=== PATIENT | male | born 1945 | race Caucasian/White ===

== ENCOUNTER → 2016-04-28 | Outpatient (CLI) | payer OTHER ==
[~2016-04-28] MED LIST: ADVIN10/60 INH; ADVIN50/60 INH; AGG PO; ALPR-411 PO; ASPI81TA28 PO; ATOR80TA PO; BUSP-8 PO; BUSP15TA70 PO; CALCTAB5 PO; FLUO10CA48 PO; FLUO20CA20 PO; FURO40TA3 PO; IPRA1AER2 INH; ISOS60TA PO; LISI-725 PO; METF-384 PO; MULT-506 PO; OMEG10007 PO; OMEP20CA9 PO; POTA1TAB PO; PSYL55.43 PO; ROSU40TA PO; TIOTCAP INH; [UNRECOGNIZED DRUG - CODE] PO
[2016-04-28 10:01] LABS: BLOOD UREA NITROGEN 21 mg/dl (7-18); BUN/CREATININE RATIO 17.8 (10-20); CALCIUM 9.5 mg/dl (8.5-10.1); CARBON DIOXIDE 25 mmol/L (21-32); CHLORIDE 107 mmol/L (98-107); GLUCOSE 99 mg/dl (70-99); SODIUM 142 mmol/L (136-145)
== END | disposition home or self-care (01) ==
LOC: C.LAB1850 08:45
PROVIDERS: ATTEND Internal Medicine Pulmonary Disease
DX: R06.09 Other forms of dyspnea (principal)

== ENCOUNTER → 2016-05-11 | Outpatient (CLI) | payer OTHER ==
--- NOTE | 2016-05-12 16:42 | DIAGNOSTIC IMAGING REPORT ---
PET/CT HISTORY: PULMONARY NODULE TECHNIQUE: PET/CT was performed from the base of the skull through the pelvis following the intravenous administration of 14.4 mCi of F18-FDG. Non-contrast CT imaging was performed over the same range without breath-hold for attenuation correction of PET images and anatomic correlation, but not for primary interpretation as it is not of standard diagnostic quality. CT DOSE: 744.05 mGycm COMPARISON: Chest CT 05/01/2016. FINDINGS: HEAD AND NECK: There is no FDG-avid disease or significant lymphadenopathy in the imaged portions of the head and the neck. Scattered areas of FDG uptake within the nasopharynx/oropharynx, and right carotid bifurcation is likely physiologic. CHEST: There is again noted an irregular groundglass 2.4 x 2.0 cm density within the right lower lobe. Stable 7 mm nodule within the left lower lobe on image 92. The 3 mm subpleural nodule within the right lower lobe on image 98 remains stable. A 2 mm right apical pulmonary nodule on image 67 remains stable. Stable 8 mm groundglass nodule within the left lower lobe on image 121. None of these nodules demonstrate abnormal FDG uptake. Emphysema. A few scattered punctate calcified granulomas. ABDOMEN/PELVIS: Below the diaphragm, tracer is distributed physiologically in the gastrointestinal and genitourinary tracts. There is no significant lymphadenopathy and no FDG-avid disease. Punctate stone within the right kidney. No hydronephrosis. No adrenal gland masses. A 3.6 cm infrarenal abdominal aortic aneurysm. Tiny fat-containing right inguinal hernia. Colonic diverticulosis. Small fat-containing suprasellar hernia. MUSCULOSKELETAL: There is no FDG-avid or destructive bone lesion. Patchy sclerosis within the right femoral head consistent with avascular necrosis. IMPRESSION: 1. No change in the pulmonary nodules as described above. These do not demonstrate abnormal FDG uptake. However, the majority of these are likely too small to characterize by PET imaging. Continued chest CT follow-up as described on the prior study is recommended. In addition, the dominant 2.4 x 2.0 cm groundglass opacity within the right lower lobe does not demonstrate FDG uptake. Regardless, this remains suspicious for a low-grade adenocarcinoma. Typically, these may not demonstrate FDG uptake. Therefore, bronchoscopy should be considered for further evaluation. 2. A 3.6 cm infrarenal abdominal aortic aneurysm. 3. Avascular necrosis within the right femoral head. Electronically signed by: Keyur Neumann M.D. 05/12/2016 4:40 PM Dictated Date/Time: 05/11/2016 1:48 PM
== END | disposition home or self-care (01) ==
LOC: C.PET 07:23
PROVIDERS: ATTEND Internal Medicine Pulmonary Disease
DX: R91.8 Other nonspecific abnormal finding of lung field (principal); I71.4 Abdominal aortic aneurysm, without rupture; M87.051 Idiopathic aseptic necrosis of right femur

== ENCOUNTER → 2016-05-20 | Day surgery (SDC) | payer OTHER ==
[2016-05-12 14:49] VITALS: Ht 177.8 cm; Wt 96.4 kg
[~2016-05-20] VITALS: Ht 177.8 cm; Wt 96.4 kg
[~2016-05-20] MED LIST changes: -ADVIN10/60 INH; -BUSP15TA70 PO; +FENTANYL CITRATE INJ 50 MCG/1 ML 2 ML VIAL ONE; +LIDOCAINE HCL 2% 2 ML VIAL (20MG/ML) ONE; +MIDAZOLAM HCL 1 MG/ML 2ML VIAL ONE; +PHENYLEPHRINE 100MCG/ML 5ML SYR ONE; +PROPOFOL IV EMULSION 10 MG/ML 20 ML VIAL IV ONE; -ROSU40TA PO; +SODIUM CHLORIDE 0.9% 500ML 500 ML IV ONE; -[UNRECOGNIZED DRUG - CODE] PO
--- NOTE | 2016-05-20 08:31 | Endo History and Physical ---
History & Physical Date of Service: May 20, 2016. Chief Complaint: Hx colon polyps Referring Physician: Jose Barrios History of Present Illness 70 yo presenting for polyp surveillance Past Surgical History Hx Cardiac Surgery: Yes (CARDIAC CATH-NO [id number] YRS AGO) Hx Internal Defibrillator: No Hx Pacemaker: No Hx Abdominal Surgery: Yes (UMBILICAL HERNIA REPAIR) Hx of Implantable Prosthesis: No Hx Post-Op Nausea and Vomiting: No Hx Cancer Surgery: No Hx Thoracic Surgery: No Hx Orthopedic: Yes (OPEN L SHOULDER SURG, OPEN R SHOULDER SURG) Hx Urinary Tract Surgery: No Family History Colon CA Social History Smoking Status: Current Every Day Smoker Hx Substance Use: No Hx Alcohol Use: No Allergies Coded Allergies: Acetaminophen (Verified Adverse Reaction, Mild, HEADACHE, 05/15/16) Uncoded Allergies: FRESH ANIMAL BLOOD (Adverse Reaction, Unknown, EYES WILL SWELL/CLOSE SHUT WHEN A FEW FEET AWAY, 05/15/16) Current Medications Reported Home Medications Medications Dose Route/Sig Max Daily Dose Days Date Category Dose Instructions Fluoxetine (Fluoxetine Hcl (Pmdd)) 20 Mg Cap 1 Cap PO QPM 90 05/15/16 Reported Lipitor (Atorvastatin Calcium) 80 Mg Tab 80 Mg PO QAM 05/12/16 Reported TAKE AM SURGERY SIP WATER [place]-3 (Fish Oil) 1 Ea Cap 1 Cap PO QAM 05/12/16 Reported STOP 7-10 DAYD BEFORE SURG Buspirone Hcl 10 Mg Tab 7.5 Mg PO HS 05/12/16 Reported Buspirone Hcl 10 Mg Tab 15 Mg PO QAM 05/12/16 Reported TAKE AM SURGERY SIP WATER Advair Diskus 500/50 60 Dose (Fluticasone Prop/Salmeterol) 1 Ea Aerp 1 Puff INH BID 05/12/16 Reported TAKE AM SURG Prozac (Fluoxetine HCl) 10 Mg Cap 10 Mg PO QAM 11/24/13 Reported TAKE AM SURGERY SIP WATER Potassium Gluconate 595 Mg Tab 1 Tab PO QAM 11/24/13 Reported HOLD AM SURG Combivent Respimat (Ipratropium-Albuterol) 1 Aer Aer 2 Puffs INH QID PRN 05/12/13 Reported USE AM SURG IF NEEDED Imdur (Isosorbide Mononitrate) 60 Mg Tab 60 Mg PO QAM 05/12/13 Reported TAKE AM SURG SIP WATER Lasix (Furosemide) 40 Mg Tab 40 Mg PO QAM 05/04/13 Reported HOLD AM SURG Prilosec (Omeprazole) 20 Mg Cap 20 Mg PO QAM 05/04/13 Reported TAKE AM SURG SIP WATER Aggrenox 200MG/25MG (Aspirin-Dipyridamole 25MG/200MG) 1 Cap Cap 1 Cap PO QAM 05/04/13 Reported PT WILL FOLLOW INSTRUCTIONS FROM SURGEON Glucophage (Metformin Hcl) 1,000 Mg Tab 1,000 Mg PO QAM 05/04/13 Reported HOLD 48 HRS BEFORE SURG Spiriva Handihaler (Tiotropium Ashton) 18 Mcg/ Aerp 1 Cap INH QAM 05/04/13 Reported TAKE AM SURG Xanax (Alprazolam) 0.5 Mg Tab 0.5 Mg PO Q6H PRN 05/04/13 Reported MAY TAKE AM SURGERY SIP WATER Metamucil Powder (Psyllium Hydrophilic Mucilloid) Powd 1 Cap PO QAM 05/04/13 Reported Aspirin Ec (Aspirin) 81 Mg Tab 81 Mg PO QAM 05/04/13 Reported PT WILL FOLLOW INSTRUCTIONS FROM SURGEON Zestril (Lisinopril) 20 Mg Tab 20 Mg PO QAM 11/19/05 Reported HOLD AM SURG Caltrate (Calcium) 600 Mg Tab 600 Mg PO QAM 11/19/05 Reported Multivitamin (Multivitamins) Tab 1 Tab PO QAM 11/19/05 Reported NOTE: WITH LYCOPENE Vital Signs Weight (Kilograms): 96.36 Height (Feet): 5 Height (Inches): 10 Physical Exam General Appearance: WD/WN, no apparent distress Respiratory/Chest: Respiratory effort: no dyspnea Auscultation: breath sounds normal, CTA except as noted, no wheezing Cardiovascular: Apical Impulse: not displaced Heart Auscultation: RRR, normal S1, normal S2 Abdomen: Bowel Sounds: normal Inspection & Palpation: soft, non-distended, no tenderness, guarding & rebound Assessment and Plan 70 yo presenting for colon polyp f/u for colonoscopy
--- NOTE | 2016-05-20 09:10 | Discharge Instructions ---
Endoscopy Patient Instructions Date / Procedure(s) Performed May 20, 2016. Colonoscopy Allergy Information Coded Allergies: Acetaminophen (Verified Adverse Reaction, Mild, HEADACHE, 05/15/16) Uncoded Allergies: FRESH ANIMAL BLOOD (Adverse Reaction, Unknown, EYES WILL SWELL/CLOSE SHUT WHEN A FEW FEET AWAY, 05/15/16) Discharge Date / Findings May 20, 2016. Multiple polyps Suboptimal prep Medication Instructions Stopped Medication(s): Metformin, vitamins Provider Instructions Activity Restrictions - No exercising or heavy lifting for 24 hours. - Do not drink alcohol the day of the procedure. - Do not drive a car or operate machinery until the day after the procedure. - Do not make any important decisions or sign important papers in 24 hours after the procedure. Following Day: - Return to full activity which may include returning to work/school. Diet Start your diet with liquids and light foods (jello, soup, juice, toast). Then eat your usual diet if not nauseated. Treatment For Common After Affects For mild abdominal pain, bloating, or excessive gas: - Rest - Eat lightly - Lie on right side Follow-Up Information Follow-up with Jose Barrios as scheduled Anesthesia Information What You Should Know You have had a procedure that required some medicine to reduce anxiety and discomfort. This treatment is called moderate sedation. After receiving the treatment, you may be sleepy, but you will be able to breathe on your own. The effects of the treatment may last for several hours. Follow these instructions along with Activity/Diet recommendations noted above: * Do NOT do anything where dizziness or clumsiness would be dangerous. * Rest quietly at home today, then you can be up and about tomorrow. * Have a responsible person stay with you the rest of today. * You may have had an I.V. today. If so, you may take the dressing off later today. Recommendations Call your doctor if: * Trouble breathing * Continuous vomiting for more than 24 hours * Temperature above 101 degrees * Severe abdominal pain or bloating * Pain not relieved by pain medicine ordered * There is increased drainage or redness from any incision * A large amount of rectal bleeding greater than 2-3 tablespoons. (If you had a polyp/s removed or have hemorrhoids, a small amount of blood - from the rectum is to be expected.) * You have any unanswered questions or concerns. IN THE EVENT OF A SERIOUS EMERGENCY, GO TO THE NEAREST EMERGENCY ROOM Your discharge instructions were prepared by provider Lyle Evans. Patient Instructions Signature Page Walter Plattstler Patient (or Guardian) Signature/Date: I have read and understand the instructions given to me by my caregivers. Caregiver/RN/Doctor Signature/Date: The above-named patient and/or guardian has received patient instructions on this date. + Original Patient Signature Page (only) stays with chart. Please make copy for patient.
--- NOTE | 2016-05-20 09:29 | Anesthesiology Progress Note ---
Anesthesia Post Op Note Date & Time May 20, 2016 at 09:29 Vital Signs Pain Intensity: 0 Vital Signs Past 12 Hours Date Time Temp Pulse Resp B/P Pulse Ox O2 Delivery O2 Flow Rate FiO2 05/20/16 09:12 72 16 119/53 95 Room Air 05/20/16 08:17 36.6 95 20 120/66 94 Room Air Notes Mental Status: alert / awake / arousable, participated in evaluation Pt Amnestic to Procedure: Yes Nausea / Vomiting: adequately controlled Pain: adequately controlled Airway Patency, RR, SpO2: stable & adequate BP & HR: stable & adequate Hydration State: stable & adequate Anesthetic Complications: no major complications apparent
[2016-05-20 09:43] VITALS: BP 114/68; PULSE 82; O2SAT 95
--- NOTE | 2016-05-20 10:17 | GI REPORT ---
Procedure Date: 05/20/2016 8:36 AM Procedure: Colonoscopy Indications: High risk colon cancer surveillance: Personal history of colonic polyps Medicines: Midazolam 2 mg IV, Fentanyl 200 micrograms IV Complications: No immediate complications. Estimated blood loss: None. Estimated Blood Loss: Estimated blood loss: none. Procedure: Pre-Anesthesia Assessment: - Pre-Anesthesia Assessment: - Prior to the procedure, a History and Physical was performed, and patient medications, allergies and sensitivities were reviewed. The patient's tolerance of previous anesthesia was reviewed. Please see IT MOVES IT for complete details. - The risks and benefits of the procedure and the sedation options and risks were discussed with the patient. All questions were answered and informed consent was obtained. - Patient identification and proposed procedure were verified prior to the procedure by the physician and the nurse. The procedure was verified in the pre-procedure area in the procedure room. After obtaining informed consent, the endoscope was passed carefully and meticuously under direct vision and only advanced when the lumen was clearly identified, C02 insuflation was utilized throughout the entirity of the procedure. Throughout the procedure, the patient's blood pressure, pulse, and oxygen saturations were monitored continuously. After I obtained informed consent, the scope was passed under direct vision. Throughout the procedure, the patient's blood pressure, pulse, and oxygen saturations were monitored continuously. The scope was introduced through the anus and advanced to the cecum, identified by appendiceal orifice and ileocecal valve. The colonoscopy was performed without difficulty. The patient tolerated the procedure well. The quality of the bowel preparation was poor. Findings: A 4 mm polyp was found in the ascending colon. The polyp was sessile. The polyp was removed with a cold snare. Resection and retrieval were complete. A 7 mm polyp was found in the ascending colon. The polyp was sessile. The polyp was removed with a saline injection-lift technique using a cold snare. Resection and retrieval were complete. Three sessile polyps were found in the descending colon. The polyps were 2 to 4 mm in size. These polyps were removed with a cold snare. Resection and retrieval were complete. Two sessile polyps were found in the sigmoid colon. The polyps were 2 to 4 mm in size. These polyps were removed with a cold snare. Resection and retrieval were complete. Multiple small-mouthed diverticula were found in the sigmoid colon. Internal hemorrhoids were found during retroflexion. Tattoo's were visualized in the descending, sigmoid, and rectum, all overlying mucosa normal. Impression: - Preparation of the colon was poor. - One 4 mm polyp in the ascending colon, removed with a cold snare. Resected and retrieved. - One 7 mm polyp in the ascending colon, removed using injection-lift and a cold snare. Resected and retrieved. - Three 2 to 4 mm polyps in the descending colon, removed with a cold snare. Resected and retrieved. - Two 2 to 4 mm polyps in the sigmoid colon, removed with a cold snare. Resected and retrieved. - Diverticulosis in the sigmoid colon. - Internal hemorrhoids. Recommendation: - Repeat colonoscopy date to be determined after pending pathology results are reviewed for surveillance. - With prolonged preparation - Discharge patient to home (with escort). Lyle Evans MD 05/20/2016 9:11:03 AM This report has been signed electronically. Note Initiated On: 05/20/2016 8:36 AM
== END | disposition home or self-care (01) ==
LOC: C.GI 07:28
PROVIDERS: ATTEND Internal Medicine
DX: Z12.11 Encounter for screening for malignant neoplasm of colon (principal); Z86.010 Personal history of colon polyps; D12.2 Benign neoplasm of ascending colon; D12.4 Benign neoplasm of descending colon; D12.5 Benign neoplasm of sigmoid colon; Z80.0 Family history of malignant neoplasm of digestive organs; K57.30 Diverticulosis of large intestine without perforation or abscess without bleeding; K64.8 Other hemorrhoids; Z87.891 Personal history of nicotine dependence; Z95.5 Presence of coronary angioplasty implant and graft; Z98.890 Other specified postprocedural states; Z79.82 Long term (current) use of aspirin

== ENCOUNTER 2016-05-27 05:43 | Day surgery (SDC) | payer OTHER ==
[2016-05-14 11:22] LABS: COMPLETE YES; EOS % 0.1 %; HEMATOCRIT 45.3 % (42-52); IG% 0.3 %; LYMPH % 9.7 %; MEAN CELL VOLUME 89.9 fL (80-100); MEAN CORPUSCULAR HEMOGLOBIN 31.3 pg (25-34); MEAN CORPUSCULAR HGB CONC 34.9 g/dl (32-36); MONO % 5.4 %; NEUT % 84.5 %; PLATELET COUNT 221 K/uL (130-400); RED BLOOD COUNT 5.04 M/uL (4.7-6.1); WHITE BLOOD COUNT 11.38 K/uL (4.8-10.8)
[~2016-05-27] VITALS: Ht 177.8 cm; Wt 96.4 kg
[~2016-05-27 05:43] MED LIST changes: -FENTANYL CITRATE INJ 50 MCG/1 ML 2 ML VIAL ONE; -LIDOCAINE HCL 2% 2 ML VIAL (20MG/ML) ONE; -MIDAZOLAM HCL 1 MG/ML 2ML VIAL ONE; -PHENYLEPHRINE 100MCG/ML 5ML SYR ONE; -PROPOFOL IV EMULSION 10 MG/ML 20 ML VIAL IV ONE; -SODIUM CHLORIDE 0.9% 500ML 500 ML IV ONE
[2016-05-27] MEDS ORDERED: LACTATED RINGER'S 1000ML 1,000 ML IV SCH (06:00)
[2016-05-27 06:35] VITALS: BP 133/66; PULSE 95; TEMP 36.8; O2SAT 96; Ht 177.8 cm; Wt 96.4 kg
[2016-05-27] MEDS ORDERED: ROCURONIUM BROMIDE 10 MG/ML 5 ML VIAL ONE (06:41)
[2016-05-27] MEDS ORDERED: CLINDAMYCIN PHOS 150 MG/ML 2 ML VIAL ONE ×2 (06:41→08:44)
[2016-05-27] MEDS ORDERED: NEOSTIGMINE METHYLSULFATE 5 MG/5 ML SYR ONE (06:46)
[2016-05-27] MEDS ORDERED: GLYCOPYRROLATE INJ 0.2 MG/ML VIAL ONE (06:46)
[2016-05-27] MEDS ORDERED: LIDOCAINE HCL 2% 2 ML VIAL (20MG/ML) ONE (06:46)
[2016-05-27] MEDS ORDERED: PROPOFOL IV EMULSION 10 MG/ML 20 ML VIAL IV ONE (06:46)
[2016-05-27] MEDS ORDERED: DEXAMETHASONE SOD INJ 4 MG/ML VIAL ONE (06:46)
[2016-05-27] MEDS ORDERED: ONDANSETRON INJ 2 MG/ML 2 ML VIAL ONE (06:46)
[2016-05-27] MEDS ORDERED: FENTANYL CITRATE INJ 50 MCG/1 ML 2 ML VIAL ONE (06:47)
[2016-05-27] MEDS ORDERED: MIDAZOLAM HCL 1 MG/ML 2ML VIAL ONE (07:03)
--- NOTE | 2016-05-27 08:03 | History & Physical Bridge Note ---
H&P Re-Evaluation Bridge Note: I have examined the patient, reviewed the History & Physical and in the interval since the performance of the History & Physical I have noted the following changes of clinical significance: No changes noted
[2016-05-27] MEDS ORDERED: EpHEDrine SULFATE 50MG/5ML SYR ONE (08:28)
[2016-05-27] MEDS ORDERED: ETOMIDATE 2 MG/ML 20 ML VIAL IV ONE (08:29)
[2016-05-27] MEDS ORDERED: VASOPRESSIN 20 UNIT/ML VIAL ONE (08:38)
[2016-05-27] MEDS ORDERED: LARYING-O-JET KIT (LTA) EXT ONE ×2 (08:43)
--- NOTE | 2016-05-27 08:46 | Discharge Instructions ---
Discharge Instructions Visit Reason for Visit: Bilateral Lung Masses Discharge Discharge Diagnosis / Problem: Bilateral Lung Masses Discharge Goals Goal(s): Learn about illness Activity Recommendations Activity Limitations: resume your previous activity (in 24 hours) Anesthesia . Post Anesthesia Instructions: If you have had General Anesthesia or IV Sedation: * Do not drive today. * Resume driving when surgeon permits. * Do not make important decisions or sign legal documents today. * Call surgeon for: 1. Temperature elevations greater than 101 degrees F. 2. Uncontrollable pain. 3. Excessive bleeding. 4. Persistent nausea and vomiting. 5. Medication intolerance (nausea, vomiting or rash). * For nausea and vomiting use only clear liquids such as: tea, soda, bouillon until nausea subsides, then gradually increase diet as tolerated. * If you have any concerns or questions, call your surgeon's office. If physician is unavailable and it is an emergency, call 911 or go to the nearest emergency room. . Instructions / Follow-Up Instructions / Follow-Up 1. You may cough up some blood. Call physician if excessive amount noted. 2. Keep your scheduled appointment with Dr. Rai on June 09 @ 11:00. Diet Recommendations Recommended Home Diet: resume previous diet Procedures Procedures Performed: Endobronchial Ultrasound; Navigational Bronchoscopy with Biopsies Pending Studies Studies pending at discharge: no Medical Emergencies . Who to Call and When: Medical Emergencies: If at any time you feel your situation is an emergency, please call 911 immediately. . Non-Emergent Contact . . "Provider Documentation" section prepared by Andry Pratt.
[2016-05-27] MEDS ORDERED: METOPROLOL TARTRATE 1 MG/ML VIAL ONE (08:51)
--- NOTE | 2016-05-27 09:48 | DIAGNOSTIC IMAGING REPORT ---
CHEST 1 VIEW FRONTAL CLINICAL HISTORY: NAVIGATIONAL BRONCH nodule TECHNIQUE: Image intensifier COMPARISON STUDY: None FINDINGS: Image intensifier utilized for navigational bronchoscopy IMPRESSION: Image intensifier utilized for navigational bronchoscopy Electronically signed by: Zack Rizzo M.D. 05/27/2016 9:47 AM Dictated Date/Time: 05/27/2016 9:47 AM
[2016-05-27] MEDS ORDERED: ATROPINE SULFATE 0.1 MG/ML 5ML SYR IV PRN (10:15)
[2016-05-27] MEDS ORDERED: PROMETHAZINE HCL INJ 12.5 MG in SODIUM CHLORIDE 0.9% 50ML 50 ML IV PRN (10:15)
[2016-05-27] MEDS ORDERED: ONDANSETRON INJ 2 MG/ML 2 ML VIAL IV PRN (10:15)
[2016-05-27] MEDS ORDERED: NALOXONE HCL 0.4 MG/1 ML VIAL/CARP IV PRN (10:15)
[2016-05-27] MEDS ORDERED: EpHEDrine SULFATE INJ 50 MG/ML AMP IV PRN (10:15)
--- NOTE | 2016-05-27 10:18 | Anesthesiology Progress Note ---
Anesthesia Post Op Note Date & Time May 27, 2016 at 10:18 Vital Signs Pain Intensity: 0 Vital Signs Past 12 Hours Date Time Temp Pulse Resp B/P Pulse Ox O2 Delivery O2 Flow Rate FiO2 05/27/16 10:10 83 16 112/68 98 Mask 10 05/27/16 10:00 84 16 134/64 98 Mask 10 05/27/16 09:50 36.1 84 16 150/82 99 Mask 10 05/27/16 06:35 36.8 95 20 133/66 96 Room Air Notes Mental Status: alert / awake / arousable, participated in evaluation Pt Amnestic to Procedure: Yes Nausea / Vomiting: adequately controlled Pain: adequately controlled Airway Patency, RR, SpO2: stable & adequate BP & HR: stable & adequate Hydration State: stable & adequate Anesthetic Complications: no major complications apparent
--- NOTE | 2016-05-27 10:27 | DIAGNOSTIC IMAGING REPORT ---
CHEST ONE VIEW PORTABLE CLINICAL HISTORY: s/p FOB postoperative evaluation COMPARISON STUDY: 07/29/2015 FINDINGS: No evidence pneumothorax. Right infrahilar mass previously described. Diaphragms are smooth. IMPRESSION: No evidence of pneumothorax. Slight prominence pulmonary vasculature. Unchanging right infrahilar and to a lesser extent left basilar densities. Electronically signed by: Zack Rizzo M.D. 05/27/2016 10:25 AM Dictated Date/Time: 05/27/2016 10:24 AM
[2016-05-27 10:40] VITALS: BP 94/50; PULSE 77; TEMP 36.6; O2SAT 93
[2016-05-27 11:10] VITALS: BP 100/53; PULSE 74; TEMP 36.1; O2SAT 94
[2016-05-27 11:40] VITALS: BP 102/48; PULSE 92; TEMP 36.6; O2SAT 92
--- NOTE | 2016-05-27 16:20 | OPERATIVE REPORT ---
DATE OF OPERATION: 05/27/2016 DATE OF PROCEDURE: 05/27/2016. PROCEDURE: 1. Endobronchial ultrasound with biopsy. 2. Navigational bronchoscopy with biopsy right lower and right middle lobe mass. SURGEON: Dr. Rai. DIRECTOR SALES: Kishore Finney, respiratory therapy. ANESTHESIA: General anesthesia with endotracheal intubation. INDICATION FOR PROCEDURE AND FINDINGS: This is a 70-year-old male who is still working, who is a heavy cigarette smoker. The patient was noted to have a mass in his right lower lobe which and also has a small nodule left lower lobe. I am concerned about this right lower lobe mass. I felt we should biopsy both these and also do an endobronchial ultrasound. He is at high risk at developing a carcinoma of the lung. On 05/27/2016 I took the patient to the operating room and did an uncomplicated endobronchial ultrasound. I biopsied several lymph node stations and got lymph nodes back. His lymph nodes were rather small. I did go down to the mass in the right lower lobe. We obtained good biopsies of this. It appeared we were right in the middle of this by radial ultrasound. The mass on the left was small and peripheral. I went out to it, but did not feel we had very good localization. We worked on this for a long period of time and simply could not get to this lesion the way I wanted to. I did do brushings and washings. He tolerated it well. PROCEDURE: The patient was brought to the operating room and placed in supine position. General anesthesia induced and endotracheal intubation was performed. After giving prophylactic antibiotics and following appropriate timeout, the endobronchial ultrasound scope was placed. I did not see any endobronchial lesions. He had mildly inflamed airways. While inflating the balloon, I started off on the left side first. I biopsied the level 10, level 4 lymph node station and the level 7 station from the left. I then biopsied a level 7 lymph node station from the right and did level 10 and attempted to do level 4. After multiple biopsies from all these sites I irrigate the airways out. I saw no endobronchial lesions and really no bleeding. I deflated the balloon and removed the scope. Regular fiberoptic bronchoscope was then placed. Closely inspected down to the tertiary airways and saw no endobronchial lesions. The navigational probe was placed and the airways were registered. I then went out to the right lower lobe mass. We were able to navigate this quite easily. Radial ultrasound showed we were in proper position. I did brushings, needle biopsies with aspiration and then forceps biopsies with touch preps. We then did washings of this area. There was no significant bleeding in this area. Upon pulling back I then went to the left side. Upon going out to this mass I tried for several minutes to get the correct position. I really had difficulty. I finally got close enough, we were not at a very good angle. I did do brushings however I thought he was high risk for a pneumothorax by doing a needle biopsy so I held off. We did do washings. I then removed the bronchoscope slowly and inspected all the airways again and saw no evidence of bleeding. He tolerated it quite well. I attest to the content of the Intraoperative Record and any orders documented therein. Any exceptions are noted below. DAVID
== END 2016-05-27 11:57 | disposition home or self-care (01) ==
LOC: C.ACU 05:43
PROVIDERS: ATTEND Surgery
DX: R91.1 Solitary pulmonary nodule (principal); J45.909 Unspecified asthma, uncomplicated; J44.9 Chronic obstructive pulmonary disease, unspecified; F17.210 Nicotine dependence, cigarettes, uncomplicated; M19.90 Unspecified osteoarthritis, unspecified site; E78.5 Hyperlipidemia, unspecified; I10 Essential (primary) hypertension; I25.9 Chronic ischemic heart disease, unspecified; I73.9 Peripheral vascular disease, unspecified; F43.10 Post-traumatic stress disorder, unspecified; Z82.3 Family history of stroke; Z83.3 Family history of diabetes mellitus; Z79.82 Long term (current) use of aspirin

== ENCOUNTER → 2016-07-30 | Outpatient (CLI) | payer OTHER ==
[~2016-07-30] MED LIST changes: -FLUO20CA20 PO
--- NOTE | 2016-07-30 09:28 | DIAGNOSTIC IMAGING REPORT ---
CT SCAN OF THE CHEST WITHOUT IV CONTRAST CLINICAL HISTORY: Pulmonary nodule. COMPARISON STUDY: Chest CT scan dated 05/01/2016. PET/CT dated 05/11/2016. TECHNIQUE: CT scan of the thorax was performed from the thoracic inlet to the upper abdomen. Images are reviewed in the axial, sagittal, and coronal planes. IV contrast was not administered for this examination as per the referring clinician. CT DOSE: 486.47 mGycm FINDINGS: Thyroid: Imaged portions of the thyroid gland are normal in size and attenuation. Thoracic aorta: There is advanced atherosclerotic calcification of the thoracic aorta, which is normal in caliber and demonstrates standard 3-vessel arch anatomy. Heart: The heart is top normal in size and without pericardial effusion. The coronary arteries and aortic valve leaflets are densely calcified. Lungs and pleural spaces: There is moderate emphysematous change. No airspace consolidation or pleural effusion is identified. Dependent atelectasis is noted. There are scattered calcified granulomas. The trachea and central airways are clear. There is an 8 mm slightly irregular left lower lobe pulmonary nodule seen on axial image #130. This has not appreciably changed from 05/01/2016. Again seen is a groundglass lesion in the right lower lobe on image #185. This measures 1.7 x 2.5 cm (producing measured 2.0 x 2.4 cm). A 3 mm right apical nodule on image #44 is unchanged. Mediastinum: There is no mediastinal lymphadenopathy. Lisa: Not well assessed without IV contrast. There are calcified right hilar lymph nodes. Axillae: There is no axillary lymphadenopathy. Upper abdomen: There is a tiny hiatal hernia. There is asymmetric cortical atrophy of the left kidney as compared to the right. A cyst is suggested in the upper pole the right kidney. Skeletal structures: The skeletal structures are osteopenic. Degenerative change is present in the shoulders and thoracic spine. No lytic or blastic bony lesions are seen. IMPRESSION: 1. Emphysema. 2. No airspace consolidation or pleural effusion is identified. 3. There has been no significant change in appearance of a 2.5 cm groundglass lesion in the right lower lobe as compared to studies dated May 08, 2016. This should be considered low-grade neoplasm until proven otherwise. 4. An 8 mm left lower lobe pleural-based nodule as well as a 3 mm right apical nodule are unchanged from previous. Continued follow-up is recommended. 5. No mediastinal lymphadenopathy is seen. Please refer to below summary of Fleischner criteria recommendations for follow-up of incidental CT nodules (Michelle Ward, Guidelines for management of small pulmonary nodules detected on CT scans: A statement from the Fleischner Society, Radiology 237: [phone].) SOLID NODULES Solitary nodule size: <6 mm * low risk patients: no follow-up needed * high risk patients: optional CT at 12 months Solitary nodule size: 6-8 mm * low risk patients: follow-up at 6-12 months, then consider further follow-up at 18-24 months * high risk patients: initial follow-up CT at 6-12 months and then at 18-24 months if no change Solitary nodule size: >8 mm * either low or high risk patients - consider follow-up CT at 3 months, and/or CT-PET, and/or biopsy Multiple nodules size: <6 mm * low risk patients: no routine follow-up * high risk patients: optional CT at 12 months Multiple nodules size: 6-8 mm * low risk patients: follow-up at 3-6 months, then consider further follow-up at 18-24 months * high risk patients: follow-up at 3-6 months, then at 18-24 months if no change Multiple nodules size: >8 mm * low risk patients: follow-up at 3-6 months, then consider further follow-up at 18-24 months * high risk patients: follow-up at 3-6 months, then at 18-24 months if no change Note: newly detected indeterminate nodule in persons 35 years of age or older. * low risk patients: minimal or absent history of smoking and/or other known risk factors * high risk patients: history of smoking or of other known risk factors (e.g. first degree relative with lung cancer, or exposure to asbestos, radon, uranium) * if a nodule up to 8 mm is partly solid or is ground glass further follow-up is required after 24 months to exclude possible slow growing adenocarcinoma (DOE) SUBSOLID NODULES Solitary pure ground-glass nodule * nodule size <6 mm - no CT follow-up required * nodule size >=6 mm - follow-up CT at 6-12 months, then every 2 years until 5 years Solitary part-solid nodule * nodule size <6 mm - no CT follow-up required * nodule size >=6 mm - follow-up CT at 3-6 months. If unchanged, and solid component remains <6 mm, then annual follow-up for 5 years Multiple subsolid nodules * nodule size <6 mm - follow-up CT at 3-6 months, consider further follow-up at 2 and 4 years if stable * nodule size >=6 mm - follow-up CT at 3-6 months, subsequent management based on the most suspicious nodule(s) Electronically signed by: Sacha Wood M.D. 07/30/2016 9:26 AM Dictated Date/Time: 07/30/2016 9:16 AM
== END | disposition home or self-care (01) ==
LOC: C.CTS 07:49
PROVIDERS: ATTEND Surgery
DX: R91.1 Solitary pulmonary nodule (principal); J43.9 Emphysema, unspecified

== ENCOUNTER 2017-05-03 09:54 | Day surgery (SDC) | payer OTHER ==
[2017-04-26 14:25] VITALS: BMI 29.0
[~2017-05-03] VITALS: Ht 177.8 cm; Wt 93.6 kg
--- NOTE | 2017-05-03 07:45 | HISTORY & PHYSICAL EXAMINATION ---
DATE OF ADMISSION: 05/03/2017 CHIEF COMPLAINT: Left shoulder pain. HISTORY OF PRESENT ILLNESS: This is a 71-year-old male patient of Dr. Lebron'michelet complaining of chronic left shoulder pain for approximately 7-8 years now. This was worsened from a fall approximately a month ago at home. MRI confirmed a rotator cuff tear. He does have a history of rotator cuff repair of about 15 years ago. Symptoms are progressively getting worse with increased pain and weakness and MRI confirmed the diagnosis. The patient has elected to proceed with a left shoulder arthroscopic subacromial decompression, distal clavicle excision and debridement of rotator cuff. PAST MEDICAL HISTORY: Coronary artery disease status post an MT in 1988, heart murmur, asthma, COPD, use of CPAP, anxiety, history of a TIA, posttraumatic stress disorder, diabetes mellitus, rheumatoid arthritis, osteoarthritis, sciatica, acid reflux, obesity. SOCIAL HISTORY: 1-1/2 packs per day, nondrinker. PAST SURGICAL HISTORY: Back surgery, right shoulder arthroscopy, left shoulder arthroscopy x2. FAMILY HISTORY: Noncontributory. REVIEW OF SYSTEMS: The patient complains of chronic left shoulder pain and weakness. Otherwise, denies any shortness of breath, chest pain, nausea, vomiting or any other joint complaints. MEDICATIONS: Include omeprazole 20 mg daily, lisinopril 20 mg daily, furosemide 40 mg daily, Aggrenox 200/25 b.i.d., buspirone 15 mg b.i.d., metformin 1000 mg daily, multivitamin daily, calcium 600 plus D daily, calcium 200 units daily, Lovaza 1 gram 2 capsules p.o. b.i.d., Metamucil as needed, isosorbide dinitrate daily, aspirin 81 mg daily, atorvastatin 80 mg daily, fluoxetine 20 mg q.a.m., Spiriva inhaler 18 mcg 1 inhalation daily, Ventolin HFA 90 mcg 2 puffs q. 4-6 hours p.r.n., Breo Ellipta 100 mcg/20 1 puff daily, tramadol as needed. ALLERGIES: ACETAMINOPHEN, WHICH HAS CAUSED HEADACHES. PHYSICAL EXAMINATION: GENERAL: Well-developed, well-nourished 71-year-old male in no acute distress. He is alert and oriented x3 and pleasant. HEENT: Normocephalic, atraumatic. Extraocular motions are intact. Pupils are equal and reactive to light. HEART: Regular rate and rhythm, no murmurs appreciated. LUNGS: Clear. ABDOMEN: Soft, nontender, bowel sounds present. EXTREMITIES: Left shoulder reveals external rotation of 3/5 strength, 4/5 strength with internal rotation, 3/5 strength abduction, active range of motion to 160, passively to 180. He has crepitation with passive range of motion and pain. NEUROLOGIC: Neurovascularly, he is intact in his left upper extremity. DIAGNOSES: Left shoulder rotator cuff tear, chronic impingement and acromioclavicular arthritis. He also has a history of coronary artery disease status post an myocardial infarction in 1988, heart murmur, asthma, chronic obstructive pulmonary disease, use of CPAP, anxiety, history of transient ischemic attack. He has posttraumatic stress disorder, diabetes mellitus, rheumatoid arthritis, osteoarthritis, spine problems, sciatica, acid reflux and obesity. PLAN: The patient was advised of his diagnosis. Indications, risks, benefits, postop course have all been reviewed. The patient wishes to proceed with a left shoulder arthroscopic subacromial decompression, distal clavicle excision and debridement of rotator cuff. Necessary consent forms, preoperative testing and clearances will be obtained.
[~2017-05-03 09:54] MED LIST changes: -ALPR-411 PO; +ATROPINE SULFATE 0.1 MG/ML 5ML SYR IV PRN; +BSP15 PO; -BUSP-8 PO; +BUSP15TA70 PO; +CALC600T9 PO; -CALCTAB5 PO; +CEFAZOLIN 2000MG IV PUSH 10 ML IV SCH; +CLON0.5T3 PO; +DEXAMETHASONE SOD INJ 4 MG/ML VIAL ONE; +EpHEDrine SULFATE 50MG/5ML SYR ONE; +EpHEDrine SULFATE INJ 50 MG/ML AMP IV PRN; +FENTANYL CITRATE INJ 50 MCG/1 ML 2 ML VIAL ONE; -FLUO10CA48 PO; +FLUO20CA35 PO; +GLYCOPYRROLATE INJ 0.2 MG/ML VIAL ONE; +HYDROmorphone INJ 1 MG/ML SYR IV PRN; +IMDSR60 PO; -IPRA1AER2 INH; -ISOS60TA PO; +LACTATED RINGER'S 1000ML 1,000 ML IV SCH; +LARYING-O-JET KIT (LTA) ONE; +LIDOCAINE HCL 2% 2 ML VIAL (20MG/ML) ONE; +MIDAZOLAM HCL 1 MG/ML 2ML VIAL ONE; +NEOSTIGMINE METHYLSULFATE 5 MG/5 ML SYR ONE; +ONDANSETRON INJ 2 MG/ML 2 ML VIAL IV PRN; +ONDANSETRON INJ 2 MG/ML 2 ML VIAL ONE; +PHENYLEPHRINE 100MCG/ML 5ML SYR IV PRN; +PHENYLEPHRINE 100MCG/ML 5ML SYR ONE; +PROPOFOL IV EMULSION 10 MG/ML 20 ML VIAL IV ONE; +PSYL0.524 PO; -PSYL55.43 PO; +RISP0.253 PO; +ROCURONIUM BROMIDE 10 MG/ML 5 ML VIAL IV ONE; +ROPIVACAINE 0.5% 5 MG/ML 30 ML VIAL ONE; +SPRIN/30 INH; -TIOTCAP INH; +VNTHFA/IN INH
[2017-05-03 10:39] VITALS: BP 132/71; PULSE 76; TEMP 36.3; O2SAT 96; Ht 177.8 cm; Wt 93.6 kg
[2017-05-03] MEDS ORDERED: EpINEphrine HCL INJ 1 MG/ML 5ML SYRINGE ONE ×2 (11:05→13:23)
[2017-05-03] MEDS ORDERED: EpHEDrine SULFATE INJ 50 MG/ML AMP ONE (12:55)
[2017-05-03] MEDS ORDERED: GLYCOPYRROLATE INJ 0.2 MG/ML VIAL ONE (13:28)
--- NOTE | 2017-05-03 14:10 | [facility] Post Operative Brief Note ---
Immediate Operative Summary Operative Date May 03, 2017. Pre-Operative Diagnosis left shoulder chronic rotator cuff tear h/o failed rotator cuff repair and ruptured long head biceps with impingement and acj arthritis Post-Operative Diagnosis same,chronic bursitis Procedure(s) Performed right shoulder arthroscoopy subacromial decompression and distal clavicle excision and extensive debridement Surgeon Dr. Lebron Business Development Representative Surgeon(s) none Estimated Blood Loss 15cc Findings as above Specimens none per surgeon Drains none Anesthesia general and regional Complication(s) None Disposition Recovery Room / PACU
[2017-05-03] MEDS ORDERED: RXC5 PO (14:24)
--- NOTE | 2017-05-03 14:30 | Discharge Instructions ---
Discharge Instructions Date of Service May 03, 2017. Visit Reason for Visit: Left Shoulder Impingement Syndrome, Osteoarthritis Discharge Discharge Diagnosis / Problem: Left Shoulder Impingement Syndrome Discharge Goals Goal(s): Decrease discomfort, Improve function, Increase independence Activity Recommendations Activity Limitations: per Instructions/Follow-up section Anesthesia . Post Anesthesia Instructions: If you have had General Anesthesia or IV Sedation: * Do not drive today. * Resume driving when surgeon permits. * Do not make important decisions or sign legal documents today. * Call surgeon for: 1. Temperature elevations greater than 101 degrees F. 2. Uncontrollable pain. 3. Excessive bleeding. 4. Persistent nausea and vomiting. 5. Medication intolerance (nausea, vomiting or rash). * For nausea and vomiting use only clear liquids such as: tea, soda, bouillon until nausea subsides, then gradually increase diet as tolerated. * If you have any concerns or questions, call your surgeon's office. If physician is unavailable and it is an emergency, call 911 or go to the nearest emergency room. . Instructions / Follow-Up Instructions / Follow-Up [facility] [place] DISCHARGE INSTRUCTIONS: SHOULDER ARTHROSCOPY with or without Distal Clavicle Excision SELF CARE INSTRUCTIONS AFTER: A. You are allowed to use your arm actively as comfort allows. Recommend NOT doing repetitive overhead activity or heavy lifting. B. You should start Physical Therapy within 1-3 days from your surgery. You will be provided a prescription with specific restrictions, if needed, at time of discharge. C. You can discontinue the sling as comfort allows within one to two days after surgery. A. At 48 hours post-operatively, you may change your dressing. . (Leave white steri-strips intact if present). Use band-aids and change daily. You are allowed to shower at this time and get the incision area wet, but DO NOT soak or submerge incision area in water. (No baths, swimming pools, hot tubs) B. Do NOT apply soap or any ointment/lotions directly over incision. C. You may use ice as needed to operative shoulder SPECIAL CARE INSTRUCTIONS: VERY IMPORTANT TO READ AND REVIEW A. There are a few signs you need to watch for after you are home. Call [facility] at [phone] if you experience any of the following: a. Increased severe shoulder pain. Some pain is expected especially when you exercise b. Increased swelling in your shoulder or arm; pain or swelling in either upper extremity. (Note: swelling and stiffness is normal and expected for several weeks post op, depending on type of shoulder surgery you had). c. Any fluid or drainage from the incision; redness of the incision. d. Shortness of breath or chest pain. B. Please call [facility] at [phone] if you have any questions or concerns about your operation or recovery. C. Call your physician if: a. Temperature is greater than 101 degrees (F). b. Pain is not relieved by prescribed pain medications. c. Increase drainage or redness from incision. d. Unanswered questions or concerns. D. Pain Medication: a. You will be prescribed pain medication upon discharge that should last till your first post-operative appointment. b. You may also take Advil or Ibuprofen between medication doses if you do not have any contraindication to taking them. c. You may also take Advil or Ibuprofen in place of your pain medication if the pain is tolerable. d. If you experience nausea and/or skin rash, discontinue this medication and contact our office for an alternative medication. e. Caution- narcotic pain medication can cause constipation. FOLLOW UP VISIT: Please call [facility] at [phone] to schedule a follow up appointment 10-14 days from your surgery date. Diet Recommendations Recommended Home Diet: resume previous diet Procedures Procedures Performed: left should arthroscopic revision decompression, Distal Clavicle Excision, extensive debridement Pending Studies Studies pending at discharge: no Medical Emergencies . Who to Call and When: Medical Emergencies: If at any time you feel your situation is an emergency, please call 911 immediately. . Non-Emergent Contact Non-Emergency issues call your: Surgeon Call Non-Emergent contact if: temperature is above 101.5, your pain is not controlled, your pain is worsening, wound has increased drainage, wound has increased redness . . "Provider Documentation" section prepared by Pb Ruvalcaba. . [place] Drug Monitoring Program Search Results: patient reviewed within database, no issues identified
[2017-05-03] MEDS ORDERED: ALBUT/IPRATROP 3MG/0.5MG NEB 3 ML VIAL INH ONE (15:15)
[2017-05-03 15:17] VITALS: PULSE 63; O2SAT 93
[2017-05-03 16:05] VITALS: BP 135/63; PULSE 72; TEMP 36.3; O2SAT 91
[2017-05-03 16:40] VITALS: BP 166/73; PULSE 67; TEMP 36.3; O2SAT 91
--- NOTE | 2017-05-03 18:16 | Anesthesiology Progress Note ---
Anesthesia Post Op Note Date & Time May 03, 2017 at 16:59 Vital Signs Pain Intensity: 0 Vital Signs Past 12 Hours Date Time Temp Pulse Resp B/P (MAP) Pulse Ox O2 Delivery O2 Flow Rate FiO2 05/03/17 16:05 36.3 72 16 135/63 91 Nasal Cannula 2.0 05/03/17 15:52 79 16 95 05/03/17 15:52 78 16 05/03/17 15:51 136/70 05/03/17 15:47 68 13 95 05/03/17 15:47 36.5 05/03/17 15:47 67 13 05/03/17 15:46 117/66 05/03/17 15:42 65 20 92 05/03/17 15:42 66 20 05/03/17 15:41 61 23 05/03/17 15:41 64 23 92 05/03/17 15:40 118/68 05/03/17 15:36 66 18 05/03/17 15:36 66 18 92 05/03/17 15:35 123/69 05/03/17 15:31 69 24 110/58 93 05/03/17 15:31 68 24 05/03/17 15:26 69 24 94 05/03/17 15:26 69 24 05/03/17 15:25 124/61 Arterial Line 05/03/17 15:21 62 19 05/03/17 15:21 61 19 113/57 97 05/03/17 15:17 63 14 93 Nasal Cannula 2.0 05/03/17 15:16 63 10 127/58 94 05/03/17 15:16 61 10 05/03/17 15:15 116/56 05/03/17 15:11 62 14 05/03/17 15:11 63 14 103/64 92 05/03/17 15:06 68 22 05/03/17 15:06 68 22 122/57 92 05/03/17 15:05 112/60 05/03/17 15:01 60 25 113/58 91 05/03/17 15:01 59 25 05/03/17 14:56 70 24 128/58 91 05/03/17 14:56 70 24 05/03/17 14:55 111/64 05/03/17 14:51 68 22 105/68 89 05/03/17 14:51 67 22 05/03/17 14:46 60 23 127/55 96 05/03/17 14:46 59 23 05/03/17 14:45 111/57 05/03/17 14:44 60 22 05/03/17 14:44 60 22 121/53 97 05/03/17 14:41 118/60 05/03/17 14:39 59 23 130/57 96 05/03/17 14:39 59 23 05/03/17 14:36 116/61 05/03/17 14:34 62 19 05/03/17 14:34 67 19 128/56 95 05/03/17 14:30 116/60 05/03/17 14:29 66 14 05/03/17 14:29 67 14 120/54 93 05/03/17 14:25 93/63 05/03/17 14:24 64 23 97 05/03/17 14:24 63 23 05/03/17 14:19 36.2 63 16 115/74 98 Oxymask 10 93/63 05/03/17 14:19 63 18 95 05/03/17 14:19 62 18 05/03/17 10:39 36.3 76 20 132/71 96 Room Air Notes Mental Status: alert / awake / arousable, participated in evaluation Pt Amnestic to Procedure: Yes Nausea / Vomiting: adequately controlled Pain: adequately controlled Airway Patency, RR, SpO2: stable & adequate BP & HR: stable & adequate Hydration State: stable & adequate Anesthetic Complications: no major complications apparent The patient is a 71 y/o male with a PMH of Asthma, COPD, smoking (1.5 packs/day ) YISSEL on CPAP, PR, CAD, HTN, CVA, DM, GERD, anxiety and obesity s/p L shoulder arthroscopy with subacromial decompression and distal clavicle resection with Dr. Lebron. The patient was placed under GA with L interscalene nerve block by Dr. Mejia. Per the preoperative evaluation, the patient was saturating 95% on RA on admission and lungs were clear to auscultation bilaterally. Intraoperatively, the patient was saturating 98% with an Fi02 of 1.0. The patient was extubated without difficulty and taken to PACU. I was asked by Dr. Mejia to sign out the patient from recovery when appropriate. In recovery, the patient was awake and taking deep breaths, however he was only saturating 92%-94% on 2L NC. The patient had bilateral wheezing on exam so an Duoneb was ordered. The patient was also given an incentive spirometer. He was able to take > 1L tidal volumes with the spirometer. In phase II recovery, the nurse attempted to wean the patient's oxygen. He was saturating 91-92% on RA and continued to wheeze. He was able to reach an oxygen saturation of 95% on RA with deep breathing but then would drop back down to 91% on RA. I spoke to Dr. Lebron regarding admitting the patient for observation given his history of lung disease and continued wheezing with marginal oxygen saturations on room air. Dr. Lebron was agreeable to admitting the patient. However, the patient refused to be admitted and stated that he would sign out against medical advice. I explained the risks of signing out against medical advice to the patient and his including risk of respiratory distress, stroke, cardiac or respiratory distress and . The patient understands and has signed the paper work to leave against medical advice. I tried to contact both Dr. Mukherjee who is the patient's bed setter and the patient's PCP Dr. Barrios but was unable to reach either of them. I did inform Dr. Lebron that the patient would be signing out AMA. I instructed the patient to continue to use his inhalers at home as indicated and to call his PCP or Dr. Mukherjee's office in the morning to see if they would like to see him for follow up. I also instructed the patient to go to the ED with any shortness of breath, chest pain, lightheaded or dizziness or with any other concerns. The patient understands and agrees. The patient stated that he felt well on discharge with no complaints.
--- NOTE | 2017-05-04 08:12 | OPERATIVE REPORT ---
DATE OF OPERATION: 05/03/2017 INDICATION FOR PROCEDURE: This is a 71-year-old male with chronic left shoulder pain. He has a history of heavy smoking for many years. He has a history of an open rotator cuff repair years ago. He has had extensive conservative management with periodic injections and nonsurgical treatment. At this point, he is having increasing pain and failed to have relief with his last injection. We did obtain x-rays and MRI which demonstrate proximal migration of the humerus, narrowed acromiohumeral interval, hypertrophied AC joint. MRI demonstrates a large retracted rotator cuff tear, supraspinatus and infraspinatus, with hypertrophic AC joint arthritis causing impingement. He has had previous decompression but he has some still a lip and some recurrent impingement on the anterior aspect of the acromion process. PREOPERATIVE DIAGNOSES: Chronic left shoulder pain, failed rotator cuff repair, rotator cuff arthropathy, rotator cuff tendinopathy, subacromial bursitis, chronic biceps tendon rupture and symptomatic acromioclavicular joint arthritis, left shoulder. POSTOPERATIVE DIAGNOSES: Same with nonrepairable rotator cuff tear and some rotator cuff arthropathy, marked subacromial bursitis and advanced acromioclavicular joint arthritis with deformity of acromioclavicular joint. PROCEDURE: Left shoulder arthroscopy with arthroscopic revision, subacromial decompression with arthroscopic distal clavicle excision and extensive debridement. SURGEON: Palmer Lebron MD. MASTER BAKER: None. ANESTHESIA: Regional block, general. OPERATIVE PROCEDURE: The patient was taken to the operating room, anesthetized with regional block and general anesthetic. He was positioned on a [facility] shoulder table in a 40-degree beach chair position. His left upper extremity was prepped and draped in sterile fashion. Exam demonstrated a longitudinal incision over the lateral anterior shoulder area. He had good passive range of motion and subacromial crepitation. After shoulder was sterilely prepped with ChloraPrep, arthroscopy was started with posterior arthroscopy portal in the soft spot, anterior portal in the rotator interval, and lateral portal in the subacromial space. The intraarticular findings demonstrated that his glenoid showed reasonably good articular surface and labrum was still intact. Biceps had ruptured and retracted with no remnants of the biceps remaining. Subscapularis tendon was still intact but he had tendinopathic changes and fraying. He had some tissue in the rotator interval and some supraspinatus that was still intact in the rotator interval area. Otherwise, the supraspinatus was torn and retracted. There was small suture material on the retracted supraspinatus tendon tissue and there was tearing of the infraspinatus as well. Teres minor was still intact. There was still some soft tissue on the greater tuberosity where the tendon had torn away. Biceps tendon was torn and retracted out of the joint. There was very thickened chronic subacromial bursitis from anterior to posterior. The acromion had a lip on it with a type 2 shape to the acromion, still causing some impingement anteriorly. There were large inferior AC joint spurs causing impingement and the AC joint was very deformed with advanced arthritic change in the AC joint. There was chronic thickened bursitis over the remaining cuff tissue. The humeral head itself had several areas of indentation and arthritic wear consistent with advancing rotator cuff arthropathy but no complete volo-fa-skll anywhere at this point. Attention was first taken to the glenohumeral joint at which time the subscapularis tendon was debrided and some of the undersurface of the rotator cuff was debrided. Then, attention was taken to the subacromial space and then we did a thorough bursectomy. We used both 4.5 resector blade and 4.5 incisor plus blade to remove a lot of this bursal tissue. We used a radiofrequency ablator to ablate the bursa and the undersurface of the acromion process. We did not do any specific release of any of the CA ligament tissue. I did ablate the inferior AC joint capsule and exposed large spurs on the AC joint. Then, we used both ablator and the suction shaver device to remove all the pathological bursa from the subscapularis back to the infraspinatus. Edge of the rotator cuff was debrided back to intact cuff tissue, and I felt with his high level of smoking history and amount of retraction, that it would be a stretch to try to repair this and unlikely we will be to able to repair it under tension-free repair. All the soft tissue on the greater tuberosity was debrided. All the rotator cuff remnants on the greater tuberosity were debrided. At this time, we did revision decompression, just planed down the anterior aspect of the acromion to a type 1 flat shape and then removing the AC facet spur up to the level of the remainder of the acromioplasty and then removing 1 cm distal clavicle using a 5.5 bur. All debris was irrigated out of the subacromial space and further bursectomy was performed until it was free of all pathological bursa. Then, the portal sites were closed with nylon sutures. Sterile dressings were applied and a sling immobilizer. The patient had minimal blood loss. The patient tolerated the procedure well. I attest to the content of the Intraoperative Record and any orders documented therein. Any exception s are noted below.
== END 2017-05-03 17:35 | disposition home or self-care (01) ==
LOC: C.ACU 09:54
PROVIDERS: ATTEND Orthopaedic Surgery Sports Medicine
DX: M75.102 Unspecified rotator cuff tear or rupture of left shoulder, not specified as traumatic (principal); M75.52 Bursitis of left shoulder; M19.012 Primary osteoarthritis, left shoulder; M21.922 Unspecified acquired deformity of left upper arm; I25.10 Atherosclerotic heart disease of native coronary artery without angina pectoris; I25.2 Old myocardial infarction; I10 Essential (primary) hypertension; R01.1 Cardiac murmur, unspecified; E11.9 Type 2 diabetes mellitus without complications; J44.9 Chronic obstructive pulmonary disease, unspecified; G47.33 Obstructive sleep apnea (adult) (pediatric); K21.9 Gastro-esophageal reflux disease without esophagitis; F43.10 Post-traumatic stress disorder, unspecified; E66.9 Obesity, unspecified; Z68.30 Body mass index [BMI] 30.0-30.9, adult; M06.9 Rheumatoid arthritis, unspecified; F41.9 Anxiety disorder, unspecified; F17.210 Nicotine dependence, cigarettes, uncomplicated; Z86.73 Personal history of transient ischemic attack (TIA), and cerebral infarction without residual deficits; Z79.82 Long term (current) use of aspirin; Z79.84 Long term (current) use of oral hypoglycemic drugs; Z79.899 Other long term (current) drug therapy

== ENCOUNTER → 2017-06-10 | Outpatient (CLI) | payer OTHER ==
[~2017-06-10] MED LIST changes: -ATROPINE SULFATE 0.1 MG/ML 5ML SYR IV PRN; -CEFAZOLIN 2000MG IV PUSH 10 ML IV SCH; -DEXAMETHASONE SOD INJ 4 MG/ML VIAL ONE; -EpHEDrine SULFATE 50MG/5ML SYR ONE; -EpHEDrine SULFATE INJ 50 MG/ML AMP IV PRN; -FENTANYL CITRATE INJ 50 MCG/1 ML 2 ML VIAL ONE; -GLYCOPYRROLATE INJ 0.2 MG/ML VIAL ONE; -HYDROmorphone INJ 1 MG/ML SYR IV PRN; -LACTATED RINGER'S 1000ML 1,000 ML IV SCH; -LARYING-O-JET KIT (LTA) ONE; -LIDOCAINE HCL 2% 2 ML VIAL (20MG/ML) ONE; -MIDAZOLAM HCL 1 MG/ML 2ML VIAL ONE; -NEOSTIGMINE METHYLSULFATE 5 MG/5 ML SYR ONE; -ONDANSETRON INJ 2 MG/ML 2 ML VIAL IV PRN; -ONDANSETRON INJ 2 MG/ML 2 ML VIAL ONE; -PHENYLEPHRINE 100MCG/ML 5ML SYR IV PRN; -PHENYLEPHRINE 100MCG/ML 5ML SYR ONE; -PROPOFOL IV EMULSION 10 MG/ML 20 ML VIAL IV ONE; -ROCURONIUM BROMIDE 10 MG/ML 5 ML VIAL IV ONE; -ROPIVACAINE 0.5% 5 MG/ML 30 ML VIAL ONE; +RXC5 PO
--- NOTE | 2017-06-10 08:06 | DIAGNOSTIC IMAGING REPORT ---
(CHEST) THORAX WITHOUT CT DOSE: 569.67 mGy.cm HISTORY: Lung nodule X TECHNIQUE: Multiaxial CT images of the chest were performed without contrast. A dose lowering technique was utilized adhering to the principles of ALARA. COMPARISON: 02/16/2017 FINDINGS: Essentially unchanged exam. Scattered parenchymal nodules including a right infrahilar nodularity considered stable compared to the prior study. There are no new or interval nodular densities. Is minimal scattered atelectatic change in the pericardial regions anterior aspect right middle lobe as well as the lingula on the left. The spiculated nodule left pulmonary apex is diminished in size with current measurements of 7 mm diminished from 16 mm. A sending thoracic aorta is similar at 3.9 cm. There is no significant hilar or mediastinal adenopathy. Mild esophageal wall thickening. There is coronary arterial vascular calcification unchanged. Limited evaluation the upper abdomen is unremarkable. IMPRESSION: 1. Improved left apical nodularity with a decrease in size from 16 to 7 mm. 2. All additional nodules are stable 3. Stable emphysematous change. 4. No new or interval nodularity. Minimal scattered platelike atelectatic change. 5. Routine follow-up surveillance is suggested. The above report was generated using voice recognition software. It may contain grammatical, syntax or spelling errors. Electronically signed by: Zack Rizzo M.D. 06/10/2017 8:05 AM Dictated Date/Time: 06/10/2017 7:51 AM
== END | disposition home or self-care (01) ==
LOC: C.CTS 07:33
PROVIDERS: ATTEND Internal Medicine Critical Care Medicine
DX: R91.8 Other nonspecific abnormal finding of lung field (principal)

== ENCOUNTER 2023-04-14 22:25 | Inpatient (IN) ==
[2023-04-14 22:57] LABS: Basophils # (auto) 0.05 K/uL (0.00-0.20); Basophils % (auto) 0.7 %; Hematocrit (blood only) 29.4 % (42.0-52.0); Hemoglobin 8.7 g/dl (14.0-18.0); Immature Granulocytes # (auto) 0.02 K/uL (0.01-0.20); Immature Granulocytes % (auto) 0.3 %; Lymphocytes # (auto) 1.52 K/uL (1.20-3.40); Lymphocytes % (auto) 22.7 %; Mean Corpuscular Hemoglobin 25.4 pg (25.0-34.0); Mean Corpuscular Hgb Conc 29.6 g/dL (32.0-36.0); Mean Corpuscular Volume 85.7 fL (80.0-100.0); Mean Platelet Volume 9.5 fL (9.4-12.4); Monocytes # (auto) 0.65 K/uL (0.11-0.59); Monocytes % (auto) 9.7 %; Neutrophils # (auto) 4.47 K/uL (1.40-6.50); Neutrophils % (auto) 66.6 %; Platelet Count 245 K/uL (130-400); RDW Standard Deviation 55.8 fL (36.4-46.3); Red Blood Count 3.43 M/uL (4.70-6.10); White Blood Count 6.71 K/ul (4.8-10.8)
[2023-04-14] MEDS ORDERED: methylPREDNISolone 125 MG/2 ML VIAL IV STA (23:09)
[2023-04-14] MEDS ORDERED: ALBUT/IPRATROP 3MG/0.5MG NEB 3 ML VIAL NEB STA (23:09)
[2023-04-14 23:14] LABS: Albumin Globulin Ratio 1.3 (0.9-2); Albumin Level 3.6 gm/dl (3.4-5.0); BUN Creatinine Ratio 17.4 (10-20); Bilirubin,Total 0.3 mg/dl (0.2-1.0); Calcium 8.9 mg/dl (8.6-10.3); Creatinine Clr Calc Pharmacy 43.2 ml/min; Est GFR (African American) 48.6 ml/min; Globulin 2.8 gm/dl (2.5-4.0); Total Protein 6.4 gm/dl (6.0-8.3)
--- NOTE | 2023-04-14 23:15 | Emergency Department Note ---
Impression & Plan Acute non-ST elevation myocardial infarction (NSTEMI), Anemia admit to [facility] ED Provider Note NAME: YUVAL PICKERING AGE: 77 SEX: Male INFORMANT: Patient ED PROVIDER(S): Cindy Canales DO CHIEF COMPLAINT: Chest pain shortness of breath PLAN: Disposition: admit to the [facility] MEDICAL DECISION MAKING: This is a 77-year-old male patient who presents to the emergency department after a sudden onset of chest pain at 6 PM this evening that lasted for 5-6 seconds with resultant shortness of breath and chest tightness afterwards. Patient has longstanding history of heart disease with 3 previous MIs and COPD with continued tobacco abuse. Upon my evaluation of the patient, he is chest pain-free. EKG shows ST segment depression in the inferior and lateral leads. Troponin is elevated to 49.9. The patient takes Eliquis. He received aspirin in the prehospital setting. Chest x-ray shows evidence of pulmonary edema with a BNP of 708. The patient was significantly anemic with a hemoglobin of 8.7 patient states that this is a new diagnosis for him over the past couple of weeks and his PCP is working it up. There was no leukocytosis today. Glucose was 130. BUN of 27 and creatinine of 1.55 O2 saturations remained stable on room air. Care/management discussed with: hotel operation manager and [facility] Triage Nursing notes: Reviewed and agree with them. Vital Signs: reviewed and unremarkable Additional History obtained from: EMS Chronic Medical/Social Conditions affecting care: COPD, asthma, heart disease, tobacco abuse, anemia Differential Diagnosis: NSTEMI, STEMI, COPD exacerbation, GERD Diagnostics, independently interpreted by me: ECG: Normal sinus rhythm at a rate of 83 with first-degree AV block. There is ST segment depression in the inferior and lateral leads which is new compared to an EKG from 2014. There is no ectopy Cardiac Monitoring: Normal sinus rhythm at a rate of 92 Imaging studies: Portable chest [id number] with moderate pulmonary edema as per my independent interpretation HPI: 77 year old Male arrives for evaluation of chest pain and shortness of breath. On 6 PM this evening, the patient had a sudden onset of severe stabbing chest pain that lasted for approximately 5-6 seconds. This resolved quickly but the patient was left with shortness of breath and chest tightness throughout the evening. Pain was not improving and his family called EMS. Patient took 2 baby aspirin and EMS gave him 2 more. PAST MEDICAL HISTORY: COPD, asthma, DC x 3, tobacco abuse, CVA, hiatal hernia, osteoarthritis, broken right foot, SOCIAL HISTORY: Patient continues to smoke heavily, lives with his family HOME MEDICATIONS: See list ALLERGIES: See list VITALS: See Below PHYSICAL EXAMINATION: Patient smells of tobacco and is villagomez in color. HEENT: Head - normocephalic and atraumatic. Pupils are equal, round, and reactive to light. Extraocular eye muscles are intact, and sclera are anicteric. Nose - moist nasal mucosa without discharge. Mouth - moist buccal mucosa. Oropharynx is nonerythematous and there is no tonsillar exudate or edema noted. Neck: Supple; no JVD or cervical lymphadenopathy Heart: Regular rate and rhythm. There is a normal S1 and S2 with harsh blowing systolic ejection murmur clicks, or gallops appreciated. Lungs: Diffuse expiratory wheezes. Abdomen: Soft, completely nontender, nondistended, with good bowel sounds. There are no palpable pulsatile masses or hepatosplenomegaly. There is no guarding, rigidity, or rebound noted. Extremities: No evidence of cyanosis, clubbing, or edema. There are easily palpable peripheral pulses. Skin: warm and dry with good turgor and no rashes. Emergency Department course: The patient was evaluated in room B-10. A complete history and physical was performed. A twelve-lead EKG was obtained as described above. An order was placed for continuous cardiac monitoring. Patient was in a normal sinus rhythm at a rate of 92. O2 saturations were stable on room air. Portable chest x-ray was performed. Laboratory studies were drawn as above. Patient was given a dose of IV Solu- Medrol and a DuoNeb treatment as he was wheezing. I reviewed the results with the patient and his family who are at the bedside. I discussed the case with the [facility] Hospitalist. Past Med/Surg History Social History Smoking Status: Current every day smoker Cigarettes Per Day: 30; Feels Safe at Home: Yes Allergies Allergies Allergy/AdvReac Type Severity Reaction Status Date / Time acetaminophen AdvReac Severe SEVERE Verified 04/14/23 23:16 HEADACHE-PER PT "BRAIN SWELLS". FRESH ANIMAL BLOOD AdvReac Unknown EYES WILL Uncoded 04/14/23 23:16 SWELL/CLOSE SHUT WHEN A FEW FEET AWAY Home Meds Home Medications Medication Instructions Recorded Confirmed albuterol sulfate 2.5 mg/3 mL 2.5 mg inhalation DIRECTED PRN 04/14/23 04/14/23 (0.083 %) solution for nebulization Shortness Of Breath Or Wheezing albuterol sulfate 90 mcg/actuation 2 puff inhalation QID PRN 04/14/23 04/14/23 aerosol inhaler (Ventolin HFA) Shortness Of Breath Or Wheezing apixaban 5 mg tablet (Eliquis) 5 mg PO BID 04/14/23 04/14/23 aspirin 81 mg chewable tablet 81 mg PO QAM 04/14/23 04/14/23 atorvastatin 80 mg tablet 80 mg PO HS 04/14/23 04/14/23 buspirone 10 mg tablet 10 - 20 mg PO BID PRN Anxiety 04/14/23 04/14/23 clonazepam 0.5 mg tablet 0.5 mg PO DIRECTED PRN 04/14/23 04/14/23 NEEDED PER [facility]. colchicine 0.6 mg tablet 0.6 mg PO DIRECTED PRN GOUT 04/14/23 04/14/23 FLARE UP cyanocobalamin (vitamin B-12) 1,000 mcg PO QAM 04/14/23 04/14/23 1,000 mcg tablet (Vitamin B-12) fluoxetine 20 mg capsule 60 mg PO QAM 04/14/23 04/14/23 fluticasone propionate 230 2 puff inhalation BID 04/14/23 04/14/23 mcg-salmeterol 21 mcg/actuation HFA inhaler (Advair HFA) fluticasone propionate 50 2 spray intranasal QAM 04/14/23 04/14/23 mcg/actuation nasal spray,suspension furosemide 40 mg tablet (Lasix) 40 mg PO QAM 04/14/23 04/14/23 gabapentin 300 mg capsule 300 mg PO HS 04/14/23 04/14/23 iron,carbonyl 65 mg-vitamin C 125 1 tab PO QAM 04/14/23 04/14/23 mg tablet,delayed release (Vitron-C) isosorbide mononitrate 60 mg 60 mg PO QAM 04/14/23 04/14/23 tablet,extended release 24 hr lisinopril 20 mg tablet 20 mg PO QAM 04/14/23 04/14/23 metformin 1,000 mg tablet 1,000 mg PO QAM 04/14/23 04/14/23 metoprolol succinate 25 mg 25 mg PO QAM 04/14/23 04/14/23 tablet,extended release 24 hr mirtazapine 15 mg tablet 7.5 mg PO HS 04/14/23 04/14/23 multivitamin 1 tab PO QAM 04/14/23 04/14/23 omeprazole 20 mg capsule,delayed 20 mg PO QAM 04/14/23 04/14/23 release risperidone 0.5 mg tablet 0.5 mg PO HS 04/14/23 04/14/23 roflumilast 500 mcg tablet 500 mcg PO QAM 04/14/23 04/14/23 tiotropium bromide 18 mcg capsule 1 cap inhalation QA 04/14/23 04/14/23 with inhalation device (Spiriva with HandiHaler) Results & Data (ED) Vital Signs Vital Signs - 24 hr 04/14/23 22:10 04/14/23 22:10 04/14/23 22:10 Temperature 36.5 C Temperature Source Oral Pulse Rate 98 H Pulse Rate [Apical] Respiratory Rate 22 Respiratory Effort / Characteristics SOB on Exertion Respiratory Depth Normal Normal Blood Pressure 112/65 Blood Pressure [Right Arm] Blood Pressure Mean 80 Blood Pressure Mean [Right Arm] Pulse Oximetry 93 93 Oxygen Delivery Method Room Air Room Air Sepsis Recent Fever Within 48 Hours No Sepsis New/Unexplained Change in Mental Status N/A Sepsis Action Taken by Nursing No Action Required 04/14/23 22:10 04/14/23 22:10 04/14/23 22:33 Temperature 36.5 C Temperature Source Oral Pulse Rate 98 H 98 H Pulse Rate [Apical] 98 H Respiratory Rate 22 22 Respiratory Effort / Characteristics Respiratory Depth Blood Pressure Blood Pressure [Right Arm] 112/65 Blood Pressure Mean Blood Pressure Mean [Right Arm] 80 Pulse Oximetry 93 93 93 Oxygen Delivery Method Room Air Room Air Room Air Sepsis Recent Fever Within 48 Hours Sepsis New/Unexplained Change in Mental Status Sepsis Action Taken by Nursing 04/14/23 22:42 04/15/23 00:22 Temperature Temperature Source Pulse Rate 78 Pulse Rate [Apical] 75 Respiratory Rate 16 Respiratory Effort / Characteristics Non-Labored Spontaneous Respiratory Depth Normal Blood Pressure Blood Pressure [Right Arm] 111/53 L Blood Pressure Mean Blood Pressure Mean [Right Arm] 72 Pulse Oximetry 97 Oxygen Delivery Method Room Air Sepsis Recent Fever Within 48 Hours Sepsis New/Unexplained Change in Mental Status Sepsis Action Taken by Nursing Laboratory Data 04/14/23 22:35 04/14/23 22:35 Lab Results 04/14/23 Range/Units 22:35 WBC 6.71 (4.8-10.8) K/ul RBC 3.43 L (4.70-6.10) M/uL Hgb 8.7 L (14.0-18.0) g/dl Hct 29.4 L (42.0-52.0) % MCV 85.7 (80.0-100.0) fL MCH 25.4 (25.0-34.0) pg MCHC 29.6 L (32.0-36.0) g/dL RDW Std Deviation 55.8 H (36.4-46.3) fL RDW Coeff of Adam 18.0 H (11.5-14.5) % Plt Count 245 (130-400) K/uL MPV 9.5 (9.4-12.4) fL Immature Gran % (Auto) 0.3 % Neut % (Auto) 66.6 % Lymph % (Auto) 22.7 % [place] % (Auto) 9.7 % Eos % (Auto) 0.0 % Baso % (Auto) 0.7 % Neut # (Auto) 4.47 (1.40-6.50) K/uL Lymph # (Auto) 1.52 (1.20-3.40) K/uL [place] # (Auto) 0.65 H (0.11-0.59) K/uL Eos # (Auto) 0.00 (0.00-0.50) K/uL Baso # (Auto) 0.05 (0.00-0.20) K/uL Immature Gran # (Auto) 0.02 (0.01-0.20) K/uL PT 10.9 (9.0-12.0) Seconds INR 1.0 (0.9-1.1) Sodium 142 (136-145) mmol/L Potassium 4.0 (3.5-5.1) mmol/L Chloride 107 (98-107) mmol/L Carbon Dioxide 28 (21-32) mmol/L Anion Gap 7 (3-11) BUN 27 H (6-23) mg/dl Creatinine 1.55 H (0.6-1.4) mg/dl Est Cr Clr Drug Dosing 43.2 ml/min Est GFR ( Amer) 48.6 ml/min Est GFR (Non-Af Amer) 42.0 ml/min BUN/Creatinine Ratio 17.4 (10-20) Glucose 130 H (70-99(Fasting)) mg/dl Calcium 8.9 (8.6-10.3) mg/dl Total Bilirubin 0.3 (0.2-1.0) mg/dl AST 17 (13-39) U/L ALT 13 (7-52) U/L Alkaline Phosphatase 111 H (34-104) U/L Troponin I High Sens 49.9 H (0-20) pg/ml B-Natriuretic Peptide 708 H (0-100) pg/ml Total Protein 6.4 (6.0-8.3) gm/dl Albumin 3.6 (3.4-5.0) gm/dl Globulin 2.8 (2.5-4.0) gm/dl Albumin/Globulin Ratio 1.3 (0.9-2) Lipase 54 (11-82) U/L Administered Medications Discontinued Medications Albuterol (Albut/Ipratrop 3mg/0.5mg Neb 3 Ml Vial) 3 ml NEB NOW STA; Protocol Stop: 04/14/23 23:10 Last Admin: 04/14/23 23:16 Dose: 3 ml Documented By: LÁZARO Methylprednisolone (Methylprednisolone 125 Mg/2 Ml Vial) 125 mg IV NOW STA Stop: 04/14/23 23:10 Last Admin: 04/14/23 23:16 Dose: 125 mg Documented By: LÁZARO Discharge Plan Visit Data Chief Complaint: Cardiac Assessment ED Provider: Cindy Canales Discharge Problem: Acute non-ST elevation myocardial infarction (NSTEMI), Anemia Forms Stand Alone Forms: My [facility] Prescriptions Prescriptions: No Action multivitamin Tablet 1 tab PO QAM furosemide [Lasix] 40 mg Tablet 40 mg PO QAM atorvastatin 80 mg Tablet 80 mg PO HS albuterol sulfate [Proventil] 2.5 mg /3 mL (0.083 %) Solution For Nebulization 2.5 mg INHALATION DIRECTED PRN (Reason: Shortness Of Breath Or Wheezing) lisinopril 20 mg Tablet 20 mg PO QAM clonazepam 0.5 mg Tablet 0.5 mg PO DIRECTED PRN (Reason: NEEDED PER [facility].) cyanocobalamin (vitamin B-12) [Vitamin B-12] 1,000 mcg Tablet 1,000 mcg PO QAM isosorbide mononitrate 60 mg Tablet Extended Release 24 Hr 60 mg PO QAM metformin 1,000 mg Tablet 1,000 mg PO QAM buspirone 10 mg tablet 10 - 20 mg PO BID PRN (Reason: Anxiety) gabapentin 300 mg Capsule 300 mg PO HS omeprazole 20 mg Capsule,Delayed Release(Dr/Ec) 20 mg PO QAM aspirin 81 mg Tablet,Chewable 81 mg PO QAM mirtazapine 15 mg Tablet 7.5 mg PO HS metoprolol succinate 25 mg Tablet Extended Release 24 Hr 25 mg PO QAM albuterol sulfate [Ventolin HFA] 90 mcg/actuation Hfa Aerosol Inhaler 2 puff INHALATION QID PRN (Reason: Shortness Of Breath Or Wheezing) colchicine 0.6 mg Tablet 0.6 mg PO DIRECTED PRN (Reason: GOUT FLARE UP) Rx Instructions: TAKE 2 TABLET, 1 HR LATER, TAKE 1 TABLET, THEN 1 TAB DAILY AFTER UNTIL SYMPTOMS RESOLVE. fluoxetine 20 mg Capsule 60 mg PO QAM fluticasone propionate [Flonase] 50 mcg/actuation [place],Suspension 2 spray INTRANASAL QAM Rx Instructions: administer into each nostril risperidone 0.5 mg Tablet 0.5 mg PO HS tiotropium bromide [Spiriva with HandiHaler] 18 mcg Capsule, W/Inhalation Device 1 cap INHALATION QAM Rx Instructions: puncture 1 cap using device; one dose = 2 inhalations fluticasone propion-salmeterol [Advair HFA] 230-21 mcg/actuation Hfa Aerosol Inhaler 2 puff INHALATION BID Rx Instructions: RINSE MOUTH AFTER USE roflumilast 500 mcg Tablet 500 mcg PO QAM Eliquis 5 mg tablet 5 mg PO BID Vitron-C 65 mg iron- 125 mg Tablet,Delayed Release (Dr/Ec) 1 tab PO QAM Referrals Referrals: Johnnie Newby MD [Primary Care Provider] -
[2023-04-14 23:19] LABS: Troponin I High Sensitivity 49.9 pg/ml (0-20)
[2023-04-14 23:42] LABS: Prothrombin Time 10.9 Seconds (9.0-12.0)
--- OUTSIDE RECORDS SUMMARY | 2023-04-15 00:13 | External Medical Summary ---
Author Name Unknown Address Unknown Organization [id number] [address] [place] [id number] Laboratory Report Ordering Provider Test Date Status JESUS MONTOYA 04/07/2023 15:05:22 Final Observation Date Value Abnormality Reference (Units ) Status SYNC LEUKOCYTES IN BLOOD BY AUTOMATED COUNT 04/07/2023 15:05:22 6.42 4.00-10.80 (K/uL) Final Segs 04/07/2023 15:05:22 58.2 40.0-75.0 (%) Final Lymphs % 04/07/2023 15:05:22 28.3 18.0-42.0 (%) Final Monos 04/07/2023 15:05:22 9.7 1.0-11.0 (%) Final Eosinophils 04/07/2023 15:05:22 3.0 0.0-6.0 (%) Final Basos 04/07/2023 15:05:22 0.8 0.0-2.0 (%) Final Absolute Segs 04/07/2023 15:05:22 3.74 1.80-7.70 (K/uL) Final Lymphs, absolute 04/07/2023 15:05:22 1.82 1.00-4.80 (K/ul) Final Monos, Abs 04/07/2023 15:05:22 0.62 0.00-1.10 (K/uL) Final Eos, Abs 04/07/2023 15:05:22 0.19 0.00-0.70 (K/uL) Final Basos, Abs 04/07/2023 15:05:22 0.05 0.00-0.20 (K/uL) Final Performing Location [facility] [address] [place] [id number]
--- OUTSIDE RECORDS SUMMARY | 2023-04-15 00:13 | External Medical Summary | Summary of Care ---
Author Name Unknown Organization [facility] Address [address] [place] [address] Phone [phone] Care Team Providers Care Outreach Team Member Name Role Phone Johnnie Newby MD Primary Care Provider [phone] Reason for Visit * Reason Comments Outpatient Testing Encounter Details Date Type Department Care Team (Late st Contact Info) Description 04/07/2023 3:00 PM EST Laboratory Laboratory, [facility] [address] [place] [address] [facility] [address] [facility] [place] [address] Coronary artery disease involving lower [place] coronary artery of lower [place] heart without angina pectoris; PAF (paroxysmal atrial fibrillation) ([facility]); Anemia of chronic disease Allergies Active Allergy Reactions Criticality Noted Date Comments Acetaminophen 05/06/2005 headaches documented as of this encounter (statuses as of 04/07/2023) Medications Medication Sig Dispensed Refills Start Date End Date Status DAILY MULTIVITAMIN PO TABS with lycopene 0 Active BUSPAR 15 MG PO TABS Take by mouth. Uses as needed 0 Active clonazePAM (KLONOPIN) 0.5 MG Tablet Uses as needed 0 06/17/2016 Active ONETOUCH ULTRA BLUE STRPIndications:Type 2 diabetes mellitus with hemoglobin A1c goal of less than 7.0% ([facility]) TEST ONCE DAILY 100 Strip 5 03/02/2018 Active Ventolin HFA 108 (90 Base) MCG/ACT Inhalation Aerosol SolutionIndications: COPD, moderate (HCC) Take 2 Puffs by mouth 4 times a day as needed for Shortness of Breath or Wheezing. 54 g 1 05/07/2020 Active Mirtazapine 15 MG Oral Tablet (Remeron) Take one and half tablets by mouth daily at bedtime 0 10/01/2020 Active Gabapentin 300 MG Oral Capsule (Neurontin) Take by mouth 1 Capsule before bedtime. 90 Capsule 3 09/10/2021 Active BiPAP every night at bedtime. 0 Active Vitamin B-12 1000 MCG Oral Tablet (Cyanocobalamin) Take 1 Tablet by mouth in the morning. 0 Active Isosorbide Mononitrate ER 60 MG Oral Tablet Extended Release 24 Hour (Imdur)Indications:C oronary artery disease involving lower si[place] coronary artery without angina pectoris TAKE ONE TABLET BY MOUTH EVERY MORNING 90 Tablet 3 09/18/2022 4 Active Lisinopril 20 MG Oral Tablet (Prinivil)Indication s:HTN, goal below 140/90 TAKE ONE TABLET BY MOUTH EVERY MORNING 90 Tablet 2 09/18/2022 4 Active metFORMIN HCl 1000 MG Oral Tablet (Glucophage) TAKE ONE TABLET BY MOUTH EVERY MORNING 100 Tablet 1 09/03/2022 4 Active FLUoxetine HCl 20 MG Oral Capsule (PROzac) TAKE THREE CAPSULES BY MOUTH EVERY MORNING 270 Capsule 0 07/08/2022 4 Active Tiotropium [place] Monohydrate 18 MCG Inhalation Capsule (Spiriva) INHALE ONE CAPSULE VIA HANDIHALER EVERY MORNING. DO NOT SWALLOW CAPSULE. 90 Capsule 3 06/26/2022 4 Active Fluticasone-Salmeter ol 230-21 MCG/ACT Inhalation Aerosol (Advair)Indications: COPD, group B, by GOLD 2017 classification ([facility]) INHALE TWO PUFFS BY MOUTH EVERY MORNING AND INHALE TWO PUFFS BY MOUTH AT BEDTIME, RINSE MOUTH AFTER USE 36 g 3 04/17/2022 4 Active Roflumilast 500 MCG Oral Tablet (Daliresp)Indication s:COPD, group D, by GOLD 2017 classification ([facility]) TAKE ONE TABLET BY MOUTH EVERY MORNING 90 Tablet 1 11/26/2022 4 Active Apixaban 5 MG Oral Tablet (Eliquis) Take 1 Tablet by mouth in the morning and 1 Tablet before bedtime. 180 Tablet 3 12/08/2022 Active Aspirin 81 MG Oral Tablet Chewable chew 1 Tablet by mouth in the morning. 100 Tablet 3 12/08/2022 Active Metoprolol Succinate ER 25 MG Oral Tablet Extended Release 24 Hour (toPROL XL)Indications:SVT (supraventricular tachycardia),NSVT (nonsustained ventricular tachycardia) (HCC) TAKE ONE TABLET BY MOUTH EVERY DAY 90 Tablet 3 12/09/2022 4 Active Atorvastatin Calcium 80 MG Oral Tablet (Lipitor) TAKE ONE TABLET BY MOUTH AT BEDTIME 90 Tablet 1 12/09/2022 4 Active Vitron-C 65-125 MG Oral Tablet (Iron-Vitamin C 65-125 mg per tab) Take 1 Tablet by mouth in the morning. 0 Active Colchicine 0.6 MG Oral Tablet Take 2 tablets by mouth. One hour later, take 1 tablet by mouth. Take 1 tablet by mouth once daily after until symptoms resolve. 90 Tablet 3 12/23/2022 Active Furosemide 40 MG Oral Tablet (Lasix)Indications:H TN, goal below 140/90 Take 1 Tablet by mouth in the morning. 100 Tablet 1 01/15/2023 Active Fluticasone Propionate 50 MCG/ACT Nasal Suspension (Flonase) USE TWO SPRAYS IN EACH NOSTRIL IN THE MORNING 16 g 1 01/15/2023 Active busPIRone HCl 10 MG Oral Tablet (Buspar) take 1-2 tabs (10-20mg) by mouth twice daily as needed for anxiety 180 Tablet 0 02/09/2023 Active FLUoxetine HCl 20 MG Oral Capsule (PROzac) 3 caps by mouth every morning 270 Capsule 0 02/09/2023 Active Mirtazapine 15 MG Oral Tablet (Remeron) 1/2 tab (7.5mg) by mouth every night 45 Tablet 0 02/09/2023 Active risperiDONE 0.5 MG Oral Tablet (RisperDAL) 1 tab by mouth every night at bedtime 90 Tablet 0 02/09/2023 Active Omeprazole 20 MG Oral Capsule Delayed Release (PriLOSEC)Indication s:Gastroesophageal reflux disease without esophagitis TAKE ONE CAPSULE BY MOUTH EVERY MORNING *NEED UPDATED LABS* 90 Capsule 1 03/21/2023 4 Active Hospital, Clinic, or Other Facility Administered Medication Ordered Dose Route Frequency Start Date End Date Status albuterol sulfate (PROVENTIL) (2.5 MG/3ML) 0.083% inhalation solution 2.5 mgIndications:COPD, severe (HCC) 2.5 mg NEBULIZER Q4H PRN 07/08/2018 Active documented as of this encounter (statuses as of 04/07/2023) Active Problems Problem Noted Date Diagnosed Date Closed nondisplaced fracture of fifth metatarsal bone of right foot with routine healing 03/10/2023 Diabetic peripheral neuropathy 01/15/2023 Diverticulosis of large intestine without hemorr isaura 01/15/2023 Anemia of chronic disease 01/15/2023 Gouty arthropathy 12/22/2022 History of cardioembolic cerebrovascular acciden t (CVA) 06/09/2022 Depression with anxiety 06/05/2022 Obesity, Class I, BMI 30.0-34.9 (see actual BMI) 06/04/2021 Malignant neoplasm of right upper lobe of lung 0 08/29/2020 Cancer Staging:Clinical stage from 08/21/2020:Stage IA2(cT1b, cN0, cM0) - Signed by Shawna Johnson MD on 08/29/2020 Chronic kidney disease, stage 3a 08/27/2020 Overview: Per CKD protocol AAA (abdominal aortic aneurysm) 06/28/2020 Overview: 4.1 cm AAA noted on PET CT 05/29/20 Aortic valve stenosis 11/30/2019 NSVT (nonsustained ventricular tachycardia) 10/18 Carotid stenosis, non-symptomatic 05/31/2019 COPD, group D, by GOLD 2017 classification 05/30 Overview: Per COPD GOLD Classification Dyslipidemia 02/07/2019 Peripheral arterial disease 12/28/2018 Old WA (myocardial infarction) 01/03/2018 YISSEL treated with BiPAP 01/03/2018 Overview: Wears BiPAP at night Type 2 diabetes mellitus wit h hemoglobin A1c goal of less than 8.0% 10/23/2014 Overview: ICD-10 update of inactive term CVA, old, 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 PTSD (post-traumatic stress disorder) 01/05/2014 Gastroesophageal reflux disease without esophagi tis 01/05/2014 Coronary artery disease invo lving lower si[place] coronary artery of lower [place] heart without angina pectoris 11/27/2013 Tobacco abuse 11/27/2013 HTN, goal below 130/80 03/06/2009 Overview: Modified per HTN protocol #16. documented as of this encounter (statuses as of 04/07/2023) Resolved Problems Problem Noted Date Diagnosed Date Resolved Date Overweight (BMI 25.0-29.9) 09/09/2022 0 01/15/2023 Obesity, Class II, BMI 35-39 .9, isolated (see actual BMI) 12/02/2021 09/09/2022 Type 2 diabetes mellitus wit h stage 3a chronic kidney disease, without long-term current use of insulin 08/27/2020 06/03/2022 Overview: Per CKD protocol Hypertensive kidney disease with stage 3a chronic kidney disease 06/24/2020 01/15/2023 Overview: Per CKD protocol - HTN + CKD III = conditions have assumed relationship per current coding guidelines. Hypertensive kidney disease with chronic kidney disease stage III 11/16/2019 06/27/2020 Overview: HTN + CKD III = conditions have assumed relationship per current coding guidelines. Type 2 diabetes mellitus wit h peripheral artery disease 05/19/2019 06/03/2022 COPD, group B, by GOLD 2017 classification 08/08/2018 02/07/2019 Asthma with COPD 08/08/2018 02/07/2019 Ground glass opacity present on imaging of lung 08/03/2018 09/11/2020 Pulmonary emphysema 08/02/2018 05/07/19 21 Type 2 diabetes mellitus wit h diabetic neuropathy, without long-term current use of insulin 08/02/2018 01/15/2023 Diabetes mellitus with stage 3 chronic kidney disease 05/02/2018 08/29/2020 Overview: Per CKD protocol #1 COPD (chronic obstructive pu lmonary disease) with emphysema 04/25/2018 11/29/2020 History of smoking 30 or more pack years 01/03/2018 11/29/2020 Kidney disease, chronic, sta ge III (GFR 30-59 ml/min) 04/29/2015 08/27/2016 Overview: Per CKD protocol #1 COPD, moderate 01/05/2014 04/25/2018 Depression, major, recurrent 01/05/2014 06/05/2022 Generalized anxiety disorder 01/05/2014 06/05/2022 Benign neoplasm of colon 09/18/201010/2018 Overview: adenomatous-repeat colonoscopy in 6 months Family history of GI malignancy 08/19/2010 04/25/2018 ADVANCE DIRECTIVE INFORMATION 07/18/2007 11/29/2020 Overview: Yes, Patient instructed to provide copy of advance directive for provider to review and to be scanned into Electronic Medical Record Scar conditions and fibrosis of skin 02/22/2007 05/31/2019 HYPERTENSION NOS 05/06/2005 03/06/2009 Overview: Modified per HTN protocol #16. Dyslipidemia, goal LDL below 100 05/06/2005 02/07/2019 documented as of this encounter (statuses as of 04/07/2023) Immunizations Name Administration Dates Next Due COVID-19 mRNA, LNP-s, No Pre serve, 2-Dose Series (Showkicker) 02/25/2023,02/10/2022,07/13/2020,06/17 Pneumococcal Conjugate Vacc, 13 Valent (Prevnar) 04/06/2014 Pneumococcal Polysaccharide PPV23 (Pneumovax) 11/07/2015 Season Influenza, Quad, PF, Adjuvanted, 65+ Yrs, IM (FLUAD) 02/27/2020 Seasonal Influenza, Quadriva lent Hd (Fluzone Hd) 12/31/2022,03/05/2021 Seasonal Influenza, Quadriva lent, No Preserve, IM 12/06/2017 Seasonal Influenza, Split, I IV3, With Preserve, Inj 01/05/2014 Seasonal Influenza, Trivalen t, Adjuvanted, 65+ yrs 02/10/2022,02/07/2019 TDAP (age 10 and older)(Boostrix) 01/05/2014 Varicella Zoster Vaccine (Adult) 01/05/2014 Zoster Vaccine Recombinant (Shingrix) 02/27/2020 ,11/30/2019,11/30/2019 documented as of this encounter Social History Tobacco Use Types Packs/Day Years Used Date Smoking Tobacco: Every Day Cigarettes 1.5 69 Smokeless Tobacco: Never Comments:started age 7 Alcohol Use Standard Drinks/Week Comments No 0 (1 standard drink = 0.6 oz pur e alcohol) PHQ-2 Answer Date Recorded PHQ-2 Score 8 05/31/2019 Hunger Vital Sign Answer Date Recorded Worried About Running Out of Food in the Last Ye ar Never true 12/28/2018 Ran Out of Food in the Last Year Never true 12/28/2018 Sex and Gender Information Value Date Recorded Sex Assigned at Male 08/02/2018 7:58 AM EDT Gender Identity Male 08/02/2018 7:58 AM EDT Sexual Orientation Straight 08/02/2018 7: 58 AM EDT Job Start Date Occupation Industry Not on file Not on file Not on file documented as of this encounter Plan of Treatment Upcoming Encounters Date Type Department Care Team (Late st Contact Info) Description 04/23/2023 11:00 AM EST Office Visit Podiatry [facility] [address] [facility] [place] [address] Bettye Herrmann, SAMM [address] [place], [place] [address] [address] 04/26/2023 11:30 AM EST Office Visit Orthopaedics [facility] [address] [facility] [place] [address] Zander Wilkins DO [address] [place] [address] 05/18/2023 1:00 PM EST Office Visit Gastroenterology, [facility] [address] [facility] [place] [address] Agnes Bowers CRNP [address] [facility] [place] [address] 05/31/2023 11:40 AM EST Office Visit Podiatry [facility] [address] [facility] [place] [address] Bettye Herrmann, SAMM [address] [facility] [place] [address] 07/08/2023 10:00 AM EDT Imaging Radiology [facility] [address] [facility] [address] [facility] [place] [address] 07/13/2023 11:00 AM EDT Office Visit Radiation Oncology, [address] [place] [address] Shawna Johnson MD [address] [place] [address] [place] [address] 07/19/2023 11:40 AM EDT Office Visit Family Practice [facility] [address] [facility] [place] [address] Johnnie Newby MD [address] [facility] [place] [address] 09/16/2023 9:00 AM EDT Office Visit Cardiology, [facility] [address] [facility] [place] [address] Deisy Aguirre CRNP [address] [facility] [place] [address] Pending Results Name Type Priority Associated Diagnoses Date /Time COMPREHENSIVE METABOLIC PANEL Lab Routine Coronary artery disease involving lower [place] coronary artery of lower [place] heart without angina pectoris PAF (paroxysmal atrial fibrillation) (HCC) Anemia of chronic disease 04/07/2023 3:05 PM EST Scheduled Procedures Name Priority Associated Diagnoses Date/Ti me COLONOSCOPY FLEXIBLE PROXIMA L DIAGNOSTIC Recall History of colonic polyps Health Maintenance Due Date Last Done Comments Hepatitis B (1 of 3 - Risk 3-dose series) 2003 Depression Screening 05/31/2020 05/31/2019 Diabetic Eye Exam 04/09/2023 04/09/2022, , 03/30/2020, Additional history exists COVID-19 Vaccine (2022- season) 2023 02/25/2023, 02/10/2022, 07/13/2020, Additional history exists DISCUSS TOBACCO CESSATION (REFER TO SMARTSET #3291) 05/01/2023 05/01/2022, 02/13/2022 CKD PHOS USE SMARTSET 94059 06/05/202305/20, 06/03/2021, 06/04/2020, Additional history exists GFR 06/17/2023 12/17/2022, 05/20, 12/02/2021, Additional history exists HbA1c 07/16/2023 01/15/2023, 05/20, 12/02/2021, Additional history exists Diabetic Foot Exam 09/10/2023 09/09/2022, 1 , 11/12/2017, Additional history exists DTaP,Tdap,and Td Vaccines (2 - Td or Tdap) 01/06/2024 01/05/2014 O2 ASSESSMENT COMPLETED IN PAST YEAR FOR COPD 01/15/2024 01/14/2023 Albumin/Creatinine Ratio 02/05/2024 023, 01/15/2023, 06/04/2021, Additional history exists CKD HGB USE SMARTSET 46728 03/10/202404/07, 04/07/2023, 03/10/2023, Additional history exists COLONOSCOPY-EVERY 2 YRS AGES 18-100 01/14/2025 01/14/2023, 01/14/2023, 03/05/2022, Additional history exists Pneumococcal Vaccine: 65+ Years Completed 11/07/2015, 04/06/2014 Alpha-1 Antitrypsin Completed 05/22/2019 Zoster Vaccines Completed 02/27/2020, 11/17, 11/30/2019, Additional history exists Influenza Vaccine (FLU shot) Completed 12/31/2022, 02/10/2022, 03/05/2021, Additional history exists COLONOSCOPY-ANNUAL AGES 18-100 Discontinued 01/14/2023, 01/14/2023, 03/05/2022, Additional history exists GARDASIL-HPV IMMUNIZATION SERIES Aged Out No longer eligible based on patient's age to complete this topic MENINGOCOCCAL (MENACTRA/MENVEO) Aged Out No longer eligible based on patient's age to complete this topic documented as of this encounter Medical Devices Implanted Type [place] Records Management Officer Device Identifier Shelf Expiration Date Model / Serial / Lot Lens Intraoc 24.0 - [id number] - [id number] Implanted:Qty: 1 on 06/01/2017 by Nikhil Bolton MD at OR [facility] Left: Eye [employer] 07/17/2021 [id number] / [id number] / [id number] Lens Intraoc 24.0 - [id number] - [id number] Implanted:Qty: 1 on 06/08/2017 by Nikhil Bolton MD at OR [facility] Right: Eye [employer] 07/17/2021 [id number] / [id number] / [id number] documented as of this encounter Procedures Procedure Name Priority Date/Time Associated Diagnosis Comments DIFFERENTIAL, AUTOMATED Routine 04/07/2023 3:05 PM EST Coronary artery disease involving lower [place] coronary artery of lower [place] heart without angina pectoris PAF (paroxysmal atrial fibrillation) (HCC) Anemia of chronic disease CBC Routine 04/07/2023 3:05 PM EST Coronary artery disease involving lower [place] coronary artery of lower [place] heart without angina pectoris PAF (paroxysmal atrial fibrillation) (HCC) Anemia of chronic disease CBC Routine 04/07/2023 3:05 PM EST Coronary artery disease involving lower [place] coronary artery of lower [place] heart without angina pectoris PAF (paroxysmal atrial fibrillation) (HCC) Anemia of chronic disease documented in this encounter Results * DIFFERENTIAL, AUTOMATED (04/07/2023 3:05 PM EST) WBC 6.42 4.00 - 10.80 K/uL 04/07/2023 3:29 PM EST [facility] [facility] Neutrophils % 58.2 40.0 - 75.0 % 04/07/2023 3:29 PM EST [facility] [facility] Lymphocytes % 28.3 18.0 - 42.0 % 04/07/2023 3:29 PM EST [facility] Monocytes % 9.7 1.0 - 11.0 % 04/07/2023 3:29 PM EST [facility] Eosinophils % 3.0 0.0 - 6.0 % 04/07/2023 3:29 PM EST [facility] Basophils % 0.8 0.0 - 2.0 % 04/07/2023 3:29 PM EST [facility] [facility] Absolute Neutrophils 3.74 1.80 - 7.70 K/uL 04/07/2023 3:29 PM EST [facility] [facility] Absolute Lymphocytes 1.82 1.00 - 4.80 K/ul 04/07/2023 3:29 PM EST [facility] Absolute Monocytes 0.62 0.00 - 1.10 K/uL 04/07/2023 3:29 PM EST [facility] Absolute Eosinophils 0.19 0.00 - 0.70 K/uL 04/07/2023 3:29 PM EST [facility] Absolute Basophils 0.05 0.00 - 0.20 K/uL 04/07/2023 3:29 PM EST [facility] Blood Venous blood specimen / Unknown Venipuncture / Unknown 04/07/2023 3:05 PM EST 04/07/2023 3:05 PM EST Warren Montoya DO LAB BLOOD ORDERA BLES [facility] [facility] [address] * (ABNORMAL) CBC (04/07/2023 3:05 PM EST) WBC 6.42 4.00 - 10.80 K/uL 04/07/2023 3:29 PM EST [facility] RBC 3.65 4.50 - 5.25 M/uL 04/07/2023 3:29 PM EST [facility] HGB 9.5(L) 14.0 - 16.8 g/dL 04/07/2023 3:29 PM EST [facility] HCT 32.4(L) 40.0 - 48.4 % 04/07/2023 3:29 PM EST [facility] MCV 88.8 82.0 - 99.5 fL 04/07/2023 3:29 PM EST [facility] MCH 26.0 27.0 - 34.0 pg 04/07/2023 3:29 PM EST [facility] MCHC 29.3 32.0 - 36.0 g/dL 04/07/2023 3:29 PM EST [facility] RDW 18.3 11.5 - 15.5 % 04/07/2023 3:29 PM EST [facility] PLT 232 140 - 400 K/uL 04/07/2023 3:29 PM EST [facility] MPV 9.7 6.6 - 11.1 fL 04/07/2023 3:29 PM EST [facility] Blood Venous blood specimen / Unknown Venipuncture / Unknown 04/07/2023 3:05 PM EST 04/07/2023 3:05 PM EST Warren Montoya DO LAB BLOOD ORDERA BLES [facility] [place] [address] documented in this encounter Visit Diagnoses Diagnosis Coronary artery disease involving lower [place] coronary artery of lower [place] heart without angina pectoris PAF (paroxysmal atrial fibrillation) (HCC) Atrial fibrillation Anemia of chronic disease Anemia of other chronic disease documented in this encounter Advance Directives Documents on File Type Date 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 Code Status History Code Status Date Activated Date Inactivated Comments Full Code 06/01/2017 7:04 AM 06/01/2017 1:27 PM This order reflects the patients wishes and were consensually agreed upon. Care Teams Outreach Team Member Relationship Specialty Start Date End Date Johnnie Newby MD [address] [place] [address] PCP - General Family Medicine 09/13/20 documented as of this encounter
--- OUTSIDE RECORDS SUMMARY | 2023-04-15 00:13 | External Medical Summary ---
Author Name Unknown Address Unknown Organization [id number]:[facility] [place] [address] Laboratory Report Ordering Provider Test Date Status JESUS MONTOYA 04/07/2023 15:05:22 Final Observation Date Value Abnormality Reference (Units ) Status BUN 04/07/2023 15:05:22 21 Above high normal 6-20 (mg/dL) Final Creatinine 04/07/2023 15:05:22 1.4 Above high normal 0.6-1.2 (mg/dL) Final Glomerular filtration rate/1.73 sq M.predicted [Volume Rate/Area] in Serum, Plasma or Blood by Creatinine-based formula (CKD-EPI) 04/07/2023 15:05:22 51 Below low normal >=60 (mL/min) Final eGFR is calculated based on the CKD-EPI 2020 equation SODIUM 04/07/2023 15:05:22 142 135-146 (m mol/L) Final Potassium 04/07/2023 15:05:22 4.3 3.5-5.1 (m mol/L) Final Cl 04/07/2023 15:05:22 103 98-107 (mm ol/L) Final CO2 04/07/2023 15:05:22 24 22-32 (mmo l/L) Final Anion gap 04/07/2023 15:05:22 15 7-15 (mmol /L) Final Glucose 04/07/2023 15:05:22 89 70-120 (mg /dL) Final Albumin 04/07/2023 15:05:22 4.0 3.8-5.0 (g /dL) Final AST (Aspartate aminotransferase) 04/07/2023 15:05:22 18 10-50 (U/L) Fin al Alk Phos 04/07/2023 15:05:22 133 Above high normal 35 -130 (U/L) Final Bilirubin, Total 04/07/2023 15:05:22 0.2 <=1 .2 (mg/dL) Final Calcium 04/07/2023 15:05:22 9.6 8.4-10.2 ( mg/dL) Final Protein 04/07/2023 15:05:22 6.4 6.0-8.3 (g /dL) Final ALT (Alanine aminotransferase) 04/07/2023 15:05:22 16 10-50 (U/L) Michel palafox Performing Location [facility] [address] - [address] [place] [address]
--- OUTSIDE RECORDS SUMMARY | 2023-04-15 00:13 | External Medical Summary | Summary of Care ---
Author Name Unknown Organization [facility] Address [address] [place] [address] Phone [phone] Care Team Providers Care Label Cutter Name Role Phone Johnnie Newby MD Primary Care Provider [phone] Reason for Visit * Reason Comments Follow Up Review stress test r esults Encounter Details Date Type Department Care Team (Late st Contact Info) Description 04/07/2023 2:30 PM EST Office Visit Cardiology, [facility] [address] [facility] [place] [address] Warren Montoya DO [address] [facility] [place] [address] Coronary artery disease involving comanche coronary artery of comanche heart without angina pectoris*; PAF (paroxysmal atrial fibrillation) ([facility]); Anemia of chronic disease Allergies [...] hemoglobin A1c goal of less than 7.0% ([facility]) TEST ONCE DAILY 100 Strip 5 03/02/2018 Active Ventolin HFA 108 (90 Base) MCG/ACT Inhalation Aerosol SolutionIndications: COPD, moderate ([facility]) Take 2 Puffs by mouth 4 times [...] 24 Hour (Imdur)Indications:C oronary artery disease involving comanche coronary artery without angina pectoris TAKE ONE [...] 270 Capsule 0 07/08/2022 4 Active Tiotropium [place] Monohydrate 18 MCG Inhalation Capsule (Spiriva) INHALE ONE CAPSULE VIA HANDIHALER EVERY MORNING. DO NOT SWALLOW CAPSULE. 90 Capsule 3 06/26/2022 4 Active Fluticasone-Salmeter ol 230-21 MCG/ACT Inhalation Aerosol (Advair)Indications: COPD, group B, by GOLD 2017 classification ([facility]) INHALE TWO PUFFS BY MOUTH EVERY MORNING AND INHALE TWO PUFFS BY MOUTH AT BEDTIME, RINSE MOUTH AFTER USE 36 g 3 04/17/2022 4 Active Roflumilast 500 MCG Oral Tablet (Daliresp)Indication s:COPD, group D, by GOLD 2017 classification ([facility]) TAKE ONE TABLET BY MOUTH [...] IA2(cT1b, cN0, cM0) - Signed by Shawna Jonhson MD on 08/29/2020 Chronic kidney disease, stage 3a 08/27/2020 Overview: Per CKD protocol AAA (abdominal aortic aneurysm) 06/28/2020 Overview: 4.1 cm AAA noted on PET CT 05/29/20 Aortic valve stenosis 11/30/2019 NSVT (nonsustained ventricular tachycardia) 10/18 Carotid stenosis, non-symptomatic 05/31/2019 COPD, group D, by GOLD 2017 classification 05/30 Overview: Per COPD GOLD Classification Dyslipidemia 02/07/2019 Peripheral arterial disease 12/28/2018 Old MA (myocardial infarction) 01/03/2018 YISSEL treated with BiPAP [...] tis 01/05/2014 Coronary artery disease invo lving comanche coronary artery of comanche heart without angina pectoris 11/27/2013 Tobacco abuse [...] mRNA, LNP-s, No Pre serve, 2-Dose Series (Pfizer) 02/25/2023,02/10/2022,07/13/2020,06/17 Pneumococcal Conjugate Vacc, 13 Valent (Prevnar) [...] on file documented as of this encounter Last Filed Vital Signs Vital Sign Reading Time Taken Comments Blood Pressure 106/64 04/07/2023 2:29 PM EST Pulse 68 04/07/2023 2:29 PM EST Temperature - - Respiratory Rate 16 04/07/2023 2:29 PM EST Oxygen Saturation - - Inhaled Oxygen Concentration - - Weight 90.3 kg (199 lb) 04/07/2023 2:29 PM EST Height - - Body Mass Index 30.26 02/15/2023 9:44 AM EDT documented in this encounter Progress Notes * Warren Montoya, DO - 04/07/2023 2:51 PM EST Cardiology Outpatient Follow-up Walter Don is a 77 year old male who is seen for follow-up of abnormal stress test. HPI: This is a 77-year-old both cardiovascularly and medically complex patient. He is a dedicated smokerand has a history of COPD as well as adenocarcinoma of the lung treated with radiation. He is also a vasculopath in 2005 underwent a cardiac catheterization that showed 100% occlusion of his right coronary and left circumflex arteries with the only artery being patent being the LAD providing collaterals to the two occluded arteries. The patient has a history of iron deficiency anemia which is worked up recently by the GI service without clear etiology. As of his labs in February he remains anemic and was started on iron supplements. No follow-up labs were performed. The patient wanted to havea total knee replacement completed and a pharmacologic nuclear stress test was obtained that shows moderate ischemia in the right coronary and left circumflex distributions consistent with his previous heart catheterization in 2005. This cardiac catheterization report is on the chart and of note isthat the patient has significant peripheral vascular disease and they had difficulty obtaining access from the right side. Finally, recently the patient tripped and fractured several toes on his right foot and is currently wearing a boot. He has baseline shortness of breath. No activity related chest pain. Past Medical History: Diagnosis Date Anemia of chronic disease 01/15/2023 Asthma Benign neoplasm of colon 05/28/2010 repeat colonoscopy in 3 months Benign neoplasm of colon 09/18/2010 adenomatous-repeat colonoscopy in 6 months Benign neoplasm of colon 04/09/2011 polyps x3 , path shows adenomatous tissue repeat in 1 years BiPAP (biphasic positive airway pressure) dependence 10/07/2015 Cerebrovascular event, ill-defined, within last 8 weeks COPD (chronic obstructive pulmonary disease) (HCC) COPD with emphysema (HCC) Depression with anxiety 06/05/2022 Diabetic peripheral neuropathy (HCC) 01/15/2023 Diverticulosis of large intestine without hemorrhage 01/15/2023 Dyslipidemia 02/07/2019 HTN, goal below 130/80 03/06/2009 Modified per HTN protocol #16. 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 PTSD (post-traumatic stress disorder) F43.10 Gastroesophageal reflux disease without esophagitis K21.9 Type 2 diabetes mellitus with hemoglobin A1c goal of less than 8.0% ([facility]) E11.9 Old MA (myocardial infarction) I25.2 YISSEL treated with BiPAP G47.33 Peripheral arterial disease (HCC) I73.9 Dyslipidemia E78.5 COPD, group D, by GOLD 2017 classification ([facility]) J44.9 Carotid stenosis, non-symptomatic I65.29 NSVT (nonsustained ventricular tachycardia) ([facility]) I47.29 Aortic valve stenosis I35.0 AAA (abdominal aortic aneurysm) ([facility]) I71.40 Chronic kidney disease, stage 3a ([facility]) N18.31 Malignant neoplasm of right upper lobe of lung ([facility]) C34.11 Obesity, Class I, BMI 30.0-34.9 (see actual BMI) E66.9 Depression with anxiety F41.8 History of cardioembolic cerebrovascular accident (CVA) Z86.73 Gouty arthropathy M10.9 Diabetic peripheral neuropathy (HCC) E11.42 Diverticulosis of large intestine without hemorrhage K57.30 Anemia of chronic disease D63.8 Closed nondisplaced fracture of fifth metatarsal bone of right foot with routine healing S92.354D Past Surgical History: Procedure Laterality Date BRONCHOSCOPY, DIAGNOSTIC N/A 06/12/2020 BRONCHOSCOPY DIAGNOSTIC WITH OR WITHOUT WASHING performed by Warren Patel MD at ENDOSCOPY [facility] COLONOSCOPY THRU STOMA, W/BIOPSY 05/28/2010 andenomatous tissue--repeat in 3 months COLONOSCOPY THRU STOMA, W/BIOPSY 09/18/2010 adenomatous-repeat colonoscopy in 3-6 months COLONOSCOPY THRU STOMA, W/BIOPSY 04/09/2011 polyps x3 , path shows adenomatous tissue repeat in 1 years COLONOSCOPY, DIAGNOSTIC (RECTUM) 05/20/2016 adenomatous polyps, poor prep, diverticulosis, repeat 3 yrs/[facility] COLONOS[facility], DIAGNOSTIC (RECTUM) 06/06/2019 hemorrhoids/diverticulosis sigmoid and descending colon/small AVM/biopsies show adenomatous polyps/recall 6-9 months/COLONOSCOPY FLEXIBLE PROXIMAL DIAGNOSTIC performed by Clemencia Marinelli MD [facility] COLONOSCOPY, DIAGNOSTIC (RECTUM) 03/05/2022 benign adenomatous polyp, repeat 1 yr / COLONOSCOPY FLEXIBLE PROXIMAL DIAGNOSTIC performed by Clemencia Marinelli MD at ENDOSCOPY [facility] COLONOSCOPY, DIAGNOSTIC (RECTUM) 01/14/2023 hemorrhoids/diverticulosis/biopsies show hyperplastic polyps/recall 2 years/COLONOSCOPY FLEXIBLE PROXIMAL DIAGNOSTIC performed by Destiny Mojica DO at ENDOSCOPY [facility] DESTROY LUMBAR SACRAL NERVE IMAGING ADD'L 01/27/2023 DESTROY LUMBAR SACRAL NERVE IMAGING ADD'L performed by Pb Alexander DO at OR [facility] DESTROY LUMBAR SACRAL NERVE IMAGING SINGLE 01/27/2023 DESTROY LUMBAR SACRAL NERVE IMAGING SINGLE performed by Pb Alexander DO at OR [facility] EGD, FLEXIBLE, DIAGNOSTIC 01/14/2023 gsatric polyp/ESOPHAGOGASTRODUODENOSCOPY (EGD), FLEXIBLE, TRANSORAL, DIAGNOSTIC performed by Phong Mojica DO at ENDOSCOPY [facility] L-/S-SPINE PARAVERTEBRAL FACET INJ,1 LEVEL 11/25/2022 L-/S-SPINE PARAVERTEBRAL FACET INJ, 1 LEVEL performed by Pb Alexander DO at [facility] L-/S-SPINE PARAVERTEBRAL FACET INJ,1 LEVEL 01/06/2023 L-/S-SPINE PARAVERTEBRAL FACET INJ, 1 LEVEL performed by Pb Alexander DO at OR [facility] L-/S-SPINE PARAVERTEBRL FACET INJ,2 LEVELS 11/25/2022 L-/S-SPINE PARAVERTEBRAL FACET INJ, 2 LEVELS performed by Pb Alexander DO at [facility] L-/S-SPINE PARAVERTEBRL FACET INJ,2 LEVELS 01/06/2023 L-/S-SPINE PARAVERTEBRAL FACET INJ, 2 LEVELS performed by Pb Alexander DO at [facility] MISCELLANEOUS ORDER ([facility]) 1998 henria repair OTHER (INFORMATION) pilonidal cyst removal OTHER (INFORMATION) repair of bilateral shoulder for bone spur and repair of torn muscles right shoulder REMOVE CATARACT, INSERT LENS PROSTH Left 06/01/2017 left EXTRACAPSULAR CATARACT REMOVAL WITH INTRAOCULAR LENS performed by Nikhil Bolton MD at [facility] REMOVE CATARACT, INSERT LENS PROSTH Right 06/08/2017 right EXTRACAPSULAR CATARACT REMOVAL WITH INTRAOCULAR LENS performed by Nikhil Bolton MD at OR [facility] Family History Problem Relation Age of Onset Cancer Mother colon Gastro-intestinal disorder Sister crohn's No Known Problems Father Heart disease Brother Heart disease Brother Social History Tobacco Use Smoking status: Every Day Packs/day: 1.50 Years: 69.00 Additional pack years: 0.00 Total pack years: 103.50 Types: Cigarettes Smokeless tobacco: Never Tobacco comments: started age 7 Vaping Use Vaping Use: Never used Substance Use Topics Alcohol use: No Drug use: No Review of patient's allergies indicates: Allergen Reactions Tylenol [Acetaminophen] headaches Current Outpatient Medications Medication Sig Dispense Refill DAILY MULTIVITAMIN PO TABS with lycopene clonazePAM (KLONOPIN) 0.5 MG Tablet Uses as needed 0 Ventolin HFA 108 (90 Base) MCG/ACT Inhalation Aerosol Solution Take 2 Puffs by mouth 4 times a day as needed for Shortness of Breath or Wheezing. 54 g 1 Mirtazapine 15 MG Oral Tablet (Remeron) Take one and half tablets by mouth daily at bedtime Gabapentin 300 MG Oral Capsule (Neurontin) Take by mouth 1 Capsule before bedtime. 90 Capsule 3 BiPAP every night at bedtime. Vitamin B-12 1000 MCG Oral Tablet (Cyanocobalamin) Take 1 Tablet by mouth in the morning. Isosorbide Mononitrate ER 60 MG Oral Tablet Extended Release 24 Hour (Imdur) TAKE ONE TABLET BY MOUTH EVERY MORNING 90 Tablet 3 Lisinopril 20 MG Oral Tablet (Prinivil) TAKE ONE TABLET BY MOUTH EVERY MORNING 90 Tablet 2 metFORMIN HCl 1000 MG Oral Tablet (Glucophage) TAKE ONE TABLET BY MOUTH EVERY MORNING 100 Tablet 1 FLUoxetine HCl 20 MG Oral Capsule (PROzac) TAKE THREE CAPSULES BY MOUTH EVERY MORNING 270 Capsule 0 Tiotropium [place] Monohydrate 18 MCG Inhalation Capsule (Spiriva) INHALE ONE CAPSULE VIA HANDIHALER EVERY MORNING. DO NOT SWALLOW CAPSULE. 90 Capsule 3 Fluticasone-Salmeterol 230-21 MCG/ACT Inhalation Aerosol (Advair) INHALE TWO PUFFS BY MOUTH EVERY MORNING AND INHALE TWO PUFFS BY MOUTH AT BEDTIME, RINSE MOUTH AFTER USE 36 g 3 Roflumilast 500 MCG Oral Tablet (Daliresp) TAKE ONE TABLET BY MOUTH EVERY MORNING 90 Tablet 1 Apixaban 5 MG Oral Tablet (Eliquis) Take 1 Tablet by mouth in the morning and 1 Tablet before bedtime. 180 Tablet 3 Aspirin 81 MG Oral Tablet Chewable chew 1 Tablet by mouth in the morning. 100 Tablet 3 Metoprolol Succinate ER 25 MG Oral Tablet Extended Release 24 Hour (toPROL XL) TAKE ONE TABLET BY MOUTH EVERY DAY 90 Tablet 3 Atorvastatin Calcium 80 MG Oral Tablet (Lipitor) TAKE ONE TABLET BY MOUTH AT BEDTIME 90 Tablet 1 Vitron-C 65-125 MG Oral Tablet (Iron-Vitamin C 65-125 mg per tab) Take 1 Tablet by mouth in the morning. Colchicine 0.6 MG Oral Tablet Take 2 tablets by mouth. One hour later, take 1 tablet by mouth. Take1 tablet by mouth once daily after until symptoms resolve. 90 Tablet 3 Furosemide 40 MG Oral Tablet (Lasix) Take 1 Tablet by mouth in the morning. 100 Tablet 1 Fluticasone Propionate 50 MCG/ACT Nasal Suspension (Flonase) USE TWO SPRAYS IN EACH NOSTRIL IN THE MORNING 16 g 1 busPIRone HCl 10 MG Oral Tablet (Buspar) take 1-2 tabs (10-20mg) by mouth twice daily as needed foranxiety 180 Tablet 0 Mirtazapine 15 MG Oral Tablet (Remeron) 1/2 tab (7.5mg) by mouth every night 45 Tablet 0 risperiDONE 0.5 MG Oral Tablet (RisperDAL) 1 tab by mouth every night at bedtime 90 Tablet 0 Omeprazole 20 MG Oral Capsule Delayed Release (PriLOSEC) TAKE ONE CAPSULE BY MOUTH EVERY MORNING *NEED UPDATED LABS* 90 Capsule 1 BUSPAR 15 MG PO TABS Take by mouth. Uses as needed ONETOUCH ULTRA BLUE STRP TEST ONCE DAILY 100 Strip 5 FLUoxetine HCl 20 MG Oral Capsule (PROzac) 3 caps by mouth every morning 270 Capsule 0 Current Facility-Administered Medications Medication Dose Route Frequency Provider Last Rate Last Admin albuterol sulfate (PROVENTIL) (2.5 MG/3ML) 0.083% inhalation solution 2.5 mg 2.5 mg Nebulizer Q4H PRN Junaid Pyle MD 2.5 mg at 07/26/18 1521 ROS: Review of Systems: See HPI for pertinent positives. All other review of systems is negative. PHYSICAL EXAMINATION BP 106/64 | Pulse 68 | Resp 16 | Wt 90.3 kg (199 lb) | BMI 30.26 kg/m | BSA 2.08 m Body mass index is 30.26 kg/m. General: no acute distress and stated age Head: normocephalic, no masses, lesions, tenderness or abnormalities Eyes: conjunctiva are pink and non-injected, sclera clear Neck: supple, no adenopathy, no bruits, normal jugular venous pulse, no hepatojugular reflux Chest: normal shape and normal respiratory effort Lungs: clear to auscultation and percussion Cardiac Exam: - regular rate & rhythm, systolic murmur - normal S1, normal S2 Pulses: 2(+) throughout Abdomen: abdomen soft, non-tender, no abnormal masses and no hepatosplenomegaly Musculoskeletal: no gait disturbance, no joint inflammation, no deforming arthritis Extremities: no edema and no cyanosis Neuro: grossly normal exam Laboratory Data Review: Hemoglobin Results: Lab Results Component Value Date/Time [facility] - [facility] 8.6 (L) 03/10/2023 11:38 AM [facility] 9.2 (L) 01/18/2023 02:21 PM [facility] - [facility] 9.5 (L) 01/15/2023 11:14 AM [facility] 12.6 (L) 05/22/2019 10:28 AM [facility] - [facility] 14.2 04/01/2018 03:47 PM [facility] - [facility] 13.5 (L) 04/26/2017 08:57 AM Impression: Coronary artery disease with significant two-vessel coronary artery disease and an occluded right coronary and left circumflex arteries with the only remaining artery being the LAD providing collaterals by cardiac catheterization 2005 Peripheral arterial disease History CVA Moderate aortic stenosis Posttraumatic stress disorder secondary medical procedures Adenocarcinoma of the lung treated with radiation. 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 I have asked him to have follow-up labs to see if his iron supplements have improved his anemia. If they have not that I think he should be referred to Hematology for further guidance regarding treatment and evaluation. I plan follow-up in the next few weeks to monitor his progress. This chart was completed in part utilizing [employer] Speech Voice Recognition Software. Grammatical errors, random word insertions, prounoun errors, and incomplete sentences are an occasional consequence of this system due to software limitations, ambient noise, and hardware issues. Any formal questions or concerns about the content, text, or information contained within the body of this dictation should be directly addressed to the provider for clarification. I spent a total of 40-54 minutes (exact time 50 mins) on the date of service in preparation, delivery, and documentation of the care provided to Walter Don excluding any time spent in the performance of separately billed services. Warren Montoya DO Cardiology, [address] [address] 04/07/2023 documented in this encounter Nursing Notes * Earle Mireles RN - 04/07/2023 2:28 PM EST Examination Room: room 17 Name: Walter Don Date of : (1945). Reason for Visit: for follow up Interim Hospitalization(s): denies Problems/Concerns: denies Chest Pain/SOB: denies [facility] Discussed: Yes [facility] is a way you can talk to your provider online through e-mail. Would you like to sign up? I can activate it for you? ALREADY ACTIVE Patient was instructed to not get up on the exam table until directed and assisted by their provider; patient is to remain seated in the chair/ wheelchair/ exam table for fall prevention and safety reasons. Patient is aware to have assistance to step down off exam table with personnel. Patient voiced full comprehension of instructions. documented in this encounter Plan of Treatment Upcoming Encounters Date Type Department Care Team (Late st Contact Info) Description 04/23/2023 11:00 AM EST Office Visit Podiatry [address] [place] [address] Bettye Herrmann DPM [address] [place] [address] [place] [address] 04/26/2023 11:30 AM EST Office Visit Orthopaedics [facility] [address] [facility] [place] [address] Zander Wilkins DO [address] [place] [address] 05/18/2023 1:00 PM EST Office Visit Gastroenterology, [facility] [address] [facility] [place] [address] Agnes Bowers CRNP [address] [facility] [place] [address] 05/31/2023 11:40 AM EST Office Visit Podiatry [facility] [address] [facility] [place] [address] Bettye Herrmann, DPM [address] [place] [address] [place] [address] 07/08/2023 10:00 AM EDT [facility] [address] [facility] [place] [address] 07/13/2023 11:00 AM EDT Office Visit Radiation Oncology, [address] [place] [address] Shawna Johnson MD [address] [place] [address] [place] [address] 07/19/2023 11:40 AM EDT Office Visit Family Practice [facility] [address] [facility] [place] [address] Johnnie Newby MD [address] [facility] [place] [address] 09/16/2023 9:00 AM EDT Office Visit Cardiology, [facility] [address] [facility] [place] [address] Deisy Aguirre CRNP [address] [place] [address] Pending Results Name Type Priority Associated Diagnoses Date /Time CBC WITH WBC DIFFERENTIAL Lab Routine Coronary artery disease involving comanche coronary artery of comanche heart without angina pectoris PAF (paroxysmal atrial fibrillation) (HCC) Anemia of chronic disease 04/07/2023 3:05 PM EST COMPREHENSIVE METABOLIC PANEL Lab Routine Coronary artery disease involving comanche coronary artery of comanche heart without angina pectoris PAF (paroxysmal atrial fibrillation) (HCC) Anemia of chronic disease 04/07/2023 3:05 PM EST Scheduled Orders Name Type Priority Associated Diagnoses Orde r Schedule CBC WITH WBC DIFFERENTIAL Lab Routine Coronary artery disease involving comanche coronary artery of comanche heart without angina pectoris PAF (paroxysmal atrial fibrillation) (HCC) Anemia of chronic disease Expected: 04/07/2023, Expires: 10/07/2023 COMPREHENSIVE METABOLIC PANEL Lab Routine Coronary artery disease involving comanche coronary artery of comanche heart without angina pectoris PAF (paroxysmal atrial fibrillation) (HCC) Anemia of chronic disease Expected: 04/07/2023, Expires: 10/07/2023 Scheduled Procedures Name Priority Associated Diagnoses Date/Ti me COLONOSCOPY FLEXIBLE PROXIMA L DIAGNOSTIC Recall History of colonic polyps Health Maintenance Due Date Last Done Comments Hepatitis B (1 of 3 - Risk 3-dose series) 2003 Depression Screening 05/31/2020 05/31/2019 Diabetic Eye Exam 04/09/2023 04/09/2022, , 03/30/2020, Additional history exists COVID-19 Vaccine ( season) 2023 02/25/2023, 02/10/2022, 07/13/2020, Additional history exists DISCUSS TOBACCO CESSATION (REFER TO SMARTSET #5044) 05/01/2023 05/01/2022, 02/13/2022 CKD PHOS USE SMARTSET 21634 06/05/202305/20, 06/03/2021, 06/04/2020, Additional history exists GFR [...] Additional history exists CKD HGB USE SMARTSET 16102 03/10/202403/10, 01/18/2023, 01/15/2023, Additional history exists COLONOSCOPY-EVERY 2 YRS AGES [...] this encounter Medical Devices Implanted Type Area Retirement [employer] Manager Device Identifier Shelf Expiration Date Model / Serial / Lot Lens Intraoc 24.0 - [id number] - [id number] Implanted:Qty: 1 on 06/01/2017 by Nikhil Bolton MD at [facility] Left: Eye [employer] 07/17/2021 [id number] / [id number] / [id number] Lens Intraoc 24.0 - [id number] - [id number] Implanted:Qty: 1 on 06/08/2017 by Nikhil Bolton MD at OR [facility] Right: Eye [employer] 07/17/2021 [id number] / [id number] / [id number] documented as of this encounter Visit Diagnoses Diagnosis Coronary artery disease involving comanche coronary artery of comanche heart without angina pectoris- Primary PAF (paroxysmal atrial fibrillation) (HCC) Atrial fibrillation Anemia of chronic disease Anemia of other chronic disease documented in this encounter Advance Directives Documents on File Type Date Recorded Patient Cylinder Batcher Expl anation Advance Directives and Livin g Will 11/20/2005 ADVANCE DIRECTIVE Latest Code Status on [...] and were consensually agreed upon. Care Teams Label Cutter Relationship Specialty Start Date End Date Johnnie Newby MD [address] [place] [address] PCP - General Family Medicine 09/13/20 documented as of this encounter"
--- OUTSIDE RECORDS SUMMARY | 2023-04-15 00:14 | External Medical Summary | Summary of Care ---
Author Name Unknown Organization [facility] Address [address] [place] [address] Phone [phone] Care Team Providers Care Glaze Supervisor Name Role Phone Johnnie Newby MD Primary Care Provider [phone] Reason for Visit * Reason Onset Date Comments Test Results 04/02/2023 Encounter Details Date Type Department Care Team (Late st Contact Info) Description 04/02/2023 Telephone Cardiology, [facility] [address] [facility] [address] Deisy Aguirre CRNP 132 [facility] [place] [address] Test Results (/) Allergies Active Allergy Reactions Criticality Noted Date Comments Acetaminophen 05/06/2005 headaches documented as of this encounter (statuses as of 04/02/2023) Medications Medication Sig Dispensed Refills Start Date End Date Status DAILY MULTIVITAMIN PO TABS with lycopene 0 Active BUSPAR 15 MG PO TABS Take by mouth. Uses as needed 0 Active clonazePAM (KLONOPIN) 0.5 MG Tablet Uses as needed 0 06/17/2016 Active ONETOUCH ULTRA BLUE STRPIndications:Type 2 diabetes mellitus with hemoglobin A1c goal of less than 7.0% ([facility]) TEST ONCE DAILY 100 Strip 5 03/02/2018 [...] 24 Hour (Imdur)Indications:C oronary artery disease involving [place] coronary artery without angina pectoris TAKE ONE [...] 270 Capsule 0 07/08/2022 4 Active Tiotropium [place] Monohydrate 18 MCG Inhalation Capsule (Spiriva) INHALE ONE CAPSULE VIA HANDIHALER EVERY MORNING. DO NOT SWALLOW CAPSULE. 90 Capsule 3 06/26/2022 4 Active Fluticasone-Salmeter ol 230-21 MCG/ACT Inhalation Aerosol (Advair)Indications: COPD, group B, by GOLD 2017 classification ([facility]) INHALE TWO PUFFS BY MOUTH EVERY MORNING AND INHALE TWO PUFFS BY MOUTH AT BEDTIME, RINSE MOUTH AFTER USE 36 g 3 04/17/2022 4 Active Roflumilast 500 MCG Oral Tablet (Daliresp)Indication s:COPD, group D, by GOLD 2017 classification ([facility]) TAKE ONE TABLET BY MOUTH EVERY MORNING [...] as of this encounter (statuses as of 04/02/2023) Active Problems Problem Noted Date Diagnosed Date [...] Dyslipidemia 02/07/2019 Peripheral arterial disease 12/28/2018 Old [place] (myocardial infarction) 01/03/2018 YISSEL treated with BiPAP [...] tis 01/05/2014 Coronary artery disease invo lving [place] coronary artery of [place] heart without angina pectoris 11/27/2013 Tobacco abuse 11/27/2013 HTN, goal below 130/80 03/06/2009 Overview: Modified per HTN protocol #16. documented as of this encounter (statuses as of 04/02/2023) Resolved Problems Problem Noted Date Diagnosed Date [...] as of this encounter (statuses as of 04/02/2023) Immunizations Name Administration Dates Next Due COVID-19 mRNA, LNP-s, No Pre serve, 2-Dose Series (Zoomaal) 02/25/2023,02/10/2022,07/13/2020,06/17 Pneumococcal Conjugate Vacc, 13 Valent (Prevnar) [...] on file documented as of this encounter Miscellaneous Notes * Telephone Encounter - Lexie Gardner RN - 04/02/2023 3:47 PM EST Spoke with Dr. Montoya regarding below information. Recommends appointment to discuss results and plan. Called, spoke with patient. Assisted in scheduling with Dr. Montoya 04/07/23. * Telephone Encounter - Lexie Gardner RN - 04/02/2023 1:30 PM EST Called, spoke with patient. Reviewed results/recommendations below in detail. Patient verbalizing understanding. Reports having past abnormal heart catheterization with collaterals noted. Questions if this could be cause of abnormal findings on stress. Reports feeling well from cardiac standpoint. Ongoing shortness of breath which is not new and has not changed. Stress performed in anticipation for knee replacement surgery which has yet to be scheduled. Please advise. * Telephone Encounter - Lexie Gardner RN - 04/02/2023 1:26 PM EST ----- Message from CHRISTOPHE Carlos sent at 04/02/2023 5:41 AM EST ----- Please notify patient that his stress test is abnormal suggesting that he may have some blockages in his heart. He needs to have a heart catheterization. Is there anyway he can be seen by someone in the office as an acute? Dr. Montoya is his primary. If not, and he understands this and is willing to have a cath, then it can be arranged. documented in this encounter Plan of Treatment Upcoming Encounters Date Type Department Care Team (Late st Contact Info) Description 04/07/2023 2:30 PM EST Office Visit [facility], [facility] [place] [address] Warren Montoya, [address] [place] [address] 04/23/2023 11:00 AM EST Office Visit Podiatry [facility] 132 [facility] [place] [address] Bettye Herrmann, DPM [address] [place] [address] 04/26/2023 11:30 AM EST Office Visit Orthopaedics [facility] [address] [facility] [place] [address] Zander Wilkins, DO [address] [place] [address] 05/05/2023 11:30 AM EST Office Visit Gastroenterology, [facility] [address] [facility] [place] [address] Agnes Bowers CRNP [address] [place] [address] 05/31/2023 11:40 AM EST Office [facility]iatry [facility] [place] [address] Bettye Herrmann, DPM [address] [facility] [place] [address] 07/08/2023 10:00 AM EDT [facility] [address] [facility] [place] [address] 07/13/2023 11:00 AM EDT Office Visit Radiation Oncology, [place] [address] [facility] [place] [address] Shawna Johnson MD [address] [place] [address] [place] [address] 07/19/2023 11:40 AM EDT Office Visit Family Practice [facility] [address] [facility] [place] [address] Johnnie Newby MD 132 [facility] [place] [address] 09/16/2023 9:00 AM EDT Office Visit Cardiology, [facility] [address] [facility] [place] [address] Deisy Aguirre CRNP 132 [facility] [place] [address] Scheduled Procedures Name Priority Associated Diagnoses Date/Ti [...] exists DISCUSS TOBACCO CESSATION (REFER TO SMARTSET #8116) 05/01/2023 05/01/2022, 02/13/2022 CKD PHOS USE SMARTSET 96232 06/05/202305/20, 06/03/2021, 06/04/2020, Additional history exists GFR [...] Additional history exists CKD HGB USE SMARTSET 01845 03/10/202403/10, 01/18/2023, 01/15/2023, Additional history exists COLONOSCOPY-EVERY [...] this encounter Medical Devices Implanted Type Area Block Captain Device Identifier Shelf Expiration Date Model / Serial / Lot Lens Intraoc 24.0 - [id number] - [id number] Implanted:Qty: 1 on 06/01/2017 by Nikhil Bolton MD at OR [facility] Left: Eye [employer]OM[employer] 07/17/2021 [id number] / [id number] / [id number] Lens Intraoc 24.0 - [id number] - [id number] Implanted:Qty: 1 on 06/08/2017 by Nikhil Bolton MD at OR [facility] Right: Eye [employer]CH [employer]OMB 07/17/2021 [id number] / [id number] / [id number] documented as of this encounter Advance Directives Documents on File Type Date Recorded Patient Community Organizer Expl 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 Care Teams Glaze Supervisor Relationship Specialty Start Date End Date Johnnie Newby MD 132 [facility] [place] [address] PCP - General Family Medicine 09/13/20 documented as of this encounter
--- OUTSIDE RECORDS SUMMARY | 2023-04-15 00:14 | External Medical Summary | Summary of Care ---
Author Name Unknown Organization [facility] Address [address] [place] [facility] [place] [place] [address] Phone [phone] Care Team Providers Care Dispatcher Ship Pilot Name Role Phone Johnnie Newby MD Primary Care Provider [phone] Reason for Referral * Evaluate & Treat - Unlimited Visits (Within 10 days (routine)) - Authorized Specialty Diagnoses / Procedures Referred By Treva judd Referred To Contact Podiatry Diagnoses Injury of right foot, initial encounter Zander Wilkins DO [address] [place] [address] Referral ID Status Reason Start Date Expiration Date Visits Requested Visits Authorized [id number] Authorized Specialty Services Required 3 [phone] Question Answer Referral Priority Within 10 days (routine) Which condition are you referring this patient for? General Podiatry/Other Where should this appointment be scheduled? [facility] Comments F/u Dr Herrmann 3 weeks for fx seen in Reason for Visit * Reason Comments NEW PATIENT Right foot Encounter Details Date Type Department Care Team (Late st Contact Info) Description 03/10/2023 11:45 PM EST Office Visit Orthopaedics [facility] [address] [place] [address] Zander Wilkins DO [address] [place] [address] Injury of right foot, initial encounter*; Closed nondisplaced fracture of fifth metatarsal bone of right foot, initial encounter Allergies Active Allergy Reactions Criticality Noted Date Comments Acetaminophen 05/06/2005 headaches documented as of this encounter (statuses as of 03/10/2023) Medications Medication Sig Dispensed Refills Start Date End Date Status DAILY MULTIVITAMIN PO TABS with lycopene 0 Active BUSPAR 15 MG PO TABS Take by mouth. Uses as needed 0 Active clonazePAM (KLONOPIN) 0.5 MG Tablet Uses as needed 0 06/17/2016 Active ONETOUCH ULTRA BLUE STRPIndications:Type 2 diabetes mellitus with hemoglobin A1c goal of less than 7.0% ([facility]) TEST ONCE DAILY 100 Strip 5 03/02/2018 Active Ventolin HFA 108 (90 Base) MCG/ACT Inhalation Aerosol SolutionIndications: COPD, moderate ([facility]) Take 2 Puffs by mouth [...] by mouth in the morning. 0 Active Omeprazole 20 MG Oral Capsule Delayed Release (PriLOSEC)Indication s:Gastroesophageal reflux disease without esophagitis TAKE ONE CAPSULE BY MOUTH EVERY MORNING *NEED UPDATED LABS* 90 Capsule 1 10/02/2022 4 Active Isosorbide Mononitrate ER 60 MG Oral Tablet Extended Release 24 Hour (Imdur)Indications:C oronary artery disease involving [place] coronary artery without angina pectoris TAKE ONE [...] 270 Capsule 0 07/08/2022 4 Active Tiotropium [place] Monohydrate 18 MCG Inhalation Capsule (Spiriva) INHALE ONE CAPSULE VIA HANDIHALER EVERY MORNING. DO NOT SWALLOW CAPSULE. 90 Capsule 3 06/26/2022 4 Active Fluticasone-Salmeter ol 230-21 MCG/ACT Inhalation Aerosol (Advair)Indications: COPD, group B, by GOLD 2017 classification ([facility]) INHALE TWO PUFFS BY MOUTH EVERY MORNING AND INHALE TWO PUFFS BY MOUTH AT BEDTIME, RINSE MOUTH AFTER USE 36 g 3 04/17/2022 4 Active Roflumilast 500 MCG Oral Tablet (Daliresp)Indication s:COPD, group D, by GOLD 2017 classification ([facility]) TAKE ONE TABLET BY MOUTH [...] (toPROL XL)Indications:SVT (supraventricular tachycardia),NSVT (nonsustained ventricular tachycardia) ([facility]) TAKE ONE TABLET BY MOUTH EVERY DAY [...] at bedtime 90 Tablet 0 02/09/2023 Active Hospital, Clinic, or Other Facility Administered Medication Ordered Dose Route Frequency Start Date End Date Status albuterol sulfate (PROVENTIL) (2.5 MG/3ML) 0.083% inhalation solution 2.5 mgIndications:COPD, severe (HCC) 2.5 mg NEBULIZER Q4H PRN 07/08/2018 Active documented as of this encounter (statuses as of 03/10/2023) Active Problems Problem Noted Date Diagnosed Date [...] Dyslipidemia 02/07/2019 Peripheral arterial disease 12/28/2018 Old [place] (myocardial infarction) 01/03/2018 YISSEL treated with BiPAP [...] tis 01/05/2014 Coronary artery disease invo lving [place] coronary artery of [place] heart without angina pectoris 11/27/2013 Tobacco abuse 11/27/2013 HTN, goal below 130/80 03/06/2009 Overview: Modified per HTN protocol #16. documented as of this encounter (statuses as of 03/10/2023) Resolved Problems Problem Noted Date Diagnosed Date [...] as of this encounter (statuses as of 03/10/2023) Immunizations Name Administration Dates Next Due COVID-19 [...] on file documented as of this encounter Progress Notes * Zander Wilkins, - 03/10/2023 11:47 AM EST Walter Wei [place] [id number] Walter Don is a 77 year old male who presents for consultation to [facility] for a rightfoot injury/pain. Consult requested by Self. Walter Don is here with his/her Date of Injury: 03/07 Quality: reviewed and agree with Nursing Notes for HPI elements History: History - patient reports hurt his foot as he tripped over his Mechanism of injury: direct trauma Modifying factors: activity exacerbates Review of Systems:Constitional: No change in weight, No weakness, No fatigue, and No fevers, sweats, or chills Past Medical History: Diagnosis Date Anemia of [...] (HCC) 10/23/2014 ICD-10 update of inactive term Family History Problem Relation Age of Onset Cancer Mother colon Gastro-intestinal disorder Sister crohn's No Known Problems Father Heart disease Brother Heart disease Brother Social History Socioeconomic History Marital status: Spouse name: Not on file Number of children: Not on file Years of education: Not on file Highest education level: Not on file Occupational History Not on file Tobacco Use Smoking status: Every Day Packs/day: 1.50 Years: 69.00 Additional pack years: 0.00 Total pack years: 103.50 Types: Cigarettes Smokeless tobacco: Never Tobacco comments: started age 7 Vaping Use Vaping Use: Never used Substance and Sexual Activity Alcohol use: No Drug use: No Sexual activity: Not on file Other Topics Concern Not on file Social History Narrative No pets. No mold. Social Determinants of Health Financial Resource Strain: Not on file Food Insecurity: No Food Insecurity (12/28/2018) Hunger Vital Sign Worried About Running Out of Food in the Last Year: Never true Ran Out of Food in the Last Year: Never true Transportation Needs: Not on file Physical Activity: Not on file Stress: Not on file Social Connections: Not on file Intimate Partner Violence: Not on file Housing Stability: Not on file Current Outpatient Medications Medication Sig Dispense Refill DAILY MULTIVITAMIN PO TABS with lycopene BUSPAR 15 MG PO TABS Take by mouth. Uses as needed clonazePAM (KLONOPIN) 0.5 MG Tablet Uses as needed 0 ArtVenueTOUCH ULTRA BLUE STRP TEST ONCE DAILY 100 Strip 5 Ventolin HFA 108 (90 Base) MCG/ACT Inhalation [...] 1 Tablet by mouth in the morning. Omeprazole 20 MG Oral Capsule Delayed Release (PriLOSEC) TAKE ONE CAPSULE BY MOUTH EVERY MORNING *NEED UPDATED LABS* 90 Capsule 1 Isosorbide Mononitrate ER 60 MG Oral Tablet [...] MOUTH EVERY MORNING 270 Capsule 0 Tiotropium [place] Monohydrate 18 MCG Inhalation Capsule (Spiriva) INHALE [...] daily as needed foranxiety 180 Tablet 0 FLUoxetine HCl 20 MG Oral Capsule (PROzac) 3 caps by mouth every morning 270 Capsule 0 Mirtazapine 15 MG Oral Tablet (Remeron) 1/2 tab (7.5mg) by mouth every night 45 Tablet 0 risperiDONE 0.5 MG Oral Tablet (RisperDAL) 1 tab by mouth every night at bedtime 90 Tablet 0 Current Facility-Administered Medications Medication Dose Route Frequency Provider Last Rate Last Admin albuterol sulfate (PROVENTIL) (2.5 MG/3ML) 0.083% inhalation solution 2.5 mg 2.5 mg Nebulizer Q4H PRN Junaid Pyle MD 2.5 mg at 07/26/18 1521 Physical Exam General: in no acute distress Mood and Affect: normal Gait and Station: antalgic Peripheral pulses: normal on affect extremity Skin examination: abnormal - mild swelling and bruising along the 5th metatarsal on affect extremity Sensation: normal on affected extremity Foot and ankle exam, bilateral Active range of motion: Right - Dorsiflexion 15 degrees, Plantarflexion 40 degrees Inspection: Patient also has 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 noted on exam Palpation: Tender to palpation at base of 5th metatarsal and no swelling Right Peroneal Tendon Subluxation: no Post Tibial Tendon tenderness to palpation: negative Radiology (I have personally reviewed the films done today): Right foot x-ray reveals fracture at the base of the 5th metatarsal transverse but not a Vázquez fracture also shows chronic deformity of lright 5th toe as well Assessment and Plan: boot, limited weight bearing, fx care/ ice.OTC meds as allowed,f/u Dr Herrmann 3 weeks Injury of right foot, initial encounter (Primary) - XR FOOT 3 OR MORE VIEWS - PODIATRY REFERRAL OP Closed nondisplaced fracture of fifth metatarsal bone of right foot, initial encounter Fx care not initiated Zander Wilkins DO Primary Care Sports Medicine Orthopaedics [facility] 132 [facility] [place] [address] documented in this encounter Nursing Notes * Kirstie Dobbs MED ASSIST - 03/10/2023 11:48 AM EST Pt presents today for right foot injury, DOI 03/07/23. Pt tripped over his while she was having a dizzy moment and he tried catching her. documented in this encounter Plan of Treatment Upcoming Encounters Date Type Department Care Team (Late st Contact Info) Description 03/16/2023 10:00 AM EST Telemedicine Interventional [facility] Center, [facility] 132 [facility] [place] [address] Pb Alexander DO [address] [place] [address] 04/02/2023 10:20 AM EST Office Visit Podiatry [facility] 132 [place] [address] Bettye Herrmann DPM [address] [place] [address] 04/26/2023 11:30 AM EST Office Visit Orthopaedics [facility] [address] [place] [address] Zander Wilkins, [address] [place] [address] 05/05/2023 11:30 AM EST Office Visit Gastroenterology, [facility] 132 [facility] [place] [address] Agnes Bowers CRNP [address] [place] [address] 05/31/2023 11:40 AM EST Office Visit Podiatry [facility] [address] [facility] [place] [address] Bettye Herrmann DPM [facility] [place] [address] 07/08/2023 10:00 AM EDT Imaging Radiology [facility] 1st Floor, [place] [address] [facility] [place] [address] 07/13/2023 11:00 AM EDT Office Visit Radiation Oncology, [address] [place] [address] Shawna Johnson MD [address] [place] [address] [place] [address] 07/19/2023 11:40 AM EDT Office Visit Family Practice [facility] 132 [facility] [place] [address] Johnnie Newby MD [address] [place] [address] 09/16/2023 9:00 AM EDT Office Visit Cardiology, [facility] [address] [place] [address] Deisy Aguirre CRNP [address] [place] [address] Pending Results Name Type Priority Associated Diagnoses Date /Time XR FOOT 3 OR MORE VIEWS Medical Imaging Routine Injury of right foot, initial encounter 03/10/2023 11:58 AM EST Scheduled Procedures Name Priority Associated Diagnoses Date/Ti me COLONOSCOPY FLEXIBLE PROXIMA L DIAGNOSTIC Recall History of colonic polyps Scheduled Referrals Name Type Priority Associated Diagnoses Orde r Schedule PODIATRY REFERRAL OP Referral Within 10 days (routine) Injury of right foot, initial encounter Ordered: 03/10/2023 Health Maintenance Due Date Last Done Comments Hepatitis B (1 of 3 - Risk 3-dose series) 2003 Depression Screening 05/31/2020 05/31/2019 Diabetic Eye Exam 04/09/2023 04/09/2022, , 03/30/2020, Additional history exists COVID-19 Vaccine ( season) 2023 02/25/2023, 02/10/2022, 07/13/2020, Additional history exists DISCUSS TOBACCO CESSATION (REFER TO SMARTSET #3291) 05/01/2023 05/01/2022, 02/13/2022 CKD PHOS USE SMARTSET 44544 06/05/202305/20, 06/03/2021, 06/04/2020, Additional history exists GFR [...] Additional history exists CKD HGB USE SMARTSET 76331 03/10/202403/10, 01/18/2023, 01/15/2023, Additional history exists COLONOSCOPY-EVERY [...] this encounter Medical Devices Implanted Type Area [employer] Communications Administrator Device Identifier Shelf Expiration Date Model / Serial / Lot Lens Intraoc 24.0 - [id number] - [id number] Implanted:Qty: 1 on 06/01/2017 by Nikhil Bolton MD at OR [facility] Left: Eye BA[employer]CH [employer] LOMB 07/17/2021 [id number] / [id number] / [id number] Lens Intraoc 24.0 - [id number] - [id number] Implanted:Qty: 1 on 06/08/2017 by Nikhil Bolton MD at OR [facility] Right: Eye BAUSCH [employer] LOMB 07/17/2021 [id number] / [id number] / [id number] documented as of this encounter Visit Diagnoses Diagnosis Injury of right foot, initial encounter- Primary Closed nondisplaced fracture of fifth metatarsal bone of right foot, initial encounter documented in this encounter Advance Directives Documents on File Type Date Recorded Patient Training Technician Expl anation Advance Directives and Yu Watkins [...] and were consensually agreed upon. Care Teams Dispatcher Ship Pilot Relationship Specialty Start Date End Date Johnnie Newby MD [address] [place] [address] PCP - General Family Medicine 09/13/20 documented as of this encounter
--- OUTSIDE RECORDS SUMMARY | 2023-04-15 00:14 | External Medical Summary | Summary of Care ---
Author Name Unknown Organization [facility] Address [address] [place] [address] Phone [phone] Care Team Providers Care Rehabilitation Services Aide Name Role Phone Johnnie Newby MD Primary Care Provider [phone] Reason for Referral * Precert (Within 10 days (routine)) - Pending Review Specialty Diagnoses / Procedures Referred By Contac t Referred To Contact Radiology Diagnoses Coronary artery disease involving anvik coronary artery of anvik heart without angina pectoris Preoperative cardiovascular examination HTN, goal below 130/80 PAF (paroxysmal atrial fibrillation) (HCC) Procedures NM MYOCARD PERF IMG SPECT MULT STUDIES WITH PHARM INTERV Deisy Aguirre CRNP [address] [facility] [address] Referral ID Status Reason Start Date Expiration Date Visits Requested Visits Authorized [id number] Pending Review Precert 03/10/2023 999 999 Reason for Visit * Reason Comments Follow Up Encounter Details Date Type Department Care Team (Late st Contact Info) Description 03/10/2023 10:30 AM EST Office Visit Cardiology, [facility] [address] [place] [address] Deisy Aguirre CRNP [address] [facility] [address] Coronary artery disease involving anvik coronary artery of anvik heart without angina pectoris*; Preoperative cardiovascular examination; HTN, goal below 130/80; PAF (paroxysmal atrial fibrillation) (HCC); Anemia of chronic disease Allergies Active Allergy Reactions Criticality Noted Date Comments Acetaminophen 05/06/2005 headaches documented as of this encounter (statuses as of 03/13/2023) Medications Medication Sig Dispensed Refills Start Date End Date Status DAILY MULTIVITAMIN PO TABS with lycopene 0 Active BUSPAR 15 MG PO TABS Take by mouth. Uses as needed 0 Active clonazePAM (KLONOPIN) 0.5 MG Tablet Uses as needed 0 7 Active ONETOUCH ULTRA BLUE STRPIndications:Typ e 2 diabetes mellitus with hemoglobin A1c goal of less than 7.0% ([facility]) TEST ONCE DAILY 100 Strip 5 8 Active Ventolin HFA 108 (90 Base) MCG/ACT Inhalation Aerosol SolutionIndications :COPD, moderate ([facility]) Take 2 Puffs by mouth 4 times a day as needed for Shortness of Breath or Wheezing. 54 g 1 1 Active Mirtazapine 15 MG Oral Tablet (Remeron) Take one and half tablets by mouth daily at bedtime 0 1 Active Gabapentin 300 MG Oral Capsule (Neurontin) Take by mouth 1 Capsule before bedtime. 90 Capsule 3 2 Active BiPAP every night at bedtime. 0 Active Vitamin B-12 1000 MCG Oral Tablet (Cyanocobalamin) Take 1 Tablet by mouth in the morning. 0 Active Omeprazole 20 MG Oral Capsule Delayed Release (PriLOSEC)Indicatio ns:Gastroesophageal reflux disease without esophagitis TAKE ONE CAPSULE BY MOUTH EVERY MORNING *NEED UPDATED LABS* 90 Capsule 1 3 10/02/19 24 Active Isosorbide Mononitrate ER 60 MG Oral Tablet Extended Release 24 Hour (Imdur)Indications: Coronary artery disease involving anvik coronary artery without angina pectoris TAKE ONE TABLET BY MOUTH EVERY MORNING 90 Tablet 3 3 09/18/19 24 Active Lisinopril 20 MG Oral Tablet (Prinivil)Indicatio ns:HTN, goal below 140/90 TAKE ONE TABLET BY MOUTH EVERY MORNING 90 Tablet 2 3 09/18/19 24 Active metFORMIN HCl 1000 MG Oral Tablet (Glucophage) TAKE ONE TABLET BY MOUTH EVERY MORNING 100 Tablet 1 3 09/03/19 24 Active FLUoxetine HCl 20 MG Oral Capsule (PROzac) TAKE THREE CAPSULES BY MOUTH EVERY MORNING 270 Capsule 0 3 07/08/19 24 Active Tiotropium Velva Monohydrate 18 MCG Inhalation Capsule (Spiriva) INHALE ONE CAPSULE VIA HANDIHALER EVERY MORNING. DO NOT SWALLOW CAPSULE. 90 Capsule 3 3 06/26/19 24 Active Fluticasone-Salmete rol 230-21 MCG/ACT Inhalation Aerosol (Advair)Indications :COPD, group B, by GOLD 2017 classification ([facility]) INHALE TWO PUFFS BY MOUTH EVERY MORNING AND INHALE TWO PUFFS BY MOUTH AT BEDTIME, RINSE MOUTH AFTER USE 36 g 3 2 05/18/19 24 Active Roflumilast 500 MCG Oral Tablet (Daliresp)Indicatio ns:COPD, group D, by GOLD 2017 classification ([facility]) TAKE ONE TABLET BY MOUTH EVERY MORNING 90 Tablet 1 3 11/26/19 24 Active Apixaban 5 MG Oral Tablet (Eliquis) Take 1 Tablet by mouth in the morning and 1 Tablet before bedtime. 180 Tablet 3 3 Active Aspirin 81 MG Oral Tablet Chewable chew 1 Tablet by mouth in the morning. 100 Tablet 3 3 Active Metoprolol Succinate ER 25 MG Oral Tablet Extended Release 24 Hour (toPROL XL)Indications:SVT (supraventricular tachycardia),NSVT (nonsustained ventricular tachycardia) ([facility]) TAKE ONE TABLET BY MOUTH EVERY DAY 90 Tablet 3 3 12/09/19 24 Active Atorvastatin Calcium 80 MG Oral Tablet (Lipitor) TAKE ONE TABLET BY MOUTH AT BEDTIME 90 Tablet 1 3 12/09/19 24 Active Vitron-C 65-125 MG Oral Tablet (Iron-Vitamin C 65-125 mg per tab) Take 1 Tablet by mouth in the morning. 0 Active Colchicine 0.6 MG Oral Tablet Take 2 tablets by mouth. One hour later, take 1 tablet by mouth. Take 1 tablet by mouth once daily after until symptoms resolve. 90 Tablet 3 3 Active Furosemide 40 MG Oral Tablet (Lasix)Indications: HTN, goal below 140/90 Take 1 Tablet by mouth in the morning. 100 Tablet 1 3 Active Fluticasone Propionate 50 MCG/ACT Nasal Suspension (Flonase) USE TWO SPRAYS IN EACH NOSTRIL IN THE MORNING 16 g 1 3 Active busPIRone HCl 10 MG Oral Tablet (Buspar) take 1-2 tabs (10-20mg) by mouth twice daily as needed for anxiety 180 Tablet 0 3 Active FLUoxetine HCl 20 MG Oral Capsule (PROzac) 3 caps by mouth every morning 270 Capsule 0 3 Active Mirtazapine 15 MG Oral Tablet (Remeron) 1/2 tab (7.5mg) by mouth every night 45 Tablet 0 3 Active risperiDONE 0.5 MG Oral Tablet (RisperDAL) 1 tab by mouth every night at bedtime 90 Tablet 0 3 Active risperiDONE 0.25 MG Oral TabletIndications:p t takes .5 mg at bedtime and .025 mid morning Take 2 Tablets by mouth at bedtime. 0 03/10/20 23 Discontinued Hospital, Clinic, or Other Facility Administered Medication Ordered Dose Route Frequency Start Date End Date Status albuterol sulfate (PROVENTIL) (2.5 MG/3ML) 0.083% inhalation solution 2.5 mgIndications:COPD, severe (HCC) 2.5 mg NEBULIZER Q4H PRN 07/08/2018 Active documented as of this encounter (statuses as of 03/13/2023) Active Problems Problem Noted Date Diagnosed Date [...] Dyslipidemia 02/07/2019 Peripheral arterial disease 12/28/2018 Old ND (myocardial infarction) 01/03/2018 YISSEL treated with BiPAP [...] tis 01/05/2014 Coronary artery disease invo lving anvik coronary artery of anvik heart without angina pectoris 11/27/2013 Tobacco abuse 11/27/2013 HTN, goal below 130/80 03/06/2009 Overview: Modified per HTN protocol #16. documented as of this encounter (statuses as of 03/13/2023) Resolved Problems Problem Noted Date Diagnosed Date [...] as of this encounter (statuses as of 03/13/2023) Immunizations Name Administration Dates Next Due COVID-19 [...] Sign Reading Time Taken Comments Blood Pressure 100/50 03/10/2023 10:35 AM EST Pulse 60 03/10/2023 10:35 AM EST Temperature - - Respiratory Rate 14 03/10/2023 10:35 AM EST Oxygen Saturation - - Inhaled Oxygen Concentration - - Weight 89.8 kg (198 lb) 03/10/2023 10:35 AM EST Height - - Body Mass Index 30.11 02/15/2023 9:44 AM EDT documented in this encounter Progress Notes * Deisy Aguirre CRNP - 03/10/2023 10:48 AM EST 03/10/2023 Cardiology Follow Up Primary Patrol Lady: Dr. Montoya Cardiac Problems: Coronary artery disease, stable Peripheral arterial disease History CVA Moderate aortic stenosis Posttraumatic stress disorder secondary medical procedures Adenocarcinoma of the lung treated with radiation. 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 Prior to that, he saw Dr. Montoya on 12/08/22. He had undergone a zio monitor after a recent CVA and there was multiple episodes of SVT which may be consistentwith PAF. His Aggrenox was discontinued and he was started on Eliquis 5mg BID along with ASA 81mg. U nfortunately since that time cardiology dept received labs back on this patient which demonstrated anemia. Additional iron studies show deficiency and FOCB was positive. He was sent to see GI due to new unexplained iron deficiency anemia and underwent EGD and colonoscopy for anemia evaluation last December. EGD/colonoscopy studies revealed a gastric polyp which was sent for biopsy, but no luke source of bleeding. Patient presents today feeling ok. He has since resumed his oral anticoagulation with no luke bleedings. He is do for a CBC to evaluate response. Denies any cardiac questions or concerns. BP remains low normal, patient denies any dizziness, lightheadedness of syncope. Denies any decrease in his overall functional capacity from a cardiac standpoint. NO chest pain, pressure or anginal equivalent. He is reporting mobility issues due to osteoarthritis of his knees andplans to see his orthopedic surgeon in the next month to discuss pursuing a total knee replacement. Reports compliance on all medication therapies with no untoward effects. REVIEW OF SYSTEMS: See HPI for pertinent positives. All others negative other than those noted in the HPI. CONSTITUTIONAL: No change in weight, No weakness, No fatigue and No fevers, No sweats or chills. PULMONARY: No cough, sputum, or hemoptysis, No wheezing, No shortness or breath and No recent change in breathing. CARDIOVASCULAR: No chest pain, No dyspnea on exertion, No edema, No palpitations and No syncope. GASTROINTESTINAL: No abdominal pain, No change in bowel habits, No significant heartburn, No nausea, No vomiting, No diarrhea, No constipation, No blood in stools or black tarry stools. No dysphagia. HEMATOLOGIC: No abnormal bleeding and No bruising. NEUROLOGICAL: Normal balance, No headaches and No weakness. Review of patient's allergies indicates: Allergen Reactions Tylenol [Acetaminophen] headaches Current Outpatient Medications Medication Sig Dispense Refill DAILY MULTIVITAMIN PO TABS with lycopene BUSPAR 15 MG PO TABS Take by mouth. Uses as needed clonazePAM (KLONOPIN) 0.5 MG Tablet Uses as needed 0 ONETOUCH ULTRA BLUE STRP TEST ONCE DAILY [...] BY MOUTH EVERY MORNING 90 Tablet 3 metFORMIN HCl 1000 MG Oral Tablet (Glucophage) TAKE ONE TABLET BY MOUTH EVERY MORNING 100 Tablet 1 FLUoxetine HCl 20 MG Oral Capsule (PROzac) TAKE THREE CAPSULES BY MOUTH EVERY MORNING 270 Capsule 0 Tiotropium Velva Monohydrate 18 MCG Inhalation Capsule (Spiriva) INHALE [...] daily as needed foranxiety 180 Tablet 0 risperiDONE 0.5 MG Oral Tablet (RisperDAL) 1 tab by mouth every night at bedtime 90 Tablet 0 Lisinopril 20 MG Oral Tablet (Prinivil) TAKE ONE TABLET BY MOUTH EVERY MORNING 90 Tablet 2 FLUoxetine HCl 20 MG Oral Capsule (PROzac) 3 caps by mouth every morning 270 Capsule 0 Mirtazapine 15 MG Oral Tablet (Remeron) 1/2 tab (7.5mg) by mouth every night 45 Tablet 0 Current Facility-Administered Medications Medication Dose Route Frequency Provider Last Rate Last Admin albuterol sulfate (PROVENTIL) (2.5 MG/3ML) 0.083% inhalation solution 2.5 mg 2.5 mg Nebulizer Q4H BRIANN Junaid Pyle MD 2.5 mg at 07/26/18 1521 Past Medical History: Diagnosis Date Anemia of [...] hemoglobin A1c goal of less than 8.0% ([facility]) 10/23/2014 ICD-10 update of inactive term Family History Problem Relation Age of Onset Cancer Mother colon Gastro-intestinal disorder Sister crohn's No Known Problems Father Heart disease Brother Heart disease Brother Social History Socioeconomic History Marital status: Tobacco Use Smoking status: Every Day Packs/day: 1.50 Years: 69.00 Additional pack years: 0.00 Total pack years: 103.50 Types: Cigarettes Smokeless tobacco: Never Tobacco comments: started age 7 Vaping Use Vaping Use: Never used Substance and Sexual Activity Alcohol use: No Drug use: No Social History Narrative No pets. No mold. Social Determinants of Health Food Insecurity: No Food Insecurity (12/28/2018) Hunger Vital Sign Worried About Running Out of Food in the Last Year: Never true Ran Out of Food in the Last Year: Never true OBJECTIVE/PHYSICAL EXAMINATION: BP 100/50 | Pulse 60 | Resp 14 | Wt 89.8 kg (198 lb) | BMI 30.11 kg/m | BSA 2.08 m General: No acute distress. A+Ox3. HEENT: Normocephalic. Atraumatic. PERRL. EOMI. Conjunctiva and sclera clear. NECK: No carotid bruits. No JVD. Carotid upstrokes are brisk. Heart: RRR. S1 and S2 noted. No murmur. No rubs or gallops. PMI non displaced. Lungs: Clear to auscultation. No wheezes.No rhonchi. No rales. Abdomen: Normal bowel sounds. Soft. Nontender. No masses or organomegaly. No abdominal bruits. Extremities: No edema. No clubbing or cyanosis. Pulses: radial=2/4, posterior tibial=2/4, dorsalis pedis = 2/4. NEURO: No focal deficits. PSYCH: Appropriate affect and insight. DATA Labs & Imaging Reviewed Below: EKG 12/08/22 Sinus bradycardia with 1st degree AV block with occasional Premature ventricular complexes Nonspecific ST and T wave abnormality Abnormal ECG When compared with ECG of 28-MAY-2021 10:48, Premature ventricular complexes are now Present Questionable change in The axis Nonspecific T wave abnormality, worse in Lateral leads Ventricular Rate: 57 Echocardiogram 07/31/22 The qualitative LV ejection fraction is 65-69% (normal). The left ventricular cavity size is normal. The LV wall thickness is mildly increased (concentric). The left ventricular wall motion is normal. The left ventricular diastolic function is mildly abnormal (grade I). Moderate aortic valve stenosis. Mild AI Event monitor 06/15/22 Patient had a min HR of 45 bpm, max HR of 164 bpm, and avg HR of 63 bpm. Predominant underlying rhythm was Sinus Rhythm. First Degree AV Block was present. 2 Ventricular Tachycardia runs occurred, the run with the fastest interval lasting 15 beats with a max rate of 164 bpm (avg 147 bpm); the run with the fastest interval was also the longest. 17 Supraventricular Tachycardia runs occurred, the run with the fastest interval lasting 5 beats with a max rate of 146 bpm, the longest lasting 10.6 secs with an avg rate of 129 bpm. Isolated SVEs were rare (<1.0%), SVE Couplets were rare (<1.0%), and SVE Triplets were rare (<1.0%). Isolated VEs were rare (<1.0%, 5705), VE Couplets were rare (<1.0%, 285), and VE Triplets were rare (<1.0%, 12). Ventricular Bigeminy and Trigeminy were present. ASSESSMENT/PLAN: 77 year old year old male Coronary artery disease involving anvik coronary artery of anvik heart without angina pectoris (Primary) -Patient is doing well from a cardiovascular standpoint. Denies any new or changing cardiac concerns. -Continue GDMT with Toprol xl, Lisinopril, ASA 81mg and Atorvastatin -Discussed cardiac history and need for nuclear lexiscan stress test for preop clearance. Nuclear scan most appropriate given his history of prior CAD, A-fib and also mobility concerns. Unable to ambulate on a treadmill. Also requires use of a cane. - NM MYOCARD PERF IMG SPECT MULT STUDIES WITH PHARM INTERV; Future; Expected date: 03/10/2023 Preoperative cardiovascular examination -Will plan for nuclear lexiscan in prep for possible TKA. Will provide further recommendations pending testing. - EKG COMPLETE (TRACING AND INTERP); Future; Expected date: 03/17/2023 - NM MYOCARD PERF IMG SPECT MULT STUDIES WITH PHARM INTERV; Future; Expected date: 03/10/2023 HTN, goal below 130/80 - Low normal. Asymptomatic. Continue Toprol xl, Lisinopril, Imdur, and furosemide at current regimen. - NM MYOCARD PERF IMG SPECT MULT STUDIES WITH PHARM INTERV; Future; Expected date: 03/10/2023 PAF (paroxysmal atrial fibrillation) (HCC) -Regular rate rhythm on today's exam. Continue Toprol xl and Eliquis as per current regimen. - NM MYOCARD PERF IMG SPECT MULT STUDIES WITH PHARM INTERV; Future; Expected date: 03/10/2023 Anemia of chronic disease - CBC; Future; Expected date: 03/10/2023 Follow-up: Return in about 6 months (around 09/08/2023). | Check-out note: Nuclear stress test. Hopeto have done in March or Apr for preop for knee surgery! EKG can just be done the same day. Check in for lab today please. DISPOSITION: Follow up 6 months or if symptoms worsen/fail to improve. All questions were answered to the patients satisfaction. Patient advised to report to ED with any and all emergencies. The patient agrees to the above plan and will call with additional questions or concerns. CHRISTOPHE Dukes Cardiology, [facility] [address] [facility] [place] [address] I spent a total of 41 minutes on the date of service in preparation, delivery, and documentation ofthe care provided to Walter Don excluding any time spent in the performance of separately billed services. This chart was completed in part utilizing [employer] Speech Voice Recognition Software. Grammatical errors, random word insertions, pronoun errors, and incomplete sentences are an occasional consequence of this system due to software limitations, ambient noise, and hardware issues. Any formal questions or concerns about the content, text, or information contained within the body of this dictation should be directly addressed to the provider for clarification. documented in this encounter Nursing Notes * Betty Escamilla LPN - 03/10/2023 10:35 AM EST Examination Room: 6 Name: Walter Don Date of : 1945 Reason for Visit: Follow up Problems/Concerns: Would like pre op for L TKA, no date yet Interim Hosp(s): denies Chest Pain/SOB: denies MyChart Discussed: ALREADY ACTIVE Patient was instructed to not get up on the exam table until directed and assisted by their provider; patient is to remain seated in the chair/ wheelchair/ exam table for fall prevention and safety reasons. Patient is aware to have assistance to step down off exam table with personnel. documented in this encounter Plan of Treatment Upcoming Encounters Date Type Department Care Team (Late st Contact Info) Description 03/16/2023 10:00 AM EST Telemedicine Interventional Pain Center, [facility] [address] [facility] [place] [address] CousinPb tafoya, DO [address] [facility] [place] [address] 03/30/2023 10:00 AM EST Imaging [facility] 2nd Floor Cardiology, [place] [address] [facility] [place] [address] Gw, Excess Time Radiology [address] [facility] [place] [address] 04/02/2023 10:20 AM EST Office Visit Podiatry [facility] [address] [facility] [place] [address] Bettye Herrmann DPM [address] [place] [address] 04/26/2023 11:30 AM EST Office Visit Orthopaedics [facility] [address] [facility] [place] [address] Zander Wilkins, [facility] [place] [address] 05/05/2023 11:30 AM EST Office Visit Gastroenterology, [facility] [address] [facility] [place] [address] Agnes Bowers CRNP [facility] [place] [address] 05/31/2023 11:40 AM EST Office Visit Podiatry [facility] [address] [facility] [place] [address] Bettye Herrmann DPM [address] [place] [address] 07/08/2023 10:00 AM EDT Imaging Radiology [facility] 1st Floor, [place] [address] [facility] [place] [address] 07/13/2023 11:00 AM EDT Office Visit Radiation Oncology, [place] [address] [address] [place] [address] Shawna Johnson MD [facility] [place] [address] 07/19/2023 11:40 AM EDT Office Visit Family Practice [facility] [address] [facility] [place] [address] Johnnie Newby MD [address] [facility] [place] [address] 09/16/2023 9:00 AM EDT Office Visit Cardiology, [facility] [address] [place] [address] Deisy Aguirre CRNP [address] [place] [address] Scheduled Orders Name Type Priority Associated Diagnoses Orde r Schedule EKG COMPLETE (TRACING AND INTERP) EKG Routine Preoperative cardiovascular examination Expected: 03/17/2023, Expires: 04/09/2024 NM MYOCARD PERF IMG SPECT MULT STUDIES WITH PHARM INTERV Cardiology Routine Coronary artery disease involving anvik coronary artery of anvik heart without angina pectoris Preoperative cardiovascular examination HTN, goal below 130/80 PAF (paroxysmal atrial fibrillation) (HCC) Expected: 03/10/2023 (Approximate), Expires: 04/09/2024 Scheduled Procedures Name Priority Associated Diagnoses Date/Ti [...] exists DISCUSS TOBACCO CESSATION (REFER TO SMARTSET #1772) 05/01/2023 05/01/2022, 02/13/2022 CKD PHOS USE SMARTSET 33202 06/05/202305/20, 06/03/2021, 06/04/2020, Additional history exists GFR [...] Additional history exists CKD HGB USE SMARTSET 78157 03/10/202403/10, 01/18/2023, 01/15/2023, Additional history exists COLONOSCOPY-EVERY [...] this encounter Medical Devices Implanted Type Area Durability Engineer Device Identifier Shelf Expiration Date Model / Serial / Lot Lens Intraoc 24.0 - [id number] - [id number] Implanted:Qty: 1 on 06/01/2017 by Nikhil Bolton MD at [facility] Left: Eye [employer] 07/17/2021 [id number] / [id number] / [id number] Lens Intraoc 24.0 - [id number] - [id number] Implanted:Qty: 1 on 06/08/2017 by Nikhil Bolton MD at OR [facility] Right: Eye [employer] 07/17/2021 [id number] / [id number] / [id number] documented as of this encounter Results * (ABNORMAL) CBC (03/10/2023 11:38 AM EST) WBC 6.41 4.00 - 10.80 K/uL 03/10/2023 11:46 AM EST [facility] 57-10 RBC 3.28 4.50 - 5.25 M/uL 03/10/2023 11:46 AM EST [facility] 57-10 HGB 8.6(L) 14.0 - 16.8 g/dL 03/10/2023 11:46 AM EST [facility] [place] 57-10 HCT 28.8(L) 40.0 - 48.4 % 03/10/2023 11:46 AM EST [facility] [place] 57-10 MCV 87.8 82.0 - 99.5 fL 03/10/2023 11:46 AM EST [facility] [place] 57-10 MCH 26.2 27.0 - 34.0 pg 03/10/2023 11:46 AM EST [facility] [place] 57-10 MCHC 29.9 32.0 - 36.0 g/dL 03/10/2023 11:46 AM EST [facility] [place] 57-10 RDW 18.6 11.5 - 15.5 % 03/10/2023 11:46 AM EST [facility] [place] 57-10 PLT 248 140 - 400 K/uL 03/10/2023 11:46 AM EST [facility] [place] 57-10 MPV 9.2 6.6 - 11.1 fL 03/10/2023 11:46 AM EST [facility] [place] 57-10 Blood Venous blood specimen / Unknown Venipuncture / Unknown 03/10/2023 11:38 AM EST 03/10/2023 11:38 AM EST Deisy Aguirre CHRISTOPHE LAB BLOOD ORDER [facility] [place] 57-10 [address] [place] [address] documented in this encounter Visit Diagnoses Diagnosis Coronary artery disease involving anvik coronary artery of anvik heart without angina pectoris- Primary Preoperative cardiovascular examination Pre-operative cardiovascular examination HTN, goal below 130/80 Unspecified essential hypertension PAF (paroxysmal atrial fibrillation) (HCC) Atrial fibrillation Anemia of chronic disease Anemia of other chronic disease documented in this encounter Advance Directives Documents on File Type Date Recorded 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 Care Teams Rehabilitation Services Aide Relationship Specialty Start Date End Date Johnnie Newby MD [address] [place] [address] PCP - General Family Medicine 09/13/20 documented as of this encounter"
--- OUTSIDE RECORDS SUMMARY | 2023-04-15 00:14 | External Medical Summary | Summary of Care ---
Author Name Unknown Organization [facility] Address [address] [place] [address] Phone [phone] Care Team Providers [employer] Sales Consultant Name Role Phone Johnnie Newby MD Primary Care Provider [phone] Reason for Visit * Reason Comments New Problem R foot * Evaluate & Treat - Unlimited Visits (Within 10 days (routine)) - Authorized Specialty Diagnoses / Procedures Referred By Treva judd Referred To Contact Podiatry Diagnoses Injury of right foot, initial encounter Zander Wilkins, [address] [place] [address] Referral ID Status Reason Start Date Expiration Date Visits Requested Visits Authorized [id number] Authorized Specialty Services Required 3 [phone] Encounter Details Date Type Department Care Team (Late st Contact Info) Description 04/02/2023 10:20 AM EST Office Visit Podiatry [facility] [address] [address] Bettye Herrmann, SAMM [address] [place], [place] [address] [address] Closed nondisplaced fracture of fifth metatarsal bone of right foot with routine healing, subsequent encounter* Allergies Active Allergy Reactions Criticality Noted Date [...] hemoglobin A1c goal of less than 7.0% (HCC) TEST ONCE DAILY 100 Strip 5 03/02/2018 [...] 24 Hour (Imdur)Indications:C oronary artery disease involving [place] coronary artery without angina pectoris TAKE ONE [...] 270 Capsule 0 07/08/2022 4 Active Tiotropium Custer Monohydrate 18 MCG Inhalation Capsule (Spiriva) INHALE ONE CAPSULE VIA HANDIHALER EVERY MORNING. DO NOT SWALLOW CAPSULE. 90 Capsule 3 06/26/2022 4 Active Fluticasone-Salmeter ol 230-21 MCG/ACT Inhalation Aerosol (Advair)Indications: COPD, group B, by GOLD 2017 classification ([facility]) INHALE TWO PUFFS BY MOUTH EVERY MORNING AND INHALE TWO PUFFS BY MOUTH AT BEDTIME, RINSE MOUTH AFTER USE 36 g 3 04/17/2022 4 Active Roflumilast 500 MCG Oral Tablet (Daliresp)Indication s:COPD, group D, by GOLD 2017 classification ([facility]) TAKE ONE TABLET BY MOUTH [...] (toPROL XL)Indications:SVT (supraventricular tachycardia),NSVT (nonsustained ventricular tachycardia) ([facility]) TAKE ONE TABLET BY MOUTH [...] *NEED UPDATED LABS* 90 Capsule 1 03/21/2023 Active Hospital, Clinic, or Other Facility Administered [...] Dyslipidemia 02/07/2019 Peripheral arterial disease 12/28/2018 Old [place] (myocardial infarction) 01/03/2018 YISSEL treated with BiPAP [...] tis 01/05/2014 Coronary artery disease invo lving [place] coronary artery of [place] heart without angina pectoris 11/27/2013 Tobacco abuse [...] mRNA, LNP-s, No Pre serve, 2-Dose Series ([employer] [place]) 02/25/2023,02/10/2022,07/13/2020,06/17 Pneumococcal Conjugate Vacc, 13 Valent (Prevnar) [...] as of this encounter Progress Notes * Bettye Herrmann DPM - 04/02/2023 10:20 AM EST Podiatry Established Note [facility] Name: Walter Don : 1945 Date: 04/02/2023 REASON FOR VISIT: right foot fracture follow up, DOI: 03/07/2023 SUBJECTIVE: This patient is a 77 year old male who presents today for follow up of a right foot fracture. He tripped over his on 03/07. He came to orthopaedic urgent care on 03/10. He saw Dr. Wilkins who diagnosed him with a 5th metatarsal fracture. He was provided a camwalker. He has been ambulating with this device since. He notes pain to the right lateral midfoot and reports bumping the boot into objects on a routine basis. He offers no other concerns today. He does have type 2 DM and I see him for routine foot care. Past Medical History: Diagnosis Date Anemia of [...] 8 weeks COPD (chronic obstructive pulmonary disease) (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) Depression with anxiety 06/05/2022 Diabetic peripheral neuropathy ([facility]) 01/15/2023 Diverticulosis of large intestine without hemorrhage 01/15/2023 Dyslipidemia 02/07/2019 HTN, goal below 130/80 03/06/2009 Modified per HTN protocol #16. HTN, goal to be determined Lung cancer ([facility]) Obesity, Class I, BMI 30.0-34.9 (see actual BMI) 06/04/2021 Obesity, Class II, BMI 35-39.9, isolated (see actual BMI) 12/02/2021 OTHER diabetes Overweight (BMI 25.0-29.9) 09/09/2022 Sleep apnea, obstructive Type 2 diabetes mellitus with hemoglobin A1c goal of less than 8.0% ([facility]) 10/23/2014 ICD-10 update of inactive term ALLERGIES: Review of patient's allergies indicates: Allergen Reactions Tylenol [Acetaminophen] headaches REVIEW OF SYSTEMS: N/A FOCUSED PODIATRIC EXAM: Vascular: Pedal pulses palpable including dorsalis pedis and posterior tibial artery at 2/4 right. Capillary refill time is within normal limits to all toes. Mild edema right foot and lower leg which appears more chronic in nature with some lower leg skin changes noted. Neurologic: Sensation (light touch) intact to the right foot. Musculoskeletal: Pain is reported with palpation of the right foot, lateral aspect of the 5th metatarsal base only. Dermatological: Skin temperature, texture, and turgor are within normal limits. No open lesions. There is no erythema or ecchymosis noted. DIAGNOSTIC STUDIES: X-ray, right foot, 04/02/2023 This includes three weight bearing x-rays AP MO and Lateral. No significant soft tissue findings. There is a minimally displaced fracture of the right fifth metatarsal bone seen on all three views. ASSESSMENT: ICD-10-CM 1. Closed nondisplaced fracture of fifth metatarsal bone of right foot with routine healing, subsequent encounter S92.354D PLAN: New right foot x-rays were obtained. I reviewed these as above. I recommended continuation of the camwalker for now. I discussed option of an DEWAYNE wrap which he declined. We will plan on a 3 week follow up for repeat x-rays. Bettye Herrmann DPM documented in this encounter Nursing Notes * Denise Parikh LPN - 04/02/2023 10:02 AM EST Pt presents for follow up R foot fx, DOI 03/07/2023, had x-ray 03/10/2023, given CAM boot and advised limited weight bearing. Reports feeling well documented in this encounter Plan of Treatment Upcoming Encounters Date Type Department Care Team (Late st Contact Info) Description 04/23/2023 11:00 AM EST Office Visit Podiatry [facility] [address] [facility] [place] [address] Bettye Herrmann DPM [address] [facility] [place] [address] 04/26/2023 11:30 AM EST Office Visit Orthopaedics [facility] [address] [facility] [place] [address] Zander Wilkins DO [address] [facility] [place] [address] 05/05/2023 11:30 AM EST Office Visit Gastroenterology, [facility] 132 [facility] [place] [address] Agnes Bowers CRNP [address] [place] [address] 05/31/2023 11:40 AM EST Office Visit Podiatry [facility] [address] [facility] [place] [address] Bettye Herrmann, DPM [address] [facility] [place] [address] 07/08/2023 10:00 AM EDT Imaging Radiology [address] [facility] [place] [address] 07/13/2023 11:00 AM EDT Office Visit Radiation Oncology, [place] [address] [address] [place] [address] Shawna Johnson MD Medical [place] [address] 07/19/2023 11:40 AM EDT Office Visit Family Practice [facility] [address] [facility] [place] [address] Johnnie Newby MD [address] [facility] [place] [address] 09/16/2023 9:00 AM EDT Office Visit Cardiology, [facility] 132 [facility] [place] [address] Deisy Aguirre CRNP [address] [place] [address] Pending Results Name Type Priority Associated Diagnoses Date /Time XR FOOT 3 OR MORE VIEWS Medical Imaging Routine Closed nondisplaced fracture of fifth metatarsal bone of right foot with routine healing, subsequent encounter 04/02/2023 10:30 AM EST Scheduled Procedures Name Priority Associated [...] exists DISCUSS TOBACCO CESSATION (REFER TO SMARTSET #3094) 05/01/2023 05/01/2022, 02/13/2022 CKD PHOS USE SMARTSET 38650 06/05/202305/20, 06/03/2021, 06/04/2020, Additional history exists GFR [...] Additional history exists CKD HGB USE SMARTSET 54474 03/10/202403/10, 01/18/2023, 01/15/2023, Additional history exists COLONOSCOPY-EVERY [...] this encounter Medical Devices Implanted Type Area State Wildlife Officer Device Identifier Shelf Expiration Date Model / Serial / Lot Lens Intraoc 24.0 - [id number] - [id number] Implanted:Qty: 1 on 06/01/2017 by Nikhil Bolton MD at OR [facility] Left: Eye BAUSCH & LOMB 07/17/2021 [id number] / [id number] / [id number] Lens Intraoc 24.0 - [id number] - [id number] Implanted:Qty: 1 on 06/08/2017 by Nikhil Bolton MD at OR [facility] Right: Eye BAUSCH & LOMB 07/17/2021 [id number] / [id number] / [id number] documented as of this encounter Visit Diagnoses Diagnosis Closed nondisplaced fracture of fifth metatarsal bone of right foot with routine healing, subsequent encounter- Primary documented in this encounter Advance Directives Documents on File Type Date Recorded Patient Supervisor Grower Expl 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 Care Teams [employer] Sales Consultant Relationship Specialty Start Date End Date Johnnie Newby MD [address] [place] [address] PCP - General Family Medicine 09/13/20 documented as of this encounter
--- OUTSIDE RECORDS SUMMARY | 2023-04-15 00:14 | External Medical Summary | Summary of Care ---
Author Name Unknown Organization [facility] Address [address] [place] [facility] [place] [address] Phone [phone] Care Team Providers Care Manager Culture Name Role Phone Johnnie Newby MD Primary Care Provider [phone] Reason for Visit * Reason Comments Back Pain Encounter Details Date Type Department Care Team (Late st Contact Info) Description 03/16/2023 10:00 AM [facility] Telemedicine Interventional Pain Center, [facility] [address] [facility] [place] [address] Pb Alexander, [address] [facility] [place] [address] 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 radiculopathy* Allergies Active Allergy Reactions Criticality Noted Date Comments Acetaminophen 05/06/2005 headaches documented as of this encounter (statuses as of 03/16/2023) Medications Medication Sig Dispensed Refills Start Date [...] HOSPITAL) TEST ONCE DAILY 100 Strip 5 03/02/2018 Active Ventolin HFA 108 (90 Base) MCG/ACT Inhalation Aerosol SolutionIndications: COPD, moderate ([facility]) Take [...] 24 Hour (Imdur)Indications:C oronary artery disease involving [place] coronary artery without angina pectoris TAKE ONE [...] 270 Capsule 0 07/08/2022 4 Active Tiotropium Kismet Monohydrate 18 MCG Inhalation Capsule (Spiriva) INHALE ONE CAPSULE VIA HANDIHALER EVERY MORNING. DO NOT SWALLOW CAPSULE. 90 Capsule 3 06/26/2022 4 Active Fluticasone-Salmeter ol 230-21 MCG/ACT Inhalation Aerosol (Advair)Indications: COPD, group B, by GOLD 2017 classification ([facility]) INHALE TWO PUFFS BY MOUTH EVERY MORNING AND INHALE TWO PUFFS BY MOUTH AT BEDTIME, RINSE MOUTH AFTER USE 36 g 3 04/17/2022 4 Active Roflumilast 500 MCG Oral Tablet (Daliresp)Indication s:COPD, group D, by GOLD 2017 classification ([facility] [...] as of this encounter (statuses as of 03/16/2023) Active Problems Problem Noted Date Diagnosed Date [...] Dyslipidemia 02/07/2019 Peripheral arterial disease 12/28/2018 Old [place] (myocardial infarction) 01/03/2018 YISSEL treated with BiPAP [...] tis 01/05/2014 Coronary artery disease invo lving [place] coronary artery of [place] heart without angina pectoris 11/27/2013 Tobacco abuse 11/27/2013 HTN, goal below 130/80 03/06/2009 Overview: Modified per HTN protocol #16. documented as of this encounter (statuses as of 03/16/2023) Resolved Problems Problem Noted Date Diagnosed Date [...] as of this encounter (statuses as of 03/16/2023) Immunizations Name Administration Dates Next Due COVID-19 mRNA, LNP-s, No Pre serve, 2-Dose Series ([employer] [place]) 02/25/2023,02/10/2022,07/13/2020,06/17 Pneumococcal Conjugate Vacc, 13 Valent (Prevnar) [...] as of this encounter Progress Notes * KylersinPb tafoya, DO - 03/16/2023 9:58 AM EST Name: Walter Don Date: 03/16/2023 HPI: Walter Don is a 77 year old male who presents for telephonic visit. After connecting to the patient via telephone, the patient was identified by name and date of . Patient was then informed that this was a telephone call only visit. The patient agreed to participate. Visit Disposition: Routine follow-up Total call duration was 6 minutes. 75-80% improvement following BL LF RFA L4L5, L5S1 about 6 weeks ago. Able to be more active, but unfortunately broke his foot recently. History: Past Medical History: Diagnosis Date Anemia of [...] (HCC) 10/23/2014 ICD-10 update of inactive term Past Surgical History: Procedure Laterality Date BRONCHOSCOPY, DIAGNOSTIC N/A 06/12/2020 BRONCHOSCOPY DIAGNOSTIC WITH OR WITHOUT WASHING performed by Warren Patel MD at ENDOSCOPY [facility] COLONOSCOPY THRU STOMA, W/BIOPSY 05/28/2010 andenomatous tissue--repeat in 3 months COLONOSCOPY THRU STOMA, W/BIOPSY 09/18/2010 adenomatous-repeat colonoscopy in 3-6 months COLONOSCOPY THRU STOMA, W/BIOPSY 04/09/2011 polyps x3 , path shows adenomatous tissue repeat in 1 years COLONOSCOPY, DIAGNOSTIC (RECTUM) 05/20/2016 adenomatous polyps, poor prep, diverticulosis, repeat 3 yrs/[facility] COLONOSCOPY, DIAGNOSTIC (RECTUM) 06/06/2019 hemorrhoids/diverticulosis sigmoid and descending colon/small AVM/biopsies show adenomatous polyps/recall 6-9 months/COLONOSCOPY FLEXIBLE PROXIMAL DIAGNOSTIC performed by Clemencia Marinelli MD at[facility]OSCOPY [facility] COLONOSCOPY, DIAGNOSTIC (RECTUM) 03/05/2022 benign adenomatous polyp, repeat 1 yr / COLONOSCOPY FLEXIBLE PROXIMAL DIAGNOSTIC performed by Clemencia Marinelli MD at ENDOSCOPY [facility] COLONOSCOPY, DIAGNOSTIC (RECTUM) 01/14/2023 hemorrhoids/diverticulosis/biopsies show hyperplastic polyps/recall 2 years/COLONOSCOPY FLEXIBLE PROXIMAL DIAGNOSTIC performed by Destiny Mojica DO at ENDOSCOPY [facility] DESTROY LUMBAR SACRAL NERVE IMAGING ADD'L 01/27/2023 DESTROY LUMBAR SACRAL NERVE IMAGING ADD'L performed by Pb Alexander DO at OR [facility] DESTROY LUMBAR SACRAL NERVE IMAGING SINGLE 01/27/2023 DESTROY LUMBAR SACRAL NERVE IMAGING SINGLE performed by Pb Alexander DO at [facility] EGD, FLEXIBLE, DIAGNOSTIC 01/14/2023 gsatric polyp/ESOPHAGOGASTRODUODENOSCOPY (EGD), FLEXIBLE, TRANSORAL, DIAGNOSTIC performed by Phong Mojica DO at ENDOSCOPY [facility] L-/S-SPINE PARAVERTEBRAL FACET INJ,1 LEVEL 11/25/2022 L-/S-SPINE PARAVERTEBRAL FACET INJ, 1 LEVEL performed by Pb Alexander DO at [facility] L-/S-SPINE PARAVERTEBRAL FACET INJ,1 LEVEL 01/06/2023 L-/S-SPINE PARAVERTEBRAL FACET INJ, 1 LEVEL performed by Pb Alexander DO at OR [facility] L-/S-SPINE PARAVERTEBRL FACET INJ,2 LEVELS 11/25/2022 L-/S-SPINE PARAVERTEBRAL FACET INJ, 2 LEVELS performed by Pb Alexander DO at OR [facility] L-/S-SPINE PARAVERTEBRL FACET INJ,2 LEVELS 01/06/2023 L-/S-SPINE PARAVERTEBRAL FACET INJ, 2 LEVELS performed by Pb Alexander DO at [facility] MISCELLANEOUS ORDER ([facility] ONLY) 1998 henria repair OTHER (INFORMATION) pilonidal cyst removal OTHER (INFORMATION) repair of bilateral shoulder for bone spur and repair of torn muscles right shoulder REMOVE CATARACT, INSERT LENS PROSTH Left 06/01/2017 left EXTRACAPSULAR CATARACT REMOVAL WITH INTRAOCULAR LENS performed by Nikhil Bolton MD at OR [facility] REMOVE CATARACT, INSERT LENS PROSTH Right 06/08/2017 right EXTRACAPSULAR CATARACT REMOVAL WITH INTRAOCULAR LENS performed by Nikhil Bolton MD at OR [facility] Current Outpatient Medications Medication Sig Dispense Refill [...] MOUTH EVERY MORNING 270 Capsule 0 Tiotropium Kismet Monohydrate 18 MCG Inhalation Capsule (Spiriva) INHALE [...] Pyle MD 2.5 mg at 07/26/18 1521 Review of patient's allergies indicates: Allergen Reactions Tylenol [Acetaminophen] headaches Social History Tobacco Use Smoking Status Every Day Packs/day: 1.50 Years: 69.00 Additional pack years: 0.00 Total pack years: 103.50 Types: Cigarettes Smokeless Tobacco Never Tobacco Comments started age 7 Social History Substance and Sexual Activity Alcohol Use No ASSESSMENT: Lumbar spondylosis without myelopathy/radiculopathy RECOMMENDATION: He can contact the office if symptoms recur. Pb Alexander DO 03/16/2023 9:58 AM documented in this encounter Plan of Treatment Upcoming Encounters Date Type Department Care Team (Late st Contact Info) Description 03/30/2023 10:00 AM EST Imaging [facility] 2nd Floor Cardiology, [place] [address] [facility] [place] [address] Gw, Excess Time Radiology [address] [place] [address] 04/02/2023 10:20 AM EST Office Visit Podiatry [address] [place] [address] Bettye Herrmann DPM [address] [place] [address] 04/26/2023 11:30 AM EST Office Visit Orthopaedics [facility] [address] [place] [address] Zander Wilkins, [address] [place] [address] 05/05/2023 11:30 AM EST Office Visit Gastroenterology, [facility] 132 [facility] [place] [address] Agnes Bowers CRNP [address] [place] [address] 05/31/2023 11:40 AM EST Office Visit Podiatry [facility] 132 [facility] [place] [address] Betyte Herr[facility] DPM [facility] [address] 07/08/2023 10:00 AM EDT Imaging Radiology [facility] 1st Floor, [place] [address] [facility] [place] [address] 07/13/2023 11:00 AM EDT Office Visit Radiation Oncology, [address] [place] [address] Shawna Johnson MD Medical [place] [address] 07/19/2023 11:40 AM EDT Office Visit Family Practice [facility] [place] [address] Johnnie Newby MD [address] [place] [address] 09/16/2023 9:00 AM EDT Office Visit Cardiology, [facility] [address] [place] [address] Deisy Aguirre CRNP [address] [place] [address] Scheduled Procedures Name Priority Associated Diagnoses Date/Ti [...] 05/01/2023 05/01/2022, 02/13/2022 CKD PHOS USE SMARTSET 18435 06/05/202305/20, 06/03/2021, 06/04/2020, Additional history exists GFR [...] Additional history exists CKD HGB USE SMARTSET 59375 03/10/202403/10, 01/18/2023, 01/15/2023, Additional history exists COLONOSCOPY-EVERY [...] this encounter Medical Devices Implanted Type Area Tool And Die Manager Device Identifier Shelf Expiration Date Model / Serial / Lot Lens Intraoc 24.0 - [id number] - [id number] Implanted:Qty: 1 on 06/01/2017 by Nikhil Bolton MD at OR [facility] Left: Eye BAUSCH [employer] LOMB 07/17/2021 [id number] / [id number] / [id number] Lens Intraoc 24.0 - [id number] - [id number] Implanted:Qty: 1 on 06/08/2017 by Nikhil Bolton MD at OR [facility] Right: Eye BAUSCH & LOMB 07/17/2021 [id number] / [id number] / [id number] documented as of this encounter Visit Diagnoses Diagnosis 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 radiculopathy- Primary Lumbosacral spondylosis without myelopathy documented in this encounter Advance Directives Documents on File Type Date Recorded Patient Consulting Project Director Expl anation Advance Directives and Yu Watkins [...] and were consensually agreed upon. Care Teams Manager Culture Relationship Specialty Start Date End Date Johnnie Newby MD [address] [facility] [place] [address] PCP - General Family Medicine 09/13/20 documented as of this encounter
--- OUTSIDE RECORDS SUMMARY | 2023-04-15 00:14 | External Medical Summary | Summary of Care ---
Author Name Unknown Organization [facility] Address [address] [place] [address] Phone [phone] Care Team Providers Care Customer Account Executive Name Role Phone Johnnie Newby MD Primary Care Provider [phone] Encounter Details Date Type Department Care Team (Late st Contact Info) Description 03/24/2023 Patient Reported Data Patient Survey Ortho [facility] Allergies Active Allergy Reactions Criticality Noted Date Comments Acetaminophen 05/06/2005 headaches documented as of this encounter (statuses as of 03/24/2023) Medications Medication Sig Dispensed Refills Start Date [...] 24 Hour (Imdur)Indications:C oronary artery disease involving [place] coronary artery without angina pectoris TAKE ONE [...] 270 Capsule 0 07/08/2022 4 Active Tiotropium [place] Monohydrate 18 MCG Inhalation Capsule (Spiriva) INHALE ONE CAPSULE VIA HANDIHALER EVERY MORNING. DO NOT SWALLOW CAPSULE. 90 Capsule 3 06/26/2022 4 Active Fluticasone-Salmeter ol 230-21 MCG/ACT Inhalation Aerosol (Advair)Indications: COPD, group B, by GOLD 2017 classification ([facility]) INHALE TWO PUFFS BY MOUTH EVERY MORNING AND INHALE TWO PUFFS BY MOUTH AT BEDTIME, RINSE MOUTH AFTER USE 36 g 3 04/17/2022 4 Active Roflumilast 500 MCG Oral Tablet (Daliresp)Indication s:COPD, group D, by GOLD 2017 classification ([facility]) TAKE ONE TABLET BY MOUTH EVERY MORNING [...] (toPROL XL)Indications:SVT (supraventricular tachycardia),NSVT (nonsustained ventricular tachycardia) ([facility]) TAKE ONE TABLET BY MOUTH EVERY DAY [...] as of this encounter (statuses as of 03/24/2023) Active Problems Problem Noted Date Diagnosed Date [...] Dyslipidemia 02/07/2019 Peripheral arterial disease 12/28/2018 Old [place] (myocardial infarction) 01/03/2018 YISSEL treated with BiPAP [...] tis 01/05/2014 Coronary artery disease invo lving [place] coronary artery of [place] heart without angina pectoris 11/27/2013 Tobacco abuse 11/27/2013 HTN, goal below 130/80 03/06/2009 Overview: Modified per HTN protocol #16. documented as of this encounter (statuses as of 03/24/2023) Resolved Problems Problem Noted Date Diagnosed Date [...] as of this encounter (statuses as of 03/24/2023) Immunizations Name Administration Dates Next Due COVID-19 [...] Care Team (Late st Contact Info) Description 04/01/2023 10:00 AM EST Imaging [facility] 2nd Floor Cardiology, [place] [address] [facility] [place] [address] Gw, Excess Time Radiology [address] [facility] [place] [address] 04/02/2023 10:20 AM EST Office Visit Podiatry [facility] [address] [facility] [place] [address] Bettye Herrmann DPM [address] [facility] [place] [address] 04/26/2023 11:30 AM EST Office Visit Orthopaedics [facility] [address] [facility] [place] [address] Zander Wilkins, [address] [place] [address] 05/05/2023 11:30 AM EST Office Visit Gastroenterology, [facility] [address] [facility] [place] [address] Agnes Bowers CRNP [address] [place] [address] 05/31/2023 11:40 AM EST Office Visit Podiatry [facility] [address] [facility] [place] [address] Bettye Herrmann, DPM 400 [facility] [place] [address] 07/08/2023 10:00 AM EDT Imaging [facility] [address] [facility] [place] [address] 07/13/2023 11:00 AM EDT Office Visit Radiation Oncology, [address] [place] [address] Shawna Johnson MD [address] [place] [address] [place] [address] 07/19/2023 11:40 AM EDT Office Visit Family Practice [facility] [address] [facility] [place] [address] Johnnie Newby MD 132 [facility] [place] [address] 09/16/2023 9:00 AM EDT Office Visit Cardiology, [facility] [address] [facility] [place] [address] Deisy Aguirre CRNP 132 [facility] [place] [address] Scheduled Procedures Name Priority Associated Diagnoses Date/Ti [...] exists DISCUSS TOBACCO CESSATION (REFER TO SMARTSET #2591) 05/01/2023 05/01/2022, 02/13/2022 CKD PHOS USE SMARTSET 42006 06/05/202305/20, 06/03/2021, 06/04/2020, Additional history exists GFR [...] Additional history exists CKD HGB USE SMARTSET 58527 03/10/202403/10, 01/18/2023, 01/15/2023, Additional history exists COLONOSCOPY-EVERY [...] this encounter Medical Devices Implanted Type Area Syrup Maker Cook Device Identifier Shelf Expiration Date Model / Serial / Lot Lens Intraoc 24.0 - [id number] - [id number] Implanted:Qty: 1 on 06/01/2017 by Nikhil Bolton MD at OR [facility] Left: Eye BAUSCH & LOMB 07/17/2021 [id number] / [id number] / [id number] Lens Intraoc 24.0 - [id number] - [id number] Implanted:Qty: 1 on 06/08/2017 by Nikhil Bolton MD at OR [facility] Right: Eye BAUSCH & LOMB 07/17/2021 [id number] / [id number] / [id number] documented as of this encounter Advance Directives Documents on File Type Date Recorded Patient Modeling Agency Manager Expl 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 Care Teams Customer Account Executive Relationship Specialty Start Date End Date Johnnie Newby MD [address] [place] [address] PCP - General Family Medicine 09/13/20 documented as of this encounter
--- OUTSIDE RECORDS SUMMARY | 2023-04-15 00:14 | External Medical Summary | Summary of Care ---
Author Name Unknown Organization [facility] Address [address] [place] [address] Phone [phone] Care Team Providers Care Rn Neurosurgical Name Role Phone Johnnie Newby MD Primary Care Provider [phone] Encounter Details Date Type Department Care Team (Late st Contact Info) Description 04/01/2023 Orders Only Unspecified Department Deisy Aguirre CRNP [address] [place] [address] Allergies Active Allergy Reactions Criticality Noted Date Comments Acetaminophen 05/06/2005 headaches documented as of this encounter (statuses as of 04/01/2023) Medications Medication Sig Dispensed Refills Start Date [...] 24 Hour (Imdur)Indications:C oronary artery disease involving [place] coronary artery without angina pectoris TAKE ONE [...] 270 Capsule 0 07/08/2022 4 Active Tiotropium [place] Monohydrate 18 MCG Inhalation Capsule (Spiriva) INHALE [...] as of this encounter (statuses as of 04/01/2023) Active Problems Problem Noted Date Diagnosed Date [...] Dyslipidemia 02/07/2019 Peripheral arterial disease 12/28/2018 Old [place] (myocardial infarction) 01/03/2018 YISSEL treated with BiPAP [...] tis 01/05/2014 Coronary artery disease invo lving [place] coronary artery of [place] heart without angina pectoris 11/27/2013 Tobacco abuse 11/27/2013 HTN, goal below 130/80 03/06/2009 Overview: Modified per HTN protocol #16. documented as of this encounter (statuses as of 04/01/2023) Resolved Problems Problem Noted Date Diagnosed Date [...] as of this encounter (statuses as of 04/01/2023) Immunizations Name Administration Dates Next Due COVID-19 mRNA, LNP-s, No Pre serve, 2-Dose Series (Urbantech) 02/25/2023,02/10/2022,07/13/2020,06/17 Pneumococcal Conjugate Vacc, 13 Valent (Prevnar) [...] 04/02/2023 10:20 AM EST Office Visit Podiatry [facility] 132 [facility] [place] [address] Bettye Herrmann, SAMM [address] [place] [address] 04/26/2023 11:30 AM EST Office Visit Orthopaedics [facility] [address] [facility] [place] [address] Zander Wilkins DO 132 [facility] [place] [address] 05/05/2023 11:30 AM EST Office Visit Gastroenterology, [facility] [address] [facility] [place] [address] Agnes Bowers CRNP 132 [facility] [place] [address] 05/31/2023 11:40 AM EST Office Visit Podiatry [facility] [address] [facility] [place] [address] Bettye Herrmann, SAMM 400 [facility] [place] [address] 07/08/2023 10:00 AM EDT Imaging Radiology [facility] [facility] 132 [facility] [place] [address] 07/13/2023 11:00 AM EDT Office Visit Radiation Oncology, [place] [address] [facility] [place] [address] Shawna Johnson MD [facility] [place] [address] 07/19/2023 11:40 AM EDT Office Visit Family Practice [facility] [address] [facility] [place] [address] Johnnie Newby MD 132 [facility] [place] [address] 09/16/2023 9:00 AM EDT Office Visit Cardiology, [facility] [address] [facility] [place] [address] Deisy Aguirre CRNP 132 [facility] [place] [address] Scheduled Procedures Name Priority Associated Diagnoses Date/Ti [...] exists DISCUSS TOBACCO CESSATION (REFER TO SMARTSET #0672) 05/01/2023 05/01/2022, 02/13/2022 CKD PHOS USE SMARTSET 92272 06/05/202305/20, 06/03/2021, 06/04/2020, Additional history exists GFR [...] Additional history exists CKD HGB USE SMARTSET 89822 03/10/202403/10, 01/18/2023, 01/15/2023, Additional history exists COLONOSCOPY-EVERY [...] this encounter Medical Devices Implanted Type Area Biomass Technician Device Identifier Shelf Expiration Date Model / Serial / Lot Lens Intraoc 24.0 - [id number] - [id number] Implanted:Qty: 1 on 06/01/2017 by Nikhil Bolton MD at OR [facility] Left: Eye BAUSCH [employer] LOMB 07/17/2021 [id number] / [id number] / [id number] Lens Intraoc 24.0 - [id number] - [id number] Implanted:Qty: 1 on 06/08/2017 by Nikhil Bolton MD at OR [facility] Right: Eye BAUSCH & LOMB 07/17/2021 [id number] / [id number] / [id number] documented as of this encounter Procedures Procedure Name Priority Date/Time Associated Diagnosis Comments NM MYOCARDIAL PERFUSION IMAGING SPECT MULTIPLE STUDIES WITH PHARMACOLOGIC INTERVENTION Routine 04/01/2023 10:15 AM EST documented in this encounter Results * NM MYOCARDIAL PERFUSION IMAGING SPECT MULTIPLE STUDIES WITH PHARMACOLOGIC INTERVENTION (04/01/2023 10:15 AM EST) 04/01/2023 10:1 5 AM EST Deisy SAEED [facility]UC[facility]AR MED [facility] documented in this encounter Advance Directives Documents on File Type Date Recorded Patient Aging Department Supervisor Expl 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 Care Teams Rn Neurosurgical Relationship Specialty Start Date End Date Johnnie Newby MD [address] [place] [address] PCP - General Family Medicine 09/13/20 documented as of this encounter
--- OUTSIDE RECORDS SUMMARY | 2023-04-15 00:14 | External Medical Summary ---
Author Name Unknown Address Unknown Organization K0G:[facility] [address] - [address] [place] [address] Laboratory Report Ordering Provider Test Date Status JESUS MONTOYA 04/07/2023 15:05:22 Final Observation Date Value Abnormality Reference (Units ) Status WBC, Total 04/07/2023 15:05:22 6.42 4.00-10.8 0 (K/uL) Final RBC 04/07/2023 15:05:22 3.65 4.50-5.25 (M/uL) Final Hemoglobin 04/07/2023 15:05:22 9.5 Below low normal 14 .0-16.8 (g/dL) Final HCT 04/07/2023 15:05:22 32.4 Below low normal 40. 0-48.4 (%) Final MCV 04/07/2023 15:05:22 88.8 82.0-99.5 (fL) Final MCH 04/07/2023 15:05:22 26.0 27.0-34.0 (pg) Final MCHC 04/07/2023 15:05:22 29.3 32.0-36.0 (g/dL) Final RDW 04/07/2023 15:05:22 18.3 11.5-15.5 (%) Final Platelets 04/07/2023 15:05:22 232 140-400 (K /uL) Final MPV 04/07/2023 15:05:22 9.7 6.6-11.1 ( fL) Final Performing Location [facility] [address] - [address] [place] [address]
--- OUTSIDE RECORDS SUMMARY | 2023-04-15 00:14 | External Medical Summary | Summary of Care ---
Author Name Unknown Organization [facility] Address [address] [place] [address] Phone [phone] Care Team Providers Care Avionics Technician Name Role Phone Johnnie Newby MD Primary Care Provider [phone] Reason for Visit * Reason Comments Outpatient Testing Encounter Details Date Type Department Care Team (Late st Contact Info) Description 03/10/2023 11:30 AM EST Laboratory Laboratory, [facility] [address] [place] [address] [facility] 132 [place] [address] Anemia of chronic disease Allergies Active Allergy [...] A1c goal of less than 7.0% ([facility]) TEST ONCE DAILY 100 Strip 5 03/02/2018 [...] 24 Hour (Imdur)Indications:C oronary artery disease involving [place] coronary artery without angina pectoris TAKE ONE [...] 270 Capsule 0 07/08/2022 4 Active Tiotropium [place] Monohydrate 18 MCG Inhalation Capsule (Spiriva) INHALE ONE CAPSULE VIA HANDIHALER EVERY MORNING. DO NOT SWALLOW CAPSULE. 90 Capsule 3 06/26/2022 4 Active Fluticasone-Salmeter ol 230-21 MCG/ACT Inhalation Aerosol (Advair)Indications: COPD, group B, by GOLD 2017 classification (HCC) INHALE TWO PUFFS BY MOUTH EVERY MORNING AND INHALE TWO PUFFS BY MOUTH AT BEDTIME, RINSE MOUTH AFTER USE 36 g 3 04/17/2022 4 Active Roflumilast 500 MCG Oral Tablet (Daliresp)Indication s:COPD, group D, by GOLD 2017 classification ([facility]) TAKE ONE TABLET BY MOUTH EVERY MORNING [...] XL)Indications:SVT (supraventricular tachycardia),NSVT (nonsustained ventricular tachycardia) ([facility]) TAKE ONE TABLET BY MOUTH EVERY DAY [...] Active Problems Problem Noted Date Diagnosed Date Diabetic peripheral neuropathy 01/15/2023 Diverticulosis of large [...] Dyslipidemia 02/07/2019 Peripheral arterial disease 12/28/2018 Old [place] (myocardial infarction) 01/03/2018 YISSEL treated with BiPAP [...] tis 01/05/2014 Coronary artery disease invo lving [place] coronary artery of [place] heart without angina pectoris 11/27/2013 Tobacco abuse [...] mRNA, LNP-s, No Pre serve, 2-Dose Series (Tok3n) 02/25/2023,02/10/2022,07/13/2020,06/17 Pneumococcal Conjugate Vacc, 13 Valent (Prevnar) [...] 03/10/2023 11:45 PM EST Office Visit Orthopaedics [facility] [address] [place] [address] Zander Wilkins, DO [address] [place] [address] Injury of right foot, initial encounter* 03/16/2023 10:00 AM EST Telemedicine Inter[facility], [facility] [address] [place] [address] Pb Alexander, DO [address] [place] [address] 04/26/2023 11:30 AM EST Office Visit Orthopaedics [facility] [address] [place] [address] Zander Wilkins, DO [address] [place] [address] 05/05/2023 11:30 AM EST Office Visit Gastroenterology, [facility] 132 [facility] [place] [address] Agnes Bowers CRNP [address] [place] [address] 05/31/2023 11:40 AM EST Office Visit Podiatry [facility] [address] [facility] [place] [address] Bettye Herrmann, DPM 400 [facility] [place] [address] 07/08/2023 10:00 AM EDT Imaging Radiology [address] [facility] [place] [address] 07/13/2023 11:00 AM EDT Office Visit Radiation Oncology, [address] [place] [address] Shawna Johnson MD [address] [place] [address] [place] [address] 07/19/2023 11:40 AM EDT Office Visit Family Practice [facility] [address] [facility] [place] [address] Johnnie Newby MD 132 [facility] [place] [address] 09/16/2023 9:00 AM EDT Office Visit Cardiology, [facility] 132 [facility] [place] [address] Deisy Aguirre CRNP [address] [place] [address] Scheduled Procedures Name Priority Associated Diagnoses Date/Ti me COLONOSCOPY FLEXIBLE PROXIMA L DIAGNOSTIC Recall History of colonic polyps Health Maintenance Due Date Last Done Comments Hepatitis B (1 of 3 - Risk 3-dose series) 2003 Depression Screening 05/31/2020 05/31/2019 Diabetic Eye Exam 04/09/2023 04/09/2022, , 03/30/2020, Additional history exists COVID-19 Vaccine ( - season) 2023 02/25/2023, 02/10/2022, 07/13/2020, Additional history exists DISCUSS TOBACCO CESSATION (REFER TO SMARTSET #6637) 05/01/2023 05/01/2022, 02/13/2022 CKD PHOS USE SMARTSET 69364 06/05/202305/20, 06/03/2021, 06/04/2020, Additional history exists GFR [...] Additional history exists CKD HGB USE SMARTSET 46357 03/10/202403/10, 01/18/2023, 01/15/2023, Additional history exists COLONOSCOPY-EVERY [...] this encounter Medical Devices Implanted Type Area Optical Brightener Maker Helper Device Identifier Shelf Expiration Date Model / Serial / Lot Lens Intraoc 24.0 - [id number] - [id number] Implanted:Qty: 1 on 06/01/2017 by Nikhil Bolton MD at OR [facility] Left: Eye BAUSCH & LOMB 07/17/2021 [id number] / [id number] / [id number] Lens Intraoc 24.0 - [id number] - [id number] Implanted:Qty: 1 on 06/08/2017 by Nikhil Bolton MD at OR [facility] Right: Eye BAUSCH & LOMB 07/17/2021 [id number] / [id number] / [id number] documented as of this encounter Procedures Procedure Name Priority Date/Time Associated Diagnosis Comments CBC Routine 03/10/2023 11:38 AM EST Anemia of chronic disease documented in this encounter Results * (ABNORMAL) CBC (03/10/2023 11:38 AM EST) WBC 6.41 4.00 - 10.80 K/uL 03/10/2023 11:46 AM EST [facility] RBC 3.28 4.50 - 5.25 M/uL 03/10/2023 11:46 AM EST [facility] HGB 8.6(L) 14.0 - 16.8 g/dL [...] K/uL 03/10/2023 11:46 AM EST [facility] MPV 9.2 6.6 - 11.1 fL 03/10/2023 11:46 AM EST [facility]10 Blood Venous blood specimen / Unknown Venipuncture / Unknown 03/10/2023 11:38 AM EST 03/10/2023 11:38 AM EST Deisy SAEED LAB BLOOD ORDER [facility] [place] [address] documented in this encounter Visit Diagnoses Diagnosis Anemia of chronic disease Anemia of other chronic disease Injury of right foot, initial encounter- Primary documented in this encounter Advance Directives Documents on File Type Date Recorded Patient Consulting Sme Expl 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 Care Teams Avionics Technician Relationship Specialty Start Date End Date Johnnie Newby MD [address] [place] [address] PCP - General Family Medicine 09/13/20 documented as of this encounter
--- OUTSIDE RECORDS SUMMARY | 2023-04-15 00:14 | External Medical Summary | Summary of Care ---
Author Name Unknown Organization [facility] Address [address] [place] [address] Phone [phone] Care Team Providers Care Machine Joint Cutter Name Role Phone John Newby MD Primary Care Provider [phone] Reason for Visit * Reason Comments Medication Refill Encounter Details Date Type Department Care Team (Late st Contact Info) Description 03/21/2023 Refill Family Practice [facility] [address] [place] [address] John Newby MD [address] [facility] [address] Gastroesophageal reflux disease without esophagitis Allergies Active Allergy Reactions Criticality Noted Date Comments Acetaminophen 05/06/2005 headaches documented as of this encounter (statuses as of 03/21/2023) Medications Medication Sig Dispensed Refills Start Date End Date Status DAILY MULTIVITAMIN PO TABS with lycopene 0 Active BUSPAR 15 MG PO TABS Take by mouth. Uses as needed 0 Active clonazePAM (KLONOPIN) 0.5 MG Tablet Uses as needed 0 06/17/2016 Active ONETOUCH ULTRA BLUE STRPIndications:Typ e 2 diabetes mellitus with hemoglobin A1c goal of less than 7.0% ([facility]) TEST ONCE DAILY 100 Strip 5 03/02/2018 Active Ventolin HFA 108 (90 Base) MCG/ACT Inhalation Aerosol SolutionIndications :COPD, moderate (HCC) Take 2 Puffs by mouth [...] 24 Hour (Imdur)Indications: Coronary artery disease involving [place] coronary artery without angina pectoris TAKE ONE TABLET BY MOUTH EVERY MORNING 90 Tablet 3 09/18/2022 4 Active Lisinopril 20 MG Oral Tablet (Prinivil)Indicatio [...] 270 Capsule 0 07/08/2022 4 Active Tiotropium [place] Monohydrate 18 MCG Inhalation Capsule (Spiriva) INHALE ONE CAPSULE VIA HANDIHALER EVERY MORNING. DO NOT SWALLOW CAPSULE. 90 Capsule 3 06/26/2022 4 Active Fluticasone-Salmet[place] rol 230-21 MCG/ACT Inhalation Aerosol (Advair)Indications :COPD, group B, by GOLD 2017 classification ([facility]) INHALE TWO PUFFS BY MOUTH EVERY MORNING AND INHALE TWO PUFFS BY MOUTH AT BEDTIME, RINSE MOUTH AFTER USE 36 g 3 04/17/2022 4 Active Roflumilast 500 MCG Oral Tablet (Daliresp)Indicatio ns:COPD, group D, by GOLD 2017 classification (FORMERLY [...] 12/23/2022 Active Furosemide 40 MG Oral Tablet (Lasix)Indications: [...] Omeprazole 20 MG Oral Capsule Delayed Release (PriLOSEC)Lindatio ns:Gastroesophageal reflux disease without esophagitis TAKE ONE CAPSULE BY MOUTH EVERY MORNING *NEED UPDATED LABS* 90 Capsule 1 03/21/2023 4 Active Omeprazole 20 MG Oral Capsule Delayed Release (PriLOSEC)Indicatio ns:Gastroesophageal reflux disease without esophagitis TAKE ONE CAPSULE BY MOUTH EVERY MORNING *NEED UPDATED LABS* 90 Capsule 1 10/02/2022 3 Discontinu ed(Refill) Hospital, Clinic, or Other Facility Administered Medication Ordered Dose Route Frequency Start Date End Date Status albuterol sulfate (PROVENTIL) (2.5 MG/3ML) 0.083% inhalation solution 2.5 mgIndications:COPD, severe (HCC) 2.5 mg NEBULIZER Q4H PRN 07/08/2018 Active documented as of this encounter (statuses as of 03/21/2023) Active Problems Problem Noted Date Diagnosed Date [...] Dyslipidemia 02/07/2019 Peripheral arterial disease 12/28/2018 Old [place] (myocardial infarction) 01/03/2018 YISSEL treated with BiPAP [...] tis 01/05/2014 Coronary artery disease invo lving [place] coronary artery of [place] heart without angina pectoris 11/27/2013 Tobacco abuse 11/27/2013 HTN, goal below 130/80 03/06/2009 Overview: Modified per HTN protocol #16. documented as of this encounter (statuses as of 03/21/2023) Resolved Problems Problem Noted Date Diagnosed Date [...] as of this encounter (statuses as of 03/21/2023) Immunizations Name Administration Dates Next Due COVID-19 mRNA, LNP-s, No Pre serve, 2-Dose Series ([employer] [facility]) 02/25/2023,02/10/2022,07/13/2020,06/17 Pneumococcal Conjugate Vacc, 13 Valent (Prevnar) [...] encounter Miscellaneous Notes * Telephone Encounter - Silvia Monroe RPh - 03/21/2023 11:30 AM EST Signed Prescriptions: Disp Refills Omeprazole 20 MG Oral Capsule Delayed Rele*90 Cap*1 Sig: TAKE ONE CAPSULE BY MOUTH EVERY MORNING *NEED UPDATED LABS*Authorizing Provider: JOHN NEWBY User: SILVIA MONROE documented in this encounter Plan of Treatment Upcoming Encounters Date Type Department Care Team (Late st Contact Info) Description 04/01/2023 10:00 AM EST Imaging [facility] 2nd Floor Cardiology, [place] [address] [facility] [place] [address] Gw, Excess Time Radiology [address] [facility] [place] [address] 04/02/2023 10:20 AM EST Office Visit Podiatry [facility] [address] [facility] [place] [address] Bettye Herrmann DPM [address] [place] [address] 04/26/2023 11:30 AM EST Office Visit Orthopaedics [facility] [address] [facility] [place] [address] Zander Wilkins, [facility] [place] [address] 05/05/2023 11:30 AM EST Office Visit Gastroenterology, [facility] [address] [facility] [place] [address] Agnes Bowers CRNP [address] [facility] [place] [address] 05/31/2023 11:40 AM EST Office Visit Podiatry [facility] [address] [facility] [place] [address] Bettye Herrmann DPM [address] [place] [address] 07/08/2023 10:00 AM EDT Imaging Radiology [facility] 1st Floor, [place] [address] [facility] [place] [address] 07/13/2023 11:00 AM EDT Office Visit Radiation Oncology, [address] [place] [address] Shawna Johnson MD [address] [place] [address] 07/19/2023 11:40 AM EDT Office Visit Family Practice [facility] [address] [place] [address] John Newby MD [address] [facility] [place] [address] 09/16/2023 9:00 AM EDT Office Visit Cardiology, [facility] [address] [place] [address] Deisy Aguirre CRNP [address] [place] [address] Scheduled Procedures Name Priority Associated Diagnoses Date/Ti [...] 05/01/2023 05/01/2022, 02/13/2022 CKD PHOS USE SMARTSET 52100 06/05/202305/20, 06/03/2021, 06/04/2020, Additional history exists GFR [...] Additional history exists CKD HGB USE SMARTSET 75254 03/10/202403/10, 01/18/2023, 01/15/2023, Additional history exists COLONOSCOPY-EVERY [...] this encounter Medical Devices Implanted Type Area Business Development Executive Device Identifier Shelf Expiration Date Model / Serial / Lot Lens Intraoc 24.0 - [id number] - [id number] Implanted:Qty: 1 on 06/01/2017 by Nikhil Bolton MD at OR [facility] Left: Eye [employer] 07/17/2021 [id number] / [id number] / [id number] Lens Intraoc 24.0 - [id number] - [id number] Implanted:Qty: 1 on 06/08/2017 by Nikhil Bolton MD at OR [facility] Right: Eye [employer]OM[employer] 07/17/2021 [id number] / [id number] / [id number] documented as of this encounter Visit Diagnoses Diagnosis Gastroesophageal reflux disease without esophagitis Esophageal reflux documented in this encounter Advance Directives Documents on File Type Date Recorded Patient Corn Cooker Guillermo ware Advance Directives and Yu Watkins 11/20/2005 ADVANCE [...] and were consensually agreed upon. Care Teams Machine Joint Cutter Relationship Specialty Start Date End Date John Newby MD [address] [place] [address] PCP - General Family Medicine 09/13/20 documented as of this encounter
--- OUTSIDE RECORDS SUMMARY | 2023-04-15 00:15 | External Medical Summary | Summary of Care ---
Author Name Unknown Organization [facility] Address [address] [place] [address] Phone [phone] Care Team Providers Care Business Insurance Agent Name Role Phone Johnnie Newby MD Primary Care Provider [phone] Encounter Details Date Type Department Care Team (Late st Contact Info) Description 02/16/2023 Patient Reported Data Patient Survey Ortho OBERD Allergies Active Allergy Reactions Criticality Noted Date Comments Acetaminophen 05/06/2005 headaches documented as of this encounter (statuses as of 02/16/2023) Medications Medication Sig Dispensed Refills Start Date End Date Status DAILY MULTIVITAMIN PO TABS with lycopene 0 Active BUSPAR 15 MG PO TABS Take by mouth. Uses as needed 0 Active clonazePAM (KLONOPIN) 0.5 MG Tablet Uses as needed 0 06/17/2016 Active risperiDONE 0.25 MG Oral TabletIndications:pt takes .5 mg at bedtime and .025 mid morning Take 2 Tablets by mouth at bedtime. 0 Active ONETOUCH ULTRA BLUE STRPIndications:Type 2 diabetes mellitus with hemoglobin A1c goal of less than 7.0% ([facility]) TEST ONCE DAILY 100 Strip 5 03/02/2018 Active Ventolin HFA 108 (90 Base) MCG/ACT Inhalation Aerosol SolutionIndications: COPD, moderate ([facility]) Take 2 Puffs by mouth 4 times [...] 270 Capsule 0 07/08/2022 4 Active Tiotropium [place] Monohydrate 18 MCG Inhalation Capsule (Spiriva) INHALE ONE CAPSULE VIA HANDIHALER EVERY MORNING. DO NOT SWALLOW CAPSULE. 90 Capsule 3 06/26/2022 4 Active Fluticasone-Salmeter ol 230-21 MCG/ACT Inhalation Aerosol (Advair)Indications: COPD, group B, by GOLD 2017 classification ([facility]) INHALE TWO PUFFS BY MOUTH EVERY MORNING AND INHALE TWO PUFFS BY MOUTH AT BEDTIME, RINSE MOUTH AFTER USE 36 g 3 04/17/2022 3 Active Roflumilast 500 MCG Oral Tablet (Daliresp)Indication s:COPD, group D, by GOLD 2017 classification ([facility]) TAKE ONE TABLET BY MOUTH EVERY MORNING [...] as of this encounter (statuses as of 02/16/2023) Active Problems Problem Noted Date Diagnosed Date [...] Dyslipidemia 02/07/2019 Peripheral arterial disease 12/28/2018 Old [place] (myocardial infarction) 01/03/2018 YISSEL treated with BiPAP [...] as of this encounter (statuses as of 02/16/2023) Resolved Problems Problem Noted Date Diagnosed Date [...] as of this encounter (statuses as of 02/16/2023) Immunizations Name Administration Dates Next Due COVID-19 mRNA, LNP-s, No Pre serve, 2-Dose Series (Pfizer) 02/10/2022,07/13/2020,06/17/2020 Pneumococcal Conjugate Vacc, 13 Valent (Prevnar) 04/06/2014 [...] (Adult) 01/05/2014 Zoster Vaccine Recombinant (Shingrix) 02/27/2020 ,11/30/2019 documented as of this encounter Social History [...] Care Team (Late st Contact Info) Description 02/26/2023 3:40 PM EST Office Visit Podiatry [facility] [address] [facility] [place] [address] Bettye Herrmann, DPLiat [address] [place] [address] [place] [address] 03/10/2023 10:30 AM EST Office Visit Cardiology, [facility] [address] [facility] [place] [address] Deisy Aguirre CRNP [address] [place] [address] 03/16/2023 10:00 AM EST Telemedicine Interventional Pain Center, [facility] [address] [facility] [place] [address] Pb Alexander, [address] [place] [address] 04/26/2023 11:30 AM EST Office Visit Orthopaedics [facility] [address] [facility] [place] [address] Zander Wilkins S, DO [address] [place] [address] 05/05/2023 11:30 AM EST Office Visit Gastroenterology, [facility] [address] [place] [address] Anges Bowers CRNP [address] [place] [address] 07/08/2023 10:00 AM EDT Imaging Radiology [address] [place] [address] 07/13/2023 11:00 AM EDT Office Visit Radiation Oncology, [address] [place] [address] Shanwa Johnson MD [address] [place] [address] [place] [address] 07/19/2023 11:40 AM EDT Office Visit Family Practice [facility] [address] [place] [address] Johnnie Newby MD [address] [facility] [place] [address] Scheduled Procedures Name Priority Associated Diagnoses Date/Ti me COLONOSCOPY FLEXIBLE PROXIMA L DIAGNOSTIC Recall History of colonic polyps Health Maintenance Due Date Last Done Comments Hepatitis B (1 of 3 - Risk 3-dose series) 2003 Depression Screening 05/31/2020 05/31/2019 COVID-19 Vaccine ( season) 2022 02/10/2022, 07/13/2020, 06/17/2020 Diabetic Eye Exam 04/09/2023 04/09/2022, , 03/30/2020, Additional history exists DISCUSS TOBACCO CESSATION (REFER TO SMARTSET #3291) 05/01/2023 05/01/2022, 02/13/2022 CKD PHOS USE SMARTSET 03113 06/05/202305/20, 06/03/2021, 06/04/2020, Additional history exists GFR 06/17/2023 12/17/2022, 05/20, 12/02/2021, Additional history exists HbA1c 07/16/2023 01/15/2023, 05/20, 12/02/2021, Additional history exists Diabetic Foot Exam 09/10/2023 09/09/2022, 1 , 11/12/2017, Additional history exists DTaP,Tdap,and Td Vaccines (2 - Td or Tdap) 01/06/2024 01/05/2014 O2 ASSESSMENT COMPLETED IN PAST YEAR FOR COPD 01/15/2024 01/14/2023 CKD HGB USE SMARTSET 66432 01/19/202401/18, 01/15/2023, 01/08/2023, Additional history exists Albumin/Creatinine Ratio 02/05/2024 023, 01/15/2023, 06/04/2021, Additional history exists COLONOSCOPY-EVERY 2 YRS AGES 18-100 01/14/2025 01/14/2023, 01/14/2023, 03/05/2022, Additional history exists Pneumococcal Vaccine: 65+ Years Completed 11/07/2015, 04/06/2014 Alpha-1 Antitrypsin Completed 05/22/2019 Zoster Vaccines Completed 02/27/2020, 11/17, 01/05/2014 Influenza Vaccine (FLU shot) Completed 12/31/2022, 02/10/2022, 03/05/2021, Additional history exists COLONOSCOPY-ANNUAL AGES 18-100 Discontinued 01/14/2023, 01/14/2023, 03/05/2022, Additional history exists GARDASIL-HPV IMMUNIZATION SERIES Aged Out No longer eligible based on patient's age to complete this topic MENINGOCOCCAL (MENACTRA/MENVEO) Aged Out No longer eligible based on patient's age to complete this topic documented as of this encounter Medical Devices Implanted Type Area Stock Layer Device Identifier Shelf Expiration Date Model / Serial / Lot Lens Intraoc 24.0 - [id number] - [id number] Implanted:Qty: 1 on 06/01/2017 by Nikhil Bolton MD at OR [facility] Left: Eye [employer]OM[employer] 07/17/2021 [id number] / [id number] / [id number] Lens Intraoc 24.0 - [id number] - [id number] Implanted:Qty: 1 on 06/08/2017 by Nikhil Bolton MD at OR [facility] Right: Eye [employer]OMB 07/17/2021 [id number] / [id number] / [id number] documented as of this encounter Advance Directives Documents on File Type Date Recorded Patient 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 Care Teams Business Insurance Agent Relationship Specialty Start Date End Date Johnnie Newby MD [address] [facility] [place] [address] PCP - General Family Medicine 09/13/20 documented as of this encounter
--- OUTSIDE RECORDS SUMMARY | 2023-04-15 00:15 | External Medical Summary | Summary of Care ---
Author Name Unknown Organization [facility] Address [address] [place] [address] Phone [phone] Care Team Providers Care Test Director Name Role Phone Johnnie Newby MD Primary Care Provider [phone] Reason for Visit * Auth/Cert Specialty Diagnoses / Procedures Referred By Treva judd Referred To Contact Diagnoses 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 radiculopathy 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 radiculopathy [M47.817] Procedures DESTROY LUMBAR SACRAL NERVE IMAGING SINGLE DESTROY LUMBAR SACRAL NERVE IMAGING ADD'L DESTROY LUMBAR SACRAL NERVE IMAGING SINGLE DESTROY LUMBAR SACRAL NERVE IMAGING ADD'L Referral ID Status Reason Start Date Expiration Date Visits Re quested Visits Authorized [id number] Encounter Details Date Type Department Care Team Description 01/27/2023 Hospital Encounter OR [facility], Operating Room [facility] [address] [place] [phone] Catherine, Pb Fermin, [address] [facility] [place] [address] Allergies Active Allergy Reactions Severity Noted Date Comments Acetaminophen 05/06/2005 headaches documented as of this encounter (statuses as of 01/28/2023) Medications Medication Sig Dispensed Refills Start Date [...] hemoglobin A1c goal of less than 7.0% ([facility]) TEST ONCE DAILY 100 Strip 5 [...] 24 Hour (Imdur)Indications:C oronary artery disease involving buckland coronary artery without angina pectoris TAKE ONE [...] 270 Capsule 0 07/08/2022 4 Active Tiotropium Becker Monohydrate 18 MCG Inhalation Capsule (Spiriva) INHALE ONE CAPSULE VIA HANDIHALER EVERY MORNING. DO NOT SWALLOW CAPSULE. 90 Capsule 3 06/26/2022 4 Active Fluticasone-Salmeter ol 230-21 MCG/ACT Inhalation Aerosol (Advair)Indications: COPD, group B, by GOLD 2017 classification ([facility]) INHALE TWO PUFFS BY MOUTH EVERY MORNING AND INHALE TWO PUFFS BY MOUTH AT BEDTIME, RINSE MOUTH AFTER USE 36 g 3 04/17/2022 3 Active Roflumilast 500 MCG Oral Tablet (Daliresp)Indication s:COPD, group D, by GOLD 2017 classification ([facility]) TAKE ONE TABLET BY MOUTH EVERY [...] (toPROL XL)Indications:SVT (supraventricular tachycardia),NSVT (nonsustained ventricular tachycardia) ([facility]) TAKE ONE TABLET BY MOUTH EVERY [...] THE MORNING 16 g 1 01/15/2023 Active documented as of this encounter (statuses as of 01/28/2023) Active Problems Problem Noted Date Diabetic peripheral neuropathy 3 Diverticulosis of large intestine withou t hemorrhage 01/15/2023 Anemia of chronic disease 01/15/2023 Gouty arthropathy 12/22/2022 History of cardioembolic cerebrovascular accident (CVA) 06/09/2022 Depression with anxiety 06/05/2022 Obesity, Class I, BMI 30.0-34.9 (see act ual BMI) 06/04/2021 Malignant neoplasm of right upper lobe o f lung 08/29/2020 Cancer Staging:Clinical stage from 08/21/2020:Stage IA2(cT1b, cN0, cM0) - Signed by Shawna Johnson MD on 08/29/2020 Chronic kidney disease, stage 3a 021 Overview: Per CKD protocol AAA (abdominal aortic aneurysm) 06/29/19 Overview: 4.1 cm AAA noted on PET CT 05/29/20 Aortic valve stenosis 11/30/2019 NSVT (nonsustained ventricular tachycard ia) 11/13/2019 Carotid stenosis, non-symptomatic 2019 COPD, group D, by GOLD 2017 classificati on 05/30/2019 Overview: Per COPD GOLD Classification Dyslipidemia 02/07/2019 Peripheral arterial disease 12/28/2018 Old MD (myocardial infarction) 8 YISSEL treated with BiPAP 01/03/2018 Overview: Wears BiPAP at night Type 2 diabetes mellitus with hemoglobin A1c goal of less than 8.0% 10/23/2014 Overview: ICD-10 update of inactive term CVA, old, 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 PTSD (post-traumatic stress disorder) Gastroesophageal reflux disease without esophagitis 01/05/2014 Coronary artery disease invo lving buckland coronary artery of buckland heart without angina pectoris 11/27/2013 Tobacco abuse 11/27/2013 HTN, goal below 130/80 03/06/2009 Overview: Modified per HTN protocol #16. documented as of this encounter (statuses as of 01/28/2023) Resolved Problems Problem Noted Date Resolved Date Overweight (BMI 25.0-29.9) 09/09/202201/15 Obesity, Class II, BMI 35-39.9, isolated (see ac tual BMI) 12/02/2021 09/09/2022 Type 2 diabetes mellitus wit h stage 3a chronic kidney disease, without long-term current use of insulin 08/27/202005/20 Overview: Per CKD protocol Hypertensive kidney disease with stage 3a chronic kidney disease 06/24/2020 01/15/2023 Overview: Per CKD protocol - HTN + CKD III = conditions have assumed relationship per current coding guidelines. Hypertensive kidney disease with chronic kidney disease stage III 11/16/2019 06/27/2020 Overview: HTN + CKD III = conditions have assumed relationship per current coding guidelines. Type 2 diabetes mellitus with peripheral artery disease 05/19/2019 06/03/2022 COPD, group B, by GOLD 2017 classification 08/0802/07/2019 Asthma with COPD 08/08/2018 02/07/2019 Ground glass opacity present on imaging of lung 08/03/2018 09/11/2020 Pulmonary emphysema 08/02/2018 05/07/2020 Type 2 diabetes mellitus wit h diabetic neuropathy, without long-term current use of insulin 08/02/2018 01/15/2023 Diabetes mellitus with stage 3 chronic kidney di sease 05/02/2018 08/29/2020 Overview: Per CKD protocol #1 COPD (chronic obstructive pulmonary disease) wit h emphysema 04/25/2018 11/29/2020 History of smoking 30 or more pack years 018 11/29/2020 Kidney disease, chronic, stage III (GFR 30-59 ml /min) 04/29/2015 08/27/2016 Overview: Per CKD protocol #1 COPD, moderate 01/05/2014 04/25/2018 Depression, major, recurrent 01/05/2014 Generalized anxiety disorder 01/05/2014 Benign neoplasm of colon 09/18/2010 019 Overview: adenomatous-repeat colonoscopy in 6 months Family history of GI malignancy 08/19/2010 04/25/2018 ADVANCE DIRECTIVE INFORMATION 07/18/2007 Overview: Yes, Patient instructed to provide copy of advance directive for provider to review and to be scanned into Electronic Medical Record Scar conditions and fibrosis of skin 02/22/2007 05/31/2019 HYPERTENSION NOS 05/06/2005 03/06/2009 Overview: Modified per HTN protocol #16. Dyslipidemia, goal LDL below 100 05/06/2005 02/07/2019 documented as of this encounter (statuses as of 01/28/2023) Immunizations Name Administration Dates Next Due COVID-19 mRNA, LNP-s, No Pre serve, 2-Dose Series (SmartMove) 02/10/2022,07/13/2020,06/17/2020 Pneumococcal Conjugate Vacc, 13 Valent (Prevnar) [...] drink = 0.6 oz pur e alcohol) Food Insecurity Answer Date Recorded Within the past 12 months, y ou worried that your food would run out before you got money to buy more. Never true 12/28/2018 Within the past 12 months, t he food you bought just didn't last and you didn't have money to get more. Never true 12/28/2018 Sex Assigned at Date Recorded Male 08/02/2018 7:58 AM E DT Job Start Date Occupation Industry Not on file Not on file Not on file documented as of this encounter Last Filed Vital Signs Vital Sign Reading Time Taken Comments Blood Pressure 94/48 01/27/2023 2:30 PM EDT Pulse 58 01/27/2023 2:30 PM EDT Temperature 36.4 C (97.6 F) 01/27/2023 2:30 PM ED T Respiratory Rate 16 01/27/2023 2:30 PM EDT Oxygen Saturation 95% 01/27/2023 2:30 PM EDT Inhaled Oxygen Concentration - - Weight - - Height - - Body Mass Index - - documented in this encounter Discharge Instructions * Discharge Instr - AVS* Pb Alexander DO - 01/27/2023 2:26 PM EDT [facility] [address] [place] [address] Discharge Date: 01/27/2023 You may call [facility] at [phone] during business hours. For after-hours emergencies call 911. Your attending physician at the time of your discharge was: Pb [facility] [address] [facility] [address] The information below provides you with the instructions and the list of medications you need to betaking following discharge from the hospital. If you have any questions, please ask before leaving.Please carry this letter with you when you see your doctor in the clinic. Diet: Resume your normal diet If you are diabetic, follow your blood sugars closely for next 2-3 days as they are likely to be elevated. If you are having difficulty controlling your blood sugars call your family doctor or the physician that treats your diabetes. Activity: Do not engage in strenuous activity today Resume your normal activities tomorrow Do not soak in water for 24 hours. No swimming, hot tub or bath but showering is allowed. Do not use heat on the injection site for 24 hours. If uncomfortable ice may be helpful. Some injections may make your arms or legs weak for a few hours. Be extremely careful when walking or changing positions that you do not fall. Have someone assist you for the next 6 hours. If weakness or numbness becomes progressive CALL IMMEDIATELY or GO TO THE NEAREST EMERGENCY ROOM Keep a diary of your pain until seen in the office to help us determine how effective the injectionwas Do not restart physical therapy or chiropractic manipulation until 48 hours after your injection Call : If weakness or numbness suddenly becomes worse or become progressive If the injection site becomes red, swollen, warm to the touch, begins to bleed or drain fluid, or is excessively painful. If you have any questions Medications: Resume all the medications you were taking prior to your injection. Resume your anticoagulants tomorrow unless otherwise instructed by your family physician, resource technician or the anticoagulation clinic. Additional Instructions: Driving: . Date you may return to work or school: Follow Up: Telemedicine visit in 6 weeks. documented in this encounter Progress Notes * Pb Alexander DO - 01/27/2023 2:26 PM EDT [facility] [address] [address] OUTPATIENT SURGERY DISCHARGE SUMMARY NOTE Name: Wlater Don Location: OR [facility]/OR Date: 01/27/2023 Time: 2:26 PM Surgery Date: 01/27/2023 Procedure: Procedure(s): DESTROY LUMBAR SACRAL NERVE IMAGING SINGLE DESTROY LUMBAR SACRAL NERVE IMAGING ADD'L No laterality found for procedure #1 No laterality found for procedure #2 Surgeon: Surgeon(s): Pb Alexander DO Discharge Diagnosis: Lumbar spondylosis After examination of this patient, I have determined he is ready for discharge to home when the patient meets criteria. Discharge instructions were given to the patient. documented in this encounter H&P Notes * Pb Alexander, DO - 01/27/2023 6:55 AM EDT Interventional Pain Pre-Procedure Assessment Name:Walter Don Date:01/27/2023 Time:6:55 AM Procedure(s): Bilateral lumbar facet joint radiofrequency ablation L4-L5 and L5-S1 Diagnosis: Lumbar spondylosis Pre-Procedure Assessment: Prior to the procedure, the patient was identified. The patient's history, medications and allergies were reviewed . The patient is competent. The risks and benefits of the proposed procedure and theplanned sedation were discussed with the patient. All questions were answered and informed consent for the procedure was obtained. Prior to Admission medications Medication Sig Last Dose Discont. Fluticasone Propionate 50 MCG/ACT Nasal Suspension (Flonase) USE TWO SPRAYS IN EACH NOSTRIL IN THE MORNING Furosemide 40 MG Oral Tablet (Lasix) Take 1 Tablet by mouth in the morning. Colchicine 0.6 MG Oral Tablet Take 2 tablets by mouth. One hour later, take 1 tablet by mouth. Take1 tablet by mouth once daily after until symptoms resolve. Vitron-C 65-125 MG Oral Tablet (Iron-Vitamin C 65-125 mg per tab) Take 1 Tablet by mouth in the morning. Atorvastatin Calcium 80 MG Oral Tablet (Lipitor) TAKE ONE TABLET BY MOUTH AT BEDTIME Metoprolol Succinate ER 25 MG Oral Tablet Extended Release 24 Hour (toPROL XL) TAKE ONE TABLET BY MOUTH EVERY DAY Apixaban 5 MG Oral Tablet (Eliquis) Take 1 Tablet by mouth in the morning and 1 Tablet before bedtime. Aspirin 81 MG Oral Tablet Chewable chew 1 Tablet by mouth in the morning. Roflumilast 500 MCG Oral Tablet (Daliresp) TAKE ONE TABLET BY MOUTH EVERY MORNING Omeprazole 20 MG Oral Capsule Delayed Release (PriLOSEC) TAKE ONE CAPSULE BY MOUTH EVERY MORNING *NEED UPDATED LABS* Isosorbide Mononitrate ER 60 MG Oral Tablet Extended Release 24 Hour (Imdur) TAKE ONE TABLET BY MOUTH EVERY MORNING Lisinopril 20 MG Oral Tablet (Prinivil) TAKE ONE TABLET BY MOUTH EVERY MORNING metFORMIN HCl 1000 MG Oral Tablet (Glucophage) TAKE ONE TABLET BY MOUTH EVERY MORNING FLUoxetine HCl 20 MG Oral Capsule (PROzac) TAKE THREE CAPSULES BY MOUTH EVERY MORNING Vitamin B-12 1000 MCG Oral Tablet (Cyanocobalamin) Take 1 Tablet by mouth in the morning. Tiotropium Becker Monohydrate 18 MCG Inhalation Capsule (Spiriva) INHALE ONE CAPSULE VIA HANDIHALER EVERY MORNING. DO NOT SWALLOW CAPSULE. BiPAP every night at bedtime. Fluticasone-Salmeterol 230-21 MCG/ACT Inhalation Aerosol (Advair) INHALE TWO PUFFS BY MOUTH EVERY MORNING AND INHALE TWO PUFFS BY MOUTH AT BEDTIME, RINSE MOUTH AFTER USE FLUoxetine HCl 20 MG Oral Capsule (PROzac) TAKE 3 CAPSULES BY MOUTH EVERY MORNING Gabapentin 300 MG Oral Capsule (Neurontin) Take by mouth 1 Capsule before bedtime. Mirtazapine 15 MG Oral Tablet (Remeron) Take one and half tablets by mouth daily at bedtime Ventolin HFA 108 (90 Base) MCG/ACT Inhalation Aerosol Solution Take 2 Puffs by mouth 4 times a day as needed for Shortness of Breath or Wheezing. ONETOUCH ULTRA BLUE STRP TEST ONCE DAILY risperiDONE 0.25 MG Oral Tablet Take 2 Tablets by mouth at bedtime. clonazePAM (KLONOPIN) 0.5 MG Tablet Uses as needed BUSPAR 15 MG PO TABS Take by mouth. Uses as needed DAILY MULTIVITAMIN PO TABS with lycopene Review of patient's allergies indicates: Allergen Reactions Tylenol [Acetaminophen] headaches There were no vitals taken for this visit. Physical Exam: Mental Status Examination: alert and oriented. Airway Examination: normal oropharyngeal airway and neck mobility. Respiratory Examination: clear to auscultation. CV Examination: normal. ASA Grade: III - A patient with severe systemic disease. After reviewing the risks and benefits, the patient was deemed in satisfactory condition to undergothe procedure. The anesthesia plan was to use local anesthesia. Pb Alexander DO 01/27/2023 documented in this encounter Nursing Notes * Jadyn Lundberg RN - 01/27/2023 2:38 PM EDT Pt tolerated procedure well. Pt has been visited by Dr. Alexander. Discharge instructions reviewed with pt and pt has verbalized understanding of these teachings. Pt ready for discharge. * Yissel Fonseca RN - 01/27/2023 2:27 PM EDT Tolerated ablation without complications documented in this encounter OR Notes * OR Surgeon - Pb Alexander DO - 01/27/2023 2:26 PM EDT [facility] [place] [address] [place] [address] OPERATIVE RECORD [facility], Operating Room [facility] [address] [place] [address] Walter Don : 1945 Location: @LOCATIONNAME@ SERVICE: Pain Management DATE: 01/27/2023 PRE-OP DIAGNOSIS: Lumbar spondylosis without myelopathy or radiculopathy. POST-OP DIAGNOSIS: Same. SURGEON: Pb Alexander DO. ASSISTANTS: None. ANESTHESIA: 5 mL of 1% lidocaine. OPERATION: Bilateral lumbar facet joint radiofrequency ablation, L4-L5 and L5-S1. FINDINGS: No intraoperative findings. ESTIMATED BLOOD LOSS: No blood loss. DRAINS: There were no drains placed. FLUIDS: No IV fluids. URINE OUTPUT: No urine output. SPECIMEN: No specimens collected. COMPLICATIONS: No complications. CONDITION: Good. INDICATIONS AND HISTORY: Walter Don presents in anticipation of undergoing radiofrequency ablation for persistent low back pain refractory to conservative treatment. Patient has had appropriate response to diagnostic injection, as well as discussion of the ablation procedure including the risksof bleeding, infection, neural injury, worsening pain, or failure. Patient also understands the results may not be permanent, as medial branch function can return over time. DESCRIPTION OF OPERATION: The patient was identified, and the procedure was verified. After obtaining appropriate informed consent, the patient was taken to the fluoroscopy suite, placed in a prone position. Time-out was taken to properly identify patient and procedural sites. The lumbar region wassterilely prepped with ChloraPrep and draped bilaterally, and #20-gauge 10 cm rhizotomy cannulas with 10 mm active tips were advanced with fluoroscopic guidance toward the junction of the superior articular process with the superomedial aspect of transverse process, making bony contact at L4, L5 and the sacral ala after infiltration of the skin and subcutaneous tissue with 1.5 mL of 1% lidocaine at each site. After negative aspiration, rhizotomy probes were placed through the cannulas and motorstimulation at 2 hertz was completed up to a threshold of 1.5 V and there was no evidence of lower extremity radicular symptomatology. Appropriate cannula position was further confirmed in the lateral fluoroscopic view, and 0.5 mL of 2% preservative-free lidocaine was placed through each cannula and lesions were then created at 80 degrees centigrade with a 20-second ramp up time without pain or paresthesia. This was completed at both levels and the cannula was removed. The procedure was repeated on the right side using identical technique. Sterile dressings were applied. Patient tolerated procedure well without immediate complication, will be re-evaluated by telemedicine in 4- 6 weeks, and was given appropriate discharge instructions, following postprocedure monitoring. documented in this encounter Plan of Treatment Upcoming Encounters Date Type Specialty Care Team Description 02/15/2023 Office Visit Orthopedics Abe Prater MD [facility] [address] [place] [phone] 02/26/2023 Office Visit Podiatry Bettye Herrmann DPM [address] [facility] [place] [address] 03/10/2023 Office Visit Cardiology Deisy Aguirre CRNP [address] [place] [address] 03/16/2023 Telemedicine Pain Medicine Pb Alexander DO [address] [place] [address] 04/26/2023 Office Visit Orthopedics Zander Wilkins DO [address] [place] [address] 05/05/2023 Office Visit Gastroenterology Agnes Bowers CRNP [address] [place] [address] 07/08/2023 Imaging Radiology 07/13/2023 Office Visit Radiation Oncology Shawna Johnson MD [address] [place] [address] [place] [address] 07/19/2023 Office Visit Family Medicine Johnnie Newby MD [address] [place] [address] Scheduled Procedures Name Priority Associated Diagnoses Date/Ti me COLONOSCOPY FLEXIBLE PROXIMA L DIAGNOSTIC Recall History of colonic polyps Health Maintenance Due Date Last Done Comments Depression Screening 05/31/2020 05/31/2019 COVID-19 Vaccine ( season) 2022 02/10/2022, 07/13/2020, 06/17/2020 DIABETES-EYE EXAM 04/09/2023 04/09/2022, , 03/30/2020, Additional history exists DISCUSS TOBACCO CESSATION (REFER TO SMARTSET #3291) 05/01/2023 05/01/2022, 02/13/2022 CKD PHOS USE SMARTSET 56630 06/05/202305/20, 06/03/2021, 06/04/2020, Additional history exists GFR 06/17/2023 12/17/2022, 05/20, 12/02/2021, Additional history exists HbA1c 07/16/2023 01/15/2023, 05/20, 12/02/2021, Additional history exists Diabetic Foot Exam 09/10/2023 09/09/2022, 1 , 11/12/2017, Additional history exists DTaP,Tdap,and Td Vaccines (2 - Td or Tdap) 01/06/2024 01/05/2014 O2 ASSESSMENT COMPLETED IN PAST YEAR FOR COPD 01/15/2024 01/14/2023 Albumin/Creatinine Ratio 01/16/2024 023, 06/04/2021, 04/04/2018, Additional history exists CKD HGB USE SMARTSET 28694 01/19/202401/18, 01/15/2023, 01/08/2023, Additional history exists COLONOSCOPY-EVERY 2 YRS AGES [...] on patient's age to complete this topic Hepatitis B Aged Out No longer eligi ble based on patient's age to complete this topic MENINGOCOCCAL (MENACTRA/MENVEO) Aged Out No longer eligible based on patient's age to complete this topic documented as of this encounter Medical Devices Implanted Type Area Heel Gummer Device Identifier Shelf Expiration Date Model / Serial / Lot Lens Intraoc 24.0 - [id number] - [id number] Implanted:Qty: 1 on 06/01/2017 by Nikhil Bolton MD at OR [facility] Left: Eye [employer] 07/17/2021 [id number] / [id number] / [id number] Lens Intraoc 24.0 - [id number] - [id number] Implanted:Qty: 1 on 06/08/2017 by Nikhil Bolton MD at OR [facility] Right: Eye [employer]OM[employer] 07/17/2021 [id number] / [id number] / [id number] documented as of this encounter Procedures Procedure Name Priority Date/Time Associated Diagnosis Comments FLUORO INTERVENTIONAL PAIN PROCEDURE NONBILLABLE Routine 01/27/2023 2:30 PM EDT documented in this encounter Results * FLUORO INTERVENTIONAL PAIN PROCEDURE NONBILLABLE (01/27/2023 2:30 PM EDT) Narrative Scheduling, Silent - 01/27/2023 2:30 PM EDT This procedure will not be read by a Radiologist. Please see operative note. Pb Alexander DO RAD FLUOROSCOPY documented in this encounter Administered Medications Inactive Administered Medications - up to 3 most recent administrations Medication Order MAR Action Action Date Dose Rate Site lidocaine 1 % inj 15 mg 15 mg (1.5 mL), Subcutaneous, ONCE, On Wed01/27/23 at 1415, For 1 dose Given 01/27/2023 2:06 PM EDT 6 mL Other -Specify lidocaine 2 % inj 30 mg 30 mg (1.5 mL), Injection, ONCE, On Wed01/27/23 at 1415, For 1 dose Given 01/27/2023 2:10 PM EDT 3 mL documented in this encounter Active and Recently Administered Medications Times are shown in EDT. 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 Care Teams Test Director Relationship Specialty Start Date End Date Johnnie Newby MD [address] [place] [address] PCP - General Family Medicine 09/13/20 documented as of this encounter
--- OUTSIDE RECORDS SUMMARY | 2023-04-15 00:15 | External Medical Summary | Summary of Care ---
Author Name Unknown Organization [facility] Address [address] [place] [address] Phone [phone] Care Team Providers Care Custom Dressmaker Name Role Phone Johnnie Newby MD Primary Care Provider [phone] Encounter Details Date Type Department Care Team [...] hemoglobin A1c goal of less than 7.0% ([facility]) TEST ONCE DAILY 100 Strip 5 03/02/2018 Active Ventolin HFA 108 (90 Base) MCG/ACT Inhalation Aerosol SolutionIndications: COPD, moderate ([facility]) Take 2 Puffs by mouth 4 times [...] 24 Hour (Imdur)Indications:C oronary artery disease involving [place] coronary artery without angina pectoris TAKE ONE [...] 270 Capsule 0 07/08/2022 4 Active Tiotropium Cos[place] Monohydrate 18 MCG Inhalation Capsule (Spiriva) INHALE ONE CAPSULE VIA HANDIHALER EVERY MORNING. DO NOT SWALLOW CAPSULE. 90 Capsule 3 06/26/2022 4 Active Fluticasone-Salmeter ol 230-21 MCG/ACT Inhalation Aerosol (Advair)Indications: COPD, group B, by GOLD 2017 classification ([facility]) INHALE TWO PUFFS BY MOUTH EVERY MORNING AND INHALE TWO PUFFS BY MOUTH AT BEDTIME, RINSE MOUTH AFTER USE 36 g 3 04/17/2022 3 Active Roflumilast 500 MCG Oral Tablet (Daliresp)Indication s:COPD, group D, by GOLD 2017 classification ([facility]) TAKE ONE TABLET BY MOUTH EVERY MORNING [...] tis 01/05/2014 Coronary artery disease invo lving [place] coronary artery of [place] heart without angina pectoris 11/27/2013 Tobacco abuse [...] 02/26/2023 3:40 PM EST Office Visit Podiatry [facility] [address] [facility] [place] [address] Bettye Herrmann, DPLiat [address] [place] [address] [place] [address] 03/10/2023 10:30 AM EST Office Visit Cardiology, [facility] [address] [facility] [place] [address] Deisy Aguirre CRNP [address] [place] [address] 03/16/2023 10:00 AM EST Telemedicine Interventional Pain Center, [facility] [address] [facility] [place] [address] Pb Alexander, [address] [place] [address] 04/26/2023 11:30 AM EST Office Visit Orthopaedics [facility] [address] [facility] [place] [address] Zander Wilkins S, DO [address] [place] [address] 05/05/2023 11:30 AM EST Office Visit Gastroenterology, [facility] [address] [place] [address] Agnes Bowers CRNP [address] [place] [address] 07/08/2023 10:00 AM EDT Imaging Radiology [address] [place] [address] 07/13/2023 11:00 AM EDT Office Visit Radiation Oncology, [address] [place] [address] Shawna Johnson MD [address] [place] [address] [place] [address] 07/19/2023 11:40 AM EDT Office Visit Family Practice [facility] [address] [place] [address] Johnnie Newby MD 132 [facility] [place] [address] Scheduled Procedures Name Priority Associated Diagnoses Date/Ti [...] 05/01/2023 05/01/2022, 02/13/2022 CKD PHOS USE SMARTSET 02338 06/05/202305/20, 06/03/2021, 06/04/2020, Additional history exists GFR 06/17/2023 12/17/2022, 05/20, 12/02/2021, Additional history exists HbA1c 07/16/2023 01/15/2023, 05/20, 12/02/2021, Additional history exists Diabetic Foot Exam 09/10/2023 09/09/2022, 1 , 11/12/2017, Additional history exists DTaP,Tdap,and Td Vaccines (2 - Td or Tdap) 01/06/2024 01/05/2014 O2 ASSESSMENT COMPLETED IN PAST YEAR FOR COPD 01/15/2024 01/14/2023 CKD HGB USE SMARTSET 01559 01/19/202401/18, 01/15/2023, 01/08/2023, Additional history exists Albumin/Creatinine [...] this encounter Medical Devices Implanted Type Area Aircraft Assembler Device Identifier Shelf Expiration Date Model / Serial / Lot Lens Intraoc 24.0 - [id number] - [id number] Implanted:Qty: 1 on 06/01/2017 by Nikhil Bolton MD at OR [facility] Left: Eye [employer] 07/17/2021 [id number] / [id number] / [id number] Lens Intraoc 24.0 - [id number] - [id number] Implanted:Qty: 1 on 06/08/2017 by Nikhil Bolton MD at OR [facility] Right: Eye [employer]OM[employer] 07/17/2021 [id number] / [id number] / [id number] documented as of this encounter Advance Directives Documents on File Type Date Recorded Patient Irrigator Valve Pipe Expl 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 Care Teams Custom Dressmaker Relationship Specialty Start Date End Date Johnnie Newby MD 132 [facility] [place] [address] PCP - General Family Medicine 09/13/20 documented as of this encounter
--- OUTSIDE RECORDS SUMMARY | 2023-04-15 00:15 | External Medical Summary ---
Author Name Unknown Address Unknown Organization K1H:LABORATORY [facility] - [address] [place] [id number] Laboratory Report Ordering Provider Test Date Status FREDERICKWILLIAMDEONDRE 02/04/2023 16:26:00 Final Normal: <30 mg/g creatinine< br/>High: 30-300 mg/g creatinine
Very High: >300 mg/g creatinine
Nephrotic: >2200 mg/g creatinine Observation Date Value Abnormality Reference (Units ) Status Albumin, Urine 02/04/2023 16:26:00 <1.20 (mg/d L) Final This testing was performed a s part of a [facility] [employer] fulfillment initiative Creatinine, Urine 02/04/2023 16:26:00 21 (m g/dL) Final ALBUMIN/CREATININE RATIO, HIDE 02/04/2023 16:26:00 Uninterpretable Albumin/Creatinine ratio due to very low albumin and creatinine values. <30 (mg/g Creat) Final Performing Location LABORATORY [facility] - [address] [facility] [address]
--- OUTSIDE RECORDS SUMMARY | 2023-04-15 00:15 | External Medical Summary | Summary of Care ---
Author Name Unknown Organization [facility] Address [address] [place] [address] Phone [phone] Care Team Providers Care Return Agent Airport Name Role Phone John Newby MD Primary Care Provider [phone] Reason for Visit * Reason Onset Date Comments Medication Refill 10/01/2022 Encounter Details Date Type Department Care Team (Late st Contact Info) Description 10/01/2022 Refill Family Practice [facility] 132 [facility] [place] [address] John Newby MD 132 [facility] [place] [address] HTN, goal below 140/90*; CVA, old, ataxia Allergies Active Allergy Reactions Criticality Noted Date Comments Acetaminophen 05/06/2005 headaches documented as of this encounter (statuses as of 02/28/2023) Medications Medication Sig Dispensed Refills Start Date End Date Status DAILY MULTIVITAMIN PO TABS with lycopene 0 Active BUSPAR 15 MG PO TABS Take by mouth. Uses as needed 0 Active clonazePAM (KLONOPIN) 0.5 MG Tablet Uses as needed 0 7 Active risperiDONE 0.25 MG Oral TabletIndications: pt takes .5 mg at bedtime and .025 mid morning Take 2 Tablets by mouth at bedtime. 0 Active ONETOUCH ULTRA BLUE STRPIndications:Ty pe 2 diabetes mellitus with hemoglobin A1c goal of less than 7.0% ([facility]) TEST ONCE DAILY 100 Strip 5 8 Active Ventolin HFA 108 (90 Base) MCG/ACT Inhalation Aerosol SolutionIndication s:COPD, moderate ([facility]) Take 2 Puffs by mouth [...] by mouth in the morning. 0 Active ASPIRIN EC 81 MG PO TBECIndications:CA D in [place] artery 1 TABLET DAILY 99 Tab 99 4 12/09/19 23 Discontinued [place]-3 Fatty Acids (FISH OIL) 1000 MG Capsule Take 1 Capsule by mouth in the morning. 0 12/19/19 23 Discontinued(Md dication List Clean Up) Metoprolol Succinate ER 25 MG Oral Tablet Extended Release 24 Hour (toPROL XL)Indications:SVT (supraventricular tachycardia),NSVT (nonsustained ventricular tachycardia) ([facility]) TAKE ONE TABLET BY MOUTH EVERY DAY 90 Tablet 3 2 01/27/20 22 Discontinued([place] prescription brought in as discontinued) FLUoxetine HCl 20 MG Oral Capsule (PROzac) TAKE 3 CAPSULES BY MOUTH EVERY MORNING 270 Capsule 0 2 01/06/20 23 Atorvastatin Calcium 80 MG Oral Tablet (Lipitor) Take 1 Tablet (80 mg) by mouth at bedtime. 90 Tablet 1 2 03/31/20 22 Discontinued([place] prescription brought in as discontinued) Fluticasone-Salmet gume 230-21 MCG/ACT Inhalation Aerosol (Advair)Indication s:COPD, group B, by GOLD 2017 classification ([facility]) Inhale 2 Puffs by mouth in the morning and 2 Puffs before bedtime. Rinse mouth after use.. 36 g 3 2 04/17/20 22 Discontinued([place] prescription brought in as discontinued) Roflumilast 500 MCG Oral Tablet (Daliresp) Take 1 Tablet by mouth in the morning. 30 Tablet 9 3 05/01/19 23 Discontinued([place] prescription brought in as discontinued) Aspirin-Dipyridamo le ER 25-200 MG Oral Capsule Extended Release 12 Hour (Aggrenox)Indicati ons:CVA, old, ataxia Take 1 Capsule by mouth in the morning. 120 Capsule 0 3 10/02/19 23 Discontinued(Re fill) Spiriva HandiHaler 18 MCG Inhalation Capsule (tiotropium bromide) Inhale 1 Capsule by mouth in the morning. . Do not swallow capsule.. 90 Capsule 3 3 06/27/19 23 Discontinued([place] prescription brought in as discontinued) metFORMIN HCl 1000 MG Oral Tablet (Glucophage) Take 1 Tablet by mouth in the morning. 100 Tablet 1 3 09/04/19 23 Discontinued([place] prescription brought in as discontinued) Fluticasone Propionate 50 MCG/ACT Nasal Suspension (Flonase) Administer 2 Sprays into each nostril in the morning. 16 g 1 3 01/14/20 23 Discontinued Lisinopril 20 MG Oral Tablet (Prinivil)Indicati ons:HTN, goal below 140/90 Take 1 Tablet by mouth in the morning. 90 Tablet 2 3 09/19/19 23 Discontinued([place] prescription brought in as discontinued) Omeprazole 20 MG Oral Capsule Delayed Release (PriLOSEC)Indicati ons:Gastroesophage al reflux disease without esophagitis Take 1 Capsule by mouth in the morning. 90 Capsule 0 3 10/02/19 23 Discontinued(Re fill) Furosemide 40 MG Oral Tablet (Lasix)Indications :HTN, goal below 140/90 Take 1 Tablet by mouth in the morning. 100 Tablet 1 3 09/19/19 23 Discontinued([place] prescription brought in as discontinued) Isosorbide Mononitrate ER 60 MG Oral Tablet Extended Release 24 Hour (Imdur)Indications :Coronary artery disease involving [place] coronary artery without angina pectoris Take 1 Tablet by mouth in the morning. 90 Tablet 3 3 09/19/19 23 Discontinued([place] prescription brought in as discontinued) Aspirin-Dipyridamo le ER 25-200 MG Oral Capsule Extended Release 12 Hour (Aggrenox)Indicati ons:CVA, old, ataxia Take 1 Capsule by mouth in the morning. 90 Capsule 0 3 10/03/19 23 Discontinued([place] prescription brought in as discontinued) Hospital, Clinic, or Other Facility Administered Medication Ordered Dose Route Frequency Start Date End Date Status albuterol sulfate (PROVENTIL) (2.5 MG/3ML) 0.083% inhalation solution 2.5 mgIndications:COPD, severe (HCC) 2.5 mg NEBULIZER Q4H PRN 07/08/2018 Active Albuterol Sulfate (Proventil) (2.5 MG/3ML) 0.083% inhalation solution 2.5 mgIndications:COPD, moderate (HCC) 2.5 mg NEBULIZER PRN 02/13/2022 02/13/2023 Ended Albuterol Sulfate (Proventil) (5 MG/ML) 0.5% *conc* inhalation solution 2.5 mgIndications:COPD, moderate (HCC) 2.5 mg NEBULIZER PRN 02/13/2022 02/13/2023 Ended documented as of this encounter (statuses as of 02/28/2023) Active Problems Problem Noted Date Diagnosed Date [...] Dyslipidemia 02/07/2019 Peripheral arterial disease 12/28/2018 Old PR (myocardial infarction) 01/03/2018 YISSEL treated with BiPAP [...] tis 01/05/2014 Coronary artery disease invo lving [place] coronary artery of [place] heart without angina pectoris 11/27/2013 Tobacco abuse 11/27/2013 HTN, goal below 130/80 03/06/2009 Overview: Modified per HTN protocol #16. documented as of this encounter (statuses as of 02/28/2023) Resolved Problems Problem Noted Date Diagnosed Date [...] as of this encounter (statuses as of 02/28/2023) Immunizations Name Administration Dates Next Due COVID-19 mRNA, LNP-s, No Pre serve, 2-Dose Series (Pfizer) 02/10/2022,07/13/2020,06/17/2020 Pneumococcal Conjugate Vacc, 13 Valent (Prevnar) 04/06/2014 Pneumococcal Polysaccharide PPV23 (Pneumovax) 11/07/2015 Season Influenza, Quad, PF, Adjuvanted, 65+ Yrs, IM (FLUAD) 02/27/2020 Seasonal Influenza, Quadriva lent Hd (Fluzone Hd) 03/05/2021 Seasonal Influenza, Quadriva lent, No Preserve, IM [...] encounter Miscellaneous Notes * Telephone Encounter - Yennifer Palencia PHARM Tech - 02/28/2023 5:03 PM EST Patient had labs completed Thank you, Yennifer Palencia Child Welfare Specialist [facility] (Formerly [facility]) [phone] 02/28/2023,5:03 PM * Telephone Encounter - Willie Mcdowell RP - 10/02/2022 11:28 AM EDTSigned Prescriptions: Disp Refills Aspirin-Dipyridamole ER 25-200 MG Oral Cap*90 Cap*0 Sig: Take 1 Capsule by mouth in the morning. Authorizing Provider: JOHN NEWBY Ordering User: WILLIE MCDOWELL * Telephone Encounter - Willie Mcdowell RPh - 10/02/2022 11:24 AM EDT Provided 90 days supply with 0 refill(s). Per refill protocol patient should have cbc, tsh, alb/cr,mag, ast, alt on file within past year. Reviewed AMP report, Care Gaps/Health Maintenance, medications list, and for any routine labs typically ordered for this patient. Lab orders placed. Please contact patient to advise of labs ordered for blood draw AND URINE specimen (patient will have to be able to void to provide sample). Fasting is not required. Advise to obtain labs before requesting the next refill. Thank you, Willie Mcdowell, PharmD Clinical Pharmacist [facility] ([facility]) (formerly Telepharmacy) [phone] 10/02/2022, 11:25 AM documented in this encounter Plan of Treatment Upcoming Encounters Date Type Department Care Team (Late st Contact Info) Description 03/10/2023 10:30 AM EST Office Visit Cardiology, [facility] [address] [place] [address] Deisy Aguirre CRNP [address] [place] [address] 03/16/2023 10:00 AM EST Telemedicine Interventional Pain Center, [facility] [address] [facility] [place] [address] Pb Alexander, DO [address] [place] [address] 04/26/2023 11:30 AM EST Office Visit Orthopaedics [facility] 132 [facility] [place] [address] Zander Wilkins S, DO [address] [facility] [place] [address] 05/05/2023 11:30 AM EST Office Visit Gastroenterology, [facility] 132 [facility] [place] [address] Agnes Bowers CRNP [address] [place] [address] 05/31/2023 11:40 AM EST Office Visit Podiatry [facility] 132 [facility] [place] [address] Bettye Herrmann, DPM [address] [place] [address] [place] [address] 07/08/2023 10:00 AM EDT [facility] 132 [facility] [place] [address] 07/13/2023 11:00 AM EDT Office Visit Radiation Oncology, [address] [place] [address] Shawna Johnson MD [address] [place] [address] [place] [address] 07/19/2023 11:40 AM EDT Office Visit Family Practice [facility] [address] [place] [address] John Newby MD [address] [place] [address] Scheduled Procedures Name Priority Associated Diagnoses Date/Ti me COLONOSCOPY FLEXIBLE PROXIMA L DIAGNOSTIC Recall History of colonic polyps Health Maintenance Due Date Last Done Comments Hepatitis B (1 of 3 - Risk 3-dose series) 2003 Depression Screening 05/31/2020 05/31/2019 COVID-19 Vaccine ( season) 2022 02/10/2022, 07/13/2020, 06/17/2020 Diabetic Eye Exam 04/09/2023 04/09/2022, , 03/30/2020, Additional history exists DISCUSS TOBACCO CESSATION (REFER TO SMARTSET #8163) 05/01/2023 05/01/2022, 02/13/2022 CKD PHOS USE SMARTSET 14913 06/05/202305/20, 06/03/2021, 06/04/2020, Additional history exists GFR 06/17/2023 12/17/2022, 05/20, 12/02/2021, Additional history exists HbA1c 07/16/2023 01/15/2023, 05/20, 12/02/2021, Additional history exists Diabetic Foot Exam 09/10/2023 09/09/2022, 1 , 11/12/2017, Additional history exists DTaP,Tdap,and Td Vaccines (2 - Td or Tdap) 01/06/2024 01/05/2014 O2 ASSESSMENT COMPLETED IN PAST YEAR FOR COPD 01/15/2024 01/14/2023 CKD HGB USE SMARTSET 86417 01/19/202401/18, 01/15/2023, 01/08/2023, Additional history exists Albumin/Creatinine [...] this encounter Medical Devices Implanted Type Area Faceter Device Identifier Shelf Expiration Date Model / Serial / Lot Lens Intraoc 24.0 - [id number] - [id number] Implanted:Qty: 1 on 06/01/2017 by Nikhil Bolton MD at OR [facility] Left: Eye [employer]OM[employer] 07/17/2021 [id number] / [id number] / [id number] Lens Intraoc 24.0 - [id number] - [id number] Implanted:Qty: 1 on 06/08/2017 by Nikhil Bolton MD at OR [facility] Right: Eye [employer]OMB 07/17/2021 [id number] / [id number] / [id number] documented as of this encounter Results * ALBUMIN / CREATININE RATIO, URINE (01/15/2023 11:32 AM EDT) Albumin, Random Urine <1.20 mg/dL 01/15/2023 11:47 PM EDT [facility] Creatinine, Random Urine 35 mg/dL 01/15/2023 11:47 PM EDT [facility] Albumin / Creatinine Ratio, Urine Uninterpretable Albumin/Creatinine ratio due to very low albumin and creatinine values. <30 mg/g Creat 01/15/2023 11:47 PM EDT [facility] Urine Urine specimen obtained by clean catch procedure / Unknown Non-blood Collection / Unknown 01/15/2023 11:32 AM EDT 01/15/2023 11:32 AM EDT Narrative [facility] [place] 01/15/2023 11:47 PM EDT Normal: <30 mg/g creatinine High: 30-300 mg/g creatinine Very High: >300 mg/g creatinine Nephrotic: >2200 mg/g creatinine Willie Mcdowell [facility] URINE ORDERABL ES [facility] [address] [facility] [place] [address] documented in this encounter Visit Diagnoses Diagnosis HTN, goal below 140/90- Primary Unspecified essential hypertension CVA, old, ataxia Ataxia, late effect of cerebrovascular disease documented in this encounter Advance Directives Documents on File Type Date Recorded Patient Printer Slotter Operator Expl anation Advance Directives and Yu fine Will 11/20/2005 ADVANCE DIRECTIVE Latest Code Status [...] and were consensually agreed upon. Care Teams Return Agent Airport Relationship Specialty Start Date End Date John Newby MD 132 [facility] [place] [address] PCP - General Family Medicine 09/13/20 documented as of this encounter
--- OUTSIDE RECORDS SUMMARY | 2023-04-15 00:15 | External Medical Summary | Summary of Care ---
Author Name Unknown Organization [facility] Address [address] [place] [address] Phone [phone] Care Team Providers Care Mountain Services Manager Name Role Phone Johnnie Newby MD Primary Care Provider [phone] Reason for Visit * Reason Comments NEW PATIENT Rafi knee pain, left worse. Pt here to discuss surgery. Had left knee injection on 01/18/[address] Wilkins which helped some. * Evaluate & Treat - Unlimited Visits (Within 10 days (routine)) - Authorized Specialty Diagnoses / Procedures Referred By Treva judd Referred To Contact Orthopaedic Surgery / Orthopedics Diagnoses Primary osteoarthritis of left knee Zander Wilkins, DO [address] [place] [address] Referral ID Status Reason Start Date Expiration Date Visits Requested Visits Authorized [id number] Authorized Specialty Services Required 01/18/2023 [id number] Encounter Details Date Type Department Care Team (Late st Contact Info) Description 02/15/2023 9:30 AM EDT Office Visit Orthopaedics, [facility] [address] [place] [address] Abe Prater MD [address] [place] [id number] Primary osteoarthritis of left knee*; Primary osteoarthritis of right knee; Primary osteoarthritis of left hip Allergies Active Allergy Reactions Criticality Noted Date Comments Acetaminophen 05/06/2005 headaches documented as of this encounter (statuses as of 02/15/2023) Medications Medication Sig Dispensed Refills Start Date [...] goal of less than 7.0% ([facility]) TEST ONCE DAILY 100 Strip 5 03/02/2018 [...] 24 Hour (Imdur)Indications:C oronary artery disease involving flandreau coronary artery without angina pectoris TAKE ONE [...] 270 Capsule 0 07/08/2022 4 Active Tiotropium [place] Monohydrate 18 MCG Inhalation Capsule (Spiriva) INHALE ONE CAPSULE VIA HANDIHALER EVERY MORNING. DO NOT SWALLOW CAPSULE. 90 Capsule 3 06/26/2022 4 Active Fluticasone-Salmeter ol 230-21 MCG/ACT Inhalation Aerosol (Advair)Indications: COPD, group B, by GOLD 2017 classification ([facility]) INHALE TWO PUFFS BY MOUTH EVERY MORNING AND INHALE TWO PUFFS BY MOUTH AT BEDTIME, RINSE MOUTH AFTER USE 36 g 3 04/17/2022 3 Active Roflumilast 500 MCG Oral Tablet (Daliresp)Indication s:COPD, group D, by GOLD 2017 classification ([facility]) TAKE ONE TABLET BY MOUTH EVERY MORNING [...] (supraventricular tachycardia),NSVT (nonsustained ventricular tachycardia) ([facility]) TAKE ONE TABLET BY MOUTH EVERY DAY [...] as of this encounter (statuses as of 02/15/2023) Active Problems Problem Noted Date Diagnosed Date [...] Dyslipidemia 02/07/2019 Peripheral arterial disease 12/28/2018 Old AL (myocardial infarction) 01/03/2018 YISSEL treated with BiPAP [...] tis 01/05/2014 Coronary artery disease invo lving flandreau coronary artery of flandreau heart without angina pectoris 11/27/2013 Tobacco abuse 11/27/2013 HTN, goal below 130/80 03/06/2009 Overview: Modified per HTN protocol #16. documented as of this encounter (statuses as of 02/15/2023) Resolved Problems Problem Noted Date Diagnosed Date [...] as of this encounter (statuses as of 02/15/2023) Immunizations Name Administration Dates Next Due COVID-19 [...] Sign Reading Time Taken Comments Blood Pressure - - Pulse - - Temperature - - Respiratory Rate - - Oxygen Saturation - - Inhaled Oxygen Concentration - - Weight 89.9 kg (198 lb 1.6 oz) 02/15/2023 9:44 A M EDT Height 172.7 cm (5' 8") 02/15/2023 9:44 AM EDT Body Mass Index 30.12 02/15/2023 9:44 AM EDT documented in this encounter Progress Notes * Abe Prater MD - 02/15/2023 1:28 PM EDT Patient Name: Walter Don CC: NEW PATIENT (Rafi knee pain, left worse. Pt here to discuss surgery. Had left knee injection on 01/18/[address] Wilkins which helped some. ) HPI: Walter Don is a pleasant 77 year old male comes in for evaluation of Bilateral knee pain overthe past many years for which he is to get injection. He reports worse pain on the left compared tothe right He had a recent injection into left knee joint and reported improvement of symptoms temporarily but significantly improved his symptoms. His symptoms are recurring and reported pain which is moderate to severe, dull ache in nature, get worse with walking, climbing stairs and with routine activities. Patient reports daily living activity were affected significantly due to pain and also c/o night pain which awakens them from sleep. Patient tried conservative treatment and reported no improvement of pain. He also reported bilateral hip pain for which he received injection in the past. Today he denies any pain in the groin. He is multiple medical problem including recent history of starting on Eliquis. He had strokes before as well as coronary artery disease. He has peripheral vascular disease., chronic COPD, lung cancer. Past Medical History: Diagnosis Date Anemia of [...] goal of less than 8.0% ([facility]) 10/23/2014 ICD-10 update of inactive term Past Surgical History: Procedure Laterality Date BRONCHOSCOPY, DIAGNOSTIC N/A 06/12/2020 BRONCHOSCOPY DIAGNOSTIC WITH OR WITHOUT WASHING performed by Warren Patel MD at [place] [facility] [place] COLONOSCOPY THRU STOMA, W/BIOPSY 05/28/2010 andenomatous tissue--repeat in 3 months COLONOSCOPY THRU STOMA, W/BIOPSY 09/18/2010 adenomatous-repeat colonoscopy in 3-6 months COLONOSCOPY THRU STOMA, W/BIOPSY 04/09/2011 polyps x3 , path shows adenomatous tissue repeat in 1 years COLONOSCOPY, DIAGNOSTIC (RECTUM) 05/20/2016 adenomatous polyps, poor prep, diverticulosis, repeat 3 yrs/[facility] COLONOSCOPY, DIAGNOSTIC (RECTUM) 06/06/2019 hemorrhoids/diverticulosis sigmoid and descending colon/small AVM/biopsies show adenomatous polyps/recall 6-9 months/COLONOSCOPY FLEXIBLE PROXIMAL DIAGNOSTIC performed by Clemencia Marinelli MD at[facility]COPY [facility] COLONOSCOPY, DIAGNOSTIC (RECTUM) 03/05/2022 benign adenomatous polyp, repeat 1 yr / COLONOSCOPY FLEXIBLE PROXIMAL DIAGNOSTIC performed by Clemencia Marinelli MD at ENDOSCOPY [facility] COLONOSCOPY, DIAGNOSTIC (RECTUM) 01/14/2023 hemorrhoids/diverticulosis/biopsies show hyperplastic polyps/recall 2 years/COLONOSCOPY FLEXIBLE PROXIMAL DIAGNOSTIC performed by Destiny Mojica DO at ENDOSCOPY [facility] DESTROY LUMBAR SACRAL NERVE IMAGING ADD'L 01/27/2023 DESTROY LUMBAR SACRAL NERVE IMAGING ADD'L performed by Pb Alexander DO at OR [facility] DESTROY LUMBAR SACRAL NERVE IMAGING SINGLE 01/27/2023 DESTROY LUMBAR SACRAL NERVE IMAGING SINGLE performed by Pb Alexander DO at OR [facility] EGD, FLEXIBLE, DIAGNOSTIC 01/14/2023 gsatric polyp/ESOPHAGOGASTRODUODENOSCOPY (EGD), FLEXIBLE, TRANSORAL, DIAGNOSTIC performed by Phong Mojica DO at ENDOSCOPY [facility] L-/S-SPINE PARAVERTEBRAL FACET INJ,1 LEVEL 11/25/2022 L-/S-SPINE PARAVERTEBRAL FACET INJ, 1 LEVEL performed by Pb Alexander, DO at OR [facility] L-/S-SPINE PARAVERTEBRAL FACET INJ,1 LEVEL 01/06/2023 L-/S-SPINE PARAVERTEBRAL FACET INJ, 1 LEVEL performed by Pb Alexander, DO at OR [facility] L-/S-SPINE PARAVERTEBRL FACET INJ,2 LEVELS 11/25/2022 L-/S-SPINE PARAVERTEBRAL FACET INJ, 2 LEVELS performed by Pb Alexander, DO at OR [facility] L-/S-SPINE PARAVERTEBRL FACET INJ,2 LEVELS 01/06/2023 L-/S-SPINE PARAVERTEBRAL FACET INJ, 2 LEVELS performed by [place] Zander Alexander, DO at OR [facility] MISCELLANEOUS ORDER ([facility] ONLY) 1998 henria repair OTHER (INFORMATION) pilonidal cyst removal OTHER (INFORMATION) repair of bilateral shoulder for bone spur and repair of torn muscles right shoulder REMOVE CATARACT, INSERT LENS PROSTH Left 06/01/2017 left EXTRACAPSULAR CATARACT REMOVAL WITH INTRAOCULAR LENS performed by Nikhil Bolton MD at OR [facility] REMOVE CATARACT, INSERT LENS PROSTH Right 06/08/2017 right EXTRACAPSULAR CATARACT REMOVAL WITH INTRAOCULAR LENS performed by Nikhil Bolton MD at OR [facility] Family History Problem Relation Age of Onset Cancer Mother colon Gastro-intestinal disorder Sister crohn's No Known Problems Father Heart disease Brother Heart disease Brother Social History Social History Narrative No pets. No mold. ROS- Denies any recent illness. Examination: Ht 1.727 m (5' 8") | Wt 89.9 kg (198 lb 1.6 oz) | BMI 30.12 kg/m | BSA 2.08 m The patient is oriented to person, place and time. The patient is not in acute distress. The patient is afebrile. Gait- Patient walks with limp. Left knee- neutral to Varus alignment, Minimal effusion, deep tenderness present over medial, lateral and patellofemoral joint line, good stability of knee joint, ROM- 10-100. Grossly intact neurovascular status. Examination of the hips demonstrates - ROM restricted but without pain. Radiographic evaluation- I reviewed radiographs independently that was ordered by another provider.Radiographs demonstrated severe arthritis of Left knee joint, with loss of joint space, osteophytes, subchondral cystic and sclerotic changes. Radiograph of the hip reviewed that was done in May 2022 and ordered by another provider showsmild to moderate arthritic changes. Diagnosis- Osteoarthritis of Left knee with failed conservative treatment Which is more symptomatic. Arthritic changes of bilateral hip more on left compared to right. Plan- Discussed all finding in detail including radiographic and clinical findings. I had a long discussion with the patient regarding arthritis and treatment options. We had long discussion about non-operative management, which includes the use of appropriate exercises, activity modification, physical therapy treatment, weight reduction and maintenance, appropriate medication use, use of assistive devices, role of injection and avoidance of high impact activities. I discussed that his symptoms her at present coming mainly from the left knee which he responded well to injection. He also has arthritic changes on the hip joint. Discussed that his symptoms may be contributing from hip arthritis and he may not completely benefit from total knee arthroplasty. At present he would like to proceed with left total knee replacement after discussing all the treatment options. And he understood that he will need total hip replacement in the future if he gets symptomsfollowing knee replacement. Is very high risk considering medical problem and recommended him to consider evaluation from PCP regarding medical clearance. He is on blood thinner medication and discussed about cutting down Eliquis postoperatively considering high risk of bleeding with aspirin and Eliquis. He will get evaluation from PCP. If patient is high risk then we may consider referral patient to [facility] it will be depend on evaluation by PCP. He is going to follow-up with PCP. We had a detailed discussion about left total knee arthroplasty- The patient has severe disease and has exhausted all reasonable non-operative treatment options. The patient has suffered a significant degradation in quality of life. Total joint arthroplasty can improve this patient's pain and function, thereby restoring their quality of life. However, while I believe that the benefits greatly outweigh the risks in this case, the patient understands that there is no guarantee of a satisfactory outcome following surgery. The patient understands that total joint arthroplasty is an elective procedure. We reviewed the elective quality of life nature of the procedure and the details of surgery, approach and the implant used, using the model and illustration int clinic. We also had a long discussion about the risks of surgery. The risks can be broadly categorized intotwo groups. The first category includes risks that could occur with any surgical procedure. These are complications that might occur with any medical specialty, not just with orthopaedic surgery. Risks include, but are not limited to heart attack, stroke, bowel obstruction, blood clot, pulmonary embolism, wound infections, transfusion reactions, drug allergies, and complications relating to anesthesia. This list is certainly not intended to be complete, but only to convey a broad range of general medical risks that the patient must take into consideration. The second category includes risks that are more specifically related to a total joint arthroplasty. Again, this list is certainly not complete, but is intended to make the patient aware of the kindsof complications that can occur with major orthopaedic surgery. These risks include, but are not limited to: implant dislocation, fracture of the supporting bone, injury to a nerve or blood vessel, injury of a tendon or ligament, post-operative pain, stiffness or instability of the joint, limb length inequality, loosening of the implant, mechanical failure of the implant, and infection of the implant. Discussed in detail about very high risk of for blood clot (DVT) and pulmonary embolism after jointsurgery and cab ne life threatening. More commonly, blood clots lead to pain and swelling in the limb. A piece of the clot can sometimes break off and travel to the brain or lungs. This can cause either a stroke or a pulmonary embolism. Medications for several weeks following total joint arthroplasty can help minimize but not fully eliminate these complications. Discussed about various medications available and approved for prophylaxis for blood clot. Stronger blood thinner like eliquis, xeralto or heparin causes high risk of bleeding, hematoma, infection and need for multiple surgeries verses ASA decreases above risk but can cause some risk of blood clot. Nerve damage may result as a consequence of surgery. Nerve injury can result in weakness, numbness,and paralysis. The damage may be temporary or permanent, the recovery process can be long, and further surgery may be required. May required brace for foot drop and for ambulation. Periprosthetic joint infection is another risk associated with Total joint replacement and may needmultiple surgeries and termite treater helper antibiotics. Complications may lead to an un-repairable or life-threatening situation. Permanent removal of the implant or amputation of the limb may be required as th e only reasonable treatment options. Additionally, while extremely rare, patients have from complications associated with total joint arthroplasty. The patient must appreciate the risk of unforeseen complications, as well as a small but unavoidable risk of . Damage to a tendon or ligament may cause functional impairment and may require additional surgery to repair or reconstruction the injury. Implant dislocations and instability may require further surgery to stabilize the joint. Implant stiffness may require manipulation or further surgery to improvethe range of motion. Patient understood all discussion and agreed to proceed for surgery. I spent a total of Greater than 55 mins (exact time 60 mins) on the date of service in preparation,delivery, and documentation of the care provided to Walter Don excluding any time spent in the performance of separately billed services. This chart was completed in part utilizing [employer] Voice Recognition Software. Grammatical errors, random word insertions, prounoun errors and incomplete sentences are an occasional consequence of this system due to software limitations, ambient noise, and hardware issues. Any formal questions or concerns about the content, text, or information contained within the body of this dictation should be directly addressed to the provider for clarification. documented in this encounter Nursing Notes * Jacqueline Johnson LPN - 02/15/2023 9:45 AM EDT Chief Complaint Patient presents with NEW PATIENT Rafi knee pain, left worse. Pt here to discuss surgery. Had left knee injection on 01/18/[address] Wilkins which helped some. documented in this encounter Plan of Treatment Upcoming Encounters Date Type Department Care Team (Late st Contact Info) Description 02/26/2023 3:40 PM EST Office Visit Podiatry [facility] [address] [facility] [place] [address] Bettye Herrmann DPM [address] [place] [address] [place] [address] 03/10/2023 10:30 AM EST Office [facility], [facility] [place] [address] Deisy Aguirre CRNP [address] [facility] [place] [address] 03/16/2023 10:00 AM EST Telemedicine Interventional [facility] Center, [facility] [address] [facility] [place] [address] Pb Alexander, DO [address] [place] [address] 04/26/2023 11:30 AM EST Office Visit Orthopaedics [facility] [address] [facility] [place] [address] Zander Wilkins S, DO [address] [place] [address] 05/05/2023 11:30 AM EST Office Visit Gastroenterology, [facility] [address] [facility] [place] [address] Agnes Bowers CRNP [address] [facility] [place] [address] 07/08/2023 10:00 AM EDT Imaging Radiology [facility] [facility] [address] [facility] [place] [address] 07/13/2023 11:00 AM EDT Office Visit Radiation Oncology, [address] [place] [address] Shawna Johnson MD [address] [place] [address] [place] [address] 07/19/2023 11:40 AM EDT Office Visit Family Practice [facility] [address] [facility] [place] [address] Johnnie Newby MD [address] [place] [address] Scheduled Procedures Name Priority Associated Diagnoses Date/Ti me COLONOSCOPY FLEXIBLE PROXIMA L DIAGNOSTIC Recall History of colonic polyps Scheduled Referrals Name Type Priority Associated Diagnoses Orde r Schedule ORTHOPAEDICS REFERRAL OP Referral Within 10 days (routine) Primary osteoarthritis of left knee Ordered: 01/18/2023 Health Maintenance Due Date Last Done Comments Hepatitis B (1 of 3 - Risk 3-dose series) 2003 Depression Screening 05/31/2020 05/31/2019 COVID-19 Vaccine ( season) 2022 02/10/2022, 07/13/2020, 06/17/2020 Diabetic Eye Exam 04/09/2023 04/09/2022, , 03/30/2020, Additional history exists DISCUSS TOBACCO CESSATION (REFER TO SMARTSET #3291) 05/01/2023 05/01/2022, 02/13/2022 CKD PHOS USE SMARTSET 81956 06/05/202305/20, 06/03/2021, 06/04/2020, Additional history exists GFR 06/17/2023 12/17/2022, 05/20, 12/02/2021, Additional history exists HbA1c 07/16/2023 01/15/2023, 05/20, 12/02/2021, Additional history exists Diabetic Foot Exam 09/10/2023 09/09/2022, 1 , 11/12/2017, Additional history exists DTaP,Tdap,and Td Vaccines (2 - Td or Tdap) 01/06/2024 01/05/2014 O2 ASSESSMENT COMPLETED IN PAST YEAR FOR COPD 01/15/2024 01/14/2023 CKD HGB USE SMARTSET 86046 01/19/202401/18, 01/15/2023, 01/08/2023, Additional history exists Albumin/Creatinine [...] this encounter Medical Devices Implanted Type Area Children'S Nursery Assistant Device Identifier Shelf Expiration Date Model / Serial / Lot Lens Intraoc 24.0 - [id number] - [id number] Implanted:Qty: 1 on 06/01/2017 by Nikhil Bolton MD at OR [facility] Left: Eye [employer] 07/17/2021 [id number] / [id number] / [id number] Lens Intraoc 24.0 - [id number] - [id number] Implanted:Qty: 1 on 06/08/2017 by Nikhil Bolton MD at OR [facility] Right: Eye [employer] 07/17/2021 [id number] / [id number] / [id number] documented as of this encounter Visit Diagnoses Diagnosis Primary osteoarthritis of left knee- Primary Primary localized osteoarthrosis, lower leg Primary osteoarthritis of right knee Primary localized osteoarthrosis, lower leg Primary osteoarthritis of left hip Primary localized osteoarthrosis, pelvic region and thigh documented in this encounter Advance Directives Documents on File Type Date 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 Care Teams Mountain Services Manager Relationship Specialty Start Date End Date Johnnie Newby MD [address] [place] [address] PCP - General Family Medicine 09/13/20 documented as of this encounter
--- OUTSIDE RECORDS SUMMARY | 2023-04-15 00:15 | External Medical Summary ---
Author Name Unknown Address Unknown Organization [id number] [place] [address] Laboratory Report Ordering Provider Test Date Status ALONZO DELUNA 03/10/2023 11:38:01 Final Observation Date Value Abnormality Reference (Units ) Status WBC, Total 03/10/2023 11:38:01 6.41 4.00-10.8 0 (K/uL) Final RBC 03/10/2023 11:38:01 3.28 4.50-5.25 (M/uL) Final Hemoglobin 03/10/2023 11:38:01 8.6 Below low normal 14 .0-16.8 (g/dL) Final HCT 03/10/2023 11:38:01 28.8 Below low normal 40. 0-48.4 (%) Final MCV 03/10/2023 11:38:01 87.8 82.0-99.5 (fL) Final MCH 03/10/2023 11:38:01 26.2 27.0-34.0 (pg) Final MCHC 03/10/2023 11:38:01 29.9 32.0-36.0 (g/dL) Final RDW 03/10/2023 11:38:01 18.6 11.5-15.5 (%) Final Platelets 03/10/2023 11:38:01 248 140-400 (K /uL) Final MPV 03/10/2023 11:38:01 9.2 6.6-11.1 ( fL) Final Performing Location [facility] [address] [place] [address]
--- OUTSIDE RECORDS SUMMARY | 2023-04-15 00:15 | External Medical Summary | Summary of Care ---
Author Name Unknown Organization [facility] Address [address] [place] [address] Phone [phone] Care Team Providers Care Vp & General Counsel Name Role Phone Johnnie Newby MD Primary Care Provider [phone] Encounter Details Date Type Department Care Team [...] hemoglobin A1c goal of less than 7.0% ([facility]) TEST ONCE DAILY 100 Strip 5 03/02/2018 Active Ventolin HFA 108 (90 Base) MCG/ACT Inhalation Aerosol SolutionIndications: COPD, moderate ([facility]) Take 2 Puffs by mouth [...] 24 Hour (Imdur)Indications:C oronary artery disease involving [place] coronary artery without angina pectoris TAKE ONE [...] 270 Capsule 0 07/08/2022 4 Active Tiotropium [place] Monohydrate 18 MCG Inhalation Capsule (Spiriva) INHALE ONE CAPSULE VIA HANDIHALER EVERY MORNING. DO NOT SWALLOW CAPSULE. 90 Capsule 3 06/26/2022 4 Active Fluticasone-Salmeter ol 230-21 MCG/ACT Inhalation Aerosol (Advair)Indications: COPD, group B, by GOLD 2017 classification ([facility]) INHALE TWO PUFFS BY MOUTH EVERY MORNING AND INHALE TWO PUFFS BY MOUTH AT BEDTIME, RINSE MOUTH AFTER USE 36 g 3 04/17/2022 3 Active Roflumilast 500 MCG Oral Tablet (Daliresp)Indication s:COPD, group D, by GOLD 2017 classification ([facility]) TAKE ONE TABLET BY [...] Dyslipidemia 02/07/2019 Peripheral arterial disease 12/28/2018 Old [place] (myocardial infarction) 01/03/2018 YISSEL treated with BiPAP [...] tis 01/05/2014 Coronary artery disease invo lving [place] coronary artery of [place] heart without angina pectoris 11/27/2013 Tobacco abuse [...] 02/26/2023 3:40 PM EST Office Visit Podiatry [facility] [address] [facility] [place] [address] Bettye Herrmann, DPLiat [address] [place] [address] [place] [address] 03/10/2023 10:30 AM EST Office Visit Cardiology, [facility] [place] [address] Deisy Aguirre CRNP [address] [place] [address] 03/16/2023 10:00 AM EST Telemedicine Interventional Pain Center, [facility] [place] [address] Pb Alexander, [address] [address] 04/26/2023 11:30 AM EST Office Visit Orthopaedics [facility] [place] [address] Zander Wilkins S, DO [address] [place] [address] 05/05/2023 11:30 AM EST Office Visit Gastroenterology, [facility] [address] [place] [address] Agnes Bowers CRNP [address] [place] [address] 07/08/2023 10:00 AM EDT Imaging Radiology [address] [place] [address] 07/13/2023 11:00 AM EDT Office Visit Radiation Oncology, [address] [place] [address] Shawna Johnson MD [address] [place] [address] [place] [address] 07/19/2023 11:40 AM EDT Office Visit Family Practice [facility] [address] [place] [address] Johnnie Newby MD 132 [facility] [place] [address] Scheduled Procedures Name Priority Associated Diagnoses Date/Ti [...] 05/01/2023 05/01/2022, 02/13/2022 CKD PHOS USE SMARTSET 06225 06/05/202305/20, 06/03/2021, 06/04/2020, Additional history exists GFR 06/17/2023 12/17/2022, 05/20, 12/02/2021, Additional history exists HbA1c 07/16/2023 01/15/2023, 05/20, 12/02/2021, Additional history exists Diabetic Foot Exam 09/10/2023 09/09/2022, 1 , 11/12/2017, Additional history exists DTaP,Tdap,and Td Vaccines (2 - Td or Tdap) 01/06/2024 01/05/2014 O2 ASSESSMENT COMPLETED IN PAST YEAR FOR COPD 01/15/2024 01/14/2023 CKD HGB USE SMARTSET 65889 01/19/202401/18, 01/15/2023, 01/08/2023, Additional history exists Albumin/Creatinine [...] this encounter Medical Devices Implanted Type Area Engineering Mathematician Device Identifier Shelf Expiration Date Model / Serial / Lot Lens Intraoc 24.0 - [id number] - [id number] Implanted:Qty: 1 on 06/01/2017 by Nikhil Bolton MD at OR [facility] Left: Eye BAUSCH [employer] LOMB 07/17/2021 [id number] / [id number] / [id number] Lens Intraoc 24.0 - [id number] - [id number] Implanted:Qty: 1 on 06/08/2017 by Nikhil Bolton MD at OR [facility] Right: Eye BAUSCH & LOMB 07/17/2021 [id number] / [id number] / [id number] documented as of this encounter Advance Directives Documents on File Type Date Recorded Patient Graphic Editor Expl 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 Care Teams Vp & General Counsel Relationship Specialty Start Date End Date Johnine Newby MD 132 [facility] [place] [address] PCP - General Family Medicine 09/13/20 documented as of this encounter
--- OUTSIDE RECORDS SUMMARY | 2023-04-15 00:15 | External Medical Summary | Summary of Care ---
Author Name Unknown Organization [facility] Address [address] [place] [address] Phone [phone] Care Team Providers Care Chief Passenger Ship Steward/Stewardess Name Role Phone Johnnie Newby MD Primary Care Provider [phone] Encounter Details Date Type Department Care Team [...] 24 Hour (Imdur)Indications:C oronary artery disease involving [place] coronary artery without angina pectoris TAKE ONE [...] 270 Capsule 0 07/08/2022 4 Active Tiotropium [place] Monohydrate 18 MCG Inhalation Capsule (Spiriva) INHALE [...] Dyslipidemia 02/07/2019 Peripheral arterial disease 12/28/2018 Old [place] (myocardial infarction) 01/03/2018 YISSEL treated with BiPAP [...] tis 01/05/2014 Coronary artery disease invo lving [place] coronary artery of [place] heart without angina pectoris 11/27/2013 Tobacco abuse [...] 02/26/2023 3:40 PM EST Office Visit Podiatry [facility] 132 [facility] [place] [address] Bettye Herrmann, DPLiat [address] [place] [address] [place] [address] 03/10/2023 10:30 AM EST Office Visit Cardiology, [facility] [place] [address] Deisy Aguirre CRNP [address] [place] [address] 03/16/2023 10:00 AM EST Telemedicine Interventional Pain Center, [facility] [place] [address] Pb Alexander, [address] [address] 04/26/2023 11:30 AM EST Office Visit Orthopaedics [facility] [place] [address] Zander Wilkins S, DO [address] [place] [address] 05/05/2023 11:30 AM EST Office Visit Gastroenterology, [facility] [address] [place] [address] Agnes Bowers CRNP [address] [place] [address] 07/08/2023 10:00 AM EDT Imaging Radiology [address] [place] [address] 07/13/2023 11:00 AM EDT Office Visit Radiation Oncology, [address] [place] [address] Shawna Johnson MD [address] [place] [address] [place] [address] 07/19/2023 11:40 AM EDT Office Visit Family Practice [facility] [address] [place] [address] Johnnie Newby MD 132 [facility] [place] [address] Scheduled Procedures Name Priority Associated Diagnoses Date/Ti [...] 05/01/2023 05/01/2022, 02/13/2022 CKD PHOS USE SMARTSET 48437 06/05/202305/20, 06/03/2021, 06/04/2020, Additional history exists GFR 06/17/2023 12/17/2022, 05/20, 12/02/2021, Additional history exists HbA1c 07/16/2023 01/15/2023, 05/20, 12/02/2021, Additional history exists Diabetic Foot Exam 09/10/2023 09/09/2022, 1 , 11/12/2017, Additional history exists DTaP,Tdap,and Td Vaccines (2 - Td or Tdap) 01/06/2024 01/05/2014 O2 ASSESSMENT COMPLETED IN PAST YEAR FOR COPD 01/15/2024 01/14/2023 CKD HGB USE SMARTSET 37320 01/19/202401/18, 01/15/2023, 01/08/2023, Additional history exists Albumin/Creatinine [...] this encounter Medical Devices Implanted Type Area Monitoring Engineer Device Identifier Shelf Expiration Date Model / Serial / Lot Lens Intraoc 24.0 - [id number] - [id number] Implanted:Qty: 1 on 06/01/2017 by Nikhil Bolton MD at OR [facility] Left: Eye BAUSCH [employer] LOMB 07/17/2021 [id number] / [id number] / [id number] Lens Intraoc 24.0 - [id number] - [id number] Implanted:Qty: 1 on 06/08/2017 by Nikhil Bolton MD at OR [facility] Right: Eye BAUSCH [employer] LOMB 07/17/2021 [id number] / [id number] / [id number] documented as of this encounter Advance Directives Documents on File Type Date Recorded Patient Vegetable I Farmworker Expl 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 Care Teams Chief Passenger Ship Steward/Stewardess Relationship Specialty Start Date End Date Johnnie Newby MD 132 [facility] [place] [address] PCP - General Family Medicine 09/13/20 documented as of this encounter
--- OUTSIDE RECORDS SUMMARY | 2023-04-15 00:15 | External Medical Summary | Summary of Care ---
Author Name Unknown Organization [facility] Address [address] [place] [address] Phone [phone] Care Team Providers Care Road Commissioner Name Role Phone Johnnie Newby MD Primary Care Provider [phone] Reason for Visit * Reason Onset Date Comments Appointment 03/10/2023 Encounter Details Date Type Department Care Team (Late st Contact Info) Description 03/10/2023 Telephone Cardiology, [facility] [address] [place] [address] Deisy [facility]irre CRNP [facility] [address] Appointment Allergies Active Allergy Reactions Criticality Noted Date [...] hemoglobin A1c goal of less than 7.0% ([facility]) TEST ONCE DAILY 100 Strip 5 [...] 24 Hour (Imdur)Indications:C oronary artery disease involving [place] coronary artery without angina pectoris TAKE ONE [...] 270 Capsule 0 07/08/2022 4 Active Tiotropium [place] Monohydrate 18 MCG Inhalation Capsule (Spiriva) INHALE [...] s:COPD, group D, by GOLD 2017 classification ([facility]) TAKE ONE TABLET BY MOUTH EVERY [...] (toPROL XL)Indications:SVT (supraventricular tachycardia),NSVT (nonsustained ventricular tachycardia) ([facility]) TAKE ONE TABLET BY MOUTH EVERY [...] Dyslipidemia 02/07/2019 Peripheral arterial disease 12/28/2018 Old [place] (myocardial infarction) 01/03/2018 YISSEL treated with BiPAP [...] tis 01/05/2014 Coronary artery disease invo lving [place] coronary artery of [place] heart without angina pectoris 11/27/2013 Tobacco abuse [...] mRNA, LNP-s, No Pre serve, 2-Dose Series (Cvent) 02/25/2023,02/10/2022,07/13/2020,06/17 Pneumococcal Conjugate Vacc, 13 Valent (Prevnar) [...] encounter Miscellaneous Notes * Telephone Encounter - Jazz Helton OSA - 03/10/2023 11:26 AM EST Nuc stress test needed in March per Deisy Aguirre. documented in this encounter Plan of Treatment Upcoming Encounters Date Type Department Care Team (Late st Contact Info) Description 03/16/2023 10:00 AM EST Telemedicine Interventional Pain Center, [facility] [address] [place] [address] Pb Alexander, DO [address] [place] [address] 04/26/2023 11:30 AM EST Office Visit Orthopaedics [facility] [address] [place] [address] Zander Wilkins, DO [address] [place] [address] 05/05/2023 11:30 AM EST Office Visit Gastroenterology, [facility] [address] [place] [address] Agnes Bowers CRNP [address] [place] [address] 05/31/2023 11:40 AM EST Office Visit Podiatry [facility] 132 [facility] [place] [address] Bettye Herrmann, SAMM [address] [facility] [place] [address] 07/08/2023 10:00 AM EDT Imaging Radiology [address] [place] [address] 07/13/2023 11:00 AM EDT Office Visit Radiation Oncology, [place] [address] [facility] [place] [address] Shawna Johnson MD [facility] [place] [address] 07/19/2023 11:40 AM EDT Office Visit Family Practice [facility] [address] [place] [address] Johnnie Newby MD 132 [facility] [place] [address] 09/16/2023 9:00 AM EDT Office Visit Cardiology, [facility] 132 [facility] [place] [address] Deisy Aguirre CRNP [address] [place] [address] Scheduled Procedures Name Priority Associated Diagnoses Date/Ti [...] 05/01/2023 05/01/2022, 02/13/2022 CKD PHOS USE SMARTSET 83494 06/05/202305/20, 06/03/2021, 06/04/2020, Additional history exists GFR 06/17/2023 12/17/2022, 05/20, 12/02/2021, Additional history exists HbA1c 07/16/2023 01/15/2023, 05/20, 12/02/2021, Additional history exists Diabetic Foot Exam 09/10/2023 09/09/2022, 1 , 11/12/2017, Additional history exists DTaP,Tdap,and Td Vaccines (2 - Td or Tdap) 01/06/2024 01/05/2014 O2 ASSESSMENT COMPLETED IN PAST YEAR FOR COPD 01/15/2024 01/14/2023 CKD HGB USE SMARTSET 00097 01/19/202401/18, 01/15/2023, 01/08/2023, Additional history exists Albumin/Creatinine [...] this encounter Medical Devices Implanted Type Area Cnc Mill And Lathe Operator Device Identifier Shelf Expiration Date Model / Serial / Lot Lens Intraoc 24.0 - [id number] - [id number] Implanted:Qty: 1 on 06/01/2017 by Nikhil Bolton MD at OR [facility] Left: Eye BAUSCH & LOMB 07/17/2021 [id number] / [id number] / [id number] Lens Intraoc 24.0 - [id number] - [id number] Implanted:Qty: 1 on 06/08/2017 by Nikhil Bolton MD at OR [facility] Right: Eye BAUSCH & LOMB 07/17/2021 [id number] / [id number] / [id number] documented as of this encounter Advance Directives Documents on File Type Date Recorded Patient Engineer First Assistant Expl anation Advance Directives and Yu g Will 11/20/2005 ADVANCE DIRECTIVE Latest Code [...] and were consensually agreed upon. Care Teams Road Commissioner Relationship Specialty Start Date End Date Johnnie Newby MD [address] [place] [address] PCP - General Family Medicine 09/13/20 documented as of this encounter
--- OUTSIDE RECORDS SUMMARY | 2023-04-15 00:15 | External Medical Summary | Summary of Care ---
Author Name Unknown Organization [facility] Address [address] [place] [address] Phone [phone] Care Team Providers Care Singing Telegram Performer Name Role Phone Johnnie Newby MD Primary Care Provider [phone] Reason for Visit * Reason Comments Diabetic Foot Care Encounter Details Date Type Department Care Team (Late st Contact Info) Description 02/26/2023 3:40 PM EST Office Visit Podiatry [facility] [address] [facility] [place] [address] Bettye Herrmann, DPM [address] [place] [address] Type 2 diabetes mellitus with diabetic neuropathy, without long-term current use of insulin ([facility])*; Pain in both feet; Onychomycosis; Pre-ulcerative calluses Allergies Active Allergy Reactions Criticality Noted Date Comments Acetaminophen 05/06/2005 headaches documented as of this encounter (statuses as of 02/26/2023) Medications Medication Sig Dispensed Refills Start Date [...] hemoglobin A1c goal of less than 7.0% ([facility]) TEST ONCE DAILY 100 Strip 5 03/02/2018 Active Ventolin HFA 108 (90 Base) MCG/ACT Inhalation Aerosol SolutionIndications: COPD, moderate ([facility]) Take 2 Puffs by mouth 4 [...] 24 Hour (Imdur)Indications:C oronary artery disease involving [place] coronary artery without angina pectoris TAKE ONE [...] 270 Capsule 0 07/08/2022 4 Active Tiotropium [place] Monohydrate 18 MCG Inhalation Capsule (Spiriva) INHALE ONE CAPSULE VIA HANDIHALER EVERY MORNING. DO NOT SWALLOW CAPSULE. 90 Capsule 3 06/26/2022 4 Active Fluticasone-Salmeter ol 230-21 MCG/ACT Inhalation Aerosol (Advair)Indications: COPD, group B, by GOLD 2017 classification ([facility]) INHALE TWO PUFFS BY MOUTH EVERY MORNING AND INHALE TWO PUFFS BY MOUTH AT BEDTIME, RINSE MOUTH AFTER USE 36 g 3 04/17/2022 4 Active Roflumilast 500 MCG Oral Tablet (Daliresp)Indication s:COPD, group D, by GOLD 2017 classification ([facility]) TAKE ONE TABLET BY MOUTH EVERY [...] (toPROL XL)Indications:SVT (supraventricular tachycardia),NSVT (nonsustained ventricular tachycardia) ([facility]) TAKE ONE TABLET BY MOUTH EVERY [...] as of this encounter (statuses as of 02/26/2023) Active Problems Problem Noted Date Diagnosed Date [...] tis 01/05/2014 Coronary artery disease invo lving [place] coronary artery of [place] heart without angina pectoris 11/27/2013 Tobacco abuse 11/27/2013 HTN, goal below 130/80 03/06/2009 Overview: Modified per HTN protocol #16. documented as of this encounter (statuses as of 02/26/2023) Resolved Problems Problem Noted Date Diagnosed Date [...] as of this encounter (statuses as of 02/26/2023) Immunizations Name Administration Dates Next Due COVID-19 mRNA, LNP-s, No Pre serve, 2-Dose Series ([employer]) 02/10/2022,07/13/2020,06/17/2020 Pneumococcal Conjugate Vacc, 13 Valent (Prevnar) [...] Progress Notes * Bettye Herrmann DPM - 02/26/2023 3:40 PM EST Podiatry Established Note [facility] Name: Walter Don : 1945 Date: 02/26/2023 REASON FOR VISIT: foot care SUBJECTIVE: This patient is a 77 year old male who presents today for diabetic foot care. He has chronic callosities to both feet which are very tender. He also has fungal nails of which he cannot reach and trim himself. He feels the plantar first toe callus left side is the cause of his severe toepain. He reports paring this himself with some relief. He does have shoes/inserts although he is not sure how old these are. He notes improvement in right foot pain following gout medications. Last PCP appt with Dr. Newby was 01/15/2023. Past Medical History: Diagnosis Date Anemia of [...] HTN, goal to be determined Lung cancer ([facility]) Obesity, Class I, BMI 30.0-34.9 (see actual BMI) 06/04/2021 Obesity, Class II, BMI 35-39.9, isolated (see actual BMI) 12/02/2021 OTHER diabetes Overweight (BMI 25.0-29.9) 09/09/2022 Sleep apnea, obstructive Type 2 diabetes mellitus with hemoglobin A1c goal of less than 8.0% ([facility]) 10/23/2014 ICD-10 update of inactive term ALLERGIES: Review of patient's allergies indicates: Allergen Reactions Tylenol [Acetaminophen] headaches REVIEW OF SYSTEMS: N/A FOCUSED PODIATRIC EXAM: Vascular: Pedal pulses palpable including dorsalis pedis and posterior tibial artery at 2/4 bilaterally. Capillary refill time is within normal limits to all toes. Non- pitting edema noted with increase to the dorsal right foot. No warmth. Absence of pedal hair growth noted. Neurologic: Sensation (light touch) intact to the bilateral lower extremities. No hypersensitivity. No weakness. Musculoskeletal: There is a rigid contracture to the left first IPJ. Pain reported with palpation of callus of this toe and to the dorsal aspect of this toe. Mild pain with palpation of toes 1-5 bilaterally at the level of the toenail/spicule. Dermatological: Skin is thin, dry. No interdigital changes. Toenails 1-5 right are elongated, thickened, and discolored. Toenails 2-5 left are elongated, thickened, and discolored. There is absence of the left firsttoenail with medial nail spicule of skin noted. Hemosiderin deposition noted to the lower legs. Hyperkeratotic skin to the medial aspect of the first and fifth metatarsal head bilaterally and plantarmedial hallux left. Q Codes: Q8 - Class B Findings: B2: Advanced trophic changes such as (three of the following): B2a:Hair growth (Decrease or absence) , B2b: Nail Changes (thickening) and B2c: Pigmentary changes ( discoloration) Q9 - Class C Findings: C3: Edema and C4: Parasthesias (abnormal spontaneous sensations in the feet) DIAGNOSTIC STUDIES: No new ASSESSMENT: 1. Type 2 diabetes mellitus with diabetic neuropathy, without long-term current use of insulin (HCC) 2. Pain in both feet 3. Onychomycosis T1 T2 T3 T4 T5 T6 T7 T8 T9 4. Pre-ulcerative calluses x 5 PLAN: Procedure: After prepping the area with alcohol and allowing to dry, the hyperkeratotic lesions to the bilateral plantar foot and first toe (5 total) were sharply pared of all hyperkeratotic skin. This was performed with a #15 blade. An electrical umbrella bur was used to reduce any remaining edges. Pin pointbleeding was noted to the left first toe. I applied bacitracin and dry bandage. Procedure: After mild cleansing and drying of feet, toenails 1-5 right and 2-5 left were manually and mechanically debrided. A nail splitter was used to remove all incurvating edges. A band cutter was used to trim nail to appropriate length. An electrical bur was used in a side to side motion to reduce nail thickness, hypertrophic growth, and to smooth all edges. Patient tolerated well. I cut an offloading hole in his left foot insert. He may change this based on feel when he wears it. I also provided new Rx for diabetic shoes and inserts with consideration of the left first toe callus included. Follow up: 3 months foot care documented in this encounter Nursing Notes * Denise Parikh LPN - 02/26/2023 3:15 PM EST Pt presents for routine diabetic nail care, states foot pain is 1/10 with sitting. Did not test BSGthis morning. documented in this encounter Plan of Treatment Upcoming Encounters Date Type Department Care Team (Late st Contact Info) Description 03/10/2023 10:30 AM EST Office Visit Cardiology, [facility] [address] [facility] [place] [address] Deisy Aguirre CRNP [address] [place] [address] 03/16/2023 10:00 AM EST Telemedicine Interventional Pain Center, [facility] [address] [facility] [place] [address] Pb Alexander, [address] [place] [address] 04/26/2023 11:30 AM EST Office Visit Orthopaedics [facility] [address] [facility] [place] [address] Zander Wilkins S, DO [address] [place] [address] 05/05/2023 11:30 AM EST Office Visit Gastroenterology, [facility] [address] [facility] [place] [address] Agnes Bowers CRNP [address] [place] [address] 05/31/2023 11:40 AM EST Office Visit Podiatry [facility] [address] [facility] [place] [address] Bettye Herrmann, SAMM [address] [facility] [place] [address] 07/08/2023 10:00 AM EDT Imaging Radiology [address] [place] [address] 07/13/2023 11:00 AM EDT Office Visit Radiation Oncology, [address] [place] [address] Shawna Johnson MD [address] [place] [address] [place] [address] 07/19/2023 11:40 AM EDT Office Visit [facility] [address] [place] [address] Johnnie Newby MD [address] [place] [address] Scheduled Procedures Name Priority Associated Diagnoses Date/Ti [...] 05/01/2023 05/01/2022, 02/13/2022 CKD PHOS USE SMARTSET 98713 06/05/202305/20, 06/03/2021, 06/04/2020, Additional history exists GFR 06/17/2023 12/17/2022, 05/20, 12/02/2021, Additional history exists HbA1c 07/16/2023 01/15/2023, 05/20, 12/02/2021, Additional history exists Diabetic Foot Exam 09/10/2023 09/09/2022, 1 , 11/12/2017, Additional history exists DTaP,Tdap,and Td Vaccines (2 - Td or Tdap) 01/06/2024 01/05/2014 O2 ASSESSMENT COMPLETED IN PAST YEAR FOR COPD 01/15/2024 01/14/2023 CKD HGB USE SMARTSET 05112 01/19/202401/18, 01/15/2023, 01/08/2023, Additional history exists Albumin/Creatinine [...] this encounter Medical Devices Implanted Type Area Phonograph Needle Tip Maker Device Identifier Shelf Expiration Date Model / Serial / Lot Lens Intraoc 24.0 - [id number] - [id number] Implanted:Qty: 1 on 06/01/2017 by Nikhil Bolton MD at [facility] Left: Eye [employer] 07/17/2021 [id number] / [id number] / [id number] Lens Intraoc 24.0 - [id number] - [id number] Implanted:Qty: 1 on 06/08/2017 by Nikhil Bolton MD at [facility] Right: Eye [employer] 07/17/2021 [id number] / [id number] / [id number] documented as of this encounter Visit Diagnoses Diagnosis Type 2 diabetes mellitus with diabetic neuropathy, without long-term current use of insulin (HCC)- Primary Pain in both feet Pain in limb Onychomycosis Dermatophytosis of nail Pre-ulcerative calluses Corns and callosities documented in this encounter Advance Directives Documents on File Type Date Recorded Patient Vice Chancellor Expl anation Advance Directives and Yu fine [...] and were consensually agreed upon. Care Teams Singing Telegram Performer Relationship Specialty Start Date End Date Johnnie Newby MD [address] [facility] [place] [address] PCP - General Family Medicine 09/13/20 documented as of this encounter
--- OUTSIDE RECORDS SUMMARY | 2023-04-15 00:16 | External Medical Summary | Summary of Care ---
Author Name Unknown Organization [facility] Address [address] [place] [address] Phone [phone] Care Team Providers Care Financial Market Dealer Name Role Phone Johnnie Newby MD Primary Care Provider [phone] Reason for Visit * Reason Onset Date Comments Advice 01/15/2023 Encounter Details Date Type Department Care Team Description 01/15/2023 Telephone Orthopaedics [facility] [address] [facility] [address] Zander Wilkins, DO [address] [facility] [address] Advice Allergies Active Allergy Reactions Severity Noted Date Comments Acetaminophen 05/06/2005 headaches documented as of this encounter (statuses as of 01/15/2023) Medications Medication Sig Dispensed Refills Start Date [...] hemoglobin A1c goal of less than 7.0% ([facility]) TEST ONCE DAILY 100 Strip 5 03/02/2018 Active Ventolin HFA 108 (90 Base) MCG/ACT Inhalation Aerosol SolutionIndications: COPD, moderate ([facility]) Take 2 Puffs by mouth 4 times [...] 24 Hour (Imdur)Indications:C oronary artery disease involving [place] coronary artery without angina pectoris TAKE ONE [...] 270 Capsule 0 07/08/2022 4 Active Tiotropium [place] Monohydrate 18 MCG Inhalation Capsule (Spiriva) INHALE ONE CAPSULE VIA HANDIHALER EVERY MORNING. DO NOT SWALLOW CAPSULE. 90 Capsule 3 06/26/2022 4 Active Fluticasone-Salmeter ol 230-21 MCG/ACT Inhalation Aerosol (Advair)Indications: COPD, group B, by GOLD 2017 classification ([facility]) INHALE TWO PUFFS BY MOUTH EVERY MORNING AND INHALE TWO PUFFS BY MOUTH AT BEDTIME, RINSE MOUTH AFTER USE 36 g 3 04/17/2022 3 Active Roflumilast 500 MCG Oral Tablet (Daliresp)Indication s:COPD, group D, by GOLD 2017 classification ([facility]) TAKE ONE TABLET BY MOUTH EVERY MORNING [...] (toPROL XL)Indications:SVT (supraventricular tachycardia),NSVT (nonsustained ventricular tachycardia) ([facility]) TAKE ONE TABLET BY MOUTH EVERY DAY [...] THE MORNING 16 g 1 01/15/2023 Active Hospital, Clinic, or Other Facility Administered Medication Ordered Dose Route Frequency Start Date End Date Status albuterol sulfate (PROVENTIL) (2.5 MG/3ML) 0.083% inhalation solution 2.5 mgIndications:COPD, severe (HCC) 2.5 mg NEBULIZER Q4H PRN 07/08/2018 Active Albuterol Sulfate (Proventil) (2.5 MG/3ML) 0.083% inhalation solution 2.5 mgIndications:COPD, moderate (HCC) 2.5 mg NEBULIZER PRN 02/13/2022 02/13/2023 Active Albuterol Sulfate (Proventil) (5 MG/ML) 0.5% *conc* inhalation solution 2.5 mgIndications:COPD, moderate (HCC) 2.5 mg NEBULIZER PRN 02/13/2022 02/13/2023 Active documented as of this encounter (statuses as of 01/15/2023) Active Problems Problem Noted Date Diabetic peripheral neuropathy Diverticulosis of large intestine withou t hemorrhage [...] Dyslipidemia 02/07/2019 Peripheral arterial disease 12/28/2018 Old MS (myocardial infarction) 8 YISSEL treated with BiPAP 01/03/2018 Overview: Wears BiPAP at night Type 2 diabetes mellitus with hemoglobin A1c goal of less than 8.0% 10/23/2014 Overview: ICD-10 update of inactive term CVA, old, 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 PTSD (post-traumatic stress disorder) Gastroesophageal reflux disease without esophagitis 01/05/2014 Coronary artery disease invo lving [place] coronary artery of [place] heart without angina pectoris 11/27/2013 Tobacco abuse 11/27/2013 HTN, goal below 130/80 03/06/2009 Overview: Modified per HTN protocol #16. documented as of this encounter (statuses as of 01/15/2023) Resolved Problems Problem Noted Date Resolved Date [...] as of this encounter (statuses as of 01/15/2023) Immunizations Name Administration Dates Next Due COVID-19 mRNA, LNP-s, No Pre serve, 2-Dose Series ([employer]) 02/10/2022,07/13/2020,06/17/2020 Pneumococcal Conjugate Vacc, 13 Valent (Prevnar) [...] encounter Miscellaneous Notes * Telephone Encounter - Kelsy Hong - 01/15/2023 11:23 AM EDT Patient stopped in today per recommendation of his PCP. He is having a lot of LFT knee pain and is asking what he can do for it. RT knee feels ok. [phone] documented in this encounter Plan of Treatment Upcoming Encounters Date Type Specialty Care Team Description 01/18/2023 Office Visit Orthopedics Zander Wilkins DO [address] [place] [address] 01/27/2023 Hospital Encounter Surgery Pb Alexander DO [address] [place] [address] 01/27/2023 Surgery Surgery Pb Alexander DO [address] [place] [address] DESTROY LUMBAR SACRAL NERVE IMAGING SINGLE 02/26/2023 Office Visit Podiatry Bettye Herrmann, DPM [address] [place] [address] 03/10/2023 Office Visit Cardiology Deisy Aguirre CRNP [address] [place] [address] 05/05/2023 Office Visit Gastroenterology Agnes Bowers CRNP [address] [place] [address] 07/08/2023 Imaging Radiology 07/13/2023 Office Visit Radiation Oncology Shawna Johnson MD [address] [place] [address] [place] [address] 07/19/2023 Office Visit Family Medicine Johnnie Newby MD [address] [place] [address] Scheduled Procedures Name Priority Associated Diagnoses Date/Ti me DESTROY LUMBAR SACRAL NERVE IMAGING SINGLE 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 radiculopathy 01/27/2023 2:20 PM EDT DESTROY LUMBAR SACRAL NERVE IMAGING ADD'L 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 radiculopathy 01/27/2023 2:20 PM EDT Health Maintenance Due Date Last Done Comments Depression Screening 05/31/2020 05/31/2019 COVID-19 Vaccine (4 - Pfizer series) 04/07/2022 02/10/2022, 07/13/2020, 06/17/2020 Albumin/Creatinine Ratio 06/04/20222 022, 04/04/2018, 11/10/2016, Additional history exists HbA1c 12/03/2022 06/05/2022, 11/17, 06/03/2021, Additional history exists DIABETES-EYE EXAM 04/09/2023 04/09/2022, , 03/30/2020, Additional history exists DISCUSS TOBACCO CESSATION (REFER TO SMARTSET #3291) 05/01/2023 05/01/2022, 02/13/2022 CKD PHOS USE SMARTSET 97439 06/05/202305/20, 06/03/2021, 06/04/2020, Additional history exists GFR 06/17/2023 12/17/2022, 05/20, 12/02/2021, Additional history exists Diabetic Foot Exam 09/10/2023 09/09/2022, 1 , 11/12/2017, Additional history exists DTaP,Tdap,and Td Vaccines (2 - Td or Tdap) 01/06/2024 01/05/2014 COLONOSCOPY-ANNUAL AGES 18-100 01/15/2024 01/14/2023, 03/05/2022, 03/05/2022, Additional history exists O2 ASSESSMENT COMPLETED IN PAST YEAR FOR COPD 01/15/2024 01/14/2023 CKD HGB USE SMARTSET 88865 01/16/202401/15, 01/08/2023, 12/17/2022, Additional history exists Pneumococcal Vaccine: 65+ Years Completed 11/07/2015, 04/06/2014 Alpha-1 Antitrypsin Completed 05/22/2019 Zoster Vaccines Completed 02/27/2020, 11/17, 01/05/2014 Influenza Vaccine (FLU shot) Completed , 02/10/2022, 03/05/2021, Additional history exists GARDASIL-HPV IMMUNIZATION SERIES Aged Out No longer eligible based on patient's age to complete this topic Hepatitis B Aged Out No longer eligi ble based on patient's age to complete this topic MENINGOCOCCAL (MENACTRA/MENVEO) Aged Out No longer eligible based on patient's age to complete this topic documented as of this encounter Medical Devices Implanted Type Area Envelope Sealing Machine Operator Device Identifier Shelf Expiration Date Model / Serial / Lot Lens Intraoc 24.0 - [id number] - [id number] Implanted:Qty: 1 on 06/01/2017 by Nikhil Bolton MD at [facility] Left: Eye [employer] 07/17/2021 [id number] / [id number] / [id number] Lens Intraoc 24.0 - [id number] - [id number] Implanted:Qty: 1 on 06/08/2017 by Nikhil Bolton MD at [facility] Right: Eye [employer] 07/17/2021 [id number] / [id number] / [id number] documented as of this encounter Advance Directives Documents on File Type Date Recorded Patient Immigration Associate Expl 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 Care Teams Financial Market Dealer Relationship Specialty Start Date End Date Johnnie Newby MD [address] [place] [address] PCP - General Family Medicine 09/13/20 documented as of this encounter
--- OUTSIDE RECORDS SUMMARY | 2023-04-15 00:16 | External Medical Summary | Summary of Care ---
Author Name Unknown Organization [facility] Address [address] [place] [address] Phone [phone] Care Team Providers Care Stevedoring Superintendent Name Role Phone Johnnie Newby MD Primary Care Provider [phone] Reason for Visit * Reason Comments Follow Up Pt here with , c /o chronic sinus drainage Encounter Details Date Type Department Care Team Description 01/15/2023 Office Visit Family [facility] [address] [facility] [place] [address] Johnnie Newby MD [address] [facility] [place] [address] Type 2 diabetes mellitus with hemoglobin A1c goal of less than 8.0% ([facility])*; HTN, goal below 140/90; Anemia of chronic disease; Dyslipidemia; Diabetic peripheral neuropathy ([facility]); YISSEL treated with BiPAP; Malignant neoplasm of right upper lobe of lung ([facility]); COPD, group D, by GOLD 2017 classification ([facility]); Peripheral arterial disease (HCC); Coronary artery disease involving [place] coronary artery of [place] heart without angina pectoris; Diverticulosis of large intestine without hemorrhage; Chronic kidney disease, stage 3a ([facility]); Tobacco abuse; Depression with anxiety; PTSD (post-traumatic stress disorder) Allergies Active Allergy Reactions Severity Noted Date [...] (HCC) TEST ONCE DAILY 100 Strip 5 8 Active Ventolin HFA 108 (90 Base) MCG/ACT Inhalation Aerosol SolutionIndication s:COPD, moderate ([facility]) Take 2 Puffs by mouth 4 [...] (PriLOSEC)Indicati ons:Gastroesophage al reflux disease without esophagitis TAKE ONE CAPSULE BY MOUTH EVERY MORNING *NEED UPDATED LABS* 90 Capsule 1 3 10/02/19 24 Active Isosorbide Mononitrate ER 60 MG Oral Tablet Extended Release 24 Hour (Imdur)Indications :Coronary artery disease involving [place] coronary artery without angina pectoris TAKE ONE TABLET BY MOUTH EVERY MORNING 90 Tablet 3 3 09/18/19 24 Active Lisinopril 20 MG Oral Tablet (Prinivil)Indicati ons:HTN, goal below 140/90 TAKE ONE TABLET BY MOUTH EVERY MORNING 90 Tablet 2 3 09/18/19 24 Active metFORMIN HCl 1000 MG Oral Tablet (Glucophage) TAKE ONE TABLET BY MOUTH EVERY MORNING 100 Tablet 1 3 09/03/19 24 Active FLUoxetine HCl 20 MG Oral Capsule (PROzac) TAKE THREE CAPSULES BY MOUTH EVERY MORNING 270 Capsule 0 3 07/08/19 24 Active Tiotropium [place] Monohydrate 18 MCG Inhalation Capsule (Spiriva) INHALE ONE CAPSULE VIA HANDIHALER EVERY MORNING. DO NOT SWALLOW CAPSULE. 90 Capsule 3 3 06/26/19 24 Active Fluticasone-Salmet gume 230-21 MCG/ACT Inhalation Aerosol (Advair)Indication s:COPD, group B, by GOLD 2017 classification ([facility]) INHALE TWO PUFFS BY MOUTH EVERY MORNING AND INHALE TWO PUFFS BY MOUTH AT BEDTIME, RINSE MOUTH AFTER USE 36 g 3 2 04/17/20 23 Active Roflumilast 500 MCG Oral Tablet (Daliresp)Indicati ons:COPD, group D, by GOLD 2017 classification ([facility]) TAKE ONE TABLET BY MOUTH EVERY [...] (toPROL XL)Indications:SVT (supraventricular tachycardia),NSVT (nonsustained ventricular tachycardia) ([facility]) TAKE ONE TABLET BY MOUTH EVERY [...] 3 Active Furosemide 40 MG Oral Tablet (Lasix)Indications :HTN, goal below 140/90 Take 1 Tablet by mouth in the morning. 100 Tablet 1 3 Active Fluticasone Propionate 50 MCG/ACT Nasal Suspension (Flonase) USE TWO SPRAYS IN EACH NOSTRIL IN THE MORNING 16 g 1 3 Active Furosemide 40 MG Oral Tablet (Lasix)Indications :HTN, goal below 140/90 TAKE ONE TABLET BY MOUTH EVERY MORNING 100 Tablet 1 3 01/16/20 23 Discontinued(Re fill) Mirtazapine 15 MG Oral Tablet (Remeron) TAKE ONE-HALF TABLET BY MOUTH EVERY NIGHT 45 Tablet 0 3 01/16/20 23 Discontinued Mirtazapine 15 MG Oral Tablet (Remeron) TAKE ONE-HALF TABLET (7.5 MG.) BY MOUTH EVERY NIGHT 45 Tablet 0 3 01/16/20 23 Discontinued FLUoxetine HCl 20 MG Oral Capsule (PROzac) take 3 caps by mouth every morning 270 Capsule 0 3 01/16/20 23 Discontinued Mirtazapine 15 MG Oral Tablet (Remeron) take 1/2 tab (7.5mg) by mouth every night 45 Tablet 0 3 01/16/20 23 Discontinued Fluticasone Propionate 50 MCG/ACT Nasal Suspension (Flonase) USE TWO SPRAYS IN EACH NOSTRIL IN THE MORNING 16 g 1 3 01/16/20 23 Discontinued(Re fill) Hospital, Clinic, or Other Facility Administered Medication [...] arterial disease 12/28/2018 Old [place] (myocardial infarction) 8 YISSEL treated with BiPAP 01/03/2018 Overview: Wears BiPAP at night Type 2 diabetes mellitus with hemoglobin A1c goal of less than 8.0% 10/23/2014 Overview: ICD-10 update of inactive term CVA, old, 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 PTSD (post-traumatic stress disorder) Gastroesophageal reflux disease without esophagitis 01/05/2014 Coronary artery disease invo lving [place] coronary artery of [place] heart without angina pectoris 11/27/2013 Tobacco abuse [...] major, recurrent 01/05/2014 Generalized anxiety disorder 01/05/2014 02/ Benign neoplasm of colon 09/18/2010 019 Overview: [...] mRNA, LNP-s, No Pre serve, 2-Dose Series ([employer]) 02/10/2022,07/13/2020,06/17/2020 Pneumococcal Conjugate Vacc, 13 Valent (Prevnar) [...] Sign Reading Time Taken Comments Blood Pressure 102/58 01/15/2023 10:35 AM EDT Pulse 72 01/15/2023 10:35 AM EDT Temperature 36.7 C (98.1 F) 01/15/2023 10:35 AM E DT Respiratory Rate 18 01/15/2023 10:35 AM EDT Oxygen Saturation - - Inhaled Oxygen Concentration - - Weight 89.4 kg (197 lb) 01/15/2023 10:35 AM EDT Height 172.7 cm (5' 8") 01/15/2023 10:35 AM EDT Body Mass Index 29.95 01/15/2023 10:35 AM EDT documented in this encounter Progress Notes * Johnnie Newby MD - 01/15/2023 11:23 AM EDT SUBJECTIVE: Walter Don is a 77 year old male. Chief Complaint Patient presents with Follow Up Pt here with , c/o chronic sinus drainage HPI: This is a medically complex 77 year old male here with his for a routine follow up. He is a dedicated smoker in spite of having lung cancer and COPD. He has "zero interest" in quitting. Most of his complaints today are in regards to his chronic sinus drainage. He had an EGD and colonoscopy today as work up for his chronic anemia. He most recent hemoglobin levels have been in the low 9 range.He very likely has anemia of chronic disease at this juncture. He and his remain very confusedabout "who he is supposed to see for things." He asked me several questions today about items that are being addressed by specialists. He has follow up scheduled with GI, but neither he nor his were even aware of this. He also asks questions about why the injections that ortho gave him aren't helping his left knee. Patient Active Problem List Diagnosis Code HTN, goal below 130/80 I10 Coronary artery disease involving [place] coronary artery of [place] heart without angina pectoris I25.10 Tobacco abuse Z72.0 CVA, old, ataxia I69.993 PTSD (post-traumatic stress disorder) F43.10 Gastroesophageal reflux disease without esophagitis K21.9 Type 2 diabetes mellitus with hemoglobin A1c goal of less than 8.0% ([facility]) E11.9 [place] (myocardial infarction) I25.2 YISSEL treated with BiPAP G47.33 Peripheral arterial disease ([facility]) I73.9 Dyslipidemia E78.5 COPD, group D, by GOLD 2017 classification ([facility]) J44.9 Carotid stenosis, non-symptomatic I65.29 NSVT (nonsustained ventricular tachycardia) ([facility]) I47.29 Aortic valve stenosis I35.0 AAA (abdominal aortic aneurysm) ([facility]) I71.40 Chronic kidney disease, stage 3a ([facility]) N18.31 Malignant neoplasm of right upper lobe of lung ([facility]) C34.11 Obesity, Class I, BMI 30.0-34.9 (see actual BMI) E66.9 Depression with anxiety F41.8 History of cardioembolic cerebrovascular accident (CVA) Z86.73 Gouty arthropathy M10.9 Diabetic peripheral neuropathy ([facility]) E11.42 Diverticulosis of large intestine without hemorrhage K57.30 Anemia of chronic disease D63.8 Current Outpatient Medications Medication Sig Dispense Refill DAILY MULTIVITAMIN PO TABS with lycopene BUSPAR 15 MG PO TABS Take by mouth. Uses as needed clonazePAM (KLONOPIN) 0.5 MG Tablet Uses as needed 0 risperiDONE 0.25 MG Oral Tablet Take 2 Tablets by mouth at bedtime. Ventolin HFA 108 (90 Base) MCG/ACT Inhalation [...] MOUTH EVERY MORNING 270 Capsule 0 Tiotropium [place] Monohydrate 18 MCG Inhalation Capsule (Spiriva) INHALE [...] NOSTRIL IN THE MORNING 16 g 1 Dianxin ULTRA BLUE STRP TEST ONCE DAILY 100 Strip 5 Current Facility-Administered Medications Medication Dose Route Frequency Provider Last Rate Last Admin albuterol sulfate (PROVENTIL) (2.5 MG/3ML) 0.083% inhalation solution 2.5 mg 2.5 mg Nebulizer Q4H PRN Junaid Pyle MD 2.5 mg at 07/26/18 1521 Albuterol Sulfate (Proventil) (2.5 MG/3ML) 0.083% inhalation solution 2.5 mg 2.5 mg Nebulizer PRN Jesus Landrum MD Albuterol Sulfate (Proventil) (5 MG/ML) 0.5% *conc* inhalation solution 2.5 mg 2.5 mg Nebulizer PRNJesus Landrum MD 2.5 mg at 04/14/22 1246 Allergy: Review of patient's allergies indicates: Allergen Reactions Tylenol [Acetaminophen] headaches OBJECTIVE: BP 102/58 (BP Site: Left Arm, BP Position: Sitting, BP Cuff Size: Regular) | Pulse 72 | Temp 36.7 C (98.1 F) (Tympanic) | Resp 18 | Ht 1.727 m (5' 8") | Wt 89.4 kg (197 lb) | BMI 29.95 kg/m | BSA 2.07 m Gen: aao x 3, obese Lungs: ctab Heart: rrr, no mrg Skin: no significant rashes or lesions Ext: no c/c/e Neuro: grossly normal ASSESSMENT AND PLAN: (E11.9) Type 2 diabetes mellitus with hemoglobin A1c goal of less than 8.0% ([facility]) (primary encounter diagnosis) Plan: HEMOGLOBIN A1C -continue current mgmt (D63.8) Anemia of chronic disease Plan: no obvious source of bleed at this juncture (E78.5) Dyslipidemia Plan: continue rx (E11.42) Diabetic peripheral neuropathy (HCC) Plan: continue rx (G47.33) YISSEL treated with BiPAP Plan: stable (C34.11) Malignant neoplasm of right upper lobe of lung (HCC) Plan: follows with heme/onc (J44.9) COPD, group D, by GOLD 2017 classification ([facility]) Plan: dedicated smoker; complains of intermittent shortness of breath but admits to not using rescue inhaler "because it's not near him" (I73.9) Peripheral arterial disease (HCC) Plan: continue medical mgmt (I25.10) Coronary artery disease involving [place] coronary artery of [place] heart without angina pectoris Plan: continue medical mgmt (K57.30) Diverticulosis of large intestine without hemorrhage Plan: no active bleed on colonoscopy yesterday (N18.31) Chronic kidney disease, stage 3a (HCC) Plan: stable (Z72.0) Tobacco abuse Plan: dedicated smoker; will not consider quitting; has smoked since "the age of 7" (F41.8) Depression with anxiety Plan: stable (F43.10) PTSD (post-traumatic stress disorder) Plan: stable Follow up in 6 month(s). No other complaints were offered at this time. Johnnie Newby MD documented in this encounter Nursing Notes * Smitha Newton LPN - 01/15/2023 10:35 AM EDT The patient has been properly identified by confirmation of name and date of . Chief Complaint Patient presents with Follow Up Pt here with , c/o chronic sinus drainage documented in this encounter Plan of Treatment Upcoming Encounters Date Type Specialty Care Team Description 01/18/2023 Office Visit Orthopedics Zander Wilkins DO [address] [place] [address] 01/27/2023 Hospital Encounter Surgery Pb Alexander DO [address] [place] [address] 01/27/2023 Surgery Surgery Pb Alexander DO [address] [place] [address] DESTROY LUMBAR SACRAL NERVE IMAGING SINGLE 02/26/2023 Office Visit Podiatry Bettye Herrmann DPM [address] [place] [address] 03/10/2023 Office Visit Cardiology Deisy Aguirre CRNP [address] [place] [address] 05/05/2023 Office Visit Gastroenterology Agnes Bowers CRNP [address] [place] [address] 07/08/2023 Imaging Radiology 07/13/2023 Office Visit Radiation Oncology Shawna Johnson MD [address] [place] [address] 07/19/2023 Office Visit Family Medicine Johnnie Newby MD [address] [place] [address] Pending Results Name Type Priority Associated Diagnoses Date /Time HEMOGLOBIN A1C Lab Routine Type 2 diabetes mellitus with hemoglobin A1c goal of less than 8.0% (HCC) 01/15/2023 11:14 AM EDT Scheduled Orders Name Type Priority Associated Diagnoses Orde r Schedule HEMOGLOBIN A1C Lab Routine Type 2 diabetes mellitus with hemoglobin A1c goal of less than 8.0% (HCC) Expected: 01/15/2023 (Approximate), Expires: 01/15/2024 Scheduled Procedures Name Priority Associated Diagnoses Date/Ti [...] 05/01/2023 05/01/2022, 02/13/2022 CKD PHOS USE SMARTSET 82317 06/05/202305/20, 06/03/2021, 06/04/2020, Additional history exists GFR 06/17/2023 12/17/2022, 05/20, 12/02/2021, Additional history exists Diabetic Foot Exam 09/10/2023 09/09/2022, 1 , 11/12/2017, Additional history exists DTaP,Tdap,and Td Vaccines (2 - Td or Tdap) 01/06/2024 01/05/2014 COLONOSCOPY-ANNUAL AGES 18-100 01/15/2024 01/14/2023, 03/05/2022, 03/05/2022, Additional history exists O2 ASSESSMENT COMPLETED IN PAST YEAR FOR COPD 01/15/2024 01/14/2023 CKD HGB USE SMARTSET 20003 01/16/202401/15, 01/08/2023, 12/17/2022, Additional history exists Pneumococcal [...] this encounter Medical Devices Implanted Type Area Licsw Device Identifier Shelf Expiration Date Model / Serial / Lot Lens Intraoc 24.0 - [id number] - [id number] Implanted:Qty: 1 on 06/01/2017 by Nikhil Bolton MD at [facility] Left: Eye [employer] 07/17/2021 [id number] / [id number] / [id number] Lens Intraoc 24.0 - [id number] - [id number] Implanted:Qty: 1 on 06/08/2017 by Nikhil Bolton MD at OR [facility] Right: Eye [employer]OMB 07/17/2021 [id number] / [id number] / [id number] documented as of this encounter Visit Diagnoses Diagnosis Type 2 diabetes mellitus with hemoglobin A1c goal of less than 8.0% ([facility])- Primary HTN, goal below 140/90 Unspecified essential hypertension Anemia of chronic disease Anemia of other chronic disease Dyslipidemia Other and unspecified hyperlipidemia Diabetic peripheral neuropathy (HCC) Type II or unspecified type diabetes mellitus with neurological manifestations, not stated as uncontrolled YISSEL treated with BiPAP Malignant neoplasm of right upper lobe of lung (HCC) Malignant neoplasm of upper lobe, bronchus or lung COPD, group D, by GOLD 2017 classification ([facility]) Peripheral arterial disease (HCC) Peripheral vascular disease, unspecified Coronary artery disease involving [place] coronary artery of [place] heart without angina pectoris Diverticulosis of large intestine without hemorrhage Chronic kidney disease, stage 3a (HCC) Tobacco abuse Tobacco use disorder Depression with anxiety Dysthymic disorder PTSD (post-traumatic stress disorder) Posttraumatic stress disorder 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 radiculopathy Lumbosacral spondylosis without myelopathy documented in this encounter Advance Directives Documents on File Type Date Recorded Patient Bilingual Customer Service Specialist Expl anation Advance Directives and Yu fine [...] and were consensually agreed upon. Care Teams Stevedoring Superintendent Relationship Specialty Start Date End Date Johnnie Newby MD [address] [facility] [place] [address] PCP - General Family Medicine 09/13/20 documented as of this encounter
--- OUTSIDE RECORDS SUMMARY | 2023-04-15 00:16 | External Medical Summary | Summary of Care ---
Author Name Unknown Organization [facility] Address [address] [place] [address] Phone [phone] Care Team Providers Care [place] Upholsterer Name Role Phone Johnnie Newby MD Primary Care Provider [phone] Encounter Details Date Type Department Care Team Description 01/16/2023 Patient Reported Data Patient Survey Ortho [facility]BERD Allergies Active Allergy Reactions Severity Noted Date Comments Acetaminophen 05/06/2005 headaches documented as of this encounter (statuses as of 01/16/2023) Medications Medication Sig Dispensed Refills Start Date [...] hemoglobin A1c goal of less than 7.0% ([facility]) TEST ONCE DAILY 100 Strip 5 03/02/2018 Active Ventolin HFA 108 (90 Base) MCG/ACT Inhalation Aerosol SolutionIndications: COPD, moderate ([facility]) Take 2 Puffs by mouth [...] 24 Hour (Imdur)Indications:C oronary artery disease involving [place] coronary artery without angina pectoris TAKE ONE [...] 270 Capsule 0 07/08/2022 4 Active Tiotropium [place] Monohydrate 18 MCG Inhalation Capsule (Spiriva) INHALE ONE CAPSULE VIA HANDIHALER EVERY MORNING. DO NOT SWALLOW CAPSULE. 90 Capsule 3 06/26/2022 4 Active Fluticasone-Salmeter ol 230-21 MCG/ACT Inhalation Aerosol (Advair)Indications: COPD, group B, by GOLD 2017 classification ([facility]) INHALE TWO PUFFS BY MOUTH EVERY MORNING AND INHALE TWO PUFFS BY MOUTH AT BEDTIME, RINSE MOUTH AFTER USE 36 g 3 04/17/2022 3 Active Roflumilast 500 MCG Oral Tablet (Daliresp)Indication s:COPD, group D, by GOLD 2017 classification ([facility]) TAKE ONE TABLET BY MOUTH [...] as of this encounter (statuses as of 01/16/2023) Active Problems Problem Noted Date Diabetic peripheral [...] arterial disease 12/28/2018 Old [place] (myocardial infarction) 8 YISSEL treated with BiPAP 01/03/2018 Overview: Wears BiPAP at night Type 2 diabetes mellitus with hemoglobin A1c goal of less than 8.0% 10/23/2014 Overview: ICD-10 update of inactive term CVA, old, 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 PTSD (post-traumatic stress disorder) Gastroesophageal reflux disease without esophagitis 01/05/2014 Coronary artery disease invo lving [place] coronary artery of [place] heart without angina pectoris 11/27/2013 Tobacco abuse 11/27/2013 HTN, goal below 130/80 03/06/2009 Overview: Modified per HTN protocol #16. documented as of this encounter (statuses as of 01/16/2023) Resolved Problems Problem Noted Date Resolved Date [...] as of this encounter (statuses as of 01/16/2023) Immunizations Name Administration Dates Next Due COVID-19 mRNA, LNP-s, No Pre serve, 2-Dose Series ([employer]) 02/10/2022,07/13/2020,06/17/2020 Pneumococcal Conjugate Vacc, 13 Valent (Prevnar) [...] Team Description 01/18/2023 Office Visit Orthopedics Zander Wilkins, [address] [place] [address] 01/27/2023 Hospital Encounter Surgery Pb Alexander DO [address] [place] [address] 01/27/2023 Surgery Surgery Pb Alexander DO [address] [place] [address] DESTROY LUMBAR SACRAL NERVE IMAGING SINGLE 02/26/2023 Office Visit Podiatry Bettye Herrmann DPM [address] [facility] [place] [address] 03/10/2023 Office Visit Cardiology Deisy Aguirre CRNP [address] [place] [address] 05/05/2023 Office Visit Gastroenterology Agnes Bowers CRNP [address] [place] [address] 07/08/2023 Imaging Radiology 07/13/2023 Office Visit Radiation Oncology Shawna Johnson MD [address] [place] [address] [place] [address] 07/19/2023 Office Visit Family Medicine Johnnie Newby MD [address] [place] [address] Scheduled Procedures Name Priority Associated Diagnoses Date/Ti [...] - Pfizer series) 04/07/2022 02/10/2022, 07/13/2020, 06/17/2020 DIABETES-EYE EXAM 04/09/2023 04/09/2022, , 03/30/2020, Additional history exists DISCUSS TOBACCO CESSATION (REFER TO SMARTSET #3291) 05/01/2023 05/01/2022, 02/13/2022 CKD PHOS USE SMARTSET 85331 06/05/202305/20, 06/03/2021, 06/04/2020, Additional history exists GFR 06/17/2023 12/17/2022, 05/20, 12/02/2021, Additional history exists HbA1c 07/16/2023 01/15/2023, 05/20, 12/02/2021, Additional history exists Diabetic Foot Exam 09/10/2023 09/09/2022, 1 , 11/12/2017, Additional history exists DTaP,Tdap,and Td Vaccines (2 - Td or Tdap) 01/06/2024 01/05/2014 COLONOSCOPY-ANNUAL AGES 18-100 01/15/2024 01/14/2023, 01/14/2023, 03/05/2022, Additional history exists O2 ASSESSMENT COMPLETED IN PAST YEAR FOR COPD 01/15/2024 01/14/2023 Albumin/Creatinine Ratio 01/16/2024 023, 06/04/2021, 04/04/2018, Additional history exists CKD HGB USE SMARTSET 48831 01/16/202401/15, 01/08/2023, 12/17/2022, Additional history exists Pneumococcal [...] this encounter Medical Devices Implanted Type Area Head Mva Reactor Operator Device Identifier Shelf Expiration Date Model / Serial / Lot Lens Intraoc 24.0 - [id number] - [id number] Implanted:Qty: 1 on 06/01/2017 by Nikhil Bolton MD at OR [facility] Left: Eye [employer]OM[employer] 07/17/2021 [id number] / [id number] / [id number] Lens Intraoc 24.0 - [id number] - [id number] Implanted:Qty: 1 on 06/08/2017 by Nikhil Bolton MD at OR [facility] Right: Eye BAUSCH [employer] LOMB 07/17/2021 [id number] / [id number] / [id number] documented as of this encounter Advance Directives Documents on File Type Date Recorded Patient Technical Specialist Expl anation Advance Directives and Yu g [...] and were consensually agreed upon. Care Teams [place] Upholsterer Relationship Specialty Start Date End Date Johnnie Newby MD [address] [place] [address] PCP - General Family Medicine 09/13/20 documented as of this encounter
--- OUTSIDE RECORDS SUMMARY | 2023-04-15 00:16 | External Medical Summary | Summary of Care ---
Author Name Unknown Organization [facility] Address [address] [place] [address] Phone [phone] Care Team Providers Care Display Carver Name Role Phone Johnnie Newby MD Primary Care Provider [phone] Reason for Visit * Reason Onset Date Comments Advice 01/15/2023 Encounter Details Date Type Department Care Team Description 01/15/2023 Telephone Orthopaedics [facility] [address] [facility] [place] [address] Zander Wilkins, DO [address] [facility] [address] Advice Allergies Active Allergy Reactions Severity Noted [...] 24 Hour (Imdur)Indications:C oronary artery disease involving hopland coronary artery without angina pectoris TAKE ONE [...] 270 Capsule 0 07/08/2022 4 Active Tiotropium [place] Monohydrate 18 MCG Inhalation Capsule (Spiriva) INHALE [...] (toPROL XL)Indications:SVT (supraventricular tachycardia),NSVT (nonsustained ventricular tachycardia) ([facility]) TAKE ONE TABLET BY MOUTH EVERY DAY [...] Dyslipidemia 02/07/2019 Peripheral arterial disease 12/28/[address] (myocardial infarction) 8 YISSEL treated with BiPAP 01/03/2018 Overview: Wears BiPAP at night Type 2 diabetes mellitus with hemoglobin A1c goal of less than 8.0% 10/23/2014 Overview: ICD-10 update of inactive term CVA, old, 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 PTSD (post-traumatic stress disorder) Gastroesophageal reflux disease without esophagitis 01/05/2014 Coronary artery disease invo lving hopland coronary artery of hopland heart without angina pectoris 11/27/2013 Tobacco abuse [...] mRNA, LNP-s, No Pre serve, 2-Dose Series (Deal[employer]ird) 02/10/2022,07/13/2020,06/17/2020 Pneumococcal Conjugate Vacc, 13 Valent (Prevnar) [...] Telephone Encounter - Kelsy Hong - 01/15/2023 1:24 PM EDT Scheduled * Telephone Encounter - Kelsy Hong - 01/15/2023 11:23 AM EDT Patient stopped in today per recommendation of his PCP. He is having a lot of LFT knee pain and is asking what he can do for it. RT knee feels ok. [phone] documented in this encounter Plan of Treatment Upcoming Encounters Date Type Specialty Care Team Description 01/18/2023 Office Visit Orthopedics Zander Wilkins, DO [address] [place] [address] 01/27/2023 Hospital Encounter Surgery Pb Alexander, [address] [place] [address] 01/27/2023 Surgery Surgery Pb Alexander, [address] [place] [address] DESTROY LUMBAR SACRAL NERVE IMAGING SINGLE 02/26/2023 Office [facility] [address] 03/10/2023 Office Visit Cardiology Deisy Aguirre CRNP [address] [place] [address] 05/05/2023 Office Visit Gastroenterology Agnes Bowers CRNP [address] [place] [address] 07/08/2023 Imaging Radiology 07/13/2023 Office Visit Radiation Oncology Shawna Johnson MD [address] [place] [address] [place] [address] 07/19/2023 Office Visit Family Medicine Johnnie Newby MD [address] [place] [address] Scheduled Procedures Name Priority Associated Diagnoses Date/Ti [...] exists DISCUSS TOBACCO CESSATION (REFER TO SMARTSET #2304) 05/01/2023 05/01/2022, 02/13/2022 CKD PHOS USE SMARTSET 30100 06/05/202305/20, 06/03/2021, 06/04/2020, Additional history exists GFR 06/17/2023 12/17/2022, 05/20, 12/02/2021, Additional history exists Diabetic Foot Exam 09/10/2023 09/09/2022, 1 , 11/12/2017, Additional history exists DTaP,Tdap,and Td Vaccines (2 - Td or Tdap) 01/06/2024 01/05/2014 COLONOSCOPY-ANNUAL AGES 18-100 01/15/2024 01/14/2023, 03/05/2022, 03/05/2022, Additional history exists O2 ASSESSMENT COMPLETED IN PAST YEAR FOR COPD 01/15/2024 01/14/2023 CKD HGB USE SMARTSET 32704 01/16/202401/15, 01/08/2023, 12/17/2022, Additional history exists Pneumococcal [...] this encounter Medical Devices Implanted Type Area Slot Machine Repairer Device Identifier Shelf Expiration Date Model / Serial / Lot Lens Intraoc 24.0 - [id number] - [id number] Implanted:Qty: 1 on 06/01/2017 by Nikhil Bolton MD at OR [facility] Left: Eye BAUSCH [employer] LOMB 07/17/2021 [id number] / [id number] / [id number] Lens Intraoc 24.0 - [id number] - [id number] Implanted:Qty: 1 on 06/08/2017 by Nikhil Bolton MD at OR [facility] Right: Eye BAUSCH & LOMB 07/17/2021 [id number] / [id number] / [id number] documented as of this encounter Advance Directives Documents on File Type Date Recorded Patient Transportation Equipment Painter Expl 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 Care Teams Display Carver Relationship Specialty Start Date End Date Johnnie Newby MD [address] [place] [address] PCP - General Family Medicine 09/13/20 documented as of this encounter
--- OUTSIDE RECORDS SUMMARY | 2023-04-15 00:16 | External Medical Summary | Summary of Care ---
Author Name Unknown Organization [facility] Address [address] [place] [address] Phone [phone] Care Team Providers Care Respiratory Therapist Assistant Name Role Phone Johnnie Newby MD Primary Care Provider [phone] Encounter Details Date Type Department Care Team Description 01/19/2023 Patient Reported Data Patient Survey Ortho [facility]BER[facility] Allergies Active Allergy Reactions Severity Noted Date Comments Acetaminophen 05/06/2005 headaches documented as of this encounter (statuses as of 01/19/2023) Medications Medication Sig Dispensed Refills Start Date [...] hemoglobin A1c goal of less than 7.0% ([facility] TEST ONCE DAILY 100 Strip 5 03/02/2018 Active Ventolin HFA 108 (90 Base) MCG/ACT Inhalation Aerosol SolutionIndications: COPD, moderate ([facility]) Take 2 Puffs by mouth 4 times [...] 24 Hour (Imdur)Indications:C oronary artery disease involving squaxin coronary artery without angina pectoris TAKE ONE [...] 270 Capsule 0 07/08/2022 4 Active Tiotropium [place] Monohydrate 18 MCG Inhalation Capsule (Spiriva) INHALE ONE CAPSULE VIA HANDIHALER EVERY MORNING. DO NOT SWALLOW CAPSULE. 90 Capsule 3 06/26/2022 4 Active Fluticasone-Salmeter ol 230-21 MCG/ACT Inhalation Aerosol (Advair)Indications: COPD, group B, by GOLD 2017 classification ([facility]) INHALE TWO PUFFS BY MOUTH EVERY MORNING AND INHALE TWO PUFFS BY MOUTH AT BEDTIME, RINSE MOUTH AFTER USE 36 g 3 04/17/2022 3 Active Roflumilast 500 MCG Oral Tablet (Daliresp)Indication s:COPD, group D, by GOLD 2017 classification ([facility]) TAKE ONE TABLET BY MOUTH EVERY MORNING [...] as of this encounter (statuses as of 01/19/2023) Active Problems Problem Noted Date Diabetic peripheral [...] Dyslipidemia 02/07/2019 Peripheral arterial disease 12/28/2018 Old [place] (myocardial infarction) 8 YISSEL treated with BiPAP 01/03/2018 Overview: Wears BiPAP at night Type 2 diabetes mellitus with hemoglobin A1c goal of less than 8.0% 10/23/2014 Overview: ICD-10 update of inactive term CVA, old, 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 PTSD (post-traumatic stress disorder) Gastroesophageal reflux disease without esophagitis 01/05/2014 Coronary artery disease invo lving squaxin coronary artery of squaxin heart without angina pectoris 11/27/2013 Tobacco abuse 11/27/2013 HTN, goal below 130/80 03/06/2009 Overview: Modified per HTN protocol #16. documented as of this encounter (statuses as of 01/19/2023) Resolved Problems Problem Noted Date Resolved Date [...] as of this encounter (statuses as of 01/19/2023) Immunizations Name Administration Dates Next Due COVID-19 mRNA, LNP-s, No Pre serve, 2-Dose Series (Snipd) 02/10/2022,07/13/2020,06/17/2020 Pneumococcal Conjugate Vacc, 13 Valent (Prevnar) [...] Encounters Date Type Specialty Care Team Description 01/27/2023 Hospital Encounter Surgery Pb Alexander DO [address] [place] [address] 01/27/2023 Surgery Surgery Pb Alexander DO [address] [place] [address] DESTROY LUMBAR SACRAL NERVE IMAGING SINGLE 02/15/2023 Office Visit Orthopedics Abe Prater MD [address] [place] [address] 02/26/2023 Office Visit Podiatry Bettye Herrmann DPM [address] [place] [address] 03/10/2023 Office Visit Cardiology Deisy Aguirre CRNP [address] [place] [address] 04/26/2023 Office Visit Orthopedics Zander Wilkins DO [address] [place] [address] 05/05/2023 Office Visit Gastroenterology Agnes Bowers CRNP [address] [place] [address] 07/08/2023 Imaging Radiology 07/13/2023 Office Visit Radiation Oncology Shawna Johnson MD [address] [place] [address] 07/19/2023 Office Visit Family Medicine Johnnie Newby MD [address] [place] [address] Scheduled Procedures Name Priority Associated Diagnoses Date/Ti [...] 05/01/2023 05/01/2022, 02/13/2022 CKD PHOS USE SMARTSET 40368 06/05/202305/20, 06/03/2021, 06/04/2020, Additional history exists GFR [...] Additional history exists CKD HGB USE SMARTSET 40976 01/19/202401/18, 01/15/2023, 01/08/2023, Additional history exists Pneumococcal Vaccine: 65+ Years [...] this encounter Medical Devices Implanted Type Area Wildland Firefighter Device Identifier Shelf Expiration Date Model / Serial / Lot Lens Intraoc 24.0 - [id number] - [id number] Implanted:Qty: 1 on 06/01/2017 by Nikhil Bolton MD at OR [facility] Left: Eye BAUSCH & LOMB 07/17/2021 [id number] / [id number] / [id number] Lens Intraoc 24.0 - [id number] - [id number] Implanted:Qty: 1 on 06/08/2017 by Nikhil Bolton MD at OR [facility] Right: Eye BAUSCH & LOMB 07/17/2021 [id number] / [id number] / [id number] documented as of this encounter Advance Directives Documents on File Type Date Recorded Patient Strength And Conditioning Coach Expl anation Advance Directives and Yu fine [...] and were consensually agreed upon. Care Teams Respiratory Therapist Assistant Relationship Specialty Start Date End Date Johnnie Newby MD [address] [place] [address] PCP - General Family Medicine 09/13/20 documented as of this encounter
--- OUTSIDE RECORDS SUMMARY | 2023-04-15 00:16 | External Medical Summary | Summary of Care ---
Author Name Unknown Organization [facility] Address [address] [place] [address] Phone [phone] Care Team Providers Care Healthcare Architect Name Role Phone Johnnie Newby MD Primary Care Provider [phone] [phone] Encounter Details Date Type Department Care Team [...] hemoglobin A1c goal of less than 7.0% ([facility]) TEST ONCE DAILY 100 Strip 5 03/02/2018 Active Ventolin HFA 108 (90 Base) MCG/ACT Inhalation Aerosol SolutionIndications: COPD, moderate ([facility]) Take 2 Puffs by mouth [...] 24 Hour (Imdur)Indications:C oronary artery disease involving marshall coronary artery without angina pectoris TAKE ONE [...] 270 Capsule 0 07/08/2022 4 Active Tiotropium [place] Monohydrate 18 MCG Inhalation Capsule (Spiriva) INHALE ONE CAPSULE VIA HANDIHALER EVERY MORNING. DO NOT SWALLOW CAPSULE. 90 Capsule 3 06/26/2022 4 Active Fluticasone-Salmeter ol 230-21 MCG/ACT Inhalation Aerosol (Advair)Indications: COPD, group B, by GOLD 2017 classification ([facility]) INHALE TWO PUFFS BY MOUTH EVERY MORNING AND INHALE TWO PUFFS BY MOUTH AT BEDTIME, RINSE MOUTH AFTER USE 36 g 3 04/17/2022 3 Active Roflumilast 500 MCG Oral Tablet (Daliresp)Indication s:COPD, group D, by GOLD 2017 classification ([facility]) TAKE ONE TABLET BY MOUTH [...] Dyslipidemia 02/07/2019 Peripheral arterial disease 12/28/2018 Old [place] (myocardial infarction) 8 YISSEL treated with BiPAP 01/03/2018 Overview: Wears BiPAP at night Type 2 diabetes mellitus with hemoglobin A1c goal of less than 8.0% 10/23/2014 Overview: ICD-10 update of inactive term CVA, old, 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 PTSD (post-traumatic stress disorder) Gastroesophageal reflux disease without esophagitis 01/05/2014 Coronary artery disease invo lving marshall coronary artery of marshall heart without angina pectoris 11/27/2013 Tobacco abuse [...] mRNA, LNP-s, No Pre serve, 2-Dose Series ([facility]) 02/10/2022,07/13/2020,06/17/2020 Pneumococcal Conjugate Vacc, 13 Valent (Prevnar) [...] Zander Wilkins, [address] [place] [address] 01/27/2023 Hospital Encounter Surgery Pb Alexander DO [address] [place] [address] 01/27/2023 Surgery Surgery Pb Alexander DO [address] [place] [address] DESTROY LUMBAR SACRAL NERVE IMAGING SINGLE 02/26/2023 Office Visit Podiatry Bettye Herrmann DPM [address] [facility] [place] [address] 03/10/2023 Office Visit Cardiology Deisy Aguirre CRNP [address] [place] [address] 05/05/2023 Office Visit Gastroenterology Agnes Bowers CRNP [address] [place] [address] 07/08/2023 Imaging Radiology 07/13/2023 Office Visit Radiation Oncology Shawna Johnson MD [address] [place] [address] [place] [address] 07/19/2023 Office Visit Family Medicine Johnnie Newby MD [address] [place] [address] Scheduled Procedures Name Priority Associated Diagnoses Date/Ti [...] 05/01/2023 05/01/2022, 02/13/2022 CKD PHOS USE SMARTSET 28838 06/05/202305/20, 06/03/2021, 06/04/2020, Additional history exists GFR [...] Additional history exists CKD HGB USE SMARTSET 28266 01/16/202401/15, 01/08/2023, 12/17/2022, Additional history exists Pneumococcal [...] this encounter Medical Devices Implanted Type Area Solar Photovoltaic Electrician Device Identifier Shelf Expiration Date Model / Serial / Lot Lens Intraoc 24.0 - [id number] - [id number] Implanted:Qty: 1 on 06/01/2017 by Nikhil Bolton MD at OR [facility] Left: Eye BAUSCH & LOMB 07/17/2021 [id number] / [id number] / [id number] Lens Intraoc 24.0 - [id number] - [id number] Implanted:Qty: 1 on 06/08/2017 by Nikhil Bolton MD at OR [facility] Right: Eye BAUSCH & LOMB 07/17/2021 [id number] / [id number] / [id number] documented as of this encounter Advance Directives Documents on File Type Date Recorded Patient Field Mechanic Expl anation Advance Directives and Yu g [...] and were consensually agreed upon. Care Teams Healthcare Architect Relationship Specialty Start Date End Date Johnnie Newby MD [address] [place] [address] PCP - General Family Medicine 09/13/20 documented as of this encounter
--- OUTSIDE RECORDS SUMMARY | 2023-04-15 00:16 | External Medical Summary ---
Author Name Unknown Address Unknown Organization [id number][facility] [place] [address] Laboratory Report Ordering Provider Test Date Status ALONZO DELUNA 01/18/2023 14:21:44 Final Observation Date Value Abnormality Reference (Units ) Status WBC, Total 01/18/2023 14:21:44 6.09 4.00-10.8 0 (K/uL) Final RBC 01/18/2023 14:21:44 3.33 4.50-5.25 (M/uL) Final Hemoglobin 01/18/2023 14:21:44 9.2 Below low normal 14 .0-16.8 (g/dL) Final HCT 01/18/2023 14:21:44 30.1 Below low normal 40. 0-48.4 (%) Final MCV 01/18/2023 14:21:44 90.4 82.0-99.5 (fL) Final MCH 01/18/2023 14:21:44 27.6 27.0-34.0 (pg) Final MCHC 01/18/2023 14:21:44 30.6 32.0-36.0 (g/dL) Final RDW 01/18/2023 14:21:44 18.5 11.5-15.5 (%) Final Platelets 01/18/2023 14:21:44 282 140-400 (K /uL) Final MPV 01/18/2023 14:21:44 9.1 6.6-11.1 ( fL) Final Performing Location [facility] [place] [address] [place] [address]
--- OUTSIDE RECORDS SUMMARY | 2023-04-15 00:16 | External Medical Summary | Summary of Care ---
Author Name Unknown Organization [facility] Address [address] [place] [address] Phone [phone] Care Team Providers Care Stationary Engineer Apprentice Name Role Phone Johnnie Newby MD Primary Care Provider [phone] [phone] Reason for Referral * Evaluate & Treat - Unlimited Visits (Within 10 days (routine)) - Authorized Specialty Diagnoses / Procedures Referred By Treva judd Referred To Contact Orthopaedic Surgery / Orthopedics Diagnoses Primary osteoarthritis of left knee Zander Wilkins DO [address] [place] [address] Referral ID Status Reason Start Date Expiration Date Visits Requested Visits Authorized [id number] Authorized Specialty Services Required 01/18/2023 999 999 Question Answer Referral Priority Within 10 days (routine) What body part is the patient being seen for? Thigh/Knee What condition is the patient being seen for? Arthritis including related infection Comments TKA consult- Left Dr Prater Reason for Visit * Reason Comments Follow Up Left knee Encounter Details Date Type Department Care Team Description 01/18/2023 Office Visit Orthopaedics [facility] [address] [place] [address] Zander Wilkins DO [address] [place] [address] Primary osteoarthritis of right knee*; Primary osteoarthritis of left knee Allergies Active Allergy Reactions Severity Noted Date Comments Acetaminophen 05/06/2005 headaches documented as of this encounter (statuses as of 01/18/2023) Medications Medication Sig Dispensed Refills Start Date [...] 24 Hour (Imdur)Indications:C oronary artery disease involving [place] coronary artery without angina pectoris TAKE ONE [...] 270 Capsule 0 07/08/2022 4 Active Tiotropium [place] Monohydrate 18 MCG Inhalation Capsule (Spiriva) INHALE [...] (toPROL XL)Indications:SVT (supraventricular tachycardia),NSVT (nonsustained ventricular tachycardia) ([facility]) TAKE ONE TABLET [...] 2.5 mg NEBULIZER PRN 02/13/2022 02/13/2023 Active lidocaine 1% 1 mL - triamcinolone acetonide 40 mg/mL 1 mL inj 2 mLIndications:Primary osteoarthritis of left knee 2 mL IJ ONCE 01/18/2023 01/18/2023 Ended documented as of this encounter (statuses as of 01/18/2023) Active Problems Problem Noted Date Diabetic peripheral [...] Per CKD protocol AAA (abdominal aortic aneurysm) 03/12/20 21 Overview: 4.1 cm AAA noted on PET CT 05/29/20 Aortic valve stenosis 11/30/2019 NSVT (nonsustained ventricular tachycard ia) 11/13/2019 Carotid stenosis, non-symptomatic 2019 COPD, group D, by GOLD 2017 classificati on 05/30/2019 Overview: Per COPD GOLD Classification Dyslipidemia 02/07/2019 Peripheral arterial disease 12/28/2018 Old [place] (myocardial infarction) 8 YISSEL treated with BiPAP 01/03/2018 Overview: Wears BiPAP at night Type 2 diabetes mellitus with hemoglobin A1c goal of less than 8.0% 10/23/2014 Overview: ICD-10 update of inactive term CVA, old, 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 PTSD (post-traumatic stress disorder) Gastroesophageal reflux disease without esophagitis 01/05/2014 Coronary artery disease invo lving [place] coronary artery of [place] heart without angina pectoris 11/27/2013 Tobacco abuse 11/27/2013 HTN, goal below 130/80 03/06/2009 Overview: Modified per HTN protocol #16. documented as of this encounter (statuses as of 01/18/2023) Resolved Problems Problem Noted Date Resolved Date [...] as of this encounter (statuses as of 01/18/2023) Immunizations Name Administration Dates Next Due COVID-19 [...] encounter Progress Notes * Zander Wilkins, - 01/18/2023 2:45 PM EDT Walter Don [id number] Walter Don is a 77 year old male who presents for follow up of bilateral knee injury to [facility]. Walter Don is here with his/her Last had Durolane injection 07/27/22 TODAY:feel sloan kramer id doing ell 80+ %, but left minimal benefit, would like to talk about other options Past Medical History: Diagnosis Date Anemia of [...] obstructive pulmonary disease) (HCC) COPD with emphysema ([facility]) Depression with anxiety 06/05/2022 Diabetic peripheral neuropathy ([facility]) 01/15/2023 Diverticulosis of large intestine without hemorrhage 01/15/2023 Dyslipidemia 02/07/2019 HTN, goal below 130/80 03/06/2009 Modified per HTN protocol #16. HTN, goal to be determined Lung cancer ([facility]) Obesity, Class I, BMI 30.0-34.9 (see actual BMI) 06/04/2021 Obesity, Class II, BMI 35-39.9, isolated (see actual BMI) 12/02/2021 OTHER diabetes Overweight (BMI 25.0-29.9) 09/09/2022 Sleep apnea, obstructive Type 2 diabetes mellitus with hemoglobin A1c goal of less than 8.0% ([facility]) 10/23/2014 ICD-10 update of inactive term Physical Exam Gait and Station: slightly antalgic Knee exam, bilateral Effusion: negative on Bilateral Palpation: tenderness to palpation diffuse on the Left medial at its greatest ROM: R - Flexion - 120 degrees, Extension - 0 degrees L - Flexion - 120 degrees, Extension -0 degrees R- Strength: Extension - 5/5 Flexion - 5/5 L - Strength: Extension - 5/5 Flexion - 5/5 Radiology : repeat not indicated, I did review films from 06/05/22 with ember and Assessment and Plan: will do steroid and TKA consult for left, f/u as needed for right Primary osteoarthritis of right knee (Primary) Primary osteoarthritis of left knee - ORTHOPAEDICS REFERRAL OP - INJECT MAJOR JX/BURSA W/O US GUIDE - lidocaine 1% 1 mL - triamcinolone acetonide 40 mg/mL 1 mL inj 2 mL I spent a total of 15 minutes on this date of service in preparation, delivery, and documentation of the care provided to the above patient, excluding time spent on the performance of a procedure or other separately billable services Zander Wilkins DO Primary Care Sports Medicine Orthopaedics [facility] [address] [place] [address] Procedure note (knee injection), left : Time out: Prior to injection, a time out was called to confirm the administration of appropriate medicine, patient name, procedure and confirm to the best of our ability and knowledge the presence of any necessary risks and benefits. Patient verbalizes understanding. proper approach defined Sterile techinique applied. Skin sterilized with alcohol swab. Knee injected using 1.5 inch, 22 gauge needle. Injected with lidocaine 1% 1 mL - triamcinolone acetonide 40 mg/mL 1 mL inj 2 mL Patient tolerated procedure with no significant bleeding or adverse reaction. Patient instructed to call or return to clinic for fever or warmth and redness at injection site for potential infection. Patient also advised as to potential for steroid flare reaction including increased pain and redness at injection site which should be treated with ice and resolve within 24 hours. Zander Wilkins DO documented in this encounter Nursing Notes * BONNY Vega - 01/18/2023 2:41 PM EDT Follow up left knee pain. documented in this encounter Plan of Treatment Upcoming Encounters Date Type Specialty Care Team Description 01/27/2023 Hospital Encounter Surgery Pb Alexander DO [address] [place] [address] 01/27/2023 Surgery Surgery Pb Alexander DO [address] [place] [address] DESTROY LUMBAR SACRAL NERVE IMAGING SINGLE 02/15/2023 Office Visit Orthopedics Abe Prater MD [address] [place] [address] 02/26/2023 Office Visit Podiatry Bettye Herrmann, DPM [address] [place] [address] 03/10/2023 Office Visit Cardiology Deisy Aguirre CRNP [address] [place] [address] 04/26/2023 Office Visit Orthopedics Zander Wilkins DO [address] [place] [address] 05/05/2023 Office Visit Gastroenterology Agnes Bowers CRNP [address] [place] [address] 07/08/2023 Imaging Radiology 07/13/2023 Office Visit Radiation Oncology Shawna Johnson MD [address] [place] [address] [place] [address] 07/19/2023 Office Visit Family Medicine Johnnie Newby MD [address] [place] [address] Scheduled Orders Name Type Priority Associated Diagnoses Orde r Schedule INJECT MAJOR JX/BURSA W/O US GUIDE Procedures Routine Primary osteoarthritis of left knee Ordered: 01/18/2023 Scheduled Procedures Name Priority Associated Diagnoses Date/Ti me DESTROY LUMBAR SACRAL NERVE IMAGING SINGLE 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 radiculopathy 01/27/2023 2:20 PM EDT DESTROY LUMBAR SACRAL NERVE IMAGING ADD'L 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 radiculopathy 01/27/2023 2:20 PM EDT Scheduled Referrals Name Type Priority Associated Diagnoses Orde r Schedule ORTHOPAEDICS REFERRAL OP Referral Within 10 days (routine) Primary osteoarthritis of left knee Ordered: 01/18/2023 Health Maintenance Due Date Last Done Comments Depression Screening 05/31/2020 05/31/2019 COVID-19 Vaccine (4 - Pfizer series) 04/07/2022 02/10/2022, 07/13/2020, 06/17/2020 DIABETES-EYE EXAM 04/09/2023 04/09/2022, , 03/30/2020, Additional history exists DISCUSS TOBACCO CESSATION (REFER TO SMARTSET #4935) 05/01/2023 05/01/2022, 02/13/2022 CKD PHOS USE SMARTSET 80539 06/05/202305/20, 06/03/2021, 06/04/2020, Additional history exists GFR [...] Additional history exists CKD HGB USE SMARTSET 03180 01/19/202401/18, 01/15/2023, 01/08/2023, Additional history exists Pneumococcal [...] this encounter Medical Devices Implanted Type Area Sports Development Officer Device Identifier Shelf Expiration Date Model / Serial / Lot Lens Intraoc 24.0 - [id number] - [id number] Implanted:Qty: 1 on 06/01/2017 by Nikhil Bolton MD at OR [facility] Left: Eye [employer] 07/17/2021 [id number] / [id number] / [id number] Lens Intraoc 24.0 - [id number] - [id number] Implanted:Qty: 1 on 06/08/2017 by Nikhil Bolton MD at OR [facility] Right: Eye [employer]OM[employer] 07/17/2021 [id number] / [id number] / [id number] documented as of this encounter Visit Diagnoses Diagnosis Primary osteoarthritis of right knee- Primary Primary localized osteoarthrosis, lower leg Primary osteoarthritis of left knee Primary localized osteoarthrosis, lower leg 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 radiculopathy Lumbosacral spondylosis without myelopathy documented in this encounter Administered Medications Inactive Administered Medications - up to 3 most recent administrations Medication Order MAR Action Action Date Dose Rate Site lidocaine 1% 1 mL - triamcinolone acetonide 40 mg/mL 1 mL inj 2 mL 2 mL, Injection, ONCE, On 01/18/23 at 1545, For 1 dose, Lidocaine 1% 1mL Triamcinolone Acetonide 40 mg/mL 1 mL (Final concentration = 20 mg/mL) REFRIGERATE and SHAKE WELL Given 01/18/2023 3:16 PM EDT 2 mL Knee Left documented in this encounter Advance Directives Documents on File Type Date Recorded Patient Slot Supervisor Expl anation Advance Directives and Yu Watkins [...] and were consensually agreed upon. Care Teams Stationary Engineer Apprentice Relationship Specialty Start Date End Date Johnnie Newby MD [address] [place] [address] PCP - General Family Medicine 09/13/20 documented as of this encounter
--- OUTSIDE RECORDS SUMMARY | 2023-04-15 00:16 | External Medical Summary | Summary of Care ---
Author Name Unknown Organization [facility] Address [address] [place] [address] Phone [phone] Care Team Providers Care Rotary Engine Assembler Name Role Phone Johnnie Newby MD Primary Care Provider [phone] Reason for Referral * Evaluate & Treat - Unlimited Visits (Within 10 days (routine)) - Authorized Specialty Diagnoses / Procedures Referred By Treva judd Referred To Contact Orthopaedic Surgery / Orthopedics Diagnoses Primary osteoarthritis of left knee Zander Wilkins DO [address] [place] [address] Referral ID Status Reason Start Date Expiration Date Visits Requested Visits Authorized [id number] Authorized Specialty Services Required 01/18/2023 999 999 [...] Care Team Description 01/18/2023 Office Visit Orthopaedics [facility] [address] [place] [address] Zander Wilkins DO [address] [place] [address] Primary osteoarthritis of right knee*; Primary osteoarthritis [...] hemoglobin A1c goal of less than 7.0% ([facility]) TEST ONCE DAILY 100 Strip 5 03/02/2018 [...] 24 Hour (Imdur)Indications:C oronary artery disease involving [place] coronary artery without angina pectoris TAKE ONE [...] 270 Capsule 0 07/08/2022 4 Active Tiotropium [place] Monohydrate 18 MCG Inhalation Capsule (Spiriva) INHALE ONE CAPSULE VIA HANDIHALER EVERY MORNING. DO NOT SWALLOW CAPSULE. 90 Capsule 3 06/26/2022 4 Active Fluticasone-Salmeter ol 230-21 MCG/ACT Inhalation Aerosol (Advair)Indications: COPD, group B, by GOLD 2017 classification ([facility]) INHALE TWO PUFFS BY MOUTH EVERY MORNING AND INHALE TWO PUFFS BY MOUTH AT BEDTIME, RINSE MOUTH AFTER USE 36 g 3 04/17/2022 3 Active Roflumilast 500 MCG Oral Tablet (Daliresp)Indication s:COPD, group D, by GOLD 2017 classification ([facility]) TAKE ONE TABLET BY MOUTH EVERY MORNING [...] (toPROL XL)Indications:SVT (supraventricular tachycardia),NSVT (nonsustained ventricular tachycardia) ([facility]) TAKE ONE TABLET BY MOUTH EVERY DAY [...] esophagitis 01/05/2014 Coronary artery disease invo lving [place] coronary artery of [place] heart without angina pectoris 11/27/2013 Tobacco abuse [...] - 01/18/2023 2:45 PM EDT Walter Don [id number] Walter Don is a 77 year old male who presents for follow up of bilateral knee injury to [facility]. Walter Don is here with [...] obstructive pulmonary disease) (HCC) COPD with emphysema ([facility]) Depression with anxiety 06/05/2022 Diabetic peripheral neuropathy ([facility]) 01/15/2023 Diverticulosis of large intestine without hemorrhage 01/15/2023 Dyslipidemia 02/07/2019 HTN, goal below 130/80 03/06/2009 Modified per HTN protocol #16. HTN, goal to be determined Lung cancer ([facility]) Obesity, Class I, BMI 30.0-34.9 (see actual BMI) 06/04/2021 Obesity, Class II, BMI 35-39.9, isolated (see actual BMI) 12/02/2021 OTHER diabetes Overweight (BMI 25.0-29.9) 09/09/2022 Sleep apnea, obstructive Type 2 diabetes mellitus with hemoglobin A1c goal of less than 8.0% ([facility]) 10/23/2014 ICD-10 update of inactive term Physical [...] Wilkins DO Primary Care Sports Medicine Orthopaedics [facility] [address] [place] [address] Procedure note (knee injection), left : Time [...] Pb Alexander DO [address] [place] [address] 01/27/2023 Surgery Surgery Pb Alexander DO [address] [place] [address] DESTROY LUMBAR SACRAL NERVE IMAGING SINGLE 02/15/2023 Office Visit Orthopedics Abe Prater MD [address] [place] [address] 02/26/2023 Office Visit Podiatry Bettye Herrmann, DPM [address] [place] [address] 03/10/2023 Office Visit Cardiology Deisy Aguirre CRNP [address] [place] [address] 04/26/2023 Office Visit Orthopedics Zander Wilkins DO [address] [place] [address] 05/05/2023 Office Visit Gastroenterology Agnes Bowers CRNP [address] [place] [address] 07/08/2023 Imaging Radiology 07/13/2023 Office Visit Radiation Oncology Shawna Johnson MD [address] [place] [address] [place] [address] 07/19/2023 Office Visit Family Medicine Johnnie Newby MD [address] [place] [address] Scheduled Orders Name Type Priority Associated Diagnoses [...] exists DISCUSS TOBACCO CESSATION (REFER TO SMARTSET #9682) 05/01/2023 05/01/2022, 02/13/2022 CKD PHOS USE SMARTSET 82668 06/05/202305/20, 06/03/2021, 06/04/2020, Additional history exists GFR [...] Additional history exists CKD HGB USE SMARTSET 94628 01/19/202401/18, 01/15/2023, 01/08/2023, Additional history exists Pneumococcal [...] this encounter Medical Devices Implanted Type Area Counseling Department Chair Device Identifier Shelf Expiration Date Model / Serial / Lot Lens Intraoc 24.0 - [id number] - [id number] Implanted:Qty: 1 on 06/01/2017 by Nikhil Bolton MD at OR [facility] Left: Eye [employer]OM[employer] 07/17/2021 [id number] / [id number] / [id number] Lens Intraoc 24.0 - [id number] - [id number] Implanted:Qty: 1 on 06/08/2017 by Nikhil Bolton MD at OR [facility] Right: Eye [employer]OM[employer] 07/17/2021 [id number] / [id number] / [id number] documented as of this encounter Visit Diagnoses [...] Documents on File Type Date Recorded Patient Facility Maintenance Mechanic Expl anation Advance Directives and Yu Watkins [...] and were consensually agreed upon. Care Teams Rotary Engine Assembler Relationship Specialty Start Date End Date Johnnie Newby MD [address] [place] [address] PCP - General Family Medicine 09/13/20 documented as of this encounter
--- OUTSIDE RECORDS SUMMARY | 2023-04-15 00:16 | External Medical Summary | Summary of Care ---
Author Name Unknown Organization [facility] Address [address] [place] [address] Phone [phone] Care Team Providers Care Coil Maker Name Role Phone Johnnie Newby MD Primary Care Provider [phone] Reason for Visit * Reason Comments Outpatient Testing Encounter Details Date Type Department Care Team Description 01/18/2023 Laboratory Laboratory, [facility] [address] [place] [address] [facility] [address] [place] [address] PAF (paroxysmal atrial fibrillation) ([facility]); Iron deficiency anemia, unspecified iron deficiency anemia type; Encounter for long-term (current) use of medications Allergies Active Allergy Reactions Severity Noted Date [...] hemoglobin A1c goal of less than 7.0% ([facility]) TEST ONCE DAILY 100 Strip 5 03/02/2018 Active Ventolin HFA 108 (90 Base) MCG/ACT Inhalation Aerosol SolutionIndications: COPD, moderate ([facility]) Take 2 Puffs by mouth 4 times [...] 24 Hour (Imdur)Indications:C oronary artery disease involving [place] coronary artery without angina pectoris TAKE ONE [...] 270 Capsule 0 07/08/2022 4 Active Tiotropium [place] Monohydrate 18 MCG Inhalation Capsule (Spiriva) INHALE ONE CAPSULE VIA HANDIHALER EVERY MORNING. DO NOT SWALLOW CAPSULE. 90 Capsule 3 06/26/2022 4 Active Fluticasone-Salmeter ol 230-21 MCG/ACT Inhalation Aerosol (Advair)Indications: COPD, group B, by GOLD 2017 classification ([facility]) INHALE TWO PUFFS BY MOUTH EVERY MORNING AND INHALE TWO PUFFS BY MOUTH AT BEDTIME, RINSE MOUTH AFTER USE 36 g 3 04/17/2022 3 Active Roflumilast 500 MCG Oral Tablet (Daliresp)Indication s:COPD, group D, by GOLD 2017 classification ([facility]) TAKE ONE TABLET BY MOUTH EVERY MORNING [...] (toPROL XL)Indications:SVT (supraventricular tachycardia),NSVT (nonsustained ventricular tachycardia) ([facility]) TAKE ONE TABLET BY MOUTH EVERY DAY [...] CKD protocol AAA (abdominal aortic aneurysm) 06/29/19 21 Overview: 4.1 cm AAA noted on PET CT 05/29/20 Aortic valve stenosis 11/30/2019 NSVT (nonsustained ventricular tachycard ia) 11/13/2019 Carotid stenosis, non-symptomatic 2019 COPD, group D, by GOLD 2017 classificati on 05/30/2019 Overview: Per COPD GOLD Classification Dyslipidemia 02/07/2019 Peripheral arterial disease 12/28/2018 Old [place] (myocardial infarction) 8 YISSEL treated with BiPAP 01/03/2018 Overview: Wears BiPAP at night Type 2 diabetes mellitus with hemoglobin A1c goal of less than 8.0% 10/23/2014 Overview: ICD-10 update of inactive term CVA, old, 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 PTSD (post-traumatic stress disorder) Gastroesophageal reflux disease without esophagitis 01/05/2014 Coronary artery disease invo lving [place] coronary artery of [place] heart without angina pectoris 11/27/2013 Tobacco abuse [...] mRNA, LNP-s, No Pre serve, 2-Dose Series ([employer]) 02/10/2022,07/13/2020,06/17/2020 Pneumococcal Conjugate Vacc, 13 Valent (Prevnar) [...] Wilkins DO [address] [place] [address] Walter Don 01/27/2023 Hospital Encounter Surgery Pb Alexander DO [address] [place] [address] 01/27/2023 Surgery Surgery Pb Alexander DO [address] [place] [address] DESTROY LUMBAR SACRAL NERVE IMAGING SINGLE 02/26/2023 Office Visit Podiatry Bettye Herrmann DPM [address] [facility] [place] [address] 03/10/2023 Office Visit Cardiology Deisy Aguirre CRNP [address] [place] [address] 05/05/2023 Office Visit Gastroenterology Agnes Bowers CRNP [address] [place] [address] 07/08/2023 Imaging Radiology 07/13/2023 Office Visit Radiation Oncology Shawna Johnson MD [address] [place] [address] 07/19/2023 Office Visit Family Medicine Johnnie Newby MD [address] [place] [address] Scheduled Procedures Name Priority Associated Diagnoses Date/Ti [...] 05/01/2023 05/01/2022, 02/13/2022 CKD PHOS USE SMARTSET 31392 06/05/202305/20, 06/03/2021, 06/04/2020, Additional history exists GFR [...] Additional history exists CKD HGB USE SMARTSET 46263 01/16/202401/18, 01/15/2023, 01/08/2023, Additional history exists Pneumococcal Vaccine: [...] this encounter Medical Devices Implanted Type Area Rubber Stamps And Dies Supervisor Device Identifier Shelf Expiration Date Model / Serial / Lot Lens Intraoc 24.0 - [id number] - [id number] Implanted:Qty: 1 on 06/01/2017 by Nikhil Bolton MD at OR [facility] Left: Eye [employer]OM[employer] 07/17/2021 [id number] / [id number] / [id number] Lens Intraoc 24.0 - [id number] - [id number] Implanted:Qty: 1 on 06/08/2017 by Nikhil Bolton MD at OR [facility] Right: Eye [employer]CH [employer] LOMB 07/17/2021 [id number] / [id number] / [id number] documented as of this encounter Procedures Procedure Name Priority Date/Time Associated Diagnosis Comments CBC Routine 01/18/2023 2:21 PM EDT PAF (paroxysmal atrial fibrillation) (HCC) Iron deficiency anemia, unspecified iron deficiency anemia type Encounter for long-term (current) use of medications documented in this encounter Results * (ABNORMAL) CBC (01/18/2023 2:21 PM EDT) WBC 6.09 4.00 - 10.80 K/uL 01/18/2023 2:37 PM EDT [facility] [place] 57[facility]10 RBC 3.33 4.50 - 5.25 M/uL 01/18/2023 2:37 PM EDT [facility] [place] [facility]10 HGB 9.2(L) 14.0 - 16.8 g/dL 01/18/2023 2:37 PM EDT [facility] [place] 57[facility]10 HCT 30.1(L) 40.0 - 48.4 % 01/18/2023 2:37 PM EDT [facility] [place] [facility]10 MCV 90.4 82.0 - 99.5 fL 01/18/2023 2:37 PM EDT [facility] [place] [facility]10 MCH 27.6 27.0 - 34.0 pg 01/18/2023 2:37 PM EDT [facility] [place] [facility]10 MCHC 30.6 32.0 - 36.0 g/dL 01/18/2023 2:37 PM EDT [facility] [place] [facility]10 RDW 18.5 11.5 - 15.5 % 01/18/2023 2:37 PM EDT [facility] [place] [facility]10 PLT 282 140 - 400 K/uL 01/18/2023 2:37 PM EDT [facility] [place] [facility]10 MPV 9.1 6.6 - 11.1 fL 01/18/2023 2:37 PM EDT [facility] [place] [facility]10 Blood Venous blood specimen / Unknown Venipuncture / Unknown 01/18/2023 2:21 PM EDT 01/18/2023 2:21 PM EDT Deisy SAEED LAB BLOOD ORDER [facility] [place] 57[facility]10 [address] [place] [address] documented in this encounter Visit Diagnoses Diagnosis PAF (paroxysmal atrial fibrillation) (HCC) Atrial fibrillation Iron deficiency anemia, unspecified iron deficiency anemia type Encounter for long-term (current) use of medications Encounter for long-term (current) use of other medications 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 radiculopathy Lumbosacral spondylosis without myelopathy documented in this encounter Advance Directives Documents on File Type Date Recorded Patient Concessions Manager Expl 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 Care Teams Coil Maker Relationship Specialty Start Date End Date Johnnie Newby MD [address] [place] [address] PCP - General Family Medicine 09/13/20 documented as of this encounter
--- OUTSIDE RECORDS SUMMARY | 2023-04-15 00:17 | External Medical Summary ---
Author Name Unknown Address Unknown Organization K01:LABORATORY [facility] - [address] [facility] [address] Laboratory Report Ordering Provider Test Date Status ARTEM LOPEZ 01/15/2023 11:14:11 Final Observation Date Value Abnormality Reference (Units ) Status HbA1C 01/15/2023 11:14:11 6.0 Above high normal 4. 0-5.6 (%) Final The use of HbA1c to monitor glycemic status is based on normal hemoglobin and HbA composition. This test should not be used in patients with abnormal hemoglobin that affects the half life of the red blood cell or the in vivo glycation rates. Glucose, estimated average 01/15/2023 11:14:11 126 Above high normal <126 (mg/dL) Michel palafox Performing Location LABORATORY [facility] - [address] [facility] [address]
--- OUTSIDE RECORDS SUMMARY | 2023-04-15 00:17 | External Medical Summary ---
Author Name Unknown Address Unknown Organization : Laboratory Report Ordering Provider Test Date Status SAUL MANLEY 01/14/2023 14:06:33 Final Observation Date Value Abnormality Reference (Units ) Status Glucose Point of Care 01/14/2023 14:06:33 124 Above high normal 70-120 (mg/dL) Final Performing Location
--- OUTSIDE RECORDS SUMMARY | 2023-04-15 00:17 | External Medical Summary | Summary of Care ---
Author Name Unknown Organization [facility] Address [address] [place] [address] Phone [phone] Care Team Providers Care Manager Mobile Name Role Phone Johnnie Newby MD Primary Care Provider [phone] Reason for Visit * Reason Comments Outpatient Testing Encounter Details Date Type Department Care Team Description 01/15/2023 Laboratory Laboratory, [facility] [address] [place] [address] [facility] [address] [place] [address] PAF (paroxysmal atrial fibrillation) ([facility]); Iron deficiency anemia, unspecified iron deficiency anemia type; Encounter for long-term (current) use of medications; Type 2 diabetes mellitus with hemoglobin A1c goal of less than 8.0% ([facility]); HTN, goal below 140/90 Allergies Active Allergy Reactions Severity Noted Date [...] A1c goal of less than 7.0% ([facility]) TEST ONCE DAILY 100 Strip [...] 270 Capsule 0 07/08/2022 4 Active Tiotropium [place] Monohydrate 18 MCG Inhalation Capsule (Spiriva) INHALE ONE CAPSULE VIA HANDIHALER EVERY MORNING. DO NOT SWALLOW CAPSULE. 90 Capsule 3 06/26/2022 4 Active Fluticasone-Salmeter ol 230-21 MCG/ACT Inhalation Aerosol (Advair)Indications: COPD, group B, by GOLD 2017 classification ([facility]) INHALE TWO PUFFS BY MOUTH EVERY MORNING AND INHALE TWO PUFFS BY MOUTH AT BEDTIME, RINSE MOUTH AFTER USE 36 g 3 04/17/2022 3 Active Roflumilast 500 MCG Oral Tablet (Daliresp)Indication s:COPD, group D, by GOLD 2017 classification ([facility]) TAKE ONE TABLET BY MOUTH [...] XL)Indications:SVT (supraventricular tachycardia),NSVT (nonsustained ventricular tachycardia) ([facility]) TAKE ONE TABLET BY MOUTH [...] MG/3ML) 0.083% inhalation solution 2.5 mgIndications:COPD, severe ([facility]) 2.5 mg NEBULIZER Q4H PRN 07/08/2018 Active [...] Dyslipidemia 02/07/2019 Peripheral arterial disease 12/28/2018 Old NH (myocardial infarction) 8 YISSEL treated with BiPAP 01/03/2018 Overview: Wears BiPAP at night Type 2 diabetes mellitus with hemoglobin A1c goal of less than 8.0% 10/23/2014 Overview: ICD-10 update of inactive term CVA, old, 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 PTSD (post-traumatic stress disorder) Gastroesophageal reflux disease without esophagitis 01/05/2014 Coronary artery disease invo lving afognak [...] Wilkins DO [address] [place] [address] 01/27/2023 Hospital Encounter Surgery Pb Alexander DO [address] [place] [address] 01/27/2023 Surgery Surgery Pb Alexander DO [address] [place] [address] DESTROY LUMBAR SACRAL NERVE IMAGING SINGLE 02/26/2023 Office Visit Podiatry Bettye Herrmann DPM [address] [place] [address] 03/10/2023 Office Visit Cardiology Deisy Aguirre CRNP [address] [place] [address] 05/05/2023 Office Visit Gastroenterology Agnes Bowers CRNP [address] [place] [address] 07/08/2023 Imaging Radiology 07/13/2023 Office Visit Radiation Oncology Shawna Johnson MD [address] [place] [address] [place] [address] 07/19/2023 Office Visit Family Medicine Johnnie Newby MD [address] [place] [address] Pending Results Name Type Priority Associated Diagnoses Date /Time HEMOGLOBIN A1C Lab Routine Type 2 diabetes mellitus with hemoglobin A1c goal of less than 8.0% ([facility]) 01/15/2023 11:14 AM EDT ALBUMIN / CREATININE RATIO, URINE Lab Routine HTN, goal below 140/90 01/15/2023 11:32 AM EDT Scheduled Procedures Name Priority Associated Diagnoses Date/Ti [...] exists DISCUSS TOBACCO CESSATION (REFER TO SMARTSET #5241) 05/01/2023 05/01/2022, 02/13/2022 CKD PHOS USE SMARTSET 51799 06/05/202305/20, 06/03/2021, 06/04/2020, Additional history exists GFR 06/17/2023 12/17/2022, 05/20, 12/02/2021, Additional history exists Diabetic Foot Exam 09/10/2023 09/09/2022, 1 , 11/12/2017, Additional history exists DTaP,Tdap,and Td Vaccines (2 - Td or Tdap) 01/06/2024 01/05/2014 COLONOSCOPY-ANNUAL AGES 18-100 01/15/2024 01/14/2023, 03/05/2022, 03/05/2022, Additional history exists O2 ASSESSMENT COMPLETED IN PAST YEAR FOR COPD 01/15/2024 01/14/2023 CKD HGB USE SMARTSET 77211 01/16/202401/15, 01/08/2023, 12/17/2022, Additional history exists Pneumococcal [...] this encounter Medical Devices Implanted Type Area Learning Technologist Device Identifier Shelf Expiration Date Model / Serial / Lot Lens Intraoc 24.0 - [id number] - [id number] Implanted:Qty: 1 on 06/01/2017 by Nikhil Bolton MD at [facility] Left: Eye [employer] 07/17/2021 [id number] / [id number] / [id number] Lens Intraoc 24.0 - [id number] - [id number] Implanted:Qty: 1 on 06/08/2017 by Nikhil Bolton MD at [facility] Right: Eye [employer] 07/17/2021 [id number] / [id number] / [id number] documented as of this encounter Procedures Procedure Name Priority Date/Time Associated Diagnosis Comments CBC Routine 01/15/2023 11:14 AM EDT PAF (paroxysmal atrial fibrillation) (HCC) Iron deficiency anemia, unspecified iron deficiency anemia type Encounter for long-term (current) use of medications documented in this encounter Results * (ABNORMAL) CBC (01/15/2023 11:14 AM EDT) WBC 6.60 4.00 - 10.80 K/uL 01/15/2023 11:29 AM EDT [facility] RBC 3.46 4.50 - 5.25 M/uL 01/15/2023 11:29 AM EDT [facility] HGB 9.5(L) 14.0 - 16.8 g/dL 01/15/2023 11:29 AM EDT [facility] HCT 31.5(L) 40.0 - 48.4 % 01/15/2023 11:29 AM EDT [facility] MCV 91.0 82.0 - 99.5 fL 01/15/2023 11:29 AM EDT [facility] MCH 27.5 27.0 - 34.0 pg 01/15/2023 11:29 AM EDT [facility] MCHC 30.2 32.0 - 36.0 g/dL 01/15/2023 11:29 AM EDT [facility] RDW 18.5 11.5 - 15.5 % 01/15/2023 11:29 AM EDT [facility] PLT 258 140 - 400 K/uL 01/15/2023 11:29 AM EDT [facility] MPV 9.2 6.6 - 11.1 fL 01/15/2023 11:29 AM EDT [facility] Blood Venous blood specimen / Unknown Venipuncture / Unknown 01/15/2023 11:14 AM EDT 01/15/2023 11:14 AM EDT Deisy Aguirre [facility] BLOOD ORDER [facility] [place] [address] documented in this encounter Visit Diagnoses Diagnosis PAF (paroxysmal atrial fibrillation) (HCC) Atrial fibrillation Iron deficiency anemia, unspecified iron deficiency anemia type Encounter for long-term (current) use of medications Encounter for long-term (current) use of other medications Type 2 diabetes mellitus with hemoglobin A1c goal of less than 8.0% (HCC) HTN, goal below 140/90 Unspecified essential hypertension 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 radiculopathy Lumbosacral spondylosis without myelopathy documented in this encounter Advance Directives Documents on File Type Date Recorded Patient Wealth Management Consultant Expl anation Advance Directives and Livin [...] were consensually agreed upon. Care Teams Manager Mobile Relationship Specialty Start Date End Date Johnnie Newby MD [address] [place] [address] PCP - General Family Medicine 09/13/20 documented as of this encounter
--- OUTSIDE RECORDS SUMMARY | 2023-04-15 00:17 | External Medical Summary | Summary of Care ---
Author Name Unknown Organization [facility] Address [address] [place] [address] Phone [phone] Care Team Providers Care Dean Of Men Name Role Phone Johnnie Newby MD Primary Care Provider [phone] Reason for Visit * Reason Comments Follow Up 4 week follow up. Do ing about the same with medication changes. Encounter Details Date Type Department Care Team Description 01/11/2023 Office Visit Cardiology, [facility] [address] [facility] [address] [facility]irre [facility] [address] [facility] [address] PAF (paroxysmal atrial fibrillation) ([facility])*; Coronary artery disease involving mil[place] coronary artery of mil[place] heart without angina pectoris; HTN, goal below 130/80; Iron deficiency anemia, unspecified iron deficiency anemia type; Encounter for long-term (current) use of medications Allergies Active Allergy Reactions Severity Noted Date Comments Acetaminophen 05/06/2005 headaches documented as of this encounter (statuses as of 01/14/2023) Medications Medication Sig Dispensed Refills Start Date [...] A1c goal of less than 7.0% ([facility]) TEST ONCE DAILY 100 Strip 5 8 Active Ventolin HFA 108 (90 Base) MCG/ACT Inhalation Aerosol SolutionIndication s:COPD, moderate ([facility]) Take 2 Puffs by mouth 4 times [...] 24 Hour (Imdur)Indications :Coronary artery disease involving [place] coronary artery without angina pectoris TAKE ONE TABLET BY MOUTH EVERY MORNING 90 Tablet 3 3 09/18/19 24 Active Furosemide 40 MG Oral Tablet (Lasix)Indications :HTN, goal below 140/90 TAKE ONE TABLET BY MOUTH EVERY MORNING 100 Tablet 1 3 09/18/19 24 Active Lisinopril 20 MG Oral Tablet (Prinivil)Indicati ons:HTN, goal below 140/90 TAKE ONE TABLET BY MOUTH EVERY MORNING 90 Tablet 2 3 09/18/19 24 Active metFORMIN HCl 1000 MG Oral Tablet (Glucophage) TAKE ONE TABLET BY MOUTH EVERY MORNING 100 Tablet 1 3 09/03/19 24 Active Mirtazapine 15 MG Oral Tablet (Remeron) TAKE ONE-HALF TABLET BY MOUTH EVERY NIGHT 45 Tablet 0 3 08/17/19 24 Active FLUoxetine HCl 20 MG Oral Capsule (PROzac) TAKE THREE CAPSULES BY MOUTH EVERY MORNING 270 Capsule 0 3 07/08/19 24 Active Tiotropium [place] Monohydrate 18 MCG Inhalation Capsule (Spiriva) INHALE ONE CAPSULE VIA HANDIHALER EVERY MORNING. DO NOT SWALLOW CAPSULE. 90 Capsule 3 3 06/26/19 24 Active Mirtazapine 15 MG Oral Tablet (Remeron) TAKE ONE-HALF TABLET (7.5 MG.) BY MOUTH EVERY NIGHT 45 Tablet 0 3 05/06/19 24 Active Fluticasone-Salmet gume 230-21 MCG/ACT Inhalation Aerosol (Advair)Indication s:COPD, group B, by GOLD 2017 classification ([facility]) INHALE TWO PUFFS BY MOUTH EVERY MORNING AND INHALE TWO PUFFS BY MOUTH AT BEDTIME, RINSE MOUTH AFTER USE 36 g 3 2 04/17/20 23 Active FLUoxetine HCl 20 MG Oral Capsule (PROzac) take 3 caps by mouth every morning 270 Capsule 0 3 Active Mirtazapine 15 MG Oral Tablet (Remeron) take 1/2 tab (7.5mg) by mouth every night 45 Tablet 0 3 Active Roflumilast 500 MCG Oral Tablet (Daliresp)Indicati ons:COPD, group D, by GOLD 2017 classification ([facility]) TAKE ONE TABLET BY MOUTH EVERY [...] XL)Indications:SVT (supraventricular tachycardia),NSVT (nonsustained ventricular tachycardia) ([facility]) TAKE ONE TABLET BY MOUTH EVERY [...] symptoms resolve. 90 Tablet 3 3 Active Fluticasone Propionate 50 MCG/ACT Nasal Suspension (Flonase) Administer 2 Sprays into each nostril in the morning. 16 g 1 3 01/14/20 23 Discontinued FLUoxetine HCl 20 MG Oral Capsule (PROzac) TAKE THREE CAPSULES BY MOUTH EVERY MORNING 270 Capsule 0 2 01/15/20 23 Discontinued(Denis arrington preference/disc ontinuation) Hospital, Clinic, or Other Facility Administered Medication [...] as of this encounter (statuses as of 01/14/2023) Active Problems Problem Noted Date Gouty arthropathy 12/22/2022 Overweight (BMI 25.0-29.9) 09/09/2022 History of cardioembolic cerebrovascular accident (CVA) 06/09/2022 Depression with anxiety 06/05/2022 Malignant neoplasm of right upper lobe o f lung 08/29/2020 Cancer Staging:Clinical stage from 08/21/2020:Stage IA2(cT1b, cN0, cM0) - Signed by Shawna Johnson MD on 08/29/2020 Chronic kidney disease, stage 3a 021 Overview: Per CKD protocol AAA (abdominal aortic aneurysm) 06/29/19 21 Overview: 4.1 cm AAA noted on PET CT 05/29/20 Hypertensive kidney disease with stage 3 a chronic kidney disease 06/24/2020 Overview: Per CKD protocol - HTN + CKD III = conditions have assumed relationship per current coding guidelines. Aortic valve stenosis 11/30/2019 NSVT (nonsustained ventricular tachycard ia) 11/13/2019 Carotid stenosis, non-symptomatic 2019 COPD, group D, by GOLD 2017 classificati on 05/30/2019 Overview: Per COPD GOLD Classification Dyslipidemia 02/07/2019 Peripheral arterial disease 12/28/2018 Type 2 diabetes mellitus wit h diabetic neuropathy, without long-term current use of insulin 08/02/2018 Old MN (myocardial infarction) 8 YISSEL treated [...] esophagitis 01/05/2014 Coronary artery disease invo lving mille lacs coronary artery of mil[place]acs heart without angina pectoris 11/27/2013 Tobacco abuse 11/27/2013 HTN, goal below 130/80 03/06/2009 Overview: Modified per HTN protocol #16. documented as of this encounter (statuses as of 01/14/2023) Resolved Problems Problem Noted Date Resolved Date Obesity, Class II, BMI 35-39.9, isolated (see ac tual BMI) 12/02/2021 09/09/2022 Obesity, Class I, BMI 30.0-34.9 (see actual BMI) 06/04/2021 12/02/2021 Type 2 diabetes mellitus wit h stage 3a chronic kidney disease, without long-term current use of insulin 08/27/202005/20 Overview: Per CKD protocol Hypertensive kidney disease with chronic kidney disease stage III 11/16/2019 06/27/2020 Overview: HTN + CKD III = conditions have assumed relationship per current coding guidelines. Type 2 diabetes mellitus with peripheral artery disease 05/19/2019 06/03/2022 COPD, group B, by GOLD 2017 classification 08/0802/07/2019 Asthma with COPD 08/08/2018 02/07/2019 Ground glass opacity present on imaging of lung 08/03/2018 09/11/2020 Pulmonary emphysema 08/02/2018 05/07/2020 Diabetes mellitus with stage 3 chronic kidney [...] as of this encounter (statuses as of 01/14/2023) Immunizations Name Administration Dates Next Due COVID-19 [...] Sign Reading Time Taken Comments Blood Pressure 94/46 01/11/2023 1:51 PM EDT Pulse 64 01/11/2023 1:51 PM EDT Temperature - - Respiratory Rate 16 01/11/2023 1:51 PM EDT Oxygen Saturation - - Inhaled Oxygen Concentration - - Weight 90 kg (198 lb 8 oz) 01/11/2023 1:51 PM ED T Height - - Body Mass Index 28.89 01/08/2023 1:31 PM EDT documented in this encounter Progress Notes * CHRISTOPHE Carlos - 01/11/2023 2:00 PM EDT 01/11/2023 Cardiology Follow Up Primary Cream Dumper: Dr. Montoya Cardiac Problems: Coronary artery disease, stable Peripheral arterial disease History CVA Moderate aortic stenosis Posttraumatic stress disorder secondary medical procedures Adenocarcinoma of the lung treated with radiation. 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 Last seen in our office by Dr. Montoya on 12/08/22. He had undergone a zio monitor after a recent CVA and there was multiple episodes of SVT which may be consistent with PAF. His Aggrenox was discontinued and he was started on Eliquis 5mg BID along with ASA 81mg. Unfortunately since that time cardiology dept received labs back on this patient which demonstrated anemia. Additional iron studies show deficiency and FOCB was positive. Patient presents today feeling unchanged. He continues on all medication therpies. He was sent to see GI due to new unexplained iron deficiency anemia as well as patriciaith a plan for both EGD and colonscopy, this . REVIEW OF SYSTEMS: See HPI for pertinent [...] Take 2 Tablets by mouth at bedtime. ONETOUCH ULTRA BLUE STRP TEST ONCE DAILY 100 Strip 5 Ventolin HFA 108 (90 Base) MCG/ACT Inhalation Aerosol Solution Take 2 Puffs by mouth 4 times a day as needed for Shortness of Breath or Wheezing. 54 g 1 Gabapentin 300 MG Oral Capsule (Neurontin) Take by mouth 1 Capsule before bedtime. 90 Capsule 3 BiPAP every night at bedtime. Omeprazole 20 MG Oral Capsule Delayed Release (PriLOSEC) TAKE ONE CAPSULE BY MOUTH EVERY MORNING *NEED UPDATED LABS* 90 Capsule 1 Isosorbide Mononitrate ER 60 MG Oral Tablet Extended Release 24 Hour (Imdur) TAKE ONE TABLET BY MOUTH EVERY MORNING 90 Tablet 3 Furosemide 40 MG Oral Tablet (Lasix) TAKE ONE TABLET BY MOUTH EVERY MORNING 100 Tablet 1 Lisinopril 20 MG Oral Tablet (Prinivil) TAKE ONE TABLET BY MOUTH EVERY MORNING 90 Tablet 2 metFORMIN HCl 1000 MG Oral Tablet (Glucophage) TAKE ONE TABLET BY MOUTH EVERY MORNING 100 Tablet 1 Tiotropium [place] Monohydrate 18 MCG Inhalation Capsule (Spiriva) INHALE ONE CAPSULE VIA HANDIHALER EVERY MORNING. DO NOT SWALLOW CAPSULE. 90 Capsule 3 Mirtazapine 15 MG Oral Tablet (Remeron) TAKE ONE-HALF TABLET (7.5 MG.) BY MOUTH EVERY NIGHT 45 Tablet 0 Fluticasone-Salmeterol 230-21 MCG/ACT Inhalation Aerosol (Advair) INHALE TWO PUFFS BY MOUTH EVERY MORNING AND INHALE TWO PUFFS BY MOUTH AT BEDTIME, RINSE MOUTH AFTER USE 36 g 3 FLUoxetine HCl 20 MG Oral Capsule (PROzac) take 3 caps by mouth every morning 270 Capsule 0 Roflumilast 500 MCG Oral Tablet (Daliresp) TAKE [...] after until symptoms resolve. 90 Tablet 3 Mirtazapine 15 MG Oral Tablet (Remeron) Take one and half tablets by mouth daily at bedtime Vitamin B-12 1000 MCG Oral Tablet (Cyanocobalamin) Take 1 Tablet by mouth in the morning. (Patient not taking: Reported on 01/08/2023) Mirtazapine 15 MG Oral Tablet (Remeron) TAKE ONE-HALF TABLET BY MOUTH EVERY NIGHT 45 Tablet 0 FLUoxetine HCl 20 MG Oral Capsule (PROzac) TAKE THREE CAPSULES BY MOUTH EVERY MORNING 270 Capsule 0 FLUoxetine HCl 20 MG Oral Capsule (PROzac) TAKE THREE CAPSULES BY MOUTH EVERY MORNING 270 Capsule 0 Mirtazapine 15 MG Oral Tablet (Remeron) take 1/2 tab (7.5mg) by mouth every night 45 Tablet 0 Fluticasone Propionate 50 MCG/ACT Nasal Suspension (Flonase) USE TWO SPRAYS IN EACH NOSTRIL IN THE MORNING 16 g 1 Current Facility-Administered Medications Medication Dose Route Frequency [...] Landrum MD 2.5 mg at 04/14/22 1246 Past Medical History: Diagnosis Date Asthma Benign neoplasm of colon 05/28/2010 repeat [...] with emphysema (HCC) Depression with anxiety 06/05/2022 Dyslipidemia 02/07/2019 HTN, goal below 130/80 03/06/2009 Modified per HTN protocol #16. HTN, goal to be determined Lung cancer (HCC) Obesity, Class I, BMI 30.0-34.9 (see actual BMI) 06/04/2021 Obesity, Class II, BMI 35-39.9, isolated (see actual BMI) 12/02/2021 OTHER diabetes Overweight (BMI 25.0-29.9) 09/09/2022 Sleep apnea, obstructive Type 2 diabetes mellitus with hemoglobin A1c goal of less than 8.0% ([facility]) 10/23/2014 ICD-10 update of inactive term Family History Problem Relation Age of Onset Cancer Mother colon Gastro-intestinal disorder Sister crohn's No Known Problems Father Heart disease Brother Heart disease Brother Social History Socioeconomic History Marital status: Tobacco Use Smoking status: Every Day Packs/day: 1.50 Years: 69.00 Pack years: 103.50 Types: Cigarettes Smokeless tobacco: Never Tobacco comments: started age 7 Vaping Use Vaping Use: Never used Substance and Sexual Activity Alcohol use: No Drug use: No Social History Narrative No pets. No mold. OBJECTIVE/PHYSICAL EXAMINATION: BP 94/46 | Pulse 64 | Resp 16 | Wt 90 kg (198 lb 8 oz) | BMI 28.89 kg/m | BSA 2.1 m General: No acute distress. A+Ox3. HEENT: [...] ASSESSMENT/PLAN: 77 year old year old male 1. PAF (paroxysmal atrial fibrillation) (HCC) -Remains asymptomatic at this time -Continues on Toprol xl. -Recommend that patient hold Eliquis 2 days prior to procedure. Pending results, will plan for repeat CBC within one week and consideration for restarting Eliquis at that time with serial CBC to follow when restarting Eliquis. 2. Coronary artery disease involving mil[place] coronary artery of mil[place] heart without angina pectoris -Denies chest pain or other angina equivalent -Continue GDMT with Toprol xl, Lisinopril, ASA, and Atorvastatin 3. HTN, goal below 130/80 Well controlled. Continue Toprol xl, Lisinopril, imdur 4. Iron deficiency anemia, unspecified iron deficiency anemia type -Awaiting results of Colonoscopy and Endoscopy. Plan for procedures on 01/14/23 for definitive evaluation -Recommend repeat CBC within one week of procedures DISPOSITION: Follow up 2 months or if symptoms worsen/fail to improve. All questions were answered to the patients satisfaction. Patient advised to report to ED with any and all emergencies. The patient agrees to the above plan and will call with additional questions or concerns. CHRISTOPHE D[facility], [address] [address] I spent a total of 36 minutes on the date of service in preparation, delivery, and documentation ofthe care provided to Walter Don excluding any time spent in the performance of separately billed services. This chart was completed in part utilizing [employer] Speech Voice Recognition Software. Grammatical errors, random [...] documented in this encounter Nursing Notes * Manish Zee LPN - 01/11/2023 1:51 PM EDT Patient identified by full name and date of Chief Complaint Patient presents with Follow Up 4 week follow up. Doing about the same with medication changes. Examination Room: 7 Name: Walter Don Date of : (1945). Reason for Visit: 4 week follow up Interim Hospitalization(s): Denies Problems/Concerns: See chief complaint Chest Pain/SOB: See chief complaint [facility] Discussed: Yes My [...] Encounters Date Type Specialty Care Team Description 01/15/2023 Office Visit Family Medicine Johnnie Newby MD [address] [place] [address] 01/27/2023 Hospital Encounter Surgery Pb Alexander, [address] [place] [address] 01/27/2023 Surgery Surgery Pb Alexander DO [address] [place] [address] DESTROY LUMBAR SACRAL NERVE IMAGING SINGLE 02/26/2023 Office Visit Podiatry Bettye Herrmann DPM [address] [facility] [place] [id number] 03/10/2023 Office Visit Cardiology Deisy Aguirre CRNP [address] [place] [address] 05/05/2023 Office Visit Gastroenterology Agnes Bowers CRNP [address] [place] [address] 07/08/2023 Imaging Radiology 07/13/2023 Office Visit Radiation Oncology Shawna Johnson MD [address] [place] [address] [place] [address] Scheduled Orders Name Type Priority Associated Diagnoses Orde r Schedule CBC Lab Routine PAF (paroxysmal atrial fibrillation) (HCC) Iron deficiency anemia, unspecified iron deficiency anemia type Encounter for long-term (current) use of medications Expected: 01/21/2023, Expires: 01/15/2024 CBC Lab Routine PAF (paroxysmal atrial fibrillation) (HCC) Iron deficiency anemia, unspecified iron deficiency anemia type Encounter for long-term (current) use of medications Expected: 01/28/2023, Expires: 01/15/2024 Scheduled Procedures Name Priority Associated Diagnoses Date/Ti me COLONOSCOPY FLEXIBLE PROXIMA L DIAGNOSTIC Recall History of colon polyps Other iron deficiency anemia 01/14/2023 2:25 PM EDT ESOPHAGOGASTRODUODENOSCOPY ( EGD), FLEXIBLE, TRANSORAL, DIAGNOSTIC Recall History of colon polyps Other iron deficiency anemia 01/14/2023 2:25 PM EDT DESTROY LUMBAR SACRAL NERVE IMAGING SINGLE 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 radiculopathy 01/27/2023 2:20 PM EDT DESTROY LUMBAR SACRAL NERVE IMAGING ADD'L 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 radiculopathy 01/27/2023 2:20 PM EDT Health Maintenance Due Date Last Done Comments Depression Screening 05/31/2020 05/31/2019 COVID-19 Vaccine (4 - Pfizer series) 04/07/2022 02/10/2022, 07/13/2020, 06/17/2020 Albumin/Creatinine Ratio 06/04/2022 022, 04/04/2018, 11/10/2016, Additional history exists HbA1c 12/03/2022 06/05/2022, 11/17, 06/03/2021, Additional history exists DIABETES-EYE EXAM 04/09/2023 04/09/2022, , 03/30/2020, Additional history exists DISCUSS TOBACCO CESSATION (REFER TO SMARTSET #3291) 05/01/2023 05/01/2022, 02/13/2022 CKD PHOS USE SMARTSET 27993 06/05/202305/20, 06/03/2021, 06/04/2020, Additional history exists GFR 06/17/2023 12/17/2022, 05/20, 12/02/2021, Additional history exists Diabetic Foot Exam 09/10/2023 09/09/2022, 1 , 11/12/2017, Additional history exists DTaP,Tdap,and Td Vaccines (2 - Td or Tdap) 01/06/2024 01/05/2014 CKD HGB USE SMARTSET 03126 01/09/202401/08, 12/17/2022, 07/17/2021, Additional history exists COLONOSCOPY-ANNUAL AGES 18-100 01/15/2024 01/14/2023, 03/05/2022, 03/05/2022, Additional history exists O2 ASSESSMENT COMPLETED IN PAST YEAR FOR COPD 01/15/2024 01/14/2023 Pneumococcal Vaccine: 65+ Years Completed 11/07/2015, 04/06/2014 [...] this encounter Medical Devices Implanted Type Area Data Processing Operator Device Identifier Shelf Expiration Date Model / Serial / Lot Lens Intraoc 24.0 - [id number] - [id number] Implanted:Qty: 1 on 06/01/2017 by Nikhil Bolton MD at OR [facility] Left: Eye [employer] 07/17/2021 [id number] / [id number] / [id number] Lens Intraoc 24.0 - [id number] - [id number] Implanted:Qty: 1 on 06/08/2017 by Nikhil Bolton MD at OR [facility] Right: Eye [employer] 07/17/2021 [id number] / [id number] / [id number] documented as of this encounter Visit Diagnoses Diagnosis PAF (paroxysmal atrial fibrillation) (HCC)- Primary Atrial fibrillation Coronary artery disease involving [place] coronary artery of mil[place] heart without angina pectoris HTN, goal below 130/80 Unspecified essential hypertension Iron deficiency anemia, unspecified iron deficiency anemia type Encounter for long-term (current) use of medications Encounter for long-term (current) use of other medications 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 radiculopathy Lumbosacral spondylosis without myelopathy documented in this encounter Advance Directives Documents on File Type Date Recorded Patient Flake Or Shred Roll Operator Expl anation Advance Directives and Yu fine Roland 11/20/2005 ADVANCE DIRECTIVE Latest Code Status on [...] and were consensually agreed upon. Care Teams Dean Of Men Relationship Specialty Start Date End Date Johnnie Newby MD [address] [place] [address] PCP - General Family Medicine 09/13/20 documented as of this encounter"
--- OUTSIDE RECORDS SUMMARY | 2023-04-15 00:17 | External Medical Summary | Summary of Care ---
Author Name Unknown Organization [facility] Address [address] [place] [address] Phone [phone] Care Team Providers Care Olericulturist Name Role Phone Johnnie Newby MD Primary Care Provider [phone] Reason for Visit * Auth/Cert Specialty Diagnoses / Procedures Referred By Treva judd Referred To Contact Diagnoses History of colon polyps Other iron deficiency anemia History of colon polyps [Z86.010] Other iron deficiency anemia [D50.8] Procedures COLONOSCOPY, DIAGNOSTIC (RECTUM) EGD, FLEXIBLE, DIAGNOSTIC COLONOSCOPY FLEXIBLE PROXIMAL DIAGNOSTIC ESOPHAGOGASTRODUODENOSCOPY (EGD), FLEXIBLE, TRANSORAL, DIAGNOSTIC Referral ID Status Reason Start Date Expiration Date Visits Re quested Visits Authorized [id number] Encounter Details Date Type Department Care Team Description 01/14/2023 Hospital Encounter ENDO [facility], Endoscopy Room [facility] [address] [place] [id number] Destiny Mojica DO [address] [facility] [place] [address] Various: UGI,GICOLON Allergies Active Allergy Reactions Severity Noted Date [...] Base) MCG/ACT Inhalation Aerosol SolutionIndication s:COPD, moderate (HCC) Take 2 Puffs by mouth [...] 24 Hour (Imdur)Indications :Coronary artery disease involving [place] coronary artery without angina pectoris TAKE ONE [...] Capsule 0 3 07/08/19 24 Active Tiotropium [facility] Monohydrate 18 MCG Inhalation Capsule (Spiriva) INHALE ONE CAPSULE VIA HANDIHALER EVERY MORNING. DO NOT SWALLOW CAPSULE. 90 Capsule 3 3 06/26/19 24 Active Mirtazapine 15 MG Oral Tablet (Remeron) TAKE ONE-HALF TABLET (7.5 MG.) BY MOUTH EVERY NIGHT 45 Tablet 0 3 05/06/19 24 Active Fluticasone-Salmet gume 230-21 MCG/ACT Inhalation Aerosol (Advair)Indication s:COPD, group B, by GOLD 2017 classification ([facility]) INHALE TWO PUFFS BY MOUTH EVERY MORNING [...] ons:COPD, group D, by GOLD 2017 classification ([facility]) TAKE ONE TABLET BY MOUTH EVERY MORNING [...] (toPROL XL)Indications:SVT (supraventricular tachycardia),NSVT (nonsustained ventricular tachycardia) ([facility]) TAKE ONE TABLET BY MOUTH EVERY DAY [...] THE MORNING 16 g 1 3 Active Fluticasone Propionate 50 MCG/ACT Nasal Suspension (Flonase) Administer 2 Sprays into each nostril in the morning. 16 g 1 3 01/14/20 23 Discontinued FLUoxetine HCl 20 MG Oral Capsule (PROzac) TAKE THREE CAPSULES BY MOUTH EVERY MORNING 270 Capsule 0 2 01/15/20 23 Discontinued([place] tient preference/disc ontinuation) documented as of this encounter (statuses as of 01/15/2023) Active Problems Problem Noted Date Gouty arthropathy [...] long-term current use of insulin 08/02/2018 Old MO (myocardial infarction) 8 YISSEL treated with BiPAP 01/03/2018 Overview: Wears BiPAP at night Type 2 diabetes mellitus with hemoglobin A1c goal of less than 8.0% 10/23/2014 Overview: ICD-10 update of inactive term CVA, old, 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 PTSD (post-traumatic stress disorder) Gastroesophageal reflux disease without esophagitis 01/05/2014 Coronary artery disease invo lving [place] coronary artery of [place] heart without angina pectoris 11/27/2013 Tobacco abuse [...] mRNA, LNP-s, No Pre serve, 2-Dose Series (Molecule Synth) 02/10/2022,07/13/2020,06/17/2020 Pneumococcal Conjugate Vacc, 13 Valent (Prevnar) [...] Sign Reading Time Taken Comments Blood Pressure 104/54 01/14/2023 3:20 PM EDT Pulse 71 01/14/2023 3:20 PM EDT Temperature 36.3 C (97.4 F) 01/14/2023 3:20 PM ED T Respiratory Rate 16 01/14/2023 3:20 PM EDT Oxygen Saturation 95% 01/14/2023 3:20 PM EDT Inhaled Oxygen Concentration - - Weight 89.8 kg (198 lb) 01/11/2023 2:47 PM EDT Height 172.7 cm (5' 8") 01/11/2023 2:47 PM EDT Body Mass Index 30.11 01/11/2023 2:47 PM EDT documented in this encounter H&P Notes * Destiny Mojica, - 01/14/2023 1:49 PM EDT Endoscopy Pre-Procedure Assessment Name: Walter Don Date: 01/14/2023 Time: 1:49 PM Procedure: Colonoscopy; with Indication(s) of evaluation of GI blood loss or iron- deficiency anemia Upper GI Endoscopy; with Indication(s) of evaluation and management of GI bleeding and/or iron-deficiency anemia Endoscopy Pre-Procedure Assessment: Prior to the procedure, the patient was identified. The patient's history, medications and allergies were reviewed as per the Anesthesia Assessment. The patient is competent. The risks and benefits of the proposed procedure and the planned sedation were discussed with the patient. All questions were answered and informed consent for the procedure was obtained. This patient has undergone a preprocedural evaluation. A determination has been made to proceed with the planned procedure under [facility] procedural guidelines and the [facility] Non-Emergent, Elective Medical Services and Treatment Recommendations (published on 07-25-19). The community and hospital prevalence of COVID-19 has been discussed as well as this patient's specific risks associated with SARS-CoV-19 infection. Based upon the clinical acuity and patient-specific care considerations, this procedure is deemed a Tier II - Intermediate acuity treatment or service with either progression or the threat of progressive disease related to the delay in treatment. Not providing the service has the potential for increasing morbidity or mortality. Ht 1.727 m (5' 8") | Wt 89.8 kg (198 lb) | BMI 30.11 kg/m | BSA 2.08 m Prior to Admission medications Medication Sig Last Dose Discont. Colchicine 0.6 MG Oral Tablet Take 2 tablets by mouth. One hour later, take 1 tablet by mouth. Take1 tablet by mouth once daily after until symptoms resolve. 01/10/2023 Vitron-C 65-125 MG Oral Tablet (Iron-Vitamin C 65-125 mg per tab) Take 1 Tablet by mouth in the morning. 01/11/2023 Atorvastatin Calcium 80 MG Oral Tablet (Lipitor) TAKE ONE TABLET BY MOUTH AT BEDTIME 01/11/2023 Metoprolol Succinate ER 25 MG Oral Tablet Extended Release 24 Hour (toPROL XL) TAKE ONE TABLET BY MOUTH EVERY DAY 01/11/2023 Apixaban 5 MG Oral Tablet (Eliquis) Take 1 Tablet by mouth in the morning and 1 Tablet before bedtime. 01/11/2023 Aspirin 81 MG Oral Tablet Chewable chew 1 Tablet by mouth in the morning. 01/11/2023 Roflumilast 500 MCG Oral Tablet (Daliresp) TAKE ONE TABLET BY MOUTH EVERY MORNING 01/11/2023 FLUoxetine HCl 20 MG Oral Capsule (PROzac) take 3 caps by mouth every morning 01/11/2023 Mirtazapine 15 MG Oral Tablet (Remeron) take 1/2 tab (7.5mg) by mouth every night 01/10/2023 Omeprazole 20 MG Oral Capsule Delayed Release (PriLOSEC) TAKE ONE CAPSULE BY MOUTH EVERY MORNING *NEED UPDATED LABS* 01/11/2023 Furosemide 40 MG Oral Tablet (Lasix) TAKE ONE TABLET BY MOUTH EVERY MORNING 01/11/2023 Isosorbide Mononitrate ER 60 MG Oral Tablet Extended Release 24 Hour (Imdur) TAKE ONE TABLET BY MOUTH EVERY MORNING 01/11/2023 Lisinopril 20 MG Oral Tablet (Prinivil) TAKE ONE TABLET BY MOUTH EVERY MORNING 01/11/2023 metFORMIN HCl 1000 MG Oral Tablet (Glucophage) TAKE ONE TABLET BY MOUTH EVERY MORNING 01/11/2023 Mirtazapine 15 MG Oral Tablet (Remeron) TAKE ONE-HALF TABLET BY MOUTH EVERY NIGHT 01/10/2023 FLUoxetine HCl 20 MG Oral Capsule (PROzac) TAKE THREE CAPSULES BY MOUTH EVERY MORNING 01/11/[address] [facility] Monohydrate 18 MCG Inhalation Capsule (Spiriva) INHALE ONE CAPSULE VIA HANDIHALER EVERY MORNING. DO NOT SWALLOW CAPSULE. 01/11/2023 Mirtazapine 15 MG Oral Tablet (Remeron) TAKE ONE-HALF TABLET (7.5 MG.) BY MOUTH EVERY NIGHT 01/10/2023 BiPAP every night at bedtime. 01/11/2023 Fluticasone-Salmeterol 230-21 MCG/ACT Inhalation Aerosol (Advair) INHALE TWO PUFFS BY MOUTH EVERY MORNING AND INHALE TWO PUFFS BY MOUTH AT BEDTIME, RINSE MOUTH AFTER USE 01/11/2023 FLUoxetine HCl 20 MG Oral Capsule (PROzac) TAKE THREE CAPSULES BY MOUTH EVERY MORNING 01/11/2023 Gabapentin 300 MG Oral Capsule (Neurontin) Take by mouth 1 Capsule before bedtime. 01/10/2023 Mirtazapine 15 MG Oral Tablet (Remeron) Take one and half tablets by mouth daily at bedtime 01/10/2023 Ventolin HFA 108 (90 Base) MCG/ACT Inhalation Aerosol Solution Take 2 Puffs by mouth 4 times a day as needed for Shortness of Breath or Wheezing. 01/10/2023 ONETOUCH ULTRA BLUE STRP TEST ONCE DAILY 01/11/2023 risperiDONE 0.25 MG Oral Tablet Take 2 Tablets by mouth at bedtime. 01/10/2023 BUSPAR 15 MG PO TABS Take by mouth. Uses as needed Past Month DAILY MULTIVITAMIN PO TABS with lycopene 01/11/2023 Fluticasone Propionate 50 MCG/ACT Nasal Suspension (Flonase) USE TWO SPRAYS IN EACH NOSTRIL IN THE MORNING Vitamin B-12 1000 MCG Oral Tablet (Cyanocobalamin) Take 1 Tablet by mouth in the morning. Patient not taking: Reported on 01/08/2023 Not Taking clonazePAM (KLONOPIN) 0.5 MG Tablet Uses as needed Over 30 Days Review of patient's allergies indicates: Allergen Reactions Tylenol [Acetaminophen] headaches Physical Exam: Mental Status Examination: alert and oriented. General: nad, calm Airway Examination: normal oropharyngeal airway and neck mobility. Respiratory Examination: symmetrical excursion Abd:soft/ntd ASA Grade: III - A patient with severe systemic disease. After reviewing the risks and benefits, the patient was deemed in satisfactory condition to undergothe procedure. The anesthesia plan was to use general anesthesia. Destiny Mojica DO Gastroenterology and Hepatology 01/14/2023 documented in this encounter Procedure Notes * Johnnie Newby MD - 01/14/2023 2:11 PM EDTAssociated Order(s): COLONOSCOPY [facility] Patient Name: Walter Don Procedure Date: 01/14/2023 2:11 PM Date of : 1945 Admit Type: Outpatient Note Status: Finalized Date of : 1945 Admit Type: Outpatient Age: 77 Room: [facility] 2 Gender: Male Note Status: Finalized Procedure: Colonoscopy Indications: Iron deficiency anemia Providers: Destiny Mojica DO (Doctor) Patient Profile: This is a 77 year old male. Refer to note in patient chart for documentation of history and physical. Has a history of over 50 polyps. 21 polyps on colonoscopy io 2019 and 12 polyps on colonoscopy last year. Referring MD: Johnnie Newby MD (Referring MD), Agnes Bowers NP (Referring MD) Medicines: General Anesthesia Complications: No immediate complications. Procedure: Pre-Anesthesia Assessment: - Prior to the procedure, a History and Physical was performed, and patient medications and allergies were reviewed. The risks and benefits of the procedure and the sedation options and risks were discussed with the patient. All questions were answered and informed consent was obtained. Patient identification and proposed procedure were verified by the physician, the nurse and the railway switch operator in the procedure room. Mental Status Examination: alert and oriented. Airway Examination: Mallampati Class II (the uvula but not tonsillar pillars visualized). Respiratory Examination: clear to auscultation. CV Examination: RRR, no murmurs, no S3 or S4. Prophylactic Antibiotics: The patient does not require prophylactic antibiotics. Prior Anticoagulants: The patient has taken Eliquis (apixaban), last dose was 3 days prior to procedure. ASA Grade Assessment: III - A patient with severe systemic disease. After reviewing the risks and benefits, the patient was deemed in satisfactory condition to undergo the procedure. The anesthesia plan was to use general anesthesia. Immediately prior to administration of medications, the patient was re-assessed for adequacy to receive sedatives. The physical status of the patient was re-assessed after the procedure. After I obtained informed consent, the scope was passed under direct vision. All instruments were visually inspected immediately before and after removal from the patient to ensure they are fully intact. Throughout the procedure, the patient's blood pressure, pulse, and oxygen saturations were monitored continuously.The colonoscopy was performed without difficulty. The patient tolerated the procedure well. The quality of the bowel preparation was good. The PCF-H190L Colonoscope ([id number]) was introduced through the anus and advanced to the cecum, identified by appendiceal orifice and ileocecal valve. Findings & Specimens: Hemorrhoids were found on perianal exam. Two sessile polyps were found in the descending colon. The polyps were 3 mm in size. These polyps were removed with a cold snare. Resection and retrieval were complete. Verification of patient identification for the specimen was done by the physician and nurse using the patient's name and date. The pathology specimen was placed into Bottle Number 2. A 3 mm polyp was found in the sigmoid colon. The polyp was sessile. The polyp was removed with a cold snare. Resection was complete, but the polyp tissue was not retrieved. The retroflexed view of the distal rectum and anal verge was normal and showed no anal or rectal abnormalities. A tattoo was seen in the rectum, in the sigmoid colon and in the descending colon. A post-polypectomy scar was found at the tattoo site. There was no evidence of residual polyp tissue. Multiple small and large-mouthed diverticula were found in the left colon. Impression: - Hemorrhoids found on perianal exam. - Two 3 mm polyps in the descending colon, removed with a cold snare. Resected and retrieved. - One 3 mm polyp in the sigmoid colon, removed with a cold snare. Complete resection. Polyp tissue not retrieved. - A tattoo was seen in the rectum, in the sigmoid colon and in the descending colon. A post-polypectomy scar was found at the tattoo site. There was no evidence of residual polyp tissue. - Diverticulosis in the left colon. Recommendation: - Patient has a contact number available for emergencies. The signs and symptoms of potential delayed complications were discussed with the patient. Return to normal activities tomorrow. Written discharge instructions were provided to the patient. - The patient will be observed post-procedure, until all discharge criteria are met. - Discharge patient to home (with escort). - Resume previous diet. - Continue present medications. - Await pathology results. - Repeat colonoscopy in 2 years for surveillance. Destiny Mojica DO 01/14/2023 3:05:32 PM This report has been signed electronically. * CHRISTOPHE Johnson - 01/14/2023 2:10 PM EDTAssociated Order(s): UPPER GI ENDOSCOPY [facility] Patient Name: Walter Don Procedure Date: 01/14/2023 2:10 PM Date of : 1945 Admit Type: Outpatient Note Status: Finalized Date of : 1945 Admit Type: Outpatient Age: 77 Room: Endo 2 Gender: Male Note Status: Finalized Procedure: Upper GI endoscopy Indications: Iron deficiency anemia Providers: Destiny Mojica DO (Doctor) Patient Profile: This is a 77 year old male. Refer to note in patient chart for documentation of history and physical. Referring MD: Agnes Bowers NP (Referring MD), Johnnie Newby MD (Referring MD) Medicines: General Anesthesia Complications: No immediate complications. Procedure: Pre-Anesthesia Assessment: - Prior to the procedure, a History and Physical was performed, and patient medications and allergies were reviewed. The risks and benefits of the procedure and the sedation options and risks were discussed with the patient. All questions were answered and informed consent was obtained. Patient identification and proposed procedure were verified by the physician, the nurse and the railway switch operator in the procedure room. Mental Status Examination: alert and oriented. Airway Examination: Mallampati Class II (the uvula but not tonsillar pillars visualized). Respiratory Examination: clear to auscultation. CV Examination: RRR, no murmurs, no S3 or S4. Prophylactic Antibiotics: The patient does not require prophylactic antibiotics. Prior Anticoagulants: The patient has taken Eliquis (apixaban), last dose was 3 days prior to procedure. ASA Grade Assessment: III - A patient with severe systemic disease. After reviewing the risks and benefits, the patient was deemed in satisfactory condition to undergo the procedure. The anesthesia plan was to use general anesthesia. Immediately prior to administration of medications, the patient was re-assessed for adequacy to receive sedatives. The physical status of the patient was re-assessed after the procedure. After obtaining informed consent, the endoscope was passed under direct vision. All instruments were visually inspected immediately before and after removal from the patient to ensure they are fully intact. Throughout the procedure, the patient's blood pressure, pulse, and oxygen saturations were monitored continuously.The upper GI endoscopy was accomplished without difficulty. The patient tolerated the procedure well. The GIF-H180 Endoscope ([id number]) was introduced through the mouth, and advanced to the second part of duodenum. Findings & Specimens: The Z-line was regular and was found 42 cm from the incisors. The examined esophagus was normal. A single large sessile polyp was found in the prepyloric region of the stomach. Biopsies were taken with a cold forceps for histology. Verification of patient identification for the specimen was doneby the physician and nurse using the patient's name and date. The pathology specimen was placed into Bottle Number 1. The duodenal bulb and second portion of the duodenum were normal. Impression: - Z-line regular, 42 cm from the incisors. - Normal esophagus. - A single gastric polyp. Biopsied. - Normal duodenal bulb and second portion of the duodenum. Recommendation: - Patient has a contact number available for emergencies. The signs and symptoms of potential delayed complications were discussed with the patient. Return to normal activities tomorrow. Written discharge instructions were provided to the patient. - The patient will be observed post-procedure, until all discharge criteria are met. - Discharge patient to home (with escort). - Resume previous diet. - Continue present medications. - Proceed to same day colonoscopy. - Await pathology results. Destiny Mojica DO 01/14/2023 2:37:37 PM This report has been signed electronically. documented in this encounter Nursing Notes * Alison Jefferson RN - 01/14/2023 3:40 PM EDT Pt escorted to the vehicle by PACU staff via a W/C. All discharge instructions discussed. Paper copy of discharge information and procedure report given to him to take home with him. Was assisted with getting dressed by his . Able to transfer himself without difficulty to the W/C. * Alison Jefferson RN - 01/14/2023 3:17 PM EDT Pt received into PACU II, room 3 via stretcher from the ENDO procedure room s/p EGD and colonoscopy. VSS. Awake and conversing with staff appropriately. O2 sats 97% on RA, resps easy and unlabored. IV fluids infusing to his right arm without issue. Dr. Mojica in to visit pt and discusses his procedure with him. at bedside. * Darian Rajan RN - 01/14/2023 3:06 PM EDT Specimen(s) and location(s) verified with physician post procedure 3:06 PM Darian Rajan RN Mid abdominal pressure given per Dr. Mojica to assist with scope advancement. Pt tolerated well See anesthesia record for medication administered during procedure. Darian Rajan RN Pre cleaning of scope at the bedside started by vp of technology. * Juli Meza RN - 01/14/2023 2:18 PM EDT Patient prepped and ready for anesthesia to assess. Call frances in reach, bed locked. documented in this encounter Plan of Treatment Upcoming Encounters Date Type Specialty Care Team Description 01/15/2023 Office Visit Family Medicine Johnnie Newby MD [address] [place] [id number] 01/27/2023 Hospital Encounter Surgery Pb Alexander, DO [address] [place], [place] [address] 01/27/2023 Surgery Surgery Pb Alexander, [address] [place], [place] [address] DESTROY LUMBAR SACRAL NERVE IMAGING SINGLE 02/26/2023 [facility] [address] [facility] [id number] 03/10/2023 Office Visit Cardiology Deisy Aguirre CRNP [address] [place] [address] 05/05/2023 Office Visit Gastroenterology Agnes Bowers CRNP [address] [place] [address] 07/08/2023 Imaging Radiology 07/13/2023 Office Visit Radiation Oncology Shawna Johnson MD [address] [facility] [place] [id number] Pending Results Name Type Priority Associated Diagnoses Date /Time SURGICAL PATHOLOGY Pathology Routine History of colon polyps Other iron deficiency anemia 01/14/2023 3:05 PM EDT Scheduled Orders Name Type Priority Associated Diagnoses Orde r Schedule SURGICAL PATHOLOGY Pathology Routine History of colon polyps Other iron deficiency anemia Release Upon Ordering for 1 Occurrences starting 01/14/2023, 1 completed Scheduled Procedures Name Priority Associated Diagnoses Date/Ti [...] 05/01/2023 05/01/2022, 02/13/2022 CKD PHOS USE SMARTSET 41936 06/05/202305/20, 06/03/2021, 06/04/2020, Additional history exists GFR 06/17/2023 12/17/2022, 05/20, 12/02/2021, Additional history exists Diabetic Foot Exam 09/10/2023 09/09/2022, 1 , 11/12/2017, Additional history exists DTaP,Tdap,and Td Vaccines (2 - Td or Tdap) 01/06/2024 01/05/2014 CKD HGB USE SMARTSET 38573 01/09/202401/08, 12/17/2022, 07/17/2021, Additional history exists COLONOSCOPY-ANNUAL [...] this encounter Medical Devices Implanted Type Area Manager Filter Device Identifier Shelf Expiration Date Model / Serial / Lot Lens Intraoc 24.0 - [id number] - [id number] Implanted:Qty: 1 on 06/01/2017 by Nikhil Bolton MD at OR [facility] Left: Eye [employer] 07/17/2021 [id number] / [id number] / [id number] Lens Intraoc 24.0 - [id number] - [id number] Implanted:Qty: 1 on 06/08/2017 by Nikhil Bolton MD at OR [facility] Right: Eye [employer] 07/17/2021 [id number] / [id number] / [id number] documented as of this encounter Procedures Procedure Name Priority Date/Time Associated Diagnosis Comments COLONOSCOPY 01/14/2023 2:11 PM EDT UPPER GI ENDOSCOPY 01/14/2023 2: 10 PM EDT GLUCOSE METER, POINT OF CARE MARCIANO 01/14/2023 2:06 PM EDT documented in this encounter Results * COLONOSCOPY (01/14/2023 2:11 PM EDT) 01/14/2023 2:11 PM EDT Procedure Note Johnnie Newby MD - 01/14/2023 2:11 PM EDT [facility] Patient Name: Walter Don Procedure Date: 01/14/2023 2:11 PM Date of : 1945 Admit Type: Outpatient Note Status:Finalized Date of : 1945 Admit Type: Outpatient Age: 77 Room: [facility] 2 Gender: Male Note Status: Finalized Procedure: Colonoscopy Indications: Iron deficiency anemia Providers: Destiny Mojica DO (Doctor) Patient Profile: This is a 77 year old male. Refer to note inpatient chart for documentation of history and physical. Has a history of over 48polyps. 21 polyps on colonoscopy io 2019 and 12 polyps on colonoscopy last year. Referring MD: Johnnie Newby MD (Referring MD), Agnes Rivera NP (Referring MD) Medicines: General Anesthesia Complications: No immediate complications. Procedure: Pre-Anesthesia Assessment: - Prior to the procedure, a History and Physicalwas performed, and patient medications and allergies were reviewed. The risksand benefits of the procedure and the sedation options and risks were discussed withthe patient. All questions were answered and informed consent was obtained. Patientidentification and proposed procedure were verified by the physician, the nurseand the railway switch operator in the procedure room. Mental Status Examination: alertand oriented. Airway Examination: Mallampati Class II (the uvula but not tonsillarpillars visualized). Respiratory Examination: clear to auscultation. CV Examination:RRR, no murmurs, no S3 or S4. Prophylactic Antibiotics: The patient does notrequire prophylactic antibiotics. Prior Anticoagulants: The patient has taken Eliquis(apixaban), last dose was 3 days prior to procedure. ASA Grade Assessment: III - Apatient with severe systemic disease. After reviewing the risks and benefits,the patient was deemed in satisfactory condition to undergo the procedure.The anesthesia plan was to use general anesthesia. Immediately prior toadministration of medications, the patient was re-assessed for adequacy to receive sedatives.The physical status of the patient was re-assessed after the procedure. After I obtained informed consent, the scope waspassed under direct vision. All instruments were visually inspected immediatelybefore and after removal from the patient to ensure they are fully intact. Throughout the procedure, the patient's bloodpressure, pulse, and oxygen saturations were monitored continuously.The colonoscopy wasperformed without difficulty. The patient tolerated the procedure well. The qualityof the bowel preparation was good. The PCF-H190L Colonoscope ([id number]) was introducedthrough the anus and advanced to the cecum, identified by appendiceal orifice andileocecal valve. Findings & Specimens: Hemorrhoids were found on perianal exam. Two sessile polyps were found in the descending colon. The polypswere 3 mm in size. These polyps were removed with a cold snare. Resection and retrieval were complete.Verification of patient identification for the specimen was done by the physician and nurseusing the patient's name and date. The pathology specimen was placed into Bottle Number 2. A 3 mm polyp was found in the sigmoid colon. The polyp was sessile.The polyp was removed with a cold snare. Resection was complete, but the polyp tissue was notretrieved. The retroflexed view of the distal rectum and anal verge was normaland showed no anal or rectal abnormalities. A tattoo was seen in the rectum, in the sigmoid colon and in thedescending colon. A post-polypectomy scar was found at the tattoo site. There was no evidence of residualpolyp tissue. Multiple small and large-mouthed diverticula were found in the leftcolon. Impression: - Hemorrhoids found on perianal exam. - Two 3 mm polyps in the descending colon, removedwith a cold snare. Resected and retrieved. - One 3 mm polyp in the sigmoid colon, removed witha cold snare. Complete resection. Polyp tissue not retrieved. - A tattoo was seen in the rectum, in the sigmoidcolon and in the descending colon. A post-polypectomy scar was found at the tattoosite. There was no evidence of residual polyp tissue. - Diverticulosis in the left colon. Recommendation: - Patient has a contact number available foremergencies. The signs and symptoms of potential delayed complications were discussed withthe patient. Return to normal activities tomorrow. Written discharge instructionswere provided to the patient. - The patient will be observed post-procedure,until all discharge criteria are met. - Discharge patient to home (with escort). - Resume previous diet. - Continue present medications. - Await pathology results. - Repeat colonoscopy in 2 years for surveillance. Destiny Mojica DO 01/14/2023 3:05:32 PM This report has been signed electronically. Johnnie Newby MD GASTRO LOWER * UPPER GI ENDOSCOPY (01/14/2023 2:10 PM EDT) 01/14/2023 2:10 PM EDT Procedure Note CHRISTOPHE Johnson - 01/14/2023 2:10 PM EDT [facility] Patient Name: Walter Don Procedure Date: 01/14/2023 2:10 PM Date of : 1945 Admit Type: Outpatient Note Status:Finalized Date of : 1945 Admit Type: Outpatient Age: 77 Room: Endo 2 Gender: Male Note Status: Finalized Procedure: Upper GI endoscopy Indications: Iron deficiency anemia Providers: Destiny Mojica DO (Doctor) Patient Profile: This is a 77 year old male. Refer to note inpatient chart for documentation of history and physical. Referring MD: Agnes Bowers NP (Referring MD), Johnnie Boswell MD (Referring MD) Medicines: General Anesthesia Complications: No immediate complications. Procedure: Pre-Anesthesia Assessment: - Prior to the procedure, a History and Physicalwas performed, and patient medications and allergies were reviewed. The risksand benefits of the procedure and the sedation options and risks were discussed withthe patient. All questions were answered and informed consent was obtained. Patientidentification and proposed procedure were verified by the physician, the nurseand the railway switch operator in the procedure room. Mental Status Examination: alertand oriented. Airway Examination: Mallampati Class II (the uvula but not tonsillarpillars visualized). Respiratory Examination: clear to auscultation. CV Examination:RRR, no murmurs, no S3 or S4. Prophylactic Antibiotics: The patient does notrequire prophylactic antibiotics. Prior Anticoagulants: The patient has taken Eliquis(apixaban), last dose was 3 days prior to procedure. ASA Grade Assessment: III - Apatient with severe systemic disease. After reviewing the risks and benefits,the patient was deemed in satisfactory condition to undergo the procedure.The anesthesia plan was to use general anesthesia. Immediately prior toadministration of medications, the patient was re-assessed for adequacy to receive sedatives.The physical status of the patient was re-assessed after the procedure. After obtaining informed consent, the endoscope waspassed under direct vision. All instruments were visually inspected immediatelybefore and after removal from the patient to ensure they are fully intact. Throughout the procedure, the patient's bloodpressure, pulse, and oxygen saturations were monitored continuously.The upper GI endoscopywas accomplished without difficulty. The patient tolerated the procedurewell. The GIF-H180 Endoscope ([id number]) was introduced through the mouth, andadvanced to the second part of duodenum. Findings & Specimens: The Z-line was regular and was found 42 cm from the incisors. The examined esophagus was normal. A single large sessile polyp was found in the prepyloric region ofthe stomach. Biopsies were taken with a cold forceps for histology. Verification of patientidentification for the specimen was done by the physician and nurse using the patient's name and date. Thepathology specimen was placed into Bottle Number 1. The duodenal bulb and second portion of the duodenum were normal. Impression: - Z-line regular, 42 cm from the incisors. - Normal esophagus. - A single gastric polyp. Biopsied. - Normal duodenal bulb and second portion of theduodenum. Recommendation: - [facility]. The signs and symptoms of potential delayed complications were discussed withthe patient. Return to normal activities tomorrow. Written discharge instructionswere provided to the patient. - The patient will be observed post-procedure,until all discharge criteria are met. - Discharge patient to home (with escort). - Resume previous diet. - Continue present medications. - Proceed to same day colonoscopy. - Await pathology results. Destiny Mojica DO 01/14/2023 2:37:37 PM This report has been signed electronically. Agnes SAEED GASTRO UPPER * (ABNORMAL) GLUCOSE METER, POINT OF CARE (01/14/2023 2:06 PM EDT) Pathologist [facility] Glucose Meter 124(H) 70 - 120 mg/dL 01/14/2023 2:13 PM EDT [facility] Blood Whole blood specimen / Unknown 01/14/2023 2:06 PM EDT 01/14/2023 2:13 PM EDT Destiny Mojica DO LAB POINT OF C ARE TEST DOCKED DEVICE UNSOLICITED RESULTS [facility] [address] [place] [address] documented in this encounter Visit Diagnoses Diagnosis History of colon polyps Personal history of colonic polyps Other iron deficiency anemia 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 radiculopathy Lumbosacral spondylosis without myelopathy documented in this encounter Administered Medications Inactive Administered Medications - up to 3 most recent administrations Medication Order MAR Action Action Date Dose Rate Site isolyte-S pH 7.4 infusion Intravenous, at 100 mL/hr, Plasma-LYTE 148, isolyte-S, and isolyte-S pH 7.4 are considered equivalent - including for MAR barcode scanning., CONTINUOUS, Starting on Rebecca 01/14/23 at 1430, Until Rebecca 01/14/23 at 1946, Pre-Op Restarted 01/14/2023 3:03 PM EDT Continue from Pre-Op 01/14/2023 2:21 PM EDT 100 mL/hr New Bag 01/14/2023 2:10 PM EDT 100 mL/hr documented in this encounter Active and Recently Administered Medications Times are shown in EDT. Continuous Medication Order 01/12/2023 01/13/2023 01/14/2023 isolyte-S pH 7.4 infusion Intravenous, at 100 mL/hr, Plasma-LYTE 148, isolyte-S, and isolyte-S pH 7.4 are considered equivalent - including for MAR barcode scanning., CONTINUOUS, Starting on Rebecca 01/14/23 at 1430, Until Rebecca 01/14/23 at 1946, Pre-Op 1410 (New Bag - Prov ider: Juli Meza RN)1421 (Continue from Pre-Op - Provider: Jerrica Santos CRNA)1502 (Paused - Provider: Jerrica Santos CRNA - Comment: Switch to gravity)1503 (Restarted - Provider: Jerrica Santos CRNA) documented in this encounter Advance Directives Documents on File Type Date Recorded 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 Care Teams Olericulturist Relationship Specialty Start Date End Date Johnnie Newby MD [address] [place] [address] PCP - General Family Medicine 09/13/20 documented as of this encounter
--- OUTSIDE RECORDS SUMMARY | 2023-04-15 00:17 | External Medical Summary ---
Author Name Unknown Address Unknown Organization [id number]:[facility] [place] [address] - [address] [place] [id number] Laboratory Report Ordering Provider Test Date Status ALONZO DELUNA 01/15/2023 11:14:11 Final Observation Date Value Abnormality Reference (Units ) Status WBC, Total 01/15/2023 11:14:11 6.60 4.00-10.8 0 (K/uL) Final RBC 01/15/2023 11:14:11 3.46 4.50-5.25 (M/uL) Final Hemoglobin 01/15/2023 11:14:11 9.5 Below low normal 14 .0-16.8 (g/dL) Final HCT 01/15/2023 11:14:11 31.5 Below low normal 40. 0-48.4 (%) Final MCV 01/15/2023 11:14:11 91.0 82.0-99.5 (fL) Final MCH 01/15/2023 11:14:11 27.5 27.0-34.0 (pg) Final MCHC 01/15/2023 11:14:11 30.2 32.0-36.0 (g/dL) Final RDW 01/15/2023 11:14:11 18.5 11.5-15.5 (%) Final Platelets 01/15/2023 11:14:11 258 140-400 (K /uL) Final MPV 01/15/2023 11:14:11 9.2 6.6-11.1 ( fL) Final [facility] [address] [place] [address]
--- OUTSIDE RECORDS SUMMARY | 2023-04-15 00:17 | External Medical Summary ---
Author Name Unknown Address Unknown Organization K01:[facility] [place] [address] [place] [address] Laboratory Report Ordering Provider Test Date Status JEREMIAS TAPIA 01/15/2023 11:32:57 Final Normal: <30 mg/g creatinine< br/>High: 30-300 mg/g creatinine
Very High: >300 mg/g creatinine
Nephrotic: >2200 mg/g creatinine Observation Date Value Abnormality Reference (Units) Status Albumin, Urine 01/15/2023 11:32:57 <1.20 (mg/dL) Final Creatinine, Urine 01/15/2023 11:32:57 35 (mg/dL) Final ALBUMIN/CREATININE RATIO, HIDE 01/15/2023 11:32:57 Uninterpretable Albumin/Creatinine ratio due to very low albumin and creatinine values. <30 (mg/g Creat) Final Performing Location [facility] [place] [address] [place] [id number]
--- OUTSIDE RECORDS SUMMARY | 2023-04-15 00:17 | External Medical Summary | Summary of Care ---
Author Name Unknown Organization [facility] Address [address] [place] [address] Phone [phone] Care Team Providers Care Printing Specialist Name Role Phone Johnnie Newby MD Primary Care Provider [phone] Reason for Visit * Reason Comments Outpatient Testing Encounter Details Date Type Department Care Team Description 01/15/2023 Laboratory Laboratory, [facility] [address] [place] [address] [facility] [address] [place] [address] PAF (paroxysmal atrial fibrillation) ([facility]); Iron deficiency anemia, unspecified iron deficiency anemia type; Encounter for long-term (current) use of medications; Type 2 diabetes mellitus with hemoglobin A1c goal of less than 8.0% ([facility]); HTN, goal below 140/90 Allergies Active Allergy [...] goal of less than 7.0% ([facility]) TEST ONCE DAILY 100 Strip 5 03/02/2018 [...] 24 Hour (Imdur)Indications:C oronary artery disease involving [place] coronary artery without angina pectoris TAKE ONE [...] 270 Capsule 0 07/08/2022 4 Active Tiotropium [place] Monohydrate 18 MCG Inhalation Capsule (Spiriva) INHALE ONE CAPSULE VIA HANDIHALER EVERY MORNING. DO NOT SWALLOW CAPSULE. 90 Capsule 3 06/26/2022 4 Active Fluticasone-Salmeter ol 230-21 MCG/ACT Inhalation Aerosol (Advair)Indications: COPD, group B, by GOLD 2017 classification ([facility]) INHALE TWO PUFFS BY MOUTH EVERY MORNING AND INHALE TWO PUFFS BY MOUTH AT BEDTIME, RINSE MOUTH AFTER USE 36 g 3 04/17/2022 3 Active Roflumilast 500 MCG Oral Tablet (Daliresp)Indication s:COPD, group D, by GOLD 2017 classification ([facility]) TAKE ONE TABLET BY MOUTH EVERY MORNING [...] (supraventricular tachycardia),NSVT (nonsustained ventricular tachycardia) ([facility]) TAKE ONE TABLET BY MOUTH EVERY DAY [...] 0.083% inhalation solution 2.5 mgIndications:COPD, severe ([facility]) 2.5 mg NEBULIZER Q4H PRN 07/08/2018 Active [...] Dyslipidemia 02/07/2019 Peripheral arterial disease 12/28/2018 Old VT (myocardial infarction) 8 YISSEL treated with BiPAP 01/03/2018 Overview: Wears BiPAP at night Type 2 diabetes mellitus with hemoglobin A1c goal of less than 8.0% 10/23/2014 Overview: ICD-10 update of inactive term CVA, old, 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 PTSD (post-traumatic stress disorder) Gastroesophageal reflux disease without esophagitis 01/05/2014 Coronary artery disease invo lving tonto apache coronary artery of t[place] apache heart without angina pectoris 11/27/2013 Tobacco abuse [...] Wilkins DO [address] [place] [address] 01/27/2023 Hospital Encounter Surgery Pb Alexander DO [address] [place] [address] 01/27/2023 Surgery Surgery Pb Alexander DO [address] [place] [address] DESTROY LUMBAR SACRAL NERVE IMAGING SINGLE 02/26/2023 Office Visit Podiatry Bettye Herrmann DPM [address] [facility] [place] [address] 03/10/2023 Office Visit Cardiology Deisy Aguirre CRNP [address] [place] [address] 05/05/2023 Office Visit Gastroenterology Agnes Bowers CRNP [address] [place] [address] 07/08/2023 Imaging Radiology 07/13/2023 Office Visit Radiation Oncology Shawna Johnson MD [address] [place] [address] [place] [address] 07/19/2023 Office Visit Family Medicine Johnnie Newby MD [address] [place] [address] Pending Results Name Type Priority Associated Diagnoses Date /Time HEMOGLOBIN A1C Lab Routine Type 2 diabetes mellitus with hemoglobin A1c goal of less than 8.0% ([facility]) 01/15/2023 11:14 AM EDT ALBUMIN / CREATININE [...] exists DISCUSS TOBACCO CESSATION (REFER TO SMARTSET #[id number]) 05/01/2023 05/01/2022, 02/13/2022 CKD PHOS USE SMARTSET 93590 06/05/202305/20, 06/03/2021, 06/04/2020, Additional history exists GFR 06/17/2023 12/17/2022, 05/20, 12/02/2021, Additional history exists Diabetic Foot Exam 09/10/2023 09/09/2022, 1 , 11/12/2017, Additional history exists DTaP,Tdap,and Td Vaccines (2 - Td or Tdap) 01/06/2024 01/05/2014 COLONOSCOPY-ANNUAL AGES 18-100 01/15/2024 01/14/2023, 03/05/2022, 03/05/2022, Additional history exists O2 ASSESSMENT COMPLETED IN PAST YEAR FOR COPD 01/15/2024 01/14/2023 CKD HGB USE SMARTSET 12238 01/16/202401/15, 01/08/2023, 12/17/2022, Additional history exists Pneumococcal [...] this encounter Medical Devices Implanted Type Area Physician Office Assistant Device Identifier Shelf Expiration Date Model / Serial / Lot Lens Intraoc 24.0 - [id number] - [id number] Implanted:Qty: 1 on 06/01/2017 by Nikhil Bolton MD at [facility] Left: Eye [employer] 07/17/2021 [id number] / [id number] / [id number] Lens Intraoc 24.0 - [id number] - [id number] Implanted:Qty: 1 on 06/08/2017 by Nikhil Bolton MD at [facility] Right: Eye [employer] 07/17/2021 [id number] / [id number] / [id number] documented as of this encounter Procedures Procedure [...] [facility] [place] [address] documented in this encounter Visit Diagnoses Diagnosis [...] Documents on File Type Date Recorded 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 Care Teams Printing Specialist Relationship Specialty Start Date End Date Johnnie Newby MD [address] [place] [address] PCP - General Family Medicine 09/13/20 documented as of this encounter
--- OUTSIDE RECORDS SUMMARY | 2023-04-15 00:18 | External Medical Summary | Summary of Care ---
Author Name Unknown Organization [facility] Address [address] [place] [address] Phone [phone] Care Team Providers Care Diversity Specialist Name Role Phone Johnnie Newby MD Primary Care Provider [phone] Reason for Visit * Reason Comments NEW PATIENT FOBT +.,CHARANJIT, * Evaluate & Treat - Unlimited Visits (Within 10 days (routine)) - Authorized Specialty Diagnoses / Procedures Referred By Treva judd Referred To Contact Gastroenterology Diagnoses Fecal occult blood test positive Iron deficiency anemia Zack Brewer, PAAngelicaC [address] [place] [address] Referral ID Status Reason Start Date Expiration Date Visits Requested Visits Authorized [id number] Authorized Specialty Services Required 01/04/[phone] Encounter Details Date Type Department Care Team Description 01/08/2023 Office Visit Gastroenterology, [facility] [address] [place] [address] Agnes Bowers CRNP [address] [place] [address] Other iron deficiency anemia*; Fecal occult blood test positive Allergies Active Allergy Reactions Severity Noted Date Comments Acetaminophen 05/06/2005 headaches documented as of this encounter (statuses as of 01/09/2023) Medications Medication Sig Dispensed Refills Start Date End Date Status DAILY MULTIVITAMIN PO TABS with lycopene 0 Active BUSPAR 15 MG PO TABS Take by mouth. 0 Active clonazePAM (KLONOPIN) 0.5 MG Tablet TAKE TWO TABLETS AT BEDTIME, MAY TAKE ONE TABLET TWO TIMES A DAY NEEDED FOR ANXIETY ADDITIONALLY 0 7 Active risperiDONE 0.25 MG Oral TabletIndications:p t takes .5 mg at bedtime and .025 mid morning Take 2 Tablets by mouth at bedtime. 0 Active ONETOUCH ULTRA BLUE STRPIndications:Typ e 2 diabetes mellitus with hemoglobin A1c goal of less than 7.0% ([facility]) TEST ONCE DAILY 100 Strip 5 8 Active Ventolin HFA 108 (90 Base) MCG/ACT Inhalation Aerosol SolutionIndications :COPD, moderate ([facility]) Take 2 Puffs by mouth 4 times [...] by mouth in the morning. 0 Active Fluticasone Propionate 50 MCG/ACT Nasal Suspension (Flonase) Administer 2 Sprays into each nostril in the morning. 16 g 1 3 Active Omeprazole 20 MG Oral Capsule Delayed Release (PriLOSEC)Indicatio ns:Gastroesophageal reflux disease without esophagitis TAKE ONE CAPSULE BY MOUTH EVERY MORNING *NEED UPDATED LABS* 90 Capsule 1 3 10/02/19 24 Active Isosorbide Mononitrate ER 60 MG Oral Tablet Extended Release 24 Hour (Imdur)Indications: Coronary artery disease involving [place] coronary artery without angina pectoris TAKE ONE TABLET BY MOUTH EVERY MORNING 90 Tablet 3 3 09/18/19 24 Active Furosemide 40 MG Oral Tablet (Lasix)Indications: HTN, goal below 140/90 TAKE ONE TABLET BY [...] Capsule 0 3 07/08/19 24 Active Tiotropium [place] Monohydrate 18 MCG Inhalation Capsule (Spiriva) INHALE ONE CAPSULE VIA HANDIHALER EVERY MORNING. DO NOT SWALLOW CAPSULE. 90 Capsule 3 3 06/26/19 24 Active Mirtazapine 15 MG Oral Tablet (Remeron) TAKE ONE-HALF TABLET (7.5 MG.) BY MOUTH EVERY NIGHT 45 Tablet 0 3 05/06/19 24 Active Fluticasone-[place] rol 230-21 MCG/ACT Inhalation Aerosol (Advair)Indications :COPD, group B, by GOLD 2017 classification ([facility]) INHALE TWO PUFFS BY MOUTH EVERY MORNING AND INHALE TWO PUFFS BY MOUTH AT BEDTIME, RINSE MOUTH AFTER USE 36 g 3 2 04/17/20 23 Active FLUoxetine HCl 20 MG Oral Capsule (PROzac) TAKE THREE CAPSULES BY MOUTH EVERY MORNING 270 Capsule 0 2 04/03/20 23 Active FLUoxetine HCl 20 MG Oral Capsule (PROzac) take 3 caps by mouth every morning 270 Capsule 0 3 Active Mirtazapine 15 MG Oral Tablet (Remeron) take 1/2 tab (7.5mg) by mouth every night 45 Tablet 0 3 Active Roflumilast 500 MCG Oral Tablet (Daliresp)Indicatio ns:COPD, group D, by GOLD 2017 classification ([facility]) TAKE ONE TABLET BY MOUTH EVERY MORNING [...] Extended Release 24 Hour (toPROL XL)Indications:SVT (supraventricular tachycardia) (HCC),NSVT (nonsustained ventricular tachycardia) (HCC) TAKE ONE TABLET [...] symptoms resolve. 90 Tablet 3 3 Active risperiDONE 0.25 MG Oral Tablet (RisperDAL) TAKE ONE TABLET BY MOUTH EVERY NIGHT AT BEDTIME 90 Tablet 0 3 01/09/20 23 Discontinu ed(Medicat ion List Clean Up) busPIRone HCl 15 MG Oral Tablet (Buspar) TAKE ONE HALF TO ONE TABLET BY MOUTH THREE TIMES A DAY NEEDED FOR ANXIETY 90 Tablet 0 2 01/09/20 23 Discontinu ed(Medicat ion List Clean Up) risperiDONE 0.25 MG Oral Tablet (RisperDAL) TAKE ONE TABLET BY MOUTH EVERY NIGHT AT BEDTIME 90 Tablet 0 2 01/09/20 23 Discontinu ed(Medicat ion List Clean Up) risperiDONE 0.5 MG Oral Tablet (RisperDAL) take 1 tablet by mouth every night at bedtime 90 Tablet 0 3 01/09/20 23 Discontinu ed(Medicat ion List Clean Up) busPIRone HCl 10 MG Oral Tablet (Buspar) take 1 to 2 tablets by mouth twice a day as needed for anxiety 90 Tablet 0 3 01/09/20 23 Discontinu ed(Medicat ion List Clean Up) Hospital, Clinic, or Other Facility Administered Medication [...] as of this encounter (statuses as of 01/09/2023) Active Problems Problem Noted Date Gouty arthropathy [...] long-term current use of insulin 08/02/2018 Old [place] (myocardial infarction) 8 YISSEL treated with BiPAP 01/03/2018 Overview: Wears BiPAP at night Type 2 diabetes mellitus with hemoglobin A1c goal of less than 8.0% 10/23/2014 Overview: ICD-10 update of inactive term CVA, old, 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 PTSD (post-traumatic stress disorder) Gastroesophageal reflux disease without esophagitis 01/05/2014 Coronary artery disease invo lving [place] coronary artery of [place] heart without angina pectoris 11/27/2013 Tobacco abuse 11/27/2013 HTN, goal below 130/80 03/06/2009 Overview: Modified per HTN protocol #16. documented as of this encounter (statuses as of 01/09/2023) Resolved Problems Problem Noted Date Resolved Date [...] as of this encounter (statuses as of 01/09/2023) Immunizations Name Administration Dates Next Due COVID-19 mRNA, LNP-s, No Pre serve, 2-Dose Series (Snapverse) 02/10/2022,07/13/2020,06/17/2020 Pneumococcal Conjugate Vacc, 13 Valent (Prevnar) [...] Day Cigarettes 1.5 69 Smokeless Tobacco: Never Tobacco Cessation:Ready to Q uit: Not Asked; Counseling Given: Not Answered Comments:started age 7 Alcohol Use Standard Drinks/Week [...] Sign Reading Time Taken Comments Blood Pressure 115/78 01/08/2023 1:31 PM EDT Pulse 88 01/08/2023 1:31 PM EDT Temperature 37.1 C (98.7 F) 01/08/2023 1:31 PM ED T Respiratory Rate - - Oxygen Saturation 98% 01/08/2023 1:31 PM EDT Inhaled Oxygen Concentration - - Weight 89.3 kg (196 lb 12.8 oz) 01/08/2023 1:31 PM EDT Height 176.5 cm (5' 9.5") 01/08/2023 1:31 PM EDT Body Mass Index 28.65 01/08/2023 1:31 PM EDT documented in this encounter Progress Notes * CHRISTOPHE Johnson - 01/08/2023 1:45 PM EDT DATE OF SERVICE: 01/08/2023 REFERRING PHYSICIAN: Zack Brewer PA-C CC: Iron deficiency anemia, FOBT + HPI: Walter Don is a 77 year old male, referred by Zack Brewer PA-C for evaluation of iron deficiency anemia and noted to have + FOBT recently. He denies CP, SOB, abd pain, n/v, gross rectal bleeding or dark tarry stools. He is on Eliquis and ASA for hx of CVA and suspected TIAs. Reportshx of stomach ulcers in his mid teens-early 20s w symptoms of hematemesis. He is currently on Vitron C once daily. Denies hx of PRBC or Fe transfusions. B12 and FA levels normal. Last colonoscopy 02/2022: diverticulosis, multiple sessile polyps Last EGD 2010: small hiatal hernia Denies ETOH abuse, NSAIDs. + smoke 1PPD tobacco. Latest Reference Range & Units 12/17/22 13:24 Sodium 135 - 146 mmol/L 143 Potassium 3.5 - 5.1 mmol/L 4.7 Chloride 98 - 107 mmol/L 105 CO2 22 - 32 mmol/L 24 BUN 6 - 20 mg/dL 25 (H) Creatinine 0.6 - 1.2 mg/dL 1.6 (H) Estimated Glomerular Filtration Rate >=60 mL/min 44 (L) Anion Gap 7 - 15 mmol/L 14 Glucose 70 - 120 mg/dL 86 Calcium 8.4 - 10.2 mg/dL 9.3 Magnesium 1.5 - 2.6 mg/dL 2.1 Protein 6.0 - 8.3 g/dL 6.3 Folic Acid >4.5 ng/mL >20.0 Uric Acid 3.4 - 7.0 mg/dL 10.0 (H) TSH 0.27 - 4.20 uIU/mL 2.00 CBC Rpt ! WBC 4.00 - 10.80 K/uL 6.97 HGB 14.0 - 16.8 g/dL 9.8 (L) HCT 40.0 - 48.4 % 32.2 (L) MCV 82.0 - 99.5 fL 89.7 PLT 140 - 400 K/uL 257 IRON SCREEN, INCLUDING TIBC Rpt ! Iron 45 - 176 ug/dL 33 (L) Iron Binding Capacity 250 - 425 ug/dL 317 Transferrin Saturation Percent 15 - 55 % 10 (L) Ferritin 30 - 400 ng/mL 27 (L) Vitamin B12 232 - 1,245 pg/mL 1,171 Immature Reticuloctye Fraction 2.5 - 20.6 % 30.8 (H) Reticulocyte Hemoglobin 29.7 - 37.4 pg 30.4 Absolute Reticulocyte 31.3 - 100.1 K/uL 62.8 Reticulocyte Percent 0.80 - 1.90 % 1.75 Albumin 3.8 - 5.0 g/dL 3.8 AST 10 - 50 U/L 17 ALT 10 - 50 U/L 13 Alkaline Phosphatase 35 - 130 U/L 132 (H) Bilirubin, Total <=1.2 mg/dL <0.2 (H): Data is abnormally high (L): Data is abnormally low !: Data is abnormal Rpt: View report in Results Review for more information Past Medical History: Diagnosis Date Asthma Benign [...] Father Heart disease Brother Heart disease Brother Past Surgical History: Procedure Laterality Date BRONCHOSCOPY, DIAGNOSTIC N/A 06/12/2020 BRONCHOSCOPY DIAGNOSTIC WITH OR WITHOUT WASHING performed by Warren Patel MD at ENDOSCOPY [facility] COLONOSCOPY THRU STOMA, W/BIOPSY 05/28/2010 andenomatous tissue--repeat in 3 months COLONOSCOPY THRU STOMA, W/BIOPSY 09/18/2010 adenomatous-repeat colonoscopy in 3-6 months COLONOSCOPY THRU STOMA, W/BIOPSY 04/09/2011 polyps x3 , path shows adenomatous tissue repeat in 1 years COLONOSCOPY, DIAGNOSTIC (RECTUM) 05/20/2016 adenomatous polyps, poor prep, diverticulosis, repeat 3 yrs/[facility] COLONOSCOPY, DIAGNOSTIC (RECTUM) 06/06/2019 hemorrhoids/diverticulosis sigmoid and descending colon/small AVM/biopsies show adenomatous polyps/recall 6-9 months/COLONOSCOPY FLEXIBLE PROXIMAL DIAGNOSTIC performed by Clemencia Marinelli MD atENDOSCOPY [facility] COLONOSCOPY, DIAGNOSTIC (RECTUM) 03/05/2022 benign adenomatous polyp, repeat 1 yr / COLONOSCOPY FLEXIBLE PROXIMAL DIAGNOSTIC performed by Clemencia Marinelli MD at ENDOSCOPY [facility] L-/S-SPINE PARAVERTEBRAL FACET INJ,1 LEVEL 11/25/2022 L-/S-SPINE PARAVERTEBRAL FACET INJ, 1 LEVEL performed by Pb Alexander DO at [facility] L-/S-SPINE PARAVERTEBRAL FACET INJ,1 LEVEL 01/06/2023 L-/S-SPINE PARAVERTEBRAL FACET INJ, 1 LEVEL performed by Pb Alexander DO at OR [facility] L-/S-SPINE PARAVERTEBRL FACET INJ,2 LEVELS 11/25/2022 L-/S-SPINE PARAVERTEBRAL FACET INJ, 2 LEVELS performed by Pb Alexander DO at OR [facility] L-/S-SPINE PARAVERTEBRL FACET INJ,2 LEVELS 01/06/2023 L-/S-SPINE PARAVERTEBRAL FACET INJ, 2 LEVELS performed by [place] Zander Alexander DO at OR [facility] MISCELLANEOUS ORDER ([facility] ONLY) 1998 henria repair OTHER (INFORMATION) pilonidal cyst removal OTHER (INFORMATION) repair of bilateral shoulder for bone spur and repair of torn muscles right shoulder REMOVE CATARACT, INSERT LENS PROSTH Left 06/01/2017 left EXTRACAPSULAR CATARACT REMOVAL WITH INTRAOCULAR LENS performed by Nikhil Bolton MD at [facility] REMOVE CATARACT, INSERT LENS PROSTH Right 06/08/2017 right EXTRACAPSULAR CATARACT REMOVAL WITH INTRAOCULAR LENS performed by Nikhil Bolton MD at OR [facility] Social History Tobacco Use Smoking status: Every [...] 15 MG PO TABS Take by mouth. clonazePAM (KLONOPIN) 0.5 MG Tablet TAKE TWO TABLETS AT BEDTIME, MAY TAKE ONE TABLET TWO TIMES A DAY NEEDED FOR ANXIETY ADDITIONALLY 0 risperiDONE 0.25 MG Oral Tablet Take 2 Tablets by mouth at bedtime. ClickFox ULTRA BLUE STRP TEST ONCE DAILY 100 [...] Capsule 3 BiPAP every night at bedtime. Fluticasone Propionate 50 MCG/ACT Nasal Suspension (Flonase) Administer 2 Sprays into each nostril in the morning. 16 g 1 Omeprazole 20 MG Oral Capsule Delayed Release [...] BY MOUTH EVERY MORNING 100 Tablet 1 Mirtazapine 15 MG Oral Tablet (Remeron) TAKE ONE-HALF TABLET BY MOUTH EVERY NIGHT 45 Tablet 0 FLUoxetine HCl 20 MG Oral Capsule (PROzac) TAKE THREE CAPSULES BY MOUTH EVERY MORNING 270 Capsule 0 Tiotropium [place] Monohydrate 18 MCG Inhalation Capsule (Spiriva) INHALE [...] by mouth every night 45 Tablet 0 Roflumilast 500 MCG Oral Tablet (Daliresp) [...] after until symptoms resolve. 90 Tablet 3 Vitamin B-12 1000 MCG Oral Tablet (Cyanocobalamin) Take 1 Tablet by mouth in the morning. (Patient not taking: Reported on 01/08/2023) Current Facility-Administered Medications Medication Dose Route Frequency [...] Landrum MD 2.5 mg at 04/14/22 1246 REVIEW OF SYSTEMS: See HPI above; All other findings negative. EXAM: Filed Vitals: 01/08/23 1331 BP: 115/78 Pulse: 88 Temp: 37.1 C (98.7 F) SpO2: 98% Weight: 89.3 kg (196 lb 12.8 oz) Height: 1.765 m (5' 9.5") GENERAL: Well developed and well nourished in no acute distress. SKIN: No rashes, ulcers, jaundice or spider angiomata. HEENT: Normocephalic, sclera clear. NECK: Supple, trachea midline, no JVD. LUNGS: Clear to auscultation bilaterally, no respiratory distress or accessory muscles used. HEART: Regular rate & rhythm, no murmurs and no gallops. ABDOMEN: Normal bowel sounds, soft and nontender. EXTREMITIES: No palmar erythema, no ankle edema, no skin discoloration, no clubbing, no cyanosis. NEURO: No lateralizing findings. Sensory/Motor grossly normal. ASSESSMENT AND PLAN: Walter Don is a 77 year old male w Fe deficiency anemia and + FOBT testswo gross GI bleeding symptoms, on setting of Eliquis and ASA uses. + tobacco user, denies ETOH, NSAIDs. - Omeprazole 20mg daily - Vitron C once daily - Schedule repeat EGD and colonoscopy - ED if gross GI bleeding noted - Avoid ETOH, NSAIDs. I spent a total of 45 minutes on the date of service in review of patient's record, and previously obtained information in person and appropriate medical visit, discussion and education of plan, withpatient and/or caregiver, placing orders for tests/referral/procedures as medically necessary and documentation of pertinent clinical information in patient's medical records for their visit today. RETURN TO CLINIC: 3 months or sooner [facility] 01/08/2023 documented in this encounter Nursing Notes * Mackenzie Zuniga LPN - 01/08/2023 1:25 PM EDT Patient identified by name and date of . Chief Complaint Patient presents with NEW PATIENT FOBT +.,CHARANJIT, documented in this encounter Plan of Treatment Upcoming Encounters Date Type Specialty Care Team Description 01/11/2023 Office Visit Cardiology Deisy Aguirre CRNP [address] [place] [address] 01/15/2023 Office Visit Family Medicine Johnnie Newby MD [address] [place] [address] 02/11/2023 Office Visit Sleep Disorders Hui Bishop CRNP [address] [place] [address] 02/26/2023 Office Visit Podiatry Bettye Herrmann, DPLiat [address] [place] [address] 04/20/2023 Hospital Encounter Endoscopy Liz Rosales MD [address] [place] [phone] 04/20/2023 Surgery Endoscopy Liz Rosales MD [address] [place] [id number] COLONOSCOPY FLEXIBLE PROXIMAL DIAGNOSTIC 05/05/2023 Office Visit Gastroenterology Agnes Bowers CRNP [address] [place] [address] 07/08/2023 Imaging Radiology 07/13/2023 Office Visit Radiation Oncology Shawna Johnson MD [address] [place] [address] [place] [address] Scheduled Orders Name Type Priority Associated Diagnoses Orde r Schedule EGD, FLEXIBLE, DIAGNOSTIC Procedures Routine Other iron deficiency anemia Ordered: 01/08/2023 COLONOSCOPY, DIAGNOSTIC (RECTUM) Procedures Routine Other iron deficiency anemia Ordered: 01/08/2023 Scheduled Procedures Name Priority Associated Diagnoses Date/Ti me COLONOSCOPY FLEXIBLE PROXIMA L DIAGNOSTIC Recall History of colon polyps Other iron deficiency anemia 04/20/2023 9:00 AM EST ESOPHAGOGASTRODUODENOSCOPY ( EGD), FLEXIBLE, TRANSORAL, DIAGNOSTIC Recall History of colon polyps Other iron deficiency anemia 04/20/2023 9:00 AM EST Health Maintenance Due Date Last Done Comments Depression Screening 05/31/2020 05/31/2019 COVID-19 Vaccine (4 - Pfizer series) 04/07/2022 02/10/2022, 07/13/2020, 06/17/2020 Albumin/Creatinine Ratio 06/04/2022 022, 04/04/2018, 11/10/2016, Additional history exists HbA1c 12/03/2022 06/05/2022, 11/17, 06/03/2021, Additional history exists COLONOSCOPY-ANNUAL AGES 18-100 03/05/2023 03/05/2022, 03/05/2022, 06/06/2019, Additional history exists O2 ASSESSMENT COMPLETED IN PAST YEAR FOR COPD 03/05/2023 03/05/2022 DIABETES-EYE EXAM 04/09/2023 04/09/2022, , 03/30/2020, Additional history exists DISCUSS TOBACCO CESSATION (REFER TO SMARTSET #9752) 05/01/2023 05/01/2022, 02/13/2022 CKD PHOS USE SMARTSET 34746 06/05/202305/20, 06/03/2021, 06/04/2020, Additional history exists GFR 06/17/2023 12/17/2022, 05/20, 12/02/2021, Additional history exists Diabetic Foot Exam 09/10/2023 09/09/2022, 1 , 11/12/2017, Additional history exists DTaP,Tdap,and Td Vaccines (2 - Td or Tdap) 01/06/2024 01/05/2014 CKD HGB USE SMARTSET 56019 01/09/202401/08, 12/17/2022, 07/17/2021, Additional history exists Pneumococcal Vaccine: 65+ Years Completed 11/07/2015, 04/06/2014 Alpha-1 Antitrypsin Completed 05/22/2019 Zoster Vaccines Completed 02/27/2020, 11/17, 01/05/2014 Hepatitis C Screening Completed 12/02/2021 , 12/02/2021, 12/02/2021 Influenza Vaccine (FLU shot) Completed , 02/10/2022, [...] this encounter Medical Devices Implanted Type Area Hazmat Technician Device Identifier Shelf Expiration Date Model / Serial / Lot Lens Intraoc 24.0 - [id number] - [id number] Implanted:Qty: 1 on 06/01/2017 by Nikhil Bolton MD at OR [facility] Left: Eye [employer]CH [employer]OMB 07/17/2021 [id number] / [id number] / [id number] Lens Intraoc 24.0 - [id number] - [id number] Implanted:Qty: 1 on 06/08/2017 by Nikhil Bolton MD at OR [facility] Right: Eye BAUSCH [employer] LOMB 07/17/2021 [id number] / [id number] / [id number] documented as of this encounter Procedures Procedure Name Priority Date/Time Associated Diagnosis Comments CRP (INFLAMMATORY MARKER) Routine 01/08/2023 2:22 PM EDT Other iron deficiency anemia TISSUE TRANSGLUTAMINASE IGA ANTIBODY Routine 01/08/2023 2:22 PM EDT Other iron deficiency anemia IGA Routine 01/08/2023 2:22 PM EDT Other iron deficiency anemia ERYTHROCYTE SEDIMENTATION RATE (ESR) Routine 01/08/2023 2:22 PM EDT Other iron deficiency anemia documented in this encounter Results * CRP (INFLAMMATORY MARKER) (01/08/2023 2:22 PM EDT) Pathologist [facility] CRP (Inflammatory Marker) 4 <=5 mg/L 01/09/2023 2:21 AM EDT LABORATORY [facility] Blood Venous blood specimen / Unknown Venipuncture / Unknown 01/08/2023 2:22 PM EDT 01/08/2023 2:22 PM EDT Agnes SAEED LAB BLOOD ORDER PAULINE Performing Organization Address City/[facility]/ZIP Co de Phone Number LABORATORY [facility] [address] [place] [address] * (ABNORMAL) ERYTHROCYTE SEDIMENTATION RATE (ESR) (01/08/2023 2:22 PM EDT) Pathologist [facility] ESR 59(H) <20 mm/hour 01/08/2023 11:26 PM EDT LABORATORY GMC Blood Venous blood specimen / Unknown Venipuncture / Unknown 01/08/2023 2:22 PM EDT 01/08/2023 2:22 PM EDT Agnes SAEED LAB BLOOD ORDER PAULINE Performing Organization Address City/[facility] Co de Phone Number LABORATORY [facility] [address] [place] [address] * IGA (01/08/2023 2:22 PM EDT) Pathologist [facility] IgA 140 70 - 400 mg/dL 01/09/2023 2:21 AM EDT LABORATORY G[facility] Blood Venous blood specimen / Unknown Venipuncture / Unknown 01/08/2023 2:22 PM EDT 01/08/2023 2:22 PM EDT Agnes SAEED LAB BLOOD ORDER PAULINE Performing Organization Address City/[facility]/ZIP Co de Phone Number LABORATORY [facility] [address] [place] [address] * TISSUE TRANSGLUTAMINASE IGA ANTIBODY (01/08/2023 2:22 PM EDT) Tissue Transglutaminase IgA Antibody Interpretation Negative Negative 01/09/2023 12:56 PM EDT LABORATORY GMC Tissue Transglutaminase IgA Antibody Value <0.2 <7 U/mL 01/09/2023 12:56 PM EDT LABORATORY GM Blood Venous blood specimen / Unknown Venipuncture / Unknown 01/08/2023 2:22 PM EDT 01/08/2023 2:22 PM EDT Agnes SAEED LAB BLOOD ORDER PAULINE LABORATORY [facility] [address] [place] [address] documented in this encounter Visit Diagnoses Diagnosis Other iron deficiency anemia- Primary Fecal occult blood test positive Nonspecific abnormal finding in stool contents History of colon polyps Personal history of colonic polyps Other iron deficiency anemia documented in this encounter Advance Directives Documents on File Type Date Recorded 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 Care Teams Diversity Specialist Relationship Specialty Start Date End Date Johnnie Newby MD [address] [place] [address] PCP - General Family Medicine 09/13/20 documented as of this encounter
--- OUTSIDE RECORDS SUMMARY | 2023-04-15 00:18 | External Medical Summary | Summary of Care ---
Author Name Unknown Organization [facility] Address [address] [facility] [place] [address] Phone [phone] Care Team Providers Care Child Care Associate Teacher Name Role Phone Johnnie Newby MD Primary Care Provider [phone] Encounter Details Date Type Department Care Team Description 01/12/2023 Telephone Interventional Pain Center, [facility] [address] [facility] [place] [address] Cousins, Pb Fermin, [address] [facility] [place] [address] Allergies Active Allergy Reactions Severity Noted Date Comments Acetaminophen 05/06/2005 headaches documented as of this encounter (statuses as of 01/12/2023) Medications Medication Sig Dispensed Refills Start Date [...] nostril in the morning. 16 g 1 09/09/2022 Active Omeprazole 20 MG Oral Capsule Delayed Release (PriLOSEC)Indication s:Gastroesophageal reflux disease without esophagitis TAKE ONE CAPSULE BY MOUTH EVERY MORNING *NEED UPDATED LABS* 90 Capsule 1 10/02/2022 4 Active Isosorbide Mononitrate ER 60 MG Oral Tablet Extended Release 24 Hour (Imdur)Indications:C oronary artery disease involving [place] coronary artery without angina pectoris TAKE ONE TABLET BY MOUTH EVERY MORNING 90 Tablet 3 09/18/2022 4 Active Furosemide 40 MG Oral Tablet (Lasix)Indications:H TN, goal below 140/90 TAKE ONE TABLET BY MOUTH EVERY MORNING 100 Tablet 1 09/18/2022 4 Active Lisinopril 20 MG Oral Tablet (Prinivil)Indication s:HTN, goal below 140/90 TAKE ONE TABLET BY MOUTH EVERY MORNING 90 Tablet 2 09/18/2022 4 Active metFORMIN HCl 1000 MG Oral Tablet (Glucophage) TAKE ONE TABLET BY MOUTH EVERY MORNING 100 Tablet 1 09/03/2022 4 Active Mirtazapine 15 MG Oral Tablet (Remeron) TAKE ONE-HALF TABLET BY MOUTH EVERY NIGHT 45 Tablet 0 08/17/2022 4 Active FLUoxetine HCl 20 MG Oral Capsule (PROzac) TAKE THREE CAPSULES BY MOUTH EVERY MORNING 270 Capsule 0 07/08/2022 4 Active Tiotropium [place] Monohydrate 18 MCG Inhalation Capsule (Spiriva) INHALE ONE CAPSULE VIA HANDIHALER EVERY MORNING. DO NOT SWALLOW CAPSULE. 90 Capsule 3 06/26/2022 4 Active Mirtazapine 15 MG Oral Tablet (Remeron) TAKE ONE-HALF TABLET (7.5 MG.) BY MOUTH EVERY NIGHT 45 Tablet 0 05/06/2022 4 Active Fluticasone-Salmeter ol 230-21 MCG/ACT Inhalation Aerosol (Advair)Indications: COPD, group B, by GOLD 2017 classification ([facility]) INHALE TWO PUFFS BY MOUTH EVERY MORNING AND INHALE TWO PUFFS BY MOUTH AT BEDTIME, RINSE MOUTH AFTER USE 36 g 3 04/17/2022 3 Active FLUoxetine HCl 20 MG Oral Capsule (PROzac) TAKE THREE CAPSULES BY MOUTH EVERY MORNING 270 Capsule 0 04/03/2022 3 Active FLUoxetine HCl 20 MG Oral Capsule (PROzac) take 3 caps by mouth every morning 270 Capsule 0 11/16/2022 Active Mirtazapine 15 MG Oral Tablet (Remeron) take 1/2 tab (7.5mg) by mouth every night 45 Tablet 0 11/16/2022 Active Roflumilast 500 MCG Oral Tablet (Daliresp)Indication [...] ventricular tachycardia) ([facility]) TAKE ONE TABLET BY MOUTH EVERY DAY [...] symptoms resolve. 90 Tablet 3 12/23/2022 Active Hospital, Clinic, or Other Facility Administered [...] as of this encounter (statuses as of 01/12/2023) Active Problems Problem Noted Date Gouty arthropathy [...] long-term current use of insulin 08/02/2018 Old [place] (myocardial infarction) 8 YISSEL treated with BiPAP 01/03/2018 Overview: Wears BiPAP at night Type 2 diabetes mellitus with hemoglobin A1c goal of less than 8.0% 10/23/2014 Overview: ICD-10 update of inactive term CVA, old, 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 PTSD (post-traumatic stress disorder) Gastroesophageal reflux disease without esophagitis 01/05/2014 Coronary artery disease invo lving [place] coronary artery of [place] heart without angina pectoris 11/27/2013 Tobacco abuse 11/27/2013 HTN, goal below 130/80 03/06/2009 Overview: Modified per HTN protocol #16. documented as of this encounter (statuses as of 01/12/2023) Resolved Problems Problem Noted Date Resolved Date [...] as of this encounter (statuses as of 01/12/2023) Immunizations Name Administration Dates Next Due COVID-19 mRNA, LNP-s, No Pre serve, 2-Dose Series (Splashscore) 02/10/2022,07/13/2020,06/17/2020 Pneumococcal Conjugate Vacc, 13 Valent (Prevnar) [...] encounter Miscellaneous Notes * Telephone Encounter - Pb Alexander DO - 01/12/2023 7:15 AM EDT Will need to stop Eliquis, 3 days prior to injection. * Telephone Encounter - Pb Alexander DO - 01/12/2023 7:13 AM EDT ----- Message from Warren Montoya DO sent at 01/08/2023 12:56 PM EDT ----- Regarding: RE: Nicola Ambriz, I think it would be ok to stop the Eliquis for a few days so he can have an injection to relieve his pain. Sohan Bishop ----- Message ----- From: Pb Alexander DO Sent: 01/08/2023 12:21 PM EDT To: Warren Montoya DO Subject: Walter Dao was scheduled for lumbar facet RFA for chronic back pain, but has been started on Eliquis since his initial diagnostic injections. I'd appreciate your input regarding the advisability of stopping Eliquis for 3 days prior to the procedure. It is elective if it is best to wait. Thanks Pb documented in this encounter Plan of Treatment Upcoming Encounters Date Type Specialty Care Team Description 01/14/2023 Hospital Encounter Endoscopy Destiny Mojica DO [address] [place] [address] 01/14/2023 Surgery Endoscopy Destiny Mojica DO [address] [place] [address] COLONOSCOPY FLEXIBLE PROXIMAL DIAGNOSTIC 01/15/2023 Office Visit Family Medicine Johnnie Nebwy MD [address] [place] [address] 02/11/2023 Office Visit Sleep Disorders Hui Bishop CRNP [address] [place] [address] 02/26/2023 Office Visit Podiatry Bettye Herrmann DPM [address] [facility] [place] [id number] 03/10/2023 Office Visit Cardiology Deisy Aguirre CRNP [address] [place] [address] 05/05/2023 Office Visit Gastroenterology Agnes Bowers CRNP [address] [place] [address] 07/08/2023 Imaging Radiology 07/13/2023 Office Visit Radiation Oncology Shawna Johnson MD [facility] [place] [address] Scheduled Orders Name Type Priority Associated Diagnoses Orde r Schedule DESTROY LUMBAR SACRAL NERVE IMAGING SINGLE Procedures Routine 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 radiculopathy Expected: 02/11/2023, Expires: 02/12/2024 DESTROY LUMBAR SACRAL NERVE IMAGING ADD'L Procedures Routine 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 radiculopathy Expected: 02/11/2023, Expires: 02/12/2024 Scheduled Procedures Name Priority Associated Diagnoses Date/Ti me COLONOSCOPY FLEXIBLE PROXIMA L DIAGNOSTIC Recall History of colon polyps Other iron deficiency anemia 01/14/2023 2:15 PM EDT ESOPHAGOGASTRODUODENOSCOPY ( EGD), FLEXIBLE, TRANSORAL, DIAGNOSTIC Recall History of colon polyps Other iron deficiency anemia 01/14/2023 2:15 PM EDT Health Maintenance Due Date Last Done Comments Depression Screening 05/31/2020 05/31/2019 COVID-19 Vaccine (4 - Pfizer series) 04/07/2022 02/10/2022, 07/13/2020, 06/17/2020 Albumin/Creatinine Ratio 06/04/20222 022, 04/04/2018, 11/10/2016, Additional history exists HbA1c 12/03/2022 06/05/2022, 0809/2021, 06/03/2021, Additional history exists COLONOSCOPY-ANNUAL AGES 18-100 03/05/2023 03/05/2022, 03/05/2022, 06/06/2019, Additional history exists O2 ASSESSMENT COMPLETED IN PAST YEAR FOR COPD 03/05/2023 03/05/2022 DIABETES-EYE EXAM 04/09/2023 04/09/2022, , 03/30/2020, Additional history exists DISCUSS TOBACCO CESSATION (REFER TO SMARTSET #0331) 05/01/2023 05/01/2022, 02/13/2022 CKD PHOS USE SMARTSET 79801 06/05/202305/20, 06/03/2021, 06/04/2020, Additional history exists GFR 06/17/2023 12/17/2022, 05/20, 12/02/2021, Additional history exists Diabetic Foot Exam 09/10/2023 09/09/2022, 1 , 11/12/2017, Additional history exists DTaP,Tdap,and Td Vaccines (2 - Td or Tdap) 01/06/2024 01/05/2014 CKD HGB USE SMARTSET 86826 01/09/202401/08, 12/17/2022, 07/17/2021, Additional history exists Pneumococcal [...] this encounter Medical Devices Implanted Type Area Mold Loft Worker Device Identifier Shelf Expiration Date Model / Serial / Lot Lens Intraoc 24.0 - [id number] - [id number] Implanted:Qty: 1 on 06/01/2017 by Nikhil Bolton MD at OR [facility] Left: Eye BAUSCH [employer] LOMB 07/17/2021 [id number] / [id number] / [id number] Lens Intraoc 24.0 - [id number] - [id number] Implanted:Qty: 1 on 06/08/2017 by Nikhil Bolton MD at OR [facility] Right: Eye BAUSCH & LOMB 07/17/2021 [id number] / [id number] / [id number] documented as of this encounter Visit Diagnoses Diagnosis 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 radiculopathy- Primary Lumbosacral spondylosis without myelopathy History of colon polyps Personal history of colonic polyps Other iron deficiency anemia documented in this encounter Advance Directives Documents on File Type Date Recorded Patient Wool Scourer Expl anation Advance Directives and Yu fine [...] and were consensually agreed upon. Care Teams Child Care Associate Teacher Relationship Specialty Start Date End Date Johnnie Newby MD [address] [facility] [place] [address] PCP - General Family Medicine 09/13/20 documented as of this encounter
--- OUTSIDE RECORDS SUMMARY | 2023-04-15 00:18 | External Medical Summary | Summary of Care ---
Author Name Unknown Organization [facility] Address [address] [place] [address] Phone [phone] Care Team Providers Care It Infrastructure Manager Name Role Phone Johnnie Newby MD Primary Care Provider [phone] Reason for Visit * Reason Comments Outpatient Testing Encounter Details Date Type Department Care Team Description 01/08/2023 Laboratory Laboratory, [facility] [address] [place] [address] [facility] [address] [place] [address] Anemia Allergies Active Allergy Reactions Severity Noted Date Comments Acetaminophen 05/06/2005 headaches documented as of this encounter (statuses as of 01/08/2023) Medications Medication Sig Dispensed Refills Start Date End Date Status DAILY MULTIVITAMIN PO TABS with lycopene 0 Active BUSPAR 15 MG PO TABS Take by mouth. 0 Active clonazePAM (KLONOPIN) 0.5 MG Tablet TAKE TWO TABLETS AT BEDTIME, MAY TAKE ONE TABLET TWO TIMES A DAY NEEDED FOR ANXIETY ADDITIONALLY 0 06/17/2016 Active risperiDONE 0.25 MG Oral [...] 24 Hour (Imdur)Indications:C oronary artery disease involving [place] coronary artery without angina pectoris TAKE [...] 270 Capsule 0 07/08/2022 4 Active Tiotropium [place] Monohydrate 18 MCG Inhalation Capsule (Spiriva) INHALE [...] Release 24 Hour (toPROL XL)Indications:SVT (supraventricular tachycardia) ([facility]),NSVT (nonsustained ventricular tachycardia) ([facility] [...] as of this encounter (statuses as of 01/08/2023) Active Problems Problem Noted Date Gouty arthropathy [...] long-term current use of insulin 08/02/2018 Old [place] (myocardial infarction) 8 YISSEL treated with BiPAP 01/03/2018 Overview: Wears BiPAP at night Type 2 diabetes mellitus with hemoglobin A1c goal of less than 8.0% 10/23/2014 Overview: ICD-10 update of inactive term CVA, old, 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 PTSD (post-traumatic stress disorder) Gastroesophageal reflux disease without esophagitis 01/05/2014 Coronary artery disease invo lving [place] coronary artery of [place] heart without angina pectoris 11/27/2013 Tobacco abuse 11/27/2013 HTN, goal below 130/80 03/06/2009 Overview: Modified per HTN protocol #16. documented as of this encounter (statuses as of 01/08/2023) Resolved Problems Problem Noted Date Resolved Date [...] as of this encounter (statuses as of 01/08/2023) Immunizations Name Administration Dates Next Due COVID-19 [...] Office Visit Cardiology Deisy Aguirre CRNP [address] [place] [address] 01/15/2023 Office Visit Family Medicine Johnnie Newby MD [address] [place] [address] 02/11/2023 Office Visit Sleep Disorders Hui Bishop CRNP [address] [place] [address] 02/26/2023 Office Visit Podiatry Bettye Herrmann DPM [address] [place] [address] 04/20/2023 Hospital Encounter Endoscopy Liz Rosales MD [address] [place] [address] 04/20/2023 Surgery Endoscopy Liz Rosales MD [address] [place] [phone] COLONOSCOPY FLEXIBLE PROXIMAL DIAGNOSTIC 05/05/2023 Office Visit Gastroenterology Agnes Bowers CRNP [address] [place] [address] 07/08/2023 Imaging Radiology 07/13/2023 Office Visit Radiation Oncology Shawna Johnson MD [address] [place] [address] [place] [address] Pending Results Name Type Priority Associated Diagnoses Date /Time CBC Lab Routine Anemia 01/08/2023 2:22 PM EDT Scheduled Procedures Name Priority Associated Diagnoses [...] 05/01/2023 05/01/2022, 02/13/2022 CKD PHOS USE SMARTSET 02535 06/05/202305/20, 06/03/2021, 06/04/2020, Additional history exists GFR 06/17/2023 12/17/2022, 05/20, 12/02/2021, Additional history exists Diabetic Foot Exam 09/10/2023 09/09/2022, 1 , 11/12/2017, Additional history exists CKD HGB USE SMARTSET 79542 12/18/202312/17, 07/17/2021, 07/17/2021, Additional history exists DTaP,Tdap,and Td Vaccines (2 - Td or Tdap) 01/06/2024 01/05/2014 Pneumococcal Vaccine: 65+ Years Completed 11/07/2015, 04/06/2014 [...] this encounter Medical Devices Implanted Type Area Fitness Studies Teacher Device Identifier Shelf Expiration Date Model / Serial / Lot Lens Intraoc 24.0 - [id number] - [id number] Implanted:Qty: 1 on 06/01/2017 by Nikhil Bolton MD at OR [facility] Left: Eye BAUSCH [employer] LOMB 07/17/2021 [id number] / [id number] / [id number] Lens Intraoc 24.0 - [id number] - [id number] Implanted:Qty: 1 on 06/08/2017 by Nikhil Bolton MD at OR [facility] Right: Eye BAUSCH & LOMB 07/17/2021 [id number] / [id number] / [id number] documented as of this encounter Visit Diagnoses Diagnosis Anemia Anemia, unspecified History of colon polyps Personal history of colonic polyps Other iron deficiency anemia documented in this encounter Advance Directives Documents on File Type Date Recorded Patient Fleecer Expl anation Advance Directives and Livin g [...] were consensually agreed upon. Care Teams It Infrastructure Manager Relationship Specialty Start Date End Date Johnnie Newby MD [address] [place] [address] PCP - General Family Medicine 09/13/20 documented as of this encounter
--- OUTSIDE RECORDS SUMMARY | 2023-04-15 00:18 | External Medical Summary ---
Author Name Unknown Address Unknown Organization K01:[facility] [place] [address] Laboratory Report Ordering Provider Test Date Status ERIN JANSEN 01/08/2023 14:22:35 Final Observation Date Value Abnormality Reference (Units ) Status Tissue transglutaminase IgA Ab [Presence] in Serum by Immunoassay 01/08/2023 14:22:35 Negative Negative Final Tissue transglutaminase IgA Ab [Units/volume] in Serum by Immunoassay 01/08/2023 14:22:35 <0.2 <7 (U/mL) Final Performing Location [facility] [place] [address]
--- OUTSIDE RECORDS SUMMARY | 2023-04-15 00:18 | External Medical Summary | Summary of Care ---
Author Name Unknown Organization [facility] Address [address] [place] [facility] [place] [place] [address] Phone [phone] Care Team Providers Care Setter Automatic Spinning Lathe Name Role Phone Johnnie Newby MD Primary Care Provider [phone] Reason for Visit * Reason Onset Date Comments Follow Up 01/07/2023 Encounter Details Date Type Department Care Team Description 01/07/2023 Telephone Interventional Pain Center, [facility] [address] [place] [address] Cousins, Pb Fermin DO [address] [facility] [place] [address] Follow Up Allergies Active Allergy Reactions Severity Noted Date [...] 0 06/17/2016 Active risperiDONE 0.25 MG Oral TabletIndications:p t [...] 24 Hour (Imdur)Indications: Coronary artery disease involving [place] coronary artery without angina pectoris TAKE ONE TABLET BY MOUTH EVERY MORNING 90 Tablet 3 09/18/2022 4 Active Furosemide 40 MG Oral Tablet (Lasix)Indications: [...] 270 Capsule 0 07/08/2022 4 Active Tiotropium [place] Monohydrate 18 MCG Inhalation Capsule (Spiriva) INHALE ONE CAPSULE VIA HANDIHALER EVERY MORNING. DO NOT SWALLOW CAPSULE. 90 Capsule 3 06/26/2022 4 Active Mirtazapine 15 MG Oral Tablet (Remeron) TAKE ONE-HALF TABLET (7.5 MG.) BY MOUTH EVERY NIGHT 45 Tablet 0 05/06/2022 4 Active Fluticasone-[place]met[place] rol 230-21 MCG/ACT Inhalation Aerosol (Advair)Indications :COPD, group B, by GOLD 2017 classification ([facility] [...] 11/16/2022 Active Roflumilast 500 MCG Oral Tablet (Daliresp)Indicatio ns:COPD, group D, by GOLD 2017 classification ([facility] [...] (toPROL XL)Indications:SVT (supraventricular tachycardia),NSVT (nonsustained ventricular tachycardia) ([facility]) TAKE ONE TABLET BY MOUTH EVERY DAY [...] symptoms resolve. 90 Tablet 3 12/23/2022 Active risperiDONE 0.25 MG Oral Tablet (RisperDAL) TAKE ONE TABLET BY MOUTH EVERY NIGHT AT BEDTIME 90 Tablet 0 05/06/2022 3 Discontinu ed(Medicat ion List Clean Up) busPIRone HCl 15 MG Oral Tablet (Buspar) TAKE ONE HALF TO ONE TABLET BY MOUTH THREE TIMES A DAY NEEDED FOR ANXIETY 90 Tablet 0 04/03/2022 3 Discontinu ed(Medicat ion List Clean Up) risperiDONE 0.25 MG Oral Tablet (RisperDAL) TAKE ONE TABLET BY MOUTH EVERY NIGHT AT BEDTIME 90 Tablet 0 01/29/2022 3 Discontinu ed(Medicat ion List Clean Up) risperiDONE 0.5 MG Oral Tablet (RisperDAL) take 1 tablet by mouth every night at bedtime 90 Tablet 0 11/16/2022 3 Discontinu ed(Medicat ion List Clean Up) busPIRone HCl 10 MG Oral Tablet (Buspar) take 1 to 2 tablets by mouth twice a day as needed for anxiety 90 Tablet 0 12/17/2022 3 Discontinu ed(Medicat ion List Clean Up) Hospital, [...] long-term current use of insulin 08/02/2018 Old [place] (myocardial infarction) 8 YISSEL treated with BiPAP 01/03/2018 Overview: Wears BiPAP at night Type 2 diabetes mellitus with hemoglobin A1c goal of less than 8.0% 10/23/2014 Overview: ICD-10 update of inactive term CVA, old, 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 PTSD (post-traumatic stress disorder) Gastroesophageal reflux disease without esophagitis 01/05/2014 Coronary artery disease invo lving [place] coronary artery of [place] heart without angina pectoris 11/27/2013 Tobacco abuse [...] moderate 01/05/2014 04/25/2018 Depression, major, recurrent 01/05/2014 02/ Generalized anxiety disorder 01/05/2014 Benign neoplasm of [...] mRNA, LNP-s, No Pre serve, 2-Dose Series ([place]) 02/10/2022,07/13/2020,06/17/2020 Pneumococcal Conjugate Vacc, 13 Valent (Prevnar) [...] encounter Miscellaneous Notes * Telephone Encounter - Destiny Vidal LPN - 01/12/2023 3:22 PM EDT See other enc from 01/12 * Telephone Encounter - Pb Alexander DO - 01/08/2023 12:16 PM EDT I will send message to cardiology about stopping Eliquis for RFA. * Telephone Encounter - Destiny Vidal LPN - 01/07/2023 3:56 PM EDT 90% improvement for 4hrs after injection yesterday. Easier to walk and do ADL's documented in this encounter Plan of Treatment Upcoming Encounters Date Type Specialty Care Team Description 01/14/2023 Hospital Encounter Endoscopy Destiny Mojica DO [address] [place] [address] 01/14/2023 Surgery Endoscopy Destiny Mojica DO [address] [address] COLONOSCOPY FLEXIBLE PROXIMAL DIAGNOSTIC 01/15/2023 Office Visit Family Medicine Johnnie Newby MD [address] [place] [address] 01/27/2023 Hospital Encounter Surgery Pb Alexander, DO [address] [place] [address] 01/27/2023 Surgery Surgery Pb Alexander, DO [address] [place] [address] DESTROY LUMBAR SACRAL NERVE IMAGING SINGLE 02/11/2023 Office Visit Sleep Disorders Hui Bishop CRNP [address] [place] [address] 02/26/2023 Office Visit Podiatry Bettye Herrmann DPM [address] [facility] [place] [address] 03/10/2023 Office Visit Cardiology Deisy Aguirre CRNP [address] [place] [address] 05/05/2023 Office Visit Gastroenterology Agnes Bowers CRNP [address] [place] [address] 07/08/2023 Imaging Radiology 07/13/2023 Office Visit Radiation Oncology Shawna Johnson MD [address] [place] [address] [place] [address] Scheduled Procedures Name Priority Associated Diagnoses Date/Ti me COLONOSCOPY FLEXIBLE PROXIMA L DIAGNOSTIC Recall History of colon polyps Other iron deficiency anemia 01/14/2023 2:15 PM EDT ESOPHAGOGASTRODUODENOSCOPY ( EGD), FLEXIBLE, TRANSORAL, DIAGNOSTIC Recall History of colon polyps Other iron deficiency anemia 01/14/2023 2:15 PM EDT DESTROY LUMBAR SACRAL NERVE IMAGING [...] 05/01/2023 05/01/2022, 02/13/2022 CKD PHOS USE SMARTSET 64289 06/05/202305/20, 06/03/2021, 06/04/2020, Additional history exists GFR 06/17/2023 12/17/2022, 05/20, 12/02/2021, Additional history exists Diabetic Foot Exam 09/10/2023 09/09/2022, 1 , 11/12/2017, Additional history exists DTaP,Tdap,and Td Vaccines (2 - Td or Tdap) 01/06/2024 01/05/2014 CKD HGB USE SMARTSET 55844 01/09/202401/08, 12/17/2022, 07/17/2021, Additional history exists Pneumococcal [...] this encounter Medical Devices Implanted Type Area Teletype Installer Device Identifier Shelf Expiration Date Model / Serial / Lot Lens Intraoc 24.0 - [id number] - [id number] Implanted:Qty: 1 on 06/01/2017 by Nikhil Bolton MD at OR [facility] Left: Eye BA[employer]CH [employer] LOMB 07/17/2021 [id number] / [id number] / [id number] Lens Intraoc 24.0 - [id number] - [id number] Implanted:Qty: 1 on 06/08/2017 by Nikhil Bolton MD at OR [facility] Right: Eye BAUSCH & LOMB 07/17/2021 [id number] / [id number] / [id number] documented as of this encounter Advance Directives Documents on File Type Date Recorded 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 Care Teams Setter Automatic Spinning Lathe Relationship Specialty Start Date End Date Johnnie Newby MD [address] [place] [address] PCP - General Family Medicine 09/13/20 documented as of this encounter
--- OUTSIDE RECORDS SUMMARY | 2023-04-15 00:18 | External Medical Summary ---
Author Name Unknown Address Unknown Organization K01:[facility] - [address] [place] [address] Laboratory Report Ordering Provider Test Date Status JUSTYNAERIN 01/08/2023 14:22:35 Final Observation Date Value Abnormality Reference (Units ) Status CRP, low-sensitivity 01/08/2023 14:22:35 4 <=5 (mg/L) Final Performing Location [facility] - [address] [place] [address]
--- OUTSIDE RECORDS SUMMARY | 2023-04-15 00:18 | External Medical Summary | Summary of Care ---
Author Name Unknown Organization [facility] Address [address] [facility] [place] [address] Phone [phone] Care Team Providers Care Robotics Mechanic Name Role Phone Johnnie Newby MD Primary Care Provider [phone] Reason for Visit * Reason Onset Date Comments Follow Up 01/07/2023 Encounter Details Date Type Department Care Team Description 01/07/2023 Telephone Interventional Pain Center, [facility] [address] [place] [address] Cousins, Pb Fermin DO [address] [facility] [place] [address] Follow Up Allergies Active Allergy Reactions Severity [...] 24 Hour (Imdur)Indications:C oronary artery disease involving [place] coronary artery without angina pectoris TAKE ONE [...] NIGHT 45 Tablet 0 08/17/2022 4 Active Additional Information Patient not taking.Reported on 11/25/2022 FLUoxetine HCl 20 MG Oral Capsule (PROzac) TAKE THREE CAPSULES BY MOUTH EVERY MORNING 270 Capsule 0 07/08/2022 4 Active Additional Information Patient not taking.Reported on 11/25/2022 Tiotropium [place] Monohydrate 18 MCG Inhalation Capsule (Spiriva) INHALE ONE CAPSULE VIA HANDIHALER EVERY MORNING. DO NOT SWALLOW CAPSULE. 90 Capsule 3 06/26/2022 4 Active Mirtazapine 15 MG Oral Tablet (Remeron) TAKE ONE-HALF TABLET (7.5 MG.) BY MOUTH EVERY NIGHT 45 Tablet 0 05/06/2022 4 Active Additional Information Patient not taking.Reported on 11/25/2022 risperiDONE 0.25 MG Oral Tablet (RisperDAL) TAKE ONE TABLET BY MOUTH EVERY NIGHT AT BEDTIME 90 Tablet 0 05/06/2022 4 Active Additional Information Patient not taking.Reported on 11/25/2022 Fluticasone-Salmeter ol 230-21 MCG/ACT Inhalation Aerosol (Advair)Indications: COPD, group B, by GOLD 2017 classification ([facility]) INHALE TWO PUFFS BY MOUTH EVERY MORNING AND INHALE TWO PUFFS BY MOUTH AT BEDTIME, RINSE MOUTH AFTER USE 36 g 3 04/17/2022 3 Active FLUoxetine HCl 20 MG Oral Capsule (PROzac) TAKE THREE CAPSULES BY MOUTH EVERY MORNING 270 Capsule 0 04/03/2022 3 Active Additional Information Patient not taking.Reported on 11/25/2022 busPIRone HCl 15 MG Oral Tablet (Buspar) TAKE ONE HALF TO ONE TABLET BY MOUTH THREE TIMES A DAY NEEDED FOR ANXIETY 90 Tablet 0 04/03/2022 3 Active risperiDONE 0.25 MG Oral Tablet (RisperDAL) TAKE ONE TABLET BY MOUTH EVERY NIGHT AT BEDTIME 90 Tablet 0 01/29/2022 3 Active Additional Information Patient not taking.Reported on 11/25/2022 FLUoxetine HCl 20 MG Oral Capsule (PROzac) take 3 caps by mouth every morning 270 Capsule 0 11/16/2022 Active Additional Information Patient not taking.Reported on 11/25/2022 risperiDONE 0.5 MG Oral Tablet (RisperDAL) take 1 tablet by mouth every night at bedtime 90 Tablet 0 11/16/2022 Active Additional Information Patient not taking.Reported on 11/25/2022 Mirtazapine 15 MG Oral Tablet (Remeron) take 1/2 tab (7.5mg) by mouth every night 45 Tablet 0 11/16/2022 Active Additional Information Patient not taking.Reported on 11/25/2022 Roflumilast 500 MCG Oral Tablet (Daliresp)Indication s:COPD, group D, by GOLD 2017 classification ([facility]) TAKE ONE TABLET BY MOUTH [...] Release 24 Hour (toPROL XL)Indications:SVT (supraventricular tachycardia) ([facility]),NSVT (nonsustained ventricular tachycardia) ([facility]) TAKE ONE TABLET BY MOUTH EVERY DAY 90 Tablet 3 12/09/2022 4 Active Atorvastatin Calcium 80 MG Oral Tablet (Lipitor) TAKE ONE TABLET BY MOUTH AT BEDTIME 90 Tablet 1 12/09/2022 4 Active busPIRone HCl 10 MG Oral Tablet (Buspar) take 1 to 2 tablets by mouth twice a day as needed for anxiety 90 Tablet 0 12/17/2022 Active Vitron-C 65-125 MG Oral Tablet (Iron-Vitamin [...] long-term current use of insulin 08/02/2018 Old HI (myocardial infarction) 8 YISSEL treated with BiPAP 01/03/2018 Overview: Wears BiPAP at night Type 2 diabetes mellitus with hemoglobin A1c goal of less than 8.0% 10/23/2014 Overview: ICD-10 update of inactive term CVA, old, 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 PTSD (post-traumatic stress disorder) Gastroesophageal reflux disease without esophagitis 01/05/2014 Coronary artery disease invo lving [place] coronary artery of [place] heart without angina pectoris 11/27/2013 Tobacco abuse [...] mRNA, LNP-s, No Pre serve, 2-Dose Series ([employer]) 02/10/2022,07/13/2020,06/17/2020 Pneumococcal Conjugate Vacc, 13 Valent (Prevnar) [...] Encounters Date Type Specialty Care Team Description 01/08/2023 Office Visit Gastroenterology Agnes Bowers CRNP [address] [place] [address] 01/11/2023 Office Visit Cardiology Deisy Aguirre CRNP [address] [place] [address] 01/15/2023 Office Visit Family Medicine Johnnie Newby MD [address] [place] [address] 02/11/2023 Office Visit Sleep Disorders Hui Bishop CRNP [address] [place] [address] 02/26/2023 Office Visit Podiatry Bettye Herrmann, DPM [address] [place] [id number] 07/08/2023 Imaging Radiology 07/13/2023 Office Visit Radiation Oncology Shawna Johnson MD [address] [facility] [place] [address] Scheduled Procedures Name Priority Associated Diagnoses Date/Ti me COLONOSCOPY FLEXIBLE PROXIMAL DIAGNOSTIC Recall History of colon polyps Health Maintenance Due Date Last Done [...] 05/01/2023 05/01/2022, 02/13/2022 CKD PHOS USE SMARTSET 69228 06/05/202305/20, 06/03/2021, 06/04/2020, Additional history exists GFR 06/17/2023 12/17/2022, 05/20, 12/02/2021, Additional history exists Diabetic Foot Exam 09/10/2023 09/09/2022, 1 , 11/12/2017, Additional history exists CKD HGB USE SMARTSET 28185 12/18/202312/17, 07/17/2021, 07/17/2021, Additional history exists DTaP,Tdap,and [...] this encounter Medical Devices Implanted Type Area Edge Finisher Device Identifier Shelf Expiration Date Model / Serial / Lot Lens Intraoc 24.0 - [id number] - [id number] Implanted:Qty: 1 on 06/01/2017 by Nikhil Bolton MD at OR [facility] Left: Eye BAUSCH & LOMB 07/17/2021 [id number] / [id number] / [id number] Lens Intraoc 24.0 - [id number] - [id number] Implanted:Qty: 1 on 06/08/2017 by Nikhil Bolton MD at OR [facility] Right: Eye BAUSCH & LOMB 07/17/2021 [id number] / [id number] / [id number] documented as of this encounter Advance Directives Documents on File Type Date Recorded Patient Retail Services Professional Expl anation Advance Directives and Yu Watkins [...] and were consensually agreed upon. Care Teams Robotics Mechanic Relationship Specialty Start Date End Date Johnnie Newby MD [address] [place] [address] PCP - General Family Medicine 09/13/20 documented as of this encounter
--- OUTSIDE RECORDS SUMMARY | 2023-04-15 00:18 | External Medical Summary | Summary of Care ---
Author Name Unknown Organization [facility] Address [address] [place] [address] Phone [phone] Care Team Providers Care Lead Pressman Name Role Phone John Newby MD Primary Care Provider [phone] Reason for Visit * Reason Comments eRx-Medication Refill Encounter Details Date Type Department Care Team Description 01/12/2023 Refill Family Practice [facility] [address] [address] John Newby MD [address] [place] [address] Allergies Active Allergy Reactions Severity Noted Date Comments Acetaminophen 05/06/2005 headaches documented as of this encounter (statuses as of 01/13/2023) Medications Medication Sig Dispensed Refills Start Date [...] goal of less than 7.0% ([facility]) TEST ONCE DAILY 100 Strip [...] 24 Hour (Imdur)Indications: Coronary artery disease involving [place] coronary artery without angina pectoris TAKE [...] Capsule 0 3 07/08/19 24 Active Tiotropium [place] Monohydrate 18 MCG Inhalation Capsule (Spiriva) INHALE ONE CAPSULE VIA HANDIHALER EVERY MORNING. DO NOT SWALLOW CAPSULE. 90 Capsule 3 3 06/26/19 24 Active Mirtazapine 15 MG Oral Tablet (Remeron) TAKE ONE-HALF TABLET (7.5 MG.) BY MOUTH EVERY NIGHT 45 Tablet 0 3 05/06/19 24 Active Fluticasone-[place]met[place] rol 230-21 MCG/ACT Inhalation Aerosol (Advair)Indications :COPD, group B, by GOLD 2017 classification ([facility]) INHALE TWO PUFFS BY MOUTH [...] ns:COPD, group D, by GOLD 2017 classification ([facility]) TAKE ONE TABLET BY MOUTH [...] (supraventricular tachycardia),NSVT (nonsustained ventricular tachycardia) ([facility]) TAKE ONE TABLET BY MOUTH [...] 16 g 1 3 01/14/20 23 Discontinued Hospital, Clinic, or Other Facility [...] as of this encounter (statuses as of 01/13/2023) Active Problems Problem Noted Date Gouty arthropathy [...] esophagitis 01/05/2014 Coronary artery disease invo lving [place] coronary artery of [place] heart without angina pectoris 11/27/2013 Tobacco abuse 11/27/2013 HTN, goal below 130/80 03/06/2009 Overview: Modified per HTN protocol #16. documented as of this encounter (statuses as of 01/13/2023) Resolved Problems Problem Noted Date Resolved Date [...] as of this encounter (statuses as of 01/13/2023) Immunizations Name Administration Dates Next Due COVID-19 mRNA, LNP-s, No Pre serve, 2-Dose Series ([employer]) 02/10/2022,07/13/2020,06/17/2020 Pneumococcal Conjugate Vacc, 13 Valent (Prevnar) [...] encounter Miscellaneous Notes * Telephone Encounter - Jeanette Bejarano [facility] - 01/13/2023 5:33 AM EDTSigned Prescriptions: Disp Refills Fluticasone Propionate 50 MCG/ACT Nasal Ku*16 g 1 Sig: USE TWO SPRAYS IN EACH NOSTRIL IN THE MORNINGAuthorizing Provider: JOHN NEWBY User: JEANETTE BEJARANO documented in this encounter Plan of Treatment Upcoming Encounters Date Type Specialty Care Team Description 01/14/2023 Hospital Encounter Endoscopy Destiny Mojica, [address] [place] [address] 01/14/2023 Surgery Endoscopy Destiny Mojica DO [address] [place] [address] COLONOSCOPY FLEXIBLE PROXIMAL DIAGNOSTIC 01/15/2023 Office Visit Family Medicine John Newby MD [address] [place] [address] 01/27/2023 Hospital Encounter Surgery Pb Alexander, DO [address] [place] [address] 01/27/2023 Surgery Surgery Pb Alexander, DO [address] [place] [address] DESTROY LUMBAR SACRAL NERVE IMAGING SINGLE 02/11/2023 Office Visit Sleep Disorders Hui Bishop CRNP [address] [place] [address] 02/26/2023 Office Visit Podiatry Bettye Herrmann DPM [address] [facility] [place] [phone] 03/10/2023 Office Visit Cardiology Deisy Aguirre CRNP [address] [place] [address] 05/05/2023 Office Visit Gastroenterology Agnes Boewrs CRNP [address] [place] [address] 07/08/2023 Imaging Radiology 07/13/2023 Office Visit Radiation Oncology Shawna Johnson MD [address] [place] [address] Scheduled Procedures Name Priority [...] 05/01/2023 05/01/2022, 02/13/2022 CKD PHOS USE SMARTSET 99552 06/05/202305/20, 06/03/2021, 06/04/2020, Additional history exists GFR 06/17/2023 12/17/2022, 05/20, 12/02/2021, Additional history exists Diabetic Foot Exam 09/10/2023 09/09/2022, 1 , 11/12/2017, Additional history exists DTaP,Tdap,and Td Vaccines (2 - Td or Tdap) 01/06/2024 01/05/2014 CKD HGB USE SMARTSET 20833 01/09/202401/08, 12/17/2022, 07/17/2021, Additional history exists Pneumococcal [...] this encounter Medical Devices Implanted Type Area Tradeshow Worker Device Identifier Shelf Expiration Date Model / Serial / Lot Lens Intraoc 24.0 - [id number] - [id number] Implanted:Qty: 1 on 06/01/2017 by Nikhil Bolton MD at OR [facility] Left: Eye BAUSCH & LOMB 07/17/2021 [id number] / [id number] / [id number] Lens Intraoc 24.0 - [id number] - [id number] Implanted:Qty: 1 on 06/08/2017 by Nikhil Bolton MD at OR [facility] Right: Eye BAUSCH [employer] LOMB 07/17/2021 [id number] / [id number] / [id number] documented as of this encounter Advance Directives Documents on File Type Date Recorded Patient Environmental Director Expl anation Advance Directives and Yu fine [...] and were consensually agreed upon. Care Teams Lead Pressman Relationship Specialty Start Date End Date John Newby MD [address] [place] [address] PCP - General Family Medicine 09/13/20 documented as of this encounter
--- OUTSIDE RECORDS SUMMARY | 2023-04-15 00:18 | External Medical Summary | Summary of Care ---
Author Name Unknown Organization [facility] Address [address] [facility] [place] [address] Phone [phone] Care Team Providers Care Health It Specialist Name Role Phone Johnnie Newby MD Primary Care Provider [phone] Reason for Visit * Reason Onset Date Comments Test Results 01/11/2023 Encounter Details Date Type Department Care Team Description 01/11/2023 Telephone Cardiology, [facility] [address] [facility] [place] [address] Zack Brewer, PA-C [address] [facility] [place] [id number] Test Results Allergies Active Allergy Reactions Severity Noted Date Comments Acetaminophen 05/06/2005 headaches documented as of this encounter (statuses as of 01/11/2023) Medications Medication Sig Dispensed Refills Start Date [...] hemoglobin A1c goal of less than 7.0% ([facility]) TEST ONCE DAILY 100 Strip 5 03/02/2018 [...] 24 Hour (Imdur)Indications:C oronary artery disease involving [place] coronary artery without angina pectoris TAKE ONE [...] COPD, group B, by GOLD 2017 classification ([facility] [...] s:COPD, group D, by GOLD 2017 classification ([facility] [...] as of this encounter (statuses as of 01/11/2023) Active Problems Problem Noted Date Gouty arthropathy [...] long-term current use of insulin 08/02/2018 Old [place] (myocardial infarction) 8 YISSEL treated with BiPAP 01/03/2018 Overview: Wears BiPAP at night Type 2 diabetes mellitus with hemoglobin A1c goal of less than 8.0% 10/23/2014 Overview: ICD-10 update of inactive term CVA, old, 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 PTSD (post-traumatic stress disorder) Gastroesophageal reflux disease without esophagitis 01/05/2014 Coronary artery disease invo lving [place] coronary artery of [place] heart without angina pectoris 11/27/2013 Tobacco abuse 11/27/2013 HTN, goal below 130/80 03/06/2009 Overview: Modified per HTN protocol #16. documented as of this encounter (statuses as of 01/11/2023) Resolved Problems Problem Noted Date Resolved Date [...] as of this encounter (statuses as of 01/11/2023) Immunizations Name Administration Dates Next Due COVID-19 [...] encounter Miscellaneous Notes * Telephone Encounter - Manish Zee LPN - 01/11/2023 4:10 PM EDT Patient aware via Office Visit with CHRISTOPHE Coulter. Plan to come after scopes are completed. ----- Message from Zack Brewer PA-C sent at 01/11/2023 7:34 AM EDT ----- Mild decline in H&H compared to 3 weeks ago Patient evaluated by GI on 01/08/2023, referred for EGD and colonoscopy. Also scheduled to be seen by Cardiology later today ?Repeat CBC in 1 week, holding anticoagulation if H&H continue to decline? Patient is approaching need to reduce Eliquis dosing (age 77, creatinine 1.6 mg/dL) documented in this encounter Plan of Treatment Upcoming Encounters Date Type Specialty Care Team Description 01/14/2023 Hospital Encounter Endoscopy Destiny Mojica, DO [address] [place] [address] 01/14/2023 Surgery Endoscopy Destiny Mojica, DO [address] [place] [address] COLONOSCOPY FLEXIBLE PROXIMAL DIAGNOSTIC 01/15/2023 Office Visit Family Medicine Johnnie Newby MD [address] [place] [address] 02/11/2023 Office Visit Sleep Disorders Hui Bishop CRNP [address] [place] [address] 02/26/2023 Office Visit Podiatry Bettye Herrmann DPM [address] [facility] [place] [address] 03/10/2023 Office Visit Cardiology Deisy Aguirre CRNP [address] [place] [address] 05/05/2023 Office Visit Gastroenterology Agnes Bowers CRNP [address] [place] [address] 07/08/2023 Imaging Radiology 07/13/2023 Office Visit Radiation Oncology Shawna Johnson MD [address] [place] [address] [place] [address] Scheduled Procedures Name Priority Associated Diagnoses Date/Ti [...] exists DISCUSS TOBACCO CESSATION (REFER TO SMARTSET #3180) 05/01/2023 05/01/2022, 02/13/2022 CKD PHOS USE SMARTSET 93900 06/05/202305/20, 06/03/2021, 06/04/2020, Additional history exists GFR 06/17/2023 12/17/2022, 05/20, 12/02/2021, Additional history exists Diabetic Foot Exam 09/10/2023 09/09/2022, 1 , 11/12/2017, Additional history exists DTaP,Tdap,and Td Vaccines (2 - Td or Tdap) 01/06/2024 01/05/2014 CKD HGB USE SMARTSET 62939 01/09/202401/08, 12/17/2022, 07/17/2021, Additional history exists Pneumococcal [...] this encounter Medical Devices Implanted Type Area Civil Drafter Device Identifier Shelf Expiration Date Model / Serial / Lot Lens Intraoc 24.0 - [id number] - [id number] Implanted:Qty: 1 on 06/01/2017 by Nikhil Bolton MD at OR [facility] Left: Eye BAUSCH & LOMB 07/17/2021 [id number] / [id number] / [id number] Lens Intraoc 24.0 - [id number] - [id number] Implanted:Qty: 1 on 06/08/2017 by Nikhil Bolton MD at OR [facility] Right: Eye BAUSCH & LOMB 07/17/2021 [id number] / [id number] / [id number] documented as of this encounter Advance Directives Documents on File Type Date Recorded Patient Recruiting Consultant Expl anation Advance Directives and Melissain g Will 11/20/2005 ADVANCE DIRECTIVE Latest Code [...] and were consensually agreed upon. Care Teams Health It Specialist Relationship Specialty Start Date End Date Johnnie Newby MD [address] [place] [address] PCP - General Family Medicine 09/13/20 documented as of this encounter
--- OUTSIDE RECORDS SUMMARY | 2023-04-15 00:18 | External Medical Summary | Summary of Care ---
Author Name Unknown Organization [facility] Address [address] [place] [address] Phone [phone] Care Team Providers Care Mortar Mixer Operator Name Role Phone Johnnie Newby MD Primary Care Provider [phone] Reason for Visit * Reason Comments NEW PATIENT FOBT +.,CHARANJIT, * Evaluate & Treat - Unlimited Visits (Within 10 days (routine)) - Authorized Specialty Diagnoses / Procedures Referred By Treva judd Referred To Contact Gastroenterology Diagnoses Fecal occult blood test positive Iron deficiency anemia Zack Brewer, PAAngelicaC [address] [place] [address] Referral ID Status Reason Start Date Expiration Date Visits Requested Visits Authorized [id number] Authorized Specialty Services Required 01/04/[phone] Encounter Details Date Type Department Care Team Description 01/08/2023 Office Visit Gastroenterology, [facility] [address] [place] [address] Agnes Bowers CRNP [address] [place] [address] Other iron deficiency anemia*; Fecal occult blood [...] Base) MCG/ACT Inhalation Aerosol SolutionIndications :COPD, moderate ([facility]) Take [...] 24 Hour (Imdur)Indications: Coronary artery disease involving redding coronary artery without angina pectoris TAKE ONE [...] Capsule 0 3 07/08/19 24 Active Tiotropium [place] Monohydrate 18 MCG Inhalation Capsule (Spiriva) INHALE ONE CAPSULE VIA HANDIHALER EVERY MORNING. DO NOT SWALLOW CAPSULE. 90 Capsule 3 3 06/26/19 24 Active Mirtazapine 15 MG Oral Tablet (Remeron) TAKE ONE-HALF TABLET (7.5 MG.) BY MOUTH EVERY NIGHT 45 Tablet 0 3 05/06/19 24 Active Fluticasone-Salmete rol 230-21 MCG/ACT Inhalation Aerosol (Advair)Indications :COPD, group B, by GOLD 2017 classification ([facility] [...] ns:COPD, group D, by GOLD 2017 classification ([facility] [...] long-term current use of insulin 08/02/2018 Old AK (myocardial infarction) 8 YISSEL treated with BiPAP 01/03/2018 Overview: Wears BiPAP at night Type 2 diabetes mellitus with hemoglobin A1c goal of less than 8.0% 10/23/2014 Overview: ICD-10 update of inactive term CVA, old, 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 PTSD (post-traumatic stress disorder) Gastroesophageal reflux disease without esophagitis 01/05/2014 Coronary artery disease invo lving redding coronary artery of redding heart without angina pectoris 11/27/2013 Tobacco abuse [...] mRNA, LNP-s, No Pre serve, 2-Dose Series (Leaf) 02/10/2022,07/13/2020,06/17/2020 Pneumococcal Conjugate Vacc, 13 Valent (Prevnar) [...] performed by Warren Patel MD at ENDOSCOPY [facility] COLONOSCOPY THRU STOMA, W/BIOPSY 05/28/2010 andenomatous tissue--repeat in 3 months COLONOSCOPY THRU STOMA, W/BIOPSY 09/18/2010 adenomatous-repeat colonoscopy in 3-6 months COLONOSCOPY THRU STOMA, W/BIOPSY 04/09/2011 polyps x3 , path shows adenomatous tissue repeat in 1 years COLONOSCOPY, DIAGNOSTIC (RECTUM) 05/20/2016 adenomatous polyps, poor prep, diverticulosis, repeat 3 yrs/[facility] COLONOSCOPY, DIAGNOSTIC (RECTUM) 06/06/2019 hemorrhoids/diverticulosis sigmoid and descending colon/small AVM/biopsies show adenomatous polyps/recall 6-9 months/COLONOSCOPY FLEXIBLE PROXIMAL DIAGNOSTIC performed by Clemencia Marinelli MD atENDOSCOPY [facility] COLONOSCOPY, DIAGNOSTIC (RECTUM) 03/05/2022 benign adenomatous polyp, repeat 1 yr / COLONOSCOPY FLEXIBLE PROXIMAL DIAGNOSTIC performed by Clemencia Marinelli MD at ENDOSCOPY [facility] L-/S-SPINE PARAVERTEBRAL FACET INJ,1 LEVEL 11/25/2022 L-/S-SPINE PARAVERTEBRAL FACET INJ, 1 LEVEL performed by Pb Alexander DO at [facility] L-/S-SPINE PARAVERTEBRAL FACET INJ,1 LEVEL 01/06/2023 L-/S-SPINE PARAVERTEBRAL FACET INJ, 1 LEVEL performed by Pb Alexander DO at OR [facility] L-/S-SPINE PARAVERTEBRL FACET INJ,2 LEVELS 11/25/2022 L-/S-SPINE PARAVERTEBRAL FACET INJ, 2 LEVELS performed by Pb Alexander DO at OR [facility] L-/S-SPINE PARAVERTEBRL FACET INJ,2 LEVELS 01/06/2023 L-/S-SPINE PARAVERTEBRAL FACET INJ, 2 LEVELS performed by [facility] Alexander DO at OR [facility] MISCELLANEOUS ORDER ([facility] ONLY) 1998 henria repair OTHER (INFORMATION) pilonidal [...] performed by Nikhil Bolton MD at OR [facility] Social History Tobacco Use Smoking status: Every [...] Take 2 Tablets by mouth at bedtime. [employer] ULTRA BLUE STRP TEST ONCE DAILY 100 [...] MOUTH EVERY MORNING 270 Capsule 0 Tiotropium [place] Monohydrate 18 MCG Inhalation Capsule (Spiriva) INHALE [...] - Schedule repeat EGD and colonoscopy - Check celiac antibodies, esr, crp - ED if gross GI bleeding noted [...] CLINIC: 3 months or sooner Linnea Liz [facility] 01/08/2023 documented in this encounter Nursing Notes * Mackenzie Zuniga LPN - 01/08/2023 1:25 PM EDT Patient identified by name and date of . Chief Complaint Patient presents with NEW PATIENT FOBT +.,CHARANJIT, documented in this encounter Plan of Treatment Upcoming Encounters Date Type Specialty Care Team Description 01/11/2023 Office Visit Cardiology Deisy Aguirre CRNP [address] [place] [address] 01/15/2023 Office Visit Family Medicine Johnnie Nweby MD [address] [place] [address] 02/11/2023 Office Visit Sleep Disorders Hui Bishop CRNP [address] [place] [address] 02/26/2023 Office Visit Podiatry Bettye Herrmann, SAMM [address] [place] [address] 04/20/2023 Hospital Encounter Endoscopy Liz Rosales MD [address] [place] [address] 04/20/2023 Surgery Endoscopy Liz Rosales MD [address] [place] [address] COLONOSCOPY FLEXIBLE PROXIMAL DIAGNOSTIC 05/05/2023 Office Visit Gastroenterology Agnes Bowers CRNP [address] [place] [address] 07/08/2023 Imaging Radiology 07/13/2023 Office Visit Radiation Oncology Shawna Johnson MD [address] [place] [address] [place] [address] Scheduled Orders Name Type Priority Associated Diagnoses [...] exists DISCUSS TOBACCO CESSATION (REFER TO SMARTSET #9769) 05/01/2023 05/01/2022, 02/13/2022 CKD PHOS USE SMARTSET 10625 06/05/202305/20, 06/03/2021, 06/04/2020, Additional history exists GFR 06/17/2023 12/17/2022, 05/20, 12/02/2021, Additional history exists Diabetic Foot Exam 09/10/2023 09/09/2022, 1 , 11/12/2017, Additional history exists DTaP,Tdap,and Td Vaccines (2 - Td or Tdap) 01/06/2024 01/05/2014 CKD HGB USE SMARTSET 78736 01/09/202401/08, 12/17/2022, 07/17/2021, Additional history exists Pneumococcal [...] this encounter Medical Devices Implanted Type Area Scale Expert Device Identifier Shelf Expiration Date Model / Serial / Lot Lens Intraoc 24.0 - [id number] - [id number] Implanted:Qty: 1 on 06/01/2017 by Nikhil Bolton MD at OR [facility] Left: Eye [employer]USCH [employer] LOMB 07/17/2021 [id number] / [id number] / [id number] Lens Intraoc 24.0 - [id number] - [id number] Implanted:Qty: 1 on 06/08/2017 by Nikhil Bolton MD at OR [facility] Right: Eye BA[employer]CH [employer] LOMB 07/17/2021 [id number] / [id number] / [id number] documented as of this encounter Procedures Procedure [...] (INFLAMMATORY MARKER) (01/08/2023 2:22 PM EDT) Pathologist [facility] CRP (Inflammatory Marker) 4 <=5 mg/L 01/09/2023 2:21 AM EDT [facility] Blood Venous blood specimen / Unknown Venipuncture / Unknown 01/08/2023 2:22 PM EDT 01/08/2023 2:22 PM EDT Agnes SAEED LAB BLOOD ORDER PAULINE Performing Organization Address City/[facility]/ZIP Co de Phone Number LABORATORY [facility] [address] [place] [address] * (ABNORMAL) ERYTHROCYTE SEDIMENTATION RATE (ESR) (01/08/2023 2:22 PM EDT) [facility] ESR 59(H) <20 mm/hour 01/08/2023 11:26 PM EDT [facility] Blood Venous blood specimen / Unknown Venipuncture / Unknown 01/08/2023 2:22 PM EDT 01/08/2023 2:22 PM EDT Agnes SAEED LAB BLOOD ORDER PAULINE Performing Organization Address City/[facility]/ZIP Co de Phone Number LABORATORY [facility] [address] [place] [address] * IGA (01/08/2023 2:22 PM EDT) [facility] IgA 140 70 - 400 mg/dL 01/09/2023 2:21 AM EDT [facility] Blood Venous blood specimen / Unknown Venipuncture / Unknown 01/08/2023 2:22 PM EDT 01/08/2023 2:22 PM EDT Agnes SAEED LAB BLOOD ORDER PAULINE LABORATORY [facility] [address] [place] [address] * TISSUE TRANSGLUTAMINASE IGA ANTIBODY (01/08/2023 2:22 PM EDT) Tissue Transglutaminase IgA Antibody Interpretation Negative Negative 01/09/2023 12:56 PM EDT LABORATORY [facility] Tissue Transglutaminase IgA Antibody Value <0.2 <7 U/mL 01/09/2023 12:56 PM EDT LABORATORY [facility] Blood Venous blood specimen / Unknown Venipuncture / Unknown 01/08/2023 2:22 PM EDT 01/08/2023 2:22 PM EDT Agnes Paulinenathaniel [place] SAEED LAB BLOOD ORDER PAULINE LABORATORY [facility] [address] [place] [address] documented in this encounter Visit Diagnoses Diagnosis Other iron deficiency anemia- Primary Fecal occult blood test positive Nonspecific abnormal finding in stool contents History of colon polyps Personal history of colonic polyps Other iron deficiency anemia documented in this encounter Advance Directives Documents on File Type Date Recorded 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 Care Teams Mortar Mixer Operator Relationship Specialty Start Date End Date Johnnie Newby MD [address] [place] [address] PCP - General Family Medicine 09/13/20 documented as of this encounter
--- OUTSIDE RECORDS SUMMARY | 2023-04-15 00:19 | External Medical Summary ---
Author Name Unknown Address Unknown Organization [id number]:[facility] [place] [address] [place] [id number] Laboratory Report Ordering Provider Test Date Status ALEX MARIE 12/30/2022 13:06:55 Final Observation Date Value Abnormality Reference (Units ) Status Occult Blood (EIA) 12/30/2022 13:06:55 Positive Abnormal N egative Final Performing Location [facility] - [address] [place] [address]
--- OUTSIDE RECORDS SUMMARY | 2023-04-15 00:19 | External Medical Summary | Summary of Care ---
Author Name Unknown Organization [facility] Address [address] [place] [address] Phone [phone] Care Team Providers Care Office Machines Wirer Name Role Phone Johnnie Newby MD Primary Care Provider [phone] Reason for Visit * Reason Onset Date Comments Test Results 12/24/2022 Encounter Details Date Type Department Care Team Description 12/24/2022 Telephone Cardiology, [facility] [address] [place] [address] Zack Brewer, PA-C [address] [facility], [place] [id number] Test Results Allergies Active Allergy Reactions Severity Noted Date Comments Acetaminophen 05/06/2005 headaches documented as of this encounter (statuses as of 12/24/2022) Medications Medication Sig Dispensed Refills Start Date [...] before bedtime. 90 Capsule 3 09/10/2021 Active FLUoxetine HCl 20 MG Oral Capsule (PROzac) TAKE 3 CAPSULES BY MOUTH EVERY MORNING 270 Capsule 0 01/05/2022 3 Active BiPAP every night at bedtime. 0 [...] 24 Hour (Imdur)Indications:C oronary artery disease involving koyuk coronary artery without angina pectoris TAKE ONE [...] Information Patient not taking.Reported on 11/25/2022 Tiotropium [place] Monohydrate 18 MCG Inhalation Capsule (Spiriva) INHALE [...] Release 24 Hour (toPROL XL)Indications:SVT (supraventricular tachycardia) ([facility]),NSVT (nonsustained ventricular tachycardia) ([facility]) TAKE ONE TABLET BY MOUTH EVERY DAY 90 Tablet 3 12/09/2022 4 Active Atorvastatin Calcium 80 MG Oral Tablet (Lipitor) TAKE ONE TABLET BY MOUTH AT BEDTIME 90 Tablet 1 12/09/2022 4 Active busPIRone HCl 10 MG Oral Tablet (Buspar) take 1-2 tabs (10-20mg) by mouth twice a day prn for anxiety 90 Tablet 0 12/17/2022 Active [...] MG/3ML) 0.083% inhalation solution 2.5 mgIndications:COPD, severe ([facility]) 2.5 mg NEBULIZER Q4H PRN 07/08/2018 Active Albuterol Sulfate (Proventil) (2.5 MG/3ML) 0.083% inhalation solution 2.5 mgIndications:COPD, moderate ([facility]) 2.5 mg NEBULIZER PRN 02/13/2022 02/13/2023 Active Albuterol Sulfate (Proventil) (5 MG/ML) 0.5% *conc* inhalation solution 2.5 mgIndications:COPD, moderate ([facility]) 2.5 mg NEBULIZER PRN 02/13/2022 02/13/2023 Active documented as of this encounter (statuses as of 12/24/2022) Active Problems Problem Noted Date Gouty arthropathy [...] long-term current use of insulin 08/02/2018 Old OK (myocardial infarction) 8 YISSEL treated [...] esophagitis 01/05/2014 Coronary artery disease invo lving koyuk coronary artery of koyuk heart without angina pectoris 11/27/2013 Tobacco abuse 11/27/2013 HTN, goal below 130/80 03/06/2009 Overview: Modified per HTN protocol #16. documented as of this encounter (statuses as of 12/24/2022) Resolved Problems Problem Noted Date Resolved Date [...] as of this encounter (statuses as of 12/24/2022) Immunizations Name Administration Dates Next Due COVID-19 mRNA, LNP-s, No Pre serve, 2-Dose Series (BetKlub) 02/10/2022,07/13/2020,06/17/2020 Pneumococcal Conjugate Vacc, 13 Valent (Prevnar) [...] as of this encounter Miscellaneous Notes * Addendum Note - Manish Zee LPN - 12/24/2022 1:31 PM EDTAddended by: MANISH ZEE on: 12/24/2022 01:31 PM Modules accepted: Orders * Telephone Encounter - Manish Zee LPN - 12/24/2022 1:31 PM EDT Patient aware of lab results and to repeat FOBT. Order placed. * Telephone Encounter - Stephanie Cooney CMA - 12/24/2022 10:52 AM EDT Portal message sent to pt. * Telephone Encounter - Stephanie Cooney CMA - 12/24/2022 10:48 AM EDT ----- Message from Zack Brewer PA-C sent at 12/24/2022 8:02 AM EDT ----- ok documented in this encounter Plan of Treatment Upcoming Encounters Date Type Specialty Care Team Description 12/31/2022 Appointment Radiology 12/31/2022 Office Visit Vascular Surgery Cyril Thompson MD [address] [facility] [place] [address] 01/11/2023 Office Visit Cardiology Deisy Aguirre CRNP [address] [place] [address] 01/13/2023 Hospital Encounter Surgery Pb Alexander DO [address] [place] [address] 01/13/2023 Surgery Surgery Pb Alexander DO [address] [place] [address] L-/S-SPINE PARAVERTEBRAL FACET INJ, 1 LEVEL 01/15/2023 Office Visit Family Medicine Johnnie Newby MD [address] [place] [address] 02/11/2023 Office Visit Sleep Disorders Hui Bishop CRNP [address] [place] [address] 02/26/2023 Office Visit Podiatry Bettye Herrmann DPM [address] [facility] [place] [address] 07/08/2023 Imaging Radiology 07/13/2023 Office Visit Radiation Oncology Shawna Johnson MD [address] [facility] [place] [address] Scheduled Orders Name Type Priority Associated Diagnoses Orde r Schedule FECAL OCCULT BLOOD, EIA Lab Routine Anemia Abnormal CBC Expected: 12/25/2022 (Approximate), Expires: 12/25/2023 Scheduled Procedures Name Priority Associated Diagnoses Date/Ti me L-/S-SPINE PARAVERTEBRAL FACET INJ, 1 LEVEL 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 radiculopathy 01/13/2023 10:20 AM EDT L-/S-SPINE PARAVERTEBRAL FACET INJ, 2 LEVELS 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 radiculopathy 01/13/2023 10:20 AM EDT COLONOSCOPY FLEXIBLE PROXIMAL DIAGNOSTIC Recall History of colon polyps Health Maintenance Due Date Last Done Comments Depression Screening, Annual for Pts 12 and Over 05/31/2020 05/31/2019 COVID-19 Vaccine (4 - Pfizer series) 04/07/2022 02/10/2022, 07/13/2020, 06/17/2020 Albumin/Creatinine Ratio 06/04/2022 022, 04/04/2018, 11/10/2016, Additional history exists HbA1c 12/03/2022 06/05/2022, 11/17, 06/03/2021, Additional history exists Influenza Vaccine (FLU shot) (#1) 2022 02/10/2022, 03/05/2021, 02/27/2020, Additional history exists COLONOSCOPY-ANNUAL AGES 18-100 03/05/2023 03/05/2022, 03/05/2022, 06/06/2019, Additional history exists O2 ASSESSMENT COMPLETED IN PAST YEAR FOR COPD 03/05/2023 03/05/2022 DIABETES-EYE EXAM 04/09/2023 04/09/2022, , 03/30/2020, Additional history exists DISCUSS TOBACCO CESSATION (REFER TO SMARTSET #1901) 05/01/2023 05/01/2022, 02/13/2022 CKD PHOS USE SMARTSET 45709 06/05/202305/20, 06/03/2021, 06/04/2020, Additional history exists GFR 06/17/2023 12/17/2022, 05/20, 12/02/2021, Additional history exists Diabetic Foot Exam 09/10/2023 09/09/2022, 1 , 11/12/2017, Additional history exists CKD HGB USE SMARTSET 55533 12/18/202312/17, 07/17/2021, 07/17/2021, Additional history exists DTaP,Tdap,and Td Vaccines (2 - Td or Tdap) 01/06/2024 01/05/2014 Pneumococcal Vaccine: 65+ Years Completed 11/07/2015, 04/06/2014 Alpha-1 Antitrypsin Completed 05/22/2019 Zoster Vaccines Completed 02/27/2020, 11/17, 01/05/2014 Hepatitis C Screening Completed 12/02/2021 , 12/02/2021, 12/02/2021 GARDASIL-HPV IMMUNIZATION SERIES Aged Out No longer eligible based on patient's age to complete this topic Hepatitis B Aged Out No longer eligi ble based on patient's age to complete this topic MENINGOCOCCAL (MENACTRA/MENVEO) Aged Out No longer eligible based on patient's age to complete this topic documented as of this encounter Medical Devices Implanted Type Area Laborer Device Identifier Shelf Expiration Date Model / Serial / Lot Lens Intraoc 24.0 - [id number] - [id number] Implanted:Qty: 1 on 06/01/2017 by Nikhil Bolton MD at OR [facility] Left: Eye [employer] LOMB 07/17/2021 [id number] / [id number] / [id number] Lens Intraoc 24.0 - [id number] - [id number] Implanted:Qty: 1 on 06/08/2017 by Nikhil Bolton MD at OR [facility] Right: Eye BAUSCH [employer] LOMB 07/17/2021 [id number] / [id number] / [id number] documented as of this encounter Visit Diagnoses Diagnosis Anemia- Primary Anemia, unspecified Abnormal CBC Other abnormal blood chemistry 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 radiculopathy Lumbosacral spondylosis without myelopathy documented in this encounter Advance Directives Documents on File Type Date Recorded 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 Care Teams Office Machines Wirer Relationship Specialty Start Date End Date Johnnie Newby MD [address] [place] [address] PCP - General Family Medicine 09/13/20 documented as of this encounter
--- OUTSIDE RECORDS SUMMARY | 2023-04-15 00:19 | External Medical Summary | Summary of Care ---
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 [M47.817] Procedures L-/S-SPINE PARAVERTEBRAL FACET INJ,1 LEVEL L-/S-SPINE PARAVERTEBRL FACET INJ,2 LEVELS L-/S-SPINE PARAVERTEBRAL FACET INJ, 1 LEVEL L-/S-SPINE PARAVERTEBRAL FACET INJ, 2 LEVELS Referral ID Status Reason Start Date Expiration Date Visits Re quested Visits Authorized [id number] Encounter Details Date Type Department Care Team Description 01/06/2023 Hospital Encounter OR [facility], Operating Room [facility] [address] [place] [id number] Cousins, Pb Fermin, [address] [place] [address] Allergies Active Allergy Reactions Severity Noted Date Comments Acetaminophen 05/06/2005 headaches documented as of this encounter (statuses as of 01/06/2023) Medications Medication Sig Dispensed Refills Start Date [...] goal of less than 7.0% ([facility]) TEST ONCE DAILY 100 Strip 5 03/02/2018 Active Ventolin HFA 108 (90 Base) MCG/ACT Inhalation Aerosol SolutionIndications: COPD, moderate ([facility]) Take 2 Puffs by mouth 4 times [...] 24 Hour (Imdur)Indications:C oronary artery disease involving [place] coronary artery without angina pectoris TAKE [...] Information Patient not taking.Reported on 11/25/2022 Tiotropium [place] Monohydrate 18 MCG Inhalation Capsule (Spiriva) INHALE [...] B, by GOLD 2017 classification ([facility]) INHALE TWO PUFFS BY MOUTH EVERY MORNING [...] D, by GOLD 2017 classification ([facility]) TAKE ONE TABLET BY MOUTH EVERY MORNING [...] Hour (toPROL XL)Indications:SVT (supraventricular tachycardia) ([facility]),NSVT (nonsustained ventricular tachycardia) ([facility]) TAKE ONE TABLET BY MOUTH EVERY DAY [...] symptoms resolve. 90 Tablet 3 12/23/2022 Active documented as of this encounter (statuses as of 01/06/2023) Active Problems Problem Noted Date Gouty arthropathy [...] long-term current use of insulin 08/02/2018 Old [place] (myocardial infarction) 8 YISSEL treated [...] esophagitis 01/05/2014 Coronary artery disease invo lving [place] coronary artery of [place] heart without angina pectoris 11/27/2013 Tobacco abuse 11/27/2013 HTN, goal below 130/80 03/06/2009 Overview: Modified per HTN protocol #16. documented as of this encounter (statuses as of 01/06/2023) Resolved Problems Problem Noted Date Resolved Date [...] as of this encounter (statuses as of 01/06/2023) Immunizations Name Administration Dates Next Due COVID-19 mRNA, LNP-s, No Pre serve, 2-Dose Series (Actimagine) 02/10/2022,07/13/2020,06/17/2020 Pneumococcal Conjugate Vacc, 13 Valent (Prevnar) [...] Sign Reading Time Taken Comments Blood Pressure 111/55 01/06/2023 10:59 AM EDT Pulse 57 01/06/2023 10:59 AM EDT Temperature 35.9 C (96.7 F) 01/06/2023 10:31 AM E DT Respiratory Rate 14 01/06/2023 10:59 AM EDT Oxygen Saturation 98% 01/06/2023 10:59 AM EDT Inhaled Oxygen Concentration - - Weight - - Height - - Body Mass Index - - documented in this encounter Discharge Instructions * Discharge Instr - AVS* Pb Alexander, DO - 01/06/2023 10:56 AM EDT [facility] [address] [place] [address] Discharge Date: 01/06/2023 You may call [facility] at [phone] during business hours. For after-hours emergencies call 911. Your attending physician at the time of your discharge was: Pb Alexander, [address] [place] [address] The information below provides you with the [...] unless otherwise instructed by your family physician, research investigator or the anticoagulation clinic. Additional Instructions: {[id number]} Driving: . Date you may return to work or school: Follow Up: Call [phone] tomorrow. documented in this encounter Progress Notes * Pb Alexander DO - 01/06/2023 10:56 AM EDT [facility] [address] [address] OUTPATIENT SURGERY DISCHARGE SUMMARY NOTE Name: Walter Don Location: OR [facility]/OR Date: 01/06/2023 Time: 10:56 AM Surgery Date: 01/06/2023 Procedure: Procedure(s): L-/S-SPINE PARAVERTEBRAL FACET INJ, 1 LEVEL L-/S-SPINE PARAVERTEBRAL FACET INJ, 2 LEVELS No laterality found for procedure #1 No laterality found for procedure #2 Surgeon: Surgeon(s): Pb Alexander DO Discharge Diagnosis: Lumbar spondylosis After examination of this patient, I have determined he is ready for discharge to home when the patient meets criteria. Discharge instructions were given to the patient. documented in this encounter H&P Notes * Pb Alexander DO - 01/06/2023 6:53 AM EDT Interventional Pain Pre-Procedure Assessment Name:Walter Don Date:01/06/2023 Time:6:53 AM Procedure(s): Bilateral lumbar facet joint nerve blocks L4-L5 and L5-S1 Diagnosis: Lumbar spondylosis Pre-Procedure [...] mouth once daily after until symptoms resolve. busPIRone HCl 10 MG Oral Tablet (Buspar) take 1 to 2 tablets by mouth twice a day as needed for anxiety Vitron-C 65-125 MG Oral Tablet (Iron-Vitamin C [...] take 3 caps by mouth every morning Patient not taking: Reported on 11/25/2022 Mirtazapine 15 MG Oral Tablet (Remeron) take 1/2 tab (7.5mg) by mouth every night Patient not taking: Reported on 11/25/2022 risperiDONE 0.5 MG Oral Tablet (RisperDAL) take 1 tablet by mouth every night at bedtime Patient not taking: Reported on 11/25/2022 FLUoxetine HCl 20 MG Oral Capsule (PROzac) TAKE THREE CAPSULES BY MOUTH EVERY MORNING Patient not taking: Reported on 11/25/2022 FLUoxetine HCl 20 MG Oral Capsule (PROzac) TAKE THREE CAPSULES BY MOUTH EVERY MORNING Patient not taking: Reported on 11/25/2022 Mirtazapine 15 MG Oral Tablet (Remeron) TAKE ONE-HALF TABLET BY MOUTH EVERY NIGHT Patient not taking: Reported on 11/25/2022 Mirtazapine 15 MG Oral Tablet (Remeron) TAKE ONE-HALF TABLET (7.5 MG.) BY MOUTH EVERY NIGHT Patient not taking: Reported on 11/25/2022 risperiDONE 0.25 MG Oral Tablet (RisperDAL) TAKE ONE TABLET BY MOUTH EVERY NIGHT AT BEDTIME Patient not taking: Reported on 11/25/2022 risperiDONE 0.25 MG Oral Tablet (RisperDAL) TAKE ONE TABLET BY MOUTH EVERY NIGHT AT BEDTIME Patient not taking: Reported on 11/25/2022 Omeprazole 20 MG Oral Capsule Delayed Release (PriLOSEC) TAKE ONE CAPSULE BY MOUTH EVERY MORNING *NEED UPDATED LABS* Furosemide 40 MG Oral Tablet (Lasix) TAKE ONE TABLET BY MOUTH EVERY MORNING Isosorbide Mononitrate ER 60 MG Oral Tablet Extended Release 24 Hour (Imdur) TAKE ONE TABLET BY MOUTH EVERY MORNING Lisinopril 20 MG Oral Tablet (Prinivil) TAKE ONE TABLET BY MOUTH EVERY MORNING Fluticasone Propionate 50 MCG/ACT Nasal Suspension (Flonase) Administer 2 Sprays into each nostril in the morning. metFORMIN HCl 1000 MG Oral Tablet (Glucophage) TAKE ONE TABLET BY MOUTH EVERY MORNING Vitamin B-12 1000 MCG Oral Tablet (Cyanocobalamin) Take 1 Tablet by mouth in the morning. Tiotropium [place] Monohydrate 18 MCG Inhalation Capsule (Spiriva) INHALE ONE CAPSULE VIA HANDIHALER EVERY MORNING. DO NOT SWALLOW CAPSULE. BiPAP every night at bedtime. Fluticasone-Salmeterol 230-21 MCG/ACT Inhalation Aerosol (Advair) INHALE TWO PUFFS BY MOUTH EVERY MORNING AND INHALE TWO PUFFS BY MOUTH AT BEDTIME, RINSE MOUTH AFTER USE busPIRone HCl 15 MG Oral Tablet (Buspar) TAKE ONE HALF TO ONE TABLET BY MOUTH THREE TIMES A DAY NEEDED FOR ANXIETY FLUoxetine HCl 20 MG Oral Capsule (PROzac) [...] at bedtime. clonazePAM (KLONOPIN) 0.5 MG Tablet TAKE TWO TABLETS AT BEDTIME, MAY TAKE ONE TABLET TWO TIMES A DAY NEEDED FOR ANXIETY ADDITIONALLY BUSPAR 15 MG PO TABS Take by mouth. DAILY MULTIVITAMIN PO TABS with lycopene Review [...] to use local anesthesia. Pb Alexander DO 01/06/2023 documented in this encounter Nursing Notes * Yissel Fonseca RN - 01/06/2023 11:01 AM EDT Visited by Dr Alexander. Verbalized understanding of discharge directions. Ready for discharge to home. * Gege Wilson RN - 01/06/2023 10:54 AM EDT Band aid applied to area. Patient transferred to PACU 11 via wheelchair * Gege Wilson RN - 01/06/2023 10:50 AM EDT Patient tolerating pain management injection well. documented in this encounter OR Notes * OR Surgeon - Pb Alexander DO - 01/06/2023 10:56 AM EDT OPERATIVE RECORD OR [facility], Operating Room [facility] [address] [place] [address] Walter Don : 1945 Location: @LOCATIONNAME@ SERVICE: Pain Management DATE: 01/06/2023 PRE-OP DIAGNOSIS: Lumbar spondylosis without myelopathy or radiculopathy. POST-OP DIAGNOSIS: Same. SURGEON: Pb Alexander DO. ASSISTANTS: None. ANESTHESIA: 1.5 cubic centimeters of 1% lidocaine. OPERATION: Bilateral lumbar facet joint nerve blocks, L4-L5 and L5-S1. FINDINGS: No intraoperative findings. ESTIMATED BLOOD LOSS: None. DRAINS: There were no drains placed. FLUIDS: None. URINE OUTPUT: None. SPECIMEN: None collected. COMPLICATIONS: None. CONDITION: Good. INDICATIONS AND HISTORY: The patient presents in anticipation of undergoing confirmatory facet joint injections to help determine if his lumbar pain is facet mediated. The procedure was reviewed, as well as the risks of bleeding, infection, neural injury, worsening pain. DESCRIPTION OF OPERATION: The patient was identified, and the procedure was verified. After obtaining appropriate informed consent, the patient was taken to the fluoroscopy suite and placed in a prone position. A time-out was taken to properly identify the patient and injection sites. The left lumbar region was sterilely prepped with ChloraPrep and draped. C-arm was turned in a left oblique projection. The skin and subcutaneous tissue infiltrated with 1% lidocaine, 0.5 cubic centimeter, at eachlevel. #25-gauge, 3-1/2-inch spinal needles were then directed with fluoroscopic control toward thejunction of the superior articular process with the superior medial aspect of the transverse process, making bony contact at L4, L5 and, sacral ala without pain or paresthesia. After a negative aspiration, 0.5 cubic centimeter of 0.50% preservative-free bupivacaine was easily injected through each needle and the needle was removed. Procedure was then repeated on the right side using identical technique. The patient tolerated the procedure well without immediate complication and will be re-evaluated in 24 hours by phone and was given appropriate discharge instructions, following postproceduralmonitoring. documented in this encounter Plan of Treatment Upcoming Encounters Date Type Specialty Care Team Description 01/08/2023 Office Visit Gastroenterology Agnes Bowers CRNP [address] [place] [address] 01/11/2023 Office Visit Cardiology Deisy Aguirre CRNP [address] [place] [address] 01/15/2023 Office Visit Family Medicine Johnnie Newby MD [address] [place] [address] 02/11/2023 Office Visit Sleep Disorders Hui Bishop CRNP [address] [place] [address] 02/26/2023 Office Visit Podiatry Bettye Herrmann DPM [address] [facility] [place] [phone] 07/08/2023 Imaging Radiology 07/13/2023 Office Visit Radiation Oncology Shawna Johnson MD [address] [place] [address] [place] [address] Scheduled Procedures Name Priority Associated Diagnoses Date/Ti me L-/S-SPINE PARAVERTEBRAL FACET INJ, 1 LEVEL 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 radiculopathy 01/06/2023 10:48 AM EDT L-/S-SPINE PARAVERTEBRAL FACET INJ, 2 LEVELS 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 radiculopathy 01/06/2023 10:48 AM EDT COLONOSCOPY FLEXIBLE PROXIMAL DIAGNOSTIC Recall [...] 05/01/2023 05/01/2022, 02/13/2022 CKD PHOS USE SMARTSET 47236 06/05/202305/20, 06/03/2021, 06/04/2020, Additional history exists GFR 06/17/2023 12/17/2022, 05/20, 12/02/2021, Additional history exists Diabetic Foot Exam 09/10/2023 09/09/2022, 1 , 11/12/2017, Additional history exists CKD HGB USE SMARTSET 01782 12/18/202312/17, 07/17/2021, 07/17/2021, Additional history exists DTaP,Tdap,and [...] this encounter Medical Devices Implanted Type Area Senior Regulatory Affairs Specialist Device Identifier Shelf Expiration Date Model / Serial / Lot Lens Intraoc 24.0 - [id number] - [id number] Implanted:Qty: 1 on 06/01/2017 by Nikhil Bolton MD at OR [facility] Left: Eye [employer] LOMB 07/17/2021 [id number] / [id number] / [id number] Lens Intraoc 24.0 - [id number] - [id number] Implanted:Qty: 1 on 06/08/2017 by Nikhil Bolton MD at OR [facility] Right: Eye BAUSCH [employer] LOMB 07/17/2021 [id number] / [id number] / [id number] documented as of this encounter Procedures Procedure Name Priority Date/Time Associated Diagnosis Comments FLUORO INTERVENTIONAL PAIN PROCEDURE NONBILLABLE Routine 01/06/2023 10:57 AM EDT documented in this encounter Results * FLUORO INTERVENTIONAL PAIN PROCEDURE NONBILLABLE (01/06/2023 10:57 AM EDT) Narrative Scheduling, Silent - 01/06/2023 10:59 AM EDT This procedure will not be read by a Radiologist. Please see operative note. Pb Acuñaian Catherine DO RAD FLUOROSCOPY documented in this encounter Administered Medications Inactive Administered Medications - up to 3 most recent administrations Medication Order MAR Action Action Date Dose Rate Site bupivacaine HCl (Sensorcaine) 0.5 % (PF) inj 7.5 mg 7.5 mg (1.5 mL), Injection, ONCE, On Wed01/06/23 at 1100, For 1 dose, Bilateral Given 01/06/2023 10:51 AM EDT 3 mL lidocaine 1 % inj 15 mg 15 mg (1.5 mL), Subcutaneous, ONCE, On Wed01/06/23 at 1100, For 1 dose, Bilateral Given 01/06/2023 10:49 AM EDT 3 mL O ther-Specify documented in this encounter Active and Recently Administered Medications Times are shown in EDT. Scheduled Medication Order 01/04/2023 01/05/2023 01/06/2023 bupivacaine HCl (Sensorcaine) 0.5 % (PF) inj 7.5 mg (COMPLETED) 7.5 mg (1.5 mL), Injection, ONCE, On Wed01/06/23 at 1100, For 1 dose, Bilateral 1051 (Given - Provid er: Gege Wilson RN - Comment: bilateral facet L4L5 [id number] doses) lidocaine 1 % inj 15 mg (COMPLETED) 15 mg (1.5 mL), Subcutaneous, ONCE, On Wed01/06/23 at 1100, For 1 dose, Bilateral 1049 (Given - Provid er: Gege Wilson RN - Comment: bilateral facet L4L5 T3H5cmsdib doses) documented in this encounter Advance Directives Documents on File Type Date Recorded Patient Commissioning Agent Expl anation Advance Directives and Livin babatunde Will 11/20/2005 ADVANCE DIRECTIVE Latest Code [...] were consensually agreed upon. Care Teams Business Agent Relationship Specialty Start Date End Date Johnnie Newby MD [address] [place] [address] PCP - General Family Medicine 09/13/20 documented as of this encounter
--- OUTSIDE RECORDS SUMMARY | 2023-04-15 00:19 | External Medical Summary ---
Author Name Unknown Address Unknown Organization K[facility] [address] [place] [address] Laboratory Report Ordering Provider Test Date Status ALEX MARIE 01/08/2023 14:22:35 Final Observation Date Value Abnormality Reference (Units ) Status WBC, Total 01/08/2023 14:22:35 7.22 4.00-10.8 0 (K/uL) Final RBC 01/08/2023 14:22:35 3.39 4.50-5.25 (M/uL) Final Hemoglobin 01/08/2023 14:22:35 9.2 Below low normal 14 .0-16.8 (g/dL) Final HCT 01/08/2023 14:22:35 31.4 Below low normal 40. 0-48.4 (%) Final MCV 01/08/2023 14:22:35 92.6 82.0-99.5 (fL) Final MCH 01/08/2023 14:22:35 27.1 27.0-34.0 (pg) Final MCHC 01/08/2023 14:22:35 29.3 32.0-36.0 (g/dL) Final RDW 01/08/2023 14:22:35 19.1 11.5-15.5 (%) Final Platelets 01/08/2023 14:22:35 237 140-400 (K /uL) Final MPV 01/08/2023 14:22:35 9.5 6.6-11.1 ( fL) Final Performing Location [facility] [address] [facility] [address] [place] [address]
--- OUTSIDE RECORDS SUMMARY | 2023-04-15 00:19 | External Medical Summary | Summary of Care ---
Author Name Unknown Organization [facility] Address [address] [place] [address] Phone [phone] Care Team Providers Care Hand Iii Cutter Name Role Phone Johnnie Newby MD Primary Care Provider [phone] Reason for Referral * Evaluate & Treat - Unlimited Visits (Within 10 days (routine)) - Authorized Specialty Diagnoses / Procedures Referred By Treva judd Referred To Contact Gastroenterology Diagnoses Fecal occult blood test positive Iron deficiency anemia Zack Brewer PA-C [address] [place] [address] Referral ID Status Reason Start Date Expiration Date Visits Requested Visits Authorized [id number] Authorized Specialty Services Required 01/04/2023 999 999 Question Answer Referral Priority Within 10 days (routine) For what condition is the patient being referred? All Gastro Conditions Reason for Visit * Reason Onset Date Comments Test Results 12/31/2022 Encounter Details Date Type Department Care Team Description 12/31/2022 Telephone Cardiology, [facility] [address] [place] [address] Zack Brewer PA-C [address] [place] [address] Test Results Allergies Active Allergy Reactions Severity Noted Date Comments Acetaminophen 05/06/2005 headaches documented as of this encounter (statuses as of 01/04/2023) Medications Medication Sig Dispensed Refills Start Date [...] hemoglobin A1c goal of less than 7.0% ([facility]) TEST ONCE DAILY 100 Strip 5 03/02/2018 Active Ventolin HFA 108 (90 Base) MCG/ACT Inhalation Aerosol SolutionIndications: COPD, moderate ([facility]) Take 2 Puffs by mouth 4 [...] 24 Hour (Imdur)Indications:C oronary artery disease involving [place] coronary artery without angina pectoris TAKE ONE [...] Information Patient not taking.Reported on 11/25/2022 Tiotropium [place] Monohydrate 18 MCG Inhalation Capsule (Spiriva) INHALE [...] COPD, group B, by GOLD 2017 classification ([facility]) INHALE TWO PUFFS BY MOUTH EVERY [...] s:COPD, group D, by GOLD 2017 classification ([facility]) TAKE ONE TABLET BY MOUTH EVERY [...] Release 24 Hour (toPROL XL)Indications:SVT (supraventricular tachycardia) ([facility]),NSVT (nonsustained ventricular tachycardia) ([facility]) TAKE ONE TABLET BY MOUTH EVERY [...] as of this encounter (statuses as of 01/04/2023) Active Problems Problem Noted Date Gouty arthropathy [...] long-term current use of insulin 08/02/2018 Old [place] (myocardial infarction) 8 YISSEL treated with BiPAP 01/03/2018 Overview: Wears BiPAP at night Type 2 diabetes mellitus with hemoglobin A1c goal of less than 8.0% 10/23/2014 Overview: ICD-10 update of inactive term CVA, old, 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 PTSD (post-traumatic stress disorder) Gastroesophageal reflux disease without esophagitis 01/05/2014 Coronary artery disease invo lving [place] coronary artery of [place] heart without angina pectoris 11/27/2013 Tobacco abuse 11/27/2013 HTN, goal below 130/80 03/06/2009 Overview: Modified per HTN protocol #16. documented as of this encounter (statuses as of 01/04/2023) Resolved Problems Problem Noted Date Resolved Date [...] as of this encounter (statuses as of 01/04/2023) Immunizations Name Administration Dates Next Due COVID-19 mRNA, LNP-s, No Pre serve, 2-Dose Series (FreeATM) 02/10/2022,07/13/2020,06/17/2020 Pneumococcal Conjugate Vacc, 13 Valent (Prevnar) [...] encounter Miscellaneous Notes * Telephone Encounter - YISSEL Feliz - 01/04/2023 9:31 AM EDT Appt jessa'd 01/08 antoine/ Agnes Bowers * Telephone Encounter - Manish Zee LPN - 01/04/2023 9:26 AM EDT Referral placed per patient's MyChart reply. Scheduling please assist. * Telephone Encounter - Manish Zee LPN - 12/31/2022 3:55 PM EDT Sent patient a [facility] message to make aware. Awaiting reply to place referral. ----- Message from Zack Brewer PA-C sent at 12/31/2022 10:42 AM EDT ----- Refer to GI, RE: + FOBT, iron deficiency anemia. documented in this encounter Plan of Treatment Upcoming Encounters Date Type Specialty Care Team Description 01/08/2023 Office Visit Gastroenterology Agnes Bowers CRNP [address] [place] [address] 01/11/2023 Office Visit Cardiology Deisy Aguirre CRNP [address] [place] [address] 01/13/2023 Hospital Encounter Surgery Pb Alexander, [address] [place] [address] 01/13/2023 Surgery Surgery Pb Alexander, [address] [place] [address] L-/S-SPINE PARAVERTEBRAL FACET INJ, 1 LEVEL 01/15/2023 Office Visit Family Medicine Johnnie Newby MD [address] [place] [address] 02/11/2023 Office Visit Sleep Disorders Hui Bishop CRNP [address] [place] [address] 02/26/2023 Office Visit Podiatry Bettye Herrmann DPM [address] [place] [address] 07/08/2023 Imaging Radiology 07/13/2023 Office Visit Radiation Oncology Shawna Johnson MD [address] [place] [address] Scheduled Procedures Name Priority Associated Diagnoses Date/Ti me L-/S-SPINE PARAVERTEBRAL FACET INJ, 1 LEVEL 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 radiculopathy 01/13/2023 10:20 AM EDT L-/S-SPINE PARAVERTEBRAL FACET INJ, 2 LEVELS 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 radiculopathy 01/13/2023 10:20 AM EDT COLONOSCOPY FLEXIBLE PROXIMAL DIAGNOSTIC Recall History of colon polyps Scheduled Referrals Name Type Priority Associated Diagnoses Order Schedule GASTROENTEROLOGY REFERRAL OP Referral Within 10 days (routine) Fecal occult blood test positive Iron deficiency anemia Ordered: 01/04/2023 Health Maintenance Due Date Last Done Comments [...] 05/01/2023 05/01/2022, 02/13/2022 CKD PHOS USE SMARTSET 23933 06/05/202305/20, 06/03/2021, 06/04/2020, Additional history exists GFR 06/17/2023 12/17/2022, 05/20, 12/02/2021, Additional history exists Diabetic Foot Exam 09/10/2023 09/09/2022, 1 , 11/12/2017, Additional history exists CKD HGB USE SMARTSET 27485 12/18/202312/17, 07/17/2021, 07/17/2021, Additional history exists DTaP,Tdap,and [...] this encounter Medical Devices Implanted Type Area Medical Apparatus Model Maker Device Identifier Shelf Expiration Date Model / Serial / Lot Lens Intraoc 24.0 - [id number] - [id number] Implanted:Qty: 1 on 06/01/2017 by Nikhil Bolton MD at OR [facility] Left: Eye [employer]USCH [employer] LOMB 07/17/2021 [id number] / [id number] / [id number] Lens Intraoc 24.0 - [id number] - [id number] Implanted:Qty: 1 on 06/08/2017 by Nikhil Bolton MD at OR [facility] Right: Eye BAUSCH & LOMB 07/17/2021 [id number] / [id number] / [id number] documented as of this encounter Visit Diagnoses Diagnosis Fecal occult blood test positive- Primary Nonspecific abnormal finding in stool contents Iron deficiency anemia Iron deficiency anemia, unspecified 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 Care Teams Hand Iii Cutter Relationship Specialty Start Date End Date Johnnie Newby MD [address] [place] [address] PCP - General Family Medicine 09/13/20 documented as of this encounter
--- OUTSIDE RECORDS SUMMARY | 2023-04-15 00:19 | External Medical Summary | Summary of Care ---
Author Name Unknown Organization [facility] Address [address] [place] [address] Phone [phone] Care Team Providers Care Information Technology Security Manager Name Role Phone Johnnie Newby MD Primary Care Provider [phone] Reason for Visit * Reason Onset Date Comments STAIR AAA 12/31/2022 Encounter Details Date Type Department Care Team Description 12/31/2022 Telephone STAIR [facility] [address] [place] [address] Program, Stair [address] [place] [address] STAIR [facility] Allergies Active Allergy Reactions Severity Noted Date Comments Acetaminophen 05/06/2005 headaches documented as of this encounter (statuses as of 12/31/2022) Medications Medication Sig Dispensed Refills Start Date [...] hemoglobin A1c goal of less than 7.0% ([facility]) TEST ONCE DAILY 100 [...] 24 Hour (Imdur)Indications:C oronary artery disease involving [place] coronary artery without angina pectoris TAKE ONE [...] Information Patient not taking.Reported on 11/25/2022 Tiotropium [place] Monohydrate 18 MCG Inhalation Capsule (Spiriva) INHALE [...] COPD, group B, by GOLD 2017 classification ([facility]) INHALE TWO PUFFS BY [...] s:COPD, group D, by GOLD 2017 classification ([facility]) TAKE ONE TABLET BY [...] Release 24 Hour (toPROL XL)Indications:SVT (supraventricular tachycardia) ([facility]),NSVT (nonsustained ventricular tachycardia) ([facility]) TAKE ONE TABLET BY [...] as of this encounter (statuses as of 12/31/2022) Active Problems Problem Noted Date Gouty arthropathy [...] long-term current use of insulin 08/02/2018 Old [place] (myocardial infarction) 8 YISSEL treated with BiPAP 01/03/2018 Overview: Wears BiPAP at night Type 2 diabetes mellitus with hemoglobin A1c goal of less than 8.0% 10/23/2014 Overview: ICD-10 update of inactive term CVA, old, 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 PTSD (post-traumatic stress disorder) Gastroesophageal reflux disease without esophagitis 01/05/2014 Coronary artery disease invo lving [place] coronary artery of [place] heart without angina pectoris 11/27/2013 Tobacco abuse 11/27/2013 HTN, goal below 130/80 03/06/2009 Overview: Modified per HTN protocol #16. documented as of this encounter (statuses as of 12/31/2022) Resolved Problems Problem Noted Date Resolved Date [...] as of this encounter (statuses as of 12/31/2022) Immunizations Name Administration Dates Next Due COVID-19 mRNA, LNP-s, No Pre serve, 2-Dose Series ([employer]) 02/10/2022,07/13/2020,06/17/2020 Pneumococcal Conjugate Vacc, 13 Valent (Prevnar) [...] encounter Miscellaneous Notes * Telephone Encounter - Chelsie Gonzalez LPN - 12/31/2022 2:30 PM EDT AAA - Clinical Summary Name: Walter Don Age: [age] year old AAA Review: Follow-up Patient Identified by: Lost to Follow-up Report Imaging Interpretation: Duplex Type of Result: AAA >= 4 cm AAA Care Plan Recommendation: Aortic Duplex - details below Details: in 1 year Next steps: No action needed at this time. Patient was seen by vascular surgery today. Next clinic visit with testing prior is due in one year with Dr Thompson at [facility]. Will continue to track. Chelsie Gonzalez LPN Coordinator STAIR (System to Track Abnormalities of Importance Reliably) [facility] AORTIC DUPLEX EVAL-COMPLETE 12/31/2022 Narrative VASCULAR LAB RESULTS DATE OF EXAM: 12/31/22 PRESENTING CONDITIONS: aaa Immediately before proceeding with the vascular lab procedure reported below, the identity of the patient, the correct exam and the correct procedural site were verified. Steele scale, color flow and spectral doppler were performed for this examination. PHYSICIAN REPORT: Abdominal Aorta Duplex Examination. Spectral Doppler demonstrates evidence of normal waveforms of the abdominal aorta. Peak systolic velocity measurements of the aorta are 45 centimeters per second. The maximum diameter of the proximal abdominal aorta measures 2.20 centimeters by 2.20 centimeters. The maximum diameter of the mid abdominal aorta measures 2.30 centimeters by 2.30 centimeters. The maximum diameter of the distal abdominal aorta measures 4.0 centimeters by 4.0 centimeters. The maximum diameter of the proximal right common iliac artery was not visualized. The maximum diameter of the proximal left common iliac artery was not visualized. Impression : There is evidence of a 4.0 cm abdominal aortic aneurysm. Color Doppler imaging demonstrates flow consistent with a patent lumen at and distal to the aortic aneurysm. documented in this encounter Plan of Treatment Upcoming Encounters Date Type Specialty Care Team Description 01/11/2023 Office Visit Cardiology Deisy Aguirre CRNP [address] [place] [address] 01/13/2023 Hospital Encounter Surgery Pb Alexander DO [address] [place] [address] 01/13/2023 Surgery Surgery Pb Alexander DO [address] [place] [address] L-/S-SPINE PARAVERTEBRAL FACET INJ, 1 LEVEL 01/15/2023 Office Visit Family Medicine Johnnie Newby MD [address] [place] [address] 02/11/2023 Office Visit Sleep Disorders Hui Bishop CRNP [address] [place] [address] 02/26/2023 Office Visit Podiatry Bettye Herrmann DPM [address] [facility] [place] [address] 07/08/2023 Imaging Radiology 07/13/2023 Office Visit Radiation Oncology Shawna Johnson MD [address] [place] [address] Scheduled Procedures Name Priority [...] 05/01/2023 05/01/2022, 02/13/2022 CKD PHOS USE SMARTSET 78601 06/05/202305/20, 06/03/2021, 06/04/2020, Additional history exists GFR 06/17/2023 12/17/2022, 05/20, 12/02/2021, Additional history exists Diabetic Foot Exam 09/10/2023 09/09/2022, 1 , 11/12/2017, Additional history exists CKD HGB USE SMARTSET 69178 12/18/202312/17, 07/17/2021, 07/17/2021, Additional history exists DTaP,Tdap,and [...] this encounter Medical Devices Implanted Type Area Director Of Enterprise Strategy Device Identifier Shelf Expiration Date Model / Serial / Lot Lens Intraoc 24.0 - [id number] - [id number] Implanted:Qty: 1 on 06/01/2017 by Nikhil Bolton MD at OR [facility] Left: Eye [employer] 07/17/2021 [id number] / [id number] / [id number] Lens Intraoc 24.0 - [id number] - [id number] Implanted:Qty: 1 on 06/08/2017 by Nikhil Bolton MD at OR [facility] Right: Eye [employer] 07/17/2021 [id number] / [id number] / [id number] documented as of this encounter Advance Directives Documents on File Type Date Recorded Patient Apartment Community Manager Expl anation Advance Directives and Yu fine [...] and were consensually agreed upon. Care Teams Information Technology Security Manager Relationship Specialty Start Date End Date Johnnie Newby MD [address] [place] [address] PCP - General Family Medicine 09/13/20 documented as of this encounter
--- OUTSIDE RECORDS SUMMARY | 2023-04-15 00:19 | External Medical Summary ---
Author Name Unknown Address Unknown Organization K01:[facility] - [address] [place] [address] Laboratory Report Ordering Provider Test Date Status ERIN JANSEN 01/08/2023 14:22:35 Final Observation Date Value Abnormality Reference (Units ) Status IgA 01/08/2023 14:22:35 140 70-400 (mg /dL) Final Performing Location [facility] - [address] [place] [address]
--- OUTSIDE RECORDS SUMMARY | 2023-04-15 00:19 | External Medical Summary | Summary of Care ---
Author Name Unknown Organization [facility] Address [address] [place] [address] Phone [phone] Care Team Providers Care Customer Contact Sales Associate Name Role Phone Johnnie Newby MD Primary Care Provider [phone] Reason for Visit * Reason Comments Outpatient Testing Encounter Details Date Type Department Care Team Description 12/30/2022 Laboratory Laboratory [address] [place] [address] , Specimen Drop Off [address] [place] [address] Anemia; Abnormal CBC Allergies Active Allergy Reactions Severity Noted Date Comments Acetaminophen 05/06/2005 headaches documented as of this encounter (statuses as of 12/30/2022) Medications Medication Sig Dispensed Refills Start Date [...] hemoglobin A1c goal of less than 7.0% ([facility]) TEST ONCE DAILY [address] [...] 24 Hour (Imdur)Indications:C oronary artery disease involving [place] coronary artery without angina pectoris TAKE ONE [...] Information Patient not taking.Reported on 11/25/2022 Tiotropium [place] Monohydrate 18 MCG Inhalation Capsule (Spiriva) INHALE [...] COPD, group B, by GOLD 2017 classification ([facility]) INHALE TWO PUFFS BY MOUTH [...] s:COPD, group D, by GOLD 2017 classification ([facility]) TAKE ONE TABLET BY MOUTH [...] Release 24 Hour (toPROL XL)Indications:SVT (supraventricular tachycardia) ([facility]),NSVT (nonsustained ventricular tachycardia) ([facility]) TAKE ONE TABLET BY MOUTH [...] MG/3ML) 0.083% inhalation solution 2.5 mgIndications:COPD, severe ([facility]) 2.5 mg NEBULIZER Q4H PRN 07/08/2018 Active Albuterol Sulfate (Proventil) (2.5 MG/3ML) 0.083% inhalation solution 2.5 mgIndications:COPD, moderate ([facility]) 2.5 mg NEBULIZER PRN 02/13/2022 02/13/2023 Active Albuterol Sulfate (Proventil) (5 MG/ML) 0.5% *conc* inhalation solution 2.5 mgIndications:COPD, moderate (HCC) 2.5 mg NEBULIZER PRN 02/13/2022 02/13/2023 Active documented as of this encounter (statuses as of 12/30/2022) Active Problems Problem Noted Date Gouty arthropathy [...] long-term current use of insulin 08/02/2018 Old [place] (myocardial infarction) 8 YISSEL treated [...] esophagitis 01/05/2014 Coronary artery disease invo lving [place] coronary artery of [place] heart without angina pectoris 11/27/2013 Tobacco abuse 11/27/2013 HTN, goal below 130/80 03/06/2009 Overview: Modified per HTN protocol #16. documented as of this encounter (statuses as of 12/30/2022) Resolved Problems Problem Noted Date Resolved Date [...] as of this encounter (statuses as of 12/30/2022) Immunizations Name Administration Dates Next Due COVID-19 mRNA, LNP-s, No Pre serve, 2-Dose Series ([employer]) 02/10/2022,07/13/2020,06/17/2020 Pneumococcal Conjugate Vacc, 13 Valent (Prevnar) [...] Vascular Surgery Cyril Thompson MD [address] [facility] [place] [address] 01/11/2023 Office Visit Cardiology Deisy Aguirre CRNP [address] [place] [address] 01/13/2023 Hospital Encounter Surgery Pb Alexander, [address] [place] [address] 01/13/2023 Surgery Surgery Pb Alexander, DO [address] [place] [address] L-/S-SPINE PARAVERTEBRAL FACET INJ, 1 LEVEL 01/15/2023 Office Visit Family Medicine Johnnie Newby MD [address] [place] [address] 02/11/2023 Office Visit Sleep Disorders Hui Bishop CRNP [address] [place] [address] 02/26/2023 [facility] [address] [facility] [place] [id number] 07/08/2023 Imaging Radiology 07/13/2023 Office Visit Radiation Oncology Shawna Johnson MD [address] [place] [address] [place] [address] Pending Results Name Type Priority Associated Diagnoses Date /Time FECAL OCCULT BLOOD, EIA Lab Routine Anemia Abnormal CBC 12/30/2022 1:06 PM EDT Scheduled Procedures Name Priority Associated [...] series) 04/07/2022 02/10/2022, 07/13/2020, 06/17/2020 Albumin/Creatinine Ratio 06/04/202206/04/2 022, 04/04/2018, 11/10/2016, Additional history exists HbA1c [...] 05/01/2023 05/01/2022, 02/13/2022 CKD PHOS USE SMARTSET 07881 06/05/202305/20, 06/03/2021, 06/04/2020, Additional history exists GFR 06/17/2023 12/17/2022, 05/20, 12/02/2021, Additional history exists Diabetic Foot Exam 09/10/2023 09/09/2022, 1 , 11/12/2017, Additional history exists CKD HGB USE SMARTSET 19560 12/18/202312/17, 07/17/2021, 07/17/2021, Additional history exists DTaP,Tdap,and [...] this encounter Medical Devices Implanted Type Area Industrial Engineering Technician Device Identifier Shelf Expiration Date Model / Serial / Lot Lens Intraoc 24.0 - [id number] - [id number] Implanted:Qty: 1 on 06/01/2017 by Nikhil Bolton MD at OR [facility] Left: Eye [employer] 07/17/2021 [id number] / [id number] / [id number] Lens Intraoc 24.0 - [id number] - [id number] Implanted:Qty: 1 on 06/08/2017 by Nikhil Bolton MD at OR [facility] Right: Eye [employer] 07/17/2021 [id number] / [id number] / [id number] documented as of this encounter Visit Diagnoses Diagnosis Anemia Anemia, unspecified Abnormal CBC Other abnormal blood chemistry 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 radiculopathy Lumbosacral spondylosis without myelopathy documented in this encounter Advance Directives Documents on File Type Date Recorded Patient Gas Welder Expl anation Advance Directives and [place] g Will 11/20/2005 ADVANCE DIRECTIVE Latest Code [...] were consensually agreed upon. Care Teams Customer Contact Sales Associate Relationship Specialty Start Date End Date Johnnie Newby MD [address] [place] [address] PCP - General Family Medicine 09/13/20 documented as of this encounter
--- OUTSIDE RECORDS SUMMARY | 2023-04-15 00:19 | External Medical Summary ---
Author Name Unknown Address Unknown Organization K01:[facility] [place] [address] [place] [address] Laboratory Report Ordering Provider Test Date Status ERIN JANSEN 01/08/2023 14:22:35 Final Observation Date Value Abnormality Reference (Units ) Status Erythrocyte sedimentation rate by Photometric method 01/08/2023 14:22:35 59 Above high normal <20 (mm/hour) Final Performing Location [facility] [place] - [address] [place] [address]
--- OUTSIDE RECORDS SUMMARY | 2023-04-15 00:19 | External Medical Summary | Summary of Care ---
Author Name Unknown Organization [facility] Address [address] [place] [address] Phone [phone] Care Team Providers Care Certified Control Systems Technician Name Role Phone Johnnie Newby MD Primary Care Provider [phone] Reason for Visit * Reason Onset Date Comments Follow Up Medication Administration 12/31/2022 Flu an d/or Pneumo Inj Encounter Details Date Type Department Care Team Description 12/31/2022 Office Visit Vascular Surg [facility] [address] [place] [address] Cyril Thompson MD [address] [place] [address] Infrarenal abdominal aortic aneurysm (AAA) without rupture (HCC)*; Need for prophylactic vaccination and inoculation against influenza; Amaurosis fugax Allergies Active Allergy Reactions Severity Noted Date [...] Base) MCG/ACT Inhalation Aerosol SolutionIndications: COPD, moderate ([facility]) Take 2 Puffs by mouth 4 [...] 24 Hour (Imdur)Indications:C oronary artery disease involving [place] coronary artery without angina pectoris TAKE ONE [...] Information Patient not taking.Reported on 11/25/2022 Tiotropium Condon Monohydrate 18 MCG Inhalation Capsule (Spiriva) INHALE [...] COPD, group B, by GOLD 2017 classification ([facility]) INHALE TWO PUFFS BY MOUTH EVERY [...] Release 24 Hour (toPROL XL)Indications:SVT (supraventricular tachycardia) ([facility]),NSVT (nonsustained ventricular tachycardia) ([facility]) TAKE ONE [...] long-term current use of insulin 08/02/2018 Old VT (myocardial infarction) 8 YISSEL treated [...] esophagitis 01/05/2014 Coronary artery disease invo lving [place] coronary artery of [place] heart without angina pectoris 11/27/2013 Tobacco abuse [...] mRNA, LNP-s, No Pre serve, 2-Dose Series ([employer]) 02/10/2022,07/13/2020,06/17/2020 Pneumococcal Conjugate Vacc, 13 Valent (Prevnar) [...] Tobacco: Never Tobacco Cessation:Ready to Q uit: No; Counseling Given: No Comments:started age 7 Alcohol Use Standard Drinks/Week [...] Sign Reading Time Taken Comments Blood Pressure 118/52 12/31/2022 10:28 AM EDT Pulse 54 12/31/2022 10:28 AM EDT Temperature 36.5 C (97.7 F) 12/31/2022 1 0:28 AM EDT Respiratory Rate - - Oxygen Saturation - - Inhaled Oxygen Concentration - - Weight 89.8 kg (197 lb 14.4 oz) 023 10:28 AM EDT Height - - Body Mass Index 30.09 10/29/2022 11:58 AM EDT documented in this encounter Patient Instructions * Patient Instructions* Kamini Garcia LPN - 12/31/2022 10:36 AM EDT ~~PATIENT INSTRUCTIONS FOR FLU SHOT~~ Possible side effects of influenza vaccine, (flu shot), are usually mild and include: 1. Soreness or redness at injection site 2. Low grade fever 3. Body aches You may use Tylenol/Acetaminophen as needed for these symptoms. LET YOUR DOCTOR KNOW IMMEDIATELY IF YOU HAVE DIFFICULTY BREATHING OR SWALLOWING, EXPERIENCE ITCHINGOF FEET OR HANDS, HAVE SWELLING OF EYES, FACE OR INSIDE OF NOSE. documented in this encounter Progress Notes * Stacey Gomez PA-C - 12/31/2022 10:43 AM EDT Date of Service: 12/31/2022 10:43 AM Walter Don is a 77 year old male. PCP Johnnie Newby MD Chief Complaint: Surveillance of AAA. Accompanied by HPI: Smoker with lung cancer, COPD, CAD, DM, dyslipidemia, HTN, YISSEL, and obesity. AAA was noted on 2019 screening u/s. ABDOMINAL AORTIC ANEURYSM: Patient denies any symptoms related to AAA. Patient's chronic low back pain is unchanged. 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 had a thoracoabdominal AAA (open repair) by Dr. Knott in 2019. Current Outpatient Medications Medication Sig Dispense Refill [...] 1 Capsule before bedtime. 90 Capsule 3 FLUoxetine HCl 20 MG Oral Capsule (PROzac) TAKE 3 CAPSULES BY MOUTH EVERY MORNING 270 Capsule 0 BiPAP every night at bedtime. Vitamin B-12 1000 MCG Oral Tablet (Cyanocobalamin) Take 1 Tablet by mouth in the morning. Fluticasone Propionate 50 MCG/ACT Nasal Suspension (Flonase) [...] MOUTH EVERY MORNING 100 Tablet 1 Tiotropium Condon Monohydrate 18 MCG Inhalation Capsule (Spiriva) INHALE ONE CAPSULE VIA HANDIHALER EVERY MORNING. DO NOT SWALLOW CAPSULE. 90 Capsule 3 Fluticasone-Salmeterol 230-21 MCG/ACT Inhalation Aerosol (Advair) INHALE TWO PUFFS BY MOUTH EVERY MORNING AND INHALE TWO PUFFS BY MOUTH AT BEDTIME, RINSE MOUTH AFTER USE 36 g 3 busPIRone HCl 15 MG Oral Tablet (Buspar) TAKE ONE HALF TO ONE TABLET BY MOUTH THREE TIMES A DAY NEEDED FOR ANXIETY 90 Tablet 0 Roflumilast 500 MCG Oral Tablet [...] BY MOUTH AT BEDTIME 90 Tablet 1 busPIRone HCl 10 MG Oral Tablet (Buspar) take 1 to 2 tablets by mouth twice a day as needed for anxiety 90 Tablet 0 Vitron-C 65-125 MG Oral Tablet (Iron-Vitamin C 65-125 mg per tab) Take 1 Tablet by mouth in the morning. Colchicine 0.6 MG Oral Tablet Take 2 tablets by mouth. One hour later, take 1 tablet by mouth. Take1 tablet by mouth once daily after until symptoms resolve. 90 Tablet 3 Mirtazapine 15 MG Oral Tablet (Remeron) TAKE ONE-HALF TABLET BY MOUTH EVERY NIGHT (Patient not taking: Reported on 11/25/2022) 45 Tablet 0 FLUoxetine HCl 20 MG Oral Capsule (PROzac) TAKE THREE CAPSULES BY MOUTH EVERY MORNING (Patient not taking: Reported on 11/25/2022) 270 Capsule 0 Mirtazapine 15 MG Oral Tablet (Remeron) TAKE ONE-HALF TABLET (7.5 MG.) BY MOUTH EVERY NIGHT (Patient not taking: Reported on 11/25/2022) 45 Tablet 0 risperiDONE 0.25 MG Oral Tablet (RisperDAL) TAKE ONE TABLET BY MOUTH EVERY NIGHT AT BEDTIME (Patient not taking: Reported on 11/25/2022) 90 Tablet 0 FLUoxetine HCl 20 MG Oral Capsule (PROzac) TAKE THREE CAPSULES BY MOUTH EVERY MORNING (Patient not taking: Reported on 11/25/2022) 270 Capsule 0 risperiDONE 0.25 MG Oral Tablet (RisperDAL) TAKE ONE TABLET BY MOUTH EVERY NIGHT AT BEDTIME (Patient not taking: Reported on 11/25/2022) 90 Tablet 0 FLUoxetine HCl 20 MG Oral Capsule (PROzac) take 3 caps by mouth every morning (Patient not taking: Reported on 11/25/2022) 270 Capsule 0 risperiDONE 0.5 MG Oral Tablet (RisperDAL) take 1 tablet by mouth every night at bedtime (Patient not taking: Reported on 11/25/2022) 90 Tablet 0 Mirtazapine 15 MG Oral Tablet (Remeron) take 1/2 tab (7.5mg) by mouth every night (Patient not taking: Reported on 11/25/2022) 45 Tablet 0 Current Facility-Administered Medications Medication [...] inhalation solution 2.5 mg 2.5 mg Nebulizer PRJoseph Landrum MD 2.5 mg at 04/14/22 1246 Review of patient's allergies indicates: Allergen Reactions Tylenol [Acetaminophen] headaches Patient Active Problem List Diagnosis Code HTN, goal below 130/80 I10 Coronary artery disease involving [place] coronary artery of [place] heart without angina pectoris I25.10 Tobacco abuse Z72.0 CVA, old, ataxia I69.993 PTSD (post-traumatic stress disorder) F43.10 Gastroesophageal reflux disease without esophagitis K21.9 Type 2 diabetes mellitus with hemoglobin A1c goal of less than 8.0% ([facility]) E11.9 Old VT (myocardial infarction) I25.2 YISSEL treated with BiPAP G47.33 Type 2 diabetes mellitus with diabetic neuropathy, without long-term current use of insulin ([facility]) E11.40 Peripheral arterial disease ([facility]) I73.9 Dyslipidemia E78.5 COPD, group D, by GOLD 2017 classification ([facility]) J44.9 Carotid stenosis, non-symptomatic I65.29 NSVT (nonsustained ventricular tachycardia) ([facility]) I47.29 Aortic valve stenosis I35.0 Hypertensive kidney disease with stage 3a chronic kidney disease ([facility]) I12.9, N18.31 AAA (abdominal aortic aneurysm) ([facility]) I71.40 Chronic kidney disease, stage 3a ([facility]) N18.31 Malignant neoplasm of right upper lobe of lung ([facility]) C34.11 Depression with anxiety F41.8 History of cardioembolic cerebrovascular accident (CVA) Z86.73 Overweight (BMI 25.0-29.9) E66.3 Gouty arthropathy M10.9 Past Medical History: Diagnosis Date Asthma Benign [...] hemoglobin A1c goal of less than 8.0% ([facility]) 10/23/2014 ICD-10 update of inactive term Past Surgical History: Procedure Laterality Date BRONCHOSCOPY, DIAGNOSTIC N/A 06/12/2020 BRONCHOSCOPY DIAGNOSTIC WITH OR WITHOUT WASHING performed by Warren Patel MD at ENDOSCOPY [facility] COLONOSCOPY THRU STOMA, W/BIOPSY 05/28/2010 andenomatous tissue--repeat in 3 months COLONOSCOPY THRU STOMA, W/BIOPSY 09/18/2010 adenomatous-repeat colonoscopy in 3-6 months COLONOSCOPY THRU STOMA, W/BIOPSY 04/09/2011 polyps x3 , path shows adenomatous tissue repeat in 1 years COLONOSCOPY, DIAGNOSTIC (RECTUM) 05/20/2016 adenomatous polyps, poor prep, diverticulosis, repeat 3 yrs/[facility] COLONOSCOPY, DIAGNOSTIC (RECTUM) 06/06/2019 hemorrhoids/diverticulosis sigmoid and descending colon/small AVM/biopsies show adenomatous polyps/recall 6-9 months/COLONOSCOPY FLEXIBLE PROXIMAL DIAGNOSTIC performed by Clemencia Marinelli MD at[facility]COPY [facility] COLONOSCOPY, DIAGNOSTIC (RECTUM) 03/05/2022 benign adenomatous polyp, repeat 1 yr / COLONOSCOPY FLEXIBLE PROXIMAL DIAGNOSTIC performed by Clemencia Marinelli MD at ENDOSCOPY [facility] L-/S-SPINE PARAVERTEBRAL FACET INJ,1 LEVEL 11/25/2022 L-/S-SPINE PARAVERTEBRAL FACET INJ, 1 LEVEL performed by Pb Alexander DO at OR [facility] L-/S-SPINE PARAVERTEBRL FACET INJ,2 LEVELS 11/25/2022 L-/S-SPINE PARAVERTEBRAL FACET INJ, 2 LEVELS performed by Pb Alexander DO at OR [facility] MISCELLANEOUS ORDER ([facility] ONLY) 1998 henria repair OTHER (INFORMATION) pilonidal cyst removal OTHER (INFORMATION) repair of bilateral shoulder for bone spur and repair of torn muscles right shoulder REMOVE CATARACT, INSERT LENS PROSTH Left 06/01/2017 left EXTRACAPSULAR CATARACT REMOVAL WITH INTRAOCULAR LENS performed by Nikhil Bolton MD at OR [facility] REMOVE CATARACT, INSERT LENS PROSTH Right 06/08/2017 right EXTRACAPSULAR CATARACT REMOVAL WITH INTRAOCULAR LENS performed by Nikhil Bolton MD at OR [facility] Family History Problem Relation Age of [...] Resource Strain: Not on file Food Insecurity: Not on file Transportation Needs: Not on file Physical Activity: Not on file Stress: Not on file Social Connections: Not on file Intimate Partner Violence: Not on file Housing Stability: Not on file COMPLETE REVIEW OF SYSTEMS: EYES: Denies amaurosis fugax. CARDIOVASCULAR: denies chest pains RESPIRATORY: reports shortness of breath, reports ALMAGUER, uses CPAP, reports lung CA. GASTROINTESTINAL: denies bright red blood per rectum. GENITOURINARY: denies hematuria. MUSKULOSKELETAL: reports chronic low back pain. Filed Vitals: 12/31/22 1028 BP: 118/52 Pulse: 54 Temp: 36.5 C (97.7 F) TempSrc: Temporal Artery Weight: 89.8 kg (197 lb 14.4 oz) Physical Exam: Constitutional: well nourished, well groomed Head and face: normocephalic,atraumatic Eyes: normal lids,normal sclera,normal conjunctiva, Neck: supple, symmetrical,thyroid normal Respiratory: normal effort,clear to auscultation Cardiovascular: normal heart sounds,regular rhythm Abdomen: no masses noted Skin: no rashes, lesions, or ulcers noted Psychiatric: normal judgement and insight,normal mood,normal affect DIAGNOSTIC STUDIES: 12/31/22: aortic duplex: 4 cm AAA, iliac UI 12/31/22: carotid duplex: JEANNETTE 97/35, LICA 137/45, verts ante The above diagnostic images were directly visualized and independently interpreted by me on 12/31/2022 with results as above 12/09/21: Aortic Duplex: 4 cm AAA. Limited. 09/27/20 aortic duplex: 3.6 cm 05/29/20 PET scan: AAA 4.1 cm 07/11/18 aortic duplex: AAA 3.9 (limited) LABS: Lab Results Component Value Date/Time CREATININE - [facility] 1.6 (H) 12/17/2022 01:24 PM CREATININE - [facility] 1.4 (H) 06/05/2022 12:49 PM CREATININE - [facility] 1.3 (H) 12/02/2021 08:39 AM CREATININE - [facility] 1.2 11/30/2019 09:17 AM CREATININE - [facility] 1.2 01/16/2019 10:16 AM CREATININE - [facility] 1.2 04/01/2018 03:47 PM CREATININE, RANDOM URINE - [facility] 161 06/04/2021 10:41 AM CREATININE, RANDOM URINE - [facility] 162 04/04/2018 10:49 AM CREATININE, RANDOM URINE - [facility] 24 11/10/2016 08:53 AM CREATININE, RANDOM URINE - [facility] 29 10/24/2015 11:35 AM CREATININE-OUTSIDE LAB 1.20 04/28/2016 12:00 AM Lab Results Component Value Date/Time LDL (CALCULATED) 231. (HH) 02/11/1996 09:20 AM LDL CHOLESTEROL (CALCULATED) - [facility] 127 06/03/2021 08:37 AM LDL CHOLESTEROL (CALCULATED) - [facility] 110 11/30/2019 09:17 AM LDL CHOLESTEROL (DIRECT MEASURE) - [facility] NOT APPLICABLE 11/30/2019 09:17 AM LDL CHOLESTEROL (DIRECT MEASURE) - [facility] 123 05/18/2016 03:54 PM Hemoglobin A1C (%) Date Value 06/05/2022 6.2 (H) 11/30/2019 6.1 (H) Hemoglobin Results: Lab Results Component Value Date/Time HGB - [facility] 9.8 (L) 12/17/2022 01:24 PM HGB - [facility] 11.2 (L) 07/17/2021 02:11 PM HGB - [facility] 12.2 (L) 12/02/2020 09:25 AM HGB - [facility] 12.6 (L) 05/22/2019 10:28 AM HGB - [facility] 14.2 04/01/2018 03:47 PM HGB - [facility] 13.5 (L) 04/26/2017 08:57 AM The above clinical lab tests were reviewed by me on 12/31/2022. IMPRESSIONS: Asymptomatic, 4.1 cm AAA (per [address] CT) <50% bilateral carotid stenosis per 2022 duplex Smoker. Lung CA. S/P radiation. COPD. YISSEL Obesity. Neuropathy. CAD. . DM. Dyslipidemia. Lipitor 80 mg HTN, stable PLAN: Patient was counseled on the pathophysiology and natural history of AAA Asymptomatic 4 cm AAA No significant change from 2020 PET Recommend annual imaging of his aneurysm. Discussed family screening (he and his have AAAs) as well as good BP control Continue routine surveillance Carotid duplex done for baseline due to stroke history indicated bilateral <50% carotid stenosis Continue daily 81 mg aspirin for atherosclerosis Continue 80 mg Lipitor for Pleiotropic effects of statins including improvement of endothelial dysfunction, increased nitric oxide bioavailability, antioxidant properties, inhibition of inflammatory responses, and stabilization of atherosclerotic plaques were discussed. RTC in 1 year with any provider at [facility] with an aortic duplex prior. Stacey Gomez PA-C Vascular and Endovascular Surgery [facility] The patient was seen and examined with Dr. Donna MD 4 cm AAA by duplex Similar to CT scan 2020 which was 4.1 cm Reassured patient and his Will see again in one year with repeat aortic duplex He would prefer to be seen at [facility] Cyril Thompson MD Section of Vascular [place] [address] [phone] * Kamini Garcia LPN - 12/31/2022 10:36 AM EDT PRE - ADMINISTRATION DOCUMENTATION Are you experiencing any cold symptoms or fever? No Have you had Guillain-[place] Syndrome (an illness that causes paralysis) within the last 6 weeks? No Have you had the flu shot in the past? YES Have you ever had a reaction to the flu shot? No Kamini Garcia LPN, 12/31/2022 10:36 AM Immunization Administration Documentation Time Out Procedure Performed: Yes Patient Identified (Ask Name/Date of ): Yes Does the patient have a fever greater than 101 degrees today? No Patient allergic to latex? No VFC Stock: Yes, Does this patient qualify for immunization through the VFC program because he/she (check only one): Yes-is enrolled in Medicaid Immunization(s) verified: Yes, Immunization Name: Flu, VIS Sheet(s) given: Yes Verified Side and Site: Yes Verified Shot(s) with Parent(s)/Patient: Yes documented in this encounter Plan of Treatment Upcoming Encounters Date Type Specialty Care Team Description 01/11/2023 Office Visit Cardiology Deisy Aguirre CRNP [address] [place] [address] 01/13/2023 Hospital Encounter Surgery Pb Alexander DO [address] [place] [address] 01/13/2023 Surgery Surgery Pb Alexander DO [address] [place] [address] L-/S-SPINE PARAVERTEBRAL FACET INJ, 1 LEVEL 01/15/2023 Office Visit Family Medicine Johnnie Newby MD [address] [place] [address] 02/11/2023 Office Visit Sleep Disorders Hui Bishop CRNP [address] [place] [address] 02/26/2023 [facility] [address] [facility] [place] [address] 07/08/2023 Imaging Radiology 07/13/2023 Office Visit Radiation Oncology Shawna Johnson MD [address] [facility] [place] [address] Scheduled Orders Name Type Priority Associated Diagnoses Orde r Schedule VASC AORTIC DUPLEX EVAL-COMPLETE Medical Imaging Routine Infrarenal abdominal aortic aneurysm (AAA) without rupture (HCC) Ordered: 12/31/2022 Scheduled Procedures Name Priority Associated Diagnoses Date/Ti [...] 05/01/2023 05/01/2022, 02/13/2022 CKD PHOS USE SMARTSET 70758 06/05/202305/20, 06/03/2021, 06/04/2020, Additional history exists GFR 06/17/2023 12/17/2022, 05/20, 12/02/2021, Additional history exists Diabetic Foot Exam 09/10/2023 09/09/2022, 1 , 11/12/2017, Additional history exists CKD HGB USE SMARTSET 32542 12/18/202312/17, 07/17/2021, 07/17/2021, Additional history exists DTaP,Tdap,and [...] this encounter Medical Devices Implanted Type Area Dietetic Aide Device Identifier Shelf Expiration Date Model / Serial / Lot Lens Intraoc 24.0 - [id number] - [id number] Implanted:Qty: 1 on 06/01/2017 by Nikhil Bolton MD at OR [facility] Left: Eye [employer] 07/17/2021 [id number] / [id number] / [id number] Lens Intraoc 24.0 - [id number] - [id number] Implanted:Qty: 1 on 06/08/2017 by Nikhil Bolton MD at OR [facility] Right: Eye [employer] 07/17/2021 [id number] / [id number] / [id number] documented as of this encounter Procedures Procedure Name Priority Date/Time Associated Diagnosis Comments VASC DUPLEX CAROTID BILAT Routine 12/31/2022 11:45 AM EDT Amaurosis fugax documented in this encounter Results * VASC DUPLEX CAROTID BILAT (12/31/2022 11:45 AM EDT) Anatomical Region Laterality Modality Neck, Vascular Ultrasound Narrative 12/31/2022 12:06 PM EDT VASCULAR LAB RESULTS DATE OF EXAM: 12/31/22 PRESENTING CONDITIONS: left eye AF PHYSICIAN REPORT Carotid Artery Duplex Examination Immediately before proceeding with the vascular lab procedure reported below, the identity of the patient, the correct exam and the correct procedural site were verified. Steele scale and color flow Doppler imaging was performed for evaluation of the right carotid artery. Duplex examination of the right carotid artery identifies atherosclerotic plaque at the carotid bifurcation. The plaque is echogenic, heterogeneous and appears to have an irregular surface. Color Doppler imaging was performed for evaluation of the right carotid bifurcation. Spectral analysis of the right internal carotid artery demonstrates peak systolic velocities of 97 cm/sec. Maximum end diastolic velocities are 35 cm/sec.. Peak right common carotid velocity is 80 cm/sec. The right internal carotid to common carotid ratio is 1.2. The right external carotid artery has a peak velocity of 129 centimeters per second. Steele scale and color flow Doppler imaging was performed for the evaluation of the left carotid artery. Duplex examination of the left carotid artery identifies atherosclerotic plaque at the carotid bifurcation. The plaque is heterogeneous and appears to have an irregular surface. Color Doppler imaging was performed for the evaluation of the left carotid bifurcation. Spectral analysis of the left internal carotid artery demonstrates peak systolic velocities of 137 cm/sec. Maximum end diastolic velocities are 45 cm/sec. Peak left common carotid velocity is 60 cm/sec. The left internal carotid to common carotid ratio is 2.3. The left external carotid artery has a peak velocity of 87 centimeters per second. The right vertebral artery demonstrates antegrade flow. The left vertebral artery demonstrates antegrade flow. Impression: Right carotid artery duplex examination indicates evidence of less than 50% stenosis of the internal carotid artery. Left carotid artery duplex examination indicates evidence of less than 50% stenosis of the internal carotid artery. 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 Care Teams Certified Control Systems Technician Relationship Specialty Start Date End Date Johnnie Newby MD [address] [place] [address] PCP - General Family Medicine 09/13/20 documented as of this encounter
--- OUTSIDE RECORDS SUMMARY | 2023-04-15 00:19 | External Medical Summary | Summary of Care ---
Author Name Unknown Organization [facility] Address [address] [place] [address] Phone [phone] Care Team Providers Care Cnc Supervisor Name Role Phone Johnnie Newby MD Primary Care Provider [phone] [phone] Encounter Details Date Type Department Care Team Description 12/31/2022 Hospital Encounter Vascular Lab [facility] [address] [place] [address] Arrived Allergies Active Allergy Reactions Severity Noted Date Comments Acetaminophen 05/06/2005 headaches documented as of this encounter (statuses as of 01/01/2023) Medications Medication Sig Dispensed Refills Start Date [...] A1c goal of less than 7.0% ([facility]) TEST ONCE DAILY 100 Strip 5 03/02/2018 Active Ventolin HFA 108 (90 Base) MCG/ACT Inhalation Aerosol SolutionIndications: COPD, moderate ([facility]) Take 2 Puffs by mouth 4 times [...] Hour (Imdur)Indications:C oronary artery disease involving [place] coronary artery without angina pectoris TAKE ONE [...] Information Patient not taking.Reported on 11/25/2022 Tiotropium [place] Monohydrate 18 MCG Inhalation Capsule (Spiriva) INHALE [...] group B, by GOLD 2017 classification ([facility]) INHALE TWO PUFFS BY MOUTH EVERY MORNING [...] group D, by GOLD 2017 classification ([facility]) TAKE ONE TABLET BY MOUTH EVERY MORNING [...] Release 24 Hour (toPROL XL)Indications:SVT (supraventricular tachycardia) ([facility]),NSVT (nonsustained ventricular tachycardia) ([facility]) TAKE ONE TABLET BY MOUTH EVERY DAY [...] as of this encounter (statuses as of 01/01/2023) Active Problems Problem Noted Date Gouty arthropathy [...] esophagitis 01/05/2014 Coronary artery disease invo lving [place] coronary artery of [place] heart without angina pectoris 11/27/2013 Tobacco abuse 11/27/2013 HTN, goal below 130/80 03/06/2009 Overview: Modified per HTN protocol #16. documented as of this encounter (statuses as of 01/01/2023) Resolved Problems Problem Noted Date Resolved Date [...] as of this encounter (statuses as of 01/01/2023) Immunizations Name Administration Dates Next Due COVID-19 [...] Visit Cardiology Deisy Aguirre CRNP [address] [place] [address] 01/13/2023 Hospital Encounter Surgery Pb Alexander DO [address] [place] [address] 01/13/2023 Surgery Surgery Pb Alexander DO [address] [place] [address] L-/S-SPINE PARAVERTEBRAL FACET INJ, 1 LEVEL 01/15/2023 Office Visit Family Medicine Johnnie Newby MD [address] [place] [address] 02/11/2023 Office Visit Sleep Disorders Hui Bishop CRNP [address] [place] [address] 02/26/2023 Office Visit Podiatry Bettye Herrmann DPM [address] [place] [address] 07/08/2023 Imaging Radiology 07/13/2023 Office Visit Radiation Oncology Shawna Johnson MD [address] [place] [address] Scheduled Procedures Name Priority Associated Diagnoses Date/Ti [...] 05/01/2023 05/01/2022, 02/13/2022 CKD PHOS USE SMARTSET 47535 06/05/202305/20, 06/03/2021, 06/04/2020, Additional history exists GFR 06/17/2023 12/17/2022, 05/20, 12/02/2021, Additional history exists Diabetic Foot Exam 09/10/2023 09/09/2022, 1 , 11/12/2017, Additional history exists CKD HGB USE SMARTSET 91495 12/18/202312/17, 07/17/2021, 07/17/2021, Additional history exists DTaP,Tdap,and [...] this encounter Medical Devices Implanted Type Area Operator Prefinish Device Identifier Shelf Expiration Date Model / Serial / Lot Lens Intraoc 24.0 - [id number] - [id number] Implanted:Qty: 1 on 06/01/2017 by Nikhil Bolton MD at OR [facility] Left: Eye BAUSCH [employer] LOMB 07/17/2021 [id number] / [id number] / [id number] Lens Intraoc 24.0 - [id number] - [id number] Implanted:Qty: 1 on 06/08/2017 by Nikhil Bolton MD at OR [facility] Right: Eye BAUSCH & LOMB 07/17/2021 [id number] / [id number] / [id number] documented as of this encounter Procedures Procedure Name Priority Date/Time Associated Diagnosis Comments VASC AORTIC DUPLEX EVAL-COMPLETE Routine 12/31/2022 10:08 AM EDT Infrarenal abdominal aortic aneurysm (AAA) without rupture (HCC) documented in this encounter Results * VASC AORTIC DUPLEX EVAL-COMPLETE (12/31/2022 10:08 AM EDT) Anatomical Region Laterality Modality Abdomen, Vascular Ultrasound Impressions 12/31/2022 11:47 AM EDT : There is evidence of a 4.0 cm abdominal aortic aneurysm. Color Doppler imaging demonstrates flow consistent with a patent lumen at and distal to the aortic aneurysm. Narrative 12/31/2022 11:47 AM EDT VASCULAR LAB RESULTS DATE OF EXAM: [...] left common iliac artery was not visualized. 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 Care Teams Cnc Supervisor Relationship Specialty Start Date End Date Johnnie Newby MD [address] [place] [address] PCP - General Family Medicine 09/13/20 documented as of this encounter
--- OUTSIDE RECORDS SUMMARY | 2023-04-15 00:19 | External Medical Summary | Summary of Care ---
Author Name Unknown Organization [facility] Address [address] [place] [address] Phone [phone] Care Team Providers Care Boilermaker [employer] Name Role Phone Johnnie Newby MD Primary Care Provider [phone] [phone] Encounter Details Date Type Department Care Team Description 12/31/2022 Hospital Encounter Vascular Lab [facility] [address] [place] [address] Arrived Allergies Active Allergy Reactions [...] goal of less than 7.0% ([facility]) TEST ONCE DAILY 100 Strip 5 03/02/2018 Active Ventolin HFA 108 (90 Base) MCG/ACT Inhalation Aerosol SolutionIndications: COPD, moderate ([facility]) Take 2 Puffs by mouth 4 times [...] 24 Hour (Imdur)Indications:C oronary artery disease involving [place] coronary artery without angina pectoris TAKE ONE [...] Information Patient not taking.Reported on 11/25/2022 Tiotropium [place] Monohydrate 18 MCG Inhalation Capsule (Spiriva) INHALE [...] B, by GOLD 2017 classification ([facility]) INHALE TWO PUFFS BY MOUTH EVERY MORNING [...] D, by GOLD 2017 classification ([facility]) TAKE ONE TABLET BY MOUTH EVERY MORNING [...] Hour (toPROL XL)Indications:SVT (supraventricular tachycardia) ([facility]),NSVT (nonsustained ventricular tachycardia) ([facility]) TAKE ONE TABLET BY MOUTH EVERY DAY [...] esophagitis 01/05/2014 Coronary artery disease invo lving tor[place] martinez coronary artery of tor[place] martinez heart without angina pectoris 11/27/2013 Tobacco abuse [...] Cardiology Deisy Aguirre CRNP [address] [place] [address] 01/13/2023 Hospital Encounter Surgery Pb Alexander DO [address] [place] [address] 01/13/2023 Surgery Surgery Pb Alexander DO [address] [place] [address] L-/S-SPINE PARAVERTEBRAL FACET INJ, 1 LEVEL 01/15/2023 Office Visit Family Medicine Johnnie Newby MD [address] [place] [address] 02/11/2023 Office Visit Sleep Disorders Hui Bishop CRNP [address] [place] [address] 02/26/2023 Office Visit Podiatry Bettye Herrmann DPM [address] [place] [address] 07/08/2023 Imaging Radiology 07/13/2023 Office Visit Radiation Oncology Shawna Johnson MD [address] [place] [address] Scheduled Procedures Name Priority Associated Diagnoses Date/Ti [...] 05/01/2023 05/01/2022, 02/13/2022 CKD PHOS USE SMARTSET 94062 06/05/202305/20, 06/03/2021, 06/04/2020, Additional history exists GFR 06/17/2023 12/17/2022, 05/20, 12/02/2021, Additional history exists Diabetic Foot Exam 09/10/2023 09/09/2022, 1 , 11/12/2017, Additional history exists CKD HGB USE SMARTSET 25912 12/18/202312/17, 07/17/2021, 07/17/2021, Additional history exists DTaP,Tdap,and [...] this encounter Medical Devices Implanted Type Area Aligner Barrel And Receiver Device Identifier Shelf Expiration Date Model / Serial / Lot Lens Intraoc 24.0 - [id number] - [id number] Implanted:Qty: 1 on 06/01/2017 by Nikhil Bolton MD at OR [facility] Left: Eye BAUSCH [employer] LOMB 07/17/2021 [id number] / [id number] / [id number] Lens Intraoc 24.0 - [id number] - [id number] Implanted:Qty: 1 on 06/08/2017 by Nikhil Bolton MD at OR [facility] Right: Eye BAUSCH [employer] LOMB 07/17/2021 [id number] / [id number] / [id number] documented as of this encounter Procedures Procedure Name Priority Date/Time Associated Diagnosis Comments [facility] DUPLEX CAROTID BILAT Routine 12/31/2022 11:45 AM [...] MD RAD VASCULAR documented in this encounter Advance Directives Documents on File Type Date Recorded 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 Care Teams [employer]il[employer] Relationship Specialty Start Date End Date Johnnie Newby MD [address] [place] [address] PCP - General Family Medicine 09/13/20 documented as of this encounter
--- OUTSIDE RECORDS SUMMARY | 2023-04-15 00:20 | External Medical Summary | Summary of Care ---
Author Name Unknown Organization [facility] Address [address] [place] [address] Phone [phone] Care Team Providers Care Environmental Health Nurse Name Role Phone Johnnie Newby MD Primary Care Provider [phone] Reason for Visit * Reason Onset Date Comments Med Request 12/22/2022 Encounter Details Date Type Department Care Team Description 12/22/2022 Telephone Family Practice [facility] [address] [facility] [place] [address] Johnnie Newby MD [address] [facility] [place] [address] Med Request Allergies Active Allergy Reactions Severity Noted Date Comments Acetaminophen 05/06/2005 headaches documented as of this encounter (statuses as of 12/23/2022) Medications Medication Sig Dispensed Refills Start Date [...] before bedtime. 90 Capsule 3 2 Active FLUoxetine HCl 20 MG Oral Capsule (PROzac) TAKE 3 CAPSULES BY MOUTH EVERY MORNING 270 Capsule 0 2 01/06/20 23 Active BiPAP every night at bedtime. 0 [...] 24 Hour (Imdur)Indications: Coronary artery disease involving [place] coronary artery without angina pectoris TAKE ONE [...] 45 Tablet 0 3 08/17/19 24 Active Additional Information Patient not taking.Reported on 11/25/2022 FLUoxetine HCl 20 MG Oral Capsule (PROzac) TAKE THREE CAPSULES BY MOUTH EVERY MORNING 270 Capsule 0 3 07/08/19 24 Active Additional Information Patient not taking.Reported on 11/25/2022 Tiotropium [place] Monohydrate 18 MCG Inhalation Capsule (Spiriva) INHALE ONE CAPSULE VIA HANDIHALER EVERY MORNING. DO NOT SWALLOW CAPSULE. 90 Capsule 3 3 06/26/19 24 Active Mirtazapine 15 MG Oral Tablet (Remeron) TAKE ONE-HALF TABLET (7.5 MG.) BY MOUTH EVERY NIGHT 45 Tablet 0 3 05/06/19 24 Active Additional Information Patient not taking.Reported on 11/25/2022 risperiDONE 0.25 MG Oral Tablet (RisperDAL) TAKE ONE TABLET BY MOUTH EVERY NIGHT AT BEDTIME 90 Tablet 0 3 05/06/19 24 Active Additional Information Patient not taking.Reported on 11/25/2022 Fluticasone-[place] rol 230-21 MCG/ACT Inhalation Aerosol (Advair)Indications :COPD, group B, by GOLD 2017 classification ([facility]) INHALE TWO PUFFS BY MOUTH EVERY MORNING AND INHALE TWO PUFFS BY MOUTH AT BEDTIME, RINSE MOUTH AFTER USE 36 g 3 2 04/17/20 23 Active FLUoxetine HCl 20 MG Oral Capsule (PROzac) TAKE THREE CAPSULES BY MOUTH EVERY MORNING 270 Capsule 0 2 04/03/20 23 Active Additional Information Patient not taking.Reported on 11/25/2022 busPIRone HCl 15 MG Oral Tablet (Buspar) TAKE ONE HALF TO ONE TABLET BY MOUTH THREE TIMES A DAY NEEDED FOR ANXIETY 90 Tablet 0 2 04/03/20 23 Active risperiDONE 0.25 MG Oral Tablet (RisperDAL) TAKE ONE TABLET BY MOUTH EVERY NIGHT AT BEDTIME 90 Tablet 0 2 01/30/20 23 Active Additional Information Patient not taking.Reported on 11/25/2022 FLUoxetine HCl 20 MG Oral Capsule (PROzac) take 3 caps by mouth every morning 270 Capsule 0 3 Active Additional Information Patient not taking.Reported on 11/25/2022 risperiDONE 0.5 MG Oral Tablet (RisperDAL) take 1 tablet by mouth every night at bedtime 90 Tablet 0 3 Active Additional Information Patient not taking.Reported on 11/25/2022 Mirtazapine 15 MG Oral Tablet (Remeron) take 1/2 tab (7.5mg) by mouth every night 45 Tablet 0 3 Active Additional Information Patient not taking.Reported on 11/25/2022 Roflumilast 500 MCG Oral Tablet (Daliresp)Indicatio ns:COPD, group D, by GOLD 2017 classification ([facility]) TAKE ONE TABLET BY MOUTH [...] Release 24 Hour (toPROL XL)Indications:SVT (supraventricular tachycardia) ([facility]),NSVT (nonsustained ventricular tachycardia) ([facility]) TAKE ONE TABLET BY MOUTH EVERY DAY 90 Tablet 3 3 12/09/19 24 Active Atorvastatin Calcium 80 MG Oral Tablet (Lipitor) TAKE ONE TABLET BY MOUTH AT BEDTIME 90 Tablet 1 3 12/09/19 24 Active busPIRone HCl 10 MG Oral Tablet (Buspar) take 1-2 tabs (10-20mg) by mouth twice a day prn for anxiety 90 Tablet 0 3 Active Vitron-C 65-125 MG Oral Tablet (Iron-Vitamin C 65-125 mg per tab) Take 1 Tablet by mouth in the morning. 0 Active Colchicine 0.6 MG Oral Tablet Take 2 tablets by mouth. One hour later, take 1 tablet by mouth. Take 1 tablet by mouth once daily after until symptoms resolve. 90 Tablet 3 3 Active Colchicine 0.6 MG Oral Tablet Take 2 tablets by mouth. One hour later, take 1 tablet by mouth. Take 1 tablet by mouth once daily after until symptoms resolve. 5 Tablet 0 3 12/24/19 23 Discontinu ed(Refill) Hospital, Clinic, or Other Facility [...] as of this encounter (statuses as of 12/23/2022) Active Problems Problem Noted Date Gouty arthropathy [...] long-term current use of insulin 08/02/2018 Old [facility] (myocardial infarction) 8 YISSEL treated with BiPAP 01/03/2018 Overview: Wears BiPAP at night Type 2 diabetes mellitus with hemoglobin A1c goal of less than 8.0% 10/23/2014 Overview: ICD-10 update of inactive term CVA, old, 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 PTSD (post-traumatic stress disorder) Gastroesophageal reflux disease without esophagitis 01/05/2014 Coronary artery disease invo lving [place] coronary artery of [place] heart without angina pectoris 11/27/2013 Tobacco abuse 11/27/2013 HTN, goal below 130/80 03/06/2009 Overview: Modified per HTN protocol #16. documented as of this encounter (statuses as of 12/23/2022) Resolved Problems Problem Noted Date Resolved Date [...] as of this encounter (statuses as of 12/23/2022) Immunizations Name Administration Dates Next Due COVID-19 [...] encounter Miscellaneous Notes * Telephone Encounter - Janine Eisenberg CPhT - 12/23/2022 10:24 AM EDT pt calling to check on status of colchicine. Advised script at pharmacy. Thank you, Janine Eisenberg CphT Membership Sales Manager III [facility] (formerly [facility]) 12/23/2022,10:24 AM * Telephone Encounter - YISSEL Fisher - 12/22/2022 4:27 PM EDT Pt calling in for a medication refill on Colchicine. Dr Herrmann is the prescriber of this medication but pt was told for further refills pt will need to contact PCP. Pt is looking to have this refilled documented in this encounter Plan of Treatment Upcoming Encounters Date Type Specialty Care Team Description 12/31/2022 Appointment Radiology 12/31/2022 Office Visit [facility] [address] [facility] [place] [address] 01/11/2023 Office Visit Cardiology Deisy Aguirre CRNP [address] [place] [address] 01/13/2023 Hospital Encounter Surgery Pb Alexander, DO [address] [place] [address] 01/13/2023 Surgery Surgery Pb Alexander, DO [address] [place] [address] L-/S-SPINE PARAVERTEBRAL FACET INJ, 1 LEVEL 01/15/2023 Office Visit Family Medicine Johnnie Newby MD [address] [place] [address] 02/11/2023 Office Visit Sleep Disorders Hui Bishop CRNP [address] [place] [address] 02/26/2023 Office Visit Podiatry Bettye Herrmann DPM [address] [place] [id number] 07/08/2023 Imaging Radiology 07/13/2023 Office Visit Radiation Oncology Shawna Johnson MD [address] [place] [address] [place] [address] Scheduled Procedures Name Priority [...] exists DISCUSS TOBACCO CESSATION (REFER TO SMARTSET #8392) 05/01/2023 05/01/2022, 02/13/2022 CKD PHOS USE SMARTSET 93075 06/05/202305/20, 06/03/2021, 06/04/2020, Additional history exists GFR 06/17/2023 12/17/2022, 05/20, 12/02/2021, Additional history exists Diabetic Foot Exam 09/10/2023 09/09/2022, 1 , 11/12/2017, Additional history exists CKD HGB USE SMARTSET 24851 12/18/202312/17, 07/17/2021, 07/17/2021, Additional history exists DTaP,Tdap,and [...] this encounter Medical Devices Implanted Type Area Automotive Accessory Installer Device Identifier Shelf Expiration Date Model / Serial / Lot Lens Intraoc 24.0 - [id number] - [id number] Implanted:Qty: 1 on 06/01/2017 by Nikhil Bolton MD at OR [facility] Left: Eye BAUSCH [employer] LOMB 07/17/2021 [id number] / [id number] / [id number] Lens Intraoc 24.0 - [id number] - [id number] Implanted:Qty: 1 on 06/08/2017 by Nikhil Bolton MD at OR [facility] Right: Eye BAUSCH & LOMB 07/17/2021 [id number] / [id number] / [id number] documented as of this encounter Advance Directives Documents on File Type Date Recorded 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 Care Teams Environmental Health Nurse Relationship Specialty Start Date End Date Johnnie Newby MD [address] [facility] [place] [address] PCP - General Family Medicine 09/13/20 documented as of this encounter
--- OUTSIDE RECORDS SUMMARY | 2023-04-15 00:20 | External Medical Summary | Summary of Care ---
Author Name Unknown Organization [facility] Address [address] [facility] [address] Phone [phone] Care Team Providers Care Metal Furniture Assembly Supervisor Name Role Phone Johnnie Newby MD Primary Care Provider [phone] Reason for Visit * Reason Comments Outpatient Testing Encounter Details Date Type Department Care Team Description 12/22/2022 Laboratory Laboratory [address] [place] [address] [place] [address] Anemia; Abnormal CBC Allergies Active Allergy Reactions Severity Noted Date Comments Acetaminophen 05/06/2005 headaches documented as of this encounter (statuses as of 12/22/2022) Medications Medication Sig Dispensed Refills Start Date [...] 24 Hour (Imdur)Indications:C oronary artery disease involving [place] coronary artery without angina pectoris TAKE ONE [...] Information Patient not taking.Reported on 11/25/2022 Tiotropium [place] Monohydrate 18 MCG Inhalation Capsule (Spiriva) INHALE [...] B, by GOLD 2017 classification ([facility]) INHALE TWO PUFFS BY MOUTH EVERY [...] s:COPD, group D, by GOLD 2017 classification ([facility]) TAKE ONE TABLET BY MOUTH EVERY MORNING [...] Release 24 Hour (toPROL XL)Indications:SVT (supraventricular tachycardia) ([facility]),NSVT (nonsustained ventricular tachycardia) ([facility]) TAKE ONE TABLET BY MOUTH EVERY DAY 90 Tablet 3 12/09/2022 4 Active Atorvastatin Calcium 80 MG Oral Tablet (Lipitor) TAKE ONE TABLET BY MOUTH AT BEDTIME 90 Tablet 1 12/09/2022 4 Active Colchicine 0.6 MG Oral Tablet Take 2 tablets by mouth. One hour later, take 1 tablet by mouth. Take 1 tablet by mouth once daily after until symptoms resolve. 5 Tablet 0 12/18/2022 Active Hospital, Clinic, or Other Facility Administered [...] as of this encounter (statuses as of 12/22/2022) Active Problems Problem Noted Date Overweight (BMI 25.0-29.9) 09/09/2022 History of cardioembolic [...] long-term current use of insulin 08/02/2018 Old [place] (myocardial infarction) 8 YISSEL treated with BiPAP 01/03/2018 Overview: Wears BiPAP at night Type 2 diabetes mellitus with hemoglobin A1c goal of less than 8.0% 10/23/2014 Overview: ICD-10 update of inactive term CVA, old, 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 PTSD (post-traumatic stress disorder) Gastroesophageal reflux disease without esophagitis 01/05/2014 Coronary artery disease invo lving [place] coronary artery of [place] heart without angina pectoris 11/27/2013 Tobacco abuse 11/27/2013 HTN, goal below 130/80 03/06/2009 Overview: Modified per HTN protocol #16. documented as of this encounter (statuses as of 12/22/2022) Resolved Problems Problem Noted Date Resolved Date [...] as of this encounter (statuses as of 12/22/2022) Immunizations Name Administration Dates Next Due COVID-19 mRNA, LNP-s, No Pre serve, 2-Dose Series ([employer]) 02/10/2022,07/13/2020,06/17/2020 Pneumococcal Conjugate Vacc, 13 Valent (Prevnar) [...] Vascular Surgery Cyril Thompson MD [address] [place] [address] 01/11/2023 Office Visit Cardiology Deisy Aguirre CRNP [address] [place] [address] 01/13/2023 Hospital Encounter Surgery Pb Alexander DO [address] [place] [address] 01/13/2023 Surgery Surgery Pb Alexander DO [address] [place] [address] L-/S-SPINE PARAVERTEBRAL FACET INJ, 1 LEVEL 01/15/2023 Office Visit Family Medicine Johnnie Newby MD [address] [place] [address] 02/11/2023 Office Visit Sleep Disorders Hui Bishop CRNP [address] [place] [address] 02/26/2023 Office Visit Podiatry Bettye Herrmann DPM [address] [facility] [place] [phone] 07/08/2023 Imaging Radiology 07/13/2023 Office Visit Radiation Oncology Shawna Johnson MD [address] [place] [address] [place] [address] Pending Results Name Type Priority Associated Diagnoses Date /Time SERUM PROTEIN ELECTROPHORESIS REFLEX PROFILE Lab Routine Anemia Abnormal CBC 12/22/2022 9:03 AM EDT Scheduled Procedures Name Priority Associated [...] 05/01/2023 05/01/2022, 02/13/2022 CKD PHOS USE SMARTSET 14422 06/05/202305/20, 06/03/2021, 06/04/2020, Additional history exists GFR 06/17/2023 12/17/2022, 05/20, 12/02/2021, Additional history exists DIABETES-FOOT EXAM 09/10/2023 09/09/2022, 1 , 11/12/2017, Additional history exists CKD HGB USE SMARTSET 32094 12/18/202312/17, 07/17/2021, 07/17/2021, Additional history exists DTaP,Tdap,and [...] encounter Medical Devices Implanted Type Area Manager Of Case Device Identifier Shelf Expiration Date Model / Serial / Lot Lens Intraoc 24.0 - [id number] - [id number] Implanted:Qty: 1 on 06/01/2017 by Nikhil Bolton MD at OR [facility] Left: Eye BAUSCH & LOMB 07/17/2021 [id number] / [id number] / [id number] Lens Intraoc 24.0 - [id number] - [id number] Implanted:Qty: 1 on 06/08/2017 by Nikhil Bolton MD at OR [facility] [address] Right: Eye BAUSCH & LOMB 07/17/2021 [id number] / [id number] / [id number] documented as of this encounter Visit Diagnoses Diagnosis Anemia Anemia, unspecified Abnormal CBC Other abnormal blood chemistry 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 radiculopathy Lumbosacral spondylosis without myelopathy documented in this encounter Advance Directives Documents on File Type Date Recorded 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 Care Teams Metal Furniture Assembly Supervisor Relationship Specialty Start Date End Date Johnnie Newby MD [address] [place] [address] PCP - General Family Medicine 09/13/20 documented as of this encounter
--- OUTSIDE RECORDS SUMMARY | 2023-04-15 00:20 | External Medical Summary | Summary of Care ---
Author Name Unknown Organization [facility] Address [address] [place] [address] Phone [phone] Care Team Providers Care Transporter Driver Name Role Phone Johnnie Newby MD Primary Care Provider [phone] [phone] Encounter Details Date Type Department Care Team Description 12/22/2022 Telephone Family Practice [facility] [address] [facility] [place] [address] Johnnie Newby MD [address] [facility] [place] [address] Allergies Active Allergy Reactions Severity Noted [...] hemoglobin A1c goal of less than 7.0% ([facility]) TEST ONCE DAILY 100 Strip 5 [...] 24 Hour (Imdur)Indications:C oronary artery disease involving [place] coronary artery without angina pectoris TAKE ONE [...] Information Patient not taking.Reported on 11/25/2022 Tiotropium [place] Monohydrate 18 MCG Inhalation Capsule (Spiriva) INHALE [...] COPD, group B, by GOLD 2017 classification ([facility]) INHALE TWO PUFFS BY MOUTH EVERY [...] s:COPD, group D, by GOLD 2017 classification ([facility]) TAKE ONE TABLET BY MOUTH EVERY [...] Release 24 Hour (toPROL XL)Indications:SVT (supraventricular tachycardia) ([facility]),NSVT (nonsustained ventricular tachycardia) ([facility]) TAKE ONE TABLET BY MOUTH EVERY [...] symptoms resolve. 5 Tablet 0 12/18/2022 Active busPIRone HCl 10 MG Oral Tablet (Buspar) take 1-2 tabs (10-20mg) by mouth twice a day prn for anxiety 90 Tablet 0 12/17/2022 Active Hospital, Clinic, or Other Facility Administered [...] long-term current use of insulin 08/02/2018 Old [place] (myocardial infarction) 8 YISSEL treated with BiPAP 01/03/2018 Overview: Wears BiPAP at night Type 2 diabetes mellitus with hemoglobin A1c goal of less than 8.0% 10/23/2014 Overview: ICD-10 update of inactive term CVA, old, 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 PTSD (post-traumatic stress disorder) Gastroesophageal reflux disease without esophagitis 01/05/2014 Coronary artery disease invo lving [place] coronary artery of [place] heart without angina pectoris 11/27/2013 Tobacco abuse [...] mRNA, LNP-s, No Pre serve, 2-Dose Series ([facility]) 02/10/2022,07/13/2020,06/17/2020 Pneumococcal Conjugate Vacc, 13 Valent (Prevnar) [...] encounter Miscellaneous Notes * Telephone Encounter - BONNY Castellano - 12/22/2022 1:12 PM EDT Patient was seen in our office by Dr. Herrmann, diagnosed with acute gout and given cholchicine 0.6mg, has improved symptoms. We recommend that PCP Dr. Newby take over for senior living medication and control for gout. documented in this encounter Plan of Treatment Upcoming Encounters Date Type Specialty Care Team Description 12/31/2022 Appointment Radiology 12/31/2022 Office Visit Vascular Surgery [facility]il Thompson [facility] [address] [facility] [address] 01/11/2023 Office Visit Cardiology Deisy Aguirre CRNP [address] [place] [address] 01/13/2023 Hospital Encounter Surgery Pb Alexander, DO [address] [place] [address] 01/13/2023 Surgery Surgery bP Alexander, [address] [place] [address] L-/S-SPINE PARAVERTEBRAL FACET INJ, 1 LEVEL 01/15/2023 Office Visit Family Medicine Johnnie Newby MD [address] [place] [address] 02/11/2023 Office Visit Sleep Disorders Hui Bishop CRNP [address] [place] [address] 02/26/2023 Office Visit Podiatry Bettye Herrmann DPM [address] [facility] [place] [address] 07/08/2023 Imaging Radiology 07/13/2023 Office Visit Radiation Oncology Shawna Johnson MD [address] [place] [address] [place] [address] Scheduled Procedures Name Priority Associated Diagnoses Date/Ti [...] 05/01/2023 05/01/2022, 02/13/2022 CKD PHOS USE SMARTSET 82260 06/05/202305/20, 06/03/2021, 06/04/2020, Additional history exists GFR 06/17/2023 12/17/2022, 05/20, 12/02/2021, Additional history exists DIABETES-FOOT EXAM 09/10/2023 09/09/2022, 1 , 11/12/2017, Additional history exists CKD HGB USE SMARTSET 48692 12/18/202312/17, 07/17/2021, 07/17/2021, Additional history exists DTaP,Tdap,and [...] this encounter Medical Devices Implanted Type Area Curtain Hemmer Automatic Device Identifier Shelf Expiration Date Model / Serial / Lot Lens Intraoc 24.0 - [id number] - [id number] Implanted:Qty: 1 on 06/01/2017 by Nikhil Bolton MD at OR [facility] Left: Eye BAUSCH & LOMB 07/17/2021 [id number] / [id number] / [id number] Lens Intraoc 24.0 - [id number] - [id number] Implanted:Qty: 1 on 06/08/2017 by Nikhil Bolton MD at OR [facility] Right: Eye BAUSCH & LOMB 07/17/2021 [id number] / [id number] / [id number] documented as of this encounter Advance Directives Documents on File Type Date Recorded 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 Care Teams Transporter Driver Relationship Specialty Start Date End Date Johnnie Newby MD [address] [place] [address] PCP - General Family Medicine 09/13/20 documented as of this encounter
--- OUTSIDE RECORDS SUMMARY | 2023-04-15 00:20 | External Medical Summary | Summary of Care ---
Author Name Unknown Organization [facility] Address [address] [place] [address] Phone [phone] Care Team Providers Care Printer Maintainer Name Role Phone Johnnie Newby MD Primary Care Provider [phone] [phone] Encounter Details Date Type Department Care Team Description 12/22/2022 Telephone Family Practice [facility] [address] [facility] [place] [address] Johnnie Newby MD [address] [place] [address] Allergies Active Allergy Reactions Severity Noted [...] hemoglobin A1c goal of less than 7.0% ([facility]) TEST ONCE DAILY 100 Strip 5 [...] 24 Hour (Imdur)Indications:C oronary artery disease involving [place] coronary artery without angina pectoris TAKE ONE [...] Information Patient not taking.Reported on 11/25/2022 Tiotropium [place] Monohydrate 18 MCG Inhalation Capsule (Spiriva) INHALE [...] COPD, group B, by GOLD 2017 classification ([facility]) INHALE TWO PUFFS BY MOUTH EVERY [...] s:COPD, group D, by GOLD 2017 classification ([facility]) TAKE ONE TABLET BY MOUTH EVERY [...] Release 24 Hour (toPROL XL)Indications:SVT (supraventricular tachycardia) ([facility]),NSVT (nonsustained ventricular tachycardia) ([facility]) TAKE ONE TABLET BY MOUTH EVERY [...] long-term current use of insulin 08/02/2018 Old [place] (myocardial infarction) 8 YISSEL treated with BiPAP 01/03/2018 Overview: Wears BiPAP at night Type 2 diabetes mellitus with hemoglobin A1c goal of less than 8.0% 10/23/2014 Overview: ICD-10 update of inactive term CVA, old, 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 PTSD (post-traumatic stress disorder) Gastroesophageal reflux disease without esophagitis 01/05/2014 Coronary artery disease invo lving [place] coronary artery of [place] heart without angina pectoris 11/27/2013 Tobacco abuse [...] mRNA, LNP-s, No Pre serve, 2-Dose Series ([employer]) 02/10/2022,07/13/2020,06/17/2020 Pneumococcal Conjugate Vacc, 13 Valent (Prevnar) [...] Vascular Surgery [facility]il Thompson MD [address] [facility] [address] 01/11/2023 Office Visit Cardiology Deisy Aguirre CRNP [address] [place] [address] 01/13/2023 Hospital Encounter Surgery Pb Alexander, DO [address] [place] [address] 01/13/2023 Surgery Surgery Pb Alexander, [address] [place] [address] L-/S-SPINE PARAVERTEBRAL FACET INJ, 1 LEVEL 01/15/2023 Office Visit Family Medicine Johnnie Newyb MD [address] [place] [address] 02/11/2023 Office Visit Sleep Disorders Hui Bishop CRNP [address] [place] [address] 02/26/2023 Office Visit Podiatry Bettye Herrmann DPM [address] [facility] [place] [address] 07/08/2023 Imaging Radiology 07/13/2023 Office Visit Radiation Oncology Shawna Johnson MD [address] [place] [address] [place] [address] Scheduled Procedures Name Priority Associated Diagnoses Date/Ti [...] 05/01/2023 05/01/2022, 02/13/2022 CKD PHOS USE SMARTSET 17476 06/05/202305/20, 06/03/2021, 06/04/2020, Additional history exists GFR 06/17/2023 12/17/2022, 05/20, 12/02/2021, Additional history exists DIABETES-FOOT EXAM 09/10/2023 09/09/2022, 1 , 11/12/2017, Additional history exists CKD HGB USE SMARTSET 55589 12/18/202312/17, 07/17/2021, 07/17/2021, Additional history exists DTaP,Tdap,and [...] this encounter Medical Devices Implanted Type Area Clinic Supervisor Device Identifier Shelf Expiration Date Model / Serial / Lot Lens Intraoc 24.0 - [id number] - [id number] Implanted:Qty: 1 on 06/01/2017 by Nikhil Bolton MD at OR [facility] Left: Eye BAUSCH & LOMB 07/17/2021 [id number] / [id number] / [id number] Lens Intraoc 24.0 - [id number] - [id number] Implanted:Qty: 1 on 06/08/2017 by Nikhil Bolton MD at OR [facility] Right: Eye BAUSCH & LOMB 07/17/2021 [id number] / [id number] / [id number] documented as of this encounter Advance Directives Documents on File Type Date Recorded Patient Senior Payroll Manager Expl 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 Care Teams Printer Maintainer Relationship Specialty Start Date End Date Johnnie Newby MD [address] [place] [address] PCP - General Family Medicine 09/13/20 documented as of this encounter
--- OUTSIDE RECORDS SUMMARY | 2023-04-15 00:20 | External Medical Summary | Summary of Care ---
Author Name Unknown Organization [facility] Address [address] [place] [address] Phone [phone] Care Team Providers Care Miniature Set Builder Name Role Phone Johnnie Newby MD Primary Care Provider [phone] [phone] Reason for Visit * Reason Onset Date Comments Test Results 12/22/2022 Encounter Details Date Type Department Care Team Description 12/22/2022 Telephone Cardiology, [facility] [address] [place] [address] Zack Brewer, PAAngelicaC [address] [facility] [place] [id number] Test Results Allergies Active Allergy Reactions Severity [...] 24 Hour (Imdur)Indications:C oronary artery disease involving [place] coronary artery without angina pectoris TAKE ONE [...] Information Patient not taking.Reported on 11/25/2022 Tiotropium [place] Monohydrate 18 MCG Inhalation Capsule (Spiriva) INHALE [...] Hour (toPROL XL)Indications:SVT (supraventricular tachycardia) ([facility]),NSVT (nonsustained ventricular tachycardia) ([facility] [...] by mouth in the morning. 0 Active Hospital, Clinic, or Other Facility Administered Medication Ordered Dose Route Frequency Start Date End Date Status albuterol sulfate (PROVENTIL) (2.5 MG/3ML) 0.083% inhalation solution 2.5 mgIndications:COPD, severe ([facility]) 2.5 mg NEBULIZER Q4H PRN 07/08/2018 Active Albuterol Sulfate (Proventil) (2.5 MG/3ML) 0.083% inhalation solution 2.5 mgIndications:COPD, moderate ([facility]) 2.5 mg NEBULIZER PRN 02/13/2022 02/13/2023 Active Albuterol Sulfate (Proventil) (5 MG/ML) 0.5% *conc* inhalation solution 2.5 mgIndications:COPD, moderate ([facility]) 2.5 mg NEBULIZER PRN 02/13/2022 02/13/2023 Active documented as of this encounter (statuses as of 12/22/2022) Active Problems Problem Noted Date Gouty arthropathy [...] esophagitis 01/05/2014 Coronary artery disease invo lving [place] coronary artery of augustine heart without angina pectoris 11/27/2013 Tobacco abuse [...] mRNA, LNP-s, No Pre serve, 2-Dose Series (Frequency) 02/10/2022,07/13/2020,06/17/2020 Pneumococcal Conjugate Vacc, 13 Valent (Prevnar) [...] Telephone Encounter - Manish Zee LPN - 12/22/2022 4:14 PM EDT Sent patient a eSellerProbinta message to make aware. FYI to Dr. Newby ----- Message from Zack Brewer PA-C sent at 12/22/2022 12:27 PM EDT ----- EPO elevated, probably due to iron deficiency anemia. Would also suggest follow- up with PCP (scheduled to be seen on January 15, 2023) as high EPO levels can also be due to bone marrow disorders * Telephone Encounter - Manish Zee LPN - 12/22/2022 8:07 AM EDT Sent patient a eSeller[employer]inta message to make aware. CBC ordered. Med list updated. ----- Message from Zack Brewer PA-C sent at 12/20/2022 10:11 AM EDT ----- Add Vitron C, one tablet daily Repeat CBC in about 2 weeks. documented in this encounter Plan of Treatment Upcoming Encounters Date Type Specialty Care Team Description 12/31/2022 Appointment Radiology 12/31/2022 Office Visit Vascular Surgery Cyril Thompson MD [address] [place] [address] [place] [address] 01/11/2023 Office Visit Cardiology Deisy Aguirre CRNP [address] [place] [address] 01/13/2023 Hospital Encounter Surgery Pb Alexandre, DO [address] [place] [address] 01/13/2023 Surgery Surgery Pb Alexander, DO [address] [place] [address] L-/S-SPINE PARAVERTEBRAL FACET INJ, 1 LEVEL 01/15/2023 Office Visit Family Medicine Johnnie Newby MD [address] [place] [address] 02/11/2023 Office Visit Sleep Disorders Hui Bishop CRNP [address] [place] [address] 02/26/2023 Office Visit Podiatry Bettye Herrmann, SAM[facility] [address] [place] [address] 07/08/2023 Imaging Radiology 07/13/2023 Office Visit Radiation Oncology Shawna Johnson MD [address] [place] [address] [place] [address] Scheduled Orders Name Type Priority Associated Diagnoses Orde r Schedule CBC Lab Routine Anemia Expected: 01/05/2023 (Approximate), Expi res: 12/23/2023 Scheduled Procedures Name Priority Associated Diagnoses Date/Ti [...] 05/01/2023 05/01/2022, 02/13/2022 CKD PHOS USE SMARTSET 09316 06/05/202305/20, 06/03/2021, 06/04/2020, Additional history exists GFR 06/17/2023 12/17/2022, 05/20, 12/02/2021, Additional history exists DIABETES-FOOT EXAM 09/10/2023 09/09/2022, 1 , 11/12/2017, Additional history exists CKD HGB USE SMARTSET 05881 12/18/202312/17, 07/17/2021, 07/17/2021, Additional history exists DTaP,Tdap,and [...] this encounter Medical Devices Implanted Type Area Cake Icer Device Identifier Shelf Expiration Date Model / Serial / Lot Lens Intraoc 24.0 - [id number] - [id number] Implanted:Qty: 1 on 06/01/2017 by Nikhil Bolton MD at OR [facility] Left: Eye BAUSCH & LOMB 07/17/2021 [id number] / [id number] / [id number] Lens Intraoc 24.0 - [id number] - [id number] Implanted:Qty: 1 on 06/08/2017 by Nikhil Bolton MD at OR [facility] Right: Eye BAUSCH & LOMB 07/17/2021 [id number] / [id number] / [id number] documented as of this encounter Visit Diagnoses Diagnosis Anemia- Primary Anemia, unspecified 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 radiculopathy Lumbosacral spondylosis without myelopathy documented in this encounter Advance Directives Documents on File Type Date Recorded 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 Care Teams Miniature Set Builder Relationship Specialty Start Date End Date Johnnie Newby MD [address] [place] [address] PCP - General Family Medicine 09/13/20 documented as of this encounter
--- OUTSIDE RECORDS SUMMARY | 2023-04-15 00:20 | External Medical Summary | Summary of Care ---
Author Name Unknown Organization [facility] Address [address] [place] [address] Phone [phone] Care Team Providers Care Ship'S Pilot Name Role Phone Johnnie Newby MD Primary Care Provider [phone] [phone] Reason for Visit * Reason Onset Date Comments Test Results 12/24/2022 Encounter Details Date Type Department Care Team Description 12/24/2022 Telephone Cardiology, [facility] [address] [place] [address] Zack Brewer, PA-C [address] [facility] [place] [phone] Test Results Allergies Active Allergy Reactions Severity [...] 24 Hour (Imdur)Indications:C oronary artery disease involving [place] coronary artery without angina pectoris TAKE [...] Information Patient not taking.Reported on 11/25/2022 Tiotropium [place] Monohydrate 18 MCG Inhalation Capsule (Spiriva) INHALE [...] esophagitis 01/05/2014 Coronary artery disease invo lving [place] coronary artery of [place] heart without angina pectoris 11/27/2013 Tobacco [...] mRNA, LNP-s, No Pre serve, 2-Dose Series ([employer]) 02/10/2022,07/13/2020,06/17/2020 Pneumococcal Conjugate Vacc, 13 Valent (Prevnar) [...] encounter Miscellaneous Notes * Telephone Encounter - Stephanie Cooney CMA [...] Vascular Surgery Cyril Thompson MD [address] [facility] [place] [address] 01/11/2023 Office Visit Cardiology Deisy Aguirre CRNP [address] [facility] [place] [address] 01/13/2023 Hospital Encounter Surgery Pb Alexander, DO [address] [place] [address] 01/13/2023 Surgery Surgery Pb Alexander, DO [address] [place] [address] L-/S-SPINE PARAVERTEBRAL FACET INJ, 1 LEVEL 01/15/2023 Office Visit Family Medicine Johnnie Newby MD [address] [place] [address] 02/11/2023 Office Visit Sleep Disorders Hui Bishop CRNP [address] [place] [address] 02/26/2023 Office Visit Podiatry Bettye Herrmann, DPLiat [address] [place] [address] [place] [address] 07/08/2023 Imaging Radiology 07/13/2023 Office Visit Radiation Oncology Shawna Johnson MD [address] [place] [address] [place] [address] Scheduled Procedures Name Priority Associated Diagnoses Date/Ti [...] exists DISCUSS TOBACCO CESSATION (REFER TO SMARTSET #3295) 05/01/2023 05/01/2022, 02/13/2022 CKD PHOS USE SMARTSET 73092 06/05/202305/20, 06/03/2021, 06/04/2020, Additional history exists GFR 06/17/2023 12/17/2022, 05/20, 12/02/2021, Additional history exists Diabetic Foot Exam 09/10/2023 09/09/2022, 1 , 11/12/2017, Additional history exists CKD HGB USE SMARTSET 64420 12/18/202312/17, 07/17/2021, 07/17/2021, Additional history exists DTaP,Tdap,and [...] this encounter Medical Devices Implanted Type Area Drink Box Mechanic Device Identifier Shelf Expiration Date Model / Serial / Lot Lens Intraoc 24.0 - [id number] - [id number] Implanted:Qty: 1 on 06/01/2017 by Nikhil Bolton MD at OR [facility] Left: Eye BAUSCH & LOMB 07/17/2021 [id number] / [id number] / [id number] Lens Intraoc 24.0 - [id number] - [id number] Implanted:Qty: 1 on 06/08/2017 by Nikhil Bolton MD at OR [facility] Right: Eye BAUSCH & LOMB 07/17/2021 [id number] / [id number] / [id number] documented as of this encounter Advance Directives Documents on File Type Date Recorded Patient Translator/Interpreter Expl 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 Care Teams Ship'S Pilot Relationship Specialty Start Date End Date Johnnie Newby MD [address] [place] [address] PCP - General Family Medicine 09/13/20 documented as of this encounter
--- OUTSIDE RECORDS SUMMARY | 2023-04-15 00:20 | External Medical Summary | Summary of Care ---
Author Name Unknown Organization [facility] Address [address] [facility] [place] [place] [place] [address] Phone [phone] Care Team Providers Care Floor Layer Tile Name Role Phone Johnnie Newby MD Primary Care Provider [phone] [phone] Reason for Visit * Reason Comments Outpatient Testing Encounter Details Date Type Department Care Team Description 12/23/2022 Laboratory Laboratory [address] [place] [address] , Specimen Drop Off [address] [place] [address] Anemia; Abnormal CBC [...] goal of less than 7.0% ([facility]) TEST ONCE DAILY 100 Strip [...] 24 Hour (Imdur)Indications:C oronary artery disease involving [place] coronary artery without angina pectoris TAKE [...] Information Patient not taking.Reported on 11/25/2022 Tiotropium [place] Monohydrate 18 MCG Inhalation Capsule (Spiriva) INHALE [...] B, by GOLD 2017 classification ([facility]) INHALE TWO PUFFS BY MOUTH [...] D, by GOLD 2017 classification ([facility]) TAKE ONE TABLET BY MOUTH [...] Hour (toPROL XL)Indications:SVT (supraventricular tachycardia) ([facility]),NSVT (nonsustained ventricular tachycardia) ([facility]) TAKE ONE TABLET BY MOUTH [...] MG/3ML) 0.083% inhalation solution 2.5 mgIndications:COPD, severe ([facility]) 2.5 mg NEBULIZER Q4H PRN [...] esophagitis 01/05/2014 Coronary artery disease invo lving [place] coronary artery of [place] heart without angina pectoris 11/27/2013 Tobacco [...] mRNA, LNP-s, No Pre serve, 2-Dose Series ([employer]) 02/10/2022,07/13/2020,06/17/2020 Pneumococcal Conjugate Vacc, 13 Valent (Prevnar) [...] Vascular Surgery Cyril Thompson MD [address] [facility] [place] [address] 01/11/2023 Office Visit Cardiology Deisy Aguirre CRNP [address] [place] [address] 01/13/2023 Hospital Encounter Surgery Pb Alexander, DO [address] [place] [address] 01/13/2023 Surgery Surgery Pb Alexander, DO [address] [place] [address] L-/S-SPINE PARAVERTEBRAL FACET INJ, 1 LEVEL 01/15/2023 Office Visit Family Medicine Johnnie Newby MD [address] [place] [address] 02/11/2023 Office Visit Sleep Disorders Hui Bishop CRNP [address] [place] [address] 02/26/2023 Office Visit Podiatry Bettye Herrmann DPM [address] [place] [address] 07/08/2023 Imaging Radiology 07/13/2023 Office Visit Radiation Oncology Shawna Johnson MD [address] [place] [address] [place] [address] Pending Results Name Type Priority Associated Diagnoses Date /Time FECAL OCCULT BLOOD, EIA Lab Routine Anemia Abnormal CBC 12/23/2022 11:56 AM EDT Scheduled Procedures Name Priority Associated [...] 12/03/2022 06/05/2022, 0809/2021, 06/03/2021, Additional history exists Influenza Vaccine (FLU shot) (#1) 2022 02/10/2022, 03/05/2021, 02/27/2020, Additional history exists COLONOSCOPY-ANNUAL AGES 18-100 03/05/2023 03/05/2022, 03/05/2022, 06/06/2019, Additional history exists O2 ASSESSMENT COMPLETED IN PAST YEAR FOR COPD 03/05/2023 03/05/2022 DIABETES-EYE EXAM 04/09/2023 04/09/2022, , 03/30/2020, Additional history exists DISCUSS TOBACCO CESSATION (REFER TO SMARTSET #3291) 05/01/2023 05/01/2022, 02/13/2022 CKD PHOS USE SMARTSET 86800 06/05/202305/20, 06/03/2021, 06/04/2020, Additional history exists GFR 06/17/2023 12/17/2022, 05/20, 12/02/2021, Additional history exists Diabetic Foot Exam 09/10/2023 09/09/2022, 1 , 11/12/2017, Additional history exists CKD HGB USE SMARTSET 63678 12/18/202312/17, 07/17/2021, 07/17/2021, Additional history exists DTaP,Tdap,and [...] this encounter Medical Devices Implanted Type Area Quilting Machine Operator Device Identifier Shelf Expiration Date Model / Serial / Lot Lens Intraoc 24.0 - [id number] - [id number] Implanted:Qty: 1 on 06/01/2017 by Nikhil Bolton MD at OR [facility] Left: Eye BAUSCH & LOMB 07/17/2021 [id number] / [id number] / [id number] Lens Intraoc 24.0 - [id number] - [id number] Implanted:Qty: 1 on 06/08/2017 by Nikhil Bolton MD at OR [facility] Right: Eye BAUSCH & LOMB 07/17/2021 [id number] / [id number] / [id number] documented as of this encounter Visit Diagnoses Diagnosis Anemia Anemia, unspecified Abnormal CBC Other abnormal blood chemistry 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 radiculopathy Lumbosacral spondylosis without myelopathy documented in this encounter Advance Directives Documents on File Type Date Recorded Patient Supervisor Hardboard Expl 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 Care Teams Floor Layer Tile Relationship Specialty Start Date End Date Johnnie Newby MD [address] [place] [address] PCP - General Family Medicine 09/13/20 documented as of this encounter
--- OUTSIDE RECORDS SUMMARY | 2023-04-15 00:20 | External Medical Summary | Summary of Care ---
Author Name Unknown Organization [facility] Address [address] [place] [address] Phone [phone] Care Team Providers Care Store Specialist Name Role Phone Johnnie Newby MD Primary Care Provider [phone] Encounter Details Date Type Department Care Team Description 12/22/2022 Telephone Family Practice [facility] [address] [facility] [place] [address] Johnnie Newby MD [address] [facility] [place] [address] Allergies Active Allergy Reactions Severity Noted [...] hemoglobin A1c goal of less than 7.0% ([facility]) TEST ONCE DAILY 100 Strip [...] 24 Hour (Imdur)Indications:C oronary artery disease involving nav[place] coronary artery without angina pectoris TAKE ONE [...] Information Patient not taking.Reported on 11/25/2022 Tiotropium [place] Monohydrate 18 MCG Inhalation Capsule (Spiriva) INHALE [...] COPD, group B, by GOLD 2017 classification ([facility]) INHALE TWO PUFFS BY MOUTH [...] s:COPD, group D, by GOLD 2017 classification ([facility]) TAKE ONE TABLET BY MOUTH [...] Release 24 Hour (toPROL XL)Indications:SVT (supraventricular tachycardia) ([facility]),NSVT (nonsustained ventricular tachycardia) ([facility]) TAKE ONE TABLET BY MOUTH [...] esophagitis 01/05/2014 Coronary artery disease invo lving navajo coronary artery of navajo heart without angina pectoris 11/27/2013 Tobacco abuse [...] encounter Miscellaneous Notes * Telephone Encounter - Johnnie Newby MD - 12/22/2022 2:37 PM EDT Noted. * Telephone Encounter - BONNY Castellano - 12/22/2022 1:12 PM EDT Patient was seen in our office by Dr. Herrmann, diagnosed with acute gout and given cholchicine 0.6mg, has improved symptoms. We recommend that PCP Dr. 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 documented in this encounter Plan of Treatment Upcoming Encounters Date Type Specialty Care Team Description 12/31/2022 Appointment Radiology 12/31/2022 Office Visit [facility]ascular [facility] [address] [facility] [address] 01/11/2023 Office Visit Cardiology Deisy Aguirre CRNP [address] [place] [address] 01/13/2023 Hospital Encounter Surgery Pb Alexander DO [address] [place] [address] 01/13/2023 Surgery Surgery Cousins, Pb Fermin, [address] [place] [address] L-/S-SPINE PARAVERTEBRAL FACET INJ, 1 LEVEL 01/15/2023 Office Visit Family Medicine Johnnie Newby MD [address] [place] [address] 02/11/2023 Office Visit Sleep Disorders Hui Bishop CRNP [address] [place] [address] 02/26/2023 Office Visit Podiatry Bettye Herrmann, DPM [address] [place] [address] 07/08/2023 Imaging Radiology 07/13/2023 Office Visit Radiation Oncology Shawna Johnson MD [address] [place] [address] [place] [address] Scheduled Procedures Name Priority Associated Diagnoses Date/Ti [...] 05/01/2023 05/01/2022, 02/13/2022 CKD PHOS USE SMARTSET 45149 06/05/202305/20, 06/03/2021, 06/04/2020, Additional history exists GFR 06/17/2023 12/17/2022, 05/20, 12/02/2021, Additional history exists DIABETES-FOOT EXAM 09/10/2023 09/09/2022, 1 , 11/12/2017, Additional history exists CKD HGB USE SMARTSET 97749 12/18/202312/17, 07/17/2021, 07/17/2021, Additional history exists DTaP,Tdap,and [...] this encounter Medical Devices Implanted Type Area Zinc Miner Blasting Device Identifier Shelf Expiration Date Model / Serial / Lot Lens Intraoc 24.0 - [id number] - [id number] Implanted:Qty: 1 on 06/01/2017 by Nikhil Bolton MD at OR [facility] Left: Eye BAUSCH & LOMB 07/17/2021 [id number] / [id number] / [id number] Lens Intraoc 24.0 - [id number] - [id number] Implanted:Qty: 1 on 06/08/2017 by Nikhil Bolton MD at OR [facility] Right: Eye BAUSCH & LOMB 07/17/2021 [id number] / [id number] / [id number] documented as of this encounter Advance Directives Documents on File Type Date Recorded Patient Central Office Supervisor Expl 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 Care Teams Store Specialist Relationship Specialty Start Date End Date Johnnie Newby MD [address] [place] [address] PCP - General Family Medicine 09/13/20 documented as of this encounter
--- OUTSIDE RECORDS SUMMARY | 2023-04-15 00:20 | External Medical Summary | Summary of Care ---
Author Name Unknown Organization [facility] Address [address] [place] [address] Phone [phone] Care Team Providers Care Client Development Consultant Name Role Phone Johnnie Newby MD Primary Care Provider [phone] Reason for Visit * Reason Onset Date Comments Med Request 12/22/2022 Encounter Details Date Type Department Care Team Description 12/22/2022 Telephone Family Practice [facility] [address] [facility] [place] [address] Johnnie Newby MD 132 [facility] [place] [address] Med Request Allergies Active [...] 24 Hour (Imdur)Indications: Coronary artery disease involving [place] coronary artery without angina pectoris TAKE ONE [...] Information Patient not taking.Reported on 11/25/2022 Tiotropium [place] Monohydrate 18 MCG Inhalation Capsule (Spiriva) INHALE [...] :COPD, group B, by GOLD 2017 classification ([facility]) INHALE TWO PUFFS BY MOUTH EVERY MORNING [...] ns:COPD, group D, by GOLD 2017 classification ([facility]) TAKE ONE TABLET BY MOUTH EVERY MORNING [...] Release 24 Hour (toPROL XL)Indications:SVT (supraventricular tachycardia) ([facility]),NSVT (nonsustained ventricular tachycardia) ([facility]) TAKE ONE TABLET BY MOUTH EVERY DAY [...] long-term current use of insulin 08/02/2018 Old NM (myocardial infarction) 8 YISSEL treated with BiPAP 01/03/2018 Overview: Wears BiPAP at night Type 2 diabetes mellitus with hemoglobin A1c goal of less than 8.0% 10/23/2014 Overview: ICD-10 update of inactive term CVA, old, 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 PTSD (post-traumatic stress disorder) Gastroesophageal reflux disease without esophagitis 01/05/2014 Coronary artery disease invo lving [place] coronary artery of lovelock heart without angina pectoris 11/27/2013 Tobacco abuse [...] at Date Recorded Male 08/02/2018 7:58 AM EDT Job Start Date Occupation Industry Not on file Not on file Not on file documented as of this encounter Miscellaneous Notes * Telephone Encounter - YISSEL Fisher - [...] Vascular Surgery [facility]yril Thompson MD [address] [facility] [place] [address] 01/11/2023 Office Visit Cardiology Deisy Aguirre CRNP [address] [place] [address] 01/13/2023 Hospital Encounter Surgery Pb Alexander, DO [address] [place] [address] 01/13/2023 Surgery Surgery Pb Alexander, DO [address] [place] [address] L-/S-SPINE PARAVERTEBRAL FACET INJ, 1 LEVEL 01/15/2023 Office Visit Family Medicine Johnnie Newby MD [address] [place] [address] 02/11/2023 Office Visit Sleep Disorders Hui Bishop CRNP [address] [place] [address] 02/26/2023 Office Visit Podiatry Bettye Herrmann, DPLiat [address] [facility] [place] [address] 07/08/2023 Imaging Radiology 07/13/2023 Office Visit Radiation Oncology Shawna Johnson MD [address] [place] [address] [place] [address] Scheduled Procedures Name Priority Associated Diagnoses Date/Ti [...] exists DISCUSS TOBACCO CESSATION (REFER TO SMARTSET #1486) 05/01/2023 05/01/2022, 02/13/2022 CKD PHOS USE SMARTSET 80529 06/05/202305/20, 06/03/2021, 06/04/2020, Additional history exists GFR 06/17/2023 12/17/2022, 05/20, 12/02/2021, Additional history exists Diabetic Foot Exam 09/10/2023 09/09/2022, 1 , 11/12/2017, Additional history exists CKD HGB USE SMARTSET 18804 12/18/202312/17, 07/17/2021, 07/17/2021, Additional history exists DTaP,Tdap,and [...] this encounter Medical Devices Implanted Type Area Supervisor Of Communications Device Identifier Shelf Expiration Date Model / Serial / Lot Lens Intraoc 24.0 - [id number] - [id number] Implanted:Qty: 1 on 06/01/2017 by Nikhil Bolton MD at OR [facility] Left: Eye BAUSCH & LOMB 07/17/2021 [id number] / [id number] / [id number] Lens Intraoc 24.0 - [id number] - [id number] Implanted:Qty: 1 on 06/08/2017 by Nikhil Bolton MD at OR [facility] Right: Eye BAUSCH [employer] LOMB 07/17/2021 [id number] / [id number] / [id number] documented as of this encounter Advance Directives Documents on File Type Date Recorded 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 Care Teams Client Development Consultant Relationship Specialty Start Date End Date Johnnie Newby MD [address] [place] [address] PCP - General Family Medicine 09/13/20 documented as of this encounter
--- OUTSIDE RECORDS SUMMARY | 2023-04-15 00:21 | External Medical Summary | Summary of Care ---
Author Name Unknown Organization [facility] Address [address] [place] [address] Phone [phone] Care Team Providers Care Finance Mgr Name Role Phone Johnnie Newby MD Primary Care Provider [phone] [phone] Reason for Visit * Reason Onset Date Comments Test Results 12/18/2022 Encounter Details Date Type Department Care Team Description 12/18/2022 Telephone Cardiology, [facility] [address] [facility] [place] [address] Zack Brewer, PAAngelicaC [address] [facility], [place] [id number] Test Results Allergies Active Allergy Reactions Severity Noted Date Comments Acetaminophen 05/06/2005 headaches documented as of this encounter (statuses as of 12/18/2022) Medications Medication Sig Dispensed Refills Start Date [...] 24 Hour (Imdur)Indications: Coronary artery disease involving [place] coronary artery without angina pectoris TAKE ONE [...] :COPD, group B, by GOLD 2017 classification ([facility]) INHALE TWO PUFFS BY MOUTH EVERY [...] ns:COPD, group D, by GOLD 2017 classification ([facility]) TAKE ONE TABLET BY MOUTH EVERY [...] Release 24 Hour (toPROL XL)Indications:SVT (supraventricular tachycardia) ([facility]),NSVT (nonsustained ventricular tachycardia) ([facility]) TAKE ONE TABLET BY MOUTH EVERY DAY 90 Tablet 3 3 12/09/19 24 Active Atorvastatin Calcium 80 MG Oral Tablet (Lipitor) TAKE ONE TABLET BY MOUTH AT BEDTIME 90 Tablet 1 3 12/09/19 24 Active Colchicine 0.6 MG Oral Tablet Take 2 tablets by mouth. One hour later, take 1 tablet by mouth. Take 1 tablet by mouth once daily after until symptoms resolve. 5 Tablet 0 3 Active [place]-3 Fatty Acids (FISH OIL) 1000 MG Capsule Take 1 Capsule by mouth in the morning. 0 12/19/19 23 Discontinu ed(Medicat ion List Clean Up) [...] as of this encounter (statuses as of 12/18/2022) Active Problems Problem Noted Date Overweight (BMI [...] esophagitis 01/05/2014 Coronary artery disease invo lving [place] coronary artery of huslia heart without angina pectoris 11/27/2013 Tobacco abuse 11/27/2013 HTN, goal below 130/80 03/06/2009 Overview: Modified per HTN protocol #16. documented as of this encounter (statuses as of 12/18/2022) Resolved Problems Problem Noted Date Resolved Date [...] as of this encounter (statuses as of 12/18/2022) Immunizations Name Administration Dates Next Due COVID-19 mRNA, LNP-s, No Pre serve, 2-Dose Series ([employer]) 02/10/2022,07/13/2020,06/17/2020 Pneumococcal Conjugate Vacc, 13 Valent (Prevnar) [...] Telephone Encounter - Manish Zee LPN - 12/18/2022 1:54 PM EDT Spoke with patient who verbalized understanding. Sent a MyChart so patient would have instructions written down. Patient is taking omeprazole daily. Medication list updated. Labs ordered. ----- Message from Zack Brewer PA-C sent at 12/18/2022 7:41 AM EDT ----- Chart reviewed. I have not seen this patient since [address] Gallagher, most recently evaluated by Dr. Montoya and prescribed Eliquis anticoagulation on 12/08/2022 Laboratory work shows moderate anemia of unknown acuity/chronicity Last available CBC was from June of 2021 Refer to the ER if signs/symptoms of active bleeding Discontinue fish oils Please make sure patient is taking omeprazole daily Check FOBT Check ferritin, iron screen, reticulocyte count, B12, folic acid, EPO, and SPEP Repeat CBC in 1 week documented in this encounter Plan of Treatment Upcoming Encounters Date Type Specialty Care Team Description 12/31/2022 Appointment Radiology 12/31/2022 Office Visit Vascular Surgery Cyril Thompson MD [address] [place] [address] 01/11/2023 Office Visit Cardiology Deisy Aguirre CRNP [address] [place] [address] 01/13/2023 Hospital Encounter Surgery Pb Alexander, DO [address] [place] [address] 01/13/2023 Surgery Surgery Pb Alexander Zander, DO [address] [place] [address] L-/S-SPINE PARAVERTEBRAL FACET INJ, 1 LEVEL 01/15/2023 Office Visit Family Medicine Johnnie Newby MD [address] [place] [address] 02/11/2023 Office Visit Sleep Disorders Hui Bishop CRNP [address] [place] [address] 02/26/2023 Office Visit Podiatry Bettye Herrmann DPM [address] [place] [address] [place] [id number] 07/08/2023 Imaging Radiology 07/13/2023 Office Visit Radiation Oncology Shawna Johnson MD [address] [place] [address] [place] [address] Pending Results Name Type Priority Associated Diagnoses Date /Time FERRITIN Lab Routine Anemia Abnormal CBC 12/17/2022 1:24 PM EDT IRON SCREEN, INCLUDING TIBC Lab Routine Anemia Abnormal CBC 12/17/2022 1:24 PM EDT RETICULOCYTE PANEL Lab Routine Anemia Abnormal CBC 12/17/2022 1:24 PM EDT VITAMIN B12 Lab Routine Anemia Abnormal CBC 12/17/2022 1:24 PM EDT FOLIC ACID Lab Routine Anemia Abnormal CBC 12/17/2022 1:24 PM EDT ERYTHROPOIETIN (EPO) Lab Routine Anemia Abnormal CBC 12/17/2022 1:24 PM EDT Scheduled Orders Name Type Priority Associated Diagnoses Orde r Schedule FECAL OCCULT BLOOD, EIA Lab Routine Anemia Abnormal CBC Expected: 12/19/2022 (Approximate), Expires: 12/19/2023 FERRITIN Lab Routine Anemia Abnormal CBC Expected: 12/18/2022 (Approximate), Expires: 12/19/2023 IRON SCREEN, INCLUDING TIBC Lab Routine Anemia Abnormal CBC Expected: 12/18/2022 (Approximate), Expires: 12/19/2023 RETICULOCYTE PANEL Lab Routine Anemia Abnormal CBC Expected: 12/18/2022 (Approximate), Expires: 12/19/2023 VITAMIN B12 Lab Routine Anemia Abnormal CBC Expected: 12/18/2022 (Approximate), Expires: 12/19/2023 FOLIC ACID Lab Routine Anemia Abnormal CBC Expected: 12/18/2022 (Approximate), Expires: 12/19/2023 ERYTHROPOIETIN (EPO) Lab Routine Anemia Abnormal CBC Expected: 12/18/2022 (Approximate), Expires: 12/19/2023 SERUM PROTEIN ELECTROPHORESIS REFLEX PROFILE Lab Routine Anemia Abnormal CBC Expected: 12/18/2022 (Approximate), Expires: 12/19/2023 CBC Lab Routine Anemia Abnormal CBC Expected: 12/25/2022 (Approximate), Expires: 12/19/2023 Scheduled Procedures Name Priority Associated Diagnoses Date/Ti [...] 05/01/2023 05/01/2022, 02/13/2022 CKD PHOS USE SMARTSET 35975 06/05/202305/20, 06/03/2021, 06/04/2020, Additional history exists GFR 06/17/2023 12/17/2022, 05/20, 12/02/2021, Additional history exists DIABETES-FOOT EXAM 09/10/2023 09/09/2022, 1 , 11/12/2017, Additional history exists CKD HGB USE SMARTSET 92007 12/18/202312/17, 07/17/2021, 07/17/2021, Additional history exists DTaP,Tdap,and [...] this encounter Medical Devices Implanted Type Area Associate Store Leader Device Identifier Shelf Expiration Date Model / Serial / Lot Lens Intraoc 24.0 - [id number] - [id number] Implanted:Qty: 1 on 06/01/2017 by Nikhil Bolton MD at OR [facility] Left: Eye BAUSCH & LOMB 07/17/2021 [id number] / [id number] / [id number] Lens Intraoc 24.0 - [id number] - [id number] Implanted:Qty: 1 on 06/08/2017 by Nikhil Bolton MD at OR [facility] Right: Eye BAUSCH & LOMB 07/17/2021 [id number] / [id number] / [id number] documented as of this encounter Visit Diagnoses Diagnosis Anemia- Primary Anemia, unspecified Abnormal CBC Other abnormal blood chemistry 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 radiculopathy Lumbosacral spondylosis without myelopathy documented in this encounter Advance Directives Documents on File Type Date Recorded 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 Care Teams Finance Mgr Relationship Specialty Start Date End Date Johnnie Newby MD [address] [facility] [place] [address] PCP - General Family Medicine 09/13/20 documented as of this encounter
--- OUTSIDE RECORDS SUMMARY | 2023-04-15 00:21 | External Medical Summary | Summary of Care ---
Author Name Unknown Organization [facility] Address [address] [place] [address] Phone [phone] Care Team Providers Care Customs Entry Writer Name Role Phone Johnnie Newby MD Primary Care Provider [phone] Reason for Visit * Reason Onset Date Comments Test Results 12/18/2022 Lab/X-ray Encounter Details Date Type Department Care Team Description 12/18/2022 Telephone Podiatry [facility] [address] [facility] [place] [address] Bettye Herrmann, DPM [address] [place] [address] Test Results (Lab/X-ray ) Allergies Active Allergy Reactions Severity Noted Date Comments Acetaminophen 05/06/2005 headaches documented as of this encounter (statuses as of 12/18/2022) Medications Medication Sig Dispensed Refills Start Date End Date Status DAILY MULTIVITAMIN PO TABS with lycopene 0 Active BUSPAR 15 MG PO TABS Take by mouth. 0 Active [place]-3 Fatty Acids (FISH OIL) 1000 MG Capsule Take 1 Capsule by mouth in the morning. 0 Active clonazePAM (KLONOPIN) 0.5 MG Tablet [...] goal of less than 7.0% ([facility]) TEST ONCE DAILY 100 Strip 5 03/02/2018 Active Ventolin HFA 108 (90 Base) MCG/ACT Inhalation Aerosol SolutionIndications: COPD, moderate ([facility]) Take 2 Puffs by mouth 4 times [...] 24 Hour (Imdur)Indications:C oronary artery disease involving [place] coronary artery without angina pectoris TAKE ONE [...] Information Patient not taking.Reported on 11/25/2022 Tiotropium [place] Monohydrate 18 MCG Inhalation Capsule (Spiriva) INHALE [...] B, by GOLD 2017 classification ([facility]) INHALE TWO PUFFS BY MOUTH EVERY MORNING [...] D, by GOLD 2017 classification ([facility]) TAKE ONE TABLET BY MOUTH EVERY MORNING [...] Hour (toPROL XL)Indications:SVT (supraventricular tachycardia) ([facility]),NSVT (nonsustained ventricular tachycardia) ([facility]) TAKE ONE TABLET BY MOUTH EVERY DAY [...] long-term current use of insulin 08/02/2018 Old [place] (myocardial infarction) 8 YISSEL treated [...] esophagitis 01/05/2014 Coronary artery disease invo lving [place] coronary artery of [place] heart without angina pectoris 11/27/2013 Tobacco abuse [...] encounter Miscellaneous Notes * Telephone Encounter - MOSHE Liang - 12/18/2022 8:37 AM EDT Called and relayed Dr. Herrmann's message Pt voiced understanding Pt stated he is having a different problem on the opposite foot and would like to be evaluated for this Advised to take med as prescribed and if symptoms continue to schedule a follow up with MOSHE Khan * Telephone Encounter - Bettye Herrmann DPM - 12/18/2022 8:31 AM EDT Could you let Mr Don know x-ray was fine but uric acid (lab) was elevating indicating gout. I prescribe Colchicine, which is a short term medication to Patricia. If he continues to have flares, we should contact primary care for longterm treatment. Thanks! documented in this encounter Plan of Treatment Upcoming Encounters Date Type Specialty Care Team Description 12/31/2022 Appointment Radiology 12/31/2022 Office Visit Vascular Surgery Cyril Thompson MD [address] [place] [address] 01/11/2023 Office Visit Cardiology Deisy Aguirre CRNP [address] [place] [address] 01/13/2023 Hospital Encounter Surgery Pb Alexander Zander, DO [address] [place] [address] 01/13/2023 Surgery Surgery KylerlamicheletPb Zander, DO [address] [place] [address] L-/S-SPINE PARAVERTEBRAL FACET INJ, 1 LEVEL 01/15/2023 Office Visit Family Medicine Johnnie Newby MD [address] [place] [address] 02/11/2023 Office Visit Sleep Disorders Hui Bishop CRNP [address] [place] [address] 02/26/2023 Office Visit Podiatry Bettye Herrmann, DPM [address] [facility] [place] [address] 07/08/2023 Imaging Radiology 07/13/2023 Office Visit Radiation Oncology Shawna Johnson MD [address] [place] [address] [place] [address] Scheduled Procedures Name Priority Associated Diagnoses Date/Ti [...] 05/01/2023 05/01/2022, 02/13/2022 CKD PHOS USE SMARTSET 34691 06/05/202305/20, 06/03/2021, 06/04/2020, Additional history exists GFR 06/17/2023 12/17/2022, 05/20, 12/02/2021, Additional history exists DIABETES-FOOT EXAM 09/10/2023 09/09/2022, 1 , 11/12/2017, Additional history exists CKD HGB USE SMARTSET 53810 12/18/202312/17, 07/17/2021, 07/17/2021, Additional history exists DTaP,Tdap,and [...] this encounter Medical Devices Implanted Type Area Vmware Consultant Device Identifier Shelf Expiration Date Model / Serial / Lot Lens Intraoc 24.0 - [id number] - [id number] Implanted:Qty: 1 on 06/01/2017 by Nikhil Bolton MD at OR [facility] Left: Eye BAUSCH & LOMB 07/17/2021 [id number] / [id number] / [id number] Lens Intraoc 24.0 - [id number] - [id number] Implanted:Qty: 1 on 06/08/2017 by Nikhil Bolton MD at OR [facility] Right: Eye BAUSCH & LOMB 07/17/2021 [id number] / [id number] / [id number] documented as of this encounter Advance Directives Documents on File Type Date Recorded Patient Nursing Service Director Expl 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 Care Teams Customs Entry Writer Relationship Specialty Start Date End Date Johnnie Newby MD [address] [place] [address] PCP - General Family Medicine 09/13/20 documented as of this encounter
--- OUTSIDE RECORDS SUMMARY | 2023-04-15 00:21 | External Medical Summary | Summary of Care ---
Author Name Unknown Organization [facility] Address [address] [place] [address] Phone [phone] Care Team Providers Care Pattern Perforating Machine Operator Name Role Phone Johnnie Newby MD Primary Care Provider [phone] [phone] Encounter Details Date Type Department Care Team Description 12/22/2022 Orders Only Outcomes Research Department [address] [place] [address] Nora Garza CHRA MyCode Research Other*[id number] Allergies Active Allergy Reactions Severity Noted Date [...] 24 Hour (Imdur)Indications:C oronary artery disease involving [place] coronary artery without angina pectoris TAKE ONE [...] Information Patient not taking.Reported on 11/25/2022 Tiotropium [place] Monohydrate 18 MCG Inhalation Capsule (Spiriva) INHALE [...] Release 24 Hour (toPROL XL)Indications:SVT (supraventricular tachycardia) ([facility]),NSVT (nonsustained ventricular tachycardia) ([facility]) TAKE ONE TABLET [...] long-term current use of insulin 08/02/2018 Old MD (myocardial infarction) 8 YISSEL treated [...] esophagitis 01/05/2014 Coronary artery disease invo lving [place] coronary artery of [place] heart without angina pectoris 11/27/2013 Tobacco abuse [...] mRNA, LNP-s, No Pre serve, 2-Dose Series (Collactive) 02/10/2022,07/13/2020,06/17/2020 Pneumococcal Conjugate Vacc, 13 Valent (Prevnar) [...] Vascular Surgery Cyril Thompson MD [address] [facility] [place] [id number] 01/11/2023 Office Visit Cardiology Deisy Aguirre CRNP [address] [place] [address] 01/13/2023 Hospital Encounter Surgery Pb Alexander, DO [address] [place] [address] 01/13/2023 Surgery Surgery Pb Alexander, DO [address] [place] [address] L-/S-SPINE PARAVERTEBRAL FACET INJ, 1 LEVEL 01/15/2023 Office Visit Family Medicine Johnnie Newby MD [address] [place] [address] 02/11/2023 Office Visit Sleep Disorders Hui Bishop CRNP [address] [place] [address] 02/26/2023 Office Visit Podiatry Bettye Herrmann DPM [address] [place] [place] [address] 07/08/2023 Imaging Radiology 07/13/2023 Office Visit Radiation Oncology Shawna Johnson MD [address] [place] [address] [place] [address] Scheduled Orders Name Type Priority Associated Diagnoses Orde r Schedule MYCODE SUBSEQUENT ADULT Lab Routine MyCode Research Other*[id number] Every 6 Months for 2 Occurrences starting 12/22/2022 until 01/11/2024 Scheduled Procedures Name Priority Associated Diagnoses Date/Ti [...] exists DISCUSS TOBACCO CESSATION (REFER TO SMARTSET #8521) 05/01/2023 05/01/2022, 02/13/2022 CKD PHOS USE SMARTSET 24058 06/05/202305/20, 06/03/2021, 06/04/2020, Additional history exists GFR 06/17/2023 12/17/2022, 05/20, 12/02/2021, Additional history exists DIABETES-FOOT EXAM 09/10/2023 09/09/2022, 1 , 11/12/2017, Additional history exists CKD HGB USE SMARTSET 95713 12/18/202312/17, 07/17/2021, 07/17/2021, Additional history exists DTaP,Tdap,and [...] this encounter Medical Devices Implanted Type Area Hcc Coders Device Identifier Shelf Expiration Date Model / Serial / Lot Lens Intraoc 24.0 - [id number] - [id number] Implanted:Qty: 1 on 06/01/2017 by Nikhil Bolton MD at OR [facility] Left: Eye [employer]OMB 07/17/2021 [id number] / [id number] / [id number] Lens Intraoc 24.0 - [id number] - [id number] Implanted:Qty: 1 on 06/08/2017 by Nikhil Bolton MD at OR [facility] Right: Eye BAUSCH [employer] LOMB 07/17/2021 [id number] / [id number] / [id number] documented as of this encounter Visit Diagnoses Diagnosis MyCode Research Other*[id number] 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 radiculopathy Lumbosacral spondylosis without myelopathy documented in this encounter Advance Directives Documents on File Type Date Recorded Patient Gun Tester Expl anation Advance Directives and Yu fine [...] and were consensually agreed upon. Care Teams Pattern Perforating Machine Operator Relationship Specialty Start Date End Date Johnnie Newby MD [address] [place] [address] PCP - General Family Medicine 09/13/20 documented as of this encounter
--- OUTSIDE RECORDS SUMMARY | 2023-04-15 00:21 | External Medical Summary | Summary of Care ---
Author Name Unknown Organization [facility] Address [address] [place] [address] Phone [phone] Care Team Providers Care Cane Flume Feeding Machine Operator Name Role Phone Johnnie Newby MD Primary Care Provider [phone] Reason for Visit * Reason Comments Diabetic Foot Care Encounter Details Date Type Department Care Team Description 12/17/2022 Office Visit Podiatry [facility] [address] [place] [address] Bettye Herrmann, DPM [address] [place] [address] Right foot pain*; Type 2 diabetes mellitus with diabetic neuropathy, without long-term current use of insulin (HCC); Pre-ulcerative calluses; Onychomycosis Allergies Active Allergy Reactions Severity Noted Date Comments Acetaminophen 05/06/2005 headaches documented as of this encounter (statuses as of 12/17/2022) Medications Medication Sig Dispensed Refills Start Date End Date Status DAILY MULTIVITAMIN PO TABS with lycopene 0 Active BUSPAR 15 MG PO TABS Take by mouth. 0 Active [place]-3 Fatty Acids (FISH OIL) 1000 MG Capsule [...] Inhalation Aerosol SolutionIndications: COPD, moderate ([facility]) Take 2 Puffs by mouth 4 [...] 24 Hour (Imdur)Indications:C oronary artery disease involving [place] coronary artery without angina pectoris TAKE [...] Information Patient not taking.Reported on 11/25/2022 Tiotropium [place] Monohydrate 18 MCG Inhalation Capsule (Spiriva) INHALE [...] busPIRone HCl 15 MG Oral Tablet (Buspar) take 1/2 - 1 tab by mouth three times a day as needed for anxiety 90 Tablet 0 11/16/2022 Active FLUoxetine HCl 20 MG Oral Capsule [...] Hour (toPROL XL)Indications:SVT (supraventricular tachycardia) ([facility]),NSVT (nonsustained ventricular tachycardia) ([facility]) TAKE ONE TABLET BY MOUTH EVERY DAY 90 Tablet 3 12/09/2022 4 Active Atorvastatin Calcium 80 MG Oral Tablet (Lipitor) TAKE ONE TABLET BY MOUTH AT BEDTIME 90 Tablet 1 12/09/2022 4 Active Hospital, Clinic, or Other Facility [...] as of this encounter (statuses as of 12/17/2022) Active Problems Problem Noted Date Overweight (BMI [...] long-term current use of insulin 08/02/2018 Old [place] (myocardial infarction) 8 YISSEL treated [...] esophagitis 01/05/2014 Coronary artery disease invo lving [place] coronary artery of [place] heart without angina pectoris 11/27/2013 Tobacco abuse 11/27/2013 HTN, goal below 130/80 03/06/2009 Overview: Modified per HTN protocol #16. documented as of this encounter (statuses as of 12/17/2022) Resolved Problems Problem Noted Date Resolved Date [...] as of this encounter (statuses as of 12/17/2022) Immunizations Name Administration Dates Next Due COVID-19 mRNA, LNP-s, No Pre serve, 2-Dose Series ([employer]) 02/10/2022,07/13/2020,06/17/2020 Pneumococcal Conjugate Vacc, 13 Valent (Prevnar) [...] of this encounter Progress Notes * Bettye Herrmann, DPM - 12/17/2022 9:00 AM EDT Podiatry Established Note [facility] Name: Walter Don : 1945 Date: 12/17/2022 REASON FOR VISIT: foot care SUBJECTIVE: This patient is a 77 year old male who presents today for diabetic foot care. He has chronic callosities to both feet which are very tender. He also has fungal nails of which he cannot reach and trim himself. He also had a recent left foot MRI given level of pain to the great toe. Givenlack of findings, we tried a steroid injection on 11/05/22. He brings a nail with him and states it feels as if this nail is being driving into the toe. He does not feel this helped. He now also complains of acute right foot pain. This started a few weeks ago in the middle of the night. Pain starts at the midfoot and radiates towards toes. Pain is noted with rest and walking. He has significant swelling of this foot. He denies a past history of gout or injury but reports his brother has gout. Last PCP appt with Dr. Newby was 09/09/2022. Past Medical History: Diagnosis Date Asthma Benign [...] to be determined Lung cancer ([facility]) Obesity, Class I, BMI 30.0-34.9 (see actual BMI) 06/04/2021 Obesity, Class II, BMI 35-39.9, isolated (see actual BMI) 12/02/2021 OTHER diabetes Overweight (BMI 25.0-29.9) 09/09/2022 Sleep apnea, obstructive Type 2 diabetes mellitus with hemoglobin A1c goal of less than 8.0% ([facility]) 10/23/2014 ICD-10 update of inactive term ALLERGIES: Review of patient's allergies indicates: Allergen Reactions Tylenol [Acetaminophen] headaches REVIEW OF SYSTEMS: CONSTITUTIONAL: No fatigue and No fevers, sweats, or chills EXTREMITIES: Positive for pain left first toe and right foot FOCUSED PODIATRIC EXAM: Vascular: Pedal pulses palpable [...] bilaterally at the level of the toenail/spicule. Most significant pain is to the left first toenail, medial spicule. Painis now also reported with palpation of the right dorsal foot midfoot. Dermatological: Skin is thin, dry. No interdigital [...] spontaneous sensations in the feet) DIAGNOSTIC STUDIES: Pending ASSESSMENT: 1. Right foot pain 2. Type 2 diabetes mellitus with diabetic neuropathy, without long-term current use of insulin (HCC) 3. Pre-ulcerative calluses x5 4. Onychomycosis T1 T2 T3 T4 T5 T6 T7 T8 T9 PLAN: Procedure: After prepping the area with alcohol and allowing to dry, the hyperkeratotic lesions to the plantarfoot and first toe (5 total) were sharply pared of all hyperkeratotic skin. This was performed witha #15 blade. An electrical umbrella bur was used to reduce any remaining edges. Pin point bleeding was noted to the left first toe. I applied bacitracin and dry bandage. Procedure: After mild cleansing and drying of feet, toenails 1-5 right and 2-5 left were manually and mechanically debrided. A nail splitter was used to remove all incurvating edges. A rubber cutter and shape carver was used to trim nail to appropriate length. An electrical bur was used in a side to side motion to reduce nail thickness, hypertrophic growth, and to smooth all edges. Patient tolerated well. I discussed 2nd opinion for his toe as I feel this is the callus and deformity related. I placed order for uric acid in suspicion of gout. Once that lab result is in, we will contact him with results and consider Rx steroid or colchicine if appropriate. I ordered a right foot x-ray. He did not have time to wait to have this done. He may have this at his convenience. Follow up: 3 months foot care documented in this encounter Nursing Notes * Willie Porter LPN - 12/17/2022 9:04 AM EDT Pt presents for routine diabetic nail care, states has bilateral foot pain, varies from a 2-9/10 ifhe is walking or not. documented in this encounter Miscellaneous Notes * Addendum Note - Willie Porter LPN - 12/17/2022 10:21 AM EDTAddended by: WILLIE PORTER on: 12/17/2022 10:21 AM Modules accepted: Orders documented in this encounter Plan of Treatment Upcoming Encounters Date Type Specialty Care Team Description 12/31/2022 Appointment Radiology 12/31/2022 Office Visit Vascular Surgery Cyril Thompson MD [address] [facility] [place] [address] 01/11/2023 Office Visit Cardiology Deisy Aguirre CRNP [address] [place] [address] 01/13/2023 Hospital Encounter Surgery Pb Aleaxnder, DO [address] [place] [address] 01/13/2023 Surgery Surgery Pb Alexander, DO [address] [place] [address] L-/S-SPINE PARAVERTEBRAL FACET INJ, 1 LEVEL 01/15/2023 Office Visit Family Medicine Johnnie Newby MD [address] [place] [address] 02/11/2023 Office Visit Sleep Disorders Hui Bishop CRNP [address] [place] [address] 02/26/2023 Office Visit Podiatry Bettye Herrmann DPM [address] [place] [address] 07/08/2023 Imaging Radiology 07/13/2023 Office Visit Radiation Oncology Shawna Johnson MD [address] [place] [address] [place] [address] Scheduled Orders Name Type Priority Associated Diagnoses Orde r Schedule URIC ACID Lab Routine Right foot pain Expected: 12/17/2022, Expires: 12/18/2023 XR FOOT 3 OR MORE VIEWS Medical Imaging Routine Right foot pain Expected: 12/24/2022, Expires: 01/17/2024 Scheduled Procedures Name Priority Associated Diagnoses Date/Ti [...] 06/04/202206/04/2 022, 04/04/2018, 11/10/2016, Additional history exists CKD HGB USE SMARTSET 69450 07/17/202207/17, 07/17/2021, 12/02/2020, Additional history exists GFR 12/03/2022 06/05/2022, 11/17, 07/17/2021, Additional history exists HbA1c 12/03/2022 06/05/2022, 11/17, [...] 05/01/2023 05/01/2022, 02/13/2022 CKD PHOS USE SMARTSET 70250 06/05/202305/20, 06/03/2021, 06/04/2020, Additional history exists DIABETES-FOOT EXAM 09/10/2023 09/09/2022, [...] this encounter Medical Devices Implanted Type Area Pipeliner Device Identifier Shelf Expiration Date Model / Serial / Lot Lens Intraoc 24.0 - [id number] - [id number] Implanted:Qty: 1 on 06/01/2017 by Nikhil Bolton MD at OR [facility] Left: Eye [employer]OM[employer] 07/17/2021 [id number] / [id number] / [id number] Lens Intraoc 24.0 - [id number] - [id number] Implanted:Qty: 1 on 06/08/2017 by Nikhil Bolton MD at OR [facility] Right: Eye [employer]CH [employer] LOMB 07/17/2021 [id number] / [id number] / [id number] documented as of this encounter Visit Diagnoses Diagnosis Right foot pain- Primary Pain in limb Type 2 diabetes mellitus with diabetic neuropathy, without long-term current use of insulin (HCC) Pre-ulcerative calluses Corns and callosities Onychomycosis Dermatophytosis of nail 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 radiculopathy Lumbosacral spondylosis without myelopathy documented in this encounter Advance Directives Documents on File Type Date Recorded Patient Pipe Buffer Expl 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 Care Teams Cane Flume Feeding Machine Operator Relationship Specialty Start Date End Date Johnnie Newby MD [address] [place] [address] PCP - General Family Medicine 09/13/20 documented as of this encounter
--- OUTSIDE RECORDS SUMMARY | 2023-04-15 00:21 | External Medical Summary | Summary of Care ---
Author Name Unknown Organization [facility] Address [address] [place] [address] Phone [phone] Care Team Providers Care Customer Support Agent Name Role Phone Johnnie Newby MD Primary Care Provider [phone] Encounter Details Date Type Department Care Team Description 12/18/2022 Telephone Podiatry [facility] [address] [place] [address] Bettye Herrmann, SAMM [address] [place] [address] Allergies Active Allergy Reactions Severity Noted Date [...] 24 Hour (Imdur)Indications:C oronary artery disease involving [place] coronary artery without [...] Information Patient not taking.Reported on 11/25/2022 Tiotropium [place] Monohydrate 18 MCG Inhalation Capsule (Spiriva) INHALE [...] Release 24 Hour (toPROL XL)Indications:SVT (supraventricular tachycardia) ([facility]),NSVT (nonsustained ventricular tachycardia) (HCC) TAKE ONE TABLET [...] long-term current use of insulin 08/02/[address] (myocardial infarction) 8 YISSEL treated [...] mRNA, LNP-s, No Pre serve, 2-Dose Series ([employer]) 02/10/2022,07/13/2020,06/17/2020 Pneumococcal Conjugate Vacc, 13 Valent (Prevnar) [...] Vascular Surgery Cyril Thompson MD [address] [facility] [place] [address] 01/11/2023 Office Visit Cardiology Deisy Aguirre CRNP [address] [place] [address] 01/13/2023 Hospital Encounter Surgery Pb Alexander DO [address] [place] [address] 01/13/2023 Surgery Surgery Pb Alexander DO [address] [place] [address] L-/S-SPINE PARAVERTEBRAL FACET INJ, 1 LEVEL 01/15/2023 Office Visit Family Medicine Johnnie Newby MD [address] [place] [address] 02/11/2023 Office Visit Sleep Disorders Hui Bishop CRNP [address] [place] [address] 02/26/2023 Office Visit [facility]iatry [facility] [address] [facility] [id number] 07/08/2023 Imaging Radiology 07/13/2023 Office Visit Radiation Oncology Shawna Johnson MD [address] [place] [address] [place] [address] Scheduled Procedures Name Priority [...] 05/01/2023 05/01/2022, 02/13/2022 CKD PHOS USE SMARTSET 87166 06/05/202305/20, 06/03/2021, 06/04/2020, Additional history exists GFR 06/17/2023 12/17/2022, 05/20, 12/02/2021, Additional history exists DIABETES-FOOT EXAM 09/10/2023 09/09/2022, 1 , 11/12/2017, Additional history exists CKD HGB USE SMARTSET 72879 12/18/202312/17, 07/17/2021, 07/17/2021, Additional history exists DTaP,Tdap,and [...] this encounter Medical Devices Implanted Type Area Materials Management Supervisor Device Identifier Shelf Expiration Date Model / Serial / Lot Lens Intraoc 24.0 - [id number] - [id number] Implanted:Qty: 1 on 06/01/2017 by Nikhil Bolton MD at OR [facility] Left: Eye [employer]OMB 07/17/2021 [id number] / [id number] / [id number] Lens Intraoc 24.0 - [id number] - [id number] Implanted:Qty: 1 on 06/08/2017 by Nikhil Bolton MD at OR [facility] Right: Eye [employer] LOMB 07/17/2021 [id number] / [id number] / [id number] documented as of this encounter Advance Directives Documents on File Type Date Recorded Patient Steward/Stewardess Lounge Expl anation Advance Directives and Yu fine [...] were consensually agreed upon. Care Teams Customer Support Agent Relationship Specialty Start Date End Date Johnnie Newby MD [address] [place] [address] PCP - General Family Medicine 09/13/20 documented as of this encounter
--- OUTSIDE RECORDS SUMMARY | 2023-04-15 00:21 | External Medical Summary | Summary of Care ---
Author Name Unknown Organization [facility] Address [address] [place] [address] Phone [phone] Care Team Providers Care Audio Visual Coordinator Name Role Phone Johnnie Newby MD Primary Care Provider [phone] Reason for Visit * Reason Onset Date Comments Test Results 12/19/2022 Unexpected or In determinate Result Encounter Details Date Type Department Care Team Description 12/19/2022 Telephone Laboratory, [place] [address] [place] [address] Bettye Herrmann, DPLiat [address] [place] [address] Test Results (Unexpected or Indeterminate ... Allergies Active Allergy Reactions Severity Noted Date Comments Acetaminophen 05/06/2005 headaches documented as of this encounter (statuses as of 12/19/2022) Medications Medication Sig Dispensed Refills Start Date [...] 24 Hour (Imdur)Indications:C oronary artery disease involving [place] coronary artery without angina pectoris TAKE ONE [...] Information Patient not taking.Reported on 11/25/2022 Tiotropium [place] Monohydrate 18 MCG Inhalation Capsule (Spiriva) INHALE [...] 24 Hour (toPROL XL)Indications:SVT (supraventricular tachycardia) ([facility]),NSVT (nonsustained ventricular tachycardia) ([facility]) [...] as of this encounter (statuses as of 12/19/2022) Active Problems Problem Noted Date Overweight (BMI [...] esophagitis 01/05/2014 Coronary artery disease invo lving [place] coronary artery of [place] heart without angina pectoris 11/27/2013 Tobacco abuse 11/27/2013 HTN, goal below 130/80 03/06/2009 Overview: Modified per HTN protocol #16. documented as of this encounter (statuses as of 12/19/2022) Resolved Problems Problem Noted Date Resolved Date [...] as of this encounter (statuses as of 12/19/2022) Immunizations Name Administration Dates Next Due COVID-19 mRNA, LNP-s, No Pre serve, 2-Dose Series ([employer]) 02/10/2022,07/13/2020,06/17/2020 Pneumococcal Conjugate Vacc, 13 Valent (Prevnar) [...] Miscellaneous Notes * Telephone Encounter - YISSEL Kenney - 12/19/2022 9:38 PM EDT Josi- The radiologist discovered an unexpected or indeterminate finding on Walter Don ([id number]) andasks that you review the following report. Study Type:XR FOOT 3 OR MORE VIEWS Date of Study: 12/17/2022 IMPRESSION Sclerosis with focal lucency within the navicular bone could be related to stress fracture Please respond to this encounter to acknowledge receipt of this message and take responsibility to ensure this report is reviewed. Thank you, YISSEL Kenney Client Service [facility] documented in this encounter Plan of Treatment Upcoming Encounters Date Type Specialty Care Team Description 12/31/2022 Appointment Radiology 12/31/2022 Office Visit Vascular Surgery Cyril Thompson MD [address] [place] [address] 01/11/2023 Office Visit Cardiology Deisy Aguirre CRNP [address] [place] [address] 01/13/2023 Hospital Encounter Surgery Pb Alexander DO [address] [place] [address] 01/13/2023 Surgery Surgery Pb Alexander DO [address] [place] [address] L-/S-SPINE PARAVERTEBRAL FACET INJ, 1 LEVEL 01/15/2023 Office Visit Family Medicine Johnnie Newby MD [address] [place] [address] 02/11/2023 Office Visit Sleep Disorders Hui Bishop CRNP [address] [place] [address] 02/26/2023 Office Visit Podiatry Bettye Herrmann DPM [address] [place] [phone] 07/08/2023 Imaging Radiology 07/13/2023 Office Visit Radiation Oncology Shawna Johnson MD [address] [place] [address] [place] [address] Scheduled Procedures Name Priority Associated Diagnoses Date/Ti [...] 05/01/2023 05/01/2022, 02/13/2022 CKD PHOS USE SMARTSET 43308 06/05/202305/20, 06/03/2021, 06/04/2020, Additional history exists GFR 06/17/2023 12/17/2022, 05/20, 12/02/2021, Additional history exists DIABETES-FOOT EXAM 09/10/2023 09/09/2022, 1 , 11/12/2017, Additional history exists CKD HGB USE SMARTSET 02556 12/18/202312/17, 07/17/2021, 07/17/2021, Additional history exists DTaP,Tdap,and [...] this encounter Medical Devices Implanted Type Area Receptionist Telephone Operator Device Identifier Shelf Expiration Date Model / Serial / Lot Lens Intraoc 24.0 - [id number] - [id number] Implanted:Qty: 1 on 06/01/2017 by Nikhil Bolton MD at OR [facility] Left: Eye [employer]CH [employer] LOMB 07/17/2021 [id number] / [id number] / [id number] Lens Intraoc 24.0 - [id number] - [id number] Implanted:Qty: 1 on 06/08/2017 by Nikhil Bolton MD at OR [facility] Right: Eye [employer]CH [employer]OMB 07/17/2021 [id number] / [id number] / [id number] documented as of this encounter Advance Directives Documents on File Type Date Recorded Patient Forge Press Operator Expl 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 Care Teams Audio Visual Coordinator Relationship Specialty Start Date End Date Johnnie Newby MD [address] [place] [address] PCP - General Family Medicine 09/13/20 documented as of this encounter
--- OUTSIDE RECORDS SUMMARY | 2023-04-15 00:21 | External Medical Summary ---
Author Name Unknown Address Unknown Organization K01:[facility] [place] [address] [place] [address] Laboratory Report Ordering Provider Test Date Status ALEX MARIE 12/22/2022 09:03:45 Final Observation Date Value Abnormality Reference (Units) Status Immunofixation for Serum or Plasma 12/22/2022 09:03:45 No monoclonal gammopathy detected. Final Performing Location [facility] [address] [place] [address]
--- OUTSIDE RECORDS SUMMARY | 2023-04-15 00:21 | External Medical Summary | Summary of Care ---
Author Name Unknown Organization [facility] Address [address] [place] [address] Phone [phone] Care Team Providers Care Filter Washer Name Role Phone Johnnie Newby MD Primary Care Provider [phone] Reason for Visit * Reason Onset Date Comments Test Results 12/19/2022 Unexpected or In determinate Result Encounter Details Date Type Department Care Team Description 12/19/2022 Telephone Laboratory, [place] [address] [place] [address] Bettye Herrmann, DPLiat [address] [place] [address] Test Results (Unexpected or Indeterminate ... Allergies Active Allergy Reactions Severity Noted Date Comments Acetaminophen 05/06/2005 headaches documented as of this encounter (statuses as of 12/21/2022) Medications Medication Sig Dispensed Refills Start Date [...] 24 Hour (Imdur)Indications:C oronary artery disease involving [place] coronary artery without angina pectoris TAKE ONE [...] Information Patient not taking.Reported on 11/25/2022 Tiotropium [place] Monohydrate 18 MCG Inhalation Capsule (Spiriva) INHALE [...] COPD, group B, by GOLD 2017 classification (CONWAY [...] s:COPD, group D, by GOLD 2017 classification (CONWAY [...] as of this encounter (statuses as of 12/21/2022) Active Problems Problem Noted Date Overweight (BMI [...] long-term current use of insulin 08/02/2018 Old [place] (myocardial infarction) 8 YISSEL treated with BiPAP 01/03/2018 Overview: Wears BiPAP at night Type 2 diabetes mellitus with hemoglobin A1c goal of less than 8.0% 10/23/2014 Overview: ICD-10 update of inactive term CVA, old, 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 PTSD (post-traumatic stress disorder) Gastroesophageal reflux disease without esophagitis 01/05/2014 Coronary artery disease invo lving [place] coronary artery of [place] heart without angina pectoris 11/27/2013 Tobacco abuse 11/27/2013 HTN, goal below 130/80 03/06/2009 Overview: Modified per HTN protocol #16. documented as of this encounter (statuses as of 12/21/2022) Resolved Problems Problem Noted Date Resolved Date [...] as of this encounter (statuses as of 12/21/2022) Immunizations Name Administration Dates Next Due COVID-19 mRNA, LNP-s, No Pre serve, 2-Dose Series (Lakoo) 02/10/2022,07/13/2020,06/17/2020 Pneumococcal Conjugate Vacc, 13 Valent (Prevnar) [...] unexpected or indeterminate finding on Walter Don ([id number]) andasks that you review the following report. Study Type:XR FOOT 3 OR MORE VIEWS Date of Study: 12/17/2022 IMPRESSION Sclerosis with focal lucency within the navicular bone could be related to stress fracture Please respond to this encounter to acknowledge receipt of this message and take responsibility to ensure this report is reviewed. Thank you, YISSEL Kenney Client Service [facility] documented in this encounter Plan of Treatment Upcoming Encounters Date Type Specialty Care Team Description 12/31/2022 Appointment Radiology 12/31/2022 Office Visit Vascular Surgery Cyril Thompson MD [address] [place] [address] 01/11/2023 Office Visit Cardiology Deisy Aguirre CRNP [address] [place] [address] 01/13/2023 Hospital Encounter Surgery Pb Alexander DO [address] [place] [address] 01/13/2023 Surgery Surgery bP Alexander DO [address] [place] [address] L-/S-SPINE PARAVERTEBRAL FACET INJ, 1 LEVEL 01/15/2023 Office Visit Family Medicine Johnnie Newby MD [address] [place] [address] 02/11/2023 Office Visit Sleep Disorders Hui Bishop CRNP [address] [place] [address] 02/26/2023 Office Visit Podiatry Bettye Herrmann DPM [address] [place] [phone] 07/08/2023 Imaging Radiology 07/13/2023 Office Visit Radiation Oncology Shawna Johnson MD [address] [place] [address] [place] [address] Scheduled Procedures Name Priority Associated Diagnoses Date/Ti [...] 05/01/2023 05/01/2022, 02/13/2022 CKD PHOS USE SMARTSET 48856 06/05/202305/20, 06/03/2021, 06/04/2020, Additional history exists GFR 06/17/2023 12/17/2022, 05/20, 12/02/2021, Additional history exists DIABETES-FOOT EXAM 09/10/2023 09/09/2022, 1 , 11/12/2017, Additional history exists CKD HGB USE SMARTSET 37462 12/18/202312/17, 07/17/2021, 07/17/2021, Additional history exists DTaP,Tdap,and [...] this encounter Medical Devices Implanted Type Area Cook Frozen Dessert Device Identifier Shelf Expiration Date Model / Serial / Lot Lens Intraoc 24.0 - [id number] - [id number] Implanted:Qty: 1 on 06/01/2017 by Nikhil Bolton MD at OR [facility] Left: Eye BAUSCH [employer] LOMB 07/17/2021 [id number] / [id number] / [id number] Lens Intraoc 24.0 - [id number] - [id number] Implanted:Qty: 1 on 06/08/2017 by Nikhil Bolton MD at OR [facility] Right: Eye BAUSCH & LOMB 07/17/2021 [id number] / [id number] / [id number] documented as of this encounter Advance Directives Documents on File Type Date Recorded 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 Care Teams Filter Washer Relationship Specialty Start Date End Date Johnnie Newby MD [address] [place] [address] PCP - General Family Medicine 09/13/20 documented as of this encounter
--- OUTSIDE RECORDS SUMMARY | 2023-04-15 00:21 | External Medical Summary | Summary of Care ---
Author Name Unknown Organization [facility] Address [address] [place] [address] Phone [phone] Care Team Providers Care Pulling Machine Operator Name Role Phone Johnnie Newby MD Primary Care Provider [phone] Reason for Visit * Reason Comments Diabetic Foot Care Encounter Details Date Type Department Care Team Description 12/17/2022 Office Visit Podiatry [facility] [address] [place] [address] Bettye Herrmann, DPM [address] [place] [address] Right foot pain*; Type 2 [...] PO TABS Take by mouth. 0 Active [place]-3 Fatty Acids (FISH OIL) 1000 MG Capsule [...] Base) MCG/ACT Inhalation Aerosol SolutionIndications: COPD, moderate ([facility]) Take 2 Puffs by mouth [...] Information Patient not taking.Reported on 11/25/2022 Tiotropium [place] Monohydrate 18 MCG Inhalation Capsule (Spiriva) INHALE [...] Release 24 Hour (toPROL XL)Indications:SVT (supraventricular tachycardia) ([facility]),NSVT (nonsustained ventricular tachycardia) ([facility]) [...] long-term current use of insulin 08/02/2018 Old [place] (myocardial infarction) 8 YISSEL treated with BiPAP 01/03/2018 Overview: Wears BiPAP at night Type 2 diabetes mellitus with hemoglobin A1c goal of less than 8.0% 10/23/2014 Overview: ICD-10 update of inactive term CVA, old, 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 PTSD (post-traumatic stress disorder) Gastroesophageal reflux disease without esophagitis 01/05/2014 Coronary artery disease invo lving [place] [...] mRNA, LNP-s, No Pre serve, 2-Dose Series (Curex.Co) 02/10/2022,07/13/2020,06/17/2020 Pneumococcal Conjugate Vacc, 13 Valent (Prevnar) [...] 12/17/2022 9:00 AM EDT Podiatry Established Note [facility] Name: Walter Don : 1945 Date: 12/17/2022 [...] HTN, goal to be determined Lung cancer ([facility]) Obesity, Class I, BMI 30.0-34.9 (see actual BMI) 06/04/2021 Obesity, Class II, BMI 35-39.9, isolated (see actual BMI) 12/02/2021 OTHER diabetes Overweight (BMI 25.0-29.9) 09/09/2022 Sleep apnea, obstructive Type 2 diabetes mellitus with hemoglobin A1c goal of less than 8.0% ([facility]) 10/23/2014 ICD-10 update of inactive [...] used to remove all incurvating edges. A seat nailer was used to trim nail to appropriate [...] Vascular Surgery Cyril Thompson MD [address] [facility] [place] [address] 01/11/2023 Office Visit Cardiology Deisy Aguirre CRNP [address] [place] [address] 01/13/2023 Hospital Encounter Surgery Pb Alexander, DO [address] [place] [address] 01/13/2023 Surgery Surgery Pb Alexander, DO [address] [place] [address] L-/S-SPINE PARAVERTEBRAL FACET INJ, 1 LEVEL 01/15/2023 Office Visit Family Medicine Johnnie Newby MD [address] [place] [address] 02/11/2023 Office Visit Sleep Disorders Hui Bishop CRNP [address] [place] [address] 02/26/2023 Office Visit Podiatry Bettye Herrmann DPM [address] [place] [address] 07/08/2023 Imaging Radiology 07/13/2023 Office Visit Radiation Oncology Shawna Johnson MD [address] [place] [address] [place] [address] Scheduled Orders Name Type Priority Associated Diagnoses [...] Additional history exists CKD HGB USE SMARTSET 18452 07/17/202207/17, 07/17/2021, 12/02/2020, Additional history exists GFR [...] 05/01/2023 05/01/2022, 02/13/2022 CKD PHOS USE SMARTSET 24051 06/05/202305/20, 06/03/2021, 06/04/2020, Additional history exists DIABETES-FOOT [...] this encounter Medical Devices Implanted Type Area Hacksaw Inspector Device Identifier Shelf Expiration Date Model / Serial / Lot Lens Intraoc 24.0 - [id number] - [id number] Implanted:Qty: 1 on 06/01/2017 by Nikhil Bolton MD at OR [facility] Left: Eye BAUSCH [employer] LOMB 07/17/2021 [id number] / [id number] / [id number] Lens Intraoc 24.0 - [id number] - [id number] Implanted:Qty: 1 on 06/08/2017 by Nikhil Bolton MD at OR [facility] Right: Eye BAUSCH & LOMB 07/17/2021 [id number] / [id number] / [id number] documented as of this encounter Visit Diagnoses Diagnosis Right foot pain- Primary Pain in limb Type 2 diabetes mellitus with diabetic neuropathy, without long-term current use of insulin (HCC) Pre-ulcerative calluses Corns and callosities Onychomycosis Dermatophytosis of nail 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 radiculopathy Lumbosacral spondylosis without myelopathy documented in this encounter Advance Directives Documents on File Type Date Recorded 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 Care Teams Pulling Machine Operator Relationship Specialty Start Date End Date Johnnie Newby MD [address] [place] [address] PCP - General Family Medicine 09/13/20 documented as of this encounter
--- OUTSIDE RECORDS SUMMARY | 2023-04-15 00:21 | External Medical Summary | Summary of Care ---
Author Name Unknown Organization [facility] Address [address] [place] [address] Phone [phone] Care Team Providers Care Phone Circuit Operator Name Role Phone Johnnie Newby MD Primary Care Provider [phone] Reason for Visit * Reason Comments Outpatient Testing Encounter Details Date Type Department Care Team Description 12/17/2022 Laboratory Laboratory, [facility] [address] [place] [address] [facility] [address] [place] [address] NSVT (nonsustained ventricular tachycardia) ([facility]); [employer] Other*[id number]; Right foot pain Allergies Active Allergy Reactions Severity Noted Date Comments Acetaminophen 05/06/2005 headaches documented as of this encounter (statuses as of 12/17/2022) Medications Medication Sig Dispensed Refills Start Date End Date Status DAILY MULTIVITAMIN PO TABS with lycopene 0 Active BUSPAR 15 MG PO TABS Take by mouth. 0 Active [place]-3 Fatty Acids (FISH OIL) 1000 MG Capsule [...] 24 Hour (Imdur)Indications:C oronary artery disease involving [place] coronary artery without angina pectoris TAKE ONE [...] Information Patient not taking.Reported on 11/25/2022 Tiotropium [place] Monohydrate 18 MCG Inhalation Capsule (Spiriva) INHALE [...] long-term current use of insulin 08/02/2018 Old [place] (myocardial infarction) 8 YISSEL treated with BiPAP 01/03/2018 Overview: Wears BiPAP at night Type 2 diabetes mellitus with hemoglobin A1c goal of less than 8.0% 10/23/2014 Overview: ICD-10 update of inactive term CVA, old, 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 PTSD (post-traumatic stress disorder) Gastroesophageal reflux disease without esophagitis 01/05/2014 Coronary artery disease invo lving [place] coronary artery of [place] heart without angina pectoris 11/27/2013 Tobacco abuse [...] Vascular Surgery Cyril Thompson MD [address] [facility] [place] [phone] 01/11/2023 Office Visit Cardiology Deisy Aguirre CRNP [address] [place] [address] 01/13/2023 Hospital Encounter Surgery Pb Alexander, [address] [place] [address] 01/13/2023 Surgery Surgery Pb Alexander, [address] [place] [address] L-/S-SPINE PARAVERTEBRAL FACET INJ, 1 LEVEL 01/15/2023 Office Visit Family Medicine Johnnie Newby MD [address] [place] [address] 02/11/2023 Office Visit Sleep Disorders Hui Bishop CRNP [address] [place] [address] 02/26/2023 Office Visit Podiatry Bettye Herrmann DPM [address] [place] [phone] 07/08/2023 Imaging Radiology 07/13/2023 Office Visit Radiation Oncology Shawna Johnson MD [address] [place] [address] [place] [address] Pending Results Name Type Priority Associated Diagnoses Date /Time MAGNESIUM Lab Routine NSVT (nonsustained ventricular tachycardia) (HCC) 12/17/2022 1:24 PM EDT COMPREHENSIVE METABOLIC PANEL Lab Routine NSVT (nonsustained ventricular tachycardia) (HCC) 12/17/2022 1:24 PM EDT TSH Lab Routine NSVT (nonsustained ventricular tachycardia) (HCC) 12/17/2022 1:24 PM EDT MYCODE INITIAL ADULT Lab Routine [employer] Other*[id number] 12/17/2022 1:24 PM EDT URIC ACID Lab Routine Right foot pain 12/17/2022 1:24 PM EDT MYCODE INITIAL ADULT-PINK Lab Routine [employer] Other*[id number] 12/17/2022 1:24 PM EDT MYCODE SST1 Lab Routine [employer] Other*[id number] 12/17/2022 1:24 PM EDT MYCODE SST2 Lab Routine [employer] Other*[id number] 12/17/2022 1:24 PM EDT Scheduled Procedures Name Priority Associated [...] 06/04/20222 022, 04/04/2018, 11/10/2016, Additional history exists CKD HGB USE SMARTSET 45159 07/17/202212/17, 07/17/2021, 07/17/2021, Additional history exists GFR 12/03/2022 06/05/2022, 11/17, [...] 05/01/2023 05/01/2022, 02/13/2022 CKD PHOS USE SMARTSET 13819 06/05/202305/20, 06/03/2021, 06/04/2020, Additional history exists DIABETES-FOOT [...] this encounter Medical Devices Implanted Type Area Prosthodontist/Owner Device Identifier Shelf Expiration Date Model / Serial / Lot Lens Intraoc 24.0 - [id number] - [id number] Implanted:Qty: 1 on 06/01/2017 by Nikhil Bolton MD at OR [facility] Left: Eye BAUSCH [employer] LOMB 07/17/2021 [id number] / [id number] / [id number] Lens Intraoc 24.0 - [id number] - [id number] Implanted:Qty: 1 on 06/08/2017 by Nikhil Bolton MD at OR [facility] Right: Eye BAUSCH & LOMB 07/17/2021 [id number] / [id number] / [id number] documented as of this encounter Procedures Procedure Name Priority Date/Time Associated Diagnosis Comments CBC Routine 12/17/2022 1:24 PM EDT NSVT (nonsustained ventricular tachycardia) (HCC) documented in this encounter Results * (ABNORMAL) CBC (12/17/2022 1:24 PM EDT) WBC 6.97 4.00 - 10.80 K/uL 12/17/2022 1:30 PM EDT [facility] 57-10 RBC 3.59 4.50 - 5.25 M/uL 12/17/2022 1:30 PM EDT [facility] 57-10 HGB 9.8(L) 14.0 - 16.8 g/dL 12/17/2022 1:30 PM EDT [facility] 57-10 HCT 32.2(L) 40.0 - 48.4 % 12/17/2022 1:30 PM EDT [facility] 57-10 MCV 89.7 82.0 - 99.5 fL 12/17/2022 1:30 PM EDT [facility] 57-10 MCH 27.3 27.0 - 34.0 pg 12/17/2022 1:30 PM EDT [facility] 57-10 MCHC 30.4 32.0 - 36.0 g/dL 12/17/2022 1:30 PM EDT [facility] 57-10 RDW 18.4 11.5 - 15.5 % 12/17/2022 1:30 PM EDT [facility] [place] 57-10 PLT 257 140 - 400 K/uL 12/17/2022 1:30 PM EDT [facility] [place] 57-10 MPV 9.2 6.6 - 11.1 fL 12/17/2022 1:30 PM EDT [facility] [place] 57-10 Blood Venous blood specimen / Unknown Venipuncture / Unknown 12/17/2022 1:24 PM EDT 12/17/2022 1:24 PM EDT Zack Sanjuana Osman [facility] LAB BLOOD ORDERABLE S [facility] [place] 57-10 [address] [place] [address] documented in this encounter Visit Diagnoses Diagnosis NSVT (nonsustained ventricular tachycardia) (HCC) Paroxysmal ventricular tachycardia [employer] Other*[id number] Right foot pain Pain in limb 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 radiculopathy Lumbosacral spondylosis without myelopathy documented in this encounter Advance Directives Documents on File Type Date Recorded Patient Collection Specialist Expl anation Advance Directives and Yu [...] and were consensually agreed upon. Care Teams Phone Circuit Operator Relationship Specialty Start Date End Date Johnnie Newby MD [address] [place] [address] PCP - General Family Medicine 09/13/20 documented as of this encounter
--- OUTSIDE RECORDS SUMMARY | 2023-04-15 00:21 | External Medical Summary ---
Author Name Unknown Address Unknown Organization [id number]:LABORATORY [facility] - [address] [facility] [address] Laboratory Report Ordering Provider Test Date Status ALEX MARIE 12/22/2022 09:03:45 Final Observation Date Value Abnormality Reference (Units) Status Protein 12/22/2022 09:03:45 6.3 6.0-8.3 (g/dL) Final Albumin/Protein.total [Pure mass fraction] in Serum or Plasma by Electrophoresis 12/22/2022 09:03:45 3.17 Below low normal 3.30-4.40 (g/dL) Final Alpha 1 globulin/Protein.tota l [Pure mass fraction] in Serum or Plasma by Electrophoresis 12/22/2022 09:03:45 0.27 0.10-0.30 (g/dL) Final Alpha 2 globulin/Protein.tota l [Pure mass fraction] in Serum or Plasma by Electrophoresis 12/22/2022 09:03:45 1.25 Above high normal 0.60-1.00 (g/dL) Final Beta globulin/Protein.tota l [Pure mass fraction] in Serum or Plasma by Electrophoresis 12/22/2022 09:03:45 0.90 0.80-1.30 (g/dL) Final Gamma globulin/Protein.tota l [Pure mass fraction] in Serum or Plasma by Electrophoresis 12/22/2022 09:03:45 0.71 0.70-1.70 (g/dL) Final Protein Fractions [Interpretation] in Serum or Plasma by Electrophoresis Narrative 12/22/2022 09:03:45 No paraprotein detected. Final Performing Location LABORATORY [facility] - [address] [facility] [address]
--- OUTSIDE RECORDS SUMMARY | 2023-04-15 00:22 | External Medical Summary | Summary of Care ---
Author Name Unknown Organization [facility] Address [address] [place] [address] Phone [phone] Care Team Providers Care Mother Baby Rn Name Role Phone Johnnie Newby MD Primary Care Provider [phone] Reason for Visit * Reason Comments Medication Refill Encounter Details Date Type Department Care Team Description 12/08/2022 Refill Cardiology, [facility] [address] [place], [place] [id number] Elliott Hunt, Magdaleno Osborne, DO SVT (supraventricular tachycardia) ([facility]); NSVT (nonsustained ventricular tachycardia) ([facility]) Allergies Active Allergy Reactions Severity Noted Date Comments Acetaminophen 05/06/2005 headaches documented as of this encounter (statuses as of 12/09/2022) Medications Medication Sig Dispensed Refills Start Date End Date Status DAILY MULTIVITAMIN PO TABS with lycopene 0 Active BUSPAR 15 MG PO TABS Take by mouth. 0 Active [place]-3 Fatty Acids (FISH OIL) 1000 MG Capsule [...] 24 Hour (Imdur)Indications: Coronary artery disease involving lime coronary artery without angina pectoris TAKE ONE [...] Information Patient not taking.Reported on 11/25/2022 Tiotropium [place] Monohydrate 18 MCG Inhalation Capsule (Spiriva) INHALE [...] :COPD, group B, by GOLD 2017 classification ([facility] [...] 90 Tablet 0 2 04/03/20 23 Active Atorvastatin Calcium 80 MG Oral Tablet (Lipitor) TAKE ONE TABLET BY MOUTH AT BEDTIME 90 Tablet 1 2 03/31/20 23 Active risperiDONE 0.25 MG Oral Tablet (RisperDAL) TAKE ONE TABLET BY MOUTH EVERY NIGHT AT BEDTIME 90 Tablet 0 2 01/30/20 23 Active Additional Information Patient not taking.Reported on 11/25/2022 busPIRone HCl 15 MG Oral Tablet (Buspar) take 1/2 - 1 tab by mouth three times a day as needed for anxiety 90 Tablet 0 3 Active FLUoxetine HCl 20 [...] ns:COPD, group D, by GOLD 2017 classification ([facility]) TAKE ONE TABLET BY MOUTH EVERY MORNING 90 Tablet 1 3 11/26/19 24 Active Apixaban 5 MG Oral Tablet (Eliquis) Take 1 Tablet by mouth in the morning and 1 Tablet before bedtime. 180 Tablet 3 3 Active Aspirin 81 MG Oral Tablet Chewable Take 1 Tablet by mouth in the morning. 100 Tablet 3 3 Active Metoprolol Succinate ER 25 MG Oral Tablet Extended Release 24 Hour (toPROL XL)Indications:SVT (supraventricular tachycardia) ([facility]),NSVT (nonsustained ventricular tachycardia) ([facility]) TAKE ONE TABLET BY MOUTH EVERY DAY 90 Tablet 3 3 12/09/19 24 Active Metoprolol Succinate ER 25 MG Oral Tablet Extended Release 24 Hour (toPROL XL)Indications:SVT (supraventricular tachycardia) (HCC),NSVT (nonsustained ventricular tachycardia) ([facility]) TAKE ONE TABLET BY MOUTH EVERY DAY 90 Tablet 3 2 12/09/19 23 Discontinu ed(Refill) Hospital, Clinic, or Other [...] as of this encounter (statuses as of 12/09/2022) Active Problems Problem Noted Date Overweight (BMI [...] long-term current use of insulin 08/02/2018 Old [place] (myocardial infarction) 8 YISSEL treated with BiPAP 01/03/2018 Overview: Wears BiPAP at night Type 2 diabetes mellitus with hemoglobin A1c goal of less than 8.0% 10/23/2014 Overview: ICD-10 update of inactive term CVA, old, 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 PTSD (post-traumatic stress disorder) Gastroesophageal reflux disease without esophagitis 01/05/2014 Coronary artery disease invo lving lime coronary artery of lime heart without angina pectoris 11/27/2013 Tobacco abuse 11/27/2013 HTN, goal below 130/80 03/06/2009 Overview: Modified per HTN protocol #16. documented as of this encounter (statuses as of 12/09/2022) Resolved Problems Problem Noted Date Resolved Date [...] as of this encounter (statuses as of 12/09/2022) Immunizations Name Administration Dates Next Due COVID-19 mRNA, LNP-s, No Pre serve, 2-Dose Series ([employer]) 02/10/2022,07/13/2020,06/17/2020 Pneumococcal Conjugate Vacc, 13 Valent (Prevnar) [...] encounter Miscellaneous Notes * Telephone Encounter - Lindsay Montoya DO - 12/09/2022 8:09 AM EDTSigned Prescriptions: Disp Refills Metoprolol Succinate ER 25 MG Oral Tablet *90 Tab*3 Sig: TAKE ONE TABLET BY MOUTH EVERY DAY Authorizing Provider: LINDSAY MONTOYA * Telephone Encounter - ARACELI Santos - 12/09/2022 7:41 AM EDTPending Prescriptions: Disp Refills Metoprolol Succinate ER 25 MG Oral Tablet *90 Tab*3 Sig: TAKE ONE TABLET BY MOUTH EVERY DAY * Telephone Encounter - ARACELI Santos - 12/09/2022 7:40 AM EDT Did you pend patient's preferred pharmacy and medication before forwarding?yes Pharmacy: [email or web address] Pending Prescriptions: Disp Refills Metoprolol Succinate ER 25 MG Oral Tablet*90 Tab*3 Sig: TAKE ONE TABLET BY MOUTH EVERY DAY Last Visit: 12/08/2022 (in office), 05/20/2020 (telemedicine) Next Visit: 01/11/2023 If no future appointments scheduled, and last appointment is greater than a year ago, please schedule patient for a follow-up appointment Last date the medication was ordered: 01-26-2022 Is this request for a controlled substance?No Urine Drug Screen:No results found for this or any previous visit. Patient Phone Numbers Labs: Lab Results Component Value Date/Time CREAT 1.4 (H) 06/05/2022 12:49 PM CREAT 1.2 11/30/2019 09:17 AM POTASSIUM 4.6 06/05/2022 12:49 PM POTASSIUM 4.2 11/30/2019 09:17 AM TSH 2.03 07/17/2021 02:11 PM TSH 2.07 07/17/2021 02:11 PM TSH 1.55 10/07/2015 12:50 PM LDLCALC 127 06/03/2021 08:37 AM LDLCALC 110 11/30/2019 09:17 AM LDLCALC 231. (HH) 02/11/1996 09:20 AM LDLDIRECT NOT APPLICABLE 11/30/2019 09:17 AM LDLDIRECT 123 05/18/2016 03:54 PM ALT 13 06/03/2021 08:37 AM ALT 17 11/30/2019 09:17 AM ALT 38 02/11/1996 09:20 AM HGBA1C 6.2 (H) 06/05/2022 12:49 PM HGBA1C 6.1 (H) 11/30/2019 09:17 AM documented in this encounter Plan of Treatment Upcoming Encounters Date Type Specialty Care Team Description 12/17/2022 [facility] [address] [facility] [address] 12/31/2022 Appointment Radiology 12/31/2022 Office Visit Vascular Surgery Cyril Thompson MD [address] [facility] [place] [address] 01/11/2023 Office Visit Cardiology Deisy Aguirre CRNP [address] [place] [address] 01/13/2023 Hospital Encounter Surgery Pb Alexander, [address] [place] [address] 01/13/2023 Surgery Surgery Pb Alexander DO [address] [place] [address] L-/S-SPINE PARAVERTEBRAL FACET INJ, 1 LEVEL 01/15/2023 Office Visit Family Medicine Johnnie Newby MD [address] [place] [address] 02/11/2023 Office Visit Sleep Disorders Hui Bishop CRNP [address] [place] [address] 07/08/2023 Imaging Radiology 07/13/2023 Office Visit Radiation Oncology Shawna Johnson MD [address] [place] [address] [place] [address] Scheduled Procedures Name Priority [...] 06/04/2022 022, 04/04/2018, 11/10/2016, Additional history exists CKD HGB USE SMARTSET 70425 07/17/202207/17, 07/17/2021, 12/02/2020, Additional history exists GFR [...] 05/01/2023 05/01/2022, 02/13/2022 CKD PHOS USE SMARTSET 83304 06/05/202305/20, 06/03/2021, 06/04/2020, Additional history exists DIABETES-FOOT [...] this encounter Medical Devices Implanted Type Area Insecticide Mixer Device Identifier Shelf Expiration Date Model / Serial / Lot Lens Intraoc 24.0 - [id number] - [id number] Implanted:Qty: 1 on 06/01/2017 by Nikhil Bolton MD at OR [facility] Left: Eye [employer]US[employer] LOMB 07/17/2021 [id number] / [id number] / [id number] Lens Intraoc 24.0 - [id number] - [id number] Implanted:Qty: 1 on 06/08/2017 by Nikhil Bolton MD at OR [facility] Right: Eye BAUSCH & LOMB 07/17/2021 [id number] / [id number] / [id number] documented as of this encounter Visit Diagnoses Diagnosis SVT (supraventricular tachycardia) (HCC) Other specified cardiac dysrhythmias NSVT (nonsustained ventricular tachycardia) (HCC) Paroxysmal ventricular tachycardia 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 radiculopathy Lumbosacral spondylosis without myelopathy documented in this encounter Advance Directives Documents on File Type Date Recorded 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 Care Teams Mother Baby Rn Relationship Specialty Start Date End Date Johnnie Newby MD [address] [place] [address] PCP - General Family Medicine 09/13/20 documented as of this encounter
--- OUTSIDE RECORDS SUMMARY | 2023-04-15 00:22 | External Medical Summary ---
Author Name Unknown Address Unknown Organization K01:LABORATORY [facility] - [facility] [address] [facility] [address] [facility] [address] Laboratory Report Ordering Provider Test Date Status ALEX MARIE 12/17/2022 13:24:02 Final Observation Date Value Abnormality Reference (Units ) Status Retic, % (auto) 12/17/2022 13:24:02 1.75 0.80-1.90 (%) Final Reticulocytes, Absolute 12/17/2022 13:24:02 62.8 31.3-100.1 (K/uL) Final Reticulocyte fraction, immature 12/17/2022 13:24:02 30.8 Above high normal 2.5-20.6 (%) Final Reticulocyte HGB 12/17/2022 13:24:02 30.4 29.7-37.4 (pg) Final Performing Location LAB[facility]ORY [facility] - [address] [facility] [address]
--- OUTSIDE RECORDS SUMMARY | 2023-04-15 00:22 | External Medical Summary | Summary of Care ---
Author Name Unknown Organization [facility] Address [address] [place] [address] Phone [phone] Care Team Providers Care Clinical Staff Pharmacist Name Role Phone Johnnie Newby MD Primary Care Provider [phone] [phone] Reason for Visit * Reason Onset Date Comments Advice 07/30/2022 Encounter Details Date Type Department Care Team Description 07/30/2022 Telephone Orthopaedics [address] [address] Aditya Taylor, Advice Allergies Active Allergy Reactions Severity Noted Date Comments Acetaminophen 05/06/2005 headaches documented as of this encounter (statuses as of 12/02/2022) Medications Medication Sig Dispensed Refills Start Date End Date Status DAILY MULTIVITAMIN PO TABS with lycopene 0 Active BUSPAR 15 MG PO TABS Take by mouth. 0 Active ASPIRIN EC 81 MG PO TBECIndications:CA D in three affiliated artery 1 TABLET DAILY 99 Tab 99 04/21/19 14 Active [place]-3 Fatty Acids (FISH OIL) 1000 MG Capsule Take 1 Capsule by mouth in the morning. 0 Active clonazePAM (KLONOPIN) 0.5 MG Tablet TAKE TWO TABLETS AT BEDTIME, MAY TAKE ONE TABLET TWO TIMES A DAY NEEDED FOR ANXIETY ADDITIONALLY 0 06/18/19 17 Active risperiDONE 0.25 MG Oral TabletIndications: pt takes .5 mg at bedtime and .025 mid morning Take 2 Tablets by mouth at bedtime. 0 Active ONETOUCH ULTRA BLUE STRPIndications:Ty pe 2 diabetes mellitus with hemoglobin A1c goal of less than 7.0% (HCC) TEST ONCE DAILY 100 Strip 5 03/02/20 18 Active Ventolin HFA 108 (90 Base) MCG/ACT Inhalation Aerosol SolutionIndication s:COPD, moderate (HCC) Take 2 Puffs by mouth 4 times a day as needed for Shortness of Breath or Wheezing. 54 g 1 05/07/19 21 Active Mirtazapine 15 MG Oral Tablet (Remeron) Take one and half tablets by mouth daily at bedtime 0 10/02/19 21 Active Gabapentin 300 MG Oral Capsule (Neurontin) Take by mouth 1 Capsule before bedtime. 90 Capsule 3 09/11/19 22 Active FLUoxetine HCl 20 MG Oral Capsule (PROzac) TAKE 3 CAPSULES BY MOUTH EVERY MORNING 270 Capsule 0 01/06/20 22 023 Active BiPAP every night at bedtime. 0 Active Vitamin B-12 1000 MCG Oral Tablet (Cyanocobalamin) Take 1 Tablet by mouth in the morning. 0 Active Isosorbide Mononitrate ER 60 MG Oral Tablet Extended Release 24 Hour (Imdur)Indications :Coronary artery disease involving three affiliated coronary artery without angina pectoris Take by mouth 1 Tablet in the morning. 90 Tablet 3 11/22/19 22 023 Discontinued(Re fill) Furosemide 40 MG Oral Tablet (Lasix)Indications :HTN, goal below 140/90 Take by mouth 1 Tablet in the morning. 100 Tablet 1 12/26/19 22 023 Discontinued(Re fill) Omeprazole 20 MG Oral Capsule Delayed Release (PriLOSEC)Indicati ons:Gastroesophage al reflux disease without esophagitis Take by mouth 1 Capsule in the morning. 90 Capsule 3 01/01/20 22 023 Discontinued(Re fill) Metoprolol Succinate ER 25 MG Oral Tablet Extended Release 24 Hour (toPROL XL)Indications:SVT (supraventricular tachycardia) (HCC),NSVT (nonsustained ventricular tachycardia) (HCC) TAKE ONE TABLET BY MOUTH EVERY DAY 90 Tablet 3 01/27/20 22 022 Discontinued(Leann razo prescription brought in as discontinued) metFORMIN HCl 1000 MG Oral Tablet (Glucophage) Take 1 Tablet (1,000 mg) by mouth in the morning. 100 Tablet 1 03/25/20 22 023 Discontinued(Re fill) Atorvastatin Calcium 80 MG Oral Tablet (Lipitor) Take 1 Tablet (80 mg) by mouth at bedtime. 90 Tablet 1 03/31/20 22 022 Discontinued([place] g[place] prescription brought in as discontinued) Fluticasone-Salmet gume 230-21 MCG/ACT Inhalation Aerosol (Advair)Indication s:COPD, group B, by GOLD 2017 classification ([facility]) Inhale 2 Puffs by mouth in the morning and 2 Puffs before bedtime. Rinse mouth after use.. 36 g 3 04/17/20 22 022 Discontinued([place] prescription brought in as discontinued) Roflumilast 500 MCG Oral Tablet (Daliresp) Take 1 Tablet by mouth in the morning. 30 Tablet 9 05/01/19 23 023 Discontinued([place] prescription brought in as discontinued) Lisinopril 20 MG Oral Tablet (Prinivil)Indicati ons:HTN, goal below 140/90 Take 1 Tablet by mouth in the morning. 90 Tablet 0 05/26/19 23 023 Discontinued(Re fill) Aspirin-Dipyridamo le ER 25-200 MG Oral Capsule Extended Release 12 Hour (Aggrenox)Indicati ons:CVA, old, ataxia Take 1 Capsule by mouth in the morning. 120 Capsule 0 05/26/19 23 023 Discontinued(Re fill) Spiriva HandiHaler 18 MCG Inhalation Capsule (tiotropium bromide) Inhale 1 Capsule by mouth in the morning. . Do not swallow capsule.. 90 Capsule 3 06/27/19 23 023 Discontinued([place] prescription brought in as discontinued) Hospital, Clinic, [...] as of this encounter (statuses as of 12/02/2022) Active Problems Problem Noted Date Overweight (BMI [...] esophagitis 01/05/2014 Coronary artery disease invo lving three affiliated coronary artery of three affiliated heart without angina pectoris 11/27/2013 Tobacco abuse 11/27/2013 HTN, goal below 130/80 03/06/2009 Overview: Modified per HTN protocol #16. documented as of this encounter (statuses as of 12/02/2022) Resolved Problems Problem Noted Date Resolved Date [...] as of this encounter (statuses as of 12/02/2022) Immunizations Name Administration Dates Next Due COVID-19 mRNA, LNP-s, No Pre serve, 2-Dose Series ([employer]) 02/10/2022,07/13/2020,06/17/2020 Pneumococcal Conjugate Vacc, 13 Valent (Prevnar) 04/06/2014 Pneumococcal Polysaccharide PPV23 (Pneumovax) 11/07/2015 Seasonal Influenza, Quadriva lent Hd (Fluzone Hd) 03/05/2021 Seasonal Influenza, Quadriva lent, No Preserve, Adjuvanted, 65+ Yrs, IM 02/27/2020 Seasonal Influenza, Quadriva lent, No Preserve, IM [...] Miscellaneous Notes * Telephone Encounter - YISSEL Roy - 07/30/2022 8:06 AM EDT Patient calling requesting to speak with nurse concerning knee injections on 07/29/2022 and knee pain. Patient can be reached at [phone]. documented in this encounter Plan of Treatment Upcoming Encounters Date Type Specialty Care Team Description 12/08/2022 Office Visit Cardiology Warren Montoya, DO [address] [place] [address] 12/17/2022 Office Visit Podiatry Bettye Herrmann DPM [address] [place] [address] 12/31/2022 Appointment Radiology 12/31/2022 Office Visit Vascular Surgery Cyril Thompson MD [address] [place] [address] 01/13/2023 Hospital Encounter Surgery Pb Alexander, DO [address] [place] [address] 01/13/2023 Surgery Surgery Pb Alexander, DO [address] [place] [address] L-/S-SPINE PARAVERTEBRAL FACET INJ, 1 LEVEL 02/11/2023 Office Visit Sleep Disorders Hui Bishop CRNP [address] [place] [address] 07/08/2023 Imaging Radiology 07/13/2023 Office Visit Radiation Oncology Shawna Johnson MD [facility] [place] [address] Scheduled Procedures Name Priority Associated Diagnoses Date/Ti [...] Additional history exists CKD HGB USE SMARTSET 28998 07/17/202207/17, 07/17/2021, 12/02/2020, Additional history exists GFR [...] 05/01/2023 05/01/2022, 02/13/2022 CKD PHOS USE SMARTSET 26849 06/05/202305/20, 06/03/2021, 06/04/2020, Additional history exists DIABETES-FOOT [...] this encounter Medical Devices Implanted Type Area English Lecturer Device Identifier Shelf Expiration Date Model / Serial / Lot Lens Intraoc 24.0 - [id number] - [id number] Implanted:Qty: 1 on 06/01/2017 by Nikhil Bolton MD at OR [facility] Left: Eye [employer] LOMB 07/17/2021 [id number] / [id number] / [id number] Lens Intraoc 24.0 - [id number] - [id number] Implanted:Qty: 1 on 06/08/2017 by Nikhil Bolton MD at OR [facility] Right: Eye BA[employer]CH [employer] LOMB 07/17/2021 [id number] / [id number] / [id number] documented as of this encounter Advance Directives Documents on File Type Date Recorded 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 Care Teams Clinical Staff Pharmacist Relationship Specialty Start Date End Date Johnnie Newby MD [address] [place] [address] PCP - General Family Medicine 09/13/20 documented as of this encounter
--- OUTSIDE RECORDS SUMMARY | 2023-04-15 00:22 | External Medical Summary ---
Author Name Unknown Address Unknown Organization K01:LABORATORY [facility] - [address] [place] [address] Laboratory Report Ordering Provider Test Date Status ALEX MARIE 12/17/2022 13:24:02 Final Observation Date Value Abnormality Reference (Units ) Status Folic Acid 12/17/2022 13:24:02 >20.0 >4.5 (ng/ mL) Final Performing Location LABORATORY [facility] - [address] [place] [address]
--- OUTSIDE RECORDS SUMMARY | 2023-04-15 00:22 | External Medical Summary ---
Author Name Unknown Address Unknown Organization K01:LABORATORY [facility] - [address] [place] [address] Laboratory Report Ordering Provider Test Date Status HILARIA MARIEO 12/17/2022 13:24:02 Final Observation Date Value Abnormality Reference (Units ) Status Vitamin B12 12/17/2022 13:24:02 [phone] (pg/mL) Final Performing Location LABORATORY [facility] - [address] [place] [address]
--- OUTSIDE RECORDS SUMMARY | 2023-04-15 00:22 | External Medical Summary | Summary of Care ---
Author Name Unknown Organization [facility] Address [address] [place] [address] Phone [phone] Care Team Providers Care Journeyman Pipe Fitter Name Role Phone John Newby MD Primary Care Provider [phone] Reason for Visit * Reason Comments Medication Refill Encounter Details Date Type Department Care Team Description 12/08/2022 Refill Family Practice [facility] [address] [facility] [place] [address] John Newby MD [address] [place] [address] Allergies Active Allergy Reactions Severity Noted Date Comments Acetaminophen 05/06/2005 headaches documented as of this encounter (statuses as of 12/09/2022) Medications Medication Sig Dispensed Refills Start Date End Date Status DAILY MULTIVITAMIN PO TABS with lycopene 0 Active BUSPAR 15 MG PO TABS Take by mouth. 0 Active [place]-3 Fatty Acids (FISH OIL) 1000 MG Capsule [...] 24 Hour (Imdur)Indications: Coronary artery disease involving yurok coronary artery without angina pectoris TAKE ONE [...] Information Patient not taking.Reported on 11/25/2022 Tiotropium [place] Monohydrate 18 MCG Inhalation Capsule (Spiriva) INHALE [...] B, by GOLD 2017 classification ([facility]) INHALE TWO PUFFS BY MOUTH [...] D, by GOLD 2017 classification ([facility]) TAKE ONE TABLET BY MOUTH [...] Hour (toPROL XL)Indications:SVT (supraventricular tachycardia) ([facility]),NSVT (nonsustained ventricular tachycardia) ([facility]) TAKE ONE TABLET BY MOUTH EVERY DAY 90 Tablet 3 3 12/09/19 24 Active Atorvastatin Calcium 80 MG Oral Tablet (Lipitor) TAKE ONE TABLET BY MOUTH AT BEDTIME 90 Tablet 1 3 12/09/19 24 Active Atorvastatin Calcium 80 MG Oral Tablet (Lipitor) TAKE ONE TABLET BY MOUTH AT BEDTIME 90 Tablet 1 2 12/09/19 23 Discontinu ed(Refill) Hospital, Clinic, [...] long-term current use of insulin 08/02/2018 Old [place] (myocardial infarction) 8 YISSEL treated with BiPAP 01/03/2018 Overview: Wears BiPAP at night Type 2 diabetes mellitus with hemoglobin A1c goal of less than 8.0% 10/23/2014 Overview: ICD-10 update of inactive term CVA, old, 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 PTSD (post-traumatic stress disorder) Gastroesophageal reflux disease without esophagitis 01/05/2014 Coronary artery disease invo lving yurok coronary artery of yurok heart without angina pectoris 11/27/2013 Tobacco abuse [...] mRNA, LNP-s, No Pre serve, 2-Dose Series (Mouth Party) 02/10/2022,07/13/2020,06/17/2020 Pneumococcal Conjugate Vacc, 13 Valent (Prevnar) [...] encounter Miscellaneous Notes * Telephone Encounter - Mable Álvarez RPh - 12/09/2022 11:53 AM EDTSigned Prescriptions: Disp Refills Atorvastatin Calcium 80 MG Oral Tablet (Li*90 Tab*1 Sig: TAKE ONE TABLET BY MOUTH AT BEDTIMEAuthorizing Provider: JOHN NEWBY User: MABLE ÁLVAREZ documented in this encounter Plan of Treatment Upcoming Encounters Date Type Specialty Care Team Description 12/17/2022 [facility] [address] [facility] [place] [address] 12/31/2022 Appointment Radiology 12/31/2022 Office Visit Vascular Surgery Cyril Thompson MD [address] [place] [address] 01/11/2023 Office Visit Cardiology Desiy Aguirre CRNP [address] [place] [address] 01/13/2023 Hospital Encounter Surgery MariliamicheletPb Mable, DO [address] [place] [address] 01/13/2023 Surgery Surgery Pb Alexander, DO [address] [place] [address] L-/S-SPINE PARAVERTEBRAL FACET INJ, 1 LEVEL 01/15/2023 Office Visit Family Medicine John Newby MD [address] [place] [address] 02/11/2023 Office Visit Sleep Disorders Hui Bishop CRNP [address] [place] [address] 07/08/2023 Imaging Radiology 07/13/2023 Office Visit Radiation Oncology Shawna Johnson MD [address] [place] [address] [place] [address] Scheduled Procedures Name Priority Associated Diagnoses Date/Ti [...] series) 04/07/2022 02/10/2022, 07/13/2020, 06/17/2020 Albumin/Creatinine Ratio 06/04/202206/04/ 022, 04/04/2018, 11/10/2016, Additional history exists CKD HGB USE SMARTSET 35555 07/17/202207/17, 07/17/2021, 12/02/2020, Additional history exists GFR [...] 05/01/2023 05/01/2022, 02/13/2022 CKD PHOS USE SMARTSET 17620 06/05/202305/20, 06/03/2021, 06/04/2020, Additional history exists DIABETES-FOOT [...] this encounter Medical Devices Implanted Type Area Fundraising Consultant Device Identifier Shelf Expiration Date Model / Serial / Lot Lens Intraoc 24.0 - [id number] - [id number] Implanted:Qty: 1 on 06/01/2017 by Nikhil Bolton MD at OR [facility] Left: Eye BAUSCH [employer] LOMB 07/17/2021 [id number] / [id number] / [id number] Lens Intraoc 24.0 - [id number] - [id number] Implanted:Qty: 1 on 06/08/2017 by Nikhil Bolton MD at OR [facility] Right: Eye BAUSCH & LOMB 07/17/2021 [id number] / [id number] / [id number] documented as of this encounter Advance Directives Documents on File Type Date Recorded Patient Systems Manager Expl 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 Care Teams Journeyman Pipe Fitter Relationship Specialty Start Date End Date John Newby MD [address] [place] [address] PCP - General Family Medicine 09/13/20 documented as of this encounter
--- OUTSIDE RECORDS SUMMARY | 2023-04-15 00:22 | External Medical Summary ---
Author Name Unknown Address Unknown Organization K01:LABORATORY [facility] [place] - [address] [place] [address] Laboratory Report Ordering Provider Test Date Status HERMILO BADILLO 12/17/2022 13:24:02 Final Observation Date Value Abnormality Reference (Units ) Status MYCODE SPECIMEN-SST 12/17/2022 13:24:02 Freezing of extracted DNA, whole blood and/or serum. Final Performing Location LABORATORY [facility] [place] - [address] [place] [place] [address]
--- OUTSIDE RECORDS SUMMARY | 2023-04-15 00:22 | External Medical Summary | Summary of Care ---
Author Name Unknown Organization [facility] Address [address] [place] [address] Phone [phone] Care Team Providers Care Spaghetti Machine Operator Name Role Phone Johnnie Newby MD Primary Care Provider [phone] Reason for Visit * Reason Comments Follow Up Encounter Details Date Type Department Care Team Description 12/08/2022 Office Visit Cardiology, [facility] [address] [place] [address] Warren Montoya, [address] [place] [address] HTN, goal below 130/80*; Coronary artery disease involving [place] coronary artery of [place] heart without angina pectoris; Nonrheumatic aortic valve stenosis; PAF (paroxysmal atrial fibrillation) ([facility]) Allergies Active Allergy Reactions Severity Noted Date Comments Acetaminophen 05/06/2005 headaches documented as of this encounter (statuses as of 12/08/2022) Medications Medication Sig Dispensed Refills Start Date End Date Status DAILY MULTIVITAMIN PO TABS with lycopene 0 Active BUSPAR 15 MG PO TABS Take by mouth. 0 Active Madison-3 Fatty Acids (FISH OIL) 1000 MG Capsule [...] A1c goal of less than 7.0% ([facility]) TEST ONCE DAILY 100 Strip 5 03/02/20 18 Active Ventolin HFA 108 (90 Base) MCG/ACT Inhalation Aerosol SolutionIndication s:COPD, moderate ([facility]) Take 2 Puffs by mouth 4 [...] nostril in the morning. 16 g 1 09/10/19 23 Active Omeprazole 20 MG Oral Capsule Delayed Release (PriLOSEC)Indicati ons:Gastroesophage al reflux disease without esophagitis TAKE ONE CAPSULE BY MOUTH EVERY MORNING *NEED UPDATED LABS* 90 Capsule 1 10/03/19 23 024 Active Isosorbide Mononitrate ER 60 MG Oral Tablet Extended Release 24 Hour (Imdur)Indications :Coronary artery disease involving [place] coronary artery without angina pectoris TAKE ONE TABLET BY MOUTH EVERY MORNING 90 Tablet 3 09/19/19 23 024 Active Furosemide 40 MG Oral Tablet (Lasix)Indications :HTN, goal below 140/90 TAKE ONE TABLET BY MOUTH EVERY MORNING 100 Tablet 1 09/19/19 23 024 Active Lisinopril 20 MG Oral Tablet (Prinivil)Indicati ons:HTN, goal below 140/90 TAKE ONE TABLET BY MOUTH EVERY MORNING 90 Tablet 2 09/19/19 23 024 Active metFORMIN HCl 1000 MG Oral Tablet (Glucophage) TAKE ONE TABLET BY MOUTH EVERY MORNING 100 Tablet 1 09/04/19 23 024 Active Mirtazapine 15 MG Oral Tablet (Remeron) TAKE ONE-HALF TABLET BY MOUTH EVERY NIGHT 45 Tablet 0 08/18/19 23 024 Active Additional Information Patient not taking.Reported on 11/25/2022 FLUoxetine HCl 20 MG Oral Capsule (PROzac) TAKE THREE CAPSULES BY MOUTH EVERY MORNING 270 Capsule 0 07/09/19 23 024 Active Additional Information Patient not taking.Reported on 11/25/2022 Tiotropium Marathon Monohydrate 18 MCG Inhalation Capsule (Spiriva) INHALE ONE CAPSULE VIA HANDIHALER EVERY MORNING. DO NOT SWALLOW CAPSULE. 90 Capsule 3 06/27/19 23 024 Active Mirtazapine 15 MG Oral Tablet (Remeron) TAKE ONE-HALF TABLET (7.5 MG.) BY MOUTH EVERY NIGHT 45 Tablet 0 05/06/19 23 024 Active Additional Information Patient not taking.Reported on 11/25/2022 risperiDONE 0.25 MG Oral Tablet (RisperDAL) TAKE ONE TABLET BY MOUTH EVERY NIGHT AT BEDTIME 90 Tablet 0 05/06/19 23 024 Active Additional Information Patient not taking.Reported on 11/25/2022 Fluticasone-Salmet gume 230-21 MCG/ACT Inhalation Aerosol (Advair)Indication s:COPD, group B, by GOLD 2017 classification ([facility]) INHALE TWO PUFFS BY MOUTH EVERY MORNING AND INHALE TWO PUFFS BY MOUTH AT BEDTIME, RINSE MOUTH AFTER USE 36 g 3 04/17/20 22 023 Active FLUoxetine HCl 20 MG Oral Capsule (PROzac) TAKE THREE CAPSULES BY MOUTH EVERY MORNING 270 Capsule 0 04/03/20 22 023 Active Additional Information Patient not taking.Reported on 11/25/2022 busPIRone HCl 15 MG Oral Tablet (Buspar) TAKE ONE HALF TO ONE TABLET BY MOUTH THREE TIMES A DAY NEEDED FOR ANXIETY 90 Tablet 0 04/03/20 22 023 Active Atorvastatin Calcium 80 MG Oral Tablet (Lipitor) TAKE ONE TABLET BY MOUTH AT BEDTIME 90 Tablet 1 03/31/20 22 023 Active risperiDONE 0.25 MG Oral Tablet (RisperDAL) TAKE ONE TABLET BY MOUTH EVERY NIGHT AT BEDTIME 90 Tablet 0 01/30/20 22 023 Active Additional Information Patient not taking.Reported on 11/25/2022 Metoprolol Succinate ER 25 MG Oral Tablet Extended Release 24 Hour (toPROL XL)Indications:SVT (supraventricular tachycardia) ([facility]),NSVT (nonsustained ventricular tachycardia) ([facility]) TAKE ONE TABLET BY MOUTH EVERY DAY 90 Tablet 3 01/27/20 22 023 Active busPIRone HCl 15 MG Oral Tablet (Buspar) take 1/2 - 1 tab by mouth three times a day as needed for anxiety 90 Tablet 0 11/17/19 23 Active FLUoxetine HCl 20 MG Oral Capsule (PROzac) take 3 caps by mouth every morning 270 Capsule 0 11/17/19 23 Active Additional Information Patient not taking.Reported on 11/25/2022 risperiDONE 0.5 MG Oral Tablet (RisperDAL) take 1 tablet by mouth every night at bedtime 90 Tablet 0 11/17/19 23 Active Additional Information Patient not taking.Reported on 11/25/2022 Mirtazapine 15 MG Oral Tablet (Remeron) take 1/2 tab (7.5mg) by mouth every night 45 Tablet 0 11/17/19 23 Active Additional Information Patient not taking.Reported on 11/25/2022 Roflumilast 500 MCG Oral Tablet (Daliresp)Indicati ons:COPD, group D, by GOLD 2017 classification ([facility]) TAKE ONE TABLET BY MOUTH EVERY MORNING 90 Tablet 1 11/27/19 23 024 Active Apixaban 5 MG Oral Tablet (Eliquis) Take 1 Tablet by mouth in the morning and 1 Tablet before bedtime. 180 Tablet 3 12/09/19 23 Active Aspirin 81 MG Oral Tablet Chewable Take 1 Tablet by mouth in the morning. 100 Tablet 3 12/09/19 23 Active ASPIRIN EC 81 MG PO TBECIndications:CA D in [place] artery 1 TABLET DAILY 99 Tab 99 04/21/19 14 023 Discontinued Aspirin-Dipyridamo le ER 25-200 MG Oral Capsule Extended Release 12 Hour (Aggrenox)Indicati ons:CVA, old, ataxia TAKE ONE CAPSULE BY MOUTH EVERY MORNING 120 Capsule 0 10/03/19 23 023 Discontinued(Me dication/Dose Changed) FLUoxetine HCl 20 MG Oral Capsule (PROzac) TAKE THREE CAPSULES BY MOUTH EVERY MORNING 270 Capsule 0 08/18/19 23 023 Discontinued Hospital, Clinic, or Other Facility Administered [...] as of this encounter (statuses as of 12/08/2022) Active Problems Problem Noted Date Overweight (BMI [...] long-term current use of insulin 08/02/2018 Old NV (myocardial infarction) 8 YISSEL treated with BiPAP 01/03/2018 Overview: Wears BiPAP at night Type 2 diabetes mellitus with hemoglobin A1c goal of less than 8.0% 10/23/2014 Overview: ICD-10 update of inactive term CVA, old, 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 PTSD (post-traumatic stress disorder) Gastroesophageal reflux disease without esophagitis 01/05/2014 Coronary artery disease invo lving [place] coronary artery of [place] heart without angina pectoris 11/27/2013 Tobacco abuse 11/27/2013 HTN, goal below 130/80 03/06/2009 Overview: Modified per HTN protocol #16. documented as of this encounter (statuses as of 12/08/2022) Resolved Problems Problem Noted Date Resolved Date [...] as of this encounter (statuses as of 12/08/2022) Immunizations Name Administration Dates Next Due COVID-19 mRNA, LNP-s, No Pre serve, 2-Dose Series (Axiata) 02/10/2022,07/13/2020,06/17/2020 Pneumococcal Conjugate Vacc, 13 Valent (Prevnar) [...] Sign Reading Time Taken Comments Blood Pressure 120/68 12/08/2022 2:25 PM EDT Pulse 58 12/08/2022 2:25 PM EDT Temperature - - Respiratory Rate - - Oxygen Saturation - - Inhaled Oxygen Concentration - - Weight 92.5 kg (204 lb) 12/08/2022 2:25 PM EDT Height - - Body Mass Index 31.02 10/29/2022 11:58 AM EDT documented in this encounter Progress Notes * Warren Montoya, - 12/08/2022 3:05 PM EDT Cardiology Outpatient Follow-up Walter Don is a 77 year old male who is seen for follow-up of coronary artery disease. HPI: This is a 77-year-old male patient who was previously seen by Dr. Gallagher. This is my 1st interaction with this patient. He is a dedicated smoker with a history of coronary artery disease. 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 He went on to have an evaluation including a brain MRI that showed multiple small strokes. Carotid ultrasound did not show any significant stenoses . He also had a Zio monitor that multiple episodes of SVT. Currently he is not anticoagulated. He has been on Aggrenox for decades. He is uncertain when this medication was started and why he has taken it. He has baseline shortness of breath due to COPD. He is not had any recent activity related chest pain. No dizziness, lightheadedness or syncope. Past Medical History: Diagnosis Date Asthma Benign [...] A1c goal of less than 8.0% ([facility]) 10/23/2014 ICD-10 update of inactive term Patient Active Problem List Diagnosis Code HTN, goal below 130/80 I10 Coronary artery disease involving [place] coronary artery of [place] heart without angina pectoris I25.10 Tobacco abuse Z72.0 CVA, old, ataxia I69.993 PTSD (post-traumatic stress disorder) F43.10 Gastroesophageal reflux disease without esophagitis K21.9 Type 2 diabetes mellitus with hemoglobin A1c goal of less than 8.0% (HCC) E11.9 Old NV (myocardial infarction) I25.2 YISSEL treated with BiPAP G47.33 Type 2 diabetes mellitus with diabetic neuropathy, without long-term current use of insulin (HCC) E11.40 Peripheral arterial disease (HCC) I73.9 Dyslipidemia E78.5 COPD, group D, by GOLD 2017 classification (HCC) J44.9 Carotid stenosis, non-symptomatic I65.29 NSVT (nonsustained ventricular tachycardia) (HCC) I47.29 Aortic valve stenosis I35.0 Hypertensive kidney disease with stage 3a chronic kidney disease (HCC) I12.9, N18.31 AAA (abdominal aortic aneurysm) (HCC) I71.40 Chronic kidney disease, stage 3a (HCC) N18.31 Malignant neoplasm of right upper lobe of lung (HCC) C34.11 Depression with anxiety F41.8 History of cardioembolic cerebrovascular accident (CVA) Z86.73 Overweight (BMI 25.0-29.9) E66.3 Past Surgical History: Procedure Laterality Date BRONCHOSCOPY, DIAGNOSTIC N/A 06/12/2020 BRONCHOSCOPY DIAGNOSTIC WITH OR WITHOUT WASHING performed by Warren Patel MD at ENDOSCOPY [facility] COLONOSCOPY THRU STOMA, W/BIOPSY 05/28/2010 andenomatous tissue--repeat in 3 months COLONOSCOPY THRU STOMA, W/BIOPSY 09/18/2010 adenomatous-repeat colonoscopy in 3-6 months COLONOSCOPY THRU STOMA, W/BIOPSY 04/09/2011 polyps x3 , path shows adenomatous tissue repeat in 1 years COLONOSCOPY, DIAGNOSTIC (RECTUM) 05/20/2016 adenomatous polyps, poor prep, diverticulosis, repeat 3 yrs/[facility] COLONOSCOPY, DIAGNOSTIC (RECTUM) 06/06/2019 hemorrhoids/diverticulosis sigmoid and descending colon/small AVM/biopsies show adenomatous polyps/recall 6-9 months/COLONOSCOPY FLEXIBLE PROXIMAL DIAGNOSTIC performed by Clemencia Marinelli MD atENDOSCOPY [facility] COLONOSCOPY, DIAGNOSTIC (RECTUM) 03/05/2022 benign adenomatous polyp, repeat 1 yr / COLONOSCOPY FLEXIBLE PROXIMAL DIAGNOSTIC performed by Clemencia Marinelli MD at ENDOSCOPY [facility] L-/S-SPINE PARAVERTEBRAL FACET INJ,1 LEVEL 11/25/2022 L-/S-SPINE PARAVERTEBRAL FACET INJ, 1 LEVEL performed by Pb [place] DO at OR [facility] L-/S-SPINE PARAVERTEBRL FACET INJ,2 LEVELS 11/25/2022 L-/S-SPINE PARAVERTEBRAL FACET INJ, 2 LEVELS performed by Pb [place], DO at OR [facility] MISCELLANEOUS ORDER ([facility] ONLY) 1998 henria repair OTHER (INFORMATION) pilonidal cyst removal OTHER (INFORMATION) repair of bilateral shoulder for bone spur and repair of torn muscles right shoulder REMOVE CATARACT, INSERT LENS PROSTH Left 06/01/2017 left EXTRACAPSULAR CATARACT REMOVAL WITH INTRAOCULAR LENS performed by Nikhil Bolton MD at OR [facility] REMOVE CATARACT, INSERT LENS PROSTH Right 06/08/2017 right EXTRACAPSULAR CATARACT REMOVAL WITH INTRAOCULAR LENS performed by Nikhil Bolton MD at OR [facility] Family History Problem Relation Age of [...] Current Outpatient Medications Medication Sig Dispense Refill Apixaban 5 MG Oral Tablet (Eliquis) Take 1 Tablet by mouth in the morning and 1 Tablet before bedtime. 180 Tablet 3 Aspirin 81 MG Oral Tablet Chewable Take 1 Tablet by mouth in the morning. 100 Tablet 3 DAILY MULTIVITAMIN PO TABS with lycopene BUSPAR 15 MG PO TABS Take by mouth. Madison-3 Fatty Acids (FISH OIL) 1000 MG Capsule Take 1 Capsule by mouth in the morning. clonazePAM (KLONOPIN) 0.5 MG Tablet TAKE TWO [...] taking: Reported on 11/25/2022) 270 Capsule 0 Tiotropium Marathon Monohydrate 18 MCG Inhalation Capsule (Spiriva) INHALE [...] taking: Reported on 11/25/2022) 90 Tablet 0 Fluticasone-Salmeterol 230-21 MCG/ACT Inhalation Aerosol (Advair) INHALE TWO PUFFS BY MOUTH EVERY MORNING AND INHALE TWO PUFFS BY MOUTH AT BEDTIME, RINSE MOUTH AFTER USE 36 g 3 FLUoxetine HCl 20 MG Oral Capsule (PROzac) TAKE THREE CAPSULES BY MOUTH EVERY MORNING (Patient not taking: Reported on 11/25/2022) 270 Capsule 0 busPIRone HCl 15 MG Oral Tablet (Buspar) TAKE ONE HALF TO ONE TABLET BY MOUTH THREE TIMES A DAY NEEDED FOR ANXIETY 90 Tablet 0 Atorvastatin Calcium 80 MG Oral Tablet (Lipitor) TAKE ONE TABLET BY MOUTH AT BEDTIME 90 Tablet 1 risperiDONE 0.25 MG Oral Tablet (RisperDAL) TAKE ONE TABLET BY MOUTH EVERY NIGHT AT BEDTIME (Patient not taking: Reported on 11/25/2022) 90 Tablet 0 Metoprolol Succinate ER 25 MG Oral Tablet Extended Release 24 Hour (toPROL XL) TAKE ONE TABLET BY MOUTH EVERY DAY 90 Tablet 3 busPIRone HCl 15 MG Oral Tablet (Buspar) take 1/2 - 1 tab by mouth three times a day as needed for anxiety 90 Tablet 0 FLUoxetine HCl 20 MG [...] taking: Reported on 11/25/2022) 45 Tablet 0 Roflumilast 500 MCG Oral Tablet (Daliresp) TAKE ONE TABLET BY MOUTH EVERY MORNING 90 Tablet 1 Current Facility-Administered Medications Medication Dose Route [...] Landrum MD 2.5 mg at 04/14/22 1246 ROS: Review of Systems: See HPI for pertinent positives. All other review of systems is negative. PHYSICAL EXAMINATION BP 120/68 | Pulse 58 | Wt 92.5 kg (204 lb) | BMI 31.02 kg/m | BSA 2.11 m Body mass index is 31.02 kg/m. General: no acute distress and stated [...] Neuro: grossly normal exam Laboratory Data Review: Today's EKG reveals sinus rhythm with a first-degree AV block and a single PVC. Impression: Coronary artery disease, stable Peripheral arterial disease History CVA Moderate aortic stenosis Posttraumatic stress disorder secondary medical procedures Adenocarcinoma of the lung treated with radiation. 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 It had evidence of multiple previous strokes and a Zio monitor indicates multiple episodes of SVT which may be consistent with PAF. Today I stop the Aggrenox. He will start Eliquis 5 mg twice daily. In addition he will continue with aspirin 81 mg daily. I plan follow-up inabout a month to monitor his progress. Otherwise he is clinically stable. This chart was completed in part utilizing [employer] Voice Recognition Software. Grammatical errors, random [...] a total of 40-54 minutes (exact time 42 mins) on the date of service in preparation, delivery, and documentation of the care provided to Walter Don excluding any time spent in the performance of separately billed services. Warren [place] DO Cardiology, [facility] [address] [place] [address] 12/08/2022 documented in this encounter Nursing Notes * Stephanie Cooney CMA - 12/08/2022 2:26 PM EDT Examination Room: 16 Name: Walter Don Date of : (1945) Reason for Visit: 6m Interim Hospitalization(s): none Problems/Concerns: denied Chest Pain/SOB: pt complains of chest pain and sob all the time. Right foot swollen and painful, Occasionally gets some fluttering in chest. Only last a few seconds. Very sporadic [facility] a way you can [...] Herrmann DPM [address] [place] [address] 12/31/2022 Appointment Radiology 12/31/2022 Office Visit Vascular Surgery Cyril Thompson MD [address] [facility] [place] [address] 01/11/2023 Office Visit Cardiology Deisy Aguirre CRNP [address] [place] [address] 01/13/2023 Hospital Encounter Surgery Pb [place], DO [address] [place] [address] 01/13/2023 Surgery Surgery Pb [place], DO [address] [place] [address] L-/S-SPINE PARAVERTEBRAL FACET INJ, 1 LEVEL 01/15/2023 Office Visit Family Medicine Johnnie Newby MD [address] [place] [address] 02/11/2023 Office Visit Sleep Disorders Hui Bishop CRNP [address] [place] [address] 07/08/2023 Imaging Radiology 07/13/2023 Office Visit Radiation Oncology Shawna Johnson MD [address] [place] [address] [place] [address] Scheduled Orders Name Type Priority Associated Diagnoses Orde r Schedule EKG EKG Routine HTN, goal below 130/80 Coronary artery disease involving [place] coronary artery of [place] heart without angina pectoris Ordered: 12/08/2022 Scheduled Procedures Name Priority Associated Diagnoses Date/Ti [...] Additional history exists CKD HGB USE SMARTSET 61094 07/17/202207/17, 07/17/2021, 12/02/2020, Additional history exists GFR [...] 05/01/2023 05/01/2022, 02/13/2022 CKD PHOS USE SMARTSET 86374 06/05/202305/20, 06/03/2021, 06/04/2020, Additional history exists DIABETES-FOOT [...] this encounter Medical Devices Implanted Type Area Fixed Wing Aircraft Crew Chief Device Identifier Shelf Expiration Date Model / Serial / Lot Lens Intraoc 24.0 - [id number] - [id number] Implanted:Qty: 1 on 06/01/2017 by Nikhil Bolton MD at OR [facility] Left: Eye [employer] 07/17/2021 [id number] / [id number] / [id number] Lens Intraoc 24.0 - [id number] - [id number] Implanted:Qty: 1 on 06/08/2017 by Nikhil Bolton MD at OR [facility] Right: Eye [employer] 07/17/2021 [id number] / [id number] / [id number] documented as of this encounter Visit Diagnoses Diagnosis HTN, goal below 130/80- Primary Unspecified essential hypertension Coronary artery disease involving [place] coronary artery of [place] heart without angina pectoris Nonrheumatic aortic valve stenosis Aortic valve disorders PAF (paroxysmal atrial fibrillation) (HCC) Atrial fibrillation 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 radiculopathy Lumbosacral spondylosis without myelopathy documented in this encounter Advance Directives Documents on File Type Date Recorded 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 Care Teams Spaghetti Machine Operator Relationship Specialty Start Date End Date Johnnie Newby MD [address] [place] [address] PCP - General Family Medicine 09/13/20 documented as of this encounter"
--- OUTSIDE RECORDS SUMMARY | 2023-04-15 00:22 | External Medical Summary ---
Author Name Unknown Address Unknown Organization K01:LABORATORY [facility] - [address] [place] [address] Laboratory Report Ordering Provider Test Date Status ALEX MARIE 12/17/2022 13:24:02 Final Observation Date Value Abnormality Reference (Units ) Status Ferritin 12/17/2022 13:24:02 27 Below low normal 30- 400 (ng/mL) Final Performing Location LAB[facility]ATORY [facility] - [address] [place] [address]
--- OUTSIDE RECORDS SUMMARY | 2023-04-15 00:22 | External Medical Summary ---
Author Name Unknown Address Unknown Organization K01:LABORATORY [facility] - [address] [place] [address] Laboratory Report Ordering Provider Test Date Status HERMILO BADILLO 12/17/2022 13:24:02 Final Observation Date Value Abnormality Reference (Units ) Status Automated InsightsODE SPECIMEN-LAV 12/17/2022 13:24:02 Freezing of extracted DNA, whole blood and/or serum. Final Performing Location LABORATORY [facility] - [address] [place] [address]
--- OUTSIDE RECORDS SUMMARY | 2023-04-15 00:22 | External Medical Summary | Summary of Care ---
Author Name Unknown Organization [facility] Address [address] [place] [address] Phone [phone] Care Team Providers Care Wind Farm Engineer Name Role Phone Johnnie Newby MD Primary Care Provider [phone] Reason for Visit * Reason Comments Medication Refill Roflumilast Encounter Details Date Type Department Care Team Description 11/24/2022 Refill Pulmonary Medicine, [facility] [address] [facility] [place] [id number] [facility]rum [facility] [address] [facility] [address] COPD, group D, by GOLD 2017 classification ([facility])* Allergies Active Allergy Reactions Severity Noted Date Comments Acetaminophen 05/06/2005 headaches documented as of this encounter (statuses as of 11/26/2022) Medications Medication Sig Dispensed Refills Start Date End Date Status DAILY MULTIVITAMIN PO TABS with lycopene 0 Active BUSPAR 15 MG PO TABS Take by mouth. 0 Active ASPIRIN EC 81 MG PO TBECIndications:CAD in gambell artery 1 TABLET DAILY 99 Tab 99 4 Active [place]-3 Fatty Acids (FISH OIL) 1000 MG Capsule [...] EMERGENCY) TEST ONCE DAILY 100 Strip 5 8 Active Ventolin HFA 108 (90 Base) MCG/ACT Inhalation Aerosol SolutionIndications :COPD, moderate ([facility]) Take 2 [...] 90 Capsule 1 3 10/02/19 24 Active Aspirin-Dipyridamol e ER 25-200 MG Oral Capsule Extended Release 12 Hour (Aggrenox)Indicatio ns:CVA, old, ataxia TAKE ONE CAPSULE BY MOUTH EVERY MORNING 120 Capsule 0 3 10/02/19 24 Active Isosorbide Mononitrate ER 60 MG Oral Tablet Extended Release 24 Hour (Imdur)Indications: Coronary artery disease involving gambell coronary artery without angina pectoris TAKE ONE [...] MOUTH EVERY MORNING 270 Capsule 0 3 08/17/19 24 Active FLUoxetine HCl 20 MG Oral Capsule (PROzac) TAKE THREE CAPSULES BY MOUTH EVERY MORNING 270 Capsule 0 3 07/08/19 24 Active Additional Information Patient not taking.Reported on 11/25/2022 Tiotropium [place] Monohydrate 18 MCG Inhalation Capsule (Spiriva) INHALE [...] MOUTH EVERY DAY 90 Tablet 3 2 02/14/20 23 Active busPIRone HCl 15 MG Oral Tablet [...] 90 Tablet 1 3 11/26/19 24 Active Roflumilast 500 MCG Oral Tablet (Daliresp) TAKE ONE TABLET BY MOUTH EVERY MORNING 30 Tablet 9 3 11/25/19 23 Discontinu ed(Refill) Hospital, Clinic, or Other [...] as of this encounter (statuses as of 11/26/2022) Active Problems Problem Noted Date Overweight (BMI [...] esophagitis 01/05/2014 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 documented as of this encounter (statuses as of 11/26/2022) Resolved Problems Problem Noted Date Resolved Date [...] as of this encounter (statuses as of 11/26/2022) Immunizations Name Administration Dates Next Due COVID-19 mRNA, LNP-s, No Pre serve, 2-Dose Series ([employer]) 02/10/2022,07/13/2020,06/17/2020 Pneumococcal Conjugate Vacc, 13 Valent (Prevnar) [...] encounter Miscellaneous Notes * Telephone Encounter - Hi Dave MD - 11/26/2022 1:28 PM EDT Signed Prescriptions: Disp Refills Roflumilast 500 MCG Oral Tablet (Daliresp) 90 Tab*1 Sig: TAKE ONE TABLET BY MOUTH EVERY MORNING Authorizing Provider: HI DAVE * Telephone Encounter - Celina Abarca LPN - 11/26/2022 11:48 AM EDTPending Prescriptions: Disp Refills Roflumilast 500 MCG Oral Tablet (Daliresp) 90 Tab*1 Sig: TAKE ONE TABLET BY MOUTH EVERY MORNING * Telephone Encounter - Celina Abarca LPN - 11/26/2022 11:47 AM EDT Pt last seen 05/01/22 and was to have a 6 month follow up visit. Please schedule return. * Telephone Encounter - Celina Abarca LPN - 11/26/2022 11:45 AM EDT Did you pend patient's preferred pharmacy and medication before forwarding? Yes Pharmacy: [facility] Pending Prescriptions: Disp Refills Roflumilast 500 MCG Oral Tablet (Daliresp)30 Tab*11 Sig: TAKE ONE TABLET BY MOUTH EVERY MORNING Last Visit: 05/01/2022 (in office), 05/07/2020 (telemedicine) Next Visit: Visit date not found If no future appointments scheduled, and last appointment is greater than a year ago, please schedule patient for a follow-up appointment Last date the medication was ordered: 05/06/22 Is this request for a controlled substance?No [...] Visit Cardiology Warren Montoya, DO [address] [place] [address] 12/17/2022 Office Visit Podiatry Bettye Herrmann DPM [address] [place], [place] [phone] 12/31/2022 Appointment Radiology 12/31/2022 Office Visit Vascular Surgery Cyril Thompson MD [address] [place] [address] 01/13/2023 Hospital Encounter Surgery [facility], [address] [place] [address] 01/13/2023 Surgery Surgery [facility], [address] [place] [address] L-/S-SPINE PARAVERTEBRAL FACET INJ, 1 LEVEL 02/11/2023 Office Visit Sleep Disorders Hui Bishop CRNP [address] [place] [address] 07/08/2023 Imaging Radiology 07/13/2023 Office Visit Radiation Oncology Shawna Johnson MD [address] [place] [address] [place] [address] Scheduled Procedures Name Priority Associated Diagnoses Date/Ti [...] Additional history exists CKD HGB USE SMARTSET 27998 07/17/202207/17, 07/17/2021, 12/02/2020, Additional history exists GFR [...] exists DISCUSS TOBACCO CESSATION (REFER TO SMARTSET #2465) 05/01/2023 05/01/2022, 02/13/2022 CKD PHOS USE SMARTSET 60913 06/05/202305/20, 06/03/2021, 06/04/2020, Additional history exists DIABETES-FOOT [...] this encounter Medical Devices Implanted Type Area Process Safety Engineer Device Identifier Shelf Expiration Date Model / Serial / Lot Lens Intraoc 24.0 - [id number] - [id number] Implanted:Qty: 1 on 06/01/2017 by Nikhil Bolton MD at OR [facility] Left: Eye [employer] 07/17/2021 [id number] / [id number] / [id number] Lens Intraoc 24.0 - [id number] - [id number] Implanted:Qty: 1 on 06/08/2017 by Nikhil Bolton MD at OR [facility] Right: Eye [employer] 07/17/2021 [id number] / [id number] / [id number] documented as of this encounter Visit Diagnoses Diagnosis COPD, group D, by GOLD 2017 classification (HCC)- Primary 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 radiculopathy Lumbosacral spondylosis without myelopathy documented in this encounter Advance Directives Documents on File Type Date Recorded Patient Application Development Liaison Expl anation Advance Directives and Yu Watkins [...] and were consensually agreed upon. Care Teams Wind Farm Engineer Relationship Specialty Start Date End Date Johnnie Newby MD [address] [place] [address] PCP - General Family Medicine 09/13/20 documented as of this encounter
--- OUTSIDE RECORDS SUMMARY | 2023-04-15 00:22 | External Medical Summary ---
Author Name Unknown Address Unknown Organization [id number]:[facility] [place] [address] [place] [address] Laboratory Report Ordering Provider Test Date Status ALEX MARIE 12/17/2022 13:24:02 Final Observation Date Value Abnormality Reference (Units ) Status Iron 12/17/2022 13:24:02 33 Below low normal 45-176 (ug/dL) Final Iron-binding capacity 12/17/2022 13:24:02 317 250-425 (ug/dL) Final Transferrin Sat % 12/17/2022 13:24:02 10 Below low normal 15-55 (%) Final Performing Location LABORATORY C - [address] [place] [address]
--- OUTSIDE RECORDS SUMMARY | 2023-04-15 00:22 | External Medical Summary ---
Author Name Unknown Address Unknown Organization [id number]:LABORATORY [facility] [place] [place] - [address] [place] [address] [place] [address] Laboratory Report Ordering Provider Test Date Status ALEX MARIE 12/17/2022 13:24:02 Final Observation Date Value Abnormality Reference (Units ) Status TSH 12/17/2022 13:24:02 2.00 0.27-4.20 (uIU/mL) Final Performing Location LABORATORY [facility] - [address] [place] [address]
--- OUTSIDE RECORDS SUMMARY | 2023-04-15 00:22 | External Medical Summary ---
Author Name Unknown Address Unknown Organization [id number]:LABORATORY [facility] - [address] [place] [address] Laboratory Report Ordering Provider Test Date Status ALEX MARIE 12/17/2022 13:24:02 Final Observation Date Value Abnormality Reference (Units ) Status WBC, Total 12/17/2022 13:24:02 6.97 4.00-10.8 0 (K/uL) Final RBC 12/17/2022 13:24:02 3.59 4.50-5.25 (M/uL) Final Hemoglobin 12/17/2022 13:24:02 9.8 Below low normal 14 .0-16.8 (g/dL) Final HCT 12/17/2022 13:24:02 32.2 Below low normal 40. 0-48.4 (%) Final MCV 12/17/2022 13:24:02 89.7 82.0-99.5 (fL) Final MCH 12/17/2022 13:24:02 27.3 27.0-34.0 (pg) Final MCHC 12/17/2022 13:24:02 30.4 32.0-36.0 (g/dL) Final RDW 12/17/2022 13:24:02 18.4 11.5-15.5 (%) Final Platelets 12/17/2022 13:24:02 257 140-400 (K /uL) Final MPV 12/17/2022 13:24:02 9.2 6.6-11.1 ( fL) Final [facility] [address] [place] [address]
--- OUTSIDE RECORDS SUMMARY | 2023-04-15 00:22 | External Medical Summary | Summary of Care ---
Author Name Unknown Organization [facility] Address [address] [place] [address] Phone [phone] Care Team Providers Care Visual Merchandising Associate Name Role Phone Johnnie Newby MD Primary Care Provider [phone] Reason for Visit * Reason Onset Date Comments Follow Up 11/26/2022 Encounter Details Date Type Department Care Team Description 11/26/2022 Telephone Interventional Pain Center, [facility] [address] [place] [address] Cousins, Slick Fermin, [address] [facility] [address] [facility] [place] [address] Follow Up Allergies Active Allergy Reactions Severity Noted Date Comments Acetaminophen 05/06/2005 headaches documented as of this encounter (statuses as of 11/26/2022) Medications Medication Sig Dispensed Refills Start Date End Date Status DAILY MULTIVITAMIN PO TABS with lycopene 0 Active BUSPAR 15 MG PO TABS Take by mouth. 0 Active ASPIRIN EC 81 MG PO TBECIndications:CAD in [place] artery 1 TABLET DAILY 99 Tab 99 04/21/2013 Active [place]-3 Fatty Acids (FISH OIL) 1000 MG Capsule [...] A1c goal of less than 7.0% ([facility]) TEST ONCE DAILY 100 Strip 5 03/02/2018 Active Ventolin HFA 108 (90 Base) MCG/ACT Inhalation Aerosol SolutionIndications: COPD, moderate ([facility]) Take 2 Puffs by mouth 4 times [...] LABS* 90 Capsule 1 10/02/2022 4 Active Aspirin-Dipyridamole ER 25-200 MG Oral Capsule Extended Release 12 Hour (Aggrenox)Indication s:CVA, old, ataxia TAKE ONE CAPSULE BY MOUTH EVERY MORNING 120 Capsule 0 10/02/2022 4 Active Isosorbide Mononitrate ER 60 MG Oral Tablet Extended Release 24 Hour (Imdur)Indications:C oronary artery disease involving king salmon coronary artery without angina pectoris TAKE ONE [...] BY MOUTH EVERY MORNING 270 Capsule 0 08/17/2022 4 Active FLUoxetine HCl 20 MG Oral Capsule (PROzac) TAKE THREE CAPSULES BY MOUTH EVERY MORNING 270 Capsule 0 07/08/2022 4 Active Additional Information Patient not taking.Reported on 11/25/2022 Tiotropium [place] Monohydrate 18 MCG Inhalation Capsule (Spiriva) [...] on 11/25/2022 Roflumilast 500 MCG Oral Tablet (Daliresp) TAKE ONE TABLET BY MOUTH EVERY MORNING 30 Tablet 9 05/01/2022 4 Active Fluticasone-Salmeter ol 230-21 MCG/ACT Inhalation Aerosol (Advair)Indications: COPD, group B, by GOLD 2017 classification ([facility]) INHALE TWO PUFFS BY MOUTH EVERY [...] ANXIETY 90 Tablet 0 04/03/2022 3 Active Atorvastatin Calcium 80 MG Oral Tablet (Lipitor) TAKE ONE TABLET BY MOUTH AT BEDTIME 90 Tablet 1 03/31/2022 3 Active risperiDONE 0.25 MG Oral Tablet (RisperDAL) TAKE ONE TABLET BY MOUTH EVERY NIGHT AT BEDTIME 90 Tablet 0 01/29/2022 3 Active Additional Information Patient not taking.Reported on 11/25/2022 Metoprolol Succinate ER 25 MG Oral Tablet Extended Release 24 Hour (toPROL XL)Indications:SVT (supraventricular tachycardia) (HCC),NSVT (nonsustained ventricular tachycardia) (HCC) TAKE ONE TABLET BY MOUTH EVERY DAY 90 Tablet 3 01/26/2022 3 Active busPIRone HCl 15 MG Oral Tablet [...] Additional Information Patient not taking.Reported on 11/25/2022 Hospital, Clinic, or Other Facility Administered Medication [...] esophagitis 01/05/2014 Coronary artery disease invo lving king salmon coronary artery of king salmon heart without angina pectoris 11/27/2013 Tobacco abuse [...] mRNA, LNP-s, No Pre serve, 2-Dose Series ([employer]) 02/10/2022,07/13/2020,06/17/2020 Pneumococcal Conjugate Vacc, 13 Valent (Prevnar) [...] encounter Miscellaneous Notes * Addendum Note - Slick Stanley DO - 11/26/2022 11:04 AM EDTAddended by: SLICK STANLEY on: 11/26/2022 11:04 AM Modules accepted: Orders * Telephone Encounter - Slick Stanley DO - 11/26/2022 11:03 AM EDT Will schedule confirmatory injections. * Telephone Encounter - Betty Hagen - 11/26/2022 11:02 AM EDT Patient states he had 100% relief that lasted 6-7 hours. documented in this encounter Plan of Treatment Upcoming Encounters Date Type Specialty Care Team Description 12/08/2022 Office Visit Cardiology Warren Montoya DO [address] [place] [address] 12/17/2022 Office Visit Podiatry Bettye Herrmann DPM [address] [place], [place] [address] [address] 12/31/2022 Appointment Radiology 12/31/2022 Office Visit [facility] [address] [facility] [place] [address] 02/11/2023 Office Visit Sleep Disorders Hui Bishop CRNP [address] [place] [address] 07/08/2023 Imaging Radiology 07/13/2023 Office Visit Radiation Oncology Shawna Johnson MD [address] [place] [phone] Scheduled Orders Name Type Priority Associated Diagnoses Orde r Schedule L-/S-SPINE PARAVERTEBRAL FACET INJ,1 LEVEL Procedures Routine 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 radiculopathy Expected: 12/10/2022, Expires: 12/28/2023 L-/S-SPINE PARAVERTEBRL FACET INJ,2 LEVELS Procedures Routine 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 radiculopathy Expected: 12/10/2022, Expires: 12/28/2023 Scheduled Procedures Name Priority Associated Diagnoses Date/Ti me L-/S-SPINE PARAVERTEBRAL FAC ET INJ, 1 LEVEL 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 radiculopathy L-/S-SPINE PARAVERTEBRAL FAC ET INJ, 2 LEVELS 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 radiculopathy COLONOSCOPY FLEXIBLE PROXIMA L DIAGNOSTIC Recall History of colon polyps Health Maintenance Due Date Last Done Comments Depression Screening, Annual for Pts 12 and Over 05/31/2020 05/31/2019 COVID-19 Vaccine (4 - Pfizer series) 04/07/2022 02/10/2022, 07/13/2020, 06/17/2020 Albumin/Creatinine Ratio 06/04/20222 022, 04/04/2018, 11/10/2016, Additional history exists CKD HGB USE SMARTSET 44934 07/17/202207/17, 07/17/2021, 12/02/2020, Additional history exists GFR [...] 05/01/2023 05/01/2022, 02/13/2022 CKD PHOS USE SMARTSET 12571 06/05/202305/20, 06/03/2021, 06/04/2020, Additional history exists DIABETES-FOOT [...] this encounter Medical Devices Implanted Type Area Rail Specialist Device Identifier Shelf Expiration Date Model / Serial / Lot Lens Intraoc 24.0 - [id number] - [id number] Implanted:Qty: 1 on 06/01/2017 by Nikhil Bolton MD at OR [facility] Left: Eye [employer] 07/17/2021 [id number] / [id number] / [id number] Lens Intraoc 24.0 - [id number] - [id number] Implanted:Qty: 1 on 06/08/2017 by Nikhil Bolton MD at OR [facility] Right: Eye [employer] 07/17/2021 [id number] / [id number] / [id number] documented as of this encounter Visit Diagnoses Diagnosis 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 radiculopathy- Primary Lumbosacral spondylosis without myelopathy documented in this encounter Advance Directives Documents on File Type Date Recorded Patient Thrill Performer Expl anation Advance Directives and Livin babatunde [...] and were consensually agreed upon. Care Teams Visual Merchandising Associate Relationship Specialty Start Date End Date Johnnie Newby MD [address] [place] [address] PCP - General Family Medicine 09/13/20 documented as of this encounter
--- OUTSIDE RECORDS SUMMARY | 2023-04-15 00:22 | External Medical Summary ---
Author Name Unknown Address Unknown Organization [id number]:LAB[facility]ATORY [facility] - [address] [place] [address] Laboratory Report Ordering Provider Test Date Status ALEX MARIE 12/17/2022 13:24:02 Final Observation Date Value Abnormality Reference (Units ) Status BUN 12/17/2022 13:24:02 25 Above high normal 6-20 (mg/dL) Final Creatinine 12/17/2022 13:24:02 1.6 Above high normal 0.6-1.2 (mg/dL) Final Glomerular filtration rate/1.73 sq M.predicted [Volume Rate/Area] in Serum, Plasma or Blood by Creatinine-based formula (CKD-EPI) 12/17/2022 13:24:02 44 Below low normal >=60 (mL/min) Final eGFR is calculated based on the CKD-EPI 2020 equation SODIUM 12/17/2022 13:24:02 143 135-146 (m mol/L) Final Potassium 12/17/2022 13:24:02 4.7 3.5-5.1 (m mol/L) Final Cl 12/17/2022 13:24:02 105 98-107 (mm ol/L) Final CO2 12/17/2022 13:24:02 24 22-32 (mmo l/L) Final Anion gap 12/17/2022 13:24:02 14 7-15 (mmol /L) Final Glucose 12/17/2022 13:24:02 86 70-120 (mg /dL) Final Albumin 12/17/2022 13:24:02 3.8 3.8-5.0 (g /dL) Final AST (Aspartate aminotransferase) 12/17/2022 13:24:02 17 10-50 (U/L) Fin al Alk Phos 12/17/2022 13:24:02 132 Above high normal 35 -130 (U/L) Final Bilirubin, Total 12/17/2022 13:24:02 <0.2 <=1 .2 (mg/dL) Final Calcium 12/17/2022 13:24:02 9.3 8.4-10.2 ( mg/dL) Final Protein 12/17/2022 13:24:02 6.3 6.0-8.3 (g /dL) Final ALT (Alanine aminotransferase) 12/17/2022 13:24:02 13 10-50 (U/L) Michel palafox Performing Location LABORATORY [place] [facility] 0 - [address] [facility] [address]
--- OUTSIDE RECORDS SUMMARY | 2023-04-15 00:22 | External Medical Summary ---
Author Name Unknown Address Unknown Organization [id number]:LABORATORY [facility] [place] - [address] [place] [address] Laboratory Report Ordering Provider Test Date Status HERMILO BADILLO 12/17/2022 13:24:02 Final Observation Date Value Abnormality Reference (Units ) Status MYCODE SPECIMEN-SST 12/17/2022 13:24:02 Freezing of extracted DNA, whole blood and/or serum. Final Performing Location LAB[facility]ATORY [facility] [place] - [address] [place] [address]
--- OUTSIDE RECORDS SUMMARY | 2023-04-15 00:23 | External Medical Summary | Summary of Care ---
Author Name Unknown Organization [facility] Address [address] [place] [address] Phone [phone] Care Team Providers Care Trauma Manager Name Role Phone Johnnie Newby MD Primary Care Provider [phone] Reason for Visit * Reason Comments Follow Up B feet Encounter Details Date Type Department Care Team Description 11/05/2022 Office Visit Podiatry [facility] [address] [place] [address] Bettye Herrmann, DPM [address] [place] [address] Pain in toe of left foot*; Pre-ulcerative calluses; Bursitis of left foot Allergies Active Allergy Reactions Severity Noted Date Comments Acetaminophen 05/06/2005 headaches documented as of this encounter (statuses as of 11/05/2022) Medications Medication Sig Dispensed Refills Start Date End Date Status DAILY MULTIVITAMIN PO TABS with lycopene 0 Active BUSPAR 15 MG PO TABS Take by mouth. 0 Active ASPIRIN EC 81 MG PO TBECIndications:CAD in [place] artery 1 TABLET DAILY 99 Tab 99 04/21/2013 Active [place]-3 Fatty Acids (FISH OIL) 1000 MG Capsule [...] hemoglobin A1c goal of less than 7.0% ([facility]) TEST ONCE DAILY 100 Strip 5 03/02/2018 Active Ventolin HFA 108 (90 Base) MCG/ACT Inhalation Aerosol SolutionIndications: COPD, moderate ([facility]) Take 2 Puffs by mouth 4 [...] 24 Hour (Imdur)Indications:C oronary artery disease involving [place] coronary artery without angina pectoris TAKE ONE [...] MORNING 100 Tablet 1 09/03/2022 4 Active risperiDONE 0.25 MG Oral Tablet (RisperDAL) TAKE ONE TABLET BY MOUTH AT BEDTIME 90 Tablet 0 08/17/2022 4 Active Mirtazapine 15 MG Oral Tablet (Remeron) TAKE ONE-HALF TABLET BY MOUTH EVERY NIGHT 45 Tablet 0 08/17/2022 4 Active FLUoxetine HCl 20 MG Oral Capsule (PROzac) TAKE THREE CAPSULES BY MOUTH EVERY MORNING 270 Capsule 0 08/17/2022 4 Active FLUoxetine HCl 20 MG Oral Capsule (PROzac) TAKE THREE CAPSULES BY MOUTH EVERY MORNING 270 Capsule 0 07/08/2022 4 Active Tiotropium [place] Monohydrate 18 MCG Inhalation Capsule (Spiriva) INHALE ONE CAPSULE VIA HANDIHALER EVERY MORNING. DO NOT SWALLOW CAPSULE. 90 Capsule 3 06/26/2022 4 Active Mirtazapine 15 MG Oral Tablet (Remeron) TAKE ONE-HALF TABLET (7.5 MG.) BY MOUTH EVERY NIGHT 45 Tablet 0 05/06/2022 4 Active risperiDONE 0.25 MG Oral Tablet (RisperDAL) TAKE ONE TABLET BY MOUTH EVERY NIGHT AT BEDTIME 90 Tablet 0 05/06/2022 4 Active Roflumilast 500 MCG Oral Tablet (Daliresp) TAKE ONE TABLET BY MOUTH EVERY MORNING 30 Tablet 9 05/01/2022 4 Active Fluticasone-Salmeter ol 230-21 MCG/ACT Inhalation Aerosol (Advair)Indications: COPD, group B, by GOLD 2017 classification ([facility]) INHALE TWO PUFFS BY MOUTH EVERY MORNING AND INHALE TWO PUFFS BY MOUTH AT BEDTIME, RINSE MOUTH AFTER USE 36 g 3 04/17/2022 3 Active FLUoxetine HCl 20 MG Oral Capsule (PROzac) TAKE THREE CAPSULES BY MOUTH EVERY MORNING 270 Capsule 0 04/03/2022 3 Active busPIRone HCl 15 MG Oral [...] BEDTIME 90 Tablet 0 01/29/2022 3 Active Metoprolol Succinate ER 25 MG Oral Tablet Extended Release 24 Hour (toPROL XL)Indications:SVT (supraventricular tachycardia) (HCC),NSVT (nonsustained ventricular tachycardia) (HCC) TAKE ONE TABLET BY MOUTH EVERY DAY 90 Tablet 3 01/26/2022 3 Active Hospital, Clinic, or Other Facility Administered [...] 2.5 mg NEBULIZER PRN 02/13/2022 02/13/2023 Active bupivacaine (Sensorcaine) 0.5 % inj 2.5 mgIndications:Pain in toe of left foot,Bursitis of left foot 2.5 mg IJ ONCE 11/05/2022 11/05/2022 Ended dexamethasone sodium phosphate 20 MG/5ML inj 2 mgIndications:Pain in toe of left foot,Bursitis of left foot 2 mg IJ ONCE 11/05/2022 11/05/2022 Ended documented as of this encounter (statuses as of 11/05/2022) Active Problems Problem Noted Date Overweight (BMI [...] esophagitis 01/05/2014 Coronary artery disease invo lving [place] coronary artery of [place] heart without angina pectoris 11/27/2013 Tobacco abuse 11/27/2013 HTN, goal below 130/80 03/06/2009 Overview: Modified per HTN protocol #16. documented as of this encounter (statuses as of 11/05/2022) Resolved Problems Problem Noted Date Resolved Date [...] as of this encounter (statuses as of 11/05/2022) Immunizations Name Administration Dates Next Due COVID-19 mRNA, LNP-s, No Pre serve, 2-Dose Series ([employer]) 02/10/2022,07/13/2020,06/17/2020 Pneumococcal Conjugate Vacc, 13 Valent [...] Progress Notes * Bettye Herrmann, DPM - 11/05/2022 9:48 AM EDT Images from the original note were not included. Podiatry Established Note [employer] Name: Walter Don : 1945 Date: 11/05/2022 REASON FOR VISIT: chronic left first toe pain follow up, had MRI SUBJECTIVE: This patient is a 77 year old male who presents today for follow up of chronic pain to the left first toe. Since his last visit, he did have an MRI. He continues to have pain to the left first toe. Pain is near the callus but goes up towards the dorsal surface of the toe. This is much worse with pressure. He does have a history of neuropathy. He does not routine check his blood sugars. Past Medical History: Diagnosis Date Asthma Benign [...] (HCC) 10/23/2014 ICD-10 update of inactive term ALLERGIES: Review of patient's allergies indicates: Allergen Reactions Tylenol [Acetaminophen] headaches REVIEW OF SYSTEMS: CONSTITUTIONAL: No fever FOCUSED PODIATRIC EXAM: Vascular: Pedal pulses palpable including dorsalis pedis and posterior tibial artery at 2/4 left. Neurologic: Sensation (light touch) intact to the left foot. Musculoskeletal: Chronic contracture of the left hallux. No pain with motion of this joint. Pain is also reported with palpation of the left hallux, plantar callus as well as the dorsal hallux, medial aspect. Dermatological: Skin temperature, texture, and turgor are within normal limits. Hyperkeratotic skin to the plantar medial hallux. DIAGNOSTIC STUDIES: Results MRI FOOT LEFT WO CONTRAST [MRFOOTLT] (Spec. #[id number]) (Order [id number]) Exam End Date Exam End Time 10/22/2022 10:50 AM MRI FOOT LEFT WO CONTRAST Order: [id number] Status: Final result Visible to patient: Yes (seen) Next appt: 11/12/2022 at 09:20 AM in *[facility]* (Pb Christopher Cousins, DO) Dx: Pain in toe of left foot 0 Result Notes Details Reading Physician Reading Date Result Priority Torri Cyril PinedaDO [phone] 10/22/2022 Narrative & Impression EXAM MR Left Foot - 10/22/2022 10:50 am HISTORY left first toe pain TECHNIQUE Multi-planar, multi-sequence MR imaging of the left foot was performed without contrast. COMPARISON Radiographs 10/14/2022 FINDINGS Joints: No significant OA. Bone: No fracture. Small intraosseous ganglion cyst 1st metatarsal head at medial collateral ligament attachment. Bipartite fibular sesamoid with reactive edema across the syndesmosis. Muscle: Severe diffuse intrinsic foot muscle atrophy. Tendons: Visualized flexor, extensor, and peroneal tendons are intact. Plantar Plates: Intact Ligaments: Lisfranc ligament is intact. Neurovascular: No hernandez's neuroma. Bursa: No intermetatarsal bursitis. Soft Tissues: Patchy dorsal forefoot subcutaneous edema, nonspecific but may represent dependent edema. IMPRESSION IMPRESSION 1. No acute findings 1st toe 2. Bipartite fibular sesamoid with reactive edema across the syndesmosis. 3. Severe diffuse intrinsic foot muscle atrophy Specimen Collected: 10/22/22 11:04 Last Resulted: 10/22/22 11:02 Order Details View Encounter Lab and Collection Details Routing Result History View Encounter Conversation Result Care Coordination Patient Communication Add Comments Seen Back to Top PACS Images Show images for MRI FOOT LEFT WO CONTRAST PACS Images - Remote and MAC Users Show Images Signed by Resident (Preliminary Read) Staff Radiologist (Final Read) Date Time Phone Pager TORRI PINEDA 10/22/2022 11:02 ASSESSMENT: 1. Pain in toe of left foot 2. Pre-ulcerative calluses x 1 left foot 3. Bursitis of left foot PLAN: I reviewed his MRI report with him. Given callus area, I think it is reasonable to try a steroid injection in the soft tissue below to see if this calms any hypersensitivity. He was agreeable to try this today. I recommended a steroid injection of the left first toe today. I reviewed all risks, benefits, alternatives, and complications to this procedure with the patient. Risks include but are not limited to: pain, bleeding, bruising, infection, atrophy or thinning of the soft tissue, an increase in blood glucose, allergic reaction, steroid flare, recurrence of condition, and possibility of no improvement in condition. Non OR time Out: Time out was initiated under direction and supervision of provider Bettye Herrmann DPM. Correct patient identity - Yes Correct side and site - Yes Procedure matches verbalized consent -Yes Correct patient position - Yes Availability of correct implants and any special equipment or special requirements - Yes Time out occurred prior to procedure start - Yes Prophylactic antibiotic timing confirmed - N/A Witness present & agrees with the time out process. The left first toe was prepped with alcohol. Injection was performed using a 25 gauge needle. Injection consisted of: 0.5mL of 4mg/ml dexamethasone sodium phosphate 0.5mL of 0.5% sensorcaine plain Injection was administered into the left first toe, dorsal medial aspect extending to the area beneath the callus. The patient tolerated the injection well. A dry dressing was applied over injection site. The patient was instructed to rest and limit very strenuous activity for 24 hours. Follow up: routine foot care Bettye Herrmann DPM documented in this encounter Nursing Notes * Odalis oJel, SUMEET - 11/05/2022 9:46 AM EDT B feet. Last visit had nail trim and callus/corn treatment. MRI done on L big toe. Continues to have pain in L big toe. documented in this encounter Plan of Treatment Upcoming Encounters Date Type Specialty Care Team Description 11/12/2022 Office Visit Pain Medicine [facility] Pb Fermin, DO [address] [place] [address] 12/08/2022 Office Visit Cardiology Warren Montoya, DO [address] [place] [address] 12/17/2022 Office Visit Podiatry Bettye Herrmann DPM [address] [place], [place] [id number] 12/31/2022 Appointment Radiology 12/31/2022 Office Visit Vascular Surgery Cyril Thompson MD [address] [place] [address] 02/11/2023 Office Visit Sleep Disorders Hui Bishop CRNP [address] [place] [address] 07/08/2023 Imaging Radiology 07/13/2023 Office Visit Radiation Oncology Shawna Johnson MD [address] [place] [address] [place] [address] Scheduled Procedures Name Priority Associated Diagnoses Date/Ti me COLONOSCOPY FLEXIBLE PROXIMAL DIAGNOSTIC Recall History of colon polyps Health Maintenance Due Date Last Done Comments Depression Screening, Annual for Pts 12 and Over 05/31/2020 05/31/2019 COVID-19 Vaccine (4 - Pfizer series) 04/07/2022 02/10/2022, 07/13/2020, 06/17/2020 Albumin/Creatinine Ratio 06/04/2022 022, 04/04/2018, 11/10/2016, Additional history exists CKD HGB USE SMARTSET 34414 07/17/202207/17, 07/17/2021, 12/02/2020, Additional history exists GFR [...] 05/01/2023 05/01/2022, 02/13/2022 CKD PHOS USE SMARTSET 76712 06/05/202305/20, 06/03/2021, 06/04/2020, Additional history exists DIABETES-FOOT [...] this encounter Medical Devices Implanted Type Area Back Hoe Machine Operator Device Identifier Shelf Expiration Date Model / Serial / Lot Lens Intraoc 24.0 - [id number] - [id number] Implanted:Qty: 1 on 06/01/2017 by Nikhil Bolton MD at OR [facility] Left: Eye BAUSCH & LOMB 07/17/2021 [id number] / [id number] / [id number] Lens Intraoc 24.0 - [id number] - [id number] Implanted:Qty: 1 on 06/08/2017 by Nikhil Bolton MD at OR [facility] Right: Eye BAUSCH & LOMB 07/17/2021 [id number] / [id number] / [id number] documented as of this encounter Visit Diagnoses Diagnosis Pain in toe of left foot- Primary Pain in limb Pre-ulcerative calluses Corns and callosities Bursitis of left foot documented in this encounter Administered Medications Inactive Administered Medications - up to 3 most recent administrations Medication Order MAR Action Action Date Dose Rate Site bupivacaine (Sensorcaine) 0.5 % inj 2.5 mg 2.5 mg, Injection, ONCE, On Rebecca 11/05/22 at 1045, For 1 dose Given 11/05/2022 1:27 PM EDT 2.5 mg Foot Left dexamethasone sodium phosphate 20 MG/5ML inj 2 mg 2 mg, Injection, ONCE, On Rebecca 11/05/22 at 1045, For 1 dose, Protect from Light Given 11/05/2022 1:28 PM EDT 2 mg Foot Left documented in this encounter Advance Directives Documents on File Type Date Recorded Patient Manager Of Training And Development Expl 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 Care Teams Trauma Manager Relationship Specialty Start Date End Date Johnnie Newby MD [address] [place] [address] PCP - General Family Medicine 09/13/20 documented as of this encounter
--- OUTSIDE RECORDS SUMMARY | 2023-04-15 00:23 | External Medical Summary | Summary of Care ---
Author Name Unknown Organization [facility] Address [address] [place] [address] Phone [phone] Care Team Providers Care Traffic Safety Administrator Name Role Phone Johnnie Newby MD Primary Care Provider [phone] Encounter Details Date Type Department Care Team Description 11/18/2022 Patient Reported Data Patient Survey Ortho OBERD Allergies Active Allergy Reactions Severity Noted Date Comments Acetaminophen 05/06/2005 headaches documented as of this encounter (statuses as of 11/18/2022) Medications Medication Sig Dispensed Refills Start Date End Date Status DAILY MULTIVITAMIN PO TABS with lycopene 0 Active BUSPAR 15 MG PO TABS Take by mouth. 0 Active ASPIRIN EC 81 MG PO TBECIndications:CAD in [place] artery 1 TABLET DAILY 99 Tab 99 04/21/2013 Active [place]-3 Fatty Acids (FISH OIL) 1000 MG Capsule [...] A1c goal of less than 7.0% ([facility]) TEST ONCE DAILY 100 [...] 24 Hour (Imdur)Indications:C oronary artery disease involving [place] coronary artery without angina pectoris TAKE ONE [...] 270 Capsule 0 07/08/2022 4 Active Tiotropium [place] Monohydrate 18 MCG Inhalation Capsule (Spiriva) INHALE [...] group B, by GOLD 2017 classification ([facility]) INHALE TWO PUFFS BY [...] MOUTH EVERY DAY 90 Tablet 3 01/26/2022 Active Hospital, Clinic, or Other Facility Administered [...] as of this encounter (statuses as of 11/18/2022) Active Problems Problem Noted Date Overweight (BMI [...] long-term current use of insulin 08/02/2018 Old [place] (myocardial infarction) 8 YISSEL treated with BiPAP 01/03/2018 Overview: Wears BiPAP at night Type 2 diabetes mellitus with hemoglobin A1c goal of less than 8.0% 10/23/2014 Overview: ICD-10 update of inactive term CVA, old, 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 PTSD (post-traumatic stress disorder) Gastroesophageal reflux disease without esophagitis 01/05/2014 Coronary artery disease invo lving [place] coronary artery of [place] heart without angina pectoris 11/27/2013 Tobacco abuse 11/27/2013 HTN, goal below 130/80 03/06/2009 Overview: Modified per HTN protocol #16. documented as of this encounter (statuses as of 11/18/2022) Resolved Problems Problem Noted Date Resolved Date [...] as of this encounter (statuses as of 11/18/2022) Immunizations Name Administration Dates Next Due COVID-19 [...] Montoya, DO [address] [place] [address] 12/09/2022 Hospital Encounter Surgery Pb Alexander, DO [address] [place] [address] 12/09/2022 Surgery Surgery Pb Alexander, DO [address] [place] [address] L-/S-SPINE PARAVERTEBRAL FACET INJ, 1 LEVEL 12/17/2022 Office Visit Podiatry Bettye Herrmann, DPM [address] [place] [address] 12/31/2022 Appointment Radiology 12/31/2022 Office Visit [facility] [address] [facility] [address] 02/11/2023 Office Visit Sleep Disorders Hui Bishop CRNP [address] [place] [address] 07/08/2023 Imaging Radiology 07/13/2023 Office Visit Radiation Oncology Shawna Johnson MD [address] [place] [address] Scheduled Procedures Name Priority Associated Diagnoses Date/Ti me L-/S-SPINE PARAVERTEBRAL FACET INJ, 1 LEVEL 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 radiculopathy 12/09/2022 12:40 PM EDT L-/S-SPINE PARAVERTEBRAL FACET INJ, 2 LEVELS 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 radiculopathy 12/09/2022 12:40 PM EDT COLONOSCOPY FLEXIBLE PROXIMAL DIAGNOSTIC Recall History of colon polyps Health Maintenance Due Date Last Done Comments Depression Screening, Annual for Pts 12 and Over 05/31/2020 05/31/2019 COVID-19 Vaccine (4 - Pfizer series) 04/07/2022 02/10/2022, 07/13/2020, 06/17/2020 Albumin/Creatinine Ratio 06/04/20222 022, 04/04/2018, 11/10/2016, Additional history exists CKD HGB USE SMARTSET 37789 07/17/202207/17, 07/17/2021, 12/02/2020, Additional history exists GFR [...] 05/01/2023 05/01/2022, 02/13/2022 CKD PHOS USE SMARTSET 46892 06/05/202305/20, 06/03/2021, 06/04/2020, Additional history exists DIABETES-FOOT [...] encounter Medical Devices Implanted Type Area Cook Pie Device Identifier Shelf Expiration Date Model / Serial / Lot Lens Intraoc 24.0 - [id number] - [id number] Implanted:Qty: 1 on 06/01/2017 by Nikhil Bolton MD at OR [facility] Left: Eye BAUSCH & LOMB 07/17/2021 [id number] / [id number] / [id number] Lens Intraoc 24.0 - [id number] - [id number] Implanted:Qty: 1 on 06/08/2017 by Nikhil Bolton MD at OR [facility] Right: Eye BAUSCH & LOMB 07/17/2021 [id number] / [id number] / [id number] documented as of this encounter Advance Directives Documents on File Type Date Recorded Patient Manager Sound Expl 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 Care Teams Traffic Safety Administrator Relationship Specialty Start Date End Date Johnnie Newby MD [address] [place] [address] PCP - General Family Medicine 09/13/20 documented as of this encounter
--- OUTSIDE RECORDS SUMMARY | 2023-04-15 00:23 | External Medical Summary | Summary of Care ---
Author Name Unknown Organization [facility] Address [address] [place] [address] Phone [phone] Care Team Providers Care Superior Court Justice Name Role Phone Johnnie Newby MD Primary Care Provider [phone] Encounter Details Date Type Department Care Team [...] ASPIRIN EC 81 MG PO TBECIndications:CAD in [place] artery 1 TABLET DAILY 99 Tab 99 04/21/2013 Active [place]-3 Fatty Acids (FISH OIL) 1000 MG Capsule [...] hemoglobin A1c goal of less than 7.0% ([facility]) TEST ONCE DAILY 100 Strip [...] 24 Hour (Imdur)Indications:C oronary artery disease involving [place] coronary artery without angina pectoris TAKE ONE [...] 270 Capsule 0 07/08/2022 4 Active Tiotropium [place] Monohydrate 18 MCG Inhalation Capsule (Spiriva) INHALE [...] COPD, group B, by GOLD 2017 classification ([facility]) INHALE TWO PUFFS BY MOUTH [...] long-term current use of insulin 08/02/2018 Old [place] (myocardial infarction) 8 YISSEL treated with BiPAP 01/03/2018 Overview: Wears BiPAP at night Type 2 diabetes mellitus with hemoglobin A1c goal of less than 8.0% 10/23/2014 Overview: ICD-10 update of inactive term CVA, old, 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 PTSD (post-traumatic stress disorder) Gastroesophageal reflux disease without esophagitis 01/05/2014 Coronary artery disease invo lving [place] coronary artery of [place] heart without angina pectoris 11/27/2013 Tobacco abuse [...] Montoya, DO [address] [place] [address] 12/09/2022 Hospital Encounter Surgery Pb Alexander, DO [address] [place] [address] 12/09/2022 Surgery Surgery Pb Alexander, DO [address] [place] [address] L-/S-SPINE PARAVERTEBRAL FACET INJ, 1 LEVEL 12/17/2022 Office Visit Podiatry Bettye Herrmann, DPM [address] [place] [address] 12/31/2022 Appointment Radiology 12/31/2022 Office Visit [facility] Surgery [facility]il Thompson [facility] [address] [facility] [address] 02/11/2023 Office Visit Sleep Disorders Hui Bishop CRNP [address] [place] [address] 07/08/2023 Imaging Radiology 07/13/2023 Office Visit Radiation Oncology Shawna Johnson MD [address] [place] [address] Scheduled Procedures Name Priority Associated Diagnoses Date/Ti [...] Additional history exists CKD HGB USE SMARTSET 92644 07/17/202207/17, 07/17/2021, 12/02/2020, Additional history exists GFR [...] 05/01/2023 05/01/2022, 02/13/2022 CKD PHOS USE SMARTSET 03515 06/05/202305/20, 06/03/2021, 06/04/2020, Additional history exists DIABETES-FOOT [...] this encounter Medical Devices Implanted Type Area Aoc Airspace Control Officer Device Identifier Shelf Expiration Date Model / Serial / Lot Lens Intraoc 24.0 - [id number] - [id number] Implanted:Qty: 1 on 06/01/2017 by Nikhil Bolton MD at OR [facility] Left: Eye BAUSCH & LOMB 07/17/2021 [id number] / [id number] / [id number] Lens Intraoc 24.0 - [id number] - [id number] Implanted:Qty: 1 on 06/08/2017 by Nikhil Bolton MD at OR [facility] Right: Eye BAUSCH & LOMB 07/17/2021 [id number] / [id number] / [id number] documented as of this encounter Advance Directives Documents on File Type Date Recorded Patient Storage Facility Rental Clerk Expl 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 Care Teams Superior [address] Justice Relationship Specialty Start Date End Date Johnnie Newby MD [address] [place] [address] PCP - General Family Medicine 09/13/20 documented as of this encounter
--- OUTSIDE RECORDS SUMMARY | 2023-04-15 00:23 | External Medical Summary | Summary of Care ---
Author Name Unknown Organization [facility] Address [address] [place] [address] Phone [phone] Care Team Providers Care Aircraft Engine Mechanic Overhaul Name Role Phone Johnnie Newby MD Primary Care Provider [phone] Reason for Visit * Reason Comments Follow Up B feet Encounter Details Date Type Department Care Team Description 11/05/2022 Office Visit Podiatry [facility] [address] [place] [address] Bettye Herrmann, DPM [address] [place] [address] Pain in toe of left [...] ASPIRIN EC 81 MG PO TBECIndications:CAD in [place] artery 1 TABLET DAILY 99 Tab 99 04/21/2013 Active [place]-3 Fatty Acids (FISH OIL) 1000 MG Capsule [...] goal of less than 7.0% ([facility]) TEST ONCE DAILY 100 Strip 5 03/02/2018 Active Ventolin HFA 108 (90 Base) MCG/ACT Inhalation Aerosol SolutionIndications: COPD, moderate ([facility]) Take 2 Puffs by mouth 4 [...] 24 Hour (Imdur)Indications:C oronary artery disease involving [place] coronary artery without angina pectoris TAKE ONE [...] 270 Capsule 0 07/08/2022 4 Active Tiotropium [place] Monohydrate 18 MCG Inhalation Capsule (Spiriva) INHALE [...] B, by GOLD 2017 classification ([facility]) INHALE TWO PUFFS BY MOUTH EVERY [...] foot 2.5 mg IJ ONCE 11/05/2022 11/05/2022 Active dexamethasone sodium phosphate 20 MG/5ML inj 2 mgIndications:Pain in toe of left foot,Bursitis of left foot 2 mg IJ ONCE 11/05/2022 11/05/2022 Active documented as of this encounter (statuses [...] long-term current use of insulin 08/02/2018 Old CO (myocardial infarction) 8 YISSEL treated with BiPAP 01/03/2018 Overview: Wears BiPAP at night Type 2 diabetes mellitus with hemoglobin A1c goal of less than 8.0% 10/23/2014 Overview: ICD-10 update of inactive term CVA, old, 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 PTSD (post-traumatic stress disorder) Gastroesophageal reflux disease without esophagitis 01/05/2014 Coronary artery disease invo lving [place] coronary artery of [place] heart without angina pectoris 11/27/2013 Tobacco abuse [...] mRNA, LNP-s, No Pre serve, 2-Dose Series ([employer]) 02/10/2022,07/13/2020,06/17/2020 Pneumococcal Conjugate Vacc, 13 Valent (Prevnar) [...] note were not included. Podiatry Established Note [employer] [place] [place] Name: Walter Don : 1945 Date: 11/05/2022 [...] MRI FOOT LEFT WO CONTRAST [MRFOOTLT] (Spec. #[id number]) (Order [id number]) Exam End Date Exam End Time 10/22/2022 10:50 AM MRI FOOT LEFT WO CONTRAST Order: [id number] Status: Final result Visible to patient: Yes (seen) Next appt: 11/12/2022 at 09:20 AM in *Anesth* (Pb Christopher Cousins, DO) Dx: Pain in toe of left foot 0 Result Notes Details Reading Physician Reading Date Result Priority Torri Cyril PinedaDO [phone] 10/22/2022 Narrative & Impression EXAM MR Left [...] in this encounter Nursing Notes * Odalis Joel, SUMEET - 11/05/2022 9:46 AM EDT B feet. Last visit had nail trim and callus/corn treatment. MRI done on L big toe. Continues to have pain in L big toe. documented in this encounter Plan of Treatment Upcoming Encounters Date Type Specialty Care Team Description 11/12/2022 Office Visit Pain Medicine Cousinmichelet Pb Fermin, DO [address] [place] [address] 12/08/2022 Office Visit Cardiology Wraren Montoya, DO [address] [place] [address] 12/17/2022 Office Visit Podiatry Bettye Herrmann DPM [address], [place] [id number] 12/31/2022 Appointment Radiology 12/31/2022 Office Visit Vascular Surgery Cyril Thompson MD [address] [place] [address] 02/11/2023 Office Visit Sleep Disorders Hui Bishop CRNP [address] [place] [address] 07/08/2023 Imaging Radiology 07/13/2023 Office Visit Radiation Oncology Shawna Johnson MD [address] [place] [address] [place] [address] Scheduled Procedures Name Priority Associated Diagnoses Date/Ti me COLONOSCOPY FLEXIBLE PROXIMAL DIAGNOSTIC Recall History of colon polyps Health Maintenance Due Date Last Done Comments Depression Screening, Annual for Pts 12 and Over 05/31/2020 05/31/2019 COVID-19 Vaccine (4 - Pfizer series) 04/07/2022 02/10/2022, 07/13/2020, 06/17/2020 Albumin/Creatinine Ratio 06/04/2022 022, 04/04/2018, 11/10/2016, Additional history exists CKD HGB USE SMARTSET 99925 07/17/202207/17, 07/17/2021, 12/02/2020, Additional history exists GFR [...] 05/01/2023 05/01/2022, 02/13/2022 CKD PHOS USE SMARTSET 09749 06/05/202305/20, 06/03/2021, 06/04/2020, Additional history exists DIABETES-FOOT [...] encounter Medical Devices Implanted Type Area Head Packager Device Identifier Shelf Expiration Date Model / Serial / Lot Lens Intraoc 24.0 - [id number] - [id number] Implanted:Qty: 1 on 06/01/2017 by Nikhil Bolton MD at OR [facility] Left: Eye BAUSCH & LOMB 07/17/2021 [id number] / [id number] / [id number] Lens Intraoc 24.0 - [id number] - [id number] Implanted:Qty: 1 on 06/08/2017 by Nikhil Bolton MD at OR [facility] Right: Eye BAUSCH & LOMB 07/17/2021 [id number] / [id number] / [id number] documented as of this encounter Visit Diagnoses Diagnosis Pain in toe of left foot- Primary Pain in limb Pre-ulcerative calluses Corns and callosities Bursitis of left foot documented in this encounter Advance Directives Documents on File Type Date Recorded 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 Care Teams Aircraft Engine Mechanic Overhaul Relationship Specialty Start Date End Date Johnnie Newby MD [address] [place] [address] PCP - General Family Medicine 09/13/20 documented as of this encounter
--- OUTSIDE RECORDS SUMMARY | 2023-04-15 00:23 | External Medical Summary | Summary of Care ---
Author Name Unknown Organization [facility] Address [address] [place] [address] Phone [phone] Care Team Providers Care Sign Maker Name Role Phone Johnnie Newby MD Primary Care Provider [phone] Reason for Referral * Evaluate & Treat - Unlimited Visits (Within 10 days (routine)) - Authorized Specialty Diagnoses / Procedures Referred By Contac t Referred To Contact Pain Management / Pain Medicine Diagnoses Lumbar facet arthropathy Dwaine Champion MD [address] [place] [address] Referral ID Status Reason Start Date Expiration Date Visits Requested Visits Authorized [id number] Authorized Specialty Services Required 10/29/2022 999 999 Question Answer Referral Priority Within 10 days (routine) Reason for referral? Interventional Pain Management - (Injection) Comments Patient Name: Walter Don Date of : 1945 Department Phone Number: MRI or CT (if unable to have a MRI) is recommended if any of the following apply: 1. Patient has neck or back pain with radiation to extremities. A previous MRI will be accepted if symptoms unchanged since prior MRI. 2. Spinal surgery since last MRI. If yes, order a MRI with and without contrast. 3. Hx or ongoing cancer treatment. Patient will need spine x-ray (Ap/Lat) for axial neck or back pain if not done previously. Fax No. [facility] [phone] or contact front office specialist [phone] Fax No. [facility] [phone] or contact front office specialist [phone] Fax No. [facility] [phone] or contact front office specialist [phone] Clinical bilateral lumbar facet arthropathy, please consider bilateral lumbar medial branch blocks and RFA, multilevel Reason for Visit * Reason Comments NEW PATIENT Chronic LBP (Radiate s down both legs) * Evaluate & Treat - Unlimited Visits (Within 10 days (routine)) - Authorized Specialty Diagnoses / Procedures Referred By Contac t Referred To Contact Physical Medicine and Rehab / Physical Medicine And Rehab Diagnoses DDD (degenerative disc disease), lumbar Aditya Taylor DO [address] [place] [address] Referral ID Status Reason Start Date Expiration Date Visits Requested Visits Authorized [id number] Authorized Specialty Services Required 07/29/2022 999 999 Encounter Details Date Type Department Care Team Description 10/29/2022 Office Visit Rehab Medicine, [facility] [address] [place] [address] Dwaine Champion MD [address] [place] [address] Lumbar facet arthropathy* Allergies Active Allergy Reactions Severity Noted Date Comments Acetaminophen 05/06/2005 headaches documented as of this encounter (statuses as of 10/29/2022) Medications Medication Sig Dispensed Refills Start Date End Date Status DAILY MULTIVITAMIN PO TABS with lycopene 0 Active BUSPAR 15 MG PO TABS Take by mouth. 0 Active ASPIRIN EC 81 MG PO TBECIndications:CAD in [place] artery 1 TABLET DAILY 99 Tab 99 04/21/2013 Active [place]-3 Fatty Acids (FISH OIL) 1000 MG Capsule [...] 270 Capsule 0 07/08/2022 4 Active Tiotropium [place] Monohydrate 18 MCG Inhalation Capsule (Spiriva) INHALE [...] as of this encounter (statuses as of 10/29/2022) Active Problems Problem Noted Date Overweight (BMI [...] as of this encounter (statuses as of 10/29/2022) Resolved Problems Problem Noted Date Resolved Date [...] as of this encounter (statuses as of 10/29/2022) Immunizations Name Administration Dates Next Due COVID-19 [...] Sign Reading Time Taken Comments Blood Pressure 100/52 10/29/2022 11:58 AM EDT Pulse 59 10/29/2022 11:58 AM EDT Temperature - - Respiratory Rate - - Oxygen Saturation - - Inhaled Oxygen Concentration - - Weight 91.6 kg (202 lb) 10/29/2022 11:58 AM EDT Height 172.7 cm (5' 8") 10/29/2022 11:58 AM EDT Body Mass Index 30.71 10/29/2022 11:58 AM EDT documented in this encounter Progress Notes * Dwaine Champion MD - 10/29/2022 12:00 PM EDT [facility] Note Patient seen in consultation at the request of Aditya Taylor DO Chief Complaint Back and leg pain HPI Walter Don is a(n) 77 year old male PMH DM2 with PN, SD, aortic valve stenosis,CAD, CKD3, referred for back and leg pain. saw Dr. Taylor 07/29/2022 noting chronic midline back pain rads down legs. MRI Lspine 2022 showed ML advanced FA without significant CCS; varying mild to moderate FS. XR Lspine 07/13/2022 showed ML spondylotic disease and discogenic disease. Today he notes injured backwhile lifting something heavy at age 14; denies falls; Denies bowel or bladder dysfunction, saddle anesthesia, numbness or tingling, gait dysfunction, balance dysfunction, or weakness unless otherwise noted here. Notes bilateral chronic low back pain across the low back. Tried tylenol but gives him headaches; tried oral NSAIDs (ibuprofen, advil, aleve) without relief over the years. excedrin helps. Denies hx spine surgery or spine injections. Denies hx PT for this pain. Chronic PN in fingertipsand feet. Pain deep aching//sharp in low back axially deeper than muscles he notes. He notes pain is axial low back bilateral but has previously traveled down the legs, though no longer radiating. Review of Systems per HPI Past Medical History: Diagnosis Date Asthma Benign [...] by Warren Patel MD at ENDOSCOPY [facility] COLONOSCOPY THRU STOMA, W/BIOPSY 05/28/2010 andenomatous tissue--repeat in 3 months COLONOSCOPY THRU STOMA, W/BIOPSY 09/18/2010 adenomatous-repeat colonoscopy in 3-6 months COLONOSCOPY THRU STOMA, W/BIOPSY 04/09/2011 polyps x3 , path shows adenomatous tissue repeat in 1 years COLONOSCOPY, DIAGNOSTIC (RECTUM) 05/20/2016 adenomatous polyps, poor prep, diverticulosis, repeat 3 yrs/[facility] COLONOSCOPY, DIAGNOSTIC (RECTUM) 06/06/2019 hemorrhoids/diverticulosis sigmoid and descending colon/small AVM/biopsies show adenomatous polyps/recall 6-9 months/COLONOSCOPY FLEXIBLE PROXIMAL DIAGNOSTIC performed by Clemencia Marinelli MD [facility] COLONOSCOPY, DIAGNOSTIC (RECTUM) 03/05/2022 benign adenomatous polyp, repeat 1 yr / COLONOSCOPY FLEXIBLE PROXIMAL DIAGNOSTIC performed by Clemencia Marinelli MD at ENDOSCOPY [facility] MISCELLANEOUS ORDER ([facility] ONLY) 1998 henria repair OTHER (INFORMATION) pilonidal cyst removal OTHER (INFORMATION) repair of bilateral shoulder for bone spur and repair of torn muscles right shoulder REMOVE CATARACT, INSERT LENS PROSTH Left 06/01/2017 left EXTRACAPSULAR CATARACT REMOVAL WITH INTRAOCULAR LENS performed by Nikhil Bolton MD at [facility] REMOVE CATARACT, INSERT LENS PROSTH Right 06/08/2017 right EXTRACAPSULAR CATARACT REMOVAL WITH INTRAOCULAR LENS performed by Nikhil Bolton MD at OR [facility] Social History Tobacco Use Smoking status: Every Day Packs/day: 1.50 Years: 69.00 Pack years: 103.50 Types: Cigarettes Smokeless tobacco: Never Tobacco comments: started age 7 Vaping Use Vaping Use: Never used Substance Use Topics Alcohol use: No Drug use: No Family History Problem Relation Age of Onset Cancer Mother colon Gastro-intestinal disorder Sister crohn's No Known Problems Father Heart disease Brother Heart disease Brother Review of patient's allergies indicates: Allergen Reactions Tylenol [Acetaminophen] headaches Current Outpatient Medications Medication Sig Dispense Refill DAILY MULTIVITAMIN PO TABS with lycopene BUSPAR 15 MG PO TABS Take by mouth. ASPIRIN EC 81 MG PO TBEC 1 TABLET DAILY 99 Tab 99 [place]-3 Fatty Acids (FISH OIL) 1000 MG Capsule [...] MORNING *NEED UPDATED LABS* 90 Capsule 1 Aspirin-Dipyridamole ER 25-200 MG Oral Capsule Extended Release 12 Hour (Aggrenox) TAKE ONE CAPSULE BY MOUTH EVERY MORNING 120 Capsule 0 Isosorbide Mononitrate ER 60 MG Oral Tablet Extended Release 24 Hour (Imdur) TAKE ONE TABLET BYMOUTH EVERY MORNING 90 Tablet 3 Furosemide 40 MG Oral Tablet (Lasix) TAKE ONE TABLET BY MOUTH EVERY MORNING 100 Tablet 1 Lisinopril 20 MG Oral Tablet (Prinivil) TAKE ONE TABLET BY MOUTH EVERY MORNING 90 Tablet 2 metFORMIN HCl 1000 MG Oral Tablet (Glucophage) TAKE ONE TABLET BY MOUTH EVERY MORNING 100 Tablet 1 risperiDONE 0.25 MG Oral Tablet (RisperDAL) TAKE ONE TABLET BY MOUTH AT BEDTIME 90 Tablet 0 Mirtazapine 15 MG Oral Tablet (Remeron) TAKE ONE-HALF TABLET BY MOUTH EVERY NIGHT 45 Tablet 0 FLUoxetine HCl 20 MG Oral Capsule (PROzac) TAKE THREE CAPSULES BY MOUTH EVERY MORNING 270 Capsule 0 FLUoxetine HCl 20 MG Oral Capsule (PROzac) TAKE THREE CAPSULES BY MOUTH EVERY MORNING 270 Capsule 0 Tiotropium [place] Monohydrate 18 MCG Inhalation Capsule (Spiriva) INHALE ONE CAPSULE VIA HANDIHALER EVERY MORNING. DO NOT SWALLOW CAPSULE. 90 Capsule 3 Mirtazapine 15 MG Oral Tablet (Remeron) TAKE ONE-HALF TABLET (7.5 MG.) BY MOUTH EVERY NIGHT 45 Tablet 0 risperiDONE 0.25 MG Oral Tablet (RisperDAL) TAKE ONE TABLET BY MOUTH EVERY NIGHT AT BEDTIME 90 Tablet 0 Roflumilast 500 MCG Oral Tablet (Daliresp) TAKE ONE TABLET BY MOUTH EVERY MORNING 30 Tablet 9 Fluticasone-Salmeterol 230-21 MCG/ACT Inhalation Aerosol (Advair) INHALE TWO PUFFS BY MOUTH EVERY MORNING AND INHALE TWO PUFFS BY MOUTH AT BEDTIME, RINSE MOUTH AFTER USE 36 g 3 FLUoxetine HCl 20 MG Oral Capsule (PROzac) TAKE THREE CAPSULES BY MOUTH EVERY MORNING 270 Capsule 0 busPIRone HCl 15 MG Oral Tablet (Buspar) TAKE ONE HALF TO ONE TABLET BY MOUTH THREE TIMES A DAYAS NEEDED FOR ANXIETY 90 Tablet 0 Atorvastatin Calcium 80 MG Oral Tablet (Lipitor) TAKE ONE TABLET BY MOUTH AT BEDTIME 90 Tablet 1 risperiDONE 0.25 MG Oral Tablet (RisperDAL) TAKE ONE TABLET BY MOUTH EVERY NIGHT AT BEDTIME 90 Tablet 0 Metoprolol Succinate ER 25 MG Oral Tablet Extended Release 24 Hour (toPROL XL) TAKE ONE TABLET BY MOUTH EVERY DAY 90 Tablet 3 Current Facility-Administered Medications Medication Dose Route Frequency [...] *conc* inhalation solution 2.5 mg 2.5 mg NebulizerPRAntonella Landrum MD 2.5 mg at 04/14/22 1246 Physical Examination BP 100/52 | Pulse 59 | Ht 1.727 m (5' 8") | Wt 91.6 kg (202 lb) | BMI 30.71 kg/m | BSA 2.1 m General: NAD; resting comfortably; conversing appropriately Respiratory: nonlabored breathing Skin: no erythema, cyanosis, or other rashes Psychiatric: appropriate mood and affect Neuro/MSK: 5/5 bilateral lower extremity strength L2-S2 myotomes sensation intact to light touch in bilateral lower extremities L2-S2 dermatomes reflexes 2+ bilaterally in patellae, achilles independent gait without loss of balance or assistive device No TTP across BL Lparaspinals or midline SPs or over SIJs ++lumbar facet loading challenge BL reproducing pain Data Review Hemoglobin AIC Results: Lab Results Component Value Date/Time HEMOGLOBIN A1C - [facility] 6.2 (H) 06/05/2022 12:49 PM HEMOGLOBIN A1C - [facility] 6.1 (H) 12/02/2021 08:39 AM HEMOGLOBIN A1C - [facility] 6.3 (H) 06/03/2021 08:37 AM HEMOGLOBIN A1C - [facility] 6.1 (H) 11/30/2019 09:17 AM HEMOGLOBIN A1C - [facility] 6.2 (H) 05/22/2019 10:28 AM HEMOGLOBIN A1C - [facility] 6.2 (H) 01/16/2019 10:16 AM Assessment and Plan ICD-10-CM 1. Lumbar facet arthropathy M47.816 Walter Don is a(n) very pleasant 77 year old male PMH DM2 with PN, SD, aortic valve stenosis,CAD, CKD3, seen for chronic low back pain clinically consistent with BL lumbar facet arthropathy. Plan -imaging findings per HPI above -referred to interventional spine/pain for for bilateral multilevel lumbar MBBs --> RFA if successful -tried medications per HPI above for this problem without sufficient relief -recommend PT; however patient notes exertional dyspnea with history of lung cancer as well as intolerance to physical activity due to low back pain at this time, thus not tolerant of PT at this time -follow-up PRN It was my pleasure to see this patient today. Please reach out to me with any questions. Ryan Workman MD Musculoskeletal and Interventional PM&R [facility] All of the patient's questions were answered today. I discussed and educated the patient on the relevant anatomy and pathophysiology in detail. I discussed the plan above with the patient in detail including the rationale for each point in the plan. The patient expressed understanding and agreementwith the plan as documented in this note. documented in this encounter Plan of Treatment Upcoming Encounters Date Type Specialty Care Team Description 11/05/2022 Office Visit Podiatry Bettye Herrmann DPM [address] [place] [address] 12/08/2022 Office Visit Cardiology Warren Montoya DO [address] [place] [address] 12/31/2022 Appointment Radiology 12/31/2022 Office Visit Vascular Surgery Cyril Thompson MD [address] [place] [address] 02/11/2023 Office Visit Sleep Disorders Hui Bishop CRNP [address] [place] [address] 07/08/2023 Imaging Radiology 07/13/2023 Office Visit Radiation Oncology Shawna Johnson MD [facility] [place] [address] Scheduled Procedures Name Priority Associated Diagnoses Date/Ti me COLONOSCOPY FLEXIBLE PROXIMAL DIAGNOSTIC Recall History of colon polyps Scheduled Referrals Name Type Priority Associated Diagnoses Orde r Schedule PAIN MEDICINE REFERRAL OP Referral Within 10 days (routine) Lumbar facet arthropathy Ordered: 10/29/2022 Health Maintenance Due Date Last Done Comments Depression Screening, Annual for Pts 12 and Over 05/31/2020 05/31/2019 COVID-19 Vaccine (4 - Pfizer series) 04/07/2022 02/10/2022, 07/13/2020, 06/17/2020 Albumin/Creatinine Ratio 06/04/20222 022, 04/04/2018, 11/10/2016, Additional history exists CKD HGB USE SMARTSET 11069 07/17/202207/17, 07/17/2021, 12/02/2020, Additional history exists GFR 12/03/2022 06/05/2022, 11/17, 07/17/2021, Additional history exists HbA1c 12/03/2022 06/05/2022, 11/17, 06/03/2021, Additional history exists AAA MONITORING; CT OR US YEARLY 12/09/2022 12/09/2021, 09/27/2020, 07/11/2018, Additional history exists AAA ULTRASOUND YEARLY 12/09/2022 12/09/2021 , 09/27/2020, 07/11/2018, Additional history exists Influenza Vaccine (FLU shot) (#1) 2022 02/10/2022, 03/05/2021, 02/27/2020, Additional history exists COLONOSCOPY-ANNUAL AGES 18-100 03/05/2023 03/05/2022, 03/05/2022, 06/06/2019, Additional history exists O2 ASSESSMENT COMPLETED IN PAST YEAR FOR COPD 03/05/2023 03/05/2022 DIABETES-EYE EXAM 04/09/2023 04/09/2022, , 03/30/2020, Additional history exists DISCUSS TOBACCO CESSATION (REFER TO SMARTSET #3291) 05/01/2023 05/01/2022, 02/13/2022 CKD PHOS USE SMARTSET 03315 06/05/202305/20, 06/03/2021, 06/04/2020, Additional history exists DIABETES-FOOT [...] this encounter Medical Devices Implanted Type Area Office Agent Device Identifier Shelf Expiration Date Model / Serial / Lot Lens Intraoc 24.0 - [id number] - [id number] Implanted:Qty: 1 on 06/01/2017 by Nikhil Bolton MD at OR [facility] Left: Eye BAUSCH & LOMB 07/17/2021 [id number] / [id number] / [id number] Lens Intraoc 24.0 - [id number] - [id number] Implanted:Qty: 1 on 06/08/2017 by Nikhil Bolton MD at OR [facility] Right: Eye BAUSCH & LOMB 07/17/2021 [id number] / [id number] / [id number] documented as of this encounter Visit Diagnoses Diagnosis Lumbar facet arthropathy- Primary Lumbosacral spondylosis without myelopathy documented in this encounter Advance Directives Documents on File Type Date Recorded Patient Cms Expert Expl 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 Care Teams Sign Maker Relationship Specialty Start Date End Date Johnnie Newby MD [address] [place] [address] PCP - General Family Medicine 09/13/20 documented as of this encounter
--- OUTSIDE RECORDS SUMMARY | 2023-04-15 00:23 | External Medical Summary | Summary of Care ---
Author Name Unknown Organization [facility] Address [address] [place] [address] Phone [phone] Care Team Providers Care Land Classifier Name Role Phone Johnnie Newby MD Primary Care Provider [phone] Encounter Details Date Type Department Care Team Description 10/19/2022 Orders Only Outcomes Research Department [address] [place] [address] Nora Garza CHRA [employer] Research Other*[id number] Allergies Active Allergy Reactions Severity Noted Date Comments Acetaminophen 05/06/2005 headaches documented as of this encounter (statuses as of 10/19/2022) Medications Medication Sig Dispensed Refills Start Date End Date Status DAILY MULTIVITAMIN PO TABS with lycopene 0 Active BUSPAR 15 MG PO TABS Take by mouth. 0 Active ASPIRIN EC 81 MG PO TBECIndications:CAD in [place] artery 1 TABLET DAILY 99 Tab 99 04/21/2013 Active [place]-3 Fatty Acids (FISH OIL) 1000 MG Capsule [...] MCG/ACT Inhalation Aerosol SolutionIndications: COPD, moderate ([facility]) Take 2 Puffs by mouth 4 times a day as needed for Shortness of Breath or Wheezing. 54 g 1 05/07/2020 Active Mirtazapine 15 MG Oral Tablet (Remeron) Take one and half tablets by mouth daily at bedtime 0 10/01/2020 Active Gabapentin 300 MG Oral Capsule (Neurontin) Take by mouth 1 Capsule before bedtime. 90 Capsule 3 09/10/2021 Active Metoprolol Succinate ER 25 MG Oral Tablet Extended Release 24 Hour (toPROL XL)Indications:SVT (supraventricular tachycardia) ([facility]),NSVT (nonsustained ventricular tachycardia) ([facility]) TAKE ONE TABLET BY MOUTH EVERY DAY 90 Tablet 3 01/26/2022 Active FLUoxetine HCl 20 MG Oral Capsule (PROzac) TAKE 3 CAPSULES BY MOUTH EVERY MORNING 270 Capsule 0 01/05/2022 Active Atorvastatin Calcium 80 MG Oral Tablet (Lipitor) Take 1 Tablet (80 mg) by mouth at bedtime. 90 Tablet 1 03/31/2022 Active Fluticasone-Salmeter ol 230-21 MCG/ACT Inhalation Aerosol (Advair)Indications: COPD, group B, by GOLD 2017 classification ([facility]) Inhale 2 Puffs by mouth in the morning and 2 Puffs before bedtime. Rinse mouth after use.. 36 g 3 04/17/2022 Active BiPAP every night at bedtime. 0 Active Roflumilast 500 MCG Oral Tablet (Daliresp) Take 1 Tablet by mouth in the morning. 30 Tablet 9 05/01/2022 Active Spiriva HandiHaler 18 MCG Inhalation Capsule (tiotropium bromide) Inhale 1 Capsule by mouth in the morning. . Do not swallow capsule.. 90 Capsule 3 06/26/2022 Active Vitamin B-12 1000 MCG Oral Tablet (Cyanocobalamin) Take 1 Tablet by mouth in the morning. 0 Active metFORMIN HCl 1000 MG Oral Tablet (Glucophage) Take 1 Tablet by mouth in the morning. 100 Tablet 1 09/03/2022 Active Fluticasone Propionate 50 MCG/ACT Nasal Suspension (Flonase) Administer 2 Sprays into each nostril in the morning. 16 g 1 09/09/2022 Active Lisinopril 20 MG Oral Tablet (Prinivil)Indication s:HTN, goal below 140/90 Take 1 Tablet by mouth in the morning. 90 Tablet 2 09/18/2022 Active Furosemide 40 MG Oral Tablet (Lasix)Indications:H TN, goal below 140/90 Take 1 Tablet by mouth in the morning. 100 Tablet 1 09/18/2022 Active Isosorbide Mononitrate ER 60 MG Oral Tablet Extended Release 24 Hour (Imdur)Indications:C oronary artery disease involving [place] coronary artery without angina pectoris Take 1 Tablet by mouth in the morning. 90 Tablet 3 09/18/2022 Active Omeprazole 20 MG Oral Capsule Delayed Release (PriLOSEC)Indication s:Gastroesophageal reflux disease without esophagitis Take 1 Capsule by mouth in the morning. 90 Capsule 1 10/02/2022 Active Aspirin-Dipyridamole ER 25-200 MG Oral Capsule Extended Release 12 Hour (Aggrenox)Indication s:CVA, old, ataxia Take 1 Capsule by mouth in the morning. 90 Capsule 0 10/02/2022 Active Hospital, Clinic, or Other Facility Administered [...] as of this encounter (statuses as of 10/19/2022) Active Problems Problem Noted Date Overweight (BMI [...] long-term current use of insulin 08/02/2018 Old MA (myocardial infarction) 8 YISSEL treated with BiPAP 01/03/2018 Overview: Wears BiPAP at night Type 2 diabetes mellitus with hemoglobin A1c goal of less than 8.0% 10/23/2014 Overview: ICD-10 update of inactive term CVA, old, 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 PTSD (post-traumatic stress disorder) Gastroesophageal reflux disease without esophagitis 01/05/2014 Coronary artery disease invo lving [place] coronary artery of [place] heart without angina pectoris 11/27/2013 Tobacco abuse 11/27/2013 HTN, goal below 130/80 03/06/2009 Overview: Modified per HTN protocol #16. documented as of this encounter (statuses as of 10/19/2022) Resolved Problems Problem Noted Date Resolved Date [...] as of this encounter (statuses as of 10/19/2022) Immunizations Name Administration Dates Next Due COVID-19 [...] Encounters Date Type Specialty Care Team Description 10/22/2022 Imaging Radiology 10/29/2022 Office Visit Physical Medicin e And Rehab Dwaine Champion MD [address] [place] [address] 11/05/2022 Office Visit Podiatry Bettye Herrmann, SAMM [address] [facility] [place] [address] 12/08/2022 Office Visit Cardiology Warren Montoya DO [address] [place] [address] 12/31/2022 Appointment Radiology 12/31/2022 Office Visit [facility] [address] 02/11/2023 Office Visit Sleep Disorders Hui Bishop CRNP [address] [place] [address] 07/08/2023 Imaging Radiology 07/13/2023 Office Visit Radiation Oncology Shawna Johnson MD [address] [place] [address] [place] [address] Scheduled Orders Name Type Priority Associated Diagnoses Orde r Schedule MYCODE INITIAL ADULT Lab Routine My[employer] Research Other*[id number] Expected: 10/19/2022 (Approximate), Expires: 11/08/2023 Scheduled Procedures Name Priority Associated Diagnoses Date/Ti me COLONOSCOPY FLEXIBLE PROXIMAL DIAGNOSTIC Recall History of colon polyps Health Maintenance Due Date Last Done Comments Depression Screening, Annual for Pts 12 and Over 05/31/2020 05/31/2019 COVID-19 Vaccine (4 - Pfizer series) 04/07/2022 02/10/2022, 07/13/2020, 06/17/2020 Albumin/Creatinine Ratio 06/04/202206/04/ 022, 04/04/2018, 11/10/2016, Additional history exists CKD HGB USE SMARTSET 43853 07/17/202207/17, 07/17/2021, 12/02/2020, Additional history exists GFR [...] exists DISCUSS TOBACCO CESSATION (REFER TO SMARTSET #8800) 05/01/2023 05/01/2022, 02/13/2022 CKD PHOS USE SMARTSET 61657 06/05/202305/20, 06/03/2021, 06/04/2020, Additional history exists DIABETES-FOOT [...] this encounter Medical Devices Implanted Type Area Quarry Supervisor Dimension Stone Device Identifier Shelf Expiration Date Model / Serial / Lot Lens Intraoc 24.0 - [id number] - [id number] Implanted:Qty: 1 on 06/01/2017 by Nikhil Bolton MD at [facility] Left: Eye [employer] 07/17/2021 [id number] / [id number] / [id number] Lens Intraoc 24.0 - [id number] - [id number] Implanted:Qty: 1 on 06/08/2017 by Nikhil Bolton MD at OR [facility] Right: Eye [employer]OMB 07/17/2021 [id number] / [id number] / [id number] documented as of this encounter Visit Diagnoses Diagnosis My[employer] Research Other*[id number] documented in this encounter Advance Directives Documents on File Type Date Recorded 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 Care Teams Land Classifier Relationship Specialty Start Date End Date Johnnie Newby MD [address] [facility] [place] [address] PCP - General Family Medicine 09/13/20 documented as of this encounter
--- OUTSIDE RECORDS SUMMARY | 2023-04-15 00:23 | External Medical Summary | Summary of Care ---
Author Name Unknown Organization [facility] Address [address] [place] [address] Phone [phone] Care Team Providers Care Hoop Bending Machine Operator Name Role Phone Johnnie Newby MD Primary Care Provider [phone] Reason for Visit * Reason Comments Back Pain * Evaluate & Treat - Unlimited Visits (Within 10 days (routine)) - Authorized Specialty Diagnoses / Procedures Referred By Contac t Referred To Contact Pain Management / Pain Medicine Diagnoses Lumbar facet arthropathy Dwaine Champion MD [address] [place] [address] Referral ID Status Reason Start Date Expiration Date Visits Requested Visits Authorized [id number] Authorized Specialty Services Required 10/29/[phone] Encounter Details Date Type Department Care Team Description 11/12/2022 Office Visit Interventional Pain Center, [facility] [address] [facility] [place] [address] Cousins, Pb Zander, [address] [facility] [place] [address] 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 radiculopathy* Allergies Active Allergy Reactions Severity Noted Date Comments Acetaminophen 05/06/2005 headaches documented as of this encounter (statuses as of 11/12/2022) Medications Medication Sig Dispensed Refills Start Date End Date Status DAILY MULTIVITAMIN PO TABS with lycopene 0 Active BUSPAR 15 MG PO TABS Take by mouth. 0 Active ASPIRIN EC 81 MG PO TBECIndications:CAD in [place] artery 1 TABLET DAILY 99 Tab 99 04/21/2013 Active [place]-3 Fatty Acids (FISH OIL) 1000 MG Capsule [...] goal of less than 7.0% ([facility]) TEST ONCE DAILY 100 Strip 5 03/02/2018 Active Ventolin HFA 108 (90 Base) MCG/ACT Inhalation Aerosol SolutionIndications: COPD, moderate ([facility]) Take 2 Puffs by mouth 4 times [...] 24 Hour (Imdur)Indications:C oronary artery disease involving [place] coronary artery without angina pectoris TAKE ONE [...] 270 Capsule 0 07/08/2022 4 Active Tiotropium [place] Monohydrate 18 MCG Inhalation Capsule (Spiriva) INHALE [...] as of this encounter (statuses as of 11/12/2022) Active Problems Problem Noted Date Overweight (BMI [...] long-term current use of insulin 08/02/2018 Old ME (myocardial infarction) 8 YISSEL treated with BiPAP [...] Coronary artery disease invo lving [place] coronary artery of [place] heart without angina pectoris 11/27/2013 Tobacco abuse 11/27/2013 HTN, goal below 130/80 03/06/2009 Overview: Modified per HTN protocol #16. documented as of this encounter (statuses as of 11/12/2022) Resolved Problems Problem Noted Date Resolved Date [...] as of this encounter (statuses as of 11/12/2022) Immunizations Name Administration Dates Next Due COVID-19 mRNA, LNP-s, No Pre serve, 2-Dose Series ([employer]) 02/10/2022,07/13/2020,06/17/2020 Pneumococcal Conjugate Vacc, 13 Valent (Prevnar) [...] as of this encounter Progress Notes * Pb Alexander, DO - 11/12/2022 9:16 AM EDT GENERAL HISTORY & PHYSICAL EXAMINATION - Anesthesia and Pain Service Name: Walter Don Location: [facility] REFERRING PHYSICIAN: Dwaine Champion MD Thank you for referring Walter Don. CHIEF COMPLAINT: Low back pain HPI: Walter Don is a 77 year old male who presents for consultation at the request of , regarding a long-standing history of chronic axial back pain. Patient indicates that since he was a teenager he has had persistent the back pain problems. He does not have consistent radicular symptomatology below the buttock. There is some isolated pain in his right foot for which he has recently seen Podiatry in his being further evaluated. There is no motor weakness or bowel bladder dysfunction. Pain is bilateral and relatively symmetrical and worse with any lifting or bending. He also can have pain with prolonged sitting or standing. He was seen recently by physical medicine rehabilitation and appropriate imaging was obtained including MRI of the lumbar spine in was reviewed with the patient. He was sent here for consideration of possible lumbar facet joint evaluation and treatment. Patient has tolerated therapy poorly in the past and is not interested in pursuing this again. Heis not noted improvement with use of nonsteroidal anti-inflammatory agents or Tylenol. I did reviewthe lumbar spine MRI with the patient and his today. PAST MEDICAL HISTORY: Past Medical History: Diagnosis Date Asthma Benign [...] 10/23/2014 ICD-10 update of inactive term Past Medical History - Pertinent Findings: PAST SURGICAL HISTORY: Past Surgical History: Procedure Laterality Date BRONCHOSCOPY, DIAGNOSTIC N/A 06/12/2020 BRONCHOSCOPY DIAGNOSTIC WITH OR WITHOUT WASHING performed by Warren Patel MD at ENDOSCOPY [facility] COLONOSCOPY THRU STOMA, W/BIOPSY 05/28/2010 andenomatous tissue--repeat in 3 months COLONOSCOPY THRU STOMA, W/BIOPSY 09/18/2010 adenomatous-repeat colonoscopy in 3-6 months COLONOSCOPY THRU STOMA, W/BIOPSY 04/09/2011 polyps x3 , path shows adenomatous tissue repeat in 1 years COLONOSCOPY, DIAGNOSTIC (RECTUM) 05/20/2016 adenomatous polyps, poor prep, diverticulosis, repeat 3 yrs/[facility] COLONOSCOPY, DIAGNOSTIC (RECTUM) 06/06/2019 hemorrhoids/diverticulosis sigmoid and descending colon/small AVM/biopsies show adenomatous polyps/recall 6-9 months/COLONOSCOPY FLEXIBLE PROXIMAL DIAGNOSTIC [facility] COLONOSCOPY, DIAGNOSTIC (RECTUM) 03/05/2022 benign adenomatous polyp, repeat 1 yr / COLONOSCOPY FLEXIBLE PROXIMAL DIAGNOSTIC performed by Clemencia Marinelli MD at ENDOSCOPY [facility] MISCELLANEOUS ORDER ([facility] ONLY) 1998 henria repair OTHER (INFORMATION) pilonidal cyst removal OTHER (INFORMATION) repair of bilateral shoulder for bone spur and repair of torn muscles right shoulder REMOVE CATARACT, INSERT LENS PROSTH Left 06/01/2017 left EXTRACAPSULAR CATARACT REMOVAL WITH INTRAOCULAR LENS performed by Nikhil Bolton MD at [facility] REMOVE CATARACT, INSERT LENS PROSTH Right 06/08/2017 right EXTRACAPSULAR CATARACT REMOVAL WITH INTRAOCULAR LENS performed by Nikhil Bolton MD at [facility] FAMILY HISTORY: Family History Problem Relation Age of Onset Cancer Mother colon Gastro-intestinal disorder Sister crohn's No Known Problems Father Heart disease Brother Heart disease Brother Family History - Pertinent Findings: SOCIAL HISTORY: Social History Tobacco Use Smoking status: Every Day Packs/day: 1.50 Years: 69.00 Pack years: 103.50 Types: Cigarettes Smokeless tobacco: Never Tobacco comments: started age 7 Vaping Use Vaping Use: Never used Substance Use Topics Alcohol use: No Drug use: No CURRENT MEDICATIONS: Note that discontinued and completed medications (per the MAR) continue to display for 24 hours. Ordered medications to be given in the future also display. Current Outpatient Medications Medication Sig Dispense Refill DAILY MULTIVITAMIN PO TABS with lycopene BUSPAR 15 MG PO TABS Take by mouth. ASPIRIN EC 81 MG PO TBEC 1 TABLET DAILY 99 Tab 99 [place]-3 Fatty Acids (FISH OIL) 1000 MG Capsule Take 1 Capsule by mouth in the morning. clonazePAM (KLONOPIN) 0.5 MG Tablet TAKE TWO TABLETS AT BEDTIME, MAY TAKE ONE TABLET TWO TIMES A DAY NEEDED FOR ANXIETY ADDITIONALLY 0 risperiDONE 0.25 MG Oral Tablet Take 2 Tablets by mouth at bedtime. [facility] [employer] ULTRA BLUE STRP TEST ONCE DAILY 100 [...] MOUTH EVERY MORNING 270 Capsule 0 Tiotropium [place] Monohydrate 18 MCG Inhalation Capsule (Spiriva) INHALE [...] *conc* inhalation solution 2.5 mg 2.5 mg NebulizerPRN Jesus Landrum MD 2.5 mg at 04/14/22 1246 ALLERGIES: Tylenol [acetaminophen] ROS: Constitutional: Negative for fatigue, fever, appetite change, unexplained weight loss. ENT: Negative for hearing loss, sore throat. Respiratory: Negative for cough, shortness of breath, dyspnea. Musculoskeletal: Positive for low back pain Neurological: Negative for headaches, seizures. Genitourinary: Negative for dysuria, urinary frequency, hematuria. Hematologic/ Lymphatic: Negative for easy bleeding, bruising, lymphadenopathy. Gastrointestinal: Negative for abdominal pain, nausea, vomiting, constipation, diarrhea. Cardiovascular: Negative for chest pain, palpitations, ankle swelling, orthopnea. PHYSICAL EXAMINATION: Most Recent Vital Signs: There were no vitals filed for this visit. General Appearance: Patient appears to be about stated age, pleasant and cooperative with normal affect. HEENT: head normocephalic, pupils equal round and reactive to light and accommodation, EOMI, hearing intact and equal bilaterally and nose clear, throat normal Heart: regular rate and rhythm Lungs: Clear to Auscultation MS: He can stand ambulate with a slightly antalgic gait. He has +5 over 5 motor function lower extremities. There are no gross sensory deficits noted. No pain with straight leg raising. There is modest SI joint tenderness bilaterally with negative RODGER. No trochanteric tenderness. There is pain with extension facet loading bilaterally. There are no lumbar surgical incisions noted. IMAGING: I reviewed MRI of the lumbar spine and he does have advanced facet arthropathy in lower segments. He does not have more than mild central or neuroforaminal stenosis at any level. 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 ASSESSMENT: Lumbar spondylosis without myelopathy radiculopathy PLAN: In light of the persistence of axial back pain despite appropriate treatment for number of years, it would be reasonable pursue evaluation of the bilateral L4- L5 and L5-S1 facet joints as a primary pain generator. The initial use of medial branch blocks as well as the ultimate pursued radiofrequency ablation was reviewed with the patient. Procedural risks including bleeding, infection, neural injury, worsening pain or failure were reviewed and accepted. He would like to proceed will be scheduled for bilateral lumbar facet joint nerve blocks L4-L5 and L5-S1. Pb Alexander DO 11/12/2022 I spent a total of 40-54 minutes (exact time 42 mins) on the date of service in preparation, delivery, and documentation of the care provided to Walter Don excluding any time spent in the performance of separately billed services. documented in this encounter Plan of Treatment Upcoming Encounters Date Type Specialty Care Team Description 12/08/2022 Office Visit Cardiology Warren Montoya DO [address] [place] [address] 12/09/2022 Hospital Encounter Surgery Pb Alexander DO [address] [place] [address] 12/09/2022 Surgery Surgery Pb Alexander DO [address] [place] [address] L-/S-SPINE PARAVERTEBRAL FACET INJ, 1 LEVEL 12/17/2022 Office Visit Podiatry Bettye Herrmann DPM [address] [facility] [address] 12/31/2022 Appointment Radiology 12/31/2022 Office Visit Vascular Surgery Cyril Thompson MD [address] [place] [address] 02/11/2023 Office Visit Sleep Disorders Hui Bishop CRNP [address] [place] [address] 07/08/2023 Imaging Radiology 07/13/2023 Office Visit Radiation Oncology Shawna Johnson MD [address] [place] [address] [place] [address] Scheduled Orders Name Type Priority Associated Diagnoses Orde r Schedule L-/S-SPINE PARAVERTEBRAL FACET INJ,1 LEVEL Procedures Routine 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 radiculopathy Expected: 11/26/2022, Expires: 12/14/2023 L-/S-SPINE PARAVERTEBRL FACET INJ,2 LEVELS Procedures Routine 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 radiculopathy Expected: 11/26/2022, Expires: 12/14/2023 Scheduled Procedures Name Priority Associated Diagnoses Date/Ti [...] Additional history exists CKD HGB USE SMARTSET 55646 07/17/202207/17, 07/17/2021, 12/02/2020, Additional history exists GFR [...] 05/01/2023 05/01/2022, 02/13/2022 CKD PHOS USE SMARTSET 19469 06/05/202305/20, 06/03/2021, 06/04/2020, Additional history exists DIABETES-FOOT [...] this encounter Medical Devices Implanted Type Area Powder Hand Device Identifier Shelf Expiration Date Model / Serial / Lot Lens Intraoc 24.0 - [id number] - [id number] Implanted:Qty: 1 on 06/01/2017 by Nikhil Bolton MD at OR [facility] Left: Eye [employer]OMB 07/17/2021 [id number] / [id number] / [id number] Lens Intraoc 24.0 - [id number] - [id number] Implanted:Qty: 1 on 06/08/2017 by Nikhil Bolton MD at OR [facility] Right: Eye [employer]CH [employer] LOMB 07/17/2021 [id number] / [id number] / [id number] documented as of this encounter Visit Diagnoses Diagnosis 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 radiculopathy- Primary Lumbosacral spondylosis without myelopathy 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 radiculopathy Lumbosacral spondylosis without myelopathy documented in this encounter Advance Directives Documents on File Type Date Recorded Patient Facilities Maintenance Engineer Expl anation Advance Directives and Yu [...] and were consensually agreed upon. Care Teams Hoop Bending Machine Operator Relationship Specialty Start Date End Date Johnnie Newby MD [address] [place] [address] PCP - General Family Medicine 09/13/20 documented as of this encounter
--- OUTSIDE RECORDS SUMMARY | 2023-04-15 00:23 | External Medical Summary | Summary of Care ---
Author Name Unknown Organization [facility] Address [address] [place] [address] Phone [phone] Care Team Providers Care Bowling Alley Attendant Name Role Phone Johnnie Newby MD Primary Care Provider [phone] Reason for Visit * Auth/Cert Specialty Diagnoses [...] Expiration Date Visits Re quested Visits Authorized [id number] Encounter Details Date Type Department Care Team Description 11/25/2022 Hospital Encounter OR [facility], Operating Room [facility] [address] [place] [id number] Cousins, Pb Fermin, [address] [place] [address] Allergies Active Allergy Reactions Severity Noted Date Comments Acetaminophen 05/06/2005 headaches documented as of this encounter (statuses as of 11/25/2022) Medications Medication Sig Dispensed Refills Start Date End Date Status DAILY MULTIVITAMIN PO TABS with lycopene 0 Active BUSPAR 15 MG PO TABS Take by mouth. 0 Active ASPIRIN EC 81 MG PO TBECIndications:CAD in [place] artery 1 TABLET DAILY 99 Tab 99 04/21/2013 Active [place]-3 Fatty Acids (FISH OIL) 1000 MG Capsule [...] Base) MCG/ACT Inhalation Aerosol SolutionIndications: COPD, moderate ([facility]) Take 2 Puffs by mouth 4 [...] 24 Hour (Imdur)Indications:C oronary artery disease involving [place] coronary artery without angina pectoris TAKE ONE [...] Information Patient not taking.Reported on 11/25/2022 Tiotropium [place] Monohydrate 18 MCG Inhalation Capsule (Spiriva) INHALE [...] for anxiety 90 Tablet 0 11/16/2022 Active documented as of this encounter (statuses as of 11/25/2022) Active Problems Problem Noted Date Overweight (BMI [...] esophagitis 01/05/2014 Coronary artery disease invo lving [place] coronary artery of [place] heart without angina pectoris 11/27/2013 Tobacco abuse 11/27/2013 HTN, goal below 130/80 03/06/2009 Overview: Modified per HTN protocol #16. documented as of this encounter (statuses as of 11/25/2022) Resolved Problems Problem Noted Date Resolved Date [...] as of this encounter (statuses as of 11/25/2022) Immunizations Name Administration Dates Next Due COVID-19 [...] Sign Reading Time Taken Comments Blood Pressure 105/53 11/25/2022 10:31 AM EDT Pulse 58 11/25/2022 10:31 AM EDT Temperature 36.4 C (97.6 F) 11/25/2022 10:13 AM E DT Respiratory Rate 18 11/25/2022 10:31 AM EDT Oxygen Saturation 97% 11/25/2022 10:31 AM EDT Inhaled Oxygen Concentration - - Weight - - Height - - Body Mass Index - - documented in this encounter Discharge Instructions * Discharge Instr - AVS* Pb Fermin DO Catherine - 11/25/2022 10:27 AM EDT [facility] [address] [place] [address] Discharge Date: 11/25/2022 You may call [facility] at [phone] during business hours. For after-hours emergencies call 911. Your attending physician at the time of your discharge was: Pb Zander KylerlaDO michelet [address] [facility] [address] The information below provides you with the [...] unless otherwise instructed by your family physician, statement request clerk or the anticoagulation clinic. Additional Instructions: Driving: . Date you may return to work or school: Follow Up: Call [phone] tomorrow. documented in this encounter Progress Notes * Pb Alexander DO - 11/25/2022 10:27 AM EDT [facility] [address] [address] OUTPATIENT SURGERY DISCHARGE SUMMARY NOTE Name: Walter Don Location: [facility]/OR Date: 11/25/2022 Time: 10:28 AM Surgery Date: 11/25/2022 Procedure: Procedure(s): L-/S-SPINE PARAVERTEBRAL FACET INJ, 1 [...] H&P Notes * Pb Alexander DO - 11/25/2022 6:54 AM EDT Interventional Pain Pre-Procedure Assessment Name:Walter Don Date:11/25/2022 Time:6:54 AM Procedure(s): Bilateral lumbar facet joint nerve blocks L4-L5 and L5-S1 Diagnosis: Lumbar spondylosis without myelopathy or radiculopathy Pre-Procedure Assessment: Prior to the procedure, the patient was identified. The patient's history, medications and allergies were reviewed . The patient is competent. The risks and benefits of the proposed procedure and theplanned sedation were discussed with the patient. All questions were answered and informed consent for the procedure was obtained. Prior to Admission medications Medication Sig Last Dose Discont. busPIRone HCl 15 MG Oral Tablet (Buspar) take 1/2 - 1 tab by mouth three times a day as needed for anxiety FLUoxetine HCl 20 MG Oral Capsule (PROzac) take 3 caps by mouth every morning Mirtazapine 15 MG Oral Tablet (Remeron) take 1/2 tab (7.5mg) by mouth every night risperiDONE 0.5 MG Oral Tablet (RisperDAL) take 1 tablet by mouth every night at bedtime Aspirin-Dipyridamole ER 25-200 MG Oral Capsule Extended Release 12 Hour (Aggrenox) TAKE ONE CAPSULEBY MOUTH EVERY MORNING busPIRone HCl 15 MG Oral Tablet (Buspar) TAKE ONE HALF TO ONE TABLET BY MOUTH THREE TIMES A DAY NEEDED FOR ANXIETY FLUoxetine HCl 20 MG Oral Capsule (PROzac) TAKE THREE CAPSULES BY MOUTH EVERY MORNING FLUoxetine HCl 20 MG Oral Capsule (PROzac) TAKE THREE CAPSULES BY MOUTH EVERY MORNING FLUoxetine HCl 20 MG Oral Capsule (PROzac) TAKE THREE CAPSULES BY MOUTH EVERY MORNING Fluticasone-Salmeterol 230-21 MCG/ACT Inhalation Aerosol (Advair) INHALE TWO PUFFS BY MOUTH EVERY MORNING AND INHALE TWO PUFFS BY MOUTH AT BEDTIME, RINSE MOUTH AFTER USE metFORMIN HCl 1000 MG Oral Tablet (Glucophage) TAKE ONE TABLET BY MOUTH EVERY MORNING Mirtazapine 15 MG Oral Tablet (Remeron) TAKE ONE-HALF TABLET BY MOUTH EVERY NIGHT Mirtazapine 15 MG Oral Tablet (Remeron) TAKE ONE-HALF TABLET (7.5 MG.) BY MOUTH EVERY NIGHT Omeprazole 20 MG Oral Capsule Delayed Release (PriLOSEC) TAKE ONE CAPSULE BY MOUTH EVERY MORNING *NEED UPDATED LABS* risperiDONE 0.25 MG Oral Tablet (RisperDAL) TAKE ONE TABLET BY MOUTH EVERY NIGHT AT BEDTIME risperiDONE 0.25 MG Oral Tablet (RisperDAL) TAKE ONE TABLET BY MOUTH EVERY NIGHT AT BEDTIME Tiotropium [place] Monohydrate 18 MCG Inhalation Capsule (Spiriva) INHALE ONE CAPSULE VIA HANDIHALER EVERY MORNING. DO NOT SWALLOW CAPSULE. Furosemide 40 MG Oral Tablet (Lasix) TAKE ONE TABLET BY MOUTH EVERY MORNING Isosorbide Mononitrate ER 60 MG Oral Tablet Extended Release 24 Hour (Imdur) TAKE ONE TABLET BY MOUTH EVERY MORNING Lisinopril 20 MG Oral Tablet (Prinivil) TAKE ONE TABLET BY MOUTH EVERY MORNING Fluticasone Propionate 50 MCG/ACT Nasal Suspension (Flonase) Administer 2 Sprays into each nostril in the morning. Vitamin B-12 1000 MCG Oral Tablet (Cyanocobalamin) Take 1 Tablet by mouth in the morning. BiPAP every night at bedtime. Roflumilast 500 MCG Oral Tablet (Daliresp) TAKE ONE TABLET BY MOUTH EVERY MORNING Atorvastatin Calcium 80 MG Oral Tablet (Lipitor) TAKE ONE TABLET BY MOUTH AT BEDTIME Metoprolol Succinate ER 25 MG Oral Tablet Extended Release 24 Hour (toPROL XL) TAKE ONE TABLET BY MOUTH EVERY DAY FLUoxetine HCl 20 MG Oral Capsule (PROzac) [...] TIMES A DAY NEEDED FOR ANXIETY ADDITIONALLY [place]-3 Fatty Acids (FISH OIL) 1000 MG Capsule Take 1 Capsule by mouth in the morning. ASPIRIN EC 81 MG PO TBEC 1 TABLET DAILY BUSPAR 15 MG PO TABS Take by mouth. DAILY MULTIVITAMIN PO TABS with lycopene Review of patient's allergies indicates: Allergen Reactions Tylenol [Acetaminophen] headaches There were no vitals taken for this visit. Physical Exam: Mental Status Examination: alert and oriented. Airway Examination: normal oropharyngeal airway and neck mobility. Respiratory Examination: clear to auscultation. CV Examination: normal. ASA Grade: II - A patient with mild systemic disease. After reviewing the risks and benefits, the patient was deemed in satisfactory condition to undergothe procedure. The anesthesia plan was to use local anesthesia. bP Alexander DO 11/25/2022 documented in this encounter Nursing Notes * Josefina Varghese RN - 11/25/2022 10:33 AM EDT Patient tolerated pain injection well. Ready for discharge to home. * Gege Wilson RN - 11/25/2022 10:27 AM EDT Band aid applied to area. Patient transferred to PACU 11 via wheelchair * Gege Wilson RN - 11/25/2022 10:20 AM EDT Patient tolerating pain management injection well. documented in this encounter OR Notes * OR Surgeon - Pb Alexander DO - 11/25/2022 10:28 AM EDT OPERATIVE RECORD OR [facility], Operating Room [address] [address] Walter Don : 1945 Location: @LOCATIONNAME@ SERVICE: Pain Management DATE: 11/25/2022 PRE-OP DIAGNOSIS: Lumbar spondylosis without myelopathy or [...] The patient presents in anticipation of undergoing a diagnostic facet joint injection to help determine if his lumbar pain [...] a negative aspiration, 0.5 cubic centimeter of 0.5% preservative-free bupivacaine was easily injected through each needle and the needle was removed. Injection was then repeated on the right side using identical technique. The patient tolerated the procedure well without immediate complication and will be re-evaluated in 24 hours by phone and was given appropriate discharge instructions, following postprocedural monitoring. documented in this encounter Plan of Treatment Upcoming Encounters Date Type Specialty Care Team Description 12/08/2022 Office Visit Cardiology Warren Montoya DO [address] [place] [address] 12/17/2022 Office Visit Podiatry Bettye Herrmann DPM [address] [place] [address] 12/31/2022 Appointment Radiology 12/31/2022 Office Visit Vascular Surgery Cyril Thompson MD [address] [place] [address] 02/11/2023 Office Visit Sleep Disorders Hui Bishop CRNP [address] [place] [address] 07/08/2023 Imaging Radiology 07/13/2023 Office Visit Radiation Oncology Shawna Johnson MD [address] [place] [address] [place] [address] Scheduled Procedures Name Priority Associated Diagnoses Date/Ti me L-/S-SPINE PARAVERTEBRAL FACET INJ, 1 LEVEL 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 radiculopathy 11/25/2022 10:18 AM EDT L-/S-SPINE PARAVERTEBRAL FACET INJ, 2 LEVELS 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 radiculopathy 11/25/2022 10:18 AM EDT COLONOSCOPY FLEXIBLE PROXIMAL DIAGNOSTIC Recall History of colon polyps Health Maintenance Due Date Last Done Comments Depression Screening, Annual for Pts 12 and Over 05/31/2020 05/31/2019 COVID-19 Vaccine (4 - Pfizer series) 04/07/2022 02/10/2022, 07/13/2020, 06/17/2020 Albumin/Creatinine Ratio 06/04/20222 022, 04/04/2018, 11/10/2016, Additional history exists CKD HGB USE SMARTSET 71489 07/17/202207/17, 07/17/2021, 12/02/2020, Additional history exists GFR [...] 05/01/2023 05/01/2022, 02/13/2022 CKD PHOS USE SMARTSET 16007 06/05/202305/20, 06/03/2021, 06/04/2020, Additional history exists DIABETES-FOOT [...] this encounter Medical Devices Implanted Type Area Meat Scrubber Device Identifier Shelf Expiration Date Model / Serial / Lot Lens Intraoc 24.0 - [id number] - [id number] Implanted:Qty: 1 on 06/01/2017 by Nikhil Bolton MD at OR [facility] Left: Eye [employer]OMB 07/17/2021 [id number] / [id number] / [id number] Lens Intraoc 24.0 - [id number] - [id number] Implanted:Qty: 1 on 06/08/2017 by Nikhil Bolton MD at OR [facility] Right: Eye [employer] LOMB 07/17/2021 [id number] / [id number] / [id number] documented as of this encounter Procedures Procedure Name Priority Date/Time Associated Diagnosis Comments FLUORO INTERVENTIONAL PAIN PROCEDURE NONBILLABLE Routine 11/25/2022 10:26 AM EDT documented in this encounter Results * FLUORO INTERVENTIONAL PAIN PROCEDURE NONBILLABLE (11/25/2022 10:26 AM EDT) Narrative Scheduling, Silent - 11/25/2022 10:27 AM EDT This procedure will not be read by a Radiologist. Please see operative note. Pb Fermin Cousins DO RAD FLUOROSCOPY documented in this encounter Administered Medications Inactive Administered Medications - up to 3 most recent administrations Medication Order MAR Action Action Date Dose Rate Site bupivacaine HCl (Sensorcaine) 0.5 % (PF) inj 7.5 mg 7.5 mg (1.5 mL), Injection, ONCE, On Wed11/25/22 at 1045, For 1 dose, Bilateral Given 11/25/2022 10:22 AM EDT 3 mL lidocaine 1 % inj 15 mg 15 mg (1.5 mL), Subcutaneous, ONCE, On Wed11/25/22 at 1045, For 1 dose, Bilateral Given 11/25/2022 10:19 AM EDT 3 mL Othe r-Specify documented in this encounter Active and Recently Administered Medications Times are shown in EDT. Scheduled Medication Order 11/23/2022 11/24/2022 11/25/2022 bupivacaine HCl (Sensorcaine) 0.5 % (PF) inj 7.5 mg (COMPLETED) 7.5 mg (1.5 mL), Injection, ONCE, On Wed11/25/22 at 1045, For 1 dose, Bilateral 1022 (Given - Provid er: Gege Wilson RN) lidocaine 1 % inj 15 mg (COMPLETED) 15 mg (1.5 mL), Subcutaneous, ONCE, On Wed11/25/22 at 1045, For 1 dose, Bilateral 1019 (Given - Provid er: Gege Wilson RN - Comment: bilateral lumbar L4L5/[id number] doses/ left side/right side) documented in this encounter Advance Directives Documents on File Type Date Recorded Patient Gate Watch Expl anation Advance Directives and Melissaaugustine babatunde [...] and were consensually agreed upon. Care Teams Bowling Alley Attendant Relationship Specialty Start Date End Date Johnnie Newby MD [address] [place] [address] PCP - General Family Medicine 09/13/20 documented as of this encounter
--- OUTSIDE RECORDS SUMMARY | 2023-04-15 00:23 | External Medical Summary | Summary of Care ---
Author Name Unknown Organization [facility] Address [address] [place] [address] Phone [phone] Care Team Providers Care Handle Lathe Operator Name Role Phone Johnnie Newby MD Primary Care Provider [phone] Reason for Visit * Reason Onset Date Comments Follow Up 11/26/2022 Encounter Details Date Type Department Care Team Description 11/26/2022 Telephone Interventional Pain Center, [facility] [address] [place] [address] Cousins, Pb Fermin, [address] [facility] [place] [address] Follow Up Allergies Active Allergy Reactions Severity Noted Date Comments Acetaminophen 05/06/2005 headaches documented as of this encounter (statuses as of 11/26/2022) Medications Medication Sig Dispensed Refills Start Date End Date Status DAILY MULTIVITAMIN PO TABS with lycopene 0 Active BUSPAR 15 MG PO TABS Take by mouth. 0 Active ASPIRIN EC 81 MG PO TBECIndications:CAD in [place] artery 1 TABLET DAILY 99 Tab 99 04/21/2013 Active [place]-3 Fatty Acids (FISH OIL) 1000 MG Capsule [...] MCG/ACT Inhalation Aerosol SolutionIndications: COPD, moderate ([facility]) Take 2 [...] 24 Hour (Imdur)Indications:C oronary artery disease involving [place] coronary artery without angina pectoris TAKE ONE [...] Information Patient not taking.Reported on 11/25/2022 Tiotropium [place] Monohydrate 18 MCG Inhalation Capsule (Spiriva) INHALE [...] long-term current use of insulin 08/02/2018 Old NE (myocardial infarction) 8 YISSEL treated with BiPAP 01/03/2018 Overview: Wears BiPAP at night Type 2 diabetes mellitus with hemoglobin A1c goal of less than 8.0% 10/23/2014 Overview: ICD-10 update of inactive term CVA, old, 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 PTSD (post-traumatic stress disorder) Gastroesophageal reflux disease without esophagitis 01/05/2014 Coronary artery disease invo lving [place] coronary artery of [place] heart without angina pectoris 11/27/2013 Tobacco abuse [...] mRNA, LNP-s, No Pre serve, 2-Dose Series ([employer]) 02/10/2022,07/13/2020,06/17/2020 Pneumococcal Conjugate Vacc, 13 Valent (Prevnar) [...] encounter Miscellaneous Notes * Addendum Note - Pb Stanley DO - 11/26/2022 11:04 AM EDTAddended by: PB STANLEY on: 11/26/2022 11:04 AM Modules accepted: Orders * Telephone Encounter - Pb Stanley DO - 11/26/2022 11:03 AM EDT [...] 12/17/2022 Office Visit Podiatry Bettye Herrmann DPM [address] [place], [place] [address] [address] 12/31/2022 Appointment Radiology 12/31/2022 Office Visit Vascular Surgery Cyril Thompson MD [address] [facility] [place] [address] 02/11/2023 Office Visit Sleep Disorders Hui Bishop CRNP [address] [place] [address] 07/08/2023 Imaging Radiology 07/13/2023 Office Visit Radiation Oncology Shawna Johnson MD [address] [place] [address] Scheduled Orders Name Type [...] Additional history exists CKD HGB USE SMARTSET 11005 07/17/202207/17, 07/17/2021, 12/02/2020, Additional history exists GFR [...] 05/01/2023 05/01/2022, 02/13/2022 CKD PHOS USE SMARTSET 51634 06/05/202305/20, 06/03/2021, 06/04/2020, Additional history exists DIABETES-FOOT [...] this encounter Medical Devices Implanted Type Area Private Duty Nurse Device Identifier Shelf Expiration Date Model / Serial / Lot Lens Intraoc 24.0 - [id number] - [id number] Implanted:Qty: 1 on 06/01/2017 by Nikhil Bolton MD at OR [facility] Left: Eye [employer]OM[employer] 07/17/2021 [id number] / [id number] / [id number] Lens Intraoc 24.0 - [id number] - [id number] Implanted:Qty: 1 on 06/08/2017 by Nikhil Bolton MD at OR [facility] Right: Eye BA[employer]CH [employer] LOMB 07/17/2021 [id number] / [id number] / [id number] documented as of this encounter Visit Diagnoses Diagnosis 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 radiculopathy- Primary Lumbosacral spondylosis without myelopathy documented in this encounter Advance Directives Documents on File Type Date Recorded 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 Care Teams Handle Lathe Operator Relationship Specialty Start Date End Date Johnnie Newby MD [address] [place] [address] PCP - General Family Medicine 09/13/20 documented as of this encounter
[2023-04-15] MEDS ORDERED: Heparin IV Adult Wt-Based Standard *NO* INITIAL Bolus Protocol IV STA (00:27)
[2023-04-15] MEDS ORDERED: HEPARIN SODIUM/DEXTROSE 25,000 UNITS/500 ML BAG IV SCH ×2 (00:45→12:30)
--- NOTE | 2023-04-15 02:39 | History & Physical Report ---
Date of Service April 15, 2023 Assessment & Plan (1) Acute non-ST elevation myocardial infarction (NSTEMI): Plan: 77-year-old male with past medical history significant for type 2 diabetes, diabetic peripheral neuropathy, dyslipidemia, COPD, malignant neoplasm of right upper lobe of lung s/p radiation, obstructive obstructive sleep apnea on BiPAP, ongoing tobacco abuse, history of nonsustained ventricular tachycardia, abdominal aortic aneurysm, hypertension, CAD, peripheral artery disease, carotid stenosis, aortic valve stenosis, GERD, CKD stage III,, gout, anemia of chronic disease, history of CVA, PTSD, obesity, depression with anxiety was brought in because of chest pain. Around 6 PM he had chest pain moderate in severity lasted less than 1 minute and couple hours later he felt short of breath and chest pressure which lasted for about 45 minutes to 1 hour and came to ER. Currently patient is resting comfortably. He denies any chest pain or shortness of breath at this time. Denies any headache. No runny nose or sore throat. No cough. No fevers. No nausea. No sweating. No abdominal pain. Normal bowel and bladder movements. States his stools are always black because he takes iron pills. No hematuria. Patient is somewhat hard of hearing Non-ST elevated SC Chest pain History of CAD Currently asymptomatic Initial troponin 49.8 and repeat [address] depressions in inferolateral leads Patient on Eliquis and took tonight's dose As per cardiology notes patient had cardiac catheterization in 2005 which showed 100% occlusion of the right coronary and left circumflex arteries with only artery being patent LAD providing collaterals to the 2 occluded arteries. Will follow serial cardiac enzymes and echo Close monitoring telemetry floor Continue home medications of aspirin, high-dose statin, Imdur and metoprolol s uccinate seems on Eliquis for possible PAF on zio monitor. Shortness of breath Possible CHF Currently oxygen saturations are okay Chest x-ray possible mild congestion Mild pedal edema Blood pressure is somewhat soft Will continue home Lasix for now and monitor Follow echo Cardiology consulted Anemia Iron deficiency anemia Hemoglobin is 8.7 Seems chronically low Hemoglobin was 9.2 on 2022, 8.6 on 03/10/2023, 9.5 on April 07, 2023 Had EGD and colonoscopy in December 2022. EGD showed gastric polyp. Colonoscopy and polypectomy and GI recommended plan for repeat colonoscopy in 2 years Patient is on Eliquis We will check stool for Hemoccult Blood consent obtained We will follow repeat labs History of COPD Ongoing tobacco abuse smokes 1.5 pack of cigarettes daily Needs counseling No obvious wheezing Continue home inhalers and nebs as needed Diabetes Hold p.o. medications Insulin sliding scale Monitor blood sugars and follow HbA1c levels History of malignant neoplasm of right upper lobe lung s/p radiation Obstructive sleep apnea On BiPAP Hypertension On Imdur, metoprolol and lisinopril We will monitor History of CAD Peripheral vascular disease On aspirin and statin and Eliquis History of aortic stenosis Will follow echo CKD stage III Presented creatinine 1.5 Seems around baseline History of abdominal aortic aneurysm Needs follow-up Depression and anxiety On fluoxetine and Remeron and risperidone DVT prophylaxis On Eliquis Disposition Telemetry floor Full code History of Present Illness Chief Complaint: Chest pain Primary Care Provider: Johnnie Newby MD 77-year-old male with past medical history significant for type 2 diabetes, diabetic peripheral neuropathy, dyslipidemia, COPD, malignant neoplasm of right upper lobe of lung s/p radiation, obstructive obstructive sleep apnea on BiPAP, ongoing tobacco abuse, history of nonsustained ventricular tachycardia, abdominal aortic aneurysm, hypertension, CAD, peripheral artery disease, carotid stenosis, aortic valve stenosis, GERD, CKD stage III,, gout, anemia of chronic disease, history of CVA, PTSD, obesity, depression with anxiety was brought in because of chest pain. Around 6 PM he had chest pain moderate in severity lasted less than 1 minute and couple hours later he felt short of breath and chest pressure which lasted for about 45 minutes to 1 hour and came to ER. Currently patient is resting comfortably. He denies any chest pain or shortness of breath at this time. Denies any headache. No runny nose or sore throat. No cough. No fevers. No nausea. No sweating. No abdominal pain. Normal bowel and bladder movements. States his stools are always black because he takes iron pills. No hematuria. Patient is somewhat hard of hearing Past medical history. As mentioned above Past surgical history. Bronchoscopy, colonoscopy EGD, bilateral cataract. Social history. . Smokes 1.5 pack cigarettes daily. No alcohol use. No drug use. Family history. Mother had colon cancer. Sister had Crohn's disease. Brother had heart disease. Allergies Allergy/AdvReac Type Severity Reaction Status Date / Time acetaminophen AdvReac Severe SEVERE Verified 04/14/23 23:16 HEADACHE-PER PT "BRAIN SWELLS". Home Medications Medication Instructions Recorded Confirmed Type albuterol sulfate 2.5 mg/3 mL 2.5 mg inhalation DIRECTED PRN 04/14/23 04/14/23 History (0.083 %) solution for nebulization Shortness Of Breath Or Wheezing albuterol sulfate 90 mcg/actuation 2 puff inhalation QID PRN 04/14/23 04/14/23 History aerosol inhaler (Ventolin HFA) Shortness Of Breath Or Wheezing apixaban 5 mg tablet (Eliquis) 5 mg PO BID 04/14/23 04/14/23 History aspirin 81 mg chewable tablet 81 mg PO QAM 04/14/23 04/14/23 History atorvastatin 80 mg tablet 80 mg PO HS 04/14/23 04/14/23 History buspirone 10 mg tablet 10 - 20 mg PO BID PRN Anxiety 04/14/23 04/14/23 History clonazepam 0.5 mg tablet 0.5 mg PO DIRECTED PRN 04/14/23 04/14/23 History NEEDED PER [facility]. colchicine 0.6 mg tablet 0.6 mg PO DIRECTED PRN GOUT 04/14/23 04/14/23 History FLARE UP cyanocobalamin (vitamin B-12) 1,000 mcg PO QAM 04/14/23 04/14/23 History 1,000 mcg tablet (Vitamin B-12) fluoxetine 20 mg capsule 60 mg PO QAM 04/14/23 04/14/23 History fluticasone propionate 230 2 puff inhalation BID 04/14/23 04/14/23 History mcg-salmeterol 21 mcg/actuation HFA inhaler (Advair HFA) fluticasone propionate 50 2 spray intranasal QAM 04/14/23 04/14/23 History mcg/actuation nasal spray,suspension furosemide 40 mg tablet (Lasix) 40 mg PO QAM 04/14/23 04/14/23 History gabapentin 300 mg capsule 300 mg PO HS 04/14/23 04/14/23 History iron,carbonyl 65 mg-vitamin C 125 1 tab PO QAM 04/14/23 04/14/23 History mg tablet,delayed release (Vitron-C) isosorbide mononitrate 60 mg 60 mg PO QAM 04/14/23 04/14/23 History tablet,extended release 24 hr lisinopril 20 mg tablet 20 mg PO QAM 04/14/23 04/14/23 History metformin 1,000 mg tablet 1,000 mg PO QAM 04/14/23 04/14/23 History metoprolol succinate 25 mg 25 mg PO QAM 04/14/23 04/14/23 History tablet,extended release 24 hr mirtazapine 15 mg tablet 7.5 mg PO HS 04/14/23 04/14/23 History multivitamin 1 tab PO QAM 04/14/23 04/14/23 History omeprazole 20 mg capsule,delayed 20 mg PO QAM 04/14/23 04/14/23 History release risperidone 0.5 mg tablet 0.5 mg PO HS 04/14/23 04/14/23 History roflumilast 500 mcg tablet 500 mcg PO QAM 04/14/23 04/14/23 History tiotropium bromide 18 mcg capsule 1 cap inhalation QAM 04/14/23 04/14/23 History with inhalation device (Spiriva with HandiHaler) Past Med/Surg History Social History Smoking Status: Current every day smoker Tobacco Type: Cigarettes Cigarettes Per Day: 1.5 ppd; Do You Dip or Chew Tobacco: No; Tobacco Cessation Education Requested by Patient: No Hx Alcohol Use: No Hx Substance Use: No Preferred Language: Portuguese Communication Ability: Effective 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 ENT- oropharynx clear Neck- supple, no JVD. Lungs- Diminished b/l breath sounds, no wheezing or crackles. Heart- regular rhythm; no murmur, no gallop. Abdomen- normal bowel sounds, soft, nontender, no distension. Extremities- mild pretibial edema, no erythema seen. Neuro- alert, oriented x 3; PERRL, no facial palsy; no dysarthria; moves extremities. Skin- warm & dry Results & Data Results & Data Vital Signs (Past 12 Hours) Vital Signs Temp Pulse Pulse Resp BP BP Pulse Ox 04/15/23 01:32 73 16 110/59 L 96 04/15/23 00:22 75 16 111/53 L 97 04/14/23 22:42 78 04/14/23 22:33 98 H 93 04/14/23 22:10 98 H 22 93 04/14/23 22:10 36.5 C 98 H 22 112/65 93 04/14/23 22:10 93 04/14/23 22:10 36.5 C 98 H 22 112/65 93 O2 Del Method 04/15/23 01:32 Room Air 04/15/23 00:22 Room Air 04/14/23 22:42 04/14/23 22:33 Room Air 04/14/23 22:10 Room Air 04/14/23 22:10 Room Air 04/14/23 22:10 Room Air 04/14/23 22:10 Room Air Diagnostic Findings Laboratory Results WBC 6.71 K/ul (4.8-10.8) 04/14/23 22:35 RBC 3.43 M/uL (4.70-6.10) L 04/14/23 22:35 Hgb 8.7 g/dl (14.0-18.0) L 04/14/23 22:35 Hct 29.4 % (42.0-52.0) L 04/14/23 22:35 MCV 85.7 fL (80.0-100.0) 04/14/23 22:35 MCH 25.4 pg (25.0-34.0) 04/14/23 22:35 MCHC 29.6 g/dL (32.0-36.0) L 04/14/23 22:35 RDW Std Deviation 55.8 fL (36.4-46.3) H 04/14/23 22:35 RDW Coeff of Adam 18.0 % (11.5-14.5) H 04/14/23 22:35 Plt Count 245 K/uL (130-400) 04/14/23 22:35 MPV 9.5 fL (9.4-12.4) 04/14/23 22:35 Immature Gran % (Auto) 0.3 % 04/14/23 22:35 Neut % (Auto) 66.6 % 04/14/23 22:35 Lymph % (Auto) 22.7 % 04/14/23 22:35 [place] % (Auto) 9.7 % 04/14/23 22:35 Eos % (Auto) 0.0 % 04/14/23 22:35 Baso % (Auto) 0.7 % 04/14/23 22:35 Neut # (Auto) 4.47 K/uL (1.40-6.50) 04/14/23 22:35 Lymph # (Auto) 1.52 K/uL (1.20-3.40) 04/14/23 22:35 [place] # (Auto) 0.65 K/uL (0.11-0.59) H 04/14/23 22:35 Eos # (Auto) 0.00 K/uL (0.00-0.50) 04/14/23 22:35 Baso # (Auto) 0.05 K/uL (0.00-0.20) 04/14/23 22:35 Immature Gran # (Auto) 0.02 K/uL (0.01-0.20) 04/14/23 22:35 PT 10.9 Seconds (9.0-12.0) 04/14/23 22:35 INR 1.0 (0.9-1.1) 04/14/23 22:35 Sodium 142 mmol/L (136-145) 04/14/23 22:35 Potassium 4.0 mmol/L (3.5-5.1) 04/14/23 22:35 Chloride 107 mmol/L (98-107) 04/14/23 22:35 Carbon Dioxide 28 mmol/L (21-32) 04/14/23 22:35 Anion Gap 7 (3-11) 04/14/23 22:35 BUN 27 mg/dl (6-23) H 04/14/23 22:35 Creatinine 1.55 mg/dl (0.6-1.4) H 04/14/23 22:35 Est Cr Clr Drug Dosing 43.2 ml/min 04/14/23 22:35 Est GFR ( Amer) 48.6 ml/min 04/14/23 22:35 Est GFR (Non-Af Amer) 42.0 ml/min 04/14/23 22:35 BUN/Creatinine Ratio 17.4 (10-20) 04/14/23 22:35 Glucose 130 mg/dl (70-99(Fasting)) H 04/14/23 22:35 Calcium 8.9 mg/dl (8.6-10.3) 04/14/23 22:35 Total Bilirubin 0.3 mg/dl (0.2-1.0) 04/14/23 22:35 AST 17 U/L (13-39) 04/14/23 22:35 ALT 13 U/L (7-52) 04/14/23 22:35 Alkaline Phosphatase 111 U/L (34-104) H 04/14/23 22:35 Troponin I High Sens 49.9 pg/ml (0-20) H 04/14/23 22:35 B-Natriuretic Peptide 708 pg/ml (0-100) H 04/14/23 22:35 Total Protein 6.4 gm/dl (6.0-8.3) 04/14/23 22:35 Albumin 3.6 gm/dl (3.4-5.0) 04/14/23 22:35 Globulin 2.8 gm/dl (2.5-4.0) 04/14/23 22:35 Albumin/Globulin Ratio 1.3 (0.9-2) 04/14/23 22:35 Lipase 54 U/L (11-82) 04/14/23 22:35 ECG Additional Comments: ECG. Sinus rhythm with first-degree AV block at a rate of 83. ST depressions in inferior and lateral leads. Code Status & VTE Plan VTE Prophylaxis Plan VTE Prophylaxis will be ordered: Yes
[2023-04-15] MEDS ORDERED: clonazePAM 0.5 MG TAB PO PRN (03:41)
[2023-04-15] MEDS ORDERED: GLUCOSE 40% GEL 15 GM TUBE PO PRN (03:41)
[2023-04-15] MEDS ORDERED: NITROGLYCERIN SL 0.4 MG/TAB TAB SL PRN (03:41)
[2023-04-15] MEDS ORDERED: POLYETHYLENE (MIRALAX) 17 GM PACK PO PRN (03:41)
[2023-04-15] MEDS ORDERED: DEXTROSE 50% 50 ML SYRINGE IV PRN (03:41)
[2023-04-15] MEDS ORDERED: GLUCOSE 10 TAB/TUBE PO PRN (03:41)
[2023-04-15] MEDS ORDERED: ALBUTEROL 0.083% NEBU SOLN 3 ML VIAL INH PRN ×2 (03:41→04:00)
[2023-04-15] MEDS ORDERED: ALBUTEROL HFA 8 GM INHALER INH PRN (03:41)
[2023-04-15] MEDS ORDERED: CARBOHYDRATES FOR HYPOGLYCEMIA PO PRN (03:41)
[2023-04-15] MEDS ORDERED: GLUCAGON FOR INJ 1 MG VIAL SQ PRN (03:41)
[2023-04-15 05:43] LABS: Hematocrit (blood only) 29.4 % (42.0-52.0); Mean Corpuscular Hemoglobin 25.9 pg (25.0-34.0); Mean Corpuscular Hgb Conc 30.6 g/dL (32.0-36.0); Mean Corpuscular Volume 84.5 fL (80.0-100.0); Mean Platelet Volume 9.4 fL (9.4-12.4); Platelet Count 227 K/uL (130-400); RDW Coefficient of Variation 17.7 % (11.5-14.5); RDW Standard Deviation 54.5 fL (36.4-46.3); Red Blood Count 3.48 M/uL (4.70-6.10); White Blood Count 5.44 K/ul (4.8-10.8)
[2023-04-15 06:02] LABS: BUN Creatinine Ratio 19.7 (10-20); Calcium 8.9 mg/dl (8.6-10.3); Est GFR (African American) 56.5 ml/min; Est GFR (Non-African American) 48.7 ml/min; Magnesium 1.9 mg/dl (1.7-2.4); Potassium 4.7 mmol/L (3.5-5.1)
[2023-04-15 06:11] LABS: Troponin I High Sensitivity 383.8 pg/ml (0-20)
[2023-04-15 06:12] LABS: Basophils # (auto) 0.02 K/uL (0.00-0.20); Basophils % (auto) 0.4 %; Immature Granulocytes # (auto) 0.01 K/uL (0.01-0.20); Immature Granulocytes % (auto) 0.2 %; Lymphocytes # (auto) 0.28 K/uL (1.20-3.40); Lymphocytes % (auto) 5.1 %; Monocytes # (auto) 0.04 K/uL (0.11-0.59); Monocytes % (auto) 0.7 %; Neutrophils # (auto) 5.09 K/uL (1.40-6.50); Neutrophils % (auto) 93.6 %
[2023-04-15] MEDS: INSULIN ASPART PER UNIT CHARGE SC SCH ×3 (06:21→17:27)
--- NOTE | 2023-04-15 07:16 | XRay Report ---
SINGLE VIEW CHEST CLINICAL HISTORY: Atypical chest pain. FINDINGS: An AP, portable, upright chest radiograph is compared to study dated 05/27/2016 and correlate d with chest CT dated 04/25/2018. The heart is enlarged noting atherosclerotic calcification of the tho racic aorta. Emphysema and chronic interstitial thickening is similar to previous. There is mild pulm onary vascular congestion. Airspace consolidation is seen at the right lung base. Milder opacities ar e noted at the left lung base. No large pleural effusion or pneumothorax is identified. The skeletal structures are osteopenic. The bony thorax is grossly intact. IMPRESSION: 1. Cardiomegaly and emphysema with mild pulmonary vascular congestion. 2. There is right basilar consolidation. Correlate clinically for symptoms of pneumonia/aspiration pn eumonitis. Radiographic follow-up to resolution is recommended. 3. The highly suspicious right lower lobe groundglass lesion seen by CT on 04/25/2018 cannot be assesse d by x-ray. Outpatient follow up with pulmonology is recommended ACT 112: Negative or not required by law. Electronically signed by: Sacha Wood M.D. 04/15/2023 7:15 AM
[2023-04-15 07:22] LABS: Estimated Average Glucose 134 mg/dl; Hemoglobin A1C 6.3 % (4.5-5.6)
[2023-04-15] MEDS: busPIRone 5 MG TAB PO PRN ×2 (08:58→09:16)
[2023-04-15] MEDS ORDERED: FLUoxetine HCL 20 MG CAP PO SCH (09:00)
[2023-04-15] MEDS ORDERED: lisinopril 20 MG TAB PO SCH (09:00)
[2023-04-15] MEDS ORDERED: APIXABAN 5 MG TABLET PO SCH (09:00)
[2023-04-15] MEDS ORDERED: NON-FORMULARY MEDICATION (Iron,Carbonyl-Vitamin C [Vitron-C] 65 mg iron- 125 mg Tablet,Del PO SCH (09:00)
[2023-04-15] MEDS ORDERED: METOPROLOL SUCC 25MG EXT REL TAB PO SCH (09:00)
[2023-04-15] MEDS ORDERED: FERROUS SULFATE 325 MG TAB PO SCH (09:00)
[2023-04-15] MEDS ORDERED: PANTOprazole 40 MG TAB PO SCH (09:00)
[2023-04-15] MEDS ORDERED: MULTIVITAMIN TAB PO SCH (09:00)
[2023-04-15] MEDS ORDERED: ASCORBIC ACID 500 MG TAB PO SCH (09:00)
[2023-04-15] MEDS ORDERED: FUROSEMIDE 40 MG TAB PO SCH (09:00)
[2023-04-15] MEDS ORDERED: ROFLUMILAST 500 MCG TAB PO SCH (09:00)
[2023-04-15] MEDS ORDERED: CYANOCOBALAMIN (B-12) 500 MCG TABLET PO SCH (09:00)
[2023-04-15] MEDS ORDERED: UMECLIDINIUM BROMIDE 62.5MCG/BLISTER 7 PUFFS/INHALER INH SCH (09:00)
[2023-04-15] MEDS ORDERED: FLUTICASONE/VILANTEROL 200/25MCG 14 PUFFS/INHALER INH SCH (09:00)
[2023-04-15] MEDS ORDERED: ISOSORBIDE MONO EXTENDED REL 60 MG TABCR PO SCH (09:00)
[2023-04-15] MEDS ORDERED: ASPIRIN 81 MG CHEW PO SCH (09:00)
[2023-04-15] MEDS ORDERED: FLUTICASONE PROPIONATE NA SPR 16 GM BTL SCH (09:00)
--- NOTE | 2023-04-15 09:18 | Cardiology Consultation ---
Date of Consultation April 15, 2023 Assessment & Plan (1) Unstable angina: (2) NSTEMI (non-ST elevated myocardial infarction): (3) Multi-vessel coronary artery stenosis: (4) Peripheral arterial disease: (5) Anemia: (6) PTSD (post-traumatic stress disorder): Plan Complex 77-year-old male admitted with resting chest discomfort consistent with unstable angina, evaluation revealing evidence of NSTEMI. Patient with known significant multivessel coronary artery disease including a 100% occluded RCA and a 100% occluded left circumflex with mild mid LAD stenosis via remote (April 2005) cardiac catheterization at [facility]. Complicating matters include significant peripheral arterial disease, posttraumatic stress disorder secondary to medical procedures, moderate anemia, renal dysfunction, possible need for anticoagulation. Options of management discussed. For now, continue beta- levy, ASA, statin, and PRN sublingual nitroglycerin. Maintain NPO status. Hold Eliquis and furosemide this AM. Echocardiogram results and evaluation by Dr. Ventura pending. Supervising Physician Co-Signing Physician Notes 77 year old male admitted with CP and NSTEMI. Currently pain- free. + ischemic ECG changes on admission. Echo demonstrates moderately reduced LV systolic function with inferior, lateral, and posterior wall motion abnormality. PE: VSS. Gen: NAD, AAO x 3. Heart: Regular rhythm. Normal S1 S2. 2/6 AUNDREA. Pulm: Clear B/L. No rales/ rhonchi. +expiratory wheeze. Neuro: No focal deficit. A/P: Agree with PA-C history, physical exam, assessment and plan. Add IV heparin and topical nitrates. Hold eliquis and imdur. Continue aspirin and statin therapy. Recommend transfer to tertiary care facility for cardiac catheterization +/- complex interventon vs. surgical evaluation. I spent a total of 55 minutes on the date of service in preparation, delivery, and documentation of the care provided to this patient, excluding any time spent in the performance of separately billed services. History of Present Illness Reason for Consultation: Chest pain, NSTEMI Requesting Physician: Dr. Coombs Attending Physician: Dr. Vargas History of Present Illness Mr. Walter Don is a complex 77-year-old male who is being seen at the request of Dr. Coombs. Reason for consultation is chest pain. Last night around 5 PM patient developed a "real sharp pain" in the chest that lasted for 7 to 8 seconds and resolved spontaneously. Later last evening he went to bed early because he felt more tired than usual. He started having problems breathing and developed a significant tightness in his chest that was associated with dyspnea for which he summoned EMS. While waiting for EMS arrival he took 2 baby aspirin. Upon EMS arrival patient was given 2 more baby aspirin and was administered supplemental oxygen with gradual improvement in the discomfort. Patient notes resolution of the chest tightness correction to the hospital. EKG on presentation revealed sinus rhythm at 83 bpm with a first- degree AV block with worsening inferolateral ST segment depression. High- sensitivity troponin elevated at 49.9 and 331.5 then 383.8 pg/mL. Resting echocardiography was obtained just prior to my evaluation (interpretation pending) with patient noting discomfort in the chest during the echo that was gradually aided by supplemental oxygen. Creatinine this morning was 1.37. Hemoglobin this morning was 9.0. Last dose of Eliquis was in the PM of 04/14. Chest x-ray on admission revealed cardiomegaly with emphysema, mild pulmonary vascular congestion, and a right basilar consolidation. Past Medical and Surgical History: Multivessel coronary artery disease. - May 08, 2005 cardiac catheterization ([facility], Dr. Kelly) demonstrated multivessel coronary artery disease with a 100% occluded proximal RCA with distal [id number] collaterals from a high atrial circumflex branch, 100% occlusion of the proximal left circumflex, and a 30% mid LAD stenosis. - April 01, 2023 Lexiscan Nuclear Stress Test: Moderate amount of ischemia in the inferior and inferior basilar myocardium. These findings are most consistent with a right coronary or left circumflex arteries. - Preserved LV systolic function Moderate aortic valve stenosis via July 2022 resting echocardiogram Frequent PVCs ZIO monitor with multiple episodes of SVT which may be consistent with PAF per d ocumentation leading to initiation of Eliquis anticoagulation in November 2022 Peripheral vascular disease with 100% occlusion of the right common femoral artery and 50% stenosis in the right common iliac artery via April 2005 angiography. Posttraumatic stress disorder secondary medical procedures Adenocarcinoma of the lung treated with radiation. 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 History of peptic ulcer disease as a teenager Family History: Father killed in an automobile accident. Mother CVA. Brother with IA at 55. Social History: Longstanding tobacco user, smoking and upwards of 5 packs/day, currently smoking 1.5 packs/day. Social alcohol. 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 . Allergies Allergy/AdvReac Type Severity Reaction Status Date / Time acetaminophen AdvReac Severe SEVERE Verified 04/14/23 23:16 HEADACHE-PER PT "BRAIN SWELLS". Home Medications Medication Instructions Recorded Confirmed Type albuterol sulfate 2.5 mg/3 mL 2.5 mg inhalation DIRECTED PRN 04/14/23 04/14/23 History (0.083 %) solution for nebulization Shortness Of Breath Or Wheezing albuterol sulfate 90 mcg/actuation 2 puff inhalation QID PRN 04/14/23 04/14/23 History aerosol inhaler (Ventolin HFA) Shortness Of Breath Or Wheezing apixaban 5 mg tablet (Eliquis) 5 mg PO BID 04/14/23 04/14/23 History aspirin 81 mg chewable tablet 81 mg PO QAM 04/14/23 04/14/23 History atorvastatin 80 mg tablet 80 mg PO HS 04/14/23 04/14/23 History buspirone 10 mg tablet 10 - 20 mg PO BID PRN Anxiety 04/14/23 04/14/23 History clonazepam 0.5 mg tablet 0.5 mg PO DIRECTED PRN 04/14/23 04/14/23 History NEEDED PER [facility]. colchicine 0.6 mg tablet 0.6 mg PO DIRECTED PRN GOUT 04/14/23 04/14/23 History FLARE UP cyanocobalamin (vitamin B-12) 1,000 mcg PO QAM 04/14/23 04/14/23 History 1,000 mcg tablet (Vitamin B-12) fluoxetine 20 mg capsule 60 mg PO QAM 04/14/23 04/14/23 History fluticasone propionate 230 2 puff inhalation BID 04/14/23 04/14/23 History mcg-salmeterol 21 mcg/actuation HFA inhaler (Advair HFA) fluticasone propionate 50 2 spray intranasal QAM 04/14/23 04/14/23 History mcg/actuation nasal spray,suspension furosemide 40 mg tablet (Lasix) 40 mg PO QAM 04/14/23 04/14/23 History gabapentin 300 mg capsule 300 mg PO HS 04/14/23 04/14/23 History iron,carbonyl 65 mg-vitamin C 125 1 tab PO QAM 04/14/23 04/14/23 History mg tablet,delayed release (Vitron-C) isosorbide mononitrate 60 mg 60 mg PO QAM 04/14/23 04/14/23 History tablet,extended release 24 hr lisinopril 20 mg tablet 20 mg PO QAM 04/14/23 04/14/23 History metformin 1,000 mg tablet 1,000 mg PO QAM 04/14/23 04/14/23 History metoprolol succinate 25 mg 25 mg PO QAM 04/14/23 04/14/23 History tablet,extended release 24 hr mirtazapine 15 mg tablet 7.5 mg PO HS 04/14/23 04/14/23 History multivitamin 1 tab PO QAM 04/14/23 04/14/23 History omeprazole 20 mg capsule,delayed 20 mg PO QAM 04/14/23 04/14/23 History release risperidone 0.5 mg tablet 0.5 mg PO 04/14/23 04/14/23 History roflumilast 500 mcg tablet 500 mcg PO QAM 04/14/23 04/14/23 History tiotropium bromide 18 mcg capsule 1 cap inhalation QA 04/14/23 04/14/23 History with inhalation device (Spiriva with HandiHaler) Patient History Social History Smoking Status: Current every day smoker Tobacco Type: Cigarettes Cigarettes Per Day: 1.5 ppd; Do You Dip or Chew Tobacco: No; Tobacco Cessation Education Requested by Patient: No Hx Alcohol Use: No Hx Substance Use: No Preferred Language: Tamazight Communication Ability: Effective Retail Representative Required: No Beliefs That Will Affect Care: None Current Living Situation: Spouse Current Living Situation Comment: 2 story house, bedroom and bathroom on 1st floor Other Information That Helps Us Care for You: No Feels Safe at Home: Yes Safety Concerns: Feels Safe At This Time Assistive Devices: BiPap, Denture - Upper, Denture - Lower and Hospital Bed Review of Systems Review of Systems: Complete review of systems is otherwise as stated above, negative, noncontributory. Physical Exam Physical Exam: General: A&Ox3. NAD. HENT: Normocephalic. Atraumatic. Eyes: PER. Conjunctiva pink, sclera pale . Neck: Bilateral carotid bruits. No JVD. Heart: Regular at 90 bpm. Grade II/ systolic ejection murmur. No diastolic murmur. No rub. Lungs: Diminished. Decreased. Diffuse expiratory wheeze. No rales. Abdomen: +BS. + Bruit. Soft. Nontender. No masses or organomegaly. Extremities: No clubbing, cyanosis, or edema. Limited neurological examination is without focal deficits. Pulses: radial=2/4 on the right, posterior tibial and dorsalis pedis pulses were not appreciated in either lower extremity. Results & Data Vital Signs (Past 12 Hours) Vital Signs Temp Pulse Pulse Resp BP BP BP 04/15/23 09:11 04/15/23 08:43 86 04/15/23 08:19 101 H 18 04/15/23 07:29 36 C L 94 H 19 131/71 04/15/23 04:00 04/15/23 03:42 36.7 C 84 18 131/70 04/15/23 03:41 80 04/15/23 03:06 77 04/15/23 02:53 74 16 118/53 L 04/15/23 01:32 73 16 110/59 L 04/15/23 00:22 75 16 111/53 L 04/14/23 22:42 78 04/14/23 22:33 98 H 04/14/23 22:10 98 H 22 04/14/23 22:10 36.5 C 98 H 22 112/65 04/14/23 22:10 04/14/23 22:10 36.5 C 98 H 22 112/65 Pulse Ox O2 Del Method O2 Flow Rate 04/15/23 09:11 Nasal Cannula 2 04/15/23 08:43 04/15/23 08:19 95 Nasal Cannula 4 04/15/23 07:29 93 Room Air 04/15/23 04:00 Room Air 04/15/23 03:42 92 Room Air 04/15/23 03:41 04/15/23 03:06 04/15/23 02:53 96 Nasal Cannula 2 04/15/23 01:32 96 Room Air 04/15/23 00:22 97 Room Air 04/14/23 22:42 04/14/23 22:33 93 Room Air 04/14/23 22:10 93 Room Air 04/14/23 22:10 93 Room Air 04/14/23 22:10 93 Room Air 04/14/23 22:10 93 Room Air Laboratory Results Cardiac Enzymes 04/14/23 04/15/23 04/15/23 Range/Units 22:35 01:45 05:24 AST 17 (13-39) U/L Troponin I High Sens 49.9 H 331.5 H* D 383.8 H* (0-20) pg/ml B-Natriuretic Peptide 708 H (0-100) pg/ml Coagulation 04/14/23 Range/Units 22:35 PT 10.9 (9.0-12.0) Seconds B-Natriuretic Peptide 708 H (0-100) pg/ml CBC 04/14/23 04/15/23 Range/Units 22:35 05:24 WBC 6.71 5.44 (4.8-10.8) K/ul RBC 3.43 L 3.48 L (4.70-6.10) M/uL Hgb 8.7 L 9.0 L (14.0-18.0) g/dl Hct 29.4 L 29.4 L (42.0-52.0) % Plt Count 245 227 (130-400) K/uL Neut # (Auto) 4.47 5.09 (1.40-6.50) K/uL Lymph # (Auto) 1.52 0.28 L (1.20-3.40) K/uL [place] # (Auto) 0.65 H 0.04 L (0.11-0.59) K/uL Eos # (Auto) 0.00 0.00 (0.00-0.50) K/uL Baso # (Auto) 0.05 0.02 (0.00-0.20) K/uL Comprehensive Metabolic Panel 04/14/23 04/15/23 Range/Units 22:35 05:24 Sodium 142 140 (136-145) mmol/L Potassium 4.0 4.7 (3.5-5.1) mmol/L Chloride 107 108 H (98-107) mmol/L Carbon Dioxide 28 24 (21-32) mmol/L BUN 27 H 27 H (6-23) mg/dl Creatinine 1.55 H 1.37 (0.6-1.4) mg/dl Glucose 130 H 185 H (70-99(Fasting)) mg/dl Calcium 8.9 8.9 (8.6-10.3) mg/dl AST 17 (13-39) U/L ALT 13 (7-52) U/L Alkaline Phosphatase 111 H (34-104) U/L Total Protein 6.4 (6.0-8.3) gm/dl Albumin 3.6 (3.4-5.0) gm/dl Intake and Output 04/14/23 04/15/23 04/15/23 22:59 06:59 14:59 Other: Other Intake Source NPO Weight 95 kg 93.6 kg Weight Measurement Method Built in [facility] Built in [facility] Diagnostic Findings Telemetry: Sinus throughout, with a first-degree AV block, heart rates predominantly in the 70s to 90s (5) Anemia Anemia type: iron deficiency Iron deficiency anemia type: unspecified iron deficiency Qualified Code(s): D50.9 - Iron deficiency anemia, unspecified
--- NOTE | 2023-04-15 11:09 | Electrocardiogram Report ---
Test Reason : Blood Pressure : / mmHG Vent. Rate : 083 BPM Atrial Rate : 083 BPM P-R Int : 266 ms QRS Dur : 090 ms QT Int : 384 ms P-R-T Axes : 080 004 -33 degrees QTc Int : 451 ms Sinus rhythm with 1st degree A-V block Abnormal ECG When compared with ECG of 24-NOV-2013 13:10, T wave inversion now evident in Lateral leads QT has lengthened Confirmed by Stan Spence ([id number]) on 04/15/2023 11:08:37 AM Referred By: REFERRED SELF Confirmed By:Seth Spence
--- NOTE | 2023-04-15 11:11 | Electrocardiogram Report ---
Test Reason : Blood Pressure : / mmHG Vent. Rate : 089 BPM Atrial Rate : 089 BPM P-R Int : 168 ms QRS Dur : 084 ms QT Int : 384 ms P-R-T Axes : 000 -14 267 degrees QTc Int : 467 ms Normal sinus rhythm 1st degree AV block ST and T wave changes concerning for ischemia Prolonged QT Abnormal ECG When compared with ECG of 14-APR-2023 22:33, (unconfirmed) UT interval has decreased Nonspecific T wave abnormality, worse in Inferior leads Confirmed by Stan Spence ([id number]) on 04/15/2023 11:11:32 AM Referred By: REFERRED SELF Confirmed By:Seth Spence
[2023-04-15 11:34] LABS: Influenza A virus by PCR Negative (Neg); Influenza B virus by PCR Negative (Neg); RSV by PCR Negative (Neg); SARS CoV2 RNA(COVID-19) Ceph NEGATIVE (Negative)
[2023-04-15] MEDS ORDERED: Heparin IV Adult Wt-Based Standard *NO* INITIAL Bolus Protocol IV SCH (12:06)
[2023-04-15] MEDS: NITROGLYCERIN 2% OINTMENT 30GM TUBE EXT SCH ×2 (13:11→17:30)
--- NOTE | 2023-04-15 13:19 | Hospitalist Progress Note ---
Date of Service April 15, 2023 Assessment & Plan (1) Acute non-ST elevation myocardial infarction (NSTEMI): Plan: Patient is a 77 yr male with H/O Type 2 diabetes, diabetic peripheral neuropathy, dyslipidemia, COPD, malignant neoplasm of right upper lobe of lung s/p radiation, obstructive obstructive sleep apnea on BiPAP, ongoing tobacco abuse, history of nonsustained ventricular tachycardia, abdominal aortic aneurysm, hypertension, CAD, peripheral artery disease, carotid stenosis, aortic valve stenosis, GERD, CKD stage III,, gout, anemia of chronic disease, history of CVA, PTSD, obesity, depression with anxiety was brought in because of chest pain. Around 6 PM he had chest pain moderate in severity lasted less than 1 minute and couple hours later he felt short of breath and chest pressure which lasted for about 45 minutes to 1 hour and came to ER. Currently patient is resting comfortably. He denies any chest pain or shortness of breath at this time. Denies any headache. No runny nose or sore throat. No cough. No fevers. No nausea. No sweating. No abdominal pain. Normal bowel and bladder movements. States his stools are always black because he takes iron pills. No hematuria. Patient is somewhat hard of hearing Non-ST elevated MS Unstable Angina H/O Severe CAD --Patient had cardiac catheterization in 2005 which showed 100% occlusion of the right coronary and left circumflex arteries with only artery being patent LAD providing collaterals to the 2 occluded arteries. --CXR:Cardiomegaly and emphysema with mild pulmonary vascular congestion. There is right basilar consolidation. Correlate clinically for symptoms of pneumonia/aspiration pneumonitis. Radiographic follow-up to resolution is recommended. The highly suspicious right lower lobe groundglass lesion seen by CT on 04/25/2018 cannot be assessed by x-ray. Outpatient follow up with pulmonology is recommended --ECHO: Left ventricle systolic function is moderately reduced. EF 35 to 40%. There is a large sized inferior, posterior and lateral wall motion abnormality with hypokinesis to akinesis of the segments. Aortic valve is moderately calcified. Moderate valvular arctic stenosis. Mild to moderate mitral regurgitation -- Troponin elevation noted -- EKG concerning for ischemic changes --Continue aspirin, Lipitor, metoprolol, lisinopril, isosorbide Hold Eliquis for need for intervention Continue IV heparin -- Appreciate cardiology input Given significant coronary artery disease, needs complex cardiac catheterization with or without complex intervention versus surgical evaluation by CT surgery, patient needs to be transferred to tertiary care facility for further management. Patient is accepted at [facility] by Dr.William Nicholas. Waiting for bed availability and transportation. Pulmonary congestion Likely secondary to ischemic cardiomyopathy CXR, ECHO as above Continue home Lasix Monitor volume status, I's and O's, daily weight Anemia of Chronic disease Iron deficiency anemia Hb at baseline Hemoglobin was 9.2 on 2022, 8.6 on 03/10/2023, 9.5 on April 07, 2023 Had EGD and colonoscopy in December 2022. EGD showed gastric polyp. Colonoscopy and polypectomy and GI recommended plan for repeat colonoscopy in 2 years No acute bleeding issues Monitor CBC H/O COPD Ongoing tobacco abuse smokes 1.5 pack of cigarettes daily Needs counseling Continue home inhalers and nebs as needed DM II HbA1c 6.3 Hold p.o. medications Continue Insulin sliding scale Monitor blood sugars H/O Lung Cancer s/p radiation Obstructive sleep apnea On BiPAP Hypertension On Imdur, metoprolol and lisinopril monitor BP CAD Peripheral vascular disease H/O Aortic stenosis On aspirin and statin and Eliquis CKD stage III Cr near baseline Monitor renal function Avoid nephrotoxic agents as able H/O Abdominal aortic aneurysm Needs follow-up as outpatient Continue home medications Depression and anxiety Continue fluoxetine, Remeron and risperidone DVT Px: IV Heparin Eliquis on hold Code Status Full code Disposition Plan to be transferred to tertiary care facility when bed available. Admission and Anticipated Discharge Date Admission Date: April 15, 2023 Subjective Patient is seen and examined at bedside Had chest pain this morning which resolved after placing on supplemental oxygen Denies any dizziness, significant dyspnea, nausea, abdominal pain currently Currently on IV heparin Discussed with cardiology today Review of Systems Review of Systems: All systems reviewed & are unremarkable except as noted in Subjective Physical Exam Physical Exam: Physical Exam: Vitals signs as noted above General Appearance:Obese, no apparent distress Head: normocephalic, Atraumatic Eyes: normal inspection, EOMI Neck: supple, Trachea midline Respiratory/Chest: Decrease coarse breath sounds, CTA, No accessory muscle use Cardiovascular: S1, S2, + murmur Abdomen/GI:Soft, Non tender, Bowel sounds present Extremities/Musculoskeletal:normal inspection, Trace pedal edema Neurologic/Psych:AAOX3, grossly no focal neurological deficits Skin: normal color, warm Results & Data Results & Data Vital Signs (Past 12 Hours) Vital Signs Temp Pulse Pulse Resp BP BP Pulse Ox 04/15/23 11:59 36.8 C 77 20 112/61 94 04/15/23 09:11 04/15/23 08:43 86 04/15/23 08:19 101 H 18 95 04/15/23 07:29 36 C L 94 H 19 131/71 93 04/15/23 04:00 04/15/23 03:42 36.7 C 84 18 131/70 92 04/15/23 03:41 80 04/15/23 03:06 77 04/15/23 02:53 74 16 118/53 L 96 04/15/23 01:32 73 16 110/59 L 96 O2 Del Method O2 Flow Rate 04/15/23 11:59 Nasal Cannula 4 04/15/23 09:11 Nasal Cannula 2 04/15/23 08:43 04/15/23 08:19 Nasal Cannula 4 04/15/23 07:29 Room Air 04/15/23 04:00 Room Air 04/15/23 03:42 Room Air 04/15/23 03:41 04/15/23 03:06 04/15/23 02:53 Nasal Cannula 2 04/15/23 01:32 Room Air Laboratory Results Short CBC 04/14/23 04/15/23 Range/Units 22:35 05:24 WBC 6.71 5.44 (4.8-10.8) K/ul Hgb 8.7 L 9.0 L (14.0-18.0) g/dl Hct 29.4 L 29.4 L (42.0-52.0) % Plt Count 245 227 (130-400) K/uL BMP 04/14/23 04/15/23 22:35 05:24 Sodium 142 140 Potassium 4.0 4.7 Chloride 107 108 H Carbon Dioxide 28 24 BUN 27 H 27 H Creatinine 1.55 H 1.37 Glucose 130 H 185 H Calcium 8.9 8.9 Liver Function 04/14/23 Range/Units 22:35 Total Bilirubin 0.3 (0.2-1.0) mg/dl AST 17 (13-39) U/L ALT 13 (7-52) U/L Alkaline Phosphatase 111 H (34-104) U/L Albumin 3.6 (3.4-5.0) gm/dl
[2023-04-15 13:37] LABS: Partial Thromboplastin Ratio 0.7; Partial Thromboplastin Time 21 Seconds (21-31); Prothrombin Time 10.9 Seconds (9.0-12.0)
--- NOTE | 2023-04-15 18:54 | Discharge Summary ---
Date of Service April 15, 2023 Admission HPI Per Admitting Provider 77-year-old male with past medical history significant for type 2 diabetes, diabetic peripheral neuropathy, dyslipidemia, COPD, malignant neoplasm of right upper lobe of lung s/p radiation, obstructive obstructive sleep apnea on BiPAP, ongoing tobacco abuse, history of nonsustained ventricular tachycardia, abdominal aortic aneurysm, hypertension, CAD, peripheral artery disease, carotid stenosis, aortic valve stenosis, GERD, CKD stage III,, gout, anemia of chronic disease, history of CVA, PTSD, obesity, depression with anxiety was brought in because of chest pain. Around 6 PM he had chest pain moderate in severity lasted less than 1 minute and couple hours later he felt short of breath and chest pressure which lasted for about 45 minutes to 1 hour and came to ER. Currently patient is resting comfortably. He denies any chest pain or shortness of breath at this time. Denies any headache. No runny nose or sore throat. No cough. No fevers. No nausea. No sweating. No abdominal pain. Normal bowel and bladder movements. States his stools are always black because he takes iron pills. No hematuria. Patient is somewhat hard of hearing Past medical history. As mentioned above Past surgical history. Bronchoscopy, colonoscopy EGD, bilateral cataract. Social history. . Smokes 1.5 pack cigarettes daily. No alcohol use. No drug use. Family history. Mother had colon cancer. Sister had Crohn's disease. Brother had heart disease. Admission Exam Per Admitting Provider General- Not in distress Head- atraumatic Eyes- PERRL. ENT- oropharynx clear Neck- supple, no JVD. Lungs- Diminished b/l breath sounds, no wheezing or crackles. Heart- regular rhythm; no murmur, no gallop. Abdomen- normal bowel sounds, soft, nontender, no distension. Extremities- mild pretibial edema, no erythema seen. Neuro- alert, oriented x 3; PERRL, no facial palsy; no dysarthria; moves extremities. Skin- warm & dry Principal Diagnosis Unstable angina Severe coronary artery disease Discharge Data Allergies Allergy/AdvReac Type Severity Reaction Status Date / Time acetaminophen AdvReac Severe SEVERE Verified 04/14/23 23:16 HEADACHE-PER PT "BRAIN SWELLS". Consultations 04/15/23 00:19 ED Decision to Admit Stat 04/15/23 08:00 Consult Cardiology Routine Ordered Studies Laboratory Results WBC 5.44 K/ul (4.8-10.8) 04/15/23 05:24 RBC 3.48 M/uL (4.70-6.10) L 04/15/23 05:24 Hgb 9.0 g/dl (14.0-18.0) L 04/15/23 05:24 Hct 29.4 % (42.0-52.0) L 04/15/23 05:24 MCV 84.5 fL (80.0-100.0) 04/15/23 05:24 MCH 25.9 pg (25.0-34.0) 04/15/23 05:24 MCHC 30.6 g/dL (32.0-36.0) L 04/15/23 05:24 RDW Std Deviation 54.5 fL (36.4-46.3) H 04/15/23 05:24 RDW Coeff of Adam 17.7 % (11.5-14.5) H 04/15/23 05:24 Plt Count 227 K/uL (130-400) 04/15/23 05:24 MPV 9.4 fL (9.4-12.4) 04/15/23 05:24 Immature Gran % (Auto) 0.2 % 04/15/23 05:24 Neut % (Auto) 93.6 % 04/15/23 05:24 Lymph % (Auto) 5.1 % 04/15/23 05:24 [place] % (Auto) 0.7 % 04/15/23 05:24 Eos % (Auto) 0.0 % 04/15/23 05:24 Baso % (Auto) 0.4 % 04/15/23 05:24 Neut # (Auto) 5.09 K/uL (1.40-6.50) 04/15/23 05:24 Lymph # (Auto) 0.28 K/uL (1.20-3.40) L 04/15/23 05:24 [place] # (Auto) 0.04 K/uL (0.11-0.59) L 04/15/23 05:24 Eos # (Auto) 0.00 K/uL (0.00-0.50) 04/15/23 05:24 Baso # (Auto) 0.02 K/uL (0.00-0.20) 04/15/23 05:24 Immature Gran # (Auto) 0.01 K/uL (0.01-0.20) 04/15/23 05:24 PT 10.9 Seconds (9.0-12.0) 04/15/23 12:41 INR 1.0 (0.9-1.1) 04/15/23 12:41 APTT 21 Seconds (21-31) 04/15/23 12:41 PTT Ratio 0.7 04/15/23 12:41 Sodium 140 mmol/L (136-145) 04/15/23 05:24 Potassium 4.7 mmol/L (3.5-5.1) 04/15/23 05:24 Chloride 108 mmol/L (98-107) H 04/15/23 05:24 Carbon Dioxide 24 mmol/L (21-32) 04/15/23 05:24 Anion Gap 8 (3-11) 04/15/23 05:24 BUN 27 mg/dl (6-23) H 04/15/23 05:24 Creatinine 1.37 mg/dl (0.6-1.4) 04/15/23 05:24 Est Cr Clr Drug Dosing 49.0 ml/min 04/15/23 05:24 Est GFR ( Amer) 56.5 ml/min 04/15/23 05:24 Est GFR (Non-Af Amer) 48.7 ml/min 04/15/23 05:24 BUN/Creatinine Ratio 19.7 (10-20) 04/15/23 05:24 Glucose 185 mg/dl (70-99(Fasting)) H 04/15/23 05:24 POC Glucose 153 mg/dl (70-99) H 04/15/23 16:29 Estimat Average Glucose 134 mg/dl 04/15/23 05:24 Hemoglobin A1c 6.3 % (4.5-5.6) H 04/15/23 05:24 Calcium 8.9 mg/dl (8.6-10.3) 04/15/23 05:24 Magnesium 1.9 mg/dl (1.7-2.4) 04/15/23 05:24 Total Bilirubin 0.3 mg/dl (0.2-1.0) 04/14/23 22:35 AST 17 U/L (13-39) 04/14/23 22:35 ALT 13 U/L (7-52) 04/14/23 22:35 Alkaline Phosphatase 111 U/L (34-104) H 04/14/23 22:35 Troponin I High Sens 1121.0 pg/ml (0-20) H* D 04/15/23 16:55 B-Natriuretic Peptide 708 pg/ml (0-100) H 04/14/23 22:35 Total Protein 6.4 gm/dl (6.0-8.3) 04/14/23 22:35 Albumin 3.6 gm/dl (3.4-5.0) 04/14/23 22:35 Globulin 2.8 gm/dl (2.5-4.0) 04/14/23 22:35 Albumin/Globulin Ratio 1.3 (0.9-2) 04/14/23 22:35 Lipase 54 U/L (11-82) 04/14/23 22:35 SARS-CoV-2 (PCR) NEGATIVE (Negative) 04/14/23 22:32 Influenza Type A (PCR) Negative (Neg) 04/14/23 22:32 Influenza Type B (PCR) Negative (Neg) 04/14/23 22:32 RSV (RT-PCR) Negative (Neg) 04/14/23 22:32 Impressions Chest X-Ray 04/14/23 22:33 SINGLE VIEW CHEST CLINICAL HISTORY: Atypical chest pain. FINDINGS: An AP, portable, upright chest radiograph is compared to study dated 05/27/2016 and correlated with chest CT dated 04/25/2018. The heart is enlarged noting atherosclerotic calcification of the thoracic aorta. Emphysema and chronic interstitial thickening is similar to previous. There is mild pulmonary vascular congestion. Airspace consolidation is seen at the right lung base. Milder opacities are noted at the left lung base. No large pleural effusion or pneumothorax is identified. The skeletal structures are osteopenic. The bony thorax is grossly intact. IMPRESSION: 1. Cardiomegaly and emphysema with mild pulmonary vascular congestion. 2. There is right basilar consolidation. Correlate clinically for symptoms of pneumonia/aspiration pneumonitis. Radiographic follow-up to resolution is recommended. 3. The highly suspicious right lower lobe groundglass lesion seen by CT on 04/25/2018 cannot be assessed by x-ray. Outpatient follow up with pulmonology is recommended ACT 112: Negative or not required by law. Electronically signed by: Sacha Wood M.D. 04/15/2023 7:15 AM Hospital Course (1) Acute non-ST elevation myocardial infarction (NSTEMI): Patient is a 77 yr male with H/O Type 2 diabetes, diabetic peripheral neuropathy, dyslipidemia, COPD, malignant neoplasm of right upper lobe of lung s/p radiation, obstructive obstructive sleep apnea on BiPAP, ongoing tobacco abuse, history of nonsustained ventricular tachycardia, abdominal aortic aneurysm, hypertension, CAD, peripheral artery disease, carotid stenosis, aortic valve stenosis, GERD, CKD stage III,, gout, anemia of chronic disease, history of CVA, PTSD, obesity, depression with anxiety was brought in because of chest pain. Around 6 PM he had chest pain moderate in severity lasted less than 1 minute and couple hours later he felt short of breath and chest pressure which lasted for about 45 minutes to 1 hour and came to ER. Currently patient is resting comfortably. He denies any chest pain or shortness of breath at this time. Denies any headache. No runny nose or sore throat. No cough. No feve rs. No nausea. No sweating. No abdominal pain. Normal bowel and bladder movements. States his stools are always black because he takes iron pills. No hematuria. Patient is somewhat hard of hearing Non-ST elevated OR Unstable Angina H/O Severe CAD --Patient had cardiac catheterization in 2005 which showed 100% occlusion of the right coronary and left circumflex arteries with only artery being patent LAD providing collaterals to the 2 occluded arteries. --CXR:Cardiomegaly and emphysema with mild pulmonary vascular congestion. There is right basilar consolidation. Correlate clinically for symptoms of pneumonia/aspiration pneumonitis. Radiographic follow-up to resolution is recommended. The highly suspicious right lower lobe groundglass lesion seen by CT on 04/25/2018 cannot be assessed by x-ray. Outpatient follow up with pulmonology is recommended --ECHO: Left ventricle systolic function is moderately reduced. EF 35 to 40%. There is a large sized inferior, posterior and lateral wall motion abnormality with hypokinesis to akinesis of the segments. Aortic valve is moderately calcified. Moderate valvular arctic stenosis. Mild to moderate mitral regurgitation -- Troponin elevation noted -- EKG concerning for ischemic changes --Continue aspirin, Lipitor, metoprolol, lisinopril, isosorbide Hold Eliquis for need for intervention Continue IV heparin -- Appreciate cardiology input Given significant coronary artery disease, needs complex cardiac catheterization with or without complex intervention versus surgical evaluation by CT surgery, patient needs to be transferred to tertiary care facility for further management. Patient is accepted at [facility] by Dr.William Nicholas. Pulmonary congestion Likely secondary to ischemic cardiomyopathy CXR, ECHO as above Continue home Lasix Monitor volume status, I's and O's, daily weight Anemia of Chronic disease Iron deficiency anemia Hb at baseline Hemoglobin was 9.2 on 2022, 8.6 on 03/10/2023, 9.5 on April 07, 2023 Had EGD and colonoscopy in December 2022. EGD showed gastric polyp. Colonoscopy and polypectomy and GI recommended plan for repeat colonoscopy in 2 years No acute bleeding issues Monitor CBC H/O COPD Ongoing tobacco abuse smokes 1.5 pack of cigarettes daily Needs counseling Continue home inhalers and nebs as needed DM II HbA1c 6.3 Hold p.o. medications Continue Insulin sliding scale Monitor blood sugars H/O Lung Cancer s/p radiation Obstructive sleep apnea On BiPAP Hypertension On Imdur, metoprolol and lisinopril monitor BP CAD Peripheral vascular disease H/O Aortic stenosis On aspirin and statin and Eliquis CKD stage III Cr near baseline Monitor renal function Avoid nephrotoxic agents as able H/O Abdominal aortic aneurysm Needs follow-up as outpatient Continue home medications Depression and anxiety Continue fluoxetine, Remeron and risperidone DVT Px: IV Heparin Eliquis on hold Code Status Full code Disposition [facility] Total Time Total Time Spent Total Time Spent (In Minutes): 58 minutes Discharge Plan Discharge Items Patient Disposition: Transfer Acute Care Hospital Reason For Visit: CHEST PAIN, NSTEMI Discharge Diagnosis: Unstable angina Severe coronary artery disease Activity: Per Instructions section Exercise/Sports: Wait until after follow-up appointment Non-emergency contact: Primary Care Provider and Gas Load Dispatcher Call non-emergency contact if: you have any medication questions, your symptoms worsen, your pain is concerning for you and you have a fever Follow-up/Referrals: Johnnie Newby MD [Primary Care Provider] - Diet: Carb Consistent or DM2 and Heart Healthy Addtl Attending Provider Instructions: Follow-up with your primary care physician in 1 week upon discharge from the hospital Follow-up with your evening anchor Dr. Jose Nicholas at [facility] for further management. Seek immediate medical attention if your symptoms reoccur or worsen Please take all medications as instructed on discharge list below. Please call if you have any questions or problems. You can reach a [facility] hospitalist on duty at [facility] 24 hours a day by calling [phone] Home Care: * Take your medications exactly as directed. Don't skip doses. * Remember that recovery after a heart attack takes time. Plan to rest for at lease 4-8 weeks while you recover. Then return to normal activity when your doctor says it's okay. * Ask your doctor about joining a heart rehabilitation program. * Tell your doctor if you are feeling depressed. Feelings of sadness are common after a heart attack, but it is important that you speak to someone if you are feeling overwhelmed by these feelings. * If you are having chest pain, call 911 for an ambulance. Do NOT drive yourself to the hospital. * Ask your family members to learn CPR. * Learn to take your own blood pressure and pulse. Keep a record of your results. Ask your doctor when you should seek emergency medical attention. He or she will tell you which blood pressure reading is dangerous. Lifestyle Changes: * Maintain a healthy weight. Get help to lose any extra pounds. * Cut back on salt. * Limit canned, dried, packaged, and fast foods. * Don't add salt to your food. * Season foods with herbs instead of salt when you cook. * Break the smoking habit. Enroll in a stop-smoking program to improve your chances of success. * Limit fatty foods. * Ask your doctor about having your lipid levels checked regularly. * Build up your activity according to your doctor's recommendation. * Ask your doctor when it's okay to resume sexual activity. * Tell your doctor about any erectile dysfunction (ED) medication you are taking. Some ED medications are not safe if you take certain heart medications. * Try to manage stress. Follow Up: It is important for you to keep your follow up appointments with your medical provider. Addtl Public Health Nurse Provider Instructions: Date of Service: April 15, 2023 Current Inpatient Medications Albuterol (Albuterol Hfa 8 Gm Inhaler) 2 puffs INH QID PRN PRN Reason: Shortness Of Breath Or Wheezing Stop: 05/15/23 03:40 Albuterol (Albuterol 0.083% Nebu Soln 3 Ml Vial) 2.5 mg INH Q4H PRN; Protocol PRN Reason: Shortness Of Breath Or Wheezing Stop: 05/15/23 03:40 Last Admin: 04/15/23 08:19 Dose: 2.5 mg Apixaban (Apixaban 5 Mg Tablet) 5 mg PO BID [facility] Stop: 05/15/23 08:59 Last Admin: 04/15/23 12:53 Dose: Not Given Ascorbic Acid (Ascorbic Acid 500 Mg Tab) 250 mg PO [facility] Stop: 05/15/23 08:59 Last Admin: 04/15/23 08:58 Dose: 250 mg Aspirin (Aspirin 81 Mg Chew) 81 mg PO [facility] Stop: 05/15/23 08:59 Last Admin: 04/15/23 08:58 Dose: 81 mg Atorvastatin Calcium (Atorvastatin 40 Mg Tab) 80 mg PO HS [facility] Stop: 05/15/23 20:59 Buspirone HCl (Buspirone 5 Mg Tab) 10 mg PO BID PRN PRN Reason: Anxiety Stop: 05/15/23 03:40 Last Admin: 04/15/23 09:16 Dose: 10 mg Clonazepam (Clonazepam 0.5 Mg Tab) 0.5 mg PO BID PRN PRN Reason: Anxiety Stop: 05/15/23 03:40 Cyanocobalamin (Cyanocobalamin (B-12) 500 Mcg Tablet) 1,000 mcg PO [facility] Stop: 05/15/23 08:59 Last Admin: 04/15/23 08:57 Dose: 1,000 mcg Dextrose (Dextrose 50% 50 Ml Syringe) 25 - 50 ml IV UD PRN; Protocol PRN Reason: Hypoglycemia Protocol Stop: 05/15/23 03:40 Ferrous Sulfate (Ferrous Sulfate 325 Mg Tab) 325 mg PO [facility] Stop: 05/15/23 08:59 Last Admin: 04/15/23 08:58 Dose: 325 mg Fluoxetine HCl (Fluoxetine Hcl 20 Mg Cap) 60 mg PO [facility] Stop: 05/15/23 08:59 Last Admin: 04/15/23 08:57 Dose: 60 mg Fluticasone Propionate (Fluticasone Propionate Na Spr 16 Gm Btl) 2 sprays NA [facility] Stop: 05/15/23 08:59 Last Admin: 04/15/23 09:02 Dose: 2 sprays Fluticasone/Vilanterol (Fluticasone/Vilanterol 200/25mcg 14 Puffs/Inhaler) 1 puffs INH DAILY [facility] Stop: 05/15/23 08:59 Last Admin: 04/15/23 09:01 Dose: 1 puffs Furosemide (Furosemide 40 Mg Tab) 40 mg PO QAM [facility] Stop: 05/15/23 08:59 Last Admin: 04/15/23 12:53 Dose: Not Given Gabapentin (Gabapentin 300 Mg Cap) 300 mg PO HS [facility] Stop: 05/15/23 20:59 Glucagon (Glucagon For Inj 1 Mg Vial) 1 mg SQ UD PRN; Protocol PRN Reason: Hypoglycemia Protocol Stop: 05/15/23 03:40 Glucose (Glucose 10 Tab/Tube) 4 - 8 tab PO UD PRN; Protocol PRN Reason: Hypoglycemia Treatment Stop: 05/15/23 03:40 Glucose (Glucose 40% Gel 15 Gm Tube) 15 - 30 gm PO UD PRN; Protocol PRN Reason: Hypoglycemia Protocol Stop: 05/15/23 03:40 Heparin Sodium/Dextrose (Heparin Sodium/Dextrose) 25,000 units in 500 mls @ 29 mls/hr IV .[id number] [facility]; Protocol Stop: 05/15/23 12:29 Last Admin: 04/15/23 13:10 Dose: 1,450 units/hr, 29 mls/hr Insulin Aspart (Insulin Aspart Per Unit Charge) 0 units SC Q6H [facility] Stop: 05/15/23 05:59 Last Admin: 04/15/23 13:10 Dose: 2 units Isosorbide Mononitrate (Isosorbide [place] Extended Rel 60 Mg Tabcr) 60 mg PO [facility] Stop: 05/15/23 08:59 Last Admin: 04/15/23 08:57 Dose: 60 mg Lisinopril (Lisinopril 20 Mg Tab) 20 mg PO [facility] Stop: 05/15/23 08:59 Last Admin: 04/15/23 08:59 Dose: 20 mg Metoprolol Succinate (Metoprolol Succ 25mg Ext Rel Tab) 25 mg PO [facility] Stop: 05/15/23 08:59 Last Admin: 04/15/23 08:57 Dose: 25 mg Mirtazapine (Mirtazapine Tab 15 Mg Tab) 7.5 mg PO HS [facility] Stop: 05/15/23 20:59 Miscellaneous (Carbohydrates For Hypoglycemia ) 15 - 30 gm PO UD PRN PRN Reason: Hypoglycemia Protocol Stop: 05/15/23 03:40 Multivitamins (Multivitamin Tab) 1 tab PO QAM [facility] Stop: 05/15/23 08:59 Last Admin: 04/15/23 08:59 Dose: 1 tab Nitroglycerin (Nitroglycerin Sl 0.4 Mg/Tab Tab) 0.4 mg SL Q5M PRN PRN Reason: Chest Pain Stop: 05/15/23 03:40 Nitroglycerin (Nitroglycerin 2% Ointment 30gm Tube) 0.5 inch EXT Q6H [facility] Stop: 05/15/23 12:29 Last Admin: 04/15/23 13:11 Dose: 0.5 inch Pantoprazole Sodium (Pantoprazole 40 Mg Tab) 40 mg PO QAM [facility] Stop: 05/15/23 08:59 Last Admin: 04/15/23 08:57 Dose: 40 mg Polyethylene Glycol (Polyethylene (Miralax) 17 Gm Pack) 17 gm PO DAILY PRN PRN Reason: Constipation Stop: 05/15/23 03:40 Risperidone (Risperidone 0.5 Mg Tablet) 0.5 mg PO [facility] Stop: 05/15/23 20:59 Roflumilast (Roflumilast 500 Mcg Tab) 500 mcg PO QAM [facility] Stop: 05/15/23 08:59 Last Admin: 04/15/23 08:59 Dose: 500 mcg Umeclidinium [place] (Umeclidinium [place] 62.5mcg/Blister 7 Puffs/Inhaler) 1 puffs INH QAM [facility] Stop: 05/15/23 08:59 Last Admin: 04/15/23 09:01 Dose: 1 puffs Pending Studies at Discharge: No Stand-Alone Forms: My [facility] Skilled Items Patient informed of condition?: Yes DNR: No Discharge Level of Care: Other Communicable Disease: No Discharge Prognosis: Stable Lines: Peripheral IV Urinary Catheter: No Medications and DC Order Prescriptions: Continued multivitamin Tablet 1 tab PO QAM furosemide [Lasix] 40 mg Tablet 40 mg PO QAM atorvastatin 80 mg Tablet 80 mg PO HS albuterol sulfate [Proventil] 2.5 mg /3 mL (0.083 %) Solution For Nebulization 2.5 mg INHALATION DIRECTED PRN (Reason: Shortness Of Breath Or Wheezing) lisinopril 20 mg Tablet 20 mg PO QAM clonazepam 0.5 mg Tablet 0.5 mg PO DIRECTED PRN (Reason: NEEDED PER GMG.) cyanocobalamin (vitamin B-12) [Vitamin B-12] 1,000 mcg Tablet 1,000 mcg PO QAM isosorbide mononitrate 60 mg Tablet Extended Release 24 Hr 60 mg PO QAM metformin 1,000 mg Tablet 1,000 mg PO QAM buspirone 10 mg tablet 10 - 20 mg PO BID PRN (Reason: Anxiety) gabapentin 300 mg Capsule 300 mg PO HS omeprazole 20 mg Capsule,Delayed Release(Dr/Ec) 20 mg PO QAM aspirin 81 mg Tablet,Chewable 81 mg PO QAM mirtazapine 15 mg Tablet 7.5 mg PO HS metoprolol succinate 25 mg Tablet Extended Release 24 Hr 25 mg PO QAM albuterol sulfate [Ventolin HFA] 90 mcg/actuation Hfa Aerosol Inhaler 2 puff INHALATION QID PRN (Reason: Shortness Of Breath Or Wheezing) colchicine 0.6 mg Tablet 0.6 mg PO DIRECTED PRN (Reason: GOUT FLARE UP) Rx Instructions: TAKE 2 TABLET, 1 HR LATER, TAKE 1 TABLET, THEN 1 TAB DAILY AFTER UNTIL SYMPTOMS RESOLVE. fluoxetine 20 mg Capsule 60 mg PO QAM fluticasone propionate [Flonase] 50 mcg/actuation [place],Suspension 2 spray INTRANASAL QAM Rx Instructions: administer into each nostril risperidone 0.5 mg Tablet 0.5 mg PO HS tiotropium bromide [Spiriva with HandiHaler] 18 mcg Capsule, W/Inhalation Device 1 cap INHALATION QAM Rx Instructions: puncture 1 cap using device; one dose = 2 inhalations fluticasone propion-salmeterol [Advair HFA] 230-21 mcg/actuation Hfa Aerosol Inhaler 2 puff INHALATION BID Rx Instructions: RINSE MOUTH AFTER USE roflumilast 500 mcg Tablet 500 mcg PO QAM Eliquis 5 mg tablet 5 mg PO BID Vitron-C 65 mg iron- 125 mg Tablet,Delayed Release (Dr/Ec) 1 tab PO QAM Discharge Orders: Discharge Order (Routine); Ordered 04/15/23 Ordered By: Vidal Vargas Admission Data Admit Date/Time: 04/15/23 01:24 Attending Provider: Vidal Vargas Admit Provider: Giovany Coombs Primary Care Provider: Johnnie Newby Other Providers: Giovany Coombs; Cyril Matthews
[2023-04-15 20:06] LABS: ANTI-Xa, UFH(UnfractionatedHep 0.87 IU/ml (0.3-0.7)
[2023-04-15] MEDS ORDERED: ATORVASTATIN 40 MG TAB PO SCH (21:00)
[2023-04-15] MEDS ORDERED: MIRTAZAPINE TAB 15 MG TAB PO SCH (21:00)
[2023-04-15] MEDS ORDERED: GABAPENTIN 300 MG CAP PO SCH (21:00)
[2023-04-15] MEDS ORDERED: risperiDONE 0.5 MG TABLET PO SCH (21:00)
== END 2023-04-15 19:40 | disposition short-term general hospital (02) | DRG 281 ==
LOC: ED 22:25 → 2S 04-15 01:24

== ENCOUNTER 2023-07-12 11:16 | Inpatient (IN) ==
--- NOTE | 2023-07-12 11:32 | Emergency Department Note ---
Impression & Plan Chest pain, Pneumonia ED Provider Note NAME: YUVAL PICKERING AGE: 77 SEX: M : 1945 ARRIVES VIA: Ambulance INFORMANT: Patient ED PROVIDER(S): Nuno Jacobo DO CHIEF COMPLAINT: Chest pain HPI: Patient is a 77-year-old male with a past medical history of CAD, NSTEMI, peripheral artery disease, who presents to the ER for chest pain which started this past Wednesday. Has been off and on intermittently. Will include his upper chest, back and is migratory. He does have some shortness of breath with this. No belly pain, nausea, vomiting, or diarrhea. Patient received nitro prior to arrival that did assist with the pain. He also received aspirin 324 per EMS. Additional history obtained by at bedside he notes that this has been going on for several days. ADDITIONAL HISTORY OBTAINED: Per HPI Chronic Medical/Social Conditions Affecting Care: Per HPI PAST MEDICAL HISTORY:See Below PAST SURGICAL HISTORY:See Below FAMILY HISTORY:See Below SOCIAL HISTORY:See Below HOME MEDICATIONS:See Below ALLERGIES:See Below VITALS:See Below PHYSICAL EXAMINATION: GENERAL: Sitting up in bed, alert, well appearing, well nourished, no distress, non-toxic EYE EXAM: normal conjunctiva. OROPHARYNX: mucous membranes are moist LUNGS: Clear to auscultation. Normal chest wall mechanics HEART: no murmurs, S1 normal and S2 normal ABDOMEN: abdomen soft, non-tender, normo-active bowel sounds, no masses, no rebound or guarding. UPPER EXTREMITIES: upper extremities are grossly normal. LOWER EXTREMITIES: No pitting edema. NEURO EXAM: Normal sensorium, cranial nerves II-XII grossly intact, normal speech, no gross weakness of arms, no gross weakness of legs. MEDICAL DECISION MAKING: Patient is a 77-year-old male who presents ER for above-stated complaint. External records reviewed from last admission was March which showed an NSTEMI. IV was established blood work was obtained. Labs show no significant leukocytosis or anemia. BMP with LFTs bilirubin was unremarkable. Troponin was elevated slightly at 21. Lipase is unremarkable. CTA of the chest showed pneumonia with obstruction of the bronchus. Patient was given IV Rocephin and azithromycin as well as IV fluids. Updated bedside discussed with hospitalist admitted for further workup. Consults/Care Managements Discussions: Per [facility] Triage Nursing notes reviewed. Limited review of prior medical records performed Vital Signs: reviewed and remarkable for no significant abnormalities Differential diagnosis: Cardiac ischemia, aortic dissection, pulmonary embolism, pneumothorax, pneumonia, pericarditis, myocarditis, esophageal rupture, GERD, cholecystitis, pancreatitis, musculoskeletal, as well as other pathologies. ER treatment provided: See below Diagnostics interpreted by me include EKG and cardiac monitoring as listed below: -Cardiac Monitoring: An order was placed for continuous cardiac monitoring. The monitor shows a rate of 80 with sinus rhythm. -ECG: Sinus rhythm with a first-degree AV block Normal axis PVC QTc [address] depressions in the lateral leads and inferior leads -Laboratory studies:Interpreted by me as stated above in MDM and shown below. Imaging studies: Xrays: As interpreted by me: Portable AP upright 1 view of the chest shows no focal infiltrate CTs show: none Procedures:none Critical Care: None Past Med/Surg History Medical History (Updated 07/12/23 @ 18:06 by Nuno Jacobo DO) Pneumonia Chronic anticoagulation History of CVA (cerebrovascular accident) HLD (hyperlipidemia) Tobacco use COPD (chronic obstructive pulmonary disease) Anemia of chronic disease Adenocarcinoma of left lung Social History Smoking Status: Current every day smoker Tobacco Type: Cigarettes Cigarettes Per Day: 1.5 ppd; Do You Dip or Chew Tobacco: No; Hx Alcohol Use: No Hx Substance Use: No Preferred Language: [place]ian Communication Ability: Effective Associate Research Scientist Required: No Beliefs That Will Affect Care: None Current Living Situation: Spouse Feels Safe at Home: Yes Safety Concerns: Feels Safe At This Time Assistive Devices: BiPap, Denture - Upper, Denture - Lower and Hospital Bed Allergies Allergies Allergy/AdvReac Type Severity Reaction Status Date / Time acetaminophen AdvReac Severe SEVERE Verified 07/12/23 14:33 HEADACHE-PER PT "BRAIN SWELLS". Home Meds Home Medications Medication Instructions Recorded Confirmed albuterol sulfate 2.5 mg/3 mL 2.5 mg inhalation DIRECTED PRN 04/14/23 07/12/23 (0.083 %) solution for nebulization Shortness Of Breath Or Wheezing albuterol sulfate 90 mcg/actuation 2 puff inhalation QID PRN 04/14/23 07/12/23 aerosol inhaler (Ventolin HFA) Shortness Of Breath Or Wheezing apixaban 5 mg tablet (Eliquis) 5 mg PO BID 04/14/23 07/12/23 atorvastatin 80 mg tablet 80 mg PO HS 04/14/23 07/12/23 buspirone 10 mg tablet 10 - 20 mg PO BID PRN Anxiety 04/14/23 07/12/23 clonazepam 0.5 mg tablet 0.5 mg PO HS 04/14/23 07/12/23 colchicine 0.6 mg tablet 0.6 mg PO DIRECTED PRN GOUT 04/14/23 07/12/23 FLARE UP cyanocobalamin (vitamin B-12) 1,000 mcg PO QAM 04/14/23 07/12/23 1,000 mcg tablet (Vitamin B-12) fluoxetine 20 mg capsule 60 mg PO QA 04/14/23 07/12/23 fluticasone propionate 230 2 puff inhalation BID 04/14/23 07/12/23 mcg-salmeterol 21 mcg/actuation HFA inhaler (Advair HFA) fluticasone propionate 50 2 spray intranasal QA 04/14/23 07/12/23 mcg/actuation nasal spray,suspension furosemide 40 mg tablet (Lasix) 40 mg PO QA 04/14/23 07/12/23 gabapentin 300 mg capsule 300 mg PO 04/14/23 07/12/23 iron,carbonyl 65 mg-vitamin C 125 1 tab PO QA 04/14/23 07/12/23 mg tablet,delayed release (Vitron-C) isosorbide mononitrate 60 mg 60 mg PO QA 04/14/23 07/12/23 tablet,extended release 24 hr metoprolol succinate 25 mg 25 mg PO QA 04/14/23 07/12/23 tablet,extended release 24 hr mirtazapine 15 mg tablet 7.5 mg PO 04/14/23 07/12/23 multivitamin 1 tab PO QA 04/14/23 07/12/23 omeprazole 20 mg capsule,delayed 20 mg PO QA 04/14/23 07/12/23 release risperidone 0.5 mg tablet 0.5 mg PO 04/14/23 07/12/23 roflumilast 500 mcg tablet 500 mcg PO QA 04/14/23 07/12/23 tiotropium bromide 18 mcg capsule 1 cap inhalation [facility] 04/14/23 07/12/23 with inhalation device (Spiriva with HandiHaler) budesonide 0.25 mg/2 mL suspension 0.25 mg inhalation BID 07/12/23 07/12/23 for nebulization clopidogrel 75 mg tablet 75 mg PO QAM 07/12/23 07/12/23 metformin 500 mg tablet,extended 500 mg PO BID 07/12/23 07/12/23 release 24 hr Results & Data (ED) Vital Signs Vital Signs - 24 hr 07/12/23 11:26 07/12/23 11:26 07/12/23 11:33 Temperature 36.8 C Temperature Source Oral Pulse Rate 83 Pulse Rate [Apical] Respiratory Rate 20 Respiratory Effort / Characteristics Non-Labored Respiratory Depth Normal Blood Pressure 113/76 Blood Pressure [Right Arm] Blood Pressure Mean 88 Blood Pressure Mean [Right Arm] Pulse Oximetry 92 92 Oxygen Delivery Method Room Air Room Air Room Air Sepsis Recent Fever Within 48 Hours No Sepsis New/Unexplained Change in Mental Status No Sepsis Action Taken by Nursing No Action Required 07/12/23 11:34 07/12/23 12:24 07/12/23 13:04 Temperature Temperature Source Pulse Rate 69 Pulse Rate [Apical] 68 Respiratory Rate 20 Respiratory Effort / Characteristics Non-Labored Respiratory Depth Normal Blood Pressure Blood Pressure [Right Arm] 135/65 Blood Pressure Mean Blood Pressure Mean [Right Arm] 88 Pulse Oximetry 92 94 Oxygen Delivery Method Room Air Room Air Sepsis Recent Fever Within 48 Hours Sepsis New/Unexplained Change in Mental Status Sepsis Action Taken by Nursing Laboratory Data 07/12/23 11:34 07/12/23 11:34 Lab Results 07/12/23 Range/Units 11:34 WBC 8.47 (4.8-10.8) K/ul RBC 4.25 L (4.70-6.10) M/uL Hgb 11.5 L (14.0-18.0) g/dl Hct 37.4 L (42.0-52.0) % MCV 88.0 (80.0-100.0) fL MCH 27.1 (25.0-34.0) pg MCHC 30.7 L (32.0-36.0) g/dL RDW Std Deviation 60.1 H (36.4-46.3) fL RDW Coeff of Adam 18.5 H (11.5-14.5) % Plt Count 235 (130-400) K/uL MPV 9.6 (9.4-12.4) fL Immature Gran % (Auto) 0.4 % Neut % (Auto) 81.8 % Lymph % (Auto) 9.9 % [place] % (Auto) 7.7 % Eos % (Auto) 0.0 % Baso % (Auto) 0.2 % Neut # (Auto) 6.93 H (1.40-6.50) K/uL Lymph # (Auto) 0.84 L (1.20-3.40) K/uL [place] # (Auto) 0.65 H (0.11-0.59) K/uL Eos # (Auto) 0.00 (0.00-0.50) K/uL Baso # (Auto) 0.02 (0.00-0.20) K/uL Immature Gran # (Auto) 0.03 (0.01-0.20) K/uL Sodium 139 (136-145) mmol/L Potassium 4.5 (3.5-5.1) mmol/L Chloride 105 (98-107) mmol/L Carbon Dioxide 26 (21-32) mmol/L Anion Gap 8 (3-11) BUN 20 (6-23) mg/dl Creatinine 1.39 (0.6-1.4) mg/dl Est Cr Clr Drug Dosing 49.7 ml/min Est GFR ( Amer) 55.5 ml/min Est GFR (Non-Af Amer) 47.9 ml/min BUN/Creatinine Ratio 14.4 (10-20) Glucose 125 H (70-99(Fasting)) mg/dl Calcium 9.6 (8.6-10.3) mg/dl Total Bilirubin 0.5 (0.2-1.0) mg/dl AST 16 (13-39) U/L ALT 10 (7-52) U/L Alkaline Phosphatase 130 H (34-104) U/L Troponin I High Sens 17.5 (0-20) pg/ml Total Protein 7.3 (6.0-8.3) gm/dl Albumin 3.9 (3.4-5.0) gm/dl Globulin 3.4 (2.5-4.0) gm/dl Albumin/Globulin Ratio 1.1 (0.9-2) Lipase 16 (11-82) U/L Procalcitonin 0.07 (0-0.5) ng/ml Administered Medications Discontinued Medications Furosemide (Furosemide 40 Mg/4 Ml Vial) 40 mg IV ONE ONE Stop: 07/12/23 17:31 Last Admin: 07/12/23 17:45 Dose: 40 mg Documented By: Ceftriaxone Sodium (Rocephin) 2,000 mg in 50 mls @ 100 mls/hr IV NOW STA Stop: 07/12/23 14:26 Last Infusion: 07/12/23 14:42 Dose: Infused Documented By: Admin: 07/12/23 14:13 Dose: 100 mls/hr Documented By: NICHOLE Azithromycin 500 mg/ Dextrose 255 mls @ 127.5 mls/hr IV NOW STA Stop: 07/12/23 15:56 Last Infusion: 07/12/23 17:02 Dose: Infused Documented By: Admin: 07/12/23 15:02 Dose: 127.5 mls/hr Documented By: NICHOLE Ioversol (Optiray 350 500ml) 112 ml IV ONCE ONE Stop: 07/12/23 12:39 Last Admin: 07/12/23 12:38 Dose: 112 ml Documented By: ERICA Morphine Sulfate (Morphine Sulfate 4 Mg/Ml 1 Ml Carp\\Vial) 4 mg IV NOW STA Stop: 07/12/23 11:50 Last Admin: 07/12/23 14:20 Dose: Not Given Documented By: DULCE Imaging Data Radiologist's Impression: Chest X-Ray 07/12/23 11:32 XR chest 1V portable CLINICAL HISTORY: Chest pain, nonspecific COMPARISON STUDY: Chest CT April 25, 2018. Chest radiograph April 14, 2023. FINDINGS: There is no pneumothorax or pleural effusion. There is underlying emphysema. Bibasilar opacities, greater on the right, and interstitial thickening are present. A 1.1 cm left midlung nodule likely corresponds to a nodule within the superior segment of the left lower lobe on prior chest CT. The previously described groundglass nodule within the right lower lobe on that exam is not well-visualized by radiography. IMPRESSION: 1. Bibasilar opacities and interstitial thickening which could reflect pneumonia or pulmonary edema. 2. 1.1 cm left midlung nodule which likely corresponds to the left lower lobe nodule shown on prior CT. Right lower lobe nodule shown on prior CT obscured on this study. These nodules can be assessed on chest CT which has been ordered. ACT 112: Negative or not required by law. Electronically signed by: Alden Isidro M.D. 07/12/2023 11:59 AM Chest CTA 07/12/23 11:52 CT ANGIOGRAPHY OF THE CHEST DISSECTION PROTOCOL CLINICAL HISTORY: Chest and back pain. Evaluate for aortic dissection. COMPARISON STUDY: Chest CT April 25, 2018. Chest radiograph performed earlier today. PET/CT May 11, 2016. TECHNIQUE: Before and following the IV administration of 112 mL of Optiray, helical axial images of the chest were obtained. Maximal intensity projections and sagittal and coronal reformats were viewed on an independent 3D workstation. IV contrast was administered without complication. Automated exposure control was utilized for the study. A dose lowering technique was utilized adhering to the principles of ALARA. CT DOSE: 1678.55 mGy.cm FINDINGS: There is mild dilatation of the ascending aorta, measuring 4 cm. There is moderate atherosclerotic plaque of the thoracic aorta. No thoracic aortic dissection is present. There is moderate cardiomegaly and coronary artery calcification. There is trace pericardial effusion. There is no pneumothorax. Small right and trace left pleural effusions are present. There are no pulmonary emboli. Moderate emphysema. Airspace opacity within the superior segment of the right lower lobe favors pneumonia. A few irregular nodular opacities within the left upper lobe measure up to 1.5 cm. These are new since CT of April 25, 2018. An 8 mm left lower lobe nodule on image 105 of 253 is unchanged since prior CT. This is likely benign. A 1.1 cm subpleural irregular left lower lobe nodule on image 137 was not confidently identified on prior exam. There are moderate secretions within the airways. There is abrupt cut off of the bronchi to the posterior and lateral basal segments of the right lower lobe on image 136 of 253. Mass-like right lower lobe opacity measures 5.1 cm. This is at site of the previously described groundglass opacity on CT of April 25, 2018. There is interlobular septal thickening. Several mildly enlarged mediastinal lymph nodes are noted. Index right paratracheal node on image 61 measures 1.4 x 1.2 cm. No suspicious lesions within the bony thorax are present. Right renal cysts are incidentally noted. IMPRESSION: 1. No thoracic aortic dissection. No pulmonary emboli. 2. Mild interstitial pulmonary edema with small right and trace left pleural effusions. 3. Airspace opacity within the superior segment of the right lower lobe suggestive of pneumonia. 4. Abrupt cut off of segmental bronchi within the right lower lobe with an adjacent 5.1 cm irregular mass-like density at site of previously described groundglass nodule. This may reflect a neoplasm or pneumonia. This could be assessed with bronchoscopy or short-term follow-up chest CT in one month. 5. A few irregular nodular densities within the left lung, as described above. These could also be neoplastic or infectious in etiology and should be assessed on short-term follow-up CT to ensure resolution. 6. Emphysema. 7. Mildly enlarged mediastinal lymph nodes, increased in size since prior exam. These may be reactive however should be assessed on follow-up CT to ensure resolution. ACT 112: Positive. There are findings on this exam that require communication between the performing entity and the patient following Patient Test Result Information Act ([place] Act 112) guidelines. Electronically signed by: Aledn Isidro M.D. 07/12/2023 1:28 PM Discharge Plan Visit Data Chief Complaint: Chest Pain Stated Complaint: BACK PAIN, CHEST PAIN ED Provider: Nuno Jacobo Discharge Problem: Chest pain, Pneumonia Patient Disposition: Admitted As Inpatient Discharge Instructions Interventions: ED Discharge Assessment Last Done: 07/12/23 15:54 Discharge Problem: Chest pain Qualifiers: Chest pain type: unspecified Qualified Code(s): R07.9 - Chest pain, unspecified Pneumonia Qualifiers: Pneumonia type: due to unspecified organism Laterality: unspecified laterality Lung location: unspecified part of lung Qualified Code(s): J18.9 - Pneumonia, unspecified organism
[2023-07-12 11:49] LABS: Basophils # (auto) 0.02 K/uL (0.00-0.20); Basophils % (auto) 0.2 %; Hematocrit (blood only) 37.4 % (42.0-52.0); Hemoglobin 11.5 g/dl (14.0-18.0); Immature Granulocytes # (auto) 0.03 K/uL (0.01-0.20); Immature Granulocytes % (auto) 0.4 %; Lymphocytes # (auto) 0.84 K/uL (1.20-3.40); Lymphocytes % (auto) 9.9 %; Mean Corpuscular Hemoglobin 27.1 pg (25.0-34.0); Mean Corpuscular Hgb Conc 30.7 g/dL (32.0-36.0); Mean Platelet Volume 9.6 fL (9.4-12.4); Monocytes # (auto) 0.65 K/uL (0.11-0.59); Monocytes % (auto) 7.7 %; Neutrophils # (auto) 6.93 K/uL (1.40-6.50); Neutrophils % (auto) 81.8 %; Platelet Count 235 K/uL (130-400); RDW Coefficient of Variation 18.5 % (11.5-14.5); RDW Standard Deviation 60.1 fL (36.4-46.3); Red Blood Count 4.25 M/uL (4.70-6.10); White Blood Count 8.47 K/ul (4.8-10.8)
--- NOTE | 2023-07-12 12:01 | XRay Report ---
XR chest 1V portable CLINICAL HISTORY: Chest pain, nonspecific COMPARISON STUDY: Chest CT April 25, 2018. Chest radiograph April 14, 2023. FINDINGS: There is no pneumothorax or pleural effusion. There is underlying emphysema. Bibasilar opac ities, greater on the right, and interstitial thickening are present. A 1.1 cm left midlung nodule li tania corresponds to a nodule within the superior segment of the left lower lobe on prior chest CT. Th e previously described groundglass nodule within the right lower lobe on that exam is not well-visual ized by radiography. IMPRESSION: 1. Bibasilar opacities and interstitial thickening which could reflect pneumonia or pulmonary edema. 2. 1.1 cm left midlung nodule which likely corresponds to the left lower lobe nodule shown on prior C T. Right lower lobe nodule shown on prior CT obscured on this study. These nodules can be assessed o n chest CT which has been ordered. ACT 112: Negative or not required by law. Electronically signed by: Alden Isidro M.D. 07/12/2023 11:59 AM
[2023-07-12 12:08] LABS: Albumin Globulin Ratio 1.1 (0.9-2); Albumin Level 3.9 gm/dl (3.4-5.0); BUN Creatinine Ratio 14.4 (10-20); Bilirubin,Total 0.5 mg/dl (0.2-1.0); Calcium 9.6 mg/dl (8.6-10.3); Creatinine Clr Calc Pharmacy 49.7 ml/min; Est GFR (African American) 55.5 ml/min; Est GFR (Non-African American) 47.9 ml/min; Globulin 3.4 gm/dl (2.5-4.0); Potassium 4.5 mmol/L (3.5-5.1); Total Protein 7.3 gm/dl (6.0-8.3)
[2023-07-12 12:14] LABS: Troponin I High Sensitivity 17.5 pg/ml (0-20)
[2023-07-12] MEDS: OPTIRAY 350 500ml IV ONE (12:38)
--- NOTE | 2023-07-12 13:29 | CT Scan Report ---
CT ANGIOGRAPHY OF THE CHEST DISSECTION PROTOCOL CLINICAL HISTORY: Chest and back pain. Evaluate for aortic dissection. COMPARISON STUDY: Chest CT April 25, 2018. Chest radiograph performed earlier today. PET/CT May 11, 2016. TECHNIQUE: Before and following the IV administration of 112 mL of Optiray, helical axial images of t he chest were obtained. Maximal intensity projections and sagittal and coronal reformats were viewed on an independent 3D workstation. IV contrast was administered without complication. Automated exp osure control was utilized for the study. A dose lowering technique was utilized adhering to the [facility]. CT DOSE: 1678.55 mGy.cm FINDINGS: There is mild dilatation of the ascending aorta, measuring 4 cm. There is moderate atheros clerotic plaque of the thoracic aorta. No thoracic aortic dissection is present. There is moderate ca rdiomegaly and coronary artery calcification. There is trace pericardial effusion. There is no pneumo thorax. Small right and trace left pleural effusions are present. There are no pulmonary emboli. Mode rate emphysema. Airspace opacity within the superior segment of the right lower lobe favors pneumonia . A few irregular nodular opacities within the left upper lobe measure up to 1.5 cm. These are new si rie CT of April 25, 2018. An 8 mm left lower lobe nodule on image 105 [facility] 253 [facility] This is likely benign. A 1.1 cm subpleural irregular left lower lobe nodule on image 137 was no t confidently identified on prior exam. There are moderate secretions within the airways. There is ab rupt cut off of the bronchi to the posterior and lateral basal segments of the right lower lobe on im age 136 of 253. Mass-like right lower lobe opacity measures 5.1 cm. This is at site of the previously described groundglass opacity on CT of April 25, 2018. There is interlobular septal thickening. Sev eral mildly enlarged mediastinal lymph nodes are noted. Index right paratracheal node on image 61 pedro sures 1.4 x 1.2 cm. No suspicious lesions within the bony thorax are present. Right renal cysts are i ncidentally noted. IMPRESSION: 1. No thoracic aortic dissection. No pulmonary emboli. 2. Mild interstitial pulmonary edema with small right and trace left pleural effusions. 3. Airspace opacity within the superior segment of the right lower lobe suggestive of pneumonia. 4. Abrupt cut off of segmental bronchi within the right lower lobe with an adjacent 5.1 cm irregular mass-like density at site of previously described groundglass nodule. This may reflect a neoplasm or pneumonia. This could be assessed with bronchoscopy or short-term follow-up chest CT in one month. 5. A few irregular nodular densities within the left lung, as described above. These could also be ne oplastic or infectious in etiology and should be assessed on short-term follow-up CT to ensure resolu tion. 6. Emphysema. 7. Mildly enlarged mediastinal lymph nodes, increased in size since prior exam. These may be reactive however should be assessed on follow-up CT to ensure resolution. ACT 112: Positive. There are findings on this exam that require communication between the performing entity and the patient following Patient Test Result Information Act ([place] Act 112) guidelines. Electronically signed by: Alden Isidro M.D. 07/12/2023 1:28 PM
--- NOTE | 2023-07-12 13:57 | Electrocardiogram Report ---
Test Reason : Blood Pressure : / mmHG Vent. Rate : 083 BPM Atrial Rate : 083 BPM P-R Int : 240 ms QRS Dur : 090 ms QT Int : 376 ms P-R-T Axes : 000 -29 042 degrees QTc Int : 441 ms Sinus rhythm with 1st degree A-V block with occasional Premature ventricular complexes and Premature atrial complexes Nonspecific ST and T wave abnormality Abnormal ECG When compared with ECG of 15-APR-2023 06:10, Premature ventricular complexes are now Present Premature atrial complexes are now Present IN interval has increased Nonspecific T wave abnormality no longer evident in Inferior leads Confirmed by Lee Amado ([id number]) on 07/12/2023 1:57:16 PM Referred By: Confirmed By:Lee Amado
[2023-07-12] MEDS: cefTRIAXone SODIUM 2,000 MG/50 ML BAG IV STA (14:13)
[2023-07-12] MEDS: MoRPHine SULFATE 4 MG/ML 1 ML CARP\\VIAL IV STA (14:20)
[2023-07-12] MEDS ORDERED: MAGNESIUM HYDROXIDE SUSP 30 ML UDC PO PRN (14:41)
[2023-07-12] MEDS ORDERED: ONDANSETRON INJ 2 MG/ML 2 ML VIAL IV PRN (14:41)
[2023-07-12] MEDS ORDERED: ACETAMINOPHEN 325 MG TAB PO PRN (14:41)
[2023-07-12] MEDS ORDERED: ALUMINUM/MAGNESIUM SUSP 30 ML UDC PO PRN (14:41)
[2023-07-12] MEDS ORDERED: POLYETHYLENE (MIRALAX) 17 GM PACK PO PRN (14:41)
[2023-07-12] MEDS: AZITHROMYCIN 500 MG in DEXTROSE 5% 250 ML IV STA (15:02)
--- NOTE | 2023-07-12 15:07 | History & Physical Report ---
Date of Service July 12, 2023 Assessment & Plan (1) Chest pain: (2) Adenocarcinoma of left lung: (3) Depression: (4) Anemia of chronic disease: (5) COPD (chronic obstructive pulmonary disease): (6) Tobacco use: (7) HLD (hyperlipidemia): (8) History of CVA (cerebrovascular accident): (9) Chronic anticoagulation: (10) Pneumonia: Plan 77-year-old unwell complex cardiac gentleman who presented to the ED today from [facility] with complaints of back pain radiating into his scapular region and into the anterior portion of his chest and up into his neck that started on . He was given aspirin 324 mg and nitro SL x 3 and route with moderate relief by EMS today. On 03/16/23 he had an NSTEMI and was transferred to [facility] without cardiac intervention. Discussed patient hospital stay in [place]. He stated that the decision was made to focus on medical management due to 100% occlusion in two vessels. Patient with known significant multivessel coronary artery disease including a 100% occluded RCA and a 100% occluded left circumflex with mild mid LAD stenosis via remote (April 2005). 1.5 PPD smoker Has a past medical history of NSTEMI 04/10 (medically managed), adenocarcinoma of the R lung (radiation),H/O CVA 12/09 (On Eliquis), COPD, current smoker, anemia of unknown origin, carotid stenosis, AAA, depression, P TSD, YISSEL, HTN, HLD. Today, no leukocytosis, troponin 17.5--> 21. BMP historically 337. Patient will be admitted for further evaluation and management of his chest pain with a repeat ECHO, continue IV abx for treatment of PNA, involve Pulmonary and Cardiology, trend troponin, and involve palliative medicine. Chest pain: Acute Initial Troponin 17.5--> 21. Will repeat Q6h at 2100. Keep NPO for now Repeat ECHO Last ECHO documented:04/15/23: ECHO pre EF 35-40% moderate aortic stenosis and mild to mod MR. LV wall function was reduced. This is when he was tx to [facility] and no CABG was performed. Cardiology consultation Suspect this presentation is more related to his PNA/lung cancer as his pain is reproducible CAD: History of NSTEMI: ECHO pre EF 35-40% moderate aortic stenosis and mild to mod MR. LV wall function was reduced Patient with known significant multivessel coronary artery disease including a 100% occluded RCA and a 100% occluded left circumflex with mild mid LAD stenosis via remote (April 2005). Was transferred to [facility]; Takes Lasix 40 mg Q AM; continue Add Lasix 40 mg IV once and monitor PNA: Acute No leukocytosis WBC 8.47 Procalcitonin pending CXR: Bibasilar opacities and interstitial thickening which could reflect pneumonia or pulmonary edema. 1.1 cm left midlung nodule which likely corresponds to the left lower lobe nodule shown on prior CT. Right lower lobe nodule shown on prior CT obscured on this study. These nodules can be assessed on chest CT which has been ordered. Chest CT: outlined below under lung cancer Was started on Ceftriaxone + Azithromycin in ED; continue and adjust based on culture results Check MRSA swab Adenocarcinoma of R lung: Chronic Diagnosed [address] Winter' in [place]. he just had a chest CT a few days ago with a follow up planned next week to compare his scans Completed radiation a few years ago HISTOPATHOLOGY: NSCLC, Adenocarcinoma, EGFR/ALK/ROS1/BRAF negative, PDL1 5% CXR: Bibasilar opacities and interstitial thickening which could reflect pneumonia or pulmonary edema. 1.1 cm left midlung nodule which likely corresponds to the left lower lobe nodule shown on prior CT. Right lower lobe nodule shown on prior CT obscured on this study. These nodules can be assessed on chest CT which has been ordered. Chest CT: 1. No thoracic aortic dissection. No pulmonary emboli. 2. Mild interstitial pulmonary edema with small right and trace left pleural effusions. 3. Airspace opacity within the superior segment of the right lower lobe s uggestive of pneumonia. 4. Abrupt cut off of segmental bronchi within the right lower lobe with an adjacent 5.1 cm irregular mass-like density at site of previously described groundglass nodule. This may reflect a neoplasm or pneumonia. This could be assessed with bronchoscopy or short-term follow-up chest CT in one month. 5. A few irregular nodular densities within the left lung, as described above. These could also be neoplastic or infectious in etiology and should be assessed on short-term follow-up CT to ensure resolution. 6. Emphysema. 7. Mildly enlarged mediastinal lymph nodes, increased in size since prior exam. These may be reactive however should be assessed on follow-up CT to ensure resolution. Consult Pulmonary for further recommendations as he has stated he doesn't feel relief with his inhalers; was recently recommended to start Advair/Spiriva and Pulmicort with continuation of his rescue inhalers Goals of care; counseling: Lengthy overall conversation with patient and his at bedside about his overarching goals of care. He states that he has significant PTSD stemming from a medical situation where years ago his was 'lost' in the hospital and they [place] [facility] [place] She is alive and well but being at the hospital is quite triggering. He states that he understands that his heart and lung conditions are quite complex. He also voices understanding that he knows that there will come a time where medication changes will have been exhausted. He said that he is not fearful of dying from either of his diseases and he predicts that he will pass away within the next year. We discussed the difference between Palliative Medicine and Hospice and how each could benefit him at different stages of illness. He certainly would qualify for Hospice given his lung cancer and he is receptive to a repeat ECHO to determine a further worsening of his EF. His last EF would not qualify him for hospice. He was receptive to having a discussion about enrolling in Hospice. For now, he would wish to remain a full code; however, I suspect with further conversation he would change to a DNR/DNI. H/O CVA: Chronic Takes Eliquis;continue for now Anemia of chronic disease: Had EGD and colonoscopy in December 2022. EGD showed gastric polyp. Colonoscopy and polypectomy and GI recommended plan for repeat colonoscopy in 2 years Anemia workup 06/03/2023: Iron 50, TIBC 295, ferritin 42 Started on Vitron C by GI No clear etiology of anemia Per outpatient records consider hematology Currently no overt signs of bleeding COPD: Tobacco use: Chronic Ongoing tobacco abuse smokes 1.5 pack of cigarettes daily Needs counseling, but has stated he has no interest in quitting. He has been smoking since he was 7 years old Follows with pulmonology as outpatient; most recently advised to continue Advair/Spiriva and add Pulmicort twice daily with rescue albuterol Diabetes mellitus type 2: Chronic Check A1C SSI ACHS while inpatient Glycemic pharmacy YISSEL: Chronic Wears BiPAP at home nightly; continue while here per protocol HTN: Chronic Takes Imdur, metoprolol; continue HLD: Chronic On high dose statin; Takes Atorvastatin;continue Depression: Chronic Takes fluoxetine;continue Disposition: PCP: Dr. Newby Code Status: Full Code VTE Prophylaxis: On Eliquis I spent a total of 87 minutes coordinating, documenting, and providing care for this patient excluding time spent in the performance of separately billed services. All of the aforementioned completed while collaborating with the assigned attending physician for a full treatment plan. Please see their addendum for further details. History of Present Illness Chief Complaint: chest pain Primary Care Provider: Johnnie Newby MD Mr. Don is a 77-year-old unwell complex cardiac gentleman who presented to the ED today from [facility] with complaints of back pain radiating into his scapular region and into the anterior portion of his chest and up into his neck that started on . He was given aspirin 324 mg and nitro SL x 3 and route with moderate relief by EMS today. On March 16 he had an NSTEMI and was transferred to [facility] without cardiac intervention. Discussed patient hospital stay in [place]. He stated that the decision was made to focus on medical management due to 100% occlusion in two vessels. Patient with known significant multivessel coronary artery disease including a 100% occluded RCA and a 100% occluded left circumflex with mild mid LAD stenosis via remote (April 2005). He is a persistent 1.5 PPD smoker x [id number] history with chronic nonproductive cough with no intensions on quitting. Has a past medical history of NSTEMI 04/10 (medically managed), adenocarcinoma of the lung (radiation),H/O CVA 12/09 (On Eliquis), COPD, current smoker, anemia of unknown origin, carotid stenosis, AAA, depression, PTSD, YISSEL, HTN, HLD. Today, no leukocytosis, troponin 17.5--> 21. BMP historically 337. Chest x-ray: 1. Bibasilar opacities and interstitial thickening which could reflect pneumonia or pulmonary edema. 2. 1.1 cm left midlung nodule which likely corresponds to the left lower lobe nodule shown on prior CT. Right lower lobe nodule shown on prior CT obscured on this study. These nodules can be assessed on chest CT which has been ordered. Chest CT: 1. No thoracic aortic dissection. No pulmonary emboli. 2. Mild interstitial pulmonary edema with small right and trace left pleural effusions. 3. Airspace opacity within the superior segment of the right lower lobe suggestive of pneumonia. 4. Abrupt cut off of segmental bronchi within the right lower lobe with an adjacent 5.1 cm irregular mass-like density at site of previously described groundglass nodule. This may reflect a neoplasm or pneumonia. This could be assessed with bronchoscopy or short-term follow-up chest CT in one month. 5. A few irregular nodular densities within the left lung, as described above. These could also be neoplastic or infectious in etiology and should be assessed on short-term follow-up CT to ensure resolution. 6. Emphysema. 7. Mildly enlarged mediastinal lymph nodes, increased in size since prior exam. These may be reactive however should be assessed on follow-up CT to ensure resolution. He follows with Dr. (Elite) in [place] with Oncology for his lung cancer. He reportedly has completed radiation a few years ago. He just has had a chest CT last week and is to attend a follow up next week to discuss the results and compare nodule size. Lengthy overall conversation with patient and his at bedside about his overarching goals of care. He states that he has significant PTSD stemming from a medical situation where years ago his was 'lost' in the hospital and they looked [place] [facility] [place] She is alive and well but being at the hospital is quite triggering. He states that he understands that his heart and lung conditions are quite complex. He also voices understanding that he knows that there will come a time where medication changes will have been exhausted. He said that he is not fearful of dying from either of his diseases and he predicts that he will pass away within the next year. We discussed the difference between Palliative Medicine and Hospice and how each could benefit him at different stages of illness. He certainly would qualify for Hospice given his lung cancer and he is receptive to a repeat ECHO to determine a further worsening of his EF. His last EF would not qualify him for hospice. He was receptive to having a discussion about enrolling in Hospice. For now, he would wish to remain a full code; however, I suspect with further conversation he would change to a DNR/DNI. He is sitting in his hospital bed AAOx4 and able to hold meaningful conversation. He does have a nonproductive cough and does use his diaphragm for accessory muscle breathing during some of our conversation. He denies current chest pain, but does have reproducible chest pain on examination anteriorly. He did take his Lasix this AM. He has an audible murmur LSB, +1-2 BL LE edema with dusky PVD presentation. Patient will be admitted for further evaluation and management of his chest pain with a repeat ECHO, continue IV abx for treatment of PNA, involve Pulmonary and Cardiology, trend troponin, and involve palliative medicine. Allergies Allergy/AdvReac Type Severity Reaction Status Date / Time acetaminophen AdvReac Severe SEVERE Verified 07/12/23 14:33 HEADACHE-PER PT "BRAIN SWELLS". Home Medications Medication Instructions Recorded Confirmed Type albuterol sulfate 2.5 mg/3 mL 2.5 mg inhalation DIRECTED PRN 04/14/23 07/12/23 History (0.083 %) solution for nebulization Shortness Of Breath Or Wheezing albuterol sulfate 90 mcg/actuation 2 puff inhalation QID PRN 04/14/23 07/12/23 History aerosol inhaler (Ventolin HFA) Shortness Of Breath Or Wheezing apixaban 5 mg tablet (Eliquis) 5 mg PO BID 04/14/23 07/12/23 History atorvastatin 80 mg tablet 80 mg PO HS 04/14/23 07/12/23 History buspirone 10 mg tablet 10 - 20 mg PO BID PRN Anxiety 04/14/23 07/12/23 History clonazepam 0.5 mg tablet 0.5 mg PO HS 04/14/23 07/12/23 History colchicine 0.6 mg tablet 0.6 mg PO DIRECTED PRN GOUT 04/14/23 07/12/23 History FLARE UP cyanocobalamin (vitamin B-12) 1,000 mcg PO QAM 04/14/23 07/12/23 History 1,000 mcg tablet (Vitamin B-12) fluoxetine 20 mg capsule 60 mg PO QAM 04/14/23 07/12/23 History fluticasone propionate 230 2 puff inhalation BID 04/14/23 07/12/23 History mcg-salmeterol 21 mcg/actuation HFA inhaler (Advair HFA) fluticasone propionate 50 2 spray intranasal QAM 04/14/23 07/12/23 History mcg/actuation nasal spray,suspension furosemide 40 mg tablet (Lasix) 40 mg PO QAM 04/14/23 07/12/23 History gabapentin 300 mg capsule 300 mg PO 04/14/23 07/12/23 History iron,carbonyl 65 mg-vitamin C 125 1 tab PO QA 04/14/23 07/12/23 History mg tablet,delayed release (Vitron-C) isosorbide mononitrate 60 mg 60 mg PO QAM 04/14/23 07/12/23 History tablet,extended release 24 hr metoprolol succinate 25 mg 25 mg PO QA 04/14/23 07/12/23 History tablet,extended release 24 hr mirtazapine 15 mg tablet 7.5 mg PO 04/14/23 07/12/23 History multivitamin 1 tab PO QA 04/14/23 07/12/23 History omeprazole 20 mg capsule,delayed 20 mg PO [facility] 04/14/23 07/12/23 History release risperidone 0.5 mg tablet 0.5 mg PO 04/14/23 07/12/23 History roflumilast 500 mcg tablet 500 mcg PO [facility] 04/14/23 07/12/23 History tiotropium bromide 18 mcg capsule 1 cap inhalation [facility] 04/14/23 07/12/23 History with inhalation device (Spiriva with HandiHaler) budesonide 0.25 mg/2 mL suspension 0.25 mg inhalation BID 07/12/23 07/12/23 History for nebulization clopidogrel 75 mg tablet 75 mg PO [facility] 07/12/23 07/12/23 History metformin 500 mg tablet,extended 500 mg PO BID 07/12/23 07/12/23 History release 24 hr Past Med/Surg History Medical History (Updated 07/12/23 @ 18:06 by Nuno Jacobo DO) Pneumonia Chronic anticoagulation History of CVA (cerebrovascular accident) HLD (hyperlipidemia) Tobacco use COPD (chronic obstructive pulmonary disease) Anemia of chronic disease Adenocarcinoma of left lung Social History Smoking Status: Current every day smoker Tobacco Type: Cigarettes Cigarettes Per Day: 1.5 ppd; Do You Dip or Chew Tobacco: No; Hx Alcohol Use: No Hx Substance Use: No Preferred Language: Mongolian Communication Ability: Effective Animator Required: No Beliefs That Will Affect Care: None Current Living Situation: Spouse Feels Safe at Home: Yes Safety Concerns: Feels Safe At This Time Assistive Devices: BiPap, Denture - Upper, Denture - Lower and Hospital Bed Review of Systems Review of Systems: Neuro: (-) Falls, trauma, slurred speech HEENT: (-) CARRILLO, dizziness, dysphagia, visual or auditory changes CV: (-) CP, palpitations, swelling Resp: (-) SOB GI: (-) appetite changes, N/V/D, bowel changes : (-) urinary changes Skin: (-) rashes Psych: (-) anxiety, depression Physical Exam Physical Exam: Neuro: AAOx4, PERRLA, no aphagia, memory changes, CNII-XII grossly intact HEENT: head normocephalic, atraumatic, moist mucus membranes CV: S1/S2, (+) M (+) reproducible chest pain. (+)2 LE edema, cap refill < 3 seconds. Dusky villagomez B/L LE with plaques on skins B/L Resp: Lungs CTA in all rh[place]. On RA GI: Abdomen S/NT/ND, Ax4 bowel sounds, (-) CVA tenderness Musculoskeletal: 5/5 B/L UE strength, 5/5 B/L LE strength. (+) gait disturbance since CVA in November 2022. Skin: (-) rashes , (-) erythema. Psych: euthymic, but tearful mood Results & Data Results & Data Vital Signs (Past 12 Hours) Vital Signs Temp Pulse Pulse Resp BP BP Pulse Ox 07/12/23 13:04 68 20 135/65 94 07/12/23 12:24 69 07/12/23 11:34 92 07/12/23 11:33 92 07/12/23 11:26 07/12/23 11:26 36.8 C 83 20 113/76 92 O2 Del Method 07/12/23 13:04 Room Air 07/12/23 12:24 07/12/23 11:34 Room Air 07/12/23 11:33 Room Air 07/12/23 11:26 Room Air 07/12/23 11:26 Room Air Laboratory Results Short CBC 07/12/23 Range/Units 11:34 WBC 8.47 (4.8-10.8) K/ul Hgb 11.5 L (14.0-18.0) g/dl Hct 37.4 L (42.0-52.0) % Plt Count 235 (130-400) K/uL BMP 07/12/23 11:34 Sodium 139 Potassium 4.5 Chloride 105 Carbon Dioxide 26 BUN 20 Creatinine 1.39 Glucose 125 H Calcium 9.6 Liver Function 07/12/23 Range/Units 11:34 Total Bilirubin 0.5 (0.2-1.0) mg/dl AST 16 (13-39) U/L ALT 10 (7-52) U/L Alkaline Phosphatase 130 H (34-104) U/L Albumin 3.9 (3.4-5.0) gm/dl Diagnostic Findings Chest X-Ray 07/12/23 11:32 XR chest 1V portable CLINICAL HISTORY: Chest pain, nonspecific COMPARISON STUDY: Chest CT April 25, 2018. Chest radiograph April 14, 2023. FINDINGS: There is no pneumothorax or pleural effusion. There is underlying emphysema. Bibasilar opacities, greater on the right, and interstitial thic kening are present. A 1.1 cm left midlung nodule likely corresponds to a nodule within the superior segment of the left lower lobe on prior chest CT. The previously described groundglass nodule within the right lower lobe on that exam is not well-visualized by radiography. IMPRESSION: 1. Bibasilar opacities and interstitial thickening which could reflect pneumonia or pulmonary edema. 2. 1.1 cm left midlung nodule which likely corresponds to the left lower lobe nodule shown on prior CT. Right lower lobe nodule shown on prior CT obscured on this study. These nodules can be assessed on chest CT which has been ordered. ACT 112: Negative or not required by law. Electronically signed by: Alden Isidro M.D. 07/12/2023 11:59 AM Chest CTA 07/12/23 11:52 CT ANGIOGRAPHY OF THE CHEST DISSECTION PROTOCOL CLINICAL HISTORY: Chest and back pain. Evaluate for aortic dissection. COMPARISON STUDY: Chest CT April 25, 2018. Chest radiograph performed earlier today. PET/CT May 11, 2016. TECHNIQUE: Before and following the IV administration of 112 mL of Optiray, helical axial images of the chest were obtained. Maximal intensity projections and sagittal and coronal reformats were viewed on an independent 3D workstation. IV contrast was administered without complication. Automated exposure control was utilized for the study. A dose lowering technique was utilized adhering to the principles of ALARA. CT DOSE: 1678.55 mGy.cm FINDINGS: There is mild dilatation of the ascending aorta, measuring 4 cm. There is moderate atherosclerotic plaque of the thoracic aorta. No thoracic aortic dissection is present. There is moderate cardiomegaly and coronary artery calcification. There is trace pericardial effusion. There is no pneumothorax. Small right and trace left pleural effusions are present. There are no pulmonary emboli. Moderate emphysema. Airspace opacity within the superior segment of the right lower lobe favors pneumonia. A few irregular nodular opacities within the left upper lobe measure up to 1.5 cm. These are new since CT of April 25, 2018. An 8 mm left lower lobe nodule on image 105 of 253 is unchanged since prior CT. This is likely benign. A 1.1 cm subpleural irregular left lower lobe nodule on image 137 was not confidently identified on prior exam. There are moderate secretions within the airways. There is abrupt cut off of the bronchi to the posterior and lateral basal segments of the right lower lobe on image 136 of 253. Mass-like right lower lobe opacity measures 5.1 cm. This is at site of the previously described groundglass opacity on CT of April 25, 2018. There is interlobular septal thickening. Several mildly enlarged mediastinal lymph nodes are noted. Index right paratracheal node on image 61 measures 1.4 x 1.2 cm. No suspicious lesions within the bony thorax are present. Right renal cysts are incidentally noted. IMPRESSION: 1. No thoracic aortic dissection. No pulmonary emboli. 2. Mild interstitial pulmonary edema with small right and trace left pleural effusions. 3. Airspace opacity within the superior segment of the right lower lobe suggestive of pneumonia. 4. Abrupt cut off of segmental bronchi within the right lower lobe with an adjacent 5.1 cm irregular mass-like density at site of previously described groundglass nodule. This may reflect a neoplasm or pneumonia. This could be assessed with bronchoscopy or short-term follow-up chest CT in one month. 5. A few irregular nodular densities within the left lung, as described above. These could also be neoplastic or infectious in etiology and should be assessed on short-term follow-up CT to ensure resolution. 6. Emphysema. 7. Mildly enlarged mediastinal lymph nodes, increased in size since prior exam. These may be reactive however should be assessed on follow-up CT to ensure resolution. ACT 112: Positive. There are findings on this exam that require communication between the performing entity and the patient following Patient Test Result Information Act ([place] Act 112) guidelines. Electronically signed by: Alden Isidro M.D. 07/12/2023 1:28 PM Code Status & VTE Plan Code Status Full Code in the event of cardiac or respiratory arrest VTE Prophylaxis Plan VTE Prophylaxis will be ordered: Yes Supervising Physician Co-Signing Physician Notes Patient was seen and examined independently at bedside. Chart reviewed. Case discussed with Tigist SAEED and agree with the documentation above. In summary, this is a 77 year old male with tobacco abuse, right lung cancer s/p radiation, COPD, CAD/WA, COPD, YISSEL etc who presented to the ED from [facility] for evaluation of chest pain. Received full dose aspirin and nitro x3 en route with relief. Labs and imaging reviewed. Chest pain is atypical in description and is non-exertional however given his complex cardiac history and risk factors, will trend trop, monitor on tele and consult cardiology. CT chest reviewed and compared with recent one 3 days ago. Possible that right lung malignancy has recurred and has post obstructive pneumonia (details below). Will continue empiric ABx, consult pulm, sputum clx, nebs, IS, pain management. Will also give an extra dose of iv lasix today given the wheezing and pulmonary edema seen in CT. Rest as per the note above. CT chest 1. No thoracic aortic dissection. No pulmonary emboli. 2. Mild interstitial pulmonary edema with small right and trace left pleural effusions. 3. Airspace opacity within the superior segment of the right lower lobe sugg estive of pneumonia. 4. Abrupt cut off of segmental bronchi within the right lower lobe with an adjacent 5.1 cm irregular mass-like density at site of previously described groundglass nodule. This may reflect a neoplasm or pneumonia. This could be assessed with bronchoscopy or short-term follow-up chest CT in one month. 5. A few irregular nodular densities within the left lung, as described above. These could also be neoplastic or infectious in etiology and should be assessed on short-term follow-up CT to ensure resolution. 6. Emphysema. 7. Mildly enlarged mediastinal lymph nodes, increased in size since prior exam. These may be reactive however should be assessed on follow-up CT to ensure resolution. On exam- General: Sitting in wheelchair, not in distress, on room air HEENT: EOMI, HOLDEN, MMM Chest: Fair breath sounds with bilateral wheezes CVS: Regular, normal heart sounds, no murmur Abdomen: Soft, non tender, not distended, normal bowel sounds Neuro: Awake, alert, oriented, conversing well, non focal Extremities: No edema Of note, patient does have significant PTSD in setting of being in the hospital and wanted to leave, however after counseling he is agreeable to stay overnight. However, he is requesting to be seen early in the morning and early discharge. I did relay it to the physician who will see him tomorrow.
[2023-07-12 15:45] LABS: Magnesium 1.9 mg/dl (1.7-2.4)
[2023-07-12] MEDS ORDERED: busPIRone 5 MG TAB PO PRN (16:14)
--- NOTE | 2023-07-12 16:56 | Pulmonary Consultation ---
Date of Consultation July 12, 2023 Assessment & Plan (1) COPD (chronic obstructive pulmonary disease): (2) Adenocarcinoma of lower lobe of right lung: (3) YISSEL (obstructive sleep apnea): (4) Tobacco use: (5) Chest pain: Plan IMPRESSION: 77-year-old male with a significant pulmonary history consistent with COPD, adenocarcinoma of the RIGHT lower lobe status post SBRT therapy in 2020, continued smoking, and obstructive sleep apnea on BiPAP who presents with complaints of chest pain. Pulmonary medicine consulted given CT findings during workup today. RECOMMENDATIONS: 1. Abnormal chest CT - Patient with findings of infiltrative changes noted to the RIGHT lower lobe of the lung. Additionally, there is a nodule present to the LEFT upper lobe. Unfortunately, all of the patient's images have previously been performed at an outside institution. Would recommend that if you are requesting complete evaluation of the patient's imaging, particularly in a complex patient with significant history for adenocarcinoma, that images be pushed to our chief service observer so we would be able to independently evaluate those studies as well. That being said, hospitalist was able to provide me with the report of a CT that was obtained a few days ago which demonstrated what were described as "stable" findings with only new finding of 5 mm nodule which certainly would be not of concern at this point. That being said, would wish to evaluate all of these images prior to waiting informally on the nature of the progression versus stability of pulmonary infiltrative changes in a patient with a significant history of adenocarcinoma. Again, while this certainly may represent a stable patient, without the aid of imaging modalities to assess the lung parenchyma. Certainly consideration for short course of antibiotics could be warranted. Patient without elevation of his procalcitonin or white count, however. 2. Adenocarcinoma of the lung - Previously noted treatment of the RIGHT lower lobe with SBRT therapy that was performed in [facility]. Patient continues to follow with this group annually. He actually just had an outpatient CT performed last week. He is scheduled to see them within the next 1 to 2 weeks in follow-up. During inpatient evaluation at this point, there is no significant lymphadenopathy or need for emergent pulmonary intervention at this time. Would defer ongoing management and workup to the outpatient setting as has been done currently. 3. Obstructive sleep apnea - Would obtain patient's home CPAP settings from outpatient records and would recommend continuing CPAP while inpatient. 4. COPD - Patient with longstanding history. He reports that he does not feel as though any of his inhalers typically work. He is currently using HFA type inhalers. He states that he is not able to hold his breath or maintain deep enough breath for long enough to sit feel like he achieves clinical benefit. That being said, and since the patient is inpatient, we will trial the patient on a course of budesonide and Perforomist and continue Spiriva. Patient would likely benefit with a short taper of oral steroids as well. 5. Chest pain - With known coronary disease. Defer workup to inpatient team and cardiology services. Thank you for allowing us to participate in the care of this patient. Supervising Physician Co-Signing Physician Notes I saw and evaluated the patient with Zbigniew Baron PA-C, and agree with findings and plan as documented in the note. 77-year-old male with past medical history of adenocarcinoma of the right side of the lung s/p radiation therapy proximately 4 years ago in 2019 At the time of examination patient was not in any respiratory distress The reason he came to the hospital was chest pain. Which seems to be better as he is in the hospital Denied any headache, no nausea, no vomiting No fever or chills. Not bringing up any phlegm. No hemoptysis Constitutional: No acute distress HEENT: EOMI, PERRLA Respiratory system: Decreased air entry bilaterally, no wheeze, rhonchi, positive crackles bilaterally CVS: S1-S2 positive, no murmurs or gallops Abdomen: Soft, nontender, nondistended, positive bowel sounds x4, obese Extremities: +2 pulses bilaterally radialis/ dorsalis pedis, no cyanosis, +2 pitting edema bilateral lower extremity Neuro: Awake alert oriented x3 Psych: Normal mood and affect G/U: No Rudolph Plan: CT chest 07/12/2023 personally reviewed: Centrilobular and paraseptal emphysema appreciated bilaterally especially in the upper lobes Left lower lobe 1.1 cm spiculated nodule, another 8 mm pulmonary nodule Small right-sided pleural effusion with right hilar/right lower lobe opacity likely representing postradiation changes Minimal mediastinal lymphadenopathy I would recommend a PET/CT to be done as an outpatient to see if any of the pulmonary nodules and/or mediastinal lymphadenopathy are positive and based on that finding to do diagnostic study either CT-guided biopsy versus EBUS +/- robotic bronc Continue with CPAP machine for YISSEL Recommend quitting smoking as he still smoking 1 and half pack a day Incentive spirometry will be beneficial Please note the above document was generated using voice recognition software. It may contain grammatical, syntax or spelling errors.Any formal questions or concerns about the content, text or information contained within the body of this dictation should be directly addressed to the provider for clarification. History of Present Illness Reason for Consultation: PNA/adenocarcinoma of lung Requesting Physician: CHRISTOPHE Baird History of Present Illness Patient is a 77-year-old male with an extensive past medical history including known occlusive coronary artery disease, COPD, history of CVA, and prior history of RIGHT lower lobe adenocarcinoma status post SBRT therapy in 2020. The patient continues to follow on an annual basis with radiation oncology out of [facility] [address]. He has known scarring of the RIGHT lower lobe of the lung and a prior known nodule to the LEFT upper lobe. Patient has a significant history of COPD. He has been on multiple inhalers in the past. His current treatment regime consists of Advair HFA, Pulmicort, Daliresp, and as needed albuterol nebulizers. Additionally, at home, the patient did recently start AirSupra as his rescue inhaler. Patient presented to the emergency department today from his primary care provider's office visit with complaints of pain in his chest which radiates to his back and neck. He reports that the symptoms started Wednesday or last week. The symptoms waxed and waned over the weekend. He has not felt discomfort since approximately 2 PM this afternoon. He states that his breathing has not been any worse than it is at baseline. He reports daily wheezing. He states that most of inhalers typically do not provide any symptomatic relief. He reports no fevers or chills. No recent sequela of upper respiratory infections. No productive cough or hemoptysis. No worsening shortness of breath at his baseline. Allergies Allergy/AdvReac Type Severity Reaction Status Date / Time acetaminophen AdvReac Severe SEVERE Verified 07/12/23 14:33 HEADACHE-PER PT "BRAIN SWELLS". Home Medications Medication Instructions Recorded Confirmed Type albuterol sulfate 2.5 mg/3 mL 2.5 mg inhalation DIRECTED PRN 04/14/23 07/12/23 History (0.083 %) solution for nebulization Shortness Of Breath Or Wheezing albuterol sulfate 90 mcg/actuation 2 puff inhalation QID PRN 04/14/23 07/12/23 History aerosol inhaler (Ventolin HFA) Shortness Of Breath Or Wheezing apixaban 5 mg tablet (Eliquis) 5 mg PO BID 04/14/23 07/12/23 History atorvastatin 80 mg tablet 80 mg PO HS 04/14/23 07/12/23 History buspirone 10 mg tablet 10 - 20 mg PO BID PRN Anxiety 04/14/23 07/12/23 History clonazepam 0.5 mg tablet 0.5 mg PO HS 04/14/23 07/12/23 History colchicine 0.6 mg tablet 0.6 mg PO DIRECTED PRN GOUT 04/14/23 07/12/23 History FLARE UP cyanocobalamin (vitamin B-12) 1,000 mcg PO QAM 04/14/23 07/12/23 History 1,000 mcg tablet (Vitamin B-12) fluoxetine 20 mg capsule 60 mg PO QAM 04/14/23 07/12/23 History fluticasone propionate 230 2 puff inhalation BID 04/14/23 07/12/23 History mcg-salmeterol 21 mcg/actuation HFA inhaler (Advair HFA) fluticasone propionate 50 2 spray intranasal QAM 04/14/23 07/12/23 History mcg/actuation nasal spray,suspension furosemide 40 mg tablet (Lasix) 40 mg PO QAM 04/14/23 07/12/23 History gabapentin 300 mg capsule 300 mg PO HS 04/14/23 07/12/23 History iron,carbonyl 65 mg-vitamin C 125 1 tab PO QAM 04/14/23 07/12/23 History mg tablet,delayed release (Vitron-C) isosorbide mononitrate 60 mg 60 mg PO QAM 04/14/23 07/12/23 History tablet,extended release 24 hr metoprolol succinate 25 mg 25 mg PO QAM 04/14/23 07/12/23 History tablet,extended release 24 hr mirtazapine 15 mg tablet 7.5 mg PO HS 04/14/23 07/12/23 History multivitamin 1 tab PO QAM 04/14/23 07/12/23 History omeprazole 20 mg capsule,delayed 20 mg PO QAM 04/14/23 07/12/23 History release risperidone 0.5 mg tablet 0.5 mg PO HS 04/14/23 07/12/23 History roflumilast 500 mcg tablet 500 mcg PO QAM 04/14/23 07/12/23 History tiotropium bromide 18 mcg capsule 1 cap inhalation QAM 04/14/23 07/12/23 History with inhalation device (Spiriva with HandiHaler) budesonide 0.25 mg/2 mL suspension 0.25 mg inhalation BID 07/12/23 07/12/23 History for nebulization clopidogrel 75 mg tablet 75 mg PO QAM 07/12/23 07/12/23 History metformin 500 mg tablet,extended 500 mg PO BID 07/12/23 07/12/23 History release 24 hr Patient History Medical History (Updated 07/13/23 @ 13:07 by Patricia Zabala DNP) Palliative care by specialist Advanced care planning/counseling discussion COPD, severe Severe muscle deconditioning Weakness generalized Dyspnea and respiratory abnormalities Pneumonia Chronic anticoagulation History of CVA (cerebrovascular accident) HLD (hyperlipidemia) Tobacco use COPD (chronic obstructive pulmonary disease) Anemia of chronic disease Adenocarcinoma of left lung Social History Smoking Status: Current every day smoker Tobacco Type: Cigarettes Cigarettes Per Day: 1.5 ppd; Do You Dip or Chew Tobacco: No; Hx Alcohol Use: No Hx Substance Use: No Preferred Language: Swedish Communication Ability: Effective Administrative Coordinator Required: No Beliefs That Will Affect Care: None Current Living Situation: Spouse Feels Safe at Home: Yes Safety Concerns: Feels Safe At This Time Assistive Devices: CPAP and Walker Review of Systems 2 Review of Systems: A complete 10 point review of systems was reviewed with the patient with pertinent positives and negatives as per history of present illness. All else were negative. Physical Exam 2 Physical Exam: VITAL SIGNS - Vital signs and nursing notes were reviewed. GENERAL - 77-year-old male appearing hid stated age who is in no acute distress. Communicates well with provider and answers questions appropriately. SKIN - Without rashes or lesions. NOSE - Midline and without cyanosis. MOUTH/OROPHARYNX - Without perioral cyanosis. NECK - Neck with FROM. LUNGS - Chest wall evaluation demonstrates an increased chest wall A:P diameter. Auscultation reveals delayed air entry with bilateral wheezes present. CARDIAC - RRR with S1/S2. No murmur, rubs, or gallops appreciated. ABDOMEN - Abdominal inspection demonstrates an obese abdomen. BS normoactive all four quadrants. No tenderness, palpable masses, or ascites noted. PSYCH - A&Ox3 and cooperates fully with examiner. Pt is very pleasant and interacts well with examiner. Results & Data Results & Data Vital Signs (Past 12 Hours) Vital Signs Temp Pulse Pulse Resp BP BP Pulse Ox 07/12/23 15:54 70 141/82 H 96 07/12/23 13:04 68 20 135/65 94 07/12/23 12:24 69 07/12/23 11:34 92 07/12/23 11:33 92 07/12/23 11:26 07/12/23 11:26 36.8 C 83 20 113/76 92 O2 Del Method 07/12/23 15:54 Room Air 07/12/23 13:04 Room Air 07/12/23 12:24 07/12/23 11:34 Room Air 07/12/23 11:33 Room Air 07/12/23 11:26 Room Air 07/12/23 11:26 Room Air Laboratory Results 07/13/23 07:42 07/13/23 07:42 PG Care Time/CCT Total # of Minutes Spent Total Time Spent with Patient: Total time spent is greater than 50% in coordination of care (as documented) at patient's floor/unit and/or counseling patient: Coding Level of Care Code 57666 INT INP/OBS CARE 3/75MIN Diagnoses COPD (chronic obstructive pulmonary disease) J44.9 Adenocarcinoma of lower lobe of right lung C34.31 YISSEL (obstructive sleep apnea) G47.33 Tobacco use Z72.0 Chest pain R07.9
[2023-07-12] MEDS ORDERED: ALBUT/IPRATROP 3MG/0.5MG NEB 3 ML VIAL INH PRN (16:59)
[2023-07-12] MEDS: FUROSEMIDE 40 MG/4 ML VIAL IV ONE (17:45)
[2023-07-12] MEDS ORDERED: CARBOHYDRATES FOR HYPOGLYCEMIA PO PRN (18:35)
[2023-07-12] MEDS ORDERED: PHARMACY GLYCEMIC MGMT CONSULT PRN (18:35)
[2023-07-12] MEDS ORDERED: GLUCOSE 40% GEL 15 GM TUBE PO PRN (18:35)
[2023-07-12] MEDS ORDERED: GLUCOSE 10 TAB/TUBE PO PRN (18:35)
[2023-07-12] MEDS ORDERED: GLUCAGON FOR INJ 1 MG VIAL SQ PRN (18:35)
[2023-07-12] MEDS ORDERED: DEXTROSE 50% 50 ML SYRINGE IV PRN (18:35)
--- OUTSIDE RECORDS SUMMARY | 2023-07-12 18:44 | External Medical Summary | Summary of Care ---
Author Name Unknown Organization [facility] Address [address] [place] [address] Phone [phone] Care Team Providers Care Enterprise Resource Planner Name Role Phone Johnnie Newby MD Primary Care Provider [phone] Reason for Visit * Reason Onset Date Comments Test Results 07/11/2023 Unexpected or In determinate Result Encounter Details Date Type Department Care Team (Late st Contact Info) Description 07/11/2023 Telephone Radiation Oncology, [address] [place] [address] Shawna Johnson MD [address] [place] [address] [place] [id number] Test Results (Unexpected or Indeterminate ... Allergies Active Allergy Reactions Criticality Noted Date Comments Acetaminophen 05/06/2005 headaches documented as of this encounter (statuses as of 07/11/2023) Medications Medication Sig Dispensed Refills Start Date [...] ONCE DAILY 100 Strip 5 03/02/2018 Active BiPAP every night at bedtime. 0 Active Vitamin B-12 1000 MCG Oral Tablet (Cyanocobalamin) Take 1 Tablet by mouth in the morning. 0 Active Isosorbide Mononitrate ER 60 MG Oral Tablet Extended Release 24 Hour (Imdur)Indications:C oronary artery disease involving [place] coronary artery without angina pectoris TAKE ONE TABLET BY MOUTH EVERY MORNING 90 Tablet 3 09/18/2022 4 Active Apixaban 5 MG Oral Tablet (Eliquis) Take 1 Tablet by mouth in the morning and 1 Tablet before bedtime. 180 Tablet 3 12/08/2022 Active Metoprolol Succinate ER 25 MG Oral Tablet Extended Release 24 Hour (toPROL XL)Indications:SVT (supraventricular tachycardia),NSVT (nonsustained ventricular tachycardia) ([facility]) TAKE ONE TABLET BY MOUTH EVERY [...] for anxiety 180 Tablet 0 02/09/2023 Active Omeprazole 20 MG Oral Capsule Delayed Release (PriLOSEC)Indication s:Gastroesophageal reflux disease without esophagitis TAKE ONE CAPSULE BY MOUTH EVERY MORNING *NEED UPDATED LABS* 90 Capsule 1 03/21/2023 4 Active Nitroglycerin 0.4 MG Sublingual Tablet Sublingual (Nitrostat) Place 1 Tablet under the tongue every 5 minutes as needed for Pain, Chest. up to 3 doses in 15 minutes 75 Tablet 3 04/18/2023 Active Colchicine 0.3 MG OR TABS 1 Tablet. 0 04/14/2023 Active FLUoxetine HCl 20 MG Oral Capsule (PROzac) Take 3 Capsules by mouth in the morning. 270 Capsule 3 04/23/2023 Active Mirtazapine 15 MG Oral Tablet (Remeron) Take one- half tablet by mouth every night 45 Tablet 0 05/06/2023 Active risperiDONE 0.5 MG Oral Tablet (RisperDAL) Take one tablet by mouth every night at bedtime 90 Tablet 0 05/06/2023 Active Gabapentin 300 MG Oral Capsule (Neurontin) Take 1 Capsule by mouth at bedtime. 90 Capsule 3 05/12/2023 Active Budesonide 0.25 MG/2ML Inhalation Suspension (Pulmicort) Inhale 0.25 mg via nebulizer 2 times a day as needed for Dyspnea or Wheezing. 160 mL 3 05/24/2023 4 Active Wixela Inhub 250-50 MCG/ACT Inhalation Aerosol Powder Breath Activated (Fluticasone-Salmet[place] rol) Inhale 1 Puff by mouth in the morning and 1 Puff before bedtime. 60 Each 2 05/24/2023 4 Active Roflumilast 500 MCG Oral Tablet (Daliresp)Indication s:COPD, group D, by GOLD 2017 classification ([facility]) Take 1 Tablet by mouth in the morning. 30 Tablet 2 05/24/2023 4 Active Tiotropium [place] Monohydrate 18 MCG Inhalation Capsule (Spiriva) Inhale 1 Capsule by mouth in the morning. 30 Capsule 2 05/24/2023 4 Active Full Kit Nebulizer Set Use with Nebulizer Medication EVERY FOUR HOURS as directed. Dx Code: J44.9 1 Each 3 05/28/2023 Active metFORMIN HCl ER 500 MG Oral Tablet Extended Release 24 Hour (Glucophage XR) Take 2 Tablets by mouth in the morning. 60 Tablet 11 06/03/2023 Active Clopidogrel Bisulfate 75 MG Oral Tablet (pLAVix) Take 1 Tablet by mouth in the morning. 90 Tablet 2 06/23/2023 Active Hospital, Clinic, or Other Facility Administered Medication Ordered Dose Route Frequency Start Date End Date Status albuterol sulfate (PROVENTIL) (2.5 MG/3ML) 0.083% inhalation solution 2.5 mgIndications:COPD, severe (HCC) 2.5 mg NEBULIZER Q4H PRN 07/08/2018 Active documented as of this encounter (statuses as of 07/11/2023) Active Problems Problem Noted Date Diagnosed Date Closed nondisplaced fracture of fifth metatarsal bone of right foot with routine healing 03/10/2023 Diabetic peripheral neuropathy 01/15/2023 Diverticulosis of large intestine without hemorr isaura 01/15/2023 Anemia of chronic disease 01/15/2023 Gouty arthropathy 12/22/2022 Overweight (BMI 25.0-29.9) 09/09/2022 History of cardioembolic cerebrovascular acciden t (CVA) 06/09/2022 Depression with anxiety 06/05/2022 Malignant neoplasm of right upper lobe of [...] Classification Dyslipidemia 02/07/2019 Peripheral arterial disease 12/28/2018 YISSEL treated with BiPAP 01/03/2018 Overview: Wears BiPAP at night Type 2 diabetes mellitus wit h hemoglobin A1c goal of less than 8.0% 10/23/2014 Overview: ICD-10 update of inactive term PTSD (post-traumatic stress disorder) 01/05/2014 Gastroesophageal reflux disease without esophagi tis 01/05/2014 Coronary artery disease invo lving [place] coronary artery of [place] heart without angina pectoris 11/27/2013 Tobacco abuse 11/27/2013 HTN, goal below 130/80 03/06/2009 Overview: Modified per HTN protocol #16. documented as of this encounter (statuses as of 07/11/2023) Resolved Problems Problem Noted Date Diagnosed Date Resolved Date Obesity, Class II, BMI 35-39 .9, isolated (see actual BMI) 12/02/2021 09/09/2022 Obesity, Class I, BMI 30.0-3 4.9 (see actual BMI) 06/04/2021 04/23/2023 Type 2 diabetes mellitus wit h stage [...] pu lmonary disease) with emphysema 04/25/2018 11/29/2020 NSTEMI (non-ST elevated myoc ardial infarction) 01/03/2018 04/18/2023 History of smoking 30 or more pack years 01/03/2018 11/29/2020 Kidney disease, chronic, sta ge III (GFR 30-59 ml/min) 04/29/2015 08/27/2016 Overview: Per CKD protocol #1 CVA, old, ataxia 01/05/2014 04/22/2023 Overview: Residual balance problems Will fall if his eyes are closed. COPD, moderate 01/05/2014 04/25/2018 Depression, major, recurrent [...] as of this encounter (statuses as of 07/11/2023) Immunizations Name Administration Dates Next Due COVID-19 mRNA, LNP-s, No Pre serve, 2-Dose Series ([employer]) 02/25/2023,02/10/2022,07/13/2020,06/17 Pneumococcal Conjugate Vacc, 13 Valent (Prevnar) [...] pur e alcohol) PHQ-2 Answer Date Recorded PHQ Adult Total Score 0 04/22/2023 Hunger Vital Sign Answer Date Recorded Within the past 12 months, y ou worried that your food would run out before you got the money to buy more. Never true 05/13/19 24 Within the past 12 months, t he food you bought just didn't last and you didn't have money to get more. Never true 05/13/2023 Sex and Gender Information Value Date Recorded Sex Assigned at Male 08/02/2018 7:58 AM EDT Gender Identity Male 08/02/2018 7:58 AM EDT Sexual Orientation Straight 08/02/2018 7: 58 AM EDT Job Start Date Occupation Industry Not on file Not on file Not on file documented as of this encounter Functional Status Functional Status Response Date of Assess ment Are you deaf or do you have serious difficulty h earing? Yes 04/15/2023 Are you blind or do you have serious difficulty seeing, even when wearing glasses? No 04/15/2023 Do you have serious difficul ty walking or climbing stairs? (5 years old or older) Yes 04/15/2023 Do you have difficulty dress ing or bathing? (5 years old or older) Yes 04/15/2023 Because of a physical, menta l, or emotional condition, do you have difficulty doing errands alone such as visiting a doctor s office or shopping? (15 years old or older) No 04/15/20 Cognitive Status Response Date of Assessm ent Because of a physical, menta l, or emotional condition, do you have serious difficulty concentrating, remembering, or making decisions? (5 years old or older) No 04/15/2023 documented as of this encounter Miscellaneous Notes * Telephone Encounter - Emelina Poole OSA - 07/11/2023 8:34 PM EDT Hello- The radiologist discovered an unexpected or indeterminate finding on Walter Don ([id number]) andasks that you review the following report. Study Type:CT CHEST WO CONTRAST Date of Study: 07/08/23 IMPRESSION 1. Redemonstration of posttreatment changes in the right lower lobe with slightly increased consolidation. This could be related to evolving posttreatment changes or superimposed infection. Continuedfollow-up recommended to exclude progression and possibility of recurrence. 2. Increased size of left upper lobe nodule. Consider PET-CT/biopsy. 3. Mild increase in the size of another left upper lobe nodule. Couple of new left lung nodules. A few additional left lung nodules are stable. Attention recommended on follow-up. Please respond to this encounter to acknowledge receipt of this message and take responsibility to ensure this report is reviewed. Thank you, YISSEL Orellana Client Service Rep [facility] documented in this encounter Plan of Treatment Upcoming Encounters Date Type Department Care Team (Late st Contact Info) Description 07/19/2023 11:40 AM EDT Office Visit Family Practice [facility] [address] [place] [address] Johnnie Newby MD [address] [place] [address] 07/20/2023 11:30 AM EDT Office Visit Cardiology, [facility] [address] [place] [address] Warren Montoya DO [address] [place] [address] 07/27/2023 11:00 AM EDT Office Visit Radiation Oncology, [address] [place] [address] Shawna Johnson MD [address] [place] [address] [place] [address] 07/28/2023 9:30 AM EDT Office Visit Orthopaedics [facility] 132 [facility] [place] [address] Zander Wilkins, DO [address] [facility] [place] [address] 08/30/2023 9:45 AM EDT Office Visit Orthopaedics [facility] 132 [facility] [place] [address] Zander Wilkins, DO 132 [facility] [place] [address] 08/30/2023 10:20 AM EDT Office Visit Podiatry [facility] 132 [facility] [place] [address] Bettye Herrmann DPM [address] [place] [address] 09/02/2023 11:00 AM EDT Laboratory Laboratory [address] [place] [phone] [address] [place] [address] 09/09/2023 11:00 AM EDT Office Visit Hematology/Oncology [facility] [place] [address] [place] [phone] Lexie Palmer CRNP [address] [place] [address] 09/16/2023 9:00 AM EDT Office Visit Cardiology, [facility] 132 [facility] [place] [address] Deisy Aguirre CRNP [address] [place] [address] Scheduled Procedures Name Priority Associated Diagnoses Date/Ti me COLONOSCOPY FLEXIBLE PROXIMA L DIAGNOSTIC Recall History of colonic polyps Health Maintenance Due Date Last Done Comments COVID-19 Vaccine ( season) 2023 02/25/2023, 02/10/2022, 07/13/2020, Additional history exists DISCUSS TOBACCO CESSATION (REFER TO SMARTSET #3291) 05/01/2023 05/01/2022, 02/13/2022 Diabetic Eye Exam 07/09/2023 07/08/2022, , 06/10/2021, Additional history exists Diabetic Foot Exam 09/10/2023 09/09/2022, 1 , 11/12/2017, Additional history exists HbA1c 10/16/2023 04/16/2023, 12/19, 06/05/2022, Additional history exists GFR 10/17/2023 04/18/2023, 03/21, 04/16/2023, Additional history exists DTaP,Tdap,and Td Vaccines (2 - Td or Tdap) 01/06/2024 01/05/2014 O2 ASSESSMENT COMPLETED IN PAST YEAR FOR COPD 01/15/2024 01/14/2023 Albumin/Creatinine Ratio 02/05/2024 023, 01/15/2023, 06/04/2021, Additional history exists CKD PHOS USE SMARTSET 97825 04/15/202403/20, 06/05/2022, 06/03/2021, Additional history exists Depression Screening 04/22/2024 04/22/2023 CKD HGB USE SMARTSET 35158 06/03/202406/03, 06/03/2023, 04/18/2023, Additional history exists COLONOSCOPY-EVERY 2 YRS AGES [...] this encounter Medical Devices Implanted Type Area Itinerant Teacher Assistant Device Identifier Shelf Expiration Date Model / Serial / Lot Lens Intraoc 24.0 - [id number] - [id number] Implanted:Qty: 1 on 06/01/2017 by Nikhil Bolton MD at [facility] Left: Eye [employer] 07/17/2021 [id number] / [id number] / [id number] Lens Intraoc 24.0 - [id number] - [id number] Implanted:Qty: 1 on 06/08/2017 by Nikhil Bolton MD at [facility] Right: Eye [employer] LOMB 07/17/2021 [id number] / [id number] / [id number] documented as of this encounter Advance Directives Documents on File Type Date Recorded 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 Question Answer Comments Discussion of Advance Directives occurred with: Patient Code Status History Code Status Date Activated Date Inactivated Comments Full Code 06/08/2017 6:21 AM 06/08/2017 1:09 PM This order reflects the patients wishes and were consensually agreed upon. Full Code 06/01/2017 7:04 AM 06/01/2017 1:27 PM This order reflects the patients wishes and were consensually agreed upon. Care Teams Enterprise Resource Planner Relationship Specialty Start Date End Date Johnnie Newby MD [address] [place] [address] PCP - General Family Medicine 09/13/20 documented as of this encounter
--- OUTSIDE RECORDS SUMMARY | 2023-07-12 18:45 | External Medical Summary | Summary of Care ---
Author Name Unknown Organization [facility] Address [address] [place] [address] Phone [phone] Care Team Providers Care Commercial Energy Rater Name Role Phone Johnnie Newby MD Primary Care Provider [phone] Encounter Details Date Type Department Care Team (Late st Contact Info) Description 07/04/2023 Patient Reported Data Patient Survey Ortho [facility]BER[facility] Allergies Active Allergy Reactions Criticality Noted Date Comments Acetaminophen 05/06/2005 headaches documented as of this encounter (statuses as of 07/04/2023) Medications Medication Sig Dispensed Refills Start Date End Date Status DAILY MULTIVITAMIN PO TABS with lycopene 0 Active BUSPAR 15 MG PO TABS Take by mouth. Uses as needed 0 Active clonazePAM (KLONOPIN) 0.5 MG Tablet Uses as needed 0 06/17/2016 Active ONETOUCH ULTRA BLUE STRPIndications:Type 2 diabetes mellitus with hemoglobin A1c goal of less than 7.0% ([facility]) TEST ONCE DAILY 100 Strip 5 03/02/2018 Active BiPAP every night at bedtime. 0 Active Vitamin B-12 1000 MCG Oral Tablet (Cyanocobalamin) Take 1 Tablet by mouth in the morning. 0 Active Isosorbide Mononitrate ER 60 MG Oral Tablet Extended Release 24 Hour (Imdur)Indications:C oronary artery disease involving [place] coronary artery without angina pectoris TAKE [...] group D, by GOLD 2017 classification ([facility]) Take 1 Tablet by mouth in the morning. 30 Tablet 2 05/24/2023 4 Active Tiotropium [place] Monohydrate 18 MCG Inhalation Capsule (Spiriva) Inhale [...] as of this encounter (statuses as of 07/04/2023) Active Problems Problem Noted Date Diagnosed Date [...] tis 01/05/2014 Coronary artery disease invo lving [place] coronary artery of [place] heart without angina pectoris 11/27/2013 Tobacco abuse 11/27/2013 HTN, goal below 130/80 03/06/2009 Overview: Modified per HTN protocol #16. documented as of this encounter (statuses as of 07/04/2023) Resolved Problems Problem Noted Date Diagnosed Date [...] as of this encounter (statuses as of 07/04/2023) Immunizations Name Administration Dates Next Due COVID-19 mRNA, LNP-s, No Pre serve, 2-Dose Series ([employer]) 02/25/2023,02/10/2022,07/13/2020,06/17 Pneumococcal Conjugate Vacc, 13 Valent (Prevnar) [...] No 04/15/2023 documented as of this encounter Plan of Treatment Upcoming Encounters Date Type Department Care Team (Late st Contact Info) Description 07/08/2023 10:00 AM EDT Imaging Radiology [facility], [address] [place] [address] 07/19/2023 11:40 AM EDT Office Visit Family Practice [facility] [address] [facility] [place] [address] Johnnie Newby MD [address] [place] [address] 07/20/2023 11:30 AM EDT Office Visit Cardiology, [facility] [address] [facility] [place] [address] Warren Montoya, DO 132 [facility] [place] [address] 07/27/2023 11:00 AM EDT Office Visit Radiation Oncology, [address] [place] [address] Shawna Johnson MD [address] [place] [address] [place] [address] 07/28/2023 9:30 AM EDT Office Visit Orthopaedics [facility] [address] [facility] [place] [address] Zander Wilkins, DO 132 [facility] [place] [address] 08/30/2023 9:45 AM EDT Office Visit Orthopaedics [facility] [address] [facility] [place] [address] Zander Wilkins, DO [facility] [place] [address] 08/30/2023 10:20 AM EDT Office Visit Podiatry [facility] [address] [facility] [place] [address] Bettye Herrmann, DPM [address] [place] [address] [place] [address] 09/02/2023 11:00 AM EDT Laboratory Laboratory [address] [place] [phone] [place] [address] 09/09/2023 11:00 AM EDT Office [facility]ology[facility] [address] [facility] [place] [address] Lexie Palmer CRNP [address] [facility] [place] [address] 09/16/2023 9:00 AM EDT Office Visit Cardiology, [facility] [address] [place] [address] Deisy Aguirre CRNP [address] [place] [address] Scheduled Procedures Name Priority Associated Diagnoses Date/Ti me COLONOSCOPY FLEXIBLE PROXIMA L DIAGNOSTIC Recall History of colonic polyps Health Maintenance Due Date Last Done Comments COVID-19 Vaccine ( season) 2023 02/25/2023, 02/10/2022, 07/13/2020, Additional history exists DISCUSS TOBACCO CESSATION (REFER TO SMARTSET #1335) 05/01/2023 05/01/2022, 02/13/2022 Diabetic Eye Exam 07/09/2023 [...] Additional history exists CKD PHOS USE SMARTSET 16317 04/15/202403/20, 06/05/2022, 06/03/2021, Additional history exists Depression Screening 04/22/2024 04/22/2023 CKD HGB USE SMARTSET 22142 06/03/202406/03, 06/03/2023, 04/18/2023, Additional history exists COLONOSCOPY-EVERY [...] this encounter Medical Devices Implanted Type Area Power Shovel Operator Helper Device Identifier Shelf Expiration Date Model / Serial / Lot Lens Intraoc 24.0 - [id number] - [id number] Implanted:Qty: 1 on 06/01/2017 by Nikhil Bolton MD at [facility] Left: Eye [employer]OMB 07/17/2021 [id number] / [id number] / [id number] Lens Intraoc 24.0 - [id number] - [id number] Implanted:Qty: 1 on 06/08/2017 by Nikhil Bolton MD at OR [facility] Right: Eye BAUSCH [employer] LOMB 07/17/2021 [id number] / [id number] / [id number] documented as of this encounter Advance Directives Documents on File Type Date Recorded Patient Primary Teacher Expl anation Advance Directives and Yu fine [...] and were consensually agreed upon. Care Teams Commercial Energy Rater Relationship Specialty Start Date End Date Johnnie Newby MD [address] [place] [address] PCP - General Family Medicine 09/13/20 documented as of this encounter
--- OUTSIDE RECORDS SUMMARY | 2023-07-12 18:45 | External Medical Summary | Summary of Care ---
Author Name Unknown Organization [facility] Address [address] [place] [address] Phone [phone] Care Team Providers Care Road Worker Name Role Phone Johnnie Newby MD Primary Care Provider [phone] Reason for Visit * Reason Comments Knee Pain bilateral Encounter Details Date Type Department Care Team (Latest Contact Info) Description 06/28/2023 10:30 AM EDT Office Visit Orthopaedics [facility] [address] [place] [address] Zander Wilkins, DO [address] [place] [address] Primary osteoarthritis of both knees* Allergies Active Allergy Reactions Criticality Noted Date Comments Acetaminophen 05/06/2005 headaches documented as of this encounter (statuses as of 06/28/2023) Medications Medication Sig Dispensed Refills Start Date End Date Status DAILY MULTIVITAMIN PO TABS with lycopene 0 Active BUSPAR 15 MG PO TABS Take by mouth. Uses as needed 0 Active clonazePAM (KLONOPIN) 0.5 MG Tablet Uses as needed 0 06/17/2016 Active ONETOUCH ULTRA BLUE STRPIndications:Type 2 diabetes mellitus with hemoglobin A1c goal of less than 7.0% ([facility]) TEST ONCE DAILY 100 Strip 5 03/02/2018 Active BiPAP every night at bedtime. 0 Active Vitamin B-12 1000 MCG Oral Tablet (Cyanocobalamin) Take 1 Tablet by mouth in the morning. 0 Active Isosorbide Mononitrate ER 60 MG Oral Tablet Extended Release 24 Hour (Imdur)Indications:C oronary artery disease involving [place] coronary artery without angina pectoris TAKE ONE [...] ventricular tachycardia) ([facility]) TAKE ONE TABLET BY MOUTH EVERY [...] 2017 classification ([facility]) Take 1 Tablet by mouth in the morning. 30 Tablet 2 05/24/2023 4 Active Tiotropium [place] Monohydrate 18 MCG Inhalation Capsule (Spiriva) Inhale [...] as of this encounter (statuses as of 06/28/2023) Active Problems Problem Noted Date Diagnosed Date [...] tis 01/05/2014 Coronary artery disease invo lving [place] coronary artery of [place] heart without angina pectoris 11/27/2013 Tobacco abuse 11/27/2013 HTN, goal below 130/80 03/06/2009 Overview: Modified per HTN protocol #16. documented as of this encounter (statuses as of 06/28/2023) Resolved Problems Problem Noted Date Diagnosed Date [...] as of this encounter (statuses as of 06/28/2023) Immunizations Name Administration Dates Next Due COVID-19 mRNA, LNP-s, No Pre serve, 2-Dose Series (VideoStep) 02/25/2023,02/10/2022,07/13/2020,06/17 Pneumococcal Conjugate Vacc, 13 Valent (Prevnar) [...] No 04/15/2023 documented as of this encounter Progress Notes * Zander Wilkins, DO - 06/28/2023 10:30 AM EDT Walter Don [id number] Walter Don is a 77 year old male who presents for follow up of bilateral knee pain to [facility]. Walter Don is here with his/her Last had Durolane injection 07/27/22, last IA steroid 01/18/23 TODAY: Feels injections are still working well. We would like to have a conversation about continuing steroids versus hyaluronic acids. Wants his knees to feel great as his will be having a CARLOS soon by Dr. Encinas Past Medical History: Diagnosis Date Anemia of [...] (HCC) 10/23/2014 ICD-10 update of inactive term Current Outpatient Medications Medication Sig Dispense Refill DAILY MULTIVITAMIN PO TABS with lycopene BUSPAR 15 MG PO TABS Take by mouth. Uses as needed (Patient not taking: Reported on 06/03/2023) clonazePAM (KLONOPIN) 0.5 MG Tablet Uses as needed 0 ONETOUCH ULTRA BLUE STRP TEST ONCE DAILY 100 Strip 5 BiPAP every night at bedtime. Vitamin B-12 1000 MCG Oral Tablet (Cyanocobalamin) Take 1 Tablet by mouth in the morning. Isosorbide Mononitrate ER 60 MG Oral Tablet Extended Release 24 Hour (Imdur) TAKE ONE TABLET BY MOUTH EVERY MORNING 90 Tablet 3 Apixaban 5 MG Oral Tablet (Eliquis) Take 1 Tablet by mouth in the morning and 1 Tablet before bedtime. 180 Tablet 3 Metoprolol Succinate ER 25 MG [...] daily as needed foranxiety 180 Tablet 0 Omeprazole 20 MG Oral Capsule Delayed Release (PriLOSEC) TAKE ONE CAPSULE BY MOUTH EVERY MORNING *NEED UPDATED LABS* 90 Capsule 1 Nitroglycerin 0.4 MG Sublingual Tablet Sublingual (Nitrostat) Place 1 Tablet under the tongue every5 minutes as needed for Pain, Chest. up to 3 doses in 15 minutes 75 Tablet 3 Colchicine 0.3 MG OR TABS 1 Tablet. (Patient not taking: Reported on 06/03/2023) FLUoxetine HCl 20 MG Oral Capsule (PROzac) Take 3 Capsules by mouth in the morning. 270 Capsule 3 Mirtazapine 15 MG Oral Tablet (Remeron) Take one- half tablet by mouth every night 45 Tablet 0 risperiDONE 0.5 MG Oral Tablet (RisperDAL) Take one tablet by mouth every night at bedtime 90 Tablet 0 Gabapentin 300 MG Oral Capsule (Neurontin) Take 1 Capsule by mouth at bedtime. 90 Capsule 3 Budesonide 0.25 MG/2ML Inhalation Suspension (Pulmicort) Inhale 0.25 mg via nebulizer 2 times a dayas needed for Dyspnea or Wheezing. 160 mL 3 Wixela Inhub 250-50 MCG/ACT Inhalation Aerosol Powder Breath Activated (Fluticasone-Salmeterol) Inhale 1 Puff by mouth in the morning and 1 Puff before bedtime. 60 Each 2 Roflumilast 500 MCG Oral Tablet (Daliresp) Take 1 Tablet by mouth in the morning. 30 Tablet 2 Tiotropium [place] Monohydrate 18 MCG Inhalation Capsule (Spiriva) Inhale 1 Capsule by mouth in themorning. 30 Capsule 2 Full Kit Nebulizer Set Use with Nebulizer Medication EVERY FOUR HOURS as directed. Dx Code: J44.9 1 Each 3 metFORMIN HCl ER 500 MG Oral Tablet Extended Release 24 Hour (Glucophage XR) Take 2 Tablets by mouth in the morning. 60 Tablet 11 Clopidogrel Bisulfate 75 MG Oral Tablet (pLAVix) Take 1 Tablet by mouth in the morning. 90 Tablet 2 Current Facility-Administered Medications Medication Dose Route Frequency Provider Last Rate Last Admin albuterol sulfate (PROVENTIL) (2.5 MG/3ML) 0.083% inhalation solution 2.5 mg 2.5 mg Nebulizer Q4H PRN Junaid Pyel MD 2.5 mg at 07/26/18 1521 Hemoglobin AIC Results: Lab Results Component Value Date/Time HEMOGLOBIN A1C - [facility] 6.0 (H) 04/16/2023 05:50 AM HEMOGLOBIN A1C - [facility] 6.0 (H) 01/15/2023 11:14 AM HEMOGLOBIN A1C - [facility] 6.2 (H) 06/05/2022 12:49 PM HEMOGLOBIN A1C - [facility] 6.1 (H) 11/30/2019 09:17 AM HEMOGLOBIN A1C - [facility] 6.2 (H) 05/22/2019 10:28 AM HEMOGLOBIN A1C - [facility] 6.2 (H) 01/16/2019 10:16 AM Physical Exam Gait and Station: slightly antalgic Knee exam, bilateral Effusion: negative on Bilateral Palpation: MINIMAL tenderness to palpation medial joint line ROM: R - Flexion - 120 degrees, Extension - 0 degrees L - Flexion - 120 degrees, Extension -0 degrees R- Strength: Extension - 5/5 Flexion - 5/5 L - Strength: Extension - 5/5 Flexion - 5/5 Radiology : repeat not indicated Assessment and Plan: Patient will follow up in 2 months for intra-articular steroids. He may also changes mind regarding hyaluronic acids. If his 's surgery is sooner than 2 months I will get himin earlier so that he may be in the best possible shape to assist her around the house as she will be postsurgical. Primary osteoarthritis of both knees (Primary) Zander Wilkins DO Primary Care Sports Medicine Orthopaedics [facility] 132 [facility] [place] [address] documented in this encounter Nursing Notes * Pat Lyons MED ASSIST - 06/28/2023 10:03 AM EDT Follow up Patient Follow up: Knee Side: Bilateral Date of last visit: 04/26/23 Improvement since last office visit: percent. Prior Treatment: no Here for Test Results: No Goals for this appointment: CARRILLO inj documented in this encounter Plan of Treatment Upcoming Encounters Date Type Department Care Team (Late st Contact Info) Description 07/08/2023 10:00 AM EDT Imaging Radiology [facility] 1st [facility] [address] [place] [address] 07/19/2023 11:40 AM EDT Office Visit Family Practice [facility] [address] [place] [address] Johnnie Newby MD [address] [place] [address] 07/27/2023 11:00 AM EDT Office Visit Radiation Oncology, [address] [place] [address] Shawna Johnson MD [address] [place] [address] [place] [address] 07/30/2023 10:30 AM EDT Office Visit Cardiology, [facility] [address] [facility] [place], [place] [address] Warren Montoya, DO [address] [place] [address] 08/30/2023 9:45 AM EDT Office Visit Orthopaedics [facility] [address] [facility] [address] Zander Wilkins, DO [address] [facility] [place] [address] 08/30/2023 10:20 AM EDT Office Visit Podiatry [facility] 132 [facility] [place] [address] Bettye Herrmann DPM [address] [place] [address] 09/02/2023 11:00 AM EDT Laboratory Laboratory [address] [place] [id number] [address] [place] [address] 09/09/2023 11:00 AM EDT Office Visit Hematology/Oncology [facility] [place] [id number] Lexie Palmer CRNP [facility] [address] 09/16/2023 9:00 AM EDT Office Visit Cardiology, [facility] 132 [facility] [place] [address] Deisy Aguirre CRNP [address] [place] [address] Scheduled Procedures Name Priority Associated Diagnoses Date/Ti [...] Additional history exists CKD PHOS USE SMARTSET 98139 04/15/202403/20, 06/05/2022, 06/03/2021, Additional history exists Depression Screening 04/22/2024 04/22/2023 CKD HGB USE SMARTSET 45562 06/03/202406/03, 06/03/2023, 04/18/2023, Additional history exists COLONOSCOPY-EVERY [...] this encounter Medical Devices Implanted Type Area Erp Business Analyst Device Identifier Shelf Expiration Date Model / Serial / Lot Lens Intraoc 24.0 - [id number] - [id number] Implanted:Qty: 1 on 06/01/2017 by Nikhil Bolton MD at OR [facility] Left: Eye BAUSCH & LOMB 07/17/2021 [id number] / [id number] / [id number] Lens Intraoc 24.0 - [id number] - [id number] Implanted:Qty: 1 on 06/08/2017 by Nikhil Bolton MD at OR [facility] Right: Eye BAUSCH & LOMB 07/17/2021 [id number] / [id number] / [id number] documented as of this encounter Visit Diagnoses Diagnosis Primary osteoarthritis of both knees- Primary Primary localized osteoarthrosis, lower leg documented in this encounter Advance Directives Documents on File Type Date Recorded Patient Maintenance Instructor Expl anation Advance Directives and Livin [...] were consensually agreed upon. Care Teams Road Worker Relationship Specialty Start Date End Date Johnnie Newby MD [address] [place] [address] PCP - General Family Medicine 09/13/20 documented as of this encounter
--- OUTSIDE RECORDS SUMMARY | 2023-07-12 18:45 | External Medical Summary | Summary of Care ---
Author Name Unknown Organization [facility] Address [address] [place] [address] Phone [phone] Care Team Providers Care Wine Steward/Stewardess Name Role Phone Johnnie Newby MD Primary Care Provider [phone] Encounter Details Date Type Department Care Team [...] 24 Hour (Imdur)Indications:C oronary artery disease involving [place] coronary artery without angina pectoris TAKE ONE [...] 2017 classification ([facility]) Take 1 Tablet by mouth in the morning. 30 Tablet 2 05/24/2023 4 Active Tiotropium [place] Monohydrate 18 MCG Inhalation Capsule (Spiriva) Inhale [...] tis 01/05/2014 Coronary artery disease invo lving [place] coronary artery of [place] heart without angina pectoris 11/27/2013 Tobacco abuse [...] mRNA, LNP-s, No Pre serve, 2-Dose Series ([employer]) 02/25/2023,02/10/2022,07/13/2020,06/17 Pneumococcal Conjugate Vacc, 13 Valent (Prevnar) [...] Description 07/08/2023 10:00 AM EDT Imaging Radiology [facility] 1st [facility], [address] [place] [address] 07/19/2023 11:40 AM EDT Office Visit Family Practice [facility] 132 [facility] [place] [address] Johnnie Newby MD [address] [place] [address] 07/20/2023 11:30 AM EDT Office Visit Cardiology, [facility] 132 [facility] [place] [address] Warren Montoya, DO 132 [facility] [place] [address] 07/27/2023 11:00 AM EDT Office Visit Radiation Oncology, [address] [place] [address] Shawna Johnson MD [address] [place] [address] [place] [address] 07/28/2023 9:30 AM EDT Office Visit Orthopaedics [facility] 132 [facility] [place] [address] Zander Wilkins, DO 132 [facility] [place] [address] 08/30/2023 9:45 AM EDT Office Visit Orthopaedics [facility] 132 [facility] [place] [address] Zander Wilkins, DO [facility] [place] [address] 08/30/2023 10:20 AM EDT Office Visit Podiatry [facility] 132 [facility] [place] [address] Bettye Herrmann, DPM [address] [place] [address] [place] [address] 09/02/2023 11:00 AM EDT Laboratory Laboratory [address] [place] [phone] [place] [address] 09/09/2023 11:00 AM EDT Office Visit [facility]ology[facility] 200 [facility] [place] [address] Lexie Palmer CRNP 400 [facility] [place] [address] 09/16/2023 9:00 AM EDT Office Visit Cardiology, [facility] [address] [place] [address] Deisy Aguirre CRNP [address] [facility] [place] [address] Scheduled Procedures Name Priority Associated Diagnoses Date/Ti me COLONOSCOPY FLEXIBLE PROXIMA L DIAGNOSTIC Recall History of colonic polyps Health Maintenance Due Date Last Done Comments COVID-19 Vaccine ( season) 2023 02/25/2023, 02/10/2022, 07/13/2020, Additional history exists DISCUSS TOBACCO CESSATION (REFER TO SMARTSET #7398) 05/01/2023 05/01/2022, 02/13/2022 Diabetic Eye Exam 07/09/2023 [...] Additional history exists CKD PHOS USE SMARTSET 18490 04/15/202403/20, 06/05/2022, 06/03/2021, Additional history exists Depression Screening 04/22/2024 04/22/2023 CKD HGB USE SMARTSET 85642 06/03/202406/03, 06/03/2023, 04/18/2023, Additional history exists COLONOSCOPY-EVERY [...] this encounter Medical Devices Implanted Type Area Sleeve Baster Device Identifier Shelf Expiration Date Model / Serial / Lot Lens Intraoc 24.0 - [id number] - [id number] Implanted:Qty: 1 on 06/01/2017 by Nikhil Bolton MD at [facility] Left: Eye BAUSCH & LOMB 07/17/2021 [id number] / [id number] / [id number] Lens Intraoc 24.0 - [id number] - [id number] Implanted:Qty: 1 on 06/08/2017 by Nikhil Bolton MD at OR [facility] Right: Eye BAUSCH & LOMB 07/17/2021 [id number] / [id number] / [id number] documented as of this encounter Advance Directives Documents on File Type Date Recorded Patient Branch Director Expl anation Advance Directives and Yu [...] and were consensually agreed upon. Care Teams Wine Steward/Stewardess Relationship Specialty Start Date End Date Johnnie Newby MD [address] [place] [address] PCP - General Family Medicine 09/13/20 documented as of this encounter
--- OUTSIDE RECORDS SUMMARY | 2023-07-12 18:45 | External Medical Summary | Summary of Care ---
Author Name Unknown Organization [facility] Address [address] [place] [address] Phone [phone] Care Team Providers Care Warehouse Puller Name Role Phone Johnnie Newby MD Primary Care Provider [phone] Encounter Details Date Type Department Care Team [...] hemoglobin A1c goal of less than 7.0% ([facility]) TEST ONCE DAILY 100 Strip [...] s:COPD, group D, by GOLD 2017 classification ([facility]) Take 1 Tablet by mouth in the morning. 30 Tablet 2 05/24/2023 4 Active Tiotropium [place] Monohydrate 18 MCG Inhalation Capsule (Spiriva) Inhale [...] tis 01/05/2014 Coronary artery disease invo lving [place] [...] mRNA, LNP-s, No Pre serve, 2-Dose Series ([employer]) 02/25/2023,02/10/2022,07/13/2020,06/17 Pneumococcal Conjugate Vacc, 13 Valent (Prevnar) [...] 07/08/2023 10:00 AM EDT Imaging Radiology [facility] 1st [facility], [address] [place] [address] 07/19/2023 11:40 AM EDT Office Visit Family Practice [facility] 132 [facility] [place] [address] Johnnie Newby MD [address] [place] [address] 07/20/2023 11:30 AM EDT Office Visit Cardiology, [facility] 132 [facility] [place] [address] Warren Montoya, DO 132 [facility] [place] [address] 07/27/2023 11:00 AM EDT Office Visit Radiation Oncology, [address] [place] [address] Shawna Johnson MD [address] [place] [address] [place] [address] 07/28/2023 9:30 AM EDT Office Visit Orthopaedics [facility] 132 [facility] [place] [address] Zander Wilkins, DO 132 [facility] [place] [address] 08/30/2023 9:45 AM EDT Office Visit Orthopaedics [facility] 132 [facility] [place] [address] Zander Wilkins, DO [facility] [place] [address] 08/30/2023 10:20 AM EDT Office Visit Podiatry [facility] 132 [facility] [place] [address] Bettye Herrmann, DPM [address] [place] [address] [place] [address] 09/02/2023 11:00 AM EDT Laboratory Laboratory [address] [place] [phone] [place] [address] 09/09/2023 11:00 AM EDT Office [facility] 200 [facility] [place] [address] Lexie Palmer CRNP 400 [facility] [place] [address] 09/16/2023 9:00 AM EDT Office Visit Cardiology, [facility] [address] [place] [address] Deisy Aguirre CRNP [address] [place] [address] Scheduled Procedures Name Priority Associated Diagnoses Date/Ti me COLONOSCOPY FLEXIBLE PROXIMA L DIAGNOSTIC Recall History of colonic polyps Health Maintenance Due Date Last Done Comments COVID-19 Vaccine ( season) 2023 02/25/2023, 02/10/2022, 07/13/2020, Additional history exists DISCUSS TOBACCO CESSATION (REFER TO SMARTSET #0808) 05/01/2023 05/01/2022, 02/13/2022 Diabetic Eye Exam 07/09/2023 [...] Additional history exists CKD PHOS USE SMARTSET 66936 04/15/202403/20, 06/05/2022, 06/03/2021, Additional history exists Depression Screening 04/22/2024 04/22/2023 CKD HGB USE SMARTSET 83022 06/03/202406/03, 06/03/2023, 04/18/2023, Additional history exists COLONOSCOPY-EVERY [...] this encounter Medical Devices Implanted Type Area Mental Hygienist Device Identifier Shelf Expiration Date Model / Serial / Lot Lens Intraoc 24.0 - [id number] - [id number] Implanted:Qty: 1 on 06/01/2017 by Nikhil Bolton MD at [facility] Left: Eye BAUSCH & LOMB 07/17/2021 [id number] / [id number] / [id number] Lens Intraoc 24.0 - [id number] - [id number] Implanted:Qty: 1 on 06/08/2017 by Nikhil Bolton MD at OR [facility] Right: Eye BAUSCH & LOMB 07/17/2021 [id number] / [id number] / [id number] documented as of this encounter Advance Directives Documents on File Type Date Recorded Patient Pierce And Shave Press Operator Expl anation Advance Directives and Yu [...] and were consensually agreed upon. Care Teams Warehouse Puller Relationship Specialty Start Date End Date Johnnie Newby MD [address] [place] [address] PCP - General Family Medicine 09/13/20 documented as of this encounter
--- OUTSIDE RECORDS SUMMARY | 2023-07-12 18:45 | External Medical Summary | Summary of Care ---
Author Name Unknown Organization [facility] Address [address] [place] [address] Phone [phone] Care Team Providers Care Truck Driving Name Role Phone Johnnie Newby MD Primary Care Provider [phone] [phone] Reason for Visit * Reason Onset Date Comments Test Results 07/02/2023 Encounter Details Date Type Department Care Team (Late st Contact Info) Description 07/02/2023 Telephone Otolaryngology [facility] [address] [place] [address] Services, Scheduling [address] [place] [address] Test Results Allergies Active Allergy Reactions Criticality Noted Date Comments Acetaminophen 05/06/2005 headaches documented as of this encounter (statuses as of 07/02/2023) Medications Medication Sig Dispensed Refills Start Date End Date Status DAILY MULTIVITAMIN PO TABS with lycopene 0 Active BUSPAR 15 MG PO TABS Take by mouth. Uses as needed 0 Active clonazePAM (KLONOPIN) 0.5 MG Tablet Uses as needed 0 06/17/2016 Active ONETOUCH ULTRA BLUE STRPIndications:Type 2 diabetes mellitus with hemoglobin A1c goal of less than 7.0% ([facility]) TEST ONCE DAILY 100 Strip 5 03/02/2018 Active BiPAP every night at bedtime. 0 Active Vitamin B-12 1000 MCG Oral Tablet (Cyanocobalamin) Take 1 Tablet by mouth in the morning. 0 Active Isosorbide Mononitrate ER 60 MG Oral Tablet Extended Release 24 Hour (Imdur)Indications:C oronary artery disease involving [place] coronary artery without angina pectoris TAKE ONE [...] s:COPD, group D, by GOLD 2017 classification ([facility]) Take 1 Tablet by mouth in the morning. 30 Tablet 2 05/24/2023 4 Active Tiotropium [place] Monohydrate 18 MCG Inhalation Capsule (Spiriva) Inhale [...] as of this encounter (statuses as of 07/02/2023) Active Problems Problem Noted Date Diagnosed Date [...] tis 01/05/2014 Coronary artery disease invo lving [place] coronary artery of [place] heart without angina pectoris 11/27/2013 Tobacco abuse 11/27/2013 HTN, goal below 130/80 03/06/2009 Overview: Modified per HTN protocol #16. documented as of this encounter (statuses as of 07/02/2023) Resolved Problems Problem Noted Date Diagnosed Date [...] as of this encounter (statuses as of 07/02/2023) Immunizations Name Administration Dates Next Due COVID-19 mRNA, LNP-s, No Pre serve, 2-Dose Series ([employer]) 02/25/2023,02/10/2022,07/13/2020,06/17 Pneumococcal Conjugate Vacc, 13 Valent (Prevnar) [...] (15 years old or older) No 04/15/20 23 Cognitive Status Response Date of Assessm ent Because of a physical, menta l, or emotional condition, do you have serious difficulty concentrating, remembering, or making decisions? (5 years old or older) No 04/15/2023 documented as of this encounter Miscellaneous Notes * Telephone Encounter - Floresita Avendaño LPN - 07/02/2023 9:24 AM EDT Spoke to patient- advised results were relayed to him on 06/15/2023. I re read the results to him. Then advised per Dr. Newby there was no intervention needed. He verbalized understanding. * Telephone Encounter - Treviño Ina Sanjuana - Mere Ob/Or, YISSEL - 07/02/2023 9:13 AM EDT Walter called still waiting for results of mri done 2. Thank you ina documented in this encounter Plan of Treatment Upcoming Encounters Date Type Department Care Team (Late st Contact Info) Description 07/08/2023 10:00 AM EDT Imaging Radiology [facility] 1st [facility] [address] [place] [address] 07/19/2023 11:40 AM EDT Office Visit Family Practice [facility] [address] [place] [address] Johnnie Newby MD [address] [place] [address] 07/20/2023 11:30 AM EDT Office Visit Cardiology, [facility] [address] [place] [address] Warren Montoya DO [address] [place] [address] 07/27/2023 11:00 AM EDT Office Visit Radiation Oncology, [address] [place] [address] Shawna Johnson MD [address] [place] [address] [place] [address] 07/28/2023 9:30 AM EDT Office Visit Orthopaedics [facility] [address] [facility] [place] [address] Zander Wilkins, DO [address] [facility] [place] [address] 08/30/2023 9:45 AM EDT Office Visit Orthopaedics [facility] 132 [facility] [place] [address] Zander Wilkins, DO [address] [facility] [place] [address] 08/30/2023 10:20 AM EDT Office Visit Podiatry [facility] 132 [facility] [place], [place] [address] Bettye Herrmann DPM 400 [facility] [place] [address] 09/02/2023 11:00 AM EDT Laboratory Laboratory [address] [place] [phone] [place] [address] 09/09/2023 11:00 AM EDT Office Visit Hematology/Oncology [facility] [phone] Lexie Palmer CRNP 400 [facility] [place] [address] 09/16/2023 9:00 AM EDT Office Visit Cardiology, [facility] 132 [facility] [place] [address] Deisy Aguirre CRNP 132 [facility] [place] [address] Scheduled Procedures Name Priority Associated Diagnoses Date/Ti me COLONOSCOPY FLEXIBLE PROXIMA L DIAGNOSTIC Recall History of colonic polyps Health Maintenance Due Date Last Done Comments COVID-19 Vaccine ( season) 2023 02/25/2023, 02/10/2022, 07/13/2020, Additional history exists DISCUSS TOBACCO CESSATION (REFER TO SMARTSET #3938) 05/01/2023 05/01/2022, 02/13/2022 Diabetic Eye Exam 07/09/2023 [...] Additional history exists CKD PHOS USE SMARTSET 55772 04/15/202403/20, 06/05/2022, 06/03/2021, Additional history exists Depression Screening 04/22/2024 04/22/2023 CKD HGB USE SMARTSET 08112 06/03/202406/03, 06/03/2023, 04/18/2023, Additional history exists COLONOSCOPY-EVERY [...] this encounter Medical Devices Implanted Type Area Inbound Call Center Representative Device Identifier Shelf Expiration Date Model / Serial / Lot Lens Intraoc 24.0 - [id number] - [id number] Implanted:Qty: 1 on 06/01/2017 by Nikhil Bolton MD at OR [facility] Left: Eye BAUSCH & LOMB 07/17/2021 [id number] / [id number] / [id number] Lens Intraoc 24.0 - [id number] - [id number] Implanted:Qty: 1 on 06/08/2017 by Nikhil Bolton MD at OR [facility] Right: Eye BAUSCH & LOMB 07/17/2021 [id number] / [id number] / [id number] documented as of this encounter Advance Directives Documents on File Type Date Recorded Patient Adult School Counselor Expl anation Advance Directives and Melissain g [...] and were consensually agreed upon. Care Teams Truck Driving Relationship Specialty Start Date End Date Johnnie Newby MD [address] [place] [address] PCP - General Family Medicine 09/13/20 documented as of this encounter
--- OUTSIDE RECORDS SUMMARY | 2023-07-12 18:45 | External Medical Summary | Summary of Care ---
Author Name Unknown Organization [facility] Address [address] [place] [address] Phone [phone] Care Team Providers Care Rescue Worker Name Role Phone Johnnie Newby MD Primary Care Provider [phone] Encounter Details Date Type Department Care Team [...] 24 Hour (Imdur)Indications:C oronary artery disease involving [place] coronary artery without angina pectoris TAKE ONE [...] classification ([facility]) Take 1 Tablet by mouth in the morning. 30 Tablet 2 05/24/2023 4 Active Tiotropium [place] Monohydrate 18 MCG Inhalation Capsule (Spiriva) Inhale [...] Classification Dyslipidemia 02/07/2019 Peripheral arterial disease 12/28/2018 YISESL treated with BiPAP 01/03/2018 Overview: Wears BiPAP at night Type 2 diabetes mellitus wit h hemoglobin A1c goal of less than 8.0% 10/23/2014 Overview: ICD-10 update of inactive term PTSD (post-traumatic stress disorder) 01/05/2014 Gastroesophageal reflux disease without esophagi tis 01/05/2014 Coronary artery disease invo lving [place] coronary artery of [place] heart without angina pectoris 11/27/2013 Tobacco abuse [...] mRNA, LNP-s, No Pre serve, 2-Dose Series ([employer]) 02/25/2023,02/10/2022,07/13/2020,06/17 Pneumococcal Conjugate Vacc, 13 Valent (Prevnar) [...] Description 07/08/2023 10:00 AM EDT Imaging Radiology [facility] 1st [facility], [address] [place] [address] 07/19/2023 11:40 AM EDT Office Visit Family Practice [facility] 132 [facility] [place] [address] Johnnie Newby MD [address] [place] [address] 07/20/2023 11:30 AM EDT Office Visit Cardiology, [facility] 132 [facility] [place] [address] Warren Montoya, DO 132 [facility] [place] [address] 07/27/2023 11:00 AM EDT Office Visit Radiation Oncology, [address] [place] [address] Shawna Johnson MD [address] [place] [address] [place] [address] 07/28/2023 9:30 AM EDT Office Visit Orthopaedics [facility] 132 [facility] [place] [address] Zander Wilkins, DO 132 [facility] [place] [address] 08/30/2023 9:45 AM EDT Office Visit Orthopaedics [facility] 132 [facility] [place] [address] Zander Wilkins, DO [facility] [place] [address] 08/30/2023 10:20 AM EDT Office Visit Podiatry [facility] 132 [facility] [place] [address] Bettye Herrmann, DPM [address] [place] [address] [place] [address] 09/02/2023 11:00 AM EDT Laboratory Laboratory [address] [place] [phone] [place] [address] 09/09/2023 11:00 AM EDT Office Visit Hematology/On[facility] 200 [place] [address] Lexie Palmer CRNP 400 [facility] [place] [address] 09/16/2023 9:00 AM EDT Office Visit Cardiology, [facility] [address] [place] [address] Deisy Aguirre CRNP [address] [place] [address] Scheduled Procedures Name Priority Associated Diagnoses Date/Ti me COLONOSCOPY FLEXIBLE PROXIMA L DIAGNOSTIC Recall History of colonic polyps Health Maintenance Due Date Last Done Comments COVID-19 Vaccine ( season) 2023 02/25/2023, 02/10/2022, 07/13/2020, Additional history exists DISCUSS TOBACCO CESSATION (REFER TO SMARTSET #7348) 05/01/2023 05/01/2022, 02/13/2022 Diabetic Eye Exam 07/09/2023 [...] Additional history exists CKD PHOS USE SMARTSET 11783 04/15/202403/20, 06/05/2022, 06/03/2021, Additional history exists Depression Screening 04/22/2024 04/22/2023 CKD HGB USE SMARTSET 54856 06/03/202406/03, 06/03/2023, 04/18/2023, Additional history exists COLONOSCOPY-EVERY [...] this encounter Medical Devices Implanted Type Area Child Support Specialist Device Identifier Shelf Expiration Date Model / Serial / Lot Lens Intraoc 24.0 - [id number] - [id number] Implanted:Qty: 1 on 06/01/2017 by Nikhil Bolton MD at [facility] Left: Eye BAUSCH [employer] LOMB 07/17/2021 [id number] / [id number] / [id number] Lens Intraoc 24.0 - [id number] - [id number] Implanted:Qty: 1 on 06/08/2017 by Nikhil Bolton MD at OR [facility] Right: Eye BAUSCH & LOMB 07/17/2021 [id number] / [id number] / [id number] documented as of this encounter Advance Directives Documents on File Type Date Recorded Patient Knocker Out Expl anation Advance Directives and Yu fine [...] and were consensually agreed upon. Care Teams Rescue Worker Relationship Specialty Start Date End Date Johnnie Newby MD [address] [place] [address] PCP - General Family Medicine 09/13/20 documented as of this encounter
--- OUTSIDE RECORDS SUMMARY | 2023-07-12 18:45 | External Medical Summary | Summary of Care ---
Author Name Unknown Organization [facility] Address [address] [place] [address] Phone [phone] Care Team Providers Care Policy Director Name Role Phone Johnnie Newby MD Primary Care Provider [phone] Encounter Details Date Type Department Care Team (Late st Contact Info) Description 07/03/2023 Patient Reported Data Patient Survey Ortho OBERD Allergies Active Allergy Reactions Criticality Noted Date Comments Acetaminophen 05/06/2005 headaches documented as of this encounter (statuses as of 07/03/2023) Medications Medication Sig Dispensed Refills Start Date [...] 24 Hour (Imdur)Indications:C oronary artery disease involving [place] coronary artery without angina pectoris TAKE ONE [...] by GOLD 2017 classification ([facility]) Take 1 Tablet by mouth in the morning. 30 Tablet 2 05/24/2023 4 Active Tiotropium [place] Monohydrate 18 MCG Inhalation Capsule (Spiriva) Inhale [...] as of this encounter (statuses as of 07/03/2023) Active Problems Problem Noted Date Diagnosed Date [...] tis 01/05/2014 Coronary artery disease invo lving [place] coronary artery of [place] heart without angina pectoris 11/27/2013 Tobacco abuse 11/27/2013 HTN, goal below 130/80 03/06/2009 Overview: Modified per HTN protocol #16. documented as of this encounter (statuses as of 07/03/2023) Resolved Problems Problem Noted Date Diagnosed Date [...] as of this encounter (statuses as of 07/03/2023) Immunizations Name Administration Dates Next Due COVID-19 mRNA, LNP-s, No Pre serve, 2-Dose Series ([employer]) 02/25/2023,02/10/2022,07/13/2020,06/17 Pneumococcal Conjugate Vacc, 13 Valent (Prevnar) [...] Description 07/08/2023 10:00 AM EDT Imaging Radiology [facility] 1st [facility], [address] [place] [address] 07/19/2023 11:40 AM EDT Office Visit Family Practice [facility] 132 [facility] [place] [address] Johnnie Newby MD [address] [place] [address] 07/20/2023 11:30 AM EDT Office Visit Cardiology, [facility] 132 [facility] [place] [address] Warren Montoya, DO 132 [facility] [place] [address] 07/27/2023 11:00 AM EDT Office Visit Radiation Oncology, [address] [place] [address] Shawna Johnson MD [address] [place] [address] [place] [address] 07/28/2023 9:30 AM EDT Office Visit Orthopaedics [facility] 132 [facility] [place] [address] Zander Wilkins, DO 132 [facility] [place] [address] 08/30/2023 9:45 AM EDT Office Visit Orthopaedics [facility] 132 [facility] [place] [address] Zander Wilkins, DO [facility] [place] [address] 08/30/2023 10:20 AM EDT Office Visit Podiatry [facility] 132 [facility] [place] [address] Bettye Herrmann, DPM [address] [place] [address] [place] [address] 09/02/2023 11:00 AM EDT Laboratory Laboratory [address] [place] [phone] [place] [address] 09/09/2023 11:00 AM EDT Office Visit Hematology/On[facility] [address] [facility] [place] [address] Lexie Palmer CRNP 400 [facility] [place] [address] 09/16/2023 9:00 AM EDT Office Visit Cardiology, [facility] [address] [place] [address] Deisy Aguirre CRNP [address] [address] Scheduled Procedures Name Priority Associated Diagnoses Date/Ti me COLONOSCOPY FLEXIBLE PROXIMA L DIAGNOSTIC Recall History of colonic polyps Health Maintenance Due Date Last Done Comments COVID-19 Vaccine ( season) 2023 02/25/2023, 02/10/2022, 07/13/2020, Additional history exists DISCUSS TOBACCO CESSATION (REFER TO SMARTSET #7205) 05/01/2023 05/01/2022, 02/13/2022 Diabetic Eye Exam 07/09/2023 [...] Additional history exists CKD PHOS USE SMARTSET 22719 04/15/202403/20, 06/05/2022, 06/03/2021, Additional history exists Depression Screening 04/22/2024 04/22/2023 CKD HGB USE SMARTSET 98793 06/03/202406/03, 06/03/2023, 04/18/2023, Additional history exists COLONOSCOPY-EVERY [...] this encounter Medical Devices Implanted Type Area Professor Of Industrial Technology Device Identifier Shelf Expiration Date Model / Serial / Lot Lens Intraoc 24.0 - [id number] - [id number] Implanted:Qty: 1 on 06/01/2017 by Nikhil Bolton MD at [facility] Left: Eye BAUSCH [employer] LOMB 07/17/2021 [id number] / [id number] / [id number] Lens Intraoc 24.0 - [id number] - [id number] Implanted:Qty: 1 on 06/08/2017 by Nikhil Bolton MD at OR [facility] Right: Eye BAUSCH & LOMB 07/17/2021 [id number] / [id number] / [id number] documented as of this encounter Advance Directives Documents on File Type Date Recorded Patient Game Show Host Expl anation Advance Directives and Yu fine [...] and were consensually agreed upon. Care Teams Policy Director Relationship Specialty Start Date End Date Johnnie Newby MD [address] [place] [address] PCP - General Family Medicine 09/13/20 documented as of this encounter
--- OUTSIDE RECORDS SUMMARY | 2023-07-12 18:45 | External Medical Summary | Summary of Care ---
Author Name Unknown Organization [facility] Address [address] [place] [address] Phone [phone] Care Team Providers Care Power Plant Installer Name Role Phone Johnnie Newby MD Primary Care Provider [phone] Reason for Visit * Reason Onset Date Comments Test Results 07/02/2023 Encounter Details Date Type Department Care Team (Late st Contact Info) Description 07/02/2023 Telephone Otolaryngology [facility] [address] [place] [address] Services, Scheduling [address] [place] [address] Test Results Allergies Active Allergy Reactions Criticality [...] goal of less than 7.0% ([facility]) TEST ONCE DAILY 100 Strip 5 03/02/2018 Active BiPAP every night at bedtime. 0 Active Vitamin B-12 1000 MCG Oral Tablet (Cyanocobalamin) Take 1 Tablet by mouth in the morning. 0 Active Isosorbide Mononitrate ER 60 MG Oral Tablet Extended Release 24 Hour (Imdur)Indications:C oronary artery disease involving [place] coronary artery without angina pectoris TAKE ONE [...] by GOLD 2017 classification ([facility]) Take 1 Tablet by mouth in the morning. 30 Tablet 2 05/24/2023 4 Active Tiotropium [place] Monohydrate 18 MCG Inhalation Capsule (Spiriva) Inhale [...] Coronary artery disease invo lving [place] coronary artery of [place] heart without angina pectoris 11/27/2013 Tobacco abuse [...] mRNA, LNP-s, No Pre serve, 2-Dose Series ([employer]) 02/25/2023,02/10/2022,07/13/2020,06/17 Pneumococcal Conjugate Vacc, 13 Valent (Prevnar) [...] Description 07/08/2023 10:00 AM EDT Imaging Radiology [facility] 1st [facility] [address] [place] [address] 07/19/2023 11:40 AM EDT Office Visit Family Practice [facility] [address] [place] [address] Johnnie Newby MD [address] [place] [address] 07/20/2023 11:30 AM EDT Office Visit Cardiology, [facility] [address] [place] [address] Warren Montoya DO [address] [place] [address] 07/27/2023 11:00 AM EDT Office Visit Radiation Oncology, [address] [place] [address] Shawna Johnson MD [address] [place] [address] [place] [address] 07/28/2023 9:30 AM EDT Office Visit Orthopaedics [facility] [address] [facility] [place] [address] Zander Wilkins, DO [address] [facility] [place] [address] 08/30/2023 9:45 AM EDT Office Visit Orthopaedics [facility] 132 [facility] [place] [address] Zander Wilkins, DO [address] [facility] [place] [address] 08/30/2023 10:20 AM EDT Office Visit Podiatry [facility] 132 [facility] [place], [place] [address] Bettye Herrmann DPM 400 [facility] [place] [address] 09/02/2023 11:00 AM EDT Laboratory Laboratory [address] [place] [phone] [place] [address] 09/09/2023 11:00 AM EDT Office Visit Hematology/Oncology [facility] [phone] Lexie Palmer CRNP 400 [facility] [place] [address] 09/16/2023 9:00 AM EDT Office Visit Cardiology, [facility] 132 [facility] [place] [address] Deisy Aguirre CRNP 132 [facility] [place] [address] Scheduled Procedures Name Priority Associated Diagnoses Date/Ti me COLONOSCOPY FLEXIBLE PROXIMA L DIAGNOSTIC Recall History of colonic polyps Health Maintenance Due Date Last Done Comments COVID-19 Vaccine ( season) 2023 02/25/2023, 02/10/2022, 07/13/2020, Additional history exists DISCUSS TOBACCO CESSATION (REFER TO SMARTSET #6181) 05/01/2023 05/01/2022, 02/13/2022 Diabetic Eye Exam 07/09/2023 [...] Additional history exists CKD PHOS USE SMARTSET 99042 04/15/202403/20, 06/05/2022, 06/03/2021, Additional history exists Depression Screening 04/22/2024 04/22/2023 CKD HGB USE SMARTSET 63062 06/03/202406/03, 06/03/2023, 04/18/2023, Additional history exists COLONOSCOPY-EVERY [...] encounter Medical Devices Implanted Type Area Director Career Device Identifier Shelf Expiration Date Model / Serial / Lot Lens Intraoc 24.0 - [id number] - [id number] Implanted:Qty: 1 on 06/01/2017 by Nikhil Bolton MD at OR [facility] Left: Eye BAUSCH & LOMB 07/17/2021 [id number] / [id number] / [id number] Lens Intraoc 24.0 - [id number] - [id number] Implanted:Qty: 1 on 06/08/2017 by Nikhil Bolton MD at OR [facility] Right: Eye BAUSCH & LOMB 07/17/2021 [id number] / [id number] / [id number] documented as of this encounter Advance Directives Documents on File Type Date Recorded Patient Meat Washer Expl anation Advance Directives and Melissain g [...] and were consensually agreed upon. Care Teams Power Plant Installer Relationship Specialty Start Date End Date Johnnie Newby MD [address] [place] [address] PCP - General Family Medicine 09/13/20 documented as of this encounter
--- OUTSIDE RECORDS SUMMARY | 2023-07-12 18:45 | External Medical Summary | Summary of Care ---
Author Name Unknown Organization [facility] Address [address] [place] [address] Phone [phone] Care Team Providers Care Commercial Loan Processor Name Role Phone Johnnie Newby MD Primary Care Provider [phone] [phone] Reason for Visit * Reason Onset Date Comments Health Maintenance 06/28/2023 Encounter Details Date Type Department Care Team (Late st Contact Info) Description 06/28/2023 Telephone Family Practice [facility] [address] [facility] [place] [address] Johnnie Newby MD 132 [facility] [place] [id number] Health Maintenance Allergies Active Allergy Reactions Criticality Noted Date [...] goal of less than 7.0% ([facility]) TEST ONCE DAILY 100 Strip 5 03/02/2018 Active BiPAP every night at bedtime. 0 Active Vitamin B-12 1000 MCG Oral Tablet (Cyanocobalamin) Take 1 Tablet by mouth in the morning. 0 Active Isosorbide Mononitrate ER 60 MG Oral Tablet Extended Release 24 Hour (Imdur)Indications:C oronary artery disease involving [place] coronary artery without angina pectoris TAKE ONE [...] s:COPD, group D, by GOLD 2017 classification ([facility]) Take 1 Tablet by mouth in the morning. 30 Tablet 2 05/24/2023 4 Active Tiotropium [place] Monohydrate 18 MCG Inhalation Capsule (Spiriva) Inhale [...] tis 01/05/2014 Coronary artery disease invo lving [place] coronary artery of [place] heart without angina pectoris 11/27/2013 Tobacco abuse [...] mRNA, LNP-s, No Pre serve, 2-Dose Series (GuideIT) 02/25/2023,02/10/2022,07/13/2020,06/17 Pneumococcal Conjugate Vacc, 13 Valent (Prevnar) [...] Miscellaneous Notes * Telephone Encounter - Janine Ramirez LPN - 06/28/2023 8:12 AM EDT Care Gaps Comprehensive Care Outreach Last Office/Telemedicine Visit: 04/23/2023 (in office), Visit date not found (telemedicine) Next Office Visit: 07/19/2023 Hemoglobin AIC Results: Lab Results Component Value Date/Time HEMOGLOBIN A1C - [facility] 6.0 (H) 04/16/2023 05:50 AM HEMOGLOBIN A1C - [facility] 6.0 (H) 01/15/2023 11:14 AM HEMOGLOBIN A1C - [facility] 6.2 (H) 06/05/2022 12:49 PM HEMOGLOBIN A1C - [facility] 6.1 (H) 11/30/2019 09:17 AM HEMOGLOBIN A1C - [facility] 6.2 (H) 05/22/2019 10:28 AM HEMOGLOBIN A1C - [facility] 6.2 (H) 01/16/2019 10:16 AM BP Readings from Last 1 Encounters: 06/11/23 126/61 Reviewed Health Maintenance below: Health Maintenance Topic Date Due COVID-19 Vaccine ( season) 2023 DISCUSS TOBACCO CESSATION (REFER TO SMARTSET #3291) 05/01/2023 Diabetic Eye Exam 07/09/2023 Diabetic Foot Exam 09/10/2023 HbA1c 10/16/2023 GFR 10/17/2023 Eye nittany my g Care Gap Outreach Action Taken: Udacityhart message sent documented in this encounter Plan of Treatment Upcoming Encounters Date Type Department Care Team (Late st Contact Info) Description 06/28/2023 10:30 AM EDT Office Visit Orthopaedics [facility] [address] [place] [address] Zander Wilkins, DO [address] [place] [address] 07/08/2023 10:00 AM EDT Imaging Radiology [address] 132 [facility] [place] [address] 07/19/2023 11:40 AM EDT Office Visit Family Practice [facility] 132 [facility] [place] [address] Johnnie Newby MD 132 [facility] [place] [address] 07/27/2023 11:00 AM EDT Office Visit Radiation Oncology, [address] [place] [address] Shawna Johnson MD [address] [place] [address] [place] [address] 07/30/2023 10:30 AM EDT Office Visit Cardiology, [facility] 132 [facility] [place] [address] Warren Montoya DO 132 [facility] [place] [address] 08/30/2023 10:20 AM EDT Office Visit Podiatry [facility] 132 [facility] [place] [address] [facility]PM [facility] [address] 09/02/2023 11:00 AM EDT Laboratory Laboratory [address] [place] [phone] [address] [place] [address] 09/09/2023 11:00 AM EDT Office Visit Hematology/Oncology [facility] [address] [place] [phone] Lexie Palmer CRNP 400 [facility] [place] [address] 09/16/2023 9:00 AM EDT Office Visit Cardiology, [facility] [address] [place] [address] Deisy Aguirre CRNP [address] [place] [address] Scheduled Procedures Name Priority Associated Diagnoses Date/Ti [...] Additional history exists CKD PHOS USE SMARTSET 75563 04/15/202403/20, 06/05/2022, 06/03/2021, Additional history exists Depression Screening 04/22/2024 04/22/2023 CKD HGB USE SMARTSET 44039 06/03/202406/03, 06/03/2023, 04/18/2023, Additional history exists COLONOSCOPY-EVERY [...] this encounter Medical Devices Implanted Type Area Federal Agent Device Identifier Shelf Expiration Date Model / Serial / Lot Lens Intraoc 24.0 - [id number] - [id number] Implanted:Qty: 1 on 06/01/2017 by Nikhil Bolton MD at OR [facility] Left: Eye BAUSCH & LOMB 07/17/2021 [id number] / [id number] / [id number] Lens Intraoc 24.0 - [id number] - [id number] Implanted:Qty: 1 on 06/08/2017 by Nikhil Bolton MD at OR [facility] Right: Eye BAUSCH & LOMB 07/17/2021 [id number] / [id number] / [id number] documented as of this encounter Advance Directives Documents on File Type Date Recorded Patient Merchandise Handler Expl anation Advance Directives and Yu Watkins [...] were consensually agreed upon. Care Teams Commercial Loan Processor Relationship Specialty Start Date End Date Johnnie Newby MD [address] [place] [address] PCP - General Family Medicine 09/13/20 documented as of this encounter
--- OUTSIDE RECORDS SUMMARY | 2023-07-12 18:45 | External Medical Summary | Summary of Care ---
Author Name Unknown Organization [facility] Address [address] [place] [address] Phone [phone] Care Team Providers Care Wrecking Crane Engine Operator Name Role Phone Johnnie Newby MD Primary Care Provider [phone] [phone] Encounter Details Date Type Department Care Team [...] goal of less than 7.0% ([facility]) TEST ONCE DAILY 100 Strip 5 03/02/2018 Active BiPAP every night at bedtime. 0 Active Vitamin B-12 1000 MCG Oral Tablet (Cyanocobalamin) Take 1 Tablet by mouth in the morning. 0 Active Isosorbide Mononitrate ER 60 MG Oral Tablet Extended Release 24 Hour (Imdur)Indications:C oronary artery disease involving [place] coronary artery without angina pectoris TAKE ONE [...] D, by GOLD 2017 classification ([facility]) Take 1 Tablet by mouth in the morning. 30 Tablet 2 05/24/2023 4 Active Tiotropium [place] Monohydrate 18 MCG Inhalation Capsule (Spiriva) Inhale [...] tis 01/05/2014 Coronary artery disease invo lving [place] coronary artery of [place] heart without angina pectoris 11/27/2013 Tobacco abuse [...] mRNA, LNP-s, No Pre serve, 2-Dose Series (Pixowl) 02/25/2023,02/10/2022,07/13/2020,06/17 Pneumococcal Conjugate Vacc, 13 Valent (Prevnar) [...] 07/08/2023 10:00 AM EDT Imaging Radiology [facility], [address] [place] [address] 07/19/2023 11:40 AM EDT Office Visit Family Practice [facility] 132 [facility] [place] [address] Johnnie Newby MD [address] [place] [address] 07/20/2023 11:30 AM EDT Office Visit Cardiology, [facility] 132 [facility] [place] [address] Warren Montoya, DO 132 [facility] [place] [address] 07/27/2023 11:00 AM EDT Office Visit Radiation Oncology, [address] [place] [address] Shawna Johnson MD [address] [place] [address] [place] [address] 07/28/2023 9:30 AM EDT Office Visit Orthopaedics [facility] 132 [facility] [place] [address] Zander Wilkins, DO 132 [facility] [place] [address] 08/30/2023 9:45 AM EDT Office Visit Orthopaedics [facility] 132 [facility] [place] [address] Zander Wilkins, DO [facility] [place] [address] 08/30/2023 10:20 AM EDT Office Visit Podiatry [facility] 132 [facility] [place] [address] Bettye Herrmann, DPM [address] [place] [address] [place] [address] 09/02/2023 11:00 AM EDT Laboratory Laboratory [address] [place] [phone] [place] [address] 09/09/2023 11:00 AM EDT Office Visit Hematology/Oncology [facility] 200 [facility] [place] [address] Lexie Palmer CRNP 400 [facility] [place] [address] 09/16/2023 9:00 AM EDT Office Visit Cardiology, [facility] [address] [place] [address] Deisy Aguirre CRNP [address] [place] [address] Scheduled Procedures Name Priority Associated Diagnoses Date/Ti me COLONOSCOPY FLEXIBLE PROXIMA L DIAGNOSTIC Recall History of colonic polyps Health Maintenance Due Date Last Done Comments COVID-19 Vaccine ( season) 2023 02/25/2023, 02/10/2022, 07/13/2020, Additional history exists DISCUSS TOBACCO CESSATION (REFER TO SMARTSET #5040) 05/01/2023 05/01/2022, 02/13/2022 Diabetic Eye Exam 07/09/2023 [...] Additional history exists CKD PHOS USE SMARTSET 17302 04/15/202403/20, 06/05/2022, 06/03/2021, Additional history exists Depression Screening 04/22/2024 04/22/2023 CKD HGB USE SMARTSET 51636 06/03/202406/03, 06/03/2023, 04/18/2023, Additional history exists COLONOSCOPY-EVERY [...] this encounter Medical Devices Implanted Type Area Strategic Sourcing Specialist Device Identifier Shelf Expiration Date Model / Serial / Lot Lens Intraoc 24.0 - [id number] - [id number] Implanted:Qty: 1 on 06/01/2017 by Nikhil Bolton MD at [facility] Left: Eye BAUSCH [employer] LOMB 07/17/2021 [id number] / [id number] / [id number] Lens Intraoc 24.0 - [id number] - [id number] Implanted:Qty: 1 on 06/08/2017 by Nikhil Bolton MD at OR [facility] Right: Eye BAUSCH & LOMB 07/17/2021 [id number] / [id number] / [id number] documented as of this encounter Advance Directives Documents on File Type Date Recorded Patient Retail Manager In Training Expl anation Advance Directives and Yu fine [...] and were consensually agreed upon. Care Teams Wrecking Crane Engine Operator Relationship Specialty Start Date End Date Johnnie Newby MD [address] [place] [address] PCP - General Family Medicine 09/13/20 documented as of this encounter
--- OUTSIDE RECORDS SUMMARY | 2023-07-12 18:46 | External Medical Summary | Summary of Care ---
Author Name Unknown Organization [facility] Address [address] [place] [address] Phone [phone] Care Team Providers Care Asset Protection Professional Name Role Phone Johnnie Newby MD Primary Care Provider [phone] [phone] Encounter Details Date Type Department Care Team (Late st Contact Info) Description 06/08/2023 Population Health External Data Unspecified Department Allergies Active Allergy Reactions Criticality Noted Date Comments Acetaminophen 05/06/2005 headaches documented as of this encounter (statuses as of 06/09/2023) Medications Medication Sig Dispensed Refills Start Date End Date Status DAILY MULTIVITAMIN PO TABS with lycopene 0 Active BUSPAR 15 MG PO TABS Take by mouth. Uses as needed 0 Active clonazePAM (KLONOPIN) 0.5 MG Tablet Uses as needed 0 06/17/2016 Active ONETOUCH ULTRA BLUE STRPIndications:Type 2 diabetes mellitus with hemoglobin A1c goal of less than 7.0% ([facility]) TEST ONCE DAILY 100 Strip [...] LABS* 90 Capsule 1 03/21/2023 4 Active Clopidogrel Bisulfate 75 MG Oral Tablet (pLAVix) Take 1 Tablet by mouth in the morning. 30 Tablet 11 04/19/2023 Active Nitroglycerin 0.4 MG Sublingual Tablet Sublingual [...] classification ([facility]) Take 1 Tablet by mouth in the morning. 30 Tablet 2 05/24/2023 4 Active Tiotropium [place] Monohydrate 18 MCG Inhalation Capsule (Spiriva) Inhale [...] the morning. 60 Tablet 11 06/03/2023 Active Hospital, Clinic, or Other Facility Administered Medication Ordered Dose Route Frequency Start Date End Date Status albuterol sulfate (PROVENTIL) (2.5 MG/3ML) 0.083% inhalation solution 2.5 mgIndications:COPD, severe (HCC) 2.5 mg NEBULIZER Q4H PRN 07/08/2018 Active documented as of this encounter (statuses as of 06/09/2023) Active Problems Problem Noted Date Diagnosed Date [...] as of this encounter (statuses as of 06/09/2023) Resolved Problems Problem Noted Date Diagnosed Date [...] lung 08/03/2018 09/11/2020 Pulmonary emphysema 08/02/2018 05/07/19 Type 2 diabetes mellitus wit h diabetic [...] as of this encounter (statuses as of 06/09/2023) Immunizations Name Administration Dates Next Due COVID-19 [...] Care Team (Late st Contact Info) Description 06/11/2023 10:00 AM EST Office Visit Hematology/Oncology [facility] [place] [address] [place], [place] [address] Lexie Palmer CRNP [facility] [place] [address] 06/24/2023 10:15 AM EST Imaging Radiology [address] [place] [address] 06/28/2023 10:30 AM EDT Office Visit Orthopaedics [facility] [address] [place] [address] Zander Wilkins DO [address] [place] [address] 07/08/2023 10:00 AM EDT Imaging Radiology [address] 132 [facility] [place] [address] 07/13/2023 11:00 AM EDT Office Visit Radiation Oncology, [address] [place] [address] Shawna Johnson MD [address] [place] [address] [place] [address] 07/19/2023 11:40 AM EDT Office Visit Family Practice [facility] 132 [facility] [place] [address] Johnnie Newby MD 132 [facility] [place] [address] 08/30/2023 10:20 AM EDT Office Visit Podiatry [facility] 132 [facility] [place] [address] Bettye Herrmann DPM 400 [facility] [place] [address] 09/16/2023 9:00 AM EDT Office Visit Cardiology, [facility] 132 [facility] [place] [address] Deisy Aguirre CRNP [address] [place] [address] Scheduled Procedures Name Priority Associated Diagnoses Date/Ti [...] Additional history exists CKD PHOS USE SMARTSET 65258 04/15/202403/20, 06/05/2022, 06/03/2021, Additional history exists Depression Screening 04/22/2024 04/22/2023 CKD HGB USE SMARTSET 16600 06/03/202406/03, 06/03/2023, 04/18/2023, Additional history exists COLONOSCOPY-EVERY [...] this encounter Medical Devices Implanted Type Area Hot Air Furnace Installer And Repairer Device Identifier Shelf Expiration Date Model / Serial / Lot Lens Intraoc 24.0 - [id number] - [id number] Implanted:Qty: 1 on 06/01/2017 by Nikhil Bolton MD at OR [facility] Left: Eye BAUSCH [employer] LOMB 07/17/2021 [id number] / [id number] / [id number] Lens Intraoc 24.0 - [id number] - [id number] Implanted:Qty: 1 on 06/08/2017 by Nikhil Bolton MD at OR [facility] Right: Eye BAUSCH & LOMB 07/17/2021 [id number] / [id number] / [id number] documented as of this encounter Advance Directives Documents on File Type Date Recorded Patient Supervisor Forming Department Expl anation Advance Directives and Yu Watkins [...] and were consensually agreed upon. Care Teams Asset Protection Professional Relationship Specialty Start Date End Date Johnnie Newby MD 132 [place] [address] PCP - General Family Medicine 09/13/20 documented as of this encounter
--- OUTSIDE RECORDS SUMMARY | 2023-07-12 18:46 | External Medical Summary | Summary of Care ---
Author Name Unknown Organization [facility] Address [address] [place] [address] Phone [phone] Care Team Providers Care Supervisor Channel Process Name Role Phone Johnnie Newby MD Primary Care Provider [phone] [phone] Encounter Details Date Type Department Care Team (Late st Contact Info) Description 06/03/2023 Telephone Family Practice [facility] [address] [facility] [place] [address] Johnnie Newby MD [address] [facility] [place] [address] Allergies Active Allergy Reactions Criticality Noted Date Comments Acetaminophen 05/06/2005 headaches documented as of this encounter (statuses as of 06/03/2023) Medications Medication Sig Dispensed Refills Start Date End Date Status DAILY MULTIVITAMIN PO TABS with lycopene 0 Active BUSPAR 15 MG PO TABS Take by mouth. Uses as needed 0 Active clonazePAM (KLONOPIN) 0.5 MG Tablet Uses as needed 0 06/17/2016 Active ONETOUCH ULTRA BLUE STRPIndications:Typ e 2 diabetes mellitus with hemoglobin A1c goal of less than 7.0% ([facility]) TEST ONCE DAILY 100 Strip 5 03/02/2018 Active BiPAP every night at bedtime. 0 Active Vitamin B-12 1000 MCG Oral Tablet (Cyanocobalamin) Take 1 Tablet by mouth in the morning. 0 Active Isosorbide Mononitrate ER 60 MG Oral Tablet Extended Release 24 Hour (Imdur)Indications: Coronary artery disease involving [place] coronary artery without angina pectoris TAKE ONE [...] 250-50 MCG/ACT Inhalation Aerosol Powder Breath Activated (Fluticasone-Salmet gume) Inhale 1 Puff by mouth in the morning and 1 Puff before bedtime. 60 Each 2 05/24/2023 4 Active Roflumilast 500 MCG Oral Tablet (Daliresp)Indicatio ns:COPD, group D, by GOLD 2017 classification ([facility]) Take 1 Tablet by mouth in the morning. 30 Tablet 2 05/24/2023 4 Active Tiotropium [place] Monohydrate 18 MCG Inhalation Capsule (Spiriva) Inhale [...] the morning. 60 Tablet 11 06/03/2023 Active metFORMIN HCl 1000 MG Oral Tablet (Glucophage) TAKE ONE TABLET BY MOUTH EVERY MORNING 100 Tablet 1 04/21/2023 4 Discontinu ed([facility]) Hospital, Clinic, or Other Facility Administered Medication Ordered Dose Route Frequency Start Date End Date Status albuterol sulfate (PROVENTIL) (2.5 MG/3ML) 0.083% inhalation solution 2.5 mgIndications:COPD, severe (HCC) 2.5 mg NEBULIZER Q4H PRN 07/08/2018 Active documented as of this encounter (statuses as of 06/03/2023) Active Problems Problem Noted Date Diagnosed Date [...] tis 01/05/2014 Coronary artery disease invo lving [place] coronary artery of [place] heart without angina pectoris 11/27/2013 Tobacco abuse 11/27/2013 HTN, goal below 130/80 03/06/2009 Overview: Modified per HTN protocol #16. documented as of this encounter (statuses as of 06/03/2023) Resolved Problems Problem Noted Date Diagnosed Date [...] as of this encounter (statuses as of 06/03/2023) Immunizations Name Administration Dates Next Due COVID-19 [...] Telephone Encounter - Johnnie Newby MD - 06/03/2023 3:30 PM EST ----- Message from CHRISTOPHE Johnson sent at 06/03/2023 2:30 PM EST ----- Regarding: Metformin Hi Dr. Newby, Pt was c/o stool urgency and "mushy stools" wo melena or hematochezia, usually in the morning and wo incontinence. ? Related to Metformin and wondering if you'd consider perhaps changing it to extended release version? Thanks, Agnes documented in this encounter Plan of Treatment Upcoming Encounters Date Type Department Care Team (Late st Contact Info) Description 06/24/2023 10:15 AM EST Imaging Radiology [address] [place] [address] 06/28/2023 10:30 AM EDT [facility] [place] [address] Zander Wilkins, [address] [place] [address] 07/08/2023 10:00 AM EDT Imaging Radiology [facility]st [facility] [address] [place] [address] 07/13/2023 11:00 AM EDT Office Visit Radiation Oncology, [address] [place] [address] Shawna Johnson MD [address] [place] [address] [place] [address] 07/19/2023 11:40 AM EDT Office Visit Family Practice [facility] [address] [place] [address] Johnnie Newby MD [address] [facility] [place] [address] 08/30/2023 10:20 AM EDT Office Visit Podiatry [facility] [address] [facility] [place] [address] Bettye Herrmann, DPLiat 400 [facility] [place] [address] 09/16/2023 9:00 AM EDT Office Visit Cardiology, [facility] [address] [facility] [place] [address] Deisy Aguirre CRNP [address] [place] [address] Scheduled Procedures Name Priority Associated Diagnoses Date/Ti me COLONOSCOPY FLEXIBLE PROXIMA L DIAGNOSTIC Recall History of colonic polyps Health Maintenance Due Date Last Done Comments Hepatitis B (1 of 3 - Risk 3-dose series) 2003 COVID-19 Vaccine ( season) 2023 02/25/2023, 02/10/2022, 07/13/2020, Additional history exists DISCUSS TOBACCO CESSATION (REFER TO SMARTSET #8940) 05/01/2023 05/01/2022, 02/13/2022 Diabetic Eye Exam 07/09/2023 [...] Additional history exists CKD PHOS USE SMARTSET 28332 04/15/202403/20, 06/05/2022, 06/03/2021, Additional history exists Depression Screening 04/22/2024 04/22/2023 CKD HGB USE SMARTSET 51651 06/03/202406/03, 06/03/2023, 04/18/2023, Additional history exists COLONOSCOPY-EVERY [...] this encounter Medical Devices Implanted Type Area Plastics Heat Welder Device Identifier Shelf Expiration Date Model / Serial / Lot Lens Intraoc 24.0 - [id number] - [id number] Implanted:Qty: 1 on 06/01/2017 by Nikhil Bolton MD at OR [facility] Left: Eye BAUSCH & LOMB 07/17/2021 [id number] / [id number] / [id number] Lens Intraoc 24.0 - [id number] - [id number] Implanted:Qty: 1 on 06/08/2017 by Nikhil Bolton MD at OR [facility] Right: Eye BAUSCH & LOMB 07/17/2021 [id number] / [id number] / [id number] documented as of this encounter Advance Directives Documents on File Type Date Recorded Patient Campground Hand Expl anation Advance Directives and Yu Watkins [...] and were consensually agreed upon. Care Teams Supervisor Channel Process Relationship Specialty Start Date End Date Johnnie Newby MD 132 [facility] [place] [address] PCP - General Family Medicine 09/13/20 documented as of this encounter
--- OUTSIDE RECORDS SUMMARY | 2023-07-12 18:46 | External Medical Summary | Summary of Care ---
Author Name Unknown Organization [facility] Address [address] [facility] [place] [address] Phone [phone] Care Team Providers Care Desk Assistant Name Role Phone Johnnie Newby MD Primary Care Provider [phone] Reason for Referral * Evaluate & Treat - Unlimited Visits (Within 30 days (routine)) - Authorized Specialty Diagnoses / Procedures Referred By Treva judd Referred To Contact Hematology/Oncology / Hematology Oncology Diagnoses Anemia, unspecified type Agnes Bowers CRNP [address] [place] [address] Referral ID Status Reason Start Date Expiration Date Visits Requested Visits Authorized [id number] Authorized Specialty Services Required 06/03/2023 999 999 Question Answer Referral Priority Within 30 days (routine) Where should this appointment be scheduled? [facility] Reason for Referral Anemia Reason for Visit * Reason Comments Follow Up Follow up after EGD and colonoscopy Encounter Details Date Type Department Care Team (Late st Contact Info) Description 06/03/2023 1:00 PM EST Office Visit Gastroenterology, [facility] [address] [place] [address] Agnes Bowers CRNP [address] [place] [address] Anemia, unspecified type*; Other iron deficiency anemia Allergies Active Allergy Reactions Criticality Noted Date [...] goal of less than 7.0% ([facility]) TEST ONCE DAILY 100 Strip 5 03/02/2018 Active BiPAP every night at bedtime. 0 Active Vitamin B-12 1000 MCG Oral Tablet (Cyanocobalamin) Take 1 Tablet by mouth in the morning. 0 Active Isosorbide Mononitrate ER 60 MG Oral Tablet Extended Release 24 Hour (Imdur)Indications:C oronary artery disease involving [place] coronary artery without angina pectoris TAKE ONE TABLET BY MOUTH EVERY MORNING 90 Tablet 3 09/18/2022 4 Active Apixaban 5 MG Oral Tablet (Eliquis) Take 1 Tablet by mouth in the morning and 1 Tablet before bedtime. 180 Tablet 3 12/08/2022 Active Metoprolol Succinate ER 25 MG Oral Tablet Extended Release 24 Hour (toPROL XL)Indications:SVT (supraventricular tachycardia),NSVT (nonsustained ventricular tachycardia) ([facility]) TAKE ONE TABLET BY MOUTH EVERY [...] 15 minutes 75 Tablet 3 04/18/2023 Active metFORMIN HCl 1000 MG Oral Tablet (Glucophage) TAKE ONE TABLET BY MOUTH EVERY MORNING 100 Tablet 1 04/21/2023 5 Active Colchicine 0.3 MG OR TABS 1 [...] group D, by GOLD 2017 classification (HCC) Take 1 Tablet by mouth in the morning. 30 Tablet 2 05/24/2023 4 Active Tiotropium [place] Monohydrate 18 MCG Inhalation Capsule (Spiriva) Inhale 1 Capsule by mouth in the morning. 30 Capsule 2 05/24/2023 4 Active Full Kit Nebulizer Set Use with Nebulizer Medication EVERY FOUR HOURS as directed. Dx Code: J44.9 1 Each 3 05/28/2023 Active Hospital, Clinic, or Other Facility Administered [...] tis 01/05/2014 Coronary artery disease invo lving [place] coronary artery of [place] heart without angina pectoris 11/27/2013 Tobacco [...] Reading Time Taken Comments Blood Pressure 102/58 06/03/2023 12:52 PM EST Pulse 52 06/03/2023 12:52 PM EST Temperature 36.6 C (97.9 F) 06/03/2023 12:[address] Respiratory Rate - - Oxygen Saturation 96% 06/03/2023 12:52 PM EST Inhaled Oxygen Concentration - - Weight 91 kg (200 lb 9.6 oz) 06/03/2023 12:52 PM EST Height 174 cm (5' 8.5") 06/03/2023 12:52 PM EST Body Mass Index 30.05 06/03/2023 12:52 PM EST documented in this encounter Functional Status Functional Status Response [...] as of this encounter Progress Notes * Agnes Bowers CRNP - 06/03/2023 1:03 PM EST DATE OF SERVICE: 06/03/23 REFERRING PHYSICIAN: Zack Brewer PA-C CC: Iron deficiency anemia, FOBT + HPI: 06/03/23: Patient denies abdominal pain, nausea or vomiting. Stools are mostly "mushy" and urgent in the morning wo stool incontinence. He denies any rectal bleeding or dark tarry stools. Had NSTEMI in 03/2023 refused CABG. 01/08/2023 - Walter Don is a 77 year old male, referred by Zack Brewer PA-C for evaluation of iron deficiency anemia and noted to have + FOBT recently. He denies CP, SOB, abd pain, n/v, gross rectal bleeding or dark tarry stools. He is on Eliquis and ASA for hx of CVA and suspected TIAs. Reports hx of stomach ulcers in his mid teens-early [...] more information Past Medical History: Diagnosis Date Anemia of [...] performed [place] Warren Patel [place] [facility] [place] TH[place] STOMA, W/BIOPSY 05/28/2010 andenomatous tissue--repeat in 3 months COLONOSCOPY THRU STOMA, W/BIOPSY 09/18/2010 adenomatous-repeat colonoscopy in 3-6 months COLONOSCOPY THRU STOMA, W/BIOPSY 04/09/2011 polyps x3 , path shows adenomatous tissue repeat in 1 years COLONOSCOPY, DIAGNOSTIC (RECTUM) 05/20/2016 adenomatous polyps, poor prep, diverticulosis, repeat 3 yrs/[facility] COLONOSCOPY, DIAGNOSTIC (RECTUM) 06/06/2019 hemorrhoids/diverticulosis sigmoid and descending colon/small AVM/biopsies show adenomatous polyps/recall 6-9 months/COLONOSCOPY FLEXIBLE PROXIMAL DIAGNOSTIC performed by Clemencia Marinelli MD at[facility] COLONOSCOPY, DIAGNOSTIC (RECTUM) 03/05/2022 benign adenomatous polyp, repeat 1 yr / COLONOSCOPY FLEXIBLE PROXIMAL DIAGNOSTIC performed by Clemencia Marinelli MD at ENDOSCOPY [facility] COLONOSCOPY, DIAGNOSTIC (RECTUM) 01/14/2023 hemorrhoids/diverticulosis/biopsies show hyperplastic polyps/recall 2 years/COLONOSCOPY FLEXIBLE PROXIMAL DIAGNOSTIC performed by Destiny Mojica DO at ENDOSCOPY [facility] CORONARY ANGIOGRAPHY W/LEFT HEART CATH Right 04/16/2023 CORONARY ANGIOGRAPHY W/LEFT HEART CATH performed by Maria G Lance MD [place] [facility] [place]STROY LUMBAR SACRAL NERVE IMAGING ADD'L 01/27/2023 DESTROY LUMBAR SACRAL NERVE IMAGING ADD'L performed by Pb Alexander DO at OR [facility] DESTROY LUMBAR SACRAL NERVE IMAGING SINGLE 01/27/2023 DESTROY LUMBAR SACRAL NERVE IMAGING SINGLE performed by Pb Alexander DO at [facility] EGD, FLEXIBLE, DIAGNOSTIC 01/14/2023 gsatric polyp/ESOPHAGOGASTRODUODENOSCOPY (EGD), FLEXIBLE, TRANSORAL, DIAGNOSTIC performed by Phong Mojica DO at ENDOSCOPY [facility] L-/S-SPINE PARAVERTEBRAL FACET INJ,1 LEVEL 11/25/2022 L-/S-SPINE PARAVERTEBRAL FACET INJ, 1 LEVEL performed by Pb Alexander DO at OR [facility] L-/S-SPINE PARAVERTEBRAL FACET INJ,1 LEVEL 01/06/2023 L-/S-SPINE PARAVERTEBRAL FACET INJ, 1 LEVEL performed by Pb Alexander DO at OR [facility] L-/S-SPINE PARAVERTEBRL FACET INJ,2 LEVELS 11/25/2022 L-/S-SPINE PARAVERTEBRAL FACET INJ, 2 LEVELS performed by Pb Alexander DO at OR [facility] L-/S-SPINE PARAVERTEBRL FACET INJ,2 LEVELS 01/06/2023 L-/S-SPINE PARAVERTEBRAL FACET INJ, 2 LEVELS performed by Pb Alexander DO at OR [facility] MISCELLANEOUS ORDER ([facility] ONLY) 1998 henria repair OTHER (INFORMATION) pilonidal cyst removal OTHER (INFORMATION) repair of bilateral shoulder for bone spur and repair of torn muscles right shoulder REMOVE CATARACT, INSERT LENS PROSTH Left 06/01/2017 left EXTRACAPSULAR CATARACT REMOVAL WITH INTRAOCULAR LENS performed by Nikhil Bolton MD at OR [facility] REMOVE CATARACT, INSERT LENS PROSTH Right 06/08/2017 right EXTRACAPSULAR CATARACT REMOVAL WITH INTRAOCULAR LENS performed by Nikhil Bolton MD at OR [facility] Social History Tobacco Use Smoking status: [...] MORNING *NEED UPDATED LABS* 90 Capsule 1 Clopidogrel Bisulfate 75 MG Oral Tablet (pLAVix) Take 1 Tablet by mouth in the morning. 30 Tablet 11 Nitroglycerin 0.4 MG Sublingual Tablet Sublingual (Nitrostat) Place 1 Tablet under the tongue every5 minutes as needed for Pain, Chest. up to 3 doses in 15 minutes 75 Tablet 3 metFORMIN HCl 1000 MG Oral [...] in the morning. 30 Tablet 2 Tiotropium [place] Monohydrate 18 MCG Inhalation Capsule (Spiriva) Inhale 1 Capsule by mouth in themorning. 30 Capsule 2 Full Kit Nebulizer Set Use with Nebulizer Medication EVERY FOUR HOURS as directed. Dx Code: J44.9 1 Each 3 BUSPAR 15 MG PO TABS Take by mouth. Uses as needed (Patient not taking: Reported on 06/03/2023) Colchicine 0.3 MG OR TABS 1 Tablet. (Patient not taking: Reported on 06/03/2023) Current Facility-Administered Medications Medication Dose Route Frequency Provider Last Rate Last Admin albuterol sulfate (PROVENTIL) (2.5 MG/3ML) 0.083% inhalation solution 2.5 mg 2.5 mg Nebulizer Q4H PRN Junaid Pyle MD 2.5 mg at 07/26/18 1521 REVIEW OF SYSTEMS: See HPI above; All other findings negative. EXAM: Filed Vitals: 06/03/23 1252 BP: 102/58 Pulse: 52 Temp: 36.6 C (97.9 F) TempSrc: Tympanic SpO2: 96% Weight: 91 kg (200 lb 9.6 oz) Height: 1.74 m (5' 8.5") GENERAL: Well developed and well nourished in [...] uses. + tobacco user, denies ETOH, NSAIDs. Has CKD, recently had NSTEMI. EGD and colonoscopy 12/2022 wo luke GI bleeding sources. - Omeprazole 20mg daily - Vitron C once daily - Repeat labs: Cbc with wbc differential Iron screen, including tibc Ferritin - Hematology/oncology referral op - Avoid ETOH, NSAIDs. I spent a total of 30 minutes on the date of service in review of patient's record, and previously obtained information in person and appropriate medical visit, discussion and education of plan, withpatient and/or caregiver, placing orders for tests/referral/procedures as medically necessary and documentation of pertinent clinical information in patient's medical records for their visit today. [facility], [facility] documented in this encounter Nursing Notes * Chuck Paniagua CMA - 06/03/2023 12:47 PM EST Chief Complaint Patient presents with Follow Up Follow up after EGD and colonoscopy Walter Don is a 77 year old male who presents today for a follow up after an EGD and a colonoscopy that were performed on 01/14/2023. He states that he has frequent bowel movements that he describes as the consistency of mashed potatoes. He denies abdominal pain or blood in stool. documented in this encounter Plan of Treatment Upcoming Encounters Date Type Department Care Team (Late st Contact Info) Description 06/24/2023 10:15 AM EST Imaging Radiology [address] [place] [address] 06/28/2023 10:30 AM EDT Office Visit Orthopaedics [facility] [address] [place] [address] Zander Wilkins, [address] [place] [address] 07/08/2023 10:00 AM EDT Imaging Radiology [address] [place] [address] 07/13/2023 11:00 AM EDT Office Visit Radiation Oncology, [address] [place] [address] Shawna Johnson MD [address] [place] [address] [place] [address] 07/19/2023 11:40 AM EDT Office Visit Family Practice [facility] [address] [place] [address] Johnnie Newby MD [address] [place] [address] 08/30/2023 10:20 AM EDT Office Visit Podiatry [facility] [address] [place] [address] Bettye Herrmann, SAMM [address] [place] [address] 09/16/2023 9:00 AM EDT Office Visit Cardiology, [facility] [address] [place] [address] Deisy Aguirre CRNP [address] [place] [address] Pending Results Name Type Priority Associated Diagnoses Date /Time IRON SCREEN, INCLUDING TIBC Lab Routine Anemia, unspecified type 06/03/2023 1:27 PM EST FERRITIN Lab Routine Anemia, unspecified type 06/03/2023 1:27 PM EST Scheduled Orders Name Type Priority Associated Diagnoses Orde r Schedule IRON SCREEN, INCLUDING TIBC Lab Routine Anemia, unspecified type Expected: 06/03/2023, Expires: 06/03/2024 Scheduled Procedures Name Priority Associated Diagnoses Date/Ti me COLONOSCOPY FLEXIBLE PROXIMA L DIAGNOSTIC Recall History of colonic polyps Scheduled Referrals Name Type Priority Associated Diagnoses Orde r Schedule HEMATOLOGY/ONCOLOGY REFERRAL OP Referral Within 30 days (routine) Anemia, unspecified type Ordered: 06/03/2023 Health Maintenance Due Date Last Done Comments Hepatitis B (1 of 3 - Risk 3-dose series) 2003 COVID-19 Vaccine ( season) 2023 02/25/2023, 02/10/2022, 07/13/2020, Additional history exists DISCUSS TOBACCO CESSATION (REFER TO SMARTSET #4045) 05/01/2023 05/01/2022, 02/13/2022 Diabetic Eye Exam 07/09/2023 [...] Additional history exists CKD PHOS USE SMARTSET 52298 04/15/202403/20, 06/05/2022, 06/03/2021, Additional history exists Depression Screening 04/22/2024 04/22/2023 CKD HGB USE SMARTSET 04230 06/03/202406/03, 06/03/2023, 04/18/2023, Additional history exists COLONOSCOPY-EVERY [...] this encounter Medical Devices Implanted Type Area Machine Skiver Device Identifier Shelf Expiration Date Model / Serial / Lot Lens Intraoc 24.0 - [id number] - [id number] Implanted:Qty: 1 on 06/01/2017 by Nikhil Bolton MD at OR [facility] Left: Eye [employer] LOMB 07/17/2021 [id number] / [id number] / [id number] Lens Intraoc 24.0 - [id number] - [id number] Implanted:Qty: 1 on 06/08/2017 by Nikhil Bolton MD at OR [facility] Right: Eye BAUSCH [employer] LOMB 07/17/2021 [id number] / [id number] / [id number] documented as of this encounter Visit Diagnoses Diagnosis Anemia, unspecified type- Primary Other iron deficiency anemia documented in this encounter Advance Directives Documents on File Type Date Recorded Patient Charge Histotechnologist Expl 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 Care Teams Desk Assistant Relationship Specialty Start Date End Date Johnnie Newby MD [address] [place] [address] PCP - General Family Medicine 09/13/20 documented as of this encounter
--- OUTSIDE RECORDS SUMMARY | 2023-07-12 18:46 | External Medical Summary | Summary of Care ---
Author Name Unknown Organization [facility] Address [address] [place] [address] Phone [phone] Care Team Providers Care Sand Car Worker Name Role Phone Johnnie Newby MD Primary Care Provider [phone] Reason for Visit * Reason Onset Date Comments Test Results Imaging Study 06/15/2023 Encounter Details Date Type Department Care Team (Late st Contact Info) Description 06/15/2023 Telephone Otolaryngology [facility] [address] [facility] [place] [address] Du Mota DO [address] [facility] [place] [address] Test Results Imaging Study Allergies Active Allergy Reactions Criticality Noted Date Comments Acetaminophen 05/06/2005 headaches documented as of this encounter (statuses as of 06/15/2023) Medications Medication Sig Dispensed Refills Start Date [...] by GOLD 2017 classification ([facility]) Take 1 Tablet by mouth in the morning. 30 Tablet 2 05/24/2023 4 Active Tiotropium [place] Monohydrate 18 MCG Inhalation Capsule (Spiriva) Inhale [...] as of this encounter (statuses as of 06/15/2023) Active Problems Problem Noted Date Diagnosed Date [...] tis 01/05/2014 Coronary artery disease invo lving [place] coronary artery of [place] heart without angina pectoris 11/27/2013 Tobacco abuse 11/27/2013 HTN, goal below 130/80 03/06/2009 Overview: Modified per HTN protocol #16. documented as of this encounter (statuses as of 06/15/2023) Resolved Problems Problem Noted Date Diagnosed Date [...] as of this encounter (statuses as of 06/15/2023) Immunizations Name Administration Dates Next Due COVID-19 mRNA, LNP-s, No Pre serve, 2-Dose Series (Sensentia) 02/25/2023,02/10/2022,07/13/2020,06/17 Pneumococcal Conjugate Vacc, 13 Valent (Prevnar) [...] encounter Miscellaneous Notes * Telephone Encounter - Cata Lange LPN - 06/15/2023 11:25 AM EST Pt returning call, made aware of results and recommendations. pt voiced understanding. Forwarding to PCP at patient's request to see if anything further is needed. * Telephone Encounter - Floresita Avendaño LPN - 06/15/2023 9:27 AM EST I left a message on patient's answering machine asking patient to call us back. * Telephone Encounter - Du Mota DO - 06/15/2023 7:50 AM EST Please let patient know that his MRI showed no inner ear masses or lesions. Did show some chronic small-vessel disease within the brain. This is not uncommon at his age. Recommend he follow-up with his family doctor to determine if any further intervention is needed. Du Mota DO, FACS [facility] Otolaryngology Head and Neck [place], [place] 06/15/2023 7:51 AM documented in this encounter Plan of Treatment Upcoming Encounters Date Type Department Care Team (Late st Contact Info) Description 06/28/2023 10:30 AM EDT Office Visit Orthopaedics [facility] [address] [place] [address] Zander Wilkins DO [address] [place] [address] 07/08/2023 10:00 AM EDT Imaging Radiology [address] [place] [address] 07/19/2023 11:40 AM EDT Office Visit Family Practice [facility] [address] [place] [address] Johnnie Newby MD [address] [place] [address] 07/27/2023 11:00 AM EDT Office Visit Radiation Oncology, [address] [place] [address] Shawna Johnson MD [address] [place] [address] [place] [address] 07/30/2023 10:30 AM EDT Office Visit Cardiology, [facility] [address] [place] [address] Warren Montoya DO [address] [facility] [place] [address] 08/30/2023 10:20 AM EDT [facility] [place] [address] [facility] [address] [facility] [address] 09/02/2023 11:00 AM EDT Laboratory Laboratory [address] [place] [id number] [address] [place] [address] 09/09/2023 11:00 AM EDT Office Visit Hematology/Oncology [facility] [address] [place] [id number] Lexie Palmer CRNP [address] [facility] [place] [id number] 09/16/2023 9:00 AM EDT Office Visit Cardiology, [facility] [address] [place] [address] Deisy Aguirre CRNP [address] [place] [address] Scheduled Procedures Name Priority Associated Diagnoses Date/Ti [...] Additional history exists CKD PHOS USE SMARTSET 07612 04/15/202403/20, 06/05/2022, 06/03/2021, Additional history exists Depression Screening 04/22/2024 04/22/2023 CKD HGB USE SMARTSET 27415 06/03/202406/03, 06/03/2023, 04/18/2023, Additional history exists COLONOSCOPY-EVERY [...] this encounter Medical Devices Implanted Type Area Pumper Head Device Identifier Shelf Expiration Date Model / Serial / Lot Lens Intraoc 24.0 - [id number] - [id number] Implanted:Qty: 1 on 06/01/2017 by Nikhil Bolton MD at OR [facility] Left: Eye [employer]OMB 07/17/2021 [id number] / [id number] / [id number] Lens Intraoc 24.0 - [id number] - [id number] Implanted:Qty: 1 on 06/08/2017 by Nikhil Bolton MD at OR [facility] Right: Eye [employer]USCH [employer] LOMB 07/17/2021 [id number] / [id number] / [id number] documented as of this encounter Advance Directives Documents on File Type Date Recorded Patient Nursing Project Coordinator Expl anation Advance Directives and Yu fine [...] and were consensually agreed upon. Care Teams Sand Car Worker Relationship Specialty Start Date End Date Johnnie Newby MD [address] [place] [address] PCP - General Family Medicine 09/13/20 documented as of this encounter
--- OUTSIDE RECORDS SUMMARY | 2023-07-12 18:46 | External Medical Summary | Summary of Care ---
Author Name Unknown Organization [facility] Address [address] [place] [address] Phone [phone] Care Team Providers Care Collar Stay Fuser Tender Name Role Phone John Newby MD Primary Care Provider [phone] Reason for Visit * Reason Onset Date Comments Medication Refill 06/21/2023 Encounter Details Date Type Department Care Team (Late st Contact Info) Description 06/21/2023 Refill Family Practice [facility] [address] [facility] [place] [address] John Newby MD [address] [place] [address] Allergies Active Allergy Reactions Criticality Noted Date Comments Acetaminophen 05/06/2005 headaches documented as of this encounter (statuses as of 06/23/2023) Medications Medication Sig Dispensed Refills Start Date [...] 24 Hour (Imdur)Indications: Coronary artery disease involving [place] coronary artery without angina pectoris TAKE ONE [...] ns:COPD, group D, by GOLD 2017 classification ([facility]) Take 1 Tablet by mouth in the morning. 30 Tablet 2 05/24/2023 4 Active Tiotropium [place] Monohydrate 18 MCG Inhalation Capsule (Spiriva) Inhale [...] the morning. 90 Tablet 2 06/23/2023 Active Clopidogrel Bisulfate 75 MG Oral Tablet (pLAVix) Take 1 Tablet by mouth in the morning. 30 Tablet 11 04/19/2023 4 Discontinu ed(Refill) Hospital, Clinic, or Other Facility Administered Medication Ordered Dose Route Frequency Start Date End Date Status albuterol sulfate (PROVENTIL) (2.5 MG/3ML) 0.083% inhalation solution 2.5 mgIndications:COPD, severe (HCC) 2.5 mg NEBULIZER Q4H PRN 07/08/2018 Active documented as of this encounter (statuses as of 06/23/2023) Active Problems Problem Noted Date Diagnosed Date [...] tis 01/05/2014 Coronary artery disease invo lving [place] coronary artery of [place] heart without angina pectoris 11/27/2013 Tobacco abuse 11/27/2013 HTN, goal below 130/80 03/06/2009 Overview: Modified per HTN protocol #16. documented as of this encounter (statuses as of 06/23/2023) Resolved Problems Problem Noted Date Diagnosed Date [...] as of this encounter (statuses as of 06/23/2023) Immunizations Name Administration Dates Next Due COVID-19 mRNA, LNP-s, No Pre serve, 2-Dose Series ([employer] Messages) 02/25/2023,02/10/2022,07/13/2020,06/17 Pneumococcal Conjugate Vacc, 13 Valent (Prevnar) [...] encounter Miscellaneous Notes * Telephone Encounter - John Newby MD - 06/23/2023 5:52 PM ESTSigned Prescriptions: Disp Refills Clopidogrel Bisulfate 75 MG Oral Tablet (p*90 Tab*2 Sig: Take 1 Tablet by mouth in the morning. Authorizing Provider: JOHN NEWBY * Telephone Encounter - Conor Cervantes [facility] - 06/23/2023 8:43 AM EST Pending Prescriptions: Disp Refills Clopidogrel Bisulfate 75 MG Oral Tablet (p*90 Tab*2 Sig: Take 1 Tablet by mouth in the morning. * Telephone Encounter - Conor Cervantes [facility] - 06/23/2023 8:42 AM EST Medication last prescribed as part of a hospital discharge. Please review and advise if refills arewarranted. Pending Prescriptions: Disp Refills Clopidogrel Bisulfate 75 MG Oral Tablet (*90 Tab*2 Sig: Take 1 Tablet by mouth in the morning. Last Visit: 04/23/2023 (in office), Visit date not found (telemedicine) Next Visit: 07/19/2023 If no future appointments scheduled, and last appointment is greater than a year ago, please schedule patient for a follow-up appointment Last date the medication was ordered: 04/19/23 Pharmacy: [facility] Is this request for a controlled substance? No Urine Drug Screen:No results found. However, due to the size of the patient record, not all encounters were searched. Please check Results Review for a complete set of results. Patient Phone Numbers Labs: Lab Results Component Value Date/Time CREAT 1.7 (H) 04/18/2023 05:48 AM CREAT 1.2 11/30/2019 09:17 AM POTASSIUM 4.0 04/18/2023 05:48 AM POTASSIUM 4.2 11/30/2019 09:17 AM TSH 3.24 04/16/2023 03:45 PM TSH 1.55 10/07/2015 12:50 PM LDLCALC 96 04/16/2023 05:50 AM LDLCALC 110 11/30/2019 09:17 AM LDLCALC 231. (HH) 02/11/1996 09:20 AM LDLDIRECT NOT APPLICABLE 11/30/2019 09:17 AM LDLDIRECT 123 05/18/2016 03:54 PM ALT 19 04/16/2023 03:45 PM ALT 17 11/30/2019 09:17 AM ALT 38 02/11/1996 09:20 AM HGBA1C 6.0 (H) 04/16/2023 05:50 AM HGBA1C 6.1 (H) 11/30/2019 09:17 AM documented in this encounter Plan of Treatment Upcoming Encounters Date Type Department Care Team (Late st Contact Info) Description 06/28/2023 10:30 AM EDT Office Visit Orthopaedics [facility] [address] [place] [address] Zander Wilkins, DO [address] [place] [address] 07/08/2023 10:00 AM EDT Imaging Radiology [address] 132 [facility] [place] [address] 07/19/2023 11:40 AM EDT Office Visit Family Practice [facility] 132 [facility] [place] [address] John Newby MD 132 [facility] [place] [address] 07/27/2023 11:00 AM EDT Office Visit Radiation Oncology, [address] [place] [address] Shawna Johnson MD [address] [place] [address] [place] [address] 07/30/2023 10:30 AM EDT Office Visit Cardiology, [facility] 132 [facility] [place] [address] Warren Montoya DO 132 [facility] [place] [address] 08/30/2023 10:20 AM EDT Office Visit Podiatry [facility] 132 [facility] [place] [address] Bettye Herrmann DPM [facility] [address] 09/02/2023 11:00 AM EDT Laboratory Laboratory [address] [place] [phone] [address] [place] [address] 09/09/2023 11:00 AM EDT Office Visit Hematology/Oncology [facility] [address] [place] [phone] Lexie Palmer CRNP 400 [facility] [place] [address] 09/16/2023 9:00 AM EDT Office Visit Cardiology, [facility] [address] [place] [address] Deisy Aguirre CRNP [address] [place] [address] Scheduled Procedures Name Priority Associated Diagnoses Date/Ti [...] Additional history exists CKD PHOS USE SMARTSET 97594 04/15/202403/20, 06/05/2022, 06/03/2021, Additional history exists Depression Screening 04/22/2024 04/22/2023 CKD HGB USE SMARTSET 58769 06/03/202406/03, 06/03/2023, 04/18/2023, Additional history exists COLONOSCOPY-EVERY [...] encounter Medical Devices Implanted Type Area Machine Setter Automatic Device Identifier Shelf Expiration Date Model / Serial / Lot Lens Intraoc 24.0 - [id number] - [id number] Implanted:Qty: 1 on 06/01/2017 by Nikhil Bolton MD at [facility] Left: Eye [employer] 07/17/2021 [id number] / [id number] / [id number] Lens Intraoc 24.0 - [id number] - [id number] Implanted:Qty: 1 on 06/08/2017 by Nikhil Bolton MD at OR [facility] Right: Eye [employer]OM[employer] 07/17/2021 [id number] / [id number] / [id number] documented as of this encounter Advance Directives Documents on File Type Date Recorded Patient Stock And Station Agent Expl anation Advance Directives and Yu Watkins [...] and were consensually agreed upon. Care Teams Collar Stay Fuser Tender Relationship Specialty Start Date End Date John Newby MD [address] [place] [address] PCP - General Family Medicine 09/13/20 documented as of this encounter
--- OUTSIDE RECORDS SUMMARY | 2023-07-12 18:46 | External Medical Summary | Summary of Care ---
Author Name Unknown Organization [facility] Address [address] [place] [address] Phone [phone] Care Team Providers Care Carpenter Helper Hardwood Flooring Name Role Phone Johnnie Newby MD Primary Care Provider [phone] Reason for Visit * Reason Onset Date Comments Test Results Imaging Study 06/15/2023 Encounter Details Date Type Department Care Team (Late st Contact Info) Description 06/15/2023 Telephone Otolaryngology [facility] [address] [facility] [place] [address] Du Mota DO [facility] [address] Test Results Imaging Study Allergies [...] 24 Hour (Imdur)Indications:C oronary artery disease involving [place] coronary artery without angina pectoris TAKE ONE [...] GOLD 2017 classification ([facility]) Take 1 Tablet by mouth in the morning. 30 Tablet 2 05/24/2023 4 Active Tiotropium [place] Monohydrate 18 MCG Inhalation Capsule (Spiriva) Inhale [...] tis 01/05/2014 Coronary artery disease invo lving [place] coronary artery of [place] heart without angina pectoris 11/27/2013 Tobacco abuse [...] mRNA, LNP-s, No Pre serve, 2-Dose Series ([email or web address]) 02/25/2023,02/10/2022,07/13/2020,06/17 Pneumococcal Conjugate Vacc, 13 Valent (Prevnar) [...] Telephone Encounter - Johnnie Newby MD - 06/15/2023 5:31 PM EST Nothing further needed * Telephone Encounter - Cata Lange LPN [...] further intervention is needed. Du Mota DO, TENN[facility] Otolaryngology Head and Neck [place] 06/15/2023 7:51 AM documented in this encounter Plan of Treatment Upcoming Encounters Date Type Department Care Team (Late st Contact Info) Description 06/28/2023 10:30 AM EDT Office [facility] [place] [address] Zander Wilkins DO [address] [place] [address] 07/08/2023 10:00 AM EDT Imaging Radiology [address] [place] [address] 07/19/2023 11:40 AM EDT Office Visit Family Practice [facility] [address] [place] [address] Johnnie Newby MD [address] [place] [address] 07/27/2023 11:00 AM EDT Office Visit Radiation Oncology, [address] [place] [address] Shawna Johnson MD [address] [place] [address] [place] [address] 07/30/2023 10:30 AM EDT Office Visit Cardiology, [facility] [address] [place] [address] Warren Montoya, DO [address] [place] [address] 08/30/2023 10:20 AM EDT Office Visit Podiatry [facility] [address] [place] [address] Bettye Herrmann, DPLiat [address] [place] [address] [place] [address] 09/02/2023 11:00 AM EDT Laboratory Laboratory [address] [place] [phone] [address] [place] [address] 09/09/2023 11:00 AM EDT Office Visit Hematology/Oncology [address] [place] [phone] Lexie Palmer CRNP [address] [place] [address] 09/16/2023 9:00 AM EDT Office Visit Cardiology, [facility] [address] [facility] [place] [address] Deisy Aguirre CRNP [address] [place] [address] Scheduled Procedures Name Priority Associated Diagnoses Date/Ti [...] Additional history exists CKD PHOS USE SMARTSET 57359 04/15/202403/20, 06/05/2022, 06/03/2021, Additional history exists Depression Screening 04/22/2024 04/22/2023 CKD HGB USE SMARTSET 72189 06/03/202406/03, 06/03/2023, 04/18/2023, Additional history exists COLONOSCOPY-EVERY [...] this encounter Medical Devices Implanted Type Area Correctional Treatment Specialist Device Identifier Shelf Expiration Date Model / Serial / Lot Lens Intraoc 24.0 - [id number] - [id number] Implanted:Qty: 1 on 06/01/2017 by Nikhil Bolton MD at OR [facility] Left: Eye [employer] 07/17/2021 [id number] / [id number] / [id number] Lens Intraoc 24.0 - [id number] - [id number] Implanted:Qty: 1 on 06/08/2017 by Nikhil Bolton MD at OR [facility] Right: Eye [employer] 07/17/2021 [id number] / [id number] / [id number] documented as of this encounter Advance Directives Documents on File Type Date Recorded Patient Leather Products Supervisor Expl anation Advance Directives and Yu [...] and were consensually agreed upon. Care Teams Carpenter Helper Hardwood Flooring Relationship Specialty Start Date End Date Johnnie Newby MD [address] [place] [address] PCP - General Family Medicine 09/13/20 documented as of this encounter
--- OUTSIDE RECORDS SUMMARY | 2023-07-12 18:46 | External Medical Summary | Summary of Care ---
Author Name Unknown Organization [facility] Address [address] [place] [address] Phone [phone] Care Team Providers Care Procedures Tech Name Role Phone Johnnie Newby MD Primary Care Provider [phone] Reason for Visit * Reason Comments Consultation Anemia * Evaluate & Treat - Unlimited Visits (Within 30 days (routine)) - Authorized Specialty Diagnoses / Procedures Referred By Treva t Referred To Contact Hematology/Oncology / Hematology Oncology Diagnoses Anemia, unspecified type Agnes Bowers CRNP [address] [place] [address] Referral ID Status Reason Start Date Expiration Date Visits Requested Visits Authorized [id number] Authorized Specialty Services Required 06/03/[phone] Encounter Details Date Type Department Care Team (Late st Contact Info) Description 06/11/2023 10:00 AM EST Office Visit Hematology/Oncology [place] Sarah Walker [address] [place] [address] Lexie Palmer CRNP [address] [place] [address] Anemia of chronic disease*; Iron deficiency anemia, unspecified iron deficiency anemia type; Malignant neoplasm of right upper lobe of lung ([facility]) Allergies Active Allergy Reactions Criticality Noted Date Comments Acetaminophen 05/06/2005 headaches documented as of this encounter (statuses as of 06/20/2023) Medications Medication Sig Dispensed Refills Start Date [...] 24 Hour (Imdur)Indications:C oronary artery disease involving [place] coronary artery without angina pectoris TAKE ONE [...] 30 Tablet 2 05/24/2023 4 Active Tiotropium [place] Monohydrate 18 MCG Inhalation Capsule (Spiriva) Inhale [...] as of this encounter (statuses as of 06/20/2023) Active Problems Problem Noted Date Diagnosed Date [...] tis 01/05/2014 Coronary artery disease invo lving [place] coronary artery of [place] heart without angina pectoris 11/27/2013 Tobacco abuse 11/27/2013 HTN, goal below 130/80 03/06/2009 Overview: Modified per HTN protocol #16. documented as of this encounter (statuses as of 06/20/2023) Resolved Problems Problem Noted Date Diagnosed Date [...] as of this encounter (statuses as of 06/20/2023) Immunizations Name Administration Dates Next Due COVID-19 [...] Sign Reading Time Taken Comments Blood Pressure 126/61 06/11/2023 9:58 AM EST Pulse 64 06/11/2023 9:58 AM EST Temperature 36.6 C (97.8 F) 06/11/2023 9:58 AM ES T Respiratory Rate 20 06/11/2023 9:58 AM EST Oxygen Saturation 92% 06/11/2023 9:58 AM EST Inhaled Oxygen Concentration - - Weight 91 kg (200 lb 11.2 oz) 06/11/2023 9:58 AM EST Height 174 cm (5' 8.5") 06/11/2023 9:58 AM EST Body Mass Index 30.07 06/11/2023 9:58 AM EST documented in this encounter Functional Status [...] as of this encounter Progress Notes * Lexie Palmer CRNP - 06/11/2023 10:04 AM EST Hematology/Oncology Outpatient Clinic note Corbin Kurtz [address] [facility] [address] Name: Walter Don Date: 06/11/2023 REFERRED BY: CHRISTOPHE Johnson CHIEF COMPLAINT: Walter Don is a 77 year old male here today for new consultation for iron deficiency anemia. HISTORY OF PRESENT ILLNESS: Patient with PMH of asthma, COPD, depression, peripheral neuropathy, DLD, HTN, lung cancer, YISSEL andCVA on chronic anticoagulation and NSTEMI. Follows with cardiology. Was referred to GI in Decemberfor iron deficiency anemia. Currently taking Vitron C one tablet daily. Normal vitamin b12 and folic acid. EGD and colonoscopy 12/2022 unremarkable for source of bleeding. Recommended repeat colonoscopy in two years for surveillance d/t multiple polyps. Patient denies abdominal pain, nausea or vomiting. He denies any rectal bleeding or dark tarry stools. Denies significant changes in bowel habits.He denies CP, SOB. He is on Eliquis and ASA for hx of CVA since November. Denies ETOH abuse, NSAIDs. + smoke 1PPD tobacco. Had NSTEMI in 03/2023 refused CABG. Component Latest Ref Rng 04/18/2023 06/03/2023 HGB 14.0 - 16.8 g/dL 8.5 (L) 10.6 (L) WBC 4.00 - 10.80 K/uL 6.82 5.99 RBC 4.50 - 5.25 M/uL 3.30 3.88 HCT 40.0 - 48.4 % 28.9 (L) 36.0 (L) MCV 82.0 - 99.5 fL 87.6 92.8 MCH 27.0 - 34.0 pg 25.8 27.3 MCHC 32.0 - 36.0 g/dL 29.4 29.4 RDW 11.5 - 15.5 % 18.1 20.2 PLT 140 - 400 K/uL 239 187 MPV 6.6 - 11.1 fL 9.7 10.2 Per Rad/Onc 07/07/22: SITE OF MALIGNANCY: Right Upper Lobe Lung, 1.2cm Right Lower Lobe Lung, 3.2cm HISTOPATHOLOGY: NSCLC, Adenocarcinoma, EGFR/ALK/ROS1/BRAF negative, PDL1 5% STAGE: 2 Synchronous RUL and RLL Stage I primaries, vs. M1a Stage IV CURRENT THERAPY: Clinico-radiographic Survaillance PRIOR THERAPY: 08/19/2020-08/30/2020 Definitive hypofrac stereo RT to RUL, 7000cGy in 10 fractions 08/19/2020-08/29/2020 Definitive SBRT to RLL, 5000cGy in 5 fractions Patient's main complaint is lower back pain. Has been struggling with this for years. Has received injections previously through pain management that have helped. Comes and goes. Recently flared up. Since he was started on Plavix and Eliquis for his heart and now can't take NSAIDs. Cannot take Tylenol d/t allergy. Has been using heating pads which does help some. Has also tried OTC salonpas patches and a rub that did not help much either. Confirms taking Vitron C daily. Tolerating well. Denies any adverse GI side effects. Stool is slightly darker since being on the iron. Denies drenching night sweats or unexplained weight loss. Patient does report fatigue. SOB is worse. Gets very SOB with exertion. Uses PRN albuterol. Denies CP. Denies increased weakness. Denies dizziness. No interest in quitting smoking. Does not drink alcohol. Mother with cancer in her 90s. No known family history of blood disorders. Patient's past medical history, social history, and family history were reviewed and updated. Past Medical History: Diagnosis Date Anemia of [...] file Tobacco Use Smoking status: Every Day Current packs/day: 1.50 Average packs/day: 1.5 packs/day for 69.0 years (103.5 ttl pk-yrs) Types: Cigarettes Smokeless tobacco: Never Tobacco comments: started age 7 Vaping Use Vaping Use: Never used Substance and Sexual Activity Alcohol use: No Drug use: No Sexual activity: Not on file Other Topics Concern Not on file Social History Narrative No pets. No mold. Social Determinants of Health Financial Resource Strain: Not on file Food Insecurity: No Food Insecurity (05/13/2023) Hunger Vital Sign Worried About Running Out of Food in the Last Year: Never true Ran Out of Food in the Last Year: Never true Transportation Needs: Not on file Physical Activity: Not on file Stress: Not on file Social Connections: Not on file Intimate Partner Violence: Not on file Housing Stability: Not on file Review of patient's allergies indicates: Allergen Reactions [...] in the morning. 30 Tablet 2 Tiotropium [place] Monohydrate 18 MCG Inhalation Capsule (Spiriva) Inhale 1 Capsule by mouth in themorning. 30 Capsule 2 Full Kit Nebulizer Set Use with Nebulizer Medication EVERY FOUR HOURS as directed. Dx Code: J44.9 1 Each 3 metFORMIN HCl ER 500 MG Oral Tablet Extended Release 24 Hour (Glucophage XR) Take 2 Tablets by mouth in the morning. 60 Tablet 11 Current Facility-Administered Medications Medication Dose Route Frequency Provider Last Rate Last Admin albuterol sulfate (PROVENTIL) (2.5 MG/3ML) 0.083% inhalation solution 2.5 mg 2.5 mg Nebulizer Q4H PRN Junaid Pyle MD 2.5 mg at 07/26/18 1521 REVIEW OF SYSTEMS: SEE HPI - otherwise negative OBJECTIVE: Filed Vitals: 06/11/23 0958 BP: 126/61 Pulse: 64 Resp: 20 Temp: 36.6 C (97.8 F) TempSrc: Tympanic SpO2: 92% Weight: 91 kg (200 lb 11.2 oz) Height: 1.74 m (5' 8.5") Wt Readings from Last 5 Encounters: 06/11/23 91 kg (200 lb 11.2 oz) 06/03/23 91 kg (200 lb 9.6 oz) 06/01/23 89.9 kg (198 lb 1.6 oz) 05/24/23 90.4 kg (199 lb 6.4 oz) 04/30/23 90.7 kg (200 lb) PHYSICAL EXAM: Constitutional: no acute distress Neuro: alert, oriented to person, place, and time, gait normal HEENT: normal: normocephalic, atraumatic; neck with no masses or tenderness; no cervical/supraclavicular lymphadenopathy CV: normal rate and rhythm, +murmur Chest: normal respiratory effort, lungs diminished throughout with expiratory wheezing Abdomen: normal: soft, bowel sounds normal, no masses, tenderness or organomegaly Extremities: +PAD BLE LABS: Component Latest Ref Rng 06/03/2023 Ferritin 30 - 400 ng/mL 42 Results for orders placed or performed in visit on 06/03/23 IRON SCREEN, INCLUDING TIBC Result Value Ref Range Iron 50 45 - 176 ug/dL Iron Binding Capacity 295 250 - 425 ug/dL Transferrin Saturation Percent 17 15 - 55 % CBC Result Value Ref Range WBC 5.99 4.00 - 10.80 K/uL RBC 3.88 4.50 - 5.25 M/uL HGB 10.6 (L) 14.0 - 16.8 g/dL HCT 36.0 (L) 40.0 - 48.4 % MCV 92.8 82.0 - 99.5 fL MCH 27.3 27.0 - 34.0 pg MCHC 29.4 32.0 - 36.0 g/dL RDW 20.2 11.5 - 15.5 % PLT 187 140 - 400 K/uL MPV 10.2 6.6 - 11.1 fL DIFFERENTIAL, AUTOMATED Result Value Ref Range WBC 5.99 4.00 - 10.80 K/uL Neutrophils % 55.0 40.0 - 75.0 % Lymphocytes % 30.9 18.0 - 42.0 % Monocytes % 10.2 1.0 - 11.0 % Eosinophils % 3.2 0.0 - 6.0 % Basophils % 0.7 0.0 - 2.0 % Absolute Neutrophils 3.30 1.80 - 7.70 K/uL Absolute Lymphocytes 1.85 1.00 - 4.80 K/ul Absolute Monocytes 0.61 0.00 - 1.10 K/uL Absolute Eosinophils 0.19 0.00 - 0.70 K/uL Absolute Basophils 0.04 0.00 - 0.20 K/uL DIFFERENTIAL, TECHNOLOGIST REVIEW Result Value Ref Range nRBCs *Note: Due to a large number of results and/or encounters for the requested time period, some results have not been displayed. A complete set of results can be found in Results Review. IMPRESSION: Anemia of chronic disease, CHARANJIT, History of lung cancer: 77 y/o male with PMH of asthma, COPD, depression, peripheral neuropathy, DLD, HTN, lung cancer, OSAand CVA on chronic anticoagulation and NSTEMI. Follows with cardiology. Was referred to GI in December for iron deficiency anemia. Currently taking Vitron C one tablet daily. Normal vitamin b12 and folic acid. EGD and colonoscopy 12/2022 unremarkable for source of bleeding. Recommended repeat colonoscopy in two years for surveillance d/t multiple polyps. Patient denies abdominal pain, nausea or vomiting. He denies any rectal bleeding or dark tarry stools. Denies significant changes in bowel habits. He denies CP, SOB. He is on Eliquis and ASA for hx of CVA since November. Denies ETOH abuse, NSAIDs. + smoke 1PPD tobacco. Had NSTEMI in 03/2023 refused CABG. Baseline Hgb 11-12. In December Hgb noted to drop to 8-9 range. Confirmed iron deficiency at that time with Ferritin of 27. Most recent Hgb 06/03/23 noted Hgb is now improving at 10.6; ferritin 42. Confirms taking Vitron C daily. Tolerating well. Denies any adverse GI side effects. Stool is slightly darker since being on the iron. Denies drenching night sweats or unexplained weight loss. Patient does report fatigue. SOB is worse. Gets very SOB with exertion. Uses PRN albuterol. Denies CP. Denies increased weakness. Denies dizziness. No interest in quitting smoking. Does not drink alcohol. PLAN: Cause of anemia likely multifactorial; anemia of chronic disease exacerbated by iron deficiency after staring Eliquis. Now improving back to baseline since starting Vitron C one tablet daily. In setting of anemia of chronic disease reasonable to keep ferritin between 100-200. Recommend continuing Vitron C one tablet daily as tolerating well. Recommended to take it in the evening to avoid taking at the same time as PPI. Continue to follow with GI. Continue to follow with Rad/Onc for lung cancer surveillance. Smoking cessation encouraged. Recommended patient follow up with PCP regarding back pain as can no longer take NSAIDs in setting of anticoagulation. RTC in three months with provider with cbc/diff, cmp, iron screen and ferritin CHRISTOPHE Casas documented in this encounter Nursing Notes * Kay Yu LPN - 06/11/2023 9:59 AM EST Patient identifed by name and birthdate Do you have any concerns about pain management for today's visit? Yes. Patient instructed to discuss pain concerns with provider during the visit today Living Will or Advance Directive for Health Care as noted on the problem list. [facility] is a way you can talk to your provider on line through e-mail. Would you like to sign up? I can activate it for you? ALREADY ACTIVE Filed Vitals: 06/11/23 0958 BP: 126/61 Pulse: 64 Resp: 20 Temp: 36.6 C (97.8 F) TempSrc: Tympanic SpO2: 92% Weight: 91 kg (200 lb 11.2 oz) Height: 1.74 m (5' 8.5") Patient was instructed to not get up on the exam table/exam chair until directed and assisted by their provider; patient is to remain seated in the chair/ wheelchair/ exam table/ exam chair for fall prevention and safety reasons. Patient is aware to have assistance to step down off exam table/exam chair with personnel. Patient voiced full comprehension of instructions. documented in this encounter Plan of Treatment Upcoming Encounters Date Type Department Care Team (Late st Contact Info) Description 06/28/2023 10:30 AM EDT Office Visit Orthopaedics [facility] [address] [place] [address] Zander Wilkins DO [address] [place] [address] 07/08/2023 10:00 AM EDT Imaging [facility] [address] [address] 07/19/2023 11:40 AM EDT Office Visit Family Practice [facility] [address] [place] [address] Johnnie Newby MD [address] [place] [address] 07/27/2023 11:00 AM EDT Office Visit Radiation Oncology, [address] [place] [address] Shawna Johnson MD [address] [place] [address] [place] [address] 07/30/2023 10:30 AM EDT Office Visit Cardiology, [facility] 132 [facility] [place] [address] Warren Montoya, 132 [facility] [place] [address] 08/30/2023 10:20 AM EDT Office Visit Podiatry [facility] 132 [facility] [place] [address] Bettye Herrmann DPM 400 [facility] [place] [address] 09/02/2023 11:00 AM EDT Laboratory Laboratory [address] [place] [id number] [address] [place] [address] 09/09/2023 11:00 AM EDT Office Visit [facility]ematology/Oncology [facility] [phone] Lexie Palmer CRNP 400 [facility] [place] [address] 09/16/2023 9:00 AM EDT Office Visit Cardiology, [facility] 132 [facility] [place] [address] Deisy Aguirre CRNP 132 [facility] [place] [address] Scheduled Orders Name Type Priority Associated Diagnoses Orde r Schedule CBC WITH WBC DIFFERENTIAL Lab STAT Anemia of chronic disease Iron deficiency anemia, unspecified iron deficiency anemia type Malignant neoplasm of right upper lobe of lung (HCC) Expected: 09/10/2023 (Approximate), Expires: 12/10/2023 COMPREHENSIVE METABOLIC PANEL Lab STAT Anemia of chronic disease Iron deficiency anemia, unspecified iron deficiency anemia type Malignant neoplasm of right upper lobe of lung (HCC) Expected: 09/10/2023 (Approximate), Expires: 12/10/2023 IRON SCREEN, INCLUDING TIBC Lab STAT Anemia of chronic disease Iron deficiency anemia, unspecified iron deficiency anemia type Malignant neoplasm of right upper lobe of lung (HCC) Expected: 09/10/2023 (Approximate), Expires: 12/10/2023 FERRITIN Lab STAT Anemia of chronic disease Iron deficiency anemia, unspecified iron deficiency anemia type Malignant neoplasm of right upper lobe of lung (HCC) Expected: 09/10/2023 (Approximate), Expires: 12/10/2023 Scheduled Procedures Name Priority Associated Diagnoses Date/Ti [...] Additional history exists CKD PHOS USE SMARTSET 89939 04/15/202403/20, 06/05/2022, 06/03/2021, Additional history exists Depression Screening 04/22/2024 04/22/2023 CKD HGB USE SMARTSET 31686 06/03/202406/03, 06/03/2023, 04/18/2023, Additional history exists COLONOSCOPY-EVERY [...] encounter Medical Devices Implanted Type Area Medical Physics Researcher Device Identifier Shelf Expiration Date Model / Serial / Lot Lens Intraoc 24.0 - [id number] - [id number] Implanted:Qty: 1 on 06/01/2017 by Nikhil Bolton MD at OR [facility] Left: Eye [employer] 07/17/2021 [id number] / [id number] / [id number] Lens Intraoc 24.0 - [id number] - [id number] Implanted:Qty: 1 on 06/08/2017 by Nikhil Bolton MD at OR [facility] Right: Eye [employer]OM[employer] 07/17/2021 [id number] / [id number] / [id number] documented as of this encounter Visit Diagnoses Diagnosis Anemia of chronic disease- Primary Anemia of other chronic disease Iron deficiency anemia, unspecified iron deficiency anemia type Malignant neoplasm of right upper lobe of lung (HCC) Malignant neoplasm of upper lobe, bronchus or lung documented in this encounter Advance Directives Documents on File Type Date Recorded Patient Instructional Technologist Expl jeanie Advance Directives and Yu Watkins 11/20/2005 ADVANCE [...] and were consensually agreed upon. Care Teams Procedures Tech Relationship Specialty Start Date End Date Johnnie Newby MD 132 [facility] [place] [address] PCP - General Family Medicine 09/13/20 documented as of this encounter
--- OUTSIDE RECORDS SUMMARY | 2023-07-12 18:47 | External Medical Summary ---
Author Name Unknown Address Unknown Organization K01:[facility] - [address] [place] [address] Laboratory Report Ordering Provider Test Date Status JUSTYNAERIN 06/03/2023 13:27:57 Final Observation Date Value Abnormality Reference (Units ) Status Ferritin 06/03/2023 13:27:57 42 30-400 (ng /mL) Final Performing Location [facility] - [address] [place] [address]
--- OUTSIDE RECORDS SUMMARY | 2023-07-12 18:47 | External Medical Summary | Summary of Care ---
Author Name Unknown Organization [facility] Address [address] [place] [address] Phone [phone] Care Team Providers Care Mft Name Role Phone Johnnie Newby MD Primary Care Provider [phone] Reason for Visit * Reason Onset Date Comments Administrative Follow-Up 05/31/2023 nebuliz er Encounter Details Date Type Department Care Team (Late st Contact Info) Description 05/31/2023 Telephone Pulmonary Medicine, [facility] 132 [facility] [place] [address] Hi Lopez MD [address] [place] [facility] [place] [address] Administrative Follow-Up (nebulizer) Allergies Active Allergy Reactions Criticality Noted Date Comments Acetaminophen 05/06/2005 headaches documented as of this encounter (statuses as of 05/31/2023) Medications Medication Sig Dispensed Refills Start Date End Date Status DAILY MULTIVITAMIN PO TABS with lycopene 0 Active BUSPAR 15 MG PO TABS Take by mouth. Uses as needed 0 Active clonazePAM (KLONOPIN) 0.5 MG Tablet Uses as needed 0 06/17/2016 Active ONETOUCH ULTRA BLUE STRPIndications:Type 2 diabetes mellitus with hemoglobin A1c goal of less than 7.0% ([facility]) TEST ONCE DAILY 100 Strip 5 03/02/2018 Active BiPAP every night at bedtime. 0 Active Vitamin B-12 1000 MCG Oral Tablet (Cyanocobalamin) Take 1 Tablet by mouth in the morning. 0 Active Isosorbide Mononitrate ER 60 MG Oral Tablet Extended Release 24 Hour (Imdur)Indications:C oronary artery disease involving [place] coronary artery without angina pectoris TAKE ONE TABLET BY MOUTH EVERY MORNING 90 Tablet 3 09/18/2022 4 Active Apixaban 5 MG Oral Tablet (Eliquis) Take 1 Tablet by mouth in the morning and 1 Tablet before bedtime. 180 Tablet 3 12/08/2022 Active Metoprolol Succinate ER 25 MG Oral Tablet Extended Release 24 Hour (toPROL XL)Indications:SVT (supraventricular tachycardia),NSVT (nonsustained ventricular tachycardia) ([facility]) TAKE ONE TABLET BY MOUTH [...] group D, by GOLD 2017 classification ([facility]) Take 1 Tablet by mouth in the morning. 30 Tablet 2 05/24/2023 4 Active Tiotropium [place] Monohydrate 18 MCG Inhalation Capsule (Spiriva) Inhale [...] as of this encounter (statuses as of 05/31/2023) Active Problems Problem Noted Date Diagnosed Date [...] tis 01/05/2014 Coronary artery disease invo lving [place] coronary artery of [place] heart without angina pectoris 11/27/2013 Tobacco abuse 11/27/2013 HTN, goal below 130/80 03/06/2009 Overview: Modified per HTN protocol #16. documented as of this encounter (statuses as of 05/31/2023) Resolved Problems Problem Noted Date Diagnosed Date [...] as of this encounter (statuses as of 05/31/2023) Immunizations Name Administration Dates Next Due COVID-19 mRNA, LNP-s, No Pre serve, 2-Dose Series (Red Zebra) 02/25/2023,02/10/2022,07/13/2020,06/17 Pneumococcal Conjugate Vacc, 13 Valent (Prevnar) [...] encounter Miscellaneous Notes * Telephone Encounter - Citlalli Espinosa LPN - 05/31/2023 2:27 PM EST Order for nebulizer and kit placed in TH with 05/24/23 OV note and order, indicated pt's preference of [facility]. documented in this encounter Plan of Treatment Upcoming Encounters Date Type Department Care Team (Late st Contact Info) Description 06/03/2023 1:00 PM EST Office Visit Gastroenterology, [facility] [address] [place] [address] Agnes Bowers CRNP [address] [place] [address] 06/28/2023 10:30 AM EDT Office Visit Orthopaedics [facility] [address] [place] [address] Zander Wilkins, DO [address] [place] [address] 06/29/2023 2:00 PM EDT Office Visit Otolaryngology [facility] [address] [place] [address] [place] M[place], DO [address] [place] [address] 07/08/2023 10:00 AM EDT Imaging Radiology [address] [place] [address] 07/13/2023 11:00 AM EDT Office Visit Radiation Oncology, [address] [place] [address] Shawna Johnson MD [address] [place] [address] [place] [address] 07/19/2023 11:40 AM EDT Office Visit Family Practice [facility] 132 [facility] [place] [address] Johnnie Newby MD [facility] [address] 08/30/2023 10:20 AM EDT Office Visit Podiatry [facility] 132 [facility] [place] [address] Bettye Herrmann DPM 400 [facility] [place] [address] 09/16/2023 9:00 AM EDT Office Visit Cardiology, [facility] 132 [facility] [place] [address] Deisy Aguirre CRNP 132 [facility] [place] [address] Scheduled Procedures Name Priority Associated Diagnoses Date/Ti [...] Additional history exists CKD PHOS USE SMARTSET 87723 04/15/202403/20, 06/05/2022, 06/03/2021, Additional history exists CKD HGB USE SMARTSET 02288 04/18/202404/18, 04/17/2023, 04/16/2023, Additional history exists Depression Screening 04/22/2024 04/22/2023 COLONOSCOPY-EVERY 2 YRS AGES 18-100 01/14/2025 01/14/2023, [...] this encounter Medical Devices Implanted Type Area Auto Damage Estimator Device Identifier Shelf Expiration Date Model / Serial / Lot Lens Intraoc 24.0 - [id number] - [id number] Implanted:Qty: 1 on 06/01/2017 by Nikhil Bolton MD at [facility] Left: Eye [employer]OMB 07/17/2021 [id number] / [id number] / [id number] Lens Intraoc 24.0 - [id number] - [id number] Implanted:Qty: 1 on 06/08/2017 by Nikhil Bolton MD at OR [facility] Right: Eye [employer]CH [employer] LOMB 07/17/2021 [id number] / [id number] / [id number] documented as of this encounter Advance Directives Documents on File Type Date Recorded Patient Heel Former Expl 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 Care Teams Mft Relationship Specialty Start Date End Date Johnnie Newby MD [address] [place] [address] PCP - General Family Medicine 09/13/20 documented as of this encounter
--- OUTSIDE RECORDS SUMMARY | 2023-07-12 18:47 | External Medical Summary | Summary of Care ---
Author Name Unknown Organization [facility] Address [address] [place] [address] Phone [phone] Care Team Providers Care Meteorologist Liaison Name Role Phone Johnnie Newby MD Primary Care Provider [phone] Reason for Visit * Reason Comments Diabetic Foot Care Encounter Details Date Type Department Care Team (Late st Contact Info) Description 05/31/2023 11:40 AM EST Office Visit Podiatry [facility] [address] [place] [address] Bettye Herrmann, DPM [address] [place] [address] Type 2 diabetes mellitus with diabetic neuropathy, without long-term current use of insulin ([facility]; Pain in both feet; Onychomycosis; Pre-ulcerative calluses [...] 24 Hour (Imdur)Indications:C oronary artery disease involving [place] coronary artery without angina pectoris TAKE ONE [...] ([facility]) Take 1 Tablet by mouth in the morning. 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 He has chronic callosities to both feet which are very tender. He also has fungal nails of which he cannot reach and trim himself. He feels the plantar first toe callus left side is the cause of his severe toepain. He had also sustained a right fifth metatarsal fracture in February and removed his camwalkeron his own. He denies pain or issues with this foot. Last PCP appt with Dr. Newby was [...] A1c goal of less than 8.0% ([facility]) 10/23/2014 ICD-10 update of inactive term ALLERGIES: [...] neuropathy, without long-term current use of insulin ([facility]) 2. Pain in both feet 3. Onychomycosis [...] used to remove all incurvating edges. A marble cutter operator was used to trim nail to appropriate length. An electrical bur was used in a side to side motion to reduce nail thickness, hypertrophic growth, and to smooth all edges. Patient tolerated well. Follow up: 3 months foot care documented in this encounter Nursing Notes * Denise Parikh LPN - 05/31/2023 11:37 AM EST Pt presents for routine diabetic nail care, no pain in feet. Does not test BSG often. documented in this encounter Plan of Treatment Upcoming Encounters Date Type Department Care Team (Late st Contact Info) Description 06/03/2023 1:00 PM EST Office Visit Gastroenterology, [facility] [address] [place] [address] Agnes Bowers CRNP [address] [place] [address] 06/28/2023 10:30 AM EDT Office Visit Orthopaedics [facility] [address] [place] [address] Zander Wilkins DO [address] [place] [address] 06/29/2023 2:00 PM EDT Office Visit Otolaryngology [facility] [address] [place] [address] Du Mota DO [address] [place] [address] 07/08/2023 10:00 AM EDT Imaging Radiology [address] 132 [facility] [place] [address] 07/13/2023 11:00 AM EDT Office Visit Radiation Oncology, [address] [place] [address] Shawna Johnson MD [address] [place] [address] [place] [address] 07/19/2023 11:40 AM EDT Office Visit Family Practice [facility] 132 [facility] [place] [address] Johnnie Newby MD 132 [facility] [place] [address] 08/30/2023 10:20 AM EDT Office Visit Podiatry [facility] 132 [facility] [place] [address] Bettye Herrmann, SAMM [address] [place] [address] 09/16/2023 9:00 AM EDT Office Visit Cardiology, [facility] 132 [facility] [place] [address] Deisy Aguirre CRNP 132 [facility] [place] [address] Scheduled Procedures Name Priority Associated Diagnoses Date/Ti me COLONOSCOPY FLEXIBLE PROXIMA L DIAGNOSTIC Recall History of colonic polyps Health Maintenance Due Date Last Done Comments Hepatitis B (1 of 3 - Risk 3-dose series) 2003 COVID-19 Vaccine ( season) 2023 02/25/2023, 02/10/2022, 07/13/2020, Additional history exists DISCUSS TOBACCO CESSATION (REFER TO SMARTSET #0887) 05/01/2023 05/01/2022, 02/13/2022 Diabetic Eye Exam 07/09/2023 [...] Additional history exists CKD PHOS USE SMARTSET 63532 04/15/202403/20, 06/05/2022, 06/03/2021, Additional history exists CKD HGB USE SMARTSET 78841 04/18/202404/18, 04/17/2023, 04/16/2023, Additional history exists Depression [...] this encounter Medical Devices Implanted Type Area Roller Painter Device Identifier Shelf Expiration Date Model / Serial / Lot Lens Intraoc 24.0 - [id number] - [id number] Implanted:Qty: 1 on 06/01/2017 by Nikhil Bolton MD at OR [facility] Left: Eye [employer] 07/17/2021 [id number] / [id number] / [id number] Lens Intraoc 24.0 - [id number] - [id number] Implanted:Qty: 1 on 06/08/2017 by Nikhil Bolton MD at OR [facility] Right: Eye [employer]OMB 07/17/2021 [id number] / [id number] / [id number] documented as of this encounter Visit Diagnoses Diagnosis Type 2 diabetes mellitus with diabetic neuropathy, without long-term current use of insulin (HCC)- Primary Pain in both feet Pain in limb Onychomycosis Dermatophytosis of nail Pre-ulcerative calluses Corns and callosities documented in this encounter Advance Directives Documents on File Type Date Recorded Patient Seismograph Chief Expl anation Advance Directives and Yu fine [...] and were consensually agreed upon. Care Teams Meteorologist Liaison Relationship Specialty Start Date End Date Johnnie Newby MD [address] [place] [address] PCP - General Family Medicine 09/13/20 documented as of this encounter
--- OUTSIDE RECORDS SUMMARY | 2023-07-12 18:47 | External Medical Summary | Summary of Care ---
Author Name Unknown Organization [facility] Address [address] [place] [address] Phone [phone] Care Team Providers Care Cso Name Role Phone Johnnie Newby MD Primary Care Provider [phone] Reason for Visit * Reason Onset Date Comments Medication Pre-auth 06/02/2023 Airsupra Roberto roved Encounter Details Date Type Department Care Team (Late st Contact Info) Description 06/02/2023 Telephone Pulmonary Medicine, [facility] [address] [employer] [place] [address] Hi Lopez MD [address] [facility] [place] [address] Medication Pre-auth (Airsupra Approved) Allergies Active Allergy Reactions Criticality Noted Date [...] 24 Hour (Imdur)Indications:C oronary artery disease involving w[place] coronary artery without angina pectoris TAKE ONE TABLET BY MOUTH EVERY MORNING 90 Tablet 3 09/18/2022 4 Active Apixaban 5 MG Oral Tablet (Eliquis) Take 1 Tablet by mouth in the morning and 1 Tablet before bedtime. 180 Tablet 3 12/08/2022 Active Metoprolol Succinate ER 25 MG Oral Tablet Extended Release 24 Hour (toPROL XL)Indications:SVT (supraventricular tachycardia),NSVT (nonsustained ventricular tachycardia) ([facility]) TAKE [...] by GOLD 2017 classification ([facility]) Take 1 Tablet by mouth in the morning. 30 Tablet 2 05/24/2023 4 Active Tiotropium [place] Monohydrate 18 MCG Inhalation Capsule (Spiriva) Inhale [...] tis 01/05/2014 Coronary artery disease invo lving wiyot coronary artery of wiyot heart without angina pectoris 11/27/2013 Tobacco abuse [...] Miscellaneous Notes * Telephone Encounter - Hi Lopez MD - 06/03/2023 8:04 AM EST If patient is on budesonide nebulizer therapy twice daily regularly then air supra is not needed. Please check with patient if he is on Pulmicort nebulization therapy regularly or not. * Telephone Encounter - Ethel Guerra LPN - 06/02/2023 2:20 PM EST This medication has been discontinued. Since approved will ask if the provider wants to reorder * Telephone Encounter - Ethel Guerra LPN - 06/02/2023 2:15 PM EST Referral # Creation Date Referral Status Status Update [id number] 05/17/2023 Authorized 05/17/2023: Status History Status Reason Referral Type Referral Reasons Referral Class Approved 1st level Precert Precert Internal To Specialty To Provider To Location/Place of Service To Department Pharmacy none none none To Vendor Referred By By Location/Place of Service By Department none Hi Lopez MD none [facility] Priority Start Date Expiration Date Referral Entered By Within 10 days (routine) 05/17/2023 05/17/2024 Micheline Gibson, YISSEL Visits Requested Visits Authorized Visits Completed Visits Scheduled [phone] Procedure Information Free Text Procedure Description Airsupra 90-80 MCG/ACT Inhalation Aerosol (Albuterol-Budesonide) documented in this encounter Plan of Treatment Upcoming Encounters Date Type Department Care Team (Late st Contact Info) Description 06/03/2023 1:00 PM EST Office Visit Gastroenterology, [facility] [address] [address] Agnes Bowers CRNP [address] [place] [address] 06/24/2023 10:15 AM EST Imaging Radiology [address] [place] [address] 06/28/2023 10:30 AM EDT Office Visit Orthopaedics [facility] [address] [place] [address] Zander Wilkins, [address] [place] [address] 07/08/2023 10:00 AM EDT Imaging Radiology [address] [place] [address] 07/13/2023 11:00 AM EDT Office Visit Radiation Oncology, [address] [place] [address] Shawna Johnson MD [address] [place] [address] [place] [address] 07/19/2023 11:40 AM EDT Office Visit Family Practice [facility] [address] [place] [address] Johnnie Newby MD [address] [place] [address] 08/30/2023 10:20 AM EDT Office Visit Podiatry [facility] [address] [place] [address] Bettye Herrmann, SAMM [address] [place] [address] [place] [address] 09/16/2023 9:00 AM EDT Office Visit Cardiology, [facility] [address] [place] [address] Deisy Aguirre, CHRISTOPHE [address] [place] [address] Scheduled Procedures Name Priority Associated Diagnoses Date/Ti me COLONOSCOPY FLEXIBLE PROXIMA L DIAGNOSTIC Recall History of colonic polyps Health Maintenance Due Date Last Done Comments Hepatitis B (1 of 3 - Risk 3-dose series) 2003 COVID-19 Vaccine ( season) 2023 02/25/2023, 02/10/2022, 07/13/2020, Additional history exists DISCUSS TOBACCO CESSATION (REFER TO SMARTSET #4093) 05/01/2023 05/01/2022, 02/13/2022 Diabetic Eye Exam 07/09/2023 [...] Additional history exists CKD PHOS USE SMARTSET 02104 04/15/202403/20, 06/05/2022, 06/03/2021, Additional history exists CKD HGB USE SMARTSET 25143 04/18/202404/18, 04/17/2023, 04/16/2023, Additional history exists Depression [...] this encounter Medical Devices Implanted Type Area Movable Bulkhead Installer Device Identifier Shelf Expiration Date Model / Serial / Lot Lens Intraoc 24.0 - [id number] - [id number] Implanted:Qty: 1 on 06/01/2017 by Nikhil Bolton MD at OR [facility] Left: Eye [employer]CH [employer]OM[employer] 07/17/2021 [id number] / [id number] / [id number] Lens Intraoc 24.0 - [id number] - [id number] Implanted:Qty: 1 on 06/08/2017 by Nikhil Bolton MD at OR [facility] Right: Eye BAUSCH [employer] LOMB 07/17/2021 [id number] / [id number] / [id number] documented as of this encounter Advance Directives Documents on File Type Date Recorded Patient Javascript Front End Developer Expl 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 Care Teams Cso Relationship Specialty Start Date End Date Johnnie Newby MD [address] [place] [address] PCP - General Family Medicine 09/13/20 documented as of this encounter
--- OUTSIDE RECORDS SUMMARY | 2023-07-12 18:47 | External Medical Summary ---
Author Name Unknown Address Unknown Organization [facility] [address] [place] [id number] Laboratory Report Ordering Provider Test Date Status ERIN JANSEN 06/03/2023 13:27:57 Final Observation Date Value Abnormality Reference (Units ) Status SYNC LEUKOCYTES IN BLOOD BY AUTOMATED COUNT 06/03/2023 13:27:57 5.99 4.00-10.80 (K/uL) Final Segs 06/03/2023 13:27:57 55.0 40.0-75.0 (%) Final Lymphs % 06/03/2023 13:27:57 30.9 18.0-42.0 (%) Final Monos 06/03/2023 13:27:57 10.2 1.0-11.0 (%) Final Eosinophils 06/03/2023 13:27:57 3.2 0.0-6.0 (%) Final Basos 06/03/2023 13:27:57 0.7 0.0-2.0 (%) Final Absolute Segs 06/03/2023 13:27:57 3.30 1.80-7.70 (K/uL) Final Lymphs, absolute 06/03/2023 13:27:57 1.85 1.00-4.80 (K/ul) Final Monos, Abs 06/03/2023 13:27:57 0.61 0.00-1.10 (K/uL) Final Eos, Abs 06/03/2023 13:27:57 0.19 0.00-0.70 (K/uL) Final Basos, Abs 06/03/2023 13:27:57 0.04 0.00-0.20 (K/uL) Final Performing Location [facility] [place] [address]
--- OUTSIDE RECORDS SUMMARY | 2023-07-12 18:47 | External Medical Summary ---
Author Name Unknown Address Unknown Organization [facility] [place] [id number] Laboratory Report Ordering Provider Test Date Status JUSTYNAERIN 06/03/2023 13:27:57 Final Observation Date Value Abnormality Reference (Units ) Status Nucleated erythrocytes/100 leukocytes [Ratio] in Blood by Automated count 06/03/2023 13:27:57 Final Performing Location [facility] [address] [place] [id number]
--- OUTSIDE RECORDS SUMMARY | 2023-07-12 18:47 | External Medical Summary | Summary of Care ---
Author Name Unknown Organization [facility] Address [address] [place] [address] Phone [phone] Care Team Providers Care Canvas Marker Name Role Phone Johnnie Newby MD Primary Care Provider [phone] Reason for Visit * Reason Comments Follow Up Encounter Details Date Type Department Care Team (Latest Contact Info) Description 05/24/2023 3:00 PM EST Office Visit Pulmonary Medicine, [facility] [address] [facility] [place] [address] Hi Lopez MD [address] [place] [address] COPD (chronic obstructive pulmonary disease) with chronic bronchitis*; COPD, group B, by GOLD 2017 classification ([facility]); COPD, group D, by GOLD 2017 classification ([facility]) Allergies Active Allergy Reactions Criticality Noted Date Comments Acetaminophen 05/06/2005 headaches documented as of this encounter (statuses as of 05/24/2023) Medications Medication Sig Dispensed Refills Start Date [...] 24 Hour (Imdur)Indications: Coronary artery disease involving chevak coronary artery without angina pectoris TAKE ONE [...] 30 Tablet 2 05/24/2023 4 Active Tiotropium Mountain Monohydrate 18 MCG Inhalation Capsule (Spiriva) Inhale 1 Capsule by mouth in the morning. 30 Capsule 2 05/24/2023 4 Active Tiotropium Mountain Monohydrate 18 MCG Inhalation Capsule (Spiriva) INHALE ONE CAPSULE VIA HANDIHALER EVERY MORNING. DO NOT SWALLOW CAPSULE. 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 32.1 g 2 05/13/2023 4 Discontinu ed(End of Procedure) Hospital, Clinic, or Other Facility Administered Medication Ordered Dose Route Frequency Start Date End Date Status albuterol sulfate (PROVENTIL) (2.5 MG/3ML) 0.083% inhalation solution 2.5 mgIndications:COPD, severe ([facility]) 2.5 mg NEBULIZER Q4H PRN 07/08/2018 Active documented as of this encounter (statuses as of 05/24/2023) Active Problems Problem Noted Date Diagnosed Date [...] tis 01/05/2014 Coronary artery disease invo lving chevak coronary artery of chevak heart without angina pectoris 11/27/2013 Tobacco abuse 11/27/2013 HTN, goal below 130/80 03/06/2009 Overview: Modified per HTN protocol #16. documented as of this encounter (statuses as of 05/24/2023) Resolved Problems Problem Noted Date Diagnosed Date [...] as of this encounter (statuses as of 05/24/2023) Immunizations Name Administration Dates Next Due COVID-19 [...] Sign Reading Time Taken Comments Blood Pressure 108/58 05/24/2023 2:48 PM EST Pulse 77 05/24/2023 2:48 PM EST Temperature 35.9 C (96.6 F) 05/24/2023 2:48 PM ES T Respiratory Rate 22 05/24/2023 2:48 PM EST Oxygen Saturation 94% 05/24/2023 2:49 PM EST ra, amb Inhaled Oxygen Concentration - - Weight 90.4 kg (199 lb 6.4 oz) 05/24/2023 2:48 P M EST Height 174 cm (5' 8.5") 05/24/2023 2:48 PM EST Body Mass Index 29.88 05/24/2023 2:48 PM EST documented in this encounter Functional [...] as of this encounter Progress Notes * Hi Lopez MD - 05/24/2023 2:53 PM EST 05/24/2023 Pulmonary Medicine, [address] [place] [address] [id number] Walter Don 1945 male 77 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 Patient describes improved respiratory symptoms status following switch rescue albuterol 2 air supra. However, not covered by patient's insurance. Describes smoker's cough. Denies nocturnal awakeningdue to respiratory symptoms. Compliant with Advair and Spiriva, wants generic alternative due to financial concerns. Physical examination is significant for class 3 throat, improved air entry with scattered coarse wheezing without dullness, regular cardiac rhythm, no evidence of volume overload and nonlateralizing Neuro examination. Smoking cessation counseling was provided again. Patient is not ready to commit but is agreeable todiscussing cessation efforts. Current bronchodilator regimen will be optimized to include generic alternatives to Advair / Spiriva along with Pulmicort nebulizer therapy twice daily as needed as add on while continuing use of rescue albuterol therapy. Daliresp will be continued as well. Importance of maintaining physical activity status was discussed as well. Review of pulmonary diagnostic workup/data: PFT shows evidence of moderate obstructive ventilatory impairment. There is significant bronchodilator response. Lung volumes are suggestive of air trapping. Uncorrected diffusion capacity is severely decreased at 41% of predicted. XR CHEST 1 VIEW - 04/15/2023 10:31 pm FINDINGS: Catheters/tubes/devices/foreign bodies: None. Low lung volumes. No dense consolidation or effusion. Patchy bibasilar ground- glass opacities with nodular appearance in the peripheral left mid lung overlying the left 4th rib end. No evidence of pneumothorax. Cardiomediastinal silhouette is within normal limits. Osseous structures are unremarkable. IMPRESSION IMPRESSION: 1. Hypoventilatory changes with patchy bibasilar airspace disease which may represent atelectasis or developing pneumonia. 2. Recommend follow-up chest CT for left midlung nodular opacity likely corresponding with nodule seen on prior CT. Assessment COPD (chronic obstructive pulmonary disease) with chronic bronchitis (HCC) (Primary) Smoking cessation counseling was provided again. Patient is not ready to commit but is agreeable todiscussing cessation efforts. Current bronchodilator regimen will be optimized to include generic alternatives to Advair / Spiriva along with Pulmicort nebulizer therapy twice daily as needed as add on while continuing use of rescue albuterol therapy. Daliresp will be continued as well. Importance of maintaining physical activity status was discussed as well. Adenocarcinoma of right lung (HCC) Follow-up CT scan within next 8 weeks. Tobacco use disorder Patient counseled on smoking cessation but not ready to quit and was encouraged to cut down. He will call the clinic if he needs assistance with materials or medications that will help him quit. SMOKING CESSATION: Pt was educated on smoking cessation and/or tobacco cessation for 4 minutes. 1. The pt was instructed as to the detrimental effects of Tobacco & the serious impact that it has upon their health, especially their current condition, Cancer. 2. Discussed that smoking affects not only the patients health but the health of their family members, children and others exposed to second hand tobacco smoke. 3. Discussed with the patient that the advantages of tobacco cessation are that it will slow progression of their underlying disease, improve lung function and reduce risk for development of cancer and other tobacco related illnesses. 4. Discussed the treatment options with the patient that would include: -Patient Education -Use of nicotine patches gum and losenges -Prescription medications -Pertinent information from Cancer [employer]'s Free Quitline. -Referral to [facility] of [facility]/[employer] Free Quitline . YISSEL treated with BiPAP Patient is using his BiPAP as recommended and was encouraged. He feels refreshed on waking up and has energy to do more. Patient encouraged to use BiPAP even during the day when napping or if he starts noticing increasing work of breathing. Compliance was emphasized. Follow Up: Return in about 2 months (around 07/23/2023) for Clinic Visit. | For: Clinic Visit | Check-out note: COPD Adenocarcinoma right lung OSAS, on BiPAP therapy Active smoker Plan: Continue with current management plan including Advair (switch to Generic), Spiriva, Daliresp. AirSupra not covered, switch to rescue Albuterol and Pulmicort Nebs PRN CT chest without contrast May 2023, follow-up left mid lung nodule Pulmonary clinic follow-up in 2 months Hi Lopez MD Subjective CC: Chief Complaint Patient presents with Follow Up HPI: Nursing Notes: Janel Sosa LPN 05/24/23 [id number] Addendum Pt is here for f/u COPD, adenocarcinoma lung, YISSEL on BIPAP. Interm History/Respiratory Symptoms Cough: occasional, dry Hemoptysis: no Sinus Symptoms: "constant drainage" Hospitalizations: [facility] 04/15-04/18/23 chest pain ED Trips: 04/15/23 Triggers: humidity, exertion, cold weather Nocturnal: no problems, sleeps with head slightly elevated CPAP/BiPAP/O2: BIPAP at night Flu Vaccine: 2022 Pneumovax: 2016 Prevnar: 2013 COVID 19: x 4 Mmrc Cat Question 05/24/2023 2:54 PM EST - Filed by Janel Sosa LPN When do you become breathless? (4) I am too breathless to leave the house or I am breathless when dressing How frequently do you cough? (2) Do you have phlegm in your chest? (0) - I have no phlegm (mucus) in my chest Is your chest tight? (0) - My chest does not feel tight at all How breathless do you become when walking up a hill or steps? (5) - When I walk up a hill or one flight of stairs I am very breathless How limited are you doing activities at home? (4) How confident are you leaving home with your lung condition? (0) - I am confident leaving my home despite my condition How soundly do you sleep? (0) - I sleep soundly How much energy do you have? (4) Total MMRC Score (range: 0 - 4) 4 Total CAT Score (range: 0 - 40) 15 Objective Filed Vitals: 05/24/23 1448 05/24/23 1449 BP: 108/58 Pulse: 77 Resp: 22 Temp: 35.9 C (96.6 F) TempSrc: Tympanic SpO2: 96% 94% Weight: 90.4 kg (199 lb 6.4 oz) Height: 1.74 m (5' 8.5") Exam: Const: No signs of acute distress present. Head/Face: Normal on inspection. Eyes: Conjunctivae clear. Pupils equal round and reactive to light. ENMT: Oropharynx: No erythema, exudate or masses. Posterior pharynx is normal. Neck: Supple and symmetric. Resp: Respiratory examination as outlined above CV: Rate is regular. Rhythm is regular. No heart murmur appreciated. Extremities: No edema of the lower limbs bilaterally. Abdomen: Positive bowel sounds. Palpation of the abdomen reveals softness, but no distension or tenderness. No palpable hepatosplenomegaly. Musculo: Walks with a normal gait. Skin: Skin is warm and dry. Neuro: Coordination normal. No involuntary movement. Psych: Patient's attitude is cooperative. Mood is normal. Affect is normal. Tests reviewed with the patient: XR FOOT 3 OR MORE VIEWS Result Date: 04/29/2023 IMPRESSION: 1. Mild degenerative changes at the first metatarsal phalangeal joint. Mild soft tissueswelling about the joint space medially. 2. Transversely oriented fracture proximal aspect 5th metatarsal. Fracture site remains visible. PROCEDURE INFORMATION: Exam: XR Left Foot Exam date and time: 04/23/2023 10:43 AM Age: 77 years old Clinical indication: Nondisplaced fracture of fifth metatarsal bone, right foot, subsequent encounter for fracture with routine healing; Additional info: FX follow up TECHNIQUE: Imaging protocol: Radiologic exam of the left foot. Views: 3 or more views. COMPARISON: CR XR FOOT 3 OR MORE VIEWS 04/02/2023 10:13 AM FINDINGS: Bones/joints: Hindfoot-midfoot and midfoot-forefoot articulations normal. Metatarsals and phalanges without an acut e process. Subtalar and tibiotalar joint normal. Mild degenerative changes at the first metatarsal phalangeal joint. Mild soft tissue swelling about the joint space medially. Question mildly displaced fracture proximal aspect proximal phalanx 5th ray. Correlate regarding tenderness. Spur formation at the insertion of the Achilles' tendon . Soft tissues: See "Bones/joints" finding. IMPRESSION: 1.Mild degenerative changes at the first metatarsal phalangeal joint. Mild soft tissue swelling aboutthe joint space medially. 2. Question mildly displaced fracture proximal aspect proximal phalanx 5th ray. Correlate regarding tenderness. Soft tissue swelling 3. Spur formation at the insertion of the Achilles' tendon . THIS DOCUMENT HAS BEEN ELECTRONICALLY SIGNED BY KWAN SUNG MD XR CHEST 1 VIEW Result Date: 04/16/2023 IMPRESSION: 1. Hypoventilatory changes with patchy bibasilar airspace disease which may represent atelectasis or developing pneumonia. 2. Recommend follow-up chest CT for left midlung nodular opacity likely corresponding with nodule seen on prior CT. Radiology results reporting pathway was initiated given that a follow-up recommendation was provided and to activate [place] [address] patient communication. XR FOOT 3 OR MORE VIEWS Result Date: 04/05/2023 IMPRESSION Nondisplaced fracture of the 5th metatarsal, in unchanged alignment. XR FOOT 3 OR MORE VIEWS Result Date: 03/15/2023 IMPRESSION: 1. Transverse fracture at the base of the 5th metatarsal represents an avulsion injury at the insertion of the peroneus brevis muscle. No appreciable periosteal response. Minimally displaced. 2. Mild degenerative changes at the first metatarsal phalangeal joint. Mild soft tissue swelling about the joint space medially. THIS DOCUMENT HAS BEEN ELECTRONICALLY SIGNED BY KWAN SUNG MD [facility] AORTIC DUPLEX EVAL-COMPLETE Result Date: 12/31/2022 : There is evidence of a 4.0 cm abdominal aortic aneurysm. Color Doppler imaging demonstrates flow consistent with a patent lumen at and distal to the aortic aneurysm. XR FOOT 3 OR MORE VIEWS Result Date: 12/19/2022 IMPRESSION Sclerosis with focal lucency within the navicular bone could be related to stress fracture Available Radiologic data was reviewed by me in PACS. The images were shown to the patient and findings were discussed with the patient. HOME MEDICATIONS: Budesonide 0.25 MG/2ML Inhalation Suspension (Pulmicort) Roflumilast 500 MCG Oral Tablet (Daliresp) Tiotropium Mountain Monohydrate 18 MCG Inhalation Capsule (Spiriva) Wixela Inhub 250-50 MCG/ACT Inhalation Aerosol Powder Breath Activated (Fluticasone-Salmeterol) Gabapentin 300 MG Oral Capsule (Neurontin) Mirtazapine 15 MG Oral Tablet (Remeron) risperiDONE 0.5 MG Oral Tablet (RisperDAL) Colchicine 0.3 MG OR TABS FLUoxetine HCl 20 MG Oral Capsule (PROzac) metFORMIN HCl 1000 MG Oral Tablet (Glucophage) Clopidogrel Bisulfate 75 MG Oral Tablet (pLAVix) Nitroglycerin 0.4 MG Sublingual Tablet Sublingual (Nitrostat) Omeprazole 20 MG Oral Capsule Delayed Release (PriLOSEC) busPIRone HCl 10 MG Oral Tablet (Buspar) Fluticasone Propionate 50 MCG/ACT Nasal Suspension (Flonase) Furosemide 40 MG Oral Tablet (Lasix) Colchicine 0.6 MG Oral Tablet Vitron-C 65-125 MG Oral Tablet (Iron-Vitamin C 65-125 mg per tab) Atorvastatin Calcium 80 MG Oral Tablet (Lipitor) Metoprolol Succinate ER 25 MG Oral Tablet Extended Release 24 Hour (toPROL XL) Apixaban 5 MG Oral Tablet (Eliquis) Isosorbide Mononitrate ER 60 MG Oral Tablet Extended Release 24 Hour (Imdur) Vitamin B-12 1000 MCG Oral Tablet (Cyanocobalamin) BiPAP ONETOUCH ULTRA BLUE STRP clonazePAM (KLONOPIN) 0.5 MG Tablet BUSPAR 15 MG PO TABS DAILY MULTIVITAMIN PO TABS albuterol sulfate (PROVENTIL) (2.5 MG/3ML) 0.083% inhalation solution 2.5 mg ROS: No reported history of Hemoptysis, Hematemesis, Melena No reported history of Dysuria, Hematuria, Flank Pain No reported history of chronic headache, seizures No reported history of Fall or trauma . No reported history of recent change in weight or appetite. Past Medical History: Diagnosis Date Anemia of [...] performed by Warren Patel MD at ENDOSCOPY [facility] COLONOSCOPY THRU STOMA, W/BIOPSY 05/28/2010 andenomatous tissue--repeat in 3 months COLONOSCOPY THRU STOMA, W/BIOPSY 09/18/2010 adenomatous-repeat colonoscopy in 3-6 months COLONOSCOPY THRU STOMA, W/BIOPSY 04/09/2011 polyps x3 , path shows adenomatous tissue repeat in 1 years COLONOSCOPY, DIAGNOSTIC (RECTUM) 05/20/2016 adenomatous polyps, poor prep, diverticulosis, repeat 3 yrs/[facility] COLONOSCOPY, DIAGNOSTIC (RECTUM) 06/06/2019 hemorrhoids/diverticulosis sigmoid and descending colon/small AVM/biopsies show adenomatous polyps/recall 6-9 months/COLONOSCOPY FLEXIBLE PROXIMAL DIAGNOSTIC performed by Clemencia Marinelli MD atENDOSCOPY [facility] COLONOSCOPY, DIAGNOSTIC (RECTUM) 03/05/2022 benign adenomatous polyp, repeat 1 yr / COLONOSCOPY FLEXIBLE PROXIMAL DIAGNOSTIC performed by Clemencia Marinelli MD at ENDOSCOPY [facility] COLONOSCOPY, DIAGNOSTIC (RECTUM) 01/14/2023 hemorrhoids/diverticulosis/biopsies show hyperplastic polyps/recall 2 years/COLONOSCOPY FLEXIBLE PROXIMAL DIAGNOSTIC performed by Destiny Mojica DO at ENDOSCOPY [facility] CORONARY ANGIOGRAPHY W/LEFT HEART CATH Right 04/16/2023 CORONARY ANGIOGRAPHY W/LEFT HEART CATH performed by Maria G Lance MD at CARDIAC LABS [facility] DESTROY LUMBAR SACRAL NERVE IMAGING ADD'L 01/27/2023 DESTROY LUMBAR SACRAL NERVE IMAGING ADD'L performed by Pb Alexander DO at OR [facility] DESTROY LUMBAR SACRAL NERVE IMAGING SINGLE 01/27/2023 DESTROY LUMBAR SACRAL NERVE IMAGING SINGLE performed by Pb Alexander DO at [facility] EGD, FLEXIBLE, DIAGNOSTIC 01/14/2023 gsatric polyp/ESOPHAGOGASTRODUODENOSCOPY (EGD), FLEXIBLE, TRANSORAL, DIAGNOSTIC performed by Phong Mojica DO at ENDOSCOPY [facility] L-/S-SPINE PARAVERTEBRAL FACET INJ,1 LEVEL 11/25/2022 L-/S-SPINE PARAVERTEBRAL FACET INJ, 1 LEVEL performed by Pb Alexander DO at OR [facility] L-/S-SPINE PARAVERTEBRAL FACET INJ,1 LEVEL 01/06/2023 L-/S-SPINE PARAVERTEBRAL FACET INJ, 1 LEVEL performed by Pb Alexander, DO at OR [facility] L-/S-SPINE PARAVERTEBRL FACET INJ,2 LEVELS 11/25/2022 L-/S-SPINE PARAVERTEBRAL FACET INJ, 2 LEVELS performed by Pb Alexander DO at OR [facility] L-/S-SPINE PARAVERTEBRL FACET INJ,2 LEVELS 01/06/2023 L-/S-SPINE PARAVERTEBRAL FACET INJ, 2 LEVELS performed by Pb Zander Alexander DO at OR [facility] MISCELLANEOUS ORDER ([facility]) 1998 henria repair OTHER (INFORMATION) pilonidal cyst removal OTHER (INFORMATION) repair of bilateral shoulder for bone spur and repair of torn muscles right shoulder REMOVE CATARACT, INSERT LENS PROSTH Left 06/01/2017 left EXTRACAPSULAR CATARACT REMOVAL WITH INTRAOCULAR LENS performed by Nikhil Bolton MD at [facility] REMOVE CATARACT, INSERT LENS PROSTH Right 06/08/2017 right EXTRACAPSULAR CATARACT REMOVAL WITH INTRAOCULAR LENS performed by Nikhil Bolton MD at OR [facility] Social History Socioeconomic History Marital status: Tobacco [...] of Health Food Insecurity: No Food Insecurity (05/13/2023) Hunger Vital Sign Worried About Running Out of Food in the Last Year: Never true Ran Out of Food in the Last Year: Never true Family History Problem Relation Age of Onset Cancer Mother colon Gastro-intestinal disorder Sister crohn's No Known Problems Father Heart disease Brother Heart disease Brother Review of patient's allergies indicates: Allergen Reactions Tylenol [Acetaminophen] headaches documented in this encounter Nursing Notes * Janel Sosa LPN - 05/24/2023 2:43 PM EST Pt is here for f/u COPD, adenocarcinoma lung, YISSEL on BIPAP. Interm History/Respiratory Symptoms Cough: occasional, dry Hemoptysis: no Sinus Symptoms: "constant drainage" Hospitalizations: [facility] 04/15-04/18/23 chest pain ED Trips: 04/15/23 Triggers: humidity, exertion, cold weather Nocturnal: no problems, sleeps with head slightly elevated CPAP/BiPAP/O2: BIPAP at night Flu Vaccine: 2022 Pneumovax: 2016 Prevnar: 2014 COVID 19: x 4 Mmrc Cat Question 05/24/2023 2:54 PM EST - Filed by Janel Sosa LPN When do you become breathless? (4) I am too breathless to leave the house or I am breathless when dressing How frequently do you cough? (2) Do you have phlegm in your chest? (0) - I have no phlegm (mucus) in my chest Is your chest tight? (0) - My chest does not feel tight at all How breathless do you become when walking up a hill or steps? (5) - When I walk up a hill or one flight of stairs I am very breathless How limited are you doing activities at home? (4) How confident are you leaving home with your lung condition? (0) - I am confident leaving my home despite my condition How soundly do you sleep? (0) - I sleep soundly How much energy do you have? (4) Total MMRC Score (range: 0 - 4) 4 Total CAT Score (range: 0 - 40) 15 documented in this encounter Plan of Treatment Upcoming Encounters Date Type Department Care Team (Late st Contact Info) Description 05/31/2023 11:40 AM EST Office Visit Podiatry [facility] [address] [facility] [place] [address] Bettye Herrmann, SAMM [address] [place] [address] [place] [address] 06/28/2023 10:30 AM EDT Office Visit Orthopaedics [facility] [address] [place] [address] Zander Wilkins, DO [address] [place] [address] 06/29/2023 2:00 PM EDT Office Visit Otolaryngology [facility] [address] [place] [address] Du Mota, DO [address] [place] [address] 07/08/2023 10:00 AM EDT Imaging Radiology [address] [place] [address] 07/13/2023 11:00 AM EDT Office Visit Radiation Oncology, [place] [address] [facility] [place] [address] Shawna Johnson MD [facility] [place] [address] 07/19/2023 11:40 AM EDT Office Visit Family Practice [facility] [address] [place] [address] Johnnie Newby MD [address] [place] [address] 09/02/2023 10:00 AM EDT Office Visit Gastroenterology, [facility] [address] [place] [address] Agnes Bowers CRNP [address] [place] [address] 09/16/2023 9:00 AM EDT Office Visit Cardiology, [facility] [address] [place] [address] Deisy Aguirre CRNP [address] [place] [address] Scheduled Procedures Name Priority Associated Diagnoses Date/Ti [...] Additional history exists CKD PHOS USE SMARTSET 27386 04/15/202403/20, 06/05/2022, 06/03/2021, Additional history exists CKD HGB USE SMARTSET 26337 04/18/202404/18, 04/17/2023, 04/16/2023, Additional history exists Depression [...] encounter Medical Devices Implanted Type Area Tool Repair Technician Device Identifier Shelf Expiration Date Model / Serial / Lot Lens Intraoc 24.0 - [id number] - [id number] Implanted:Qty: 1 on 06/01/2017 by Nikhil Bolton MD at OR [facility] Left: Eye [employer] 07/17/2021 [id number] / [id number] / [id number] Lens Intraoc 24.0 - [id number] - [id number] Implanted:Qty: 1 on 06/08/2017 by Nikhil Bolton MD at OR [facility] Right: Eye [employer] 07/17/2021 [id number] / [id number] / [id number] documented as of this encounter Visit Diagnoses Diagnosis COPD (chronic obstructive pulmonary disease) with chronic bronchitis- Primary Obstructive chronic bronchitis without exacerbation COPD, group B, by GOLD 2017 classification (HCC) COPD, group D, by GOLD 2017 classification (HCC) documented in this encounter Advance Directives Documents on File Type Date Recorded 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 Care Teams Canvas Marker Relationship Specialty Start Date End Date Johnnie Newby MD [address] [place] [address] PCP - General Family Medicine 09/13/20 documented as of this encounter
--- OUTSIDE RECORDS SUMMARY | 2023-07-12 18:47 | External Medical Summary | Summary of Care ---
Author Name Unknown Organization [facility] Address [address] [place] [address] Phone [phone] Care Team Providers Care Civil Manager Name Role Phone Johnnie Newby MD Primary Care Provider [phone] Reason for Referral * Precert (Within 10 days (routine)) - Pending Review Specialty Diagnoses / Procedures Referred By Treva judd Referred To Contact Radiology Diagnoses Asymmetrical sensorineural hearing loss Procedures MRI INTERNAL AUDITORY CANAL W WO CONTRAST Jerman Mota DO [address] [place] [address] Referral ID Status Reason Start Date Expiration Date V isits Requested Visits Authorized [id number] Pending Review 06/15/2023 999 999 Reason for Visit * Reason Comments NEW PATIENT Encounter Details Date Type Department Care Team (Latest Contact Info) Description 06/01/2023 1:00 PM EST Office Visit Otolaryngology [facility] [address] [place] [address] Jerman Mota DO [address] [place] [place] [address] Asymmetrical sensorineural hearing loss*; Nasal congestion Allergies Active Allergy Reactions Criticality Noted Date Comments Acetaminophen 05/06/2005 headaches documented as of this encounter (statuses as of 06/01/2023) Medications Medication Sig Dispensed Refills Start Date [...] 24 Hour (Imdur)Indications:C oronary artery disease involving eek coronary artery without angina pectoris TAKE ONE [...] 30 Tablet 2 05/24/2023 4 Active Tiotropium [place] Monohydrate 18 MCG Inhalation Capsule (Spiriva) Inhale [...] as of this encounter (statuses as of 06/01/2023) Active Problems Problem Noted Date Diagnosed Date [...] tis 01/05/2014 Coronary artery disease invo lving eek coronary artery of eek heart without angina pectoris 11/27/2013 Tobacco abuse 11/27/2013 HTN, goal below 130/80 03/06/2009 Overview: Modified per HTN protocol #16. documented as of this encounter (statuses as of 06/01/2023) Resolved Problems Problem Noted Date Diagnosed Date [...] as of this encounter (statuses as of 06/01/2023) Immunizations Name Administration Dates Next Due COVID-19 [...] Pressure - - Pulse - - Temperature 36.1 C (96.9 F) 06/01/2023 12:[address] Respiratory Rate - - Oxygen Saturation - - Inhaled Oxygen Concentration - - Weight 89.9 kg (198 lb 1.6 oz) 06/01/2023 12:57 PM EST Height 174 cm (5' 8.5") 06/01/2023 12:57 PM EST Body Mass Index 29.68 06/01/2023 12:57 PM EST documented in this encounter Functional [...] as of this encounter Progress Notes * Jerman Mota, - 06/01/2023 1:06 PM EST 06/01/2023 HISTORY OF PRESENT ILLNESS This 77 year old YO male is seen at the request of Johnnie Newby MD for the evaluation of asymmetric hearing loss with significantly worse discrimination scores in the left ear versus the right. This happened over the past several years. I did review serial audiograms from an outside marketing services manager. He has had a gradual decline in the speech discrimination in the left ear versus the right. His most recent audiogram was in April of 2023. This revealed 88% speech discrim at 65 decibels in the right and 52% at 70 decibels on the left no prior otologic surgery.. Also complaining of some decreased sense of smell. Problem List Patient Active Problem List Diagnosis Code HTN, goal below 130/80 I10 Coronary artery disease involving eek coronary artery of eek heart without angina pectoris I25.10 Tobacco abuse Z72.0 PTSD (post-traumatic stress disorder) F43.10 Gastroesophageal reflux disease without esophagitis K21.9 Type 2 diabetes mellitus with hemoglobin A1c goal of less than 8.0% (HCC) E11.9 YISSEL treated with BiPAP G47.33 Peripheral arterial disease (HCC) I73.9 Dyslipidemia E78.5 COPD, group D, by GOLD 2017 classification ([facility]) J44.9 Carotid stenosis, non-symptomatic I65.29 NSVT (nonsustained ventricular tachycardia) ([facility]) I47.29 Aortic valve stenosis I35.0 AAA (abdominal aortic aneurysm) ([facility]) I71.40 Chronic kidney disease, stage 3a (HCC) N18.31 Malignant neoplasm of right upper lobe of lung (HCC) C34.11 Depression with anxiety F41.8 History of cardioembolic cerebrovascular accident (CVA) Z86.73 Overweight (BMI 25.0-29.9) E66.3 Gouty arthropathy M10.9 Diabetic peripheral neuropathy (HCC) E11.42 Diverticulosis of large intestine without hemorrhage K57.30 Anemia of chronic disease D63.8 Closed nondisplaced fracture of fifth metatarsal bone of right foot with routine healing S92.354D Past Medical History: Diagnosis Date Anemia of [...] performed by Warren Patel MD at ENDOSCOPY [facility] COLONOSCOPY THRU STOMA, W/BIOPSY 05/28/2010 andenomatous tissue--repeat in 3 months COLONOSCOPY THRU STOMA, W/BIOPSY 09/18/2010 adenomatous-repeat colonoscopy in 3-6 months COLONOSCOPY THRU STOMA, W/BIOPSY 04/09/2011 polyps x3 , path shows adenomatous tissue repeat in 1 years COLONOSCOPY, DIAGNOSTIC (RECTUM) 05/20/2016 adenomatous polyps, poor prep, diverticulosis, repeat 3 yrs/[facility] COLONOS[facility], DIAGNOSTIC (RECTUM) 06/06/2019 hemorrhoids/diverticulosis sigmoid and descending colon/small AVM/biopsies show adenomatous polyps/recall 6-9 months/COLONOSCOPY FLEXIBLE PROXIMAL DIAGNOSTIC performed by Clemencia Marinelli MD at[facility]COPY [facility] COLONOSCOPY, DIAGNOSTIC (RECTUM) 03/05/2022 benign adenomatous polyp, repeat 1 yr / COLONOSCOPY FLEXIBLE PROXIMAL DIAGNOSTIC performed by Clemencia Marinelli MD at ENDOSCOPY [facility] COLONOSCOPY, DIAGNOSTIC (RECTUM) 01/14/2023 hemorrhoids/diverticulosis/biopsies show hyperplastic polyps/recall 2 years/COLONOSCOPY FLEXIBLE PROXIMAL DIAGNOSTIC performed by Destiny Mojica DO at ENDOSCOPY [facility] CORONARY ANGIOGRAPHY W/LEFT HEART CATH Right 04/16/2023 CORONARY ANGIOGRAPHY W/LEFT HEART CATH performed by Maria G Lance MD at CARDIAC LABS [facility] DESTROY LUMBAR SACRAL NERVE IMAGING ADD'L 01/27/2023 DESTROY LUMBAR SACRAL NERVE IMAGING ADD'L performed by Pb Alexander DO at OR [facility] DESTROY LUMBAR SACRAL NERVE IMAGING SINGLE 01/27/2023 DESTROY LUMBAR SACRAL NERVE IMAGING SINGLE performed by Pb Alexander DO at [facility] EGD, FLEXIBLE, DIAGNOSTIC 01/14/2023 gsatric polyp/ESOPHAGOGASTRODUODENOSCOPY (EGD), FLEXIBLE, TRANSORAL, DIAGNOSTIC performed by Phong Mojica DO at ENDOSCOPY [facility] L-/S-SPINE PARAVERTEBRAL FACET INJ,1 LEVEL 11/25/2022 L-/S-SPINE PARAVERTEBRAL FACET INJ, 1 LEVEL performed by Pb Alexander DO at OR [facility] L-/S-SPINE PARAVERTEBRAL FACET INJ,1 LEVEL 01/06/2023 L-/S-SPINE PARAVERTEBRAL FACET INJ, 1 LEVEL performed by Pb Alexander DO at OR [facility] L-/S-SPINE PARAVERTEBRL FACET INJ,2 LEVELS 11/25/2022 L-/S-SPINE PARAVERTEBRAL FACET INJ, 2 LEVELS performed by Pb Alexander DO at OR [facility] L-/S-SPINE PARAVERTEBRL FACET INJ,2 LEVELS 01/06/2023 L-/S-SPINE PARAVERTEBRAL FACET INJ, 2 LEVELS performed by Pb Alexander DO at OR [facility] MISCELLANEOUS ORDER ([facility] ONLY) 1998 henria repair OTHER (INFORMATION) pilonidal cyst removal OTHER (INFORMATION) repair of bilateral shoulder for bone spur and repair of torn muscles right shoulder REMOVE CATARACT, INSERT LENS PROSTH Left 06/01/2017 left EXTRACAPSULAR CATARACT REMOVAL WITH INTRAOCULAR LENS performed by Nikhil Bolton MD at OR [facility] REMOVE CATARACT, INSERT LENS PROSTH Right 06/08/2017 right EXTRACAPSULAR CATARACT REMOVAL WITH INTRAOCULAR LENS performed by Nikhil Bolton MD at OR [facility] Medications Current Outpatient Medications Medication Sig Dispense Refill [...] BY MOUTH EVERY MORNING 100 Tablet 1 Colchicine 0.3 MG OR TABS 1 Tablet. FLUoxetine HCl 20 MG Oral Capsule (PROzac) [...] in the morning. 30 Tablet 2 Tiotropium [place] Monohydrate 18 MCG Inhalation Capsule (Spiriva) Inhale 1 Capsule by mouth in themorning. 30 Capsule 2 Full Kit Nebulizer Set Use with Nebulizer Medication EVERY FOUR HOURS as directed. Dx Code: J44.9 1 Each 3 Current Facility-Administered Medications Medication Dose Route Frequency Provider Last Rate Last Admin albuterol sulfate (PROVENTIL) (2.5 MG/3ML) 0.083% inhalation solution 2.5 mg 2.5 mg Nebulizer Q4H PRN Junaid Pyle MD 2.5 mg at 07/26/18 1521 Allergies Review of patient's allergies indicates: Allergen Reactions Tylenol [Acetaminophen] headaches Family History Family History Problem Relation Age of Onset Cancer Mother colon Gastro-intestinal disorder Sister crohn's No Known Problems Father Heart disease Brother Heart disease Brother Social History Social History Tobacco Use Smoking status: Every Day Packs/day: 1.50 Years: 69.00 Additional pack years: 0.00 Total pack years: 103.50 Types: Cigarettes Smokeless tobacco: Never Tobacco comments: started age 7 Substance Use Topics Alcohol use: No Vaping/E-Cigarette Use Vaping/E-Cigarette Use Never User Vaping/E-Cigarette Substances Vaping/E-Cigarette Devices Review of Systems Negative for constitutional, eyes, cardiac, pulmonary, hepatic, renal, digestive, hematologic, epileptic, syncopal, musculo-skeletal, mental health, integumentary, hypertensive, lipid, arthritic, diabetic, thyroid, or neurologic disorders (except as listed in the PMH and Problem List). Physical Examination: Temp 36.1 C (96.9 F) (Tympanic) | Ht 1.74 m (5' 8.5") | Wt 89.9 kg (198 lb 1.6 oz) | BMI 29.68 kg/m | BSA 2.08 m PHYSICAL EXAM General: This is a healthy appearing male who appears his stated age. The patient is alert and appropriately verbally conversant without hoarseness. Face: The face was inspected and no cutaneous masses or lesions were visualized. There was no erythema or edema noted. Facial movement was symmetric without weakness. Eyes: Extra-ocular muscle function was intact. No nystagmus was observed. Pupils were equal. Cranial Nerves: Cranial nerves II, III, IV, and were noted to be intact via extra-ocular muscle movement testing. Cranial nerve VII noted to be intact and symmetric by facial movement. Nose: Examination of the nose revealed no masses, polyps, mucopus, or other lesion. The nasal septum was non-obstructing. The turbinates were without abnormality. Oral Cavity: Examination of the oral cavity revealed no mass lesions nor infection. The palate was noted to be intact without evidence of clefting. The tongue exhibited normal mobility. Mucosa was moist without lesion. The lips were free of lesion. Gums were free of inflammation. Dentition: Unremarkable Oropharynx: The oral pharynx was free of mass lesion or mucosal abnormality. The palate was noted to be without lesion. The uvula was normal appearing. The tonsils were unremarkable. Ears: Examination of the ears revealed that the auricles were normally formed with no lesions. The external auditory canals were cleaned of any obstructing cerumen. The tympanic membranes were intactand freely mobile to pneumatoscopy. There are no significant retraction pockets. There is no inflammation visualized. No effusions are seen. Neck: Visualization and palpation of the neck revealed no mass lesions, no thyromegaly or thyroid masses. No skin lesions or inflammatory processes were detected. The cervical musculature was normal to palpation. Lymphatics (cervical): There were no palpable lymph nodes in the posterior triangle, submandibular triangle, jugulodigastric region, or central neck. Procedure: In order to assess the paranasal sinuses, endoscopy of the nose and paranasal sinuses was performed. The nose was decongested with topical oxymetazoline 0.05% spray and then anesthetized with topicalLidocaine 4% spray. The scope was used to examine each side of the nose. There were no masses visualized. The nasal mucosa was without lesion. The middle meatus on each side was clear of mass, polyp,or mucopus. The septum was non-obstructing. The nasopharynx was without lesion. The patient tolerated the procedure well. Assessment: 77-year-old male with asymmetric speech discrimination scores on audiometric testing Plan: Recommend MRI of the IAC's to ensure no CPA masses the source of his asymmetric speech discrimination. Will contact him with the results. Follow-up p.r.n. otherwise. I spent a total of 45 minutes on the date of service in preparation, delivery, and documentation ofthe care provided to the above patient, excluding any time spent on the performance of any procedures or separately billable services. Jerman Mota DO, FACS [facility] [place] 06/01/2023 1:18 PM documented in this encounter Nursing Notes * Cata Lange LPN - 06/01/2023 12:53 PM EST Chief Complaint Patient presents with NEW PATIENT Patient presents today for b/l hearing loss for several years. Pt wears hearing aids. Recently had audiogram at [facility] on 04/20/23. Patient states he also has not been able to smell for the last 2 years now. Also has nasal drainage, Uses Flonase. documented in this encounter Miscellaneous Notes * Addendum Note - Jerman Mota DO - 06/01/2023 1:26 PM ESTAddended by: JERMAN MOTA on: 06/01/2023 01:26 PM Modules accepted: Orders documented in this encounter Plan of Treatment Upcoming Encounters Date Type Department Care Team (Late st Contact Info) Description 06/03/2023 1:00 PM EST Office Visit Gastroenterology, [facility] [address] [place] [address] Agnes Bowers CRNP [address] [place] [address] 06/28/2023 10:30 AM EDT Office Visit Orthopaedics [facility] [address] [address] Zander Wilkins DO [address] [place] [address] 07/08/2023 10:00 AM EDT Imaging Radiology [facility] 1st Floor, [place] [address] [place] [address] 07/13/2023 11:00 AM EDT Office Visit Radiation Oncology, [address] [place] [address] Shawna Johnson MD [address] [place] [address] [place] [address] 07/19/2023 11:40 AM EDT Office Visit Family Practice [facility] [address] [facility] [place] [address] Johnnie Newby MD 132 [facility] [place] [address] 08/30/2023 10:20 AM EDT Office Visit Podiatry [facility] [address] [facility] [place] [address] Bettye Herrmann, SAMM [address] [place], [place] [address] [address] 09/16/2023 9:00 AM EDT Office Visit Cardiology, [facility] [address] [facility] [place] [address] Deisy Aguirre CRNP 132 [facility] [place] [address] Scheduled Orders Name Type Priority Associated Diagnoses Orde r Schedule MRI INTERNAL AUDITORY CANAL W WO CONTRAST Medical Imaging Routine Asymmetrical sensorineural hearing loss Expected: 06/15/2023, Expires: 06/29/2024 Scheduled Procedures Name Priority Associated Diagnoses Date/Ti me COLONOSCOPY FLEXIBLE PROXIMA L DIAGNOSTIC Recall History of colonic polyps Health Maintenance Due Date Last Done Comments Hepatitis B (1 of 3 - Risk 3-dose series) 2003 COVID-19 Vaccine ( season) 2023 02/25/2023, 02/10/2022, 07/13/2020, Additional history exists DISCUSS TOBACCO CESSATION (REFER TO SMARTSET #3292) 05/01/2023 05/01/2022, 02/13/2022 Diabetic Eye Exam 07/09/2023 [...] Additional history exists CKD PHOS USE SMARTSET 94923 04/15/202403/20, 06/05/2022, 06/03/2021, Additional history exists CKD HGB USE SMARTSET 08928 04/18/202404/18, 04/17/2023, 04/16/2023, Additional history exists Depression [...] this encounter Medical Devices Implanted Type Area Motor And Generator Brush Cutter Device Identifier Shelf Expiration Date Model / Serial / Lot Lens Intraoc 24.0 - [id number] - [id number] Implanted:Qty: 1 on 06/01/2017 by Nikhil Bolton MD at OR [facility] Left: Eye [employer] 07/17/2021 [id number] / [id number] / [id number] Lens Intraoc 24.0 - [id number] - [id number] Implanted:Qty: 1 on 06/08/2017 by Nikhil Bolton MD at OR [facility] Right: Eye [employer] 07/17/2021 [id number] / [id number] / [id number] documented as of this encounter Visit Diagnoses Diagnosis Asymmetrical sensorineural hearing loss- Primary Sensorineural hearing loss, asymmetrical Nasal congestion Other diseases of nasal cavity and sinuses documented in this encounter Advance Directives Documents on File Type Date Recorded 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 Care Teams Civil Manager Relationship Specialty Start Date End Date Johnnie Newby MD [address] [address] PCP - General Family Medicine 09/13/20 documented as of this encounter
--- OUTSIDE RECORDS SUMMARY | 2023-07-12 18:47 | External Medical Summary ---
Author Name Unknown Address Unknown Organization K01:[facility]ORATORY [facility] - [address] [place] [address] Laboratory Report Ordering Provider Test Date Status ERIN JANSEN 06/03/2023 13:27:57 Final Observation Date Value Abnormality Reference (Units ) Status Iron 06/03/2023 13:27:57 50 45-176 (ug /dL) Final Iron-binding capacity 06/03/2023 13:27:57 295 250-425 (ug/dL) Final Transferrin Sat % 06/03/2023 13:27:57 17 15 -55 (%) Final Performing Location LABORATORY C - [address] [place] [address]
--- OUTSIDE RECORDS SUMMARY | 2023-07-12 18:47 | External Medical Summary | Summary of Care ---
Author Name Unknown Organization [facility] Address [address] [place] [address] Phone [phone] Care Team Providers Care Computer Networker Name Role Phone Johnnie Newby MD Primary Care Provider [phone] Reason for Referral * Precert (Within 10 days (routine)) - Pending Review Specialty Diagnoses / Procedures Referred By Treva judd Referred To Contact Radiology Diagnoses Asymmetrical sensorineural hearing loss Procedures MRI INTERNAL AUDITORY CANAL W WO CONTRAST Jerman Mota DO [address] [facility] [place] [address] Referral ID Status Reason Start Date Expiration Date V isits Requested Visits Authorized [id number] Pending Review 06/15/2023 999 999 Reason for Visit * Reason Comments NEW PATIENT Encounter Details Date Type Department Care Team (Latest Contact Info) Description 06/01/2023 1:00 PM EST Office Visit Otolaryngology [facility] [address] [place] [address] Jerman Mota DO [address] [facility] [place] [address] Asymmetrical sensorineural hearing loss*; Nasal [...] 24 Hour (Imdur)Indications:C oronary artery disease involving [place] coronary artery without angina pectoris TAKE ONE TABLET BY MOUTH EVERY MORNING 90 Tablet 3 09/18/2022 4 Active Apixaban 5 MG Oral Tablet (Eliquis) Take 1 Tablet by mouth in the morning and 1 Tablet before bedtime. 180 Tablet 3 12/08/2022 Active Metoprolol Succinate ER 25 MG Oral Tablet Extended Release 24 Hour (toPROL XL)Indications:SVT (supraventricular tachycardia),NSVT (nonsustained ventricular tachycardia) ([facility]) TAKE ONE TABLET BY MOUTH [...] 30 Tablet 2 05/24/2023 4 Active Tiotropium [place] Monohydrate 18 MCG Inhalation Capsule (Spiriva) Inhale [...] tis 01/05/2014 Coronary artery disease invo lving [place] coronary artery of [place] heart without angina pectoris 11/27/2013 Tobacco abuse [...] did review serial audiograms from an outside casino host. He has had a gradual decline in [...] below 130/80 I10 Coronary artery disease involving [place] coronary artery of [place] heart without angina pectoris I25.10 Tobacco abuse Z72.0 PTSD (post-traumatic stress disorder) F43.10 Gastroesophageal reflux disease without esophagitis K21.9 Type 2 diabetes mellitus with hemoglobin A1c goal of less than 8.0% (HCC) E11.9 YISSEL treated with BiPAP G47.33 Peripheral arterial disease (HCC) I73.9 Dyslipidemia E78.5 COPD, group D, by GOLD 2017 classification ([facility]) J44.9 Carotid stenosis, non-symptomatic I65.29 NSVT (nonsustained ventricular tachycardia) ([facility]) I47.29 Aortic valve stenosis I35.0 AAA (abdominal aortic aneurysm) ([facility]) I71.40 Chronic kidney disease, stage 3a (HCC) [...] performed by Warren Patel MD at ENDOSCOPY [facility] COLONOSCOPY THRU STOMA, W/BIOPSY 05/28/2010 andenomatous tissue--repeat in 3 months COLONOSCOPY THRU STOMA, W/BIOPSY 09/18/2010 adenomatous-repeat colonoscopy in 3-6 months COLONOSCOPY THRU STOMA, W/BIOPSY 04/09/2011 polyps x3 , path shows adenomatous tissue repeat in 1 years COLONOSCOPY, DIAGNOSTIC (RECTUM) 05/20/2016 adenomatous polyps, poor prep, diverticulosis, repeat 3 yrs/[facility] COLONOSCOPY, DIAGNOSTIC (RECTUM) 06/06/2019 hemorrhoids/diverticulosis sigmoid and descending colon/small AVM/biopsies show adenomatous polyps/recall 6-9 months/COLONOSCOPY FLEXIBLE PROXIMAL DIAGNOSTIC performed by Clemencia Marinelli MD at[facility]COPY [facility] COLONOSCOPY, DIAGNOSTIC (RECTUM) 03/05/2022 benign adenomatous polyp, repeat 1 yr / COLONOSCOPY FLEXIBLE PROXIMAL DIAGNOSTIC performed by Clemencia Marinelli MD at ENDOSCOPY [facility] COLONOSCOPY, DIAGNOSTIC (RECTUM) 01/14/2023 hemorrhoids/diverticulosis/biopsies show hyperplastic polyps/recall 2 years/COLONOSCOPY FLEXIBLE PROXIMAL DIAGNOSTIC performed by Destiny Mojica DO at ENDOSCOPY [facility] CORONARY ANGIOGRAPHY W/LEFT HEART CATH Right 04/16/2023 CORONARY ANGIOGRAPHY W/LEFT HEART CATH performed by Maria G Lance MD at CARDIAC LABS [facility] DESTROY LUMBAR SACRAL NERVE IMAGING ADD'L 01/27/2023 DESTROY LUMBAR SACRAL NERVE IMAGING ADD'L performed by Pb Aelxander DO at OR [facility] DESTROY LUMBAR SACRAL NERVE IMAGING SINGLE 01/27/2023 DESTROY LUMBAR SACRAL NERVE IMAGING SINGLE performed by Pb Alexander DO at [facility] EGD, FLEXIBLE, DIAGNOSTIC 01/14/2023 gsatric polyp/ESOPHAGOGASTRODUODENOSCOPY (EGD), FLEXIBLE, TRANSORAL, DIAGNOSTIC performed by Phong Mojica DO at ENDOSCOPY [facility] L-/S-SPINE PARAVERTEBRAL FACET INJ,1 LEVEL 11/25/2022 L-/S-SPINE PARAVERTEBRAL FACET INJ, 1 LEVEL performed by Pb Alexander DO at OR [facility] L-/S-SPINE PARAVERTEBRAL FACET INJ,1 LEVEL 01/06/2023 L-/S-SPINE PARAVERTEBRAL FACET INJ, 1 LEVEL performed by Pb Alexander DO at OR [facility] L-/S-SPINE PARAVERTEBRL FACET INJ,2 LEVELS 11/25/2022 L-/S-SPINE PARAVERTEBRAL FACET INJ, 2 LEVELS performed by Pb Alexander DO at OR [facility] L-/S-SPINE PARAVERTEBRL FACET INJ,2 LEVELS 01/06/2023 L-/S-SPINE PARAVERTEBRAL FACET INJ, 2 LEVELS performed by Pb Alexander DO at OR [facility] MISCELLANEOUS ORDER (HS ONLY) 1998 henria repair OTHER (INFORMATION) pilonidal cyst removal OTHER (INFORMATION) repair of bilateral shoulder for bone spur and repair of torn muscles right shoulder REMOVE CATARACT, INSERT LENS PROSTH Left 06/01/2017 left EXTRACAPSULAR CATARACT REMOVAL WITH INTRAOCULAR LENS performed by Nikhil Bolton MD at OR [facility] REMOVE CATARACT, INSERT LENS PROSTH Right 06/08/2017 right EXTRACAPSULAR CATARACT REMOVAL WITH INTRAOCULAR LENS performed by Nikhil Bolton MD at OR [facility] Medications Current Outpatient Medications Medication Sig Dispense [...] in the morning. 30 Tablet 2 Tiotropium [place] Monohydrate 18 MCG Inhalation Capsule (Spiriva) Inhale [...] separately billable services. Jerman Mota DO, FACS [facility] Otolaryngology Head and Neck Surgery [place] 06/01/2023 1:18 PM documented in this encounter Nursing Notes * Cata Lange LPN - 06/01/2023 12:53 PM EST Chief Complaint Patient presents with NEW PATIENT Patient presents today for b/l hearing loss for several years. Pt wears hearing aids. Recently had audiogram at [facility] on 04/20/23. Patient states he also has [...] 06/03/2023 1:00 PM EST Office Visit Gastroenterology, [facility] [address] [place] [address] Agnes Bowers CRNP [address] [place] [address] 06/24/2023 10:15 AM EST Imaging Radiology [address] [place] [address] 06/28/2023 10:30 AM EDT Office Visit Orthopaedics [facility] [address] [place] [address] Zander Wilkins DO [address] [place] [address] 07/08/2023 10:00 AM EDT Imaging Radiology [facility] 132 [facility] [place] [address] 07/13/2023 11:00 AM EDT Office Visit Radiation Oncology, [place] [address] [facility] [place] [address] Shawna Johnson MD [address] [place] [address] [place] [address] 07/19/2023 11:40 AM EDT Office Visit Family Practice [facility] 132 [facility] [place] [address] Johnnie Newby MD 132 [facility] [place] [address] 08/30/2023 10:20 AM EDT Office Visit Podiatry [facility] 132 [facility] [place] [address] Bettye Herrmann, DPLiat [address] [place] [address] 09/16/2023 9:00 AM EDT Office Visit Cardiology, [facility] [address] Deisy [facility]irre [facility] [address] Scheduled Orders Name Type Priority Associated Diagnoses [...] Additional history exists CKD PHOS USE SMARTSET 24684 04/15/202403/20, 06/05/2022, 06/03/2021, Additional history exists CKD HGB USE SMARTSET 12180 04/18/202404/18, 04/17/2023, 04/16/2023, Additional history exists Depression [...] this encounter Medical Devices Implanted Type Area Dairy Technologist Device Identifier Shelf Expiration Date Model / Serial / Lot Lens Intraoc 24.0 - [id number] - [id number] Implanted:Qty: 1 on 06/01/2017 by Nikhil Bolton MD at OR [facility] Left: Eye [employer] 07/17/2021 [id number] / [id number] / [id number] Lens Intraoc 24.0 - [id number] - [id number] Implanted:Qty: 1 on 06/08/2017 by Nikhil Bolton MD at OR [facility] Right: Eye [employer] 07/17/2021 [id number] / [id number] / [id number] documented as of this encounter Visit Diagnoses Diagnosis Asymmetrical sensorineural hearing loss- Primary Sensorineural hearing loss, asymmetrical Nasal congestion Other diseases of nasal cavity and sinuses documented in this encounter Advance Directives Documents on File Type Date Recorded Patient Computational Physicist Expl 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 Care Teams Computer Networker Relationship Specialty Start Date End Date Johnnie Newby MD [address] [address] PCP - General Family Medicine 09/13/20 documented as of this encounter
--- OUTSIDE RECORDS SUMMARY | 2023-07-12 18:47 | External Medical Summary ---
Author Name Unknown Address Unknown Organization [facility] [address] [place] [address] Laboratory Report Ordering Provider Test Date Status ERIN JANSEN 06/03/2023 13:27:57 Final Observation Date Value Abnormality Reference (Units ) Status WBC, Total 06/03/2023 13:27:57 5.99 4.00-10.8 0 (K/uL) Final RBC 06/03/2023 13:27:57 3.88 4.50-5.25 (M/uL) Final Hemoglobin 06/03/2023 13:27:57 10.6 Below low normal 14 .0-16.8 (g/dL) Final HCT 06/03/2023 13:27:57 36.0 Below low normal 40. 0-48.4 (%) Final MCV 06/03/2023 13:27:57 92.8 82.0-99.5 (fL) Final MCH 06/03/2023 13:27:57 27.3 27.0-34.0 (pg) Final MCHC 06/03/2023 13:27:57 29.4 32.0-36.0 (g/dL) Final RDW 06/03/2023 13:27:57 20.2 11.5-15.5 (%) Final Platelets 06/03/2023 13:27:57 187 140-400 (K /uL) Final MPV 06/03/2023 13:27:57 10.2 6.6-11.1 ( fL) Final [facility] Location [facility] [address] [facility] [address] [place] [address]
--- OUTSIDE RECORDS SUMMARY | 2023-07-12 18:47 | External Medical Summary | Summary of Care ---
Author Name Unknown Organization [facility] Address [address] [place] [address] Phone [phone] Care Team Providers Care Adding Machine Mechanic Name Role Phone Johnnie Newby MD Primary Care Provider [phone] Reason for Visit * Reason Comments Outpatient Testing Encounter Details Date Type Department Care Team (Late st Contact Info) Description 06/03/2023 1:30 PM EST Laboratory Laboratory, [facility] [address] [place] [address] [facility] [address] [place] [address] Anemia, unspecified type Allergies Active Allergy Reactions Criticality Noted Date [...] goal of less than 7.0% ([facility]) TEST ONCE DAILY 100 Strip 5 03/02/2018 Active BiPAP every night at bedtime. 0 Active Vitamin B-12 1000 MCG Oral Tablet (Cyanocobalamin) Take 1 Tablet by mouth in the morning. 0 Active Isosorbide Mononitrate ER 60 MG Oral Tablet Extended Release 24 Hour (Imdur)Indications:C oronary artery disease involving [place] coronary artery without angina pectoris TAKE ONE TABLET BY MOUTH EVERY MORNING 90 Tablet 3 09/18/2022 4 Active Apixaban 5 MG Oral Tablet (Eliquis) Take 1 Tablet by mouth in the morning and 1 Tablet before bedtime. 180 Tablet 3 12/08/2022 Active Metoprolol Succinate ER 25 MG Oral Tablet Extended Release 24 Hour (toPROL XL)Indications:SVT (supraventricular tachycardia),NSVT (nonsustained ventricular tachycardia) ([facility]) TAKE ONE TABLET BY MOUTH [...] D, by GOLD 2017 classification ([facility]) Take 1 Tablet by mouth in the morning. 30 Tablet 2 05/24/2023 4 Active Tiotropium [place] Monohydrate 18 MCG Inhalation Capsule (Spiriva) Inhale [...] tis 01/05/2014 Coronary artery disease invo lving [place] coronary artery of [place] heart without angina pectoris 11/27/2013 Tobacco abuse [...] Description 06/24/2023 10:15 AM EST Imaging Radiology [address] [place] [address] 06/28/2023 10:30 AM EDT Office Visit Orthopaedics [facility] [address] [place] [address] Zander Wilkins DO [address] [place] [address] 07/08/2023 10:00 AM EDT Imaging Radiology [address] [place] [address] 07/13/2023 11:00 AM EDT Office Visit Radiation Oncology, [address] [place] [address] Shawna Johnson MD [address] [place] [address] [place] [address] 07/19/2023 11:40 AM EDT Office Visit Family Practice [facility] [address] [place] [address] Johnnie Newby MD [address] [place] [address] 08/30/2023 10:20 AM EDT Office Visit Podiatry [facility] 132 [facility] [place] [address] Bettye Herrmann DPM [address] [place] [address] [place] [address] 09/16/2023 9:00 AM EDT Office Visit Cardiology, [facility] 132 [facility] [place] [address] Deisy Aguirre CRNP [address] [place] [address] Pending Results Name Type Priority Associated Diagnoses Date /Time CBC WITH WBC DIFFERENTIAL Lab Routine Anemia, unspecified type 06/03/2023 1:27 PM EST IRON SCREEN, INCLUDING TIBC Lab Routine Anemia, unspecified type 06/03/2023 1:27 PM EST CBC Lab Routine Anemia, unspecified type 06/03/2023 1:27 PM EST DIFFERENTIAL, AUTOMATED Lab Routine Anemia, unspecified type 06/03/2023 1:27 PM EST Scheduled Procedures Name Priority Associated [...] Additional history exists CKD PHOS USE SMARTSET 03391 04/15/202403/20, 06/05/2022, 06/03/2021, Additional history exists CKD HGB USE SMARTSET 61126 04/18/202404/18, 04/17/2023, 04/16/2023, Additional history exists Depression [...] this encounter Medical Devices Implanted Type Area Publicity Consultant Device Identifier Shelf Expiration Date Model / Serial / Lot Lens Intraoc 24.0 - [id number] - [id number] Implanted:Qty: 1 on 06/01/2017 by Nikhil Bolton MD at OR [facility] Left: Eye [employer] 07/17/2021 [id number] / [id number] / [id number] Lens Intraoc 24.0 - [id number] - [id number] Implanted:Qty: 1 on 06/08/2017 by Nikhil Bolton MD at OR [facility] Right: Eye [employer]OM[employer] 07/17/2021 [id number] / [id number] / [id number] documented as of this encounter Visit Diagnoses Diagnosis Anemia, unspecified type documented in this encounter Advance Directives Documents on File Type Date Recorded Patient Puff Iron Operator Expl anation Advance Directives and Yu Watkins [...] and were consensually agreed upon. Care Teams Adding Machine Mechanic Relationship Specialty Start Date End Date Johnnie Newby MD [address] [place] [address] PCP - General Family Medicine 09/13/20 documented as of this encounter
--- OUTSIDE RECORDS SUMMARY | 2023-07-12 18:48 | External Medical Summary | Summary of Care ---
Author Name Unknown Organization [facility] Address [address] [facility] [place] [address] Phone [phone] Care Team Providers Care Tree And Shrub Technician Name Role Phone Johnnie Newby MD Primary Care Provider [phone] [phone] Reason for Visit * Reason Onset Date Comments Advice 02/16/2023 FYI 02/16/2023 Encounter Details Date Type Department Care Team (Late st Contact Info) Description 02/16/2023 Telephone Family Practice [facility] [address] [place] [address] Johnnie Newby MD [address] [place] [address] Advice; (/) Allergies Active Allergy Reactions Criticality Noted Date Comments Acetaminophen 05/06/2005 headaches documented as of this encounter (statuses as of 05/18/2023) Medications Medication Sig Dispensed Refills Start Date End Date Status DAILY MULTIVITAMIN PO TABS with lycopene 0 Active BUSPAR 15 MG PO TABS Take by mouth. Uses as needed 0 Active clonazePAM (KLONOPIN) 0.5 MG Tablet Uses as needed 0 7 Active ONETOUCH ULTRA BLUE STRPIndications:Ty pe 2 diabetes mellitus with hemoglobin A1c goal of less than 7.0% ([facility]) TEST ONCE DAILY 100 Strip 5 8 Active BiPAP every night at bedtime. 0 Active Vitamin B-12 1000 MCG Oral Tablet (Cyanocobalamin) Take 1 Tablet by mouth in the morning. 0 Active Isosorbide Mononitrate ER 60 MG Oral Tablet Extended Release 24 Hour (Imdur)Indications :Coronary artery disease involving [place] coronary artery without angina pectoris TAKE ONE TABLET BY MOUTH EVERY MORNING 90 Tablet 3 3 09/18/19 24 Active Tiotropium [place] Monohydrate 18 MCG Inhalation Capsule (Spiriva) INHALE ONE CAPSULE VIA HANDIHALER EVERY MORNING. DO NOT SWALLOW CAPSULE. 90 Capsule 3 3 06/26/19 24 Active Roflumilast 500 MCG Oral Tablet (Daliresp)Indicati ons:COPD, group D, by GOLD 2017 classification ([facility]) TAKE ONE TABLET BY MOUTH EVERY MORNING 90 Tablet 1 3 11/26/19 24 Active Apixaban 5 MG Oral Tablet (Eliquis) Take 1 Tablet by mouth in the morning and 1 Tablet before bedtime. 180 Tablet 3 3 Active Metoprolol Succinate ER 25 MG Oral Tablet Extended Release 24 Hour (toPROL XL)Indications:SVT (supraventricular tachycardia),NSVT (nonsustained ventricular tachycardia) ([facility]) TAKE ONE TABLET BY [...] for anxiety 180 Tablet 0 3 Active risperiDONE 0.25 MG Oral TabletIndications: pt takes .5 mg at bedtime and .025 mid morning Take 2 Tablets by mouth at bedtime. 0 03/10/20 23 Discontinued Ventolin HFA 108 (90 Base) MCG/ACT Inhalation Aerosol SolutionIndication s:COPD, moderate ([facility]) Take 2 Puffs by mouth 4 times a day as needed for Shortness of Breath or Wheezing. 54 g 1 1 05/11/19 24 Discontinued(Fo rmulary/Cost) Mirtazapine 15 MG Oral Tablet (Remeron) Take one and half tablets by mouth daily at bedtime 0 1 04/23/19 24 Discontinued Gabapentin 300 MG Oral Capsule (Neurontin) Take by mouth 1 Capsule before bedtime. 90 Capsule 3 2 05/12/19 24 Discontinued(Re fill) Omeprazole 20 MG Oral Capsule Delayed Release (PriLOSEC)Indicati ons:Gastroesophage al reflux disease without esophagitis TAKE ONE CAPSULE BY MOUTH EVERY MORNING *NEED UPDATED LABS* 90 Capsule 1 3 03/21/20 23 Discontinued(Re fill) Lisinopril 20 MG Oral Tablet (Prinivil)Indicati ons:HTN, goal below 140/90 TAKE ONE TABLET BY MOUTH EVERY MORNING 90 Tablet 2 3 04/23/19 24 Discontinued metFORMIN HCl 1000 MG Oral Tablet (Glucophage) TAKE ONE TABLET BY MOUTH EVERY MORNING 100 Tablet 1 3 04/20/19 24 Discontinued(Re fill) FLUoxetine HCl 20 MG Oral Capsule (PROzac) TAKE THREE CAPSULES BY MOUTH EVERY MORNING 270 Capsule 0 3 04/23/19 24 Discontinued(Re fill) Fluticasone-Salmet gume 230-21 MCG/ACT Inhalation Aerosol (Advair)Indication s:COPD, group B, by GOLD 2017 classification ([facility]) INHALE TWO PUFFS BY MOUTH EVERY MORNING AND INHALE TWO PUFFS BY MOUTH AT BEDTIME, RINSE MOUTH AFTER USE 36 g 3 2 05/10/19 24 Discontinued(Re fill) Aspirin 81 MG Oral Tablet Chewable chew 1 Tablet by mouth in the morning. 100 Tablet 3 3 04/18/20 23 Discontinued(Re fill) FLUoxetine HCl 20 MG Oral Capsule (PROzac) 3 caps by mouth every morning 270 Capsule 0 3 04/18/20 23 Discontinued Mirtazapine 15 MG Oral Tablet (Remeron) 1/2 tab (7.5mg) by mouth every night 45 Tablet 0 3 05/07/19 24 Discontinued(Re fill) risperiDONE 0.5 MG Oral Tablet (RisperDAL) 1 tab by mouth every night at bedtime 90 Tablet 0 3 05/07/19 24 Discontinued(Re fill) Hospital, Clinic, or Other Facility Administered Medication Ordered Dose Route Frequency Start Date End Date Status albuterol sulfate (PROVENTIL) (2.5 MG/3ML) 0.083% inhalation solution 2.5 mgIndications:COPD, severe (HCC) 2.5 mg NEBULIZER Q4H PRN 07/08/2018 Active documented as of this encounter (statuses as of 05/18/2023) Active Problems Problem Noted Date Diagnosed Date [...] tis 01/05/2014 Coronary artery disease invo lving [place] coronary artery of [place] heart without angina pectoris 11/27/2013 Tobacco abuse 11/27/2013 HTN, goal below 130/80 03/06/2009 Overview: Modified per HTN protocol #16. documented as of this encounter (statuses as of 05/18/2023) Resolved Problems Problem Noted Date Diagnosed Date [...] as of this encounter (statuses as of 05/18/2023) Immunizations Name Administration Dates Next Due COVID-19 [...] encounter Miscellaneous Notes * Telephone Encounter - Malena Gomez NA/ALIZA - 02/18/2023 10:36 AM EDT Pt called in to let us know that his Dr. Stated that he can come off Eliquis 3 days before surgery. * Telephone Encounter - Johnnie Newby MD - 02/16/2023 4:01 PM EDT He sees cardiology they should make that call * Telephone Encounter - Nora Gomez OSA - 02/16/2023 3:55 PM EDT Walter is calling. Pending knee replacement surgery. Can he go off of his eliquisand baby? Asprin regimen. [phone] . documented in this encounter Plan of Treatment Upcoming Encounters Date Type Department Care Team (Late st Contact Info) Description 05/24/2023 3:00 PM EST Office Visit Pulmonary Medicine, [facility] [address] [facility] [place] [address] Hi Loepz [facility] [address] [facility] [address] 05/31/2023 11:40 AM EST Office Visit Podiatry [facility] [address] [facility] [place] [address] Bettye Herrmann DPM [address] [place] [address] 06/28/2023 10:30 AM EDT Office Visit Orthopaedics [facility] [address] [facility] [place] [address] Zander Wilkins, [address] [facility] [place] [address] 06/29/2023 2:00 PM EDT Office Visit Otolaryngology [facility] [address] [place] [address] Du Mota DO [address] [place] [address] 07/08/2023 10:00 AM EDT Imaging Radiology [address] [place] [address] 07/13/2023 11:00 AM EDT Office Visit Radiation Oncology, [address] [place] [address] Shawna Johnson MD [address] [place] [address] [place] [address] 07/19/2023 11:40 AM EDT Office Visit Family Practice [facility] [address] [place] [address] Johnnie Newby MD [address] [facility] [place] [address] 09/02/2023 10:00 AM EDT Office Visit Gastroenterology, [facility] [address] [place] [address] Agnes Bowers CRNP [address] [facility] [place] [address] 09/16/2023 9:00 AM EDT Office Visit Cardiology, [facility] [address] [place] [address] Deisy Aguirre CRNP [address] [place] [address] Scheduled Procedures Name Priority Associated Diagnoses Date/Ti me COLONOSCOPY FLEXIBLE PROXIMA L DIAGNOSTIC Recall History of colonic polyps Health Maintenance Due Date Last Done Comments Hepatitis B (1 of 3 - Risk 3-dose series) 2003 COVID-19 Vaccine ( season) 2023 02/25/2023, 02/10/2022, 07/13/2020, Additional history exists DISCUSS TOBACCO CESSATION (REFER TO SMARTSET #3745) 05/01/2023 05/01/2022, 02/13/2022 Diabetic Eye Exam 07/09/2023 [...] Additional history exists CKD PHOS USE SMARTSET 56579 04/15/202403/20, 06/05/2022, 06/03/2021, Additional history exists CKD HGB USE SMARTSET 18621 04/18/202404/18, 04/17/2023, 04/16/2023, Additional history exists Depression [...] this encounter Medical Devices Implanted Type Area Radio Mechanic Apprentice Device Identifier Shelf Expiration Date Model / Serial / Lot Lens Intraoc 24.0 - [id number] - [id number] Implanted:Qty: 1 on 06/01/2017 by Nikhil Bolton MD at OR [facility] Left: Eye [employer] 07/17/2021 [id number] / [id number] / [id number] Lens Intraoc 24.0 - [id number] - [id number] Implanted:Qty: 1 on 06/08/2017 by Nikhil Bolton MD at OR [facility] Right: Eye [employer]OMB 07/17/2021 [id number] / [id number] / [id number] documented as of this encounter Additional Health Concerns Infection Onset Date Last Indicated Resolved Time Respiratory Rule-Out 04/15/2023 04/16/2023 023 1:47 AM EST COVID-19 Rule-Out 04/15/2023 04/16/2023 04/16/2023 1:47 AM EST documented as of this encounter Advance Directives Documents on File Type Date Recorded Patient Hospital Ward Clerk Expl anation Advance Directives and Yu fine [...] and were consensually agreed upon. Care Teams Tree And Shrub Technician Relationship Specialty Start Date End Date Johnnie Newby MD [address] [place] [address] PCP - General Family Medicine 09/13/20 documented as of this encounter
--- OUTSIDE RECORDS SUMMARY | 2023-07-12 18:48 | External Medical Summary | Summary of Care ---
Author Name Unknown Organization [facility] Address [address] [facility] [place] [address] Phone [phone] Care Team Providers Care Residential Solar Consultant Name Role Phone Johnnie Newby MD Primary Care Provider [phone] Reason for Visit * Reason Onset Date Comments Medication Refill 05/10/2023 Medication ref ill Encounter Details Date Type Department Care Team (Late st Contact Info) Description 05/10/2023 Telephone Pulmonary Medicine, [facility] [address] [facility] [place] [address] Hui Bishop CRNP [address] [facility] [place] [address] Medication Refill (Medication refill/) Allergies Active Allergy Reactions Criticality Noted Date Comments Acetaminophen 05/06/2005 headaches documented as of this encounter (statuses as of 05/10/2023) Medications Medication Sig Dispensed Refills Start Date End Date Status DAILY MULTIVITAMIN PO TABS with lycopene 0 Active BUSPAR 15 MG PO TABS Take by mouth. Uses as needed 0 Active clonazePAM (KLONOPIN) 0.5 MG Tablet Uses as needed 0 06/17/2016 Active ONETOUCH ULTRA BLUE STRPIndications:Type 2 diabetes mellitus with hemoglobin A1c goal of less than 7.0% ([facility]) TEST ONCE DAILY 100 Strip 5 03/02/2018 Active Ventolin HFA 108 (90 Base) MCG/ACT Inhalation Aerosol SolutionIndications: COPD, moderate ([facility]) Take 2 Puffs by mouth 4 times a day as needed for Shortness of Breath or Wheezing. 54 g 1 05/07/2020 Active Gabapentin 300 MG Oral Capsule (Neurontin) Take by mouth 1 Capsule before bedtime. 90 Capsule 3 09/10/2021 Active BiPAP every night at bedtime. 0 Active Vitamin B-12 1000 MCG Oral Tablet (Cyanocobalamin) Take 1 Tablet by mouth in the morning. 0 Active Isosorbide Mononitrate ER 60 MG Oral Tablet Extended Release 24 Hour (Imdur)Indications:C oronary artery disease involving [place] coronary artery without angina pectoris TAKE ONE TABLET BY MOUTH EVERY MORNING 90 Tablet 3 09/18/2022 4 Active Tiotropium [place] Monohydrate 18 MCG Inhalation Capsule (Spiriva) INHALE ONE CAPSULE VIA HANDIHALER EVERY MORNING. DO NOT SWALLOW CAPSULE. 90 Capsule 3 06/26/2022 4 Active Fluticasone-Salmeter ol 230-21 MCG/ACT Inhalation Aerosol (Advair)Indications: COPD, group B, by GOLD 2017 classification ([facility]) INHALE TWO PUFFS BY MOUTH EVERY MORNING AND INHALE TWO PUFFS BY MOUTH AT BEDTIME, RINSE MOUTH AFTER USE 36 g 3 04/17/2022 4 Active Roflumilast 500 MCG Oral Tablet (Daliresp)Indication s:COPD, group D, by GOLD 2017 classification ([facility]) TAKE ONE TABLET BY MOUTH EVERY MORNING 90 Tablet 1 11/26/2022 4 Active Apixaban 5 MG Oral Tablet (Eliquis) Take 1 Tablet by mouth in the morning and 1 Tablet before bedtime. 180 Tablet 3 12/08/2022 Active Metoprolol Succinate ER 25 MG Oral Tablet Extended Release 24 Hour (toPROL XL)Indications:SVT (supraventricular tachycardia),NSVT (nonsustained ventricular tachycardia) ([facility]) TAKE ONE TABLET BY MOUTH EVERY [...] at bedtime 90 Tablet 0 05/06/2023 Active Hospital, Clinic, or Other Facility Administered Medication Ordered Dose Route Frequency Start Date End Date Status albuterol sulfate (PROVENTIL) (2.5 MG/3ML) 0.083% inhalation solution 2.5 mgIndications:COPD, severe (HCC) 2.5 mg NEBULIZER Q4H PRN 07/08/2018 Active documented as of this encounter (statuses as of 05/10/2023) Active Problems Problem Noted Date Diagnosed Date [...] tis 01/05/2014 Coronary artery disease invo lving [place] coronary artery of [place] heart without angina pectoris 11/27/2013 Tobacco abuse 11/27/2013 HTN, goal below 130/80 03/06/2009 Overview: Modified per HTN protocol #16. documented as of this encounter (statuses as of 05/10/2023) Resolved Problems Problem Noted Date Diagnosed Date [...] as of this encounter (statuses as of 05/10/2023) Immunizations Name Administration Dates Next Due COVID-19 mRNA, LNP-s, No Pre serve, 2-Dose Series ([place]) 02/25/2023,02/10/2022,07/13/2020,06/17 Pneumococcal Conjugate Vacc, 13 Valent (Prevnar) [...] the money to buy more. Never true 04/22/19 24 Within the past 12 months, t he food you bought just didn't last and you didn't have money to get more. Never true 04/22/2023 Sex and Gender Information Value Date Recorded [...] Care Team (Late st Contact Info) Description 05/18/2023 1:00 PM EST Office Visit Gastroenterology, [facility] [address] [facility] [place] [address] Agnes Bowers CRNP [address] [place] [address] 05/24/2023 3:00 PM EST Office Visit Pulmonary Medicine, [facility] [address] [facility] [place] [address] Hi Lopez MD [address] [place] [address] 05/31/2023 11:40 AM EST Office Visit Podiatry [facility] [address] [facility] [place] [address] Bettye Herrmann, DPM [facility] [address] 06/28/2023 10:30 AM EDT Office Visit Orthopaedics [facility] [address] [facility] [place] [address] Zander Wilkins, DO [address] [place] [address] 06/29/2023 2:00 PM EDT Office Visit Otolaryngology [facility] [address] [facility] [place] [address] Du Mota, [address] [place] [address] 07/08/2023 10:00 AM EDT Imaging Radiology [facility] 1st Floor, [place] [address] [facility] [place] [address] 07/13/2023 11:00 AM EDT Office Visit Radiation Oncology, [address] [place] [address] Shawna Johnson MD [address] [place] [address] [place] [address] 07/19/2023 11:40 AM EDT Office Visit Family Practice [facility] [address] [place] [address] Johnnie Newby MD [address] [place] [address] 09/16/2023 9:00 AM EDT Office Visit Cardiology, [facility] [address] [place] [address] Deisy Aguirre CRNP [address] [place] [address] Scheduled Procedures Name Priority Associated Diagnoses Date/Ti me COLONOSCOPY FLEXIBLE PROXIMA L DIAGNOSTIC Recall History of colonic polyps Health Maintenance Due Date Last Done Comments Hepatitis B (1 of 3 - Risk 3-dose series) 2003 Diabetic Eye Exam 04/09/2023 04/09/2022, , 03/30/2020, Additional history exists COVID-19 Vaccine ( season) 2023 02/25/2023, 02/10/2022, 07/13/2020, Additional history exists DISCUSS TOBACCO CESSATION (REFER TO SMARTSET #3291) 05/01/2023 05/01/2022, 02/13/2022 Diabetic Foot Exam 09/10/2023 09/09/2022, 1 , 11/12/2017, Additional history exists HbA1c 10/16/2023 04/16/2023, 12/19, 06/05/2022, Additional history exists GFR 10/17/2023 04/18/2023, 03/21, 04/16/2023, Additional history exists DTaP,Tdap,and Td Vaccines (2 - Td or Tdap) 01/06/2024 01/05/2014 O2 ASSESSMENT COMPLETED IN PAST YEAR FOR COPD 01/15/2024 01/14/2023 Albumin/Creatinine Ratio 02/05/2024 023, 01/15/2023, 06/04/2021, Additional history exists CKD PHOS USE SMARTSET 81404 04/15/202403/20, 06/05/2022, 06/03/2021, Additional history exists CKD HGB USE SMARTSET 89812 04/18/202404/18, 04/17/2023, 04/16/2023, Additional history exists Depression [...] this encounter Medical Devices Implanted Type Area Deputy Director Of Finance Device Identifier Shelf Expiration Date Model / Serial / Lot Lens Intraoc 24.0 - [id number] - [id number] Implanted:Qty: 1 on 06/01/2017 by Nikhil Bolton MD at OR [facility] Left: Eye [employer]OMB 07/17/2021 [id number] / [id number] / [id number] Lens Intraoc 24.0 - [id number] - [id number] Implanted:Qty: 1 on 06/08/2017 by Nikhil Bolton MD at OR [facility] Right: Eye BAUSCH [employer] LOMB 07/17/2021 [id number] / [id number] / [id number] documented as of this encounter Advance Directives Documents on File Type Date Recorded 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 Care Teams Residential Solar Consultant Relationship Specialty Start Date End Date Johnnie Newby MD [address] [place] [address] PCP - General Family Medicine 09/13/20 documented as of this encounter
--- OUTSIDE RECORDS SUMMARY | 2023-07-12 18:48 | External Medical Summary | Summary of Care ---
Author Name Unknown Organization [facility] Address [address] [place] [address] Phone [phone] Care Team Providers Care President & Founder Name Role Phone Johnnie Newby MD Primary Care Provider [phone] Reason for Visit * Reason Onset Date Comments Medication Refill 05/13/2023 Encounter Details Date Type Department Care Team (Late st Contact Info) Description 05/13/2023 Refill Care Coordination and Integration [address], [place] [id number] Bianca Tao, RN [address], [place] [id number] Allergies Active Allergy Reactions Criticality Noted Date Comments Acetaminophen 05/06/2005 headaches documented as of this encounter (statuses as of 05/14/2023) Medications Medication Sig Dispensed Refills Start Date End Date Status DAILY MULTIVITAMIN PO TABS with lycopene 0 Active BUSPAR 15 MG PO TABS Take by mouth. Uses as needed 0 Active clonazePAM (KLONOPIN) 0.5 MG Tablet Uses as needed 0 06/17/2016 Active ONETOUCH ULTRA BLUE STRPIndications:Typ e 2 diabetes mellitus with hemoglobin A1c goal of less than 7.0% ([facility]) TEST ONCE DAILY 100 Strip 5 03/02/2018 Active BiPAP every night at bedtime. 0 Active Vitamin B-12 1000 MCG Oral Tablet (Cyanocobalamin) Take 1 Tablet by mouth in the morning. 0 Active Isosorbide Mononitrate ER 60 MG Oral Tablet Extended Release 24 Hour (Imdur)Indications: Coronary artery disease involving white [place] coronary artery without angina pectoris TAKE ONE TABLET BY MOUTH EVERY MORNING 90 Tablet 3 09/18/2022 4 Active Tiotropium [place] Monohydrate 18 MCG Inhalation Capsule (Spiriva) INHALE ONE CAPSULE VIA HANDIHALER EVERY MORNING. DO NOT SWALLOW CAPSULE. 90 Capsule 3 06/26/2022 4 Active Roflumilast 500 MCG Oral Tablet (Daliresp)Indicatio ns:COPD, group D, by GOLD 2017 classification ([facility]) TAKE ONE TABLET BY MOUTH EVERY MORNING 90 Tablet 1 11/26/2022 4 Active Apixaban 5 MG Oral Tablet (Eliquis) Take 1 Tablet by mouth in the morning and 1 Tablet before bedtime. 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 90 Capsule 3 05/12/2023 Active Airsupra 90-80 MCG/ACT Inhalation Aerosol (Albuterol-Budesoni de) Inhale 2 Puffs by mouth 3 times a day as needed for Wheezing or Dyspnea. 32.1 g 2 05/13/2023 Active Airsupra 90-80 MCG/ACT Inhalation Aerosol (Albuterol-Budesoni de) Inhale 2 Puffs by mouth 3 times a day as needed for Wheezing or Dyspnea. 10.7 g 2 05/11/2023 4 Discontinu ed(Refill) Hospital, Clinic, or Other Facility Administered Medication Ordered Dose Route Frequency Start Date End Date Status albuterol sulfate (PROVENTIL) (2.5 MG/3ML) 0.083% inhalation solution 2.5 mgIndications:COPD, severe (HCC) 2.5 mg NEBULIZER Q4H PRN 07/08/2018 Active documented as of this encounter (statuses as of 05/14/2023) Active Problems Problem Noted Date Diagnosed Date [...] tis 01/05/2014 Coronary artery disease invo lving white mountain coronary artery of white mountain heart without angina pectoris 11/27/2013 Tobacco abuse 11/27/2013 HTN, goal below 130/80 03/06/2009 Overview: Modified per HTN protocol #16. documented as of this encounter (statuses as of 05/14/2023) Resolved Problems Problem Noted Date Diagnosed Date [...] as of this encounter (statuses as of 05/14/2023) Immunizations Name Administration Dates Next Due COVID-19 mRNA, LNP-s, No Pre serve, 2-Dose Series (SPHARES) 02/25/2023,02/10/2022,07/13/2020,06/17 Pneumococcal Conjugate Vacc, 13 Valent (Prevnar) [...] Telephone Encounter - Janine Eisenberg CPhT - 05/14/2023 10:24 AM EST PA started in 05/14 encounter for Airsupra Thank you, Janine Eisenberg [facility] [employer] [facility] 05/14/2023,10:24 AM * Telephone Encounter - Hi Dave MD - 05/13/2023 5:24 PM EST Signed Prescriptions: Disp Refills Airsupra 90-80 MCG/ACT Inhalation Aerosol *32.1 g 2 Sig: Inhale 2 Puffs by mouth 3 times a day as needed for Wheezing or Dyspnea. Authorizing Provider: HI DAVE * Telephone Encounter - Bianca Tao RN - 05/13/2023 3:[address] Dave, patient had picked up inhaler and it was $100. Patients asking if a mail order supply would be more cost effective. Pended if agreeable. Thank you Did you pend patient's preferred pharmacy and medication before forwarding?yes Pharmacy: [facility] Pending Prescriptions: Disp Refills Airsupra 90-80 MCG/ACT Inhalation Aerosol*32.1 g 2 Sig: Inhale 2 Puffs by mouth 3 times a day as needed for Wheezing or Dyspnea. Last Visit: Visit date not found (in office), Visit date not found (telemedicine) Next Visit: Visit date not found If no future appointments scheduled, and last appointment is greater than a year ago, please schedule patient for a follow-up appointment Last date the medication was ordered: Is this request for a controlled substance?No Urine Drug Screen:No results found. However, due [...] 1:00 PM EST Office Visit Gastroenterology, [facility] [address] [place] [address] Agnes Bowers CRNP [address] [place] [address] 05/24/2023 3:00 PM EST Office Visit Pulmonary Medicine, [facility] [address] [facility] [place] [address] Hi Dave MD [address] [place] [address] 05/31/2023 11:40 AM EST Office Visit Podiatry [facility] [address] [facility] [place] [address] Bettye Herrmann, DPM [address] [facility] [place] [address] 06/28/2023 10:30 AM EDT Office Visit Orthopaedics [facility] [address] [facility] [place] [address] Zander Wilkins, DO [address] [place] [address] 06/29/2023 2:00 PM EDT Office Visit Otolaryngology [facility] [address] [facility] [place] [address] Du Mota DO [address] [place] [address] 07/08/2023 10:00 AM EDT [facility] [address] [facility] [place] [address] 07/13/2023 11:00 AM EDT Office Visit Radiation Oncology, [address] [place] [address] Shawna Johnson MD [address] [place] [address] [place] [address] 07/19/2023 11:40 AM EDT Office Visit Family Practice [facility] [address] [facility] [place] [address] Johnnie Newby MD [address] [place] [address] 09/16/2023 9:00 AM EDT Office Visit Cardiology, [facility] [address] [place] [address] Deisy Aguirre CRNP [address] [place] [address] Scheduled Procedures Name Priority Associated Diagnoses Date/Ti [...] Additional history exists CKD PHOS USE SMARTSET 04494 04/15/202403/20, 06/05/2022, 06/03/2021, Additional history exists CKD HGB USE SMARTSET 08679 04/18/202404/18, 04/17/2023, 04/16/2023, Additional history exists Depression [...] this encounter Medical Devices Implanted Type Area Injury Prevention Coordinator Device Identifier Shelf Expiration Date Model / Serial / Lot Lens Intraoc 24.0 - [id number] - [id number] Implanted:Qty: 1 on 06/01/2017 by Nikhil Bolton MD at OR [facility] Left: Eye [employer] 07/17/2021 [id number] / [id number] / [id number] Lens Intraoc 24.0 - [id number] - [id number] Implanted:Qty: 1 on 06/08/2017 by Nikhil Bolton MD at OR [facility] Right: Eye [employer]CH [employer]OM[employer] 07/17/2021 [id number] / [id number] / [id number] documented as of this encounter Advance Directives Documents on File Type Date Recorded Patient Best Second Jobs Expl anation Advance Directives and Yu fine [...] and were consensually agreed upon. Care Teams President & Founder Relationship Specialty Start Date End Date Johnnie Newby MD [address] [facility] [place] [address] PCP - General Family Medicine 09/13/20 documented as of this encounter
--- OUTSIDE RECORDS SUMMARY | 2023-07-12 18:48 | External Medical Summary | Summary of Care ---
Author Name Unknown Organization [facility] Address [address] [place] [place] [address] Phone [phone] Care Team Providers Care Inspector Subassemblies Name Role Phone Johnnie Newby MD Primary Care Provider [phone] Reason for Visit * Reason Comments Medication Refill Roflumilast Encounter Details Date Type Department Care Team (Late st Contact Info) Description 05/05/2023 Refill Pulmonary Medicine, [facility] [address] [facility] [place] [address] Hi Lopez MD [address] [facility] [address] COPD, group D, by GOLD 2017 classification ([facility]) Allergies Active Allergy Reactions Criticality Noted [...] goal of less than 7.0% ([facility]) TEST ONCE DAILY 100 Strip 5 03/02/2018 Active Ventolin HFA 108 (90 Base) MCG/ACT Inhalation Aerosol SolutionIndications: COPD, moderate ([facility]) Take 2 Puffs by mouth 4 [...] 90 Tablet 3 09/18/2022 4 Active Tiotropium [place] Monohydrate 18 MCG Inhalation Capsule (Spiriva) INHALE ONE CAPSULE VIA HANDIHALER EVERY MORNING. DO NOT SWALLOW CAPSULE. 90 Capsule 3 06/26/2022 4 Active Fluticasone-Salmeter ol 230-21 MCG/ACT Inhalation Aerosol (Advair)Indications: COPD, group B, by GOLD 2017 classification ([facility]) INHALE TWO PUFFS BY MOUTH EVERY MORNING AND INHALE TWO PUFFS BY MOUTH AT BEDTIME, RINSE MOUTH AFTER USE 36 g 3 04/17/2022 4 Active Roflumilast 500 MCG Oral Tablet (Daliresp)Indication s:COPD, group D, by GOLD 2017 classification ([facility]) TAKE ONE TABLET BY MOUTH EVERY MORNING 90 Tablet 1 11/26/2022 4 Active Apixaban 5 MG Oral Tablet (Eliquis) Take 1 Tablet by mouth in the morning and 1 Tablet before bedtime. 180 Tablet 3 12/08/2022 Active Metoprolol Succinate ER 25 MG Oral Tablet Extended Release 24 Hour (toPROL XL)Indications:SVT (supraventricular tachycardia),NSVT (nonsustained ventricular tachycardia) ([facility]) TAKE ONE TABLET BY MOUTH [...] the morning. 270 Capsule 3 04/23/2023 Active Hospital, Clinic, or Other Facility Administered [...] tis 01/05/2014 Coronary artery disease invo lving tohono [...] mRNA, LNP-s, No Pre serve, 2-Dose Series ([employer]) 02/25/2023,02/10/2022,07/13/2020,06/17 Pneumococcal Conjugate Vacc, 13 Valent (Prevnar) [...] encounter Miscellaneous Notes * Telephone Encounter - Joyce Lopez, waiter/waitress second class - 05/10/2023 11:19 AM ESTNo prescriptions requested or ordered in this encounter * Telephone Encounter - Celina Abarca LPN - 05/07/2023 1:44 PM ESTPending Prescriptions: Disp Refills Roflumilast 500 MCG Oral Tablet (Daliresp) 90 Tab*0 Sig: TAKE ONE TABLET BY MOUTH EVERY MORNING * Telephone Encounter - Celina Abarca LPN - 05/07/2023 1:43 PM EST Did you pend patient's preferred pharmacy and medication before forwarding? Yes Pharmacy: [facility] Pending Prescriptions: Disp Refills Roflumilast 500 MCG Oral Tablet (Daliresp)90 Tab*0 Sig: TAKE ONE TABLET BY MOUTH EVERY MORNING Last Visit: 05/01/2022 (in office), 05/07/2020 (telemedicine) Next Visit: 05/24/2023 If no future appointments scheduled, and last appointment is greater than a year ago, please schedule patient for a follow-up appointment Last date the medication was ordered: 11/26/22 Is this request for a controlled substance?No [...] AM HGBA1C 6.1 (H) 11/30/2019 09:17 AM * Telephone Encounter - Naomi Bay OSA - 05/07/2023 1:42 PM ESTPending Prescriptions: Disp Refills Roflumilast 500 MCG Oral Tablet (Daliresp) 90 Tab*1 Sig: TAKE ONE TABLET BY MOUTH EVERY MORNING * Telephone Encounter - Naomi Bay OSA - 05/07/2023 1:41 PM EST Pt is scheduled for May 24 * Telephone Encounter - Naomi Bay OSA - 05/07/2023 10:18 AM EST Lmom to schedule pulmonary appt * Telephone Encounter - Celina Abarca LPN - 05/07/2023 8:46 AM ESTPending Prescriptions: Disp Refills Roflumilast 500 MCG Oral Tablet (Daliresp) 90 Tab*1 Sig: TAKE ONE TABLET BY MOUTH EVERY MORNING * Telephone Encounter - Celina Abarca LPN - 05/07/2023 8:45 AM EST Last Visit: 05/01/2022 (in office), 05/07/2020 (telemedicine) Next Visit: Visit date not found Pt was to have a 6 month f/u visit. If no future appointments scheduled, and last appointment is greater than a year ago, please schedule patient for a follow-up appointment documented in this encounter Plan of Treatment Upcoming Encounters Date Type Department Care Team (Late st Contact Info) Description 05/18/2023 1:00 PM EST Office Visit Gastroenterology, [facility] [address] [facility] [place] [address] Agnes Bowers CRNP [address] [facility] [place] [address] 05/24/2023 3:00 PM EST Office Visit Pulmonary Medicine, [facility] 132 [facility] [place] [address] Hi Lopez MD [address] [place] [address] 05/31/2023 11:40 AM EST Office Visit Podiatry [facility] [address] [place] [address] Bettye Herrmann, DP [address] [facility] [place] [address] 06/28/2023 10:30 AM EDT Office Visit Orthopaedics [facility] [address] [place] [address] Zander Wilkins, DO [address] [place] [address] 06/29/2023 2:00 PM EDT Office Visit Otolaryngology [facility] [address] [facility] [place] [address] [place], [address] [place] [address] 07/08/2023 10:00 AM EDT Imaging Radiology [facility] [address] [facility] [place] [address] 07/13/2023 11:00 AM EDT Office Visit Radiation Oncology, [address] [place] [address] Shawna Johnson MD [address] [place] [address] [place] [address] 07/19/2023 11:40 AM EDT Office Visit Family Practice [facility] [address] [facility] [place] [address] Johnnie Newby MD [address] [place] [address] 09/16/2023 9:00 AM EDT Office Visit Cardiology, [facility] [place] [address] Deisy Aguirre CRNP [address] [place] [address] Scheduled Procedures Name Priority Associated Diagnoses Date/Ti me COLONOSCOPY FLEXIBLE PROXIMA L DIAGNOSTIC Recall History of colonic polyps Health Maintenance Due Date Last Done Comments Hepatitis B (1 of 3 - Risk 3-dose series) 2003 Diabetic Eye Exam 04/09/2023 04/09/2022, , 03/30/2020, Additional history exists COVID-19 Vaccine ( season) 2023 02/25/2023, 02/10/2022, 07/13/2020, Additional history exists DISCUSS TOBACCO CESSATION (REFER TO SMARTSET #0749) 05/01/2023 05/01/2022, 02/13/2022 Diabetic Foot Exam 09/10/2023 09/09/2022, 1 , 11/12/2017, Additional history exists HbA1c 10/16/2023 04/16/2023, 12/19, 06/05/2022, Additional history exists GFR 10/17/2023 04/18/2023, 03/21, 04/16/2023, Additional history exists DTaP,Tdap,and Td Vaccines (2 - Td or Tdap) 01/06/2024 01/05/2014 O2 ASSESSMENT COMPLETED IN PAST YEAR FOR COPD 01/15/2024 01/14/2023 Albumin/Creatinine Ratio 02/05/2024 023, 01/15/2023, 06/04/2021, Additional history exists CKD PHOS USE SMARTSET 12043 04/15/202403/20, 06/05/2022, 06/03/2021, Additional history exists CKD HGB USE SMARTSET 31596 04/18/202404/18, 04/17/2023, 04/16/2023, Additional history exists Depression [...] this encounter Medical Devices Implanted Type Area Criminal Justice Professor Device Identifier Shelf Expiration Date Model / Serial / Lot Lens Intraoc 24.0 - [id number] - [id number] Implanted:Qty: 1 on 06/01/2017 by Nikhil Bolton MD at OR [facility] Left: Eye [employer]CH [employer]OMB 07/17/2021 [id number] / [id number] / [id number] Lens Intraoc 24.0 - [id number] - [id number] Implanted:Qty: 1 on 06/08/2017 by Nikhil Bolton MD at OR [facility] Right: Eye BAUSCH [employer] LOMB 07/17/2021 [id number] / [id number] / [id number] documented as of this encounter Visit Diagnoses Diagnosis COPD, group D, by GOLD 2017 classification ([facility]) documented in this encounter Advance Directives Documents on File Type Date Recorded Patient Insurance Healthcare Consultant Expl 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 Care Teams Inspector Subassemblies Relationship Specialty Start Date End Date Johnnie Newby MD [address] [place] [address] PCP - General Family Medicine 09/13/20 documented as of this encounter
--- OUTSIDE RECORDS SUMMARY | 2023-07-12 18:48 | External Medical Summary | Summary of Care ---
Author Name Unknown Organization [facility] Address [address] [place] [address] Phone [phone] Care Team Providers Care Human Resources Hr Generalist Name Role Phone Johnnie Newby MD Primary Care Provider [phone] Reason for Visit * Reason Onset Date Comments Medication Refill 05/13/2023 Encounter Details Date Type Department Care Team (Late st Contact Info) Description 05/13/2023 Refill Care Coordination and Integration [address], [place] [id number] Bianca Tao, RN [address], [place] [id number] Allergies Active Allergy Reactions Criticality Noted Date Comments Acetaminophen 05/06/2005 headaches documented as of this encounter (statuses as of 05/13/2023) Medications Medication Sig Dispensed Refills Start Date End Date Status DAILY MULTIVITAMIN PO TABS with lycopene 0 Active BUSPAR 15 MG PO TABS Take by mouth. Uses as needed 0 Active clonazePAM (KLONOPIN) 0.5 MG Tablet Uses as needed 0 06/17/2016 Active ONETOUCH ULTRA BLUE STRPIndications:Typ e 2 diabetes mellitus with hemoglobin A1c goal of less than 7.0% ([facility]) TEST ONCE DAILY 100 Strip 5 03/02/2018 Active BiPAP every night at bedtime. 0 Active Vitamin B-12 1000 MCG Oral Tablet (Cyanocobalamin) Take 1 Tablet by mouth in the morning. 0 Active Isosorbide Mononitrate ER 60 MG Oral Tablet Extended Release 24 Hour (Imdur)Indications: Coronary artery disease involving kal[place] coronary artery without angina pectoris TAKE ONE TABLET BY MOUTH EVERY MORNING 90 Tablet 3 09/18/2022 4 Active Tiotropium [place] Monohydrate 18 MCG Inhalation Capsule (Spiriva) INHALE ONE CAPSULE VIA HANDIHALER EVERY MORNING. DO NOT SWALLOW CAPSULE. 90 Capsule 3 06/26/2022 4 Active Roflumilast 500 MCG Oral Tablet (Daliresp)Indicatio ns:COPD, group D, by GOLD 2017 classification ([facility]) TAKE ONE TABLET BY MOUTH EVERY MORNING 90 Tablet 1 11/26/2022 4 Active Apixaban 5 MG Oral Tablet (Eliquis) Take 1 Tablet by mouth in the morning and 1 Tablet before bedtime. 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 10.7 g 2 05/11/2023 Discontinu ed(Refill) Hospital, Clinic, or Other Facility Administered Medication Ordered Dose Route Frequency Start Date End Date Status albuterol sulfate (PROVENTIL) (2.5 MG/3ML) 0.083% inhalation solution 2.5 mgIndications:COPD, severe (HCC) 2.5 mg NEBULIZER Q4H PRN 07/08/2018 Active documented as of this encounter (statuses as of 05/13/2023) Active Problems Problem Noted Date Diagnosed Date [...] tis 01/05/2014 Coronary artery disease invo lving kalisp[place] coronary artery of kalisp[place] heart without angina pectoris 11/27/2013 Tobacco abuse 11/27/2013 HTN, goal below 130/80 03/06/2009 Overview: Modified per HTN protocol #16. documented as of this encounter (statuses as of 05/13/2023) Resolved Problems Problem Noted Date Diagnosed Date [...] as of this encounter (statuses as of 05/13/2023) Immunizations Name Administration Dates Next Due COVID-19 mRNA, LNP-s, No Pre serve, 2-Dose Series ([employer]) 02/25/2023,02/10/2022,07/13/2020,06/17 Pneumococcal Conjugate Vacc, 13 Valent (Prevnar) [...] preferred pharmacy and medication before forwarding?yes Pharmacy: [facility] Pending Prescriptions: Disp Refills [...] 05/18/2023 1:00 PM EST Office Visit Gastroenterology, [facility] [address] [facility] [place] [address] Agnes Bowers CRNP [address] [place] [address] 05/24/2023 3:00 PM EST Office Visit Pulmonary Medicine, [facility] [address] [facility] [place] [address] Hi Dave MD [address] [place] [address] 05/31/2023 11:40 AM EST Office Visit Podiatry [facility] [address] [facility] [place] [address] Bettye Herrmann, DPM [address] [facility] [place] [address] 06/28/2023 10:30 AM EDT Office Visit Orthopaedics [facility] [place] [address] Zander Wilkins, DO [address] [place] [address] 06/29/2023 2:00 PM EDT Office Visit Otolaryngology [facility] [address] [facility] [place] [address] Du Mota, [address] [place] [address] 07/08/2023 10:00 AM EDT Imaging Radiology [address] [facility] [place] [address] 07/13/2023 11:00 AM EDT Office Visit Radiation Oncology, [address] [place] [address] Shawna Johnson MD [address] [place] [address] [place] [address] 07/19/2023 11:40 AM EDT Office Visit Family Practice [facility] [address] [facility] [place] [address] Johnnie Newby MD [address] [place] [address] 09/16/2023 9:00 AM EDT Office Visit Cardiology, [facility] [address] [facility] [place] [address] Deisy Aguirre CRNP [address] [place] [address] Scheduled Procedures Name Priority Associated Diagnoses Date/Ti me COLONOSCOPY FLEXIBLE PROXIMA L DIAGNOSTIC Recall History of colonic polyps Health Maintenance Due Date Last Done Comments Hepatitis B (1 of 3 - Risk 3-dose series) 2003 Diabetic Eye Exam 04/09/2023 04/09/2022, , 03/30/2020, Additional history exists COVID-19 Vaccine ( season) 2023 02/25/2023, 02/10/2022, 07/13/2020, Additional history exists DISCUSS TOBACCO CESSATION (REFER TO SMARTSET #7624) 05/01/2023 05/01/2022, 02/13/2022 Diabetic Foot Exam 09/10/2023 09/09/2022, 1 , 11/12/2017, Additional history exists HbA1c 10/16/2023 04/16/2023, 12/19, 06/05/2022, Additional history exists GFR 10/17/2023 04/18/2023, 03/21, 04/16/2023, Additional history exists DTaP,Tdap,and Td Vaccines (2 - Td or Tdap) 01/06/2024 01/05/2014 O2 ASSESSMENT COMPLETED IN PAST YEAR FOR COPD 01/15/2024 01/14/2023 Albumin/Creatinine Ratio 02/05/2024 023, 01/15/2023, 06/04/2021, Additional history exists CKD PHOS USE SMARTSET 77315 04/15/202403/20, 06/05/2022, 06/03/2021, Additional history exists CKD HGB USE SMARTSET 51138 04/18/202404/18, 04/17/2023, 04/16/2023, Additional history exists Depression [...] this encounter Medical Devices Implanted Type Area Financial Services Rep Device Identifier Shelf Expiration Date Model / Serial / Lot Lens Intraoc 24.0 - [id number] - [id number] Implanted:Qty: 1 on 06/01/2017 by Nikhil Bolton MD at OR [facility] Left: Eye [employer] LOMB 07/17/2021 [id number] / [id number] / [id number] Lens Intraoc 24.0 - [id number] - [id number] Implanted:Qty: 1 on 06/08/2017 by Nikhil Bolton MD at OR [facility] Right: Eye BAUSCH & LOMB 07/17/2021 [id number] / [id number] / [id number] documented as of this encounter Advance Directives Documents on File Type Date Recorded Patient Sign Language Translator Expl 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 Care Teams Human Resources Hr Generalist Relationship Specialty Start Date End Date Johnnie Newby MD [address] [place] [address] PCP - General Family Medicine 09/13/20 documented as of this encounter
--- OUTSIDE RECORDS SUMMARY | 2023-07-12 18:48 | External Medical Summary | Summary of Care ---
Author Name Unknown Organization [facility] Address [address] [place] [address] Phone [phone] Care Team Providers Care Tube Washer Name Role Phone Johnnie Newby MD Primary Care Provider [phone] Reason for Visit * Reason Onset Date Comments Medication Refill 05/12/2023 Encounter Details Date Type Department Care Team (Late st Contact Info) Description 05/12/2023 Refill Podiatry [facility] [address] [facility] [place] [address] Jannette Rahman, DPM [address] [place] [address] Allergies Active Allergy Reactions Criticality Noted Date Comments Acetaminophen 05/06/2005 headaches documented as of this encounter (statuses as of 05/12/2023) Medications Medication Sig Dispensed Refills Start Date [...] 24 Hour (Imdur)Indications: Coronary artery disease involving [place] coronary artery without angina pectoris TAKE ONE TABLET BY MOUTH EVERY MORNING 90 Tablet 3 09/18/2022 4 Active Tiotropium [place] Monohydrate 18 MCG Inhalation Capsule (Spiriva) INHALE ONE CAPSULE VIA HANDIHALER EVERY MORNING. DO NOT SWALLOW CAPSULE. 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 10.7 g 2 05/11/2023 4 Active Gabapentin 300 MG Oral Capsule (Neurontin) Take 1 Capsule by mouth at bedtime. 90 Capsule 3 05/12/2023 Active Gabapentin 300 MG Oral Capsule (Neurontin) Take by mouth 1 Capsule before bedtime. 90 Capsule 3 09/10/2021 4 Discontinu ed(Refill) Hospital, Clinic, or Other Facility Administered Medication Ordered Dose Route Frequency Start Date End Date Status albuterol sulfate (PROVENTIL) (2.5 MG/3ML) 0.083% inhalation solution 2.5 mgIndications:COPD, severe (HCC) 2.5 mg NEBULIZER Q4H PRN 07/08/2018 Active documented as of this encounter (statuses as of 05/12/2023) Active Problems Problem Noted Date Diagnosed Date [...] tis 01/05/2014 Coronary artery disease invo lving [place] coronary artery of [place] heart without angina pectoris 11/27/2013 Tobacco abuse 11/27/2013 HTN, goal below 130/80 03/06/2009 Overview: Modified per HTN protocol #16. documented as of this encounter (statuses as of 05/12/2023) Resolved Problems Problem Noted Date Diagnosed Date [...] as of this encounter (statuses as of 05/12/2023) Immunizations Name Administration Dates Next Due COVID-19 [...] encounter Miscellaneous Notes * Telephone Encounter - Jannette Rahman DPM - 05/12/2023 12:54 PM ESTSigned Prescriptions: Disp Refills Gabapentin 300 MG Oral Capsule (Neurontin) 90 Cap*3 Sig: Take 1 Capsule by mouth at bedtime. Authorizing Provider: JANNETTE RAHMAN * Telephone Encounter - Barbara Newton LPN - 05/12/2023 12:26 PM ESTPending Prescriptions: Disp Refills Gabapentin 300 MG Oral Capsule (Neurontin) 90 Cap*3 Sig: Take 1 Capsule by mouth at bedtime. documented in this encounter Plan of Treatment Upcoming Encounters Date Type Department Care Team (Late st Contact Info) Description 05/18/2023 1:00 PM EST Office Visit Gastroenterology, [facility] [address] [place] [address] Agnes Bowers CRNP [address] [place] [address] 05/24/2023 3:00 PM EST Office Visit Pulmonary Medicine, [facility] [address] [place] [address] Hi Lopez MD [address] [place] [address] 05/31/2023 11:40 AM EST Office Visit Podiatry [facility] [address] [place] [address] Jannette Rahman, DPM [address] [facility] [place] [address] 06/28/2023 10:30 AM EDT Office Visit Orthopaedics [facility] [address] [facility] [place] [address] Zander Wilkins, DO [address] [place] [address] 06/29/2023 2:00 PM EDT Office Visit Otolaryngology [facility] [address] [facility] [place] [address] Du Mota, DO [address] [place] [address] 07/08/2023 10:00 AM EDT Imaging Radiology [facility] [address] [place] [address] [facility] [place] [address] 07/13/2023 11:00 AM EDT Office Visit Radiation Oncology, [address] [place] [address] Shawna Johnson MD Medical [place] [address] 07/19/2023 11:40 AM EDT Office Visit Family Practice [facility] [address] [facility] [place] [address] Johnnie Newby MD [address] [place] [address] 09/16/2023 9:00 AM EDT Office Visit Cardiology, [facility] [address] [place] [address] Deisy Aguirre CRNP [address] [place] [address] Scheduled Procedures Name Priority Associated Diagnoses Date/Ti [...] Additional history exists CKD PHOS USE SMARTSET 51530 04/15/202403/20, 06/05/2022, 06/03/2021, Additional history exists CKD HGB USE SMARTSET 52038 04/18/202404/18, 04/17/2023, 04/16/2023, Additional history exists Depression [...] this encounter Medical Devices Implanted Type Area Wholesale Manager Device Identifier Shelf Expiration Date Model / Serial / Lot Lens Intraoc 24.0 - [id number] - [id number] Implanted:Qty: 1 on 06/01/2017 by Nikhil Bolton MD at OR [facility] Left: Eye BAUSCH & LOMB 07/17/2021 [id number] / [id number] / [id number] Lens Intraoc 24.0 - [id number] - [id number] Implanted:Qty: 1 on 06/08/2017 by Nikhil Bolton MD at OR [facility] Right: Eye BAUSCH [employer] LOMB 07/17/2021 [id number] / [id number] / [id number] documented as of this encounter Advance Directives Documents on File Type Date Recorded Patient Business Information Analyst Expl anation Advance Directives and Yu [...] and were consensually agreed upon. Care Teams Tube Washer Relationship Specialty Start Date End Date Johnnie Newby MD [address] [place] [address] PCP - General Family Medicine 09/13/20 documented as of this encounter
--- OUTSIDE RECORDS SUMMARY | 2023-07-12 18:48 | External Medical Summary | Summary of Care ---
Author Name Unknown Organization [facility] Address [address] [place] [facility] [place] [address] Phone [phone] Care Team Providers Care Meat Team Lead Name Role Phone Johnnie Newby MD Primary Care Provider [phone] Reason for Visit * Reason Comments Medication Refill Encounter Details Date Type Department Care Team (Late st Contact Info) Description 05/10/2023 Refill Pulmonary Medicine, [facility] [address] [facility] [place] [address] Hui Bishop CRNP [address] [facility] [place] [address] COPD, group B, by GOLD 2017 classification ([facility]) Allergies Active Allergy Reactions Criticality Noted Date Comments Acetaminophen 05/06/2005 headaches documented as of this encounter (statuses as of 05/11/2023) Medications Medication Sig Dispensed Refills Start Date End Date Status DAILY MULTIVITAMIN PO TABS with lycopene 0 Active BUSPAR 15 MG PO TABS Take by mouth. Uses as needed 0 Active clonazePAM (KLONOPIN) 0.5 MG Tablet Uses as needed 0 06/17/2016 Active ONETOUCH ULTRA BLUE STRPIndications:Typ e 2 diabetes mellitus with hemoglobin A1c goal of less than 7.0% ([facility]) TEST ONCE DAILY 100 Strip 5 03/02/2018 Active Gabapentin 300 MG Oral Capsule (Neurontin) Take by mouth 1 Capsule before bedtime. 90 Capsule 3 09/10/2021 Active BiPAP every night at bedtime. 0 Active Vitamin B-12 1000 MCG Oral Tablet (Cyanocobalamin) Take 1 Tablet by mouth in the morning. 0 Active Isosorbide Mononitrate ER 60 MG Oral Tablet Extended Release 24 Hour (Imdur)Indications: Coronary artery disease involving nikolai coronary artery without angina pectoris TAKE ONE TABLET BY MOUTH EVERY MORNING 90 Tablet 3 09/18/2022 4 Active Tiotropium [place] Monohydrate 18 MCG Inhalation Capsule (Spiriva) INHALE ONE CAPSULE VIA HANDIHALER EVERY MORNING. DO NOT SWALLOW CAPSULE. 90 Capsule 3 06/26/2022 4 Active Roflumilast 500 MCG Oral Tablet (Daliresp)Indicatio ns:COPD, group D, by GOLD 2017 classification ([facility]) TAKE ONE TABLET BY MOUTH EVERY MORNING 90 Tablet 1 11/26/2022 4 Active Apixaban 5 MG Oral Tablet (Eliquis) Take 1 Tablet by mouth in the morning and 1 Tablet before bedtime. 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 ([facility]) INHALE TWO PUFFS BY MOUTH EVERY MORNING AND INHALE TWO PUFFS BY MOUTH AT BEDTIME, RINSE MOUTH AFTER USE 36 g 3 05/11/2023 5 Active Fluticasone-[place]met[place] rol 230-21 MCG/ACT Inhalation Aerosol (Advair)Indications :COPD, group B, by GOLD 2017 classification ([facility]) INHALE TWO PUFFS BY MOUTH EVERY MORNING AND INHALE TWO PUFFS BY MOUTH AT BEDTIME, RINSE MOUTH AFTER USE 36 g 3 04/17/2022 4 Discontinu ed(Refill) Hospital, Clinic, or Other Facility Administered Medication Ordered Dose Route Frequency Start Date End Date Status albuterol sulfate (PROVENTIL) (2.5 MG/3ML) 0.083% inhalation solution 2.5 mgIndications:COPD, severe (HCC) 2.5 mg NEBULIZER Q4H PRN 07/08/2018 Active documented as of this encounter (statuses as of 05/11/2023) Active Problems Problem Noted Date Diagnosed Date [...] tis 01/05/2014 Coronary artery disease invo lving nikolai coronary artery of nikolai heart without angina pectoris 11/27/2013 Tobacco abuse 11/27/2013 HTN, goal below 130/80 03/06/2009 Overview: Modified per HTN protocol #16. documented as of this encounter (statuses as of 05/11/2023) Resolved Problems Problem Noted Date Diagnosed Date [...] as of this encounter (statuses as of 05/11/2023) Immunizations Name Administration Dates Next Due COVID-19 mRNA, LNP-s, No Pre serve, 2-Dose Series (Bomberbot) 02/25/2023,02/10/2022,07/13/2020,06/17 Pneumococcal Conjugate Vacc, 13 Valent (Prevnar) [...] Telephone Encounter - Hi Dave MD - 05/11/2023 4:38 PM EST Signed Prescriptions: Disp Refills Fluticasone-Salmeterol 230-21 MCG/ACT Inha*36 g 3 Sig: INHALE TWO PUFFS BY MOUTH EVERY MORNING AND INHALE TWO PUFFS BY MOUTH AT BEDTIME, RINSE MOUTH AFTER USE Authorizing Provider: HI DAVE * Telephone Encounter - Hui Bishop CRNP - 05/11/2023 9:02 AM EST Pending Prescriptions: Disp Refills Fluticasone-Salmeterol 230-21 MCG/ACT Inha*36 g 3 Sig: INHALE TWO PUFFS BY MOUTH EVERY MORNING AND INHALE TWO PUFFS BY MOUTH AT BEDTIME, RINSE MOUTH AFTER USE * Telephone Encounter - Ethel Guerra LPN - 05/10/2023 1:33 PM ESTPending Prescriptions: Disp Refills Fluticasone-Salmeterol 230-21 MCG/ACT Inha*36 g 3 Sig: INHALE TWO PUFFS BY MOUTH EVERY MORNING AND INHALE TWO PUFFS BY MOUTH AT BEDTIME, RINSE MOUTH AFTER USE * Telephone Encounter - Ethel Guerra LPN - 05/10/2023 1:30 PM ESTPending Prescriptions: Disp Refills Fluticasone-Salmeterol 230-21 MCG/ACT Inha*36 g 3 Sig: INHALE TWO PUFFS BY MOUTH EVERY MORNING AND INHALE TWO PUFFS BY MOUTH AT BEDTIME, RINSE MOUTH AFTER USE * Telephone Encounter - Joyce Lopez, [employer] - 05/10/2023 11:22 AM EST Patient is up to date for office visits. Pending Prescriptions: Disp Refills Fluticasone-Salmeterol 230-21 MCG/ACT Inh*36 g 3 Sig: INHALE TWO PUFFS BY MOUTH EVERY MORNING AND INHALE TWO PUFFS BY MOUTH AT BEDTIME, RINSE MOUTH AFTER USE Last Visit: 05/01/2022 (in office), 05/07/2020 (telemedicine) Next Visit: 05/24/2023 If no future appointments scheduled, and last appointment is greater than a year ago, please schedule patient for a follow-up appointment Last date the medication was ordered: 04/17/2022 Pharmacy: [facility] Is this request for a controlled substance?No it is not controlled. Urine Drug Screen:No results found. However, due [...] 05/18/2023 1:00 PM EST Office Visit Gastroenterology, [facility] 132 [facility] [place] [address] Agnes Bowers CRNP 132 [facility] [place] [address] 05/24/2023 3:00 PM EST Office Visit Pulmonary Medicine, [facility] [address] [facility] [place] [address] Hi Dave MD [address] [place] [address] 05/31/2023 11:40 AM EST Office Visit Podiatry [facility] [address] [facility] [place] [address] Bettye Herrmann, DPM [address] [place], [place] [address] [address] 06/28/2023 10:30 AM EDT Office Visit [facility]opaedics [facility] [place] [address] Zander Wilkins, DO [address] [place] [address] 06/29/2023 2:00 PM EDT Office Visit Otolaryngology [facility] [address] [facility] [place] [address] Du Mota, DO 132 [facility] [place] [address] 07/08/2023 10:00 AM EDT Imaging Radiology [address] [facility] [place] [address] 07/13/2023 11:00 AM EDT Office Visit Radiation Oncology, [address] [place] [address] Shawna Johnson MD Medical [place] [address] 07/19/2023 11:40 AM EDT Office Visit Family Practice [facility] [address] [facility] [place] [address] Johnnie Newby MD [address] [place] [address] 09/16/2023 9:00 AM EDT Office Visit Cardiology, [facility] [address] [facility] [place] [address] Deisy Aguirre CRNP 132 [facility] [place] [address] Scheduled Procedures Name Priority Associated Diagnoses Date/Ti [...] Additional history exists CKD PHOS USE SMARTSET 66638 04/15/202403/20, 06/05/2022, 06/03/2021, Additional history exists CKD HGB USE SMARTSET 12210 04/18/202404/18, 04/17/2023, 04/16/2023, Additional history exists Depression [...] this encounter Medical Devices Implanted Type Area Union Carpenter Device Identifier Shelf Expiration Date Model / Serial / Lot Lens Intraoc 24.0 - [id number] - [id number] Implanted:Qty: 1 on 06/01/2017 by Nikhil Bolton MD at [place] [facility] Left: Eye [employer]CH [employer] LOMB 07/17/2021 [id number] / [id number] / [id number] Lens Intraoc 24.0 - [id number] - [id number] Implanted:Qty: 1 on 06/08/2017 by Nikhil Bolton MD at OR [facility] Right: Eye BAUSCH [employer] LOMB 07/17/2021 [id number] / [id number] / [id number] documented as of this encounter Visit Diagnoses Diagnosis COPD, group B, by GOLD 2017 classification (HCC) documented in this encounter Advance Directives Documents on File Type Date Recorded Patient Satellite Tv Technician Expl 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 Care Teams Meat Team Lead Relationship Specialty Start Date End Date Johnnie Newby MD [address] [place] [address] PCP - General Family Medicine 09/13/20 documented as of this encounter
--- OUTSIDE RECORDS SUMMARY | 2023-07-12 18:48 | External Medical Summary | Summary of Care ---
Author Name Unknown Organization [facility] Address [address] [address] Phone [phone] Care Team Providers Care Dietary Assistant Name Role Phone Johnnie Newby MD Primary Care Provider [phone] Reason for Visit * Reason Onset Date Comments Test Results 02/01/2023 Encounter Details Date Type Department Care Team (Late st Contact Info) Description 02/01/2023 Telephone Cardiology, [facility] [address] [facility] [place] [id number] Zack Brewer PA-C [address] [facility] [place] [id number] Test Results Allergies Active Allergy Reactions Criticality Noted Date Comments Acetaminophen 05/06/2005 headaches documented as of this encounter (statuses as of 05/03/2023) Medications Medication Sig Dispensed Refills Start Date [...] Base) MCG/ACT Inhalation Aerosol SolutionIndications: COPD, moderate ([facility]) Take 2 Puffs by mouth [...] 24 Hour (Imdur)Indications:C oronary artery disease involving big sandy coronary artery without angina pectoris TAKE ONE TABLET BY MOUTH EVERY MORNING 90 Tablet 3 09/18/2022 09/18/2023 Active Tiotropium [place] Monohydrate 18 MCG Inhalation Capsule (Spiriva) INHALE ONE CAPSULE VIA HANDIHALER EVERY MORNING. DO NOT SWALLOW CAPSULE. 90 Capsule 3 06/26/2022 06/26/2023 Active Fluticasone-Salmeter ol 230-21 MCG/ACT Inhalation Aerosol (Advair)Indications: COPD, group B, by GOLD 2017 classification ([facility]) INHALE TWO PUFFS BY MOUTH EVERY MORNING AND INHALE TWO PUFFS BY MOUTH AT BEDTIME, RINSE MOUTH AFTER USE 36 g 3 04/17/2022 05/18/2023 Active Roflumilast 500 MCG Oral Tablet (Daliresp)Indication s:COPD, group D, by GOLD 2017 classification ([facility]) TAKE ONE TABLET BY MOUTH EVERY MORNING 90 Tablet 1 11/26/2022 11/26/2023 Active Apixaban 5 MG Oral Tablet (Eliquis) Take 1 Tablet by mouth in the morning and 1 Tablet before bedtime. 180 Tablet 3 12/08/2022 Active Metoprolol Succinate ER 25 MG Oral Tablet Extended Release 24 Hour (toPROL XL)Indications:SVT (supraventricular tachycardia),NSVT (nonsustained ventricular tachycardia) ([facility]) TAKE ONE TABLET BY MOUTH EVERY DAY 90 Tablet 3 12/09/2022 12/09/2023 Active Atorvastatin Calcium 80 MG Oral Tablet (Lipitor) TAKE ONE TABLET BY MOUTH AT BEDTIME 90 Tablet 1 12/09/2022 12/09/2023 Active Vitron-C 65-125 MG Oral Tablet (Iron-Vitamin [...] as of this encounter (statuses as of 05/03/2023) Active Problems Problem Noted Date Diagnosed Date [...] valve stenosis 11/30/2019 NSVT (nonsustained ventricular tachycardia) 07/2 10/2019 Carotid stenosis, non-symptomatic 05/31/2019 COPD, group D, [...] tis 01/05/2014 Coronary artery disease invo lving big sandy coronary artery of big sandy heart without angina pectoris 11/27/2013 Tobacco abuse 11/27/2013 HTN, goal below 130/80 03/06/2009 Overview: Modified per HTN protocol #16. documented as of this encounter (statuses as of 05/03/2023) Resolved Problems Problem Noted Date Diagnosed Date [...] as of this encounter (statuses as of 05/03/2023) Immunizations Name Administration Dates Next Due COVID-19 [...] encounter Miscellaneous Notes * Telephone Encounter - Radha Barrios, YISSEL - 02/01/2023 12:51 PM EDT Who is Requesting Test Results: self Primary Care Provider : Johnnie Newby MD Tests Results Requested : Labs Date of Test : 01/18 Location of Test: Ordering Provider: jose ramon Meeks Callback Number: [phone] Pt states he thought he was to go back to lab in 2 weeks after 01/18 labs, no labs on file. Pt unsure how to proceed. Please advise Patient has been made aware that the turnaround time for test results are typically as follows: Laboratory results = within 2 days Urine Cultures = within 2-3 days depending on growth within the culture Pathology results (biopsy results/PAP) = 1-2 weeks Radiology results = within 1 week Cologuard results = within 2 weeks from the shipment date COVID testing = results are on average 7 days documented in this encounter Plan of Treatment Upcoming Encounters Date Type Department Care Team (Late st Contact Info) Description 05/18/2023 1:00 PM EST Office Visit Gastroenterology, [facility] 132 [facility] [place] [address] Agnes Bowers CRNP 132 [facility] [place] [address] 05/31/2023 11:40 AM EST Office Visit Podiatry [facility] 132 [facility] [place] [address] Bettye Herrmann, SAMM [address] [place] [address] [place] [address] 06/28/2023 10:30 AM EDT Office Visit Orthopaedics [facility] 132 [facility] [place] [address] Zander Wilkins DO [address] [place] [address] 06/29/2023 2:00 PM EDT Office Visit Otolaryngology [facility] [address] [place] [address] Du Mota DO [address] [place] [address] 07/08/2023 10:00 AM EDT Imaging Radiology [facility] [address] [place] [address] 07/13/2023 11:00 AM EDT Office Visit Radiation Oncology, [place] [address] [facility] [place] [address] Shawna Johnson MD [facility] [place] [address] 07/19/2023 11:40 AM EDT Office Visit Family Practice [facility] [place] [address] Johnnie Newby MD [address] [place] [address] 09/16/2023 9:00 AM EDT Office Visit Cardiology, [facility] [place] [address] Jose Ramon Aguirre CRNP [address] [place] [address] Scheduled Procedures Name Priority Associated Diagnoses Date/Ti me COLONOSCOPY FLEXIBLE PROXIMA L DIAGNOSTIC Recall History of colonic polyps Health Maintenance Due Date Last Done Comments Hepatitis B (1 of 3 - Risk 3-dose series) 2003 Diabetic Eye Exam 04/09/2023 04/09/2022, , 03/30/2020, Additional history exists COVID-19 Vaccine ( season) 2023 02/25/2023, 02/10/2022, 07/13/2020, Additional history exists DISCUSS TOBACCO CESSATION (REFER TO SMARTSET #6552) 05/01/2023 05/01/2022, 02/13/2022 Diabetic Foot Exam 09/10/2023 09/09/2022, 1 , 11/12/2017, Additional history exists HbA1c 10/16/2023 04/16/2023, 12/19, 06/05/2022, Additional history exists GFR 10/17/2023 04/18/2023, 03/21, 04/16/2023, Additional history exists DTaP,Tdap,and Td Vaccines (2 - Td or Tdap) 01/06/2024 01/05/2014 O2 ASSESSMENT COMPLETED IN PAST YEAR FOR COPD 01/15/2024 01/14/2023 Albumin/Creatinine Ratio 02/05/2024 023, 01/15/2023, 06/04/2021, Additional history exists CKD PHOS USE SMARTSET 25679 04/15/202403/20, 06/05/2022, 06/03/2021, Additional history exists CKD HGB USE SMARTSET 57614 04/18/202404/18, 04/17/2023, 04/16/2023, Additional history exists Depression [...] this encounter Medical Devices Implanted Type Area Chief Analytics Officer Device Identifier Shelf Expiration Date Model / Serial / Lot Lens Intraoc 24.0 - [id number] - [id number] Implanted:Qty: 1 on 06/01/2017 by Nikhil Bolton MD at OR [facility] Left: Eye [employer] 07/17/2021 [id number] / [id number] / [id number] Lens Intraoc 24.0 - [id number] - [id number] Implanted:Qty: 1 on 06/08/2017 by Nikhil Bolton MD at OR [facility] Right: Eye [employer] 07/17/2021 [id number] / [id number] / [id number] documented as of this encounter Additional Health Concerns Infection Onset Date Last Indicated Resolved Time Respiratory Rule-Out 04/15/2023 04/16/2023 023 1:47 AM EST COVID-19 Rule-Out 04/15/2023 04/16/2023 04/16/2023 1:47 AM EST documented as of this encounter Advance Directives Documents on File Type Date Recorded Patient Appeals Representative Expl 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 Care Teams Dietary Assistant Relationship Specialty Start Date End Date Johnnie Newby MD [address] [address] PCP - General Family Medicine 09/13/20 documented as of this encounter
--- OUTSIDE RECORDS SUMMARY | 2023-07-12 18:48 | External Medical Summary | Summary of Care ---
Author Name Unknown Organization [facility] Address [address] [place] [facility] [place] [address] Phone [phone] Care Team Providers Care Stuntman Name Role Phone Johnnie Newby MD Primary Care Provider [phone] Reason for Visit * Reason Onset Date Comments Pre Cert/Prior Auth 05/14/2023 Airsupra 90- 80mcg/act Encounter Details Date Type Department Care Team (Late st Contact Info) Description 05/14/2023 Telephone Pulmonary Medicine [place] [facility] [address] [place] [address] Hi Lopez MD [address] [place] [address] Pre Cert/Prior Auth (Airsupra 90-80mcg/act) Allergies Active Allergy Reactions Criticality Noted Date [...] 24 Hour (Imdur)Indications:C oronary artery disease involving [place] coronary artery without angina pectoris TAKE ONE TABLET BY MOUTH EVERY MORNING 90 Tablet 3 09/18/2022 4 Active Tiotropium [place] Monohydrate 18 MCG Inhalation Capsule (Spiriva) INHALE [...] (supraventricular tachycardia),NSVT (nonsustained ventricular tachycardia) ([facility]) TAKE [...] at bedtime 90 Tablet 0 05/06/2023 Active Fluticasone-Salmeter ol 230-21 MCG/ACT Inhalation Aerosol (Advair HFA)Indications:COPD , group B, by GOLD 2017 classification ([facility]) INHALE TWO PUFFS BY MOUTH EVERY MORNING AND INHALE TWO PUFFS BY MOUTH AT BEDTIME, RINSE MOUTH AFTER USE 36 g 3 05/11/2023 5 Active Gabapentin 300 MG Oral Capsule (Neurontin) Take 1 Capsule by mouth at bedtime. 90 Capsule 3 05/12/2023 Active Airsupra 90-80 MCG/ACT Inhalation Aerosol (Albuterol-Budesonid e) Inhale 2 Puffs by mouth 3 times a day as needed for Wheezing or Dyspnea. 32.1 g 2 05/13/2023 Active Hospital, Clinic, or Other Facility Administered [...] tis 01/05/2014 Coronary artery disease invo lving seneca-cay[place] coronary artery of [place] heart without angina pectoris 11/27/2013 Tobacco abuse [...] encounter Miscellaneous Notes * Telephone Encounter - Ethel Guerra LPN - 05/14/2023 1:29 PM EST A separate encounter has been made for the PA * Telephone Encounter - Janine Eisenberg CPhT - 05/14/2023 10:21 AM EST Pharmacy calling to inform doctor that the patient's insurance will not pay for this medication without a completed prior authorization. Did confirm this information with the pharmacy. Pt's current insurance information is as follows: Patient name: Walter Don ID number: [id number] BIN number: [id number] PCN number: [id number] Group number: none Subscriber name: Walter Don Primary or Secondary Insurance:Primary Medication: Airsupra 90-80 mcg/act Reason for Request: prior auth required Pharmacy and phone number: [facility] [phone] Rx plan and phone number: formerly [facility] [phone] Is this a new medication for the patient? Yes What alternative medications does the pharmacy have in stock?: none Thank you, Janine Eisenberg CphT [facility]) (formerly Telepharmacy) 05/14/2023,10:22 AM documented in this encounter Plan of Treatment Upcoming Encounters Date Type Department Care Team (Late st Contact Info) Description 05/18/2023 1:00 PM EST Office Visit Gastroenterology, [facility] [address] [place] [address] Agnes Bowers CRNP 132 [facility] [place] [address] 05/24/2023 3:00 PM EST Office Visit Pulmonary Medicine, [facility] [address] [place] [address] Hi Lopez MD [address] [place] [address] 05/31/2023 11:40 AM EST Office Visit Podiatry [facility] [address] [facility] [place] [address] Bettye Herrmann, DPM [address] [facility] [place] [address] 06/28/2023 10:30 AM EDT Office Visit Orthopaedics [facility] [address] [facility] [place] [address] Zander Wilkins, DO [address] [place] [address] 06/29/2023 2:00 PM EDT Office Visit Otolaryngology [facility] [address] [facility] [place] [address] Du Mota, [address] [place] [address] 07/08/2023 10:00 AM EDT Imaging Radiology [facility] 1st Floor, [place] [address] [facility] [place] [address] 07/13/2023 11:00 AM EDT Office Visit Radiation Oncology, [address] [place] [address] Shawna Johnson MD [facility] [place] [address] 07/19/2023 11:40 AM EDT Office Visit Family Practice [facility] [address] [facility] [place] [address] Johnnie Newby MD [address] [place] [address] 09/16/2023 9:00 AM EDT Office Visit Cardiology, [facility] [address] [place] [address] Deisy Aguirre CRNP [address] [place] [address] Scheduled Procedures Name Priority Associated Diagnoses Date/Ti [...] Additional history exists CKD PHOS USE SMARTSET 42673 04/15/202403/20, 06/05/2022, 06/03/2021, Additional history exists CKD HGB USE SMARTSET 89818 04/18/202404/18, 04/17/2023, 04/16/2023, Additional history exists Depression [...] this encounter Medical Devices Implanted Type Area Campground Hand Device Identifier Shelf Expiration Date Model / Serial / Lot Lens Intraoc 24.0 - [id number] - [id number] Implanted:Qty: 1 on 06/01/2017 by Nikhil Bolton MD at OR [facility] Left: Eye [employer] 07/17/2021 [id number] / [id number] / [id number] Lens Intraoc 24.0 - [id number] - [id number] Implanted:Qty: 1 on 06/08/2017 by Nikhil Bolton MD at OR [facility] Right: Eye [employer]OM[employer] 07/17/2021 [id number] / [id number] / [id number] documented as of this encounter Advance Directives Documents on File Type Date Recorded Patient Research Laboratory Specialist Expl anation Advance Directives and Yu Watkins [...] and were consensually agreed upon. Care Teams Stuntman Relationship Specialty Start Date End Date Johnnie Newby MD [address] [place] [address] PCP - General Family Medicine 09/13/20 documented as of this encounter
--- OUTSIDE RECORDS SUMMARY | 2023-07-12 18:48 | External Medical Summary | Summary of Care ---
Author Name Unknown Organization [facility] Address [address] [place] [place] [place] [address] Phone [phone] Care Team Providers Care Store Clerk Checker Name Role Phone Johnnie Newby MD Primary Care Provider [phone] Encounter Details Date Type Department Care Team (Late st Contact Info) Description 04/07/2023 Telephone Cardiology, [facility] [address] [facility] [place] [address] Warren Langford, [address] [place] [address] Allergies Active Allergy Reactions Criticality Noted Date [...] ONCE DAILY 100 Strip 5 8 Active Gabapentin 300 MG Oral Capsule (Neurontin) Take by mouth 1 Capsule before bedtime. 90 Capsule 3 2 Active BiPAP every night at bedtime. 0 Active Vitamin B-12 1000 MCG Oral Tablet (Cyanocobalamin) Take 1 Tablet by mouth in the morning. 0 Active Isosorbide Mononitrate ER 60 MG Oral Tablet Extended Release 24 Hour (Imdur)Indications :Coronary artery disease involving [place] coronary artery without angina pectoris TAKE ONE TABLET BY MOUTH EVERY MORNING 90 Tablet 3 3 09/18/19 24 Active Tiotropium [place] Monohydrate 18 MCG Inhalation Capsule (Spiriva) INHALE ONE CAPSULE VIA HANDIHALER EVERY MORNING. DO NOT SWALLOW CAPSULE. 90 Capsule 3 3 06/26/19 24 Active Roflumilast 500 MCG Oral Tablet (Daliresp)Indicati ons:COPD, group D, by GOLD 2017 classification ([place] [...] (toPROL XL)Indications:SVT (supraventricular tachycardia),NSVT (nonsustained ventricular tachycardia) ([facility] [...] for anxiety 180 Tablet 0 3 Active Omeprazole 20 MG Oral Capsule Delayed Release (PriLOSEC)Indicati ons:Gastroesophage al reflux disease without esophagitis TAKE ONE CAPSULE BY MOUTH EVERY MORNING *NEED UPDATED LABS* 90 Capsule 1 3 03/20/20 24 Active Ventolin HFA 108 (90 Base) MCG/ACT Inhalation Aerosol SolutionIndication s:COPD, moderate ([facility]) Take 2 Puffs by mouth 4 times a day as needed for Shortness of Breath or Wheezing. 54 g 1 1 05/11/19 24 Discontinued(Fo rmulary/Cost) Mirtazapine 15 MG Oral Tablet (Remeron) Take one and half tablets by mouth daily at bedtime 0 1 04/23/19 24 Discontinued Lisinopril 20 MG Oral Tablet (Prinivil)Indicati [...] s:COPD, group B, by GOLD 2017 classification ([place] [...] tis 01/05/2014 Coronary artery disease invo lving [place] band coronary artery of [place] heart without angina pectoris 11/27/2013 Tobacco abuse [...] mRNA, LNP-s, No Pre serve, 2-Dose Series ([place]) 02/25/2023,02/10/2022,07/13/2020,06/17 Pneumococcal Conjugate Vacc, 13 Valent (Prevnar) [...] Telephone Encounter - Stephanie Cooney CMA - 04/07/2023 2:54 PM EST Pt needs 1 month follow up with dr lang[place] or [place] documented in this encounter Plan of Treatment Upcoming Encounters Date Type Department Care Team (Late st Contact Info) Description 05/18/2023 1:00 PM EST Office Visit Gastroenterology, [facility] 132 [facility] [place] [address] Agnes Bowers CRNP 132 [facility] [place] [address] 05/24/2023 3:00 PM EST Office Visit Pulmonary Medicine, [facility] 132 [facility] [place] [address] Hi Lopez MD [address] [facility] [place] [address] 05/31/2023 11:40 AM EST Office Visit Podiatry [facility] 132 [facility] [place] [address] Bettye Herrmann, DPM [address] [place] [address] [place] [address] 06/28/2023 10:30 AM EDT Office Visit Orthopaedics [facility] 132 [facility] [place] [address] Zander Wilkins, DO 132 [facility] [place] [address] 06/29/2023 2:00 PM EDT Office Visit Otolaryngology [facility] 132 [facility] [place] [address] Du Mota, DO 132 [facility] [place] [address] 07/08/2023 10:00 AM EDT Imaging Radiology [facility]st [facility] 132 [facility] [place] [address] 07/13/2023 11:00 AM EDT Office Visit Radiation Oncology, [address] [place] [address] Shawna Johnson MD [address] [place] [address] [place] [address] 07/19/2023 11:40 AM EDT Office Visit Family Practice [facility] [address] [place] [address] Johnnie Newby MD [address] [place] [address] 09/16/2023 9:00 AM EDT Office Visit Cardiology, [facility] [address] [place] [address] Deisy Aguirre CRNP [address] [place] [address] Scheduled Procedures Name Priority Associated Diagnoses Date/Ti me COLONOSCOPY FLEXIBLE PROXIMA L DIAGNOSTIC Recall History of colonic polyps Health Maintenance Due Date Last Done Comments Hepatitis B (1 of 3 - Risk 3-dose series) 2003 Diabetic Eye Exam 04/09/2023 04/09/2022, , 03/30/2020, Additional history exists COVID-19 Vaccine ( season) 2023 02/25/2023, 02/10/2022, 07/13/2020, Additional history exists DISCUSS TOBACCO CESSATION (REFER TO SMARTSET #1444) 05/01/2023 05/01/2022, 02/13/2022 Diabetic Foot Exam 09/10/2023 09/09/2022, 1 , 11/12/2017, Additional history exists HbA1c 10/16/2023 04/16/2023, 12/19, 06/05/2022, Additional history exists GFR 10/17/2023 04/18/2023, 03/21, 04/16/2023, Additional history exists DTaP,Tdap,and Td Vaccines (2 - Td or Tdap) 01/06/2024 01/05/2014 O2 ASSESSMENT COMPLETED IN PAST YEAR FOR COPD 01/15/2024 01/14/2023 Albumin/Creatinine Ratio 02/05/2024 023, 01/15/2023, 06/04/2021, Additional history exists CKD PHOS USE SMARTSET 92169 04/15/202403/20, 06/05/2022, 06/03/2021, Additional history exists CKD HGB USE SMARTSET 59823 04/18/202404/18, 04/17/2023, 04/16/2023, Additional history exists Depression [...] this encounter Medical Devices Implanted Type Area Flag Car Driver Device Identifier Shelf Expiration Date Model / Serial / Lot Lens Intraoc 24.0 - [id number] - [id number] Implanted:Qty: 1 on 06/01/2017 by Nikhil Bolton MD at OR [facility] Left: Eye [employer] 07/17/2021 [id number] / [id number] / [id number] Lens Intraoc 24.0 - [id number] - [id number] Implanted:Qty: 1 on 06/08/2017 by Nikhil Bolton MD at OR [facility] Right: Eye [employer]CH [employer] LOMB 07/17/2021 [id number] / [id number] / [id number] documented as of this encounter Additional Health Concerns Infection Onset Date Last Indicated Resolved Time Respiratory Rule-Out 04/15/2023 04/16/2023 023 1:47 AM EST COVID-19 Rule-Out 04/15/2023 04/16/2023 04/16/2023 1:47 AM EST documented as of this encounter Advance Directives Documents on File Type Date Recorded Patient Superintendent Container Terminal Expl anation Advance Directives and Yu fine [...] were consensually agreed upon. Care Teams Store Clerk Checker Relationship Specialty Start Date End Date Johnnie Newby MD [address] [place] [address] PCP - General Family Medicine 09/13/20 documented as of this encounter
--- OUTSIDE RECORDS SUMMARY | 2023-07-12 18:48 | External Medical Summary | Summary of Care ---
Author Name Unknown Organization [facility] Address [address] [place] [address] Phone [phone] Care Team Providers Care Senior Quality Methods Specialist Name Role Phone Johnnie Newby MD Primary Care Provider [phone] Encounter Details Date Type Department Care Team (Late st Contact Info) Description 04/29/2023 Population Health External Data Unspecified Department Allergies [...] 90 Tablet 3 09/18/2022 4 Active Tiotropium [place] Monohydrate 18 MCG Inhalation Capsule (Spiriva) INHALE ONE CAPSULE VIA HANDIHALER EVERY MORNING. DO NOT SWALLOW CAPSULE. 90 Capsule 3 06/26/2022 4 Active Fluticasone-Salmeter ol 230-21 MCG/ACT Inhalation Aerosol (Advair)Indications: COPD, group B, by GOLD 2017 classification ([facility]) INHALE TWO PUFFS BY MOUTH EVERY MORNING AND INHALE TWO PUFFS BY MOUTH AT BEDTIME, RINSE MOUTH AFTER USE 36 g 3 04/17/2022 4 Active Roflumilast 500 MCG Oral Tablet (Daliresp)Indication s:COPD, group D, by GOLD 2017 classification ([facility]) TAKE ONE TABLET BY [...] for anxiety 180 Tablet 0 02/09/2023 Active Mirtazapine 15 MG Oral [...] tis 01/05/2014 Coronary artery disease invo lving [place] [...] 05/18/2023 1:00 PM EST Office Visit Gastroenterology, [facility] [address] [place] [address] Agnes Bowers CRNP [address] [place] [address] 05/31/2023 11:40 AM EST Office Visit Podiatry [facility] 132 [facility] [place] [address] Bettye Herrmann, DPM [address] [facility] [place] [address] 06/28/2023 10:30 AM EDT Office Visit Orthopaedics [facility] 132 [facility] [place] [address] Zander Wilkins, DO 132 [facility] [place] [address] 06/29/2023 2:00 PM EDT Office Visit Otolaryngology [facility] 132 [facility] [place] [address] [place], 132 [facility] [place] [address] 07/08/2023 10:00 AM EDT Imaging Radiology [address] 132 [facility] [place] [address] 07/13/2023 11:00 AM EDT Office Visit Radiation Oncology, [address] [place] [address] Shawna Johnson MD [address] [place] [address] [place] [address] 07/19/2023 11:40 AM EDT Office Visit Family Practice [facility] 132 [facility] [place] [address] Johnnie Newby MD [address] [place] [address] 09/16/2023 9:00 AM EDT Office Visit Cardiology, [facility] [address] [place] [address] Deisy Aguirre CRNP [address] [place] [address] Scheduled Procedures Name Priority Associated Diagnoses Date/Ti me COLONOSCOPY FLEXIBLE PROXIMA L DIAGNOSTIC Recall History of colonic polyps Health Maintenance Due Date Last Done Comments Hepatitis B (1 of 3 - Risk 3-dose series) 2003 Diabetic Eye Exam 04/09/2023 04/09/2022, , 03/30/2020, Additional history exists COVID-19 Vaccine ( season) 2023 02/25/2023, 02/10/2022, 07/13/2020, Additional history exists DISCUSS TOBACCO CESSATION (REFER TO SMARTSET #3825) 05/01/2023 05/01/2022, 02/13/2022 Diabetic Foot Exam 09/10/2023 09/09/2022, 1 , 11/12/2017, Additional history exists HbA1c 10/16/2023 04/16/2023, 12/19, 06/05/2022, Additional history exists GFR 10/17/2023 04/18/2023, 03/21, 04/16/2023, Additional history exists DTaP,Tdap,and Td Vaccines (2 - Td or Tdap) 01/06/2024 01/05/2014 O2 ASSESSMENT COMPLETED IN PAST YEAR FOR COPD 01/15/2024 01/14/2023 Albumin/Creatinine Ratio 02/05/2024 023, 01/15/2023, 06/04/2021, Additional history exists CKD PHOS USE SMARTSET 05783 04/15/202403/20, 06/05/2022, 06/03/2021, Additional history exists CKD HGB USE SMARTSET 95913 04/18/202404/18, 04/17/2023, 04/16/2023, Additional history exists Depression [...] this encounter Medical Devices Implanted Type Area Gas System Operator Device Identifier Shelf Expiration Date Model / Serial / Lot Lens Intraoc 24.0 - [id number] - [id number] Implanted:Qty: 1 on 06/01/2017 by Nikhil Bolton MD at OR [facility] Left: Eye [employer] 07/17/2021 [id number] / [id number] / [id number] Lens Intraoc 24.0 - [id number] - [id number] Implanted:Qty: 1 on 06/08/2017 by Nikhil Bolton MD at OR [facility] Right: Eye [employer]OMB 07/17/2021 [id number] / [id number] / [id number] documented as of this encounter Advance Directives Documents on File Type Date Recorded Patient Osteologist Expl 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 Care Teams Senior Quality Methods Specialist Relationship Specialty Start Date End Date Johnnie Newby MD [address] [place] [address] PCP - General Family Medicine 09/13/20 documented as of this encounter
--- OUTSIDE RECORDS SUMMARY | 2023-07-12 18:49 | External Medical Summary | Summary of Care ---
Author Name Unknown Organization [facility] Address [address] [place] [address] Phone [phone] Care Team Providers Care Acupressurist Name Role Phone Johnnie Newby MD Primary Care Provider [phone] Encounter Details Date Type Department Care Team (Late st Contact Info) Description 04/26/2023 Telephone Family Practice [facility] [place] [address] Johnnie Newby MD 132 [facility] [place] [address] Allergies Active Allergy Reactions Criticality Noted Date Comments Acetaminophen 05/06/2005 headaches documented as of this encounter (statuses as of 04/26/2023) Medications Medication Sig Dispensed Refills Start Date [...] 24 Hour (Imdur)Indications:C oronary artery disease involving diomede coronary artery without angina pectoris TAKE ONE TABLET BY MOUTH EVERY MORNING 90 Tablet 3 09/18/2022 4 Active Tiotropium [employer] Monohydrate 18 MCG Inhalation Capsule (Spiriva) INHALE [...] as of this encounter (statuses as of 04/26/2023) Active Problems Problem Noted Date Diagnosed Date [...] tis 01/05/2014 Coronary artery disease invo lving diomede coronary artery of diomede heart without angina pectoris 11/27/2013 Tobacco abuse 11/27/2013 HTN, goal below 130/80 03/06/2009 Overview: Modified per HTN protocol #16. documented as of this encounter (statuses as of 04/26/2023) Resolved Problems Problem Noted Date Diagnosed Date [...] as of this encounter (statuses as of 04/26/2023) Immunizations Name Administration Dates Next Due COVID-19 mRNA, LNP-s, No Pre serve, 2-Dose Series ([employer]) 02/25/2023,02/10/2022,07/13/2020,06/17 Pneumococcal Conjugate Vacc, 13 Valent (Prevnar) [...] encounter Miscellaneous Notes * Telephone Encounter - Bianca Tao RN - 04/26/2023 9:37 AM EST DME order faxed documented in this encounter Plan of Treatment Upcoming Encounters Date Type Department Care Team (Late st Contact Info) Description 04/30/2023 10:30 AM EST Office Visit Cardiology, [facility] 132 [facility] [place] [address] Warren Montoya, DO [address] [place] [address] 05/18/2023 1:00 PM EST Office Visit Gastroenterology, [facility] 132 [facility] [place] [address] Agnes Bowers CRNP [address] [place] [address] 05/31/2023 11:40 AM EST Office Visit Podiatry [facility] 132 [facility] [place] [address] Bettye Herrmann, DPLiat [address] [place] [address] [place] [address] 06/28/2023 10:30 AM EDT Office Visit Orthopaedics [facility] 132 [facility] [place] [address] Zander Wilkins, DO [address] [place] [address] 06/29/2023 2:00 PM EDT Office Visit Otolaryngology [facility] 132 [facility] [place] [address] [place], DO [address] [place] [address] 07/08/2023 10:00 AM EDT Imaging Radiology [address] [place] [address] 07/13/2023 11:00 AM EDT Office Visit Radiation Oncology, [address] [place] [address] Shawna Johnson MD [address] [place] [address] [place] [address] 07/19/2023 11:40 AM EDT Office Visit Family Practice [facility] [address] [place] [address] Johnnie Newby MD [address] [place] [address] 09/16/2023 9:00 AM EDT Office Visit Cardiology, [facility] [address] [place] [address] Deisy Aguirre CRNP [address] [place] [address] Scheduled Procedures Name Priority Associated Diagnoses Date/Ti [...] Additional history exists CKD PHOS USE SMARTSET 83532 04/15/202403/20, 06/05/2022, 06/03/2021, Additional history exists CKD HGB USE SMARTSET 85910 04/18/202404/18, 04/17/2023, 04/16/2023, Additional history exists Depression [...] encounter Medical Devices Implanted Type Area Business Broker Device Identifier Shelf Expiration Date Model / Serial / Lot Lens Intraoc 24.0 - [id number] - [id number] Implanted:Qty: 1 on 06/01/2017 by Nikhil Bolton MD at OR [facility] Left: Eye [employer] 07/17/2021 [id number] / [id number] / [id number] Lens Intraoc 24.0 - [id number] - [id number] Implanted:Qty: 1 on 06/08/2017 by Nikhil Bolton MD at OR [facility] Right: Eye [employer]OM[employer] 07/17/2021 [id number] / [id number] / [id number] documented as of this encounter Advance Directives Documents on File Type Date Recorded Patient Medical Intern Expl 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 Care Teams Acupressurist Relationship Specialty Start Date End Date Johnnie Newby MD [address] [address] PCP - General Family Medicine 09/13/20 documented as of this encounter
--- OUTSIDE RECORDS SUMMARY | 2023-07-12 18:49 | External Medical Summary | Summary of Care ---
Author Name Unknown Organization [facility] Address [address] [facility] [place] [address] Phone [phone] Care Team Providers Care Care Nurse Rn Name Role Phone Johnnie Newby MD Primary Care Provider [phone] Reason for Visit * Reason Onset Date Comments Hospital Follow-Up Pt here for h ospital follow up with Hospital Follow-Up 04/23/2023 Hospital Follow-Up 04/24/2023 Encounter Details Date Type Department Care Team (Latest Contact Info) Description 04/23/2023 3:20 PM EST Office Visit [facility] [address] [facility] [place] [address] Johnnie Newby MD [address] [facility] [place] [address] Hospital discharge follow-up*; Type 2 diabetes mellitus with hemoglobin A1c goal of less than 8.0% (HCC); Dyslipidemia; Diabetic peripheral neuropathy (HCC); YISSEL treated with BiPAP; Malignant neoplasm of right upper lobe of lung (HCC); COPD, group D, by GOLD 2017 classification (HCC); Peripheral arterial disease (HCC); HTN, goal below 130/80; Coronary artery disease involving [place] coronary artery of [place] heart without angina pectoris; NSVT (nonsustained ventricular tachycardia) ([facility]); Nonrheumatic aortic valve stenosis; Gastroesophageal reflux disease without esophagitis; Chronic kidney disease, stage 3a ([facility]); Gouty arthropathy; Tobacco abuse; PTSD (post-traumatic stress disorder); Overweight (BMI 25.0-29.9); History of cardioembolic cerebrovascular accident (CVA); Depression with anxiety Allergies Active Allergy Reactions Criticality Noted Date Comments Acetaminophen 05/06/2005 headaches documented as of this encounter (statuses as of 04/24/2023) Medications Medication Sig Dispensed Refills Start Date [...] Base) MCG/ACT Inhalation Aerosol SolutionIndication s:COPD, moderate ([facility]) Take 2 Puffs by mouth 4 times a day as needed for Shortness of Breath or Wheezing. 54 g 1 1 Active Gabapentin 300 MG Oral Capsule (Neurontin) Take by mouth 1 Capsule before bedtime. 90 Capsule 3 2 Active BiPAP every night at bedtime. 0 Active Vitamin B-12 1000 MCG Oral Tablet (Cyanocobalamin) Take 1 Tablet by mouth in the morning. 0 Active Isosorbide Mononitrate ER 60 MG Oral Tablet Extended Release 24 Hour (Imdur)Indications :Coronary artery disease involving [place] coronary artery without angina pectoris TAKE ONE TABLET BY MOUTH EVERY MORNING 90 Tablet 3 3 09/18/19 24 Active Tiotropium [place] Monohydrate 18 MCG Inhalation Capsule (Spiriva) INHALE ONE CAPSULE VIA HANDIHALER EVERY MORNING. DO NOT SWALLOW CAPSULE. 90 Capsule 3 3 06/26/19 24 Active Fluticasone-Salmet gume 230-21 MCG/ACT Inhalation Aerosol (Advair)Indication s:COPD, group B, by GOLD 2017 classification ([facility]) INHALE TWO PUFFS BY MOUTH EVERY MORNING AND INHALE TWO PUFFS BY MOUTH AT BEDTIME, RINSE MOUTH AFTER USE 36 g 3 2 05/18/19 24 Active Roflumilast 500 MCG Oral Tablet (Daliresp)Indicati ons:COPD, group D, by GOLD 2017 classification ([facility] [...] for anxiety 180 Tablet 0 3 Active Mirtazapine 15 MG Oral Tablet (Remeron) 1/2 tab (7.5mg) by mouth every night 45 Tablet 0 3 Active risperiDONE 0.5 MG Oral Tablet (RisperDAL) 1 tab by mouth every night at bedtime 90 Tablet 0 3 Active Omeprazole 20 MG Oral Capsule Delayed Release (PriLOSEC)Indicati ons:Gastroesophage al reflux disease without esophagitis TAKE ONE CAPSULE BY MOUTH EVERY MORNING *NEED UPDATED LABS* 90 Capsule 1 3 03/20/20 24 Active Clopidogrel Bisulfate 75 MG Oral Tablet (pLAVix) Take 1 Tablet by mouth in the morning. 30 Tablet 11 4 Active Nitroglycerin 0.4 MG Sublingual Tablet Sublingual (Nitrostat) Place 1 Tablet under the tongue every 5 minutes as needed for Pain, Chest. up to 3 doses in 15 minutes 75 Tablet 3 3 Active metFORMIN HCl 1000 MG Oral Tablet (Glucophage) TAKE ONE TABLET BY MOUTH EVERY MORNING 100 Tablet 1 4 04/20/19 25 Active Colchicine 0.3 MG OR TABS 1 Tablet. 0 3 Active FLUoxetine HCl 20 MG Oral Capsule (PROzac) Take 3 Capsules by mouth in the morning. 270 Capsule 3 4 Active Mirtazapine 15 MG Oral Tablet (Remeron) Take one and half tablets by mouth daily at bedtime 0 1 04/23/19 24 Discontinued Lisinopril 20 MG Oral Tablet (Prinivil)Indicati ons:HTN, goal below 140/90 TAKE ONE TABLET BY MOUTH EVERY MORNING 90 Tablet 2 3 04/23/19 24 Discontinued FLUoxetine HCl 20 MG Oral Capsule (PROzac) TAKE THREE CAPSULES BY MOUTH EVERY MORNING 270 Capsule 0 3 04/23/19 24 Discontinued(Re fill) Aspirin 81 MG Oral Tablet Chewable Take 1 Tablet by mouth in the morning. Stop taking after 04/22/23. 4 Tablet 0 3 04/23/19 24 Discontinued Hospital, Clinic, or Other Facility Administered Medication Ordered Dose Route Frequency Start Date End Date Status albuterol sulfate (PROVENTIL) (2.5 MG/3ML) 0.083% inhalation solution 2.5 mgIndications:COPD, severe (HCC) 2.5 mg NEBULIZER Q4H PRN 07/08/2018 Active documented as of this encounter (statuses as of 04/24/2023) Active Problems Problem Noted Date Diagnosed Date [...] tis 01/05/2014 Coronary artery disease invo lving [place] coronary artery of [place] heart without angina pectoris 11/27/2013 Tobacco abuse 11/27/2013 HTN, goal below 130/80 03/06/2009 Overview: Modified per HTN protocol #16. documented as of this encounter (statuses as of 04/24/2023) Resolved Problems Problem Noted Date Diagnosed Date [...] as of this encounter (statuses as of 04/24/2023) Immunizations Name Administration Dates Next Due COVID-19 [...] Sign Reading Time Taken Comments Blood Pressure 112/48 04/23/2023 3:22 PM EST Pulse 64 04/23/2023 3:22 PM EST Temperature 36.6 C (97.9 F) 04/23/2023 3:22 PM ES T Respiratory Rate 18 04/23/2023 3:22 PM EST Oxygen Saturation - - Inhaled Oxygen Concentration - - Weight 89.8 kg (198 lb) 04/23/2023 3:22 PM EST Height 172.7 cm (5' 8") 04/23/2023 3:22 PM EST Body Mass Index 30.11 04/23/2023 3:22 PM EST documented in this encounter Functional [...] as of this encounter Progress Notes * Johnnie Newby MD - 04/24/2023 12:52 PM EST SUBJECTIVE: Walter Don is a 77 year old male. Chief Complaint Patient presents with Hospital Follow-Up Pt here for hospital follow up with Hospital Follow-Up Hospital Follow-Up Recent Admission: Patient was recently admitted to [facility]. . Discharge report received and reviewed. HPI: Walter is a very unhealthy 77 year old dedicated smoker with vasculopathy as well as lung cancer. He has complex cardiac disease. During his recent admission the risks vs benefits of CABG were discussed with he and his and they opted for continued medical management. In spite of his chronic issues, he has no intention of quitting smoking or changing his lifestyle to better his health. Unfortunately, this makes his overall prognosis guarded at best. He tells me today in the exam room he "feels great." His extensive medication list was reviewed as always. Case management present during exam. Patient Active Problem List Diagnosis Code HTN, goal below 130/80 I10 Coronary artery disease involving [place] coronary artery of [place] heart without angina pectoris I25.10 Tobacco abuse Z72.0 PTSD (post-traumatic stress disorder) F43.10 Gastroesophageal reflux disease without esophagitis K21.9 Type 2 diabetes mellitus with hemoglobin A1c goal of less than 8.0% ([facility]) E11.9 YISSEL treated with BiPAP G47.33 Peripheral arterial disease ([facility]) I73.9 Dyslipidemia E78.5 COPD, group D, by GOLD 2017 classification ([facility]) J44.9 Carotid stenosis, non-symptomatic I65.29 NSVT (nonsustained ventricular tachycardia) ([facility]) I47.29 Aortic valve stenosis I35.0 AAA (abdominal aortic aneurysm) ([facility]) I71.40 Chronic kidney disease, stage 3a ([facility]) N18.31 Malignant neoplasm of right upper lobe of lung ([facility]) C34.11 Depression with anxiety F41.8 History of cardioembolic cerebrovascular accident (CVA) Z86.73 Overweight (BMI 25.0-29.9) E66.3 Gouty arthropathy M10.9 Diabetic peripheral neuropathy (HCC) E11.42 Diverticulosis of large intestine without hemorrhage K57.30 Anemia of chronic disease D63.8 Closed nondisplaced fracture of fifth metatarsal bone of right foot with routine healing S92.479D Current Outpatient Medications Medication Sig Dispense Refill [...] BY MOUTH EVERY MORNING 90 Tablet 3 Tiotropium [place] Monohydrate 18 MCG Inhalation Capsule (Spiriva) INHALE [...] mouth in the morning. 270 Capsule 3 BUSPAR 15 MG PO TABS Take by mouth. Uses as needed ONETOUCH ULTRA BLUE STRP TEST ONCE DAILY 100 Strip 5 Current Facility-Administered Medications Medication Dose Route Frequency Provider Last Rate Last Admin albuterol sulfate (PROVENTIL) (2.5 MG/3ML) 0.083% inhalation solution 2.5 mg 2.5 mg Nebulizer Q4H PRN Junaid Pyle MD 2.5 mg at 07/26/18 1521 Current and discharge medications have been reconciled. Review of patient's allergies indicates: Allergen Reactions Tylenol [Acetaminophen] headaches OBJECTIVE: BP 112/48 | Pulse 64 | Temp 36.6 C (97.9 F) (Tympanic) | Resp 18 | Ht 1.727 m (5' 8") | Wt 89.8kg (198 lb) | BMI 30.11 kg/m | BSA 2.08 m PHYSICAL EXAM: General: alert, no distress, and obese Neck: supple, no adenopathy, no bruits, thyroid normal size, non-tender, without nodularity Heart: premature beats and 2/6 systolic ejection medium pitched blowing murmur aortic area Lungs: chest symmetric with normal AP diameter, coarse sounds heard, decreased breath sounds Abdomen: abdomen soft, non-tender, normal bowel sounds, and no masses or organomegaly Extremities: less than 2 second capillary refill, no joint deformities, effusion, or inflammation Neuro Exam: alert & oriented x 3 with fluent speech, no focal motor/sensory deficits, gait normal, reflexes normal and symmetric Skin: skin color, texture, turgor are normal, no rashes or significant lesions ASSESSMENT: Hospital discharge follow-up (Primary) - DISCH MED RECON CUR MED LIS - patient with complicated heart and lung disease affecting his overall mobility. He cannot ambulate appropriately without the use of an assistive device. Using a wheeled walker would improve functionality and decrease risk of mortality and morbidity due to potential falls Type 2 diabetes mellitus with hemoglobin A1c goal of less than 8.0% ([facility]) Dyslipidemia Diabetic peripheral neuropathy (HCC) YISSEL treated with BiPAP Malignant neoplasm of right upper lobe of lung (HCC) COPD, group D, by GOLD 2017 classification ([facility]) Peripheral arterial disease ([facility]) HTN, goal below 130/80 Coronary artery disease involving [place] coronary artery of [place] heart without angina pectoris NSVT (nonsustained ventricular tachycardia) ([facility]) Nonrheumatic aortic valve stenosis Gastroesophageal reflux disease without esophagitis Chronic kidney disease, stage 3a ([facility]) Gouty arthropathy Tobacco abuse PTSD (post-traumatic stress disorder) Overweight (BMI 25.0-29.9) History of cardioembolic cerebrovascular accident (CVA) Depression with anxiety Other orders - FLUoxetine HCl 20 MG Oral Capsule (PROzac); Take 3 Capsules by mouth in the morning. PLAN: Continue present medication(s): Follow up as needed. I spent a total of Greater than 55 mins (exact time 56 mins) minutes on the date of service in preparation, delivery, and documentation of the care provided to Walter Don excluding any time spent in performance of separately billed services. Johnnie Newby MD documented in this encounter Nursing Notes * Smitha Newton LPN - 04/23/2023 3:22 PM EST The patient has been properly identified by confirmation of name and date of . Chief Complaint Patient presents with Hospital Follow-Up Pt here for hospital follow up with documented in this encounter Plan of Treatment Upcoming Encounters Date Type Department Care Team (Late st Contact Info) Description 04/26/2023 11:30 AM EST Office Visit Orthopaedics [facility] [address] [place] [address] Zander Wilkins, DO [address] [place] [address] 04/30/2023 10:30 AM EST Office Visit Cardiology, [facility] [address] [facility] [place] [address] Warren Montoya, DO [address] [place] [address] 05/18/2023 1:00 PM EST Office Visit Gastroenterology, [facility] [address] [place] [address] Agnes Bowers CRNP [address] [place] [address] 05/31/2023 11:40 AM EST Office Visit Podiatry [facility] [address] [facility] [place] [address] Bettye Herrmann, DPM [address] [place] [address] [place] [address] 06/29/2023 2:00 PM EDT Office Visit Otolaryngology [facility] [address] [facility] [place] [address] Du Mota, DO [address] [place] [address] 07/08/2023 10:00 AM EDT Imaging Radiology [facility] 1st Floor, [place] [address] [place] [address] 07/13/2023 11:00 AM EDT Office Visit Radiation Oncology, [place] [address] [facility] [place] [address] Shawna Johnson MD [facility] [place] [address] 07/19/2023 11:40 AM EDT Office Visit Family Practice [facility] [address] [place] [address] Johnnie Newby MD [address] [place] [address] 09/16/2023 9:00 AM EDT Office Visit Cardiology, [facility] [address] [place] [address] Deisy Aguirre CRNP [address] [place] [address] Scheduled Procedures Name Priority Associated Diagnoses Date/Ti [...] Additional history exists CKD PHOS USE SMARTSET 01588 04/15/202403/20, 06/05/2022, 06/03/2021, Additional history exists CKD HGB USE SMARTSET 32698 04/18/202404/18, 04/17/2023, 04/16/2023, Additional history exists Depression [...] this encounter Medical Devices Implanted Type Area Editorial Cartoonist Device Identifier Shelf Expiration Date Model / Serial / Lot Lens Intraoc 24.0 - [id number] - [id number] Implanted:Qty: 1 on 06/01/2017 by Nikhil Bolton MD at [facility] Left: Eye [employer] 07/17/2021 [id number] / [id number] / [id number] Lens Intraoc 24.0 - [id number] - [id number] Implanted:Qty: 1 on 06/08/2017 by Nikhil Bolton MD at [facility] Right: Eye [employer] 07/17/2021 [id number] / [id number] / [id number] documented as of this encounter Visit Diagnoses Diagnosis Hospital discharge follow-up- Primary Other follow-up examination Type 2 diabetes mellitus with hemoglobin A1c goal of less than 8.0% (HCC) Dyslipidemia Other and unspecified hyperlipidemia Diabetic peripheral neuropathy (HCC) Type II or unspecified type diabetes mellitus with neurological manifestations, not stated as uncontrolled YISSEL treated with BiPAP Malignant neoplasm of right upper lobe of lung (HCC) Malignant neoplasm of upper lobe, bronchus or lung COPD, group D, by GOLD 2017 classification (HCC) Peripheral arterial disease (HCC) Peripheral vascular disease, unspecified HTN, goal below 130/80 Unspecified essential hypertension Coronary artery disease involving [place] coronary artery of [place] heart without angina pectoris NSVT (nonsustained ventricular tachycardia) (HCC) Paroxysmal ventricular tachycardia Nonrheumatic aortic valve stenosis Aortic valve disorders Gastroesophageal reflux disease without esophagitis Esophageal reflux Chronic kidney disease, stage 3a (HCC) Gouty arthropathy Gouty arthropathy, unspecified Tobacco abuse Tobacco use disorder PTSD (post-traumatic stress disorder) Posttraumatic stress disorder Overweight (BMI 25.0-29.9) Overweight History of cardioembolic cerebrovascular accident (CVA) Depression with anxiety Dysthymic disorder documented in this encounter Advance Directives Documents on File Type Date Recorded Patient Adult Nurse Practitioner Expl anation Advance Directives and Livin babatunde [...] and were consensually agreed upon. Care Teams Care Nurse Rn Relationship Specialty Start Date End Date Johnnie Newby MD [address] [place] [address] PCP - General Family Medicine 09/13/20 documented as of this encounter
--- OUTSIDE RECORDS SUMMARY | 2023-07-12 18:49 | External Medical Summary | Summary of Care ---
Author Name Unknown Organization [facility] Address [address] [place] [address] Phone [phone] Care Team Providers Care Field Checker Name Role Phone Johnnie Newby MD Primary Care Provider [phone] Reason for Visit * Reason Comments Hospital Follow-Up Encounter Details Date Type Department Care Team (Late st Contact Info) Description 04/30/2023 10:30 AM EST Office Visit Cardiology, [facility] [address] [facility] [place] [address] Warren Montoya DO [address] [facility] [place] [address] Coronary artery disease involving [place] coronary artery of [place] heart without angina pectoris* Allergies Active Allergy Reactions Criticality Noted Date Comments Acetaminophen 05/06/2005 headaches documented as of this encounter (statuses as of 04/30/2023) Medications Medication Sig Dispensed Refills Start Date [...] Hour (Imdur)Indications:C oronary artery disease involving [place] coronary artery without angina pectoris TAKE ONE TABLET BY MOUTH EVERY MORNING 90 Tablet 3 09/18/2022 4 Active Tiotropium Ambridge Monohydrate 18 MCG Inhalation Capsule (Spiriva) INHALE [...] D, by GOLD 2017 classification ([facility]) TAKE ONE TABLET BY MOUTH EVERY MORNING 90 Tablet 1 11/26/2022 4 Active Apixaban 5 MG Oral Tablet (Eliquis) Take 1 Tablet by mouth in the morning and 1 Tablet before bedtime. 180 Tablet 3 12/08/2022 Active Metoprolol Succinate ER 25 MG Oral Tablet Extended Release 24 Hour (toPROL XL)Indications:SVT (supraventricular tachycardia),NSVT (nonsustained ventricular tachycardia) ([facility]) TAKE ONE TABLET BY MOUTH EVERY [...] as of this encounter (statuses as of 04/30/2023) Active Problems Problem Noted Date Diagnosed Date [...] tis 01/05/2014 Coronary artery disease invo lving [place] coronary artery of [place] heart without angina pectoris 11/27/2013 Tobacco abuse 11/27/2013 HTN, goal below 130/80 03/06/2009 Overview: Modified per HTN protocol #16. documented as of this encounter (statuses as of 04/30/2023) Resolved Problems Problem Noted Date Diagnosed Date [...] as of this encounter (statuses as of 04/30/2023) Immunizations Name Administration Dates Next Due COVID-19 mRNA, LNP-s, No Pre serve, 2-Dose Series (Desigual) 02/25/2023,02/10/2022,07/13/2020,06/17 Pneumococcal Conjugate Vacc, 13 Valent (Prevnar) [...] Sign Reading Time Taken Comments Blood Pressure 106/54 04/30/2023 10:26 AM EST Pulse 66 04/30/2023 10:26 AM EST Temperature - - Respiratory Rate - - Oxygen Saturation - - Inhaled Oxygen Concentration - - Weight 90.7 kg (200 lb) 04/30/2023 10:26 AM EST Height - - Body Mass Index 30.41 04/23/2023 3:22 PM EST documented in this [...] as of this encounter Progress Notes * Warren Montoya, DO - 04/30/2023 10:45 AM EST Cardiology Outpatient Follow-up Walter Don is a 77 year old male who is seen for follow-up of ischemic heart disease. HPI: This is a 77-year-old male patient who is medically complex and has severe diffuse arterioscleroticvascular disease, a dedicated smoker with a history of COPD and lung cancer whom I last saw in March. I refer you to that previous note for medical history details. He was here in regard to preoperative clearance for hip surgery. At that time he was high-risk for any surgical procedures and remains so today. Of note, he also has a history of chronic anemia which has not been fully worked up and consideration was given to having the patient see Hematology. Soon after I saw him in March however, the patient presented with chest pain to [place] and was eventually transferred to [facility] in [place] with a non STEMI. The patient underwent cardiac catheterization there that revealed previously occluded right coronary and left circumflex arteries. He was also noted to have significant left main trunk disease and the left main trunk was aneurysmal and not amendable to intervention. The patient was seen by Cardiothoracic surgery who felt he was high-risk for any surgeries butwas willing to proceed to coronary artery bypass on a compassionate level. The patient refused and he was subsequently discharged on medical therapy. I saw him in follow-up today. He is here with hiswife. He has not had a recurrence of chest pain. Overall he has been doing well considering the above. Unfortunately he continues to smoke. Past Medical History: Diagnosis Date Anemia of [...] goal of less than 8.0% ([facility]) 10/23/2014 ICD-10 update of inactive term Patient Active Problem List Diagnosis Code HTN, goal below 130/80 I10 Coronary artery disease involving [place] coronary artery of [place] heart without angina pectoris I25.10 Tobacco abuse Z72.0 PTSD (post-traumatic stress disorder) F43.10 Gastroesophageal reflux disease without esophagitis K21.9 Type 2 diabetes mellitus with hemoglobin A1c goal of less than 8.0% ([facility]) E11.9 YISSEL treated with BiPAP G47.33 Peripheral arterial disease ([facility]) I73.9 Dyslipidemia E78.5 COPD, group D, by GOLD 2017 classification ([facility]) J44.9 Carotid stenosis, non-symptomatic I65.29 NSVT (nonsustained ventricular tachycardia) ([facility]) I47.29 Aortic valve stenosis I35.0 AAA (abdominal aortic aneurysm) ([facility]) I71.40 Chronic kidney disease, stage 3a ([facility]) N18.31 Malignant neoplasm of right upper lobe of lung ([facility]) C34.11 Depression with anxiety F41.8 History [...] performed by Warren Patel MD at [facility]OSCOPY [facility] COLONOSCOPY THRU STOMA, W/BIOPSY 05/28/2010 andenomatous tissue--repeat in 3 months COLONOSCOPY THRU STOMA, W/BIOPSY 09/18/2010 adenomatous-repeat colonoscopy in 3-6 months COLONOSCOPY THRU STOMA, W/BIOPSY 04/09/2011 polyps x3 , path shows adenomatous tissue repeat in 1 years COLONOSCOPY, DIAGNOSTIC (RECTUM) 05/20/2016 adenomatous polyps, poor prep, diverticulosis, repeat 3 yrs/[facility] COLONOSCOPY, DIAGNOSTIC (RECTUM) 06/06/2019 hemorrhoids/diverticulosis sigmoid and descending colon/small AVM/biopsies show adenomatous polyps/recall 6-9 months/COLONOSCOPY FLEXIBLE PROXIMAL DIAGNOSTIC performed by Clemencia Marinelli MD atENDOSCOPY [facility] COLONOSCOPY, DIAGNOSTIC (RECTUM) 03/05/2022 benign adenomatous polyp, repeat 1 yr / COLONOSCOPY FLEXIBLE PROXIMAL DIAGNOSTIC performed by Clemencia Marinelli MD at ENDOSCOPY [facility] COLONOSCOPY, DIAGNOSTIC (RECTUM) 01/14/2023 hemorrhoids/diverticulosis/biopsies show hyperplastic polyps/recall 2 years/COLONOSCOPY FLEXIBLE PROXIMAL DIAGNOSTIC performed by Destiny Mojica DO at ENDOSCOPY [facility] CORONARY ANGIOGRAPHY W/LEFT HEART CATH Right 04/16/2023 CORONARY ANGIOGRAPHY W/LEFT HEART CATH performed by Maria G Lance MD at CARDIAC LABS [facility] DESTROY LUMBAR SACRAL NERVE IMAGING ADD'L 01/27/2023 DESTROY LUMBAR SACRAL NERVE IMAGING ADD'L performed by Pb Alexander DO at OR [facility] DESTROY LUMBAR SACRAL NERVE IMAGING SINGLE 01/27/2023 DESTROY LUMBAR SACRAL NERVE IMAGING SINGLE performed by Pb Alexander DO at [facility] EGD, FLEXIBLE, DIAGNOSTIC 01/14/2023 gsatric polyp/ESOPHAGOGASTRODUODENOSCOPY (EGD), FLEXIBLE, TRANSORAL, DIAGNOSTIC performed by Phong Mojica DO at ENDOSCOPY [facility] L-/S-SPINE PARAVERTEBRAL FACET INJ,1 LEVEL 11/25/2022 L-/S-SPINE PARAVERTEBRAL FACET INJ, 1 LEVEL performed by Pb Alexander DO at [facility] L-/S-SPINE PARAVERTEBRAL FACET INJ,1 LEVEL 01/06/2023 L-/S-SPINE PARAVERTEBRAL FACET INJ, 1 LEVEL performed by Pb Alexander DO at OR [facility] L-/S-SPINE PARAVERTEBRL FACET INJ,2 LEVELS 11/25/2022 L-/S-SPINE PARAVERTEBRAL FACET INJ, 2 LEVELS performed by Pb Alexander, DO at OR [facility] L-/S-SPINE PARAVERTEBRL FACET INJ,2 LEVELS 01/06/2023 L-/S-SPINE PARAVERTEBRAL FACET INJ, 2 LEVELS performed by Pb Alexander, DO at OR [facility] MISCELLANEOUS ORDER ([facility] ONLY) 1998 henria repair OTHER (INFORMATION) pilonidal cyst removal OTHER (INFORMATION) repair of bilateral shoulder for bone spur and repair of torn muscles right shoulder REMOVE CATARACT, INSERT LENS PROSTH Left 06/01/2017 left EXTRACAPSULAR CATARACT REMOVAL WITH INTRAOCULAR LENS performed by Nikhil Bolton MD at OR [facility] REMOVE CATARACT, INSERT LENS PROSTH Right 06/08/2017 right EXTRACAPSULAR CATARACT REMOVAL WITH INTRAOCULAR LENS performed by Nikhil Bolton MD at OR [facility] Family History Problem Relation Age of Onset [...] 0.5 MG Tablet Uses as needed 0 Gabapentin 300 MG Oral Capsule (Neurontin) Take by mouth 1 Capsule before bedtime. 90 Capsule 3 BiPAP every night at bedtime. Vitamin B-12 1000 MCG Oral Tablet (Cyanocobalamin) Take 1 Tablet by mouth in the morning. Isosorbide Mononitrate ER 60 MG Oral Tablet Extended Release 24 Hour (Imdur) TAKE ONE TABLET BY MOUTH EVERY MORNING 90 Tablet 3 Tiotropium Ambridge Monohydrate 18 MCG Inhalation Capsule (Spiriva) INHALE [...] by mouth every night 45 Tablet 0 Omeprazole 20 MG Oral Capsule Delayed Release (PriLOSEC) TAKE ONE CAPSULE BY MOUTH EVERY MORNING *NEED UPDATED LABS* 90 Capsule 1 Clopidogrel Bisulfate 75 MG Oral Tablet (pLAVix) Take 1 Tablet by mouth in the morning. 30 Tablet 11 metFORMIN HCl 1000 MG Oral Tablet (Glucophage) TAKE ONE TABLET BY MOUTH EVERY MORNING 100 Tablet 1 Colchicine 0.3 MG OR TABS 1 Tablet. FLUoxetine HCl 20 MG Oral Capsule (PROzac) Take 3 Capsules by mouth in the morning. 270 Capsule 3 ONETOUCH ULTRA BLUE STRP TEST ONCE DAILY 100 Strip 5 Ventolin HFA 108 (90 Base) MCG/ACT Inhalation Aerosol Solution Take 2 Puffs by mouth 4 times a day as needed for Shortness of Breath or Wheezing. 54 g 1 risperiDONE 0.5 MG Oral Tablet (RisperDAL) 1 tab by mouth every night at bedtime 90 Tablet 0 Nitroglycerin 0.4 MG Sublingual Tablet Sublingual (Nitrostat) Place 1 Tablet under the tongue every5 minutes as needed for Pain, Chest. up to 3 doses in 15 minutes 75 Tablet 3 Current Facility-Administered Medications Medication Dose Route Frequency Provider Last Rate Last Admin albuterol sulfate (PROVENTIL) (2.5 MG/3ML) 0.083% inhalation solution 2.5 mg 2.5 mg Nebulizer Q4H PRN Junaid Pyle MD 2.5 mg at 07/26/18 1521 ROS: Review of Systems: See HPI for pertinent positives. All other review of systems is negative. PHYSICAL EXAMINATION BP 106/54 | Pulse 66 | Wt 90.7 kg (200 lb) | BMI 30.41 kg/m | BSA 2.09 m Body mass index is 30.41 kg/m. General: no acute distress and stated age Head: normocephalic, no masses, lesions, tenderness or abnormalities Eyes: conjunctiva are pink and non-injected, sclera clear Neck: supple, no adenopathy, no bruits, normal jugular venous pulse, no hepatojugular reflux Chest: normal shape and normal respiratory effort Lungs: clear to auscultation and percussion Cardiac Exam: - regular rate & rhythm, no murmurs gallops or rubs - normal S1, normal S2 Pulses: 2(+) throughout Abdomen: abdomen soft, non-tender, no abnormal masses and no hepatosplenomegaly Musculoskeletal: no gait disturbance, no joint inflammation, no deforming arthritis Extremities: no edema and no cyanosis Neuro: grossly normal exam Laboratory Data Review: EKG today reveals a sinus rhythm with a first-degree AV block and nonspecific ST and T-wave changes Impression: Coronary artery disease with significant two-vessel coronary artery disease and an occluded right coronary and left circumflex arteries with the only remaining artery being the LAD providing collaterals by cardiac catheterization 2005. Recent, March 2023, non STEMI with cardiac catheterization performed at [facility] revealed severe left main trunk disease not amendable to coronary intervention. The patient was offered coronary artery bypass surgery but refused and elected to continue medical therapy. Peripheral arterial disease History CVA Moderate aortic stenosis Posttraumatic stress disorder secondary medical procedures Adenocarcinoma of the lung treated with radiation. 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 He also has multiple other medical problems. He is not a candidate for any surgical procedures. His coronary artery disease will be treated medically. It would not be unreasonable in the future if the patient would see palliative Medicine. I plan follow-up in 3 months or earlier if needed. This chart was completed in part utilizing [employer] Speech Voice Recognition Software. Grammatical errors, random [...] a total of 40-54 minutes (exact time 48 mins) on the date of service in preparation, delivery, and documentation of the care provided to Walter Don excluding any time spent in the performance of separately billed services. Warren Montoya DO [address]iology[address] [address] 04/30/2023 documented in this encounter Nursing Notes * Earle Mireles, RN - 04/30/2023 10:23 AM EST Examination Room: room 16 Name: Walter Don Date of : (1945). Reason for Visit: for hospital discharge follow up Interim Hospitalization(s): admitted to [facility] on 04/14/2023 for NSTEMI Problems/Concerns: denies Chest Pain/SOB: denies [facility] Mail [...] 05/18/2023 1:00 PM EST Office Visit Gastroenterology, [facility] [address] [place] [address] Agnes Bowers CRNP [address] [place] [address] 05/31/2023 11:40 AM EST Office Visit Podiatry [facility] [address] [place] [address] Bettye Herrmann, DPM [address] [facility] [place] [address] 06/28/2023 10:30 AM EDT Office Visit Orthopaedics [facility] [address] [place] [address] Zander Wilkins DO [address] [place] [address] 06/29/2023 2:00 PM EDT Office Visit Otolaryngology [facility] [address] [place] [address] [place], [address] [place] [address] 07/08/2023 10:00 AM EDT Imaging Radiology [facility] 1st Floor, [place] [address] [place] [address] 07/13/2023 11:00 AM EDT Office Visit Radiation Oncology, [address] [place] [address] Shawna Johnson MD Medical [place] [address] 07/19/2023 11:40 AM EDT Office Visit Family Practice [facility] [address] [place] [address] Johnnie Newby MD [address] [place] [address] 09/16/2023 9:00 AM EDT Office Visit Cardiology, [facility] [address] [place] [address] Deisy Aguirre CRNP [address] [place] [address] Scheduled Orders Name Type Priority Associated Diagnoses Orde r Schedule EKG COMPLETE (TRACING AND INTERP) EKG Routine Coronary artery disease involving [place] coronary artery of [place] heart without angina pectoris Ordered: 04/30/2023 Scheduled Procedures Name Priority Associated Diagnoses Date/Ti me COLONOSCOPY FLEXIBLE PROXIMA L DIAGNOSTIC Recall History of colonic polyps Health Maintenance Due Date Last Done Comments Hepatitis B (1 of 3 - Risk 3-dose series) 2003 Diabetic Eye Exam 04/09/2023 04/09/2022, , 03/30/2020, Additional history exists COVID-19 Vaccine ( season) 2023 02/25/2023, 02/10/2022, 07/13/2020, Additional history exists DISCUSS TOBACCO CESSATION (REFER TO SMARTSET #2174) 05/01/2023 05/01/2022, 02/13/2022 Diabetic Foot Exam 09/10/2023 09/09/2022, 1 , 11/12/2017, Additional history exists HbA1c 10/16/2023 04/16/2023, 12/19, 06/05/2022, Additional history exists GFR 10/17/2023 04/18/2023, 03/21, 04/16/2023, Additional history exists DTaP,Tdap,and Td Vaccines (2 - Td or Tdap) 01/06/2024 01/05/2014 O2 ASSESSMENT COMPLETED IN PAST YEAR FOR COPD 01/15/2024 01/14/2023 Albumin/Creatinine Ratio 02/05/2024 023, 01/15/2023, 06/04/2021, Additional history exists CKD PHOS USE SMARTSET 83615 04/15/202403/20, 06/05/2022, 06/03/2021, Additional history exists CKD HGB USE SMARTSET 37238 04/18/202404/18, 04/17/2023, 04/16/2023, Additional history exists Depression [...] this encounter Medical Devices Implanted Type Area Valving Machine Operator Device Identifier Shelf Expiration Date Model / Serial / Lot Lens Intraoc 24.0 - [id number] - [id number] Implanted:Qty: 1 on 06/01/2017 by Nikhil Bolton MD at OR [facility] Left: Eye [employer] 07/17/2021 [id number] / [id number] / [id number] Lens Intraoc 24.0 - [id number] - [id number] Implanted:Qty: 1 on 06/08/2017 by Nikhil Bolton MD at OR [facility] Right: Eye [employer] 07/17/2021 [id number] / [id number] / [id number] documented as of this encounter Visit Diagnoses Diagnosis Coronary artery disease involving [place] coronary artery of [place] heart without angina pectoris- Primary documented in this encounter Advance Directives Documents on File Type Date Recorded Patient Surveying Crew Rodman Expl 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 Care Teams Field Checker Relationship Specialty Start Date End Date Johnnie Newby MD [address] [address] PCP - General Family Medicine 09/13/20 documented as of this encounter"
--- OUTSIDE RECORDS SUMMARY | 2023-07-12 18:49 | External Medical Summary | Summary of Care ---
Author Name Unknown Organization [facility] Address [address] [place] [address] Phone [phone] Care Team Providers Care Remote Mortgage Underwriter Name Role Phone Johnnie Newby MD Primary Care Provider [phone] Reason for Visit * Reason Comments Follow Up Right foot fx Encounter Details Date Type Department Care Team (Late st Contact Info) Description 04/23/2023 11:00 AM EST Office Visit Podiatry [facility] [address] [facility] [place] [address] Bettye Herrmann, DPM [address] [place] [address] Closed nondisplaced fracture of fifth metatarsal bone of right foot with routine healing, subsequent encounter* Allergies Active Allergy Reactions Criticality Noted Date Comments Acetaminophen 05/06/2005 headaches documented as of this encounter (statuses as of 04/23/2023) Medications Medication Sig Dispensed Refills Start Date [...] MORNING 90 Tablet 2 09/18/2022 4 Active FLUoxetine HCl 20 MG Oral Capsule (PROzac) TAKE THREE CAPSULES BY MOUTH EVERY MORNING 270 Capsule 0 07/08/2022 4 Active Tiotropium [place] Monohydrate 18 MCG Inhalation Capsule (Spiriva) INHALE ONE CAPSULE VIA HANDIHALER EVERY MORNING. DO NOT SWALLOW CAPSULE. 90 Capsule 3 06/26/2022 4 Active Fluticasone-Salmeter ol 230-21 MCG/ACT Inhalation Aerosol (Advair)Indications: COPD, group B, by GOLD 2017 classification ([facility]) INHALE TWO PUFFS BY MOUTH EVERY MORNING AND INHALE TWO PUFFS BY MOUTH AT BEDTIME, RINSE MOUTH AFTER USE 36 g 3 04/17/2022 4 Active Roflumilast 500 MCG Oral Tablet (Daliresp)Indication s:COPD, group D, by GOLD 2017 classification ([facility]) TAKE ONE TABLET BY [...] UPDATED LABS* 90 Capsule 1 03/21/2023 Active Aspirin 81 MG Oral Tablet Chewable Take 1 Tablet by mouth in the morning. Stop taking after 04/22/23. 4 Tablet 0 04/18/2023 Active Clopidogrel Bisulfate 75 MG Oral Tablet [...] MOUTH EVERY MORNING 100 Tablet 1 04/21/2023 Active Hospital, Clinic, or Other Facility Administered Medication Ordered Dose Route Frequency Start Date End Date Status albuterol sulfate (PROVENTIL) (2.5 MG/3ML) 0.083% inhalation solution 2.5 mgIndications:COPD, severe (HCC) 2.5 mg NEBULIZER Q4H PRN 07/08/2018 Active documented as of this encounter (statuses as of 04/23/2023) Active Problems Problem Noted Date Diagnosed Date [...] as of this encounter (statuses as of 04/23/2023) Resolved Problems Problem Noted Date Diagnosed Date [...] as of this encounter (statuses as of 04/23/2023) Immunizations Name Administration Dates Next Due COVID-19 [...] Progress Notes * Bettye Herrmann, DPM - 04/23/2023 10:44 AM EST Podiatry Established [facility] Name: Walter Don : 1945 Date: 04/23/2023 REASON FOR VISIT: right foot fracture follow up, DOI: 03/07/2023 SUBJECTIVE: This patient is a 77 year old male who presents today for follow up of a right foot fracture. Today, he presents without the camwalker. He reports being transferred to [facility] for an OR. He did not have his boot and then he chose to discontinue use of this device when he returned home as hehad no foot pain or swelling. He offers no other concerns today. Past Medical History: Diagnosis Date Anemia of [...] hemoglobin A1c goal of less than 8.0% ([facility]) 10/23/2014 ICD-10 update of inactive term ALLERGIES: [...] touch) intact to the right foot. Musculoskeletal: No pain is reported with palpation of the right foot. Dermatological: Skin temperature, texture, and turgor are within normal limits. No open lesions. There is no erythema or ecchymosis noted. DIAGNOSTIC STUDIES: X-ray, right foot, 04/23/2023 This includes three weight bearing x-rays AP MO and Lateral. No significant soft tissue findings. There is a minimally displaced fracture of the right fifth metatarsal bone seen on all three views. There is increased osseous consolidation suggestive of healing. ASSESSMENT: ICD-10-CM 1. Closed nondisplaced fracture of fifth metatarsal bone of right foot with routine healing, subsequent encounter S92.354D PLAN: New right foot x-rays were obtained. I reviewed these as above. He has stopped using the boot and declines to wear this. He is to contact me with any questions/concerns prior to his next routine appointment. Follow up: as needed for right foot injury Bettye Herrmann DPM documented in this encounter Nursing Notes * Kirstie Dobbs MED ASSIST - 04/23/2023 10:36 AM EST Pt presents today for follow up on right foot fx, DOI 03/07/23. Pt is not wearing his boot, states when he had his heart attack they took him to the hospital without a boot and was there for a few days without the boot. Says he is feeling fine and decided to not put the boot on when he came home. documented in this encounter Plan of Treatment Upcoming Encounters Date Type Department Care Team (Late st Contact Info) Description 04/23/2023 3:20 PM EST Office Visit Family Practice [facility] [address] [place] [address] Johnnie Newby MD [address] [place] [address] 04/26/2023 11:30 AM EST Office Visit [facility]edics [facility] [place] [address] Zander Wilkins, DO [address] [place] [address] 04/30/2023 10:30 AM EST Office Visit Cardiology, [facility] [address] [facility] [place] [address] Warren Montoya, DO [address] [place] [address] 05/18/2023 1:00 PM EST Office Visit Gastroenterology, [facility] [address] [facility] [place] [address] Agnes Bowers CRNP [address] [place] [address] 05/31/2023 11:40 AM EST Office Visit Podiatry [facility] [address] [facility] [place] [address] Bettye Herrmann DPM [address] [place] [address] 06/29/2023 2:00 PM EDT Office Visit Otolaryngology [facility] [place] [address] Du Mota DO [address] [place] [address] 07/08/2023 10:00 AM EDT Imaging Radiology [facility] [place] [address] 07/13/2023 11:00 AM EDT Office Visit Radiation Oncology, [place] [address] [address] [place] [address] Shawna Johnson MD [facility] [place] [address] 07/19/2023 11:40 AM EDT Office Visit Family Practice [facility] [place] [address] Johnnie Newby MD [address] [place] [address] 09/16/2023 9:00 AM EDT Office Visit Cardiology, [facility] [address] [facility] [place] [address] Deisy Aguirre CRNP [address] [facility] [place] [address] Pending Results Name Type Priority Associated Diagnoses Date /Time XR FOOT 3 OR MORE VIEWS Medical Imaging Routine Closed nondisplaced fracture of fifth metatarsal bone of right foot with routine healing, subsequent encounter 04/23/2023 10:48 AM EST Scheduled Procedures Name Priority Associated [...] Additional history exists CKD PHOS USE SMARTSET 42530 04/15/202403/20, 06/05/2022, 06/03/2021, Additional history exists CKD HGB USE SMARTSET 39406 04/18/202404/18, 04/17/2023, 04/16/2023, Additional history exists Depression [...] this encounter Medical Devices Implanted Type Area Curator [employer] Device Identifier Shelf Expiration Date Model / Serial / Lot Lens Intraoc 24.0 - [id number] - [id number] Implanted:Qty: 1 on 06/01/2017 by Nikhil Bolton MD at OR [facility] Left: Eye [employer]OMB 07/17/2021 [id number] / [id number] / [id number] Lens Intraoc 24.0 - [id number] - [id number] Implanted:Qty: 1 on 06/08/2017 by Nikhil Bolton MD at OR [facility] Right: Eye BAUSCH [employer] LOMB 07/17/2021 [id number] / [id number] / [id number] documented as of this encounter Visit Diagnoses Diagnosis Closed nondisplaced fracture of fifth metatarsal bone of right foot with routine healing, subsequent encounter- Primary documented in this encounter Advance Directives Documents on File Type Date Recorded Patient Pattern Repair Person Expl 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 Care Teams Remote Mortgage Underwriter Relationship Specialty Start Date End Date Johnnie Newby MD [address] [place] [address] PCP - General Family Medicine 09/13/20 documented as of this encounter
--- OUTSIDE RECORDS SUMMARY | 2023-07-12 18:49 | External Medical Summary | Summary of Care ---
Author Name Unknown Organization [facility] Address [address] [place] [place] [address] Phone [phone] Care Team Providers Care Grizzlyman Name Role Phone Johnnie Newby MD Primary Care Provider [phone] Reason for Visit * Reason Comments Follow Up left Encounter Details Date Type Department Care Team (Latest Contact Info) Description 04/26/2023 11:30 AM EST Office Visit Orthopaedics [facility] [address] [facility] [place] [address] Zander Wilkins, [address] [facility] [place] [address] Primary osteoarthritis of left knee*; Primary osteoarthritis of right knee Allergies Active Allergy Reactions Criticality Noted Date [...] Base) MCG/ACT Inhalation Aerosol SolutionIndications: COPD, moderate ([facility]) Take 2 Puffs by mouth [...] 24 Hour (Imdur)Indications: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 TAKE ONE TABLET BY MOUTH EVERY MORNING 90 Tablet 3 09/18/2022 4 Active Tiotropium [place] Monohydrate 18 MCG Inhalation Capsule (Spiriva) INHALE [...] tis 01/05/2014 Coronary artery disease invo lving absentee-shawnee coronary artery of absentee-shawnee heart without angina pectoris 11/27/2013 Tobacco abuse [...] mRNA, LNP-s, No Pre serve, 2-Dose Series ([email or web address]) 02/25/2023,02/10/2022,07/13/2020,06/17 Pneumococcal Conjugate Vacc, 13 Valent (Prevnar) [...] Progress Notes * Zander Wilkins, DO - 04/26/2023 11:30 AM EST Walter Don [id number] Walter Don is a 77 year old male who presents for follow up of bilateral knee injury to [facility] Sports Medicine. Walter Don is here with his/her Last had Durolane injection 07/27/22, last IA steroid 01/18/23 TODAY: feels both knees continued to be about 90% better. Here to discuss when to follow up for procedure. Past Medical History: Diagnosis Date Anemia of [...] MOUTH EVERY MORNING 270 Capsule 0 Tiotropium [place] Monohydrate 18 MCG Inhalation Capsule (Spiriva) INHALE [...] MORNING *NEED UPDATED LABS* 90 Capsule 1 Aspirin 81 MG Oral Tablet Chewable Take 1 Tablet by mouth in the morning. Stop taking after 04/22/23.4 Tablet 0 Clopidogrel Bisulfate 75 MG Oral Tablet (pLAVix) [...] BY MOUTH EVERY MORNING 100 Tablet 1 Current Facility-Administered Medications Medication Dose Route Frequency Provider Last Rate Last Admin albuterol sulfate (PROVENTIL) (2.5 MG/3ML) 0.083% inhalation solution 2.5 mg 2.5 mg Nebulizer Q4H PRN Junaid Pyle MD 2.5 mg at 07/26/18 1521 Hemoglobin [...] repeat not indicated Assessment and Plan: Patient does not need injection today all questions answered. We will see backin 2 months then determine if he wishes to try hyaluronic acid or intra-articular steroids. If he does not feel that he needs a procedure in 2 months I recommend he cancel the appointment and call p.r.n. Primary osteoarthritis of left knee (Primary) Primary osteoarthritis of right knee Zander Wilkins DO Primary Care Sports Medicine Orthopaedics [facility] [address] [place] [place] [address] documented in this encounter Nursing Notes * Pat Lyons MED ASSIST - 04/26/2023 11:03 AM EST Follow up Patient Follow up: Knee Side: Left Date of last visit: 01/18/23 Improvement since last office visit: 90 percent. Prior Treatment: Injection Here for Test Results: No Goals for this appointment: follow up. documented in this encounter Plan of Treatment Upcoming Encounters Date Type Department Care Team (Late st Contact Info) Description 04/30/2023 10:30 AM EST Office Visit Cardiology, [facility] [address] [place] [address] Warren Montoya DO [address] [place] [address] 05/18/2023 1:00 PM EST Office Visit Gastroenterology, [facility] [address] [place] [address] Agnes Bowers CRNP [address] [place] [address] 05/31/2023 11:40 AM EST Office Visit Podiatry [facility] [address] [place] [address] Bettye Herrmann, DPM [address] [facility] [place] [address] 06/28/2023 10:30 AM EDT Office Visit Orthopaedics [facility] [address] [place] [address] Zander Wilkins, DO [address] [place] [address] 06/29/2023 2:00 PM EDT Office Visit Otolaryngology [facility] [address] [place] [address] Du Mota, [address] [place] [address] 07/08/2023 10:00 AM EDT Imaging [facility] [address] [facility] [place] [address] 07/13/2023 11:00 AM EDT Office Visit Radiation Oncology, [address] [place] [address] Shawna Johnson MD [address] [place] [address] [place] [address] 07/19/2023 11:40 AM EDT Office Visit Family Practice [facility] [address] [facility] [place] [address] Johnnie Newby MD [address] [place] [address] 09/16/2023 9:00 AM EDT Office Visit Cardiology, [facility] [address] [place] [address] Deisy Aguirre CRNP [address] [place] [address] Scheduled Procedures Name Priority Associated Diagnoses Date/Ti me COLONOSCOPY FLEXIBLE PROXIMA L DIAGNOSTIC Recall History of colonic polyps Health Maintenance Due Date Last Done Comments Hepatitis B (1 of 3 - Risk 3-dose series) 2003 Diabetic Eye Exam 04/09/2023 04/09/2022, , 03/30/2020, Additional history exists COVID-19 Vaccine ( season) 2023 02/25/2023, 02/10/2022, 07/13/2020, Additional history exists DISCUSS TOBACCO CESSATION (REFER TO SMARTSET #5279) 05/01/2023 05/01/2022, 02/13/2022 Diabetic Foot Exam 09/10/2023 09/09/2022, 1 , 11/12/2017, Additional history exists HbA1c 10/16/2023 04/16/2023, 12/19, 06/05/2022, Additional history exists GFR 10/17/2023 04/18/2023, 03/21, 04/16/2023, Additional history exists DTaP,Tdap,and Td Vaccines (2 - Td or Tdap) 01/06/2024 01/05/2014 O2 ASSESSMENT COMPLETED IN PAST YEAR FOR COPD 01/15/2024 01/14/2023 Albumin/Creatinine Ratio 02/05/2024 023, 01/15/2023, 06/04/2021, Additional history exists CKD PHOS USE SMARTSET 65249 04/15/202403/20, 06/05/2022, 06/03/2021, Additional history exists CKD HGB USE SMARTSET 39287 04/18/202404/18, 04/17/2023, 04/16/2023, Additional history exists Depression [...] this encounter Medical Devices Implanted Type Area Wire Frame Lamp Shade Maker Device Identifier Shelf Expiration Date Model / Serial / Lot Lens Intraoc 24.0 - [id number] - [id number] Implanted:Qty: 1 on 06/01/2017 by Nikhil Bolton MD at OR [facility] Left: Eye [employer]CH [employer]OM[employer] 07/17/2021 [id number] / [id number] / [id number] Lens Intraoc 24.0 - [id number] - [id number] Implanted:Qty: 1 on 06/08/2017 by Nikhil Bolton MD at OR [facility] Right: Eye BAUSCH [employer] LOMB 07/17/2021 [id number] / [id number] / [id number] documented as of this encounter Visit Diagnoses Diagnosis Primary osteoarthritis of left knee- Primary Primary localized osteoarthrosis, lower leg Primary osteoarthritis of right knee Primary localized osteoarthrosis, lower leg documented in this encounter Advance Directives Documents on File Type Date Recorded Patient Tobacco Farmworker Expl anation Advance Directives and Yu fine [...] and were consensually agreed upon. Care Teams Grizzlyman Relationship Specialty Start Date End Date Johnnie Newby MD [address] [place] [address] PCP - General Family Medicine 09/13/20 documented as of this encounter
--- OUTSIDE RECORDS SUMMARY | 2023-07-12 18:50 | External Medical Summary | Summary of Care ---
Author Name Unknown Organization [facility] Address [address] [place] [address] Phone [phone] Care Team Providers Care Vice Chancellor Name Role Phone John Newby MD Primary Care Provider [phone] Reason for Visit * Reason Onset Date Comments Hospital Follow-Up 04/20/2023 [facility] 3 day pcp f/u needed. No appt avail. Please assist patient with scheduling. Thank you. Encounter Details Date Type Department Care Team (Late st Contact Info) Description 04/20/2023 Telephone Family Practice [facility] [address] [facility] [place] [address] John Newby MD 132 [facility] [place] [address] Hospital Follow-Up ([facility] 04/18/23 3 day ... Allergies Active Allergy Reactions Criticality Noted Date Comments Acetaminophen 05/06/2005 headaches documented as of this encounter (statuses as of 04/20/2023) Medications Medication Sig Dispensed Refills Start Date End Date Status DAILY MULTIVITAMIN PO TABS with lycopene 0 Active BUSPAR 15 MG PO TABS Take by mouth. Uses as needed 0 Active clonazePAM (KLONOPIN) 0.5 MG Tablet Uses as needed 0 06/17/2016 Active ONETOUCH ULTRA BLUE STRPIndications:Type 2 diabetes mellitus with hemoglobin A1c goal of less than 7.0% ([facility]) TEST ONCE DAILY 100 Strip 5 03/02/2018 Active Ventolin HFA 108 (90 Base) MCG/ACT Inhalation Aerosol SolutionIndications: COPD, moderate ([facility]) Take 2 Puffs by mouth [...] 24 Hour (Imdur)Indications:C oronary artery disease involving [place] coronary artery without angina pectoris TAKE [...] 270 Capsule 0 07/08/2022 4 Active Tiotropium Alpha Monohydrate 18 MCG Inhalation Capsule (Spiriva) INHALE ONE CAPSULE VIA HANDIHALER EVERY MORNING. DO NOT SWALLOW CAPSULE. 90 Capsule 3 06/26/2022 4 Active Fluticasone-Salmeter ol 230-21 MCG/ACT Inhalation Aerosol (Advair)Indications: COPD, group B, by GOLD 2017 classification ([facility]) INHALE TWO PUFFS BY MOUTH EVERY MORNING AND INHALE TWO PUFFS BY MOUTH AT BEDTIME, RINSE MOUTH AFTER USE 36 g 3 04/17/2022 4 Active Roflumilast 500 MCG Oral Tablet (Daliresp)Indication s:COPD, group D, by GOLD 2017 classification ([facility]) TAKE ONE TABLET BY MOUTH EVERY MORNING 90 Tablet 1 11/26/2022 4 Active Apixaban 5 MG Oral Tablet (Eliquis) Take 1 Tablet by mouth in the morning and 1 Tablet before bedtime. 180 Tablet 3 12/08/2022 Active Metoprolol Succinate ER 25 MG Oral Tablet Extended Release 24 Hour (toPROL XL)Indications:SVT (supraventricular tachycardia),NSVT (nonsustained ventricular tachycardia) ([facility]) TAKE ONE TABLET BY MOUTH [...] LABS* 90 Capsule 1 03/21/2023 4 Active Aspirin 81 MG Oral Tablet Chewable [...] 15 minutes 75 Tablet 3 04/18/2023 Active Hospital, Clinic, or Other Facility Administered Medication Ordered Dose Route Frequency Start Date End Date Status albuterol sulfate (PROVENTIL) (2.5 MG/3ML) 0.083% inhalation solution 2.5 mgIndications:COPD, severe (HCC) 2.5 mg NEBULIZER Q4H PRN 07/08/2018 Active documented as of this encounter (statuses as of 04/20/2023) Active Problems Problem Noted Date Diagnosed Date [...] tis 01/05/2014 Coronary artery disease invo lving [place] coronary artery of upper [place] heart without angina pectoris 11/27/2013 Tobacco abuse 11/27/2013 HTN, goal below 130/80 03/06/2009 Overview: Modified per HTN protocol #16. documented as of this encounter (statuses as of 04/20/2023) Resolved Problems Problem Noted Date Diagnosed Date [...] as of this encounter (statuses as of 04/20/2023) Immunizations Name Administration Dates Next Due COVID-19 mRNA, LNP-s, No Pre serve, 2-Dose Series ([employer]) 02/25/2023,02/10/2022,07/13/2020,06/17 Pneumococcal Conjugate Vacc, 13 Valent (Prevnar) [...] encounter Miscellaneous Notes * Telephone Encounter - Nat Burr OSA - 04/20/2023 5:31 AM EST [facility] 04/18/23 3 day pcp f/u needed. No appt avail. Please assist patient with scheduling. Thank you. Yuval Pickering 04/15/2023 9:13 PM Admission Description: 77 year old male Department: HFAM 8 IP [facility] Message Patient Name: YUVAL PICKERING([id number]) Sex: Male : 1945 PCP: JOHN NEWBY Center: [facility] [place] Types of orders made on 04/18/2023: IP Post Discharge , Lab, Medications, Point of Care Testing, Point of Care Testing - Unsolicited Results Order Date:04/18/2023 Ordering User:CONOR CUETO [[id number]] Attending Provider:Jose Nicholas MD [[id number]] Authorizing Provider: Conor Cueto DO [[id number]] Department:[facility] 8 [facility][[id number]] Order Specific Information Order: RETURN APPT [CUSTOM: [id number]] Order #: [id number]: [id number] Priority: Routine Class: Nursing Unit Department (Single Entry) -> Family Practice Appt Needed Within: (Specify # of Days, Weeks, Months) -> 3 Days Provider -> JOHN NEWBY Released on: 04/18/2023 2:31 PM Priority: Routine Class: Nursing Unit Department (Single Entry) -> Family Practice Appt Needed Within: (Specify # of Days, Weeks, Months) -> 3 Days Provider -> JOHN NEWBY Released on: 023 2:31 PM documented in this encounter Plan of Treatment Upcoming Encounters Date Type Department Care Team (Late st Contact Info) Description 04/23/2023 11:00 AM EST Office Visit Podiatry [facility] [address] [facility] [place] [address] Bettye Herrmann DPM [address] [place] [address] 04/26/2023 11:30 AM EST Office Visit Orthopaedics [facility] [address] [facility] [place] [address] Zander Wilkins DO [address] [place] [address] 05/18/2023 1:00 PM EST Office Visit Gastroenterology, [facility] [address] [facility] [place] [address] Agnes Bowers CRNP [address] [place] [address] 05/31/2023 11:40 AM EST Office Visit Podiatry [facility] [address] [facility] [place] [address] Bettye Herrmann DPM [address] [place] [address] 07/08/2023 10:00 AM EDT [facility] [address] [facility] [place] [address] 07/13/2023 11:00 AM EDT Office Visit Radiation Oncology, [address] [place] [address] Shawna Johnson MD [address] [place] [address] [place] [address] 07/19/2023 11:40 AM EDT Office Visit Family Practice [facility] [address] [place] [address] John Newby MD [address] [place] [address] 09/16/2023 9:00 AM EDT Office Visit Cardiology, [facility] [address] [place] [address] Deisy Aguirre CRNP [address] [place] [address] Scheduled Procedures Name Priority Associated Diagnoses Date/Ti [...] exists DISCUSS TOBACCO CESSATION (REFER TO SMARTSET #0635) 05/01/2023 05/01/2022, 02/13/2022 Diabetic Foot Exam 09/10/2023 09/09/2022, 1 , 11/12/2017, Additional history exists HbA1c 10/16/2023 04/16/2023, 12/19, 06/05/2022, Additional history exists GFR 10/17/2023 04/18/2023, 03/21, 04/16/2023, Additional history exists DTaP,Tdap,and Td Vaccines (2 - Td or Tdap) 01/06/2024 01/05/2014 O2 ASSESSMENT COMPLETED IN PAST YEAR FOR COPD 01/15/2024 01/14/2023 Albumin/Creatinine Ratio 02/05/2024 023, 01/15/2023, 06/04/2021, Additional history exists CKD PHOS USE SMARTSET 53937 04/15/202403/20, 06/05/2022, 06/03/2021, Additional history exists CKD HGB USE SMARTSET 97913 04/18/202404/18, 04/17/2023, 04/16/2023, Additional history exists COLONOSCOPY-EVERY 2 YRS AGES [...] this encounter Medical Devices Implanted Type Area Morning Show Producer Device Identifier Shelf Expiration Date Model / Serial / Lot Lens Intraoc 24.0 - [id number] - [id number] Implanted:Qty: 1 on 06/01/2017 by Nikhil Bolton MD at OR [facility] Left: Eye BAUSCH & LOMB 07/17/2021 [id number] / [id number] / [id number] Lens Intraoc 24.0 - [id number] - [id number] Implanted:Qty: 1 on 06/08/2017 by Nikhil Bolton MD at OR [facility] Right: Eye BAUSCH & LOMB 07/17/2021 [id number] / [id number] / [id number] documented as of this encounter Advance Directives Documents on File Type Date Recorded Patient Check Writer Expl anation Advance Directives and Yu Rose/4/2006 ADVANCE DIRECTIVE Latest Code Status on File [...] and were consensually agreed upon. Care Teams Vice Chancellor Relationship Specialty Start Date End Date John Newby MD [address] [place] [address] PCP - General Family Medicine 09/13/20 documented as of this encounter
--- OUTSIDE RECORDS SUMMARY | 2023-07-12 18:50 | External Medical Summary | Summary of Care ---
Author Name Unknown Organization [facility] Address [address] [place] [address] Phone [phone] Care Team Providers Care Greenhouse Technician Name Role Phone John Newby MD Primary Care Provider [phone] Reason for Visit * Reason Onset Date Comments Hospital Follow-Up 04/20/2023 [facility] 3 day pcp f/u needed. No appt avail. Please assist patient with scheduling. Thank you. Encounter Details Date Type Department Care Team (Late st Contact Info) Description 04/20/2023 Telephone Family Practice [facility] [address] [facility] [place] [address] John Newby MD 132 [facility] [place] [address] Hospital Follow-Up ([facility] 04/18/23 3 day ... Allergies Active [...] 24 Hour (Imdur)Indications:C oronary artery disease involving [place] coronary artery without angina pectoris TAKE ONE [...] 270 Capsule 0 07/08/2022 4 Active Tiotropium [place] Monohydrate 18 MCG Inhalation Capsule (Spiriva) INHALE [...] tis 01/05/2014 Coronary artery disease invo lving [place] coronary artery of [place] heart without angina pectoris 11/27/2013 Tobacco abuse [...] mRNA, LNP-s, No Pre serve, 2-Dose Series ([employer]) 02/25/2023,02/10/2022,07/13/2020,06/17 Pneumococcal Conjugate Vacc, 13 Valent (Prevnar) [...] Burr OSA - 04/20/2023 5:31 AM EST [facility] 04/18/23 3 day pcp f/u needed. No appt avail. Please assist patient with scheduling. Thank you. Yuval Pickering 04/15/2023 9:13 PM Admission Description: 77 year old male Department: HFAM 8 IP [facility] Message Patient Name: YUVAL PICKERING([id number]) Sex: Male : 1945 PCP: JOHN NEWBY Center: [facility] [place] Types of orders made on 04/18/2023: IP Post Discharge , Lab, Medications, Point of Care Testing, Point of Care Testing - Unsolicited Results Order Date:04/18/2023 Ordering User:CONOR CUETO [[id number]] Attending Provider:Jose Nicholas MD [[id number]] Authorizing Provider: Conor Cueto DO [[id number]] Department:[facility] 8 [facility][[id number]] Order Specific Information Order: RETURN APPT [CUSTOM: [id number]] Order #: [id number]: [id number] Priority: Routine Class: Nursing Unit Department [...] 04/23/2023 11:00 AM EST Office Visit Podiatry [facility] [address] [place] [address] Bettye Herrmann, DPM 400 [facility] [place] [address] 04/23/2023 3:20 PM EST Office Visit Family Practice [facility] [address] [place] [address] John Newby MD [address] [place] [address] 04/26/2023 11:30 AM EST Office Visit Orthopaedics [facility] [address] [place] [address] Zander Wilkins, DO [address] [place] [address] 04/30/2023 10:30 AM EST Office Visit Cardiology, [facility] [address] [facility] [place] [address] Warren Montoya, DO [address] [place] [address] 05/18/2023 1:00 PM EST Office Visit Gastroenterology, [facility] [address] [place] [address] Agnes Bowers CRNP [address] [place] [address] 05/31/2023 11:40 AM EST Office Visit Podiatry [facility] [address] [place] [address] Bettye Herrmann, DPM 400 [facility] [place] [address] 07/08/2023 10:00 AM EDT Imaging Radiology [address] [facility] [place] [address] 07/13/2023 11:00 AM EDT Office Visit Radiation Oncology, [place] [address] [address] [place] [address] Shawna Johnson MD [place] [address] 07/19/2023 11:40 AM EDT Office Visit Family Practice [facility] [address] [facility] [place] [address] John Newby MD 132 [facility] [place] [address] 09/16/2023 9:00 AM EDT Office Visit Cardiology, [facility] [address] [facility] [place] [address] Deisy Aguirre CRNP 132 [facility] [place] [address] Scheduled Procedures Name Priority Associated Diagnoses Date/Ti [...] exists DISCUSS TOBACCO CESSATION (REFER TO SMARTSET #6951) 05/01/2023 05/01/2022, 02/13/2022 Diabetic Foot Exam 09/10/2023 09/09/2022, 1 , 11/12/2017, Additional history exists HbA1c 10/16/2023 04/16/2023, 12/19, 06/05/2022, Additional history exists GFR 10/17/2023 04/18/2023, 03/21, 04/16/2023, Additional history exists DTaP,Tdap,and Td Vaccines (2 - Td or Tdap) 01/06/2024 01/05/2014 O2 ASSESSMENT COMPLETED IN PAST YEAR FOR COPD 01/15/2024 01/14/2023 Albumin/Creatinine Ratio 02/05/2024 023, 01/15/2023, 06/04/2021, Additional history exists CKD PHOS USE SMARTSET 30800 04/15/202403/20, 06/05/2022, 06/03/2021, Additional history exists CKD HGB USE SMARTSET 44618 04/18/202404/18, 04/17/2023, 04/16/2023, Additional history exists COLONOSCOPY-EVERY [...] this encounter Medical Devices Implanted Type Area Pewter Fabricator Device Identifier Shelf Expiration Date Model / Serial / Lot Lens Intraoc 24.0 - [id number] - [id number] Implanted:Qty: 1 on 06/01/2017 by Nikhil Bolton MD at OR [facility] Left: Eye BAUSCH & LOMB 07/17/2021 [id number] / [id number] / [id number] Lens Intraoc 24.0 - [id number] - [id number] Implanted:Qty: 1 on 06/08/2017 by Nikhil Bolton MD at OR [facility] Right: Eye BAUSCH & LOMB 07/17/2021 [id number] / [id number] / [id number] documented as of this encounter Advance Directives Documents on File Type Date Recorded Patient Oncology Admin Expl 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 Care Teams Greenhouse Technician Relationship Specialty Start Date End Date John Newby MD 132 [facility] [place] [address] PCP - General Family Medicine 09/13/20 documented as of this encounter
--- OUTSIDE RECORDS SUMMARY | 2023-07-12 18:50 | External Medical Summary | Summary of Care ---
Author Name Unknown Organization [facility] Address [address] [place] [address] Phone [phone] Care Team Providers Care Manager Strategic Alliances Name Role Phone Johnnie Nweby MD Primary Care Provider [phone] Encounter Details Date Type Department Care Team (Late st Contact Info) Description 04/20/2023 Patient Reported Data Patient Survey Ortho OBERD [...] 24 Hour (Imdur)Indications:C oronary artery disease involving [place] coronary artery without angina pectoris TAKE ONE [...] 270 Capsule 0 07/08/2022 4 Active Tiotropium [place] Monohydrate 18 MCG Inhalation Capsule (Spiriva) INHALE [...] tis 01/05/2014 Coronary artery disease invo lving [place] coronary artery of [place] heart without angina pectoris 11/27/2013 Tobacco abuse [...] mRNA, LNP-s, No Pre serve, 2-Dose Series ([employer]) 02/25/2023,02/10/2022,07/13/2020,06/17 Pneumococcal Conjugate Vacc, 13 Valent (Prevnar) [...] 04/23/2023 11:00 AM EST Office Visit Podiatry [facility] 132 [facility] [place], [place] [address] Bettye Herrmann DPM [facility] [place] [address] 04/26/2023 11:30 AM EST Office Visit Orthopaedics [facility] 132 [facility] [place] [address] Zander Wilkins, DO [address] [facility] [place] [address] 04/30/2023 10:30 AM EST Office Visit Cardiology, [facility] 132 [facility] [place], [place] [address] Warren Montoya, DO 132 [facility] [place] [address] 05/18/2023 1:00 PM EST Office Visit Gastroenterology, [address] [place] [address] Agnes Bowers CRNP [facility] [place] [address] 05/31/2023 11:40 AM EST Office Visit Podiatry [address] [place] [address] Bettye Herrmann DPM [facility] [place] [address] 07/08/2023 10:00 AM EDT Imaging Radiology [facility] 1st Floor, [place] 132 [facility] [place] [address] 07/13/2023 11:00 AM EDT Office Visit Radiation Oncology, [address] [place] [address] Shawna Johnson MD [address] [place] [address] [place] [address] 07/19/2023 11:40 AM EDT Office Visit Family Practice [facility] [address] [place] [address] Johnnie Newby MD [address] [place] [address] 09/16/2023 9:00 AM EDT Office Visit Cardiology, [facility] [address] [place] [address] Deisy Aguirre CRNP [address] [place] [address] Scheduled Procedures Name Priority Associated Diagnoses Date/Ti [...] exists DISCUSS TOBACCO CESSATION (REFER TO SMARTSET #8586) 05/01/2023 05/01/2022, 02/13/2022 Diabetic Foot Exam 09/10/2023 09/09/2022, 1 , 11/12/2017, Additional history exists HbA1c 10/16/2023 04/16/2023, 12/19, 06/05/2022, Additional history exists GFR 10/17/2023 04/18/2023, 03/21, 04/16/2023, Additional history exists DTaP,Tdap,and Td Vaccines (2 - Td or Tdap) 01/06/2024 01/05/2014 O2 ASSESSMENT COMPLETED IN PAST YEAR FOR COPD 01/15/2024 01/14/2023 Albumin/Creatinine Ratio 02/05/2024 023, 01/15/2023, 06/04/2021, Additional history exists CKD PHOS USE SMARTSET 07809 04/15/202403/20, 06/05/2022, 06/03/2021, Additional history exists CKD HGB USE SMARTSET 80840 04/18/202404/18, 04/17/2023, 04/16/2023, Additional history exists COLONOSCOPY-EVERY [...] this encounter Medical Devices Implanted Type Area Mop Worker Device Identifier Shelf Expiration Date Model / Serial / Lot Lens Intraoc 24.0 - [id number] - [id number] Implanted:Qty: 1 on 06/01/2017 by Nikhil Bolton MD at OR [facility] Left: Eye BAUSCH & LOMB 07/17/2021 [id number] / [id number] / [id number] Lens Intraoc 24.0 - [id number] - [id number] Implanted:Qty: 1 on 06/08/2017 by Nikhil Bolton MD at OR [facility] Right: Eye BAUSCH & LOMB 07/17/2021 [id number] / [id number] / [id number] documented as of this encounter Advance Directives Documents on File Type Date Recorded Patient Stationary Engineer Supervisor Expl jeanie Advance Directives and Yu fine [...] were consensually agreed upon. Care Teams Manager Strategic Alliances Relationship Specialty Start Date End Date Johnnie Newby MD 132 [facility] [place] [address] PCP - General Family Medicine 09/13/20 documented as of this encounter
--- OUTSIDE RECORDS SUMMARY | 2023-07-12 18:50 | External Medical Summary | Summary of Care ---
Author Name Unknown Organization [facility] Address [address] [place] [address] Phone [phone] Care Team Providers Care Heat Regulator Name Role Phone Johnnie Newby MD Primary Care Provider [phone] Encounter Details Date Type Department Care Team [...] 24 Hour (Imdur)Indications:C oronary artery disease involving [place] coronary artery without angina pectoris TAKE ONE [...] 270 Capsule 0 07/08/2022 4 Active Tiotropium [place] Monohydrate 18 MCG Inhalation Capsule (Spiriva) INHALE [...] group D, by GOLD 2017 classification ([facility]) TAKE ONE TABLET BY MOUTH EVERY MORNING 90 Tablet 1 11/26/2022 4 Active Apixaban 5 MG Oral Tablet (Eliquis) Take 1 Tablet by mouth in the morning and 1 Tablet before bedtime. 180 Tablet 3 12/08/2022 Active Metoprolol Succinate ER 25 MG Oral Tablet Extended Release 24 Hour (toPROL XL)Indications:SVT (supraventricular tachycardia),NSVT (nonsustained ventricular tachycardia) ([facility] [...] tis 01/05/2014 Coronary artery disease invo lving [place] coronary artery of [place] heart without angina pectoris 11/27/2013 Tobacco abuse [...] mRNA, LNP-s, No Pre serve, 2-Dose Series ([employer]) 02/25/2023,02/10/2022,07/13/2020,06/17 Pneumococcal Conjugate Vacc, 13 Valent (Prevnar) [...] 04/23/2023 11:00 AM EST Office Visit Podiatry [facility] 132 [facility] [place], [place] [address] Bettye Herrmann DPM [facility] [place] [address] 04/26/2023 11:30 AM EST Office Visit Orthopaedics [facility] 132 [facility] [place] [address] Zander Wilkins, DO [address] [facility] [place] [address] 04/30/2023 10:30 AM EST Office Visit Cardiology, [facility] 132 [facility] [place], [place] [address] Warren Montoya, DO 132 [facility] [place] [address] 05/18/2023 1:00 PM EST Office Visit Gastroenterology, [address] [place] [address] Agnes Bowers CRNP [facility] [address] 05/31/2023 11:40 AM EST Office Visit Podiatry [address] [place] [address] Bettye Herrmann DPM [facility] [place] [address] 07/08/2023 10:00 AM EDT Imaging Radiology [facility] 1st Floor, [place] 132 [facility] [place] [address] 07/13/2023 11:00 AM EDT Office Visit Radiation Oncology, [address] [place] [address] Shawna Johnson MD [address] [place] [address] [place] [address] 07/19/2023 11:40 AM EDT Office Visit Family Practice [facility] [address] [place] [address] Johnnie Newby MD [address] [place] [address] 09/16/2023 9:00 AM EDT Office Visit Cardiology, [facility] [address] [place] [address] Deisy Aguirre CRNP [address] [place] [address] Scheduled Procedures Name Priority Associated Diagnoses Date/Ti [...] exists DISCUSS TOBACCO CESSATION (REFER TO SMARTSET #5869) 05/01/2023 05/01/2022, 02/13/2022 Diabetic Foot Exam 09/10/2023 09/09/2022, 1 , 11/12/2017, Additional history exists HbA1c 10/16/2023 04/16/2023, 12/19, 06/05/2022, Additional history exists GFR 10/17/2023 04/18/2023, 03/21, 04/16/2023, Additional history exists DTaP,Tdap,and Td Vaccines (2 - Td or Tdap) 01/06/2024 01/05/2014 O2 ASSESSMENT COMPLETED IN PAST YEAR FOR COPD 01/15/2024 01/14/2023 Albumin/Creatinine Ratio 02/05/2024 023, 01/15/2023, 06/04/2021, Additional history exists CKD PHOS USE SMARTSET 28160 04/15/202403/20, 06/05/2022, 06/03/2021, Additional history exists CKD HGB USE SMARTSET 19989 04/18/202404/18, 04/17/2023, 04/16/2023, Additional history exists COLONOSCOPY-EVERY [...] this encounter Medical Devices Implanted Type Area Insurance Collector Device Identifier Shelf Expiration Date Model / Serial / Lot Lens Intraoc 24.0 - [id number] - [id number] Implanted:Qty: 1 on 06/01/2017 by Nikhil Bolton MD at OR [facility] Left: Eye BAUSCH & LOMB 07/17/2021 [id number] / [id number] / [id number] Lens Intraoc 24.0 - [id number] - [id number] Implanted:Qty: 1 on 06/08/2017 by Nikhil Bolton MD at OR [facility] Right: Eye BAUSCH & LOMB 07/17/2021 [id number] / [id number] / [id number] documented as of this encounter Advance Directives Documents on File Type Date Recorded Patient Grain Packer Expl jeanie Advance Directives and Yu fine [...] and were consensually agreed upon. Care Teams Heat Regulator Relationship Specialty Start Date End Date Johnnie Newby MD 132 [facility] [place] [address] PCP - General Family Medicine 09/13/20 documented as of this encounter
--- OUTSIDE RECORDS SUMMARY | 2023-07-12 18:50 | External Medical Summary | Summary of Care ---
Author Name Unknown Organization [facility] Address [address] [place] [address] Phone [phone] Care Team Providers Care Safety Sealer Name Role Phone Johnnie Newby MD Primary Care Provider [phone] Encounter Details Date Type Department Care Team [...] 24 Hour (Imdur)Indications:C oronary artery disease involving [place] coronary artery without angina pectoris TAKE ONE [...] 270 Capsule 0 07/08/2022 4 Active Tiotropium [place] Monohydrate 18 MCG Inhalation Capsule (Spiriva) INHALE [...] tis 01/05/2014 Coronary artery disease invo lving [place] coronary artery of [place] heart without angina pectoris 11/27/2013 Tobacco abuse [...] mRNA, LNP-s, No Pre serve, 2-Dose Series (Melon Power) 02/25/2023,02/10/2022,07/13/2020,06/17 Pneumococcal Conjugate Vacc, 13 Valent (Prevnar) [...] 04/23/2023 11:00 AM EST Office Visit Podiatry [facility] 132 [facility] [place], [place] [address] Bettye Herrmann DPM [facility] [place] [address] 04/26/2023 11:30 AM EST Office Visit Orthopaedics [facility] 132 [facility] [place] [address] Zander Wilkins, DO [address] [facility] [place] [address] 04/30/2023 10:30 AM EST Office Visit Cardiology, [facility] 132 [facility] [place], [place] [address] Warren Montoya, DO 132 [facility] [place] [address] 05/18/2023 1:00 PM EST Office Visit Gastroenterology, [address] [place] [address] Agnes Bowers CRNP 132 [facility] [place] [address] 05/31/2023 11:40 AM EST Office Visit Podiatry [address] [place] [address] Bettye Herrmann DPM [facility] [place] [address] 07/08/2023 10:00 AM EDT Imaging Radiology [facility] 1st Floor, [place] 132 [facility] [place] [address] 07/13/2023 11:00 AM EDT Office Visit Radiation Oncology, [address] [place] [address] Shawna Johnson MD [address] [place] [address] [place] [address] 07/19/2023 11:40 AM EDT Office Visit Family Practice [facility] [address] [place] [address] Johnnie Newby MD [address] [place] [address] 09/16/2023 9:00 AM EDT Office Visit Cardiology, [facility] [address] [place] [address] Deisy Aguirre CRNP [address] [place] [address] Scheduled Procedures Name Priority Associated Diagnoses Date/Ti [...] exists DISCUSS TOBACCO CESSATION (REFER TO SMARTSET #1502) 05/01/2023 05/01/2022, 02/13/2022 Diabetic Foot Exam 09/10/2023 09/09/2022, 1 , 11/12/2017, Additional history exists HbA1c 10/16/2023 04/16/2023, 12/19, 06/05/2022, Additional history exists GFR 10/17/2023 04/18/2023, 03/21, 04/16/2023, Additional history exists DTaP,Tdap,and Td Vaccines (2 - Td or Tdap) 01/06/2024 01/05/2014 O2 ASSESSMENT COMPLETED IN PAST YEAR FOR COPD 01/15/2024 01/14/2023 Albumin/Creatinine Ratio 02/05/2024 023, 01/15/2023, 06/04/2021, Additional history exists CKD PHOS USE SMARTSET 21479 04/15/202403/20, 06/05/2022, 06/03/2021, Additional history exists CKD HGB USE SMARTSET 03200 04/18/202404/18, 04/17/2023, 04/16/2023, Additional history exists COLONOSCOPY-EVERY [...] this encounter Medical Devices Implanted Type Area Inverter And Clipper Device Identifier Shelf Expiration Date Model / Serial / Lot Lens Intraoc 24.0 - [id number] - [id number] Implanted:Qty: 1 on 06/01/2017 by Nikhil Bolton MD at OR [facility] Left: Eye BAUSCH [employer] LOMB 07/17/2021 [id number] / [id number] / [id number] Lens Intraoc 24.0 - [id number] - [id number] Implanted:Qty: 1 on 06/08/2017 by Nikhil Bolton MD at OR [facility] Right: Eye BAUSCH & LOMB 07/17/2021 [id number] / [id number] / [id number] documented as of this encounter Advance Directives Documents on File Type Date Recorded Patient Line Up Examiner Expl jeanie Advance Directives and Yu fine [...] and were consensually agreed upon. Care Teams Safety Sealer Relationship Specialty Start Date End Date Johnnie Newby MD 132 [facility] [place] [address] PCP - General Family Medicine 09/13/20 documented as of this encounter
--- OUTSIDE RECORDS SUMMARY | 2023-07-12 18:50 | External Medical Summary | Summary of Care ---
Author Name Unknown Organization [facility] Address [address] [place] [address] Phone [phone] Care Team Providers Care Double Bottom Driver Name Role Phone Johnnie Newby MD Primary Care Provider [phone] Encounter Details Date Type Department Care Team (Latest Contact Info) Description 04/14/2023 11:10 PM EST - 04/14/2023 11:59 PM EST Hospital Encounter Radiology Film File [address] [place] [address] Discharge Disposition: Home - Self Care Allergies Active Allergy Reactions Criticality Noted Date Comments Acetaminophen 05/06/2005 headaches documented as of this encounter (statuses as of 04/22/2023) Medications Medication Sig Dispensed Refills Start Date [...] 24 Hour (Imdur)Indications:C oronary artery disease involving [place] coronary artery without angina pectoris TAKE ONE TABLET BY MOUTH EVERY MORNING 90 Tablet 3 09/18/2022 4 Active Lisinopril 20 MG Oral Tablet (Prinivil)Indication s:HTN, goal below 140/90 TAKE ONE TABLET BY MOUTH EVERY MORNING 90 Tablet 2 09/18/2022 4 Active FLUoxetine HCl 20 MG Oral Capsule (PROzac) TAKE THREE CAPSULES BY MOUTH EVERY MORNING 270 Capsule 0 07/08/2022 4 Active Tiotropium [place] Monohydrate 18 MCG Inhalation Capsule (Spiriva) INHALE [...] as of this encounter (statuses as of 04/22/2023) Active Problems Problem Noted Date Diagnosed Date [...] tis 01/05/2014 Coronary artery disease invo lving [place] coronary artery of [place] heart without angina pectoris 11/27/2013 Tobacco abuse 11/27/2013 HTN, goal below 130/80 03/06/2009 Overview: Modified per HTN protocol #16. documented as of this encounter (statuses as of 04/22/2023) Resolved Problems Problem Noted Date Diagnosed Date [...] as of this encounter (statuses as of 04/22/2023) Immunizations Name Administration Dates Next Due COVID-19 [...] 04/23/2023 11:00 AM EST Office Visit Podiatry [facility] 132 [facility] [place] [address] Bettye Herrmann, DPM 400 [facility] [place] [address] 04/23/2023 3:20 PM EST Office Visit Family Practice [facility] 132 [facility] [place] [address] Johnnie Newby MD 132 [facility] [place] [address] 04/26/2023 11:30 AM EST Office Visit [facility]opaedics [facility] [place] [address] Zander Wilkins DO 132 [place] [address] 04/30/2023 10:30 AM EST Office Visit Cardiology, [facility] 132 [facility] [place] [address] Warren Montoya, DO [address] [place] [address] 05/18/2023 1:00 PM EST Office Visit Gastroenterology, [facility] [place] [address] Agnes Bowers CRNP [address] [place] [address] 05/31/2023 11:40 AM EST Office Visit Podiatry [facility] 132 [facility] [place] [address] Bettye Herrmann, DPM [address] [place] [address] [place] [address] 06/29/2023 2:00 PM EDT Office Visit Otolaryngology [facility] 132 [facility] [place] [address] Du Mota, DO 132 [facility] [place] [address] 07/08/2023 10:00 AM EDT Imaging Radiology [facility] [address] [facility] 132 [facility] [place] [address] 07/13/2023 11:00 AM EDT Office Visit Radiation Oncology, [address] [place] [address] Shawna Johnson MD [address] [place] [address] [place] [address] 07/19/2023 11:40 AM EDT Office Visit Family Practice [facility] [place] [address] Johnnie Newby MD 132 [facility] [place] [address] 09/16/2023 9:00 AM EDT Office Visit Cardiology, [facility] [address] [place] [address] Deisy Aguirre CRNP [address] [place] [address] Scheduled Procedures Name Priority Associated Diagnoses Date/Ti me COLONOSCOPY FLEXIBLE PROXIMA L DIAGNOSTIC Recall History of colonic polyps Health Maintenance Due Date Last Done Comments Hepatitis B (1 of 3 - Risk 3-dose series) 2003 Depression Screening 05/31/2020 04/22/2023 Diabetic Eye Exam 04/09/2023 04/09/2022, , 03/30/2020, [...] Additional history exists CKD PHOS USE SMARTSET 42905 04/15/202403/20, 06/05/2022, 06/03/2021, Additional history exists CKD HGB USE SMARTSET 73924 04/18/202404/18, 04/17/2023, 04/16/2023, Additional history exists COLONOSCOPY-EVERY [...] this encounter Medical Devices Implanted Type Area Steam Fitter Helper Device Identifier Shelf Expiration Date Model / Serial / Lot Lens Intraoc 24.0 - [id number] - [id number] Implanted:Qty: 1 on 06/01/2017 by Nikhil Bolton MD at OR [facility] Left: Eye BAUSCH & LOMB 07/17/2021 [id number] / [id number] / [id number] Lens Intraoc 24.0 - [id number] - [id number] Implanted:Qty: 1 on 06/08/2017 by Nikhil Bolton MD at OR [facility] Right: Eye BAUSCH & LOMB 07/17/2021 [id number] / [id number] / [id number] documented as of this encounter Procedures Procedure Name Priority Date/Time Associated Diagnosis Comments RADIOLOGY EXAM - GENERAL RAD (IMAGES ONLY,NO REPORT) Routine 04/14/2023 11:10 PM EST documented in this encounter Results * RADIOLOGY EXAM - GENERAL RAD (IMAGES ONLY,NO REPORT) (04/14/2023 11:10 PM EST) 04/14/2023 11:1 0 PM EST Narrative Scheduling, Silent - 04/21/2023 12:35 PM EST This is an imaging study not interpreted or resulted by a [facility] or [facility] contracted radiologist. 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 Care Teams Double Bottom Driver Relationship Specialty Start Date End Date Johnnie Newby MD 132 [facility] [place] [address] PCP - General Family Medicine 09/13/20 documented as of this encounter
--- OUTSIDE RECORDS SUMMARY | 2023-07-12 18:50 | External Medical Summary | Summary of Care ---
Author Name Unknown Organization [facility] Address [address] [place] [address] Phone [phone] Care Team Providers Care Top Lift Cutter Name Role Phone John Newby MD Primary Care Provider [phone] Reason for Visit * Reason Onset Date Comments Hospital Follow-Up 04/20/2023 [facility] 3 day pcp f/u needed. No appt avail. Please assist patient with scheduling. Thank you. Encounter Details Date Type Department Care Team (Late st Contact Info) Description 04/20/2023 Telephone Family Practice [facility] [address] [facility] [place] [address] John Newby MD 132 [facility] [place] [address] [place] 04/18/23 3 day ... Allergies Active [...] than 7.0% ([facility]) TEST ONCE DAILY 100 Strip 5 03/02/2018 Active Ventolin HFA 108 (90 Base) MCG/ACT Inhalation Aerosol SolutionIndications: COPD, moderate ([facility]) Take 2 Puffs by mouth 4 [...] 24 Hour (Imdur)Indications:C oronary artery disease involving [place] coronary artery without angina pectoris TAKE ONE [...] 270 Capsule 0 07/08/2022 4 Active Tiotropium [place] Monohydrate 18 MCG Inhalation Capsule (Spiriva) INHALE [...] tis 01/05/2014 Coronary artery disease invo lving [place] coronary artery of [place] heart without angina pectoris 11/27/2013 Tobacco abuse [...] mRNA, LNP-s, No Pre serve, 2-Dose Series (Loftware) 02/25/2023,02/10/2022,07/13/2020,06/17 Pneumococcal Conjugate Vacc, 13 Valent (Prevnar) [...] encounter Miscellaneous Notes * Telephone Encounter - Hui Vasquez OSA - 04/20/2023 1:21 PM EST calling back, appt for 04/23 is good for them. * Telephone Encounter - Nat Burr OSA - 04/20/2023 5:31 AM EST [facility] 04/18/23 3 day pcp f/u needed. No appt avail. Please assist patient with scheduling. Thank you. Yuval Pickering 04/15/2023 9:13 PM Admission Description: 77 year old male Department: HFAM 8 IP [facility] Message Patient Name: YUVAL PICKERING([id number]) Sex: Male : 1945 PCP: JOHN NEWBY Center: [facility] [place] Types of orders made on 04/18/2023: IP Post Discharge , Lab, Medications, Point of Care Testing, Point of Care Testing - Unsolicited Results Order Date:04/18/2023 Ordering User:CONOR CUETO [[id number]] Attending Provider:Jose Nicholas MD [[id number]] Authorizing Provider: Conor Cueto DO [[id number]] Department:[facility] 8 [facility][[id number]] Order Specific Information Order: RETURN APPT [CUSTOM: [id number]] Order #: [id number]: 1 Priority: Routine Class: Nursing Unit Department [...] 04/23/2023 11:00 AM EST Office Visit Podiatry [facility] [address] [place] [address] Bettye Herrmann DPM [address] [place] [address] [place] [address] 04/23/2023 3:20 PM EST Office Visit Family Practice [facility] [address] [place] [address] John Newby MD [address] [place] [address] 04/26/2023 11:30 AM EST Office Visit Orthopaedics [facility] [address] [place] [address] Zander Wilkins, DO [address] [place] [address] 04/30/2023 10:30 AM EST Office Visit Cardiology, [facility] [address] [place] [address] Warren Montoya, DO [address] [place] [address] 05/18/2023 1:00 PM EST Office Visit Gastroenterology, [facility] [address] [place] [address] Agnes Bowers CRNP [address] [place] [address] 05/31/2023 11:40 AM EST Office Visit [facility]ry [facility] [place] [address] Bettye Herrmann, DPM 400 [facility] [place] [address] 06/29/2023 2:00 PM EDT Office Visit Otolaryngology [facility] [address] [facility] [place] [address] Du Mota DO [address] [place] [address] 07/08/2023 10:00 AM EDT Imaging Radiology [address] [facility] [place] [address] 07/13/2023 11:00 AM EDT Office Visit Radiation Oncology, [address] [place] [address] Shawna Johnson MD [address] [place] [address] [place] [address] 07/19/2023 11:40 AM EDT Office Visit Family Practice [facility] [address] [facility] [place] [address] John Newby MD [address] [place] [address] 09/16/2023 9:00 AM EDT Office Visit Cardiology, [facility] [address] [facility] [place] [address] Deisy Aguirre CRNP [address] [place] [address] Scheduled Procedures Name Priority Associated Diagnoses Date/Ti [...] Additional history exists CKD PHOS USE SMARTSET 04432 04/15/202403/20, 06/05/2022, 06/03/2021, Additional history exists CKD HGB USE SMARTSET 09062 04/18/202404/18, 04/17/2023, 04/16/2023, Additional history exists COLONOSCOPY-EVERY [...] this encounter Medical Devices Implanted Type Area Renewable Energy Trader Device Identifier Shelf Expiration Date Model / Serial / Lot Lens Intraoc 24.0 - [id number] - [id number] Implanted:Qty: 1 on 06/01/2017 by Nikhil Bolton MD at OR [facility] Left: Eye BAUSCH & LOMB 07/17/2021 [id number] / [id number] / [id number] Lens Intraoc 24.0 - [id number] - [id number] Implanted:Qty: 1 on 06/08/2017 by Nikhil Bolton MD at OR [facility] Right: Eye BAUSCH & LOMB 07/17/2021 [id number] / [id number] / [id number] documented as of this encounter Advance Directives Documents on File Type Date Recorded Patient Lan Administrator Expl 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 Care Teams Top Lift Cutter Relationship Specialty Start Date End Date John Newby MD 132 [place] [address] PCP - General Family Medicine 09/13/20 documented as of this encounter
--- OUTSIDE RECORDS SUMMARY | 2023-07-12 18:50 | External Medical Summary | Summary of Care ---
Author Name Unknown Organization [facility] Address [address] [place] [address] Phone [phone] Care Team Providers Care Director Of Social Media Marketing Name Role Phone Johnnie Newby MD Primary Care Provider [phone] Reason for Visit * Reason Onset Date Comments Advice 04/20/2023 Encounter Details Date Type Department Care Team (Late st Contact Info) Description 04/20/2023 Telephone Cardiology, [facility] [address] [facility] [address] Warren Montoya, [address] [facility] [place] [id number] Advice Allergies Active Allergy Reactions Criticality Noted Date [...] Base) MCG/ACT Inhalation Aerosol SolutionIndications: COPD, moderate ([facility]) Take 2 Puffs by mouth [...] 24 Hour (Imdur)Indications:C oronary artery disease involving [place] coronary artery without angina pectoris TAKE ONE TABLET BY MOUTH EVERY MORNING 90 Tablet 3 09/18/2022 4 Active Lisinopril 20 MG Oral Tablet (Prinivil)Indication s:HTN, goal below 140/90 TAKE ONE TABLET BY MOUTH EVERY MORNING 90 Tablet 2 09/18/2022 4 Active FLUoxetine HCl 20 MG Oral Capsule (PROzac) TAKE THREE CAPSULES BY MOUTH EVERY MORNING 270 Capsule 0 07/08/2022 4 Active Tiotropium [place] Monohydrate 18 MCG Inhalation Capsule (Spiriva) INHALE [...] tis 01/05/2014 Coronary artery disease invo lving [place] coronary artery of [place] heart without angina pectoris 11/27/2013 Tobacco abuse [...] Telephone Encounter - Bianca Tao RN - 04/22/2023 10:21 AM EST Spoke with patients . She reports he has not had any further nosebleeds. Had also been dealing with a runny nose. She started to run a humidifier in the home to help. She reports the last nosebleed "took all afternoon to stop". Instructed if this occurs again and cannot get this stopped would need to go to ER. She will reach out to report any further episodes if occurs. * Telephone Encounter - Deisy Aguirre CRNP - 04/20/2023 10:46 PM EST How frequent are the nose bleeds? Daily? And how long do they last? What is he doing to stop the nose bleed? Just applying pressure? Does he apply a ice pack to the bridge of the nose? Urgent care unfortunately will likely not be able to address a nose bleed and if significant enoughwill need to present to the ER. Depending on how bad the nose bleeds are will determine risk vs benefit of being on anticoagulationvs high risk for a Thromboembolic event. * Telephone Encounter - Toma Lovelace OSA - 04/20/2023 10:38 AM EST Person calling: Ina Relationship to patient: Number to return call: [phone] Reason for call: Patients called with concerns. She states that her had a heart attackand was discharged recently. Since being discharged he has nose bleeds that las for a while and arehard to control, she believes this is due to the Eliquis. Ina would like a call back as to if she needs to take him to the urgent care next time the patient has a nose bleed. Provider Name: Dr. Montoya documented in this encounter Plan of Treatment Upcoming Encounters Date Type Department Care Team (Late st Contact Info) Description 04/23/2023 11:00 AM EST Office Visit Podiatry [facility] [place] [address] Bettye Herrmann, DPLiat [address] [place] [address] [place] [address] 04/23/2023 3:20 PM EST Office Visit Family Practice [facility] [address] [place] [address] Johnnie Newby MD [address] [place] [address] 04/26/2023 11:30 AM EST Office Visit Orthopaedics [facility] [address] [place] [address] Zander Wilkins, DO [address] [place] [address] 04/30/2023 10:30 AM EST Office Visit Cardiology, [facility] 132 [facility] [place] [address] Warren Montoya, DO [address] [place] [address] 05/18/2023 1:00 PM EST Office Visit Gastroenterology, [facility] [address] [place] [address] Agnes Bowers CRNP [address] [place] [address] 05/31/2023 11:40 AM EST Office Visit Podiatry [facility] [address] [place] [address] Bettye Herrmann, SAMM 400 [facility] [place] [address] 06/29/2023 2:00 PM EDT Office Visit Otolaryngology [facility] [address] [place] [address] Du Mota DO [address] [place] [address] 07/08/2023 10:00 AM EDT Imaging Radiology [facility] 1st [facility] [address] [place] [address] 07/13/2023 11:00 AM EDT Office Visit Radiation Oncology, [address] [place] [address] Shawna Johnson MD [address] [place] [address] [place] [address] 07/19/2023 11:40 AM EDT Office Visit Family Practice [facility] 132 [facility] [place] [address] Johnnie Newby MD 132 [facility] [place] [address] 09/16/2023 9:00 AM EDT Office Visit Cardiology, [facility] 132 [facility] [place] [address] Deisy Aguirre CRNP 132 [facility] [place] [address] Scheduled Procedures Name Priority Associated Diagnoses Date/Ti [...] Additional history exists CKD PHOS USE SMARTSET 24320 04/15/202403/20, 06/05/2022, 06/03/2021, Additional history exists CKD HGB USE SMARTSET 54279 04/18/202404/18, 04/17/2023, 04/16/2023, Additional history exists COLONOSCOPY-EVERY [...] this encounter Medical Devices Implanted Type Area Vortex Operator Device Identifier Shelf Expiration Date Model / Serial / Lot Lens Intraoc 24.0 - [id number] - [id number] Implanted:Qty: 1 on 06/01/2017 by Nikhil Bolton MD at OR [facility] Left: Eye BAUSCH & LOMB 07/17/2021 [id number] / [id number] / [id number] Lens Intraoc 24.0 - [id number] - [id number] Implanted:Qty: 1 on 06/08/2017 by Nikhil Bolton MD at OR [facility] Right: Eye BAUSCH & LOMB 07/17/2021 [id number] / [id number] / [id number] documented as of this encounter Advance Directives Documents on File Type Date Recorded Patient Soils Engineer Expl 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 Care Teams Director Of Social Media Marketing Relationship Specialty Start Date End Date Johnnie Newby MD 132 [place] [address] PCP - General Family Medicine 09/13/20 documented as of this encounter
--- OUTSIDE RECORDS SUMMARY | 2023-07-12 18:50 | External Medical Summary | Summary of Care ---
Author Name Unknown Organization [facility] Address [address] [place] [address] Phone [phone] Care Team Providers Care Nurseryperson Name Role Phone Johnnie Newby MD Primary Care Provider [phone] Encounter Details Date Type Department Care Team (Late st Contact Info) Description 04/19/2023 Population Health External Data Unspecified Department Allergies Active Allergy Reactions Criticality Noted Date Comments Acetaminophen 05/06/2005 headaches documented as of this encounter (statuses as of 04/19/2023) Medications Medication Sig Dispensed Refills Start Date [...] 24 Hour (Imdur)Indications:C oronary artery disease involving lummi coronary artery without angina pectoris TAKE ONE [...] 270 Capsule 0 07/08/2022 4 Active Tiotropium [place] Monohydrate 18 MCG Inhalation Capsule (Spiriva) INHALE [...] as of this encounter (statuses as of 04/19/2023) Active Problems Problem Noted Date Diagnosed Date [...] tis 01/05/2014 Coronary artery disease invo lving lummi coronary artery of lummi heart without angina pectoris 11/27/2013 Tobacco abuse 11/27/2013 HTN, goal below 130/80 03/06/2009 Overview: Modified per HTN protocol #16. documented as of this encounter (statuses as of 04/19/2023) Resolved Problems Problem Noted Date Diagnosed Date [...] as of this encounter (statuses as of 04/19/2023) Immunizations Name Administration Dates Next Due COVID-19 mRNA, LNP-s, No Pre serve, 2-Dose Series (FunnelFire) 02/25/2023,02/10/2022,07/13/2020,06/17 Pneumococcal Conjugate Vacc, 13 Valent (Prevnar) [...] 04/23/2023 11:00 AM EST Office Visit Podiatry [facility] [address] [place] [address] Bettye Herrmann DPM [address] [place] [address] 04/26/2023 11:30 AM EST Office Visit Orthopaedics [facility] [address] [place] [address] Zander Wilkins, [address] [place] [address] 05/18/2023 1:00 PM EST Office Visit Gastroenterology, [facility] 132 [facility] [place] [address] Agnes Bowers CRNP [address] [place] [address] 05/31/2023 11:40 AM EST Office Visit Podiatry [facility] 132 [facility] [place] [address] Bettye Herrmann DPM 400 [facility] [place] [address] 07/08/2023 10:00 AM EDT Imaging Radiology [facility] 1st Floor, [place] 132 [facility] [place] [address] 07/13/2023 11:00 AM EDT Office Visit Radiation Oncology, [address] [place] [address] Shawna Johnson MD Medical [place] [address] 07/19/2023 11:40 AM EDT Office Visit Family Practice [facility] 132 [facility] [place] [address] Johnnie Newby MD [address] [place] [address] 09/16/2023 9:00 AM EDT Office Visit Cardiology, [facility] [address] [place] [address] Deisy Aguirre CRNP [address] [place] [address] Scheduled Procedures Name Priority Associated Diagnoses Date/Ti [...] Additional history exists CKD PHOS USE SMARTSET 47890 04/15/202403/20, 06/05/2022, 06/03/2021, Additional history exists CKD HGB USE SMARTSET 26567 04/18/202404/18, 04/17/2023, 04/16/2023, Additional history exists COLONOSCOPY-EVERY [...] this encounter Medical Devices Implanted Type Area Filling And Stapling Machine Operator Device Identifier Shelf Expiration Date Model / Serial / Lot Lens Intraoc 24.0 - [id number] - [id number] Implanted:Qty: 1 on 06/01/2017 by Nikhil Bolton MD at OR [facility] Left: Eye [employer] 07/17/2021 [id number] / [id number] / [id number] Lens Intraoc 24.0 - [id number] - [id number] Implanted:Qty: 1 on 06/08/2017 by Nikhil Bolton MD at OR [facility] Right: Eye [employer]OM[employer] 07/17/2021 [id number] / [id number] / [id number] documented as of this encounter Advance Directives Documents on File Type Date Recorded Patient Lei Maker Expl anation Advance Directives and Yu Watkins [...] and were consensually agreed upon. Care Teams Nurseryperson Relationship Specialty Start Date End Date Johnnie Newby MD [address] [place] [address] PCP - General Family Medicine 09/13/20 documented as of this encounter
--- OUTSIDE RECORDS SUMMARY | 2023-07-12 18:50 | External Medical Summary | Summary of Care ---
Author Name Unknown Organization [facility] Address [address] [place] [address] Phone [phone] Care Team Providers Care Wet Room Worker Name Role Phone John Newby MD Primary Care Provider [phone] Reason for Visit * Reason Comments Medication Refill Encounter Details Date Type Department Care Team (Late st Contact Info) Description 04/20/2023 Refill Family Practice [facility] [address] [place] [address] John Newby MD 132 [place] [address] Allergies Active Allergy Reactions Criticality Noted Date Comments Acetaminophen 05/06/2005 headaches documented as of this encounter (statuses as of 04/21/2023) Medications Medication Sig Dispensed Refills Start Date [...] 24 Hour (Imdur)Indications: Coronary artery disease involving port lions coronary artery [...] 270 Capsule 0 07/08/2022 4 Active Tiotropium [place] Monohydrate 18 MCG Inhalation Capsule (Spiriva) INHALE ONE CAPSULE VIA HANDIHALER EVERY MORNING. DO NOT SWALLOW CAPSULE. 90 Capsule 3 06/26/2022 4 Active Fluticasone-Salmete rol 230-21 MCG/ACT Inhalation Aerosol (Advair)Indications :COPD, group B, by GOLD 2017 classification ([facility]) INHALE TWO PUFFS BY MOUTH EVERY MORNING AND INHALE TWO PUFFS BY MOUTH AT BEDTIME, RINSE MOUTH AFTER USE 36 g 3 04/17/2022 4 Active Roflumilast 500 MCG Oral Tablet (Daliresp)Indicatio ns:COPD, group D, by GOLD 2017 classification ([facility], [...] MORNING 100 Tablet 1 04/21/2023 5 Active metFORMIN HCl 1000 MG Oral Tablet (Glucophage) TAKE ONE TABLET BY MOUTH EVERY MORNING 100 Tablet 1 09/03/2022 4 Discontinu ed(Refill) Hospital, Clinic, or Other Facility Administered Medication Ordered Dose Route Frequency Start Date End Date Status albuterol sulfate (PROVENTIL) (2.5 MG/3ML) 0.083% inhalation solution 2.5 mgIndications:COPD, severe (HCC) 2.5 mg NEBULIZER Q4H PRN 07/08/2018 Active documented as of this encounter (statuses as of 04/21/2023) Active Problems Problem Noted Date Diagnosed Date [...] as of this encounter (statuses as of 04/21/2023) Resolved Problems Problem Noted Date Diagnosed Date [...] as of this encounter (statuses as of 04/21/2023) Immunizations Name Administration Dates Next Due COVID-19 [...] encounter Miscellaneous Notes * Telephone Encounter - Enmanuel Rowe [facility] - 04/21/2023 8:24 AM ESTSigned Prescriptions: Disp Refills metFORMIN HCl 1000 MG Oral Tablet (Glucoph*100 Ta*1 Sig: TAKE ONE TABLET BY MOUTH EVERY MORNINGAuthorizing Provider: JOHN NEWBY User: ENMANUEL ROWE documented in this encounter Plan of Treatment Upcoming Encounters Date Type Department Care Team (Late st Contact Info) Description 04/23/2023 11:00 AM EST Office Visit Podiatry [facility] [address] [address] Bettye Herrmann, DPM [facility] [place] [address] 04/23/2023 3:20 PM EST Office Visit Family Practice [facility] [address] [place] [address] John Newby MD [address] [place] [address] 04/26/2023 11:30 AM EST Office Visit Orthopaedics [facility] [address] [place] [address] Zander Wilkins, [address] [place] [address] 04/30/2023 10:30 AM EST Office Visit Cardiology, [facility] 132 [facility] [place] [address] Warren Montoya, DO 132 [facility] [place] [address] 05/18/2023 1:00 PM EST Office Visit Gastroenterology, [facility] 132 [facility] [place] [address] Agnes Bowers CRNP [address] [place] [address] 05/31/2023 11:40 AM EST Office Visit Podiatry [facility] 132 [facility] [place] [address] Bettye Herrmann, DPLiat 400 [facility] [place] [address] 06/29/2023 2:00 PM EDT Office Visit Otolaryngology [facility] 132 [facility] [place] [address] Du Mota, DO 132 [facility] [place] [address] 07/08/2023 10:00 AM EDT Imaging Radiology [facility] 132 [facility] [place] [address] 07/13/2023 11:00 AM EDT Office Visit Radiation Oncology, [address] [place] [address] Shawna Johnson MD [address] [place] [address] [place] [address] 07/19/2023 11:40 AM EDT Office Visit Family Practice [facility] [address] [place] [address] John Newby MD [address] [place] [address] 09/16/2023 9:00 AM EDT Office Visit Cardiology, [facility] [address] [place] [address] Deisy Aguirre CRNP [address] [place] [address] Scheduled Procedures Name Priority Associated Diagnoses Date/Ti [...] exists DISCUSS TOBACCO CESSATION (REFER TO SMARTSET #0554) 05/01/2023 05/01/2022, 02/13/2022 Diabetic Foot Exam 09/10/2023 09/09/2022, 1 , 11/12/2017, Additional history exists HbA1c 10/16/2023 04/16/2023, 12/19, 06/05/2022, Additional history exists GFR 10/17/2023 04/18/2023, 03/21, 04/16/2023, Additional history exists DTaP,Tdap,and Td Vaccines (2 - Td or Tdap) 01/06/2024 01/05/2014 O2 ASSESSMENT COMPLETED IN PAST YEAR FOR COPD 01/15/2024 01/14/2023 Albumin/Creatinine Ratio 02/05/2024 023, 01/15/2023, 06/04/2021, Additional history exists CKD PHOS USE SMARTSET 94174 04/15/202403/20, 06/05/2022, 06/03/2021, Additional history exists CKD HGB USE SMARTSET 39726 04/18/202404/18, 04/17/2023, 04/16/2023, Additional history exists COLONOSCOPY-EVERY [...] this encounter Medical Devices Implanted Type Area Checking Clerk Device Identifier Shelf Expiration Date Model / Serial / Lot Lens Intraoc 24.0 - [id number] - [id number] Implanted:Qty: 1 on 06/01/2017 by Nikhil Bolton MD at OR [facility] Left: Eye [employer]USCH [employer] LOMB 07/17/2021 [id number] / [id number] / [id number] Lens Intraoc 24.0 - [id number] - [id number] Implanted:Qty: 1 on 06/08/2017 by Nikhil Bolton MD at OR [facility] Right: Eye BAUSCH [employer] LOMB 07/17/2021 [id number] / [id number] / [id number] documented as of this encounter Advance Directives Documents on File Type Date Recorded Patient Surfacing Technician Expl anation Advance Directives and Yu [...] and were consensually agreed upon. Care Teams Wet Room Worker Relationship Specialty Start Date End Date John Newby MD [address] [place] [address] PCP - General Family Medicine 09/13/20 documented as of this encounter
--- OUTSIDE RECORDS SUMMARY | 2023-07-12 18:50 | External Medical Summary | Summary of Care ---
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 TAKE ONE TABLET BY MOUTH EVERY MORNING 90 Tablet 3 09/18/2022 4 Active Lisinopril 20 MG Oral Tablet (Prinivil)Indication s:HTN, goal below 140/90 TAKE ONE TABLET BY MOUTH EVERY MORNING 90 Tablet 2 09/18/2022 4 Active FLUoxetine HCl 20 MG Oral Capsule (PROzac) TAKE THREE CAPSULES BY MOUTH EVERY MORNING 270 Capsule 0 07/08/2022 4 Active Tiotropium [place] Monohydrate 18 MCG Inhalation Capsule (Spiriva) INHALE [...] tis 01/05/2014 Coronary artery disease 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 11/27/2013 Tobacco abuse [...] 04/23/2023 11:00 AM EST Office Visit Podiatry [facility] 132 [facility] [place] [address] Bettye Herrmann, DPM [address] [place] [address] [place] [address] 04/23/2023 3:20 PM EST Office Visit Family Practice [facility] 132 [facility] [place] [address] Johnnie Newby MD 132 [facility] [place] [address] 04/26/2023 11:30 AM EST Office Visit Orthopaedics [facility] 132 [facility] [place] [address] Zander Wilkins, DO [address] [place] [address] 04/30/2023 10:30 AM EST Office Visit Cardiology, [facility] 132 [facility] [place] [address] Warren Montoya, 132 [facility] [place] [address] 05/18/2023 1:00 PM EST Office Visit Gastroenterology, [facility] [address] [place] [address] Agnes Bowers CRNP [address] [place] [address] 05/31/2023 11:40 AM EST Office Visit Podiatry [facility] 132 [facility] [place] [address] Bettye Herrmann DPM [address] [place] [address] [place] [address] 06/29/2023 2:00 PM EDT Office Visit Otolaryngology [facility] 132 [facility] [place] [address] Du Mota DO [address] [place] [address] 07/08/2023 10:00 AM EDT Imaging Radiology [address] [facility] [place] [address] 07/13/2023 11:00 AM EDT Office Visit Radiation Oncology, [address] [place] [address] Shawna Johnson MD [address] [place] [address] [place] [address] 07/19/2023 11:40 AM EDT Office Visit [facility] [place] [address] Johnnie Newby MD 132 [facility] [place] [address] 09/16/2023 9:00 AM EDT Office Visit Cardiology, [facility] [address] [place] [address] Deisy Aguirre CRNP [address] [place] [address] Scheduled Procedures Name Priority Associated Diagnoses Date/Ti [...] Additional history exists CKD PHOS USE SMARTSET 31436 04/15/202403/20, 06/05/2022, 06/03/2021, Additional history exists CKD HGB USE SMARTSET 51312 04/18/202404/18, 04/17/2023, 04/16/2023, Additional history exists COLONOSCOPY-EVERY [...] this encounter Medical Devices Implanted Type Area Inspection Manager Device Identifier Shelf Expiration Date Model / Serial / Lot Lens Intraoc 24.0 - [id number] - [id number] Implanted:Qty: 1 on 06/01/2017 by Nikhil Bolton MD at OR [facility] Left: Eye [employer]OMB 07/17/2021 [id number] / [id number] / [id number] Lens Intraoc 24.0 - [id number] - [id number] Implanted:Qty: 1 on 06/08/2017 by Nikhil Bolton MD at OR [facility] Right: Eye BAUSCH [employer] LOMB 07/17/2021 [id number] / [id number] / [id number] documented as of this encounter Procedures Procedure [...] interpreted or resulted by a [facility] or [facility] contracted radiologist. 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 Care Teams Silver Solderer Relationship Specialty Start Date End Date Johnnie Newby MD 132 [facility] [place] [address] PCP - General Family Medicine 09/13/20 documented as of this encounter
--- OUTSIDE RECORDS SUMMARY | 2023-07-12 18:51 | External Medical Summary | Summary of Care ---
Author Name Unknown Organization [facility] Address [address] [place] [address] Phone [phone] Care Team Providers Care Lath Hand Name Role Phone Johnnie Newby MD Primary Care Provider [phone] Reason for Visit * Auth/Cert Specialty Diagnoses / Procedures Referred By Contac t Referred To Contact Diagnoses NSTEMI (non-ST elevated myocardial infarction) (HCC) NSTEMI Referral ID Status Reason Start Date Expiration Date Visits Re quested Visits Authorized [id number] Encounter Details Date Type Department Care Team (Latest Contact Info) Description 04/15/2023 9:13 PM EST - 04/18/2023 3:07 PM EST Hospital Encounter [facility] 8, [facility] Advanced Medicine 8th Floor [address] [place] [address] Jose Nicholas MD [address], [place] [id number] Benny Moran MD [address] [place] [address] Various: EKG,KRAVS Discharge Disposition: Home - Self Care Allergies [...] 24 Hour (Imdur)Indications :Coronary artery disease involving lac vieux coronary artery without angina pectoris TAKE ONE [...] Capsule 0 3 07/08/19 24 Active Tiotropium Cascade Monohydrate 18 MCG Inhalation Capsule (Spiriva) INHALE ONE CAPSULE VIA HANDIHALER EVERY MORNING. DO NOT SWALLOW CAPSULE. 90 Capsule 3 3 06/26/19 24 Active Fluticasone-Salmet gume 230-21 MCG/ACT Inhalation Aerosol (Advair)Indication s:COPD, group B, by GOLD 2017 classification ([facility]) INHALE TWO PUFFS BY MOUTH EVERY MORNING AND INHALE TWO PUFFS BY MOUTH AT BEDTIME, RINSE MOUTH AFTER USE 36 g 3 2 05/18/19 24 Active Roflumilast 500 MCG Oral Tablet (Daliresp)Indicati ons:COPD, group D, by GOLD 2017 classification ([facility] [...] (toPROL XL)Indications:SVT (supraventricular tachycardia),NSVT (nonsustained ventricular tachycardia) ([facility]) [...] 90 Capsule 1 3 03/20/20 24 Active Aspirin 81 MG Oral Tablet Chewable Take 1 Tablet by mouth in the morning. Stop taking after 04/22/23. 4 Tablet 0 3 Active Clopidogrel Bisulfate 75 MG Oral Tablet (pLAVix) Take 1 Tablet by mouth in the morning. 30 Tablet 11 4 Active Nitroglycerin 0.4 MG Sublingual Tablet Sublingual (Nitrostat) Place 1 Tablet under the tongue every 5 minutes as needed for Pain, Chest. up to 3 doses in 15 minutes 75 Tablet 3 3 Active Aspirin 81 MG Oral Tablet Chewable chew 1 Tablet by mouth in the morning. 100 Tablet 3 3 04/18/20 23 Discontinued(Re fill) FLUoxetine HCl 20 MG Oral Capsule (PROzac) 3 caps by mouth every morning 270 Capsule 0 3 04/18/20 23 Discontinued documented as of this encounter (statuses as [...] 01/05/2014 Coronary artery disease invo lving lac vieux coronary artery of lac vieux heart without angina pectoris 11/27/2013 Tobacco abuse [...] Sign Reading Time Taken Comments Blood Pressure 88/46 04/18/2023 2:17 PM EST Pulse 56 04/18/2023 11:12 AM EST Temperature 36.9 C (98.4 F) 04/18/2023 2:17 PM ES T Respiratory Rate 18 04/18/2023 2:17 PM EST Oxygen Saturation 95% 04/18/2023 2:17 PM EST Inhaled Oxygen Concentration - - Weight 89 kg (196 lb 1.6 oz) 04/18/2023 6:24 AM EST Height 172.7 cm (5' 8") 04/15/2023 9:48 PM EST Body Mass Index 29.82 04/15/2023 9:48 PM EST documented in this encounter Functional [...] No 04/15/2023 documented as of this encounter Discharge Instructions * Discharge Instr - AVS* Conor Cueto DO - 04/18/2023 12:17 PM EST Discharge Date: 04/18/[address] Moran of the Department of Cardiology at [phone] during business hours for any questions or test results. For after-hours emergencies call [phone] and have your doctor paged. Scheduling services is available between the hours of 8:00 am and 9:00 pm by calling . For routine questions, your [facility] Cardiology Team prefers the use of Smore. Smore is an online internet tool to help you meet your health care needs quickly by providing a secure, confidential way to view your health records and communicate with your [facility] Cardiology Team. To sign up for Smore go to [email or web address], "Click" [place] Now on the right side of the screen and complete the user registration information. The information below provides you with the instructions and the list of medications you need to betaking following discharge from the hospital. If you have any questions, please ask before leaving.Please carry this letter with you when you see your doctor in the clinic. If you have questions, you can reach us at the numbers above. Brief summary of your inpatient care: You came to the hospital with chest pain and was found to have a heart attack. You were started on medications for your heart attack and taken for a heart catheterization which had shown a new blockage in one of the large arteries supplying blood to most of your heart. You were evaluated by the heart surgeons and they recommended bypass surgery. You declined bypass surgery and opted for medical management. You finished the medical management of your heart attack. You will need close follow up with your primary care and cardiology. Your primary diagnosis at discharge was NSTEMI (A type of heart attack) Your doctors during this hospitalization included: Dr. Moran of the Department of Cardiology Inpatient test results pending: None Operations & Procedures: Left heart catheterization Complications: none significant Advance Directive Documented: Advance Directive Does the Patient have an Advance Directive? No Diet: Heart healthy diet Activity: no lifting or pushing or pulling more than 10 lbs for 7 days Driving: You may resume driving 24 hours after discharge . Date you may return to work or school: N/A Laboratory tests: None Please call your primary care physician (Johnnie Newby MD) for an appointment within 3 day(s). Special Instructions: - Plavix or clopidogrel - This drug is most important for stent patients. It keeps the stent from blocking up by preventing blood clots from forming within the stent. When blood clots form, they block the stent and cause a heart attack. You should remain on Plavix until your jail guard tells you to stop taking it. Please call your jail guard before stopping Plavix for any reason.. - Aspirin - You need to take aspirin even though you are on Plavix. The preferred dose of aspirin is 81 mg per day (one baby aspirin). Use the non- coated kind. You will continue aspirin until 04/22/23.Afterwards you will only need Plavix and Eliquis. - Statin Drugs (cholesterol pill) slow the growth of heart artery blockages. Your statin drug is atorvastatin. - Nitroglycerin (nitro): Your should carry nitro at all times. When chest pain occurs take one nitro under tongue and call 911. You may take additional nitro every five minutes as needed for ongoing chest pain up to three pills. Lie down after using nitro. Do not drive after using nitro. Patients with chronic stable chest pain who frequently use nitro may not need to call 911. Ask your physician about this.. - Beta blockers are important for some cardiac patients and after a heart attack. Your beta blockeris metoprolol succinate - Do not use Motrin/Ibuprofen/Advil and other types of "NSAIDs" (nonsteroidal anti-inflammatory drugs) - "NSAIDs" make aspirin ineffective, can raise blood pressure, and can damage your kidneys. Try Tylenol for pain. Consult your pharmacist for questions about "NSAIDs".. Please STOP taking the following medications -Lisinopril: Please do not take this medication until you see your primary care doctor Please continue taking all other medications as previously prescribed. Radial Artery Catheterization Instructions for Post Care Activity: Do not use the arm we used for your procedure today. Do not lift more than 10 lbs for 3 days with arm used for procedure. A responsible adult must be with the patient for 24 hours after your procedure. Rest today but you may resume your usual activity tomorrow. Do not drive, operate any appliances and/or machinery or sign legal documents for 24 hours due to the anesthesia. You may return to work in 24 hours. You may wash the wrist with soap and water and you may shower. Do not soak the wrist in water without a waterproof bandage until the small incision is healed. If you notice bleeding, increased swelling, tingling in the fingers or pain in your forearm that is not relieved by Tylenol, please seek medical attention. If you develop a fever over 101 degrees F you should contact your jail guard. It is normal to have a small amount of discomfort for up to one week following your procedure but this should continue to improve with time, not worsen. If you have any questions or are concerned with how your arm is healing, call the doctor who did your procedure at . Keep the puncture site covered with a dry bandage for 24 hours, then remove the bandage. You shouldreplace it every 24 hours or if it gets wet. This should be done until the puncture site has completely healed. Cardiovascular RISK FACTOR control YOUR RISK FACTOR TREATMENT GOALS: Controlling the factors that cause arteries to form blockages will reduce your chance of having new blockages. Work with your health care providers to control your risk factors. If you have trouble reaching these goals then ask your health care provider to work with you further until they are controlled. Diabetes - In diabetics, hemoglobin A1C is a measure of the average blood sugar over the past 3 months. The goal is less than 7.0. Your result is: 6.0 Hypertension - Goal is less than 120/80. Your blood pressure is 100/50. High cholesterol LDL cholesterol (bad cholesterol) - goal is less than 70 mg/dl. HDL cholesterol (good cholesterol) - goal is greater than 40 mg/dl in men and 50 mg/dl in women. Triglycerides (other blood fats that are especially elevated in diabetics and pre-diabetics) - goal is less than 150 mg/dl. Your Lipid Panel Results are: Results for orders placed or performed during the hospital encounter of 04/15/23 LIPID PANEL WITHOUT DIRECT LDL Result Value Ref Range Triglycerides 139 <=174 mg/dL Cholesterol 155 <200 mg/dL HDL Cholesterol 31 (L) >39 mg/dL Non-HDL Cholesterol 124 <=159 mg/dL LDL Cholesterol 96 <=129 mg/dL Results for orders placed or performed in visit on 06/03/21 LIPID PANEL WITH DIRECT LDL IF TG IS HIGH Result Value Ref Range Triglycerides 202 (H) <=174 mg/dL Cholesterol 198 <200 mg/dL HDL Cholesterol 31 (L) >39 mg/dL Non-HDL Cholesterol 167 (H) <=159 mg/dL LDL Cholesterol 127 <=129 mg/dL Tobacco - Tobacco is poison to your arteries. It will cause blockages. Continuing to smoke tobacco may lead to heart attacks, strokes, or leg amputation. You should avoid tobacco. Your goal is to notsmoke at all. Talk with your primary care provider about counseling and medications to help you stop smoking. Exercise - The [place] [employer] recommends walking 30 minutes a day most days of the week; if you have to lose weight you should walk 60-90 minutes a day. Remember that if you develop chestpain, you should stop what you are doing. Do not continue to exercise if you have chest pain. See your special activity instructions above. Novi weight - Your BMI (a measure of ideal body weight) is Body mass index is 29.82 kg/m.. Your BMI should be less than 25. Your waist size also predicts risk of heart attack: a woman's waist should be less than 35 inches and a man's waist less than 40. Maintaining your ideal body weight will help your heart, reduce blood pressure, blood sugar, and cholesterol, improve or help prevent diabetes, and improve or help prevent congestive heart failure. 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 PTSD (post-traumatic stress disorder) F43.10 Gastroesophageal reflux disease without esophagitis K21.9 Type 2 diabetes mellitus with hemoglobin A1c goal of less than 8.0% ([facility]) E11.9 NSTEMI (non-ST elevated myocardial infarction) ([facility]) I21.4 YISSEL treated with BiPAP G47.33 Peripheral arterial disease ([facility]) I73.9 Dyslipidemia E78.5 COPD, group D, by GOLD 2017 classification ([facility]) J44.9 Carotid stenosis, non-symptomatic I65.29 NSVT (nonsustained ventricular tachycardia) ([facility]) I47.29 Aortic valve stenosis I35.0 AAA (abdominal aortic aneurysm) ([facility]) I71.40 Chronic kidney disease, stage 3a (HCC) N18.31 Malignant neoplasm of right upper lobe of lung (HCC) C34.11 Obesity, Class I, BMI 30.0-34.9 (see actual BMI) E66.9 Depression with anxiety F41.8 History of cardioembolic cerebrovascular accident (CVA) Z86.73 Gouty arthropathy M10.9 Diabetic peripheral neuropathy (HCC) E11.42 Diverticulosis of large intestine without hemorrhage K57.30 Anemia of chronic disease D63.8 Closed nondisplaced fracture of fifth metatarsal bone of right foot with routine healing S92.354D Medication covered during teaching session: Clopidogrel Indication for Antiplatelet Therapy: MT Duration of Antiplatelet Therapy: 1 year Teaching points covered with patient and/or family: Route, Dosage Form and Schedule, Medication Intended Use/Action, Precautions to be Observed while using this Medication, Commonly Encountered Adverse Effects, Methods for Self- monitoring, Laboratory Monitoring, Potential Food and Drug Interactions, Therapeutic Contraindications, Prescription Refill Information, Action for a Missed Dose, and Patient Specific Information Written documentation regarding all of the teaching points was provided to the patient and/or family members present. accepted patient education handout. Outpatient antiplatelet medication supply: Patient requires a prescription for this antiplatelet medication: Patient prefers to have the prescription sent to his/her preferred pharmacy. Family member(s) present: self Patient agreed to allow visitors to attend teaching, if present. Assessment of teaching effectiveness: Patient is a 77 year old male newly on clopidogrel for medical management of myocardial infarction. Patient voices understanding and has no questions at this time. Has the patient expressed potential cost concerns? No Length of teaching: Intermediate (15 to 30 minutes) Teaching completed according to pharmacy teaching standard 508. * Renae Monsivais MD - 04/17/2023 11:27 AM EST PROGRESS NOTE - Resident - Cardiology [facility]-[address] [address] Name: Pelon Don Location: [facility] H854/A Date: 04/17/2023 Time: 11:27 AM OVERNIGHT EVENTS: Had left sided shoulder pain, received oxy 5 with relief SUBJECTIVE: Patient seen and examined at bedside. Denies any chest pain. States his shoulder pain has reduced significantly. Denies worsening sob. Expresses strongly wants to go home ROS negative except as otherwise listed above. PHYSICAL EXAMINATION: Most Recent Vital Signs: BP: 102 mmHg/46 mmHg (04/17/23 07) Pulse: 72 (04/16/23 2236) Temp: 36.61 C (04/17/23700) Resp: 17 (04/17/23700) SpO2: 94 % (04/17/23700) GENERAL: comfortably sitting in chair, no acute distress, non toxic appearance HEENT: Moist mucous membranes, clear conjunctiva bilaterally CARDIO: RRR, no murmurs/rubs/gallops appreciated PULM: c good airway movement, expiratory wheezing noted bilaterally ABDOMEN: soft, NTND EXTREMITIES: no pedal edema, ulcerative lesions on bilateral shins MSK: normal muscle bulk and tone, no apparent joint deformities or swelling SKIN: warm, dry, intact NEURO: alert, oriented, answers questions appropriately, moving all extremities with no obvious focality LINES ALL Duration Peripheral Line Left Arm 18 Gauge 3 days Peripheral Line Left;Lower 22 Gauge 1 day Intake & Output Summary (Last 24 hours): Intake/Output Summary (Last 24 hours) at 04/17/2023 1127 Last data filed at 04/17/2023 0300 Gross per 24 hour Intake 462 ml Output 1575 ml Net -1113 ml Net IO Since Admission: -860 mL [04/16/23 1406] STUDIES: Labs and other studies reviewed Chemistry Panel Lab results within last 7 days (see chart for full results) Units 04/17/23 0629 04/16/23 2056 04/16/23 0550 04/15/23 2258 Sodium mmol/L 141 139 141 139 Potassium mmol/L 4.1 4.7 4.3 4.7 Chloride mmol/L 103 102 107 106 CO2 mmol/L 26 25 23 23 BUN mg/dL 30* 29* 28* 27* Creatinine mg/dL 1.7* 1.6* 1.4* 1.4* Glucose mg/dL 102 114 110 112 Calcium mg/dL 9.0 9.1 9.2 9.3 Magnesium mg/dL -- -- -- 2.2 Phosphorus mg/dL -- -- -- 3.3 Anion Gap mmol/L 12 12 11 10 Complete Blood Count Lab results within last 7 days (see chart for full results) Units 04/17/23 0629 04/16/23 1545 04/16/23 0550 04/15/23 2258 WBC K/uL 5.49 7.82 8.28 7.39 HGB g/dL 8.8* 8.5* 8.8* 8.6* HCT % 29.8* 28.3* 30.5* 29.2* PLT K/uL 227 246 245 237 MCV fL 87.1 87.1 88.4 86.6 Cardiac Studies Lab results within last 7 days (see chart for full results) Units 04/16/23 1153 04/16/23 0550 04/15/23 2258 Troponin T, High Sensitivity ng/L 125* 142* 145* BNP, NT-Pro pg/mL -- -- 3,612* Radiographic Studies: I have personally reviewed the results as of XR CHEST 1 VIEW Result Date: 04/16/2023 IMPRESSION: 1. Hypoventilatory changes with patchy bibasilar airspace disease which may represent atelectasis or developing pneumonia. 2. Recommend follow-up chest CT for left midlung nodular opacitylikely corresponding with nodule seen on prior CT. Radiology results reporting pathway was initiated given that a follow-up recommendation was provided and to activate [place] Act 112 patient communication. IMPRESSION : Principal Problem: NSTEMI (non-ST elevated myocardial infarction) (HCC) (POA: Yes) Active Problems: HTN, goal below 130/80 (POA: Yes) Overview: Modified per HTN protocol #16. Tobacco abuse (POA: Yes) PTSD (post-traumatic stress disorder) (POA: Yes) Gastroesophageal reflux disease without esophagitis (POA: Yes) Type 2 diabetes mellitus with hemoglobin A1c goal of less than 8.0% (HCC) (POA: Yes) Overview: ICD-10 update of inactive term YISSEL treated with BiPAP (POA: Yes) Overview: Wears BiPAP at night Dyslipidemia (POA: Yes) Aortic valve stenosis (POA: Yes) AAA (abdominal aortic aneurysm) (HCC) (POA: Yes) Overview: 4.1 cm AAA noted on PET CT 05/29/20 Chronic kidney disease, stage 3a (HCC) (POA: Yes) Overview: Per CKD protocol Obesity, Class I, BMI 30.0-34.9 (see actual BMI) (POA: Yes) History of cardioembolic cerebrovascular accident (CVA) (POA: Yes) POA = Present On Admission DIFFERENTIAL DIAGNOSIS AND PLAN OF CARE: NSTEMI DLD CAD w/ complete occlusion of RCA and LCX S/p cardiac cath revealing LMCA critical stenosis and is severely aneurysmal -CTS consulted, as documented patient refuses further surgical intervention offered to him - will optimize medically -Continue ASA 81mg daily+ Lipitor 80mg daily -Will load with plavix today -Started on valsartan 20 mg BID -Will discontinue Heparin (completed 48 hours) -Continue CRECHE ATTENDANT imdur 60mg daily -Started on CRECHE ATTENDANT Toprol 25 AM today -Possible dispo tomorrow after assessment Acute HFrEF exacerbation (Stable) Hypoxemia-improved Patient with no prior supplemental O2 needs. This may be in the setting of pulmonary edema. - IV lasix 40mg daily BID - I/Os Q4H - Daily weights - BMP daily Anemia, chronic Appears to be chronically anemic with recent EGD and colonoscopy (found gastric polyp) - CBC daily -IV venofer 200 mg x4 days - Iron studies noted to be significant for iron deficiency Chronic conditions: NIDDM2: HOLD CRECHE ATTENDANT metformin. Start on MDSSI Q6H COPD: Formulary equivalent breo and incruse ellipta daily. Continue CRECHE ATTENDANT Daliresp Mood: Continue CRECHE ATTENDANT Fluoxetine 60mg daily. HOLD PRN buspar and clonazepam Neuropathy: Continue CRECHE ATTENDANT gabapentin 300mg HS YISSEL: NIV HS DVT PPX: Apixaban Bowel: Diet: Orders Placed This Encounter Procedures Heart Healthy Consistent Carbohydrate Diet : Sodium: 2 gm --- Number of Choices: 4 (60 grams) --- Fluid Restriction (ml): None CODE STATUS: Full Code Discussion of adv directives occurred with - adult: Patient Patient will be seen and examined by attending physician, Benny Moran MD Associated attestation - Benny Moran MD - 04/17/2023 1:45 PM EST I saw and evaluated the patient today. I have reviewed the trainee note and agree. Case D/W patient, family and CTVS in detail. Will peruse medical management due to high surgical risk and lack of PCI option 50 minutes of care time was provided to the patient * Renae Monsivais MD - 04/16/2023 2:05 PM EST PROGRESS NOTE - Resident - Cardiology [facility]-[address] [address] Name: Pelon Don Location: CATH/Cath Date: 04/16/2023 Time: 2:06 PM OVERNIGHT EVENTS: Admitted to cardiology SUBJECTIVE: Patient seen and examined at bedside. Denies chest pain or pressure since in hospital. Does endorse shortness of breath that continues to bother him. ROS negative except as otherwise listed above. PHYSICAL EXAMINATION: Most Recent Vital Signs: BP: 128 mmHg/73 mmHg (04/16/23 1227) Pulse: 78 (04/16/23 1227) Temp: 36.89 C (04/16/23 1126) Resp: 20 (04/16/23 1227) SpO2: 89 % (04/16/23 1227) GENERAL: comfortably laying in bed, no acute distress, non toxic appearance HEENT: Moist mucous membranes, clear conjunctiva bilaterally CARDIO: RRR, no murmurs/rubs/gallops appreciated PULM: c good airway movement, expiratory wheezing noted bilaterally ABDOMEN: soft, NTND EXTREMITIES: no pedal edema, ulcerative lesions on bilateral shins MSK: normal muscle bulk and tone, no apparent joint deformities or swelling SKIN: warm, dry, intact NEURO: alert, oriented, answers questions appropriately, moving all extremities with no obvious focality LINES ALL Duration Peripheral Line Left Arm 18 Gauge 2 days Peripheral Line Left;Lower 22 Gauge <1 day Intake & Output Summary (Last 24 hours): Intake/Output Summary (Last 24 hours) at 04/16/2023 1406 Last data filed at 04/16/2023 1125 Gross per 24 hour Intake 240 ml Output 1100 ml Net -860 ml Net IO Since Admission: -860 mL [04/16/23 1406] STUDIES: Labs and other studies reviewed Chemistry Panel Lab results within last 7 days (see chart for full results) Units 04/16/23 0550 04/15/23 2258 Sodium mmol/L 141 139 Potassium mmol/L 4.3 4.7 Chloride mmol/L 107 106 CO2 mmol/L 23 23 BUN mg/dL 28* 27* Creatinine mg/dL 1.4* 1.4* Glucose mg/dL 110 112 Calcium mg/dL 9.2 9.3 Magnesium mg/dL -- 2.2 Phosphorus mg/dL -- 3.3 Anion Gap mmol/L 11 10 Complete Blood Count Lab results within last 7 days (see chart for full results) Units 04/16/23 0550 04/15/23 2258 WBC K/uL 8.28 7.39 HGB g/dL 8.8* 8.6* HCT % 30.5* 29.2* PLT K/uL 245 237 MCV fL 88.4 86.6 Cardiac Studies Lab results within last 7 days (see chart for full results) Units 04/16/23 1153 04/16/23 0550 04/15/23 2258 Troponin T, High Sensitivity ng/L 125* 142* 145* BNP, NT-Pro pg/mL -- -- 3,612* Radiographic Studies: I have personally reviewed the results as of XR CHEST 1 VIEW Result Date: 04/16/2023 IMPRESSION: 1. Hypoventilatory changes with patchy bibasilar airspace disease which may represent atelectasis or developing pneumonia. 2. Recommend follow-up chest CT for left midlung nodular opacitylikely corresponding with nodule seen on prior CT. Radiology results reporting pathway was initiated given that a follow-up recommendation was provided and to activate [place] Act 112 patient communication. IMPRESSION : Principal Problem: NSTEMI (non-ST elevated myocardial infarction) (HCC) (POA: Yes) Active Problems: HTN, goal below 130/80 (POA: Yes) Overview: Modified per HTN protocol #16. Tobacco abuse (POA: Yes) PTSD (post-traumatic stress disorder) (POA: Yes) Gastroesophageal reflux disease without esophagitis (POA: Yes) Type 2 diabetes mellitus with hemoglobin A1c goal of less than 8.0% (HCC) (POA: Yes) Overview: ICD-10 update of inactive term YISSEL treated with BiPAP (POA: Yes) Overview: Wears BiPAP at night Dyslipidemia (POA: Yes) Aortic valve stenosis (POA: Yes) AAA (abdominal aortic aneurysm) (HCC) (POA: Yes) Overview: 4.1 cm AAA noted on PET CT 05/29/20 Chronic kidney disease, stage 3a (HCC) (POA: Yes) Overview: Per CKD protocol Obesity, Class I, BMI 30.0-34.9 (see actual BMI) (POA: Yes) History of cardioembolic cerebrovascular accident (CVA) (POA: Yes) POA = Present On Admission DIFFERENTIAL DIAGNOSIS AND PLAN OF CARE: NSTEMI DLD CAD w/ complete occlusion of RCA and LCX Patient's symptoms of chest pain, dynamic EKG changes and elevated serial troponin in the setting of known CAD (RESIDENT MANAGER of RCA and Lcx with collaterals from LAD) is concerning for NSTEMI. In addition, TTE was performed at [facility], which shows reduction in LVEF to 35% with WMAs. - Continue heparin gtt -Cardiac cath today - ASA 81mg daily+ Lipitor 80mg daily - HbA1c 6.0 - NPO after mn for LHC. Patient remarks that his prior cath in 2005 was via femoral access, which resulted in a large hematoma. In addition, he has PAD in the R iliac/femoral arteries and prefers radial access. - TTE already done at [facility] (see scans, and accompanying patient documentation from [facility]) - Continue CRECHE ATTENDANT imdur 60mg daily -Started on CRECHE ATTENDANT Toprol 25 AM today -Hold eliquis for cath and also heparinised Acute HFrEF exacerbation Hypoxemia Patient with no prior supplemental O2 needs. This may be in the setting of pulmonary edema. - RVP negative - Wean supplemental O2 to > 92%. - IV lasix 40mg daily BID - I/Os Q4H - Daily weights - BMP daily Anemia, chronic Appears to be chronically anemic with recent EGD and colonoscopy (found gastric polyp) - CBC daily - Iron studies noted to be significant for iron deficiency: On venofer IV for repletion Chronic conditions: NIDDM2: HOLD CRECHE ATTENDANT metformin. Start on MDSSI Q6H COPD: Formulary equivalent breo and incruse ellipta daily. Continue CRECHE ATTENDANT Daliresp Mood: Continue CRECHE ATTENDANT Fluoxetine 60mg daily. HOLD PRN buspar and clonazepam Neuropathy: Continue CRECHE ATTENDANT gabapentin 300mg HS YISSEL: NIV HS DVT PPX: Apixaban hEParin Bowel: Diet: Orders Placed This Encounter Procedures NPO Except Meds CODE STATUS: Full Code Discussion of adv directives occurred with - adult: Patient Patient will be seen and examined by attending physician, Benny Moran MD Associated attestation - Benny Moran MD - 04/16/2023 2:26 PM EST I saw and evaluated the patient today. I have reviewed the trainee note and agree. documented in this encounter H&P Notes * Shoshana Paul MD - 04/15/2023 8:25 PM EST Images from the original note were not included. HISTORY AND PHYSICAL EXAMINATION - Cardiology [address] [id number] Name: Pelon Don Location: [facility] H854/[id number] Date: 04/15/2023 Time: 8:25 PM PRESENTING PROBLEM: Chest pain HPI: Pelon Don is a 77 year old male with significant history of: CAD w/ 100% occlusion of RCA and Lcx with 30% LAD stenosis providing collaterals SVT/PAF on eliquis COPD, not on baseline supplemental O2 Active tobacco use YISSEL on B-PAP NIDDM2 (HbA1c 6%) DLD CKD3a PAD (50% stenosis of R common iliac and 100% occlusion of R common femoral artery) AAA (4cm, 12/31/2022) Hx of CVA (2011) Lung adenocarcinoma s/p radiation therapy Chronic anemia MDD/NAN According to the patient, he developed severe substernal chest pain that started abrupty on the evening of 04/14/2023. It lasted a few seconds and resolve spontaneously. However, a few hours later, he experienced severe retro-sternal chest tightness that was associated with dyspnea, stating that itwas worse with exertion and alleviated with rest. It did not radiate to the jaw or down the left arm. Patient states the pain persisted for approximately 45 minutes, which prompted him to call EMS. Upon arrival, they placed him on oxygen which resulted in resolution of the pain. Patient was taken to [facility]. At [facility], patient's EKG was significant for ST depressions in infero-lateral leads and serial troponin were 49.9 -> 331.5 -> 383.8. Patient was treated as an NSTEMI and received ASA 324mg (priorto hospital presentation) and started on heparin gtt. Patient was subsequently transferred to [facility] for LHC. TTE at [facility] significant for LVEF of 35-40% with large inferior, posterior, and lateral WMAs. Of note, patient is noted to be a new supplemental oxygen requirement. CXR at [facility] is reported to have shown pulmonary edema with BNP 708, for which patient received IV lasix. Lives at home with his Does not have baseline ambulatory deficits, though recently fractured his RLE and uses a brace. Smokes 1.5 packs per day for the last 70 years. Does not consume alcohol. Patient would like to be a FULL CODE during this admission Prior cardiac studies: TTE report (07/30/2022) Interpretation Summary The qualitative LV ejection fraction is 65-69% (normal). The left ventricular cavity size is normal. The LV wall thickness is mildly increased (concentric). The left ventricular wall motion is normal. The left ventricular diastolic function is mildly abnormal (grade I). Moderate aortic valve stenosis. Nuclear stress test () Interpretation Summary This study has what is deemed to be a "significant abnormality" consistent with ACT 112. See additional documentation regarding notification of patient and ordering provider. Gated SPECT imaging reveals normal myocardial thickening and wall motion. The left ventricular ejection fraction was calculated to be 56%. Overall this pharmacologic nuclear stress test reveals a moderate amount of ischemia in the inferior and inferior basilar myocardium. These findings are most consistent with a right coronary or left circumflex arteries. This study has what is deemed to be a "significant abnormality" consistent with ACT 112. See additional documentation regarding notification of patient and ordering provider. Cardiac catheterization report (05/08/2005) PAST MEDICAL HISTORY: Past Medical History: Diagnosis Date Anemia of [...] (HCC) 10/23/2014 ICD-10 update of inactive term PAST SURGICAL HISTORY: Past Surgical History: Procedure Laterality Date BRONCHOSCOPY, DIAGNOSTIC N/A 06/12/2020 BRONCHOSCOPY DIAGNOSTIC WITH OR WITHOUT WASHING performed by Warren Patel MD at ENDOSCOPY [facility] COLONOSCOPY THRU STOMA, W/BIOPSY 05/28/2010 andenomatous tissue--repeat in 3 months COLONOSCOPY THRU STOMA, W/BIOPSY 09/18/2010 adenomatous-repeat colonoscopy in 3-6 months COLONOSCOPY THRU STOMA, W/BIOPSY 04/09/2011 polyps x3 , path shows adenomatous tissue repeat in 1 years COLONOSCOPY, DIAGNOSTIC (RECTUM) 05/20/2016 adenomatous polyps, poor prep, diverticulosis, repeat 3 yrs/[facility] COLONOSCOPY, DIAGNOSTIC (RECTUM) 06/06/2019 hemorrhoids/diverticulosis sigmoid and descending colon/small AVM/biopsies show adenomatous polyps/recall 6-9 months/COLONOSCOPY FLEXIBLE PROXIMAL DIAGNOSTIC performed by Clemencia Marinelli MD atENDOSCOPY [facility] COLONOSCOPY, DIAGNOSTIC (RECTUM) 03/05/2022 benign adenomatous polyp, repeat 1 yr / COLONOSCOPY FLEXIBLE PROXIMAL DIAGNOSTIC performed by Clemencia Marinelli MD at ENDOSCOPY [facility] COLONOSCOPY, DIAGNOSTIC (RECTUM) 01/14/2023 hemorrhoids/diverticulosis/biopsies show hyperplastic polyps/recall 2 years/COLONOSCOPY FLEXIBLE PROXIMAL DIAGNOSTIC performed by Destiny Mojica DO at ENDOSCOPY [facility] DESTROY LUMBAR SACRAL NERVE IMAGING ADD'L 01/27/2023 DESTROY LUMBAR SACRAL NERVE IMAGING ADD'L performed by Pb Alexander DO at OR [facility] DESTROY LUMBAR SACRAL NERVE IMAGING SINGLE 01/27/2023 DESTROY LUMBAR SACRAL NERVE IMAGING SINGLE performed by Pb Alexander DO at OR [facility] EGD, FLEXIBLE, DIAGNOSTIC 01/14/2023 gsatric polyp/ESOPHAGOGASTRODUODENOSCOPY (EGD), FLEXIBLE, TRANSORAL, DIAGNOSTIC performed by Phong Mojica DO at ENDOSCOPY [facility] L-/S-SPINE PARAVERTEBRAL FACET INJ,1 LEVEL 11/25/2022 L-/S-SPINE PARAVERTEBRAL FACET INJ, 1 LEVEL performed by Pb Alexander DO at OR [facility] L-/S-SPINE PARAVERTEBRAL FACET INJ,1 LEVEL 01/06/2023 L-/S-SPINE PARAVERTEBRAL FACET INJ, 1 LEVEL performed by Pb Alexander DO at OR [facility] L-/S-SPINE PARAVERTEBRL FACET INJ,2 LEVELS 11/25/2022 L-/S-SPINE PARAVERTEBRAL FACET INJ, 2 LEVELS performed by Pb Alexander DO at OR [facility] L-/S-SPINE PARAVERTEBRL FACET INJ,2 LEVELS 01/06/2023 L-/S-SPINE PARAVERTEBRAL FACET INJ, 2 LEVELS performed by Pb Alexander DO at OR [facility] MISCELLANEOUS ORDER ([facility] ONLY) 1998 henria repair OTHER (INFORMATION) pilonidal cyst removal OTHER (INFORMATION) repair of bilateral shoulder for bone spur and repair of torn muscles right shoulder REMOVE CATARACT, INSERT LENS PROSTH Left 06/01/2017 left EXTRACAPSULAR CATARACT REMOVAL WITH INTRAOCULAR LENS performed by Nikhil Bolton MD at [facility] REMOVE CATARACT, INSERT LENS PROSTH Right 06/08/2017 right EXTRACAPSULAR CATARACT REMOVAL WITH INTRAOCULAR LENS performed by Nikhil Bolton MD at OR [facility] FAMILY HISTORY: Family History Problem Relation Age of Onset Cancer Mother colon Gastro-intestinal disorder Sister crohn's No Known Problems Father Heart disease Brother Heart disease Brother SOCIAL HISTORY: Social History Tobacco Use Smoking status: Every Day Packs/day: 1.50 Years: 69.00 Additional pack years: 0.00 Total pack years: 103.50 Types: Cigarettes Smokeless tobacco: Never Tobacco comments: started age 7 Vaping Use Vaping Use: Never used Substance Use Topics Alcohol use: No Drug use: No CRECHE ATTENDANT MEDICATIONS: Prior to admission medications have been reviewed, though patient states he is unsure of all his medications, he states that the list we have is current and up to date. It was also cross checked with records from [facility]. ALLERGIES: Tylenol [acetaminophen] ROS: Pertinent ROS reviewed in HPI, otherwise negative. PHYSICAL EXAMINATION: Admission Vital Signs: BP: 137 mmHg/71 mmHg (04/15/232130) Pulse: 66 (04/15/232130) Temp: 36.89 C (04/15/232130) Resp: 24 (04/15/232130) SpO2: 97 % (04/15/232130) Physical Exam: Constitutional: no acute distress HEENT: normal: normocephalic, atraumatic; no masses, tenderness, or adenopathy Eyes: PERRLA, sclera and conjunctiva normal CV: normal rate, normal rhythm, no gallop, (+) murmur Chest: normal respiratory effort, lungs clear to auscultation and percussion, (+)Barrel shaped chest Abdomen: normal: soft, bowel sounds normal, no masses, tenderness or organomegaly Extremities: no edema, (+) RLE in brace, LLE with healed injury Skin: warm, dry: Neuro: alert, oriented to person, place, and time, normal mental status exam OBJECTIVE DATA: Labs: WBC 7.39 Hb 8.6 PLT 237 INR 1 Trop 145 BUN 27 Creat 1.4 Na 139 K 4.7 Mag 2.2 Phos 3.3 AST 22 ALT 20 ALP 115 Imaging: CXR - Per my interpretation Bi-basilar pulmonary edema ECG: From [facility] IMPRESSION AND PLAN: Pelon Don is a 77 year old male with pertinent past medical history significant for CAD, PAD, DLD, NIDDM2, active tobacco use, COPD, YISSEL, CKD and CHARANJIT presenting with chest pain in the setting of dynamic EKG changes with elevated troponin, concerning for NSTEMI. Principal Problem: NSTEMI (non-ST elevated myocardial infarction) (HCC) (POA: Yes) Active Problems: HTN, goal below 130/80 (POA: Yes) Tobacco abuse (POA: Yes) PTSD (post-traumatic stress disorder) (POA: Yes) Gastroesophageal reflux disease without esophagitis (POA: Yes) Type 2 diabetes mellitus with hemoglobin A1c goal of less than 8.0% (HCC) (POA: Yes) YISSEL treated with BiPAP (POA: Yes) Dyslipidemia (POA: Yes) Aortic valve stenosis (POA: Yes) AAA (abdominal aortic aneurysm) (HCC) (POA: Yes) Chronic kidney disease, stage 3a (HCC) (POA: Yes) Obesity, Class I, BMI 30.0-34.9 (see actual BMI) (POA: Yes) History of cardioembolic cerebrovascular accident (CVA) (POA: Yes) Resolved Problems: * No resolved hospital problems. * POA = Present On Admission NSTEMI DLD CAD w/ complete occlusion of RCA and LCX Patient's symptoms of chest pain, dynamic EKG changes and elevated serial troponin in the setting of known CAD (RESIDENT MANAGER of RCA and Lcx with collaterals from LAD) is concerning for NSTEMI. In addition, TTE was performed at [facility], which shows reduction in LVEF to 35% with WMAs. - Continue heparin gtt - ASA 81mg daily - Lipitor 80mg daily - HbA1c and lipid panel ordered - Trend troponin to peak - NPO after mn for [facility]. Patient remarks that his prior cath in 2005 was via femoral access, which resulted in a large hematoma. In addition, he has PAD in the R iliac/femoral arteries and prefers radial access. - TTE already done at [facility] (see scans, and accompanying patient documentation from [facility]) - Continue CRECHE ATTENDANT imdur 60mg daily Acute HFrEF exacerbation Hypoxemia Patient with no prior supplemental O2 needs. This may be in the setting of pulmonary edema. - RVP ordered - Wean supplemental O2 to > 92%. - IV lasix 40mg daily - NT-proBNP ordered - I/Os Q4H - Daily weights - BMP daily Anemia, chronic Appears to be chronically anemic with recent EGD and colonoscopy (found gastric polyp) - CBC daily - Iron studies, ferritin, folate and vitamin B12 levels ordered Chronic conditions: NIDDM2: HOLD CRECHE ATTENDANT metformin. Start on MDSSI Q6H COPD: Formulary equivalent breo and incruse ellipta daily. Continue CRECHE ATTENDANT Daliresp Mood: Continue CRECHE ATTENDANT Fluoxetine 60mg daily. HOLD PRN buspar and clonazepam Neuropathy: Continue CRECHE ATTENDANT gabapentin 300mg HS YISSEL: NIV HS Diet: NPO except meds VTE prophylaxis: Heparin gtt CODE STATUS: Full Code Discussion of adv directives occurred with - adult: Patient EXPECTED DISCHARGE DATE: 1-2 days This patient was discussed with Dr. Guero Acosta, car repair supervisor, at the time of admission. Will be discussed with Dr. Moran in the morning. Shoshana Paul MD Internal Medicine Resident, PGY2 Associated attestation - Benny Moran MD - 04/16/2023 2:25 PM EST I saw and evaluated the patient today. I have reviewed the trainee note and agree. Patient presentation is concerning for NSTEMI and heart failure Diuresis today and proceed with coronary angiogram later in the day 80 minutes of care time was provided to the patient documented in this encounter Procedure Notes * Ryan Linn MD - 04/15/2023 9:26 PM ESTAssociated Order(s): EKG REASON FOR STUDY: Chest Pain CONCLUSIONS: Sinus rhythm with 1st degree AV block ST & T wave abnormality, consider lateral ischemia When compared with ECG of 08-DEC-2022 14:39, Premature ventricular complexes are no longer Present Ventricular Rate: 68 Atrial Rate: 68 SD Interval: 220 QRS Duration: 90 QT/QTc: 416/442 ms P-R-T Anderson: 0 : -12 : 220 degrees documented in this encounter Consult Notes * Marly Jones PA-C - 04/17/2023 6:40 PM ESTAssociated Order(s): CARDIAC SURGERY CONSULT IP Please see consult note from 04/16 * Jaren Berman RN - 04/16/2023 3:23 PM ESTAssociated Order(s): BLOOD MANAGEMENT CONSULT IP CONSULT - Patient Blood Management [address] [address] Name: Pelon Don Location: [facility] H854/A Date: 04/16/2023 Time: 3:23 PM REQUESTING SERVICE: [facility] CVTS REASON FOR CONSULT: new evaluation inpatient, pre-op Recent hemorrhage: no History of prior anemia: yes Recent surgery: no Anemia Evaluation: Latest Reference Range & Units 04/15/23 22:58 04/16/23 05:50 HGB 14.0 - 16.8 g/dL 8.6 (L) 8.8 (L) HCT 40.0 - 48.4 % 29.2 (L) 30.5 (L) Iron 45 - 176 ug/dL 25 (L) Iron Binding Capacity 250 - 425 ug/dL 297 Transferrin Saturation Percent 15 - 55 % 8 (L) Ferritin 30 - 400 ng/mL 30 Vitamin B12 232 - 1,245 pg/mL 1,515 (H) Folic Acid >4.5 ng/mL >20.0 (L): Data is abnormally low (H): Data is abnormally high Current Patient Medications: Medications that may impair hemostasis: bASA Medications that may impair iron absorption: none Patient Refused Blood Transfusion? (e.g. Jainism): no Possible Contributing Factors: iron deficiency Treatment Recommendations: Venofer 200mg IVPB daily x 4 more days (1gm total) Follow-up Recommendations: Follow up with PCP for further assessment/management of anemia post discharge. Will follow up with Cardiology resident. Thank you for allowing Blood Management to participate in the care of this patient. * Marly Jones PA-C - 04/16/2023 3:01 PM EST Images from the original note were not included. CONSULT - CARDIAC SURGERY [facility]-[address] [address] Name: Pelon Don Location: CATH/Cath Date: 04/16/2023 Time: 3:01 PM REFERRING PHYSICIAN: Spencer Ventura DO PCP: Johnnie Newby MD ENVIRONMENTAL PROTECTION SPECIALIST: Warren Montoya DO Preference for return visit: [facility] REQUESTING SERVICE: cardiology REASON FOR CONSULT: "CABG eval. RESIDENT MANAGER of RCA and LCx, new LMCA disease. " HPI: Pelon Don is a 77 year old male who presents with new LM coronary artery disease, and chronic total occlusion of the RCA and LCx. Patient has a PMHx for CAD w/ 100% occlusion of RCA and Lcx with 30% LAD stenosis providing collaterals SVT/PAF on eliquis COPD, not on baseline supplemental O2 Active tobacco use YISSEL on B-PAP NIDDM2 (HbA1c 6%) DLD CKD3a PAD (50% stenosis of R common iliac and 100% occlusion of R common femoral artery) AAA (4cm, 12/31/2022) Hx of CVA (2011) Lung adenocarcinoma s/p radiation therapy Chronic anemia MDD/NAN Recent RLE fracture for which he uses a brace Patient presented due to severe substernal chest pain which started on the evening of 04/14. It lasted briefly and resolved without intervention. A few hours later he developed retrosternal chest pain associated with dyspnea. These symptoms worsened with exertion and improved with rest. It lasted for 45 minutes which promoted him to call EMS and was sent to [facility]. At [facility] patient has new oxygen requirements and xray demonstrated pulmonary edema. BNP was 708. He was treated with IV lasix. Patient lives at home with his . He smokes 1.5 packs per day for the last 70 years. Patient has history of chest pain/angina: Yes, see HPI Patient has history of SOB/ALMAGUER: Yes, see HPI Patient has syncope/presyncope: No Presentation associated with endocarditis/bacteremia: No ALLERGIES: Tylenol [acetaminophen] PAST MEDICAL HISTORY: Past Medical History: Diagnosis Date Anemia of [...] (HCC) 10/23/2014 ICD-10 update of inactive term PAST SURGICAL HISTORY: Past Surgical History: Procedure Laterality Date BRONCHOSCOPY, DIAGNOSTIC N/A 06/12/2020 BRONCHOSCOPY DIAGNOSTIC WITH OR WITHOUT WASHING performed by Warren Patel MD at ENDOSCOPY [facility] COLONOSCOPY THRU STOMA, W/BIOPSY 05/28/2010 andenomatous tissue--repeat in 3 months COLONOSCOPY THRU STOMA, W/BIOPSY 09/18/2010 adenomatous-repeat colonoscopy in 3-6 months COLONOSCOPY THRU STOMA, W/BIOPSY 04/09/2011 polyps x3 , path shows adenomatous tissue repeat in 1 years COLONOSCOPY, DIAGNOSTIC (RECTUM) 05/20/2016 adenomatous polyps, poor prep, diverticulosis, repeat 3 yrs/[facility] COLONOSCOPY, DIAGNOSTIC (RECTUM) 06/06/2019 hemorrhoids/diverticulosis sigmoid and descending colon/small AVM/biopsies show adenomatous polyps/recall 6-9 months/COLONOSCOPY FLEXIBLE PROXIMAL DIAGNOSTIC performed by Clemencia Marinelli MD atENDOSCOPY [facility] COLONOSCOPY, DIAGNOSTIC (RECTUM) 03/05/2022 benign adenomatous polyp, repeat 1 yr / COLONOSCOPY FLEXIBLE PROXIMAL DIAGNOSTIC performed by Clemencia Marinelli MD at ENDOSCOPY [facility] COLONOSCOPY, DIAGNOSTIC (RECTUM) 01/14/2023 hemorrhoids/diverticulosis/biopsies show hyperplastic polyps/recall 2 years/COLONOSCOPY FLEXIBLE PROXIMAL DIAGNOSTIC performed by Destiny Mojica DO at ENDOSCOPY [facility] DESTROY LUMBAR SACRAL NERVE IMAGING ADD'L 01/27/2023 DESTROY LUMBAR SACRAL NERVE IMAGING ADD'L performed by Pb Alexander DO at OR [facility] DESTROY LUMBAR SACRAL NERVE IMAGING SINGLE 01/27/2023 DESTROY LUMBAR SACRAL NERVE IMAGING SINGLE performed by Pb Alexander DO at OR [facility] EGD, FLEXIBLE, DIAGNOSTIC 01/14/2023 gsatric polyp/ESOPHAGOGASTRODUODENOSCOPY (EGD), FLEXIBLE, TRANSORAL, DIAGNOSTIC performed by Phong Mojica DO at ENDOSCOPY [facility] L-/S-SPINE PARAVERTEBRAL FACET INJ,1 LEVEL 11/25/2022 L-/S-SPINE PARAVERTEBRAL FACET INJ, 1 LEVEL performed by Pb Alexander DO at OR [facility] L-/S-SPINE PARAVERTEBRAL FACET INJ,1 LEVEL 01/06/2023 L-/S-SPINE PARAVERTEBRAL FACET INJ, 1 LEVEL performed by Pb Alexander DO at OR [facility] L-/S-SPINE PARAVERTEBRL FACET INJ,2 LEVELS 11/25/2022 L-/S-SPINE PARAVERTEBRAL FACET INJ, 2 LEVELS performed by Pb Alexander DO at OR [facility] L-/S-SPINE PARAVERTEBRL FACET INJ,2 LEVELS 01/06/2023 L-/S-SPINE PARAVERTEBRAL FACET INJ, 2 LEVELS performed by Pb Alexander DO at OR [facility] MISCELLANEOUS ORDER ([facility] ONLY) 1998 henria repair OTHER (INFORMATION) pilonidal cyst removal OTHER (INFORMATION) repair of bilateral shoulder for bone spur and repair of torn muscles right shoulder REMOVE CATARACT, INSERT LENS PROSTH Left 06/01/2017 left EXTRACAPSULAR CATARACT REMOVAL WITH INTRAOCULAR LENS performed by Nikhil Bolton MD at OR [facility] REMOVE CATARACT, INSERT LENS PROSTH Right 06/08/2017 right EXTRACAPSULAR CATARACT REMOVAL WITH INTRAOCULAR LENS performed by Nikhil Bolton MD at OR [facility] Hx of vein harvest or stripping?: no SOCIAL HISTORY: Drug Use: never Social History Tobacco Use Smoking status: Every Day Packs/day: 1.50 Years: 69.00 Additional pack years: 0.00 Total pack years: 103.50 Types: Cigarettes Smokeless tobacco: Never Tobacco comments: started age 7 Vaping Use Vaping Use: Never used Substance Use Topics Alcohol use: No Drug use: No FAMILY HISTORY: Family History Problem Relation Age of Onset Cancer Mother colon Gastro-intestinal disorder Sister crohn's No Known Problems Father Heart disease Brother Heart disease Brother Family History of Premature CAD (Less than 55 year old male relative or less than 65 year old female relatives with history of angina, acute MT, sudden cardiac without obvious cause, CABG surgery, or PCI.): no REVIEW OF SYSTEMS: Constitutional: denies weight loss, denies fever Ear, nose and throat: denies decreased hearing, denies trouble swallowing Dental: top plates, bottom plates Cardiac: see HPI Respiratory: see HPI Gastrointestinal: denies vomiting, denies abdominal pain, denies constipation Neurologic: denies syncope Hematologic / Lymphatic: denies blood clotting problems, last dose of Eliquis was Wed Immunologic: denies trouble fighting infections CARDIOTHORACIC COMPLETE PHYSICAL EXAM: Most Recent Vital Signs: BP: 128 mmHg/73 mmHg (04/16/23 1227) Pulse: 78 (04/16/23 1227) Temp: 36.89 C (04/16/23 1126) Resp: 20 (04/16/23 1227) SpO2: 89 % (04/16/23 122) PHYSICAL EXAM: General: no acute distress Teeth: dentures Neck: supple, no adenopathy, no bruits, thyroid normal size, non-tender, without nodularity, normaljugular venous pulse, no hepatojugular reflux Chest: normal shape and normal respiratory effort Lungs: lungs clear to auscultation Cardiac Exam: regular rate & rhythm Systolic murmur Pulses: The following pulses are normal: carotids and femorals Abdomen: abdomen soft, non-tender, no abnormal masses, and no hepatosplenomegaly Extremities: mild b/l edema. Venous statis dermatitis Veins GSV appears adequate bilaterally LABS/STUDIES: TTE report (07/30/2022) Interpretation Summary The qualitative LV ejection fraction is 65-69% (normal). The left ventricular cavity size is normal. The LV wall thickness is mildly increased (concentric). The left ventricular wall motion is normal. The left ventricular diastolic function is mildly abnormal (grade I). Moderate aortic valve stenosis. Nuclear stress test () Interpretation Summary This study has what is deemed to be a "significant abnormality" consistent with ACT 112. See additional documentation regarding notification of patient and ordering provider. Gated SPECT imaging reveals normal myocardial thickening and wall motion. The left ventricular ejection fraction was calculated to be 56%. Overall this pharmacologic nuclear stress test reveals a moderate amount of ischemia in the inferior and inferior basilar myocardium. These findings are most consistent with a right coronary or left circumflex arteries. This study has what is deemed to be a "significant abnormality" consistent with ACT 112. See additional documentation regarding notification of patient and ordering provider. Cardiac catheterization report (05/08/2005) Cardiac cath 04/16/23: Coronary disease - hemodynamically significant RCA is known 100% RESIDENT MANAGER with L-R collaterals via LAD LCX is known 100% RESIDENT MANAGER with minimal collaterals LMCA has critical stenosis and is severely aneurysmal Right radial access s/p radial band Society of Thoracic Surgeons (STS) Risk Score: STS site Isolated CABG Perioperative Outcome Estimate % Operative Mortality 11.2% Morbidity & Mortality 24.9% Stroke 3.25% Renal Failure 7.14% Reoperation 3.44% Prolonged Ventilation 17.7% Deep Sternal Wound Infection 0.263% Long Hospital Stay (>14 days) 26.6% Short Hospital Stay (<6 days)* 9.8% IMPRESSION: 77 year old male who presents with new LMCA disease and RESIDENT MANAGER of RCA and Lcx. His echo from July revealed normal EF with moderate . He has a pmhx for SVT/PAF on eliquis, COPD, YISSEL on BI-PAP, NIDDM2 (HbA1c 6%), CKD3a. PAD (50% stenosis of R common iliac and 100% occlusion of R common femoral artery), AAA (4cm, 12/31/2022). Hx of CVA (2011, Lung adenocarcinoma s/p radiation therapy. Patient was sent to [facility] and xray revealed pulmonary edema. He was diuresed and transferred to [facility] for further workup. His last dose of Eliquis was on Wednesday evening. PLAN: -will review case with Dr. Hayden. Per cardiology's note does not have PCI options -pre-op studies ordered -please continue beta levy -please hold ACEi and Eliquis Marly Jones PA-C Associated attestation - Warren Hayden MD - 04/16/2023 5:30 PM EST I have reviewed the advanced practitioner documentation and agree. I saw and evaluated the patient on date of service referenced in note and have performed the following medically appropriate historyand/or exam: this is a 77 yo man who developed sudden onset chest pain on Wednesday associated withsevere dyspnea. Went to [facility] ED and found to have NSTEMI. 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 He cannot walk across the room without stopping to rest due to dyspnea. He smokes over 1 pack per day. He wears CPAP for sleep apnea but not on oxygen during the day. He has known RESIDENT MANAGER of RCA and LCX from cath in 2005. Today, cath shows critical left main stenosis with RCA and LCx filling via collaterals. TTE demonstrated an EF in the 30s. He also has a history of lung cancer in 2020, treated with radiation to RLL. CT chest last done 07/2022, which I reviewed- it shows scarring in the RLL, multiple nodules, some of which are chronic, and a porcelainaorta. He is on eliquis for atrial fibrillation, last dose Wednesday per chart. IMPRESSION Pelon has severe left main stenosis with reduced EF and NSTEMI. I discussed his cath findings withDr. Neumann and there is no PCI option due to aneurysmal disease of left main. Our remaining options are medical therapy or surgical revascularization. 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 We discussed these options (Pelon, his , and his friend and I) in detail. I estimated his surgical risk of major complications to be in the 40-50%, mostly driven by severe lung disease and porcelain aorta, andmortality rate of 10-20%. The other option is medical therapy, which probably has a mortality risk of 30- 40% in the short term (months). After careful consideration of the above, he expressed that he is not willing to have surgery and prefers to be treated with medicine. He says his quality of life wasn't very good since he retired due to his breathing and orthopedic issues, and this is driving his decision, in addition to surgical risk. documented in this encounter Nursing Notes * Coni Jerez RN - 04/16/2023 3:27 PM EST Pt transferred to 854 with CRS nurses. Bedside report given. * Miladis Mukherjee BSN - 04/16/2023 12:36 PM EST IP TO CARDIAC INVASIVE LABS HANDOFF COMMUNICATION NOTE [address] [address] Name: Pelon Don AGE: [age] year old Location: CATH/Cath Date: 04/16/2023 Attention to: 1215 Report from: OFE Woo Patient arriving via: Bed Time of Call: 12:36 PM Phone Ext.: [phone] Reason for SBAR handoff: Procedure/Diagnostic/Treatment Patient able to sign Consent: No Female 11-55 Test Resulted if Ordered: Does not meet criteria. Emotional/Personal Anxiety? NONE Allergies: Contrast Dye Allergy: no Dye Allergy Prep Given: no Tylenol [acetaminophen] PMH: Past Medical History: Diagnosis Date Anemia of [...] (HCC) 10/23/2014 ICD-10 update of inactive term PSH: Past Surgical History: Procedure Laterality Date BRONCHOSCOPY, DIAGNOSTIC N/A 06/12/2020 BRONCHOSCOPY DIAGNOSTIC WITH OR WITHOUT WASHING performed by Warren Patel MD at ENDOSCOPY [facility] COLONOSCOPY THRU STOMA, W/BIOPSY 05/28/2010 andenomatous tissue--repeat in 3 months COLONOSCOPY THRU STOMA, W/BIOPSY 09/18/2010 adenomatous-repeat colonoscopy in 3-6 months COLONOSCOPY THRU STOMA, W/BIOPSY 04/09/2011 polyps x3 , path shows adenomatous tissue repeat in 1 years COLONOSCOPY, DIAGNOSTIC (RECTUM) 05/20/2016 adenomatous polyps, poor prep, diverticulosis, repeat 3 yrs/[facility] COLONOSCOPY, DIAGNOSTIC (RECTUM) 06/06/2019 hemorrhoids/diverticulosis sigmoid and descending colon/small AVM/biopsies show adenomatous polyps/recall 6-9 months/COLONOSCOPY FLEXIBLE PROXIMAL DIAGNOSTIC performed by Clemencia Marinelli MD atENDOSCOPY [facility] COLONOSCOPY, DIAGNOSTIC (RECTUM) 03/05/2022 benign adenomatous polyp, repeat 1 yr / COLONOSCOPY FLEXIBLE PROXIMAL DIAGNOSTIC performed by Clemencia Marinelli MD at ENDOSCOPY [facility] COLONOSCOPY, DIAGNOSTIC (RECTUM) 01/14/2023 hemorrhoids/diverticulosis/biopsies show hyperplastic polyps/recall 2 years/COLONOSCOPY FLEXIBLE PROXIMAL DIAGNOSTIC performed by Destiny Mojica DO at ENDOSCOPY [facility] DESTROY LUMBAR SACRAL NERVE IMAGING ADD'L 01/27/2023 DESTROY LUMBAR SACRAL NERVE IMAGING ADD'L performed by Pb Alexander DO at [facility] DESTROY LUMBAR SACRAL NERVE IMAGING SINGLE 01/27/2023 DESTROY LUMBAR SACRAL NERVE IMAGING SINGLE performed by Pb Alexander DO at OR [facility] EGD, FLEXIBLE, DIAGNOSTIC 01/14/2023 gsatric polyp/ESOPHAGOGASTRODUODENOSCOPY (EGD), FLEXIBLE, TRANSORAL, DIAGNOSTIC performed by Phong Mojica DO at ENDOSCOPY [facility] L-/S-SPINE PARAVERTEBRAL FACET INJ,1 LEVEL 11/25/2022 L-/S-SPINE PARAVERTEBRAL FACET INJ, 1 LEVEL performed by Pb Alexander DO at [facility] L-/S-SPINE PARAVERTEBRAL FACET INJ,1 LEVEL 01/06/2023 L-/S-SPINE PARAVERTEBRAL FACET INJ, 1 LEVEL performed by Pb Alexander DO at OR [facility] L-/S-SPINE PARAVERTEBRL FACET INJ,2 LEVELS 11/25/2022 L-/S-SPINE PARAVERTEBRAL FACET INJ, 2 LEVELS performed by Pb Alexander DO at OR [facility] L-/S-SPINE PARAVERTEBRL FACET INJ,2 LEVELS 01/06/2023 L-/S-SPINE PARAVERTEBRAL FACET INJ, 2 LEVELS performed by Pb Alexander DO at OR [facility] MISCELLANEOUS ORDER ([facility] ONLY) 1998 henria repair OTHER (INFORMATION) pilonidal cyst removal OTHER (INFORMATION) repair of bilateral shoulder for bone spur and repair of torn muscles right shoulder REMOVE CATARACT, INSERT LENS PROSTH Left 06/01/2017 left EXTRACAPSULAR CATARACT REMOVAL WITH INTRAOCULAR LENS performed by Nikhil Bolton MD at OR [facility] REMOVE CATARACT, INSERT LENS PROSTH Right 06/08/2017 right EXTRACAPSULAR CATARACT REMOVAL WITH INTRAOCULAR LENS performed by Nikhil Bolton MD at OR [facility] Isolation: Situation/Background Admission Date: 04/15/2023 Patient Service: Cardiology Med B Attending: Benny Moran MD Level of Care: Med Surg [3] Assessment Vital Signs: BP: 128/73 (04/16/23 1227) Temp: 36.9 C (98.4 F) (04/16/23 1126) Pulse: 78 (04/16/23 1227) Resp: 20 (04/16/23 1227) SpO2: 89 % (04/16/23 1227) O2 flow rate: 0 L/MIN (04/16/23 1126) Glucose (Bedside): 135 (04/16/23 1131) Lines: Peripheral Line Left Arm 18 Gauge (Active) Status Fluids infusing 04/16/23 1000 Tubing Changed N/A 04/16/23 1000 Phlebitis Scale 0 04/16/23 1000 Infiltration Scale 0 04/16/23 1000 Site Description (Other) Without redness, swelling or drainage 04/16/23 1000 Site Intervention None required 04/16/23 1000 Dressing Assessment Dressing clean, dry, and intact 04/16/23 1000 Dressing Intervention Changed 04/16/23 1000 Number of days: 2 Peripheral Line Left;Lower 22 Gauge (Active) Status Capped/Locked;Flushes easily 04/16/23 1229 Tubing Changed N/A 04/16/23 1229 Phlebitis Scale 0 04/16/23 1229 Infiltration Scale 0 04/16/23 1229 Site Description (Other) Without redness, swelling or drainage 04/16/231228 Site Intervention None required 04/16/231228 Dressing Assessment Dressing clean, dry, and intact 04/16/231228 Dressing Intervention None required 04/16/231228 Number of days: 0 Labs: Please see Lab Flowsheet for lab values. Lab Comments: NPO Diet: Orders Placed This Encounter Procedures NPO Except Meds NPO: NPO Since (Date): 04/15/23 (04/16/231224) NPO Since (Time): 173 (04/16/231224) Additional Diet Information: NPO since Midnight Intake and Output: Intake/Output Summary (Last 24 hours) at 04/16/2023 1236 Last data filed at 04/16/2023 1125 Gross per 24 hour Intake -- Output 1100 ml Net -1100 ml Belongings Remaining with Patient: NONE Glasses/Contacts: Not Applicable (04/16/231224) Dentures: Upper;Lower (04/16/231224) Hearing Aid: None (04/16/231224) What were AM meds taken with: Sip of water Time of last pain medication: NONE Time of last antibiotic: NONE Antiplatelets: Anticoags: Anticoagulant: Yes (04/16/231224) Anticoagulant last dose taken - Date:: 04/16/23 (04/16/231224) Anticoagulant last dose taken - Time:: 1225 (04/16/231224) Neurological: Speech: Clear (04/15/23 2131) Level of Consciousness: Alert (04/16/231227) RUE Motor Strength: 5-Active movement with full resistance (04/16/23 122) RLE Motor Strength: 5-Active movement with full resistance (04/16/23 122) LUE Motor Strength: 5-Active movement with full resistance (04/16/231227) LLE Motor Strength: 5-Active movement with full resistance (04/16/231227) Coma Score: 15 (04/16/231227) Respiratory: Respiratory WNL: X - Exceptions to WNL as documented below (04/16/23 07) Cough: Non-Productive (04/16/23 0744) Depth/Rhythm: Regular (04/16/23 0744) Dyspnea Occurance: With Exertion (04/16/23 07) Effort: Labored (04/16/23743) Effort Characteristics: Abdominal Muscle Use (04/16/23743) Oxygen therapy/ Mechanical vent O2 flow rate: 0 L/MIN (04/16/23 1126) Supplemental O2 Delivery: Room Air, None (04/16/23 1227) NIV/CPAP Mask/Prongs: Mask (04/16/23 0050) O2 Device Skin Integrity : Skin unaffected (04/16/2349) Cardiac: Cardiovascular WNL: X - Exceptions to WNL as documented below (04/15/232130) Heart Sounds: Murmur (04/15/232130) Rhythm: 1 degree AV Block (04/15/232305) SD interval: 0.28 seconds (04/15/232305) QRS: 0.07 seconds (04/15/232305) Extremities: +Sensation;Right;Left;Upper;Lower (04/15/232130) Pulses Right: Dorsalis Pedis + (04/15/232130) Pulses Left: Dorsalis Pedis + (04/15/232130) Edema: Yes (04/15/232130) Edema Location: Lower extremities;Both (04/15/232130) Edema Assessment: +1 - Description (04/15/232130) Capillary Refill: 3 sec (04/15/232130) GI: GI WNL: WNL - within normal limits (04/15/232130) Abdomen: Rounded (04/15/232130) Bowel Sounds: All Quadrants;Present (04/15/232130) : Integumentary: Integumentary WNL: X - Exceptions to WNL as documented below (04/15/232130) Skin Description: Edematous (04/15/232130) Skin Color: Armando (BLE) (04/15/232130) Skin Lesion: Other - Describe (BLE scabs) (04/15/232130) Additional Assessment Information: Pleasant, independent 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 Carrie Vogt RN - 04/16/2023 1:43 AM EST .Dual Licensed Skin Assessment completed by Carrie RN and Myra RN. The patient is/has a N/A Skin Breakdown (includes non blanchable erythema): Yes. Wound Type: Other, location BLE scabs, scab on LUQ back Wound Ostomy Nurse Notified: No - wound ostomy not needed at this time Nursing interventions: monitor documented in this encounter Miscellaneous Notes * Ancillary Progress Note - Sandee Ball RN - 04/18/2023 2:51 PM EST CARE MANAGEMENT - ADULT DISCHARGE NOTE [facility]-[address] [address] Name: Pelon Don Location: [facility] H854/[id number] Date: 04/18/2023 Time: 2:52 PM The following coordination of care and discharge plan has been coordinated with the care team, patient, family and/or caregiver according to the patients needs and preferences. Discharge Discharge Second Notice Important Message from Medicare delivered: Not Applicable (04/18/231450) Was Caregiver/Family/Facility contacted regarding discharge: Yes (Simultaneous filing. User may nothave seen previous data.) (04/18/231450) Discharge Transportation: Family/Friends drive (04/18/231450) Date of scheduled discharge transportation: 04/18/23 (04/18/231450) Patient declined post-hospital transition of care recommendation: N/A (04/18/231450) Final Discharge Plan (Complete only at time of Discharge): Home - Self Care (04/18/231450) Narrative: Pt discharging to home with self-care. Pt's family is providing transportation. Pt liveswith spouse who is able to help care for pt. No CM needs identified. Patient is agreeable to the above discharge plans. Patient has no further questions or concerns regarding plan of care or discharge. * Pt Handout (on AVS) - Darron Cornell RPh - 04/18/2023 8:39 AM EST Images from the original note were not included. [id number] Clopidogrel Oral Tablet Brands: Plavix Uses This medicine is used for the following purposes: prevent blood clots prevent stroke prevent heart attack Instructions This medicine may be taken with or without food. This medicine will work best if you take it at about the same time every day. Keep the medicine at room temperature. Avoid heat and direct light. It is important that you keep taking each dose of this medicine on time even if you are feeling well. If you forget to take a dose on time, take it as soon as you remember. If it is almost time for thenext dose, do not take the missed dose. Return to your normal schedule. Do not take 2 doses at one time. Drug interactions can change how medicines work or increase risk for side effects. Tell your healthcare providers about all medicines taken. Include prescription and [id number] medicines, vitamins, and herbal medicines. Speak with your doctor or pharmacist before starting or stopping any medicine. Cautions Tell your doctor and pharmacist if you ever had an allergic reaction to a medicine. Do not use the medication any more than instructed. Speak with your doctor before taking any medicine with aspirin. Contact your doctor if you notice a change in the amount or darkening of your urine. Tell the doctor or pharmacist if you are , planning to be , or . Call your doctor right away if you notice any unusual bleeding or bruising. Do not share this medicine with anyone who has not been prescribed this medicine. Some patients have serious side effects from this medicine. Ask your pharmacist to show you the information from the Food and Drug Administration (FDA) and discuss it with you. Side Effects The following is a list of some common side effects from this medicine. Please speak with your doctor about what you should do if you experience these or other side effects. itching Call your doctor or get medical help right away if you notice any of these more serious side effects: loss of balance bleeding or bruising chest pain coughing up blood or vomit that looks like coffee grounds fever swelling in the neck or throat severe or persistent headache fast or irregular heart beats pale or blue skin, lips or fingernails bloody or dark, tarry stools symptoms of stroke (such as one-sided weakness, slurred speech, confusion) unusual or unexplained tiredness or weakness blood in urine yellowing of eyes or skin A few people may have an allergic reaction to this medicine. Symptoms can include difficulty breathing, skin rash, itching, swelling, or severe dizziness. If you notice any of these symptoms, seek medical help quickly. Extra Please speak with your doctor, nurse, or pharmacist if you have any questions about this medicine. [email or web address] IMPORTANT NOTE: This document tells you briefly how to take your medicine, but it does not tell youall there is to know about it. Your doctor or pharmacist may give you other documents about your medicine. Please talk to them if you have any questions. Always follow their advice. There is a more complete description of this medicine available in [place]. Scan this code on your smartphone or tablet or use the web address below. You can also ask your pharmacist for a printout. If you have any questions, please ask your pharmacist. The display and use of this drug information is subject to Terms of Use. Copyright(c) 2022 [employer]. 4663-4349 [employer]. All rights reserved. This information is not intended as a substitute for professional medical care. Always follow your healthcare professional's instructions. * Pt Handout (on AVS) - Darron Cornell RPh - 04/18/2023 8:39 AM EST Images from the original note were not included. Clopidogrel - Video To view the video go to this web address: [email or web address] Or, scan this QR code with your smart phone 2022 [employer] / [employer]. All Rights Reserved. * Care Plan - Josee Florez RN - 04/17/2023 9:57 PM EST Clinical Goal(s): patient will ambulate this shift (04/17/23 0700) Possible barriers to meeting goal(s)/advancing plan of care: pain, weakness Stability of the patient: Moderately stable - low risk of patient condition declining or worsening Summary regarding today's goal(s): Met: Recommendations: continue to encourage pt to maintain maximum level of mobility, educate pt on maintaining mobility * Communication - Warren Hayden MD - 04/17/2023 9:15 AM EST CARDIAC SURGERY I met with pelon today. He is feeling well. No chest pain overnight. Breathing is improved. He reiterated his desire for medical management rather than surgical revascularization. at bedside, in agreement. * Progress Notes - Non-Billable - Prateek Chacko MD - 04/16/2023 8:28 PM EST Post-Procedure Check Subjective: Patient doing well post-procedure. Objective: BP 130/72 | Pulse 69 | Temp 37.2 C (99 F) | Resp 22 | Ht 1.727 m (5' 8") | Wt 90.3 kg (199 lb 1.6 oz) | SpO2 100% | BMI 30.27 kg/m | BSA 2.08 m Constitutional: Conscious, alert, cooperative and in no immediate distress HEENT: NC/AT, Tongue: moist Chest: Good bilateral air entry, Clear to auscultation Heart: S1 S2 audible, rhythm, no murmurs, clicks or rubs Results: Coronary disease - hemodynamically significant RCA is known 100% RESIDENT MANAGER with L-R collaterals via LAD LCX is known 100% RESIDENT MANAGER with minimal collaterals LMCA has critical stenosis and is severely aneurysmal Right radial access s/p radial band A/P: Pelon Don is a 77 year old male with hx of CAD w/ 100% occlusion of RCA and Lcx with 30% LADstenosis providing collaterals, SVT/PAF on eliquis, COPD, not on baseline supplemental O2, Active tobacco use, YISSEL on B-PAP, NIDDM2 (HbA1c 6%), DLD, CKD3a, PAD (50% stenosis of R common iliac and 100% occlusion of R common femoral artery), AAA (4cm, 12/31/2022), Hx of CVA (2011), Lung adenocarcinomas/p radiation therapy, Chronic anemia, MDD/NAN who underwent Coronary angiography for NSTEMI. - CTVS consult - No PCI options available for this disease. - Patient wants to go forward with medical management. - rest of the management per primary team. * Ancillary Progress Note - Herbert Henry RVT - 04/16/2023 4:11 PM EST PROCEDURE - Vascular Lab [address] [address] Name: Pelon Don Location: [address] Date: 04/16/2023 Time: 4:11 PM FINAL PHYSICIAN REPORT TO FOLLOW. PROCEDURE: Bilateral Carotid Artery Duplex - Completed Bilateral Saphenous vein mapped and marked TECH NAME: Herbert Henry RVT * Ancillary Progress Note - Lázaro Miranda RT - 04/16/2023 2:51 PM EST [address] [address] Ancillary Progress Note Patient Name: Pelon Don Date: 04/16/2023 Patient will be escorted to Cardiac Recovery Suite. We performed a diagnostic cardiac catheterization procedure on this patient. The right radial artery was used for access with a 6 Serbian sheath. A Radial Band was applied at 16 mL. of air to close the site. There is no hematoma and no ooze from the cath site noted. No sterile dressing applied to site. Radial band applied. Distal pulses were palpated and instructions to patient were given. There were no complications during the case. Please seethe MAR for the medications that were given. See Cath Procedure Log for patient vitals during the case. * Care Plan - Carrie Danielson RN - 04/16/2023 1:59 AM EST Clinical Goal(s): pt will report chest pain (04/15/232130) Possible barriers to meeting goal(s)/advancing plan of care: NA Stability of the patient: Moderately stable - low risk of patient condition declining or worsening Summary regarding today's goal(s): Met: pt able to report chest pain Recommendations: continue to assess pt for chest pain * Ancillary Progress Note - Marilyn Burdick RRT - 04/16/2023 1:10 AM EST PATIENT DRIVEN PROTOCOL - Respiratory Care Services [address] [address] Name: Pelon Don Location: [facility] H854/A Date: 04/16/2023 Time: 1:11 AM Patient Driven Protocol Summary: Initial evaluation performed. This Treatment Plan and medications will be reviewed by the Primary Care Team for any contraindications. Respiratory Care Treatment Plan Pulmonary Volume Expansion Therapy: Incentive Spirometry PRN to prevent or treat alveolar consolidation and atelectasis. . Secretion Management Treatment: Flutter TherapyPRN to enhance mobilization of secretions. . The patient will be re-evaluated: No re-evaluation needed. Indications for treatment met. The Triage Level is: (Assessment Score = 6 -10) Level 4. Triage Level Definitions: Level 1 Severe Respiratory/Airway Compromise Level 2 Moderate Respiratory/Airway Compromise or high risk for pulmonary complications Level 3 Mild Respiratory/Airway Compromise or moderate risk for pulmonary complications Level 4 Episodic Respiratory/Airway Compromise or low risk for pulmonary complications Level 5 No Respiratory/Airway Compromise Triage 1 Triage 2 Triage 3 Triage 4 Triage 5 greater than 20 16 - 20 11 - 15 6 - 10 0 - 5 Medical Record Assessment Clinical Findings Pulmonary Status: 4 - Severe or chronic with exacerbation, or 3 or more fractured ribs Surgical Status: 0 - No Surgical History Chest X-Ray: 1 - CXR Pending Assessment Score: 5 Patient Assessment Clinical Findings Respiratory Pattern: 1 - RR 21 - 25; Patient gets short of breath when hurrying on level ground or walking up a slight hill. Breath Sounds: 1 - Diminished unilaterally Cough Effectiveness: 1 - Strong productive Sputum Production: 1 - Less than 20 ml per day, chronic Level of Activity: 0 - Ambulatory O2 needed to keep SpO2 greater than or equal to 92%: 0 - Room Air Assessment Score: 4 Total Assessment Score: 9 Breath Sounds: Inspiratory and expiratory clear and diminished bilaterally.. Cough and Sputum: A loose cough produced small amount of thick clear/white sputum.. CXR: pending . Vital Signs: Resp: 20 (04/16/23 004) Pulse: 68 (04/16/2339) Temp: 36.7 C (98.1 F) (04/15/232344) BP: 118/57 (04/15/232344) SpO2: 93 % (04/16/2349) PFT: Minimal Predicted IC: 1.03 L. Inspiratory capacity: 2 L. Primary Service: Cardiology Med B. Admitting Diagnosis: NSTEMI (non-ST elevated myocardial infarction) (HCC) [I21.4] Pulmonary Diagnosis: COPD, YISSEL, and Active smoker (129 pack yr hx) . Prescriptions/Home Medications/Durable Medical Equipment: Spiriva and Advair home reg . documented in this encounter Plan of Treatment Upcoming Encounters Date Type Department Care Team (Late st Contact Info) Description 04/23/2023 11:00 AM EST Office Visit [address]iatry [address] [address] Bettye Herrmann DPM [address] [place], [place] [address] [address] 04/26/2023 11:30 AM EST Office Visit Orthopaedics [facility] [address] [facility] [place] [address] Zander Wilkins DO [address] [facility] [place] [address] 05/18/2023 1:00 PM EST Office Visit Gastroenterology, [facility] [address] [facility] [place] [address] Agnes Bowers CRNP [address] [place] [address] 05/31/2023 11:40 AM EST Office Visit Podiatry [facility] [address] [facility] [place] [address] Bettye Herrmann, DPLiat [address] [place] [address] [place] [address] 07/08/2023 10:00 AM EDT Imaging Radiology [facility] 1st [facility] [address] [facility] [place] [address] 07/13/2023 11:00 AM EDT Office Visit Radiation Oncology, [address] [place] [address] Shawna Johnson MD [address] [place] [address] [place] [address] 07/19/2023 11:40 AM EDT Office Visit Family Practice [facility] [address] [facility] [place] [address] Johnnie Newby MD [address] [facility] [place] [address] 09/16/2023 9:00 AM EDT Office Visit Cardiology, [facility] [address] [facility] [place] [address] Deisy Aguirre CRNP [address] [facility] [place] [address] Scheduled Orders Name Type Priority Associated Diagnoses Order Schedule STAPH AUREUS PCR Lab Routine One Time for 1 Occurrences starting 04/16/2023 until 04/16/2023 CV ECHO, KINA INTRAOPERATIVE Echocardiology Routine CAD (coronary artery disease) One Time for 1 Occurrences starting 04/16/2023 until 04/16/2023 CV ECHO, KINA INTRAOPERATIVE Echocardiology Routine CAD (coronary artery disease) One Time for 1 Occurrences starting 04/16/2023 until 04/16/2023 BLOOD GAS, ARTERIAL Lab STAT Perfo rm Now for 1 Occurrences starting 04/16/2023 until 04/16/2023 STAPH AUREUS PCR Lab Routine Perform Now for 1 Occurrences starting 04/16/2023 until 04/16/2023 URINALYSIS, REFLEX TO MICROSCOPIC Lab Routine Perform Now for 1 Occurrences starting 04/16/2023 until 04/16/2023 CULTURE, URINE, QUANTITATIVE Lab Routine Perform Now for 1 Occurrences starting 04/16/2023 until 04/16/2023 Scheduled Procedures Name Priority Associated Diagnoses Date/Ti [...] exists DISCUSS TOBACCO CESSATION (REFER TO SMARTSET #8132) 05/01/2023 05/01/2022, 02/13/2022 Diabetic Foot Exam 09/10/2023 09/09/2022, 1 , 11/12/2017, Additional history exists HbA1c 10/16/2023 04/16/2023, 12/19, 06/05/2022, Additional history exists GFR 10/17/2023 04/18/2023, 03/21, 04/16/2023, Additional history exists DTaP,Tdap,and Td Vaccines (2 - Td or Tdap) 01/06/2024 01/05/2014 O2 ASSESSMENT COMPLETED IN PAST YEAR FOR COPD 01/15/2024 01/14/2023 Albumin/Creatinine Ratio 02/05/2024 023, 01/15/2023, 06/04/2021, Additional history exists CKD PHOS USE SMARTSET 67408 04/15/202403/20, 06/05/2022, 06/03/2021, Additional history exists CKD HGB USE SMARTSET 74299 04/18/202404/18, 04/17/2023, 04/16/2023, Additional history exists COLONOSCOPY-EVERY [...] encounter Medical Devices Implanted Type Area [employer] Device Identifier Shelf Expiration Date Model / Serial / Lot Lens Intraoc 24.0 - [id number] - [id number] Implanted:Qty: 1 on 06/01/2017 by Nikhil Bolton MD at OR [facility] Left: Eye [employer] 07/17/2021 [id number] / [id number] / [id number] Lens Intraoc 24.0 - [id number] - [id number] Implanted:Qty: 1 on 06/08/2017 by Nikhil Bolton MD at OR [facility] Right: Eye [employer] 07/17/2021 [id number] / [id number] / [id number] documented as of this encounter Procedures Procedure Name Priority Date/Time Associated Diagnosis Comments GLUCOSE METER, POINT OF CARE MARCIANO 04/18/2023 11:14 AM EST GLUCOSE METER, POINT OF CARE MARCIANO 04/18/2023 7:17 AM EST BASIC METABOLIC PANEL Routine 04/18/2023 5:48 AM EST PT INR Routine 04/18/2023 5:48 AM EST CBC Routine 04/18/2023 5:48 AM EST GLUCOSE METER, POINT OF CARE MARCIANO 04/17/2023 9:06 PM EST GLUCOSE METER, POINT OF CARE MARCIANO 04/17/2023 4:00 PM EST ECHO, COMPLETE (2D), TRANS-THORACIC Routine 04/17/2023 12:36 PM EST Chest pain, unspecified type GLUCOSE METER, POINT OF CARE MARCIANO 04/17/2023 12:05 PM EST APTT STAT 04/17/2023 7:42 AM EST GLUCOSE METER, POINT OF CARE MARCIANO 04/17/2023 7:05 AM EST BASIC METABOLIC PANEL Routine 04/17/2023 6:29 AM EST PT INR Routine 04/17/2023 6:29 AM EST CBC Routine 04/17/2023 6:29 AM EST GLUCOSE METER, POINT OF CARE MARCIANO 04/16/2023 9:18 PM EST BASIC METABOLIC PANEL Routine 04/16/2023 8:56 PM EST GLUCOSE METER, POINT OF CARE MARCIANO 04/16/2023 5:55 PM EST VASC DUPLEX CAROTID BILAT Routine 04/16/2023 4:12 PM EST VASC VEIN MAP BYPASS GRAFT PREOP EVAL Routine 04/16/2023 4:11 PM EST ANEMIA REFLEX CHEMISTRY HOLD Routine 04/16/2023 3:45 PM EST ANEMIA CBC Routine 04/16/2023 3:45 PM EST DIFFERENTIAL, AUTOMATED Routine 04/16/2023 3:45 PM EST DIFFERENTIAL, AUTOMATED Routine 04/16/2023 3:45 PM EST RETICULOCYTE PANEL Routine 04/16/2023 3: 45 PM EST HEPATIC FUNCTION PANEL Routine 3:45 PM EST PT INR STAT 04/16/2023 3:45 PM EST TSH Routine 04/16/2023 3:45 PM EST ABO/RH STAT 04/16/2023 3:44 PM EST TYPE AND SCREEN Routine 04/16/2023 3:44 PM EST PREPARE PACKED RED BLOOD CELLS Routine 04/16/2023 3:20 PM EST TROPONIN T, HIGH SENSITIVITY Routine 04/16/2023 11:53 AM EST IRON SCREEN, INCLUDING TIBC Add-on 04/16/2023 11:53 AM EST GLUCOSE METER, POINT OF CARE MARCIANO 04/16/2023 11:30 AM EST TROPONIN T, HIGH SENSITIVITY Routine 04/16/2023 5:50 AM EST HEMOGLOBIN A1C Routine 04/16/2023 5:50 AM EST BASIC METABOLIC PANEL Routine 04/16/2023 5:50 AM EST PT INR Routine 04/16/2023 5:50 AM EST APTT Routine 04/16/2023 5:50 AM EST CBC Routine 04/16/2023 5:50 AM EST LIPID PANEL WITHOUT DIRECT LDL Routine 04/16/2023 5:50 AM EST GLUCOSE METER, POINT OF CARE MARCIANO 04/16/2023 5:35 AM EST RESPIRATORY PATHOGEN PANEL, PCR STAT 04/16/2023 12:42 AM EST GLUCOSE METER, POINT OF CARE MARCIANO 04/16/2023 12:25 AM EST TROPONIN T, HIGH SENSITIVITY Routine 04/15/2023 10:58 PM EST BNP (NT-PROBNP) STAT 04/15/2023 10:58 PM EST COMPREHENSIVE METABOLIC PANEL Routine 04/15/2023 10:58 PM EST HEPARIN, UNFRACTIONATED STAT 04/15/2023 10:58 PM EST FOLIC ACID Add-on 04/15/2023 10:58 PM EST IRON SCREEN, INCLUDING TIBC Add-on 04/15/2023 10:58 PM EST PT INR STAT 04/15/2023 10:58 PM EST PHOSPHORUS Routine 04/15/2023 10:58 PM EST APTT STAT 04/15/2023 10:58 PM EST CBC STAT 04/15/2023 10:58 PM EST MAGNESIUM Routine 04/15/2023 10:58 PM EST FERRITIN Add-on 04/15/2023 10:58 PM EST VITAMIN B12 Add-on 04/15/2023 10:58 PM EST XR CHEST 1 VIEW Routine 04/15/2023 10:31 PM EST HC ECG TRACING ONLY Routine 04/15/2023 9 :26 PM EST Chest pain documented in this encounter Results * GLUCOSE METER, POINT OF CARE (04/18/2023 11:14 AM EST) Glucose Meter 113 70 - 120 mg/dL 04/18/2023 5:37 PM EST [employer] Blood Whole blood specimen / Unknown 04/18/2023 11:14 AM EST 04/18/2023 5:37 PM EST Benny Moran MD LAB POINT OF CARE TE ST DOCKED DEVICE UNSOLICITED RESULTS [facility] [address] [place] [address] * GLUCOSE METER, POINT OF CARE (04/18/2023 7:17 AM EST) Glucose Meter 105 70 - 120 mg/dL 04/18/2023 7:58 AM EST [employer] [employer] Blood Whole blood specimen / Unknown 04/18/2023 7:17 AM EST 04/18/2023 7:58 AM EST Benny Moran MD LAB POINT OF CARE TE ST DOCKED DEVICE UNSOLICITED RESULTS [facility] [address] [place] [address] * PT INR (04/18/2023 5:48 AM EST) Prothrombin Time 14.5 11.6 - 15.2 seconds 04/18/2023 6:25 AM EST [facility] INR 1.1 0.8 - 1.2 04/18/2023 6:25 AM EST [facility] Blood Venous blood specimen / Unknown Venipuncture / Unknown 04/18/2023 5:48 AM EST 04/18/2023 5:58 AM EST Narrative [facility] - 04/18/2023 6:25 AM EST Warfarin Therapy INR: 2.0-3.0 conventional anticoagulation INR: 2.5-3.5 high intensity anticoagulation Shoshana Paul MD LAB BLOOD ORDERABLES Performing Organization Address City/[facility]/ZIP Co de Phone Number [facility] [address] [place] [address] * (ABNORMAL) BASIC METABOLIC PANEL (04/18/2023 5:48 AM EST) BUN 31(H) 6 - 20 mg/dL 04/18/2023 6:29 AM EST [facility] Creatinine 1.7(H) 0.6 - 1.2 mg/dL 04/18/2023 6:29 AM EST [facility] Estimated Glomerular Filtration Rate 40(L) >=60 mL/min 04/18/2023 6:29 AM EST [facility] Comment:eGFR is calculated b ased on the CKD-EPI 2020 equation Sodium 138 135 - 146 mmol/L 04/18/2023 6:29 AM EST [facility] Potassium 4.0 3.5 - 5.1 mmol/L 04/18/2023 6:29 AM EST [facility] Chloride 103 98 - 107 mmol/L 04/18/2023 6:29 AM EST [facility] CO2 24 22 - 32 mmol/L 04/18/2023 6:29 AM EST [facility] Anion Gap 11 7 - 15 mmol/L 04/18/2023 6:29 AM EST [facility] Glucose 103 70 - 120 mg/dL 04/18/2023 6:29 AM EST [facility] Calcium 8.9 8.4 - 10.2 mg/dL 04/18/2023 6:29 AM EST [facility] Blood Venous blood specimen / Unknown Venipuncture / Unknown 04/18/2023 5:48 AM EST 04/18/2023 5:58 AM EST Shoshana Paul MD LAB BLOOD ORDERABLES LABORATORY [facility] [address] [place] [address] * (ABNORMAL) CBC (04/18/2023 5:48 AM EST) WBC 6.82 4.00 - 10.80 K/uL 04/18/2023 6:12 AM EST [facility] RBC 3.30 4.50 - 5.25 M/uL 04/18/2023 6:12 AM EST [facility] HGB 8.5(L) 14.0 - 16.8 g/dL 04/18/2023 6:12 AM EST [facility] HCT 28.9(L) 40.0 - 48.4 % 04/18/2023 6:12 AM EST [facility] MCV 87.6 82.0 - 99.5 fL 04/18/2023 6:12 AM EST [facility] MCH 25.8 27.0 - 34.0 pg 04/18/2023 6:12 AM EST [facility] MCHC 29.4 32.0 - 36.0 g/dL 04/18/2023 6:12 AM EST [facility] RDW 18.1 11.5 - 15.5 % 04/18/2023 6:12 AM EST [facility] PLT 239 140 - 400 K/uL 04/18/2023 6:12 AM EST [facility] MPV 9.7 6.6 - 11.1 fL 04/18/2023 6:12 AM EST [facility] nRBCs 0 <=0 /100 WBCs 04/18/2023 6:12 AM EST LABORATORY GM Blood Venous blood specimen / Unknown Venipuncture / Unknown 04/18/2023 5:48 AM EST 04/18/2023 5:58 AM EST Shoshana Paul MD LAB BLOOD ORDERABLES LABORATORY [facility] [address] [place] [address] * GLUCOSE METER, POINT OF CARE (04/17/2023 9:06 PM EST) Glucose Meter 110 70 - 120 mg/dL 04/17/2023 9:09 PM EST Red [employer]oon Blood Whole blood specimen / Unknown 04/17/2023 9:06 PM EST 04/17/2023 9:09 PM EST Benny Moran MD LAB POINT OF CARE TE ST DOCKED DEVICE UNSOLICITED RESULTS [facility] [address] [place] [address] * (ABNORMAL) GLUCOSE METER, POINT OF CARE (04/17/2023 4:00 PM EST) Glucose Meter 157(H) 70 - 120 mg/dL 04/17/2023 4:24 PM EST Red LaGoon Blood Whole blood specimen / Unknown 04/17/2023 4:00 PM EST 04/17/2023 4:24 PM EST Benny Moran MD LAB POINT OF CARE TE ST DOCKED DEVICE UNSOLICITED RESULTS [facility] [address] [place] [address] * ECHO, COMPLETE (2D), TRANS-THORACIC (04/17/2023 12:36 PM EST) LEFT VENTRICULAR EJECTION FRACTION 50 % [facility] CARDIOLOGY 04/17/2023 11:1 0 AM EST Renae Monsivais MD ECHOCARDIOLOGY [facility] CARDIOLOGY * GLUCOSE METER, POINT OF CARE (04/17/2023 12:05 PM EST) Glucose Meter 106 70 - 120 mg/dL 04/17/2023 8:21 PM EST Red LaGoon Blood Whole blood specimen / Unknown 04/17/2023 12:05 PM EST 04/17/2023 8:21 PM EST Benny Moran MD LAB POINT OF CARE TE ST DOCKED DEVICE UNSOLICITED RESULTS [facility] [address] [place] [address] * (ABNORMAL) APTT (04/17/2023 7:42 AM EST) aPTT 39(H) 21 - 38 seconds 04/17/2023 8:24 AM EST LABORATORY C Blood Venous blood specimen / Unknown Venipuncture / Unknown 04/17/2023 7:42 AM EST 04/17/2023 7:52 AM EST Narrative [facility]ORY [facility] - 04/17/2023 8:24 AM EST Anticoagulation may affect testing. Refer to [facility] Test Catalog for a list of effects. Shoshana Paul MD LAB BLOOD ORDERABLES Performing Organization Address City/[facility]/ZIP Co de Phone Number LABORATORY [facility] [address] [place] [address] * GLUCOSE METER, POINT OF CARE (04/17/2023 7:05 AM EST) Glucose Meter 94 70 - 120 mg/dL 04/17/2023 10:20 AM EST [facility] [employer] [facility] Blood Whole blood specimen / Unknown 04/17/2023 7:05 AM EST 04/17/2023 10:20 AM EST Benny Moran MD LAB POINT OF CARE TE ST DOCKED DEVICE UNSOLICITED RESULTS [facility] [address] [place] [address] * PT INR (04/17/2023 6:29 AM EST) Prothrombin Time 13.3 11.6 - 15.2 seconds 04/17/2023 6:45 AM EST [facility] INR 1.0 0.8 - 1.2 04/17/2023 6:45 AM EST [facility] Blood Venous blood specimen / Unknown Venipuncture / Unknown 04/17/2023 6:29 AM EST 04/17/2023 6:32 AM EST Narrative [facility] - 04/17/2023 6:45 AM EST Warfarin Therapy INR: 2.0-3.0 conventional anticoagulation INR: 2.5-3.5 high intensity anticoagulation Shoshana Paul MD LAB BLOOD ORDERABLES [facility] [address], [place] [id number] * (ABNORMAL) BASIC METABOLIC PANEL (04/17/2023 6:29 AM EST) BUN 30(H) 6 - 20 mg/dL 04/17/2023 6:58 AM EST [facility] Creatinine 1.7(H) 0.6 - 1.2 mg/dL 04/17/2023 6:58 AM EST [facility] Estimated Glomerular Filtration Rate 40(L) >=60 mL/min 04/17/2023 6:58 AM EST [facility] Comment:eGFR is calculated b ased on the CKD-EPI 2020 equation Sodium 141 135 - 146 mmol/L 04/17/2023 6:58 AM EST [facility] Potassium 4.1 3.5 - 5.1 mmol/L 04/17/2023 6:58 AM EST [facility] Chloride 103 98 - 107 mmol/L 04/17/2023 6:58 AM EST [facility] CO2 26 22 - 32 mmol/L 04/17/2023 6:58 AM EST [facility] Anion Gap 12 7 - 15 mmol/L 04/17/2023 6:58 AM EST [facility] Glucose 102 70 - 120 mg/dL 04/17/2023 6:58 AM EST [facility] Calcium 9.0 8.4 - 10.2 mg/dL 04/17/2023 6:58 AM EST [facility] Blood Venous blood specimen / Unknown Venipuncture / Unknown 04/17/2023 6:29 AM EST 04/17/2023 6:32 AM EST Shoshana Paul MD LAB BLOOD ORDERABLES [facility] [address] [place] [address] * (ABNORMAL) CBC (04/17/2023 6:29 AM EST) WBC 5.49 4.00 - 10.80 K/uL 04/17/2023 6:41 AM EST [facility] RBC 3.42 4.50 - 5.25 M/uL 04/17/2023 6:41 AM EST [facility] HGB 8.8(L) 14.0 - 16.8 g/dL 04/17/2023 6:41 AM EST [facility] HCT 29.8(L) 40.0 - 48.4 % 04/17/2023 6:41 AM EST [facility] MCV 87.1 82.0 - 99.5 fL 04/17/2023 6:41 AM EST [facility] MCH 25.7 27.0 - 34.0 pg 04/17/2023 6:41 AM EST [facility] MCHC 29.5 32.0 - 36.0 g/dL 04/17/2023 6:41 AM EST [facility] RDW 18.4 11.5 - 15.5 % 04/17/2023 6:41 AM EST [facility] PLT 227 140 - 400 K/uL 04/17/2023 6:41 AM EST [facility] MPV 8.9 6.6 - 11.1 fL 04/17/2023 6:41 AM EST [facility] nRBCs 0 <=0 /100 WBCs 04/17/2023 6:41 AM EST [facility] Blood Venous blood specimen / Unknown Venipuncture / Unknown 04/17/2023 6:29 AM EST 04/17/2023 6:32 AM EST Shoshana Paul MD LAB BLOOD ORDERABLES LABORATORY [facility] [address] [place] [address] * GLUCOSE METER, POINT OF CARE (04/16/2023 9:18 PM EST) Glucose Meter 109 70 - 120 mg/dL 04/16/2023 9:25 PM EST Red LaGoon Blood Whole blood specimen / Unknown 04/16/2023 9:18 PM EST 04/16/2023 9:25 PM EST Benny Moran MD LAB POINT OF CARE TE ST DOCKED DEVICE UNSOLICITED RESULTS [facility] [address] [place] [address] * (ABNORMAL) BASIC METABOLIC PANEL (04/16/2023 8:56 PM EST) BUN 29(H) 6 - 20 mg/dL 04/16/2023 9:26 PM EST [facility] Creatinine 1.6(H) 0.6 - 1.2 mg/dL 04/16/2023 9:26 PM EST [facility] Estimated Glomerular Filtration Rate 44(L) >=60 mL/min 04/16/2023 9:26 PM EST [facility] Comment:eGFR is calculated b ased on the CKD-EPI 2020 equation Sodium 139 135 - 146 mmol/L 04/16/2023 9:26 PM EST [facility] Potassium 4.7 3.5 - 5.1 mmol/L 04/16/2023 9:26 PM EST [facility] Chloride 102 98 - 107 mmol/L 04/16/2023 9:26 PM EST [facility] CO2 25 22 - 32 mmol/L 04/16/2023 9:26 PM EST [facility] Anion Gap 12 7 - 15 mmol/L 04/16/2023 9:26 PM EST [facility] Glucose 114 70 - 120 mg/dL 04/16/2023 9:26 PM EST [facility] Calcium 9.1 8.4 - 10.2 mg/dL 04/16/2023 9:26 PM EST [facility] Blood Venous blood specimen / Unknown Venipuncture / Unknown 04/16/2023 8:56 PM EST 04/16/2023 8:59 PM EST Renae Monsivais MD LAB BLOOD ORDERABL ES [facility] [address] [place] [address] * GLUCOSE METER, POINT OF CARE (04/16/2023 5:55 PM EST) Glucose Meter 108 70 - 120 mg/dL 04/16/2023 5:58 PM EST [facility] [employer] [facility] Blood Whole blood specimen / Unknown 04/16/2023 5:55 PM EST 04/16/2023 5:58 PM EST Benny Moran MD LAB POINT OF CARE TE ST DOCKED DEVICE UNSOLICITED RESULTS [facility] [address] [place] [address] * [facility] DUPLEX CAROTID BILAT (04/16/2023 4:12 PM EST) Anatomical Region Laterality Modality Neck, Vascular Ultrasound Narrative 04/16/2023 5:13 PM EST VASCULAR LAB RESULTS DATE OF EXAM: 04/16/23 PRESENTING CONDITIONS: pre op PHYSICIAN REPORT Carotid Artery Duplex Examination Immediately [...] at the carotid bifurcation. The plaque is echogenic and appears to have an irregular surface. Color Doppler imaging was performed for evaluation of the right carotid bifurcation. Spectral analysis of the right internal carotid artery demonstrates peak systolic velocities of 102 cm/sec. Maximum end diastolic velocities are 23 cm/sec.. Peak right common carotid velocity is 54 cm/sec. The right internal carotid to common carotid ratio is 1.9. The right external carotid artery has a peak velocity of 138 centimeters per second. Steele scale and color flow Doppler imaging was performed for the evaluation of the left carotid artery. Duplex examination of the left carotid artery identifies atherosclerotic plaque at the carotid bifurcation. The plaque is echogenic and appears to have an irregular surface. Color Doppler imaging was performed for the evaluation of the left carotid bifurcation. Spectral analysis of the left internal carotid artery demonstrates peak systolic velocities of 102 cm/sec. Maximum end diastolic velocities are 28 cm/sec. Peak left common carotid velocity is 52 cm/sec. The left internal carotid to common carotid ratio is 1.9. The left external carotid artery has a peak velocity of 102 centimeters per second. The right vertebral artery demonstrates antegrade flow. The left vertebral artery demonstrates antegrade flow. Impression: Right carotid artery duplex examination indicates evidence of less than 50% stenosis of the internal carotid artery. Left carotid artery duplex examination indicates evidence of less than 50% stenosis of the internal carotid artery. Marly SIMPSON * VASC VEIN MAP BYPASS GRAFT PREOP EVAL (04/16/2023 4:11 PM EST) Anatomical Region Laterality Modality Extremity, Vascular Ultrasound Narrative 04/16/2023 5:13 PM EST VASCULAR LAB RESULTS DATE OF EXAMINATION: 04/16/23 INDICATION: Pre op vein map LOWER EXTREMITY VENOUS DUPLEX FOR PREOP VEIN MAPPING Immediately before proceeding with the vascular lab procedure below, the identity of the patient, the correct exam and the correct procedural site were verified. Steele scale, color flow and spectral doppler were performed for this examination. Lower extremity great saphenous vein examination with duplex imaging was conducted for preoperative mapping prior to surgery. Right great saphenous vein is patent with normal venous flow with the following size measurements: Proximal thigh 3.6 mm Mid-thigh 3.7 mm Distal thigh 4.4 mm Right knee 3.7 mm Proximal calf 3.4 mm Mid-calf 2.9 mm Right ankle 2.8 mm Left great saphenous vein is patent with normal venous flow with the following size measurements: Proximal thigh 4.1 mm Mid-thigh 3.3 mm Distal thigh 4.7 mm Left knee 3.9 mm Proximal calf 2.9 mm Mid-calf 2.4 mm Left ankle 2.9 mm CONCLUSION: Patent right great saphenous vein with size measurements as noted. Patent left great saphenous vein with size measurements as noted. Marly MURILLO VASCU CALVIN * (ABNORMAL) RETICULOCYTE PANEL (04/16/2023 3:45 PM EST) Reticulocyte Percent 2.30(H) 0.80 - 1.90 % 04/16/2023 4:02 PM EST [facility] Absolute Reticulocyte 75.4 31.3 - 100.1 K/uL 04/16/2023 4:02 PM EST [facility] Immature Reticuloctye Fraction 35.9(H) 2.5 - 20.6 % 04/16/2023 4:02 PM EST [facility] Reticulocyte Hemoglobin 27.5(L) 29.7 - 37.4 pg 04/16/2023 4:02 PM EST [facility] Blood Venous blood specimen / Unknown Venipuncture / Unknown 04/16/2023 3:45 PM EST 04/16/2023 3:49 PM EST Marly Jones PA-C LAB BLOOD ORDERABLES [facility] [address] [place] [address] * ANEMIA REFLEX CHEMISTRY HOLD (04/16/2023 3:45 PM EST) Blood Venous blood specimen / Unknown Venipuncture / Unknown 04/16/2023 3:45 PM EST 04/16/2023 3:48 PM EST Marly Jones PA-C LAB BLOOD ORDERABLES [facility] [address] [place] [address] * (ABNORMAL) DIFFERENTIAL, AUTOMATED (04/16/2023 3:45 PM EST) WBC 7.82 4.00 - 10.80 K/uL 04/16/2023 3:59 PM EST [facility] Neutrophils % 76.4(H) 40.0 - 75.0 % 04/16/2023 3:59 PM EST [facility] Lymphocytes % 14.3(L) 18.0 - 42.0 % 04/16/2023 3:59 PM EST [facility] Monocytes % 8.7 1.0 - 11.0 % 04/16/2023 3:59 PM EST [facility] Eosinophils % 0.0 0.0 - 6.0 % 04/16/2023 3:59 PM EST [facility] Basophils % 0.3 0.0 - 2.0 % 04/16/2023 3:59 PM EST [facility] Immature Granulocytes % 0.3 0.0 - 2.0 % 04/16/2023 3:59 PM EST [facility] Absolute Neutrophils 5.98 1.80 - 7.70 K/uL 04/16/2023 3:59 PM EST [facility] Absolute Lymphocytes 1.12 1.00 - 4.80 K/ul 04/16/2023 3:59 PM EST [facility] Absolute Monocytes 0.68 0.00 - 1.10 K/uL 04/16/2023 3:59 PM EST [facility] Absolute Eosinophils 0.00 0.00 - 0.70 K/uL 04/16/2023 3:59 PM EST [facility] Absolute Basophils 0.02 0.00 - 0.20 K/uL 04/16/2023 3:59 PM EST [facility] Absolute Immature Granulocytes 0.02 0.00 - 0.20 K/uL 04/16/2023 3:59 PM EST [facility] Blood Venous blood specimen / Unknown Venipuncture / Unknown 04/16/2023 3:45 PM EST 04/16/2023 3:49 PM EST Marly Jones PA-C LAB BLOOD ORDERABLES [facility] [address] [place] [address] * (ABNORMAL) ANEMIA CBC (04/16/2023 3:45 PM EST) Pathologist [facility] WBC 7.82 4.00 - 10.80 K/uL 04/16/2023 3:59 PM EST [facility] RBC 3.25 4.50 - 5.25 M/uL 04/16/2023 3:59 PM EST [facility] HGB 8.5(L) 14.0 - 16.8 g/dL 04/16/2023 3:59 PM EST [facility] Comment: Anemia reflex testing triggers on a HGB < 12.0 for Females and HGB < 13.0 for Males in accordance with the WHO Anemia Guidelines Anemia reflex testing triggers on a HGB < 12.0 for Females and HGB < 13.0 for Males in accordance with the WHO Anemia Guidelines HCT 28.3(L) 40.0 - 48.4 % 04/16/2023 3:59 PM EST [facility] MCV 87.1 82.0 - 99.5 fL 04/16/2023 3:59 PM EST [facility] MCH 26.2 27.0 - 34.0 pg 04/16/2023 3:59 PM EST [facility] MCHC 30.0 32.0 - 36.0 g/dL 04/16/2023 3:59 PM EST [facility] RDW 18.2 11.5 - 15.5 % 04/16/2023 3:59 PM EST [facility] PLT 246 140 - 400 K/uL 04/16/2023 3:59 PM EST [facility] MPV 9.4 6.6 - 11.1 fL 04/16/2023 3:59 PM EST [facility] nRBCs 0 <=0 /100 WBCs 04/16/2023 3:59 PM EST [facility] Blood Venous blood specimen / Unknown Venipuncture / Unknown 04/16/2023 3:45 PM EST 04/16/2023 3:49 PM EST Marly Jones PA-C LAB BLOOD ORDERABLES [facility] [address] [place] [address] * TSH (04/16/2023 3:45 PM EST) TSH 3.24 0.27 - 4.20 uIU/mL 04/16/2023 5:07 PM EST [facility] Blood Venous blood specimen / Unknown Venipuncture / Unknown 04/16/2023 3:45 PM EST 04/16/2023 3:48 PM EST Marly BUSH-Karoline LAB BLOOD ORDERABLES Performing Organization Address City/[facility] Hospital/ZIP Co de Phone Number [facility] [address] [place] [address] * (ABNORMAL) HEPATIC FUNCTION PANEL (04/16/2023 3:45 PM EST) Albumin 3.7(L) 3.8 - 5.0 g/dL 04/16/2023 4:21 PM EST [facility] AST 26 10 - 50 U/L 04/16/2023 4:21 PM EST [facility] Alkaline Phosphatase 111 35 - 130 U/L 04/16/2023 4:21 PM EST [facility] ALT 19 10 - 50 U/L 04/16/2023 4:21 PM EST [facility] Bilirubin, Total 0.3 <=1.2 mg/dL 04/16/2023 4:21 PM EST [facility] Bilirubin, Direct <0.2 0.0 - 0.3 mg/dL 04/16/2023 4:21 PM EST [facility] Protein 6.2 6.0 - 8.3 g/dL 04/16/2023 4:21 PM EST [facility] Blood Venous blood specimen / Unknown Venipuncture / Unknown 04/16/2023 3:45 PM EST 04/16/2023 3:48 PM EST Marly Jones PA-C LAB BLOOD ORDERABLES Performing Organization Address City/State/[facility] Co de Phone Number LABORATORY [facility] [address], [place] [id number] * PT INR (04/16/2023 3:45 PM EST) Prothrombin Time 14.9 11.6 - 15.2 seconds 04/16/2023 4:16 PM EST [facility] INR 1.2 0.8 - 1.2 04/16/2023 4:16 PM EST [facility] Blood Venous blood specimen / Unknown Venipuncture / Unknown 04/16/2023 3:45 PM EST 04/16/2023 3:49 PM EST Narrative [facility] - 04/16/2023 4:16 PM EST Warfarin Therapy INR: 2.0-3.0 conventional anticoagulation INR: 2.5-3.5 high intensity anticoagulation Marly BUSH-C LAB BLOOD ORDERABLES LABORATORY [facility] [address] [place] [address] * ABO/RH (04/16/2023 3:44 PM EST) ABO A 04/16/2023 5:21 PM EST [facility] BLOOD BANK Rh Positive 04/16/2023 5:21 PM EST LABORATORY C BLOOD BANK Blood Venous blood specimen / Unknown Venipuncture / Unknown 04/16/2023 3:44 PM EST 04/16/2023 3:49 PM EST Marly Jones PA-C LAB BLOOD BANK TEST ORDERABLES Performing Organization Address City/[facility] Co de Phone Number LABORATORY [facility] BLOOD BANK [address] [place] [address] * TYPE AND SCREEN (04/16/2023 3:44 PM EST) Pathologist [facility] ABO A 04/16/2023 4:50 PM EST LABORATORY [facility] BLOOD BANK Rh Positive 04/16/2023 4:50 PM EST LABORATORY [facility] BLOOD BANK Red Blood Cell Antibody Screen Negative 04/16/2023 4:50 PM EST LABORATORY [facility] BLOOD BANK Specimen Expiration Date 04/19/2023 23:59 04/16/2023 4:50 PM EST LABORATORY [facility] BLOOD BANK Blood Venous blood specimen / Unknown Venipuncture / Unknown 04/16/2023 3:44 PM EST 04/16/2023 3:49 PM EST Marly Jones PA-C LAB BLOOD BANK TEST ORDERABLES Performing Organization Address City/[facility]/ZIP Co de Phone Number LABORATORY [facility] BLOOD BANK [address] [place] [address] * PREPARE PACKED RED BLOOD CELLS (04/16/2023 3:20 PM EST) Pathologist [facility] Unit Product Code [id number] LABORATORY [facility] BLOOD BANK Unit Number [id number] LABO RATORY [facility] BLOOD BANK Unit ABO A LABORATORY [facility] BLOOD BANK Unit Rh POS LABORATORY GM BLOOD BANK Unit Crossmatch Compatible LABORATORY [facility] BLOOD BANK Unit Status RE LABORATO RY [facility] BLOOD BANK Unit Blood Type APOS LABORATORY [facility] BLOOD BANK Unit Expiration [id number] LABORATORY [facility] BLOOD BANK Unit Barcode 6200 LABORAT ORY [facility] BLOOD BANK 04/16/2023 3:20 PM EST Marly Jones PA-C BLD BANK PRODUCT ORDERABLES LABORATORY [facility] BLOOD BANK [address] [place] [address] * (ABNORMAL) IRON SCREEN, INCLUDING TIBC (04/16/2023 11:53 AM EST) Iron 210(H) 45 - 176 ug/dL 04/16/2023 3:53 PM EST [facility] Iron Binding Capacity 444(H) 250 - 425 ug/dL 04/16/2023 3:53 PM EST [facility] Transferrin Saturation Percent 47 15 - 55 % 04/16/2023 3:53 PM EST [facility] Blood Venous blood specimen / Unknown Venipuncture / Unknown 04/16/2023 11:53 AM EST 04/16/2023 12:14 PM EST Marly Jones PA-C LAB BLOOD ORDERABLES Performing Organization Address City/[facility]/ZIP Co de Phone Number LABORATORY [facility] [address] [place] [address] * (ABNORMAL) TROPONIN T, HIGH SENSITIVITY (04/16/2023 11:53 AM EST) Troponin T, High Sensitivity 125(HH) <=22 ng/L 04/16/2023 12:44 PM EST [facility] Blood Venous blood specimen / Unknown Venipuncture / Unknown 04/16/2023 11:53 AM EST 04/16/2023 12:14 PM EST Shoshana Paul MD LAB BLOOD ORDERABLES Performing Organization Address City/[facility]/ZIP Co de Phone Number LABORATORY [facility] [address] [place] [address] * (ABNORMAL) GLUCOSE METER, POINT OF CARE (04/16/2023 11:30 AM EST) Glucose Meter 135(H) 70 - 120 mg/dL 04/16/2023 12:18 PM EST [facility] Blood Whole blood specimen / Unknown 04/16/2023 11:30 AM EST 04/16/2023 12:18 PM EST Benny Moran MD LAB POINT OF CARE TE ST DOCKED DEVICE UNSOLICITED RESULTS Performing Organization Address [facility] Co de Phone Number [facility] [address] [place] [address] * APTT (04/16/2023 5:50 AM EST) aPTT 32 21 - 38 seconds 04/16/2023 6:31 AM EST LABORATORY [facility] Blood Venous blood specimen / Unknown Venipuncture / Unknown 04/16/2023 5:50 AM EST 04/16/2023 6:03 AM EST Narrative LABORATORY [facility] - 04/16/2023 6:31 AM EST Anticoagulation may affect testing. Refer to [facility] Test Catalog for a list of effects. Jose Nicholas MD LAB BLOOD ORDE LIV Performing Organization Address City/[facility]/ZIP Co de Phone Number LABORATORY [facility] [address] [place] [address] * (ABNORMAL) TROPONIN T, HIGH SENSITIVITY (04/16/2023 5:50 AM EST) Troponin T, High Sensitivity 142(HH) <=22 ng/L 04/16/2023 6:41 AM EST LABORATORY [facility] Blood Venous blood specimen / Unknown Venipuncture / Unknown 04/16/2023 5:50 AM EST 04/16/2023 6:03 AM EST Shoshana Paul MD LAB BLOOD ORDERABLES Performing Organization Address [facility]/ZIP Co de Phone Number LABORATORY [facility] [address] [place] [address] * PT INR (04/16/2023 5:50 AM EST) Prothrombin Time 14.2 11.6 - 15.2 seconds 04/16/2023 6:30 AM EST LABORATORY [facility] INR 1.1 0.8 - 1.2 04/16/2023 6:30 AM EST LABORATORY [facility] Blood Venous blood specimen / Unknown Venipuncture / Unknown 04/16/2023 5:50 AM EST 04/16/2023 6:03 AM EST Narrative [facility] - 04/16/2023 6:30 AM EST Warfarin Therapy INR: 2.0-3.0 conventional anticoagulation INR: 2.5-3.5 high intensity anticoagulation Shoshana Paul MD LAB BLOOD ORDERABLES Performing Organization Address [facility] Co de Phone Number LABORATORY [facility] [address] [place] [address] * (ABNORMAL) BASIC METABOLIC PANEL (04/16/2023 5:50 AM EST) BUN 28(H) 6 - 20 mg/dL 04/16/2023 6:41 AM EST LABORATORY [facility] Creatinine 1.4(H) 0.6 - 1.2 mg/dL 04/16/2023 6:41 AM EST LABORATORY [facility] Estimated Glomerular Filtration Rate 51(L) >=60 mL/min 04/16/2023 6:41 AM EST [facility] Comment:eGFR is calculated b ased on the CKD-EPI 2020 equation Sodium 141 135 - 146 mmol/L 04/16/2023 6:41 AM EST [facility] Potassium 4.3 3.5 - 5.1 mmol/L 04/16/2023 6:41 AM EST [facility] Chloride 107 98 - 107 mmol/L 04/16/2023 6:41 AM EST [facility] CO2 23 22 - 32 mmol/L 04/16/2023 6:41 AM EST [facility] Anion Gap 11 7 - 15 mmol/L 04/16/2023 6:41 AM EST [facility] Glucose 110 70 - 120 mg/dL 04/16/2023 6:41 AM EST [facility] Calcium 9.2 8.4 - 10.2 mg/dL 04/16/2023 6:41 AM EST [facility] Blood Venous blood specimen / Unknown Venipuncture / Unknown 04/16/2023 5:50 AM EST 04/16/2023 6:03 AM EST Shoshana Paul MD LAB BLOOD ORDERABLES [facility] [address] [place] [address] * (ABNORMAL) CBC (04/16/2023 5:50 AM EST) WBC 8.28 4.00 - 10.80 K/uL 04/16/2023 6:26 AM EST [facility] RBC 3.45 4.50 - 5.25 M/uL 04/16/2023 6:26 AM EST [facility] HGB 8.8(L) 14.0 - 16.8 g/dL 04/16/2023 6:26 AM EST [facility] HCT 30.5(L) 40.0 - 48.4 % 04/16/2023 6:26 AM EST [facility] MCV 88.4 82.0 - 99.5 fL 04/16/2023 6:26 AM EST [facility] MCH 25.5 27.0 - 34.0 pg 04/16/2023 6:26 AM EST [facility] MCHC 28.9 32.0 - 36.0 g/dL 04/16/2023 6:26 AM EST [facility] RDW 18.0 11.5 - 15.5 % 04/16/2023 6:26 AM EST [facility] PLT 245 140 - 400 K/uL 04/16/2023 6:26 AM EST [facility] MPV 10.0 6.6 - 11.1 fL 04/16/2023 6:26 AM EST [facility] nRBCs 0 <=0 /100 WBCs 04/16/2023 6:26 AM EST [facility] Blood Venous blood specimen / Unknown Venipuncture / Unknown 04/16/2023 5:50 AM EST 04/16/2023 6:03 AM EST Shoshana Paul MD LAB BLOOD ORDERABLES Performing Organization Address [facility] de Phone Number LABORATORY [facility] [address] [place] [address] * (ABNORMAL) HEMOGLOBIN A1C (04/16/2023 5:50 AM EST) Hemoglobin A1C 6.0(H) 4.0 - 5.6 % 04/16/2023 6:25 AM EST LABORATORY [facility] Comment:The use of HbA1c to monitor glycemic status is based on normal hemoglobin and HbA composition. This test should not be used in patients with abnormal hemoglobin that affects the half life of the red blood cell or the in vivo glycation rates. Estimated Average Glucose 126(H) <126 mg/dL 04/16/2023 6:25 AM EST LABORATORY [facility] Blood Venous blood specimen / Unknown Venipuncture / Unknown 04/16/2023 5:50 AM EST 04/16/2023 6:03 AM EST Shoshana Paul MD LAB BLOOD ORDERABLES Performing Organization Address [facility] Phone Number LABORATORY [place] [address] [place] [address] * (ABNORMAL) LIPID PANEL WITHOUT DIRECT LDL (04/16/2023 5:50 AM EST) Triglycerides 139 <=174 mg/dL 04/16/2023 6:41 AM EST LABORATORY [facility] Comment: Triglyceride Reference Ranges (mg/dL): <150 Acceptable 150-174 Borderline high 175-499 High >=500 Very high Cholesterol 155 <200 mg/dL 04/16/2023 6:41 AM EST LABORATORY [facility] Comment: Total Cholesterol Reference Ranges (mg/dL): <200 Desirable 200-239 Borderline high >=240 High HDL Cholesterol 31(L) >39 mg/dL 6:41 AM EST LABORATORY [facility] Comment: HDL Cholesterol Reference Ranges (mg/dL): >=60 High (Desirable) <50 Low (Undesirable) For Females <40 Low (Undesirable) For Males Non-HDL Cholesterol 124 <=159 mg/dL 04/16/2023 6:41 AM EST LABORATORY [facility] Comment: Non-HDL Cholesterol Reference Range (mg/dL): <100 Target level for high risk ASCVD patient <130 Optimal for general population 130-159 Near optimal for general population 160-189 Borderline High 190-219 High >=220 Very High LDL Cholesterol 96 <=129 mg/dL 04/16/2023 6:41 AM EST LABORATORY [facility] Comment: LDL Cholesterol Reference Ranges (mg/dL): <70 Target level for high risk ASCVD patient <100 Optimal for general population 100-129 Near optimal for general population 130-159 Borderline high 160-189 High >=190 Very high Blood Venous blood specimen / Unknown Venipuncture / Unknown 04/16/2023 5:50 AM EST 04/16/2023 6:03 AM EST Shoshana Paul MD LAB BLOOD ORDERABLES LABORATORY [facility] [address] [place] [address] * GLUCOSE METER, POINT OF CARE (04/16/2023 5:35 AM EST) Pathologist [facility] Glucose Meter 110 70 - 120 mg/dL 04/17/2023 10:21 AM EST [facility] Blood Whole blood specimen / Unknown 04/16/2023 5:35 AM EST 04/17/2023 10:21 AM EST Benny Moran MD LAB POINT OF CARE TE ST DOCKED DEVICE UNSOLICITED RESULTS [facility] [address] [place] [address] * RESPIRATORY PATHOGEN PANEL, PCR (04/16/2023 12:42 AM EST) Adenovirus by PCR Negative Negative 023 1:47 AM EST LABORATORY [facility] Coronavirus 229E by PCR Negative Negative 04/16/2023 1:47 AM EST LABORATORY [facility] Coronavirus HKU1 by PCR Negative Negative 04/16/2023 1:47 AM EST LABORATORY [facility] Coronavirus NL63 by PCR Negative Negative 04/16/2023 1:47 AM EST LABORATORY [facility] Coronavirus OC43 by PCR Negative Negative 04/16/2023 1:47 AM EST LABORATORY [facility] Coronavirus SARS-CoV-2 by PCR Negative Negative 04/16/2023 1:47 AM EST LABORATORY [facility] Human Metapneumovirus by PCR Negative Negative 04/16/2023 1:47 AM EST [facility] Rhinovirus/Enterovi patsy by PCR Negative Negative 04/16/2023 1:47 AM EST [facility] Influenza A Virus by PCR Negative Negative 04/16/2023 1:47 AM EST LABORATORY [facility] Influenza B Virus by PCR Negative Negative 04/16/2023 1:47 AM EST LABORATORY [facility] Parainfluenza Virus 1 by PCR Negative Negative 04/16/2023 1:47 AM EST LABORATORY [facility] Parainfluenza Virus 2 by PCR Negative Negative 04/16/2023 1:47 AM EST LABORATORY [facility] Parainfluenza Virus 3 by PCR Negative Negative 04/16/2023 1:47 AM EST LABORATORY [facility] Parainfluenza Virus 4 by PCR Negative Negative 04/16/2023 1:47 AM EST LABORATORY [facility] Respiratory Syncytial Virus by PCR Negative Negative 04/16/2023 1:47 AM EST LABORATORY C Bordetella pertussis by PCR Negative Negative 04/16/2023 1:47 AM EST LABORATORY GM Chlamydia pneumoniae by PCR Negative Negative 04/16/2023 1:47 AM EST [facility] Mycoplasma pneumoniae by PCR Negative Negative 04/16/2023 1:47 AM EST LABORATORY C Bordetella parapertussis by PCR Negative Negative 04/16/2023 1:47 AM EST LABORATORY C Comment: The primers that detect Rhinovirus may cross react with some Enterorviruses. The validation of bronchial specimens, tracheal aspirates, and throats for this assay was developed and performance characteristics determined by [employer]. The validation of alternate specimen types has not been cleared or approved by the U.S. Food and Drug Administration (FDA). It has been determined that such clearance or approval is not necessary. Upper Respiratory Mid-turbinate nasal swab / Unknown Non-blood Collection / Unknown 04/16/2023 12:42 AM EST 04/16/2023 12:54 AM EST Shoshana Paul MD LAB MICRO - GENERAL ORDERABLES Performing Organization Address [facility] Co de Phone Number LABORATORY [facility] [address] [place] [address] * (ABNORMAL) GLUCOSE METER, POINT OF CARE (04/16/2023 12:25 AM EST) Glucose Meter 130(H) 70 - 120 mg/dL 04/16/2023 11:41 AM EST [facility] Blood Whole blood specimen / Unknown 04/16/2023 12:25 AM EST 04/16/2023 11:41 AM EST Benny Moran MD LAB POINT OF CARE TE ST DOCKED DEVICE UNSOLICITED RESULTS Performing Organization Address [facility] Co de Phone Number [facility] [address] [place] [address] * FOLIC ACID (04/15/2023 10:58 PM EST) Folic Acid >20.0 >4.5 ng/mL 04/16/2023 12:31 AM EST LABORATORY [facility] Blood Venous blood specimen / Unknown Venipuncture / Unknown 04/15/2023 10:58 PM EST 04/15/2023 11:08 PM EST Shoshana Paul MD LAB BLOOD ORDERABLES Performing Organization Address [facility] Co de Phone Number LABORATORY [facility] [address] [place] [address] * (ABNORMAL) VITAMIN B12 (04/15/2023 10:58 PM EST) Vitamin B12 1,515(H) 232 - 1,245 pg/mL 04/16/2023 12:31 AM EST LABORATORY [facility] Blood Venous blood specimen / Unknown Venipuncture / Unknown 04/15/2023 10:58 PM EST 04/15/2023 11:08 PM EST Shoshana Paul MD LAB BLOOD ORDERABLES LABORATORY [facility] [address] [place] [address] * FERRITIN (04/15/2023 10:58 PM EST) Ferritin 30 30 - 400 ng/mL 04/16/2023 12:31 AM EST [facility] Blood Venous blood specimen / Unknown Venipuncture / Unknown 04/15/2023 10:58 PM EST 04/15/2023 11:08 PM EST Shoshana Paul MD LAB BLOOD ORDERABLES Performing Organization Address City/[facility] de Phone Number [facility] [address] [place] [address] * (ABNORMAL) IRON SCREEN, INCLUDING TIBC (04/15/2023 10:58 PM EST) Iron 25(L) 45 - 176 ug/dL 04/15/2023 11:52 PM EST [facility] Iron Binding Capacity 297 250 - 425 ug/dL 04/15/2023 11:52 PM EST [facility] Transferrin Saturation Percent 8(L) 15 - 55 % 04/15/2023 11:52 PM EST [facility] Blood Venous blood specimen / Unknown Venipuncture / Unknown 04/15/2023 10:58 PM EST 04/15/2023 11:08 PM EST Shoshana Paul MD LAB BLOOD ORDERABLES Performing Organization Address City/[facility]/ZIP Co de Phone Number [facility] [address] [place] [address] * PHOSPHORUS (04/15/2023 10:58 PM EST) Phosphorus 3.3 2.5 - 4.8 mg/dL 04/15/2023 11:52 PM EST [facility] Blood Venous blood specimen / Unknown Venipuncture / Unknown 04/15/2023 10:58 PM EST 04/15/2023 11:08 PM EST Shoshana Paul MD LAB BLOOD ORDERABLES LABORATORY [facility] [address] [place] [address] * MAGNESIUM (04/15/2023 10:58 PM EST) Magnesium 2.2 1.5 - 2.6 mg/dL 04/15/2023 11:52 PM EST LABORATORY [facility] Blood Venous blood specimen / Unknown Venipuncture / Unknown 04/15/2023 10:58 PM EST 04/15/2023 11:08 PM EST Shoshana Paul MD LAB BLOOD ORDERABLES Performing Organization Address [facility] Co de Phone Number LABORATORY [place] [address] [place] [address] * (ABNORMAL) BNP, NT-PRO (04/15/2023 10:58 PM EST) BNP, NT-Pro 3,612(H) <300 pg/mL 04/15/2023 11:52 PM EST LABORATORY [facility] Blood Venous blood specimen / Unknown Venipuncture / Unknown 04/15/2023 10:58 PM EST 04/15/2023 11:08 PM EST Narrative LABORATORY [facility] - 04/15/2023 11:52 PM EST Exclude Heart Failure: <300 pg/mL Diagnose Heart Failure: Age <50 yr: >450 pg/mL 50-75 yr: >900 pg/mL >75 yr: >1800 pg/mL GFR is 30-59 mL/min: >1200 pg/mL or Age-adjusted values GFR <30 mL/min: do not use, not reliable Prognostic threshold: 1000 pg/mL Authorizing Provider Result Dorota Paul MD LAB BLOOD ORDERABLES Performing Organization Address City/[facility]/ZIP Co de Phone Number LABORATORY [place] [address] [place] [address] * (ABNORMAL) TROPONIN T, HIGH SENSITIVITY (04/15/2023 10:58 PM EST) Troponin T, High Sensitivity 145(HH) <=22 ng/L 04/15/2023 11:52 PM EST [facility] Blood Venous blood specimen / Unknown Venipuncture / Unknown 04/15/2023 10:58 PM EST 04/15/2023 11:08 PM EST Shoshana Paul MD LAB BLOOD ORDERABLES [facility] [address] [place] [address] * (ABNORMAL) COMPREHENSIVE METABOLIC PANEL (04/15/2023 10:58 PM EST) Pathologist [facility] BUN 27(H) 6 - 20 mg/dL 04/15/2023 11:52 PM EST [facility] Creatinine 1.4(H) 0.6 - 1.2 mg/dL 04/15/2023 11:52 PM EST [facility] Estimated Glomerular Filtration Rate 50(L) >=60 mL/min 04/15/2023 11:52 PM EST [facility] Comment:eGFR is calculated b ased on the CKD-EPI 2020 equation Sodium 139 135 - 146 mmol/L 04/15/2023 11:52 PM EST [facility] Potassium 4.7 3.5 - 5.1 mmol/L 04/15/2023 11:52 PM EST [facility] Chloride 106 98 - 107 mmol/L 04/15/2023 11:52 PM EST [facility] CO2 23 22 - 32 mmol/L 04/15/2023 11:52 PM EST [facility] Anion Gap 10 7 - 15 mmol/L 04/15/2023 11:52 PM EST [facility] Glucose 112 70 - 120 mg/dL 04/15/2023 11:52 PM EST [facility] Albumin 3.8 3.8 - 5.0 g/dL 04/15/2023 11:52 PM EST [facility] AST 22 10 - 50 U/L 04/15/2023 11:52 PM EST [facility] Alkaline Phosphatase 115 35 - 130 U/L 04/15/2023 11:52 PM EST [facility] Bilirubin, Total 0.2 <=1.2 mg/dL 04/15/2023 11:52 PM EST [facility] Calcium 9.3 8.4 - 10.2 mg/dL 04/15/2023 11:52 PM EST [facility] Protein 6.2 6.0 - 8.3 g/dL 04/15/2023 11:52 PM EST [facility] ALT 20 10 - 50 U/L 04/15/2023 11:52 PM EST LABORATORY [facility] Blood Venous blood specimen / Unknown Venipuncture / Unknown 04/15/2023 10:58 PM EST 04/15/2023 11:08 PM EST Shoshana Paul MD LAB BLOOD ORDERABLES Performing Organization Address [facility]/ZIP Co de Phone Number LABORATORY [facility] [address] [place] [address] * (ABNORMAL) HEPARIN, UNFRACTIONATED (04/15/2023 10:58 PM EST) Pathologist [facility] Heparin, Unfractionated 1.08(HH) <0.10 IU/mL 04/15/2023 11:29 PM EST LABORATORY [facility] Comment: Unfractionated therapeutic ranges for Anti Xa activity: For Cardiac/Neurologic treatment: 0.3 to 0.6 IU/mL. For treatment of DVT or Pulmonary Embolism: 0.3 to 0.7 IU/mL. Blood Venous blood specimen / Unknown Venipuncture / Unknown 04/15/2023 10:58 PM EST 04/15/2023 11:08 PM EST Shoshana Paul MD LAB BLOOD ORDERABLES Performing Organization Address City/[facility]/ZIP Co de Phone Number LABORATORY [facility] [address] [place] [address] * (ABNORMAL) CBC (04/15/2023 10:58 PM EST) WBC 7.39 4.00 - 10.80 K/uL 04/15/2023 11:18 PM EST [facility] RBC 3.37 4.50 - 5.25 M/uL 04/15/2023 11:18 PM EST [facility] HGB 8.6(L) 14.0 - 16.8 g/dL 04/15/2023 11:18 PM EST [facility] HCT 29.2(L) 40.0 - 48.4 % 04/15/2023 11:18 PM EST [facility] MCV 86.6 82.0 - 99.5 fL 04/15/2023 11:18 PM EST [facility] MCH 25.5 27.0 - 34.0 pg 04/15/2023 11:18 PM EST [facility] MCHC 29.5 32.0 - 36.0 g/dL 04/15/2023 11:18 PM EST [facility] RDW 18.0 11.5 - 15.5 % 04/15/2023 11:18 PM EST [facility] PLT 237 140 - 400 K/uL 04/15/2023 11:18 PM EST [facility] MPV 9.6 6.6 - 11.1 fL 04/15/2023 11:18 PM EST [facility] nRBCs 0 <=0 /100 WBCs 04/15/2023 11:18 PM EST [facility] Blood Venous blood specimen / Unknown Venipuncture / Unknown 04/15/2023 10:58 PM EST 04/15/2023 11:08 PM EST Shoshana Paul MD LAB BLOOD ORDERABLES LABORATORY [facility] [address] [place] [address] * APTT (04/15/2023 10:58 PM EST) aPTT 29 21 - 38 seconds 04/15/2023 11:29 PM EST [facility] Blood Venous blood specimen / Unknown Venipuncture / Unknown 04/15/2023 10:58 PM EST 04/15/2023 11:08 PM EST Narrative LAB[facility]ORY [facility] - 04/15/2023 11:29 PM EST Anticoagulation may affect testing. Refer to [facility] Test Catalog for a list of effects. Shoshana Paul MD LAB BLOOD ORDERABLES [facility] [address] [place] [address] * PT INR (04/15/2023 10:58 PM EST) Prothrombin Time 13.7 11.6 - 15.2 seconds 04/15/2023 11:20 PM EST LABORATORY [facility] INR 1.0 0.8 - 1.2 04/15/2023 11:20 PM EST LABORATORY [facility] Blood Venous blood specimen / Unknown Venipuncture / Unknown 04/15/2023 10:58 PM EST 04/15/2023 11:08 PM EST Narrative LABORATORY [facility] - 04/15/2023 11:20 PM EST Warfarin Therapy INR: 2.0-3.0 conventional anticoagulation INR: 2.5-3.5 high intensity anticoagulation Shoshana Paul MD LAB BLOOD ORDERABLES LABORATORY [facility] [address] [place] [address] * XR CHEST 1 VIEW (04/15/2023 10:31 PM EST) Anatomical Region Laterality Modality Chest Computed Radiogr aphy 04/16/2023 7:19 AM EST Impressions 04/16/2023 7:17 AM EST IMPRESSION: 1. Hypoventilatory changes with patchy bibasilar airspace disease which may represent atelectasis or developing pneumonia. 2. Recommend follow-up chest CT for left midlung nodular opacity likely corresponding with nodule seen on prior CT. Radiology results reporting pathway was initiated given that a follow-up recommendation was provided and to activate [place] Act 112 patient communication. Narrative 04/16/2023 7:17 AM EST EXAM: XR CHEST 1 VIEW - 04/15/2023 10:31 pm HISTORY: Hypoxemia TECHNIQUE: Single AP chest x-ray COMPARISON: Chest CT from 06/29/2022; chest x-ray from 04/26/2017 FINDINGS: Catheters/tubes/devices/foreign bodies: None. Low lung volumes. No dense consolidation or effusion. Patchy bibasilar ground-glass opacities with nodular appearance in the peripheral left mid lung overlying the left 4th rib end. No evidence of pneumothorax. Cardiomediastinal silhouette is within normal limits. Osseous structures are unremarkable. Procedure Note Manish Zimmer DO - 04/16/2023 EXAM: XR CHEST 1 VIEW - 04/15/2023 10:31 pm HISTORY: Hypoxemia TECHNIQUE: Single AP chest x-ray COMPARISON: Chest CT from 06/29/2022; chest x-ray from 04/26/2017 FINDINGS: Catheters/tubes/devices/foreign bodies: None. Low lung volumes. No dense consolidation or effusion. Patchy bibasilarground- glass opacities with nodular appearance in the peripheral left midlung overlying the left 4th rib end. No evidence of pneumothorax. Cardiomediastinal silhouette is within normal limits. Osseous structures are unremarkable. IMPRESSION IMPRESSION: 1. Hypoventilatory changes with patchy bibasilar airspace disease whichmay represent atelectasis or developing pneumonia. 2. Recommend follow-up chest CT for left midlung nodular opacity likelycorresponding with nodule seen on prior CT. Radiology results reporting pathway was initiated given that a follow-uprecommendation was provided and to activate [place] Act 112 patientcommunication. Shoshana Paul MD RADIOLOGY (RAD GENER AL) * EKG (04/15/2023 9:26 PM EST) 04/15/2023 9:26 PM EST Narrative Procedure Note Ryan Linn MD - 04/15/2023 9:26 PM EST REASON FOR STUDY: Chest Pain CONCLUSIONS: Sinus rhythm with 1st degree AV block ST & T wave abnormality, consider lateral ischemia When compared with ECG of 08-DEC-2022 14:39, Premature ventricular complexes are no longer Present Ventricular Rate: 68 Atrial Rate: 68 SD Interval: 220 QRS Duration: 90 QT/QTc: 416/442 ms P-R-T Anderson: 0 : -12 : 220 degrees Shoshana Paul MD EKG [facility] documented in this encounter Visit Diagnoses Diagnosis NSTEMI (non-ST elevated myocardial infarction) (HCC)- Primary Acute myocardial infarction, subendocardial infarction, episode of care unspecified NSTEMI (non-ST elevated myocardial infarction) ([facility]) Acute myocardial infarction, subendocardial infarction, episode of care unspecified Chest pain, unspecified type CAD (coronary artery disease) Coronary atherosclerosis of unspecified type of vessel, lac vieux or graft Type 2 diabetes mellitus with hemoglobin A1c goal of less than 8.0% ([facility]) AAA (abdominal aortic aneurysm) ([facility]) Abdominal aneurysm without mention of rupture HTN, goal below 130/80 Unspecified essential hypertension Tobacco abuse Tobacco use disorder Gastroesophageal reflux disease without esophagitis Esophageal reflux PTSD (post-traumatic stress disorder) Posttraumatic stress disorder YISSEL treated with BiPAP Dyslipidemia Other and unspecified hyperlipidemia Aortic valve stenosis Aortic valve disorders Chronic kidney disease, stage 3a ([facility]) Obesity, Class I, BMI 30.0-34.9 (see actual BMI) Obesity, unspecified History of cardioembolic cerebrovascular accident (CVA) documented in this encounter Administered Medications Inactive Administered Medications - up to 3 most recent administrations Medication Order MAR Action Action Date Dose Rate Site Apixaban (Eliquis) tab 5 mg 5 mg, Oral, BID (.AM/PM), First dose on Wed04/17/23 at 2100, Until Discontinued Given 04/18/2023 9:07 AM EST 5 mg Given 04/17/2023 8:05 PM EST 5 mg aspirin chew tab 81 mg 81 mg, Oral, Daily(AM), First dose on Wed04/16/23 at 0900, Until Discontinued Given 04/18/2023 9:06 AM EST 81 mg Given 04/17/2023 9:14 AM EST 81 mg Given 04/16/2023 9:30 AM EST 81 mg atorvaSTATin (Lipitor) tab 80 mg 80 mg, Oral, Q1700, First dose on Wed04/16/23 at 1700, Until Discontinued Given 04/17/2023 5:54 PM EST 80 mg Given 04/16/2023 6:43 PM EST 80 mg clopidogrel (pLAVix) tab 300 mg 300 mg, Oral, ONCE, On 04/17/23 at 1000, For 1 dose Given 04/17/2023 10:35 AM EST 300 mg clopidogrel (pLAVix) tab 75 mg 75 mg, Oral, Daily(AM), First dose on Wed04/18/23 at 0915, Until Discontinued Given 04/18/2023 9:15 AM EST 75 mg dextrose 50 % inj 25 mL 25 mL, IV Push, PRN Hypoglycemia, Other, For blood glucose 54 - 69 mg/dL or 70 - 100 mg/dL with symptoms AND patient is unresponsive, NPO, OR unable to swallow, Starting on Rebecca 04/15/23 at 2337, Until 04/18/23 at 1907, Administer IV. Recheck blood glucose after 15 minutes. Notify provider. dextrose 50 % inj 50 mL 50 mL, IV Push, PRN Hypoglycemia, Other, For blood glucose below 54 mg/dL AND patient unresponsive, NPO, OR unable to swallow, Starting on Rebecca 04/15/23 at 2337, Until 04/18/23 at 1907, Administer IV. Recheck blood glucose in 15 minutes. Notify provider. fentaNYL (PF) inj 25 mcg 25 mcg, IV Push, PRN Pain, Severe, Starting on Wed04/16/23 at 1424, Until Wed04/16/23 at 1519, For 2 hours, To be administered in [employer] intra-procedure only When given IV Push its recommended that the dose be given over 3 to 5 minutes., Intra-Op Given 04/16/2023 2:27 PM EST 25 m cg FLUoxetine (PROzac) cap 60 mg 60 mg, Oral, Daily(AM), First dose on Wed04/16/23 at 0900, Until Discontinued Given 04/18/2023 9:08 AM EST 60 mg Given 04/17/2023 9:14 AM EST 60 mg Given 04/16/2023 9:29 AM EST 60 mg fluticasone furoate-vilanterol (BREO ellipta) 200-25 MCG/ACT inhaler 1 Puff 1 Puff, Inhalation, Daily(AM), First dose on Wed04/16/23 at 0900, Until Discontinued, NURSING TO FOLLOW PATIENT WITH MDI/DPI ADMINISTRATION Given 04/18/2023 9:09 AM EST 1 Puff Given 04/17/2023 9:15 AM EST 1 Puff Given 04/16/2023 7:44 AM EST 1 Puff Furosemide (Lasix) inj 40 mg 40 mg, IV Push, Daily(AM), First dose on Wed04/16/23 at 0900, Until Discontinued Given 04/16/2023 9:30 AM EST 40 mg Furosemide (Lasix) inj 40 mg 40 mg, IV Push, BID (0900, 1600), First dose (after last modification) on Wed04/16/23 at 1600, Until Discontinued Given 04/18/2023 9:07 AM EST 40 mg Given 04/17/2023 9:14 AM EST 40 mg Given 04/16/2023 6:43 PM EST 40 mg Gabapentin (Neurontin) cap 300 mg 300 mg, Oral, HS, First dose on Wed04/16/23 at 0015, Until Discontinued Given 04/17/2023 9:05 PM EST 300 mg Given 04/16/2023 9:31 PM EST 300 mg Given 04/16/2023 12:42 AM EST 300 mg glucagon (Glucagen) inj 1 mg 1 mg, Intramuscular, PRN Hypoglycemia, Other, If patient is unresponsive, or NPO and has no IV access, Starting on [facility] 04/15/23 at 2337, Until 04/18/23 at 1907, NPO and no IV access with either 1) blood glucose less than 100 mg/dL and symptomatic OR 2) blood glucose less than 70 mg/dL and asymptomatic Glucose (Glutose 15) 40 % gel 15 g of glucose 15 g of glucose, Oral, PRN Hypoglycemia (low sugar), Other, For blood glucose 54 - 69 mg/dL or 70 - 100 mg/dL with symptoms AND patient alert WITH difficulty chewing/swallowing, Starting on [facility] 04/15/23 at 2337, Until 04/18/23 at 1907, Administer gel. Recheck blood glucose after 15 minutes. Notify provider. 37.5 gram tube = 15 grams glucose = 1 each Glucose (Glutose 15) 40 % gel 30 g of glucose 30 g of glucose, Oral, PRN Hypoglycemia (low sugar), Other, For blood glucose below 54 mg/dL AND patient alert WITH difficulty chewing/swallowing, Starting on [facility] 04/15/23 at 2337, Until 04/18/23 at 1907, Administer gel. Recheck blood glucose after 15 minutes. Notify provider. 37.5 gram tube = 15 grams glucose = 1 each glucose chew tab 16 g 16 g, Oral, PRN Hypoglycemia, Other, For blood glucose 54 - 69 mg/dL or 70 - 100 mg/dL with symptoms and patient alert without difficulty chewing/swallowing., Starting on [facility] 04/15/23 at 2337, Until 04/18/23 at 1907 hEParin 1000 UNIT/ML inj 2,300 Units 2,300 Units (rounded from 2,334 Units = 30 Units/kg 77.8 kg Adjusted weight), IV Push, PRN Other, If most recent aPTT result is less than or equal to 55 seconds, Starting on Rebecca 04/15/23 at 2200, Until 04/17/23 at 0929, Repeat aPTT 6 hours after bolus is administered. Send message to pharmacy if dose needed. Given 04/16/2023 9:42 AM EST 2,300 Units hEParin 25,000 units in 250 mL (aPTT-Cardiac) infusion Intravenous, at 0-23.34 mL/hr, Start heparin as soon as baseline labs are drawn. Please select this medication from the infusion pump library! Concentration: 100 units/mL Expires 96 hours after spiking on (date) at (hour) , TITRATE, Starting on Rebecca 04/15/23 at 2245, Until 04/17/23 at 0929 Nurse Change 04/17/2023 7:21 AM EST 15 Units/kg/hr 11.67 mL/hr New Bag 04/17/2023 5:54 AM EST 15 Units/kg/hr 11.67 mL/ hr Restarted 04/16/2023 7:57 PM EST 15 Units/kg/hr 11.67 mL/ hr hEParin inj 5,000 Units 5,000 Units, IV Push, PRN Other, Anticoagulation not at goal, Starting on Wed04/16/23 at 1424, Until Wed04/16/23 at 1519, For 2 hours, To be administered in [employer] intra-procedure., Intra-Op Given 04/16/2023 2:38 PM EST 5,000 Units insulin aspart (NovoLOG) inj Subcutaneous, Q6H, First dose on Wed04/16/23 at 0015, Until Discontinued, MEDIUM DOSE (Usual starting dose): Sliding Scale Correctional insulin may be given if the patient is NPO. Dose based on standard build from Insulin Calculator. Do not modify insulin doses in administration instructions! , Glucose less than 70 instructions: Obtain STAT lab blood glucose and call covering provider., Glucose 80-150 (units): 0, Glucose 151-200 (units): 2, Glucose 201-250 (units): 4, Glucose 251-300 (units): 6, Glucose greater than 300 (units): 8, Glucose greater than 300 instructions: Give suggested insulin dose and call covering provider. Given 04/17/2023 5:54 PM EST 2 Units Arm Left Upper insulin aspart (NovoLOG) inj Subcutaneous, ACHS, First dose (after last modification) on Wed04/17/23 at 2200, Until Discontinued, MEDIUM DOSE (Usual starting dose): Sliding Scale Correctional insulin may be given if the patient is NPO. Dose based on standard build from Insulin Calculator. Do not modify insulin doses in administration instructions! , Glucose less than 70 instructions: Obtain STAT lab blood glucose and call covering provider., Glucose 80-150 (units): 0, Glucose 151-200 (units): 2, Glucose 201-250 (units): 4, Glucose 251-300 (units): 6, Glucose greater than 300 (units): 8, Glucose greater than 300 instructions: Give suggested insulin dose and call covering provider. Ioversol (Optiray 350) 74 % inj 30 mL 30 mL, Intracoronary, ONCE, On Wed04/16/23 at 1530, For 1 dose, Intra-Op Given 04/16/2023 2:50 PM EST 30 mL Iron Sucrose (Venofer) 200 mg in NSS 100 mL ivpb 200 mg, IV Piggyback, ONCE, 1 dose, On Wed04/16/23 at 0930, Administer over 60 Minutes New Bag 04/16/2023 9:30 AM EST 200 mg 110 mL/hr Iron Sucrose (Venofer) 200 mg in NSS 100 mL ivpb 200 mg, IV Piggyback, Daily(AM), 4 doses, First dose on Wed04/17/23 at 0900, Last dose on Wed04/20/23 at 0900, Administer over 60 Minutes New Bag 04/18/2023 9:08 AM EST 200 mg 110 mL/hr New Bag 04/17/2023 9:15 AM EST 200 mg 110 mL/hr isosorbide mononitrate SA (Imdur) tab 60 mg 60 mg, Oral, Daily(AM), First dose on Wed04/16/23 at 0900, Until Discontinued, Hold for 24 hours prior to Stress Test and notify service if dose is held This med should NOT be Crushed or Chewed Given 04/18/2023 9:07 AM EST 60 mg Given 04/17/2023 9:14 AM EST 60 mg Given 04/16/2023 9:29 AM EST 60 mg metoprolol succinate XL (toPROL XL) tab 25 mg 25 mg, Oral, Daily(AM), First dose on Wed04/16/23 at 1115, Until Discontinued, Hold for HR less than 60 or SBP below 100 and notify service if dose is held This med should NOT be Crushed or Chewed. Given 04/18/2023 9:06 AM EST 25 mg Given 04/17/2023 9:14 AM EST 25 mg Given 04/16/2023 11:50 AM EST 25 mg midazolam (Versed) 2 MG/2ML inj 1 mg 1 mg, IV Push, PRN Anxiety, Starting on Wed04/16/23 at 1424, Until Wed04/16/23 at 1519, For 2 hours, To be administered in [employer] intra-procedure only, Intra-Op Given 04/16/2023 2:27 PM EST 1 mg oxyCODONE (Oxy IR) tab 5 mg 5 mg, Oral, ONCE, On Wed04/16/23 at 2015, For 1 dose Given 04/16/2023 7:53 PM EST 5 mg oxygen GAS Inhalation, OXYGEN, First dose on Wed04/16/23 at 0015, Until Discontinued, Device/Managed by: Low Flow Device, Goal SPO2 (%): 91-95, Starting Device: Nasal Cannula, Initial Flow Rate (LPM): 2, Lowest Support: Nasal Cannula: Flow 0-6 LPM. Titrate up/down by 1 LPM., Titration Interval: Q2 minutes and as needed., Notify Provider: For sudden DECREASE in resting SPO2 to less than 85% and when escalating delivery device., Wean patient off Oxygen when the oxygen saturation is greater than or equal to 93% Oxygen On 04/17/2023 12:00 AM EST Oxygen On 04/16/2023 4:00 PM EST Roflumilast (Daliresp) tab 500 mcg 500 mcg, Oral, Daily(AM), First dose on Wed04/16/23 at 0900, Until Discontinued Given 04/18/2023 9:08 AM EST 500 mcg Given 04/17/2023 9:14 AM EST 500 mcg Given 04/16/2023 9:30 AM EST 500 mcg umeclidinium Cascade (INCRUSE ellipta) 62.5 MCG/ACT inhaler 2 Puff 2 Puff, Inhalation, RESPDAILY, First dose on Wed04/16/23 at 0800, Until Discontinued, NURSING TO FOLLOW PATIENT WITH MDI/DPI ADMINISTRATION Do not swallow! For Inhalation Only! Must use 2 inh per cap to receive full 18 mcg dose!!! Store in Blister, Do not store in inhaler. Remove capsules immediately before use. Given 04/18/2023 9:09 AM EST 2 Puffs Given 04/17/2023 9:15 AM EST 2 Puffs Given 04/16/2023 7:44 AM EST 2 Puffs Valsartan (Diovan) tab 20 mg 20 mg, Oral, BID (.AM/PM), First dose on 04/17/23 at 1015, Until Discontinued Given 04/18/2023 9:07 AM EST 20 mg Given 04/17/2023 10:35 AM EST 20 mg documented in this encounter Active and Recently Administered Medications Times are shown in EST. Scheduled Medication Order 04/16/2023 04/17/2023 04/18/2023 Apixaban (Eliquis) tab 5 mg 5 mg, Oral, BID (.AM/PM), First dose on Wed04/17/23 at 2100, Until Discontinued 2004 (Given - Provider: Josee Florez RN) 09 (Given - Provider: Pat Donahue, RN) aspirin chew tab 81 mg 81 mg, Oral, Daily(AM), First dose on Wed04/16/23 at 0900, Until Discontinued 09 (Given - Provider: OFE Woo) 0914 (Given - Provider: Pat Donahue, RN) 0906 (Given - Provider: Pat Donahue, RN) atorvaSTATin (Lipitor) tab 80 mg 80 mg, Oral, Q1700, First dose on Wed04/16/23 at 1700, Until Discontinued 1842 (Given - Provider: OFE Woo) 175 (Given - Provider: Pat Donahue, RN) clopidogrel (pLAVix) tab 300 mg (COMPLETED) 300 mg, Oral, ONCE, On 04/17/23 at 1000, For 1 dose 1035 (Given - Provider: Pat Donahue RN) clopidogrel (pLAVix) tab 75 mg 75 mg, Oral, Daily(AM), First dose on Wed04/18/23 at 0915, Until Discontinued 914 (Given - Provider: Pat Donahue RN) FLUoxetine (PROzac) cap 60 mg 60 mg, Oral, Daily(AM), First dose on Wed04/16/23 at 0900, Until Discontinued 928 (Given - Provider: OFE Woo) 09 (Given - Provider: Pat Donahue RN) 09 (Given - Provider: Pat Donahue RN) fluticasone furoate-vilanterol (BREO ellipta) 200-25 MCG/ACT inhaler 1 Puff 1 Puff, Inhalation, Daily(AM), First dose on Wed04/16/23 at 0900, Until Discontinued, NURSING TO FOLLOW PATIENT WITH MDI/DPI ADMINISTRATION 0744 (Given - Provider: Joyce Anders, SOCIAL WORKER [employer]ION) 914 (Given - Provider: Pat Donahue RN) 908 (Given - Provider: Pat Donahue RN) Furosemide (Lasix) inj 40 mg (CANCELED) 40 mg, IV Push, Daily(AM), First dose on Wed04/16/23 at 0900, Until Discontinued 929 (Given - Provider: OFE Woo) Furosemide (Lasix) inj 40 mg 40 mg, IV Push, BID (0900, 1600), First dose (after last modification) on Wed04/16/23 at 1600, Until Discontinued 184 (Given - Provider: OFE oWo) 09 (Given - Provider: Pat Donahue RN)170 (Not Given - Provider: Pat Donahue RN - Reason: Parameter(s) Not Met - Comment: held per Dr. Monsivais cardiology service) 09 (Given - Provider: Pat Donahue RN) Gabapentin (Neurontin) cap 300 mg 300 mg, Oral, HS, First dose on Wed04/16/23 at 0015, Until Discontinued 41 (Given - Provider: Carrie Danielson, BECKY)2130 (Given - Provider: Bridgette Dawkins RN) 2104 (Given - Provider: Josee Florez RN) insulin aspart (NovoLOG) inj (CANCELED) Subcutaneous, Q6H, First dose on Wed04/16/23 at 0015, Until Discontinued, MEDIUM DOSE (Usual starting dose): Sliding Scale Correctional insulin may be given if the patient is NPO. Dose based on standard build from Insulin Calculator. Do not modify insulin doses in administration instructions! , Glucose less than 70 instructions: Obtain STAT lab blood glucose and call covering provider., Glucose 80-150 (units): 0, Glucose 151-200 (units): 2, Glucose 201-250 (units): 4, Glucose 251-300 (units): 6, Glucose greater than 300 (units): 8, Glucose greater than 300 instructions: Give suggested insulin dose and call covering provider. 0015 (Not Given - Provider: Carrie Danielson RN - Reason: Parameter(s) Not Met)0600 (Not Given - Provider: Carrie Danielson RN - Reason: Parameter(s) Not Met)1200 (No Insulin - Provider: OFE Woo - Reason: Parameter(s) Not Met - Comment: [phone] (Not Given - Provider: OFE Woo - Reason: Parameter(s) Not Met - Comment: [phone]) 0000 (Not Given - Provider: Bridgette Dawkins RN - Reason: Parameter(s) Not Met)0800 (No Insulin - Provider: Pat Donahue RN - Reason: Parameter(s) Not Met)1200 (No Insulin - Provider: Pat Donahue RN - Reason: Parameter(s) Not Met)1754 (Given - Provider: Pat Donahue RN) insulin aspart (NovoLOG) inj Subcutaneous, ACHS, First dose (after last modification) on Wed04/17/23 at 2200, Until Discontinued, MEDIUM DOSE (Usual starting dose): Sliding Scale Correctional insulin may be given if the patient is NPO. Dose based on standard build from Insulin Calculator. Do not modify insulin doses in administration instructions! , Glucose less than 70 instructions: Obtain STAT lab blood glucose and call covering provider., Glucose 80-150 (units): 0, Glucose 151-200 (units): 2, Glucose 201-250 (units): 4, Glucose 251-300 (units): 6, Glucose greater than 300 (units): 8, Glucose greater than 300 instructions: Give suggested insulin dose and call covering provider. 2200 (Not Given - Provider: Josee Florez RN - Reason: Parameter(s) Not Met) 0730 (No Insulin - Provider: Pat Donahue RN - Reason: Parameter(s) Not Met)1130 (Not Given - Provider: Pat Donahue RN - Reason: Parameter(s) Not Met) Ioversol (Optiray 350) 74 % inj 30 mL (COMPLETED) 30 mL, Intracoronary, ONCE, On Wed04/16/23 at 1530, For 1 dose, Intra-Op 1450 (Given - Provider: Sandee Desir RN) Iron Sucrose (Venofer) 200 mg in NSS 100 mL ivpb (COMPLETED) 200 mg, IV Piggyback, ONCE, 1 dose, On Wed04/16/23 at 0930, Administer over 60 Minutes 0930 (New Bag - Provider: OFE Woo) Iron Sucrose (Venofer) 200 mg in NSS 100 mL ivpb 200 mg, IV Piggyback, Daily(AM), 4 doses, First dose on Wed04/17/23 at 0900, Last dose on Wed04/20/23 at 0900, Administer over 60 Minutes 0915 (New Bag - Provider: Pat Donahue RN) 0908 (New Bag - Provider: Pat Donahue RN) isosorbide mononitrate SA (Imdur) tab 60 mg 60 mg, Oral, Daily(AM), First dose on Wed04/16/23 at 0900, Until Discontinued, Hold for 24 hours prior to Stress Test and notify service if dose is held This med should NOT be Crushed or Chewed 0929 (Given - Provider: OFE Woo) 0914 (Given - Provider: Pat Donahue, RN) 0907 (Given - Provider: Pat Donahue, RN) metoprolol succinate XL (toPROL XL) tab 25 mg 25 mg, Oral, Daily(AM), First dose on Wed04/16/23 at 1115, Until Discontinued, Hold for HR less than 60 or SBP below 100 and notify service if dose is held This med should NOT be Crushed or Chewed. 1150 (Given - Provider: OFE Woo) 0914 (Given - Provider: Pat Donahue, RN) 0906 (Given - Provider: Pat Donahue, RN) oxyCODONE (Oxy IR) tab 5 mg (COMPLETED) 5 mg, Oral, ONCE, On Wed04/16/23 at 2015, For 1 dose 1952 (Given - Provider: Bridgette Dawkins RN) oxygen GAS Inhalation, OXYGEN, First dose on Wed04/16/23 at 0015, Until Discontinued, Device/Managed by: Low Flow Device, Goal SPO2 (%): 91-95, Starting Device: Nasal Cannula, Initial Flow Rate (LPM): 2, Lowest Support: Nasal Cannula: Flow 0-6 LPM. Titrate up/down by 1 LPM., Titration Interval: Q2 minutes and as needed., Notify Provider: For sudden DECREASE in resting SPO2 to less than 85% and when escalating delivery device., Wean patient off Oxygen when the oxygen saturation is greater than or equal to 93% 0015 (Oxygen Off - Provider: Carrie Danielson RN)0800 (Oxygen Off - Provider: OFE Woo)1600 (Oxygen On - Provider: OFE Woo) 0000 (Oxygen On - Provider: Bridgette Dawkins RN)0800 (Oxygen Off - Provider: Pat Donahue RN)1600 (Oxygen Off - Provider: Pat Donahue RN) 0000 (Oxygen Off - Provider: Josee Florez RN)0800 (Oxygen Off - Provider: Pat Donahue, BECKY) Roflumilast (Daliresp) tab 500 mcg 500 mcg, Oral, Daily(AM), First dose on Wed04/16/23 at 0900, Until Discontinued 0930 (Given - Provider: OFE Woo) 0914 (Given - Provider: Pat Donahue, BECKY) 09 (Given - Provider: Pta Donahue, RN) umeclidinium Cascade (INCRUSE ellipta) 62.5 MCG/ACT inhaler 2 Puff 2 Puff, Inhalation, RESPDAILY, First dose on Wed04/16/23 at 0800, Until Discontinued, NURSING TO FOLLOW PATIENT WITH MDI/DPI ADMINISTRATION Do not swallow! For Inhalation Only! Must use 2 inh per cap to receive full 18 mcg dose!!! Store in Blister, Do not store in inhaler. Remove capsules immediately before use. 743 (Given - Provider: Joyce Anders, SOCIAL WORKER [employer]) 0915 (Given - Provider: Pat Donahue, RN) 0909 (Given - Provider: Pat Donahue, RN) Valsartan (Diovan) tab 20 mg 20 mg, Oral, BID (.AM/PM), First dose on 04/17/23 at 1015, Until Discontinued 1035 (Given - Provider: Pat Donahue, RN)2100 (Not Given - Provider: Josee Florez RN - Reason: Parameter(s) Not Met - Comment: ok to hold per Ronak Dalal, cardiology) 0907 (Given - Provider: Pat Donahue, RN) Continuous Medication Order 04/16/2023 04/17/2023 04/18/2023 hEParin 25,000 units in 250 mL (aPTT-Cardiac) infusion (CANCELED) Intravenous, at 0-23.34 mL/hr, Start heparin as soon as baseline labs are drawn. Please select this medication from the infusion pump library! Concentration: 100 units/mL Expires 96 hours after spiking on (date) at (hour) , TITRATE, Starting on Rebecca 04/15/23 at 2245, Until 04/17/23 at 0929 0732 (Rate Change - Provider: Carrie Danielson RN - Comment: nurse change)1957 (Restarted - Provider: Bridgette Dawkins, BECKY - Comment: tosin Chandra on cardiology) 0554 (New Bag - Provider: Bridgette Dawkins, BECKY)0721 (Nurse Change - Provider: Pat Donahue, BECKY) PRN Medication Order 04/16/2023 04/17/2023 04/18/2023 dextrose 50 % inj 25 mL 25 mL, IV Push, PRN Hypoglycemia, Other, For blood glucose 54 - 69 mg/dL or 70 - 100 mg/dL with symptoms AND patient is unresponsive, NPO, OR unable to swallow, Starting on Rebecca 04/15/23 at 2337, Until 04/18/23 at 1907, Administer IV. Recheck blood glucose after 15 minutes. Notify provider. dextrose 50 % inj 50 mL 50 mL, IV Push, PRN Hypoglycemia, Other, For blood glucose below 54 mg/dL AND patient unresponsive, NPO, OR unable to swallow, Starting on [place] 12/28/23 at 2337, Until Wed04/18/23 at 1907, Administer IV. Recheck blood glucose in 15 minutes. Notify provider. fentaNYL (PF) inj 25 mcg (CANCELED) 25 mcg, IV Push, PRN Pain, Severe, Starting on Wed04/16/23 at 1424, Until Wed04/16/23 at 1519, For 2 hours, To be administered in [employer] intra-procedure only When given IV Push its recommended that the dose be given over 3 to 5 minutes., Intra-Op 1427 (Given - Provider: Cata Weiner, BECKY) glucagon (Glucagen) inj 1 mg 1 mg, Intramuscular, PRN Hypoglycemia, Other, If patient is unresponsive, or NPO and has no IV access, Starting on Wed04/15/23 at 2337, Until Wed04/18/23 at 190, NPO and no IV access with either 1) blood glucose less than 100 mg/dL and symptomatic OR 2) blood glucose less than 70 mg/dL and asymptomatic Glucose (Glutose 15) 40 % gel 15 g of glucose 15 g of glucose, Oral, PRN Hypoglycemia (low sugar), Other, For blood glucose 54 - 69 mg/dL or 70 - 100 mg/dL with symptoms AND patient alert WITH difficulty chewing/swallowing, Starting on Rebecca 04/15/23 at 2337, Until Wed04/18/23 at 190, Administer gel. Recheck blood glucose after 15 minutes. Notify provider. 37.5 gram tube = 15 grams glucose = 1 each Glucose (Glutose 15) 40 % gel 30 g of glucose 30 g of glucose, Oral, PRN Hypoglycemia (low sugar), Other, For blood glucose below 54 mg/dL AND patient alert WITH difficulty chewing/swallowing, Starting on Rebecca 04/15/23 at 2337, Until Wed04/18/23 at 190, Administer gel. Recheck blood glucose after 15 minutes. Notify provider. 37.5 gram tube = 15 grams glucose = 1 each glucose chew tab 16 g 16 g, Oral, PRN Hypoglycemia, Other, For blood glucose 54 - 69 mg/dL or 70 - 100 mg/dL with symptoms and patient alert without difficulty chewing/swallowing., Starting on Rebecca 04/15/23 at 2337, Until Wed04/18/23 at 1907 hEParin 1000 UNIT/ML inj 2,300 Units (CANCELED) 2,300 Units (rounded from 2,334 Units = 30 Units/kg 77.8 kg Adjusted weight), IV Push, PRN Other, If most recent aPTT result is less than or equal to 55 seconds, Starting on Rebecca 04/15/23 at 2200, Until 04/17/23 at 0929, Repeat aPTT 6 hours after bolus is administered. Send message to pharmacy if dose needed. 09 (Given - Provider: FRANCA WooN) hEParin inj 5,000 Units (CANCELED) 5,000 Units, IV Push, PRN Other, Anticoagulation not at goal, Starting on Wed04/16/23 at 1424, Until Wed04/16/23 at 1519, For 2 hours, To be administered in [employer] intra-procedure., Intra-Op 1438 (Given - Provider: Cata Weiner, BECKY) midazolam (Versed) 2 MG/2ML inj 1 mg (CANCELED) 1 mg, IV Push, PRN Anxiety, Starting on 04/16/23 at 1424, Until 04/16/23 at 1519, For 2 hours, To be administered in [employer] intra-procedure only, Intra-Op 1427 (Given - Provider: Cata Weiner, BECKY) documented in this encounter Additional Health Concerns Infection Onset Date Last Indicated Resolved Time Respiratory Rule-Out 04/15/2023 04/16/2023 023 1:47 AM EST COVID-19 Rule-Out 04/15/2023 04/16/2023 04/16/2023 1:47 AM EST documented as of this encounter Advance Directives Documents on File Type Date Recorded 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 Care Teams Lath Hand Relationship Specialty Start Date End Date Johnnie Newby MD [address] [place] [id number] PCP - General Family Medicine 09/13/20 documented as of this encounter
--- OUTSIDE RECORDS SUMMARY | 2023-07-12 18:52 | External Medical Summary ---
Author Name Unknown Address Unknown Organization [id number]:[facility]ORY [facility] [place] [facility] - [address] [address] Laboratory Report Ordering Provider Test Date Status SHOBHA ESTRELLA 04/16/2023 15:44:00 Final Observation Date Value Abnormality Reference (Units ) Status ABO 04/16/2023 15:44:00 A Final RH 04/16/2023 15:44:00 Positive Final RED BLOOD CELL ANTIBODY SCREEN 04/16/2023 15:44:00 Negative Final SPECIMEN EXPIRATION DATE 04/16/2023 15:44:00 04/19/2023 23:59 Final Performing Location [facility] [place] [facility] - [address] [address]
--- OUTSIDE RECORDS SUMMARY | 2023-07-12 18:52 | External Medical Summary ---
Author Name Unknown Address Unknown Organization : Laboratory Report Ordering Provider Test Date Status MARY COURTNEY 04/18/2023 07:17:11 Final Observation Date Value Abnormality Reference (Units ) Status Glucose Point of Care 04/18/2023 07:17:11 105 70-120 (mg/dL) Final Performing Location
--- OUTSIDE RECORDS SUMMARY | 2023-07-12 18:52 | External Medical Summary ---
Author Name Unknown Address Unknown Organization [id number]:[place] [place] [address] [facility] [address] Laboratory Report Ordering Provider Test Date Status SHOBHA ESTRELLA 04/16/2023 15:45:00 Final Observation Date Value Abnormality Reference (Units ) Status TSH 04/16/2023 15:45:00 3.24 0.27-4.20 (uIU/mL) Final Performing Location LABORATORY [facility] - [address] [facility] [address]
--- OUTSIDE RECORDS SUMMARY | 2023-07-12 18:52 | External Medical Summary ---
Author Name Unknown Address Unknown Organization K01:[facility] [place] [facility] [address] [facility] [address] Laboratory Report Ordering Provider Test Date Status MELVIN CAROLINA 04/17/2023 06:29:00 Final Observation Date Value Abnormality Reference (Units ) Status BUN 04/17/2023 06:29:00 30 Above high normal 6-20 (mg/dL) Final Creatinine 04/17/2023 06:29:00 1.7 Above high normal 0.6-1.2 (mg/dL) Final Glomerular filtration rate/1.73 sq M.predicted [Volume Rate/Area] in Serum, Plasma or Blood by Creatinine-based formula (CKD-EPI) 04/17/2023 06:29:00 40 Below low normal >=60 (mL/min) Final eGFR is calculated based on the CKD-EPI 2020 equation SODIUM 04/17/2023 06:29:00 141 135-146 (m mol/L) Final Potassium 04/17/2023 06:29:00 4.1 3.5-5.1 (m mol/L) Final Cl 04/17/2023 06:29:00 103 98-107 (mm ol/L) Final CO2 04/17/2023 06:29:00 26 22-32 (mmo l/L) Final Anion gap 04/17/2023 06:29:00 12 7-15 (mmol /L) Final Glucose 04/17/2023 06:29:00 102 70-120 (mg /dL) Final Calcium 04/17/2023 06:29:00 9.0 8.4-10.2 ( mg/dL) Final Performing Location [facility] [place] [address] [place] [address]
--- OUTSIDE RECORDS SUMMARY | 2023-07-12 18:52 | External Medical Summary ---
Author Name Unknown Address Unknown Organization : Laboratory Report Ordering Provider Test Date Status MARY COURTNEY 04/18/2023 11:14:16 Final Observation Date Value Abnormality Reference (Units ) Status Glucose Point of Care 04/18/2023 11:14:16 113 70-120 (mg/dL) Final Performing Location
--- OUTSIDE RECORDS SUMMARY | 2023-07-12 18:52 | External Medical Summary ---
Author Name Unknown Address Unknown Organization K01:[facility] [place] [facility] [place] [address] [address] Laboratory Report Ordering Provider Test Date Status SHOBHA ESTRELLA 04/16/2023 15:44:00 Final Observation Date Value Abnormality Reference (Units ) Status ABO 04/16/2023 15:44:00 A Final RH 04/16/2023 15:44:00 Positive Final Performing Location [facility] [place] [facility] [facility] [place] [address] [address]
--- OUTSIDE RECORDS SUMMARY | 2023-07-12 18:52 | External Medical Summary ---
Author Name Unknown Address Unknown Organization : Laboratory Report Ordering Provider Test Date Status SHOBHA ESTRELLA 04/16/2023 15:45:00 Final Observation Date Value Abnormality Reference (Units ) Status Performing Location
--- OUTSIDE RECORDS SUMMARY | 2023-07-12 18:52 | External Medical Summary ---
Author Name Unknown Address Unknown Organization K01:[facility]ATORY [facility] [place] - [address] [address] Laboratory Report Ordering Provider Test Date Status CAITYSASHA 04/17/2023 06:29:00 Final Warfarin Therapy
INR: 2 .0-3.0 conventional anticoagulation
INR: 2.5- 3.5 high intensity anticoagulation Observation Date Value Abnormality Reference (Units ) Status PT 04/17/2023 06:29:00 13.3 11.6-15.2 (seconds) Final INR 04/17/2023 06:29:00 1.0 0.8-1.2 Final Performing Location [facility]ORY [facility] [place] - [address] [place] [address]
--- OUTSIDE RECORDS SUMMARY | 2023-07-12 18:52 | External Medical Summary ---
Author Name Unknown Address Unknown Organization : Laboratory Report Ordering Provider Test Date Status MARY COURTNEY 04/16/2023 21:18:23 Final Observation Date Value Abnormality Reference (Units ) Status Glucose Point of Care 04/16/2023 21:18:23 109 70-120 (mg/dL) Final Performing Location
--- OUTSIDE RECORDS SUMMARY | 2023-07-12 18:52 | External Medical Summary ---
Author Name Unknown Address Unknown Organization K01:[facility] [place] - [facility] [place] [address] [facility] [address] Laboratory Report Ordering Provider Test Date Status MELVIN CAROLINA 04/17/2023 06:29:00 Final Observation Date Value Abnormality Reference (Units ) Status WBC, Total 04/17/2023 06:29:00 5.49 4.00-10.80 (K/uL) Final RBC 04/17/2023 06:29:00 3.42 4.50-5.25 (M/uL) Final Hemoglobin 04/17/2023 06:29:00 8.8 Below low normal 14.0-16.8 (g/dL) Final HCT 04/17/2023 06:29:00 29.8 Below low normal 40.0-48.4 (%) Final MCV 04/17/2023 06:29:00 87.1 82.0-99.5 (fL) Final MCH 04/17/2023 06:29:00 25.7 27.0-34.0 (pg) Final MCHC 04/17/2023 06:29:00 29.5 32.0-36.0 (g/dL) Final RDW 04/17/2023 06:29:00 18.4 11.5-15.5 (%) Final Platelets 04/17/2023 06:29:00 227 140-400 (K/uL) Final MPV 04/17/2023 06:29:00 8.9 6.6-11.1 (fL) Final Nucleated erythrocytes/100 leukocytes [Ratio] in Blood by Automated count 04/17/2023 06:29:00 0 <=0 (/100 WBCs) Final Performing Location [facility] [place] - [address] [place] [address]
--- OUTSIDE RECORDS SUMMARY | 2023-07-12 18:52 | External Medical Summary ---
Author Name Unknown Address Unknown Organization K01:LABORATORY [facility] [place] - [address] [address] Laboratory Report Ordering Provider Test Date Status MELVIN CAROLINA 04/17/2023 07:42:00 Final Get stat/now aPTT [address] each heparin dose adjustment

Anticoagulation may affect testing. Refer to [employer] Test Catalog for a list of effects. Observation Date Value Abnormality Reference (Units ) Status aPTT panel - Platelet poor plasma 04/17/2023 07:42:00 39 Above high normal 21-38 (seconds) Final Performing Location [facility] [place] - [facility] [address] [address]
--- OUTSIDE RECORDS SUMMARY | 2023-07-12 18:52 | External Medical Summary ---
Author Name Unknown Address Unknown Organization K01:[facility] [place] - [facility] [address] [facility] [address] Laboratory Report Ordering Provider Test Date Status MARIA LUISA SHEARER 04/16/2023 20:56:00 Final Observation Date Value Abnormality Reference (Units ) Status BUN 04/16/2023 20:56:00 29 Above high normal 6-20 (mg/dL) Final Creatinine 04/16/2023 20:56:00 1.6 Above high normal 0.6-1.2 (mg/dL) Final Glomerular filtration rate/1.73 sq M.predicted [Volume Rate/Area] in Serum, Plasma or Blood by Creatinine-based formula (CKD-EPI) 04/16/2023 20:56:00 44 Below low normal >=60 (mL/min) Final eGFR is calculated based on the CKD-EPI 2020 equation SODIUM 04/16/2023 20:56:00 139 135-146 (m mol/L) Final Potassium 04/16/2023 20:56:00 4.7 3.5-5.1 (m mol/L) Final Cl 04/16/2023 20:56:00 102 98-107 (mm ol/L) Final CO2 04/16/2023 20:56:00 25 22-32 (mmo l/L) Final Anion gap 04/16/2023 20:56:00 12 7-15 (mmol /L) Final Glucose 04/16/2023 20:56:00 114 70-120 (mg /dL) Final Calcium 04/16/2023 20:56:00 9.1 8.4-10.2 ( mg/dL) Final Performing Location [facility] [place] - [address] [facility] [address]
--- OUTSIDE RECORDS SUMMARY | 2023-07-12 18:52 | External Medical Summary ---
Author Name Unknown Address Unknown Organization K01:[facility] [place] - [address] [address] Laboratory Report Ordering Provider Test Date Status MARKYLAMONTSIRSASHA 04/18/2023 05:48:00 Final Warfarin Therapy
INR: 2 .0-3.0 conventional anticoagulation
INR: 2.5- 3.5 high intensity anticoagulation Observation Date Value Abnormality Reference (Units ) Status PT 04/18/2023 05:48:00 14.5 11.6-15.2 (seconds) Final INR 04/18/2023 05:48:00 1.1 0.8-1.2 Final Performing Location [facility] [place] - [address] [place] [address]
--- OUTSIDE RECORDS SUMMARY | 2023-07-12 18:52 | External Medical Summary ---
Author Name Unknown Address Unknown Organization K01[place] [place] [address] [address] Laboratory Report Ordering Provider Test Date Status SHOBHA ESTRELLA 04/16/2023 15:45:00 Final Observation Date Value Abnormality Reference (Units ) Status WBC, Total 04/16/2023 15:45:00 7.82 4.00-10.8 0 (K/uL) Final RBC 04/16/2023 15:45:00 3.25 4.50-5.25 (M/uL) Final Hemoglobin 04/16/2023 15:45:00 8.5 Below low normal 14 .0-16.8 (g/dL) Final Anemia reflex testing trigge rs on a HGB < 12.0 for Females and HGB < 13.0 for Males in accordance with the WHO Anemia Guidelines
Anemia reflex testing triggers on a HGB < 12.0 for Females and HGB < 13.0 for Males in accordance with the WHO Anemia Guidelines HCT 04/16/2023 15:45:00 28.3 Below low normal 40. 0-48.4 (%) Final MCV 04/16/2023 15:45:00 87.1 82.0-99.5 (fL) Final MCH 04/16/2023 15:45:00 26.2 27.0-34.0 (pg) Final MCHC 04/16/2023 15:45:00 30.0 32.0-36.0 (g/dL) Final RDW 04/16/2023 15:45:00 18.2 11.5-15.5 (%) Final Platelets 04/16/2023 15:45:00 246 140-400 (K /uL) Final MPV 04/16/2023 15:45:00 9.4 6.6-11.1 ( fL) Final Nucleated erythrocytes/100 leukocytes [Ratio] in Blood by Automated count 04/16/2023 15:45:00 0 <=0 (/100 WBCs) Final Performing Location [facility] [place] [address] [facility] [address]
--- OUTSIDE RECORDS SUMMARY | 2023-07-12 18:52 | External Medical Summary ---
Author Name Unknown Address Unknown Organization K01:LABORATORY [facility] [place] - [address] [address] Laboratory Report Ordering Provider Test Date Status SHOBHA ESTRELLA 04/16/2023 15:45:00 Final Observation Date Value Abnormality Reference (Units ) Status Albumin 04/16/2023 15:45:00 3.7 Below low normal 3.8-5.0 (g/dL) Final AST (Aspartate aminotransferase) 04/16/2023 15:45:00 26 10-50 (U/L) Final Alk Phos 04/16/2023 15:45:00 111 35-130 (U/L) Final ALT (Alanine aminotransferase) 04/16/2023 15:45:00 19 10-50 (U/L) Final Bilirubin, Total 04/16/2023 15:45:00 0.3 <=1.2 (mg/dL) Final Bilirubin, Direct 04/16/2023 15:45:00 <0.2 0.0-0.3 (mg/dL) Final Protein 04/16/2023 15:45:00 6.2 6.0-8.3 (g/dL) Final Performing Location LABORATORY [facility] [place] - [address] [address]
--- OUTSIDE RECORDS SUMMARY | 2023-07-12 18:52 | External Medical Summary ---
Author Name Unknown Address Unknown Organization K01:[facility] [place] [address] [place] [address] Laboratory Report Ordering Provider Test Date Status SHOBHA ESTRELLA 04/16/2023 15:45:00 Final Warfarin Therapy
INR: 2 .0-3.0 conventional anticoagulation
INR: 2.5- 3.5 high intensity anticoagulation Observation Date Value Abnormality Reference (Units ) Status PT 04/16/2023 15:45:00 14.9 11.6-15.2 (seconds) Final INR 04/16/2023 15:45:00 1.2 0.8-1.2 Final Performing Location [facility] [place] [address] [place] [address]
--- OUTSIDE RECORDS SUMMARY | 2023-07-12 18:52 | External Medical Summary ---
Author Name Unknown Address Unknown Organization : Laboratory Report Ordering Provider Test Date Status MARY COURTNEY 04/17/2023 12:05:13 Final Observation Date Value Abnormality Reference (Units ) Status Glucose Point of Care 04/17/2023 12:05:13 106 70-120 (mg/dL) Final Performing Location
--- OUTSIDE RECORDS SUMMARY | 2023-07-12 18:52 | External Medical Summary ---
Author Name Unknown Address Unknown Organization K01:[facility] [place] - [facility] [address] [facility] [address] Laboratory Report Ordering Provider Test Date Status MELVIN CAROLINA 04/18/2023 05:48:00 Final Observation Date Value Abnormality Reference (Units ) Status WBC, Total 04/18/2023 05:48:00 6.82 4.00-10.80 (K/uL) Final RBC 04/18/2023 05:48:00 3.30 4.50-5.25 (M/uL) Final Hemoglobin 04/18/2023 05:48:00 8.5 Below low normal 14.0-16.8 (g/dL) Final HCT 04/18/2023 05:48:00 28.9 Below low normal 40.0-48.4 (%) Final MCV 04/18/2023 05:48:00 87.6 82.0-99.5 (fL) Final MCH 04/18/2023 05:48:00 25.8 27.0-34.0 (pg) Final MCHC 04/18/2023 05:48:00 29.4 32.0-36.0 (g/dL) Final RDW 04/18/2023 05:48:00 18.1 11.5-15.5 (%) Final Platelets 04/18/2023 05:48:00 239 140-400 (K/uL) Final MPV 04/18/2023 05:48:00 9.7 6.6-11.1 (fL) Final Nucleated erythrocytes/100 leukocytes [Ratio] in Blood by Automated count 04/18/2023 05:48:00 0 <=0 (/100 WBCs) Final Performing Location [facility] [place] - [address] [place] [address]
--- OUTSIDE RECORDS SUMMARY | 2023-07-12 18:52 | External Medical Summary | Summary of Care ---
Author Name Unknown Organization [facility] Address [address] [place] [address] Phone [phone] Care Team Providers Care Sleep Technician Name Role Phone Johnnie Newby MD Primary Care Provider [phone] Reason for Visit * Auth/Cert Specialty Diagnoses / Procedures Referred By Contac t Referred To Contact Diagnoses NSTEMI (non-ST elevated myocardial infarction) (HCC) NSTEMI Referral ID Status Reason Start Date Expiration Date Visits Re quested Visits Authorized [id number] Encounter Details Date Type Department Care Team (Latest Contact Info) Description 04/17/2023 9:25 AM EST - 04/17/2023 11:59 PM EST Hospital Encounter Cardiac Studies [facility] [address] [place] [address] Discharge Disposition: Home - Self Care Allergies Active Allergy Reactions Criticality Noted Date Comments Acetaminophen 05/06/2005 headaches documented as of this encounter (statuses as of 04/18/2023) Medications Medication Sig Dispensed Refills Start Date End Date Status DAILY MULTIVITAMIN PO TABS with lycopene 0 Suspended BUSPAR 15 MG PO TABS Take by mouth. Uses as needed 0 Suspended clonazePAM (KLONOPIN) 0.5 MG Tablet Uses as needed 0 7 Suspended ONETOUCH ULTRA BLUE STRPIndications:Ty pe 2 diabetes mellitus with hemoglobin A1c goal of less than 7.0% ([facility]) TEST ONCE DAILY 100 Strip 5 8 Suspended Additional Information Ventolin HFA 108 (90 Base) MCG/ACT Inhalation Aerosol SolutionIndication s:COPD, moderate ([facility]) Take 2 Puffs by mouth 4 times a day as needed for Shortness of Breath or Wheezing. 54 g 1 1 Suspended Additional Information Mirtazapine 15 MG Oral Tablet (Remeron) Take one and half tablets by mouth daily at bedtime 0 1 Suspended Gabapentin 300 MG Oral Capsule (Neurontin) Take by mouth 1 Capsule before bedtime. 90 Capsule 3 2 Suspended Additional Information BiPAP every night at bedtime. 0 Suspended Vitamin B-12 1000 MCG Oral Tablet (Cyanocobalamin) Take 1 Tablet by mouth in the morning. 0 Suspended Isosorbide Mononitrate ER 60 MG Oral Tablet Extended Release 24 Hour (Imdur)Indications :Coronary artery disease involving yomb[place] shoshone coronary artery without angina pectoris TAKE ONE TABLET BY MOUTH EVERY MORNING 90 Tablet 3 3 024 Suspended Additional Information Lisinopril 20 MG Oral Tablet (Prinivil)Indicati ons:HTN, goal below 140/90 TAKE ONE TABLET BY MOUTH EVERY MORNING 90 Tablet 2 3 024 Suspended Additional Information metFORMIN HCl 1000 MG Oral Tablet (Glucophage) TAKE ONE TABLET BY MOUTH EVERY MORNING 100 Tablet 1 3 024 Suspended Additional Information FLUoxetine HCl 20 MG Oral Capsule (PROzac) TAKE THREE CAPSULES BY MOUTH EVERY MORNING 270 Capsule 0 3 024 Suspended Additional Information Tiotropium [place] Monohydrate 18 MCG Inhalation Capsule (Spiriva) INHALE ONE CAPSULE VIA HANDIHALER EVERY MORNING. DO NOT SWALLOW CAPSULE. 90 Capsule 3 3 024 Suspended Additional Information Fluticasone-Salmet gume 230-21 MCG/ACT Inhalation Aerosol (Advair)Indication s:COPD, group B, by GOLD 2017 classification ([facility]) INHALE TWO PUFFS BY MOUTH EVERY MORNING AND INHALE TWO PUFFS BY MOUTH AT BEDTIME, RINSE MOUTH AFTER USE 36 g 3 2 024 Suspended Additional Information Roflumilast 500 MCG Oral Tablet (Daliresp)Indicati ons:COPD, group D, by GOLD 2017 classification ([facility]) TAKE ONE TABLET BY MOUTH EVERY MORNING 90 Tablet 1 3 024 Suspended Additional Information Apixaban 5 MG Oral Tablet (Eliquis) Take 1 Tablet by mouth in the morning and 1 Tablet before bedtime. 180 Tablet 3 3 Suspended Additional Information Aspirin 81 MG Oral Tablet Chewable chew 1 Tablet by mouth in the morning. 100 Tablet 3 3 023 Discontinued(Re fill) Metoprolol Succinate ER 25 MG Oral Tablet Extended Release 24 Hour (toPROL XL)Indications:SVT (supraventricular tachycardia),NSVT (nonsustained ventricular tachycardia) ([facility]) TAKE ONE TABLET BY MOUTH EVERY DAY 90 Tablet 3 3 024 Suspended Additional Information Atorvastatin Calcium 80 MG Oral Tablet (Lipitor) TAKE ONE TABLET BY MOUTH AT BEDTIME 90 Tablet 1 3 024 Suspended Additional Information Vitron-C 65-125 MG Oral Tablet (Iron-Vitamin C 65-125 mg per tab) Take 1 Tablet by mouth in the morning. 0 Suspended Colchicine 0.6 MG Oral Tablet Take 2 tablets by mouth. One hour later, take 1 tablet by mouth. Take 1 tablet by mouth once daily after until symptoms resolve. 90 Tablet 3 3 Suspended Additional Information Furosemide 40 MG Oral Tablet (Lasix)Indications :HTN, goal below 140/90 Take 1 Tablet by mouth in the morning. 100 Tablet 1 3 Suspended Additional Information Fluticasone Propionate 50 MCG/ACT Nasal Suspension (Flonase) USE TWO SPRAYS IN EACH NOSTRIL IN THE MORNING 16 g 1 3 Suspended Additional Information busPIRone HCl 10 MG Oral Tablet (Buspar) take 1-2 tabs (10-20mg) by mouth twice daily as needed for anxiety 180 Tablet 0 3 Suspended Additional Information FLUoxetine HCl 20 MG Oral Capsule (PROzac) 3 caps by mouth every morning 270 Capsule 0 3 023 Discontinued Mirtazapine 15 MG Oral Tablet (Remeron) 1/2 tab (7.5mg) by mouth every night 45 Tablet 0 3 Suspended Additional Information risperiDONE 0.5 MG Oral Tablet (RisperDAL) 1 tab by mouth every night at bedtime 90 Tablet 0 3 Suspended Additional Information Omeprazole 20 MG Oral Capsule Delayed Release (PriLOSEC)Indicati ons:Gastroesophage al reflux disease without esophagitis TAKE ONE CAPSULE BY MOUTH EVERY MORNING *NEED UPDATED LABS* 90 Capsule 1 3 024 Suspended Additional Information documented as of this encounter (statuses as of 04/18/2023) Active Problems Problem Noted Date Diagnosed Date [...] tis 01/05/2014 Coronary artery disease invo lving [place]oshone coronary artery of [place]one heart without angina pectoris 11/27/2013 Tobacco abuse 11/27/2013 HTN, goal below 130/80 03/06/2009 Overview: Modified per HTN protocol #16. documented as of this encounter (statuses as of 04/18/2023) Resolved Problems Problem Noted Date Diagnosed Date [...] as of this encounter (statuses as of 04/18/2023) Immunizations Name Administration Dates Next Due COVID-19 mRNA, LNP-s, No Pre serve, 2-Dose Series (O&P Pro) 02/25/2023,02/10/2022,07/13/2020,06/17 Pneumococcal Conjugate Vacc, 13 Valent (Prevnar) [...] 04/23/2023 11:00 AM EST Office Visit Podiatry [facility] [address] [place] [address] Bettye Herrmann DPM [address] [place] [id number] 04/26/2023 11:30 AM EST Office Visit Orthopaedics [facility] [address] [place] [address] Zander Wilkins DO [address] [place] [address] 05/18/2023 1:00 PM EST Office Visit Gastroenterology, [facility] [address] [place] [address] Agnes Bowers CRNP [address] [place] [address] 05/31/2023 11:40 AM EST Office Visit Podiatry [facility] [address] [place] [address] Bettye Herrmann DPM [address] [place] [id number] 07/08/2023 10:00 AM EDT [facility] [address] [place] [address] 07/13/2023 11:00 AM EDT Office Visit Radiation Oncology, [address] [place] [address] Shawna Johnson MD [address] [place] [address] [place] [address] 07/19/2023 11:40 AM EDT Office Visit Family Practice [facility] [address] [place] [address] Johnnie Newby MD [address] [place] [address] 09/16/2023 9:00 AM EDT Office Visit Cardiology, [facility] [address] [place] [address] Deisy Aguirre CRNP [address] [place] [address] Scheduled Procedures Name Priority Associated Diagnoses Date/Ti [...] Additional history exists CKD PHOS USE SMARTSET 35214 04/15/202403/20, 06/05/2022, 06/03/2021, Additional history exists CKD HGB USE SMARTSET 23406 04/18/202404/18, 04/17/2023, 04/16/2023, Additional history exists COLONOSCOPY-EVERY [...] this encounter Medical Devices Implanted Type Area Home Manager Device Identifier Shelf Expiration Date Model / Serial / Lot Lens Intraoc 24.0 - [id number] - [id number] Implanted:Qty: 1 on 06/01/2017 by Nikhil Bolton MD at OR [facility] Left: Eye [employer] 07/17/2021 [id number] / [id number] / [id number] Lens Intraoc 24.0 - [id number] - [id number] Implanted:Qty: 1 on 06/08/2017 by Nikhil Bolton MD at OR [facility] Right: Eye [employer] 07/17/2021 [id number] / [id number] / [id number] documented as of this encounter Procedures Procedure Name Priority Date/Time Associated Diagnosis Comments ECHO, COMPLETE (2D), TRANS-THORACIC Routine 04/17/2023 12:36 PM EST Chest pain, unspecified type documented in this encounter Visit Diagnoses Diagnosis Coronary artery disease involving [place]osh[place] coronary artery of y[place] shoshone heart without angina pectoris- Primary documented in this encounter Administered Medications Inactive Administered Medications - up to 3 most recent administrations Medication Order MAR Action Action Date Dose Rate Site perflutren lipid microsphere inj SUSP 1.956 mg 1.956 mg, Intravenous, ONCE PRN Other, For Echo Only - Suboptimal Echo Images, Starting on 04/17/23 at 1205, Until 04/17/23 at 1404, For 2 hours, Administer IVP over 45 seconds, Cardiac Studies_HODHOV Given 04/17/2023 12:06 PM EST 1.956 mg documented in this encounter Advance Directives Documents on File Type Date 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 Care Teams Sleep Technician Relationship Specialty Start Date End Date Johnnie Newby MD [address] [place] [address] PCP - General Family Medicine 09/13/20 documented as of this encounter
--- OUTSIDE RECORDS SUMMARY | 2023-07-12 18:52 | External Medical Summary ---
Author Name Unknown Address Unknown Organization K01:LABORATORY [facility] [place] - [facility] [address] [facility] [address] Laboratory Report Ordering Provider Test Date Status MELVIN CAROLINA 04/18/2023 05:48:00 Final Observation Date Value Abnormality Reference (Units ) Status BUN 04/18/2023 05:48:00 31 Above high normal 6-20 (mg/dL) Final Creatinine 04/18/2023 05:48:00 1.7 Above high normal 0.6-1.2 (mg/dL) Final Glomerular filtration rate/1.73 sq M.predicted [Volume Rate/Area] in Serum, Plasma or Blood by Creatinine-based formula (CKD-EPI) 04/18/2023 05:48:00 40 Below low normal >=60 (mL/min) Final eGFR is calculated based on the CKD-EPI 2020 equation SODIUM 04/18/2023 05:48:00 138 135-146 (m mol/L) Final Potassium 04/18/2023 05:48:00 4.0 3.5-5.1 (m mol/L) Final Cl 04/18/2023 05:48:00 103 98-107 (mm ol/L) Final CO2 04/18/2023 05:48:00 24 22-32 (mmo l/L) Final Anion gap 04/18/2023 05:48:00 11 7-15 (mmol /L) Final Glucose 04/18/2023 05:48:00 103 70-120 (mg /dL) Final Calcium 04/18/2023 05:48:00 8.9 8.4-10.2 ( mg/dL) Final Performing Location LABORATORY [facility] - [address] [place] [address]
--- OUTSIDE RECORDS SUMMARY | 2023-07-12 18:52 | External Medical Summary ---
Author Name Unknown Address Unknown Organization K01:[facility] [place] - [facility] [place] [address] Laboratory Report Ordering Provider Test Date Status NATHAN ESTRELLATLPaty 04/16/2023 15:45:00 Final Observation Date Value Abnormality Reference (Units ) Status Retic, % (auto) 04/16/2023 15:45:00 2.30 Above high normal 0.80-1.90 (%) Final Reticulocytes, Absolute 04/16/2023 15:45:00 75.4 31.3-100.1 (K/uL) Final Reticulocyte fraction, immature 04/16/2023 15:45:00 35.9 Above high normal 2.5-20.6 (%) Final Reticulocyte HGB 04/16/2023 15:45:00 27.5 Below low normal 29.7-37.4 (pg) Final Performing Location LAB[facility]ORY [facility] [place] - [facility] [address] [facility] [address]
--- OUTSIDE RECORDS SUMMARY | 2023-07-12 18:52 | External Medical Summary ---
Author Name Unknown Address Unknown Organization : Laboratory Report Ordering Provider Test Date Status MARY COURTNEY 04/17/2023 07:05:13 Final Observation Date Value Abnormality Reference (Units ) Status Glucose Point of Care 04/17/2023 07:05:13 94 70-120 (mg/dL) Final Performing Location
--- OUTSIDE RECORDS SUMMARY | 2023-07-12 18:52 | External Medical Summary ---
Author Name Unknown Address Unknown Organization [id number]:[facility] [place] [address] [facility] [address] Laboratory Report Ordering Provider Test Date Status SHOBHA ESTERLLA 04/16/2023 15:45:00 Final Observation Date Value Abnormality Reference (Units ) Status SYNC LEUKOCYTES IN BLOOD BY AUTOMATED COUNT 04/16/2023 15:45:00 7.82 4.00-10.80 (K/uL) Final Segs 04/16/2023 15:45:00 76.4 Above high normal 40.0-75.0 (%) Final Lymphs % 04/16/2023 15:45:00 14.3 Below low normal 18.0-42.0 (%) Final Monos 04/16/2023 15:45:00 8.7 1.0-11.0 (%) Final Eosinophils 04/16/2023 15:45:00 0.0 0.0-6.0 (%) Final Basos 04/16/2023 15:45:00 0.3 0.0-2.0 (%) Final Immature Granulocyte, Percent 04/16/2023 15:45:00 0.3 0.0-2.0 (%) Final Absolute Segs 04/16/2023 15:45:00 5.98 1.80-7.70 (K/uL) Final Lymphs, absolute 04/16/2023 15:45:00 1.12 1.00-4.80 (K/ul) Final Monos, Abs 04/16/2023 15:45:00 0.68 0.00-1.10 (K/uL) Final Eos, Abs 04/16/2023 15:45:00 0.00 0.00-0.70 (K/uL) Final Basos, Abs 04/16/2023 15:45:00 0.02 0.00-0.20 (K/uL) Final Immature Granulocytes, Number 04/16/2023 15:45:00 0.02 0.00-0.20 (K/uL) Final Performing Location [facility] [place] - [facility] [place] [address]
--- OUTSIDE RECORDS SUMMARY | 2023-07-12 18:52 | External Medical Summary ---
Author Name Unknown Address Unknown Organization : Laboratory Report Ordering Provider Test Date Status MARY COURTNEY 04/16/2023 17:55:35 Final Observation Date Value Abnormality Reference (Units ) Status Glucose Point of Care 04/16/2023 17:55:35 108 70-120 (mg/dL) Final Performing Location
--- OUTSIDE RECORDS SUMMARY | 2023-07-12 18:52 | External Medical Summary ---
Author Name Unknown Address Unknown Organization : Laboratory Report Ordering Provider Test Date Status MARY COURTNEY 04/17/2023 16:00:58 Final Observation Date Value Abnormality Reference (Units ) Status Glucose Point of Care 04/17/2023 16:00:58 157 Above high normal 70-120 (mg/dL) Final Performing Location
--- OUTSIDE RECORDS SUMMARY | 2023-07-12 18:52 | External Medical Summary ---
Author Name Unknown Address Unknown Organization : Laboratory Report Ordering Provider Test Date Status MARY COURTNEY 04/17/2023 21:06:36 Final Observation Date Value Abnormality Reference (Units ) Status Glucose Point of Care 04/17/2023 21:06:36 110 70-120 (mg/dL) Final Performing Location
--- OUTSIDE RECORDS SUMMARY | 2023-07-12 18:53 | External Medical Summary ---
Author Name Unknown Address Unknown Organization : Laboratory Report Ordering Provider Test Date Status MARY COURTNEY 04/16/2023 11:30:45 Final Observation Date Value Abnormality Reference (Units ) Status Glucose Point of Care 04/16/2023 11:30:45 135 Above high normal 70-120 (mg/dL) Final Performing Location
--- OUTSIDE RECORDS SUMMARY | 2023-07-12 18:53 | External Medical Summary ---
Author Name Unknown Address Unknown Organization K01[place] [place] [address] [place] [address] Laboratory Report Ordering Provider Test Date Status MELVIN [place] 04/15/2023 22:58:00 Final Observation Date Value Abnormality Reference (Units ) Status Iron 04/15/2023 22:58:00 25 Below low normal 45-176 (ug/dL) Final Iron-binding capacity 04/15/2023 22:58:00 297 250-425 (ug/dL) Final Transferrin Sat % 04/15/2023 22:58:00 8 Below low normal 15-55 (%) Final Performing Location [facility] [place] [address] [place] [address]
--- OUTSIDE RECORDS SUMMARY | 2023-07-12 18:53 | External Medical Summary ---
Author Name Unknown Address Unknown Organization K01[place] [place] [address] [facility] [place] [address] Laboratory Report Ordering Provider Test Date Status MELVIN [place] 04/16/2023 05:50:00 Final Observation Date Value Abnormality Reference (Units ) Status Triglyceride 04/16/2023 05:50:00 139 <=174 ( mg/dL) Final Triglyceride Reference Range s (mg/dL):
<150 Acceptable
150-174 Borderline high
175-499 High
>=500 Very high Cholesterol 04/16/2023 05:50:00 155 <200 (mg /dL) Final Total Cholesterol Reference Ranges (mg/dL):
<200 Desirable
200-239 Borderline high
>=240 High HDL 04/16/2023 05:50:00 31 Below low normal >39 (mg/dL) Final HDL Cholesterol Reference Ra nges (mg/dL):
>=60 High (Desirable)
<50 Low (Undesirable) For Females
<40 Low (Undesirable) For Males NON-HDL CHOLESTEROL 04/16/2023 05:50:00 124 <=159 (mg/dL) Final Non-HDL Cholesterol Referenc e Range (mg/dL):
<100 Target level for high risk ASCVD patient
<130 Optimal for general population
130-159 Near optimal for general population
160-189 Borderline High
190-219 High
>=220 Very High LDL, (calculated) 04/16/2023 05:50:00 96 <= 129 (mg/dL) Final LDL Cholesterol Reference Ra nges (mg/dL):
<70 Target level for high risk ASCVD patient
<100 Optimal for general population
100-129 Near optimal for general population
130-159 Borderline high
160-189 High
>=190 Very high Performing Location [facility] [place] [address] [facility] [address]
--- OUTSIDE RECORDS SUMMARY | 2023-07-12 18:53 | External Medical Summary ---
Author Name Unknown Address Unknown Organization K01:LABORATORY [facility] [place] - [facility] [address] [facility] [address] Laboratory Report Ordering Provider Test Date Status MELVIN CAROLINA 04/15/2023 22:58:00 Final Observation Date Value Abnormality Reference (Units ) Status WBC, Total 04/15/2023 22:58:00 7.39 4.00-10.80 (K/uL) Final RBC 04/15/2023 22:58:00 3.37 4.50-5.25 (M/uL) Final Hemoglobin 04/15/2023 22:58:00 8.6 Below low normal 14.0-16.8 (g/dL) Final HCT 04/15/2023 22:58:00 29.2 Below low normal 40.0-48.4 (%) Final MCV 04/15/2023 22:58:00 86.6 82.0-99.5 (fL) Final MCH 04/15/2023 22:58:00 25.5 27.0-34.0 (pg) Final MCHC 04/15/2023 22:58:00 29.5 32.0-36.0 (g/dL) Final RDW 04/15/2023 22:58:00 18.0 11.5-15.5 (%) Final Platelets 04/15/2023 22:58:00 237 140-400 (K/uL) Final MPV 04/15/2023 22:58:00 9.6 6.6-11.1 (fL) Final Nucleated erythrocytes/100 leukocytes [Ratio] in Blood by Automated count 04/15/2023 22:58:00 0 <=0 (/100 WBCs) Final Performing Location LABORATORY [facility] [place] - [address] [place] [address]
--- OUTSIDE RECORDS SUMMARY | 2023-07-12 18:53 | External Medical Summary | Summary of Care ---
Author Name Unknown Organization [facility] Address [address] [place] [address] Phone [phone] Care Team Providers Care Case Managers Name Role Phone Johnnie Newby MD Primary Care Provider [phone] Reason for Visit * Reason Onset Date Comments Test Results 04/16/2023 Unexpected or In determinate Result Encounter Details Date Type Department Care Team (Late st Contact Info) Description 04/16/2023 Telephone [facility] 8, [facility] 8th Floor [address] [place] [address] Shoshana Paul MD [address] [place] [address] Test Results (Unexpected or Indeterminate ... Allergies Active Allergy Reactions Criticality Noted Date Comments Acetaminophen 05/06/2005 headaches documented as of this encounter (statuses as of 04/16/2023) Medications Medication Sig Dispensed Refills Start Date End Date Status DAILY MULTIVITAMIN PO TABS with lycopene 0 Suspended BUSPAR 15 MG PO TABS Take by mouth. Uses as needed 0 Suspended clonazePAM (KLONOPIN) 0.5 MG Tablet Uses as needed 0 06/17/2016 Suspended ONETOUCH ULTRA BLUE STRPIndications:Typ e 2 diabetes mellitus with hemoglobin A1c goal of less than 7.0% ([facility]) TEST ONCE DAILY 100 Strip 5 03/02/2018 Suspended Additional Information Ventolin HFA 108 (90 Base) MCG/ACT Inhalation Aerosol SolutionIndications :COPD, moderate ([facility]) Take 2 Puffs by mouth 4 times a day as needed for Shortness of Breath or Wheezing. 54 g 1 05/07/2020 Suspended Additional Information Mirtazapine 15 MG Oral Tablet (Remeron) Take one and half tablets by mouth daily at bedtime 0 10/01/2020 Suspended Gabapentin 300 MG Oral Capsule (Neurontin) Take by mouth 1 Capsule before bedtime. 90 Capsule 3 09/10/2021 Suspended Additional Information BiPAP every night at bedtime. 0 Suspended Vitamin B-12 1000 MCG Oral Tablet (Cyanocobalamin) Take 1 Tablet by mouth in the morning. 0 Suspended Isosorbide Mononitrate ER 60 MG Oral Tablet Extended Release 24 Hour (Imdur)Indications: Coronary artery disease involving tonawanda coronary artery without angina pectoris TAKE ONE TABLET BY MOUTH EVERY MORNING 90 Tablet 3 09/18/2022 09/18/19 24 Suspended Additional Information Lisinopril 20 MG Oral Tablet (Prinivil)Indicatio ns:HTN, goal below 140/90 TAKE ONE TABLET BY MOUTH EVERY MORNING 90 Tablet 2 09/18/2022 09/18/19 24 Suspended Additional Information metFORMIN HCl 1000 MG Oral Tablet (Glucophage) TAKE ONE TABLET BY MOUTH EVERY MORNING 100 Tablet 1 09/03/2022 09/03/19 24 Suspended Additional Information FLUoxetine HCl 20 MG Oral Capsule (PROzac) TAKE THREE CAPSULES BY MOUTH EVERY MORNING 270 Capsule 0 07/08/2022 07/08/19 24 Suspended Additional Information Tiotropium [place] Monohydrate 18 MCG Inhalation Capsule (Spiriva) INHALE ONE CAPSULE VIA HANDIHALER EVERY MORNING. DO NOT SWALLOW CAPSULE. 90 Capsule 3 06/26/2022 06/26/19 24 Suspended Additional Information Fluticasone-Salmete rol 230-21 MCG/ACT Inhalation Aerosol (Advair)Indications :COPD, group B, by GOLD 2017 classification ([facility]) INHALE TWO PUFFS BY MOUTH EVERY MORNING AND INHALE TWO PUFFS BY MOUTH AT BEDTIME, RINSE MOUTH AFTER USE 36 g 3 04/17/2022 05/18/19 24 Suspended Additional Information Roflumilast 500 MCG Oral Tablet (Daliresp)Indicatio ns:COPD, group D, by GOLD 2017 classification ([facility]) TAKE ONE TABLET BY MOUTH EVERY MORNING 90 Tablet 1 11/26/2022 11/26/19 24 Suspended Additional Information Apixaban 5 MG Oral Tablet (Eliquis) Take 1 Tablet by mouth in the morning and 1 Tablet before bedtime. 180 Tablet 3 12/08/2022 Suspended Additional Information Aspirin 81 MG Oral Tablet Chewable chew 1 Tablet by mouth in the morning. 100 Tablet 3 12/08/2022 Suspended Additional Information Metoprolol Succinate ER 25 MG Oral Tablet Extended Release 24 Hour (toPROL XL)Indications:SVT (supraventricular tachycardia),NSVT (nonsustained ventricular tachycardia) ([facility]) TAKE ONE TABLET BY MOUTH EVERY DAY 90 Tablet 3 12/09/2022 12/09/19 24 Suspended Additional Information Atorvastatin Calcium 80 MG Oral Tablet (Lipitor) TAKE ONE TABLET BY MOUTH AT BEDTIME 90 Tablet 1 12/09/2022 12/09/19 24 Suspended Additional Information Vitron-C 65-125 MG Oral Tablet (Iron-Vitamin C 65-125 mg per tab) Take 1 Tablet by mouth in the morning. 0 Suspended Colchicine 0.6 MG Oral Tablet Take 2 tablets by mouth. One hour later, take 1 tablet by mouth. Take 1 tablet by mouth once daily after until symptoms resolve. 90 Tablet 3 12/23/2022 Suspended Additional Information Furosemide 40 MG Oral Tablet (Lasix)Indications: HTN, goal below 140/90 Take 1 Tablet by mouth in the morning. 100 Tablet 1 01/15/2023 Suspended Additional Information Fluticasone Propionate 50 MCG/ACT Nasal Suspension (Flonase) USE TWO SPRAYS IN EACH NOSTRIL IN THE MORNING 16 g 1 01/15/2023 Suspended Additional Information busPIRone HCl 10 MG Oral Tablet (Buspar) take 1-2 tabs (10-20mg) by mouth twice daily as needed for anxiety 180 Tablet 0 02/09/2023 Suspended Additional Information FLUoxetine HCl 20 MG Oral Capsule (PROzac) 3 caps by mouth every morning 270 Capsule 0 02/09/2023 Suspended Additional Information Mirtazapine 15 MG Oral Tablet (Remeron) 1/2 tab (7.5mg) by mouth every night 45 Tablet 0 02/09/2023 Suspended Additional Information risperiDONE 0.5 MG Oral Tablet (RisperDAL) 1 tab by mouth every night at bedtime 90 Tablet 0 02/09/2023 Suspended Additional Information Omeprazole 20 MG Oral Capsule Delayed Release (PriLOSEC)Indicatio ns:Gastroesophageal reflux disease without esophagitis TAKE ONE CAPSULE BY MOUTH EVERY MORNING *NEED UPDATED LABS* 90 Capsule 1 03/21/2023 03/20/20 Suspended Additional Information documented as of this encounter (statuses as of 04/16/2023) Active Problems Problem Noted Date Diagnosed Date [...] IA2(cT1b, cN0, cM0) - Signed by Shawna Jhonson MD on 08/29/2020 Chronic kidney disease, stage 3a 08/27/2020 Overview: Per CKD protocol AAA (abdominal aortic aneurysm) 06/28/2020 Overview: 4.1 cm AAA noted on PET CT 05/29/20 Aortic valve stenosis 11/30/2019 NSVT (nonsustained ventricular tachycardia) 10/18 Carotid stenosis, non-symptomatic 05/31/2019 COPD, group D, by GOLD 2017 classification 05/30 Overview: Per COPD GOLD Classification Dyslipidemia 02/07/2019 Peripheral arterial disease 12/28/2018 NSTEMI (non-ST elevated myocardial infarction) 0 01/03/2018 YISSEL treated with BiPAP 01/03/2018 Overview: Wears BiPAP at night Type 2 diabetes mellitus wit h hemoglobin A1c goal of less than 8.0% 10/23/2014 Overview: ICD-10 update of inactive term CVA, old, 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 PTSD (post-traumatic stress disorder) 01/05/2014 Gastroesophageal reflux disease without esophagi tis 01/05/2014 Coronary artery disease invo lving tonawanda coronary artery of tonawanda heart without angina pectoris 11/27/2013 Tobacco abuse 11/27/2013 HTN, goal below 130/80 03/06/2009 Overview: Modified per HTN protocol #16. documented as of this encounter (statuses as of 04/16/2023) Resolved Problems Problem Noted Date Diagnosed Date [...] as of this encounter (statuses as of 04/16/2023) Immunizations Name Administration Dates Next Due COVID-19 mRNA, LNP-s, No Pre serve, 2-Dose Series (Kibin) 02/25/2023,02/10/2022,07/13/2020,06/17 Pneumococcal Conjugate Vacc, 13 Valent (Prevnar) [...] encounter Miscellaneous Notes * Telephone Encounter - Julianna Membreno OSA - 04/16/2023 8:19 AM EST Josi- The radiologist discovered an unexpected or indeterminate finding on Walter Don ([id number]) andasks that you review the following report. Study Type: XR CHEST 1 VIEW Date of Study: 04/15/2023 IMPRESSION: 1. Hypoventilatory changes with patchy bibasilar airspace disease which may represent atelectasis or developing pneumonia. 2. Recommend follow-up chest CT for left midlung nodular opacity likely corresponding with nodule seen on prior CT. Please respond to this encounter to acknowledge receipt of this message and take responsibility to ensure this report is reviewed. Thank you, YISSEL Simeon Client Service Rep [facility] documented in this encounter Plan of Treatment Upcoming Encounters Date Type Department Care Team (Late st Contact Info) Description 04/23/2023 11:00 AM EST Office Visit [facility]iat[facility] [place] [address] Bettye Herrmann DPM [address] [place] [address] 04/26/2023 11:30 AM EST Office Visit Orthopaedics [facility] [address] [facility] [place] [address] Zander Wilkins DO [address] [place] [address] 05/18/2023 1:00 PM EST Office Visit Gastroenterology, [facility] [address] [place] [address] Agnes Bowers CRNP [address] [place] [address] 05/31/2023 11:40 AM EST Office Visit Podiatry [facility] [address] [facility] [place] [address] Bettye Herrmann DPM [address] [place] [address] 07/08/2023 10:00 AM EDT Imaging Radiology [address] [facility] [place] [address] 07/13/2023 11:00 AM EDT Office Visit Radiation Oncology, [address] [place] [address] Shawna Johnson MD [address] [place] [address] [place] [address] 07/19/2023 11:40 AM EDT Office Visit Family Practice [facility] [address] [facility] [place] [address] Johnnie Newby MD 132 [facility] [place] [address] 09/16/2023 9:00 AM EDT Office Visit Cardiology, [facility] [address] [facility] [place] [address] Deisy Aguirre CRNP 132 [facility] [place] [address] Scheduled Procedures Name Priority Associated Diagnoses Date/Ti me CORONARY ANGIOGRAPHY W/LEFT HEART CATH NSTEMI (non-ST elevated myocardial infarction) (HCC) COLONOSCOPY FLEXIBLE PROXIMA L DIAGNOSTIC Recall History of colonic polyps Health Maintenance Due Date Last Done Comments Hepatitis B (1 of 3 - Risk 3-dose series) 2003 Depression Screening 05/31/2020 05/31/2019 Diabetic Eye Exam 04/09/2023 04/09/2022, , 03/30/2020, Additional history exists COVID-19 Vaccine ( season) 2023 02/25/2023, 02/10/2022, 07/13/2020, Additional history exists DISCUSS TOBACCO CESSATION (REFER TO SMARTSET #6891) 05/01/2023 05/01/2022, 02/13/2022 Diabetic Foot Exam 09/10/2023 09/09/2022, 1 , 11/12/2017, Additional history exists GFR 10/16/2023 04/16/2023, 03/20, 04/07/2023, Additional history exists HbA1c 10/16/2023 04/16/2023, 12/19, 06/05/2022, Additional history exists DTaP,Tdap,and Td Vaccines (2 - Td or Tdap) 01/06/2024 01/05/2014 O2 ASSESSMENT COMPLETED IN PAST YEAR FOR COPD 01/15/2024 01/14/2023 Albumin/Creatinine Ratio 02/05/2024 023, 01/15/2023, 06/04/2021, Additional history exists CKD PHOS USE SMARTSET 40292 04/15/202403/20, 06/05/2022, 06/03/2021, Additional history exists CKD HGB USE SMARTSET 22937 04/16/202404/16, 04/15/2023, 04/07/2023, Additional history exists COLONOSCOPY-EVERY 2 YRS AGES [...] this encounter Medical Devices Implanted Type Area Beekeeper Device Identifier Shelf Expiration Date Model / Serial / Lot Lens Intraoc 24.0 - [id number] - [id number] Implanted:Qty: 1 on 06/01/2017 by Nikhil Bolton MD at OR [facility] Left: Eye [employer] 07/17/2021 [id number] / [id number] / [id number] Lens Intraoc 24.0 - [id number] - [id number] Implanted:Qty: 1 on 06/08/2017 by Nikhil Bolton MD at OR [facility] Right: Eye [employer] 07/17/2021 [id number] / [id number] / [id number] documented as of this encounter Additional Health Concerns Infection Onset Date Last Indicated Resolved Time Respiratory Rule-Out 04/15/2023 04/16/2023 023 1:47 AM EST COVID-19 Rule-Out 04/15/2023 04/16/2023 04/16/2023 1:47 AM EST documented as of this encounter Advance Directives Documents on File Type Date Recorded 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 Care Teams Case Managers Relationship Specialty Start Date End Date Johnnie Newby MD [address] [place] [address] PCP - General Family Medicine 09/13/20 documented as of this encounter
--- OUTSIDE RECORDS SUMMARY | 2023-07-12 18:53 | External Medical Summary ---
Author Name Unknown Address Unknown Organization [id number]:LABORATORY [facility] [place] - [address] [place] [address] Laboratory Report Ordering Provider Test Date Status MELVIN CAROLINA 04/15/2023 22:58:00 Final Exclude Heart Failure: <300 pg/mL
Diagnose Heart Failure:
Age <50 yr: >450 pg/mL
50-75 yr: >900 pg/mL
>75 yr: >1800 pg/mL
GFR is 30-59 mL/min: >1200 pg/mL or Age- adjusted values
GFR <30 mL/min: do not use, not reliable

Prognostic threshold: 1000 pg/mL Observation Date Value Abnormality Reference (Units ) Status BNP, Pro-hormone 04/15/2023 22:58:00 3612 Above high no rmal <300 (pg/mL) Final Performing Location LABORATORY [facility] [place] - [facility] [address] [place] [address]
--- OUTSIDE RECORDS SUMMARY | 2023-07-12 18:53 | External Medical Summary ---
Author Name Unknown Address Unknown Organization [id number]:[facility]ORY [facility] - [address] [place] [address] Laboratory Report Ordering Provider Test Date Status MARKYLAMONTSIRSASHA 04/15/2023 22:58:00 Final Observation Date Value Abnormality Reference (Units ) Status Magnesium 04/15/2023 22:58:00 2.2 1.5-2.6 (m g/dL) Final Performing Location [facility]ORY [facility] - [address] [place] [address]
--- OUTSIDE RECORDS SUMMARY | 2023-07-12 18:53 | External Medical Summary ---
Author Name Unknown Address Unknown Organization : Laboratory Report Ordering Provider Test Date Status MARY COURTNEY 04/16/2023 00:25:13 Final Observation Date Value Abnormality Reference (Units ) Status Glucose Point of Care 04/16/2023 00:25:13 130 Above high normal 70-120 (mg/dL) Final Performing Location
--- OUTSIDE RECORDS SUMMARY | 2023-07-12 18:53 | External Medical Summary ---
Author Name Unknown Address Unknown Organization [id number]:LABORATORY [facility] [place] - [address] [place] [address] Laboratory Report Ordering Provider Test Date Status DEIDRE CAROLINAAnant 04/16/2023 11:53:00 Final Observation Date Value Abnormality Reference (Units ) Status Troponin T 04/16/2023 11:53:00 125 Above upper panic limits <=22 (ng/L) Final Performing Location LAB[facility]ATORY [facility] - [address] [place] [address]
--- OUTSIDE RECORDS SUMMARY | 2023-07-12 18:53 | External Medical Summary ---
Author Name Unknown Address Unknown Organization [id number]:[facility]ORY [facility] [place] - [address] [place] [address] Laboratory Report Ordering Provider Test Date Status MARKYLAMONTSIRSASHA 04/16/2023 05:50:00 Final Warfarin Therapy
INR: 2 .0-3.0 conventional anticoagulation
INR: 2.5- 3.5 high intensity anticoagulation Observation Date Value Abnormality Reference (Units ) Status PT 04/16/2023 05:50:00 14.2 11.6-15.2 (seconds) Final INR 04/16/2023 05:50:00 1.1 0.8-1.2 Final Performing Location LAB[facility]ATORY [facility] [place] - [address] [place] [address]
--- OUTSIDE RECORDS SUMMARY | 2023-07-12 18:53 | External Medical Summary ---
Author Name Unknown Address Unknown Organization [id number]:[facility] [facility] [place] [address] [place] [address] Laboratory Report Ordering Provider Test Date Status SHOBHA ESTRELLA 04/16/2023 11:53:00 Final Observation Date Value Abnormality Reference (Units ) Status Iron 04/16/2023 11:53:00 210 Above high normal 45-176 (ug/dL) Final Iron-binding capacity 04/16/2023 11:53:00 444 Above high normal 250-425 (ug/dL) Final Transferrin Sat % 04/16/2023 11:53:00 47 15-55 (%) Final Performing Location [facility] [place] [facility] [place] [address] [place] [address]
--- OUTSIDE RECORDS SUMMARY | 2023-07-12 18:53 | External Medical Summary ---
Author Name Unknown Address Unknown Organization [id number]:LABORATORY [facility] [place] - [facility] [address] [place] [address] Laboratory Report Ordering Provider Test Date Status MELVIN CAROLINA 04/15/2023 22:58:00 Final Observation Date Value Abnormality Reference (Units ) Status Heparin, unfractionated level 04/15/2023 22:58:00 1.08 Above upper panic limits <0.10 (IU/mL) Final Unfractionated therapeutic r anges for Anti Xa activity:
For Cardiac/Neurologic treatment: 0.3 to 0.6 IU/mL.
For treatment of DVT or Pulmonary Embolism: 0.3 to 0.7 IU/mL. Performing Location LABORATORY [facility] [place] - [address] [place] [address]
--- OUTSIDE RECORDS SUMMARY | 2023-07-12 18:53 | External Medical Summary ---
Author Name Unknown Address Unknown Organization K01:[facility] [place] [facility] [place] [address] [place] [address] Laboratory Report Ordering Provider Test Date Status MARKYLAMONTSASHA 04/15/2023 22:58:00 Final Observation Date Value Abnormality Reference (Units ) Status Vitamin B12 04/15/2023 22:58:00 1515 Above high normal 232-1245 (pg/mL) Final Performing Location [facility] [place] [facility] [place] [address] [place] [address]
--- OUTSIDE RECORDS SUMMARY | 2023-07-12 18:53 | External Medical Summary ---
Author Name Unknown Address Unknown Organization K01:[facility]ORY [facility] [place] [address] [place] [address] Laboratory Report Ordering Provider Test Date Status DEIDRE CAROLINAAnant 04/16/2023 05:50:00 Final Observation Date Value Abnormality Reference (Units ) Status Troponin T 04/16/2023 05:50:00 142 Above upper panic limits <=22 (ng/L) Final Performing Location LAB[facility]ATORY [facility] - [address] [place] [address]
--- OUTSIDE RECORDS SUMMARY | 2023-07-12 18:53 | External Medical Summary ---
Author Name Unknown Address Unknown Organization K01:[facility] [place] [address] [facility] [address] Laboratory Report Ordering Provider Test Date Status MELVIN CAROLINA 04/15/2023 22:58:00 Final Observation Date Value Abnormality Reference (Units ) Status BUN 04/15/2023 22:58:00 27 Above high normal 6-20 (mg/dL) Final Creatinine 04/15/2023 22:58:00 1.4 Above high normal 0.6-1.2 (mg/dL) Final Glomerular filtration rate/1.73 sq M.predicted [Volume Rate/Area] in Serum, Plasma or Blood by Creatinine-based formula (CKD-EPI) 04/15/2023 22:58:00 50 Below low normal >=60 (mL/min) Final eGFR is calculated based on the CKD-EPI 2020 equation SODIUM 04/15/2023 22:58:00 139 135-146 (m mol/L) Final Potassium 04/15/2023 22:58:00 4.7 3.5-5.1 (m mol/L) Final Cl 04/15/2023 22:58:00 106 98-107 (mm ol/L) Final CO2 04/15/2023 22:58:00 23 22-32 (mmo l/L) Final Anion gap 04/15/2023 22:58:00 10 7-15 (mmol /L) Final Glucose 04/15/2023 22:58:00 112 70-120 (mg /dL) Final Albumin 04/15/2023 22:58:00 3.8 3.8-5.0 (g /dL) Final AST (Aspartate aminotransferase) 04/15/2023 22:58:00 22 10-50 (U/L) Final Alk Phos 04/15/2023 22:58:00 115 35-130 (U/ L) Final Bilirubin, Total 04/15/2023 22:58:00 0.2 <=1 .2 (mg/dL) Final Calcium 04/15/2023 22:58:00 9.3 8.4-10.2 ( mg/dL) Final Protein 04/15/2023 22:58:00 6.2 6.0-8.3 (g /dL) Final ALT (Alanine aminotransferase) 04/15/2023 22:58:00 20 10-50 (U/L) Final Performing Location LABOR[facility]ORY [facility] [place] - [address] [facility] [address]
--- OUTSIDE RECORDS SUMMARY | 2023-07-12 18:53 | External Medical Summary ---
Author Name Unknown Address Unknown Organization K01:[facility] - [address] [place] [address] Laboratory Report Ordering Provider Test Date Status KEYONNALAMONTSIRSASHA 04/15/2023 22:58:00 Final Observation Date Value Abnormality Reference (Units ) Status Phosphate 04/15/2023 22:58:00 3.3 2.5-4.8 (m g/dL) Final Performing Location LABORATORY [facility] - [address] [place] [address]
--- OUTSIDE RECORDS SUMMARY | 2023-07-12 18:53 | External Medical Summary ---
Author Name Unknown Address Unknown Organization K01:LABORATORY [facility] [place] - [address] [place] [address] Laboratory Report Ordering Provider Test Date Status CAITYSASHA 04/15/2023 22:58:00 Final Observation Date Value Abnormality Reference (Units ) Status Folic Acid 04/15/2023 22:58:00 >20.0 >4.5 (ng/ mL) Final Performing Location LABORATORY [facility] - [address] [place] [address]
--- OUTSIDE RECORDS SUMMARY | 2023-07-12 18:53 | External Medical Summary ---
Author Name Unknown Address Unknown Organization K01:LABORATORY [place] - [address] [place] [address] Laboratory Report Ordering Provider Test Date Status DEIDRE CAROLINAAnant 04/15/2023 22:58:00 Final Observation Date Value Abnormality Reference (Units ) Status Ferritin 04/15/2023 22:58:00 30 30-400 (ng /mL) Final Performing Location LABORATORY [facility] - [address] [place] [address]
--- OUTSIDE RECORDS SUMMARY | 2023-07-12 18:53 | External Medical Summary ---
Author Name Unknown Address Unknown Organization K01:LABORATORY [facility] [place] [address] [place] [address] Laboratory Report Ordering Provider Test Date Status MELVIN CAROLINA 04/16/2023 00:42:31 Final ADMITTED patient Observation Date Value Abnormality Reference (Units ) Status Adenovirus DNA [Presence] in Nasopharynx by PILY with non-probe detection 04/16/2023 00:42:31 Negative Negative Final Human coronavirus 229E RNA [Presence] in Nasopharynx by PILY with non-probe detection 04/16/2023 00:42:31 Negative Negative Final Human coronavirus HKU1 RNA [Presence] in Nasopharynx by PILY with non-probe detection 04/16/2023 00:42:31 Negative Negative Final Human coronavirus NL63 RNA [Presence] in Nasopharynx by PILY with non-probe detection 04/16/2023 00:42:31 Negative Negative Final Human coronavirus OC43 RNA [Presence] in Nasopharynx by PILY with non-probe detection 04/16/2023 00:42:31 Negative Negative Final SARS-CoV-2 (COVID-19) RNA [Presence] in Nasopharynx by PILY with non-probe detection 04/16/2023 00:42:31 Negative Negative Final Human metapneumovirus RNA [Presence] in Nasopharynx by PILY with non-probe detection 04/16/2023 00:42:31 Negative Negative Final Rhinovirus+Enterovirus RNA [Presence] in Nasopharynx by PILY with non-probe detection 04/16/2023 00:42:31 Negative Negative Final Influenza virus A RNA [Presence] in Nasopharynx by PILY with non-probe detection 04/16/2023 00:42:31 Negative Negative Final Influenza virus B RNA [Presence] in Nasopharynx by PILY with non-probe detection 04/16/2023 00:42:31 Negative Negative Final Parainfluenza virus 1 RNA [Presence] in Nasopharynx by PLIY with non-probe detection 04/16/2023 00:42:31 Negative Negative Final Parainfluenza virus 2 RNA [Presence] in Nasopharynx by PILY with non-probe detection 04/16/2023 00:42:31 Negative Negative Final Parainfluenza virus 3 RNA [Presence] in Nasopharynx by PILY with non-probe detection 04/16/2023 00:42:31 Negative Negative Final Parainfluenza virus 4 RNA [Presence] in Nasopharynx by PILY with non-probe detection 04/16/2023 00:42:31 Negative Negative Final Respiratory syncytial virus RNA [Presence] in Nasopharynx by PILY with non-probe detection 04/16/2023 00:42:31 Negative Negative Final Bordetella pertussis.pertussis toxin promoter region [Presence] in Nasopharynx by PILY with non-probe detection 04/16/2023 00:42:31 Negative Negative Final Chlamydophila pneumoniae DNA [Presence] in Nasopharynx by PILY with non-probe detection 04/16/2023 00:42:31 Negative Negative Final Mycoplasma pneumoniae DNA [Presence] in Nasopharynx by PILY with non-probe detection 04/16/2023 00:42:31 Negative Negative Final Bordetella parapertussis [id number] DNA [Presence] in Nasopharynx by PILY with non-probe detection 04/16/2023 00:42:31 Negative Negative Final
The primers that detect Rhinovirus may cross react with some Enterorviruses. The validation of bronchial specimens, tracheal aspirates, and throats for this assay was developed and performance characteristics determined by [employer]. The validation of alternate specimen types has not been cleared or approved by the U.S. Food and Drug Administration (FDA). It has been determined that such clearance or approval is not necessary. Performing Location LABORATORY [place] [address] [address] [facility] [address] [facility] [address]
--- OUTSIDE RECORDS SUMMARY | 2023-07-12 18:53 | External Medical Summary ---
Author Name Unknown Address Unknown Organization K01:LABORATORY [facility] [place] - [address] [facility] [address] Laboratory Report Ordering Provider Test Date Status DEIDRE CAROLINAAnant 04/16/2023 05:50:00 Final Observation Date Value Abnormality Reference (Units ) Status HbA1C 04/16/2023 05:50:00 6.0 Above high normal 4. 0-5.6 (%) Final The use of HbA1c to monitor glycemic status is based on normal hemoglobin and HbA composition. This test should not be used in patients with abnormal hemoglobin that affects the half life of the red blood cell or the in vivo glycation rates. Glucose, estimated average 04/16/2023 05:50:00 126 Above high normal <126 (mg/dL) Michel palafox Performing Location LABORATORY [facility] [place] - [address] [facility] [address]
--- OUTSIDE RECORDS SUMMARY | 2023-07-12 18:53 | External Medical Summary ---
Author Name Unknown Address Unknown Organization : Laboratory Report Ordering Provider Test Date Status MARY COURTNEY 04/16/2023 05:35:11 Final Observation Date Value Abnormality Reference (Units ) Status Glucose Point of Care 04/16/2023 05:35:11 110 70-120 (mg/dL) Final Performing Location
--- OUTSIDE RECORDS SUMMARY | 2023-07-12 18:53 | External Medical Summary ---
Author Name Unknown Address Unknown Organization K01:LABORATORY [facility] [place] - [address] [place] [address] Laboratory Report Ordering Provider Test Date Status ANNA WILD 04/16/2023 05:50:00 Final Anticoagulation may affect t esting. Refer to [facility] Test Catalog for a list of effects. Observation Date Value Abnormality Reference (Units ) Status aPTT panel - Platelet poor plasma 04/16/2023 05:50:00 32 21-38 (seconds) Final Performing Location LABORATORY [facility] [place] - [address] [place] [address]
--- OUTSIDE RECORDS SUMMARY | 2023-07-12 18:53 | External Medical Summary ---
Author Name Unknown Address Unknown Organization K01:[place] [facility] [place] [facility] [address] [facility] [address] Laboratory Report Ordering Provider Test Date Status MELVIN CAROLINA 04/16/2023 05:50:00 Final Observation Date Value Abnormality Reference (Units ) Status WBC, Total 04/16/2023 05:50:00 8.28 4.00-10.80 (K/uL) Final RBC 04/16/2023 05:50:00 3.45 4.50-5.25 (M/uL) Final Hemoglobin 04/16/2023 05:50:00 8.8 Below low normal 14.0-16.8 (g/dL) Final HCT 04/16/2023 05:50:00 30.5 Below low normal 40.0-48.4 (%) Final MCV 04/16/2023 05:50:00 88.4 82.0-99.5 (fL) Final MCH 04/16/2023 05:50:00 25.5 27.0-34.0 (pg) Final MCHC 04/16/2023 05:50:00 28.9 32.0-36.0 (g/dL) Final RDW 04/16/2023 05:50:00 18.0 11.5-15.5 (%) Final Platelets 04/16/2023 05:50:00 245 140-400 (K/uL) Final MPV 04/16/2023 05:50:00 10.0 6.6-11.1 (fL) Final Nucleated erythrocytes/100 leukocytes [Ratio] in Blood by Automated count 04/16/2023 05:50:00 0 <=0 (/100 WBCs) Final Performing Location [place] [facility] [place] [address] [place] [address]
--- OUTSIDE RECORDS SUMMARY | 2023-07-12 18:53 | External Medical Summary ---
Author Name Unknown Address Unknown Organization K01:LABORATORY [facility] [place] - [address] [place] [address] Laboratory Report Ordering Provider Test Date Status DEIDRE CAROLINAAnant 04/15/2023 22:58:00 Final Observation Date Value Abnormality Reference (Units ) Status Troponin T 04/15/2023 22:58:00 145 Above upper panic limits <=22 (ng/L) Final Performing Location LABORATORY C - [address] [place] [address]
--- OUTSIDE RECORDS SUMMARY | 2023-07-12 18:53 | External Medical Summary ---
Author Name Unknown Address Unknown Organization K01:[place] [facility] [place] [facility] [address] [facility] [address] Laboratory Report Ordering Provider Test Date Status MELVIN CAROLINA 04/16/2023 05:50:00 Final Observation Date Value Abnormality Reference (Units ) Status BUN 04/16/2023 05:50:00 28 Above high normal 6-20 (mg/dL) Final Creatinine 04/16/2023 05:50:00 1.4 Above high normal 0.6-1.2 (mg/dL) Final Glomerular filtration rate/1.73 sq M.predicted [Volume Rate/Area] in Serum, Plasma or Blood by Creatinine-based formula (CKD-EPI) 04/16/2023 05:50:00 51 Below low normal >=60 (mL/min) Final eGFR is calculated based on the CKD-EPI 2020 equation SODIUM 04/16/2023 05:50:00 141 135-146 (m mol/L) Final Potassium 04/16/2023 05:50:00 4.3 3.5-5.1 (m mol/L) Final Cl 04/16/2023 05:50:00 107 98-107 (mm ol/L) Final CO2 04/16/2023 05:50:00 23 22-32 (mmo l/L) Final Anion gap 04/16/2023 05:50:00 11 7-15 (mmol /L) Final Glucose 04/16/2023 05:50:00 110 70-120 (mg /dL) Final Calcium 04/16/2023 05:50:00 9.2 8.4-10.2 ( mg/dL) Final Performing Location [place] [facility] [place] [address] [place] [address]
--- OUTSIDE RECORDS SUMMARY | 2023-07-12 18:53 | External Medical Summary ---
Author Name Unknown Address Unknown Organization K01:LABORATORY [facility] [place] - [address] [place] [address] Laboratory Report Ordering Provider Test Date Status MARKYLAMONTSIRSASHA 04/15/2023 22:58:00 Final Warfarin Therapy
INR: 2 .0-3.0 conventional anticoagulation
INR: 2.5- 3.5 high intensity anticoagulation Observation Date Value Abnormality Reference (Units ) Status PT 04/15/2023 22:58:00 13.7 11.6-15.2 (seconds) Final INR 04/15/2023 22:58:00 1.0 0.8-1.2 Final Performing Location LABORATORY [facility] [place] - [address] [place] [address]
--- OUTSIDE RECORDS SUMMARY | 2023-07-12 18:53 | External Medical Summary ---
Author Name Unknown Address Unknown Organization K01:LABORATORY [facility] [place] - [address] [place] [address] Laboratory Report Ordering Provider Test Date Status MELVIN CAROLINA 04/15/2023 22:58:00 Final Anticoagulation may affect t esting. Refer to [facility] Test Catalog for a list of effects. Observation Date Value Abnormality Reference (Units ) Status aPTT panel - Platelet poor plasma 04/15/2023 22:58:00 29 21-38 (seconds) Final Performing Location LABORATORY [facility] [place] - [address] [place] [address]
[2023-07-12] MEDS: INSULIN ASPART PER UNIT CHARGE SC SCH (19:57)
[2023-07-12] MEDS: BUDESONIDE 0.25 MG/2 ML VIAL (PULMICORT) INH SCH (20:03)
[2023-07-12] MEDS: FORMOTEROL 20 MCG/2 ML VIAL INH SCH (20:04)
[2023-07-12] MEDS: MIRTAZAPINE TAB 15 MG TAB PO SCH (20:29)
[2023-07-12] MEDS: ATORVASTATIN 40 MG TAB PO SCH (20:29)
[2023-07-12] MEDS: APIXABAN 5 MG TABLET PO SCH (20:29)
[2023-07-12] MEDS: clonazePAM 0.5 MG TAB PO SCH (20:29)
[2023-07-12] MEDS: risperiDONE 0.5 MG TABLET PO SCH (20:29)
[2023-07-12] MEDS: GABAPENTIN 300 MG CAP PO SCH (20:30)
[2023-07-12] MEDS ORDERED: LANTUS PER UNIT CHARGE SQ SCH (21:00)
[2023-07-12] MEDS ORDERED: NON-FORMULARY MEDICATION (Fluticasone Propion-Salmeterol [Advair Hfa] 230-21 mcg/actuation INH SCH (21:00)
[2023-07-12] MEDS ORDERED: INSULIN ASPART PER UNIT CHARGE SC SCH (21:00)
[2023-07-12] MEDS ORDERED: BUDESONIDE 0.25 MG/2 ML VIAL (PULMICORT) INH SCH (21:00)
--- OUTSIDE RECORDS SUMMARY | 2023-07-13 06:45 | External Medical Summary ---
Author Name Unknown Address Unknown Organization K0G[facility] [address] [place] [address] Laboratory Report Ordering Provider Test Date Status ARA MARINELLI 07/12/2023 10:46:52 Final Observation Date Value Abnormality Reference (Units ) Status Glucose Point of Care 07/12/2023 10:46:52 131 Above high normal 70-120 (mg/dL) Final Performing [facility] - [address] [place] [address]
--- OUTSIDE RECORDS SUMMARY | 2023-07-13 06:45 | External Medical Summary | Summary of Care ---
Author Name Unknown Organization [facility] Address [address] [place] [address] Phone [phone] Care Team Providers Care Roll Icer Machine Name Role Phone Johnnie Newby MD Primary Care Provider [phone] Encounter Details Date Type Department Care Team (Late st Contact Info) Description 07/12/2023 Orders Only Family Practice [facility] [address] [facility] [place] [address] Jadyn Hendrickson, [address] [facility] [place] [address] Type 2 diabetes mellitus with hemoglobin A1c goal of less than 8.0% ([facility])* Allergies Active Allergy Reactions Criticality Noted Date Comments Acetaminophen 05/06/2005 headaches documented as of this encounter (statuses as of 07/12/2023) Medications Medication Sig Dispensed Refills Start Date [...] 24 Hour (Imdur)Indications:C oronary artery disease involving havasupai coronary artery without angina pectoris TAKE ONE [...] 30 Tablet 2 05/24/2023 4 Active Tiotropium [place] Monohydrate 18 MCG Inhalation Capsule (Spiriva) Inhale [...] as of this encounter (statuses as of 07/12/2023) Active Problems Problem Noted Date Diagnosed Date [...] tis 01/05/2014 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 documented as of this encounter (statuses as of 07/12/2023) Resolved Problems Problem Noted Date Diagnosed Date [...] as of this encounter (statuses as of 07/12/2023) Immunizations Name Administration Dates Next Due COVID-19 mRNA, LNP-s, No Pre serve, 2-Dose Series (DIIME) 02/25/2023,02/10/2022,07/13/2020,06/17 Pneumococcal Conjugate Vacc, 13 Valent (Prevnar) [...] as of this encounter Progress Notes * Gosia Asencio LPN - 07/12/2023 11:40 AM EDT During rapid response glucose POC was done, placed ordered in TE. Results 131. documented in this encounter Plan of Treatment Upcoming Encounters Date Type Department Care Team (Late st Contact Info) Description 07/19/2023 11:40 AM EDT Office Visit Family Practice [facility] [address] [place] [address] Johnnie Newby MD [address] [place] [address] 07/20/2023 11:30 AM EDT Office Visit Cardiology, [facility] [address] [place] [address] Warren Montoya, DO [address] [place] [address] 07/27/2023 11:00 AM EDT Office Visit Radiation Oncology, [address] [place] [address] Shawna Johnson MD [address] [place] [address] [place] [address] 07/28/2023 9:30 AM EDT Office Visit Orthopaedics [facility] [address] [place] [address] Zander Wilkins, [address] [place] [address] 08/30/2023 9:45 AM EDT Office Visit Orthopaedics [facility] [address] [place] [address] Zander Wilkins, DO [address] [place] [address] 08/30/2023 10:20 AM EDT Office Visit Podiatry [facility] [address] [place] [address] Bettye Herrmann, SAMM [address] [facility] [place] [address] 09/02/2023 11:00 AM EDT Laboratory Laboratory [address] [place] [id number] [place], [address] [place] [address] 09/09/2023 11:00 AM EDT Office Visit [facility]ology[facility] [address] [facility] [phone] Lexie Palmer CRNP [address] [facility] [place] [address] 09/16/2023 9:00 AM EDT Office Visit Cardiology, [facility] [address] [facility] [place] [address] Deisy Aguirre CRNP [address] [facility] [place] [address] Scheduled Orders Name Type Priority Associated Diagnoses Orde r Schedule GLUCOSE METER, POINT OF CARE Point of Care Testing - Unsolicited Results Routine Type 2 diabetes mellitus with hemoglobin A1c goal of less than 8.0% ([facility]) Ordered: 07/12/2023 Scheduled Procedures Name Priority Associated Diagnoses Date/Ti me COLONOSCOPY FLEXIBLE PROXIMA L DIAGNOSTIC Recall History of colonic polyps Health Maintenance Due Date Last Done Comments COVID-19 Vaccine ( season) 2023 02/25/2023, 02/10/2022, 07/13/2020, Additional history exists DISCUSS TOBACCO CESSATION (REFER TO SMARTSET #8403) 05/01/2023 05/01/2022, 02/13/2022 Diabetic Eye Exam 07/09/2023 [...] Additional history exists CKD PHOS USE SMARTSET 64128 04/15/202403/20, 06/05/2022, 06/03/2021, Additional history exists Depression Screening 04/22/2024 04/22/2023 CKD HGB USE SMARTSET 87874 06/03/202406/03, 06/03/2023, 04/18/2023, Additional history exists COLONOSCOPY-EVERY [...] this encounter Medical Devices Implanted Type Area General Dentist/Owner Device Identifier Shelf Expiration Date Model / Serial / Lot Lens Intraoc 24.0 - [id number] - [id number] Implanted:Qty: 1 on 06/01/2017 by Nikhil Bolton MD at OR [facility] Left: Eye [employer] 07/17/2021 [id number] / [id number] / [id number] Lens Intraoc 24.0 - [id number] - [id number] Implanted:Qty: 1 on 06/08/2017 by Nikhil Bolton MD at OR [facility] Right: Eye [employer] 07/17/2021 [id number] / [id number] / [id number] documented as of this encounter Visit Diagnoses Diagnosis Type 2 diabetes mellitus with hemoglobin A1c goal of less than 8.0% (HCC)- Primary documented in this encounter Advance Directives Documents on File Type Date Recorded 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 Care Teams Roll Icer Machine Relationship Specialty Start Date End Date Johnnie Newby MD [address] [place] [address] PCP - General Family Medicine 09/13/20 documented as of this encounter
[2023-07-13 08:05] LABS: Hematocrit (blood only) 37.3 % (42.0-52.0); Hemoglobin 11.9 g/dl (14.0-18.0); Mean Corpuscular Hemoglobin 27.6 pg (25.0-34.0); Mean Corpuscular Hgb Conc 31.9 g/dL (32.0-36.0); Mean Corpuscular Volume 86.5 fL (80.0-100.0); Mean Platelet Volume 9.3 fL (9.4-12.4); Platelet Count 235 K/uL (130-400); RDW Coefficient of Variation 18.2 % (11.5-14.5); RDW Standard Deviation 58.6 fL (36.4-46.3); Red Blood Count 4.31 M/uL (4.70-6.10); White Blood Count 5.45 K/ul (4.8-10.8)
[2023-07-13 08:20] LABS: Albumin Globulin Ratio 1.1 (0.9-2); Albumin Level 3.6 gm/dl (3.4-5.0); BUN Creatinine Ratio 13.3 (10-20); Bilirubin,Total 0.5 mg/dl (0.2-1.0); Calcium 9.7 mg/dl (8.6-10.3); Creatinine Clr Calc Pharmacy 50.2 ml/min; Est GFR (African American) 57.5 ml/min; Est GFR (Non-African American) 49.6 ml/min; Globulin 3.4 gm/dl (2.5-4.0); Potassium 4.1 mmol/L (3.5-5.1)
--- NOTE | 2023-07-13 08:23 | Cardiology Consultation ---
Date of Consultation July 13, 2023 Assessment & Plan (1) Chest pain: (2) COPD (chronic obstructive pulmonary disease): (3) Adenocarcinoma of lower lobe of right lung: (4) YISSEL (obstructive sleep apnea): Plan Assessment: 77 year old male with significant CAD as noted on most recent cath 03/2023 presents to the hospital for complaints of 4 day history of back pain radiating up to shoulder and upper chest. EKG with no acute ST-T wave changes. Very mild/flat elevation in troponin. Cardiology as been asked to evaluate. Plan: 1. Chest pain: -Atypical chest pain descibed as a low back pain that radiated up and over chest. Denies any chest discomfort today. Back pain is reproducible to palpation. EKG remains unchange from prior with no acute ST-T wave changes. Troponin with very mild/flat elevation. Known multi-vessel disease not amendable to PCI and not a candidate to CT surgery. -Description of pain not convincing for ACS -Obtain echocardiogram today to assess overall structure and function/new wall motion abnormality. -BP well controlled. -Euvolemic on exam -Continue GDMT with Toprol xl, Imdur, Atorvastatin, and Plavix. Patient is not on ASA therapy as he remains on Eliquis. 2. COPD 3. Adenocarcinoma of lower lobe right lung -Abnormal CT Chest findings. Per review of Pulmonary evaluation it would appear that patient has a significant history of adenocarcinoma and that the 5mm nodule was considered a stable finding. They will plan to review all images to further evaluate the progression vs stability of the changes. 4. YISSEL -Wears CPAP at home. -Review of telemetry demonstrated a 6 beat complex of PVC/couplets, but no non-sustained VT, was asleep during episode and likely s/t YISSEL. Electrolytes WNL this am. Await echocardiogram to assess for any new or concerning findings, if remain unchanged, would continue patient's current medication therapies as per home regimen and investigate non-cardiac causes. Further recommendations as appropriate per testing. Case has been discussed with Dr. Alvarenga. Further recommendations regarding plan of care as per his assessment. I spent a total of 40 minutes on the date of service in preparation, delivery, documentation of the care provided to the patient excluding any time spent in the performance of separately billed services. CHRISTOPHE Fry [facility] Cardiology [facility] Supervising Physician Co-Signing Physician Notes Patient was seen and examined, chart, medications reviewed. Assessment and plan reviewed and discussed with advanced provider as above. Patient is a 77-year-old male with known critical coronary artery disease by cardiac catheterization March 2023. Patient has occlusion of the right coronary artery and left circumflex with critical stenosis of the left main not amenable to PCI. Patient has declined surgical intervention offered on compassionate basis and has been manage medical He presents now with symptoms atypical for angina. No hemodynamic instability. Minimal elevation in troponin not consistent with prior ischemic events Echocardiogram unchanged from prior studies but demonstrates findings consistent with ischemic cardiomyopathy and known coronary artery disease as well as moderate calcific aortic stenosis. Plan continue medical therapy. Patient wishes hospital discharge and currently being arranged no adjustments made History of Present Illness Reason for Consultation: Chest pain Requesting Physician: Corbin donis Attending Physician: Malaika Espinal MD History of Present Illness HPI: Patient is a medically complex 77 year old male that presented from [facility] yesterday for complaints of lower back pain that radiated from his lower back up to his bilateral shoulders and across the upper anterior portion of his chest. States that this is very different from his "cardiac" chest pain. patient was transported to [facility] via ambulance in which he was administered ASA and a total of 3 SL NTG with little to no change in his symptoms. EKG on admission demonstrates SR with 1st AVB, occ PVC and PAC. non-specific ST- T wave abnormality (previously cited) Rate 83 bpm. Last echocardiogram 03/2023 (NSTEMI) demonstrated an LvEF of 35-40%, Large inferior, posterior and lateral wall motion abnormality with hypokinesis to akinesis of the segmans. Aortic valve with moderate calcification, Moderte , mild to moderate MR. Patient seen and examined today feeling well overall. he continues to endorse chronic lower back pain radiating up his back and is tender to palpation in his shoulders. Denies any chest discomfort. Troponin 17.5/21.0/26.8. Cardiac history: 1. Coronary artery disease, most recent NSTEMI 04.15.23 (Cath 04.16.23 demonstrated RCA 100% QUARTER SEAMER with L-R collaterals via LAD, LCX 100% QUARTER SEAMER with minimal collaterals, LMCA has critical stenosis and is severely aneurysmal. No PCI options, seen by [facility]VS too high risk and opt for medication management) 2. Peripheral arterial disease 3. History CVA 4. Moderate aortic stenosis 5. Posttraumatic stress disorder secondary medical procedures 6. Adenocarcinoma of the lung treated with radiation. 7. Palpitations with a history of frequent PVCs 8. 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 Home Medications Medication Instructions Recorded Confirmed Type albuterol sulfate 2.5 mg/3 mL 2.5 mg inhalation DIRECTED PRN 04/14/23 07/12/23 History (0.083 %) solution for nebulization Shortness Of Breath Or Wheezing albuterol sulfate 90 mcg/actuation 2 puff inhalation QID PRN 04/14/23 07/12/23 History aerosol inhaler (Ventolin HFA) Shortness Of Breath Or Wheezing apixaban 5 mg tablet (Eliquis) 5 mg PO BID 04/14/23 07/12/23 History atorvastatin 80 mg tablet 80 mg PO HS 04/14/23 07/12/23 History buspirone 10 mg tablet 10 - 20 mg PO BID PRN Anxiety 04/14/23 07/12/23 History clonazepam 0.5 mg tablet 0.5 mg PO HS 04/14/23 07/12/23 History colchicine 0.6 mg tablet 0.6 mg PO DIRECTED PRN GOUT 04/14/23 07/12/23 History FLARE UP cyanocobalamin (vitamin B-12) 1,000 mcg PO QAM 04/14/23 07/12/23 History 1,000 mcg tablet (Vitamin B-12) fluoxetine 20 mg capsule 60 mg PO QAM 04/14/23 07/12/23 History fluticasone propionate 230 2 puff inhalation BID 04/14/23 07/12/23 History mcg-salmeterol 21 mcg/actuation HFA inhaler (Advair HFA) fluticasone propionate 50 2 spray intranasal QAM 04/14/23 07/12/23 History mcg/actuation nasal spray,suspension furosemide 40 mg tablet (Lasix) 40 mg PO QAM 04/14/23 07/12/23 History gabapentin 300 mg capsule 300 mg PO HS 04/14/23 07/12/23 History iron,carbonyl 65 mg-vitamin C 125 1 tab PO QAM 04/14/23 07/12/23 History mg tablet,delayed release (Vitron-C) isosorbide mononitrate 60 mg 60 mg PO QAM 04/14/23 07/12/23 History tablet,extended release 24 hr metoprolol succinate 25 mg 25 mg PO QAM 04/14/23 07/12/23 History tablet,extended release 24 hr mirtazapine 15 mg tablet 7.5 mg PO HS 04/14/23 07/12/23 History multivitamin 1 tab PO QAM 04/14/23 07/12/23 History omeprazole 20 mg capsule,delayed 20 mg PO QAM 04/14/23 07/12/23 History release risperidone 0.5 mg tablet 0.5 mg PO HS 04/14/23 07/12/23 History roflumilast 500 mcg tablet 500 mcg PO QAM 04/14/23 07/12/23 History tiotropium bromide 18 mcg capsule 1 cap inhalation [facility] 04/14/23 07/12/23 History with inhalation device (Spiriva with HandiHaler) budesonide 0.25 mg/2 mL suspension 0.25 mg inhalation BID 07/12/23 07/12/23 History for nebulization clopidogrel 75 mg tablet 75 mg PO QAM 07/12/23 07/12/23 History metformin 500 mg tablet,extended 500 mg PO BID 07/12/23 07/12/23 History release 24 hr azithromycin 500 mg tablet See Rx Instructions PO .COMPLEX #3 07/13/23 Rx tabs cefdinir 300 mg capsule 300 mg PO BID #8 caps 07/13/23 Rx prednisone 20 mg tablet 20 mg PO BID #8 tabs 07/13/23 Rx Patient History Medical History (Updated 07/13/23 @ 13:07 by Patricia Zabala DNP) Palliative care by specialist Advanced care planning/counseling discussion COPD, severe Severe muscle deconditioning Weakness generalized Dyspnea and respiratory abnormalities Pneumonia Chronic anticoagulation History of CVA (cerebrovascular accident) HLD (hyperlipidemia) Tobacco use COPD (chronic obstructive pulmonary disease) Anemia of chronic disease Adenocarcinoma of left lung Social History Smoking Status: Current every day smoker Tobacco Type: Cigarettes Cigarettes Per Day: 1.5 ppd; Do You Dip or Chew Tobacco: No; Hx Alcohol Use: No Hx Substance Use: No Preferred Language: Thai Communication Ability: Effective It Analyst Required: No Beliefs That Will Affect Care: None Current Living Situation: Spouse Feels Safe at Home: Yes Safety Concerns: Feels Safe At This Time Assistive Devices: CPAP and Walker Review of Systems Review of Systems: All systems reviewed & are unremarkable except as noted in HPI & below Physical Exam Constitutional: well developed and well nourished Neck: normal visual inspection and trachea midline Respiratory: normal respiratory effort; no respiratory distress Auscultation: lungs clear to auscultation bilaterally; no crackles, no rales and no rhonchi Cardiovascular: Rate/Rhythm: regular rate and regular rhythm Heart Sounds: normal S1, normal S2 and + murmur (+1/6 systolic ) Vessels: dorsalis pedis pulses present; no JVD Extremities: + edema (Trace BLE) Skin: no rashes, warm and dry Psychiatric: A+Ox3, euthymic affect Results & Data Vital Signs (Past 12 Hours) Vital Signs Temp Pulse Pulse Resp BP Pulse Ox O2 Del Method 07/13/23 07:37 36.4 C L 83 18 150/76 H 93 CPAP 07/13/23 07:04 60 18 92 CPAP 07/13/23 03:35 58 L 16 94 07/13/23 02:22 36.8 C 71 18 158/88 H 90 CPAP 07/12/23 23:15 68 20 90 07/12/23 23:14 82 07/12/23 22:36 37.0 C 71 18 132/79 90 Room Air 07/12/23 21:20 Room Air FiO2 07/13/23 07:37 07/13/23 07:04 21 07/13/23 03:35 07/13/23 02:22 07/12/23 23:15 07/12/23 23:14 07/12/23 22:36 07/12/23 21:20 Laboratory Results Cardiac Enzymes 07/12/23 07/12/23 07/12/23 Range/Units 11:34 15:02 20:46 AST 16 (13-39) U/L Troponin I High Sens 17.5 21.0 H 26.8 H (0-20) pg/ml 07/13/23 Range/Units 07:42 AST 12 L (13-39) U/L Troponin I High Sens (0-20) pg/ml CBC 07/12/23 07/13/23 Range/Units 11:34 07:42 WBC 8.47 5.45 (4.8-10.8) K/ul RBC 4.25 L 4.31 L (4.70-6.10) M/uL Hgb 11.5 L 11.9 L (14.0-18.0) g/dl Hct 37.4 L 37.3 L (42.0-52.0) % Plt Count 235 235 (130-400) K/uL Neut # (Auto) 6.93 H (1.40-6.50) K/uL Lymph # (Auto) 0.84 L (1.20-3.40) K/uL [place] # (Auto) 0.65 H (0.11-0.59) K/uL Eos # (Auto) 0.00 (0.00-0.50) K/uL Baso # (Auto) 0.02 (0.00-0.20) K/uL Comprehensive Metabolic Panel 07/12/23 07/13/23 Range/Units 11:34 07:42 Sodium 139 141 (136-145) mmol/L Potassium 4.5 4.1 (3.5-5.1) mmol/L Chloride 105 104 (98-107) mmol/L Carbon Dioxide 26 29 (21-32) mmol/L BUN 20 18 (6-23) mg/dl Creatinine 1.39 1.35 (0.6-1.4) mg/dl Glucose 125 H 107 H (70-99(Fasting)) mg/dl Calcium 9.6 9.7 (8.6-10.3) mg/dl AST 16 12 L (13-39) U/L ALT 10 8 (7-52) U/L Alkaline Phosphatase 130 H 112 H (34-104) U/L Total Protein 7.3 7.0 (6.0-8.3) gm/dl Albumin 3.9 3.6 (3.4-5.0) gm/dl Intake and Output 07/12/23 07/13/23 07/13/23 22:59 06:59 14:59 Intake Total 255 / 405 100 / 405 Output Total 700 / 1600 900 / 1600 Balance -445 / -1195 -800 / -1195 Intake: IV 255 / 305 Azithromycin 500 mg In Dextrose 255 / 255 5% 250 ml @ 127.5 mls/hr IV NOW STA Rx#:[id number] Oral 100 / 100 Output: Urine 700 / 1600 900 / 1600 Other: Weight 94.4 kg 90.3 kg Weight Measurement Method [facility] in [facility] (1) Chest pain Chest pain type: unspecified Qualified Code(s): R07.9 - Chest pain, un specified
[2023-07-13] MEDS: CLOPIDOGREL BISULFATE 75 MG TAB PO SCH (08:25)
[2023-07-13] MEDS: ASCORBIC ACID 500 MG TAB PO SCH (08:25)
[2023-07-13] MEDS: FLUTICASONE PROPIONATE NA SPR 16 GM BTL SCH (08:26)
[2023-07-13] MEDS: FLUoxetine HCL 20 MG CAP PO SCH (08:26)
[2023-07-13] MEDS: FERROUS SULFATE 325 MG TAB PO SCH (08:26)
[2023-07-13] MEDS: CYANOCOBALAMIN (B-12) 500 MCG TABLET PO SCH (08:26)
[2023-07-13] MEDS: UMECLIDINIUM BROMIDE 62.5MCG/BLISTER 7 PUFFS/INHALER INH SCH (08:27)
[2023-07-13] MEDS: FUROSEMIDE 40 MG TAB PO SCH (08:28)
[2023-07-13] MEDS: METOPROLOL SUCC 25MG EXT REL TAB PO SCH (08:28)
[2023-07-13] MEDS: ISOSORBIDE MONO EXTENDED REL 60 MG TABCR PO SCH (08:28)
[2023-07-13] MEDS: PANTOprazole 40 MG TAB PO SCH (08:28)
[2023-07-13] MEDS: ROFLUMILAST 500 MCG TAB PO SCH (08:29)
--- NOTE | 2023-07-13 08:41 | Pulmonology Progress Note ---
Date of Service July 13, 2023 Assessment & Plan (1) COPD (chronic obstructive pulmonary disease): (2) Adenocarcinoma of lower lobe of right lung: (3) YISSEL (obstructive sleep apnea): (4) Tobacco use: (5) Chest pain: Plan IMPRESSION: 77-year-old male with a significant pulmonary history consistent with COPD, adenocarcinoma of the RIGHT lower lobe status post SBRT therapy in 2020, continued smoking, and obstructive sleep apnea on BiPAP who presents with complaints of chest pain. Pulmonary medicine consulted given CT findings during workup today. RECOMMENDATIONS: 1. Abnormal chest CT - Patient with findings of infiltrative changes noted to the RIGHT lower lobe of the lung. Additionally, there is a nodule present to the LEFT upper lobe. Unfortunately, all of the patient's images have previously been performed at an outside institution. Would recommend that if you are requesting complete evaluation of the patient's imaging, particularly in a complex patient with significant history for adenocarcinoma, that images be pushed to our bistro server so we would be able to independently evaluate those studies as well. That being said, hospitalist was able to provide me with the report of a CT that was obtained a few days ago which demonstrated what were described as "stable" findings with only new finding of 5 mm nodule which certainly would be not of concern at this point. That being said, would wish to evaluate all of these images prior to waiting informally on the nature of the progression versus stability of pulmonary infiltrative changes in a patient with a significant history of adenocarcinoma. Again, while this certainly may represent a stable patient, without the aid of imaging modalities to assess the lung parenchyma. 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 Would recommend prednisone 20 mg p.o. twice daily x 5 days for the sake of completion. From a pulmonary perspective, he has significantly improved. Will defer to primary team for disposition planning. 2. Adenocarcinoma of the lung - Previously noted treatment of the RIGHT lower lobe with SBRT therapy that was performed in [facility]. Patient continues to follow with this group annually. He actually just had an outpatient CT performed last week. He is scheduled to see them within the next 1 to 2 weeks in follow-up. I would recommend a PET/CT to be done as an outpatient to see if any of the pulmonary nodules and/or mediastinal lymphadenopathy are positive and based on that finding to do diagnostic study either CT-guided biopsy versus EBUS +/- robotic [facility] 3. Obstructive sleep apnea - Would obtain patient's home CPAP settings from outpatient records and would recommend continuing CPAP while inpatient. 4. COPD - Patient with longstanding history. He reports that he does not feel as though any of his inhalers typically work. He is currently using HFA type in [facility]. He states that he is not able to hold his breath or maintain deep enough breath for long enough to sit feel like he achieves clinical benefit. Patient has seemed to do very well with nebulized budesonide and Perforomist with his ongoing Spiriva. He is not bronchospastic at all on exam today. He does note that his breathing has improved. Again, would initiate short course of prednisone therapy to be completed in the outpatient setting as well as his azithromycin and cefdinir. He can continue to follow with his primary test data developer in the outpatient setting. If the patient is doing this well on budesonide and performance, this could be considered to change his outpatient treatment regime, but might defer this to his primary pulmonary services moving forward. 5. Chest pain - With known coronary disease. Defer workup to inpatient team and cardiology services. Thank you for allowing us to participate in the care of this patient. Pulmonary medicine will sign off at this time. Admission and Anticipated Discharge Date Admission Date: July 12, 2023 Supervising Physician Co-Signing Physician Notes I saw and evaluated the patient with Zbigniew Baron PA-C, and agree with findings and plan as documented in the note. 77-year-old male with past medical history of adenocarcinoma of the right side of the lung s/p radiation therapy proximately 4 years ago in 2019 Patient seen and examined at bedside. No acute distress, no adverse events overnight. He says he is feeling better compared to yesterday. He was saturating 90% on room air. On asking him to take deep breaths his saturation did go up to 93-94% No headache, no blurry vision Was asking if he could go home Constitutional: No acute distress HEENT: EOMI, PERRLA Respiratory system: Decreased air entry bilaterally, no wheeze, rhonchi, positive crackles bilaterally CVS: S1-S2 positive, no murmurs or gallops Abdomen: Soft, nontender, nondistended, positive bowel sounds x4, obese Extremities: +2 pulses bilaterally radialis/ dorsalis pedis, no cyanosis, +2 pi tting edema bilateral lower extremity Neuro: Awake alert oriented x3 Psych: Normal mood and affect G/U: No Rudolph Plan: CT chest 07/12/2023 personally reviewed: Centrilobular and paraseptal emphysema appreciated bilaterally especially in the upper lobes Left lower lobe 1.1 cm spiculated nodule, another 8 mm pulmonary nodule Small right-sided pleural effusion with right hilar/right lower lobe opacity likely representing postradiation changes Minimal mediastinal lymphadenopathy I would recommend a PET/CT to be done as an outpatient to see if any of the pu lmonary nodules and/or mediastinal lymphadenopathy are positive and based on that finding to do diagnostic study either CT-guided biopsy versus EBUS +/- robotic bronc Continue with CPAP machine for YISSEL Recommend quitting smoking as he still smoking 1 and half pack a day Continue with incentive spirometry Case was discussed with RN at bedside as well as primary team Please note the above document was generated using voice recognition software. It may contain grammatical, syntax or spelling errors.Any formal questions or concerns about the content, text or information contained within the body of this dictation should be directly addressed to the provider for clarification. Subjective Patient was seen and evaluated at bedside. He reports having had a great night sleep. He states that his pulmonary status fluctuates as he developed some shortness of breath with any types of exertion. He states that this is unchanged from what he experiences at home. He reports that he has been doing very well with the addition of the nebulized therapies. He reports feeling improved and anxious to be discharged home. Review of Systems Review of Systems: A complete 10 point review of systems was reviewed with the patient with pert inent positives and negatives as per history of present illness. All else were negative. Physical Exam Physical Exam: VITAL SIGNS - Vital signs and nursing notes were reviewed. GENERAL - 77-year-old male appearing hid stated age who is in no acute distress. Communicates well with provider and answers questions appropriately. SKIN - Without rashes or lesions. NOSE - Midline and without cyanosis. MOUTH/OROPHARYNX - Without perioral cyanosis. NECK - Neck with FROM. LUNGS - Chest wall evaluation demonstrates an increased chest wall A:P diameter. Auscultation reveals delayed air entry with bilateral wheezes present. CARDIAC - RRR with S1/S2. No murmur, rubs, or gallops appreciated. ABDOMEN - Abdominal inspection demonstrates an obese abdomen. BS normoactive all four quadrants. No tenderness, palpable masses, or ascites noted. PSYCH - A&Ox3 and cooperates fully with examiner. Pt is very pleasant and interacts well with examiner. Results & Data Results & Data Vital Signs (Past 12 Hours) Vital Signs Temp Pulse Pulse Resp BP Pulse Ox O2 Del Method 07/13/23 07:37 36.4 C L 83 18 150/76 H 93 CPAP 07/13/23 07:04 60 18 92 CPAP 07/13/23 03:35 58 L 16 94 07/13/23 02:22 36.8 C 71 18 158/88 H 90 CPAP 07/12/23 23:15 68 20 90 07/12/23 23:14 82 07/12/23 22:36 37.0 C 71 18 132/79 90 Room Air 07/12/23 21:20 Room Air FiO2 07/13/23 07:37 07/13/23 07:04 21 07/13/23 03:35 07/13/23 02:22 07/12/23 23:15 07/12/23 23:14 07/12/23 22:36 07/12/23 21:20 PG Care Time/CCT Total # of Minutes Spent Total Time Spent with Patient: Total time spent is greater than 50% in coordination of care (as documented) at patient's floor/unit and/or counseling patient: Coding Level of Care Code 92389 SUB INP/OBS CARE 3/50MIN Diagnoses COPD (chronic obstructive pulmonary disease) J44.9 Adenocarcinoma of lower lobe of right lung C34.31 YISSEL (obstructive sleep apnea) G47.33 Tobacco use Z72.0 Chest pain R07.9
[2023-07-13 08:57] LABS: Estimated Average Glucose 137 mg/dl; Hemoglobin A1C 6.4 % (4.5-5.6)
[2023-07-13] MEDS ORDERED: NON-FORMULARY MEDICATION (Iron,Carbonyl-Vitamin C [Vitron-C] 65 mg iron- 125 mg Tablet,Del PO SCH (09:00)
--- NOTE | 2023-07-13 09:16 | Palliative Care Consultation ---
Date of Consultation July 13, 2023 Assessment & Plan (1) Dyspnea and respiratory abnormalities: multi faceted etiology which includes progressive copd / smoking related lung disease, prior hx right lung adenoca and declining PS + HFrEF He is not tolerated MDI based regimen and feels he cannot get a deep enough breath in with actuation May need to transition to nebulizer based regimen. [facility] sees Dr Lopez [facility], will follow up there for more guidance. he is not interested in returning to pulm rehab, tells me the attempts last year did not yield any meaningful benefit (2) Weakness generalized: (3) Severe muscle deconditioning: He declines return to pulm rehab Suggested using a pedaler at home which can be used both on the floor for BLE and palce don tabletop for BUE exercising He has a recumbent bike at home but due to his many orthopedic joint aches and ROM limitations, he notes he would likely not be able to get up and out of the machine nor could he use it with extent of joint disease (4) COPD, severe: repeat PFT per pulm med (5) Advanced care planning/counseling discussion: Met with pt and face to face for 25min at bedside he is very determined to be dc today, noting that hospital stay exacerbates his PTSD I have updated primary team of his request for dc We discussed and I reviewed the nature of COPD: the ATS and ERS define COPD as a preventable and treatable disease state characterized by airflow limitation that is not fully reversible. The airflow limitation is usually progressive and associated with a chronic inflammatory response of the lungs to noxious particles or gases. COPD is incurable and will worsen over time. Sometimes when patients stop smoking, the progression will slow down, but all COPD over time will get worse. Medications become less effective and do not work as well; in general these patients experience a significant decline in QOL. Patients with COPD constitute a large group of symptomatic patients with a common, chronic, and generally progressive respiratory disorder. Recent studies indicate that patients in this group, on the whole, receive less palliative care in their terminal phase than patients with lung cancer. We discussed that Palliative care can begin when a patient becomes symptomatic and is usually concurrent with restorative and life-prolonging care. Palliative care is titrated, analogous to curative/restorative care, to meet the needs of the patient and family in accord with their preferences. We will help manage their symptoms and assist with goals of care discussions. We reviewed his AD from 2005 which was scanned in [facility] record. He reaffirms DNR/DNI. I discussed the POLST form patient/family today. We specifically discussed that POLST is an approach to end-of-life planning that emphasizes patients wishes about the care they receive. The POLST Paradigm, which stands for Physician Orders for Life Sustaining Treatment, is an approach to end-of-life planning emphasizing: (i) advance care planning conversations between patients, health customer care voice consultant and loved ones; (ii) shared decision-making between a patient and his/her health career education teacher about the care the patient would like to receive at the end of his/her life and (iii) ensuring patient wishes are honored. We discussed that the POLST form is a medical order indicating a patients wishes regarding treatments that are commonly used in a medical crisis. It is a medical order, therefore emergency personnel such as paramedics, sorter laundry articles, and emergency physicians must follow these orders. Without a POLST form, paramedics and sorter laundry articles are required to provide every possible medical treatment to sustain life. Patient/family advised that the [place] POLST form is a very bright PINK colored form designed for immediate, easy location and which gives them a way to tell doctors, nurses, and other health customer care voice consultant what types of treatment they do and do not want. A POLST form was NOT completed today, he is willing t do this in outpatient clinic but for today just wants to be dc. he reaffirms selections of AD and is surrogate decision maker. pt and verbalized understanding and all questions were answered to their apparent satisfaction. (6) Palliative care by specialist: Met with pt/family. Provided overview of Palliative Medicine, a subspecialty that provides specialized medical care for people living with a serious illness by offering a focus on quality of life. Palliative Medicine is often conflated with hospice: I advised patient/family that Palliative and hospice can be partners but we are not the same. It is important to understand the difference so that we may be informed, and not afraid. Palliative Medicine works to improve QOL through reduction of symptom burden/more control over their illness, for both the patient and family. Palliative medicine clinicians are board certified, specially-trained and another member of the patient's medical care team. We often provide an extra layer of support because our care is based on the needs of the patient, not the prognosis; as such, it's appropriate at any age/advancing stage of a serious illness and can be provided along with curative treatment. Palliative Medicine clinicians are also trained in advanced communication methodologies, to facilitate complex discussions about advanced illness planning, which are needed to help assure that the treatment choices match the patient's goals, aka delivering Goal Concordant care. Finally, we discussed that hospice is a visiting nurse service that focuses on care delivered at the very end of life for patients with terminal illness, with life expectancy less than 6 month. Plan * pt actively seeking dc today and feels his PTSD is worsening by staying here - primary team made aware * pt offered follow up with me in OP clinic, contact info provided. * pt encouraged to follow up sooner with OSH Psych for readjustment of PTSD meds. H does not feel current regimen is helping. We discussed the potential benefits of adding non pharm interventions to his routine which can include but are not limited to meditation, focused breathing exercises, chair or bed based yoga, gentle cardio as outlined above, psychosocial counseling, support groups for lung patients and dietary changes such as removing processed sugars and foods and favoring transitioning to a more whole-foods based approach. * Chair based mobility exercises 1. https://Xenith.SnapShop m/12-ggpuw-fsmpdkfzr-hga-yldosvb-hxcjbn-guide/ 2. https://www.cancer.org/treatment/xdaldxmlfeol-cyvryo-jlr-after-treatment/be-heal csq-bsuut-guqvtgmvt/pwxwwret-jwixkhxn-lho-mtp-efilyc-tsaxzff.html 3. https://www.cancer.net/blog/2017-12/amyqhyuh-gpppjic-oxu-8-oclv-hctoec-with-canc er 4. https://patientpower.info/living-well/jsnhneaj-yaw-wqugwcv/ooayp-qgbnyhy-iisdvub vtsaa-kaopkr-grouyshsr-qup-sajvqe-pxrmypcb 5. [facility] Cancer Patient Yoga Video: https://www.Embotics.com/watch?v=hiEx7p6MpGtQwdhjoar [facility] Podcast: [email or web address]?gclid=[email or web address] [email or web address] 8QAvD_[email or web address]&h=[email or web address] Thank you for allowing us to participate in the ongoing care of this patient. Please don't hesitate to call or page with any additional concerns. Dr. Patricia Zabala DNP Director, Palliative Care History of Present Illness Reason for Consultation: goals of care; HFrEF, non cabg candidate, lung CA. Requesting Physician: Clifton SAEED Attending Physician: Malaika Espinal MD History of Present Illness Chris is a 77yo male who presented from home with persistent chest pain. He has a hx of Unstable angina, Mar 2023 NSTEMI (declined CABG), Multi-vessel CAD (May 08, 2005 [place] demons trated multivessel coronary artery disease with a 100% occluded proximal RCA with distal imyg-tl-yjkhs collaterals from a high atrial circumflex branch, 100% occlusion of the proximal left circumflex, and a 30% mid LAD stenosis.); HFrEF,; Peripheral arterial disease; Peripheral vascular disease with 100% occlusion of the right common femoral artery and 50% stenosis in the right common iliac artery via April 2005 angiography; Anemia; PTSD (post-traumatic stress disorder); smoking related COPD/Longstanding tobacco user, smoking and upwards of 5 packs/day, currently smoking 1.5 packs/day.; prior adenoca Right lung treated with SBRT; renal dysfunction; YISSEL on BiPAP, DM, peripheral neuropathy, GERD, 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 He shares that his PTSD is from medical procedures. He tells me it is triggering just to remain in the hospital. shares that he is followed by [facility] Psych at [facility]. He would like to be dc home today "MARCIANO" shares he is due for injections into his knees bc he is not a TKR candidate due to his heart He feels disheartened by this He feels his QOL is generally fairly decent until he has a flare up He reports more good days than bad days. 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 He admits to diffuse generalized pain: back, shoulders, anterior chest wall, arms, legs, hips, knees. He generally feels physically limited due to his various aches and pains. He would like better pain mgt and also would like to see if there are other meds to improve his PTSD related anxiety and depression bc the current regimen with Buspar, risperidone and fluoxetine is not enough/not helping. From [employer] EMR Link Review 04/22/2023 Spoke with patients , Carrie. There is ACP documentation scanned into the patients chart that remains current with his current wishes. He chooses no interventions/DNR. Bianca Tao RN PFT shows evidence of moderate obstructive ventilatory impairment. There is significant bronchodilator response. Lung volumes are suggestive of air trapping. Uncorrected diffusion capacity is severely decreased at 41% of predicted. 04/16/23 CT Surgery consult with Sohan Hayden MD: "Walter has severe left main stenosis with reduced EF and NSTEMI. I discussed his cath findings with Dr. Neumann and there is no PCI option due to aneurysmal disease of left main. Our remaining options are medical therapy or surgical revascularization. 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 We discussed these options (Walter, his , and his friend and I) in detail. I estimated his surgical risk of major complications to be in the 40-50%, mostly driven by severe lung disease and porcelain aorta, and mortality rate of 10-20%. The other option is medical therapy, which probably has a mortality risk of 30-40% in the short term (months). After careful consideration of the above, he expressed that he is not willing to have surgery and prefers to be treated with medicine. He says his quality of life wasn't very good since he retired due to his breathing and orthopedic issues, and this is driving his decision, in addition to surgical risk." Cardiac cath 04/16/23: * Coronary disease - hemodynamically significant * RCA is known 100% BIOGEOGRAPHER with L-R collaterals via LAD * LCX is known 100% BIOGEOGRAPHER with minimal collaterals * LMCA has critical stenosis and is severely aneurysmal * Right radial access s/p radial band ECHO 04/15/23: ECHO pre EF 35-40% moderate aortic stenosis and mild to mod MR. LV wall function was reduced TTE 07/30/2022 Interpretation Summary The qualitative LV ejection fraction is 65-69% (normal). The left ventricular cavity size is normal. The LV wall thickness is mildly increased (concentric). The left ventricular wall motion is normal. The left ventricular diastolic function is mildly abnormal (grade I). Moderate aortic valve stenosis. LexiScan Nuclear stress test Interpretation Summary This study has what is deemed to be a "significant abnormality" consistent with ACT 112. See additional documentation regarding notification of patient and ordering provider. Gated SPECT imaging reveals normal myocardial thickening and wall motion. The left ventricular ejection fraction was calculated to be 56%. Overall this pharmacologic nuclear stress test reveals a moderate amount of ischemia in the inferior and inferior basilar myocardium. These findings are most consistent with a right coronary or left circumflex arteries. This study has what is deemed to be a "significant abnormality" consistent with ACT 112. See additional documentation regarding notification of patient and ordering provider. ONCOLOGY HX Adenocarcinoma of R lung: Diagnosed [address] Shawna [place] [facility] [place]: NSCLC, Adenocarcinoma, EGFR/ALK/ROS1/BRAF negative, PDL1 5% SITE OF MALIGNANCY: Right Upper Lobe Lung, 1.2cm Right Lower Lobe Lung, 3.2cm HISTOPATHOLOGY: NSCLC, Adenocarcinoma, EGFR/ALK/ROS1/BRAF negative, PDL1 5% STAGE: 2 Synchronous RUL and RLL Stage I primaries, vs. M1a Stage IV CURRENT THERAPY: Clinico-radiographic Survaillance PRIOR THERAPY: 08/19/2020-08/30/2020 Definitive hypofrac stereo RT to RUL, 7000cGy in 10 fractions 08/19/2020-08/29/2020 Definitive SBRT to RLL, 5000cGy in 5 fractions DIAGNOSTIC HISTORY: 05/03/2020 CT thorax, noting Severe emphysematous changes with interval increase in size of two irregular pulmonary nodules, one measuring 13 mm in the right lung apex in the other measuring 8 mm in the left lower lobe, as above. Consider correlation with PET/CT scan for further evaluation, versus close interval follow-up with noncontrast CT chest in 3-6 months. Other stable bilateral pulmonary nodules, including a mixed solid and ground-glass nodule in the right lower, as above. 06/12/2020 Bronchoscopy and biopsy with findings of right lower lobe nodule, path NSCLC, [place] 05/29/2020 PET-CT noting Slowly increase in size of right upper lobe pulmonary nodule and right lower lobe mixed solid and ground-glass nodule with mild FDG uptake, suspicious for neoplasm. Recommend biopsy for further evaluation. No mediastinal or hilar lymphadenopathy. 07/31/2020 MRI brain, No acute intracranial abnormality or evidence of intracranial metastatic disease. Family History: Father killed in an automobile accident. Mother CVA. Brother with IL at 55. Allergies Allergy/AdvReac Type Severity Reaction Status Date / Time acetaminophen AdvReac Severe SEVERE Verified 07/12/23 14:33 HEADACHE-PER PT "BRAIN SWELLS". Home Medications Medication Instructions Recorded Confirmed Type albuterol sulfate 2.5 mg/3 mL 2.5 mg inhalation DIRECTED PRN 04/14/23 07/12/23 History (0.083 %) solution for nebulization Shortness Of Breath Or Wheezing albuterol sulfate 90 mcg/actuation 2 puff inhalation QID PRN 04/14/23 07/12/23 History aerosol inhaler (Ventolin HFA) Shortness Of Breath Or Wheezing apixaban 5 mg tablet (Eliquis) 5 mg PO BID 04/14/23 07/12/23 History atorvastatin 80 mg tablet 80 mg PO HS 04/14/23 07/12/23 History buspirone 10 mg tablet 10 - 20 mg PO BID PRN Anxiety 04/14/23 07/12/23 History clonazepam 0.5 mg tablet 0.5 mg PO HS 04/14/23 07/12/23 History colchicine 0.6 mg tablet 0.6 mg PO DIRECTED PRN GOUT 04/14/23 07/12/23 History FLARE UP cyanocobalamin (vitamin B-12) 1,000 mcg PO QAM 04/14/23 07/12/23 History 1,000 mcg tablet (Vitamin B-12) fluoxetine 20 mg capsule 60 mg PO QAM 04/14/23 07/12/23 History fluticasone propionate 230 2 puff inhalation BID 04/14/23 07/12/23 History mcg-salmeterol 21 mcg/actuation HFA inhaler (Advair HFA) fluticasone propionate 50 2 spray intranasal QA 04/14/23 07/12/23 History mcg/actuation nasal spray,suspension furosemide 40 mg tablet (Lasix) 40 mg PO [facility] 04/14/23 07/12/23 History gabapentin 300 mg capsule 300 mg PO 04/14/23 07/12/23 History iron,carbonyl 65 mg-vitamin C 125 1 tab PO QA 04/14/23 07/12/23 History mg tablet,delayed release (Vitron-C) isosorbide mononitrate 60 mg 60 mg PO QA 04/14/23 07/12/23 History tablet,extended release 24 hr metoprolol succinate 25 mg 25 mg PO QA 04/14/23 07/12/23 History tablet,extended release 24 hr mirtazapine 15 mg tablet 7.5 mg PO 04/14/23 07/12/23 History multivitamin 1 tab PO QA 04/14/23 07/12/23 History omeprazole 20 mg capsule,delayed 20 mg PO [facility] 04/14/23 07/12/23 History release risperidone 0.5 mg tablet 0.5 mg PO 04/14/23 07/12/23 History roflumilast 500 mcg tablet 500 mcg PO [facility] 04/14/23 07/12/23 History tiotropium bromide 18 mcg capsule 1 cap inhalation [facility] 04/14/23 07/12/23 History with inhalation device (Spiriva with HandiHaler) budesonide 0.25 mg/2 mL suspension 0.25 mg inhalation BID 07/12/23 07/12/23 History for nebulization clopidogrel 75 mg tablet 75 mg PO [facility] 07/12/23 07/12/23 History metformin 500 mg tablet,extended 500 mg PO BID 07/12/23 07/12/23 History release 24 hr Patient History Medical History (Updated 07/13/23 @ 13:07 by Patricia Zabala DNP) Palliative care by specialist Advanced care planning/counseling discussion COPD, severe Severe muscle deconditioning Weakness generalized Dyspnea and respiratory abnormalities Pneumonia Chronic anticoagulation History of CVA (cerebrovascular accident) HLD (hyperlipidemia) Tobacco use COPD (chronic obstructive pulmonary disease) Anemia of chronic disease Adenocarcinoma of left lung Social History Smoking Status: Current every day smoker Tobacco Type: Cigarettes Cigarettes Per Day: 1.5 ppd; Do You Dip or Chew Tobacco: No; Hx Alcohol Use: No Hx Substance Use: No Preferred Language: Croatian Communication Ability: Effective Guide Required: No Beliefs That Will Affect Care: None Current Living Situation: Spouse Feels Safe at Home: Yes Safety Concerns: Feels Safe At This Time Assistive Devices: CPAP and Walker Review of Systems Review of Systems: All systems reviewed & are unremarkable except as noted in Subjective Physical Exam Physical Exam: chronically ill appearing male, NAD at time of my visit ALMAGUER and conversational dyspnea noted mild use of accessory muscles neck supple and without stridor resp effort increased, speaks in shorter sentences, no overt wheeze intermittent bronchitic cough without rhonchi raspy voice at times S1S2, irreg, no overt JVD abd distended, non tender BS+ Gen weakness BLE with diminished strength and muscle wasting, +vascular insuff changes bilat pre tibial surfaces with signif hyperpigmentation Skin pale, warm onychomycotic nails BUE AAOx3, cooperative and pleasant Results & Data Vital Signs (Past 12 Hours) Vital Signs Temp Pulse Pulse Resp BP Pulse Ox O2 Del Method 07/13/23 07:37 36.4 C L 83 18 150/76 H 93 CPAP 07/13/23 07:04 60 18 92 CPAP 07/13/23 03:35 58 L 16 94 07/13/23 02:22 36.8 C 71 18 158/88 H 90 CPAP 07/12/23 23:15 68 20 90 07/12/23 23:14 82 07/12/23 22:36 37.0 C 71 18 132/79 90 Room Air 07/12/23 21:20 Room Air FiO2 07/13/23 07:37 07/13/23 07:04 21 07/13/23 03:35 07/13/23 02:22 07/12/23 23:15 07/12/23 23:14 07/12/23 22:36 07/12/23 21:20 Laboratory Results data reviewed see HPI Diagnostic Findings data reviewed see HPI PG Care Time/CCT Total # of Minutes Spent Total Time Spent with Patient: Total time spent is greater than 50% in coordination of care (as documented) at patient's floor/unit and/or counseling patient: I spent 90 minutes overall addressing this complex case: 25 min in medical data review/discussion with referring provider(s) and/or preparation for the visit incl OSH data review and discussion with OSH teams 20 min in direct interaction with the patient/exam 25 min in Advance Care Planning/Goals of Care discussions as detailed above in note (must be >16min) 10 min in subsequent review and synthesis of assessment and plan 10 min communicating with other providers regarding the patient's case: Advanced Care Planning 26477 Advanced Care Planning 30 [place] [address] IN/OBS CONSULT LVL 5,80M Patient Type New History Comprehensive Exam Comprehensive Medical Decision Making High Complexity Diagnoses Dyspnea and respiratory abnormalities R06.00; R06.89 Weakness generalized R53.1 Severe muscle deconditioning R29.898 COPD, severe J44.9 Advanced care planning/counseling discussion Z71.89 Palliative care by specialist Z51.5 Additional Codes Advanced Care Planning - 52672 Advanced Care Planning 30 Min: [id number] Advanced Care Planning 30 Min ([id number])
[2023-07-13] MEDS: LANTUS PER UNIT CHARGE SC SCH (10:08)
[2023-07-13] MEDS: predniSONE 20 MG TAB PO SCH (10:08)
--- NOTE | 2023-07-13 12:57 | Pharmacy Report ---
Pharmacy Glycemic Short Note 2 - Date of Service July 13, 2023 - Glycemic Short BSG Results (Last 24 hours): 07/12/23 07/12/23 07/13/23 17:12 20:14 07:36 Glucose POC Glucose 123 H 142 H 113 H 07/13/23 07/13/23 07:42 10:53 Glucose 107 H POC Glucose 158 H OUTPATIENT ANTIDIABETIC REGIMEN: * Metformin 500 mg PO BID * A1c 6.4% 07/13/23 ASSESSMENT: * Patient with history of adenocarcinoma of the lung, COPD, type 2 diabetes admitted with chest pain. Chest CT with multiple findings * Blood sugars have been all <160 mg/dL at current time. Prednisone 20 mg BID added to regimen this morning- will start basal in anticipation of increased BSGs with steroids. * Continue current novolog parameters/overnight checks PLAN FOR INPATIENT GLYCEMIC CONTROL: * Hold outpatient oral diabetes medications * Basal insulin * Lantus 15 units SQ qAM * Bolus insulin * NovoLog per scale ACHS or Q6hrs while NPO * Goal Range: Low 110 mg/dL - High 140 mg/dL * Correction Factor: 30 mg/dL/unit * Nutritional / Prandial insulin per carb ratio of 1 unit per 10 grams CHO consumed
--- NOTE | 2023-07-13 13:51 | Discharge Summary ---
Discharge Summary Date of Service July 13, 2023 Notes For Next Care Provider Per Pulmonology, recommending the following: -PET/CT Outpatient. If pulmonary nodules and/or mediastinal lymphadenopathy noted, then can do CT guided biopsy vs. EBUS +/- robotic bronchoscopy -Continue CPAP use for YISSEL -Smoking Cessation -Incentive spirometry Medication Changes From Visit cefdinir 300mg BID x 4 days Prednisone 20mg BID x 4 days Azithromycin 500mg daily x 3 days Admission HPI Per Admitting Provider Mr. Don is a 77-year-old unwell complex cardiac gentleman who presented to the ED today from [facility] with complaints of back pain radiating into his scapular region and into the anterior portion of his chest and up into his neck that started on . He was given aspirin 324 mg and nitro SL x 3 and route with moderate relief by EMS today. On March 16 he had an NSTEMI and was transferred to [facility] without cardiac intervention. Discussed patient hospital stay in [place]. He stated that the decision was made to focus on medical management due to 100% occlusion in two vessels. Patient with known significant multivessel coronary artery disease including a 100% occluded RCA and a 100% occluded left circumflex with mild mid LAD stenosis via remote (April 2005). He is a persistent 1.5 PPD smoker x [id number] history with chronic nonproductive cough with no intensions on quitting. Has a past medical history of NSTEMI 04/10 (medically managed), adenocarcinoma of the lung (radiation),H/O CVA 12/09 (On Eliquis), COPD, current smoker, anemia of unknown origin, carotid stenosis, AAA, depression, PTSD, YISSEL, HTN, HLD. Today, no leukocytosis, troponin 17.5--> 21. BMP historically 337. Chest x-ray: 1. Bibasilar opacities and interstitial thickening which could reflect pneumonia or pulmonary edema. 2. 1.1 cm left midlung nodule which likely corresponds to the left lower lobe nodule shown on prior CT. Right lower lobe nodule shown on prior CT obscured on this study. These nodules can be assessed on chest CT which has been ordered. Chest CT: 1. No thoracic aortic dissection. No pulmonary emboli. 2. Mild interstitial pulmonary edema with small right and trace left pleural effusions. 3. Airspace opacity within the superior segment of the right lower lobe suggestive of pneumonia. 4. Abrupt cut off of segmental bronchi within the right lower lobe with an adjacent 5.1 cm irregular mass-like density at site of previously described groundglass nodule. This may reflect a neoplasm or pneumonia. This could be assessed with bronchoscopy or short-term follow-up chest CT in one month. 5. A few irregular nodular densities within the left lung, as described above. These could also be neoplastic or infectious in etiology and should be assessed on short-term follow-up CT to ensure resolution. 6. Emphysema. 7. Mildly enlarged mediastinal lymph nodes, increased in size since prior exam. These may be reactive however should be assessed on follow-up CT to ensure resolution. He follows with Dr. Winter' in [place] with Oncology for his lung cancer. He reportedly has completed radiation a few years ago. He just has had a chest CT last week and is to attend a follow up next week to discuss the results and compare nodule size. Lengthy overall conversation with patient and his at bedside about his overarching goals of care. He states that he has significant PTSD stemming from a medical situation where years ago his was 'lost' in the hospital and they looked for her in the [facility]. She is alive and well but being at the hospital is quite triggering. He states that he understands that his heart and lung conditions are quite complex. He also voices understanding that he knows that there will come a time where medication changes will have been exhausted. He said that he is not fearful of dying from either of his diseases and he predicts that he will pass away within the next year. We discussed the difference between Palliative Medicine and Hospice and how each could benefit him at different stages of illness. He certainly would qualify for Hospice given his lung cancer and he is receptive to a repeat ECHO to determine a further worsening of his EF. His last EF would not qualify him for hospice. He was receptive to having a discussion about enrolling in Hospice. For now, he would wish to remain a full code; however, I suspect with further conversation he would change to a DNR/DNI. He is sitting in his hospital bed AAOx4 and able to hold meaningful conversation. He does have a nonproductive cough and does use his diaphragm for accessory muscle breathing during some of our conversation. He denies current chest pain, but does have reproducible chest pain on examination anteriorly. He did take his Lasix this AM. He has an audible murmur LSB, +1-2 BL LE edema with dusky PVD presentation. Patient will be admitted for further evaluation and management of his chest pain with a repeat ECHO, continue IV abx for treatment of PNA, involve Pulmonary and Cardiology, trend troponin, and involve palliative medicine. Admission Exam Per Admitting Provider Neuro: AAOx4, PERRLA, no aphagia, memory changes, CNII-XII grossly intact HEENT: head normocephalic, atraumatic, moist mucus membranes CV: S1/S2, (+) M (+) reproducible chest pain. (+)2 LE edema, cap refill < 3 seconds. Dusky villagomez B/L LE with plaques on skins B/L Resp: Lungs CTA in all rhodes. On RA GI: Abdomen S/NT/ND, Ax4 bowel sounds, (-) CVA tenderness Musculoskeletal: 5/5 B/L UE strength, 5/5 B/L LE strength. (+) gait disturbance since CVA in November 2022. Skin: (-) rashes , (-) erythema. Psych: euthymic, but tearful mood Principal Dx & Hospital Course #1 = Principal Diagnosis (1) Chest pain: (2) Adenocarcinoma of left lung: (3) Depression: (4) Anemia of chronic disease: (5) COPD (chronic obstructive pulmonary disease): (6) Tobacco use: (7) HLD (hyperlipidemia): (8) History of CVA (cerebrovascular accident): (9) Chronic anticoagulation: (10) Pneumonia: Plan Pt is a 77yoM with PMHx significant for NSTEMI 04/10 (medically managed), adenocarcinoma of the lung (s/p radiation), H/O CVA 12/09 (On Eliquis), COPD, current smoker, chronic anemia, carotid stenosis, AAA, depression, PTSD, YISSEL, HTN, HLD presenting with atypical chest pain. Atypical Chest pain CAD: History of NSTEMI: Complaints of back pain radiating into his scapular region and into the anterior portion of his chest and up into his neck that started about 4 days [employer] Given aspirin 324 mg and nitro SL x 3 en route with moderate relief by EMS Initial Troponin 17.5, remained flat Echo noting mild concentric LVH, hypokinesis to akinesis of inferior, posterior and lateral wall motion, calcified aortic valve leaflets, moderate aortic stenos is, trace aortic regurg Was seen by Cardiology, no acute interventions -chest pain likely noncardiac in nature -outpatient cardiology follow up Likely related to MSK/pneumonia/pulmonary adenocarcinoma/pleurisy picture Treatment as per below with pcp followup PNA: Pt presenting with atypical chest pain No increased oxygen requirement Afebrile with no leukocytosis noted Procalcitonin normal CXR: Bibasilar opacities and interstitial thickening which could reflect pneumonia or pulmonary edema. 1.1 cm left midlung nodule which likely corresponds to the left lower lobe nodule shown on prior CT Chest CT noting RLL possible pneumonia Was started on Ceftriaxone + Azithromycin in ED; continue and adjust based on culture results Adenocarcinoma of R lung: Chronic Diagnosed [address] Winter' in [place]. he just had a chest CT a few days ago with a follow up planned next week to compare his scans Completed radiation a few years ago HISTOPATHOLOGY: NSCLC, Adenocarcinoma, EGFR/ALK/ROS1/BRAF negative, PDL1 5% CXR: Bibasilar opacities and interstitial thickening which could reflect pneumonia or pulmonary edema. 1.1 cm left midlung nodule which likely corresponds to the left lower lobe nodule shown on prior CT. Right lower lobe nodule shown on prior CT obscured on this study. These nodules can be assessed on chest CT which has been ordered. Chest CT: 1. No thoracic aortic dissection. No pulmonary emboli. 2. Mild interstitial pulmonary edema with small right and trace left pleural effusions. 3. Airspace opacity within the superior segment of the right lower lobe suggestive of pneumonia. 4. Abrupt cut off of segmental bronchi within the right lower lobe with an adjacent 5.1 cm irregular mass-like density at site of previously described groundglass nodule. This may reflect a neoplasm or pneumonia. This could be assessed with bronchoscopy or short-term follow-up chest CT in one month. 5. A few irregular nodular densities within the left lung, as described above. These could also be neoplastic or infectious in etiology and should be assessed on short-term follow-up CT to ensure resolution. 6. Emphysema. 7. Mildly enlarged mediastinal lymph nodes, increased in size since prior ex am. These may be reactive however should be assessed on follow-up CT to ensure resolution. Consult Pulmonary for further recommendations as he has stated he doesn't feel relief with his inhalers; was recently recommended to start Advair/Spiriva and Pulmicort with continuation of his rescue inhalers Goals of care; counseling: Lengthy overall conversation with patient and his at bedside about his overarching goals of care. He states that he has significant PTSD stemming from a medical situation where years ago his was 'lost' in the hospital and they looked for her in the [facility]. She is alive and well but being at the hospital is quite triggering. He states that he understands that his heart and lung conditions are quite complex. He also voices understanding that he knows that there will come a time where medication changes will have been exhausted. He said that he is not fearful of dying from either of his diseases and he predicts that he will pass away within the next year. We discussed the difference between Palliative Medicine and Hospice and how each could benefit him at different stages of illness. He certainly would qualify for Hospice given his lung cancer and he is receptive to a repeat ECHO to determine a further worsening of his EF. His last EF would not qualify him for hospice. He was receptive to having a discussion about enrolling in Hospice. For now, he would wish to remain a full code; however, I suspect with further conversation he would change to a DNR/DNI. H/O CVA: Chronic Takes Eliquis;continue for now Anemia of chronic disease: Had EGD and colonoscopy in December 2022. EGD showed gastric polyp. Colonoscopy and polypectomy and GI recommended plan for repeat colonoscopy in 2 years Anemia workup 06/03/2023: Iron 50, TIBC 295, ferritin 42 Started on Vitron C by GI No clear etiology of anemia Per outpatient records consider hematology Currently no overt signs of bleeding COPD: Tobacco use: Chronic Ongoing tobacco abuse smokes 1.5 pack of cigarettes daily Needs counseling, but has stated he has no interest in quitting. He has been smoking since he was 7 years old Follows with pulmonology as outpatient; most recently advised to continue Advair/Spiriva and add Pulmicort twice daily with rescue albuterol Diabetes mellitus type 2: Chronic Check A1C SSI ACHS while inpatient Glycemic pharmacy YISSEL: Chronic Wears BiPAP at home nightly; continue while here per protocol HTN: Chronic Takes Imdur, metoprolol; continue HLD: Chronic On high dose statin; Takes Atorvastatin;continue Depression: Chronic Takes fluoxetine;continue Disposition: PCP: Dr. Newby Code Status: Full Code VTE Prophylaxis: On Eliquis I spent a total of 87 minutes coordinating, documenting, and providing care for this patient excluding time spent in the performance of separately billed services. All of the aforementioned completed while collaborating with the assigned attending physician for a full treatment plan. Please see their addendum for further details. Updated Medication List Medication Instructions Recorded Confirmed Type albuterol sulfate 2.5 mg/3 mL 2.5 mg inhalation DIRECTED PRN 04/14/23 07/12/23 History (0.083 %) solution for nebulization Shortness Of Breath Or Wheezing albuterol sulfate 90 mcg/actuation 2 puff inhalation QID PRN 04/14/23 07/12/23 History aerosol inhaler (Ventolin HFA) Shortness Of Breath Or Wheezing apixaban 5 mg tablet (Eliquis) 5 mg PO BID 04/14/23 07/12/23 History atorvastatin 80 mg tablet 80 mg PO HS 04/14/23 07/12/23 History buspirone 10 mg tablet 10 - 20 mg PO BID PRN Anxiety 04/14/23 07/12/23 History clonazepam 0.5 mg tablet 0.5 mg PO HS 04/14/23 07/12/23 History colchicine 0.6 mg tablet 0.6 mg PO DIRECTED PRN GOUT 04/14/23 07/12/23 History FLARE UP cyanocobalamin (vitamin B-12) 1,000 mcg PO QAM 04/14/23 07/12/23 History 1,000 mcg tablet (Vitamin B-12) fluoxetine 20 mg capsule 60 mg PO QAM 04/14/23 07/12/23 History fluticasone propionate 230 2 puff inhalation BID 04/14/23 07/12/23 History mcg-salmeterol 21 mcg/actuation HFA inhaler (Advair HFA) fluticasone propionate 50 2 spray intranasal QAM 04/14/23 07/12/23 History mcg/actuation nasal spray,suspension furosemide 40 mg tablet (Lasix) 40 mg PO QAM 04/14/23 07/12/23 History gabapentin 300 mg capsule 300 mg PO HS 04/14/23 07/12/23 History iron,carbonyl 65 mg-vitamin C 125 1 tab PO QAM 04/14/23 07/12/23 History mg tablet,delayed release (Vitron-C) isosorbide mononitrate 60 mg 60 mg PO QAM 04/14/23 07/12/23 History tablet,extended release 24 hr metoprolol succinate 25 mg 25 mg PO QAM 04/14/23 07/12/23 History tablet,extended release 24 hr mirtazapine 15 mg tablet 7.5 mg PO HS 04/14/23 07/12/23 History multivitamin 1 tab PO QAM 04/14/23 07/12/23 History omeprazole 20 mg capsule,delayed 20 mg PO QAM 04/14/23 07/12/23 History release risperidone 0.5 mg tablet 0.5 mg PO HS 04/14/23 07/12/23 History roflumilast 500 mcg tablet 500 mcg PO QAM 04/14/23 07/12/23 History tiotropium bromide 18 mcg capsule 1 cap inhalation QAM 04/14/23 07/12/23 History with inhalation device (Spiriva with HandiHaler) budesonide 0.25 mg/2 mL suspension 0.25 mg inhalation BID 07/12/23 07/12/23 History for nebulization clopidogrel 75 mg tablet 75 mg PO QAM 07/12/23 07/12/23 History metformin 500 mg tablet,extended 500 mg PO BID 07/12/23 07/12/23 History release 24 hr azithromycin 500 mg tablet See Rx Instructions PO .COMPLEX #3 07/13/23 Rx tabs cefdinir 300 mg capsule 300 mg PO BID #8 caps 07/13/23 Rx prednisone 20 mg tablet 20 mg PO BID #8 tabs 07/13/23 Rx Hospital Stay Data Consultations 07/12/23 14:06 ED Decision to Admit Stat 07/12/23 15:54 Consult Pulmonology Routine 07/12/23 16:38 Consult Cardiology Routine Consult Palliative Care Routine Diagnostic Imagining Performed 07/12/23 11:52 CT angio chest dissec wo/w con Stat Chest X-Ray 07/12/23 11:32 XR chest 1V portable CLINICAL HISTORY: Chest pain, nonspecific COMPARISON STUDY: Chest CT April 25, 2018. Chest radiograph April 14, 2023. FINDINGS: There is no pneumothorax or pleural effusion. There is underlying emphysema. Bibasilar opacities, greater on the right, and interstitial thickening are present. A 1.1 cm left midlung nodule likely corresponds to a nodule within the superior segment of the left lower lobe on prior chest CT. The previously described groundglass nodule within the right lower lobe on that exam is not well-visualized by radiography. IMPRESSION: 1. Bibasilar opacities and interstitial thickening which could reflect pneumonia or pulmonary edema. 2. 1.1 cm left midlung nodule which likely corresponds to the left lower lobe nodule shown on prior CT. Right lower lobe nodule shown on prior CT obscured on this study. These nodules can be assessed on chest CT which has been ordered. ACT 112: Negative or not required by law. Electronically signed by: Alden Isidro M.D. 07/12/2023 11:59 AM Chest CTA 07/12/23 11:52 CT ANGIOGRAPHY OF THE CHEST DISSECTION PROTOCOL CLINICAL HISTORY: Chest and back pain. Evaluate for aortic dissection. COMPARISON STUDY: Chest CT April 25, 2018. Chest radiograph performed earlier today. PET/CT May 11, 2016. TECHNIQUE: Before and following the IV administration of 112 mL of Optiray, helical axial images of the chest were obtained. Maximal intensity projections and sagittal and coronal reformats were viewed on an independent 3D workstation. IV contrast was administered without complication. Automated exposure control was utilized for the study. A dose lowering technique was utilized adhering to the principles of ALARA. CT DOSE: 1678.55 mGy.cm FINDINGS: There is mild dilatation of the ascending aorta, measuring 4 cm. There is moderate atherosclerotic plaque of the thoracic aorta. No thoracic aortic dissection is present. There is moderate cardiomegaly and coronary artery calcification. There is trace pericardial effusion. There is no pneumothorax. Small right and trace left pleural effusions are present. There are no pulmonary emboli. Moderate emphysema. Airspace opacity within the superior segment of the right lower lobe favors pneumonia. A few irregular nodular opacities within the left upper lobe measure up to 1.5 cm. These are new since CT of April 25, 2018. An 8 mm left lower lobe nodule on image 105 of 253 is unchanged since prior CT. This is likely benign. A 1.1 cm subpleural irregular left lower lobe nodule on image 137 was not confidently identified on prior exam. There are moderate secretions within the airways. There is abrupt cut off of the bronchi to the posterior and lateral basal segments of the right lower lobe on image 136 of 253. Mass-like right lower lobe opacity measures 5.1 cm. This is at site of the previously described groundglass opacity on CT of April 25, 2018. There is interlobular septal thickening. Several mildly enlarged mediastinal lymph nodes are noted. Index right paratracheal node on image 61 measures 1.4 x 1.2 cm. No suspicious lesions within the bony thorax are present. Right renal cysts are incidentally noted. IMPRESSION: 1. No thoracic aortic dissection. No pulmonary emboli. 2. Mild interstitial pulmonary edema with small right and trace left pleural effusions. 3. Airspace opacity within the superior segment of the right lower lobe suggestive of pneumonia. 4. Abrupt cut off of segmental bronchi within the right lower lobe with an adjacent 5.1 cm irregular mass-like density at site of previously described groundglass nodule. This may reflect a neoplasm or pneumonia. This could be assessed with bronchoscopy or short-term follow-up chest CT in one month. 5. A few irregular nodular densities within the left lung, as described above. These could also be neoplastic or infectious in etiology and should be assessed on short-term follow-up CT to ensure resolution. 6. Emphysema. 7. Mildly enlarged mediastinal lymph nodes, increased in size since prior exam. These may be reactive however should be assessed on follow-up CT to ensure resolution. ACT 112: Positive. There are findings on this exam that require communication between the performing entity and the patient following Patient Test Result Information Act ([place] Act 112) guidelines. Electronically signed by: Alden Isidro M.D. 07/12/2023 1:28 PM Discharge Instructions Given to Patient (Per Discharging Provider) Mr. Don, Maykel were admitted with concerning chest pain. You were seen by the cardiology service providers and they determined that your chest pain was likely noncardiac in nature. You were seen by the book jogger and they are recommending further testing in the outpatient setting. They recommend that you quit smoking. They were also treating you for a COPD exacerbation. Please take the azithromycin at home. Please also take the second antibiotic cefdinir and prednisone at home as well for the next 4 days. We made no further changes to your medications. Please continue to take them as prescribed. Please keep close follow up with your book jogger, yeast culture developer and primary care provider after discharge. Please do not hesitate to come back to the emergency room if your symptoms worsen or return. It was a pleasure taking care of you while you were here. Total Time Total Time Spent Total Time Spent (In Minutes): > 30 minutes
[2023-07-13] MEDS ORDERED: cefTRIAXone SODIUM 2,000 MG in DEXTROSE 5 % MINI-B 50 ML IV SCH (14:00)
[2023-07-13] MEDS ORDERED: AZITHROMYCIN 500 MG in DEXTROSE 5% 250 ML IV SCH (14:00)
[2023-07-14] MEDS ORDERED: INSULIN ASPART PER UNIT CHARGE SC SCH
== END 2023-07-13 14:45 | disposition home or self-care (01) | DRG 194 ==
LOC: ED 11:16 → SUATTDRO 14:41 → 2E 14:41
DX: R07.89 Other chest pain; I25.2 Old myocardial infarction; Z79.02 Long term (current) use of antithrombotics/antiplatelets; Z92.3 Personal history of irradiation; J18.9 Pneumonia, unspecified organism; F17.210 Nicotine dependence, cigarettes, uncomplicated; Z88.6 Allergy status to analgesic agent; I11.0 Hypertensive heart disease with heart failure; I50.20 Unspecified systolic (congestive) heart failure; Z86.73 Personal history of transient ischemic attack (TIA), and cerebral infarction without residual deficits; I73.9 Peripheral vascular disease, unspecified; R91.1 Solitary pulmonary nodule; I25.10 Atherosclerotic heart disease of native coronary artery without angina pectoris; Z79.84 Long term (current) use of oral hypoglycemic drugs; Z79.01 Long term (current) use of anticoagulants; Z66 Do not resuscitate; F32.A Depression, unspecified; G47.33 Obstructive sleep apnea (adult) (pediatric); E78.5 Hyperlipidemia, unspecified; C34.31 Malignant neoplasm of lower lobe, right bronchus or lung; J43.9 Emphysema, unspecified; D63.8 Anemia in other chronic diseases classified elsewhere

== ENCOUNTER 2023-12-14 10:50 | Inpatient (IN) ==
--- NOTE | 2023-12-14 11:03 | Emergency Department Note ---
Impression & Plan CVA (cerebrovascular accident), AMS (altered mental status), Anemia ED Provider Note NAME: YUVAL PICKERING AGE: 78 SEX: M : 1945 ARRIVES VIA: Ambulance INFORMANT: Patient ED PROVIDER(S): Nuno Jacobo DO CHIEF COMPLAINT: Weakness HPI: Patient is an 78-year-old male who presents to the ER with a past medical history of COPD, CVA, hyperlipidemia, adeno carcinoma, NSTEMI who presents to the ER for weakness. This has been present for the past 3 days. Additional history obtained from EMS who notes that patient has been having some slurred speech for the past 3 days and has been unable to walk and has been very weak. He denies any headache or change in vision. No chest pain or shortness of breath. No nausea, vomiting, or diarrhea. No dysuria, urgency, or frequency. No other exacerbating or remitting factors. ADDITIONAL HISTORY OBTAINED: Per HPI Chronic Medical/Social Conditions Affecting Care: Per HPI PAST MEDICAL HISTORY:See Below PAST SURGICAL HISTORY:See Below FAMILY HISTORY:See Below SOCIAL HISTORY:See Below HOME MEDICATIONS:See Below ALLERGIES:See Below VITALS:See Below PHYSICAL EXAMINATION: GENERAL: Sitting up in bed, alert, well appearing, well nourished, no distress, non-toxic EYE EXAM: normal conjunctiva. OROPHARYNX: mucous membranes are moist NECK: supple, no nuchal rigidity, no adenopathy, non-tender LUNGS: Clear to auscultation. Normal chest wall mechanics HEART: no murmurs, S1 normal and S2 normal ABDOMEN: abdomen soft, non-tender, normo-active bowel sounds, no masses, no rebound or guarding. UPPER EXTREMITIES: upper extremities are grossly normal. LOWER EXTREMITIES: No pitting edema. NEURO EXAM: Normal sensorium, cranial nerves II-XII intact, normal speech, no weakness of arms, no weakness of legs. No drift. Finger-nose intact. MEDICAL DECISION MAKING: Patient is an 78-year-old male who presents to the ER for the above-stated complaint. IV was established blood work is obtained. Labs show no significant leukocytosis and a mild anemia 11.6. INR was unremarkable. BMP along with LFTs bilirubin was unremarkable. Magnesium was normal. Troponin was negative. UA was clean. CT of the head shows an age-indeterminate infarct which I do favor he is the likely cause of his symptoms. This likely occurred 3 days ago when the symptoms of slurred speech and trouble walking occurred. There is a significant delay for CT reads upwards of nearly 4 hours and family was extremely upset initially requesting be transferred. This was eventually diffused and patient was agreeable to staying here. Patient is chronically on nasal cannula which has not changed. Consults/Care Managements Discussions: Per MDM Triage Nursing notes reviewed. Limited review of prior medical records performed Vital Signs: reviewed and remarkable for no significant abnormalities Differential diagnosis: Infection, dehydration, metabolic abnormality, hypo/hyperglycemia, electrolyte disturbance, anemia, hypoxia, cardiac sources, intracerebral event, toxicologic, neurologic, as well as other pathologies. ER treatment provided: See below Diagnostics interpreted by me include EKG and cardiac monitoring as listed below: -Cardiac Monitoring: An order was placed for continuous cardiac monitoring. The monitor shows a rate of 70 with sinus rhythm. -ECG: Sinus rhythm rate 61 Left axis No PVCs Nonspecific ST wave changes in the lateral leads -Laboratory studies:Interpreted by me as stated above in MDM and shown below. Imaging studies: Xrays: As interpreted by me:none CTs show: CT of the head per my preliminary to rotation showed no obvious large bleed CT angios of the head neck as described above shows likely subacute CVA Procedures:none Critical Care: None Past Med/Surg History Problem List (Updated 12/14/23 @ 18:14 by Nuno Jacobo DO) Anemia (Acute) AMS (altered mental status) (Acute) CVA (cerebrovascular accident) (Acute) Occipital infarction CVA (cerebral vascular accident) Palliative care by specialist Advanced care planning/counseling discussion COPD, severe Severe muscle deconditioning Weakness generalized Dyspnea and respiratory abnormalities Chest pain (Acute) YISSEL (obstructive sleep apnea) Adenocarcinoma of lower lobe of right lung Pneumonia (Acute) Chronic anticoagulation History of CVA (cerebrovascular accident) HLD (hyperlipidemia) Tobacco use COPD (chronic obstructive pulmonary disease) Anemia of chronic disease Adenocarcinoma of left lung Peripheral arterial disease Multi-vessel coronary artery stenosis NSTEMI (non-ST elevated myocardial infarction) Unstable angina Anemia (Acute) Acute non-ST elevation myocardial infarction (NSTEMI) (Acute) PTSD (post-traumatic stress disorder) (Chronic) Left against medical advice (Acute) Chest pain (Acute) Depression (Chronic) Chest pain (Acute) Left against medical advice (Acute) Social History Smoking Status: Current every day smoker Tobacco Type: Cigarettes Cigarettes Per Day: 1.5 ppd; Do You Dip or Chew Tobacco: No; Hx Alcohol Use: No Hx Substance Use: No Preferred Language: [place] Communication Ability: Effective Visor Installer Required: No Beliefs That Will Affect Care: None Current Living Situation: Spouse Feels Safe at Home: Yes Assistive Devices: CPAP and Walker Allergies Allergies Allergy/AdvReac Type Severity Reaction Status Date / Time acetaminophen AdvReac Severe SEVERE Verified 07/12/23 14:33 HEADACHE-PER PT "BRAIN SWELLS". Home Meds Home Medications Medication Instructions Recorded Confirmed albuterol sulfate 2.5 mg/3 mL 2.5 mg inhalation DIRECTED PRN 04/14/23 12/14/23 (0.083 %) solution for nebulization Shortness Of Breath Or Wheezing albuterol sulfate 90 mcg/actuation 2 puff inhalation QID PRN 04/14/23 12/14/23 aerosol inhaler (Ventolin HFA) Shortness Of Breath Or Wheezing apixaban 5 mg tablet (Eliquis) 5 mg PO BID 04/14/23 12/14/23 atorvastatin 80 mg tablet 80 mg PO HS 04/14/23 12/14/23 buspirone 10 mg tablet 10 - 20 mg PO BID PRN Anxiety 04/14/23 12/14/23 clonazepam 0.5 mg tablet 0.5 mg PO HS 04/14/23 12/14/23 colchicine 0.6 mg tablet 0.6 mg PO DIRECTED PRN GOUT 04/14/23 12/14/23 FLARE UP cyanocobalamin (vitamin B-12) 1,000 mcg PO QAM 04/14/23 12/14/23 1,000 mcg tablet (Vitamin B-12) fluoxetine 20 mg capsule 60 mg PO QAM 04/14/23 12/14/23 fluticasone propionate 50 2 spray intranasal QAM 04/14/23 12/14/23 mcg/actuation nasal spray,suspension furosemide 40 mg tablet (Lasix) 40 mg PO QAM 04/14/23 12/14/23 gabapentin 300 mg capsule 300 mg PO HS 04/14/23 12/14/23 iron,carbonyl 65 mg-vitamin C 125 1 tab PO QAM 04/14/23 12/14/23 mg tablet,delayed release (Vitron-C) isosorbide mononitrate 60 mg 60 mg PO QAM 04/14/23 12/14/23 tablet,extended release 24 hr metoprolol succinate 25 mg 25 mg PO QAM 04/14/23 12/14/23 tablet,extended release 24 hr mirtazapine 15 mg tablet 7.5 mg PO HS 04/14/23 12/14/23 multivitamin 1 tab PO QAM 04/14/23 12/14/23 omeprazole 20 mg capsule,delayed 20 mg PO QAM 04/14/23 12/14/23 release risperidone 0.5 mg tablet 0.5 mg PO HS 04/14/23 12/14/23 roflumilast 500 mcg tablet 500 mcg PO QAM 04/14/23 12/14/23 budesonide 0.25 mg/2 mL suspension 0.25 mg inhalation BID 07/12/23 12/14/23 for nebulization clopidogrel 75 mg tablet 75 mg PO QAM 07/12/23 12/14/23 metformin 500 mg tablet,extended 500 mg PO BID 07/12/23 12/14/23 release 24 hr Results & Data (ED) Vital Signs Vital Signs - 24 hr 12/14/23 11:17 12/14/23 12:38 12/14/23 15:00 Temperature 36.8 C Temperature Source Oral Pulse Rate 60 57 L 84 Pulse Rate [Bilateral Apical] Pulse Rate from SpO2 Sensor 76 Pulse Rhythm [Bilateral Apical] Pulse Strength [Bilateral Apical] Respiratory Rate 18 21 Respiratory Effort / Characteristics Non-Labored Spontaneous Respiratory Depth Normal Respiratory Pattern Blood Pressure 99/57 L Blood Pressure [Left Arm] Blood Pressure Mean 71 Blood Pressure Mean [Left Arm] Blood Pressure Position Sitting Blood Pressure Position [Left Arm] Pulse Oximetry 95 95 Oxygen Delivery Method Room Air Sepsis Recent Fever Within 48 Hours No Sepsis New/Unexplained Change in Mental Status No Sepsis Action Taken by Nursing No Action Required 12/14/23 16:39 Temperature Temperature Source Pulse Rate Pulse Rate [Bilateral Apical] 70 Pulse Rate from SpO2 Sensor Pulse Rhythm [Bilateral Apical] Regular Pulse Strength [Bilateral Apical] Normal Respiratory Rate 24 Respiratory Effort / Characteristics Non-Labored Respiratory Depth Normal Respiratory Pattern Regular Blood Pressure Blood Pressure [Left Arm] 138/71 Blood Pressure Mean Blood Pressure Mean [Left Arm] 93 Blood Pressure Position Blood Pressure Position [Left Arm] Lying Pulse Oximetry 94 Oxygen Delivery Method Room Air Sepsis Recent Fever Within 48 Hours Sepsis New/Unexplained Change in Mental Status Sepsis Action Taken by Nursing Laboratory Data 12/14/23 11:12 12/14/23 11:12 Lab Results 12/14/23 12/14/23 Range/Units 11:12 Unknown WBC 5.05 (4.8-10.8) K/ul RBC 4.07 L (4.70-6.10) M/uL Hgb 11.6 L (14.0-18.0) g/dl Hct 37.5 L (42.0-52.0) % MCV 92.1 (80.0-100.0) fL MCH 28.5 (25.0-34.0) pg MCHC 30.9 L (32.0-36.0) g/dL RDW Std Deviation 56.5 H (36.4-46.3) fL RDW Coeff of Adam 16.5 H (11.5-14.5) % Plt Count 172 (130-400) K/uL MPV 9.5 (9.4-12.4) fL Immature Gran % (Auto) 0.2 % Neut % (Auto) 62.2 % Lymph % (Auto) 26.7 % Banks % (Auto) 9.3 % Eos % (Auto) 0.8 % Baso % (Auto) 0.8 % Neut # (Auto) 3.14 (1.40-6.50) K/uL Lymph # (Auto) 1.35 (1.20-3.40) K/uL Banks # (Auto) 0.47 (0.11-0.59) K/uL Eos # (Auto) 0.04 (0.00-0.50) K/uL Baso # (Auto) 0.04 (0.00-0.20) K/uL Immature Gran # (Auto) 0.01 (0.01-0.20) K/uL PT 10.9 (9.0-12.0) Seconds INR 1.0 (0.9-1.1) APTT 25 (21-31) Seconds PTT Ratio 0.9 Sodium 138 (136-145) mmol/L Potassium 4.2 (3.5-5.1) mmol/L Chloride 105 (98-107) mmol/L Carbon Dioxide 28 (21-32) mmol/L Anion Gap 5 (3-11) BUN 14 (6-23) mg/dl Creatinine 1.27 (0.6-1.4) mg/dl Est Cr Clr Drug Dosing 54.2 ml/min Est GFR ( Amer) 61.4 ml/min Est GFR (Non-Af Amer) 53.0 ml/min BUN/Creatinine Ratio 11.0 (10-20) Glucose 101 H (70-99(Fasting)) mg/dl Calcium 9.1 (8.6-10.3) mg/dl Magnesium 1.9 (1.7-2.4) mg/dl Total Bilirubin 0.4 (0.2-1.0) mg/dl AST 13 (13-39) U/L ALT 9 (7-52) U/L Alkaline Phosphatase 83 (34-104) U/L Troponin I High Sens 18.4 (0-20) pg/ml Total Protein 6.3 (6.0-8.3) gm/dl Albumin 3.7 (3.4-5.0) gm/dl Globulin 2.6 (2.5-4.0) gm/dl Albumin/Globulin Ratio 1.4 (0.9-2) Urine Color Yellow Urine Appearance Clear (Clear) Urine pH 6.0 (4.5-7.5) Ur Specific [place] 1.006 (1.000-1.030) Urine Protein Negative (Negative) Urine Glucose (UA) Negative (Negative) Urine Ketones Negative (Negative) Urine Blood Negative (Negative) Urine Nitrite Negative (Negative) Urine Bilirubin Negative (Negative) Urine Urobilinogen Negative (Negative) Ur Leukocyte Esterase Negative (Negative) Administered Medications Discontinued Medications Sodium Chloride (Nss) 500 mls @ 999 mls/hr IV .Q31M ONE Stop: 12/14/23 11:30 Last Infusion: 12/14/23 12:00 Dose: Infused Documented By: Admin: 12/14/23 11:11 Dose: 999 mls/hr Documented By: ALEK Ioversol (Optiray 320 125ml) 120 ml IV ONCE ONE Stop: 12/14/23 12:51 Last Admin: 12/14/23 12:50 Dose: 120 ml Documented By: ERNESTINA Imaging Data Radiologist's Impression: Head CT 12/14/23 11:00 CT OF THE HEAD WITHOUT CONTRAST CLINICAL HISTORY: neuro deficit, acute stroke suspected COMPARISON STUDY: Head CT November 19, 2005. MRA of the head November 20, 2005. TECHNIQUE: Helical axial images of the head were obtained without IV contrast. Automated exposure control was utilized for the study. A dose lowering technique was utilized adhering to the principles of ALARA. FINDINGS: No acute intracranial hemorrhage, midline shift or mass effect is present. The ventricular system is unremarkable. White matter hypodensity suggests small vessel disease. A small linear lucency within the left external capsule favors an old infarct. A 1.9 cm focus of encephalomalacia within the left parietal lobe favors an old infarct. There 1.2 cm hypodense focus within the right occipital lobe on image 16 of 32. IMPRESSION: 1. No acute intracranial hemorrhage or mass effect. 2. 1.2 cm hypodense focus within the right occipital lobe. This may reflect a subacute infarct. 3. 1.9 cm focus of encephalomalacia within the left parietal lobe suggestive of an old infarct. ACT 112: Negative or not required by law. Electronically signed by: Alden Isidro M.D. 12/14/2023 2:11 PM Head CTA 12/14/23 11:00 HEAD CTA HISTORY: neuro deficit, acute stroke suspected TECHNIQUE: Multiaxial CT images of the head were performed both before and after the intravenous administration of contrast to evaluate the major cerebral vessels. 3D/MIP images were also obtained. Sagittal and coronal reformats were reviewed. A dose lowering technique was utilized adhering to the principles of ALARA. COMPARISON: Brain MRA 11/20/2005. FINDINGS: Scattered areas of calcified plaque within the bile carotid siphons resulting in mild multifocal narrowing. Scattered calcified plaque within the dominant distal left vertebral artery and hypoplastic right vertebral artery. This results in severe focal stenosis within the distal intracranial right vertebral artery on image 38. No evidence for occlusion. The major dural venous sinuses are patent. The basilar artery is widely patent. There is no significant stenosis, occlusion, or aneurysm seen within the bilateral ACAs, MCAs, or babbitt spinner. IMPRESSION: 1. There is no significant stenosis, occlusion, or aneurysm seen within the bilateral ACAs, MCAs, or babbitt spinner. 2. Focal area of severe stenosis within the distal right vertebral artery without evidence for occlusion. ACT 112: Negative or not required by law. Electronically signed by: Keyur Neumann M.D. 12/14/2023 2:39 PM Neck CTA 12/14/23 11:00 CT ANGIOGRAM OF THE NECK CLINICAL HISTORY: Neurological deficit. Strokelike symptoms. COMPARISON STUDY: Chest CT dated 07/12/2023. TECHNIQUE: Following the IV administration of 120 of Optiray 320, CT angiogram of the neck was performed from the aortic arch to the skull base. Images are reviewed in the axial, sagittal, and coronal planes. 3-D MIPS images are created and assessed. IV contrast was administered without complication. All measurements were calculated based on NASCET criteria. A dose lowering technique was utilized adhering to the principles of ALARA. CT DOSE: 1164.82 mGy.cm FINDINGS: Thoracic aorta: There is atherosclerotic calcification of the thoracic aorta. Visualized portions of the thoracic aorta are normal in caliber. The aortic arch demonstrates standard 3-vessel anatomy. Right carotid arterial system: The right common carotid artery is widely patent. There is advanced atherosclerotic plaque in the carotid bulb. This causes less than 50% stenosis at the origin of the right internal carotid artery. The remainder of the right internal carotid artery is widely patent, as is the right external carotid artery. Left carotid arterial system: The left common carotid artery is widely patent, as are the left internal and external carotid arteries. Advanced atherosclerotic plaque is seen in the carotid bulb. Vertebral arteries: The vertebral arteries are patent bilaterally noting mild left-sided dominance. Subclavian arteries: Widely patent bilaterally. Jugular veins: Widely patent bilaterally. Brain parenchyma: The visualized brain parenchyma the skull base is within normal limits. Lung apices: Emphysematous change is noted. A calcified granuloma is seen in the right upper lobe. Apical scarring is observed. A 6 mm nodular opacity left apex is again seen on image #58. Soft tissues: The visualized pharyngeal soft tissues are normal in appearance noting angiographic phase technique. The oropharyngeal airway appears widely patent. The salivary and thyroid glands are normal in appearance. No cervical lymphadenopathy is seen. Skeletal structures: The skeletal structures are osteopenic. The visualized calvarium at the skull base appears intact. The imaged cervical spine is maintained noting multilevel spondylosis. Sinuses and mastoids: The visualized paranasal sinuses are clear. The mastoid air cells are well pneumatized. IMPRESSION: 1. Advanced atherosclerotic plaque is seen in the carotid bulbs. This causes less than 50% stenosis at the origin of the right internal carotid artery. 2. There is no evidence of hemodynamically significant carotid stenosis in the neck. 3. The vertebral arteries are patent bilaterally. 4. Emphysema. 5. A 6 mm indeterminate nodular opacity in the left upper lobe is unchanged from the 07/12/[address] but new from 2017. This is pathologically indeterminate and may represent scarring, and a 6-month follow-up chest CT is recommended for reassessment. ACT 112: Negative or not required by law. Electronically signed by: Sacha Wood M.D. 12/14/2023 1:26 PM Discharge Plan Visit Data Chief Complaint: Weakness Stated Complaint: DIFF. AMBULATING, WEAKNESS ED Provider: Nuno Jacobo Discharge Problem: CVA (cerebrovascular accident), AMS (altered mental status), Anemia Forms Stand Alone Forms: [facility] [place] [employer] Prescriptions Prescriptions: No Action multivitamin Tablet 1 tab PO QAM furosemide [Lasix] 40 mg Tablet 40 mg PO QAM atorvastatin 80 mg Tablet 80 mg PO HS albuterol sulfate 2.5 mg /3 mL (0.083 %) Solution For Nebulization 2.5 mg INHALATION DIRECTED PRN (Reason: Shortness Of Breath Or Wheezing) clonazepam 0.5 mg Tablet 0.5 mg PO HS cyanocobalamin (vitamin B-12) [Vitamin B-12] 1,000 mcg Tablet 1,000 mcg PO QAM isosorbide mononitrate 60 mg Tablet Extended Release 24 Hr 60 mg PO QAM buspirone 10 mg tablet 10 - 20 mg PO BID PRN (Reason: Anxiety) gabapentin 300 mg Capsule 300 mg PO HS omeprazole 20 mg Capsule,Delayed Release(Dr/Ec) 20 mg PO QAM mirtazapine 15 mg Tablet 7.5 mg PO HS metoprolol succinate 25 mg Tablet Extended Release 24 Hr 25 mg PO QAM albuterol sulfate [Ventolin HFA] 90 mcg/actuation Hfa Aerosol Inhaler 2 puff INHALATION QID PRN (Reason: Shortness Of Breath Or Wheezing) colchicine 0.6 mg Tablet 0.6 mg PO DIRECTED PRN (Reason: GOUT FLARE UP) Rx Instructions: TAKE 2 TABLET, 1 HR LATER, TAKE 1 TABLET, THEN 1 TAB DAILY AFTER UNTIL SYMPTOMS RESOLVE. fluoxetine 20 mg Capsule 60 mg PO QAM fluticasone propionate 50 mcg/actuation [place],Suspension 2 spray INTRANASAL QAM risperidone 0.5 mg Tablet 0.5 mg PO HS roflumilast 500 mcg Tablet 500 mcg PO QAM Eliquis 5 mg tablet 5 mg PO BID Vitron-C 65 mg iron- 125 mg Tablet,Delayed Release (Dr/Ec) 1 tab PO QAM clopidogrel 75 mg tablet 75 mg PO QAM budesonide 0.25 mg/2 mL suspension for nebulization 0.25 mg inhalation BID metformin 500 mg tablet extended release 24 hr 500 mg PO BID Referrals Referrals: Johnnie Newby MD [Primary Care Provider] - Discharge Problem: CVA (cerebrovascular accident) Qualifiers: CVA mechanism: unspecified Qualified Code(s): I63.9 - Cerebral infarction, unspecified AMS (altered mental status) Qualifiers: Altered mental status type: unspecified Qualified Code(s): R41.82 - Altered mental status, unspecified Anemia Qualifiers: Anemia type: unspecified type Qualified Code(s): D64.9 - Anemia, unspecified
[2023-12-14] MEDS: SODIUM CHLORIDE 0.9% 500 ML IV ONE (11:11)
[2023-12-14 11:35] LABS: Basophils # (auto) 0.04 K/uL (0.00-0.20); Basophils % (auto) 0.8 %; Eosinophils # (auto) 0.04 K/uL (0.00-0.50); Eosinophils % (auto) 0.8 %; Hematocrit (blood only) 37.5 % (42.0-52.0); Hemoglobin 11.6 g/dl (14.0-18.0); Immature Granulocytes # (auto) 0.01 K/uL (0.01-0.20); Immature Granulocytes % (auto) 0.2 %; Lymphocytes # (auto) 1.35 K/uL (1.20-3.40); Lymphocytes % (auto) 26.7 %; Mean Corpuscular Hemoglobin 28.5 pg (25.0-34.0); Mean Corpuscular Hgb Conc 30.9 g/dL (32.0-36.0); Mean Corpuscular Volume 92.1 fL (80.0-100.0); Mean Platelet Volume 9.5 fL (9.4-12.4); Monocytes # (auto) 0.47 K/uL (0.11-0.59); Monocytes % (auto) 9.3 %; Neutrophils # (auto) 3.14 K/uL (1.40-6.50); Neutrophils % (auto) 62.2 %; Platelet Count 172 K/uL (130-400); RDW Coefficient of Variation 16.5 % (11.5-14.5); RDW Standard Deviation 56.5 fL (36.4-46.3); Red Blood Count 4.07 M/uL (4.70-6.10); White Blood Count 5.05 K/ul (4.8-10.8)
[2023-12-14 11:38] LABS: Partial Thromboplastin Ratio 0.9; Partial Thromboplastin Time 25 Seconds (21-31); Prothrombin Time 10.9 Seconds (9.0-12.0)
[2023-12-14 11:45] LABS: Albumin Globulin Ratio 1.4 (0.9-2); Albumin Level 3.7 gm/dl (3.4-5.0); Bilirubin,Total 0.4 mg/dl (0.2-1.0); Calcium 9.1 mg/dl (8.6-10.3); Creatinine Clr Calc Pharmacy 54.2 ml/min; Est GFR (African American) 61.4 ml/min; Globulin 2.6 gm/dl (2.5-4.0); Magnesium 1.9 mg/dl (1.7-2.4); Potassium 4.2 mmol/L (3.5-5.1); Total Protein 6.3 gm/dl (6.0-8.3)
[2023-12-14 11:52] LABS: Troponin I High Sensitivity 18.4 pg/ml (0-20)
[2023-12-14 12:27] LABS: Appearance Urine Clear (Clear); Bilirubin Urine Negative (Negative); Blood Urine Negative (Negative); Color Urine Yellow; Glucose Urine UA Negative (Negative); Ketones Urine Negative (Negative); Leukocyte Esterase Urine Negative (Negative); Nitrite Urine Negative (Negative); Protein Urine Negative (Negative); Specific Gravity Urine 1.006 (1.000-1.030); Urobilinogen Urine Negative (Negative)
[2023-12-14] MEDS: OPTIRAY 320 125ml IV ONE (12:50)
--- NOTE | 2023-12-14 13:28 | CT Scan Report ---
CT ANGIOGRAM OF THE NECK CLINICAL HISTORY: Neurological deficit. Strokelike symptoms. COMPARISON STUDY: Chest CT dated 07/12/2023. TECHNIQUE: Following the IV administration of 120 of Optiray 320, CT angiogram of the neck was perfor med from the aortic arch to the skull base. Images are reviewed in the axial, sagittal, and coronal p lanes. 3-D MIPS images are created and assessed. IV contrast was administered without complication. A ll measurements were calculated based on NASCET criteria. A dose lowering technique was utilized adh ering to the principles of ALARA. CT DOSE: 1164.82 mGy.cm FINDINGS: Thoracic aorta: There is atherosclerotic calcification of the thoracic aorta. Visualized portions of the thoracic aorta are normal in caliber. The aortic arch demonstrates standard 3-vessel anatomy. Right carotid arterial system: The right common carotid artery is widely patent. There is advanced at herosclerotic plaque in the carotid bulb. This causes less than 50% stenosis at the origin of the rig ht internal carotid artery. The remainder of the right internal carotid artery is widely patent, as i s the right external carotid artery. Left carotid arterial system: The left common carotid artery is widely patent, as are the left internet marketing assistant al and external carotid arteries. Advanced atherosclerotic plaque is seen in the carotid bulb. Vertebral arteries: The vertebral arteries are patent bilaterally noting mild left-sided dominance. Subclavian arteries: Widely patent bilaterally. Jugular veins: Widely patent bilaterally. Brain parenchyma: The visualized brain parenchyma the skull base is within normal limits. Lung apices: Emphysematous change is noted. A calcified granuloma is seen in the right upper lobe. Ap ical scarring is observed. A 6 mm nodular opacity left apex is again seen on image #58. Soft tissues: The visualized pharyngeal soft tissues are normal in appearance noting angiographic pha se technique. The oropharyngeal airway appears widely patent. The salivary and thyroid glands are nor mal in appearance. No cervical lymphadenopathy is seen. Skeletal structures: The skeletal structures are osteopenic. The visualized calvarium at the skull ba se appears intact. The imaged cervical spine is maintained noting multilevel spondylosis. Sinuses and mastoids: The visualized paranasal sinuses are clear. The mastoid air cells are well pneu matized. IMPRESSION: 1. Advanced atherosclerotic plaque is seen in the carotid bulbs. This causes less than 50% stenosis a t the origin of the right internal carotid artery. 2. There is no evidence of hemodynamically significant carotid stenosis in the neck. 3. The vertebral arteries are patent bilaterally. 4. Emphysema. 5. A 6 mm indeterminate nodular opacity in the left upper lobe is unchanged from the 07/12/[address] but new from 2017. This is pathologically indeterminate and may represent scarring, and a 6-month follow-up chest CT is recommended for reassessment. ACT 112: Negative or not required by law. Electronically signed by: Sacha Wood M.D. 12/14/2023 1:26 PM
--- NOTE | 2023-12-14 14:12 | CT Scan Report ---
CT OF THE HEAD WITHOUT CONTRAST CLINICAL HISTORY: neuro deficit, acute stroke suspected COMPARISON STUDY: Head CT November 19, 2005. MRA of the head November 20, 2005. TECHNIQUE: Helical axial images of the head were obtained without IV contrast. Automated exposure con trol was utilized for the study. A dose lowering technique was utilized adhering to the principles o f ALARA. FINDINGS: No acute intracranial hemorrhage, midline shift or mass effect is present. The ventricular system is unremarkable. White matter hypodensity suggests small vessel disease. A small linear lucenc y within the left external capsule favors an old infarct. A 1.9 cm focus of encephalomalacia within t he left parietal lobe favors an old infarct. There 1.2 cm hypodense focus within the right occipital lobe on image 16 of 32. IMPRESSION: 1. No acute intracranial hemorrhage or mass effect. 2. 1.2 cm hypodense focus within the right occipital lobe. This may reflect a subacute infarct. 3. 1.9 cm focus of encephalomalacia within the left parietal lobe suggestive of an old infarct. ACT 112: Negative or not required by law. Electronically signed by: Alden Isidro M.D. 12/14/2023 2:11 PM
--- NOTE | 2023-12-14 14:40 | CT Scan Report ---
HEAD CTA HISTORY: neuro deficit, acute stroke suspected TECHNIQUE: Multiaxial CT images of the head were performed both before and after the intravenous admi nistration of contrast to evaluate the major cerebral vessels. 3D/MIP images were also obtained. Sag ittal and coronal reformats were reviewed. A dose lowering technique was utilized adhering to the kelsey Lee. COMPARISON: Brain MRA 11/20/2005. FINDINGS: Scattered areas of calcified plaque within the bile carotid siphons resulting in mild multi focal narrowing. Scattered calcified plaque within the dominant distal left vertebral artery and hypo plastic right vertebral artery. This results in severe focal stenosis within the distal intracranial right vertebral artery on image 38. No evidence for occlusion. The major dural venous sinuses are pat ent. The basilar artery is widely patent. There is no significant stenosis, occlusion, or aneurysm s een within the bilateral ACAs, MCAs, or casing crew. IMPRESSION: 1. There is no significant stenosis, occlusion, or aneurysm seen within the bilateral ACAs, MCAs, or casing crew. 2. Focal area of severe stenosis within the distal right vertebral artery without evidence for occlus ion. ACT 112: Negative or not required by law. Electronically signed by: Keyur Neumann M.D. 12/14/2023 2:39 PM
--- NOTE | 2023-12-14 15:03 | History & Physical Report ---
Date of Service December 14, 2023 Assessment & Plan (1) Occipital infarction: Plan Walter Don is an 78y/o M with PMHx of DM type II, diabetic peripheral neuropathy, dyslipidemia, COPD, YISSEL on BiPAP, history of NSVT, AAA, HTN, CAD, PAD with claudication, carotid artery stenosis, aortic valve stenosis, CKD stage III, diverticulosis, GERD, gouty arthropathy, anemia of chronic disease [baseline Hgb ~10-12], tobacco use disorder, PTSD, depression with anxiety, history of CVA [on Eliquis], history of NSTEMI [2022], adenocarcinoma of right lung s/p radiation therapy and other problems listed below who presented to the ED via EMS for evaluation of progressive weakness and was found to have a R occipital lobe subacute infarct. R Occipital Lobe Subacute Infarct Lab work rather unremarkable. UA negative. Head CT with the following findings: 1.2 cm hypodense focus within the R occipital lobe (may reflect a subacute infarct) & 1.9 cm focus of encephalomalacia within the L parietal lobe suggestive of an old infarct. Head CTA showing a focal area of severe stenosis within the distal R vertebral artery without evidence for occlusion. Neck CTA with the following significant findings: advanced atherosclerotic plaque within the carotid bulbs, emphysema & 6 mm indeterminate nodular opacity in the L upper lobe is unchanged from the 07/12/[address] but new from 2017. Pathologically indeterminate and may represent scarring, and a 6-month follow-up chest CT recommended. Brain MRI pending. Neurology consult pending. Lipid panel & Hgb A1c in AM. Echo w/ bubble study pending. PT/OT evals. Speech therapy eval pending. NPO for now pending speech eval. Continue IVF w/ 1L NSS 60cc/hr x 1 bag. HTN: Hold home BP meds for now, including Lasix. History of CVA CAD & Dyslipidemia: Continue Eliquis, Plavix & atorvastatin. COPD: Chronic, stable. Continue home meds. DM Type II: Hold home agents, SSI regimen while inpatient. BSG checks ACHS. Glycemic pharmacy consult pending. CKD Stage III: Cr 1.27, baseline Cr ~1.3-1.7 per chart review. Monitor renal function, avoid nephrotoxic meds when able. YISSEL: Continue BiPAP HS. Anemia of Chronic Disease: Hgb 11.6, baseline Hgb ~10-12 per chart review. Continue Vitron-C supplementation, monitor Hgb. Other Chronic Medical Conditions: Diabetic peripheral neuropathy, PTSD/anxiety/depression, GERD --> Continue home meds for these specific conditions. 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 Code Status: FULL CODE PCP: Johnnie Newby MD Disposition: Admit to PCU/Telemetry - Of note, patient was on hospice care prior to arrival. mentions he was using [facility]. Patient seen in collaboration with Dr. Mckeon. Please see addendum. I spent a total of 60 minutes coordinating, documenting, and providing care for this patient excluding time spent in the performance of separately billed services. This included personally reviewing all current laboratories and imaging studies, medical reconciliation, outpatient chart review and discussion with specialists. This chart was completed in part utilizing Speech Voice Recognition Software. Grammatical errors, random word insertions, pronoun errors, and incomplete sentences are an occasional consequence of this system due to software limitations, ambient noise, and hardware issues. Any formal questions or concerns about the content, text, or information contained within the body of this dictation should be directly addressed to the provider for clarification. History of Present Illness Chief Complaint: Weakness Primary Care Provider: Johnnie Newby MD Walter Don is an 78y/o M with PMHx of DM type II, diabetic peripheral neuropathy, dyslipidemia, COPD, YISSEL on BiPAP, history of NSVT, AAA, HTN, CAD, PAD with claudication, carotid artery stenosis, aortic valve stenosis, CKD stage III, diverticulosis, GERD, gouty arthropathy, anemia of chronic disease [baseline Hgb ~10-12], tobacco use disorder, PTSD, depression with anxiety, history of CVA [on Eliquis], history of NSTEMI [2022], adenocarcinoma of right lung s/p radiation therapy and other problems listed below who presented to the ED via EMS for evaluation of progressive weakness. History obtained from patient, at bedside and associated chart review. notes that the patient has become progressively weaker since Wednesday. She has also noticed that he has been slurring his speech intermittently along with episodes of drooling from his mouth. He has been very unsteady on his feet at home. Uses a walker at baseline, however mentions that he now has significant difficulty even standing up to use his walker - which started mostly on Wednesday. Patient reports that he feels confused and has been experiencing on/off headaches since Wednesday. Of note, patient was on hospice care prior to arrival. mentions he was using [facility]. Patient smokes 2ppd - has been smoking since age 7. No alcohol or recreational drug use. Allergies Allergy/AdvReac Type Severity Reaction Status Date / Time acetaminophen AdvReac Severe SEVERE Verified 07/12/23 14:33 HEADACHE-PER PT "BRAIN SWELLS". Home Medications Medication Instructions Recorded Confirmed Type albuterol sulfate 2.5 mg/3 mL 2.5 mg inhalation DIRECTED PRN 04/14/23 12/14/23 History (0.083 %) solution for nebulization Shortness Of Breath Or Wheezing albuterol sulfate 90 mcg/actuation 2 puff inhalation QID PRN 04/14/23 12/14/23 History aerosol inhaler (Ventolin HFA) Shortness Of Breath Or Wheezing apixaban 5 mg tablet (Eliquis) 5 mg PO BID 04/14/23 12/14/23 History atorvastatin 80 mg tablet 80 mg PO HS 04/14/23 12/14/23 History buspirone 10 mg tablet 10 - 20 mg PO BID PRN Anxiety 04/14/23 12/14/23 History clonazepam 0.5 mg tablet 0.5 mg PO HS 04/14/23 12/14/23 History colchicine 0.6 mg tablet 0.6 mg PO DIRECTED PRN GOUT 04/14/23 12/14/23 History FLARE UP cyanocobalamin (vitamin B-12) 1,000 mcg PO QAM 04/14/23 12/14/23 History 1,000 mcg tablet (Vitamin B-12) fluoxetine 20 mg capsule 60 mg PO QAM 04/14/23 12/14/23 History fluticasone propionate 50 2 spray intranasal QAM 04/14/23 12/14/23 History mcg/actuation nasal spray,suspension furosemide 40 mg tablet (Lasix) 40 mg PO QAM 04/14/23 12/14/23 History gabapentin 300 mg capsule 300 mg PO HS 04/14/23 12/14/23 History iron,carbonyl 65 mg-vitamin C 125 1 tab PO QAM 04/14/23 12/14/23 History mg tablet,delayed release (Vitron-C) isosorbide mononitrate 60 mg 60 mg PO QAM 04/14/23 12/14/23 History tablet,extended release 24 hr metoprolol succinate 25 mg 25 mg PO QAM 04/14/23 12/14/23 History tablet,extended release 24 hr mirtazapine 15 mg tablet 7.5 mg PO HS 04/14/23 12/14/23 History multivitamin 1 tab PO QAM 04/14/23 12/14/23 History omeprazole 20 mg capsule,delayed 20 mg PO QAM 04/14/23 12/14/23 History release risperidone 0.5 mg tablet 0.5 mg PO HS 04/14/23 12/14/23 History roflumilast 500 mcg tablet 500 mcg PO QAM 04/14/23 12/14/23 History budesonide 0.25 mg/2 mL suspension 0.25 mg inhalation BID 07/12/23 12/14/23 History for nebulization clopidogrel 75 mg tablet 75 mg PO QAM 07/12/23 12/14/23 History metformin 500 mg tablet,extended 500 mg PO BID 07/12/23 12/14/23 History release 24 hr Past Med/Surg History Problem List Occipital infarction CVA (cerebral vascular accident) Palliative care by specialist Advanced care planning/counseling discussion COPD, severe Severe muscle deconditioning Weakness generalized Dyspnea and respiratory abnormalities Chest pain (Acute) YISSEL (obstructive sleep apnea) Adenocarcinoma of lower lobe of right lung Pneumonia (Acute) Chronic anticoagulation History of CVA (cerebrovascular accident) HLD (hyperlipidemia) Tobacco use COPD (chronic obstructive pulmonary disease) Anemia of chronic disease Adenocarcinoma of left lung Peripheral arterial disease Multi-vessel coronary artery stenosis NSTEMI (non-ST elevated myocardial infarction) Unstable angina Anemia (Acute) Acute non-ST elevation myocardial infarction (NSTEMI) (Acute) PTSD (post-traumatic stress disorder) (Chronic) Left against medical advice (Acute) Chest pain (Acute) Depression (Chronic) Chest pain (Acute) Left against medical advice (Acute) Social History Smoking Status: Current every day smoker Tobacco Type: Cigarettes Cigarettes Per Day: 1.5 ppd; Do You Dip or Chew Tobacco: No; Hx Alcohol Use: No Hx Substance Use: No Preferred Language: [place] Communication Ability: Effective Gis Geographer Required: No Beliefs That Will Affect Care: None Current Living Situation: Spouse Feels Safe at Home: Yes Assistive Devices: CPAP and Walker Review of Systems Review of Systems: At least ten systems reviewed and negative, except as noted in the HPI. Physical Exam Physical Exam: Please refer to Dr. Mckeon's addendum for physical examination findings. Results & Data Results & Data Vital Signs (Past 12 Hours) Vital Signs Temp Pulse Resp BP Pulse Ox O2 Del Method 12/14/23 12:38 57 L 12/14/23 11:17 36.8 C 60 18 99/57 L 95 Room Air Laboratory Results Short CBC 12/14/23 Range/Units 11:12 WBC 5.05 (4.8-10.8) K/ul Hgb 11.6 L (14.0-18.0) g/dl Hct 37.5 L (42.0-52.0) % Plt Count 172 (130-400) K/uL BMP 12/14/23 11:12 Sodium 138 Potassium 4.2 Chloride 105 Carbon Dioxide 28 BUN 14 Creatinine 1.27 Glucose 101 H Calcium 9.1 Liver Function 12/14/23 Range/Units 11:12 Total Bilirubin 0.4 (0.2-1.0) mg/dl AST 13 (13-39) U/L ALT 9 (7-52) U/L Alkaline Phosphatase 83 (34-104) U/L Albumin 3.7 (3.4-5.0) gm/dl Urine 12/14/23 Range/Units Unknown Urine Color Yellow Urine Appearance Clear (Clear) Urine pH 6.0 (4.5-7.5) Ur Specific Ida 1.006 (1.000-1.030) Urine Protein Negative (Negative) Urine Glucose (UA) Negative (Negative) Diagnostic Findings Head CT 12/14/23 11:00 CT OF THE HEAD WITHOUT CONTRAST CLINICAL HISTORY: neuro deficit, acute stroke suspected COMPARISON STUDY: Head CT November 19, 2005. MRA of the head November 20, 2005. TECHNIQUE: Helical axial images of the head were obtained without IV contrast. Automated exposure control was utilized for the study. A dose lowering technique was utilized adhering to the principles of ALARA. FINDINGS: No acute intracranial hemorrhage, midline shift or mass effect is present. The ventricular system is unremarkable. White matter hypodensity suggests small vessel disease. A small linear lucency within the left external capsule favors an old infarct. A 1.9 cm focus of encephalomalacia within the left parietal lobe favors an old infarct. There 1.2 cm hypodense focus within the right occipital lobe on image 16 of 32. IMPRESSION: 1. No acute intracranial hemorrhage or mass effect. 2. 1.2 cm hypodense focus within the right occipital lobe. This may reflect a subacute infarct. 3. 1.9 cm focus of encephalomalacia within the left parietal lobe suggestive of an old infarct. ACT 112: Negative or not required by law. Electronically signed by: Alden Isidro M.D. 12/14/2023 2:11 PM Head CTA 12/14/23 11:00 HEAD CTA HISTORY: neuro deficit, acute stroke suspected TECHNIQUE: Multiaxial CT images of the head were performed both before and after the intravenous administration of contrast to evaluate the major cerebral vessels. 3D/MIP images were also obtained. Sagittal and coronal reformats were reviewed. A dose lowering technique was utilized adhering to the principles of ALARA. COMPARISON: Brain MRA 11/20/2005. FINDINGS: Scattered areas of calcified plaque within the bile carotid siphons resulting in mild multifocal narrowing. Scattered calcified plaque within the dominant distal left vertebral artery and hypoplastic right vertebral artery. This results in severe focal stenosis within the distal intracranial right vertebral artery on image 38. No evidence for occlusion. The major dural venous sinuses are patent. The basilar artery is widely patent. There is no significant stenosis, occlusion, or aneurysm seen within the bilateral ACAs, MCAs, or mixer driver. IMPRESSION: 1. There is no significant stenosis, occlusion, or aneurysm seen within the bilateral ACAs, MCAs, or mixer driver. 2. Focal area of severe stenosis within the distal right vertebral artery without evidence for occlusion. ACT 112: Negative or not required by law. Electronically signed by: Keyur Neumann M.D. 12/14/2023 2:39 PM Neck CTA 12/14/23 11:00 CT ANGIOGRAM OF THE NECK CLINICAL HISTORY: Neurological deficit. Strokelike symptoms. COMPARISON STUDY: Chest CT dated 07/12/2023. TECHNIQUE: Following the IV administration of 120 of Optiray 320, CT angiogram of the neck was performed from the aortic arch to the skull base. Images are reviewed in the axial, sagittal, and coronal planes. 3-D MIPS images are created and assessed. IV contrast was administered without complication. All measurements were calculated based on NASCET criteria. A dose lowering technique was utilized adhering to the principles of ALARA. CT DOSE: 1164.82 mGy.cm FINDINGS: Thoracic aorta: There is atherosclerotic calcification of the thoracic aorta. Visualized portions of the thoracic aorta are normal in caliber. The aortic arch demonstrates standard 3-vessel anatomy. Right carotid arterial system: The right common carotid artery is widely patent. There is advanced atherosclerotic plaque in the carotid bulb. This causes less than 50% stenosis at the origin of the right internal carotid artery. The remainder of the right internal carotid artery is widely patent, as is the right external carotid artery. Left carotid arterial system: The left common carotid artery is widely patent, as are the left internal and external carotid arteries. Advanced atherosclerotic plaque is seen in the carotid bulb. Vertebral arteries: The vertebral arteries are patent bilaterally noting mild left-sided dominance. Subclavian arteries: Widely patent bilaterally. Jugular veins: Widely patent bilaterally. Brain parenchyma: The visualized brain parenchyma the skull base is within normal limits. Lung apices: Emphysematous change is noted. A calcified granuloma is seen in the right upper lobe. Apical scarring is observed. A 6 mm nodular opacity left apex is again seen on image #58. Soft tissues: The visualized pharyngeal soft tissues are normal in appearance noting angiographic phase technique. The oropharyngeal airway appears widely patent. The salivary and thyroid glands are normal in appearance. No cervical lymphadenopathy is seen. Skeletal structures: The skeletal structures are osteopenic. The visualized calvarium at the skull base appears intact. The imaged cervical spine is maintained noting multilevel spondylosis. Sinuses and mastoids: The visualized paranasal sinuses are clear. The mastoid air cells are well pneumatized. IMPRESSION: 1. Advanced atherosclerotic plaque is seen in the carotid bulbs. This causes less than 50% stenosis at the origin of the right internal carotid artery. 2. There is no evidence of hemodynamically significant carotid stenosis in the neck. 3. The vertebral arteries are patent bilaterally. 4. Emphysema. 5. A 6 mm indeterminate nodular opacity in the left upper lobe is unchanged from the 07/12/[address] but new from 2017. This is pathologically indeterminate and may represent scarring, and a 6-month follow-up chest CT is recommended for reassessment. ACT 112: Negative or not required by law. Electronically signed by: Sacha Wood M.D. 12/14/2023 1:26 PM Medications Administered Discontinued Medications Sodium Chloride (Nss) 500 mls @ 999 mls/hr IV .Q31M ONE Stop: 12/14/23 11:30 Last Infusion: 12/14/23 12:00 Dose: Infused Documented By: Admin: 12/14/23 11:11 Dose: 999 mls/hr Documented By: CC Ioversol (Optiray 320 125ml) 120 ml IV ONCE ONE Stop: 12/14/23 12:51 Last Admin: 12/14/23 12:50 Dose: 120 ml Documented By: ERNESTINA Code Status & VTE Plan Code Status FULL CODE Supervising Physician Co-Signing Physician Notes 78 y/o M with PMHx of DM type II, diabetic peripheral neuropathy, dyslipidemia, COPD, YISSEL on BiPAP, history of NSVT, AAA, HTN, CAD, PAD with claudication, carotid artery stenosis, aortic valve stenosis, CKD stage III, diverticulosis, GERD, gouty arthropathy, anemia of chronic disease [baseline Hgb ~10-12], tobacco use disorder [uses 1.5 - 2 PPD since age 7, current user], PTSD, depression with anxiety, history of CVA [on Eliquis], history of NSTEMI [2022], adenocarcinoma of right lung s/p radiation therapy who presented to the ED via EMS for evaluation of weakness since 4 days ago 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 History obtained from patient, pt's and associated chart review. Of note, pt was on Hospice care before coming to the ED. Patient does follow palliative as an outpatient. 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 But they have noted slurred speech, no facial deviation noted. At baseline, patient uses walker and is very shaky during ambulation. Patient denies fever/sore throat/chest pain/palpitation/acute changes in bowel or bladd er habits/abdominal pain. Patient does report decreased appetite. Patient reports smoking 1.5 to 2 packs a day since age 7, denies alcohol and recreational drug. Pt's states his slurred speech has improved. Full code but if he is intubated/ventilated more than 2 to 3 days, he would prefer that he be let go. Pt's was at bedside during code status discussion w/ the patient. Medications reviewed, patient reports compliance with Plavix and Eliquis. Last dose today morning. Labs fairly WNL at his baseline. No signs of infection. Head imaging reviewed. Subacute infarct: 1.2 cm right occipital lobe subacute infarct noted. Will get MRI brain with and without contrast. Neurology consult. Lipid profile and A1c in AM. PT/OT/speech. N.p.o. until speech eval. Hold BP meds. Utilize NSS at 60 mL an hour for 1 bag. Echo. Chronic problem: h/o lung cancer - f/u w/ pulm and oncology as OP. On exam: GENERAL: Alert and oriented x3. NAD, on RA. HEENT: No pallor, no icterus. Pupils equal, round and reactive to light. Oral mucosa moist. NECK: No JVD, no neck masses. HEART: S1 and S2 heard. Regular rate and rhythm. No murmur, no gallop. RESPIRATORY SYSTEM: Normal AP diameter. No accessory muscle use. No wheezing, no crackles. ABDOMEN: Soft, bowel sounds present, nontender, no distention. Umbilical hernia noted/nontender. CENTRAL NERVOUS SYSTEM: No facial droop. Speech is clear. Obeys simple commands. Moves extremities. Power b/l extremities equal and 5/5. EXTREMITIES: No edema, no erythema seen. ble chronic skin changes noted. I have seen and examined the patient and have discussed the case with the provider above. I agree with the assessment and plan as stated.
[2023-12-14] MEDS ORDERED: DEXTROSE 50% 50 ML SYRINGE IV PRN (18:26)
[2023-12-14] MEDS ORDERED: GLUCAGON FOR INJ 1 MG VIAL SQ PRN (18:26)
[2023-12-14] MEDS ORDERED: CARBOHYDRATES FOR HYPOGLYCEMIA PO PRN (18:26)
[2023-12-14] MEDS ORDERED: GLUCOSE 10 TAB/TUBE PO PRN (18:26)
[2023-12-14] MEDS ORDERED: busPIRone 5 MG TAB PO PRN (18:26)
[2023-12-14] MEDS ORDERED: PHARMACY GLYCEMIC MGMT CONSULT PRN (18:26)
[2023-12-14] MEDS ORDERED: ONDANSETRON INJ 2 MG/ML 2 ML VIAL IV PRN (18:26)
[2023-12-14] MEDS ORDERED: POLYETHYLENE (MIRALAX) 17 GM PACK PO PRN (18:26)
[2023-12-14] MEDS ORDERED: GLUCOSE 40% GEL 15 GM TUBE PO PRN (18:26)
--- NOTE | 2023-12-14 18:56 | Magnetic Resonance Report ---
MRI OF THE BRAIN WITHOUT IV CONTRAST CLINICAL HISTORY: Possible subacute infarct seen by CT. Neurological deficit. COMPARISON STUDY: CT of the brain dated 12/14/2023. TECHNIQUE: MRI of the brain was performed utilizing various T1 and T2-weighted sequences in the axial , sagittal, and coronal planes. IV contrast was not administered for this examination. The examinatio n is degraded by motion artifact. FINDINGS: Brain parenchyma: There is age-related involutional change noting mild to moderate subcortical and pe riventricular microangiopathic disease. A focus of left parietal encephalomalacia is consistent with a remote infarct. There is an additional small chronic right occipital lobe infarct. A chronic lacuna r infarct is noted in the left basal ganglia. There is no hemorrhage or mass effect. There is no rest ricted diffusion to suggest acute ischemia. Steele-white matter differentiation is preserved. No extra- axial fluid collection is seen. The cerebellar tonsils are normal in configuration. Ventricles, sulci, and cisterns: Prominent secondary to involutional change. Pituitary and sella: Partially empty sella is incidentally noted. Intracranial vasculature: Normal flow voids are maintained at the skull base. Orbits: The bony orbits are grossly intact. Orbital contents are normal in appearance noting bilatera l ocular lens implants. Sinuses and mastoids: Clear. Calvarium: Unremarkable. Cervical cord: Partially visualized cervical spinal cord is normal in morphology and signal intensity . IMPRESSION: 1. No acute intracranial abnormality is identified. 2. Chronic infarcts as above. ACT 112: Negative or not required by law. Electronically signed by: Sacha Wood M.D. 12/14/2023 6:54 PM
[2023-12-14] MEDS: INSULIN ASPART PER UNIT CHARGE SC SCH (19:03)
[2023-12-14] MEDS: SODIUM CHLORIDE 0.9% 1,000 ML IV SCH (19:03)
[2023-12-14] MEDS: ATORVASTATIN 40 MG TAB PO SCH (20:05)
[2023-12-14] MEDS: APIXABAN 5 MG TABLET PO SCH (20:05)
[2023-12-14] MEDS: GABAPENTIN 300 MG CAP PO SCH (20:06)
[2023-12-14] MEDS: MIRTAZAPINE TAB 15 MG TAB PO SCH (20:07)
[2023-12-14] MEDS: risperiDONE 0.5 MG TABLET PO SCH (20:08)
--- OUTSIDE RECORDS SUMMARY | 2023-12-14 20:09 | External Medical Summary ---
Author Name Unknown Address Unknown Organization [id number]:[facility] – [place] - [address] [place] [id number] Laboratory Report Ordering Provider Test Date Status SHA,DURA 12/02/2023 14:45:52 Final Observation Date Value Abnormality Reference (Units ) Status Uric Acid 12/02/2023 14:45:52 9.1 Above high normal 3. 4-7.0 (mg/dL) Final Performing Location [facility] - [address] [place] [address]
--- OUTSIDE RECORDS SUMMARY | 2023-12-14 20:09 | External Medical Summary | Summary of Care ---
Author Name Unknown Organization [facility] Address [address] [place] [address] Phone [phone] Care Team Providers Care Fish And Wildlife Biologist Name Role Phone Johnnie Newby MD Primary Care Provider [phone] Reason for Visit * Reason Comments Outpatient Testing Encounter Details Date Type Department Care Team (Late st Contact Info) Description 12/02/2023 3:00 PM EDT Laboratory [facility], [facility] [address] [facility] [phone] [facility] [address] [place] [address] Gouty arthropathy; Type 2 diabetes mellitus with hemoglobin A1c goal of less than 8.0% ([facility]) Allergies Active Allergy Reactions Criticality Noted Date Comments Acetaminophen 05/06/2005 headaches documented as of this encounter (statuses as of 12/02/2023) Medications Medication Sig Dispensed Refills Start Date End Date Status DAILY MULTIVITAMIN PO TABS Take 1 Tablet by mouth daily. Active BUSPAR 15 MG PO TABS Take 1 Tablet by mouth daily as needed. Active clonazePAM (KLONOPIN) 0.5 MG Tablet Take 1 Tablet by mouth daily as needed. 0 06/17/2016 Active ONETOUCH ULTRA BLUE STRPIndications:Type 2 diabetes mellitus with hemoglobin A1c goal of less than 7.0% (HCC) TEST ONCE DAILY 100 Strip 5 03/02/2018 Active BiPAP every night at bedtime. Active Vitamin B-12 1000 MCG Oral Tablet (Cyanocobalamin) Take 1 Tablet by mouth in the morning. Active Metoprolol Succinate ER 25 MG Oral Tablet Extended Release 24 Hour (toPROL XL)Indications:SVT (supraventricular tachycardia) ([facility]),NSVT (nonsustained ventricular tachycardia) ([facility]) TAKE ONE TABLET BY MOUTH EVERY DAY 90 Tablet 3 12/09/2022 Active Vitron-C 65-125 MG Oral Tablet (Iron-Vitamin C 65-125 mg per tab) Take 1 Tablet by mouth in the morning. Active busPIRone HCl 10 MG Oral Tablet (Buspar) take 1-2 tabs (10-20mg) by mouth twice daily as needed for anxiety 180 Tablet 02/09/2023 Active Additional Information Patient not taking.Reported on 09/16/2023 Nitroglycerin 0.4 MG Sublingual Tablet Sublingual (Nitrostat) Place 1 Tablet under the tongue every 5 minutes as needed for Pain, Chest. up to 3 doses in 15 minutes 75 Tablet 3 04/18/2023 Active FLUoxetine HCl 20 MG Oral Capsule (PROzac) Take 3 Capsules by mouth in the morning. 270 Capsule 3 04/23/2023 Active risperiDONE 0.5 MG Oral Tablet (RisperDAL) Take one tablet by mouth every night at bedtime 90 Tablet 05/06/2023 Active Gabapentin 300 MG Oral Capsule (Neurontin) Take 1 Capsule by mouth at bedtime. 90 Capsule 3 05/12/2023 Active Full Kit Nebulizer Set Use with Nebulizer Medication EVERY FOUR HOURS as directed. Dx Code: J44.9 1 Each 3 05/28/2023 Active Clopidogrel Bisulfate 75 MG Oral Tablet (pLAVix) Take 1 Tablet by mouth in the morning. 90 Tablet 2 06/23/2023 Active metFORMIN HCl ER 500 MG Oral Tablet Extended Release 24 Hour (Glucophage XR) Take 2 Tablets by mouth in the morning. 180 Tablet 3 07/19/2023 Active HYDROcodone-Acetamin ophen 5-325 MG Oral TabletIndications:Sy mptomatic care patient Take 1 Tablet by mouth every 8 hours as needed for Pain, Severe. 90 Tablet 07/19/2023 Active Atorvastatin Calcium 80 MG Oral Tablet (Lipitor) TAKE ONE TABLET BY MOUTH AT BEDTIME 90 Tablet 1 08/05/2023 5 Active Tiotropium [place] Monohydrate 18 MCG Inhalation Capsule (Spiriva HandiHaler) Inhale 1 Capsule by mouth in the morning. 30 Capsule 2 08/16/2023 Active Additional Information Patient not taking.Reported on 11/09/2023 Albuterol Sulfate HFA 108 (90 Base) MCG/ACT Inhalation Aerosol SolutionIndications: COPD, group D, by GOLD 2017 classification ([facility]) Inhale 2 Puffs by mouth every 6 hours as needed for Dyspnea or Wheezing. 18 g 5 08/17/2023 Active busPIRone HCl 15 MG Oral Tablet (Buspar) take 1 tablet by mouth four times daily as needed for anxiety 360 Tablet 08/24/2023 Active Additional Information Patient not taking.Reported on 09/16/2023 Mirtazapine 15 MG Oral Tablet (Remeron) take 1 tablet by mouth every night 90 Tablet 08/24/2023 Active LORazepam 2 MG Oral Tablet (Ativan) Take 1 Tablet by mouth every 6 hours as needed. Active Isosorbide Mononitrate ER 60 MG Oral Tablet Extended Release 24 Hour (Imdur)Indications:C oronary artery disease involving rosebud coronary artery without angina pectoris TAKE ONE TABLET BY MOUTH EVERY MORNING 100 Tablet 3 08/30/2023 5 Active Budesonide 0.25 MG/2ML Inhalation Suspension (Pulmicort) Inhale 0.25 mg via nebulizer 2 times a day as needed for Dyspnea or Wheezing. 160 mL 3 08/31/2023 4 Active Roflumilast 500 MCG Oral Tablet (Daliresp)Indication s:COPD, group D, by GOLD 2017 classification ([facility]) take one tablet by mouth in the morning 30 Tablet 2 09/15/2023 4 Active Cephalexin 500 MG Oral CapsuleIndications:C ellulitis of finger of right hand Take 1 Capsule by mouth in the morning and 1 Capsule before bedtime. 14 Capsule 09/16/2023 Active Additional Information Patient not taking.Reported on 11/09/2023 Triamcinolone Acetonide 0.1 % External Cream (Aristocort)Indicati ons:Cellulitis of finger of right hand Apply topically to affected area 2 times a day. Apply to right hand 15 g 1 09/16/2023 Active Omeprazole 20 MG Oral Capsule Delayed Release (PriLOSEC)Indication s:Gastroesophageal reflux disease without esophagitis TAKE ONE CAPSULE BY MOUTH EVERY MORNING *NEED UPDATED LABS* 90 Capsule 2 09/17/2023 5 Active Furosemide 40 MG Oral Tablet (Lasix)Indications:H TN, goal below 140/90 Take 1 Tablet by mouth in the morning. 100 Tablet 1 09/20/2023 Active Fluticasone Propionate 50 MCG/ACT Nasal Suspension (Flonase) USE TWO SPRAYS IN EACH NOSTRIL IN THE MORNING 48 g 1 09/27/2023 Active Apixaban 5 MG Oral Tablet (Eliquis) Take 1 Tablet by mouth in the morning and 1 Tablet before bedtime. 180 Tablet 3 10/13/2023 Active Ipratropium-Albutero l 0.5-2.5 (3) MG/3ML Inhalation Solution (Duoneb) Inhale 3 mL by mouth every 6 hours as needed. Active Fluticasone-Salmeter ol 250-50 MCG/ACT Inhalation Aerosol Powder Breath Activated (Advair Diskus) Inhale 1 Puff by mouth in the morning and 1 Puff before bedtime. 60 Each 2 11/16/2023 4 Active risperiDONE 0.5 MG Oral Tablet (RisperDAL) take 1 tablet by mouth twice daily 180 Tablet 11/16/2023 Active FLUoxetine HCl 20 MG Oral Capsule (PROzac) take 3 capsules by mouth every morning 270 Capsule 11/24/2023 Active Mirtazapine 15 MG Oral Tablet (Remeron) 1 tablet by mouth every night 90 Tablet 11/24/2023 Active Mirtazapine 15 MG Oral Tablet (Remeron) take 1 tablet by mouth every night 90 Tablet 11/24/2023 Active Colchicine 0.6 MG Oral Tablet Take 2 tablets by mouth then One hour later, take 1 tablet. then Take 1 tablet once daily thereafter until symptoms resolve. 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 documented as of this encounter (statuses as of 12/02/2023) Resolved Problems Problem Noted Date Diagnosed Date [...] as of this encounter (statuses as of 12/02/2023) Immunizations Name Administration Dates Next Due COVID-19 mRNA, LNP-s, No Pre serve, 2-Dose Series (Localytics) 02/25/2023,02/10/2022,07/13/2020,06/17 Pneumococcal Conjugate Vacc, 13 Valent (Prevnar) [...] 1.5 67 Smokeless Tobacco: Never Comments:started age 7. 1 1/ 2- 2 ppd. 11/09/23 Alcohol Use Standard Drinks/Week Comments No 0 (1 standard drink = 0.6 oz pur e alcohol) PHQ-2 Answer Date Recorded PHQ Adult Total Score 0 04/22/2023 Hunger Vital Sign Answer Date Recorded Within the past 12 months, y ou worried that your food would run out before you got the money to buy more. Never true 08/10/19 Within the past 12 months, t he food you bought just didn't last and you didn't have money to get more. Never true 2023 Sex and Gender Information Value Date Recorded [...] Care Team (Late st Contact Info) Description 01/19/2024 11:40 AM EDT Office Visit Family Practice [facility] [address] [facility] [place] [address] Johnnie Newby MD [address] [place] [address] 01/26/2024 10:00 AM EDT Imaging Radiology [facility] [address]st [facility], [place] [address] [facility] [place] [address] 01/31/2024 10:00 AM EDT Office Visit Orthopaedics [facility] [address] [facility] [place] [address] Zander Wilkins, [address] [facility] [place] [address] 02/01/2024 11:30 AM EDT Office Visit Radiation Oncology, [address] [place] [address] Shawna Johnson MD [address] [place] [address] [place] [address] 02/07/2024 9:30 AM EDT Imaging Vascular Lab, [facility] 2nd Floor, [place] [address] [facility] [place] [address] 02/16/2024 10:30 AM EDT Office Visit Vascular Surgery, [facility] [address] [facility] [place] [address] Cyril Thompson MD [address] [facility] [place] [address] 03/03/2024 9:40 AM EST Office Visit Podiatry [facility] [address] [facility] [place] [address] Bettye Herrmann, DPLiat [address] [facility] [place] [address] 03/28/2024 9:30 AM EST Office Visit Cardiology, [facility] [address] [facility] [place] [address] Deisy Aguirre CRNP [address] [place] [address] 11/08/2024 10:30 AM EDT Office Visit Sleep Disorders Ctr [facility] [address] [facility] [place] [phone] Hui Bishop CRNP [address] [facility] [place] [address] Pending Results Name Type Priority Associated Diagnoses Date /Time URIC ACID Lab Routine Gouty arthropathy 12/02/2023 2:45 PM EDT HEMOGLOBIN A1C Lab Routine Type 2 diabetes mellitus with hemoglobin A1c goal of less than 8.0% ([facility]) 12/02/2023 2:45 PM EDT Scheduled Procedures Name Priority Associated Diagnoses Date/Ti me COLONOSCOPY FLEXIBLE PROXIMA L DIAGNOSTIC Recall History of colonic polyps Health Maintenance Due Date Last Done Comments Adult Wellness Visit 08/09/2009 DISCUSS TOBACCO CESSATION (REFER TO SMARTSET #3291) 05/01/2023 05/01/2022, 02/13/2022 COVID-19 Vaccine ( season) 2023 03/03/2023, 02/25/2023, 02/10/2022, Additional history exists Diabetic Eye Exam 07/09/2023 07/08/2022, , 06/10/2021, Additional history exists Diabetic Foot Exam 09/10/2023 09/09/2022, 1 , 11/12/2017, Additional history exists HbA1c 10/16/2023 04/16/2023, 12/19, 06/05/2022, Additional history exists Influenza Vaccine (FLU shot) (#1) 2023 12/31/2022, 02/10/2022, 03/05/2021, Additional history exists DTaP,Tdap,and Td Vaccines (2 - Td or Tdap) 01/06/2024 01/05/2014 O2 ASSESSMENT COMPLETED IN PAST YEAR FOR COPD 01/15/2024 01/14/2023 Albumin/Creatinine Ratio 02/05/2024 023, 01/15/2023, 06/04/2021, Additional history exists GFR 03/04/2024 09/02/2023, 03/21, 04/17/2023, Additional history exists CKD PHOS USE SMARTSET 50789 04/15/202403/20, 06/05/2022, 06/03/2021, Additional history exists Depression Monitoring 04/22/2024 04/22/2023 CKD HGB USE SMARTSET 89305 09/01/202409/01, 09/02/2023, 06/03/2023, Additional history exists Colonoscopy 01/14/2025 01/14/2023, 12/19, 03/05/2022, Additional history exists Pneumococcal Vaccine: 65+ Years Completed 11/07/2015, 04/06/2014 Alpha-1 Antitrypsin Completed 05/22/2019 Zoster Vaccines Completed 02/27/2020, 11/17, 11/30/2019, Additional history exists RETIRED - COLONOSCOPY-ANNUAL AGES 18-100 Discontinued 01/14/2023, 01/14/2023, 03/05/2022, Additional history exists RETIRED - COLONOSCOPY-EVERY 2 YRS AGES 18-100 Discontinued 01/14/2023, 01/14/2023, 03/05/2022, Additional history exists HPV (Gardasil) Vaccine Aged Out No lo nger eligible based on patient's age to complete this topic Hepatitis B Vaccine Aged Out No longe r eligible based on patient's age to complete this topic MENINGOCOCCAL (MENACTRA/MENVEO) Aged Out No longer eligible based on patient's age to complete this topic documented as of this encounter Medical Devices Implanted Type Area Trail Maintenance Worker Device Identifier Shelf Expiration Date Model / Serial / Lot Lens Intraoc 24.0 - [id number] - [id number] Implanted:Qty: 1 on 06/01/2017 by Nikhil Bolton MD at OR [facility] Left: Eye [employer] 07/17/2021 [id number] / [id number] / [id number] Lens Intraoc 24.0 - [id number] - [id number] Implanted:Qty: 1 on 06/08/2017 by Nikhil Bolton MD at OR [facility] Right: Eye [employer] 07/17/2021 [id number] / [id number] / [id number] documented as of this encounter Visit Diagnoses Diagnosis Gouty arthropathy Gouty arthropathy, unspecified Type 2 diabetes mellitus with hemoglobin A1c goal of less than 8.0% ([facility]) documented in this encounter Advance Directives Documents on File Type Date Recorded Patient Clinical Audiologist Expl anation Advance Directives and Yu fine Will 11/20/2005 ADVANCE DIRECTIVE * Full Code (Latest Code Status on File) Date Activated Date Inactivated Comments 04/15/2023 9:22 PM 04/18/2023 7:12 PM This order reflects the patients wishes and were consensually agreed upon. Question Answer Comments Discussion of Advance Directives occurred with: Patient * Full Code Date Activated Date Inactivated Comments 06/08/2017 6:21 AM 06/08/2017 1:09 PM This order r eflects the patients wishes and were consensually agreed upon. * Full Code Date Activated Date Inactivated Comments 06/01/2017 7:04 AM 06/01/2017 1:27 PM This order r eflects the patients wishes and were consensually agreed upon. Care Teams Fish And Wildlife Biologist Relationship Specialty Start Date End Date Johnnie Newby MD [address] [facility] [place] [address] PCP - General Family Medicine 09/13/20 documented as of this encounter
--- OUTSIDE RECORDS SUMMARY | 2023-12-14 20:09 | External Medical Summary | Summary of Care ---
Author Name Unknown Organization [facility] Address [address] [place] [address] Phone [phone] Care Team Providers Care Wood Finisher Name Role Phone Johnnie Newby MD Primary Care Provider [phone] Reason for Visit * Reason Comments Medication Refill Encounter Details Date Type Department Care Team (Late st Contact Info) Description 11/14/2023 Refill Pulmonary Medicine, [facility] [address] [place] [address] Hi Dave MD [address] [place] [address] COPD, group D, by GOLD 2017 classification ([facility]) Allergies Active Allergy Reactions Criticality Noted Date [...] Tablet by mouth daily as needed. 0 7 Active ONETOUCH ULTRA BLUE STRPIndications:Ty pe 2 diabetes mellitus with hemoglobin A1c goal of less than 7.0% (HCC) TEST ONCE DAILY 100 Strip 5 8 Active BiPAP every night at bedtime. Active Vitamin B-12 1000 MCG Oral Tablet (Cyanocobalamin) Take 1 Tablet by mouth in the morning. Active Metoprolol Succinate ER 25 MG Oral Tablet Extended Release 24 Hour (toPROL XL)Indications:SVT (supraventricular tachycardia) ([facility]),NSVT (nonsustained ventricular tachycardia) ([facility]) TAKE ONE TABLET BY MOUTH EVERY DAY 90 Tablet 3 3 024 Active Vitron-C 65-125 MG Oral Tablet (Iron-Vitamin C 65-125 mg per tab) Take 1 Tablet by mouth in the morning. Active busPIRone HCl 10 MG Oral Tablet (Buspar) take 1-2 tabs (10-20mg) by mouth twice daily as needed for anxiety 180 Tablet 3 Active Additional Information Patient not taking.Reported on 09/16/2023 Nitroglycerin 0.4 MG Sublingual Tablet Sublingual (Nitrostat) Place 1 Tablet under the tongue every 5 minutes as needed for Pain, Chest. up to 3 doses in 15 minutes 75 Tablet 3 3 Active FLUoxetine HCl 20 MG Oral Capsule (PROzac) Take 3 Capsules by mouth in the morning. 270 Capsule 3 4 Active risperiDONE 0.5 MG Oral Tablet (RisperDAL) Take one tablet by mouth every night at bedtime 90 Tablet 4 Active Gabapentin 300 MG Oral Capsule (Neurontin) Take 1 Capsule by mouth at bedtime. 90 Capsule 3 4 Active Full Kit Nebulizer Set Use with Nebulizer Medication EVERY FOUR HOURS as directed. Dx Code: J44.9 1 Each 3 4 Active Clopidogrel Bisulfate 75 MG Oral Tablet (pLAVix) Take 1 Tablet by mouth in the morning. 90 Tablet 2 4 Active metFORMIN HCl ER 500 MG Oral Tablet Extended Release 24 Hour (Glucophage XR) Take 2 Tablets by mouth in the morning. 180 Tablet 3 4 Active HYDROcodone-Acetam inophen 5-325 MG Oral TabletIndications: Symptomatic care patient Take 1 Tablet by mouth every 8 hours as needed for Pain, Severe. 90 Tablet 4 Active Atorvastatin Calcium 80 MG Oral Tablet (Lipitor) TAKE ONE TABLET BY MOUTH AT BEDTIME 90 Tablet 1 4 025 Active Tiotropium [place] Monohydrate 18 MCG Inhalation Capsule (Spiriva HandiHaler) Inhale 1 Capsule by mouth in the morning. 30 Capsule 2 4 Active Additional Information Patient not taking.Reported on 11/09/2023 Albuterol Sulfate HFA 108 (90 Base) MCG/ACT Inhalation Aerosol SolutionIndication s:COPD, group D, by GOLD 2017 classification ([facility]) Inhale 2 Puffs by mouth every 6 hours as needed for Dyspnea or Wheezing. 18 g 5 4 Active busPIRone HCl 15 MG Oral Tablet (Buspar) take 1 tablet by mouth four times daily as needed for anxiety 360 Tablet 4 Active Additional Information Patient not taking.Reported on 09/16/2023 Mirtazapine 15 MG Oral Tablet (Remeron) take 1 tablet by mouth every night 90 Tablet 4 Active LORazepam 2 MG Oral Tablet (Ativan) Take 1 Tablet by mouth every 6 hours as needed. Active Isosorbide Mononitrate ER 60 MG Oral Tablet Extended Release 24 Hour (Imdur)Indications :Coronary artery disease involving [place] coronary artery without angina pectoris TAKE ONE TABLET BY MOUTH EVERY MORNING 100 Tablet 3 4 025 Active Budesonide 0.25 MG/2ML Inhalation Suspension (Pulmicort) Inhale 0.25 mg via nebulizer 2 times a day as needed for Dyspnea or Wheezing. 160 mL 3 4 024 Active Roflumilast 500 MCG Oral Tablet (Daliresp)Indicati ons:COPD, group D, by GOLD 2017 classification ([facility]) take one tablet by mouth in the morning 30 Tablet 2 4 024 Active Cephalexin 500 MG Oral CapsuleIndications :Cellulitis of finger of right hand Take 1 Capsule by mouth in the morning and 1 Capsule before bedtime. 14 Capsule 4 Active Additional Information Patient not taking.Reported on 11/09/2023 Triamcinolone Acetonide 0.1 % External Cream (Aristocort)Indica tions:Cellulitis of finger of right hand Apply topically to affected area 2 times a day. Apply to right hand 15 g 1 4 Active Omeprazole 20 MG Oral Capsule Delayed Release (PriLOSEC)Indicati ons:Gastroesophage al reflux disease without esophagitis TAKE ONE CAPSULE BY MOUTH EVERY MORNING *NEED UPDATED LABS* 90 Capsule 2 4 025 Active Furosemide 40 MG Oral Tablet (Lasix)Indications :HTN, goal below 140/90 Take 1 Tablet by mouth in the morning. 100 Tablet 1 4 Active Fluticasone Propionate 50 MCG/ACT Nasal Suspension (Flonase) USE TWO SPRAYS IN EACH NOSTRIL IN THE MORNING 48 g 1 4 Active Apixaban 5 MG Oral Tablet (Eliquis) Take 1 Tablet by mouth in the morning and 1 Tablet before bedtime. 180 Tablet 3 4 Active Ipratropium-Albute rol 0.5-2.5 (3) MG/3ML Inhalation Solution (Duoneb) Inhale 3 mL by mouth every 6 hours as needed. Active Fluticasone-Salmet gume 250-50 MCG/ACT Inhalation Aerosol Powder Breath Activated (Advair Diskus) Inhale 1 Puff by mouth in the morning and 1 Puff before bedtime. 60 Each 2 4 024 Active Colchicine 0.6 MG Oral Tablet Take 2 tablets by mouth. One hour later, take 1 tablet by mouth. Take 1 tablet by mouth once daily after until symptoms resolve. 90 Tablet 4 024 Discontinued(Re fill) Fluticasone-Salmet gume 250-50 MCG/ACT Inhalation Aerosol Powder Breath Activated (Advair Diskus) Inhale 1 Puff by mouth in the morning and 1 Puff before bedtime. 60 Each 2 4 024 Discontinued(Re fill) risperiDONE 0.5 MG Oral Tablet (RisperDAL) take 1 tablet by mouth twice daily 180 Tablet 4 Discontinued Hospital, Clinic, or Other Facility Administered [...] tis 01/05/2014 Coronary artery disease invo lving torres [...] mRNA, LNP-s, No Pre serve, 2-Dose Series ([employer]) 02/25/2023,02/10/2022,07/13/2020,06/17 Pneumococcal Conjugate Vacc, 13 Valent (Prevnar) [...] money to buy more. Never true 08/10/19 24 Within the past 12 months, t [...] encounter Miscellaneous Notes * Addendum Note - Janel Gan LPN - 12/02/2023 11:15 AM EDTAddended by: JANEL GAN on: 12/02/2023 11:15 AM Modules accepted: Orders * Telephone Encounter - Janel Gan LPN - 12/02/2023 11:14 AM EDT Error, no additional rx needed. * Telephone Encounter - Hi Dave MD - 11/16/2023 8:29 AM EDT Signed Prescriptions: Disp Refills Fluticasone-Salmeterol 250-50 MCG/ACT Inha*60 Each2 Sig: Inhale 1 Puff by mouth in the morning and 1 Puff before bedtime. Authorizing Provider: HI DAVE * Telephone Encounter - Ethel Ventura LPN - 11/15/2023 9:35 AM EDTPending Prescriptions: Disp Refills Fluticasone-Salmeterol 250-50 MCG/ACT Inha*60 Each2 Sig: Inhale1 Puff by mouth in the morning and 1 Puff before bedtime. documented in this encounter Plan of Treatment Upcoming Encounters Date Type Department Care Team (Late st Contact Info) Description 12/02/2023 3:00 PM EDT Laboratory Laboratory, [facility] [address] [place] [phone] [facility] [address] [place] [address] 01/19/2024 11:40 AM EDT Office Visit Family Practice [facility] [address] [place] [address] Johnnie Newby MD [address] [place] [address] 01/26/2024 10:00 AM EDT Imaging Radiology [facility] [place] [facility] [place] [address] 01/31/2024 10:00 AM EDT Office Visit Orthopaedics [facility] [address] [facility] [place] [address] Zander Wilkins, [address] [place] [address] 02/01/2024 11:30 AM EDT Office Visit Radiation Oncology, [address] [place] [address] Shawna Johnson MD [address] [place] [address] [place] [address] 02/07/2024 9:30 AM EDT Imaging Vascular Lab, [facility] [place] [address] [facility] [place] [address] 02/16/2024 10:30 AM EDT Office Visit Vascular Surgery, [facility] [address] [place] [address] Cyril Thompson MD [address] [facility] [place] [id number] 03/03/2024 9:40 AM EST Office Visit Podiatry [facility] 132 [facility] [place] [address] Bettye Herrmann, DPM [address] [facility] [place] [address] 03/28/2024 9:30 AM EST Office Visit Cardiology, [facility] [address] [facility] [place] [address] Deisy Aguirre CRNP 132 [facility] [place] [address] 11/08/2024 10:30 AM EDT Office Visit Sleep Disorders Ctr [facility] 132 [facility] [place] [phone] Hui Bishop CRNP 132 [facility] [place] [address] Scheduled Procedures Name Priority Associated Diagnoses Date/Ti [...] 11/12/2017, Additional history exists HbA1c 10/16/2023 04/16/2023, 0912/2022, 06/05/2022, Additional history exists Influenza Vaccine (FLU shot) (#1) 2023 12/31/2022, 02/10/2022, 03/05/2021, Additional history exists DTaP,Tdap,and Td Vaccines (2 - Td or Tdap) 01/06/2024 01/05/2014 O2 ASSESSMENT COMPLETED IN PAST YEAR FOR COPD 01/15/2024 01/14/2023 Albumin/Creatinine Ratio 02/05/2024 023, 01/15/2023, 06/04/2021, Additional history exists GFR 03/04/2024 09/02/2023, 03/21, 04/17/2023, Additional history exists CKD PHOS USE SMARTSET 59896 04/15/202403/20, 06/05/2022, 06/03/2021, Additional history exists Depression Monitoring 04/22/2024 04/22/2023 CKD HGB USE SMARTSET 32102 09/01/202409/01, 09/02/2023, 06/03/2023, Additional history exists Colonoscopy [...] this encounter Medical Devices Implanted Type Area Lease Attendant Device Identifier Shelf Expiration Date Model / Serial / Lot Lens Intraoc 24.0 - [id number] - [id number] Implanted:Qty: 1 on 06/01/2017 by Nikhil Bolton MD at OR [facility] Left: Eye [employer] 07/17/2021 [id number] / [id number] / [id number] Lens Intraoc 24.0 - [id number] - [id number] Implanted:Qty: 1 on 06/08/2017 by Nikhil Bolton MD at OR [facility] Right: Eye [employer]OM[employer] 07/17/2021 [id number] / [id number] / [id number] documented as of this encounter Visit Diagnoses Diagnosis COPD, group D, by GOLD 2017 classification (HCC) documented in this encounter Advance Directives Documents on File Type Date Recorded Patient Financial Rep Expl anation Advance Directives and Yu fine [...] and were consensually agreed upon. Care Teams Wood Finisher Relationship Specialty Start Date End Date Johnnie Newby MD [address] [place] [address] PCP - General Family Medicine 09/13/20 documented as of this encounter
--- OUTSIDE RECORDS SUMMARY | 2023-12-14 20:09 | External Medical Summary ---
Author Name Unknown Address Unknown Organization K01:[facility] [place] - [address] [facility] [address] Laboratory Report Ordering Provider Test Date Status SHA,DURA 12/02/2023 14:45:52 Final Observation Date Value Abnormality Reference (Units ) Status HbA1C 12/02/2023 14:45:52 6.1 Above high normal 4. 0-5.6 (%) Final The use of HbA1c to monitor glycemic status is based on normal hemoglobin and HbA composition. This test should not be used in patients with abnormal hemoglobin that affects the half life of the red blood cell or the in vivo glycation rates. Glucose, estimated average 12/02/2023 14:45:52 128 Above high normal <126 (mg/dL) Michel palafox Performing Location [facility] [place] - [address] [facility] [address]
--- OUTSIDE RECORDS SUMMARY | 2023-12-14 20:09 | External Medical Summary | Summary of Care ---
Author Name Unknown Organization [facility] Address [address] [place] [address] Phone [phone] Care Team Providers Care Direct Response Consultant Name Role Phone John Newby MD Primary Care Provider [phone] Reason for Visit * Reason Comments Medication Refill Encounter Details Date Type Department Care Team (Late st Contact Info) Description 11/27/2023 Refill Family Practice [facility] [address] [facility] [place] [phone] John Newby MD [address] [facility] [place] [address] Type 2 diabetes mellitus with hemoglobin A1c goal of less than 8.0% ([facility])*; Gouty arthropathy Allergies Active Allergy Reactions Criticality Noted Date Comments Acetaminophen 05/06/2005 headaches documented as of this encounter (statuses as of 11/29/2023) Medications Medication Sig Dispensed Refills Start Date End Date Status DAILY MULTIVITAMIN PO TABS Take 1 Tablet by mouth daily. Active BUSPAR 15 MG PO TABS Take 1 Tablet by mouth daily as needed. Active clonazePAM (KLONOPIN) 0.5 MG Tablet Take 1 Tablet by mouth daily as needed. 0 06/17/2016 Active ONETOUCH ULTRA BLUE STRPIndications:Typ e 2 diabetes mellitus with hemoglobin A1c goal of less than 7.0% ([facility]) TEST ONCE DAILY 100 Strip 5 03/02/2018 Active BiPAP every night at bedtime. Active Vitamin B-12 1000 MCG Oral Tablet (Cyanocobalamin) Take 1 Tablet by mouth in the morning. Active Metoprolol Succinate ER 25 MG Oral Tablet Extended Release 24 Hour (toPROL XL)Indications:SVT (supraventricular tachycardia) ([facility]),NSVT (nonsustained ventricular tachycardia) ([facility]) TAKE ONE TABLET BY MOUTH EVERY DAY 90 Tablet 3 12/09/2022 02/02/20 Active Vitron-C 65-125 MG Oral Tablet (Iron-Vitamin [...] the morning. 180 Tablet 3 07/19/2023 Active HYDROcodone-Acetami nophen 5-325 MG Oral TabletIndications:S ymptomatic care patient Take 1 Tablet by mouth every 8 hours as needed for Pain, Severe. 90 Tablet 07/19/2023 Active Atorvastatin Calcium 80 MG Oral Tablet (Lipitor) TAKE ONE TABLET BY MOUTH AT BEDTIME 90 Tablet 1 08/05/2023 08/05/19 25 Active Tiotropium [place] Monohydrate 18 MCG Inhalation Capsule (Spiriva HandiHaler) Inhale 1 Capsule by mouth in the morning. 30 Capsule 2 08/16/2023 Active Additional Information Patient not taking.Reported on 11/09/2023 Albuterol Sulfate HFA 108 (90 Base) MCG/ACT Inhalation Aerosol SolutionIndications :COPD, group D, by GOLD 2017 classification ([facility]) Inhale 2 Puffs by mouth [...] (Imdur)Indications: Coronary artery disease involving [place] coronary artery without angina pectoris TAKE ONE TABLET BY MOUTH EVERY MORNING 100 Tablet 3 08/30/2023 08/30/19 25 Active Budesonide 0.25 MG/2ML Inhalation Suspension (Pulmicort) Inhale 0.25 mg via nebulizer 2 times a day as needed for Dyspnea or Wheezing. 160 mL 3 08/31/2023 02/07/20 24 Active Roflumilast 500 MCG Oral Tablet (Daliresp)Indicatio ns:COPD, group D, by GOLD 2017 classification ([facility]) Take 1 Tablet by mouth in the morning. 30 Tablet 2 09/15/2023 12/14/19 24 Active Cephalexin 500 MG Oral CapsuleIndications: Cellulitis of finger of right hand Take 1 Capsule by mouth in the morning and 1 Capsule before bedtime. 14 Capsule 09/16/2023 Active Additional Information Patient not taking.Reported on 11/09/2023 Triamcinolone Acetonide 0.1 % External Cream (Aristocort)Indicat ions:Cellulitis of finger of right hand Apply topically to affected area 2 times a day. Apply to right hand 15 g 1 09/16/2023 Active Omeprazole 20 MG Oral Capsule Delayed Release (PriLOSEC)Indicatio ns:Gastroesophageal reflux disease without esophagitis TAKE ONE CAPSULE BY MOUTH EVERY MORNING *NEED UPDATED LABS* 90 Capsule 2 09/17/2023 09/17/19 25 Active Furosemide 40 MG Oral Tablet (Lasix)Indications: [...] before bedtime. 180 Tablet 3 10/13/2023 Active Ipratropium-Albuter ol 0.5-2.5 (3) MG/3ML Inhalation Solution (Duoneb) Inhale 3 mL by mouth every 6 hours as needed. Active Fluticasone-Salmete rol 250-50 MCG/ACT Inhalation Aerosol Powder Breath Activated (Advair Diskus) Inhale 1 Puff by mouth in the morning and 1 Puff before bedtime. 60 Each 2 11/16/2023 02/14/20 24 Active risperiDONE 0.5 MG Oral Tablet (RisperDAL) [...] daily after until symptoms resolve. 90 Tablet 11/29/2023 Active Colchicine 0.6 MG Oral Tablet Take 2 tablets by mouth. One hour later, take 1 tablet by mouth. Take 1 tablet by mouth once daily after until symptoms resolve. 90 Tablet 07/21/2023 11/27/19 24 Discontinu ed(Refill) Hospital, Clinic, or Other Facility Administered Medication Ordered Dose Route Frequency Start Date End Date Status albuterol sulfate (PROVENTIL) (2.5 MG/3ML) 0.083% inhalation solution 2.5 mgIndications:COPD, severe (HCC) 2.5 mg NEBULIZER Q4H PRN 07/08/2018 Active documented as of this encounter (statuses as of 11/29/2023) Active Problems Problem Noted Date Diagnosed Date [...] Coronary artery disease invo lving [place] coronary artery of [place] heart without angina pectoris 11/27/2013 Tobacco abuse 11/27/2013 HTN, goal below 130/80 03/06/2009 Overview: Modified per HTN protocol #16. documented as of this encounter (statuses as of 11/29/2023) Resolved Problems Problem Noted Date Diagnosed Date [...] as of this encounter (statuses as of 11/29/2023) Immunizations Name Administration Dates Next Due COVID-19 mRNA, LNP-s, No Pre serve, 2-Dose Series ([employer]) 02/25/2023,02/10/2022,07/13/2020,06/17 Pneumococcal Conjugate Vacc, 13 Valent (Prevnar) [...] Smokeless Tobacco: Never Comments:started age 7. 1 1- 2 ppd. 11/09/23 Alcohol Use Standard Drinks/Week [...] shopping? (15 years old or older) No 12/28/20 23 Cognitive Status Response Date of Assessm ent Because of a physical, menta l, or emotional condition, do you have serious difficulty concentrating, remembering, or making decisions? (5 years old or older) No 04/15/2023 documented as of this encounter Miscellaneous Notes * Telephone Encounter - Sha Monson RPh - 11/29/2023 9:49 AM EDTSigned Prescriptions: Disp Refills Colchicine 0.6 MG Oral Tablet 90 Tab*0 Sig: Take 2 tablets by mouth. One hour later, take 1 tablet by mouth. Take 1 tablet by mouth once daily after until symptoms resolve.Authorizing Provider: JOHN NEWBY User: SHA MONSON documented in this encounter Plan of Treatment Upcoming Encounters Date Type Department Care Team (Late st Contact Info) Description 12/01/2023 11:40 AM EDT Office Visit Podiatry [facility] [address] [place] [address] Bettye Herrmann, DP [address] [facility] [place] [address] 01/19/2024 11:40 AM EDT Office Visit Family Practice [facility] [address] [place] [address] John Newby MD [address] [place] [address] 01/26/2024 10:00 AM EDT Imaging Radiology [address] [place] [address] 01/31/2024 10:00 AM EDT Office Visit [facility]opaedics [facility] [place] [address] Zander Wilkins, [address] [place] [address] 02/01/2024 11:30 AM EDT Office Visit Radiation Oncology, [address] [place] [address] Shawna Johnson MD [address] [place] [address] [place] [address] 02/07/2024 9:30 AM EDT [facility] [address] [facility] [place] [address] 02/16/2024 10:30 AM EDT Office Visit Vascular Surgery, [facility] [address] [facility] [place] [address] Cyril Thompson MD [address] [facility] [place] [address] 03/28/2024 9:30 AM EST Office Visit Cardiology, [facility] [address] [facility] [place] [address] Deisy Aguirre CRNP 132 [facility] [place] [address] 11/08/2024 10:30 AM EDT Office Visit [facility] 132 [facility] [place] [phone] Hui Bishop CRNP 132 [facility] [place] [address] Scheduled Orders Name Type Priority Associated Diagnoses Orde r Schedule URIC ACID Lab Routine Gouty arthropathy Expected: 12/06/2023 (Approximate), Expires: 11/28/2024 ALBUMIN / CREATININE RATIO, URINE Lab Routine Type 2 diabetes mellitus with hemoglobin A1c goal of less than 8.0% (HCC) Expected: 11/29/2023, Expires: 11/28/2024 HEMOGLOBIN A1C Lab Routine Type 2 diabetes mellitus with hemoglobin A1c goal of less than 8.0% (HCC) Expected: 12/06/2023 (Approximate), Expires: 11/28/2024 Scheduled Procedures Name Priority Associated Diagnoses Date/Ti [...] Additional history exists CKD PHOS USE SMARTSET 49218 04/15/202403/20, 06/05/2022, 06/03/2021, Additional history exists Depression Monitoring 04/22/2024 04/22/2023 CKD HGB USE SMARTSET 36441 09/01/202409/01, 09/02/2023, 06/03/2023, Additional history exists Colonoscopy [...] this encounter Medical Devices Implanted Type Area Assembler Body Device Identifier Shelf Expiration Date Model / Serial / Lot Lens Intraoc 24.0 - [id number] - [id number] Implanted:Qty: 1 on 06/01/2017 by Nikhil Bolton MD at OR [facility] Left: Eye [employer]OM[employer] 07/17/2021 [id number] / [id number] / [id number] Lens Intraoc 24.0 - [id number] - [id number] Implanted:Qty: 1 on 06/08/2017 by Nikhil Bolton MD at OR [facility] Right: Eye [employer]CH [employer] LOMB 07/17/2021 [id number] / [id number] / [id number] documented as of this encounter Visit Diagnoses Diagnosis Type 2 diabetes mellitus with hemoglobin A1c goal of less than 8.0% (HCC)- Primary Gouty arthropathy Gouty arthropathy, unspecified Type 2 diabetes mellitus with diabetic neuropathy, without long-term current use of insulin (HCC)- Primary Pain in both feet Pain in limb Pre-ulcerative calluses Corns and callosities Onychomycosis Dermatophytosis of nail documented in this encounter Advance Directives Documents on File Type Date Recorded 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 Care Teams Direct Response Consultant Relationship Specialty Start Date End Date John Newby MD [address] [facility] [place] [address] PCP - General Family Medicine 09/13/20 documented as of this encounter
--- OUTSIDE RECORDS SUMMARY | 2023-12-14 20:09 | External Medical Summary | Summary of Care ---
Author Name Unknown Organization [facility] Address [address] [place] [address] Phone [phone] Care Team Providers Care Horticultural Services Supervisor Name Role Phone Johnnie Newby MD Primary Care Provider [phone] Reason for Visit * Reason Comments Medication Refill Encounter Details Date Type Department Care Team (Late st Contact Info) Description 11/14/2023 Refill Pulmonary Medicine, [facility] [address] [place] [address] Hi Dave MD [address] [place] [address] COPD, group D, by GOLD 2017 classification ([facility]) Allergies Active Allergy Reactions Criticality [...] 90 Tablet 1 4 025 Active Tiotropium [place] Monohydrate 18 MCG Inhalation Capsule (Spiriva HandiHaler) Inhale 1 Capsule by mouth in the morning. 30 Capsule 2 4 Active Additional Information Patient not taking.Reported on 11/09/2023 Albuterol Sulfate HFA 108 (90 Base) MCG/ACT Inhalation Aerosol SolutionIndication s:COPD, group D, by GOLD 2017 classification ([facility]) Inhale 2 Puffs by mouth [...] 24 Hour (Imdur)Indications :Coronary artery disease involving [place] coronary artery without angina pectoris TAKE ONE TABLET BY MOUTH EVERY MORNING 100 Tablet 3 4 025 Active Budesonide 0.25 MG/2ML Inhalation Suspension (Pulmicort) Inhale 0.25 mg via nebulizer 2 times a day as needed for Dyspnea or Wheezing. 160 mL 3 4 024 Active Roflumilast 500 MCG Oral Tablet (Daliresp)Indicati ons:COPD, group D, by GOLD 2017 classification ([facility]) take one tablet by mouth [...] tis 01/05/2014 Coronary artery disease invo lving [place] coronary artery of [place] heart without angina pectoris 11/27/2013 Tobacco abuse [...] mRNA, LNP-s, No Pre serve, 2-Dose Series (Infopia) 02/25/2023,02/10/2022,07/13/2020,06/17 Pneumococcal Conjugate Vacc, 13 Valent (Prevnar) [...] Telephone Encounter - Hi Dave MD - 12/02/2023 4:57 PM EDT Signed Prescriptions: Disp Refills Fluticasone-Salmeterol 250-50 MCG/ACT Inha*60 Each2 Sig: Inhale 1 Puff by mouth in the morning and 1 Puff before bedtime.Authorizing Provider: HI DAVE H * Addendum Note - Janel Gan LPN [...] 11:40 AM EDT Office Visit Family Practice [facility] [address] [place] [address] Johnnie Newby MD [address] [place] [address] 01/26/2024 10:00 AM EDT Imaging Radiology [address] [place] [address] 01/31/2024 10:00 AM EDT Office Visit Orthopaedics [facility] [address] [place] [address] Zander Wilkins S, DO [address] [place] [address] 02/01/2024 11:30 AM EDT Office Visit Radiation Oncology, [address] [place] [address] Shawna Johnson MD [address] [place] [address] [place] [address] 02/07/2024 9:30 AM EDT Imaging Vascular Lab, [facility] 2nd Floor, [place] 132 [facility] [place] [address] 02/16/2024 10:30 AM EDT Office Visit Vascular Surgery, [facility] 132 [facility] [place] [address] Cyril Thompson MD [address] [place] [address] 03/03/2024 9:40 AM EST Office Visit Podiatry [facility] 132 [facility] [place] [address] Bettye Herrmann DPM [address] [place] [address] 03/28/2024 9:30 AM EST Office Visit Cardiology, [facility] 132 [facility] [place] [address] Deisy [facility]irre CRNP [facility] [address] 11/08/2024 10:30 AM EDT Office Visit Sleep Disorders Ctr [facility] 132 [facility] [place] [phone] Hui Bishop CRNP 132 [facility] [place] [address] Scheduled Procedures Name Priority Associated Diagnoses Date/Ti [...] Additional history exists CKD PHOS USE SMARTSET 56516 04/15/202403/20, 06/05/2022, 06/03/2021, Additional history exists Depression Monitoring 04/22/2024 04/22/2023 CKD HGB USE SMARTSET 21779 09/01/202409/01, 09/02/2023, 06/03/2023, Additional history exists Colonoscopy [...] this encounter Medical Devices Implanted Type Area Medicaid Business Analyst Device Identifier Shelf Expiration Date Model / Serial / Lot Lens Intraoc 24.0 - [id number] - [id number] Implanted:Qty: 1 on 06/01/2017 by Nikhil Bolton MD at OR [facility] Left: Eye BAUSCH [employer] LOMB 07/17/2021 [id number] / [id number] / [id number] Lens Intraoc 24.0 - [id number] - [id number] Implanted:Qty: 1 on 06/08/2017 by Nikhil Bolton MD at OR [facility] Right: Eye BAUSCH & LOMB 07/17/2021 [id number] / [id number] / [id number] documented as of this encounter Visit Diagnoses Diagnosis COPD, group D, by GOLD 2017 classification (HCC) documented in this encounter Advance Directives Documents on File Type Date Recorded 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 Care Teams Horticultural Services Supervisor Relationship Specialty Start Date End Date Johnnie Newby MD [address] [place] [address] PCP - General Family Medicine 09/13/20 documented as of this encounter
--- OUTSIDE RECORDS SUMMARY | 2023-12-14 20:09 | External Medical Summary | Summary of Care ---
Author Name Unknown Organization [facility] Address [address] [place] [address] Phone [phone] Care Team Providers Care Warehouse Man Name Role Phone Johnnie Newby MD Primary Care Provider [phone] Reason for Visit * Reason Comments Follow Up Routine nail trimmin g left toe pain Encounter Details Date Type Department Care Team (Late st Contact Info) Description 12/01/2023 11:40 AM EDT Office Visit Podiatry [facility] [address] [place] [address] Bettye Herrmann, DPM [address] [place] [address] Type 2 diabetes mellitus with diabetic neuropathy, without long-term current use of insulin ([facility])*; Pain in both feet; Pre-ulcerative calluses; Onychomycosis Allergies Active Allergy Reactions Criticality Noted Date Comments Acetaminophen 05/06/2005 headaches documented as of this encounter (statuses as of 12/01/2023) Medications Medication Sig Dispensed Refills Start Date [...] Release 24 Hour (toPROL XL)Indications:SVT (supraventricular tachycardia) ([facility]),NSVT (nonsustained ventricular tachycardia) ([facility] [...] 90 Tablet 1 08/05/2023 5 Active Tiotropium [place] Monohydrate 18 MCG Inhalation Capsule (Spiriva HandiHaler) Inhale 1 Capsule by mouth in the morning. 30 Capsule 2 08/16/2023 Active Additional Information Patient not taking.Reported on 11/09/2023 Albuterol Sulfate HFA 108 (90 Base) MCG/ACT Inhalation Aerosol SolutionIndications: COPD, group D, by GOLD 2017 classification ([facility]) Inhale 2 Puffs by mouth every [...] 24 Hour (Imdur)Indications:C oronary artery disease involving [place] coronary artery without angina pectoris TAKE [...] classification ([facility]) take one tablet by mouth in [...] Puff before bedtime. 60 Each 2 11/16/2023 Active risperiDONE 0.5 MG Oral Tablet (RisperDAL) [...] as of this encounter (statuses as of 12/01/2023) Active Problems Problem Noted Date Diagnosed Date [...] tis 01/05/2014 Coronary artery disease invo lving [place] coronary artery of [place] heart without angina pectoris 11/27/2013 Tobacco abuse 11/27/2013 HTN, goal below 130/80 03/06/2009 Overview: Modified per HTN protocol #16. documented as of this encounter (statuses as of 12/01/2023) Resolved Problems Problem Noted Date Diagnosed Date [...] as of this encounter (statuses as of 12/01/2023) Immunizations Name Administration Dates Next Due COVID-19 [...] to Q uit: Not Asked; Counseling Given: No Comments:started age 9. 1 1/2- 2 ppd. 11/09/23 Alcohol Use Standard Drinks/Week [...] - - Weight 91.6 kg (202 lb) 12/01/2023 11:33 AM EDT Height 177.8 cm (5' 10") 12/01/2023 11:33 AM EDT Body Mass Index 28.98 12/01/2023 11:33 AM EDT documented in this encounter Functional Status Functional [...] Progress Notes * Bettye Herrmann, DPM - 12/01/2023 11:40 AM EDT Podiatry Established Note [facility] Name: Walter oDn : 1945 Date: 12/01/2023 REASON FOR VISIT: foot care SUBJECTIVE: This patient is a 78 year old male who presents today for diabetic foot care. He has chronic callosities to both feet which are very tender. He also has fungal nails of which he cannot reach and trim himself. He feels the plantar first toe callus left side is the cause of his severe toepain. Last PCP appt with Dr. Newby was 07/19/2023. Past Medical History: Diagnosis Date Anemia of [...] bilaterally at the level of the toenail/spicule. Pain noted to the left lateral foot along peroneal brevis insertion and just proximal. Dermatological: Skin is thin, dry. No interdigital changes. Toenails 1-5 right are elongated, thickened >3mm, and discolored. Toenails 2-5 left are elongated, thickened, and discolored. There is absence of the left first toenail with medial nail spicule of skin noted which now extends over the nail bed. Hemosiderin deposition noted to the lower legs. Hyperkeratotic skin to the medial aspect of the first metata rsal head bilaterally and plantar medial hallux left. Q Codes: Q8 - Class [...] neuropathy, without long-term current use of insulin ([facility]) 2. Pain in both feet 3. Pre-ulcerative calluses x 3 4. Onychomycosis TA T1 T2 T3 T4 T5 T6 T7 T8 T9 PLAN: Procedure: After prepping the area with alcohol and allowing to dry, the hyperkeratotic lesions to the bilateral plantar foot and first toe (3 total) were sharply pared of all hyperkeratotic skin. This was performed with a #15 blade. An electrical umbrella bur was used to reduce any remaining edges. Procedure: After mild cleansing and drying of feet, toenails 1-5 right and 2-5 left were manually and mechanically debrided. A nail splitter was used to remove all incurvating edges. A hand nailer was used to trim nail to appropriate length. An electrical bur was used in a side to side motion to reduce nail thickness, hypertrophic growth, and to smooth all edges. Patient tolerated well. Pin point bleeding was noted to right third toe. I cleansed the area and applied silver nitrate. The patient was instructed to inspect area and contact this office with any questions or concerns. Follow up: 3 months foot care Bettye Herrmann DPM 12/01/2023 12:[address] [facility] [address] [place] [address] documented in this encounter Nursing Notes * Chula El LPN - 12/01/2023 11:30 AM EDT F/U Routine nail trimming left toe pain has returned patient notes after trimming stops hurting Last Glucose Meter was 131 on 07/12/2023 documented in this encounter Plan of Treatment Upcoming Encounters Date Type Department Care Team (Late st Contact Info) Description 01/19/2024 11:40 AM EDT Office Visit Family Practice [facility] [address] [place] [address] Johnnie Newby MD [address] [place] [address] 01/26/2024 10:00 AM EDT Imaging Radiology [facility] 1st [facility] [place] 132 [facility] [place] [address] 01/31/2024 10:00 AM EDT Office Visit Orthopaedics [facility] 132 [facility] [place] [address] Zander Wilkins, DO 132 [facility] [place] [address] 02/01/2024 11:30 AM EDT Office Visit Radiation Oncology, [address] [place] [address] Shawna Johnson MD [address] [place] [address] [place] [address] 02/07/2024 9:30 AM EDT Imaging Vascular Lab, [facility] 2nd [facility] [place] 132 [facility] [place] [address] 02/16/2024 10:30 AM EDT Office Visit Vascular Surgery, [facility] 132 [facility] [place] [address] Cyril Thompson MD [address] [place] [address] 03/03/2024 9:40 AM EST Office Visit Podiatry [facility] 132 [facility] [place] [address] Bettye Herrmann, SAMM [address] [place] [address] 03/28/2024 9:30 AM EST Office Visit Cardiology, [facility] 132 [facility] [place] [address] Deisy Aguirre CRNP [address] [place] [address] 11/08/2024 10:30 AM EDT Office Visit Sleep Disorders Ctr [facility] [address] [place] [phone] Hui Bishop CRNP [address] [place] [address] Scheduled Procedures Name Priority Associated Diagnoses Date/Ti [...] Additional history exists CKD PHOS USE SMARTSET 36412 04/15/202403/20, 06/05/2022, 06/03/2021, Additional history exists Depression Monitoring 04/22/2024 04/22/2023 CKD HGB USE SMARTSET 05170 09/01/202409/01, 09/02/2023, 06/03/2023, Additional history exists Colonoscopy [...] this encounter Medical Devices Implanted Type Area Loom Starter Device Identifier Shelf Expiration Date Model / Serial / Lot Lens Intraoc 24.0 - [id number] - [id number] Implanted:Qty: 1 on 06/01/2017 by Nikhil Bolton MD at OR [facility] Left: Eye BAUSCH [employer] LOMB 07/17/2021 [id number] / [id number] / [id number] Lens Intraoc 24.0 - [id number] - [id number] Implanted:Qty: 1 on 06/08/2017 by Nikhil Bolton MD at OR [facility] Right: Eye BAUSCH & LOMB 07/17/2021 [id number] / [id number] / [id number] documented as of this encounter Visit Diagnoses Diagnosis Type 2 diabetes mellitus with diabetic neuropathy, without long-term current use of insulin (HCC)- Primary Pain in both feet Pain in limb Pre-ulcerative calluses Corns and callosities Onychomycosis Dermatophytosis of nail documented in this encounter Advance Directives Documents on File Type Date Recorded 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 Care Teams Warehouse Man Relationship Specialty Start Date End Date Johnnie Newby MD 132 [facility] [place] [address] PCP - General Family Medicine 09/13/20 documented as of this encounter
--- OUTSIDE RECORDS SUMMARY | 2023-12-14 20:09 | External Medical Summary | Summary of Care ---
Author Name Unknown Organization [facility] Address [address] [place] [address] Phone [phone] Care Team Providers Care Tax Director Name Role Phone Johnnie Newby MD Primary Care Provider [phone] Reason for Visit * Reason Comments Medication Refill Encounter Details Date Type Department Care Team (Late st Contact Info) Description 11/14/2023 Refill Pulmonary Medicine, [facility] [address] [facility] [place] [address] Hi Dave MD [address] [place] [address] COPD, group D, by GOLD 2017 classification ([facility]) Allergies Active Allergy Reactions Criticality [...] Release 24 Hour (toPROL XL)Indications:SVT (supraventricular tachycardia) ([facility]),NSVT (nonsustained ventricular tachycardia) ([facility]) TAKE ONE TABLET BY MOUTH [...] 90 Tablet 1 4 025 Active Tiotropium [place] Monohydrate 18 MCG Inhalation Capsule (Spiriva HandiHaler) Inhale 1 Capsule by mouth in the morning. 30 Capsule 2 4 Active Additional Information Patient not taking.Reported on 11/09/2023 Albuterol Sulfate HFA 108 (90 Base) MCG/ACT Inhalation Aerosol SolutionIndication s:COPD, group D, by GOLD 2017 classification ([facility]) Inhale 2 Puffs by mouth every [...] 24 Hour (Imdur)Indications :Coronary artery disease involving [place] coronary artery without angina pectoris TAKE ONE TABLET BY MOUTH EVERY MORNING 100 Tablet 3 4 025 Active Budesonide 0.25 MG/2ML Inhalation Suspension (Pulmicort) Inhale 0.25 mg via nebulizer 2 times a day as needed for Dyspnea or Wheezing. 160 mL 3 4 024 Active Roflumilast 500 MCG Oral Tablet (Daliresp)Indicati ons:COPD, group D, by GOLD 2017 classification ([facility]) take one tablet by mouth in [...] tis 01/05/2014 Coronary artery disease invo lving [place] coronary artery of [place] heart without angina pectoris 11/27/2013 Tobacco [...] mRNA, LNP-s, No Pre serve, 2-Dose Series (Storefront) 02/25/2023,02/10/2022,07/13/2020,06/17 Pneumococcal Conjugate Vacc, 13 Valent (Prevnar) [...] Gan LPN - 12/02/2023 11:14 AM EDT Albuterol rx didn't go through earlier this week. Please re-sign the order below. * Telephone Encounter - Hi Dave MD [...] Description 12/02/2023 3:00 PM EDT Laboratory Laboratory, [facility] [address] [place] [phone] [facility] [address] [place] [address] 01/19/2024 11:40 AM EDT Office Visit Family Practice [facility] [address] [place] [address] Johnnie Newby MD [address] [place] [address] 01/26/2024 10:00 AM EDT Imaging Radiology [facility] 1st [facility] [place] [address] [place] [address] 01/31/2024 10:00 AM EDT Office Visit Orthopaedics [facility] [address] [place] [address] Zander Wilkins, [address] [place] [address] 02/01/2024 11:30 AM EDT Office Visit Radiation Oncology, [address] [place] [address] Shawna Johnson MD [address] [place] [address] [place] [address] 02/07/2024 9:30 AM EDT Imaging Vascular Lab, [facility] 2nd [facility] [place] [address] [place] [address] 02/16/2024 10:30 AM EDT Office Visit Vascular Surgery, [facility] [address] [place] [address] Cyril Thompson MD [address] [place] [address] 03/03/2024 9:40 AM EST Office Visit Podiatry [facility] 132 [facility] [place] [address] Bettye Herrmann, DPM 400 [facility] [place] [address] 03/28/2024 9:30 AM EST Office Visit Cardiology, [facility] 132 [facility] [place] [address] Deisy Aguirre CRNP 132 [facility] [place] [address] 11/08/2024 10:30 AM EDT Office Visit Sleep Disorders Ctr [facility] 132 [facility] [place] [phone] Hui Bishop CRNP [facility] [address] Scheduled Procedures Name Priority Associated Diagnoses Date/Ti [...] Additional history exists CKD PHOS USE SMARTSET 10446 04/15/202403/20, 06/05/2022, 06/03/2021, Additional history exists Depression Monitoring 04/22/2024 04/22/2023 CKD HGB USE SMARTSET 48792 09/01/202409/01, 09/02/2023, 06/03/2023, Additional history exists Colonoscopy [...] this encounter Medical Devices Implanted Type Area Audio Visual Arts Director Device Identifier Shelf Expiration Date Model / Serial / Lot Lens Intraoc 24.0 - [id number] - [id number] Implanted:Qty: 1 on 06/01/2017 by Nikhil Bolton MD at OR [facility] Left: Eye BAUSCH & LOMB 07/17/2021 [id number] / [id number] / [id number] Lens Intraoc 24.0 - [id number] - [id number] Implanted:Qty: 1 on 06/08/2017 by Nikhil Bolton MD at OR [facility] Right: Eye BAUSCH & LOMB 07/17/2021 [id number] / [id number] / [id number] documented as of this encounter Visit Diagnoses Diagnosis COPD, group D, by GOLD 2017 classification (HCC) documented in this encounter Advance Directives Documents on File Type Date Recorded Patient Seed And Fertilizer Specialist Expl 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 Care Teams Tax Director Relationship Specialty Start Date End Date Johnnie Newby MD [address] [place] [address] PCP - General Family Medicine 09/13/20 documented as of this encounter
--- OUTSIDE RECORDS SUMMARY | 2023-12-14 20:09 | External Medical Summary | Summary of Care ---
Author Name Unknown Organization [facility] Address [address] [place] [address] Phone [phone] Care Team Providers Care Content Management Specialist Name Role Phone Johnnie Newby MD Primary Care Provider [phone] Reason for Visit * Reason Comments Medication Refill Encounter Details Date Type Department Care Team (Late st Contact Info) Description 12/02/[address] [facility] [address], [place] [id number] Johnnie Newby MD [address] [place], [place] [phone] Allergies Active Allergy Reactions Criticality Noted Date Comments Acetaminophen 05/06/2005 headaches documented as of this encounter (statuses as of 12/03/2023) Medications Medication Sig Dispensed Refills Start Date [...] goal of less than 7.0% ([facility]) TEST ONCE DAILY 100 Strip 5 03/02/2018 Active BiPAP every night at bedtime. Active Vitamin B-12 1000 MCG Oral Tablet (Cyanocobalamin) Take 1 Tablet by mouth in the morning. Active Metoprolol Succinate ER 25 MG Oral Tablet Extended Release 24 Hour (toPROL XL)Indications:SVT (supraventricular tachycardia) ([facility]),NSVT (nonsustained ventricular tachycardia) ([facility]) TAKE ONE TABLET BY MOUTH [...] 90 Tablet 1 08/05/2023 5 Active Tiotropium [place] Monohydrate 18 MCG Inhalation Capsule (Spiriva HandiHaler) Inhale 1 Capsule by mouth in the morning. 30 Capsule 2 08/16/2023 Active Additional Information Patient not taking.Reported on 11/09/2023 Albuterol Sulfate HFA 108 (90 Base) MCG/ACT Inhalation Aerosol SolutionIndications: COPD, group D, by GOLD 2017 classification ([facility]) Inhale 2 Puffs by mouth [...] 24 Hour (Imdur)Indications:C oronary artery disease involving kaw coronary artery without angina pectoris TAKE ONE TABLET BY MOUTH EVERY MORNING 100 Tablet 3 08/30/2023 5 Active Budesonide 0.25 MG/2ML Inhalation Suspension (Pulmicort) Inhale 0.25 mg via nebulizer 2 times a day as needed for Dyspnea or Wheezing. 160 mL 3 08/31/2023 4 Active Roflumilast 500 MCG Oral Tablet (Daliresp)Indication s:COPD, group D, by GOLD 2017 classification ([facility]) take one tablet by mouth [...] as of this encounter (statuses as of 12/03/2023) Active Problems Problem Noted Date Diagnosed Date [...] tis 01/05/2014 Coronary artery disease invo lving kaw coronary artery of kaw heart without angina pectoris 11/27/2013 Tobacco abuse 11/27/2013 HTN, goal below 130/80 03/06/2009 Overview: Modified per HTN protocol #16. documented as of this encounter (statuses as of 12/03/2023) Resolved Problems Problem Noted Date Diagnosed Date [...] as of this encounter (statuses as of 12/03/2023) Immunizations Name Administration Dates Next Due COVID-19 mRNA, LNP-s, No Pre serve, 2-Dose Series ([facility]) 02/25/2023,02/10/2022,07/13/2020,06/17 Pneumococcal Conjugate Vacc, 13 Valent (Prevnar) [...] encounter Miscellaneous Notes * Telephone Encounter - Ricki Braun [facility] - 12/03/2023 4:34 PM EDT Refused Prescriptions: Disp Refills Apixaban 5 MG Oral Tablet (Eliquis) 180 Ta*3 Sig: Take 1 Tabletby mouth in the morning and 1 Tablet before bedtime.Refused By: RICKI BRAUN for Refusal: Too soonReason for Refusal Comment: 1yr sent to [facility] 10/12 documented in this encounter Plan of Treatment Upcoming Encounters Date Type Department Care Team (Late st Contact Info) Description 01/19/2024 11:40 AM EDT Office Visit Family Practice [facility] [address] [place] [address] Johnnie Newby MD [address] [place] [address] 01/26/2024 10:00 AM EDT Imaging Radiology [address] [place] [address] 01/31/2024 10:00 AM EDT Office Visit Orthopaedics [facility] [address] [place] [address] Zander Wilkins, [address] [place] [address] 02/01/2024 11:30 AM EDT Office Visit Radiation Oncology, [address] [place] [address] Shawna Johnson MD [address] [place] [address] [place] [address] 02/07/2024 9:30 AM EDT Imaging Vascular Lab, [facility] 2nd Floor, [place] 132 [facility] [place] [address] 02/16/2024 10:30 AM EDT Office Visit Vascular Surgery, [facility] 132 [facility] [place] [address] Cyril Thompson MD [address] [place] [address] 03/03/2024 9:40 AM EST Office Visit Podiatry [address] [place] [address] Bettye Herrmann DPM [address] [place] [address] 03/28/2024 9:30 AM EST Office Visit Cardiology, [facility] 132 [facility] [place] [address] Deisy Aguirre CRNP 132 [facility] [place] [address] 11/08/2024 10:30 AM EDT Office Visit Sleep Disorders Ctr [facility] 132 [facility] [place] [phone] Hui Bishop CRNP 132 [facility] [place] [address] Scheduled Procedures Name Priority Associated Diagnoses Date/Ti [...] 09/09/2022, 1 , 11/12/2017, Additional history exists Influenza Vaccine (FLU shot) (#1) 2023 12/31/2022, 02/10/2022, 03/05/2021, Additional history exists DTaP,Tdap,and Td Vaccines (2 - Td or Tdap) 01/06/2024 01/05/2014 O2 ASSESSMENT COMPLETED IN PAST YEAR FOR COPD 01/15/2024 01/14/2023 Albumin/Creatinine Ratio 02/05/2024 023, 01/15/2023, 06/04/2021, Additional history exists GFR 03/04/2024 09/02/2023, 03/21, 04/17/2023, Additional history exists CKD PHOS USE SMARTSET 75217 04/15/202403/20, 06/05/2022, 06/03/2021, Additional history exists Depression Monitoring 04/22/2024 04/22/2023 HbA1c 06/03/2024 12/02/2023, 03/20, 01/15/2023, Additional history exists CKD HGB USE SMARTSET 44229 09/01/202409/01, 09/02/2023, 06/03/2023, Additional history exists Colonoscopy [...] encounter Medical Devices Implanted Type Area Supervisor Tellers Device Identifier Shelf Expiration Date Model / Serial / Lot Lens Intraoc 24.0 - [id number] - [id number] Implanted:Qty: 1 on 06/01/2017 by Nikhil Bolton MD at OR [facility] Left: Eye [employer]OM[employer] 07/17/2021 [id number] / [id number] / [id number] Lens Intraoc 24.0 - [id number] - [id number] Implanted:Qty: 1 on 06/08/2017 by Nikhil Bolton MD at OR [facility] Right: Eye BA[employer]CH [employer] LOMB 07/17/2021 [id number] / [id number] / [id number] documented as of this encounter Advance Directives Documents on File Type Date Recorded 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 Care Teams Content Management Specialist Relationship Specialty Start Date End Date Johnnie Newby MD [address] [address] PCP - General Family Medicine 09/13/20 documented as of this encounter
--- OUTSIDE RECORDS SUMMARY | 2023-12-14 20:09 | External Medical Summary | Summary of Care ---
Author Name Unknown Organization [facility] Address [address] [place] [address] Phone [phone] Care Team Providers Care Regional Commercial Sales Manager Name Role Phone Johnnie Newby MD Primary Care Provider [phone] Reason for Visit * Reason Onset Date Comments Advice 08/25/2023 Encounter Details Date Type Department Care Team (Late st Contact Info) Description 08/25/2023 Telephone Family Practice [facility] [address] [facility] [place] [address] Johnnie Newby MD 132 [place] [address] Advice Allergies Active Allergy Reactions Criticality Noted Date Comments Acetaminophen 05/06/2005 headaches documented as of this encounter (statuses as of 11/24/2023) Medications Medication Sig Dispensed Refills Start Date [...] for Pain, Severe. 90 Tablet 4 Active Colchicine 0.6 MG Oral Tablet Take 2 tablets by mouth. One hour later, take 1 tablet by mouth. Take 1 tablet by mouth once daily after until symptoms resolve. 90 Tablet 4 Active Additional Information Patient not taking.Reported on 09/16/2023 Atorvastatin Calcium 80 MG Oral Tablet (Lipitor) TAKE ONE TABLET BY MOUTH AT BEDTIME 90 Tablet 1 4 025 Active Tiotropium K[place] Monohydrate 18 MCG Inhalation Capsule (Spiriva HandiHaler) Inhale 1 Capsule by mouth in the morning. 30 Capsule 2 4 Active Additional Information Patient not taking.Reported on 11/09/2023 Albuterol Sulfate HFA 108 (90 Base) MCG/ACT Inhalation Aerosol SolutionIndication s:COPD, group D, by GOLD 2017 classification ([facility]) Inhale 2 Puffs by mouth every 6 [...] 24 Hour (Imdur)Indications :Coronary artery disease involving upper mattap[place] coronary artery without angina pectoris TAKE ONE TABLET BY MOUTH EVERY MORNING 90 Tablet 3 3 024 Discontinued(Re fill) Apixaban 5 MG Oral Tablet (Eliquis) Take 1 Tablet by mouth in the morning and 1 Tablet before bedtime. 180 Tablet 3 3 024 Discontinued(Re fill) Furosemide 40 MG Oral Tablet (Lasix)Indications :HTN, goal below 140/90 Take 1 Tablet by mouth in the morning. 100 Tablet 1 3 024 Discontinued(Re fill) Fluticasone Propionate 50 MCG/ACT Nasal Suspension (Flonase) USE TWO SPRAYS IN EACH NOSTRIL IN THE MORNING 16 g 1 3 024 Discontinued(Re fill) Omeprazole 20 MG Oral Capsule Delayed Release (PriLOSEC)Indicati ons:Gastroesophage al reflux disease without esophagitis TAKE ONE CAPSULE BY MOUTH EVERY MORNING *NEED UPDATED LABS* 90 Capsule 1 3 024 Discontinued(Re fill) Mirtazapine 15 MG Oral Tablet (Remeron) Take one- half tablet by mouth every night 45 Tablet 4 024 Discontinued(Me dication List Clean Up) Budesonide 0.25 MG/2ML Inhalation Suspension (Pulmicort) Inhale 0.25 mg via nebulizer 2 times a day as needed for Dyspnea or Wheezing. 160 mL 3 4 024 Discontinued(Re fill) Fluticasone-Salmet gume 250-50 MCG/ACT Inhalation Aerosol Powder Breath Activated (Advair Diskus) Inhale 1 Puff by mouth in the morning and 1 Puff before bedtime. 60 Each 2 4 024 Discontinued(Re fill) Roflumilast 500 MCG Oral Tablet (Daliresp)Indicati ons:COPD, group D, by GOLD 2017 classification (HCC) Take 1 Tablet by mouth in the morning. 30 Tablet 2 4 024 Discontinued(Re fill) FLUoxetine HCl 20 MG Oral Capsule (PROzac) take 3 capsules by mouth every morning 270 Capsule 4 024 Discontinued(Me dication List Clean Up) risperiDONE 0.5 MG Oral Tablet (RisperDAL) take 1 tablet by mouth twice daily 180 Tablet 4 024 Discontinued Hospital, Clinic, or Other Facility Administered Medication Ordered Dose Route Frequency Start Date End Date Status albuterol sulfate (PROVENTIL) (2.5 MG/3ML) 0.083% inhalation solution 2.5 mgIndications:COPD, severe (HCC) 2.5 mg NEBULIZER Q4H PRN 07/08/2018 Active documented as of this encounter (statuses as of 11/24/2023) Active Problems Problem Noted Date Diagnosed Date [...] 01/05/2014 Coronary artery disease invo lving upper mattaponi coronary artery of upper mattaponi heart without angina pectoris 11/27/2013 Tobacco abuse 11/27/2013 HTN, goal below 130/80 03/06/2009 Overview: Modified per HTN protocol #16. documented as of this encounter (statuses as of 11/24/2023) Resolved Problems Problem Noted Date Diagnosed Date [...] as of this encounter (statuses as of 11/24/2023) Immunizations Name Administration Dates Next Due COVID-19 [...] encounter Miscellaneous Notes * Telephone Encounter - Smitha Newton LPN - 09/02/2023 1:36 PM EDT Faxed with form * Telephone Encounter - Johnnie Newby MD - 09/01/2023 1:06 PM EDT Addended. * Telephone Encounter - Smitha Newton LPN - 08/31/2023 11:57 AM EDT Need to addendum office note from 07/19/2023 to reflect the need for diabetic shoes * Telephone Encounter - Stacy Jordan OSA - 08/25/2023 11:30 AM EDT Pt is looking for to get diabetic shoes. His daughter states that a letter of medical necessity wassent for this on 08/20/2023 and 08/22/2023. She is going to have this faxed again today. Pt needs this completed ying. Just an FYI documented in this encounter Plan of Treatment Upcoming Encounters Date Type Department Care Team (Late st Contact Info) Description 12/01/2023 11:40 AM EDT Office Visit Podiatry [facility] [address] [place] [address] Bettye Herrmann, DPM 400 [facility] [place] [address] 01/19/2024 11:40 AM EDT Office Visit Family Practice [facility] [address] [place] [address] Johnnie Newby MD [address] [place] [address] 01/26/2024 10:00 AM EDT Imaging Radiology [address] [place] [address] 01/31/2024 10:00 AM EDT Office Visit Orthopaedics [facility] 132 [facility] [place] [address] Zander Wilkins, 132 [facility] [place] [address] 02/01/2024 11:30 AM EDT Office Visit Radiation Oncology, [address] [place] [address] Shawna Johnson MD [facility] [place] [address] 02/07/2024 9:30 AM EDT [facility] 132 [facility] [place] [address] 02/16/2024 10:30 AM EDT Office Visit Vascular Surgery, [facility] 132 [facility] [place] [address] Cyril Thompson MD [address] [place] [address] 03/28/2024 9:30 AM EST Office Visit Cardiology, [facility] 132 [facility] [place] [address] Deisy Aguirre CRNP 132 [facility] [place] [address] 11/08/2024 10:30 AM EDT Office Visit Sleep Disorders Ctr [facility] 132 [facility] [place] [phone] Hui Bishop CRNP 132 [facility] [place] [address] Scheduled Procedures Name Priority Associated Diagnoses Date/Ti [...] Additional history exists CKD PHOS USE SMARTSET 86505 04/15/202403/20, 06/05/2022, 06/03/2021, Additional history exists Depression Monitoring 04/22/2024 04/22/2023 CKD HGB USE SMARTSET 47993 09/01/202409/01, 09/02/2023, 06/03/2023, Additional history exists Colonoscopy [...] this encounter Medical Devices Implanted Type Area Sheep And Wheat Farmer Device Identifier Shelf Expiration Date Model / Serial / Lot Lens Intraoc 24.0 - [id number] - [id number] Implanted:Qty: 1 on 06/01/2017 by Nikhil Bolton MD at OR [facility] Left: Eye BAUSCH [employer] LOMB 07/17/2021 [id number] / [id number] / [id number] Lens Intraoc 24.0 - [id number] - [id number] Implanted:Qty: 1 on 06/08/2017 by Nikhil Bolton MD at OR [facility] Right: Eye BAUSCH [employer] LOMB 07/17/2021 [id number] / [id number] / [id number] documented as of this encounter Advance Directives Documents on File Type Date Recorded 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 Care Teams Regional Commercial Sales Manager Relationship Specialty Start Date End Date Johnnie Newby MD [address] [place] [address] PCP - General Family Medicine 09/13/20 documented as of this encounter
--- OUTSIDE RECORDS SUMMARY | 2023-12-14 20:09 | External Medical Summary | Summary of Care ---
Author Name Unknown Organization [facility] Address [address] [place] [address] Phone [phone] Care Team Providers Care Wood Type Cutter Name Role Phone Johnnie Newby MD Primary Care Provider [phone] Encounter Details Date Type Department Care Team (Late st Contact Info) Description 12/01/2023 Orders Only PATIENT PORTAL DO NOT DELETE THIS DEPT USED BY [place] [address] Allergies Active Allergy Reactions Criticality Noted Date [...] of less than 7.0% ([facility]) TEST ONCE DAILY 100 Strip 5 03/02/2018 Active BiPAP every night at bedtime. Active Vitamin B-12 1000 MCG Oral Tablet (Cyanocobalamin) Take 1 Tablet by mouth in the morning. Active Metoprolol Succinate ER 25 MG Oral Tablet Extended Release 24 Hour (toPROL XL)Indications:SVT (supraventricular tachycardia) (HCC),NSVT (nonsustained ventricular tachycardia) ([facility]CC) TAKE ONE TABLET BY MOUTH EVERY DAY 90 Tablet 3 12/09/2022 4 Active Vitron-C 65-125 MG Oral [...] 90 Tablet 1 08/05/2023 5 Active Tiotropium [place] Monohydrate 18 MCG Inhalation Capsule (Spiriva HandiHaler) Inhale 1 Capsule by mouth in the morning. 30 Capsule 2 08/16/2023 Active Additional Information Patient not taking.Reported on 11/09/2023 Albuterol Sulfate HFA 108 (90 Base) MCG/ACT Inhalation Aerosol SolutionIndications: COPD, group D, by GOLD 2017 classification ([facility]) Inhale 2 Puffs by mouth every 6 [...] 24 Hour (Imdur)Indications:C oronary artery disease involving kalispel coronary artery without [...] by GOLD 2017 classification ([facility]) take one tablet by mouth in the [...] 12/01/2023 11:40 AM EDT Office Visit Podiatry [facility] 132 [facility] [place] [address] Bettye Herrmann, DPM 400 [facility] [place] [address] 01/19/2024 11:40 AM EDT Office Visit Family Practice [facility] [address] [place] [address] Johnnie Newby MD [address] [place] [address] 01/26/2024 10:00 AM EDT Imaging Radiology [facility] 1st Floor, [place] [address] [place] [address] 01/31/2024 10:00 AM EDT Office Visit Orthopaedics [facility] [address] [place] [address] Zander Wilkins, [address] [place] [address] 02/01/2024 11:30 AM EDT Office Visit Radiation Oncology, [address] [place] [address] Shawna Johnson MD [address] [place] [address] [place] [address] 02/07/2024 9:30 AM EDT Imaging Vascular Lab, [facility] 2nd Floor, [place] [address] [place] [place] [address] 02/16/2024 10:30 AM EDT Office Visit Vascular Surgery, [facility] [address] [place] [address] Cyril Thompson MD [address] [facility] [place] [address] 03/28/2024 9:30 AM EST Office Visit Cardiology, [facility] [address] [place] [address] Deisy Aguirre CRNP [address] [place] [address] 11/08/2024 10:30 AM EDT Office Visit Sleep Disorders Ctr [facility] [address] [place] [phone] Hui Bishop, CHRISTOPHE [address] [place] [address] Scheduled Procedures Name Priority Associated Diagnoses Date/Ti [...] 06/04/2021, Additional history exists GFR 03/04/2024 09/02/2023, 12/04/2022, 04/17/2023, Additional history exists CKD PHOS USE SMARTSET 53165 04/15/202403/20, 06/05/2022, 06/03/2021, Additional history exists Depression Monitoring 04/22/2024 04/22/2023 CKD HGB USE SMARTSET 44786 09/01/202409/01, 09/02/2023, 06/03/2023, Additional history exists Colonoscopy [...] this encounter Medical Devices Implanted Type Area Oil And Gas Superintendent Device Identifier Shelf Expiration Date Model / Serial / Lot Lens Intraoc 24.0 - [id number] - [id number] Implanted:Qty: 1 on 06/01/2017 by Nikhil Bolton MD at OR [facility] Left: Eye BAUSCH [employer] LOMB 07/17/2021 [id number] / [id number] / [id number] Lens Intraoc 24.0 - [id number] - [id number] Implanted:Qty: 1 on 06/08/2017 by Nikhil Bolton MD at OR [facility] Right: Eye BAUSCH [employer] LOMB 07/17/2021 [id number] / [id number] / [id number] documented as of this encounter Advance Directives Documents on File Type Date Recorded Patient Manager Intensive Care Expl anation Advance Directives and Yu fine [...] were consensually agreed upon. Care Teams Wood Type Cutter Relationship Specialty Start Date End Date Johnnie Newby MD [address] [address] PCP - General Family Medicine 09/13/20 documented as of this encounter
--- OUTSIDE RECORDS SUMMARY | 2023-12-14 20:09 | External Medical Summary | Summary of Care ---
Author Name Unknown Organization [facility] Address [address] [place] [address] Phone [phone] Care Team Providers Care Learning Coach Name Role Phone Johnnie Newby MD Primary Care Provider [phone] Reason for Visit * Reason Comments Outpatient Testing Encounter Details Date Type Department Care Team (Late st Contact Info) Description 12/02/2023 3:00 PM EDT Laboratory [facility], [facility] [id number] [facility] 132 [place] [address] Gouty arthropathy; Type 2 diabetes mellitus with hemoglobin A1c goal of less than 8.0% ([facility]) Allergies Active Allergy Reactions Criticality Noted Date [...] 24 Hour (toPROL XL)Indications:SVT (supraventricular tachycardia) ([facility]),NSVT (nonsustained ventricular tachycardia) ([facility] [...] 90 Tablet 1 08/05/2023 5 Active Tiotropium [place] Monohydrate 18 MCG Inhalation Capsule (Spiriva HandiHaler) Inhale 1 Capsule by mouth in the morning. 30 Capsule 2 08/16/2023 Active Additional Information Patient not taking.Reported on 11/09/2023 Albuterol Sulfate HFA 108 (90 Base) MCG/ACT Inhalation Aerosol SolutionIndications: COPD, group D, by GOLD 2017 classification ([facility]) Inhale 2 Puffs by mouth every 6 [...] 24 Hour (Imdur)Indications:C oronary artery disease involving [place] coronary artery without angina pectoris TAKE ONE [...] classification ([facility]) take one tablet by mouth in the [...] tis 01/05/2014 Coronary artery disease invo lving [place] coronary artery of [place] heart without angina pectoris 11/27/2013 Tobacco abuse [...] mRNA, LNP-s, No Pre serve, 2-Dose Series ([employer]) 02/25/2023,02/10/2022,07/13/2020,06/17 Pneumococcal Conjugate Vacc, 13 Valent [...] [facility] Practice [facility] [place] [address] Johnnie Newby MD [address] [place] [address] 01/26/2024 10:00 AM EDT Imaging Radiology [facility] 1st [facility] [place] [address] [facility] [place] [address] 01/31/2024 10:00 AM EDT Office Visit Orthopaedics [facility] [address] [facility] [place] [address] Zander Wilkins, [address] [facility] [place] [address] 02/01/2024 11:30 AM EDT Office Visit Radiation Oncology, [address] [place] [address] Shawna Johnson MD [address] [place] [address] [place] [address] 02/07/2024 9:30 AM EDT Imaging Vascular Lab, [facility] II 2nd Floor, [place] [address] [facility] [place] [address] 02/16/2024 10:30 AM EDT Office Visit Vascular Surgery, [facility] [address] [facility] [place] [address] Cyril Thompson MD [address] [facility] [place] [address] 03/03/2024 9:40 AM EST Office Visit Podiatry [facility] [address] [facility] [place] [address] Bettye Herrmann, DPLiat [address] [facility] [place] [address] 03/28/2024 9:30 AM EST Office Visit Cardiology, [facility] [address] [facility] [place] [address] Deisy Aguirre CRNP [address] [place] [address] 11/08/2024 10:30 AM EDT Office Visit Sleep Disorders Ctr [facility] [address] [facility] [place] [phone] Hui Bishop CRNP [address] [facility] [place] [address] Pending Results Name Type Priority Associated Diagnoses Date /Time URIC ACID Lab Routine Gouty arthropathy 12/02/2023 2:45 PM EDT HEMOGLOBIN A1C Lab Routine Type 2 diabetes mellitus with hemoglobin A1c goal of less than 8.0% ([facility]) 12/02/2023 2:45 PM EDT Scheduled Procedures Name [...] Additional history exists CKD PHOS USE SMARTSET 64844 04/15/202403/20, 06/05/2022, 06/03/2021, Additional history exists Depression Monitoring 04/22/2024 04/22/2023 CKD HGB USE SMARTSET 08066 09/01/202409/01, 09/02/2023, 06/03/2023, Additional history exists Colonoscopy [...] this encounter Medical Devices Implanted Type 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 Fabric Worker Supervisor Device Identifier Shelf Expiration Date Model / Serial / Lot Lens Intraoc 24.0 - [id number] - [id number] Implanted:Qty: 1 on 06/01/2017 by Nikhil Bolton MD at OR [facility] Left: Eye [employer] 07/17/2021 [id number] / [id number] / [id number] Lens Intraoc 24.0 - [id number] - [id number] Implanted:Qty: 1 on 06/08/2017 by Nikhil Bolton MD at OR [facility] Right: Eye [employer] 07/17/2021 [id number] / [id number] / [id number] documented as of this encounter Visit Diagnoses Diagnosis Gouty arthropathy Gouty arthropathy, unspecified Type 2 diabetes mellitus with hemoglobin A1c goal of less than 8.0% ([facility]) documented in this encounter Advance Directives Documents on File Type Date Recorded 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 Care Teams Learning Coach Relationship Specialty Start Date End Date Johnnie Newby MD [address] [facility] [place] [address] PCP - General Family Medicine 09/13/20 documented as of this encounter
--- OUTSIDE RECORDS SUMMARY | 2023-12-14 20:10 | External Medical Summary | Summary of Care ---
Author Name Unknown Organization [facility] Address [address] [place] [address] Phone [phone] Care Team Providers Care Chief Airline Radio Operator Name Role Phone Johnnie Newby MD Primary Care Provider [phone] Reason for Visit * Reason Onset Date Comments Medication Pre-auth 07/19/2023 Hydrocodone- acetaminophen Encounter Details Date Type Department Care Team (Late st Contact Info) Description 07/19/2023 Telephone Family Practice [facility] [address] [place] [address] Johnnie Newby MD 132 [place] [address] Medication Pre-auth (Hydrocodone-acetamino. .. Allergies Active Allergy Reactions Criticality Noted Date Comments Acetaminophen 05/06/2005 headaches documented as of this encounter (statuses as of 10/18/2023) Medications Medication Sig Dispensed Refills Start Date [...] EVERY DAY 90 Tablet 3 12/09/2022 12/09/19 Active Vitron-C 65-125 MG Oral Tablet (Iron-Vitamin [...] for Pain, Severe. 90 Tablet 07/19/2023 Active Isosorbide Mononitrate ER 60 MG Oral Tablet Extended Release 24 Hour (Imdur)Indications: Coronary artery disease involving [place] coronary artery without angina pectoris TAKE ONE TABLET BY MOUTH EVERY MORNING 90 Tablet 3 09/18/2022 08/29/19 24 Discontinu ed(Refill) Apixaban 5 MG Oral Tablet (Eliquis) Take 1 Tablet by mouth in the morning and 1 Tablet before bedtime. 180 Tablet 3 12/08/2022 09/28/19 24 Discontinu ed(Refill) Atorvastatin Calcium 80 MG Oral Tablet (Lipitor) TAKE ONE TABLET BY MOUTH AT BEDTIME 90 Tablet 1 12/09/2022 08/04/19 24 Discontinu ed(Refill) Furosemide 40 MG Oral Tablet (Lasix)Indications: HTN, goal below 140/90 Take 1 Tablet by mouth in the morning. 100 Tablet 1 01/15/2023 09/18/19 24 Discontinu ed(Refill) Fluticasone Propionate 50 MCG/ACT Nasal Suspension (Flonase) USE TWO SPRAYS IN EACH NOSTRIL IN THE MORNING 16 g 1 01/15/2023 09/24/19 24 Discontinu ed(Refill) Omeprazole 20 MG Oral Capsule Delayed Release (PriLOSEC)Indicatio ns:Gastroesophageal reflux disease without esophagitis TAKE ONE CAPSULE BY MOUTH EVERY MORNING *NEED UPDATED LABS* 90 Capsule 1 03/21/2023 09/17/19 24 Discontinu ed(Refill) Mirtazapine 15 MG Oral Tablet (Remeron) Take one- half tablet by mouth every night 45 Tablet 05/06/2023 09/05/19 24 Discontinu ed(Medicat ion List Clean Up) Budesonide 0.25 MG/2ML Inhalation Suspension (Pulmicort) Inhale 0.25 mg via nebulizer 2 times a day as needed for Dyspnea or Wheezing. 160 mL 3 05/24/2023 08/31/19 24 Discontinu ed(Refill) Wixela Inhub 250-50 MCG/ACT Inhalation Aerosol Powder Breath Activated (Fluticasone-Salmet gume) Inhale 1 Puff by mouth in the morning and 1 Puff before bedtime. 60 Each 2 05/24/2023 08/10/19 24 Discontinu ed(Refill) Roflumilast 500 MCG Oral Tablet (Daliresp)Indicatio ns:COPD, group D, by GOLD 2017 classification (HCC) Take 1 Tablet by mouth in the morning. 30 Tablet 2 05/24/2023 08/10/19 24 Discontinu ed(Refill) Tiotropium Val[place] Monohydrate 18 MCG Inhalation Capsule (Spiriva) Inhale 1 Capsule by mouth in the morning. 30 Capsule 2 05/24/2023 08/16/19 24 Discontinu ed(Refill) Hospital, Clinic, or Other Facility Administered Medication Ordered Dose Route Frequency Start Date End Date Status albuterol sulfate (PROVENTIL) (2.5 MG/3ML) 0.083% inhalation solution 2.5 mgIndications:COPD, severe (HCC) 2.5 mg NEBULIZER Q4H PRN 07/08/2018 Active documented as of this encounter (statuses as of 10/18/2023) Active Problems Problem Noted Date Diagnosed Date [...] tis 01/05/2014 Coronary artery disease invo lving [place] coronary artery of [place] heart without angina pectoris 11/27/2013 Tobacco abuse 11/27/2013 HTN, goal below 130/80 03/06/2009 Overview: Modified per HTN protocol #16. documented as of this encounter (statuses as of 10/18/2023) Resolved Problems Problem Noted Date Diagnosed Date [...] as of this encounter (statuses as of 10/18/2023) Immunizations Name Administration Dates Next Due COVID-19 mRNA, LNP-s, No Pre serve, 2-Dose Series ([employer]) 02/25/2023,02/10/2022,07/13/2020,06/17 Pneumococcal Conjugate Vacc, 13 Valent (Prevnar) [...] encounter Miscellaneous Notes * Telephone Encounter - Leonie Jordan PHARM Tech - 07/22/2023 12:02 PM EDT Patients insurance would like to inform the office that Hydrocodone- acetaminophen is approved untilone time override for O niave. Patient and pharmacy made aware by [facility]. Information will be faxed tothe office. Thank you, Leonie Jordan Scenic Designer I [facility] ([facility] (Formerly [facility]) 07/22/2023,12:02 PM * Telephone Encounter - Lorenza Moreno LPN - 07/21/2023 4:32 PM EDT Last OV from Dr. Newby printed and faxed to number given below. * Telephone Encounter - Fidel Jones CPhT - 07/21/2023 4:27 PM EDT Patients insurance would like to inform the office that HYDROCODONE-ACETAMIN 5- 325 MG is requiring additional information: NEED OFFICE NOTES. Prior authorization entered in [employer] at [facility]. EOC# [id number] Please fax to [phone] before 07/22/2023 at 1130AM. Thank you, Wander Jones ([facility]) Order To Delivery Supervisor III [facility] ([facility]) (formerly Telepharmacy) 07/21/2023, 4:27 PM * Telephone Encounter - Craoline Baumann CPhT - 07/19/2023 12:39 PM EDT Pharmacy calling to inform doctor that the patient's insurance will not pay for this medication without a completed prior authorization. Did confirm this information with the pharmacy. Pt's current insurance information is as follows: Patient name: Walter Don ID number: [id number] BIN number: [id number] PCN number: [id number] Group number: Subscriber name: Walter Don Primary or Secondary Insurance:Primary Medication: hydrocodone -acetaminophen 5-325 Reason for Request: pa required Pharmacy and phone number: [facility] [phone] Rx plan and phone number: [facility] [phone] Is this a new medication for the patient? Yes What alternative medications does the pharmacy have in stock?: Thank you, Caroline Baumann CPhT Order To Delivery Supervisor [facility] ([facility] (Formerly [facility]) 07/19/2023, 12:40 PM documented in this encounter Plan of Treatment Upcoming Encounters Date Type Department Care Team (Late st Contact Info) Description 10/27/2023 9:00 AM EDT Office Visit Orthopaedics [facility] [address] [facility] [place] [address] Zander Wilkins, [address] [facility] [place] [address] 12/01/2023 11:40 AM EDT Office Visit Podiatry [facility] [address] [facility] [place] [address] Bettye Herrmann DPM [address] [place] [address] [place] [address] 01/18/2024 12:30 PM EDT Office Visit Sleep Disorders Ctr [facility] [address] [place] [phone] Hui Bishop CRNP [address] [place] [address] 01/19/2024 11:40 AM EDT Office Visit Family Practice [facility] [address] [place] [address] Johnnie Newby MD [address] [place] [address] 01/26/2024 10:00 AM EDT Imaging Radiology [facility] 1st [facility] [address] [place] [address] 02/01/2024 11:30 AM EDT Office Visit Radiation Oncology, [address] [place] [address] Shawna Johnson MD [facility] [place] [address] 02/07/2024 9:30 AM EDT Imaging Vascular Lab, [facility] 2nd [facility] [place] [address] [facility] [place] [address] 02/16/2024 10:30 AM EDT Office Visit Vascular Surgery, [facility] [address] [facility] [place] [address] Cyril Thompson MD [address] [facility] [place] [address] 03/28/2024 9:30 AM EST Office Visit Cardiology, [facility] [address] [facility] [place] [address] Deisy Aguirre CRNP [address] [place] [address] Scheduled Procedures Name Priority Associated Diagnoses Date/Ti me COLONOSCOPY FLEXIBLE PROXIMA L DIAGNOSTIC Recall History of colonic polyps Health Maintenance Due Date Last Done Comments DISCUSS TOBACCO CESSATION (REFER TO SMARTSET #7164) 05/01/2023 05/01/2022, 02/13/2022 COVID-19 Vaccine ( season) [...] Additional history exists CKD PHOS USE SMARTSET 14802 04/15/202403/20, 06/05/2022, 06/03/2021, Additional history exists Depression Monitoring 04/22/2024 04/22/2023 CKD HGB USE SMARTSET 46109 09/01/202409/01, 09/02/2023, 06/03/2023, Additional history exists Colonoscopy 01/14/2025 01/14/2023, 12/19, 03/05/2022, Additional history exists Pneumococcal Vaccine: 65+ Years Completed 11/07/2015, 04/06/2014 Alpha-1 Antitrypsin Completed 05/22/2019 Zoster Vaccines Completed 02/27/2020, 11/17, 11/30/2019, Additional history exists Influenza Vaccine (FLU shot) Completed 12/31/2022, 02/10/2022, 03/05/2021, Additional history exists RETIRED - COLONOSCOPY-ANNUAL AGES [...] this encounter Medical Devices Implanted Type Area Export Clerk Device Identifier Shelf Expiration Date Model / Serial / Lot Lens Intraoc 24.0 - [id number] - [id number] Implanted:Qty: 1 on 06/01/2017 by Nikhil Bolton MD at OR [facility] Left: Eye [employer] 07/17/2021 [id number] / [id number] / [id number] Lens Intraoc 24.0 - [id number] - [id number] Implanted:Qty: 1 on 06/08/2017 by Nikhil Bolton MD at OR [facility] Right: Eye [employer] 07/17/2021 [id number] / [id number] / [id number] documented as of this encounter Advance Directives Documents on File Type Date Recorded 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 Care Teams Chief Airline Radio Operator Relationship Specialty Start Date End Date Johnnie Newby MD [address] [place] [address] PCP - General Family Medicine 09/13/20 documented as of this encounter
--- OUTSIDE RECORDS SUMMARY | 2023-12-14 20:10 | External Medical Summary | Summary of Care ---
Author Name Unknown Organization [facility] Address [address] [place] [address] Phone [phone] Care Team Providers Care Shafting Worker Name Role Phone Johnnie Newby MD Primary Care Provider [phone] Reason for Visit * Reason Comments Follow Up Bilateral knee Encounter Details Date Type Department Care Team (Latest Contact Info) Description 10/27/2023 9:00 AM EDT Office Visit Orthopaedics [facility] [address] [place] [address] Zander Wilkins, DO 132 [facility] [place] [address] Primary osteoarthritis of both knees* Allergies Active Allergy Reactions Criticality Noted Date Comments Acetaminophen 05/06/2005 headaches documented as of this encounter (statuses as of 10/27/2023) Medications Medication Sig Dispensed Refills Start Date [...] Release 24 Hour (toPROL XL)Indications:SVT (supraventricular tachycardia) ([facility]),NSVT (nonsustained ventricular tachycardia) ([facility]) TAKE ONE TABLET BY MOUTH [...] for Pain, Severe. 90 Tablet 07/19/2023 Active Colchicine 0.6 MG Oral Tablet Take 2 tablets by mouth. One hour later, take 1 tablet by mouth. Take 1 tablet by mouth once daily after until symptoms resolve. 90 Tablet 07/21/2023 Active Additional Information Patient not taking.Reported on 09/16/2023 Atorvastatin Calcium 80 MG Oral Tablet (Lipitor) TAKE ONE TABLET BY MOUTH AT BEDTIME 90 Tablet 1 08/05/2023 5 Active Fluticasone-Salmeter ol 250-50 MCG/ACT Inhalation Aerosol Powder Breath Activated (Advair Diskus) Inhale 1 Puff by mouth in the morning and 1 Puff before bedtime. 60 Each 2 2023 4 Active Tiotropium [place] Monohydrate 18 MCG Inhalation Capsule (Spiriva HandiHaler) Inhale 1 Capsule by mouth in the morning. 30 Capsule 2 08/16/2023 4 Active Albuterol Sulfate HFA 108 (90 Base) MCG/ACT Inhalation Aerosol SolutionIndications: COPD, group D, by GOLD 2017 classification ([facility]) Inhale 2 Puffs by mouth [...] mouth every night 90 Tablet 08/24/2023 Active risperiDONE 0.5 MG Oral Tablet (RisperDAL) take 1 tablet by mouth twice daily 180 Tablet 08/24/2023 Active LORazepam 2 MG Oral Tablet (Ativan) Take 1 Tablet by mouth every 6 hours as needed. Active Isosorbide Mononitrate ER 60 MG Oral Tablet Extended Release 24 Hour (Imdur)Indications:C oronary artery disease involving [place] coronary artery without angina pectoris TAKE ONE TABLET BY MOUTH EVERY MORNING 100 Tablet 3 08/30/2023 5 Active Budesonide 0.25 MG/2ML Inhalation Suspension (Pulmicort) Inhale 0.25 mg via nebulizer 2 times a day as needed for Dyspnea or Wheezing. 160 mL 3 08/31/2023 4 Active Roflumilast 500 MCG Oral Tablet (Daliresp)Indication s:COPD, group D, by GOLD 2017 classification ([facility]) Take 1 Tablet by mouth in the morning. 30 Tablet 2 09/15/2023 4 Active Cephalexin 500 MG Oral CapsuleIndications:C ellulitis of finger of right hand Take 1 Capsule by mouth in the morning and 1 Capsule before bedtime. 14 Capsule 09/16/2023 Active Triamcinolone Acetonide 0.1 % External Cream (Aristocort)Indicati [...] before bedtime. 180 Tablet 3 10/13/2023 Active Hospital, Clinic, or Other Facility Administered Medication Ordered Dose Route Frequency Start Date End Date Status albuterol sulfate (PROVENTIL) (2.5 MG/3ML) 0.083% inhalation solution 2.5 mgIndications:COPD, severe ([facility]) 2.5 mg NEBULIZER Q4H PRN 07/08/2018 Active lidocaine 1% 1 mL - triamcinolone acetonide 40 mg/mL 1 mL inj 2 mLIndications:Primary osteoarthritis of both knees 2 mL IJ ONCE 10/27/2023 10/27/2023 Ended lidocaine 1% 1 mL - triamcinolone acetonide 40 mg/mL 1 mL inj 2 mLIndications:Primary osteoarthritis of both knees 2 mL IJ ONCE 10/27/2023 10/27/2023 Ended documented as of this encounter (statuses as of 10/27/2023) Active Problems Problem Noted Date Diagnosed Date [...] tis 01/05/2014 Coronary artery disease invo lving tat[place]k coronary artery of [place] heart without angina pectoris 11/27/2013 Tobacco abuse 11/27/2013 HTN, goal below 130/80 03/06/2009 Overview: Modified per HTN protocol #16. documented as of this encounter (statuses as of 10/27/2023) Resolved Problems Problem Noted Date Diagnosed Date [...] as of this encounter (statuses as of 10/27/2023) Immunizations Name Administration Dates Next Due COVID-19 mRNA, LNP-s, No Pre serve, 2-Dose Series (Rupture) 02/25/2023,02/10/2022,07/13/2020,06/17 Pneumococcal Conjugate Vacc, 13 Valent (Prevnar) [...] encounter Progress Notes * Zander Wilkins, - 10/27/2023 9:00 AM EDT Walter Wei Flore[place] [id number] Walter Plattstler is a 77 year old male who presents for follow up of bilateral knee pain to [facility]. Walter Don is here with his/her Last had Durolane injection 07/27/22, last IA steroid 07/28/23. Of note he was also seen in our urgent care x2 and treated for infectious prepatellar bursitis. TODAY: he would like injections, no signs or symptoms of infection. Past Medical History: Diagnosis Date Anemia of [...] Sig Dispense Refill DAILY MULTIVITAMIN PO TABS Take 1 Tablet by mouth daily. BUSPAR 15 MG PO TABS Take 1 Tablet by mouth daily as needed. clonazePAM (KLONOPIN) 0.5 MG Tablet Take 1 Tablet by mouth daily as needed. 0 ONETOUCH ULTRA BLUE STRP TEST ONCE DAILY 100 Strip 5 BiPAP every night at bedtime. Vitamin B-12 1000 MCG Oral Tablet (Cyanocobalamin) Take 1 Tablet by mouth in the morning. Metoprolol Succinate ER 25 MG Oral Tablet Extended Release 24 Hour (toPROL XL) TAKE ONE TABLET BY MOUTH EVERY DAY 90 Tablet 3 Vitron-C 65-125 MG Oral Tablet (Iron-Vitamin C 65-125 mg per tab) Take 1 Tablet by mouth in the morning. busPIRone HCl 10 MG Oral Tablet (Buspar) take 1-2 tabs (10-20mg) by mouth twice daily as needed foranxiety (Patient not taking: Reported on 09/16/2023) 180 Tablet 0 Nitroglycerin 0.4 MG Sublingual Tablet Sublingual (Nitrostat) Place 1 Tablet under the tongue every5 minutes as needed for Pain, Chest. up to 3 doses in 15 minutes 75 Tablet 3 FLUoxetine HCl 20 MG Oral Capsule (PROzac) Take 3 Capsules by mouth in the morning. 270 Capsule 3 risperiDONE 0.5 MG Oral Tablet (RisperDAL) Take one tablet by mouth every night at bedtime 90 Tablet 0 Gabapentin 300 MG Oral Capsule (Neurontin) Take 1 Capsule by mouth at bedtime. 90 Capsule 3 Full Kit Nebulizer Set Use with Nebulizer Medication EVERY FOUR HOURS as directed. Dx Code: J44.9 1 Each 3 Clopidogrel Bisulfate 75 MG Oral Tablet (pLAVix) Take 1 Tablet by mouth in the morning. 90 Tablet 2 metFORMIN HCl ER 500 MG Oral Tablet Extended Release 24 Hour (Glucophage XR) Take 2 Tablets by mouth in the morning. 180 Tablet 3 HYDROcodone-Acetaminophen 5-325 MG Oral Tablet Take 1 Tablet by mouth every 8 hours as needed for Pain, Severe. 90 Tablet 0 Colchicine 0.6 MG Oral Tablet Take 2 tablets by mouth. One hour later, take 1 tablet by mouth. Take1 tablet by mouth once daily after until symptoms resolve. (Patient not taking: Reported on 09/16/2023) 90 Tablet 0 Atorvastatin Calcium 80 MG Oral Tablet (Lipitor) TAKE ONE TABLET BY MOUTH AT BEDTIME 90 Tablet 1 Fluticasone-Salmeterol 250-50 MCG/ACT Inhalation Aerosol Powder Breath Activated (Advair Diskus) Inhale 1 Puff by mouth in the morning and 1 Puff before bedtime. 60 Each 2 Tiotropium [place] Monohydrate 18 MCG Inhalation Capsule (Spiriva HandiHaler) Inhale 1 Capsule by mouth in the morning. 30 Capsule 2 Albuterol Sulfate HFA 108 (90 Base) MCG/ACT Inhalation Aerosol Solution Inhale 2 Puffs by mouth every 6 hours as needed for Dyspnea or Wheezing. 18 g 5 busPIRone HCl 15 MG Oral Tablet (Buspar) take 1 tablet by mouth four times daily as needed for anxiety (Patient not taking: Reported on 09/16/2023) 360 Tablet 0 Mirtazapine 15 MG Oral Tablet (Remeron) take 1 tablet by mouth every night 90 Tablet 0 risperiDONE 0.5 MG Oral Tablet (RisperDAL) take 1 tablet by mouth twice daily 180 Tablet 0 LORazepam 2 MG Oral Tablet (Ativan) Take 1 Tablet by mouth every 6 hours as needed. Isosorbide Mononitrate ER 60 MG Oral Tablet Extended Release 24 Hour (Imdur) TAKE ONE TABLET BY MOUTH EVERY MORNING 100 Tablet 3 Budesonide 0.25 MG/2ML Inhalation Suspension (Pulmicort) Inhale 0.25 mg via nebulizer 2 times a dayas needed for Dyspnea or Wheezing. 160 mL 3 Roflumilast 500 MCG Oral Tablet (Daliresp) Take 1 Tablet by mouth in the morning. 30 Tablet 2 Cephalexin 500 MG Oral Capsule Take 1 Capsule by mouth in the morning and 1 Capsule before bedtime.14 Capsule 0 Triamcinolone Acetonide 0.1 % External Cream (Aristocort) Apply topically to affected area 2 times a day. Apply to right hand 15 g 1 Omeprazole 20 MG Oral Capsule Delayed Release (PriLOSEC) TAKE ONE CAPSULE BY MOUTH EVERY MORNING *NEED UPDATED LABS* 90 Capsule 2 Furosemide 40 MG Oral Tablet (Lasix) Take 1 Tablet by mouth in the morning. 100 Tablet 1 Fluticasone Propionate 50 MCG/ACT Nasal Suspension (Flonase) USE TWO SPRAYS IN EACH NOSTRIL IN THE MORNING 48 g 1 Apixaban 5 MG Oral Tablet (Eliquis) Take 1 Tablet by mouth in the morning and 1 Tablet before bedtime. 180 Tablet 3 Current Facility-Administered Medications Medication Dose [...] Physical Exam Gait and Station: slightly antalgic Skin: Bilateral anterior knees no sign of swelling, redness, warmth or other elements of infection. Knee exam, bilateral Effusion: negative on Bilateral Palpation: Moderate tenderness to palpation medial joint line Effusion: Negative bilaterally ROM: R - Flexion - 120 degrees, Extension - 0 degrees L - Flexion - 120 degrees, Extension -0 degrees R- Strength: Extension - 5/5 Flexion - 5/5 L - Strength: Extension - 5/5 Flexion - 5/5 Radiology : repeat not indicated Assessment and Plan: Follow up 3 months, please see procedure note Primary osteoarthritis of both knees (Primary) - INJECT MAJOR JX/BURSA W/O US GUIDE - lidocaine 1% 1 mL - triamcinolone acetonide 40 mg/mL 1 mL inj 2 mL - lidocaine 1% 1 mL - triamcinolone acetonide 40 mg/mL 1 mL inj 2 mL Zander Wilkins, DO [facility] Orthopaedics [address] [address] This chart was completed in part utilizing [employer] Speech Voice Recognition Software. Grammatical errors, random word insertions, pronoun errors, and incomplete sentences are an occasional consequence of this system due to software limitations, ambient noise, and hardware issues. Any formal questions or concerns about the content, text, or information contained within the body of this dictation should be directly addressed to the provider for clarification. Procedure note (knee injection), bilateral : Time out: Prior to injection, a [...] Notes * Pat Lyons MED ASSIST - 10/27/2023 8:54 AM EDT Follow up Patient Follow up: Knee Side: Bilateral Date of last visit: Improvement since last office visit: 0 percent. Prior Treatment: Injection Here for Test Results: No Goals for this appointment: inj documented in this encounter Plan of Treatment Upcoming Encounters Date Type Department Care Team (Late st Contact Info) Description 12/01/2023 11:40 AM EDT Office Visit Podiatry [facility] 132 [facility] [place] [address] Bettye Herrmann DPM [address] [place] [address] 01/18/2024 12:30 PM EDT Office Visit Sleep Disorders Ctr [facility] [address] [facility] [place] [phone] Hui Bishop CRNP 132 [facility] [place] [address] 01/19/2024 11:40 AM EDT Office Visit Family Practice [facility] [address] [facility] [place] [address] Johnnie Newby MD 132 [facility] [place] [address] 01/26/2024 10:00 AM EDT Imaging Radiology [facility] [address] [facility] [place] [address] 01/31/2024 10:00 AM EDT Office Visit Orthopaedics [facility] 132 [facility] [place] [address] Zander Wilkins DO 132 [facility] [place] [address] 02/01/2024 11:30 AM EDT Office Visit Radiation Oncology, [address] [place] [address] Shawna Johnson MD [address] [place] [address] [place] [address] 02/07/2024 9:30 AM EDT Imaging Vascular Lab, [facility] 2nd [facility] [place] [address] [facility] [place] [address] 02/16/2024 10:30 AM EDT Office Visit Vascular Surgery, [facility] 132 [facility] [place] [address] Cyril Thompson MD [address] [place] [address] 03/28/2024 9:30 AM EST Office Visit Cardiology, [facility] 132 [facility] [place] [address] Deisy Aguirre CRNP 132 [facility] [place] [address] Scheduled Orders Name Type Priority Associated Diagnoses Orde r Schedule INJECT MAJOR JX/BURSA W/O US GUIDE Procedures Routine Primary osteoarthritis of both knees Ordered: 10/27/2023 Scheduled Procedures Name Priority Associated Diagnoses Date/Ti me COLONOSCOPY FLEXIBLE PROXIMA L DIAGNOSTIC Recall History of colonic polyps Health Maintenance Due Date Last Done Comments DISCUSS TOBACCO CESSATION (REFER TO SMARTSET #3291) [...] Additional history exists CKD PHOS USE SMARTSET 95342 04/15/202403/20, 06/05/2022, 06/03/2021, Additional history exists Depression Monitoring 04/22/2024 04/22/2023 CKD HGB USE SMARTSET 46470 09/01/202409/01, 09/02/2023, 06/03/2023, Additional history exists Colonoscopy [...] this encounter Medical Devices Implanted Type Area Family Practice Physician Assistant Device Identifier Shelf Expiration Date Model / Serial / Lot Lens Intraoc 24.0 - [id number] - [id number] Implanted:Qty: 1 on 06/01/2017 by Nikhil Bolton MD at OR [facility] Left: Eye [employer]OM[employer] 07/17/2021 [id number] / [id number] / [id number] Lens Intraoc 24.0 - [id number] - [id number] Implanted:Qty: 1 on 06/08/2017 by Nikhil Bolton MD at OR [facility] Right: Eye [employer]CH [employer] LOMB 07/17/2021 [id number] / [id number] / [id number] documented as of this encounter Visit Diagnoses Diagnosis Primary osteoarthritis of both knees- Primary Primary localized osteoarthrosis, lower leg documented in this encounter Administered Medications Inactive Administered Medications - up to 3 most recent administrations Medication Order MAR Action Action Date Dose Rate Site lidocaine 1% 1 mL - triamcinolone acetonide 40 mg/mL 1 mL inj 2 mL 2 mL, Injection, ONCE, On Wed10/27/23 at 0930, For 1 dose, Lidocaine 1% 1mL Triamcinolone Acetonide 40 mg/mL 1 mL (Final concentration = 20 mg/mL) REFRIGERATE and SHAKE WELL Given 10/27/2023 9:08 AM EDT 2 mL Knee Right lidocaine 1% 1 mL - triamcinolone acetonide 40 mg/mL 1 mL inj 2 mL 2 mL, Injection, ONCE, On Wed10/27/23 at 0930, For 1 dose, Lidocaine 1% 1mL Triamcinolone Acetonide 40 mg/mL 1 mL (Final concentration = 20 mg/mL) REFRIGERATE and SHAKE WELL Given 10/27/2023 9:08 AM EDT 2 mL Knee Left documented in this encounter Advance Directives Documents on File Type Date Recorded Patient Territory Account Representative Guillermo ware Advance Directives and Yu Watkins [...] and were consensually agreed upon. Care Teams Shafting Worker Relationship Specialty Start Date End Date Johnnie Newby MD [address] [place] [address] PCP - General Family Medicine 09/13/20 documented as of this encounter
--- OUTSIDE RECORDS SUMMARY | 2023-12-14 20:10 | External Medical Summary | Summary of Care ---
Author Name Unknown Organization [facility] Address [address] [place] [address] Phone [phone] Care Team Providers Care Forest Management Teacher Name Role Phone Johnnie Newby MD Primary Care Provider [phone] Encounter Details Date Type Department Care Team (Late st Contact Info) Description 11/09/2023 Population Health External Data Unspecified Department Allergies Active Allergy Reactions Criticality Noted Date Comments Acetaminophen 05/06/2005 headaches documented as of this encounter (statuses as of 11/12/2023) Medications Medication Sig Dispensed Refills Start Date [...] than 7.0% ([facility]) TEST ONCE DAILY 100 Strip 5 [...] Puff before bedtime. 60 Each 2 2023 Active Additional Information Patient not taking.Reported on 11/09/2023 Tiotropium [place] Monohydrate 18 MCG Inhalation Capsule (Spiriva HandiHaler) Inhale 1 Capsule by mouth in the morning. 30 Capsule 2 08/16/2023 4 Active Additional Information Patient not taking.Reported on 11/09/2023 Albuterol Sulfate HFA 108 (90 Base) MCG/ACT Inhalation Aerosol SolutionIndications: COPD, group D, by GOLD 2017 classification ([facility]) Inhale 2 Puffs by mouth every 6 [...] 2017 classification ([facility]) Take 1 Tablet by mouth in the [...] *NEED UPDATED LABS* 90 Capsule 2 09/17/2023 Active Furosemide 40 MG Oral Tablet (Lasix)Indications:H [...] mouth every 6 hours as needed. Active Hospital, Clinic, or Other Facility Administered Medication Ordered Dose Route Frequency Start Date End Date Status albuterol sulfate (PROVENTIL) (2.5 MG/3ML) 0.083% inhalation solution 2.5 mgIndications:COPD, severe ([facility]) 2.5 mg NEBULIZER Q4H PRN 07/08/2018 Active documented as of this encounter (statuses as of 11/12/2023) Active Problems Problem Noted Date Diagnosed Date [...] as of this encounter (statuses as of 11/12/2023) Resolved Problems Problem Noted Date Diagnosed Date [...] as of this encounter (statuses as of 11/12/2023) Immunizations Name Administration Dates Next Due COVID-19 mRNA, LNP-s, No Pre serve, 2-Dose Series ([facility]) 02/25/2023,02/10/2022,07/13/2020,06/17 Pneumococcal Conjugate Vacc, 13 Valent [...] Care Team (Late st Contact Info) Description 11/23/2023 1:40 PM EDT Office Visit Pulmonary Medicine, [facility] [address] [place] [address] Hi Lopez MD [address] [place] [address] 12/01/2023 11:40 AM EDT Office Visit Podiatry [facility] [address] [place] [address] Bettye Herrmann, DPM [address] [facility] [place] [address] 01/19/2024 11:40 AM EDT Office Visit Family Practice [facility] [place] [address] Johnnie Newby MD [address] [place] [address] 01/26/2024 10:00 AM EDT Imaging Radiology [facility] 132 [facility] [place] [address] 01/31/2024 10:00 AM EDT Office Visit Orthopaedics [facility] 132 [facility] [place] [address] Zander Wilkins, 132 [facility] [place] [address] 02/01/2024 11:30 AM EDT Office Visit Radiation Oncology, [address] [place] [address] Shawna Johnson MD [address] [place] [address] [place] [address] 02/07/2024 9:30 AM EDT Imaging Vascular Lab, [facility] 2[facility], [place] 132 [facility] [place] [address] 02/16/2024 10:30 AM EDT Office Visit Vascular Surgery, [facility] 132 [facility] [place] [address] [facility]il Thompson [facility] [address] 03/28/2024 9:30 AM EST Office Visit Cardiology, [facility] 132 [facility] [place] [address] Deisy Aguirre CRNP [address] [place] [address] 11/08/2024 10:30 AM EDT Office Visit Sleep Disorders Ctr [facility] [address] [place] [phone] Hui Bishop CRNP [address] [place] [address] Scheduled Procedures Name Priority Associated Diagnoses Date/Ti me COLONOSCOPY FLEXIBLE PROXIMA L DIAGNOSTIC Recall History of colonic polyps Health Maintenance Due Date Last Done Comments DISCUSS TOBACCO CESSATION (REFER TO SMARTSET #7281) 05/01/2023 05/01/2022, 02/13/2022 COVID-19 Vaccine ( season) 2023 03/03/2023, 02/25/2023, 02/10/2022, Additional history exists Diabetic Eye Exam 07/09/2023 07/08/2022, , 06/10/2021, Additional history exists Diabetic Foot Exam 09/10/2023 09/09/2022, 1 , 11/12/2017, Additional history exists HbA1c 10/16/2023 04/16/2023, 12/19, 06/05/2022, Additional history exists *CXR OR CT FOR COPD EVER 10/31/2023 Influenza Vaccine (FLU shot) (#1) 2023 12/31/2022, 02/10/2022, 03/05/2021, Additional history exists DTaP,Tdap,and Td Vaccines (2 - Td or Tdap) 01/06/2024 01/05/2014 O2 ASSESSMENT COMPLETED IN PAST YEAR FOR COPD 01/15/2024 01/14/2023 Albumin/Creatinine Ratio 02/05/2024 023, 01/15/2023, 06/04/2021, Additional history exists GFR 03/04/2024 09/02/2023, 03/21, 04/17/2023, Additional history exists CKD PHOS USE SMARTSET 10709 04/15/202403/20, 06/05/2022, 06/03/2021, Additional history exists Depression Monitoring 04/22/2024 04/22/2023 CKD HGB USE SMARTSET 12740 09/01/202409/01, 09/02/2023, 06/03/2023, Additional history exists Colonoscopy [...] this encounter Medical Devices Implanted Type Area Production Checker Device Identifier Shelf Expiration Date Model / Serial / Lot Lens Intraoc 24.0 - [id number] - [id number] Implanted:Qty: 1 on 06/01/2017 by Nikhil Bolton MD at OR [facility] Left: Eye [employer] LOMB 07/17/2021 [id number] / [id number] / [id number] Lens Intraoc 24.0 - [id number] - [id number] Implanted:Qty: 1 on 06/08/2017 by Nikhil Bolton MD at OR [facility] Right: Eye BAUSCH [employer] LOMB 07/17/2021 [id number] / [id number] / [id number] documented as of this encounter Advance Directives Documents on File Type Date Recorded Patient Aerophysicist Guillermo ware Advance Directives and Yu Watkins [...] and were consensually agreed upon. Care Teams Forest Management Teacher Relationship Specialty Start Date End Date Johnnie Newby MD [address] [place] [address] PCP - General Family Medicine 09/13/20 documented as of this encounter
--- OUTSIDE RECORDS SUMMARY | 2023-12-14 20:10 | External Medical Summary | Summary of Care ---
Author Name Unknown Organization [facility] Address [address] [place] [address] Phone [phone] Care Team Providers Care Construction Laborer Name Role Phone Johnnie Newby MD Primary Care Provider [phone] Reason for Visit * Reason Comments Follow Up Here return sleep. O SA. BiPAP. No complaints. Per patient he is on hospice care. Encounter Details Date Type Department Care Team (Late st Contact Info) Description 11/09/2023 1:00 PM EDT Office Visit Sleep Disorders Ctr [facility] 132 [facility] [place] [address] Hui Bishop CRNP 132 [facility] [place] [address] YISSEL treated with BiPAP* Allergies Active Allergy Reactions Criticality Noted Date Comments Acetaminophen 05/06/2005 headaches documented as of this encounter (statuses as of 11/09/2023) Medications Medication Sig Dispensed Refills Start Date [...] (supraventricular tachycardia) ([facility]),NSVT (nonsustained ventricular tachycardia) ([facility]) TAKE ONE TABLET BY MOUTH EVERY [...] Information Patient not taking.Reported on 11/09/2023 Tiotropium Toivola Monohydrate 18 MCG Inhalation Capsule (Spiriva HandiHaler) [...] 24 Hour (Imdur)Indications:C oronary artery disease involving [place] coronary artery without angina pectoris TAKE [...] as of this encounter (statuses as of 11/09/2023) Active Problems Problem Noted Date Diagnosed Date [...] tis 01/05/2014 Coronary artery disease invo lving [place] coronary artery of [place] heart without angina pectoris 11/27/2013 Tobacco abuse 11/27/2013 HTN, goal below 130/80 03/06/2009 Overview: Modified per HTN protocol #16. documented as of this encounter (statuses as of 11/09/2023) Resolved Problems Problem Noted Date Diagnosed Date [...] as of this encounter (statuses as of 11/09/2023) Immunizations Name Administration Dates Next Due COVID-19 mRNA, LNP-s, No Pre serve, 2-Dose Series (Jooix) 02/25/2023,02/10/2022,07/13/2020,06/17 Pneumococcal Conjugate Vacc, 13 Valent (Prevnar) [...] Asked; Counseling Given: Not Answered Comments:started age 7. 1 1/2- 2 ppd. [...] Sign Reading Time Taken Comments Blood Pressure 98/50 11/09/2023 12:59 PM EDT Pulse 64 11/09/2023 12:59 PM EDT Temperature 36.9 C (98.5 F) 11/09/2023 12:59 PM E DT Respiratory Rate 16 11/09/2023 12:59 PM EDT Oxygen Saturation 97% 11/09/2023 12:59 PM EDT Inhaled Oxygen Concentration - - Weight 91.6 kg (202 lb) 11/09/2023 12:59 PM EDT Height 177.8 cm (5' 10") 11/09/2023 12:59 PM EDT Body Mass Index 28.98 11/09/2023 12:59 PM EDT documented in this encounter Functional Status [...] as of this encounter Progress Notes * Hui Bishop CRNP - 11/09/2023 1:10 PM EDT [facility] Walter Don is a 78 year old male seen today for follow-up moderate YISSEL treated on aBPAP. -08/28/2007 PSG: AHI 17, mild desaturations -04/30/2014 Titration (wt 224): BIPAP 12/21 x169 mins TST, 60 mins supine, AHI 2.8, SpO2 <89% 0.1 mins -Noct ox BIPAP/RA 05/07/2021: test time 6:51 hrs, SpO2 <89% 27 sec, dung 88%; correlated BIPAP data reviewed with normal AHI and some time in large leak Interim History: BPAP used nightly, during all periods of sleep opportunity, noting ongoing benefit with use. Total sleep time is 8-9 hours. Sleeping sound with exception of when the mask headgear shifts up 2-3x/night. Will try to nap 3-4x/week with BPAP, may not fall asleep. Denies drowsy driving. Compliance Data: Data ends 04/20/2022 Equipment: DME Provider: [employer] Device: [id number] / [employer] autoBPAP (issued 11/2020) Settings: min EPAP 8, max IPAP 14, PS 2-6 [id number] Interface Type: DreamWear METALSMITH Humidifier: not used Cleaning: denies [place] Sleepiness Scale Question 11/09/2023 12:57 PM EDT - Filed by Nichelle Zamora LPN What is the chance you will doze off in the following situation? Sitting and reading No chance of dozing Watching TV No chance of dozing Sitting inactive in a public place, such as a theater or meeting No chance of dozing As a passenger in a car for an hour without a break No chance of dozing Lying down to rest in the afternoon when circumstances permit No chance of dozing When sitting and talking to someone No chance of dozing When sitting quietly after lunch without alcohol No chance of dozing In a car, while stopped for a few minutes in traffic No chance of dozing Score (range: 0 - 24) 0 Review of Systems Respiratory: Positive for shortness of breath. Cardiovascular: Negative for chest pain. Musculoskeletal: Positive for arthralgias and back pain. Neurological: Negative for headaches. Problem List: Patient Active Problem List Diagnosis HTN, goal below 130/80 Coronary artery disease involving [place] coronary artery of [place] heart without angina pectoris Tobacco abuse PTSD (post-traumatic stress disorder) Gastroesophageal reflux disease without esophagitis Type 2 diabetes mellitus with hemoglobin A1c goal of less than 8.0% ([facility]) YISSEL treated with BiPAP Peripheral arterial disease ([facility]) Dyslipidemia COPD, group D, by GOLD 2017 classification ([facility]) Carotid stenosis, non-symptomatic NSVT (nonsustained ventricular tachycardia) ([facility]) Aortic valve stenosis AAA (abdominal aortic aneurysm) ([facility]) Chronic kidney disease, stage 3a ([facility]) Malignant neoplasm of right upper lobe of lung (HCC) Depression with anxiety History of cardioembolic cerebrovascular accident (CVA) Overweight (BMI 25.0-29.9) Gouty arthropathy Diabetic peripheral neuropathy (HCC) Diverticulosis of large intestine without hemorrhage Anemia of chronic disease Closed nondisplaced fracture of fifth metatarsal bone of right foot with routine healing Current Medications: Current Outpatient Medications Medication Sig Dispense Refill Ipratropium-Albuterol 0.5-2.5 (3) MG/3ML Inhalation Solution (Duoneb) Inhale 3 mL by mouth every 6 hours as needed. Apixaban 5 MG Oral Tablet (Eliquis) Take 1 Tablet by mouth in the morning and 1 Tablet before bedtime. 180 Tablet 3 Fluticasone Propionate 50 MCG/ACT Nasal Suspension (Flonase) USE TWO SPRAYS IN EACH NOSTRIL IN THE MORNING 48 g 1 Furosemide 40 MG Oral Tablet (Lasix) Take 1 Tablet by mouth in the morning. 100 Tablet 1 Omeprazole 20 MG Oral Capsule Delayed Release (PriLOSEC) TAKE ONE CAPSULE BY MOUTH EVERY MORNING *NEED UPDATED LABS* 90 Capsule 2 Triamcinolone Acetonide 0.1 % External Cream (Aristocort) Apply topically to affected area 2 times a day. Apply to right hand 15 g 1 Roflumilast 500 MCG Oral Tablet (Daliresp) Take 1 Tablet by mouth in the morning. 30 Tablet 2 Budesonide 0.25 MG/2ML Inhalation Suspension (Pulmicort) Inhale 0.25 mg via nebulizer 2 times a dayas needed for Dyspnea or Wheezing. 160 mL 3 Isosorbide Mononitrate ER 60 MG Oral Tablet Extended Release 24 Hour (Imdur) TAKE ONE TABLET BY MOUTH EVERY MORNING 100 Tablet 3 LORazepam 2 MG Oral Tablet (Ativan) Take 1 Tablet by mouth every 6 hours as needed. risperiDONE 0.5 MG Oral Tablet (RisperDAL) take 1 tablet by mouth twice daily 180 Tablet 0 Albuterol Sulfate HFA 108 (90 Base) MCG/ACT Inhalation Aerosol Solution Inhale 2 Puffs by mouth every 6 hours as needed for Dyspnea or Wheezing. 18 g 5 Atorvastatin Calcium 80 MG Oral Tablet (Lipitor) TAKE ONE TABLET BY MOUTH AT BEDTIME 90 Tablet 1 HYDROcodone-Acetaminophen 5-325 MG Oral Tablet Take 1 Tablet by mouth every 8 hours as needed for Pain, Severe. 90 Tablet 0 metFORMIN HCl ER 500 MG Oral Tablet Extended Release 24 Hour (Glucophage XR) Take 2 Tablets by mouth in the morning. 180 Tablet 3 Clopidogrel Bisulfate 75 MG Oral Tablet (pLAVix) Take 1 Tablet by mouth in the morning. 90 Tablet 2 Full Kit Nebulizer Set Use with Nebulizer Medication EVERY FOUR HOURS as directed. Dx Code: J44.9 1 Each 3 Gabapentin 300 MG Oral Capsule (Neurontin) Take 1 Capsule by mouth at bedtime. 90 Capsule 3 risperiDONE 0.5 MG Oral Tablet (RisperDAL) Take one tablet by mouth every night at bedtime 90 Tablet 0 FLUoxetine HCl 20 MG Oral Capsule (PROzac) Take 3 Capsules by mouth in the morning. 270 Capsule 3 Nitroglycerin 0.4 MG Sublingual Tablet Sublingual (Nitrostat) Place 1 Tablet under the tongue every5 minutes as needed for Pain, Chest. up to 3 doses in 15 minutes 75 Tablet 3 Vitron-C 65-125 MG Oral Tablet (Iron-Vitamin C 65-125 mg per tab) Take 1 Tablet by mouth in the morning. Metoprolol Succinate ER 25 MG Oral Tablet Extended Release 24 Hour (toPROL XL) TAKE ONE TABLET BY MOUTH EVERY DAY 90 Tablet 3 Vitamin B-12 1000 MCG Oral Tablet (Cyanocobalamin) Take 1 Tablet by mouth in the morning. BiPAP every night at bedtime. ONETOUCH ULTRA BLUE STRP TEST ONCE DAILY 100 Strip 5 clonazePAM (KLONOPIN) 0.5 MG Tablet Take 1 Tablet by mouth daily as needed. 0 BUSPAR 15 MG PO TABS Take 1 Tablet by mouth daily as needed. DAILY MULTIVITAMIN PO TABS Take 1 Tablet by mouth daily. Cephalexin 500 MG Oral Capsule Take 1 Capsule by mouth in the morning and 1 Capsule before bedtime.(Patient not taking: Reported on 11/09/2023) 14 Capsule 0 busPIRone HCl 15 MG Oral Tablet (Buspar) take 1 tablet by mouth four times daily as needed for anxiety (Patient not taking: Reported on 09/16/2023) 360 Tablet 0 Mirtazapine 15 MG Oral Tablet (Remeron) take 1 tablet by mouth every night 90 Tablet 0 Tiotropium Toivola Monohydrate 18 MCG Inhalation Capsule (Spiriva HandiHaler) Inhale 1 Capsule by mouth in the morning. (Patient not taking: Reported on 11/09/2023) 30 Capsule 2 Fluticasone-Salmeterol 250-50 MCG/ACT Inhalation Aerosol Powder Breath Activated (Advair Diskus) Inhale 1 Puff by mouth in the morning and 1 Puff before bedtime. (Patient not taking: Reported on 11/09/2023) 60 Each 2 Colchicine 0.6 MG Oral Tablet Take 2 tablets by mouth. One hour later, take 1 tablet by mouth. Take1 tablet by mouth once daily after until symptoms resolve. (Patient not taking: Reported on 09/16/2023) 90 Tablet 0 busPIRone HCl 10 MG Oral Tablet (Buspar) take 1-2 tabs (10-20mg) by mouth twice daily as needed foranxiety (Patient not taking: Reported on 09/16/2023) 180 Tablet 0 Current Facility-Administered Medications Medication Dose Route Frequency Provider Last Rate Last Admin albuterol sulfate (PROVENTIL) (2.5 MG/3ML) 0.083% inhalation solution 2.5 mg 2.5 mg Nebulizer Q4H PRN Junaid Pyle MD 2.5 mg at 07/26/18 1521 Physical Exam: BP 98/50 | Pulse 64 | Temp 36.9 C (98.5 F) (Tympanic) | Resp 16 | Ht 1.778 m (5' 10") | Wt 91.6kg (202 lb) | SpO2 97% | BMI 28.98 kg/m | BSA 2.13 m Constitutional: Alert, oriented and in no acute distress Skin: No abnormal mask markings on face Cardio: Regular rate and rhythm with ectopy, + murmur Chest: Normal respiratory effort at rest, equal breath sounds, clear to auscultation Neuro: Fluent speech Psych: Appropriate mood and affect. Assessment & Plan: Moderate obstructive sleep apnea based on AHI criteria associated with hypoxemia diagnosed 2007 -reports compliance and benefit with auto BPAP therapy -hypoxemia resolved with BPAP per overnight oximetry in 2021 -requesting change in DME supplier with [facility] as preference -download requested, aware to bring BPAP to future appointments -change to DreamWisp nasal mask for more secure headgear option -continue use of BPAP to include all periods of sleep opportunity -encouraged routine cleaning and change of supplies as needed -continue to avoid engaging in activities that require full alertness when feeling sleepy or tired Follow-up in 12 months [facility]STOP[facility] I spent a total of 30-39 minutes (exact time 38 mins) on the date of service in preparation, delivery, and documentation of the care provided to Walter Don excluding any time spent in the performance of separately billed services. documented in this encounter Nursing Notes * Nichelle Zamora LPN - 11/09/2023 1:01 PM EDT Chief Complaint Patient presents with Follow Up Here return sleep. YISSEL. BiPAP. No complaints. Per patient he is on hospice care. [place] Sleepiness Scale Question 11/09/2023 12:57 PM EDT - Filed by Nichelle Zamora LPN What is the chance you will doze off in the following situation? Sitting and reading No chance of dozing Watching TV No chance of dozing Sitting inactive in a public place, such as a theater or meeting No chance of dozing As a passenger in a car for an hour without a break No chance of dozing Lying down to rest in the afternoon when circumstances permit No chance of dozing When sitting and talking to someone No chance of dozing When sitting quietly after lunch without alcohol No chance of dozing In a car, while stopped for a few minutes in traffic No chance of dozing Score (range: 0 - 24) 0 documented in this encounter Plan of Treatment Upcoming Encounters Date Type Department Care Team (Late st Contact Info) Description 11/23/2023 1:40 PM EDT Office Visit Pulmonary Medicine, [facility] 132 [facility] [place] [address] Hi Lopez [facility] [address] [facility] [address] 12/01/2023 11:40 AM EDT Office Visit Podiatry [facility] 132 [facility] [place] [address] Bettye Herrmann, SAMM [address] [place], [place] [address] [address] 01/19/2024 11:40 AM EDT Office Visit Family Practice [facility] [address] [place] [address] Johnnie Newby MD 132 [facility] [place] [address] 01/26/2024 10:00 AM EDT Imaging Radiology [facility] 1st Floor, [place] [address] [place] [address] 01/31/2024 10:00 AM EDT Office Visit Orthopaedics [facility] 132 [facility] [place] [address] Zander Wilkins, [address] [place] [address] 02/01/2024 11:30 AM EDT Office Visit Radiation Oncology, [address] [place] [address] Shawna Johnson MD [address] [place] [address] [place] [address] 02/07/2024 9:30 AM EDT Imaging Vascular Lab, [facility] 2nd Floor, [place] 132 [facility] [place] [address] 02/16/2024 10:30 AM EDT Office Visit Vascular Surgery, [facility] [address] [facility] [place] [address] Cyril Thompson MD [address] [place] [address] 03/28/2024 9:30 AM EST Office Visit Cardiology, [facility] 132 [facility] [place] [address] Deisy Aguirre CRNP [facility] [place] [address] 11/08/2024 10:30 AM EDT Office Visit Sleep Disorders [facility] 132 [facility] [place] [id number] Hui Bishop CRNP [address] [place] [address] Scheduled Procedures Name Priority Associated Diagnoses Date/Ti [...] Additional history exists CKD PHOS USE SMARTSET 80885 04/15/202403/20, 06/05/2022, 06/03/2021, Additional history exists Depression Monitoring 04/22/2024 04/22/2023 CKD HGB USE SMARTSET 84927 09/01/202409/01, 09/02/2023, 06/03/2023, Additional history exists Colonoscopy [...] this encounter Medical Devices Implanted Type Area Channel Program Manager Device Identifier Shelf Expiration Date Model / Serial / Lot Lens Intraoc 24.0 - [id number] - [id number] Implanted:Qty: 1 on 06/01/2017 by Nikhil Bolton MD at OR [facility] Left: Eye [employer] 07/17/2021 [id number] / [id number] / [id number] Lens Intraoc 24.0 - [id number] - [id number] Implanted:Qty: 1 on 06/08/2017 by Nikhil Bolton MD at OR [facility] Right: Eye BAUSCH [employer] LOMB 07/17/2021 [id number] / [id number] / [id number] documented as of this encounter Visit Diagnoses Diagnosis YISSEL treated with BiPAP- Primary documented in this encounter Advance Directives Documents on File Type Date Recorded Patient Pulp Press Tender Expl 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 Care Teams Construction Laborer Relationship Specialty Start Date End Date Johnnie Newby MD 132 [place] [address] PCP - General Family Medicine 09/13/20 documented as of this encounter
--- OUTSIDE RECORDS SUMMARY | 2023-12-14 20:10 | External Medical Summary | Summary of Care ---
Author Name Unknown Organization [facility] Address [address] [place] [address] Phone [phone] Care Team Providers Care Zigzag Stitcher Name Role Phone Johnnie Newby MD Primary Care Provider [phone] Reason for Visit * Reason Comments Follow Up Bilateral knee Encounter Details Date Type Department Care Team (Latest Contact Info) Description 10/27/2023 9:00 AM EDT Office Visit Orthopaedics [facility] [address] Zander Wilkins, DO 132 [place] [address] Primary osteoarthritis of both knees* Allergies Active [...] 60 Each 2 2023 4 Active Tiotropium Pattison Monohydrate 18 MCG Inhalation Capsule (Spiriva HandiHaler) Inhale 1 Capsule by mouth in the morning. 30 Capsule 2 08/16/2023 4 Active Albuterol Sulfate HFA 108 (90 Base) MCG/ACT Inhalation Aerosol SolutionIndications: COPD, group D, by GOLD 2017 classification ([facility]) Inhale 2 Puffs by mouth [...] 24 Hour (Imdur)Indications:C oronary artery disease involving sun'aq coronary artery without angina pectoris TAKE ONE [...] MG/3ML) 0.083% inhalation solution 2.5 mgIndications:COPD, severe ([facility]) 2.5 mg NEBULIZER Q4H PRN [...] tis 01/05/2014 Coronary artery disease invo lving sun'aq coronary artery of sun'aq heart without angina pectoris 11/27/2013 Tobacco abuse [...] mRNA, LNP-s, No Pre serve, 2-Dose Series (Rapt) 02/25/2023,02/10/2022,07/13/2020,06/17 Pneumococcal Conjugate Vacc, 13 Valent (Prevnar) [...] 10/27/2023 9:00 AM EDT Walter Wei [place] [id number] Walter Plattstler is a 77 year old male who presents for follow up of bilateral knee pain to [facility]. Walter Don is here [...] Puff before bedtime. 60 Each 2 Tiotropium Pattison Monohydrate 18 MCG Inhalation Capsule (Spiriva HandiHaler) [...] Wilkins, DO Primary Care Sports Medicine Orthopaedics [address] [address] This chart was completed in part utilizing [place] Speech Voice Recognition Software. Grammatical errors, random [...] 12/01/2023 11:40 AM EDT Office Visit Podiatry [facility] 132 [facility] [place] [address] Bettye Herrmann DPM [address] [place] [address] 01/18/2024 12:30 PM EDT Office Visit Sleep Disorders Ctr [facility] 132 [facility] [place] [phone] Hui Bishop CRNP 132 [facility] [place] [address] 01/19/2024 11:40 AM EDT Office Visit Family Practice [facility] 132 [facility] [place] [address] Johnnie Newby MD 132 [facility] [place] [address] 01/26/2024 10:00 AM EDT Imaging Radiology [facility]st [facility] 132 [facility] [place] [address] 01/31/2024 10:00 AM EDT Office Visit Orthopaedics [facility] 132 [facility] [place] [address] Zander Wilkins DO 132 [facility] [place] [address] 02/01/2024 11:30 AM EDT Office Visit Radiation Oncology, [address] [place] [address] Shawna Johnson MD [address] [place] [address] [place] [address] 02/07/2024 9:30 AM EDT Imaging Vascular Lab, [facility] 2nd [facility], Deputy 132 [facility] [place] [address] 02/16/2024 10:30 AM EDT Office Visit Vascular Surgery, [facility] 132 [facility] [place] [address] Cyril Thompson MD [address] [place] [address] 03/28/2024 9:30 AM EST Office Visit Cardiology, [facility] 132 [facility] [place] [address] Deisy Aguirre CRNP 132 [facility] [place] [address] Scheduled Orders Name Type Priority Associated Diagnoses [...] Additional history exists CKD PHOS USE SMARTSET 76189 04/15/202403/20, 06/05/2022, 06/03/2021, Additional history exists Depression Monitoring 04/22/2024 04/22/2023 CKD HGB USE SMARTSET 05205 09/01/202409/01, 09/02/2023, 06/03/2023, Additional history exists Colonoscopy [...] this encounter Medical Devices Implanted Type Area Hospitality Associate Device Identifier Shelf Expiration Date Model / Serial / Lot Lens Intraoc 24.0 - [id number] - [id number] Implanted:Qty: 1 on 06/01/2017 by Nikhil Bolton MD at OR [facility] Left: Eye [employer]OMB 07/17/2021 [id number] / [id number] / [id number] Lens Intraoc 24.0 - [id number] - [id number] Implanted:Qty: 1 on 06/08/2017 by Nikhil Bolton MD at OR [facility] Right: Eye [employer]OMB 07/17/2021 [id number] / [id number] / [id number] documented as of this encounter Visit Diagnoses [...] on File Type Date Recorded Patient Supervisor Show Operations Guillermo ware Advance Directives and Yu Watkins [...] and were consensually agreed upon. Care Teams Zigzag Stitcher Relationship Specialty Start Date End Date Johnnie Newby MD [address] [place] [address] PCP - General Family Medicine 09/13/20 documented as of this encounter
--- OUTSIDE RECORDS SUMMARY | 2023-12-14 20:10 | External Medical Summary | Summary of Care ---
Author Name Unknown Organization [facility] Address [address] [place] [address] Phone [phone] Care Team Providers Care Steam And Power Supervisor Name Role Phone Johnnie Newby MD Primary Care Provider [phone] [phone] Encounter Details Date Type Department Care Team (Late st Contact Info) Description 11/10/2023 Telephone Pulmonary Medicine, [facility] 132 [facility] [place] [address] Hui Bishop CRNP 132 [facility] [place] [address] Allergies Active Allergy Reactions Criticality Noted Date Comments Acetaminophen 05/06/2005 headaches documented as of this encounter (statuses as of 11/10/2023) Medications Medication Sig Dispensed Refills Start Date [...] Information Patient not taking.Reported on 11/09/2023 Tiotropium [place] Monohydrate 18 MCG Inhalation Capsule (Spiriva HandiHaler) [...] 24 Hour (Imdur)Indications:C oronary artery disease involving circle coronary artery without angina pectoris TAKE ONE [...] as of this encounter (statuses as of 11/10/2023) Active Problems Problem Noted Date Diagnosed Date [...] tis 01/05/2014 Coronary artery disease invo lving circle coronary artery of circle heart without angina pectoris 11/27/2013 Tobacco abuse 11/27/2013 HTN, goal below 130/80 03/06/2009 Overview: Modified per HTN protocol #16. documented as of this encounter (statuses as of 11/10/2023) Resolved Problems Problem Noted Date Diagnosed Date [...] as of this encounter (statuses as of 11/10/2023) Immunizations Name Administration Dates Next Due COVID-19 [...] encounter Miscellaneous Notes * Telephone Encounter - Yolande Medrano OSA - 11/10/2023 10:16 AM EDT BiPAP supplier switch order entered in [facility] documented in this encounter Plan of Treatment Upcoming Encounters Date Type Department Care Team (Late st Contact Info) Description 11/23/2023 1:40 PM EDT Office Visit Pulmonary Medicine, [facility] 132 [facility] [place] [address] Hi Lopez MD [address] [place] [address] 12/01/2023 11:40 AM EDT Office Visit Podiatry [facility] 132 [facility] [place] [address] Bettye Herrmann, SAMM 400 [facility] [place] [address] 01/19/2024 11:40 AM EDT Office Visit Family Practice [facility] 132 [facility] [place] [address] Johnnie Newby MD 132 [facility] [place] [address] 01/26/2024 10:00 AM EDT Imaging Radiology [facility] 1st [facility] 132 [facility] [place] [address] 01/31/2024 10:00 AM EDT Office Visit Orthopaedics [facility] 132 [facility] [place] [address] Zander Wilkins S, DO 132 [facility] [place] [address] 02/01/2024 11:30 AM EDT Office Visit Radiation Oncology, [place] [address] [address] [place] [address] Shawna Johnson MD [place] [address] 02/07/2024 9:30 AM EDT Imaging Vascular Lab, [facility] 2nd Floor, [place] 132 [facility] [place] [address] 02/16/2024 10:30 AM EDT Office Visit Vascular Surgery, [facility] 132 [facility] [place] [address] Cyril Thompson MD [address] [facility] [place] [address] 03/28/2024 9:30 AM EST Office Visit Cardiology, [facility] 132 [facility] [place] [address] Deisy Aguirre CRNP 132 [facility] [place] [address] 11/08/2024 10:30 AM EDT Office Visit Sleep Disorders Ctr [facility] 132 [facility] [place] [phone] Hui Bishop CRNP 132 [facility] [place] [address] Scheduled Procedures Name Priority Associated Diagnoses Date/Ti me COLONOSCOPY FLEXIBLE PROXIMA L DIAGNOSTIC Recall History of colonic polyps Health Maintenance Due Date Last Done Comments DISCUSS TOBACCO CESSATION (REFER TO SMARTSET #2010) 05/01/2023 05/01/2022, 02/13/2022 COVID-19 Vaccine ( season) [...] Additional history exists CKD PHOS USE SMARTSET 12635 04/15/202403/20, 06/05/2022, 06/03/2021, Additional history exists Depression Monitoring 04/22/2024 04/22/2023 CKD HGB USE SMARTSET 46655 09/01/202409/01, 09/02/2023, 06/03/2023, Additional history exists Colonoscopy [...] this encounter Medical Devices Implanted Type Area Ramp Service Employee Device Identifier Shelf Expiration Date Model / Serial / Lot Lens Intraoc 24.0 - [id number] - [id number] Implanted:Qty: 1 on 06/01/2017 by Nikhil Bolton MD at OR [facility] Left: Eye BAUSCH & LOMB 07/17/2021 [id number] / [id number] / [id number] Lens Intraoc 24.0 - [id number] - [id number] Implanted:Qty: 1 on 06/08/2017 by Nikhil Bolton MD at OR [facility] Right: Eye BAUSCH & LOMB 07/17/2021 [id number] / [id number] / [id number] documented as of this encounter Advance Directives Documents on File Type Date Recorded Patient Rn Plastic Surgery Expl 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 Care Teams Steam And Power Supervisor Relationship Specialty Start Date End Date Johnnie Newby MD 132 [facility] [place] [address] PCP - General Family Medicine 09/13/20 documented as of this encounter
--- OUTSIDE RECORDS SUMMARY | 2023-12-14 20:10 | External Medical Summary | Summary of Care ---
Author Name Unknown Organization [facility] Address [address] [place] [address] Phone [phone] Care Team Providers Care Banquet Food Server Name Role Phone Johnnie Newby MD Primary Care Provider [phone] [phone] Reason for Visit * Reason Comments Medication Refill Encounter Details Date Type Department Care Team (Late st Contact Info) Description 11/14/2023 Refill Pulmonary Medicine, [facility] [address] [place] [address] Hi Dave MD [address] [place] [address] Allergies Active Allergy Reactions Criticality Noted Date Comments Acetaminophen 05/06/2005 headaches documented as of this encounter (statuses as of 11/16/2023) Medications Medication Sig Dispensed Refills Start Date [...] 24 Hour (toPROL XL)Indications:SVT (supraventricular tachycardia) ([facility]),NSVT (nonsustained ventricular tachycardia) ([facility]) [...] 90 Tablet 1 4 025 Active Tiotropium [place] Monohydrate 18 MCG Inhalation Capsule (Spiriva HandiHaler) Inhale 1 Capsule by mouth in the morning. 30 Capsule 2 4 024 Active Additional Information Patient not taking.Reported on 11/09/2023 Albuterol Sulfate HFA 108 (90 Base) MCG/ACT Inhalation Aerosol SolutionIndication s:COPD, group D, by GOLD 2017 classification ([facility]) Inhale 2 Puffs by [...] 24 Hour (Imdur)Indications :Coronary artery disease involving [place] coronary artery without angina pectoris TAKE ONE TABLET BY MOUTH EVERY MORNING 100 Tablet 3 4 025 Active Budesonide 0.25 MG/2ML Inhalation Suspension (Pulmicort) Inhale 0.25 mg via nebulizer 2 times a day as needed for Dyspnea or Wheezing. 160 mL 3 4 024 Active Roflumilast 500 MCG Oral Tablet (Daliresp)Indicati ons:COPD, group D, by GOLD 2017 classification ([facility]) Take 1 Tablet by mouth in the morning. 30 Tablet 2 4 024 Active Cephalexin [...] bedtime. 60 Each 2 4 024 Active Fluticasone-Salmet gume 250-50 MCG/ACT Inhalation Aerosol [...] as of this encounter (statuses as of 11/16/2023) Active Problems Problem Noted Date Diagnosed Date [...] tis 01/05/2014 Coronary artery disease invo lving [place] coronary artery of [place] heart without angina pectoris 11/27/2013 Tobacco abuse 11/27/2013 HTN, goal below 130/80 03/06/2009 Overview: Modified per HTN protocol #16. documented as of this encounter (statuses as of 11/16/2023) Resolved Problems Problem Noted Date Diagnosed Date [...] as of this encounter (statuses as of 11/16/2023) Immunizations Name Administration Dates Next Due COVID-19 mRNA, LNP-s, No Pre serve, 2-Dose Series (Cyntellect) 02/25/2023,02/10/2022,07/13/2020,06/17 Pneumococcal Conjugate Vacc, 13 Valent (Prevnar) [...] 1:40 PM EDT Office Visit Pulmonary Medicine, [facility] 132 [facility] [place] [address] Hi Dave MD [address] [place] [address] 12/01/2023 11:40 AM EDT Office Visit Podiatry [facility] 132 [facility] [place] [address] Bettye Herrmann, SAMM 400 [facility] [place] [address] 01/19/2024 11:40 AM EDT Office Visit Family Practice [facility] [address] [place] [address] Johnnie Newby MD [address] [place] [address] 01/26/2024 10:00 AM EDT Imaging Radiology [facility] 1st Floor, [place] 132 [facility] [place] [address] 01/31/2024 10:00 AM EDT Office Visit Orthopaedics [facility] 132 [facility] [place] [address] Zander Wilkins, 132 [facility] [place] [address] 02/01/2024 11:30 AM EDT Office Visit Radiation Oncology, [address] [place] [address] Shawna Johnson MD [address] [place] [address] [place] [address] 02/07/2024 9:30 AM EDT Imaging Vascular Lab, [facility] 2nd Floor, [place] 132 [facility] [place] [address] 02/16/2024 10:30 AM EDT Office Visit Vascular Surgery, [facility] 132 [facility] [place] [address] Cyril Thompson MD 100 [facility] [place] [address] 03/28/2024 9:30 AM EST Office Visit Cardiology, [facility] 132 [facility] [place] [address] Deisy Aguirre CRNP [address] [place] [address] 11/08/2024 10:30 AM EDT [facility] [address] [place] [phone] Hui Bishop CRNP [address] [place] [address] Scheduled Procedures Name Priority Associated Diagnoses Date/Ti me COLONOSCOPY FLEXIBLE PROXIMA L DIAGNOSTIC Recall History of colonic polyps Health Maintenance Due Date Last Done Comments DISCUSS TOBACCO CESSATION (REFER TO SMARTSET #6001) 05/01/2023 05/01/2022, 02/13/2022 COVID-19 Vaccine ( season) [...] Additional history exists CKD PHOS USE SMARTSET 20679 04/15/202403/20, 06/05/2022, 06/03/2021, Additional history exists Depression Monitoring 04/22/2024 04/22/2023 CKD HGB USE SMARTSET 75057 09/01/202409/01, 09/02/2023, 06/03/2023, Additional history exists Colonoscopy [...] this encounter Medical Devices Implanted Type Area Fire Apparatus Sprinkler Inspector Device Identifier Shelf Expiration Date Model / Serial / Lot Lens Intraoc 24.0 - [id number] - [id number] Implanted:Qty: 1 on 06/01/2017 by Nikhil Bolton MD at OR [facility] Left: Eye BAUSCH & LOMB 07/17/2021 [id number] / [id number] / [id number] Lens Intraoc 24.0 - [id number] - [id number] Implanted:Qty: 1 on 06/08/2017 by Nikhil Bolton MD at OR [facility] Right: Eye BAUSCH & LOMB 07/17/2021 [id number] / [id number] / [id number] documented as of this encounter Advance Directives Documents on File Type Date Recorded Patient Rug Setter Velvet Expl jeanie Advance Directives and Yu Watkins [...] and were consensually agreed upon. Care Teams Banquet Food Server Relationship Specialty Start Date End Date Johnnie Newby MD 132 [facility] [place] [address] PCP - General Family Medicine 09/13/20 documented as of this encounter
--- OUTSIDE RECORDS SUMMARY | 2023-12-14 20:10 | External Medical Summary | Summary of Care ---
Author Name Unknown Organization [facility] Address [address] [place] [address] Phone [phone] Care Team Providers Care Bench Worker Hollow Handle Name Role Phone Johnnie Newby MD Primary Care Provider [phone] [phone] Encounter Details Date Type Department Care Team (Late st Contact Info) Description 10/11/2023 Population Health External Data Unspecified Department Allergies Active Allergy Reactions Criticality Noted Date Comments Acetaminophen 05/06/2005 headaches documented as of this encounter (statuses as of 10/12/2023) Medications Medication Sig Dispensed Refills Start Date [...] 60 Each 2 2023 4 Active Tiotropium [place] Monohydrate 18 MCG Inhalation Capsule (Spiriva HandiHaler) Inhale 1 Capsule by mouth in the morning. 30 Capsule 2 08/16/2023 4 Active Albuterol Sulfate HFA 108 (90 Base) MCG/ACT Inhalation Aerosol SolutionIndications: COPD, group D, by GOLD 2017 classification ([facility]) Inhale 2 Puffs by mouth [...] Hour (Imdur)Indications:C oronary artery disease involving [place] coronary artery without angina pectoris TAKE ONE TABLET BY MOUTH EVERY MORNING 100 Tablet 3 08/30/2023 5 Active Budesonide 0.25 MG/2ML Inhalation Suspension (Pulmicort) Inhale 0.25 mg via nebulizer 2 times a day as needed for Dyspnea or Wheezing. 160 mL 3 08/31/2023 4 Active Roflumilast 500 MCG Oral Tablet (Daliresp)Indication s:COPD, group D, by GOLD 2017 classification ([facility]) Take 1 Tablet by mouth [...] 1 Tablet before bedtime. 180 Tablet 3 09/28/2023 Active Cephalexin 500 MG Oral CapsuleIndications:C hronic pain of right knee,Prepatellar bursitis of right knee Take 1 Capsule by mouth in the morning and 1 Capsule at noon and 1 Capsule before bedtime. Do all this for 14 days. 42 Capsule 10/01/2023 4 Active Hospital, Clinic, or Other Facility Administered Medication Ordered Dose Route Frequency Start Date End Date Status albuterol sulfate (PROVENTIL) (2.5 MG/3ML) 0.083% inhalation solution 2.5 mgIndications:COPD, severe (HCC) 2.5 mg NEBULIZER Q4H PRN 07/08/2018 Active documented as of this encounter (statuses as of 10/12/2023) Active Problems Problem Noted Date Diagnosed Date [...] as of this encounter (statuses as of 10/12/2023) Resolved Problems Problem Noted Date Diagnosed Date [...] as of this encounter (statuses as of 10/12/2023) Immunizations Name Administration Dates Next Due COVID-19 mRNA, LNP-s, No Pre serve, 2-Dose Series (ClassDojo) 02/25/2023,02/10/2022,07/13/2020,06/17 Pneumococcal Conjugate Vacc, 13 Valent (Prevnar) [...] Team (Late st Contact Info) Description 10/27/2023 11:00 AM EDT Office Visit Orthopaedics [facility] 132 [facility] [place] [address] Zander Wilkins, DO [address] [place] [address] 12/01/2023 11:40 AM EDT Office Visit Podiatry [facility] [address] [place] [address] Bettye Herrmann, SAMM [address] [place] [address] [place] [address] 01/18/2024 12:30 PM EDT Office Visit Sleep Disorders Ctr [facility] 132 [facility] [place] [phone] Hui Bishop CRNP 132 [facility] [place] [address] 01/19/2024 11:40 AM EDT Office Visit Family Practice [facility] 132 [facility] [place] [address] Johnnie Newby MD 132 [facility] [place] [address] 01/26/2024 10:00 AM EDT Imaging Radiology [facility] 1st [facility] 132 [facility] [place] [address] 02/01/2024 11:30 AM EDT Office Visit Radiation Oncology, [address] [place] [address] Shawna Johnson MD [address] [place] [address] [place] [address] 02/07/2024 10:30 AM EDT Imaging Radiology, [place] [address] [place] [address] 02/16/2024 10:30 AM EDT Office Visit Vascular Surgery, [facility] 132 [facility] [place] [address] Cyril Thompson MD [address] [place] [address] 03/28/2024 9:30 AM EST Office Visit Cardiology, [facility] 132 [facility] [place] [address] Deisy Aguirre CRNP 132 [facility] [place] [address] Scheduled Procedures Name Priority Associated Diagnoses Date/Ti me COLONOSCOPY FLEXIBLE PROXIMA L DIAGNOSTIC Recall History of colonic polyps Health Maintenance Due Date Last Done Comments DISCUSS TOBACCO CESSATION (REFER TO SMARTSET #1736) 05/01/2023 05/01/2022, 02/13/2022 COVID-19 Vaccine ( season) [...] Additional history exists CKD PHOS USE SMARTSET 70315 04/15/202403/20, 06/05/2022, 06/03/2021, Additional history exists Depression Monitoring 04/22/2024 04/22/2023 CKD HGB USE SMARTSET 18447 09/01/202409/01, 09/02/2023, 06/03/2023, Additional history exists Colonoscopy [...] this encounter Medical Devices Implanted Type Area Grants Assistant Device Identifier Shelf Expiration Date Model / Serial / Lot Lens Intraoc 24.0 - [id number] - [id number] Implanted:Qty: 1 on 06/01/2017 by Nikhil Bolton MD at OR [facility] Left: Eye BAUSCH & LOMB 07/17/2021 [id number] / [id number] / [id number] Lens Intraoc 24.0 - [id number] - [id number] Implanted:Qty: 1 on 06/08/2017 by Nikhil Bolton MD at OR [facility] Right: Eye BAUSCH & LOMB 07/17/2021 [id number] / [id number] / [id number] documented as of this encounter Advance Directives Documents on File Type Date Recorded Patient Superintendent Car Construction Expl anation Advance Directives and Yu g [...] and were consensually agreed upon. Care Teams Bench Worker Hollow Handle Relationship Specialty Start Date End Date Johnnie Newby MD [address] [place] [address] PCP - General Family Medicine 09/13/20 documented as of this encounter
--- OUTSIDE RECORDS SUMMARY | 2023-12-14 20:10 | External Medical Summary | Summary of Care ---
Author Name Unknown Organization [facility] Address [address] [place] [address] Phone [phone] Care Team Providers Care Health Technician Name Role Phone Johnnie Newby MD Primary Care Provider [phone] Reason for Visit * Reason Comments Follow Up Bilateral knee Encounter Details Date Type Department Care Team (Latest Contact Info) Description 10/27/2023 9:00 AM EDT Office Visit Orthopaedics [facility] [place] [address] Zander Wilkins, DO 132 [facility] [address] Primary osteoarthritis of both knees* Allergies Active [...] 60 Each 2 2023 4 Active Tiotropium [place] Monohydrate 18 MCG Inhalation Capsule (Spiriva HandiHaler) Inhale 1 Capsule by mouth in the morning. 30 Capsule 2 08/16/2023 4 Active Albuterol Sulfate HFA 108 (90 Base) MCG/ACT Inhalation Aerosol SolutionIndications: COPD, group D, by GOLD 2017 classification ([facility]) Inhale 2 Puffs by mouth every 6 [...] 24 Hour (Imdur)Indications:C oronary artery disease involving [place] coronary artery without angina pectoris TAKE ONE [...] MG/3ML) 0.083% inhalation solution 2.5 mgIndications:COPD, severe ([facility]) 2.5 mg NEBULIZER Q4H PRN 07/08/2018 Active lidocaine 1% 1 mL - triamcinolone acetonide 40 mg/mL 1 mL inj 2 mLIndications:Primary osteoarthritis of both knees 2 mL IJ ONCE 10/27/2023 10/27/2023 Active lidocaine 1% 1 mL - triamcinolone acetonide 40 mg/mL 1 mL inj 2 mLIndications:Primary osteoarthritis of both knees 2 mL IJ ONCE 10/27/2023 10/27/2023 Active documented as of this encounter (statuses [...] tis 01/05/2014 Coronary artery disease invo lving [place] coronary artery of kaib[place] heart without angina pectoris 11/27/2013 Tobacco abuse [...] mRNA, LNP-s, No Pre serve, 2-Dose Series ([employer]oQuest) 02/25/2023,02/10/2022,07/13/2020,06/17 Pneumococcal Conjugate Vacc, 13 Valent (Prevnar) [...] 10/27/2023 9:00 AM EDT Walter Wei [place]ore[place] [id number] Walter Plattstler is a 77 year old male who presents for follow up of bilateral knee pain to [facility]. Walter Don is [...] Puff before bedtime. 60 Each 2 Tiotropium [place] Monohydrate 18 MCG Inhalation Capsule (Spiriva HandiHaler) [...] Wilkins, DO Primary Care Sports Medicine Orthopaedics [address] [address] This chart was completed in part utilizing [employer] Component Speech Voice Recognition Software. Grammatical errors, random [...] 12/01/2023 11:40 AM EDT Office Visit Podiatry [facility] 132 [facility] [place] [address] Bettye Herrmann DPM [address] [place] [address] 01/18/2024 12:30 PM EDT Office Visit Sleep Disorders Ctr [facility] 132 [facility] [place] [phone] Hui Bishop CRNP 132 [facility] [place] [address] 01/19/2024 11:40 AM EDT Office Visit Family Practice [facility] 132 [facility] [place] [address] Johnnie Newby MD 132 [facility] [place] [address] 01/26/2024 10:00 AM EDT Imaging Radiology [facility] 132 [facility] [place] [address] 01/31/2024 10:00 AM EDT Office Visit Orthopaedics [facility] 132 [facility] [place] [address] Zander Wilkins DO 132 [facility] [place] [address] 02/01/2024 11:30 AM EDT Office Visit Radiation Oncology, [address] [place] [address] Shawna Johnson MD [address] [place] [address] [place] [address] 02/07/2024 9:30 AM EDT Imaging Vascular Lab, [facility] 2nd [facility] [place] 132 [facility] [place] [address] 02/16/2024 10:30 AM EDT Office Visit Vascular Surgery, [facility] 132 [facility] [place] [address] Cyril Thompson MD [address] [place] [address] 03/28/2024 9:30 AM EST Office Visit Cardiology, [facility] 132 [facility] [place] [address] Deisy Aguirre CRNP [address] [facility] [place] [address] Scheduled Orders Name Type Priority Associated Diagnoses [...] Additional history exists CKD PHOS USE SMARTSET 69606 04/15/202403/20, 06/05/2022, 06/03/2021, Additional history exists Depression Monitoring 04/22/2024 04/22/2023 CKD HGB USE SMARTSET 80942 09/01/202409/01, 09/02/2023, 06/03/2023, Additional history exists Colonoscopy [...] this encounter Medical Devices Implanted Type Area Confectionery Maker Device Identifier Shelf Expiration Date Model / Serial / Lot Lens Intraoc 24.0 - [id number] - [id number] Implanted:Qty: 1 on 06/01/2017 by Nikhil Bolton MD at OR [facility] Left: Eye BAUSCH & LOMB 07/17/2021 [id number] / [id number] / [id number] Lens Intraoc 24.0 - [id number] - [id number] Implanted:Qty: 1 on 06/08/2017 by Nikhil Bolton MD at OR [facility] Right: Eye BAUSCH & LOMB 07/17/2021 [id number] / [id number] / [id number] documented as of this encounter Visit Diagnoses Diagnosis Primary osteoarthritis of both knees- Primary Primary localized osteoarthrosis, lower leg documented in this encounter Advance Directives Documents on File Type Date Recorded Patient Dye Range Operator Cloth Expl anation Advance Directives and Livin g [...] were consensually agreed upon. Care Teams Health Technician Relationship Specialty Start Date End Date Johnnie Newby MD [address] [place] [address] PCP - General Family Medicine 09/13/20 documented as of this encounter
--- OUTSIDE RECORDS SUMMARY | 2023-12-14 20:10 | External Medical Summary | Summary of Care ---
Author Name Unknown Organization [facility] Address [address] [place] [address] Phone [phone] Care Team Providers Care Barrel Tester Name Role Phone Johnnie Newby MD Primary Care Provider [phone] Reason for Visit * Reason Comments Follow Up Bilateral knee Encounter Details Date Type Department Care Team (Latest Contact Info) Description 10/27/2023 9:00 AM EDT Office Visit Orthopaedics [facility] [address] [place] [address] Zander Wilkins, DO 132 [place] [address] Primary osteoarthritis of both knees* Allergies Active [...] 60 Each 2 2023 4 Active Tiotropium Courtenay Monohydrate 18 MCG Inhalation Capsule (Spiriva HandiHaler) [...] 24 Hour (Imdur)Indications:C oronary artery disease involving [place] coronary artery without angina pectoris TAKE ONE [...] tis 01/05/2014 Coronary artery disease invo lving [place] coronary artery of [place] heart without angina pectoris 11/27/2013 Tobacco abuse [...] mRNA, LNP-s, No Pre serve, 2-Dose Series (Zuffle) 02/25/2023,02/10/2022,07/13/2020,06/17 Pneumococcal Conjugate Vacc, 13 Valent (Prevnar) [...] 10/27/2023 9:00 AM EDT Walter Wei Florencia [id number] Walter Plattstler is a 77 year old male who presents for follow up of bilateral knee pain to [facility]. Walter Don is here with [...] Puff before bedtime. 60 Each 2 Tiotropium Courtenay Monohydrate 18 MCG Inhalation Capsule (Spiriva HandiHaler) [...] Wilkins, DO Primary Care Sports Medicine Orthopaedics [address] [address] This chart was completed in part utilizing [employer] Star Speech Voice Recognition Software. Grammatical errors, random [...] 12/01/2023 11:40 AM EDT Office Visit Podiatry [facility] 132 [facility] [place] [address] Bettye Herrmann DPM [address] [place] [address] 01/18/2024 12:30 PM EDT Office Visit Sleep Disorders Ctr [facility] 132 [facility] [place] [phone] Hui Bishop CRNP 132 [facility] [place] [address] 01/19/2024 11:40 AM EDT Office Visit Family Practice [facility] 132 [facility] [place] [address] Johnnie Newby MD 132 [facility] [place] [address] 01/26/2024 10:00 AM EDT Imaging Radiology [facility] 1st [facility] 132 [facility] [place] [address] 01/31/2024 10:00 AM EDT Office Visit Orthopaedics [facility] 132 [facility] [place] [address] Zander Wilkins DO 132 [facility] [place] [address] 02/01/2024 11:30 AM EDT Office Visit Radiation Oncology, [address] [place] [address] Shawna Johnson MD [address] [place] [address] [place] [address] 02/07/2024 9:30 AM EDT Imaging Vascular Lab, [facility] 2nd [facility] 132 [facility] [place] [address] 02/16/2024 10:30 AM EDT Office Visit Vascular Surgery, [facility] 132 [facility] [place] [address] Cyril Thompson MD [address] [place] [address] 03/28/2024 9:30 AM EST Office Visit Cardiology, [facility] 132 [facility] [place] [address] Deisy Aguirre CRNP 132 [facility] [place] [address] Scheduled Orders Name Type Priority Associated Diagnoses [...] Additional history exists CKD PHOS USE SMARTSET 67986 04/15/202403/20, 06/05/2022, 06/03/2021, Additional history exists Depression Monitoring 04/22/2024 04/22/2023 CKD HGB USE SMARTSET 25904 09/01/202409/01, 09/02/2023, 06/03/2023, Additional history exists Colonoscopy [...] this encounter Medical Devices Implanted Type Area Biology Tutor Device Identifier Shelf Expiration Date Model / Serial / Lot Lens Intraoc 24.0 - [id number] - [id number] Implanted:Qty: 1 on 06/01/2017 by Nikhil Bolton MD at OR [facility] Left: Eye [employer]OM[employer] 07/17/2021 [id number] / [id number] / [id number] Lens Intraoc 24.0 - [id number] - [id number] Implanted:Qty: 1 on 06/08/2017 by Nikhil Bolton MD at OR [facility] Right: Eye BAUSCH [employer] LOMB 07/17/2021 [id number] / [id number] / [id number] documented as of this encounter Visit Diagnoses [...] Documents on File Type Date Recorded Patient Shiftman Guillermo ware Advance Directives and Yu Watkins [...] and were consensually agreed upon. Care Teams Barrel Tester Relationship Specialty Start Date End Date Johnnie Newby MD [address] [place] [address] PCP - General Family Medicine 09/13/20 documented as of this encounter
--- OUTSIDE RECORDS SUMMARY | 2023-12-14 20:11 | External Medical Summary | Summary of Care ---
Author Name Unknown Organization [facility] Address [address] [place] [address] Phone [phone] Care Team Providers Care Key Holder Name Role Phone Johnnie Newby MD Primary Care Provider [phone] Reason for Visit * Reason Onset Date Comments Test Results 09/21/2023 Encounter Details Date Type Department Care Team (Late st Contact Info) Description 09/21/2023 Telephone Hematology/Oncology [facility] [place] [address] [place] [address] Services, Scheduling [address] [place] [address] Test Results Allergies Active Allergy Reactions Criticality Noted Date Comments Acetaminophen 05/06/2005 headaches documented as of this encounter (statuses as of 09/21/2023) Medications Medication Sig Dispensed Refills Start Date [...] Tablet by mouth in the morning. Active Apixaban 5 MG Oral Tablet (Eliquis) Take 1 Tablet by mouth in the morning and 1 Tablet before bedtime. 180 Tablet 3 12/08/2022 Active Metoprolol Succinate ER 25 MG Oral Tablet Extended Release 24 Hour (toPROL XL)Indications:SVT (supraventricular tachycardia) ([facility]),NSVT (nonsustained ventricular tachycardia) ([facility]) TAKE ONE TABLET BY MOUTH EVERY DAY 90 Tablet 3 12/09/2022 4 Active Vitron-C 65-125 MG Oral Tablet (Iron-Vitamin C 65-125 mg per tab) Take 1 Tablet by mouth in the morning. Active Fluticasone Propionate 50 MCG/ACT Nasal Suspension [...] 60 Each 2 2023 4 Active Tiotropium Monson Monohydrate 18 MCG Inhalation Capsule (Spiriva HandiHaler) Inhale 1 Capsule by mouth in the morning. 30 Capsule 2 08/16/2023 4 Active Albuterol Sulfate HFA 108 (90 Base) MCG/ACT Inhalation Aerosol SolutionIndications: COPD, group D, by GOLD 2017 classification ([facility]) Inhale 2 Puffs by mouth every 6 [...] 24 Hour (Imdur)Indications:C oronary artery disease involving [place] coronary artery without angina pectoris TAKE ONE [...] the morning. 100 Tablet 1 09/20/2023 Active Hospital, Clinic, or Other Facility Administered Medication Ordered Dose Route Frequency Start Date End Date Status albuterol sulfate (PROVENTIL) (2.5 MG/3ML) 0.083% inhalation solution 2.5 mgIndications:COPD, severe (HCC) 2.5 mg NEBULIZER Q4H PRN 07/08/2018 Active documented as of this encounter (statuses as of 09/21/2023) Active Problems Problem Noted Date Diagnosed Date [...] tis 01/05/2014 Coronary artery disease invo lving [place] coronary artery of [place] heart without angina pectoris 11/27/2013 Tobacco abuse 11/27/2013 HTN, goal below 130/80 03/06/2009 Overview: Modified per HTN protocol #16. documented as of this encounter (statuses as of 09/21/2023) Resolved Problems Problem Noted Date Diagnosed Date [...] as of this encounter (statuses as of 09/21/2023) Immunizations Name Administration Dates Next Due COVID-19 [...] encounter Miscellaneous Notes * Telephone Encounter - Keyur Miller RN - 09/21/2023 3:20 PM EDT Called patients back and informed her of this, no further questions at this time. * Telephone Encounter - Lexie Palmer CRNP - 09/21/2023 2:56 PM EDT Results for orders placed or performed in visit on 09/02/23 COMPREHENSIVE METABOLIC PANEL Result Value Ref Range BUN 23 (H) 6 - 20 mg/dL Creatinine 1.3 (H) 0.6 - 1.2 mg/dL Estimated Glomerular Filtration Rate 55 (L) >=60 mL/min Sodium 143 135 - 146 mmol/L Potassium 4.3 3.5 - 5.1 mmol/L Chloride 103 98 - 107 mmol/L CO2 25 22 - 32 mmol/L Anion Gap 15 7 - 15 mmol/L Glucose 136 (H) 70 - 120 mg/dL Albumin 4.1 3.8 - 5.0 g/dL AST 20 10 - 50 U/L Alkaline Phosphatase 118 35 - 130 U/L Bilirubin, Total <0.2 <=1.2 mg/dL Calcium 9.7 8.4 - 10.2 mg/dL Protein 6.4 6.0 - 8.3 g/dL ALT 21 10 - 50 U/L IRON SCREEN, INCLUDING TIBC Result Value Ref Range Iron 66 45 - 176 ug/dL Iron Binding Capacity 260 250 - 425 ug/dL Transferrin Saturation Percent 25 15 - 55 % FERRITIN Result Value Ref Range Ferritin 43 30 - 400 ng/mL MYCODE SST1 Result Value Ref Range MyCode Specimen Freezing of extracted DNA, whole blood and/or serum. MYCODE SST2 Result Value Ref Range MyCode Specimen Freezing of extracted DNA, whole blood and/or serum. CBC Result Value Ref Range WBC 6.50 4.00 - 10.80 K/uL RBC 4.53 4.50 - 5.25 M/uL HGB 12.5 (L) 14.0 - 16.8 g/dL HCT 42.2 40.0 - 48.4 % MCV 93.2 82.0 - 99.5 fL MCH 27.6 27.0 - 34.0 pg MCHC 29.6 32.0 - 36.0 g/dL RDW 19.6 11.5 - 15.5 % PLT 244 140 - 400 K/uL MPV 9.9 6.6 - 11.1 fL nRBCs 0 <=0 /100 WBCs DIFFERENTIAL, AUTOMATED Result Value Ref Range WBC 6.50 4.00 - 10.80 K/uL Neutrophils % 77.8 (H) 40.0 - 75.0 % Lymphocytes % 14.6 (L) 18.0 - 42.0 % Monocytes % 7.1 1.0 - 11.0 % Eosinophils % 0.0 0.0 - 6.0 % Basophils % 0.2 0.0 - 2.0 % Immature Granulocytes % 0.3 0.0 - 2.0 % Absolute Neutrophils 5.06 1.80 - 7.70 K/uL Absolute Lymphocytes 0.95 (L) 1.00 - 4.80 K/ul Absolute Monocytes 0.46 0.00 - 1.10 K/uL Absolute Eosinophils 0.00 0.00 - 0.70 K/uL Absolute Basophils 0.01 0.00 - 0.20 K/uL Absolute Immature Granulocytes 0.02 0.00 - 0.20 K/uL DIFFERENTIAL, TECHNOLOGIST REVIEW Result Value Ref Range [place] Cells Moderate (A) None Seen Ovalocytes Moderate (A) None Seen Schistocytes Few (A) None Seen *Note: Due to a large number of results and/or encounters for the requested time period, some results have not been displayed. A complete set of results can be found in Results Review. Lab work showing continued improvement in anemia, Hgb now 12.5. Iron studies stable. Continue Vitron C one tablet daily. No further hematology follow up needed at this time. Can continue lab monitoring through routine PCP visits. * Telephone Encounter - Keyur Miller RN - 09/21/2023 2:15 PM EDT Lexie- please review labs and we will call patient. Thank you. * Telephone Encounter - Aziza Padilla OSA - 09/21/2023 2:06 PM EDT Anylo calling stated she received a letter in regards to appt that was canceled on 09/08 she stated that pt is on hospice so they limit the number of dr visits that pt can have. If some one couldgive them a call to discuss the lab results. Thank you documented in this encounter Plan of Treatment Upcoming Encounters Date Type Department Care Team (Late st Contact Info) Description 10/27/2023 11:00 AM EDT Office Visit Orth[facility]ed[facility] [place] [address] Zander Wilkins, DO [address] [place] [address] 12/01/2023 11:40 AM EDT Office Visit Podiatry [facility] [address] [place] [address] Bettye Herrmann, DPM 400 [facility] [place] [address] 01/18/2024 12:30 PM EDT Office Visit Sleep Disorders Ctr [facility] 132 [facility] [place] [phone] Hui Bishpo CRNP [address] [place] [address] 01/19/2024 11:40 AM EDT Office Visit Family Practice [facility] [address] [place] [address] Johnnie Newby MD [address] [place] [address] 01/26/2024 10:00 AM EDT Imaging Radiology [facility] 1st [facility] [place] [address] [place] [address] 02/01/2024 11:30 AM EDT Office Visit Radiation Oncology, [address] [place] [address] Shawna Johnson MD [address] [place] [address] [place] [address] 03/28/2024 9:30 AM EST Office Visit Cardiology, [facility] [address] [place] [address] Deisy Aguirre CRNP [address] [place] [address] Scheduled Procedures Name Priority Associated Diagnoses Date/Ti me COLONOSCOPY FLEXIBLE PROXIMA L DIAGNOSTIC Recall History of colonic polyps Health Maintenance Due Date Last Done Comments DISCUSS TOBACCO CESSATION (REFER TO SMARTSET #7284) 05/01/2023 05/01/2022, 02/13/2022 COVID-19 Vaccine (2022- season) 2023 03/03/2023, 02/25/2023, 02/10/2022, Additional history [...] Additional history exists CKD PHOS USE SMARTSET 54084 04/15/202403/20, 06/05/2022, 06/03/2021, Additional history exists CKD HGB USE SMARTSET 06115 09/01/202409/01, 09/02/2023, 06/03/2023, Additional history exists Colonoscopy [...] this encounter Medical Devices Implanted Type Area Crester Device Identifier Shelf Expiration Date Model / Serial / Lot Lens Intraoc 24.0 - [id number] - [id number] Implanted:Qty: 1 on 06/01/2017 by Nikhil Bolton MD at OR [facility] Left: Eye BAUSCH [employer] LOMB 07/17/2021 [id number] / [id number] / [id number] Lens Intraoc 24.0 - [id number] - [id number] Implanted:Qty: 1 on 06/08/2017 by Nikhil Bolton MD at OR [facility] Right: Eye BAUSCH [employer] LOMB 07/17/2021 [id number] / [id number] / [id number] documented as of this encounter Advance Directives Documents on File Type Date Recorded Patient Administrative Nursing Supervisor Expl anation Advance Directives and Yu fine [...] and were consensually agreed upon. Care Teams Key Holder Relationship Specialty Start Date End Date Johnnie Newby MD [address] [place] [address] PCP - General Family Medicine 09/13/20 documented as of this encounter
--- OUTSIDE RECORDS SUMMARY | 2023-12-14 20:11 | External Medical Summary | Summary of Care ---
Author Name Unknown Organization [facility] Address [address] [place] [address] Phone [phone] Care Team Providers Care Vinyl Cutter Name Role Phone Johnnie Newby MD Primary Care Provider [phone] Reason for Visit * Reason Onset Date Comments Appointment 07/01/2023 Encounter Details Date Type Department Care Team (Late st Contact Info) Description 07/01/2023 Telephone Orthopaedics [facility] [address] [place] [address] Zander Wilkins, DO 132 [facility] [place] [address] Appointment Allergies Active Allergy Reactions Criticality Noted Date Comments Acetaminophen 05/06/2005 headaches documented as of this encounter (statuses as of 09/30/2023) Medications Medication Sig Dispensed Refills Start Date End Date Status DAILY MULTIVITAMIN PO TABS Take 1 Tablet by mouth daily. Active BUSPAR 15 MG PO TABS Take 1 Tablet by mouth daily as needed. Active clonazePAM (KLONOPIN) 0.5 MG Tablet Take 1 Tablet by mouth daily as needed. 0 06/17/2016 Active ONETOUCH ULTRA BLUE STRPIndications:Ty pe 2 [...] DAY 90 Tablet 3 12/09/2022 12/09/2023 Active Vitron-C 65-125 MG Oral [...] as of this encounter (statuses as of 09/30/2023) Active Problems Problem Noted Date Diagnosed Date [...] as of this encounter (statuses as of 09/30/2023) Resolved Problems Problem Noted Date Diagnosed Date [...] as of this encounter (statuses as of 09/30/2023) Immunizations Name Administration Dates Next Due COVID-19 mRNA, LNP-s, No Pre serve, 2-Dose Series (Sosei) 02/25/2023,02/10/2022,07/13/2020,06/17 Pneumococcal Conjugate Vacc, 13 Valent (Prevnar) [...] encounter Miscellaneous Notes * Telephone Encounter - Ria Leiva OSA - 07/01/2023 2:33 PM EDT Pt unable to make appt scheduled for him on 07/27/23. Pt has an appt with cancer in [place] on the same date. Best call back number to reschedule is [phone]. Thank you, Ria Medina * Telephone Encounter - Dee Dee Cagle OSA - 07/01/2023 1:[address] Wilkins, Patient stopped in the clinic this afternoon and said you would like to see him before his 's surgery on 08-16-23. I was unable to find a return spot. Can you please let me know a time and date that works for you. Thank you documented in this encounter Plan of Treatment Upcoming Encounters Date Type Department Care Team (Late st Contact Info) Description 10/27/2023 11:00 AM EDT Office Visit Orthopaedics [facility] 132 [facility] [place] [address] Zander Wilkins DO 132 [facility] [place] [address] 12/01/2023 11:40 AM EDT Office Visit Podiatry [facility] 132 [facility] [place] [address] Bettye Herrmann, SAMM [address] [place] [address] [place] [address] 01/18/2024 12:30 PM EDT Office Visit Sleep Disorders Ctr [facility] 132 [facility] [place] [phone] Hui Bishop CRNP 132 [facility] [place] [address] 01/19/2024 11:40 AM EDT Office Visit Family Practice [facility] 132 [facility] [place] [address] Johnnie Newby MD 132 [facility] [place] [address] 01/26/2024 10:00 AM EDT Imaging Radiology [facility] 1st [facility] 132 [facility] [place] [address] 02/01/2024 11:30 AM EDT Office Visit Radiation Oncology, [address] [place] [address] Shawna Johnson MD [address] [place] [address] [place] [address] 02/07/2024 10:30 AM EDT Imaging Radiology, [address] [place] [address] 02/16/2024 10:30 AM EDT Office Visit Vascular Surgery, [facility] 132 [facility] [place] [address] Cyril Thompson MD [address] [facility] [place] [address] 03/28/2024 9:30 AM EST Office Visit Cardiology, [facility] 132 [facility] [place] [address] Deisy Aguirre CRNP 132 [facility] [place] [address] Scheduled Procedures Name Priority Associated Diagnoses Date/Ti [...] Additional history exists CKD PHOS USE SMARTSET 24988 04/15/202403/20, 06/05/2022, 06/03/2021, Additional history exists Depression Monitoring 04/22/2024 04/22/2023 CKD HGB USE SMARTSET 23840 09/01/202409/01, 09/02/2023, 06/03/2023, Additional history exists Colonoscopy [...] this encounter Medical Devices Implanted Type Area Mergers And Acquisitions Manager Device Identifier Shelf Expiration Date Model / Serial / Lot Lens Intraoc 24.0 - [id number] - [id number] Implanted:Qty: 1 on 06/01/2017 by Nikhil Bolton MD at OR [facility] Left: Eye BAUSCH [employer] LOMB 07/17/2021 [id number] / [id number] / [id number] Lens Intraoc 24.0 - [id number] - [id number] Implanted:Qty: 1 on 06/08/2017 by Nikhil Bolton MD at OR [facility] Right: Eye BAUSCH & LOMB 07/17/2021 [id number] / [id number] / [id number] documented as of this encounter Advance Directives Documents on File Type Date Recorded Patient Web Specialist Expl 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 Care Teams Vinyl Cutter Relationship Specialty Start Date End Date Johnnie Newby MD [address] [place] [address] PCP - General Family Medicine 09/13/20 documented as of this encounter
--- OUTSIDE RECORDS SUMMARY | 2023-12-14 20:11 | External Medical Summary | Summary of Care ---
Author Name Unknown Organization [facility] Address [address] [place] [address] Phone [phone] Care Team Providers Care Administrative Support Assistant Name Role Phone John Newby MD Primary Care Provider [phone] Reason for Visit * Reason Comments Medication Refill Encounter Details Date Type Department Care Team (Late st Contact Info) Description 09/24/[address] [facility] [address] [address] John Newby MD [address] [place] [address] Allergies Active Allergy Reactions Criticality Noted Date Comments Acetaminophen 05/06/2005 headaches documented as of this encounter (statuses as of 09/24/2023) Medications Medication Sig Dispensed Refills Start Date [...] Hour (toPROL XL)Indications:SVT (supraventricular tachycardia) ([facility]),NSVT (nonsustained ventricular tachycardia) ([facility]) [...] 90 Tablet 1 08/05/2023 08/05/19 25 Active Fluticasone-[place] rol 250-50 MCG/ACT Inhalation Aerosol Powder Breath Activated (Advair Diskus) Inhale 1 Puff by mouth in the morning and 1 Puff before bedtime. 60 Each 2 2023 11/09/19 24 Active Tiotropium [place] Monohydrate 18 MCG Inhalation Capsule (Spiriva HandiHaler) Inhale 1 Capsule by mouth in the morning. 30 Capsule 2 08/16/2023 11/17/19 24 Active Albuterol Sulfate HFA 108 (90 Base) MCG/ACT Inhalation Aerosol SolutionIndications :COPD, group D, by GOLD 2017 classification ([facility]) Inhale 2 Puffs by mouth every [...] (Imdur)Indications: Coronary artery disease involving [place] coronary artery without angina pectoris TAKE ONE [...] Active Triamcinolone Acetonide 0.1 % External Cream (Aristocort)Indicat [...] NOSTRIL IN THE MORNING 16 g 1 09/24/2023 Active Fluticasone Propionate 50 MCG/ACT Nasal Suspension (Flonase) USE TWO SPRAYS IN EACH NOSTRIL IN THE MORNING 16 g 1 01/15/2023 09/24/19 24 Discontinu ed(Refill) Hospital, Clinic, or Other Facility Administered Medication Ordered Dose Route Frequency Start Date End Date Status albuterol sulfate (PROVENTIL) (2.5 MG/3ML) 0.083% inhalation solution 2.5 mgIndications:COPD, severe (HCC) 2.5 mg NEBULIZER Q4H PRN 07/08/2018 Active documented as of this encounter (statuses as of 09/24/2023) Active Problems Problem Noted Date Diagnosed Date [...] Coronary artery disease invo lving [place] coronary artery of [place] heart without angina pectoris 11/27/2013 Tobacco abuse 11/27/2013 HTN, goal below 130/80 03/06/2009 Overview: Modified per HTN protocol #16. documented as of this encounter (statuses as of 09/24/2023) Resolved Problems Problem Noted Date Diagnosed Date [...] as of this encounter (statuses as of 09/24/2023) Immunizations Name Administration Dates Next Due COVID-19 mRNA, LNP-s, No Pre serve, 2-Dose Series (Illumagear) 02/25/2023,02/10/2022,07/13/2020,06/17 Pneumococcal Conjugate Vacc, 13 Valent (Prevnar) [...] encounter Miscellaneous Notes * Telephone Encounter - Marli Dowling [facility] - 09/24/2023 7:28 AM EDT Signed Prescriptions: Disp Refills Fluticasone Propionate 50 MCG/ACT Nasal Ku*16 g 1 Sig: USE TWO SPRAYS IN EACH NOSTRIL IN THE MORNINGAuthorizing Provider: JOHN NEWBY User: MARLI DOWLING documented in this encounter Plan of Treatment Upcoming Encounters Date Type Department Care Team (Late st Contact Info) Description 10/27/2023 11:00 AM EDT Office Visit Orthopaedics [facility] [address] [address] Zander Wilkins, [address] [place] [address] 12/01/2023 11:40 AM EDT Office Visit Podiatry [facility] [address] [place] [address] Bettye Herrmann, DPM [address] [place] [address] [place] [address] 01/18/2024 12:30 PM EDT Office Visit Sleep Disorders Ctr [facility] [address] [place] [id number] Hui Bishop CRNP [address] [place] [address] 01/19/2024 11:40 AM EDT Office Visit Family Practice [facility] [address] [place] [address] John Newby MD [address] [place] [address] 01/26/2024 10:00 AM EDT Imaging Radiology [facility] 1st Floor, [place] [address] [place] [address] 02/01/2024 11:30 AM EDT Office Visit Radiation Oncology, [address] [place] [address] Shawna Johnson MD [address] [place] [address] 03/28/2024 9:30 AM EST Office Visit Cardiology, [facility] [address] [place] [address] Deisy Aguirre CRNP [address] [place] [address] Scheduled Procedures Name Priority Associated Diagnoses Date/Ti [...] Additional history exists CKD PHOS USE SMARTSET 92810 04/15/202403/20, 06/05/2022, 06/03/2021, Additional history exists CKD HGB USE SMARTSET 06287 09/01/202409/014, 09/02/2023, 06/03/2023, Additional history exists Colonoscopy 01/14/2025 [...] this encounter Medical Devices Implanted Type Area Pit Furnace Operator Device Identifier Shelf Expiration Date Model / Serial / Lot Lens Intraoc 24.0 - [id number] - [id number] Implanted:Qty: 1 on 06/01/2017 by Nikhil Bolton MD at OR [facility] Left: Eye BAUSCH & LOMB 07/17/2021 [id number] / [id number] / [id number] Lens Intraoc 24.0 - [id number] - [id number] Implanted:Qty: 1 on 06/08/2017 by Nikhil Bolton MD at OR [facility] Right: Eye BAUSCH & LOMB 07/17/2021 [id number] / [id number] / [id number] documented as of this encounter Advance Directives Documents on File Type Date Recorded Patient Lab Support Service Tech Expl anation Advance Directives and Yu Watkins 11/20/2005 ADVANCE DIRECTIVE * Full Code (Latest Code Status on File) Date Activated Date Inactivated Comments 04/15/2023 9:22 PM 04/18/2023 7:12 PM This orde r reflects the patients [...] and were consensually agreed upon. Care Teams Administrative Support Assistant Relationship Specialty Start Date End Date John Newby MD [address] [place] [address] PCP - General Family Medicine 09/13/20 documented as of this encounter
--- OUTSIDE RECORDS SUMMARY | 2023-12-14 20:11 | External Medical Summary | Summary of Care ---
Author Name Unknown Organization [facility] Address [address] [place] [address] Phone [phone] Care Team Providers Care Rn Ostomy Name Role Phone Johnnie Newby MD Primary Care Provider [phone] Reason for Visit * Reason Comments Follow Up Right knee follow up * Evaluate & Treat - Unlimited Visits (Within 10 days (routine)) - Authorized Specialty Diagnoses / Procedures Referred By Treva judd Referred To Contact Sports Medicine / Orthopedics Diagnoses Right knee pain Prepatellar bursitis of right knee Charline Mckeon PA-C [address] [place] [id number] Referral ID Status Reason Start Date Expiration Date Visits Requested Visits Authorized [id number] Authorized Specialty Services Required 10/01/2023 [id number] Encounter Details Date Type Department Care Team (Late st Contact Info) Description 10/05/2023 2:00 PM EDT Office Visit Orthopaedics [facility] [address] [place] [address] Charline Mckeon PA-C [address] [place] [address] Prepatellar bursitis of right knee* Allergies Active Allergy Reactions Criticality Noted Date Comments Acetaminophen 05/06/2005 headaches documented as of this encounter (statuses as of 10/05/2023) Medications Medication Sig Dispensed Refills Start Date [...] 60 Each 2 2023 4 Active Tiotropium [place] Monohydrate 18 MCG Inhalation Capsule (Spiriva HandiHaler) Inhale 1 Capsule by mouth in the morning. 30 Capsule 2 08/16/2023 4 Active Albuterol Sulfate HFA 108 (90 Base) MCG/ACT Inhalation Aerosol SolutionIndications: COPD, group D, by GOLD 2017 classification ([facility]) Inhale 2 Puffs by mouth [...] this for 14 days. 42 Capsule 10/01/2023 Active Hospital, Clinic, or Other Facility Administered Medication Ordered Dose Route Frequency Start Date End Date Status albuterol sulfate (PROVENTIL) (2.5 MG/3ML) 0.083% inhalation solution 2.5 mgIndications:COPD, severe (HCC) 2.5 mg NEBULIZER Q4H PRN 07/08/2018 Active documented as of this encounter (statuses as of 10/05/2023) Active Problems Problem Noted Date Diagnosed Date [...] tis 01/05/2014 Coronary artery disease invo lving [place] coronary artery of [place] heart without angina pectoris 11/27/2013 Tobacco abuse 11/27/2013 HTN, goal below 130/80 03/06/2009 Overview: Modified per HTN protocol #16. documented as of this encounter (statuses as of 10/05/2023) Resolved Problems Problem Noted Date Diagnosed Date [...] as of this encounter (statuses as of 10/05/2023) Immunizations Name Administration Dates Next Due COVID-19 [...] as of this encounter Progress Notes * Sharer, Charline Charlton PA-C - 10/05/2023 1:55 PM EDT Walter Don is a 78 year old male who presents for consultation to [facility] for right knee injury/pain. Consult requested by Self. Walter Don is here unaccompanied History: Walter Don Returns for follow-up of right knee arthritis. He is on day 4 cephalexin. He notessignificant improvement. Reports diminished swelling and pain. States redness is resolving. Review of systems: All others negative except those noted above in HPI. Review of patient's allergies indicates: Allergen Reactions [...] Puff before bedtime. 60 Each 2 Tiotropium [place] Monohydrate 18 MCG Inhalation Capsule (Spiriva HandiHaler) [...] 1 Tablet before bedtime. 180 Tablet 3 Cephalexin 500 MG Oral Capsule Take 1 Capsule by mouth in the morning and 1 Capsule at noon and 1 Capsule before bedtime. Do all this for 14 days. 42 Capsule 0 Current Facility-Administered Medications Medication Dose [...] inactive term Patient Active Problem List Diagnosis HTN, goal below 130/80 Coronary artery disease involving [place] coronary artery of [place] heart without angina pectoris Tobacco abuse PTSD (post-traumatic stress disorder) Gastroesophageal reflux disease without esophagitis Type 2 diabetes mellitus with hemoglobin A1c goal of less than 8.0% (HCC) YISSEL treated with BiPAP Peripheral arterial disease (HCC) Dyslipidemia COPD, group D, by GOLD 2017 classification (HCC) Carotid stenosis, non-symptomatic NSVT (nonsustained ventricular tachycardia) (HCC) Aortic valve stenosis AAA (abdominal aortic aneurysm) (HCC) Chronic kidney disease, stage 3a (HCC) Malignant neoplasm of right upper lobe of lung (HCC) Depression with anxiety History of cardioembolic cerebrovascular accident (CVA) Overweight (BMI 25.0-29.9) Gouty arthropathy Diabetic peripheral neuropathy (HCC) Diverticulosis of large intestine without hemorrhage Anemia of chronic disease Closed nondisplaced fracture of fifth metatarsal bone of right foot with routine healing Past Surgical History: Procedure Laterality Date BRONCHOSCOPY, DIAGNOSTIC N/A 06/12/2020 BRONCHOSCOPY DIAGNOSTIC WITH OR WITHOUT WASHING performed by Warren Patel [place] [facility] [place] THRU STOMA, W/BIOPSY 05/28/2010 andenomatous tissue--repeat in 3 months COLONOSCOPY THRU STOMA, W/BIOPSY 09/18/2010 adenomatous-repeat colonoscopy in 3-6 months COLONOSCOPY THRU STOMA, W/BIOPSY 04/09/2011 polyps x3 , path shows adenomatous tissue repeat in 1 years COLONOSCOPY, DIAGNOSTIC (RECTUM) 05/20/2016 adenomatous polyps, poor prep, diverticulosis, repeat 3 yrs/[facility] COLONOSCOPY, DIAGNOSTIC (RECTUM) 06/06/2019 hemorrhoids/diverticulosis sigmoid and [...] DO at ENDOSCOPY [facility] CORONARY ANGIOGRAPHY W/LEFT HEART CATH Right 04/16/2023 CORONARY ANGIOGRAPHY W/LEFT HEART CATH performed by Maria G Lance MD [place] [facility] [facility] [place] LUMBAR SACRAL NERVE IMAGING ADD'L 01/27/2023 [...] LEVEL performed by Pb Alexander DO at [facility] L-/S-SPINE PARAVERTEBRAL FACET INJ,1 LEVEL 01/06/2023 L-/S-SPINE PARAVERTEBRAL FACET INJ, 1 LEVEL performed by Pb Alexander DO at [facility] L-/S-SPINE PARAVERTEBRL FACET INJ,2 LEVELS 11/25/2022 L-/S-SPINE PARAVERTEBRAL FACET INJ, 2 LEVELS performed by Pb Alexander DO at [facility] L-/S-SPINE PARAVERTEBRL FACET INJ,2 LEVELS 01/06/2023 L-/S-SPINE PARAVERTEBRAL FACET INJ, 2 LEVELS performed by Willamina Zander Alexander DO at [facility] MISCELLANEOUS ORDER ([facility] ONLY) 1998 henria repair OTHER [...] MD at OR [facility] Social History Socioeconomic History Marital status: Spouse [...] comments: started age 7 Vaping Use Vaping status: Never Used Substance and Sexual Activity Alcohol use: No Drug use: No Sexual activity: Not on file Other Topics Concern Not on file Social History Narrative No pets. No mold. Social Determinants of Health Financial Resource Strain: Low Risk (2023) Financial Resource Strain Do you have any trouble paying for your medications, or do you think you might in the future? (Adult - for ages 18 years and over): No Does your family have trouble paying for medicine? (Household - for ages 0-17 years): Not on file Food Insecurity: No Food Insecurity (2023) Food Insecurity Do you need food for this week? (Adult - for ages 18 years and over): No Are you able to get enough food for your family? (Household - for ages 0-17 years): Not on file Does your family need food this week? (Household - for ages 0-17 years): Not on file Do you always have enough food for your family? (Household - for ages 0-17 years): Not on file Transportation Needs: No Transportation Needs (2023) Transportation Needs Do you have trouble getting a ride to medical visits or work? (Adult - for ages 18 years and over):Never True Does your family have a hard time getting a ride to doctors visits? (Household - for ages 0-17 years): Not on file Has lack of transportation kept you from medical appointments, meetings, work, or from getting things needed for daily living? Check all that apply. (Adult - for ages 18 years and over): Not on file Do you (or your family) have trouble finding or paying for a ride (transportation)? (Household - for ages 0-17 years): Not on file Social Connections: Socially Integrated (2023) Social Connections How often do you feel lonely or isolated from those around you? (Adult - for ages 18 years and over): Never Housing Stability: Low Risk (2023) Housing Stability Do you currently live in a long term or have no steady place to sleep at night? (Adult - for ages 18 years and over): No Do you think you are at risk of becoming homeless? (Adult - for ages 18 years and over): No Does your family worry about paying for your home or becoming homeless? (Household - for ages 0-17 years): Not on file Are you homeless or worried that you might be in the future? (Adult - for ages 18 years and over): Not on file Are you (or your family) homeless or worried that you might be in the future? (Household - for ages0-17 years): Not on file Family History Problem Relation Name Age of Onset Cancer Mother colon Gastro-intestinal disorder Sister crohn's No Known Problems Father Heart disease Brother Heart disease Brother Family History; none relevant to today's HPI Objective: [facility] 11/18/2022 08:28 02/16/2023 07:14 02/16/2023 07:17 04/20/2023 07:11 07/04/2023 08:31 07/04/2023 08:35 [facility] Date of Service 2022-12-17 2023-02-26 2023-02-26 2023-04-26 2023-07-28 2023-07-28 Appt Label now now now now now now [place] Quality of Life Survey Physical (Pt Reported) 33.1993 24.6319 24.4892 [place] Quality of Life Survey Mental (Pt Reported) 45.2634 39.1357 41.4411 Short Form 12 Quality of Life survey Physical Health (Pt Reported) 29.5716 23.2853 24.6584 Short Form 12 Quality of Life survey Mental Health (Pt Reported) 43.0849 39.5854 40.8124 International Knee Documentation Committee Computer Adapted Test (Pt Reported) 32.4049 Current Pain 5 1 Physical Exam There were no vitals filed for this visit. Estimated body mass index is 28.55 kg/m as calculated from the following: Height as of 08/25/23: 1.778 m (5' 10"). Weight as of 09/16/23: 90.3 kg (199 lb). General: generally well-nourished and in no acute distress HEENT: normocephalic, atraumatic, sclera anicteric. Psych: mood and affect normal , cooperative Card: Peripheral pulses: normal in affected extremity (s) Resp: equal chest rise, non-tachypneic, non-labored breathing Skin: no rash, normal Neuro: Sensation: normal on affected extremity (s) MSK: Gait/station/stance: antalgic gait without an assistive device on smooth flat indoor surface. Knee Exam, Bilateral Inspection: Resolving localized area of swelling and erythema along the anterior knee. No effusion. Palpation: mild tenderness to palpation anterior knee on the right ROM: Flexion/Neutral/Extension: L - 120/0/0, R - 110/0/0 Popliteal Angle (Hamstring Flexibility): 30 Bilateral Strength: R- Strength: Extension - 5/5 Flexion - 5/5 L - Strength: Extension - 5/5 Flexion - 5/5 Assessment and Plan: Prepatellar bursitis of right knee (Primary) Recommend he complete course of cephalexin. Advised to seek medical attention if he develops any signs of worsening infection including increased pain, redness, or fever. Follow Up: Return if symptoms worsen or fail to improve. Charline Mckeon PA-C [facility] [address] [address] documented in this encounter Nursing Notes * David Phelps ATC - 10/05/2023 1:47 PM EDT Patient reports back today for follow up of his right knee. States it's been feeling better since his last visit. Able to complete ADL more readily. Stairs are still difficult. documented in this encounter Plan of Treatment Upcoming Encounters Date Type Department Care Team (Late st Contact Info) Description 10/27/2023 11:00 AM EDT Office Visit Orthopaedics [facility] [address] [place] [address] Zander Wilkins DO [address] [place] [address] 12/01/2023 11:40 AM EDT Office Visit Podiatry [facility] [address] [facility] [place] [address] Bettye Herrmann, SAMM [address] [place] [address] [place] [address] 01/18/2024 12:30 PM EDT Office Visit Sleep Disorders Ctr [facility] [address] [facility] [place] [phone] Hui Bishop CRNP [address] [facility] [place] [address] 01/19/2024 11:40 AM EDT Office Visit Family Practice [facility] [address] [facility] [place] [address] Johnnie Newby MD [address] [facility] [place] [address] 01/26/2024 10:00 AM EDT [facility] [address] [facility] [place] [address] 02/01/2024 11:30 AM EDT Office Visit Radiation Oncology, [address] [place] [address] Shawna Johnson MD [address] [place] [address] [place] [address] 02/07/2024 10:30 AM EDT Imaging Radiology, [place] [address] [place] [address] 02/16/2024 10:30 AM EDT Office Visit Vascular Surgery, [facility] 132 [place] [address] Cyril Thompson MD [address] [facility] [address] 03/28/2024 9:30 AM EST Office Visit Cardiology, [facility] 132 [facility] [place] [address] Deisy [facility]irre CRNP [facility] [address] Scheduled Procedures Name Priority Associated Diagnoses Date/Ti me COLONOSCOPY FLEXIBLE PROXIMA L DIAGNOSTIC Recall History of colonic polyps Scheduled Referrals Name Type Priority Associated Diagnoses Orde r Schedule SPORTS MEDICINE REFERRAL OP Referral Within 10 days (routine) Chronic pain of right knee Prepatellar bursitis of right knee Ordered: 10/01/2023 Health Maintenance Due Date Last Done Comments [...] Additional history exists CKD PHOS USE SMARTSET 59807 04/15/202403/20, 06/05/2022, 06/03/2021, Additional history exists Depression Monitoring 04/22/2024 04/22/2023 CKD HGB USE SMARTSET 89537 09/01/202409/01, 09/02/2023, 06/03/2023, Additional history exists Colonoscopy [...] this encounter Medical Devices Implanted Type Area Car Barn Laborer Device Identifier Shelf Expiration Date Model / Serial / Lot Lens Intraoc 24.0 - [id number] - [id number] Implanted:Qty: 1 on 06/01/2017 by Nikhil Bolton MD at [facility] Left: Eye BAUSCH & LOMB 07/17/2021 [id number] / [id number] / [id number] Lens Intraoc 24.0 - [id number] - [id number] Implanted:Qty: 1 on 06/08/2017 by Nikhil Bolton MD at OR [facility] Right: Eye BAUSCH & LOMB 07/17/2021 [id number] / [id number] / [id number] documented as of this encounter Visit Diagnoses Diagnosis Prepatellar bursitis of right knee- Primary Prepatellar bursitis documented in this encounter Advance Directives Documents on File Type Date Recorded Patient Metaphysician Expl anation Advance Directives and Yu babatunde Will 11/20/2005 ADVANCE DIRECTIVE * Full Code [...] were consensually agreed upon. Care Teams Rn Ostomy Relationship Specialty Start Date End Date Johnnie Newby MD [address] [place] [address] PCP - General Family Medicine 09/13/20 documented as of this encounter
--- OUTSIDE RECORDS SUMMARY | 2023-12-14 20:11 | External Medical Summary | Summary of Care ---
Author Name Unknown Organization [facility] Address [address] [place] [address] Phone [phone] Care Team Providers Care Test Specialist Name Role Phone John Newby MD Primary Care Provider [phone] Reason for Visit * Reason Onset Date Comments Medication Refill 09/27/2023 Encounter Details Date Type Department Care Team (Late st Contact Info) Description 09/24/2023 Refill Family Practice [facility] 132 [facility] [address] John Newby MD [address] [facility] [place] [id number] Allergies Active Allergy Reactions Criticality Noted Date Comments Acetaminophen 05/06/2005 headaches documented as of this encounter (statuses as of 09/27/2023) Medications Medication Sig Dispensed Refills Start Date [...] goal of less than 7.0% ([facility]) TEST ONCE DAILY 100 Strip [...] XL)Indications:SVT (supraventricular tachycardia) (HCC),NSVT (nonsustained ventricular tachycardia) ([facility] [...] Each 2 2023 11/09/19 24 Active Tiotropium [place] Monohydrate 18 MCG Inhalation Capsule (Spiriva HandiHaler) Inhale 1 Capsule by mouth in the morning. 30 Capsule 2 08/16/2023 11/17/19 24 Active Albuterol Sulfate HFA 108 (90 Base) MCG/ACT Inhalation Aerosol SolutionIndications :COPD, group D, by GOLD 2017 classification ([facility]) Inhale 2 Puffs by mouth [...] 24 Hour (Imdur)Indications: Coronary artery disease involving [place] coronary artery without angina pectoris TAKE ONE [...] classification ([facility]) Take 1 Tablet by mouth [...] as of this encounter (statuses as of 09/27/2023) Active Problems Problem Noted Date Diagnosed Date [...] tis 01/05/2014 Coronary artery disease invo lving [place] coronary artery of holy cross heart without angina pectoris 11/27/2013 Tobacco abuse 11/27/2013 HTN, goal below 130/80 03/06/2009 Overview: Modified per HTN protocol #16. documented as of this encounter (statuses as of 09/27/2023) Resolved Problems Problem Noted Date Diagnosed Date [...] as of this encounter (statuses as of 09/27/2023) Immunizations Name Administration Dates Next Due COVID-19 [...] encounter Miscellaneous Notes * Addendum Note - Aminah Hope CPhT - 09/27/2023 10:59 AM EDTAddended by: AMINAH HOPE on: 09/27/2023 10:59 AM Modules accepted: Orders * Telephone Encounter - Aminah Hope CPhT - 09/27/2023 10:59 AM EDT Pharmacy is requesting a 90-day supply, pre-edited RXs as such. Please review and approve if appropriate. Pending Prescriptions: Disp Refills Fluticasone Propionate 50 MCG/ACT Nasal S*48 g 1 Sig: USE TWO SPRAYS IN EACH NOSTRIL IN THE MORNING Last Visit: 07/19/2023 (in office), Visit date not found (telemedicine) 01/19/2024 If no future appointments scheduled, and last appointment is greater than a year ago, please schedule patient for an appointment Last date the medication was ordered: 09/24/2023 Patient Phone Numbers Labs: Lab Results Component Value Date/Time CREAT 1.3 (H) 09/02/2023 10:16 AM CREAT 1.2 11/30/2019 09:17 AM POTASSIUM 4.3 09/02/2023 10:16 AM POTASSIUM 4.2 11/30/2019 09:17 AM TSH 3.24 04/16/2023 03:45 PM TSH 1.55 10/07/2015 12:50 PM LDLCALC 96 04/16/2023 05:50 AM LDLCALC 110 11/30/2019 09:17 AM LDLCALC 231. (HH) 02/11/1996 09:20 AM LDLDIRECT NOT APPLICABLE 11/30/2019 09:17 AM LDLDIRECT 123 05/18/2016 03:54 PM ALT 21 09/02/2023 10:16 AM ALT 17 11/30/2019 09:17 AM ALT 38 02/11/1996 09:20 AM HGBA1C 6.0 (H) 04/16/2023 05:50 AM HGBA1C 6.1 (H) 11/30/2019 09:17 AM * Telephone Encounter - Marli Dowling [facility] - 09/24/2023 7:28 AM EDT Signed Prescriptions: Disp Refills Fluticasone Propionate 50 MCG/ACT Nasal Ku*16 g 1 Sig: USE TWO SPRAYS IN EACH NOSTRIL IN THE MORNINGAuthorizing Provider: JOHN NEWBY User: MARLI DOWLING documented in this encounter Plan of Treatment Upcoming Encounters Date Type Department Care Team (Late st Contact Info) Description 10/27/2023 11:00 AM EDT Office Visit Orthopaedics [facility] [address] [place] [address] Zander Wilkins DO [address] [place] [address] 12/01/2023 11:40 AM EDT Office Visit Podiatry [facility] [address] [place] [address] Bettye Herrmann, DPM [address] [place] [address] 01/18/2024 12:30 PM EDT Office Visit Sleep Disorders Ctr [facility] [address] [place] [phone] Hui Bishop CRNP [address] [place] [address] 01/19/2024 11:40 AM EDT Office Visit Family Practice [facility] [address] [place] [address] John Newby MD [address] [place] [address] 01/26/2024 10:00 AM EDT Imaging Radiology [facility] 1st [facility] [address] [place] [address] 02/01/2024 11:30 AM EDT Office Visit Radiation Oncology, [address] [place] [address] Shawna Johnson MD [address] [place] [address] [place] [address] 03/28/2024 9:30 AM EST Office Visit Cardiology, [facility] [address] [place] [address] Deisy Aguirre CRNP [address] [place] [address] Scheduled Procedures Name Priority Associated Diagnoses Date/Ti [...] Additional history exists CKD PHOS USE SMARTSET 54631 04/15/202403/20, 06/05/2022, 06/03/2021, Additional history exists CKD HGB USE SMARTSET 06808 09/01/202409/01, 09/02/2023, 06/03/2023, Additional history exists Colonoscopy [...] encounter Medical Devices Implanted Type Area Senior Account Representative Device Identifier Shelf Expiration Date Model / Serial / Lot Lens Intraoc 24.0 - [id number] - [id number] Implanted:Qty: 1 on 06/01/2017 by Nikhil Bolton MD at OR [facility] Left: Eye BAUSCH & LOMB 07/17/2021 [id number] / [id number] / [id number] Lens Intraoc 24.0 - [id number] - [id number] Implanted:Qty: 1 on 06/08/2017 by Nikhil Bolton MD at OR [facility] Right: Eye BAUSCH & LOMB 07/17/2021 [id number] / [id number] / [id number] documented as of this encounter Advance Directives Documents on File Type Date Recorded Patient Book Illustrator Expl anation Advance Directives and Yu Watkins [...] were consensually agreed upon. Care Teams Test Specialist Relationship Specialty Start Date End Date John Newby MD 132 [facility] [place] [address] PCP - General Family Medicine 09/13/20 documented as of this encounter
--- OUTSIDE RECORDS SUMMARY | 2023-12-14 20:11 | External Medical Summary | Summary of Care ---
Author Name Unknown Organization [facility] Address [address] [place] [address] Phone [phone] Care Team Providers Care Pediatric Audiologist Name Role Phone Johnnie Newby MD Primary Care Provider [phone] Encounter Details Date Type Department Care Team (Latest Contact Info) Description 09/19/2023 Medication Management [facility] C[facility] [address] [place], [place] [id number] Trina Kumar, [facility] [address] [place] [address] Referred for medication therapy management* Allergies Active Allergy Reactions Criticality Noted Date Comments Acetaminophen 05/06/2005 headaches documented as of this encounter (statuses as of 09/19/2023) Medications Medication Sig Dispensed Refills Start Date [...] goal of less than 7.0% ([facility]) TEST ONCE DAILY 100 Strip 5 [...] XL)Indications:SVT (supraventricular tachycardia) (HCC),NSVT (nonsustained ventricular tachycardia) ([facility]) TAKE ONE TABLET BY MOUTH EVERY DAY 90 Tablet 3 12/09/2022 4 Active Vitron-C 65-125 MG Oral Tablet (Iron-Vitamin C 65-125 mg per tab) Take 1 Tablet by mouth in the morning. Active Furosemide 40 MG Oral Tablet (Lasix)Indications:H [...] 60 Each 2 2023 4 Active Tiotropium [place] Monohydrate 18 MCG Inhalation Capsule (Spiriva HandiHaler) Inhale 1 Capsule by mouth in the morning. 30 Capsule 2 08/16/2023 4 Active Albuterol Sulfate HFA 108 (90 Base) MCG/ACT Inhalation Aerosol SolutionIndications: COPD, group D, by GOLD 2017 classification ([facility]) Inhale 2 Puffs by mouth every [...] LABS* 90 Capsule 2 09/17/2023 5 Active Hospital, Clinic, or Other Facility Administered Medication Ordered Dose Route Frequency Start Date End Date Status albuterol sulfate (PROVENTIL) (2.5 MG/3ML) 0.083% inhalation solution 2.5 mgIndications:COPD, severe (HCC) 2.5 mg NEBULIZER Q4H PRN 07/08/2018 Active documented as of this encounter (statuses as of 09/19/2023) Active Problems Problem Noted Date Diagnosed Date [...] as of this encounter (statuses as of 09/19/2023) Resolved Problems Problem Noted Date Diagnosed Date [...] as of this encounter (statuses as of 09/19/2023) Immunizations Name Administration Dates Next Due COVID-19 mRNA, LNP-s, No Pre serve, 2-Dose Series (Plan[employer] Ivy) 02/25/2023,02/10/2022,07/13/2020,06/17 Pneumococcal Conjugate Vacc, 13 Valent (Prevnar) [...] as of this encounter Progress Notes * Oanh Lozano, carpentry supervisor - 09/19/2023 6:12 PM EDT Walter Don is a 78 year old male. TMR Interventions TMR Patient Education - Safe Medication Use (Opioid Therapy): HYDROCO/APAP TAB 5-325MG Incomplete Encounter MTPs No medication therapy recommendations to display Complete Encounter MTPs Referred for medication therapy management Current Medication: HYDROcodone-Acetaminophen 5-325 MG Oral Tablet Rationale: Patient Education - Needs Education - Safety Recommendation: Provide Education Status: Patient Agreed Note: TMR for safe use of opioid therapy Assessment & Plan Indication, effectiveness, safety and convenience of his medications were reviewed today. The patient's medical conditions were assessed, evaluated, and deemed meeting goals of drug therapy, with thefollowing exceptions. ANDRÉS Norwood Tech 09/19/2023, 6:12 PM documented in this encounter Plan of Treatment Upcoming Encounters Date Type Department Care Team (Late st Contact Info) Description 10/27/2023 11:00 AM EDT Office Visit Orthopaedics [facility] 132 [facility] [place] [address] Zander Wilkins DO [address] [place] [address] 12/01/2023 11:40 AM EDT Office Visit Podiatry [facility] [address] [facility] [place] [address] Bettye Herrmann, [address] [place] [address] 01/18/2024 12:30 PM EDT Office Visit Sleep Disorders Ctr [facility] [address] [facility] [place] [phone] Hui Bishop CRNP 132 [facility] [place] [address] 01/19/2024 11:40 AM EDT Office Visit Family Practice [facility] [address] [facility] [place] [address] Johnnie Newby MD [address] [place] [address] 01/26/2024 10:00 AM EDT Imaging [facility] [address] [place] [address] 02/01/2024 11:30 AM EDT Office Visit Radiation Oncology, [address] [place] [address] Shawna Johnson MD [facility] [place] [address] 03/28/2024 9:30 AM EST Office Visit Cardiology, [facility] [address] [place] [address] Deisy Aguirre CRNP [address] [place] [address] Scheduled Procedures Name Priority Associated Diagnoses Date/Ti [...] Additional history exists CKD PHOS USE SMARTSET 73383 04/15/202403/20, 06/05/2022, 06/03/2021, Additional history exists CKD HGB USE SMARTSET 51121 09/01/202409/01, 09/02/2023, 06/03/2023, Additional history exists Colonoscopy [...] this encounter Medical Devices Implanted Type Area Reference Test Clerk Device Identifier Shelf Expiration Date Model / Serial / Lot Lens Intraoc 24.0 - [id number] - [id number] Implanted:Qty: 1 on 06/01/2017 by Nikhil Bolton MD at OR [facility] Left: Eye BAUSCH & LOMB 07/17/2021 [id number] / [id number] / [id number] Lens Intraoc 24.0 - [id number] - [id number] Implanted:Qty: 1 on 06/08/2017 by Nikhil Bolton MD at OR [facility] Right: Eye BAUSCH & LOMB 07/17/2021 [id number] / [id number] / [id number] documented as of this encounter Visit Diagnoses Diagnosis Referred for medication therapy management- Primary Encounter for long-term (current) use of other medications documented in this encounter Advance Directives Documents on File Type Date Recorded Patient Stockroom Selector Expl anation Advance Directives and Yu Rose/4/2006 ADVANCE DIRECTIVE * Full Code (Latest Code [...] and were consensually agreed upon. Care Teams Pediatric Audiologist Relationship Specialty Start Date End Date Johnnie Newby MD 132 [facility] [place] [address] PCP - General Family Medicine 09/13/20 documented as of this encounter
--- OUTSIDE RECORDS SUMMARY | 2023-12-14 20:11 | External Medical Summary | Summary of Care ---
Author Name Unknown Organization [facility] Address [address] [place] [address] Phone [phone] Care Team Providers Care Fishing Tackle Repairer Name Role Phone Johnnie Newby MD Primary Care Provider [phone] Reason for Visit * Reason Onset Date Comments Test Results 09/21/2023 Encounter Details Date Type Department Care Team (Late st Contact Info) Description 09/21/2023 Telephone Hematology/Oncology [facility] [place] [address] [place] [address] Services, Scheduling [address] [place] [address] Test Results Allergies Active Allergy Reactions Criticality [...] goal of less than 7.0% ([facility]) TEST ONCE DAILY 100 Strip 5 03/02/2018 [...] Hour (toPROL XL)Indications:SVT (supraventricular tachycardia) ([facility]),NSVT (nonsustained ventricular tachycardia) ([facility]) TAKE ONE TABLET BY MOUTH EVERY DAY [...] 60 Each 2 2023 4 Active Tiotropium [place] Monohydrate 18 MCG Inhalation Capsule (Spiriva HandiHaler) Inhale 1 Capsule by mouth in the morning. 30 Capsule 2 08/16/2023 4 Active Albuterol Sulfate HFA 108 (90 Base) MCG/ACT Inhalation Aerosol SolutionIndications: COPD, group D, by GOLD 2017 classification ([facility]) Inhale 2 Puffs by mouth every 6 [...] Hour (Imdur)Indications:C oronary artery disease involving [place] coronary artery without angina pectoris TAKE [...] tis 01/05/2014 Coronary artery disease invo lving [place] coronary artery of [place] heart without angina pectoris 11/27/2013 Tobacco [...] encounter Miscellaneous Notes * Telephone Encounter - Spencer LexieCHRISTOPHE Mason - 09/21/2023 2:56 PM EDT Results for [...] DIFFERENTIAL, TECHNOLOGIST REVIEW Result Value Ref Range [place] Cells Moderate (A) None Seen Ovalocytes Moderate [...] 10/27/2023 11:00 AM EDT Office Visit Orthopaedics [facility] [address] [place] [address] Zander Wilkins, [address] [place] [address] 12/01/2023 11:40 AM EDT Office Visit Podiatry [facility] [address] [place] [address] Bettye Herrmann, DPLiat [facility] [place] [address] 01/18/2024 12:30 PM EDT Office Visit Sleep Disorders Ctr [facility] 132 [facility] [place] [phone] Hui Bishop CRNP 132 [facility] [place] [address] 01/19/2024 11:40 AM EDT Office Visit Family Practice [facility] 132 [facility] [place] [address] Johnnie Newby MD 132 [facility] [place] [address] 01/26/2024 10:00 AM EDT Imaging Radiology [facility] 1st [facility] 132 [facility] [place] [address] 02/01/2024 11:30 AM EDT Office Visit Radiation Oncology, [address] [place] [address] Shawna Johnson MD [address] [place] [address] [place] [address] 03/28/2024 9:30 AM EST Office Visit Cardiology, [facility] 132 [facility] [place] [address] Deisy Aguirre CRNP 132 [facility] [place] [address] Scheduled Procedures Name Priority Associated Diagnoses Date/Ti [...] Additional history exists CKD PHOS USE SMARTSET 27800 04/15/202403/20, 06/05/2022, 06/03/2021, Additional history exists CKD HGB USE SMARTSET 22844 09/01/202409/01, 09/02/2023, 06/03/2023, Additional history exists Colonoscopy [...] encounter Medical Devices Implanted Type Area Automotive Mechanical Engineer Device Identifier Shelf Expiration Date Model / Serial / Lot Lens Intraoc 24.0 - [id number] - [id number] Implanted:Qty: 1 on 06/01/2017 by Nikhil Bolton MD at OR [facility] Left: Eye BAUSCH & LOMB 07/17/2021 [id number] / [id number] / [id number] Lens Intraoc 24.0 - [id number] - [id number] Implanted:Qty: 1 on 06/08/2017 by Nikhil Bolton MD at OR [facility] Right: Eye BAUSCH & LOMB 07/17/2021 [id number] / [id number] / [id number] documented as of this encounter Advance Directives Documents on File Type Date Recorded Patient Vocational Horticulture Instructor Expl 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 Care Teams Fishing Tackle Repairer Relationship Specialty Start Date End Date Johnnie Newby MD [address] [place] [address] PCP - General Family Medicine 09/13/20 documented as of this encounter
--- OUTSIDE RECORDS SUMMARY | 2023-12-14 20:11 | External Medical Summary | Summary of Care ---
Author Name Unknown Organization [facility] Address [address] [place] [address] Phone [phone] Care Team Providers Care Building Certifier Name Role Phone John Newby MD Primary Care Provider [phone] Reason for Visit * Reason Comments Medication Refill Encounter Details Date Type Department Care Team (Late st Contact Info) Description 09/18/2023 Refill Family Practice [facility] [address] [facility] [place] [address] John Newby MD [address] [place] [address] HTN, goal below 140/90 Allergies Active Allergy Reactions Criticality Noted Date Comments Acetaminophen 05/06/2005 headaches documented as of this encounter (statuses as of 09/20/2023) Medications Medication Sig Dispensed Refills Start Date [...] DAY 90 Tablet 3 12/09/2022 12/09/19 24 Active Vitron-C 65-125 MG Oral [...] Each 2 2023 11/09/19 24 Active Tiotropium [place] Monohydrate 18 MCG Inhalation Capsule (Spiriva HandiHaler) Inhale 1 Capsule by mouth in the morning. 30 Capsule 2 08/16/2023 11/17/19 24 Active Albuterol Sulfate HFA 108 (90 Base) MCG/ACT Inhalation Aerosol SolutionIndications :COPD, group D, by GOLD 2017 classification ([facility]) Inhale 2 Puffs by mouth every [...] the morning. 100 Tablet 1 09/20/2023 Active Furosemide 40 MG Oral Tablet (Lasix)Indications: HTN, goal below 140/90 Take 1 Tablet by mouth in the morning. 100 Tablet 1 01/15/2023 09/18/19 24 Discontinu ed(Refill) Hospital, Clinic, or Other Facility Administered Medication Ordered Dose Route Frequency Start Date End Date Status albuterol sulfate (PROVENTIL) (2.5 MG/3ML) 0.083% inhalation solution 2.5 mgIndications:COPD, severe (HCC) 2.5 mg NEBULIZER Q4H PRN 07/08/2018 Active documented as of this encounter (statuses as of 09/20/2023) Active Problems Problem Noted Date Diagnosed Date [...] as of this encounter (statuses as of 09/20/2023) Resolved Problems Problem Noted Date Diagnosed Date [...] as of this encounter (statuses as of 09/20/2023) Immunizations Name Administration Dates Next Due COVID-19 [...] Miscellaneous Notes * Telephone Encounter - Ricki Hoyt [facility] - 09/20/2023 9:59 AM EDTSigned Prescriptions: Disp Refills Furosemide 40 MG Oral Tablet (Lasix) 100 Ta*1 Sig: Take 1 Tablet by mouth in the morning.Authorizing Provider: JOHN NEWBY User: RICKI HOYT documented in this encounter Plan of Treatment Upcoming Encounters Date Type Department Care Team (Late st Contact Info) Description 10/27/2023 11:00 AM EDT Office Visit Orthopaedics [facility] [address] [place] [address] Zander Wilkins, [address] [place] [address] 12/01/2023 11:40 AM EDT Office Visit Podiatry [facility] [address] [place] [address] Bettye Herrmann, DPM [address] [place] [address] [place] [address] 01/18/2024 12:30 PM EDT Office Visit Sleep Disorders Ctr [facility] [address] [place] [phone] Hui Bishop CRNP [address] [place] [address] 01/19/2024 11:40 AM EDT Office Visit Family Practice [facility] [address] [place] [address] John Newby MD [address] [place] [address] 01/26/2024 10:00 AM EDT Imaging Radiology [facility] 1st Floor, [place] [address] [place] [address] 02/01/2024 11:30 AM EDT Office Visit Radiation Oncology, [address] [place] [address] Shawna Johnson MD [address] [place] [address] 03/28/2024 9:30 AM EST Office Visit Cardiology, [facility] [address] [place] [address] Deisy Aguirre CRNP [address] [place] [address] Scheduled Procedures Name Priority Associated Diagnoses Date/Ti me COLONOSCOPY FLEXIBLE PROXIMA L DIAGNOSTIC Recall History of colonic polyps Health Maintenance Due Date Last Done Comments DISCUSS TOBACCO CESSATION (REFER TO SMARTSET #1378) 05/01/2023 05/01/2022, 02/13/2022 COVID-19 Vaccine ( season) [...] Additional history exists CKD PHOS USE SMARTSET 20458 04/15/202403/20, 06/05/2022, 06/03/2021, Additional history exists CKD HGB USE SMARTSET 94312 09/01/202409/01, 09/02/2023, 06/03/2023, Additional history exists Colonoscopy [...] this encounter Medical Devices Implanted Type Area Board Finisher Device Identifier Shelf Expiration Date Model / Serial / Lot Lens Intraoc 24.0 - [id number] - [id number] Implanted:Qty: 1 on 06/01/2017 by Nikhil Bolton MD at OR [facility] Left: Eye BAUSCH & LOMB 07/17/2021 [id number] / [id number] / [id number] Lens Intraoc 24.0 - [id number] - [id number] Implanted:Qty: 1 on 06/08/2017 by Nikhil Bolton MD at OR [facility] Right: Eye BAUSCH & LOMB 07/17/2021 [id number] / [id number] / [id number] documented as of this encounter Visit Diagnoses Diagnosis HTN, goal below 140/90 Unspecified essential hypertension documented in this encounter Advance Directives Documents on File Type Date Recorded Patient Drop Worker Expl anation Advance Directives and Yu fine [...] and were consensually agreed upon. Care Teams Building Certifier Relationship Specialty Start Date End Date John Newby MD [address] [address] PCP - General Family Medicine 09/13/20 documented as of this encounter
--- OUTSIDE RECORDS SUMMARY | 2023-12-14 20:11 | External Medical Summary | Summary of Care ---
Author Name Unknown Organization [facility] Address [address] [place] [address] Phone [phone] Care Team Providers Care Design And Sales Consultant Name Role Phone John Newby MD Primary Care Provider [phone] Reason for Visit * Reason Comments Medication Refill Encounter Details Date Type Department Care Team (Late st Contact Info) Description 09/17/2023 Refill Family Practice [facility] [address] [place] [address] John Newby MD [address] [place] [address] Gastroesophageal reflux disease without esophagitis Allergies Active Allergy Reactions Criticality Noted Date Comments Acetaminophen 05/06/2005 headaches documented as of this encounter (statuses as of 09/17/2023) Medications Medication Sig Dispensed Refills Start Date [...] Release 24 Hour (toPROL XL)Indications:SVT (supraventricular tachycardia) ([facility]),NSVT (nonsustained ventricular tachycardia) ([facility]) TAKE ONE TABLET BY MOUTH EVERY DAY 90 Tablet 3 12/09/2022 12/09/19 24 Active Vitron-C 65-125 MG Oral Tablet (Iron-Vitamin C 65-125 mg per tab) Take 1 Tablet by mouth in the morning. Active Furosemide 40 MG Oral Tablet (Lasix)Indications: [...] Each 2 2023 11/09/19 24 Active Tiotropium Custer Monohydrate 18 MCG Inhalation Capsule (Spiriva HandiHaler) Inhale 1 Capsule by mouth in the morning. 30 Capsule 2 08/16/2023 11/17/19 24 Active Albuterol Sulfate HFA 108 (90 Base) MCG/ACT Inhalation Aerosol SolutionIndications :COPD, group D, by GOLD 2017 classification ([facility]) [...] 24 Hour (Imdur)Indications: Coronary artery disease involving [place] coronary artery without angina pectoris TAKE ONE TABLET BY MOUTH EVERY MORNING 100 Tablet 3 08/30/2023 08/30/19 25 Active Budesonide 0.25 MG/2ML Inhalation Suspension (Pulmicort) Inhale 0.25 mg via nebulizer 2 times a day as needed for Dyspnea or Wheezing. 160 mL 3 08/31/2023 02/07/20 24 Active Roflumilast 500 MCG Oral Tablet (Daliresp)Indicatio ns:COPD, group D, by GOLD 2017 classification ([facility]) Take 1 Tablet by mouth [...] 90 Capsule 2 09/17/2023 09/17/19 25 Active Omeprazole 20 MG Oral Capsule Delayed Release (PriLOSEC)Indicatio ns:Gastroesophageal reflux disease without esophagitis TAKE ONE CAPSULE BY MOUTH EVERY MORNING *NEED UPDATED LABS* 90 Capsule 1 03/21/2023 09/17/19 24 Discontinu ed(Refill) Hospital, Clinic, or Other Facility Administered Medication Ordered Dose Route Frequency Start Date End Date Status albuterol sulfate (PROVENTIL) (2.5 MG/3ML) 0.083% inhalation solution 2.5 mgIndications:COPD, severe (HCC) 2.5 mg NEBULIZER Q4H PRN 07/08/2018 Active documented as of this encounter (statuses as of 09/17/2023) Active Problems Problem Noted Date Diagnosed Date [...] tis 01/05/2014 Coronary artery disease invo lving [place] coronary artery of [place] heart without angina pectoris 11/27/2013 Tobacco abuse 11/27/2013 HTN, goal below 130/80 03/06/2009 Overview: Modified per HTN protocol #16. documented as of this encounter (statuses as of 09/17/2023) Resolved Problems Problem Noted Date Diagnosed Date [...] as of this encounter (statuses as of 09/17/2023) Immunizations Name Administration Dates Next Due COVID-19 [...] encounter Miscellaneous Notes * Telephone Encounter - Theresa Ojeda RPh - 09/17/2023 8:26 PM EDTSigned Prescriptions: Disp Refills Omeprazole 20 MG Oral Capsule Delayed Rele*90 Cap*2 Sig: TAKE ONE CAPSULE BY MOUTH EVERY MORNING *NEED UPDATED LABS*Authorizing Provider: JOHN NEWBY User: THERESA OJEDA documented in this encounter Plan of Treatment Upcoming Encounters Date Type Department Care Team (Late st Contact Info) Description 10/27/2023 11:00 AM EDT Office Visit Orthopaedics [facility] [address] [place] [address] Zander Wilkins DO [address] [place] [address] 12/01/2023 11:40 AM EDT Office Visit Podiatry [facility] [address] [place] [address] Bettye Herrmann, DPM [address] [place] [address] 01/18/2024 12:30 PM EDT Office Visit Sleep Disorders Ctr [facility] [address] [place] [phone] Hui Bishop CRNP [address] [place] [address] 01/19/2024 11:40 AM EDT Office Visit Family Practice [facility] [address] [place] [address] John Newby MD [address] [place] [address] 01/26/2024 10:00 AM EDT Imaging Radiology [facility]st [facility] [address] [place] [address] 02/01/2024 11:30 AM EDT Office Visit Radiation Oncology, [place] [address] [address] [place] [address] Shawna Johnson MD [address] [place] [address] 03/28/2024 9:30 AM EST Office Visit Cardiology, [facility] [address] [place] [address] Deisy Aguirre CRNP [address] [place] [address] Scheduled Procedures Name Priority Associated Diagnoses Date/Ti [...] Additional history exists CKD PHOS USE SMARTSET 25609 04/15/202403/20, 06/05/2022, 06/03/2021, Additional history exists CKD HGB USE SMARTSET 87071 09/01/202409/01, 09/02/2023, 06/03/2023, Additional history exists Colonoscopy [...] this encounter Medical Devices Implanted Type Area Media Relations Intern Device Identifier Shelf Expiration Date Model / Serial / Lot Lens Intraoc 24.0 - [id number] - [id number] Implanted:Qty: 1 on 06/01/2017 by Nikhil Bolton MD at OR [facility] Left: Eye BA[employer] LOMB 07/17/2021 [id number] / [id number] / [id number] Lens Intraoc 24.0 - [id number] - [id number] Implanted:Qty: 1 on 06/08/2017 by Nikhil Bolton MD at OR [facility] Right: Eye BA[employer]CH [employer] LOMB 07/17/2021 [id number] / [id number] / [id number] documented as of this encounter Visit Diagnoses Diagnosis Gastroesophageal reflux disease without esophagitis Esophageal reflux documented in this encounter Advance Directives Documents on File Type Date Recorded Patient Tennis Net Maker Expl jeanie Advance Directives and Yu Watkins [...] and were consensually agreed upon. Care Teams Design And Sales Consultant Relationship Specialty Start Date End Date John Newby MD [address] [facility] [place] [address] PCP - General Family Medicine 09/13/20 documented as of this encounter
--- OUTSIDE RECORDS SUMMARY | 2023-12-14 20:11 | External Medical Summary | Summary of Care ---
Author Name Unknown Organization [facility] Address [address] [place] [address] Phone [phone] Care Team Providers Care It Infrastructure Manager Name Role Phone Johnnie Newby MD Primary Care Provider [phone] Reason for Referral * Evaluate & Treat - Unlimited Visits (Within 10 days (routine)) - Authorized Specialty Diagnoses / Procedures Referred By Treva judd Referred To Contact Sports Medicine / Orthopedics Diagnoses Right knee pain Prepatellar bursitis of right knee Sharer, Charline Charlton PA-C [address] [place] [address] Referral ID Status Reason Start Date Expiration Date Visits Requested Visits Authorized [id number] Authorized Specialty Services Required 10/01/2023 999 999 Question Answer What body part is the patient being seen for? Thigh/Knee What condition is the patient being seen for? Sprain/Strain/Tear/Other Referral Priority Within 10 days (routine) Where should this appointment be scheduled? [facility] Reason for Visit * Reason Comments Pain Pt is in for right k nee pain that occurred yesterday. Pt states pain is on knee cap and hot to the touch. Pt also states swelling. Pt states he woke up and started feeling pain. Pt has taken tramadol and has not noticed improvements. Pt states pain is a 3/10 while sitting and 10/10 while walking. Encounter Details Date Type Department Care Team (Latest Contact Info) Description 10/01/2023 11:15 AM EDT Office Visit Orthopaedics [facility] [address] [place] [address] Sharer, Charline Charlton PA-C [address] [place] [address] Prepatellar bursitis of right knee*; Chronic pain of right knee; Primary osteoarthritis of right knee Allergies Active Allergy Reactions Criticality Noted Date Comments Acetaminophen 05/06/2005 headaches documented as of this encounter (statuses as of 10/04/2023) Medications Medication Sig Dispensed Refills Start Date [...] A1c goal of less than 7.0% ([facility]) TEST ONCE DAILY 100 Strip 5 03/02/2018 Active BiPAP every night at bedtime. Active Vitamin B-12 1000 MCG Oral Tablet (Cyanocobalamin) Take 1 Tablet by mouth in the morning. Active Metoprolol Succinate ER 25 MG Oral Tablet Extended Release 24 Hour (toPROL XL)Indications:SVT (supraventricular tachycardia) (HCC),NSVT (nonsustained ventricular tachycardia) ([facility] [...] 60 Each 2 2023 4 Active Tiotropium Only Monohydrate 18 MCG Inhalation Capsule (Spiriva HandiHaler) [...] 24 Hour (Imdur)Indications:C oronary artery disease involving [place] tribe coronary artery without angina pectoris TAKE [...] ([facility]) Take 1 Tablet by mouth in [...] as of this encounter (statuses as of 10/04/2023) Active Problems Problem Noted Date Diagnosed Date [...] tis 01/05/2014 Coronary artery disease invo lving [place] coronary artery of [place] tribe heart without angina pectoris 11/27/2013 Tobacco abuse 11/27/2013 HTN, goal below 130/80 03/06/2009 Overview: Modified per HTN protocol #16. documented as of this encounter (statuses as of 10/04/2023) Resolved Problems Problem Noted Date Diagnosed Date [...] as of this encounter (statuses as of 10/04/2023) Immunizations Name Administration Dates Next Due COVID-19 [...] Pressure - - Pulse - - Temperature 37.1 C (98.7 F) 10/01/2023 11:15 AM E DT Respiratory Rate - - Oxygen Saturation - - Inhaled Oxygen Concentration - - Weight - - Height - - Body Mass Index - - documented in this encounter Functional Status Functional [...] No 04/15/2023 documented as of this encounter Patient Instructions * Patient Instructions* Charline Mckeon PA-C - 10/01/2023 12:17 PM EDT documented in this encounter Progress Notes * Charline Mckeon PA-C - 10/04/2023 8:25 AM EDT Walter Don is a 78 year old male who presents for consultation to [facility] for right knee injury/pain. Consult requested by Self. Walter Don is here unaccompanied History: Walter Don reports that right knee pain started Yesterday. He denies any injury. Reports acute onset. Notes pain redness and swelling to the anterior knee. Patient feels pain is not within the joint but on anterior knee. Pain worsens with any knee motion. Reports difficulty with ambulation. Admits a history of osteoarthritis. Review of systems: All others negative except those noted above in HPI. Review of patient's allergies indicates: Allergen Reactions Tylenol [Acetaminophen] headaches Current Outpatient Medications Medication Sig Dispense Refill Cephalexin 500 MG Oral Capsule Take 1 Capsule by mouth in the morning and 1 Capsule at noon and 1 Capsule before bedtime. Do all this for 14 days. 42 Capsule 0 DAILY MULTIVITAMIN PO TABS Take 1 Tablet by mouth daily. BUSPAR 15 MG PO TABS Take 1 Tablet by mouth daily as needed. clonazePAM (KLONOPIN) 0.5 MG Tablet Take 1 Tablet by mouth daily as needed. 0 [employer] InternationalTOUCH ULTRA BLUE STRP TEST ONCE DAILY 100 [...] Puff before bedtime. 60 Each 2 Tiotropium Only Monohydrate 18 MCG Inhalation Capsule (Spiriva HandiHaler) [...] goal below 130/80 Coronary artery disease involving s[place] tribe coronary artery of [place] tribe heart without angina pectoris Tobacco abuse PTSD (post-traumatic stress disorder) Gastroesophageal reflux disease without esophagitis Type 2 diabetes mellitus with hemoglobin A1c goal of less than 8.0% ([facility]) YISSEL treated with BiPAP Peripheral arterial disease [...] performed by Warren Patel [place] [facility] [place]ONOSCOPY THRU STOMA, W/BIOPSY 05/28/2010 andenomatous tissue--repeat in 3 months COLONOSCOPY THRU STOMA, W/BIOPSY 09/18/2010 adenomatous-repeat colonoscopy in 3-6 months COLONOSCOPY THRU STOMA, W/BIOPSY 04/09/2011 polyps x3 , path shows adenomatous tissue repeat in 1 years COLONOSCOPY, DIAGNOSTIC (RECTUM) 05/20/2016 adenomatous polyps, poor prep, diverticulosis, repeat 3 yrs/[facility] COLONOSCOPY, DIAGNOSTIC (RECTUM) 06/06/2019 hemorrhoids/diverticulosis sigmoid and descending colon/small AVM/biopsies show adenomatous polyps/recall 6-9 months/COLONOSCOPY FLEXIBLE PROXIMAL DIAGNOSTIC performed by Clemencia [facility]elli [facility] COLONOSCOPY, DIAGNOSTIC (RECTUM) 03/05/2022 benign adenomatous polyp, repeat 1 yr / COLONOSCOPY FLEXIBLE PROXIMAL DIAGNOSTIC performed by Clemencia Marinelli MD at [facility] COLONOSCOPY, DIAGNOSTIC (RECTUM) 01/14/2023 hemorrhoids/diverticulosis/biopsies show hyperplastic polyps/recall 2 years/COLONOSCOPY FLEXIBLE PROXIMAL DIAGNOSTIC performed by Destiny Mojica DO at [facility] CORONARY ANGIOGRAPHY W/LEFT HEART CATH Right 04/16/2023 CORONARY ANGIOGRAPHY W/LEFT HEART CATH performed by Maria G Lance MD [place] [facility] DESTROY LUMBAR SACRAL NERVE IMAGING ADD'L 01/27/2023 DESTROY LUMBAR SACRAL NERVE IMAGING ADD'L performed by Pb Alexander DO at OR [facility] DESTROY LUMBAR SACRAL NERVE IMAGING SINGLE 01/27/2023 DESTROY LUMBAR SACRAL NERVE IMAGING SINGLE performed by Pb Alexander DO at OR [facility] EGD, FLEXIBLE, DIAGNOSTIC 01/14/2023 gsatric polyp/ESOPHAGOGASTRODUODENOSCOPY (EGD), FLEXIBLE, TRANSORAL, DIAGNOSTIC performed by Phong Mojica DO at [facility] L-/S-SPINE PARAVERTEBRAL FACET INJ,1 LEVEL 11/25/2022 L-/S-SPINE PARAVERTEBRAL FACET INJ, 1 LEVEL performed by Pb Alexander DO at OR [facility] L-/S-SPINE PARAVERTEBRAL FACET INJ,1 LEVEL 01/06/2023 L-/S-SPINE PARAVERTEBRAL FACET INJ, 1 LEVEL performed by Pb Alexander DO at OR [facility] L-/S-SPINE PARAVERTEBRL FACET INJ,2 LEVELS 11/25/2022 L-/S-SPINE PARAVERTEBRAL FACET INJ, 2 LEVELS performed by Pb Alexander DO at [facility] L-/S-SPINE PARAVERTEBRL FACET INJ,2 LEVELS 01/06/2023 L-/S-SPINE PARAVERTEBRAL FACET INJ, 2 LEVELS performed by Pb Alexander DO at [facility] MISCELLANEOUS ORDER ([facility] ONLY) 1998 henria repair OTHER (INFORMATION) pilonidal cyst removal OTHER (INFORMATION) repair of bilateral shoulder for bone spur and repair of torn muscles right shoulder REMOVE CATARACT, INSERT LENS PROSTH Left 06/01/2017 left EXTRACAPSULAR CATARACT REMOVAL WITH INTRAOCULAR LENS performed by Nikhil Bolton MD at [facility] REMOVE CATARACT, INSERT LENS PROSTH Right 06/08/2017 right EXTRACAPSULAR CATARACT REMOVAL WITH INTRAOCULAR LENS performed by Nikhil Bolton MD at OR [facility] Social History Socioeconomic History Marital status: [...] file Food Insecurity: No Food Insecurity (2023) Hunger Vital Sign Worried About Running Out of Food in the Last Year: Never true Ran Out of Food in the Last Year: Never true Transportation Needs: Not on file Physical Activity: Not on file Stress: Not on file Social Connections: Not on file Intimate Partner Violence: Not on file Housing Stability: Not on file Family History Problem Relation [...] Label now now now now now now [place] Quality of Life Survey Physical (Pt Reported) 33.1993 24.6319 24.4892 [place] Quality of Life Survey Mental (Pt Reported) 45.2634 39.1357 41.4411 Short Form 12 Quality of Life survey Physical Health (Pt Reported) 29.5716 23.2853 24.6584 Short Form 12 Quality of Life survey Mental Health (Pt Reported) 43.0849 39.5854 40.8124 International Knee Documentation Committee Computer Adapted Test (Pt Reported) 32.4049 Current Pain 5 1 Physical Exam Filed Vitals: 10/01/23 1115 Temp: 37.1 C (98.7 F) Estimated body mass index is 28.55 kg/m [...] flat indoor surface. Knee Exam, Bilateral Inspection: localized area of swelling and erythema along the anterior knee. No effusion. Palpation: tenderness to palpation anterior knee on the right ROM: Flexion/Neutral/Extension: L - 120/0/0, R - 100/0/0 Popliteal Angle (Hamstring Flexibility): 30 Bilateral Strength: R- Strength: Extension - 5/5 Flexion - 5/5 L - Strength: Extension - 5/5 Flexion - 5/5 quadriceps tone is Good Special Tests: ACL: Sky - negative Bilateral Ant Drawer - negative Bilateral Post Drawer - negative Bilateral MCL: Medial Opening @ 30: negative Bilateral LCL: Lateral Opening @ 30: negative Bilateral Radiology (I have personally reviewed the following films): X-ray of the right knee was reviewed with patient. Those x-rays show significant compartment joint space narrowing and marginal osteophytes. Most notable in the medial compartment. Assessment and Plan: Prepatellar bursitis of right knee (Primary) - XR KNEE 4 OR MORE VIEWS - Cephalexin 500 MG Oral Capsule; Take 1 Capsule by mouth in the morning and 1 Capsule at noon and 1 Capsule before bedtime. Do all this for 14 days. - SPORTS [facility]ICINE REFERRAL OP Right knee pain - XR KNEE 4 OR MORE VIEWS - Cephalexin 500 MG Oral Capsule; Take 1 Capsule by mouth in the morning and 1 Capsule at noon and 1 Capsule before bedtime. Do all this for 14 days. - SPORTS MEDICINE REFERRAL OP Primary osteoarthritis of right knee Follow Up: Return for knee bursitis Follow-up with Dr Lin, Dr Wilkins, or Dr Griffith in 3-5 days. Charline Mckeon PA-C [facility] [address] [place] [address] documented in this encounter Nursing Notes * Xena Del Real, MED ASSIST - 10/01/2023 11:14 AM EDT Pt is here for right knee pain. Pt states no fall or injury. Pt states it is hot to the touch and noticed swelling. Pt states while sitting pain is a 4/10 and while attempting to walk it is a 10/10. documented in this encounter Plan of Treatment Upcoming Encounters Date Type Department Care Team (Late st Contact Info) Description 10/05/2023 2:00 PM EDT Office [facility] [place] [address] Sharer, Charline Charlton PA-C [address] [place] [address] 10/27/2023 11:00 AM EDT Office Visit Orthopaedics [facility] [address] [place] [address] Zander Wilkins DO [address] [place] [address] 12/01/2023 11:40 AM EDT Office Visit Podiatry [facility] 132 [facility] [place] [address] Bettye Herrmann, [address] [address] 01/18/2024 12:30 PM EDT Office Visit Sleep Disorders Ctr [facility] [address] [facility] [place] [phone] Hui Bishop CRNP [address] [place] [address] 01/19/2024 11:40 AM EDT Office Visit Family Practice [facility] [address] [place] [address] Johnnie Newby MD [address] [place] [address] 01/26/2024 10:00 AM EDT Imaging Radiology [facility]st [facility] [address] [facility] [place] [address] 02/01/2024 11:30 AM EDT Office Visit Radiation Oncology, [address] [place] [address] Shawna Johnson MD [address] [place] [address] [place] [address] 02/07/2024 10:30 AM EDT Imaging Radiology, [place] [address] [place] [address] 02/16/2024 10:30 AM EDT Office Visit Vascular Surgery, [facility] 132 [facility] [place] [address] [facility]il [facility] [address] [facility] [address] 03/28/2024 9:30 AM EST Office Visit Cardiology, [facility] 132 [facility] [place] [address] Deisy Aguirre CRNP 132 [facility] [place] [address] Scheduled Procedures Name Priority Associated Diagnoses Date/Ti [...] Additional history exists CKD PHOS USE SMARTSET 53571 04/15/202403/20, 06/05/2022, 06/03/2021, Additional history exists Depression Monitoring 04/22/2024 04/22/2023 CKD HGB USE SMARTSET 25943 09/01/202409/01, 09/02/2023, 06/03/2023, Additional history exists Colonoscopy [...] this encounter Medical Devices Implanted Type Area Glaze Handler Device Identifier Shelf Expiration Date Model / Serial / Lot Lens Intraoc 24.0 - [id number] - [id number] Implanted:Qty: 1 on 06/01/2017 by Nikhil Bolton MD at OR [facility] Left: Eye [employer]CH [employer] LOMB 07/17/2021 [id number] / [id number] Lens Intraoc 24.0 - [id number] - [id number] Implanted:Qty: 1 on 06/08/2017 by Nikhil Bolton MD at OR [facility] Right: Eye BAUSCH [employer] LOMB 07/17/2021 [id number] / [id number] / [id number] documented as of this encounter Procedures Procedure Name Priority Date/Time Associated Diagnosis Comments XR KNEE 4 OR MORE VIEWS Routine 10/01/2023 11:52 AM EDT Chronic pain of right knee Prepatellar bursitis of right knee documented in this encounter Results * XR KNEE 4 OR MORE VIEWS (10/01/2023 11:52 AM EDT) Anatomical Region Laterality Modality Knee, Lower Extremity Digital Ra diography 10/03/2023 12:3 8 PM EDT Impressions 10/03/2023 12:36 PM EDT IMPRESSION Severe medial compartment osteoarthritis. No acute findings. Narrative 10/03/2023 12:36 PM EDT EXAM RT XR KNEE 4 OR MORE VIEWS - 10/01/2023 11:52 am HISTORY right knee pain COMPARISON Radiographs 06/05/2022. TECHNIQUE Four views FINDINGS No fracture. Severe medial compartment osteoarthritis with joint space narrowing and tricompartmental marginal osteophyte formation. Genu varum. Small joint effusion. Prominent enthesophyte along the inferior pole of the patella with mild prepatellar soft tissue swelling. Atherosclerotic vascular calcification. Procedure Note Ricki uMnoz MD - 10/03/2023 EXAM RT XR KNEE 4 OR MORE VIEWS - 10/01/2023 11:52 am HISTORY right knee pain COMPARISON Radiographs 06/05/2022. TECHNIQUE Four views FINDINGS No fracture. Severe medial compartment osteoarthritis with joint spacenarrowing and tricompartmental marginal osteophyte formation. Genu varum.Small joint effusion. Prominent enthesophyte along the inferior pole ofthe patella with mild prepatellar soft tissue swelling. Atheroscleroticvascular calcification. IMPRESSION IMPRESSION Severe medial compartment osteoarthritis. No acute findings. Charline Latesha Sharer PA-C RADIOLOGY ([facility]) documented in this encounter Visit Diagnoses Diagnosis Prepatellar bursitis of right knee- Primary Prepatellar bursitis Chronic pain of right knee Primary osteoarthritis of right knee Primary localized osteoarthrosis, lower leg documented in this encounter Advance Directives Documents on File Type Date Recorded Patient Bobbin Winder Expl anation Advance Directives and Yu Watkins [...] Date Johnnie Newby MD [address] [place] [address] PCP - General Family Medicine 09/13/20 documented as of this encounter
--- OUTSIDE RECORDS SUMMARY | 2023-12-14 20:12 | External Medical Summary | Summary of Care ---
Author Name Unknown Organization [facility] Address [address] [place] [address] Phone [phone] Care Team Providers Care Covering Machine Operator Helper Name Role Phone Johnnie Newby MD Primary Care Provider [phone] Reason for Visit * Reason Comments Medication Refill Encounter Details Date Type Department Care Team (Late st Contact Info) Description 09/15/2023 Refill Pulmonary Medicine, [facility] [address] [place] [facility] [place] [address] Hi Dave MD [address], [place] [id number] COPD, group D, by GOLD 2017 classification ([facility]) Allergies Active Allergy Reactions Criticality Noted Date Comments Acetaminophen 05/06/2005 headaches documented as of this encounter (statuses as of 09/15/2023) Medications Medication Sig Dispensed Refills Start Date End Date Status DAILY MULTIVITAMIN PO TABS Take 1 Tablet by mouth daily. Active BUSPAR 15 MG PO TABS Take 1 Tablet by mouth daily as needed. Active clonazePAM (KLONOPIN) 0.5 MG Tablet Take 1 Tablet by mouth daily as needed. 0 06/17/2016 Active NowForceUCH ULTRA BLUE STRPIndications:Typ e 2 diabetes mellitus [...] Active Additional Information Patient not taking.Reported on 08/09/2023 Omeprazole 20 MG Oral Capsule Delayed Release (PriLOSEC)Indicatio ns:Gastroesophageal reflux disease without esophagitis TAKE ONE CAPSULE BY MOUTH EVERY MORNING *NEED UPDATED LABS* 90 Capsule 1 03/21/2023 03/20/20 24 Active Nitroglycerin 0.4 MG Sublingual Tablet Sublingual [...] until symptoms resolve. 90 Tablet 07/21/2023 Active Atorvastatin Calcium 80 MG Oral Tablet (Lipitor) TAKE ONE TABLET BY MOUTH AT BEDTIME 90 Tablet 1 08/05/2023 08/05/19 25 Active Fluticasone-Salmete rol 250-50 MCG/ACT Inhalation Aerosol Powder Breath Activated (Advair Diskus) Inhale 1 Puff by mouth in the morning and 1 Puff before bedtime. 60 Each 2 2023 11/09/19 24 Active Tiotropium [place] Monohydrate 18 MCG Inhalation Capsule (Spiriva HandiHaler) Inhale 1 Capsule by mouth in the morning. 30 Capsule 2 08/16/2023 11/17/19 24 Active Albuterol Sulfate HFA 108 (90 Base) MCG/ACT Inhalation Aerosol SolutionIndications :COPD, group D, by GOLD 2017 classification ([facility]) Inhale 2 Puffs by mouth every 6 hours as needed for Dyspnea or Wheezing. 18 g 5 08/17/2023 Active busPIRone HCl 15 MG Oral Tablet (Buspar) take 1 tablet by mouth four times daily as needed for anxiety 360 Tablet 08/24/2023 Active Mirtazapine 15 MG Oral Tablet (Remeron) [...] 24 Hour (Imdur)Indications: Coronary artery disease involving [place] coronary artery without angina pectoris TAKE ONE TABLET BY MOUTH EVERY MORNING 100 Tablet 3 08/30/2023 08/30/19 25 Active methylPREDNISolone 4 MG Oral Tablet Therapy Pack (Medrol Dosepack) follow package directions 21 Tablet 08/30/2023 Active Budesonide 0.25 MG/2ML Inhalation Suspension (Pulmicort) Inhale 0.25 mg via nebulizer 2 times a day as needed for Dyspnea or Wheezing. 160 mL 3 08/31/2023 02/07/20 24 Active Roflumilast 500 MCG Oral Tablet (Daliresp)Indicatio ns:COPD, group D, by GOLD 2017 classification ([facility]) Take 1 Tablet by mouth in the morning. 30 Tablet 2 09/15/2023 12/14/19 24 Active Roflumilast 500 MCG Oral Tablet (Daliresp)Indicatio ns:COPD, group D, by GOLD 2017 classification ([facility]) Take 1 Tablet by mouth in the morning. 30 Tablet 2 2023 09/15/19 24 Discontinu ed(Refill) Hospital, Clinic, or Other Facility Administered Medication Ordered Dose Route Frequency Start Date End Date Status albuterol sulfate (PROVENTIL) (2.5 MG/3ML) 0.083% inhalation solution 2.5 mgIndications:COPD, severe (HCC) 2.5 mg NEBULIZER Q4H PRN 07/08/2018 Active documented as of this encounter (statuses as of 09/15/2023) Active Problems Problem Noted Date Diagnosed Date [...] tis 01/05/2014 Coronary artery disease invo lving nenana coronary artery of nenana heart without angina pectoris 11/27/2013 Tobacco abuse 11/27/2013 HTN, goal below 130/80 03/06/2009 Overview: Modified per HTN protocol #16. documented as of this encounter (statuses as of 09/15/2023) Resolved Problems Problem Noted Date Diagnosed Date [...] as of this encounter (statuses as of 09/15/2023) Immunizations Name Administration Dates Next Due COVID-19 mRNA, LNP-s, No Pre serve, 2-Dose Series ([place]) 02/25/2023,02/10/2022,07/13/2020,06/17 Pneumococcal Conjugate Vacc, 13 Valent (Prevnar) [...] Telephone Encounter - Hi Dave MD - 09/15/2023 7:27 PM EDT Signed Prescriptions: Disp Refills Roflumilast 500 MCG Oral Tablet (Daliresp) 30 Tab*2 Sig: Take 1 Tablet by mouth in the morning. Authorizing Provider: HI DAVE * Telephone Encounter - Ethel Ventura LPN - 09/15/2023 8:35 AM EDTPending Prescriptions: Disp Refills Roflumilast 500 MCG Oral Tablet (Daliresp) 30 Tab*2 Sig: Take 1Tablet by mouth in the morning. documented in this encounter Plan of Treatment Upcoming Encounters Date Type Department Care Team (Late st Contact Info) Description 09/16/2023 9:00 AM EDT Office Visit Cardiology, [facility] [address] [address] Deisy Aguirre CRNP [address] [place] [address] 10/19/2023 11:00 AM EDT Office Visit Cardiology, [facility] [address] [place] [address] Deisy Aguirre CRNP [address] [place] [address] 10/27/2023 11:00 AM EDT Office Visit Orthopaedics [facility] [address] [place] [address] Zander Wilkins, [address] [place] [address] 12/01/2023 11:40 AM EDT Office Visit Podiatry [facility] [address] [address] Bettye Herrmann, L[place] [address] [place] [address] [place] [address] 01/18/2024 12:30 PM EDT Office Visit Sleep Disorders Ctr [facility] [address] [place] [phone] Hui Bishop CRNP [address] [place] [address] 01/19/2024 11:40 AM EDT Office Visit Family Practice [facility] [address] [place] [address] Johnnie Newby MD [address] [place] [address] 01/26/2024 10:00 AM EDT Imaging Radiology [address] [place] [address] 02/01/2024 11:30 AM EDT Office Visit Radiation Oncology, [address] [place] [address] Shawna Johnson MD [address] [place] [address] [place] [address] Scheduled Procedures Name Priority Associated Diagnoses Date/Ti me COLONOSCOPY FLEXIBLE PROXIMA L DIAGNOSTIC Recall History of colonic polyps Health Maintenance Due Date Last Done Comments DISCUSS TOBACCO CESSATION (REFER TO SMARTSET #3292) 05/01/2023 05/01/2022, 02/13/2022 COVID-19 Vaccine ( season) [...] Additional history exists CKD PHOS USE SMARTSET 56849 04/15/202403/20, 06/05/2022, 06/03/2021, Additional history exists CKD HGB USE SMARTSET 54154 09/01/202409/01, 09/02/2023, 06/03/2023, Additional history exists Colonoscopy [...] this encounter Medical Devices Implanted Type Area Operating Table Assembler Device Identifier Shelf Expiration Date Model / Serial / Lot Lens Intraoc 24.0 - [id number] - [id number] Implanted:Qty: 1 on 06/01/2017 by Nikhil Bolton MD at OR [facility] Left: Eye [employer]CH [employer] LOMB 07/17/2021 [id number] / [id number] / [id number] Lens Intraoc 24.0 - [id number] - [id number] Implanted:Qty: 1 on 06/08/2017 by Nikhil Bolton MD at OR [facility] Right: Eye BAUSCH & LOMB 07/17/2021 [id number] / [id number] / [id number] documented as of this encounter Visit Diagnoses Diagnosis COPD, group D, by GOLD 2017 classification ([facility]) documented in this encounter Advance Directives Documents on File Type Date Recorded Patient Handhole Machine Operator Expl anation Advance Directives and Yu [...] and were consensually agreed upon. Care Teams Covering Machine Operator Helper Relationship Specialty Start Date End Date Johnnie Newby MD [address] [place] [address] PCP - General Family Medicine 09/13/20 documented as of this encounter
--- OUTSIDE RECORDS SUMMARY | 2023-12-14 20:12 | External Medical Summary | Summary of Care ---
Author Name Unknown Organization [facility] Address [address] [place] [address] Phone [phone] Care Team Providers Care House Decorator Name Role Phone Johnnie Newby MD Primary Care Provider [phone] Encounter Details Date Type Department Care Team (Late st Contact Info) Description 09/07/2023 Population Health External Data Unspecified Department Allergies Active Allergy Reactions Criticality Noted Date Comments Acetaminophen 05/06/2005 headaches documented as of this encounter (statuses as of 09/08/2023) Medications Medication Sig Dispensed Refills Start Date [...] bedtime. 60 Each 2 2023 4 Active Roflumilast 500 MCG Oral Tablet (Daliresp)Indication s:COPD, group D, by GOLD 2017 classification ([facility]) Take 1 Tablet by mouth in the morning. 30 Tablet 2 2023 4 Active Tiotropium [place] Monohydrate 18 MCG Inhalation Capsule (Spiriva HandiHaler) Inhale 1 Capsule by mouth in the morning. 30 Capsule 2 08/16/2023 4 Active Albuterol Sulfate HFA 108 (90 Base) MCG/ACT Inhalation Aerosol SolutionIndications: COPD, group D, by GOLD 2017 classification ([facility]) Inhale 2 Puffs by mouth [...] 24 Hour (Imdur)Indications:C oronary artery disease involving [place] coronary artery without angina pectoris TAKE ONE TABLET BY MOUTH EVERY MORNING 100 Tablet 3 08/30/2023 5 Active methylPREDNISolone 4 MG Oral Tablet Therapy Pack (Medrol Dosepack) follow package directions 21 Tablet 08/30/2023 Active Budesonide 0.25 MG/2ML Inhalation Suspension (Pulmicort) Inhale 0.25 mg via nebulizer 2 times a day as needed for Dyspnea or Wheezing. 160 mL 3 08/31/2023 4 Active Hospital, Clinic, or Other Facility Administered Medication Ordered Dose Route Frequency Start Date End Date Status albuterol sulfate (PROVENTIL) (2.5 MG/3ML) 0.083% inhalation solution 2.5 mgIndications:COPD, severe (HCC) 2.5 mg NEBULIZER Q4H PRN 07/08/2018 Active documented as of this encounter (statuses as of 09/08/2023) Active Problems Problem Noted Date Diagnosed Date [...] tis 01/05/2014 Coronary artery disease invo lving [place] coronary artery of [place] heart without angina pectoris 11/27/2013 Tobacco abuse 11/27/2013 HTN, goal below 130/80 03/06/2009 Overview: Modified per HTN protocol #16. documented as of this encounter (statuses as of 09/08/2023) Resolved Problems Problem Noted Date Diagnosed Date [...] as of this encounter (statuses as of 09/08/2023) Immunizations Name Administration Dates Next Due COVID-19 [...] Office Visit Cardiology, [facility] [address] [address] Deisy Aguirre CRNP [address] [place] [address] 10/19/2023 11:00 AM EDT Office Visit Cardiology, [facility] [address] [address] Deisy Aguirre CRNP [address] [place] [address] 10/27/2023 11:00 AM EDT Office Visit Orthopaedics [facility] [address] [address] Zander Wilkins, [address] [place] [address] 12/01/2023 11:40 AM EDT Office Visit Podiatry [facility] [address] [place] [address] Bettye Herrmann, DPLiat [address] [place] [address] 01/18/2024 12:30 PM EDT Office Visit Sleep Disorders Ctr [facility] [address] [place] [phone] Hui Bishop CRNP [address] [facility] [place] [address] 01/19/2024 11:40 AM EDT Office Visit Family Practice [facility] [address] [facility] [place] [address] Johnnie Newby MD [address] [facility] [place] [address] 01/26/2024 10:00 AM EDT Imaging Radiology [facility] [address] [place] [address] 02/01/2024 11:30 AM EDT Office Visit Radiation Oncology, [address] [place] [address] Shawna Johnson MD [address] [place] [address] [place] [address] Scheduled Procedures Name Priority Associated Diagnoses Date/Ti [...] Additional history exists CKD PHOS USE SMARTSET 20105 04/15/202403/20, 06/05/2022, 06/03/2021, Additional history exists CKD HGB USE SMARTSET 97121 09/01/202409/01, 09/02/2023, 06/03/2023, Additional history exists Colonoscopy [...] this encounter Medical Devices Implanted Type Area Public Relations Officer Device Identifier Shelf Expiration Date Model / Serial / Lot Lens Intraoc 24.0 - [id number] - [id number] Implanted:Qty: 1 on 06/01/2017 by Nikhil Bolton MD at OR [facility] Left: Eye BAUSCH [employer] LOMB 07/17/2021 [id number] / [id number] / [id number] Lens Intraoc 24.0 - [id number] - [id number] Implanted:Qty: 1 on 06/08/2017 by Nikhil Bolton MD at OR [facility] Right: Eye BAUSCH & LOMB 07/17/2021 [id number] / [id number] / [id number] documented as of this encounter Advance Directives Documents on File Type Date Recorded Patient Tool Filer Hand Expl anation Advance Directives and Yu fine [...] and were consensually agreed upon. Care Teams House Decorator Relationship Specialty Start Date End Date Johnnie Newby MD [address] [place] [address] PCP - General Family Medicine 09/13/20 documented as of this encounter
--- OUTSIDE RECORDS SUMMARY | 2023-12-14 20:12 | External Medical Summary ---
Author Name Unknown Address Unknown Organization [id number]:[facility] - [address] [facility] [id number] Laboratory Report Ordering Provider Test Date Status RAO PITTMAN 09/02/2023 10:16:54 Final Observation Date Value Abnormality Reference (Units ) Status SYNC LEUKOCYTES IN BLOOD BY AUTOMATED COUNT 09/02/2023 10:16:54 6.50 4.00-10.80 (K/uL) Final Segs 09/02/2023 10:16:54 77.8 Above high normal 40.0-75.0 (%) Final Lymphs % 09/02/2023 10:16:54 14.6 Below low normal 18.0-42.0 (%) Final Monos 09/02/2023 10:16:54 7.1 1.0-11.0 (%) Final Eosinophils 09/02/2023 10:16:54 0.0 0.0-6.0 (%) Final Basos 09/02/2023 10:16:54 0.2 0.0-2.0 (%) Final Immature Granulocyte, Percent 09/02/2023 10:16:54 0.3 0.0-2.0 (%) Final Absolute Segs 09/02/2023 10:16:54 5.06 1.80-7.70 (K/uL) Final Lymphs, absolute 09/02/2023 10:16:54 0.95 Below low normal 1.00-4.80 (K/ul) Final Monos, Abs 09/02/2023 10:16:54 0.46 0.00-1.10 (K/uL) Final Eos, Abs 09/02/2023 10:16:54 0.00 0.00-0.70 (K/uL) Final Basos, Abs 09/02/2023 10:16:54 0.01 0.00-0.20 (K/uL) Final Immature Granulocytes, Number 09/02/2023 10:16:54 0.02 0.00-0.20 (K/uL) Final Performing Location [facility] - [facility] [address] [place] [address]
--- OUTSIDE RECORDS SUMMARY | 2023-12-14 20:12 | External Medical Summary ---
Author Name Unknown Address Unknown Organization [id number]:[facility] [place] - [address] [place] [address] Laboratory Report Ordering Provider Test Date Status RAO PITTMAN 09/02/2023 10:16:54 Final Observation Date Value Abnormality Reference (Units ) Status BUN 09/02/2023 10:16:54 23 Above high normal 6-20 (mg/dL) Final Creatinine 09/02/2023 10:16:54 1.3 Above high normal 0.6-1.2 (mg/dL) Final Glomerular filtration rate/1.73 sq M.predicted [Volume Rate/Area] in Serum, Plasma or Blood by Creatinine-based formula (CKD-EPI) 09/02/2023 10:16:54 55 Below low normal >=60 (mL/min) Final eGFR is calculated based on the CKD-EPI 2020 equation Sodium 09/02/2023 10:16:54 143 135-146 (m mol/L) Final Potassium 09/02/2023 10:16:54 4.3 3.5-5.1 (m mol/L) Final Cl 09/02/2023 10:16:54 103 98-107 (mm ol/L) Final CO2 09/02/2023 10:16:54 25 22-32 (mmo l/L) Final Anion gap 09/02/2023 10:16:54 15 7-15 (mmol /L) Final Glucose 09/02/2023 10:16:54 136 Above high normal 70 -120 (mg/dL) Final Albumin 09/02/2023 10:16:54 4.1 3.8-5.0 (g /dL) Final AST (Aspartate aminotransferase) 09/02/2023 10:16:54 20 10-50 (U/L) Fin al Alk Phos 09/02/2023 10:16:54 118 35-130 (U/ L) Final Bilirubin, Total 09/02/2023 10:16:54 <0.2 <=1 .2 (mg/dL) Final Calcium 09/02/2023 10:16:54 9.7 8.4-10.2 ( mg/dL) Final Protein 09/02/2023 10:16:54 6.4 6.0-8.3 (g /dL) Final ALT (Alanine aminotransferase) 09/02/2023 10:16:54 21 10-50 (U/L) Michel palafox Performing Location [facility] [place] - [address] [facility] [address]
--- OUTSIDE RECORDS SUMMARY | 2023-12-14 20:12 | External Medical Summary | Summary of Care ---
Author Name Unknown Organization [facility] Address [address] [place] [address] Phone [phone] Care Team Providers Care Pool Table Operator Name Role Phone Johnnie Newby MD Primary Care Provider [phone] Reason for Visit * Reason Comments Follow Up Encounter Details Date Type Department Care Team (Late st Contact Info) Description 09/16/2023 9:00 AM EDT Office Visit Cardiology, [facility] [address] [place] [address] Deisy Aguirre CRNP [address] [place] [address] Cellulitis of finger of right hand*; Coronary artery disease involving eyak coronary artery of eyak heart without angina pectoris; PAF (paroxysmal atrial fibrillation) ([facility]); PVD (peripheral vascular disease) with claudication ([facility]); Moderate aortic stenosis; HTN, goal below 130/80 Allergies Active Allergy Reactions Criticality Noted Date Comments Acetaminophen 05/06/2005 headaches documented as of this encounter (statuses as of 09/16/2023) Medications Medication Sig Dispensed Refills Start Date End Date Status DAILY MULTIVITAMIN PO TABS Take 1 Tablet by mouth daily. Active BUSPAR 15 MG PO TABS Take 1 Tablet by mouth daily as needed. Active clonazePAM (KLONOPIN) 0.5 MG Tablet Take 1 Tablet by mouth daily as needed. 0 7 Active ONETOUCH ULTRA BLUE STRPIndications:Typ e 2 diabetes mellitus with hemoglobin A1c goal of less than 7.0% ([facility]) TEST ONCE DAILY 100 Strip 5 [...] 90 Tablet 3 3 12/09/19 24 Active Vitron-C 65-125 MG [...] Additional Information Patient not taking.Reported on 09/16/2023 Omeprazole 20 MG Oral Capsule Delayed Release (PriLOSEC)Indicatio ns:Gastroesophageal reflux disease without esophagitis TAKE ONE CAPSULE BY MOUTH EVERY MORNING *NEED UPDATED LABS* 90 Capsule 1 3 03/20/20 24 Active Nitroglycerin 0.4 MG Sublingual [...] the morning. 180 Tablet 3 4 Active HYDROcodone-Acetami nophen 5-325 MG Oral TabletIndications:S [...] MOUTH AT BEDTIME 90 Tablet 1 4 08/05/19 25 Active Fluticasone-Salmete rol 250-50 MCG/ACT Inhalation Aerosol Powder Breath Activated (Advair Diskus) Inhale 1 Puff by mouth in the morning and 1 Puff before bedtime. 60 Each 2 4 11/09/19 24 Active Tiotropium Warren Monohydrate 18 MCG Inhalation Capsule (Spiriva HandiHaler) Inhale 1 Capsule by mouth in the morning. 30 Capsule 2 4 11/17/19 24 Active Albuterol Sulfate HFA 108 (90 Base) MCG/ACT Inhalation Aerosol SolutionIndications :COPD, group D, by GOLD 2017 classification ([facility]) Inhale 2 Puffs by mouth every [...] mouth every night 90 Tablet 4 Active risperiDONE 0.5 MG Oral Tablet (RisperDAL) take 1 tablet by mouth twice daily 180 Tablet 4 Active LORazepam 2 MG Oral Tablet (Ativan) Take 1 Tablet by mouth every 6 hours as needed. Active Isosorbide Mononitrate ER 60 MG Oral Tablet Extended Release 24 Hour (Imdur)Indications: Coronary artery disease involving eyak coronary artery without angina pectoris TAKE ONE TABLET BY MOUTH EVERY MORNING 100 Tablet 3 4 08/30/19 25 Active Budesonide 0.25 MG/2ML Inhalation Suspension (Pulmicort) Inhale 0.25 mg via nebulizer 2 times a day as needed for Dyspnea or Wheezing. 160 mL 3 4 02/07/20 24 Active Roflumilast 500 MCG Oral Tablet (Daliresp)Indicatio ns:COPD, group D, by GOLD 2017 classification ([facility]) Take 1 Tablet by mouth in the morning. 30 Tablet 2 4 12/14/19 24 Active Cephalexin 500 MG Oral CapsuleIndications: Cellulitis of finger of right hand Take 1 Capsule by mouth in the morning and 1 Capsule before bedtime. 14 Capsule 4 Active Triamcinolone Acetonide 0.1 % External Cream (Aristocort)Indicat ions:Cellulitis of finger of right hand Apply topically to affected area 2 times a day. Apply to right hand 15 g 1 4 Active methylPREDNISolone 4 MG Oral Tablet Therapy Pack (Medrol Dosepack) follow package directions 21 Tablet 4 09/16/19 24 Discontinued Hospital, Clinic, or Other Facility Administered Medication Ordered Dose Route Frequency Start Date End Date Status albuterol sulfate (PROVENTIL) (2.5 MG/3ML) 0.083% inhalation solution 2.5 mgIndications:COPD, severe (HCC) 2.5 mg NEBULIZER Q4H PRN 07/08/2018 Active documented as of this encounter (statuses as of 09/16/2023) Active Problems Problem Noted Date Diagnosed Date [...] tis 01/05/2014 Coronary artery disease invo lving eyak coronary artery of eyak heart without angina pectoris 11/27/2013 Tobacco abuse 11/27/2013 HTN, goal below 130/80 03/06/2009 Overview: Modified per HTN protocol #16. documented as of this encounter (statuses as of 09/16/2023) Resolved Problems Problem Noted Date Diagnosed Date [...] as of this encounter (statuses as of 09/16/2023) Immunizations Name Administration Dates Next Due COVID-19 [...] Sign Reading Time Taken Comments Blood Pressure 116/64 09/16/2023 8:49 AM EDT Pulse 70 09/16/2023 8:49 AM EDT Temperature - - Respiratory Rate - - Oxygen Saturation - - Inhaled Oxygen Concentration - - Weight 90.3 kg (199 lb) 09/16/2023 8:49 AM EDT Height - - Body Mass Index 28.55 08/25/2023 12:52 PM EDT documented in this encounter Functional [...] as of this encounter Progress Notes * Deisy Aguirre CRNP - 09/16/2023 9:00 AM EDT 09/15/2023 Cardiology Follow Up Primary Collection Systems Modeler: Dr. Montoya Cardiac Problems: Coronary artery disease with significant two-vessel coronary artery disease and an occluded right coronary and left circumflex arteries with the only remaining artery being the LAD providing collaterals by cardiac catheterization 2005. Recent, March 2023, non STEMI with cardiac catheterization performed at [facility] revealed severe left main trunk disease not [...] COPD and continued smoking Iron deficiency anemia HPI: Walter Don is a 78 year old male presents for routine cardilogy follow up. Most recently seen in our office by Dr. Montoya 07/20/23 with discussion of goals of care in light thathis PCP has mentioned the concept of palliative care. Patient presents today feeling fair. He states that he is now on hospice s/t his lung cancer and other comorbidities. He endorses occasional chest achiness, not worse with exertion, feels "superficial". No change in his breathing. Overall he is pleased with making the decision to transition to hospice care and values the meaning of quality of life vs quality. Patient endorses an ongoing painful rash/skin irritation of the right hand with no known etiology. Increased warmth, erythema, painful to the touch. No discharge or drainage. Has not been on any antibiotics. Denies any trauma or injury. BP well controlled. Reports compliance on all medication therapies wit no untoward effects. REVIEW OF SYSTEMS: See [...] 1 Tablet by mouth in the morning. Apixaban 5 MG Oral Tablet (Eliquis) Take [...] 1 Tablet by mouth in the morning. Furosemide 40 MG Oral Tablet (Lasix) Take 1 Tablet by mouth in the morning. 100 Tablet 1 Fluticasone Propionate 50 MCG/ACT Nasal Suspension (Flonase) USE TWO SPRAYS IN EACH NOSTRIL IN THE MORNING 16 g 1 Omeprazole 20 MG Oral [...] needed for Pain, Severe. 90 Tablet 0 Atorvastatin Calcium 80 MG Oral Tablet (Lipitor) TAKE ONE TABLET BY MOUTH AT BEDTIME 90 Tablet 1 Fluticasone-Salmeterol 250-50 MCG/ACT Inhalation Aerosol Powder Breath Activated (Advair Diskus) Inhale 1 Puff by mouth in the morning and 1 Puff before bedtime. 60 Each 2 Tiotropium Warren Monohydrate 18 MCG Inhalation Capsule (Spiriva HandiHaler) Inhale 1 Capsule by mouth in the morning. 30 Capsule 2 Albuterol Sulfate HFA 108 (90 Base) MCG/ACT Inhalation Aerosol Solution Inhale 2 Puffs by mouth every 6 hours as needed for Dyspnea or Wheezing. 18 g 5 Mirtazapine 15 MG Oral Tablet (Remeron) take [...] Apply to right hand 15 g 1 busPIRone HCl 10 MG Oral Tablet (Buspar) take 1-2 tabs (10-20mg) by mouth twice daily as needed foranxiety (Patient not taking: Reported on 09/16/2023) 180 Tablet 0 Colchicine 0.6 MG Oral Tablet Take 2 tablets by mouth. One hour later, take 1 tablet by mouth. Take1 tablet by mouth once daily after until symptoms resolve. (Patient not taking: Reported on 09/16/2023) 90 Tablet 0 busPIRone HCl 15 MG Oral Tablet (Buspar) take 1 tablet by mouth four times daily as needed for anxiety (Patient not taking: Reported on 09/16/2023) 360 Tablet 0 Current Facility-Administered Medications Medication Dose [...] of inactive term Family History Problem Relation Name Age of Onset Cancer Mother colon Gastro-intestinal disorder Sister crohn's No Known Problems Father Heart disease Brother Heart disease Brother Social History Socioeconomic History Marital status: Tobacco Use Smoking status: Every Day Current packs/day: 1.50 Average packs/day: 1.5 packs/day for 69.0 years (103.5 ttl pk-yrs) Types: Cigarettes Smokeless tobacco: Never Tobacco comments: started age 7 Vaping Use Vaping status: Never Used Substance and Sexual Activity Alcohol use: No Drug use: No Social History Narrative No pets. No mold. Social Determinants of Health Food Insecurity: No Food Insecurity (2023) Hunger Vital Sign Worried About Running Out of Food in the Last Year: Never true Ran Out of Food in the Last Year: Never true OBJECTIVE/PHYSICAL EXAMINATION: BP 116/64 | Pulse 70 | Wt 90.3 kg (199 lb) | BMI 28.55 kg/m | BSA 2.11 m General: No acute distress. A+Ox3. HEENT: [...] Ventricular Bigeminy and Trigeminy were present. ASSESSMENT/PLAN: 78 year old year old male 1. Cellulitis of finger of right hand - Cephalexin 500 MG Oral Capsule; Take 1 Capsule by mouth in the morning and 1 Capsule before bedtime. Dispense: 14 Capsule; Refill: 0 - Triamcinolone Acetonide 0.1 % External Cream (Aristocort); Apply topically to affected area 2 times a day. Apply to right hand Dispense: 15 g; Refill: 1 2. Coronary artery disease involving eyak coronary artery of eyak heart without angina pectoris -Patient reports is stable. -Continue with Atorvastatin, Plavix, Eliquis, Imdur and Toprol xl 3. PAF (paroxysmal atrial fibrillation) ([facility]) -Continue on toprol xl and Eliquis. Denies any bleeding concerns. 4. PVD (peripheral vascular disease) with claudication ([facility]) 5. Moderate aortic stenosis -conservative management given his progression of his other disease processes. Denies any change inhis functional capacity. 6. HTN, goal below 130/80 -Well controlled. -Continue on Toprol xl and Imdur Discussed patient's overall prognosis and support for his decision to have hospice care. Reassured patient that we will continue to follow and remain involved in his care as long as he would like to see us. Will work collectively with hospice care for overall symptom management and conservative treatment therapies. DISPOSITION: Follow up 6 months or if symptoms worsen/fail to improve. All questions were answered to the patients satisfaction. Patient advised to report to ED with any and all emergencies. The patient agrees to the above plan and will call with additional questions or concerns. [facility], [address] [place] [address] I spent a total of 32 minutes on the date of service in preparation, delivery, and documentation ofthe care provided to Walter Don excluding any time spent in the performance of separately billed services. This chart was completed in part utilizing [employer] Speech Voice Recognition Software. Grammatical errors, random [...] Nursing Notes * Stephanie Cooney CMA - 09/16/2023 8:48 AM EDT Examination Room: 1 Name: Walter Don Date of : (1945) Reason for Visit: 2m Interim Hospitalization(s): none Problems/Concerns: denied Chest Pain/SOB: denied chest pain but does have SOB which is not new. My Onfidoer is a way you can talk to [...] 10/27/2023 11:00 AM EDT Office Visit Orthopaedics [facility] [address] [place] [address] Zander Wilkins DO [address] [place] [address] 12/01/2023 11:40 AM EDT Office Visit Podiatry [facility] [address] [facility] [place] [address] Bettye Herrmann, DPLiat [address] [place] [address] [place] [address] 01/18/2024 12:30 PM EDT Office Visit Sleep Disorders [facility]tr [facility] [address] [facility] [place] [phone] Hui Bishop CRNP [address] [facility] [place] [address] 01/19/2024 11:40 AM EDT Office Visit Family Practice [facility] [address] [facility] [place] [address] Johnnie Newby MD [address] [facility] [place] [address] 01/26/2024 10:00 AM EDT Imaging Radiology [facility] 1st Floor, [place] [address] [facility] [place] [address] 02/01/2024 11:30 AM EDT Office Visit Radiation Oncology, [facility] [place] [address] Shawna Johnson MD [facility] [place] [address] 03/28/2024 9:30 AM EST Office Visit Cardiology, [facility] [address] [place] [address] Deisy Aguirre CRNP [address] [place] [address] Scheduled Procedures Name Priority Associated Diagnoses Date/Ti [...] 06/04/2021, Additional history exists GFR 03/04/2024 09/02/2023, 1204/2022, 04/17/2023, Additional history exists CKD PHOS USE SMARTSET 42321 04/15/202403/20, 06/05/2022, 06/03/2021, Additional history exists CKD HGB USE SMARTSET 61537 09/01/202409/01, 09/02/2023, 06/03/2023, Additional history exists Colonoscopy [...] this encounter Medical Devices Implanted Type Area Talent Rep Device Identifier Shelf Expiration Date Model / Serial / Lot Lens Intraoc 24.0 - [id number] - [id number] Implanted:Qty: 1 on 06/01/2017 by Nikhil Bolton MD at OR [facility] Left: Eye [employer] 07/17/2021 [id number] / [id number] / [id number] Lens Intraoc 24.0 - [id number] - [id number] Implanted:Qty: 1 on 06/08/2017 by Nikhil Bolton MD at OR [facility] Right: Eye [employer] 07/17/2021 [id number] / [id number] / [id number] documented as of this encounter Visit Diagnoses Diagnosis Cellulitis of finger of right hand- Primary Cellulitis and abscess of finger, unspecified Coronary artery disease involving eyak coronary artery of eyak heart without angina pectoris PAF (paroxysmal atrial fibrillation) (HCC) Atrial fibrillation PVD (peripheral vascular disease) with claudication (HCC) Peripheral vascular disease, unspecified Moderate aortic stenosis Aortic valve disorders HTN, goal below 130/80 Unspecified essential hypertension documented in this encounter Advance Directives Documents on File Type Date Recorded Patient Network Security Consultant Expl 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 Care Teams Pool Table Operator Relationship Specialty Start Date End Date Johnnie Newby MD [address] [place] [address] PCP - General Family Medicine 09/13/20 documented as of this encounter
--- OUTSIDE RECORDS SUMMARY | 2023-12-14 20:12 | External Medical Summary | Summary of Care ---
Author Name Unknown Organization [facility] Address [address] [place] [address] Phone [phone] Care Team Providers Care Swimming Pool Salesperson Name Role Phone Johnnie Newby MD Primary Care Provider [phone] Reason for Visit * Reason Comments Medication Refill Encounter Details Date Type Department Care Team (Late st Contact Info) Description 08/31/2023 Refill Pulmonary Medicine, [facility] [address] [place] [address] Hi Dave MD [address] [place] [address] Allergies Active Allergy Reactions Criticality Noted Date Comments Acetaminophen 05/06/2005 headaches documented as of this encounter (statuses as of 08/31/2023) Medications Medication Sig Dispensed Refills Start Date End Date Status DAILY MULTIVITAMIN PO TABS Take 1 Tablet by mouth daily. 0 Active BUSPAR 15 MG PO TABS Take 1 Tablet by mouth daily as needed. 0 Active clonazePAM (KLONOPIN) 0.5 MG Tablet Take 1 Tablet by mouth daily as needed. 0 06/17/2016 Active ONETOUCH ULTRA BLUE STRPIndications:Typ e 2 diabetes mellitus with hemoglobin A1c goal of less than 7.0% ([facility]) TEST ONCE DAILY 100 Strip 5 03/02/2018 Active FLUoxetine HCl 20 MG Oral Capsule (PROzac) TAKE 3 CAPSULES BY MOUTH EVERY MORNING 270 Capsule 0 01/05/2022 Active BiPAP every night at bedtime. 0 Active Vitamin B-12 1000 MCG Oral Tablet (Cyanocobalamin) Take 1 Tablet by mouth in the morning. 0 Active Apixaban 5 MG Oral Tablet (Eliquis) Take 1 Tablet by mouth in the morning and 1 Tablet before bedtime. 180 Tablet 3 12/08/2022 Active Metoprolol Succinate ER 25 MG Oral Tablet Extended Release 24 Hour (toPROL XL)Indications:SVT (supraventricular tachycardia) ([facility]),NSVT (nonsustained ventricular tachycardia) ([facility]) TAKE ONE TABLET BY MOUTH EVERY DAY 90 Tablet 3 12/09/2022 12/09/19 24 Active Vitron-C 65-125 MG Oral Tablet (Iron-Vitamin C 65-125 mg per tab) Take 1 Tablet by mouth in the morning. 0 Active Furosemide 40 MG Oral Tablet (Lasix)Indications: [...] for anxiety 180 Tablet 0 02/09/2023 Active Additional Information Patient not taking.Reported [...] needed for Pain, Severe. 90 Tablet 0 07/19/2023 Active Colchicine 0.6 MG Oral Tablet Take 2 tablets by mouth. One hour later, take 1 tablet by mouth. Take 1 tablet by mouth once daily after until symptoms resolve. 90 Tablet 0 07/21/2023 Active Atorvastatin Calcium 80 MG Oral Tablet (Lipitor) TAKE ONE TABLET BY MOUTH AT BEDTIME 90 Tablet 1 08/05/2023 08/05/19 25 Active Fluticasone-[place] rol 250-50 MCG/ACT Inhalation Aerosol Powder Breath Activated (Advair Diskus) Inhale 1 Puff by mouth in the morning and 1 Puff before bedtime. 60 Each 2 2023 11/09/19 24 Active Roflumilast 500 MCG Oral Tablet (Daliresp)Indicatio ns:COPD, group D, by GOLD 2017 classification ([facility]) Take 1 Tablet by mouth in the morning. 30 Tablet 2 2023 11/26/19 24 Active Tiotropium [place] Monohydrate 18 MCG Inhalation Capsule (Spiriva HandiHaler) Inhale 1 Capsule by mouth in the morning. 30 Capsule 2 08/16/2023 11/17/19 24 Active Albuterol Sulfate HFA 108 (90 Base) MCG/ACT Inhalation Aerosol SolutionIndications :COPD, group D, by GOLD 2017 classification ([facility]) Inhale 2 Puffs by mouth every 6 hours as needed for Dyspnea or Wheezing. 18 g 5 08/17/2023 Active busPIRone HCl 15 MG Oral Tablet (Buspar) take 1 tablet by mouth four times daily as needed for anxiety 360 Tablet 0 08/24/2023 Active FLUoxetine HCl 20 MG Oral Capsule (PROzac) take 3 capsules by mouth every morning 270 Capsule 0 08/24/2023 Active Mirtazapine 15 MG Oral Tablet (Remeron) take 1 tablet by mouth every night 90 Tablet 0 08/24/2023 Active risperiDONE 0.5 MG Oral Tablet (RisperDAL) take 1 tablet by mouth twice daily 180 Tablet 0 08/24/2023 Active LORazepam 2 MG Oral Tablet (Ativan) Take 1 Tablet by mouth every 6 hours as needed. 0 Active Isosorbide Mononitrate ER 60 MG Oral Tablet Extended Release 24 Hour (Imdur)Indications: Coronary artery disease involving [place] coronary artery without angina pectoris TAKE ONE TABLET BY MOUTH EVERY MORNING 100 Tablet 3 08/30/2023 08/30/19 25 Active methylPREDNISolone 4 MG Oral Tablet Therapy Pack (Medrol Dosepack) follow package directions 21 Tablet 0 08/30/2023 Active Budesonide 0.25 MG/2ML Inhalation Suspension (Pulmicort) Inhale 0.25 mg via nebulizer 2 times a day as needed for Dyspnea or Wheezing. 160 mL 3 08/31/2023 02/07/20 24 Active Budesonide 0.25 MG/2ML Inhalation Suspension (Pulmicort) Inhale 0.25 mg via nebulizer 2 times a day as needed for Dyspnea or Wheezing. 160 mL 3 05/24/2023 08/31/19 24 Discontinu ed(Refill) Hospital, Clinic, or Other Facility Administered Medication Ordered Dose Route Frequency Start Date End Date Status albuterol sulfate (PROVENTIL) (2.5 MG/3ML) 0.083% inhalation solution 2.5 mgIndications:COPD, severe (HCC) 2.5 mg NEBULIZER Q4H PRN 07/08/2018 Active documented as of this encounter (statuses as of 08/31/2023) Active Problems Problem Noted Date Diagnosed Date [...] tis 01/05/2014 Coronary artery disease invo lving [place] coronary artery of [place] heart without angina pectoris 11/27/2013 Tobacco abuse 11/27/2013 HTN, goal below 130/80 03/06/2009 Overview: Modified per HTN protocol #16. documented as of this encounter (statuses as of 08/31/2023) Resolved Problems Problem Noted Date Diagnosed Date [...] as of this encounter (statuses as of 08/31/2023) Immunizations Name Administration Dates Next Due COVID-19 mRNA, LNP-s, No Pre serve, 2-Dose Series ([employer]) 02/25/2023,02/10/2022,07/13/2020,06/17 Pneumococcal Conjugate Vacc, 13 Valent (Prevnar) [...] Telephone Encounter - Hi Dave MD - 08/31/2023 4:10 PM EDT Signed Prescriptions: Disp Refills Budesonide 0.25 MG/2ML Inhalation Suspensi*160 mL 3 Sig: Inhale 0.25 mg via nebulizer 2 times a day as needed for Dyspnea or Wheezing. Authorizing Provider: HI DAVE * Telephone Encounter - Ethel Ventura LPN - 08/31/2023 11:30 AM EDTPending Prescriptions: Disp Refills Budesonide 0.25 MG/2ML Inhalation Suspensi*160 mL 3 Sig: Inhale0.25 mg via nebulizer 2 times a day as needed for Dyspnea or Wheezing. documented in this encounter Plan of Treatment Upcoming Encounters Date Type Department Care Team (Late st Contact Info) Description 09/01/2023 9:00 AM EDT Scheduled Telephone Palliative Medicine, [address] 5th Floor [place] [address] [place], Nurse Palliative Medicine [address] [address] 09/02/2023 11:00 AM EDT Laboratory Laboratory [address] [place] [phone] [place] [address] 09/09/2023 11:00 AM EDT Office Visit Hematology/Oncology [facility] [place] [address] [facility] [place] [address] Lexie Palmer CRNP [address] [place] [address] 09/16/2023 9:00 AM EDT Office Visit Cardiology, [facility] [address] [place] [address] Deisy Aguirre CRNP [address] [place] [address] 10/19/2023 11:00 AM EDT Office Visit Cardiology, [facility] 132 [facility] [place] [address] Deisy Aguirre CRNP [address] [place] [address] 10/27/2023 11:00 AM EDT Office Visit Orthopaedics [facility] [address] [place] [address] Zander Wilkins DO [address] [place] [address] 12/01/2023 11:40 AM EDT Office Visit Podiatry [facility] [address] [place] [place] [address] Bettye Herrmann, [address] [place] [address] 01/18/2024 12:30 PM EDT Office Visit Sleep Disorders Ctr [facility] 132 [facility] [place] [phone] Hui Bishop CRNP [address] [place] [address] 01/19/2024 11:40 AM EDT Office Visit Family Practice [facility] [address] [facility] [place] [address] Johnnie Newby MD [address] [place] [address] 01/26/2024 10:00 AM EDT Imaging Radiology [address] [place] [address] 02/01/2024 11:30 AM EDT Office Visit Radiation Oncology, [address] [place] [address] Shawna Johnson MD [address] [place] [address] [place] [address] Scheduled Procedures Name Priority Associated Diagnoses Date/Ti me COLONOSCOPY FLEXIBLE PROXIMA L DIAGNOSTIC Recall History of colonic polyps Health Maintenance Due Date Last Done Comments COVID-19 Vaccine ( season) 2023 03/03/2023, 02/25/2023, 02/10/2022, Additional history exists DISCUSS TOBACCO CESSATION (REFER [...] Additional history exists CKD PHOS USE SMARTSET 32404 04/15/202403/20, 06/05/2022, 06/03/2021, Additional history exists CKD HGB USE SMARTSET 04910 06/03/202406/03, 06/03/2023, 04/18/2023, Additional history exists Colonoscopy 01/14/2025 01/14/2023, 12/19, [...] this encounter Medical Devices Implanted Type Area Mac Developer Device Identifier Shelf Expiration Date Model / Serial / Lot Lens Intraoc 24.0 - [id number] - [id number] Implanted:Qty: 1 on 06/01/2017 by Nikhil Bolton MD at OR [facility] Left: Eye BAUSCH [employer] LOMB 07/17/2021 [id number] / [id number] / [id number] Lens Intraoc 24.0 - [id number] - [id number] Implanted:Qty: 1 on 06/08/2017 by Nikhil Bolton MD at OR [facility] Right: Eye BAUSCH [employer] LOMB 07/17/2021 [id number] / [id number] / [id number] documented as of this encounter Advance Directives Documents on File Type Date Recorded Patient Office Machine Technician Expl anation Advance Directives and Yu fine [...] and were consensually agreed upon. Care Teams Swimming Pool Salesperson Relationship Specialty Start Date End Date Johnnie Newby MD [address] [place] [address] PCP - General Family Medicine 09/13/20 documented as of this encounter
--- OUTSIDE RECORDS SUMMARY | 2023-12-14 20:12 | External Medical Summary | Summary of Care ---
Author Name Unknown Organization [facility] Address [address] [place] [address] Phone [phone] Care Team Providers Care Run Lead Name Role Phone Johnnie Newby MD Primary Care Provider [phone] Reason for Visit * Reason Onset Date Comments Palliative Care Follow-up 09/01/2023 Encounter Details Date Type Department Care Team (Late st Contact Info) Description 09/01/2023 9:00 AM EDT Scheduled Telephone Palliative Medicine, [address] [address] [place], Nurse Palliative Medicine [address] [address] Arrived Allergies Active Allergy Reactions Criticality Noted Date Comments Acetaminophen 05/06/2005 headaches documented as of this encounter (statuses as of 09/01/2023) Medications Medication Sig Dispensed Refills Start Date [...] ED) TEST ONCE DAILY 100 Strip 5 03/02/2018 [...] Release 24 Hour (toPROL XL)Indications:SVT (supraventricular tachycardia) ([facility]),NSVT (nonsustained ventricular tachycardia) ([facility]) TAKE ONE TABLET BY MOUTH EVERY DAY 90 Tablet 3 12/09/2022 4 Active Vitron-C 65-125 MG Oral Tablet (Iron-Vitamin C 65-125 mg per tab) Take 1 Tablet by mouth in the morning. 0 Active Furosemide 40 MG Oral Tablet (Lasix)Indications:[facility]) Take 1 Tablet by mouth in the morning. 30 Tablet 2 2023 4 Active Tiotropium [place] Monohydrate 18 MCG Inhalation Capsule (Spiriva HandiHaler) Inhale 1 Capsule by mouth in the morning. 30 Capsule 2 08/16/2023 4 Active Albuterol Sulfate HFA 108 (90 Base) MCG/ACT Inhalation Aerosol SolutionIndications: COPD, group D, by GOLD 2017 classification (HCC) Inhale 2 Puffs by mouth every 6 [...] (Imdur)Indications:C oronary artery disease involving [place] coronary artery without angina pectoris TAKE ONE [...] as of this encounter (statuses as of 09/01/2023) Active Problems Problem Noted Date Diagnosed Date [...] Coronary artery disease invo lving [place] coronary artery of [place] heart without angina pectoris 11/27/2013 Tobacco abuse 11/27/2013 HTN, goal below 130/80 03/06/2009 Overview: Modified per HTN protocol #16. documented as of this encounter (statuses as of 09/01/2023) Resolved Problems Problem Noted Date Diagnosed Date [...] as of this encounter (statuses as of 09/01/2023) Immunizations Name Administration Dates Next Due COVID-19 mRNA, LNP-s, No Pre serve, 2-Dose Series ([employer]) 02/25/2023,02/10/2022,07/13/2020,06/17 Pneumococcal Conjugate Vacc, 13 Valent (Prevnar) [...] encounter Miscellaneous Notes * Telephone Encounter - Britt Dalton LPN - 09/01/2023 9:44 AM EDT Call to [facility] Spoke with Perez Patient was enrolled on 08/25 RN saw patient yesterday, and going again or Wednesday No current issues/needs documented in this encounter Plan of Treatment Upcoming Encounters Date Type Department Care Team (Late st Contact Info) Description 09/02/2023 11:00 AM EDT Laboratory Laboratory [address] [place] [phone] [place] [address] 09/09/2023 11:00 AM EDT Office Visit Hematology/Oncology [facility] [phone] Lexie Palmer CRNP [address] [facility] [place] [address] 09/16/2023 9:00 AM EDT Office Visit Cardiology, [facility] [address] [place] [address] Deisy Aguirre CRNP [address] [place] [address] 10/19/2023 11:00 AM EDT Office Visit Cardiology, [facility] [address] [place] [address] Deisy Aguirre CRNP [address] [place] [address] 10/27/2023 11:00 AM EDT Office Visit Orthopaedics [facility] [address] [place] [address] Zander Wilkins DO [address] [place] [address] 12/01/2023 11:40 AM EDT Office Visit Podiatry [facility] [address] [place] [address] Bettye Herrmann DPM [address] [facility] [place] [address] 01/18/2024 12:30 PM EDT Office Visit Sleep Disorders Ctr [facility] [address] [place] [phone] Hui Bishop CRNP [address] [place] [address] 01/19/2024 11:40 AM EDT Office Visit Family Practice [facility] [address] [place] [address] Johnnie Newby MD [address] [place] [address] 01/26/2024 10:00 AM EDT Imaging Radiology [facility] [address] [facility] [place] [address] [place] [address] 02/01/2024 11:30 AM EDT Office Visit Radiation Oncology, [address] [place] [address] Shawna Johnson MD [address] [place] [address] [place] [address] Scheduled Procedures Name Priority Associated Diagnoses Date/Ti [...] Additional history exists CKD PHOS USE SMARTSET 12209 04/15/202403/20, 06/05/2022, 06/03/2021, Additional history exists CKD HGB USE SMARTSET 48993 06/03/202406/03, 06/03/2023, 04/18/2023, Additional history exists Colonoscopy [...] encounter Medical Devices Implanted Type Area Director Inbound Sales Device Identifier Shelf Expiration Date Model / Serial / Lot Lens Intraoc 24.0 - [id number] - [id number] Implanted:Qty: 1 on 06/01/2017 by Nikhil Bolton MD at OR [facility] Left: Eye BAUSCH [employer] LOMB 07/17/2021 [id number] / [id number] / [id number] Lens Intraoc 24.0 - [id number] - [id number] Implanted:Qty: 1 on 06/08/2017 by Nikhil Bolton MD at OR [facility] Right: Eye BAUSCH [employer] LOMB 07/17/2021 [id number] / [id number] / [id number] documented as of this encounter Advance Directives Documents on File Type Date Recorded Patient Division Commander Expl 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 Care Teams Run Lead Relationship Specialty Start Date End Date Johnnie Newby MD [address] [place] [address] PCP - General Family Medicine 09/13/20 documented as of this encounter
--- OUTSIDE RECORDS SUMMARY | 2023-12-14 20:12 | External Medical Summary ---
Author Name Unknown Address Unknown Organization K01[place] [address] [place] [address] Laboratory Report Ordering Provider Test Date Status RAO PITTMAN 09/02/2023 10:16:54 Final Observation Date Value Abnormality Reference (Units ) Status Etelvina cells [Presence] in Blood by Light microscopy 09/02/2023 10:16:54 Moderate Abnormal None Seen Final Ovalocytes [Presence] in Blood by Light microscopy 09/02/2023 10:16:54 Moderate Abnormal None Seen Final Schistocytes 09/02/2023 10:16:54 Few Abnormal None Seen Final Performing Location [facility] [place] [address] [place] [address]
--- OUTSIDE RECORDS SUMMARY | 2023-12-14 20:12 | External Medical Summary | Summary of Care ---
Author Name Unknown Organization [facility] Address [address] [place] [address] Phone [phone] Care Team Providers Care Computer System Technician Name Role Phone Johnnie Newby MD Primary Care Provider [phone] Reason for Visit * Reason Comments Outpatient Testing Encounter Details Date Type Department Care Team (Late st Contact Info) Description 09/02/2023 11:00 AM EDT Laboratory Laboratory [address] [place] [phone] [place] [id number] [employer] Other*[id number]; Anemia of chronic disease; Iron deficiency anemia, unspecified iron deficiency anemia type; Malignant neoplasm of right upper lobe of lung (HCC) Allergies Active Allergy Reactions Criticality Noted Date Comments Acetaminophen 05/06/2005 headaches documented as of this encounter (statuses as of 09/02/2023) Medications Medication Sig Dispensed Refills Start Date [...] GOLD 2017 classification ([facility]) Take 1 Tablet by mouth in the morning. 30 Tablet 2 2023 4 Active Tiotropium [place] Monohydrate 18 MCG Inhalation Capsule (Spiriva HandiHaler) [...] 24 Hour (Imdur)Indications:C oronary artery disease involving [place] coronary artery without angina pectoris TAKE ONE [...] as of this encounter (statuses as of 09/02/2023) Active Problems Problem Noted Date Diagnosed Date [...] tis 01/05/2014 Coronary artery disease invo lving [place] coronary artery of [place] heart without angina pectoris 11/27/2013 Tobacco abuse 11/27/2013 HTN, goal below 130/80 03/06/2009 Overview: Modified per HTN protocol #16. documented as of this encounter (statuses as of 09/02/2023) Resolved Problems Problem Noted Date Diagnosed Date [...] as of this encounter (statuses as of 09/02/2023) Immunizations Name Administration Dates Next Due COVID-19 mRNA, LNP-s, No Pre serve, 2-Dose Series ([employer]) 02/25/2023,02/10/2022,07/13/2020,06/17 Pneumococcal Conjugate Vacc, 13 Valent (Prevnar) [...] Care Team (Late st Contact Info) Description 09/09/2023 11:00 AM EDT Office Visit Hematology/Oncology [facility] [place] [address] [place] [address] Lexie Palmer CRNP [address] [place] [address] 09/16/2023 9:00 AM EDT Office Visit Cardiology, [facility] 132 [facility] [address] Deisy Aguirre CRNP [address] [place] [address] 10/19/2023 11:00 AM EDT Office Visit Cardiology, [facility] 132 [place] [address] Deisy Agurire CRNP [address] [place] [address] 10/27/2023 11:00 AM EDT Office Visit Orthopaedics [facility] [address] [place] [address] Zander Wilkins DO [address] [place] [address] 12/01/2023 11:40 AM EDT Office Visit Podiatry [facility] [address] [place] [address] Bettye Herrmann, [place] [address] [place] [address] 01/18/2024 12:30 PM EDT Office Visit [facility] Disorders Ctr [facility] [address] [place] [phone] Hui Bishop CRNP [address] [place] [address] 01/19/2024 11:40 AM EDT Office Visit Family Practice [facility] [address] [place] [address] Johnnie Newby MD [address] [place] [address] 01/26/2024 10:00 AM EDT Imaging Radiology [facility] 1st [facility], [address] [place] [address] 02/01/2024 11:30 AM EDT Office Visit Radiation Oncology, [address] [place] [address] Shawna Johnson MD [address] [place] [address] [place] [address] Pending Results Name Type Priority Associated Diagnoses Date /Time MYCODE SUBSEQUENT ADULT Lab Routine MyCode Research Other*[id number] 09/02/2023 10:16 AM EDT CBC WITH WBC DIFFERENTIAL Lab STAT Anemia of chronic disease Iron deficiency anemia, unspecified iron deficiency anemia type Malignant neoplasm of right upper lobe of lung (HCC) 09/02/2023 10:16 AM EDT COMPREHENSIVE METABOLIC PANEL Lab STAT Anemia of chronic disease Iron deficiency anemia, unspecified iron deficiency anemia type Malignant neoplasm of right upper lobe of lung (HCC) 09/02/2023 10:16 AM EDT IRON SCREEN, INCLUDING TIBC Lab STAT Anemia of chronic disease Iron deficiency anemia, unspecified iron deficiency anemia type Malignant neoplasm of right upper lobe of lung (HCC) 09/02/2023 10:16 AM EDT FERRITIN Lab STAT Anemia of chronic disease Iron deficiency anemia, unspecified iron deficiency anemia type Malignant neoplasm of right upper lobe of lung (HCC) 09/02/2023 10:16 AM EDT MYCODE SST1 Lab Routine [employer] Other*[id number] 09/02/2023 10:16 AM EDT MYCODE SST2 Lab Routine MyCode [employer] Other*[id number] 09/02/2023 10:16 AM EDT CBC Lab STAT Anemia of chronic disease Iron deficiency anemia, unspecified iron deficiency anemia type Malignant neoplasm of right upper lobe of lung (HCC) 09/02/2023 10:16 AM EDT DIFFERENTIAL, AUTOMATED Lab STAT Anemia of chronic disease Iron deficiency anemia, unspecified iron deficiency anemia type Malignant neoplasm of right upper lobe of lung (HCC) 09/02/2023 10:16 AM EDT Scheduled Procedures Name Priority Associated Diagnoses Date/Ti me COLONOSCOPY FLEXIBLE PROXIMA L DIAGNOSTIC Recall History of colonic polyps Health Maintenance Due Date Last Done Comments COVID-19 Vaccine ( season) 2023 03/03/2023, 02/25/2023, 02/10/2022, Additional history exists DISCUSS TOBACCO CESSATION (REFER TO SMARTSET #5620) 05/01/2023 05/01/2022, 02/13/2022 Diabetic Eye Exam 07/09/2023 [...] Additional history exists CKD PHOS USE SMARTSET 37079 04/15/202403/20, 06/05/2022, 06/03/2021, Additional history exists CKD HGB USE SMARTSET 67238 06/03/202406/03, 06/03/2023, 04/18/2023, Additional history exists Colonoscopy [...] this encounter Medical Devices Implanted Type Area Cotton Bag Clipper Device Identifier Shelf Expiration Date Model / Serial / Lot Lens Intraoc 24.0 - [id number] - [id number] Implanted:Qty: 1 on 06/01/2017 by Nikhil Bolton MD at OR [facility] Left: Eye BAUSCH [employer] LOMB 07/17/2021 [id number] / [id number] / [id number] Lens Intraoc 24.0 - [id number] - [id number] Implanted:Qty: 1 on 06/08/2017 by Nikhil Bolton MD at OR [facility] Right: Eye BAUSCH & LOMB 07/17/2021 [id number] / [id number] / [id number] documented as of this encounter Visit Diagnoses Diagnosis [employer] Other*[id number] Anemia of chronic disease Anemia of other chronic disease Iron deficiency anemia, unspecified iron deficiency anemia type Malignant neoplasm of right upper lobe of lung (HCC) Malignant neoplasm of upper lobe, bronchus or lung documented in this encounter Advance Directives Documents on File Type Date Recorded Patient Jewish History Professor Expl anation Advance Directives and Yu Watkins [...] were consensually agreed upon. Care Teams Computer System Technician Relationship Specialty Start Date End Date Johnnie Newby MD [address] [place] [address] PCP - General Family Medicine 09/13/20 documented as of this encounter
--- OUTSIDE RECORDS SUMMARY | 2023-12-14 20:12 | External Medical Summary ---
Author Name Unknown Address Unknown Organization K01:LAB[facility]ATORY [facility] [place] [address] [place] [address] Laboratory Report Ordering Provider Test Date Status HERMILO BADILLO 09/02/2023 10:16:54 Final Observation Date Value Abnormality Reference (Units ) Status MYCODE SPECIMEN-SST 09/02/2023 10:16:54 Freezing of extracted DNA, whole blood and/or serum. Final Performing Location [facility] [place] [address] [place] [address]
--- OUTSIDE RECORDS SUMMARY | 2023-12-14 20:12 | External Medical Summary | Summary of Care ---
Author Name Unknown Organization [facility] Address [address] [place] [address] Phone [phone] Care Team Providers Care Sustainability Director Name Role Phone Johnnie Newby MD Primary Care Provider [phone] [phone] Reason for Referral * Medication Prior Authorization - Authorized Specialty Diagnoses / Procedures Referred By Treva judd Referred To Contact Diagnoses Symptomatic care patient Johnnie Newby MD [address] [place] [address] Referral ID Status Reason Start Date Expiration Date V isits Requested Visits Authorized [id number] Authorized 07/21/2023 04/18/2099 999 999 * Evaluate & Treat - Unlimited Visits (Within 30 days (routine)) - Authorized Specialty Diagnoses / Procedures Referred By Treva t Referred To Contact Hospice and Palliative Medicine / Palliative Medicine Diagnoses Symptomatic care patient Johnnie Newby MD [address] [place] [address] Referral ID Status Reason Start Date Expiration Date Visits Requested Visits Authorized [id number] Authorized Specialty Services Required 07/19/2023 999 999 Question Answer Referral Priority Within 30 days (routine) Where should this appointment be scheduled? [facility] Reason for Referral: COPD Palliative Medicine To Address: Pain & Symptom Management Referral Location Office Reason for Visit * Reason Onset Date Comments Hospital Follow-Up Hospital Follow-Up 07/19/2023 Encounter Details Date Type Department Care Team (Late st Contact Info) Description 07/19/2023 11:40 AM EDT Office Visit [facility] [address] [place] [address] Johnnie Newby MD [address] [place] [address] Symptomatic care patient*; Hospital discharge follow-up Allergies Active Allergy Reactions Criticality Noted Date [...] Release 24 Hour (toPROL XL)Indications:SVT (supraventricular tachycardia) ([facility]),NSVT (nonsustained ventricular tachycardia) ([facility]) TAKE ONE TABLET BY MOUTH EVERY DAY 90 Tablet 3 3 024 Active Vitron-C 65-125 MG Oral Tablet (Iron-Vitamin C 65-125 mg per tab) Take 1 Tablet by mouth in the morning. 0 Active Furosemide 40 MG Oral Tablet (Lasix)Indications [...] for anxiety 180 Tablet 0 3 Active Additional Information Patient not taking.Reported on 08/09/2023 Omeprazole 20 MG Oral Capsule Delayed Release (PriLOSEC)Indicati ons:Gastroesophage al reflux disease without esophagitis TAKE ONE CAPSULE BY MOUTH EVERY MORNING *NEED UPDATED LABS* 90 Capsule 1 3 024 Active Nitroglycerin 0.4 MG Sublingual Tablet Sublingual [...] by mouth every night 45 Tablet 0 4 Active risperiDONE 0.5 MG Oral Tablet (RisperDAL) Take one tablet by mouth every night at bedtime 90 Tablet 0 4 Active Gabapentin 300 MG Oral Capsule [...] needed for Pain, Severe. 90 Tablet 0 4 Active Isosorbide Mononitrate ER 60 MG Oral Tablet Extended Release 24 Hour (Imdur)Indications :Coronary artery disease involving sagin[place] chippewa coronary artery without angina pectoris TAKE ONE TABLET BY MOUTH EVERY MORNING 90 Tablet 3 3 024 Discontinued(Re fill) Atorvastatin Calcium 80 MG Oral Tablet (Lipitor) TAKE ONE TABLET BY MOUTH AT BEDTIME 90 Tablet 1 3 024 Discontinued(Re fill) Colchicine 0.6 MG Oral Tablet Take 2 tablets by mouth. One hour later, take 1 tablet by mouth. Take 1 tablet by mouth once daily after until symptoms resolve. 90 Tablet 3 3 024 Discontinued(Re fill) Colchicine 0.3 MG OR TABS 1 Tablet. 0 3 024 Discontinued Budesonide 0.25 MG/2ML Inhalation Suspension (Pulmicort) Inhale 0.25 mg via nebulizer 2 times a day as needed for Dyspnea or Wheezing. 160 mL 3 4 024 Discontinued(Re fill) Wixela Inhub 250-50 MCG/ACT Inhalation Aerosol Powder Breath Activated (Fluticasone-Salme terol) Inhale 1 Puff by mouth in the morning and 1 Puff before bedtime. 60 Each 2 4 024 Discontinued(Re fill) Roflumilast 500 MCG Oral Tablet (Daliresp)Indicati ons:COPD, group D, by GOLD 2017 classification ([facility]) Take 1 Tablet by mouth in the morning. 30 Tablet 2 4 024 Discontinued(Re fill) Tiotropium Carver Monohydrate 18 MCG Inhalation Capsule (Spiriva) Inhale 1 Capsule by mouth in the morning. 30 Capsule 2 4 024 Discontinued(Re fill) metFORMIN HCl ER 500 MG Oral Tablet Extended Release 24 Hour (Glucophage XR) Take 2 Tablets by mouth in the morning. 60 Tablet 11 4 024 Discontinued(Re fill) Hospital, Clinic, or Other Facility [...] tis 01/05/2014 Coronary artery disease invo lving [place] coronary artery of [place] heart without angina pectoris 11/27/2013 Tobacco abuse [...] mRNA, LNP-s, No Pre serve, 2-Dose Series (Synata) 02/25/2023,02/10/2022,07/13/2020,06/17 Pneumococcal Conjugate Vacc, 13 Valent (Prevnar) [...] Sign Reading Time Taken Comments Blood Pressure 110/48 07/19/2023 11:32 AM EDT Pulse 60 07/19/2023 11:32 AM EDT Temperature 36.7 C (98.1 F) 07/19/2023 11:32 AM E DT Respiratory Rate 18 07/19/2023 11:32 AM EDT Oxygen Saturation 96% 07/19/2023 11:32 AM EDT Inhaled Oxygen Concentration - - Weight 89.4 kg (197 lb) 07/19/2023 11:32 AM EDT Height 174 cm (5' 8.5") 07/19/2023 11:32 AM EDT Body Mass Index 29.52 07/19/2023 11:32 AM EDT documented in this encounter Functional [...] Progress Notes * Johnnie Newby MD - 07/20/2023 1:16 AM EDT SUBJECTIVE: Walter Don is a 77 year old male. Chief Complaint Patient presents with Hospital Follow-Up Hospital Follow-Up HPI: Medically complicated male. Ready to be on hospice. Patient Active Problem List Diagnosis Code HTN, goal below 130/80 I10 Coronary artery disease involving [place] coronary artery of [place] heart without angina pectoris I25.10 Tobacco abuse Z72.0 PTSD (post-traumatic stress disorder) F43.10 Gastroesophageal reflux disease without esophagitis K21.9 Type 2 diabetes mellitus with hemoglobin A1c goal of less than 8.0% ([facility]) E11.9 YISSEL treated with BiPAP G47.33 Peripheral arterial disease ([facility]) I73.9 Dyslipidemia E78.5 COPD, group D, by GOLD 2017 classification ([facility]) J44.9 Carotid stenosis, non-symptomatic I65.29 NSVT (nonsustained ventricular tachycardia) ([facility]) I47.29 Aortic valve stenosis I35.0 AAA (abdominal aortic aneurysm) ([facility]) I71.40 Chronic kidney disease, stage 3a ([facility]) N18.31 Malignant neoplasm of right upper lobe of lung (HCC) C34.11 Depression with anxiety F41.8 History of cardioembolic cerebrovascular accident (CVA) Z86.73 Overweight (BMI 25.0-29.9) E66.3 Gouty arthropathy M10.9 Diabetic peripheral neuropathy (HCC) E11.42 Diverticulosis of large intestine without hemorrhage K57.30 Anemia of chronic disease D63.8 Closed nondisplaced fracture of fifth metatarsal bone of right foot with routine healing S92.354D Current Outpatient Medications Medication Sig Dispense Refill DAILY MULTIVITAMIN PO TABS with lycopene BUSPAR 15 MG PO TABS Take by mouth. Uses as needed clonazePAM (KLONOPIN) 0.5 MG Tablet Uses as needed 0 BiPAP every night at bedtime. Vitamin [...] in the morning. 30 Tablet 2 Tiotropium Carver Monohydrate 18 MCG Inhalation Capsule (Spiriva) Inhale [...] needed for Pain, Severe. 90 Tablet 0 ONETOUCH ULTRA BLUE STRP TEST ONCE DAILY 100 Strip 5 Current Facility-Administered Medications Medication Dose Route Frequency Provider Last Rate Last Admin albuterol sulfate (PROVENTIL) (2.5 MG/3ML) 0.083% inhalation solution 2.5 mg 2.5 mg Nebulizer Q4H PRN Junaid Pyle MD 2.5 mg at 07/26/18 1521 Allergy: Review of patient's allergies indicates: Allergen Reactions Tylenol [Acetaminophen] headaches OBJECTIVE: BP 110/48 | Pulse 60 | Temp 36.7 C (98.1 F) (Tympanic) | Resp 18 | Ht 1.74 m (5' 8.5") | Wt 89.4 kg (197 lb) | SpO2 96% | BMI 29.52 kg/m | BSA 2.08 m Gen: nad ASSESSMENT AND PLAN: (Z51.5) Symptomatic care patient (primary encounter diagnosis) Plan: PALLIATIVE CARE REFERRAL OP, HYDROcodone-Acetaminophen 5-325 MG Oral Tablet (Z09) Hospital discharge follow-up Plan: DISCH MED RECON CUR MED LIS Patient will need diabetic shoes due to neuropathy; charcot deformity, and severe peripheral vascular disease. Follow up as needed. No other complaints were offered at this time. Johnnie Newby MD documented in this encounter Nursing Notes * Smitha Newton LPN - 07/19/2023 11:32 AM EDT The patient has been properly identified by confirmation of name and date of . Chief Complaint Patient presents with Hospital Follow-Up documented in this encounter Plan of Treatment Upcoming Encounters Date Type Department Care Team (Late st Contact Info) Description 09/02/2023 11:00 AM EDT Laboratory Laboratory [address] [place] [address] [place] [address] 09/09/2023 11:00 AM EDT Office Visit Hematology/Oncology [facility] [place] [address] [facility] [place] [phone] Lexie Palmer CRNP [address] [place] [address] [place] [address] 09/16/2023 9:00 AM EDT [facility] [address] [place] [address] Deisy Aguirre CRNP [address] [place] [address] 10/19/2023 11:00 AM EDT [facility] [place] [address] [place] [address] Deisy Aguirre CRNP [address] [place] [address] 10/27/2023 11:00 AM EDT Office Visit Orthopaedics [facility] [address] [facility] [place] [address] Zander Wilkins, DO [address] [place] [address] 12/01/2023 11:40 AM EDT Office Visit Podiatry [facility] [address] [facility] [place] [address] Bettye Herrmann, [address] [place] [address] 01/18/2024 12:30 PM EDT Office Visit Sleep Disorders Ctr [facility] [address] [facility] [place] [phone] Hui Bishop CRNP [address] [place] [address] 01/19/2024 11:40 AM EDT Office Visit Family Practice [facility] [address] [place] [address] Johnnie Newby MD [address] [place] [address] 01/26/2024 10:00 AM EDT [facility] [address] [place] [address] 02/01/2024 11:30 AM EDT Office Visit Radiation Oncology, [address] [place] [address] Shawna Johnson MD Medical [place] [address] Scheduled Procedures Name Priority Associated Diagnoses Date/Ti me COLONOSCOPY FLEXIBLE PROXIMA L DIAGNOSTIC Recall History of colonic polyps Scheduled Referrals Name Type Priority Associated Diagnoses Orde r Schedule PALLIATIVE CARE REFERRAL OP Referral Within 30 days (routine) Symptomatic care patient Ordered: 07/19/2023 Health Maintenance Due Date Last Done Comments [...] Additional history exists CKD PHOS USE SMARTSET 41677 04/15/202403/20, 06/05/2022, 06/03/2021, Additional history exists CKD HGB USE SMARTSET 95882 06/03/202406/03, 06/03/2023, 04/18/2023, Additional history exists Colonoscopy [...] this encounter Medical Devices Implanted Type Area Gear Changer Device Identifier Shelf Expiration Date Model / Serial / Lot Lens Intraoc 24.0 - [id number] - [id number] Implanted:Qty: 1 on 06/01/2017 by Nikhil Bolton MD at OR [facility] Left: Eye [employer] 07/17/2021 [id number] / [id number] / [id number] Lens Intraoc 24.0 - [id number] - [id number] Implanted:Qty: 1 on 06/08/2017 by Nikhil Bolton MD at OR 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 Care Teams Sustainability Director Relationship Specialty Start Date End Date Johnnie Newby MD [address] [place] [address] PCP - General Family Medicine 09/13/20 documented as of this encounter
--- OUTSIDE RECORDS SUMMARY | 2023-12-14 20:12 | External Medical Summary ---
Author Name Unknown Address Unknown Organization K01:LABORATORY [facility] [place] - [address] [place] [address] Laboratory Report Ordering Provider Test Date Status RAO PITTMAN 09/02/2023 10:16:54 Final Observation Date Value Abnormality Reference (Units ) Status Iron 09/02/2023 10:16:54 66 45-176 (ug /dL) Final Iron-binding capacity 09/02/2023 10:16:54 260 250-425 (ug/dL) Final Transferrin Sat % 09/02/2023 10:16:54 25 15 -55 (%) Final Performing Location LABORATORY [facility] [place] - [address] [place] [address]
--- OUTSIDE RECORDS SUMMARY | 2023-12-14 20:12 | External Medical Summary ---
Author Name Unknown Address Unknown Organization K01:[facility] [place] [address] [place] [address] Laboratory Report Ordering Provider Test Date Status HERMILO BADILLO 09/02/2023 10:16:54 Final Observation Date Value Abnormality Reference (Units ) Status MYCODE SPECIMEN-SST 09/02/2023 10:16:54 Freezing of extracted DNA, whole blood and/or serum. Final Performing Location [facility] [place] [address] [place] [address]
--- OUTSIDE RECORDS SUMMARY | 2023-12-14 20:12 | External Medical Summary | Summary of Care ---
Author Name Unknown Organization [facility] Address [address] [place] [address] Phone [phone] Care Team Providers Care Card Cleaner Name Role Phone John Newby MD Primary Care Provider [phone] [phone] Reason for Visit * Reason Comments Medication Refill Encounter Details Date Type Department Care Team (Late st Contact Info) Description 08/29/2023 Refill Family Practice [facility] [place] [address] John Newby MD [address] [place] [address] Coronary artery disease involving viejas coronary artery without angina pectoris Allergies Active Allergy Reactions Criticality Noted Date Comments Acetaminophen 05/06/2005 headaches documented as of this encounter (statuses as of 08/30/2023) Medications Medication Sig Dispensed Refills Start Date [...] hemoglobin A1c goal of less than 7.0% ([facility]) TEST ONCE DAILY 100 Strip 5 [...] XL)Indications:SVT (supraventricular tachycardia) (HCC),NSVT (nonsustained ventricular tachycardia) ([facility]) TAKE ONE TABLET BY MOUTH EVERY [...] Dyspnea or Wheezing. 160 mL 3 05/24/2023 10/31/19 24 Active Full Kit Nebulizer Set Use with [...] ns:COPD, group D, by GOLD 2017 classification ([facility]) Take 1 Tablet by mouth in the morning. 30 Tablet 2 2023 11/26/19 24 Active Tiotropium [place] Monohydrate 18 MCG Inhalation Capsule (Spiriva HandiHaler) Inhale 1 Capsule by mouth in the morning. 30 Capsule 2 08/16/2023 11/17/19 24 Active Albuterol Sulfate HFA 108 (90 Base) MCG/ACT Inhalation Aerosol SolutionIndications :COPD, group D, by GOLD 2017 classification ([facility]) Inhale 2 Puffs by mouth every [...] 24 Hour (Imdur)Indications: Coronary artery disease involving viejas coronary artery without angina pectoris TAKE ONE TABLET BY MOUTH EVERY MORNING 100 Tablet 3 08/30/2023 08/30/19 25 Active Isosorbide Mononitrate ER 60 MG Oral Tablet Extended Release 24 Hour (Imdur)Indications: Coronary artery disease involving viejas coronary artery without angina pectoris TAKE ONE TABLET BY MOUTH EVERY MORNING 90 Tablet 3 09/18/2022 08/29/19 24 Discontinu ed(Refill) Hospital, Clinic, or Other Facility Administered Medication Ordered Dose Route Frequency Start Date End Date Status albuterol sulfate (PROVENTIL) (2.5 MG/3ML) 0.083% inhalation solution 2.5 mgIndications:COPD, severe (HCC) 2.5 mg NEBULIZER Q4H PRN 07/08/2018 Active documented as of this encounter (statuses as of 08/30/2023) Active Problems Problem Noted Date Diagnosed Date [...] tis 01/05/2014 Coronary artery disease invo lving viejas coronary artery of viejas heart without angina pectoris 11/27/2013 Tobacco abuse 11/27/2013 HTN, goal below 130/80 03/06/2009 Overview: Modified per HTN protocol #16. documented as of this encounter (statuses as of 08/30/2023) Resolved Problems Problem Noted Date Diagnosed Date [...] as of this encounter (statuses as of 08/30/2023) Immunizations Name Administration Dates Next Due COVID-19 mRNA, LNP-s, No Pre serve, 2-Dose Series ([place]) 02/25/2023,02/10/2022,07/13/2020,06/17 Pneumococcal Conjugate Vacc, 13 Valent (Prevnar) [...] encounter Miscellaneous Notes * Telephone Encounter - Natasha Tobin, [facility] - 08/30/2023 3:01 PM EDTSigned Prescriptions: Disp Refills Isosorbide Mononitrate ER 60 MG Oral Table*100 Ta*3 Sig: TAKE ONE TABLET BY MOUTH EVERY MORNINGAuthorizing Provider: JOHN NEWBY User: ANKUR TOBIN documented in this encounter Plan of Treatment Upcoming Encounters Date Type Department Care Team (Late st Contact Info) Description 09/01/2023 9:00 AM EDT Scheduled Telephone Palliative Medicine, [facility] [address] [facility] 5th Floor [place] [address] [place], Nurse Palliative Medicine [facility] 5th [address] [facility] [place] [address] 09/02/2023 11:00 AM EDT Laboratory Laboratory [address] [place] [phone] [place], Lab [address] [place] [address] 09/09/2023 11:00 AM EDT Office Visit Hematology/Oncology [facility] [place] [address] [facility] [phone] Lex[facility] [address] [facility] [address] 09/16/2023 9:00 AM EDT Office Visit Cardiology [facility] [address] [address] Desiy Aguirre CRNP [address] [place] [address] 10/19/2023 11:00 AM EDT Office Visit Cardiology [facility] [address] [place] [address] Deisy Aguirre CRNP [address] [place] [address] 10/27/2023 11:00 AM EDT Office Visit Orthopaedics [facility] [address] [facility] [place] [address] Zander Wilkins, DO [address] [place] [address] 12/01/2023 11:40 AM EDT Office Visit Podiatry [facility] [address] [facility] [place] [address] Bettye Herrmann, DPM [address] [facility] [place] [address] 01/18/2024 12:30 PM EDT Office Visit Sleep Disorders Ctr [facility] [address] [facility] [place] [phone] Hui Bishop CRNP [address] [facility] [place] [address] 01/19/2024 11:40 AM EDT Office Visit Family Practice [facility] [address] [facility] [place] [address] John Newby MD [address] [facility] [place] [address] 01/26/2024 10:00 AM EDT Imaging Radiology [facility] 1st [facility] [address] [facility] [place] [address] 02/01/2024 11:30 AM EDT Office Visit Radiation Oncology, [place] [address] [place] [address] [place] [address] Shawna Johnson MD [address] [place] [address] [place] [address] Scheduled Procedures Name Priority Associated Diagnoses Date/Ti [...] Additional history exists CKD PHOS USE SMARTSET 64265 04/15/202403/20, 06/05/2022, 06/03/2021, Additional history exists CKD HGB USE SMARTSET 33121 06/03/202406/03, 06/03/2023, 04/18/2023, Additional history exists Colonoscopy [...] this encounter Medical Devices Implanted Type Area Distance Education Teacher Device Identifier Shelf Expiration Date Model / Serial / Lot Lens Intraoc 24.0 - [id number] - [id number] Implanted:Qty: 1 on 06/01/2017 by Nikhil Bolton MD at OR [facility] Left: Eye [employer]OMB 07/17/2021 [id number] / [id number] / [id number] Lens Intraoc 24.0 - [id number] - [id number] Implanted:Qty: 1 on 06/08/2017 by Nikhil Bolton MD at OR [facility] Right: Eye BAUSCH [employer] LOMB 07/17/2021 [id number] / [id number] / [id number] documented as of this encounter Visit Diagnoses Diagnosis Coronary artery disease involving viejas coronary artery without angina pectoris documented in this encounter Advance Directives Documents on File Type Date Recorded 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 Care Teams Card Cleaner Relationship Specialty Start Date End Date John Newby MD [address] [place] [address] PCP - General Family Medicine 09/13/20 documented as of this encounter
--- OUTSIDE RECORDS SUMMARY | 2023-12-14 20:12 | External Medical Summary ---
Author Name Unknown Address Unknown Organization K01:LABORATORY [facility] [place] - [address] [place] [address] Laboratory Report Ordering Provider Test Date Status ZAINRAO 09/02/2023 10:16:54 Final Observation Date Value Abnormality Reference (Units ) Status Ferritin 09/02/2023 10:16:54 43 30-400 (ng /mL) Final Performing Location LABORATORY [facility] - [address] [place] [address]
--- OUTSIDE RECORDS SUMMARY | 2023-12-14 20:12 | External Medical Summary ---
Author Name Unknown Address Unknown Organization K01:LABORATORY [facility] [place] - [address] [place] [address] Laboratory Report Ordering Provider Test Date Status RAO PITTMAN 09/02/2023 10:16:54 Final Observation Date Value Abnormality Reference (Units ) Status WBC, Total 09/02/2023 10:16:54 6.50 4.00-10.80 (K/uL) Final RBC 09/02/2023 10:16:54 4.53 4.50-5.25 (M/uL) Final Hemoglobin 09/02/2023 10:16:54 12.5 Below low normal 14.0-16.8 (g/dL) Final HCT 09/02/2023 10:16:54 42.2 40.0-48.4 (%) Final MCV 09/02/2023 10:16:54 93.2 82.0-99.5 (fL) Final MCH 09/02/2023 10:16:54 27.6 27.0-34.0 (pg) Final MCHC 09/02/2023 10:16:54 29.6 32.0-36.0 (g/dL) Final RDW 09/02/2023 10:16:54 19.6 11.5-15.5 (%) Final Platelets 09/02/2023 10:16:54 244 140-400 (K/uL) Final MPV 09/02/2023 10:16:54 9.9 6.6-11.1 (fL) Final Nucleated erythrocytes/100 leukocytes [Ratio] in Blood by Automated count 09/02/2023 10:16:54 0 <=0 (/100 WBCs) Final Performing Location LABORATORY [facility] [place] - [address] [facility] [address] [place] [address]
--- OUTSIDE RECORDS SUMMARY | 2023-12-14 20:13 | External Medical Summary | Summary of Care ---
Author Name Unknown Organization [facility] Address [address] [place] [address] Phone [phone] Care Team Providers Care School Bus Dispatcher Name Role Phone Johnnie Newby MD Primary Care Provider [phone] Reason for Visit * Reason Onset Date Comments Precert Approved 05/14/[address] [facility] Encounter Details Date Type Department Care Team (Late st Contact Info) Description 05/14/2023 Telephone Pulmonary Medicine, [facility] [address] [facility] [place] [address] Hi Lopez MD [address] [place] [facility] [place] [address] Precert Approved ([facility]) Allergies Active Allergy Reactions Criticality Noted Date Comments Acetaminophen 05/06/2005 headaches documented as of this encounter (statuses as of 08/13/2023) Medications Medication Sig Dispensed Refills Start Date End Date Status DAILY MULTIVITAMIN PO TABS Take 1 Tablet by mouth daily. 0 Active BUSPAR 15 MG PO TABS Take 1 Tablet by mouth daily as needed. Uses as needed 0 Active clonazePAM (KLONOPIN) [...] 24 Hour (Imdur)Indications :Coronary artery disease involving iroquois coronary artery without angina pectoris TAKE ONE TABLET BY MOUTH EVERY MORNING 90 Tablet 3 3 024 Active Apixaban 5 MG Oral Tablet (Eliquis) Take 1 Tablet by mouth in the morning and 1 Tablet before bedtime. 180 Tablet 3 3 Active Metoprolol Succinate ER 25 MG Oral Tablet Extended Release 24 Hour (toPROL XL)Indications:SVT (supraventricular tachycardia) ([facility]),NSVT (nonsustained ventricular tachycardia) ([facility]) [...] at bedtime. 90 Capsule 3 4 Active Tiotropium [place] Monohydrate 18 MCG Inhalation Capsule (Spiriva) INHALE ONE CAPSULE VIA HANDIHALER EVERY MORNING. DO NOT SWALLOW CAPSULE. 90 Capsule 3 3 024 Discontinued(Re fill) Roflumilast 500 MCG Oral Tablet (Daliresp)Indicati ons:COPD, group D, by GOLD 2017 classification ([facility]) TAKE ONE TABLET BY MOUTH EVERY MORNING 90 Tablet 1 3 024 Discontinued(Re fill) Atorvastatin Calcium 80 MG Oral Tablet (Lipitor) TAKE ONE TABLET BY MOUTH AT BEDTIME 90 Tablet 1 3 024 Discontinued(Re fill) Colchicine 0.6 MG Oral Tablet Take 2 tablets by mouth. One hour later, take 1 tablet by mouth. Take 1 tablet by mouth once daily after until symptoms resolve. 90 Tablet 3 3 024 Discontinued(Re fill) Clopidogrel Bisulfate 75 MG Oral Tablet (pLAVix) Take 1 Tablet by mouth in the morning. 30 Tablet 11 4 024 Discontinued(Re fill) metFORMIN HCl 1000 MG Oral Tablet (Glucophage) TAKE ONE TABLET BY MOUTH EVERY MORNING 100 Tablet 1 4 024 Discontinued(Di scharged) Colchicine 0.3 MG OR TABS 1 Tablet. 0 3 024 Discontinued Fluticasone-Salmet gume 230-21 MCG/ACT Inhalation Aerosol (Advair HFA)Indications:CO PD, group B, by GOLD 2017 classification ([facility]) INHALE TWO PUFFS BY MOUTH EVERY MORNING AND INHALE TWO PUFFS BY MOUTH AT BEDTIME, RINSE MOUTH AFTER USE 36 g 3 4 024 Discontinued(Re fill) Airsupra 90-80 MCG/ACT Inhalation Aerosol (Albuterol-Budeson adama) Inhale 2 Puffs by mouth 3 times a day as needed for Wheezing or Dyspnea. 32.1 g 2 4 024 Discontinued(En d of Procedure) Hospital, Clinic, or Other Facility Administered Medication Ordered Dose Route Frequency Start Date End Date Status albuterol sulfate (PROVENTIL) (2.5 MG/3ML) 0.083% inhalation solution 2.5 mgIndications:COPD, severe (HCC) 2.5 mg NEBULIZER Q4H PRN 07/08/2018 Active documented as of this encounter (statuses as of 08/13/2023) Active Problems Problem Noted Date Diagnosed Date [...] tis 01/05/2014 Coronary artery disease invo lving iroquois coronary artery of iroquois heart without angina pectoris 11/27/2013 Tobacco abuse 11/27/2013 HTN, goal below 130/80 03/06/2009 Overview: Modified per HTN protocol #16. documented as of this encounter (statuses as of 08/13/2023) Resolved Problems Problem Noted Date Diagnosed Date [...] as of this encounter (statuses as of 08/13/2023) Immunizations Name Administration Dates Next Due COVID-19 mRNA, LNP-s, No Pre serve, 2-Dose Series ([place]) 02/25/2023,02/10/2022,07/13/2020,06/17 Pneumococcal Conjugate Vacc, 13 Valent (Prevnar) [...] Miscellaneous Notes * Telephone Encounter - Ethel Ventura LPN - 05/14/2023 1:28 PM EST Pt needs a PA on Airsupra documented in this encounter Plan of Treatment Upcoming Encounters Date Type Department Care Team (Late st Contact Info) Description 08/25/2023 1:00 PM EDT Office Visit Palliative Medicine [facility] [address] [facility] [phone] [facility] Germain [facility] [place] [address] 08/30/2023 10:20 AM EDT Office Visit Podiatry [facility] [address] [facility] [place] [address] Bettye Herrmann DPM 400 [facility] [place] [address] 09/02/2023 11:00 AM EDT Laboratory Laboratory [address] [place] [address] [address] [place] [address] 09/09/2023 11:00 AM EDT Office Visit Hematology/Oncology [facility] 200 [facility] [place] [phone] Lexie Palmer CRNP [address] [place] [address] 09/16/2023 9:00 AM EDT Office Visit Cardiology, [facility] [place] [place] [address] Deisy Aguirre CRNP [address] [place] [address] 10/19/2023 11:00 AM EDT Office Visit Cardiology, [facility] [address] [place] [address] Deisy Aguirre CRNP [address] [place] [address] 10/27/2023 11:00 AM EDT Office Visit Orthopaedics [facility] [address] [place] [address] Zander Wilkins DO [address] [place] [address] 01/18/2024 12:30 PM EDT Office Visit Sleep Disorders Ctr [facility] 132 [facility] [place] [phone] Hui Bishop CRNP [address] [place] [address] 01/19/2024 11:40 AM EDT Office Visit Family Practice [facility] [address] [facility] [place] [address] Johnnie Newby MD [address] [place] [address] 01/26/2024 10:00 AM EDT Imaging Radiology [facility] 1st Floor, [address] [place] [address] 02/01/2024 11:30 AM EDT Office Visit Radiation Oncology, [address] [place] [address] hSawna Johnson MD [address] [place] [address] [place] [address] Scheduled Procedures Name Priority Associated Diagnoses Date/Ti [...] Additional history exists CKD PHOS USE SMARTSET 64807 04/15/202403/20, 06/05/2022, 06/03/2021, Additional history exists CKD HGB USE SMARTSET 98850 06/03/202406/03, 06/03/2023, 04/18/2023, Additional history exists RETIRED - COLONOSCOPY-EVERY 2 YRS AGES 18-100 01/14/2025 01/14/2023, [...] this encounter Medical Devices Implanted Type Area Chain Saw Mechanic Device Identifier Shelf Expiration Date Model / Serial / Lot Lens Intraoc 24.0 - [id number] - [id number] Implanted:Qty: 1 on 06/01/2017 by Nikhil Bolton MD at OR [facility] Left: Eye [employer] 07/17/2021 [id number] / [id number] / [id number] Lens Intraoc 24.0 - [id number] - [id number] Implanted:Qty: 1 on 06/08/2017 by Nikhil Bolton MD at OR [facility] Right: Eye [employer] 07/17/2021 [id number] / [id number] / [id number] documented as of this encounter Advance Directives Documents on File Type Date Recorded Patient Application Development Specialist Expl oksanaion Advance Directives and Yu Watkins [...] and were consensually agreed upon. Care Teams School Bus Dispatcher Relationship Specialty Start Date End Date Johnnie Newby MD [address] [place] [address] PCP - General Family Medicine 09/13/20 documented as of this encounter
--- OUTSIDE RECORDS SUMMARY | 2023-12-14 20:13 | External Medical Summary | Summary of Care ---
Author Name Unknown Organization [facility] Address [address] [place] [address] Phone [phone] Care Team Providers Care Meat Passer Name Role Phone Johnnie Newby MD Primary Care Provider [phone] Encounter Details Date Type Department Care Team (Late st Contact Info) Description 08/17/2023 Refill Pulmonary Medicine, [facility] [address] [facility] [place] [address] Hi Dave MD [address] [place] [facility] [place] [address] COPD, group D, by GOLD 2017 classification ([facility])* Allergies Active Allergy Reactions Criticality Noted Date Comments Acetaminophen 05/06/2005 headaches documented as of this encounter (statuses as of 08/17/2023) Medications Medication Sig Dispensed Refills Start Date [...] 24 Hour (Imdur)Indications:C oronary artery disease involving wy[place] coronary artery without angina pectoris TAKE ONE [...] Wheezing. 160 mL 3 05/24/2023 4 Active Full Kit Nebulizer Set [...] D, by GOLD 2017 classification ([facility]) Take 1 Tablet by mouth in the morning. 30 Tablet 2 2023 4 Active Tiotropium [place] Monohydrate 18 MCG Inhalation Capsule (Spiriva HandiHaler) Inhale 1 Capsule by mouth in the morning. 30 Capsule 2 08/16/2023 4 Active Albuterol Sulfate HFA 108 (90 Base) MCG/ACT Inhalation Aerosol SolutionIndications: COPD, group D, by GOLD 2017 classification (HCC) Inhale 2 Puffs by mouth every 6 hours as needed for Dyspnea or Wheezing. 18 g 5 08/17/2023 Active Hospital, Clinic, or Other Facility Administered Medication Ordered Dose Route Frequency Start Date End Date Status albuterol sulfate (PROVENTIL) (2.5 MG/3ML) 0.083% inhalation solution 2.5 mgIndications:COPD, severe (HCC) 2.5 mg NEBULIZER Q4H PRN 07/08/2018 Active documented as of this encounter (statuses as of 08/17/2023) Active Problems Problem Noted Date Diagnosed Date [...] tis 01/05/2014 Coronary artery disease invo lving wyand[place] coronary artery of wy[place] heart without angina pectoris 11/27/2013 Tobacco abuse 11/27/2013 HTN, goal below 130/80 03/06/2009 Overview: Modified per HTN protocol #16. documented as of this encounter (statuses as of 08/17/2023) Resolved Problems Problem Noted Date Diagnosed Date [...] as of this encounter (statuses as of 08/17/2023) Immunizations Name Administration Dates Next Due COVID-19 mRNA, LNP-s, No Pre serve, 2-Dose Series (Cernium) 02/25/2023,02/10/2022,07/13/2020,06/17 Pneumococcal Conjugate Vacc, 13 Valent (Prevnar) [...] Telephone Encounter - Hi Dave MD - 08/17/2023 4:41 PM EDT Signed Prescriptions: Disp Refills Albuterol Sulfate HFA 108 (90 Base) MCG/AC*18 g 5 Sig: Inhale 2 Puffs by mouth every 6 hours as needed for Dyspnea or Wheezing.Authorizing Provider: HI DAVE * Telephone Encounter - Fifi Mcmahon [facility] - 08/17/2023 2:45 PM EDT Patient was contacted for annual medication review. During the call, patient mentioned he was prescribed Airsupra for rescue inhaler, but this medication was not covered by insurance. Patient is currently using Budesonide nebulizer treatments as needed, but he does not currently have a rescue inhaler on medication list. Discussed with patient and recommended new prescription for albuterol HFA - patient was agreeable if approved by provider. Rx pended for albuterol HFA. Please review and approve if appropriate. Please route back to me so Ican make patient aware. Pending Prescriptions: Disp Refills Albuterol Sulfate HFA 108 (90 Base) MCG/A*18 g 5 Sig: Inhale 2 Puffs by mouth every 6 hours as needed. Thank you, Fifi Mcmahon, PharmD Clinical Pharmacist [facility] ([facility]) (formerly Telepharmacy) 08/17/2023 2:48 PM documented in this encounter Plan of Treatment Upcoming Encounters Date Type Department Care Team (Late st Contact Info) Description 08/25/2023 1:00 PM EDT Office Visit Palliative Medicine [facility] 200 [facility] [place] [phone] Eliza Germain MD 400 [facility] [place], [place] [phone] 08/30/2023 10:20 AM EDT Office Visit Podiatry [facility] 132 [facility] [place] [address] Bettye Herrmann DPM [address] [place] [address] 09/02/2023 11:00 AM EDT Laboratory Laboratory [address] [place] [phone] [place] [address] 09/09/2023 11:00 AM EDT Office Visit Hematology/Oncology [address] [place] [phone] Lexie Palmer CRNP [address] [facility] [place] [phone] 09/16/2023 9:00 AM EDT Office Visit Cardiology, [facility] [address] [facility] [place] [address] Deisy Aguirre CRNP [address] [place] [address] 10/19/2023 11:00 AM EDT Office Visit Cardiology, [facility] [address] [place] [address] Deisy Aguirre CRNP [address] [place] [address] 10/27/2023 11:00 AM EDT Office Visit Orthopaedics [facility] [address] [place] [address] Zander Wilkins DO [address] [place] [address] 01/18/2024 12:30 PM EDT Office Visit Sleep Disorders Ctr [facility] [address] [place] [phone] Hui Bishop CRNP [address] [place] [address] 01/19/2024 11:40 AM EDT Office Visit Family Practice [facility] [address] [place] [address] Johnnie Newby MD [address] [place] [address] 01/26/2024 10:00 AM EDT Imaging Radiology [address] [place] [address] 02/01/2024 11:30 AM EDT Office Visit Radiation Oncology, [address] [place] [address] Shawna Johnson MD [facility] [place] [address] Scheduled Procedures Name Priority Associated Diagnoses Date/Ti me COLONOSCOPY FLEXIBLE PROXIMA L DIAGNOSTIC Recall History of colonic polyps Health Maintenance Due Date Last Done Comments COVID-19 Vaccine ( season) 2023 03/03/2023, 02/25/2023, 02/10/2022, Additional history exists DISCUSS TOBACCO CESSATION (REFER TO SMARTSET #2388) 05/01/2023 05/01/2022, 02/13/2022 Diabetic Eye Exam 07/09/2023 [...] Additional history exists CKD PHOS USE SMARTSET 89887 04/15/202403/20, 06/05/2022, 06/03/2021, Additional history exists CKD HGB USE SMARTSET 29225 06/03/202406/03, 06/03/2023, 04/18/2023, Additional history exists Colonoscopy [...] this encounter Medical Devices Implanted Type Area Spring Tacker Device Identifier Shelf Expiration Date Model / Serial / Lot Lens Intraoc 24.0 - [id number] - [id number] Implanted:Qty: 1 on 06/01/2017 by Nikhil Bolton MD at OR [facility] Left: Eye [employer] 07/17/2021 [id number] / [id number] / [id number] Lens Intraoc 24.0 - [id number] - [id number] Implanted:Qty: 1 on 06/08/2017 by Nikhil Bolton MD at OR [facility] Right: Eye [employer]CH [employer] LOMB 07/17/2021 [id number] / [id number] / [id number] documented as of this encounter Visit Diagnoses Diagnosis COPD, group D, by GOLD 2017 classification (HCC)- Primary documented in this encounter Advance Directives Documents on File Type Date Recorded Patient Fitter Hand Expl anation Advance Directives and uY fine Will 11/20/2005 ADVANCE DIRECTIVE Latest Code [...] were consensually agreed upon. Care Teams Meat Passer Relationship Specialty Start Date End Date Johnnie Newby MD [address] [place] [address] PCP - General Family Medicine 09/13/20 documented as of this encounter
--- OUTSIDE RECORDS SUMMARY | 2023-12-14 20:13 | External Medical Summary | Summary of Care ---
Author Name Unknown Organization [facility] Address [address] [place] [address] Phone [phone] Care Team Providers Care Case Work Aide Name Role Phone Johnnie Newby MD Primary Care Provider [phone] Reason for Visit * Reason Comments Medication Refill Encounter Details Date Type Department Care Team (Late st Contact Info) Description 08/16/2023 Refill Pulmonary Medicine, [facility] [address] [place] [address] Hi Dave MD [address] [place] [address] Allergies Active Allergy Reactions Criticality Noted Date Comments Acetaminophen 05/06/2005 headaches documented as of this encounter (statuses as of 08/16/2023) Medications Medication Sig Dispensed Refills Start Date [...] 24 Hour (Imdur)Indications: Coronary artery disease involving tejon coronary artery without angina pectoris TAKE ONE TABLET BY MOUTH EVERY MORNING 90 Tablet 3 09/18/2022 09/18/19 24 Active Apixaban 5 MG Oral Tablet (Eliquis) Take 1 Tablet by mouth in the morning and 1 Tablet before bedtime. 180 Tablet 3 12/08/2022 Active Metoprolol Succinate ER 25 MG Oral Tablet Extended Release 24 Hour (toPROL XL)Indications:SVT (supraventricular tachycardia) ([facility]),NSVT (nonsustained ventricular tachycardia) ([facility]) [...] in the morning. 30 Tablet 2 2023 11/09/19 24 Active Tiotropium [place] Monohydrate 18 MCG Inhalation Capsule (Spiriva HandiHaler) Inhale 1 Capsule by mouth in the morning. 30 Capsule 2 08/16/2023 11/14/19 24 Active Tiotropium [place] Monohydrate 18 MCG Inhalation Capsule (Spiriva) Inhale [...] as of this encounter (statuses as of 08/16/2023) Active Problems Problem Noted Date Diagnosed Date [...] tis 01/05/2014 Coronary artery disease invo lving tejon coronary artery of tejon heart without angina pectoris 11/27/2013 Tobacco abuse 11/27/2013 HTN, goal below 130/80 03/06/2009 Overview: Modified per HTN protocol #16. documented as of this encounter (statuses as of 08/16/2023) Resolved Problems Problem Noted Date Diagnosed Date [...] as of this encounter (statuses as of 08/16/2023) Immunizations Name Administration Dates Next Due COVID-19 mRNA, LNP-s, No Pre serve, 2-Dose Series ([employer]) 02/25/2023,02/10/2022,07/13/2020,06/17 Pneumococcal Conjugate Vacc, 13 Valent [...] Telephone Encounter - Hi Dave MD - 08/16/2023 3:50 PM EDT Signed Prescriptions: Disp Refills Tiotropium [place] Monohydrate 18 MCG Inha*30 Cap*2 Sig: Inhale 1 Capsule by mouth in the morning. Authorizing Provider: HI DAVE * Telephone Encounter - Ethel Ventura LPN - 08/16/2023 10:33 AM EDTPending Prescriptions: Disp Refills Tiotropium [place] Monohydrate 18 MCG Inha*30 Cap*2 Sig: Inhale1 Capsule by mouth in the morning. documented in this encounter Plan of Treatment Upcoming Encounters Date Type Department Care Team (Late st Contact Info) Description 08/25/2023 1:00 PM EDT Office Visit Palliative Medicine [facility] [address] [place] [phone] Eliza Germain MD [address] [facility] [place] [address] 08/30/2023 10:20 AM EDT Office Visit Podiatry [facility] 132 [facility] [place] [address] Bettye Herrmann DPM [address] [facility] [place] [address] 09/02/2023 11:00 AM EDT Laboratory Laboratory [address] [place] [phone] [place], [address] [place] [address] 09/09/2023 11:00 AM EDT Office Visit Hematology/Oncology [facility] [address] [facility] [phone] Lexie Palmer CRNP 400 [place] [address] 09/16/2023 9:00 AM EDT Office Visit Cardiology, [facility] [address] [place] [address] Deisy Aguirre CRNP [address] [place] [address] 10/19/2023 11:00 AM EDT Office Visit Cardiology, [facility] [address] [place] [address] Deisy Aguirre CRNP [address] [place] [address] 10/27/2023 11:00 AM EDT Office Visit Orthopaedics [facility] [address] [place] [address] Zander Wilkins, [address] [place] [address] 01/18/2024 12:30 PM EDT Office Visit Sleep Disorders Ctr [facility] 132 [facility] [place] [phone] Hui Bishop CRNP [address] [place] [address] 01/19/2024 11:40 AM EDT Office Visit Family Practice [facility] [address] [facility] [place] [address] Johnnie Newby MD [address] [place] [address] 01/26/2024 10:00 AM EDT Imaging Radiology [facility] 1st Floor, [place] [address] [facility] [place] [address] 02/01/2024 11:30 AM EDT Office Visit Radiation Oncology, [address] [place] [address] Shawna Johnson MD [address] [place] [address] [place] [address] Scheduled Procedures Name Priority Associated Diagnoses Date/Ti me COLONOSCOPY FLEXIBLE PROXIMA L DIAGNOSTIC Recall History of colonic polyps Health Maintenance Due Date Last Done Comments COVID-19 Vaccine ( season) 2023 03/03/2023, 02/25/2023, 02/10/2022, Additional history exists DISCUSS TOBACCO CESSATION (REFER TO SMARTSET #1401) 05/01/2023 05/01/2022, 02/13/2022 Diabetic Eye Exam 07/09/2023 [...] Additional history exists CKD PHOS USE SMARTSET 12316 04/15/202403/20, 06/05/2022, 06/03/2021, Additional history exists CKD HGB USE SMARTSET 21854 06/03/202406/03, 06/03/2023, 04/18/2023, Additional history exists Colonoscopy [...] this encounter Medical Devices Implanted Type Area Directory Assistance Operator Device Identifier Shelf Expiration Date Model / Serial / Lot Lens Intraoc 24.0 - [id number] - [id number] Implanted:Qty: 1 on 06/01/2017 by Nikhil Bolton MD at OR [facility] Left: Eye [employer]OM[employer] 07/17/2021 [id number] / [id number] / [id number] Lens Intraoc 24.0 - [id number] - [id number] Implanted:Qty: 1 on 06/08/2017 by Nikhil Bolton MD at OR [facility] Right: Eye [employer]OMB 07/17/2021 [id number] / [id number] / [id number] documented as of this encounter Advance Directives Documents on File Type Date Recorded 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 Care Teams Case Work Aide Relationship Specialty Start Date End Date Johnnie Newby MD [address] [place] [address] PCP - General Family Medicine 09/13/20 documented as of this encounter
--- OUTSIDE RECORDS SUMMARY | 2023-12-14 20:13 | External Medical Summary | Summary of Care ---
Author Name Unknown Organization [facility] Address [address] [place] [address] Phone [phone] Care Team Providers Care Service Correspondent Name Role Phone Johnnie Newby MD Primary Care Provider [phone] Encounter Details Date Type Department Care Team (Latest Contact Info) Description 08/09/2023 Medication Management [facility] [address] [place] [address] Fifi Mcmahon, [facility] [address] [place] [address] Referred for management of medication therapy* Allergies Active Allergy Reactions Criticality Noted Date [...] 24 Hour (Imdur)Indications: 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 180 Tablet 3 12/08/2022 Active Metoprolol Succinate ER 25 MG Oral Tablet Extended Release 24 Hour (toPROL XL)Indications:SVT (supraventricular tachycardia) ([facility]),NSVT (nonsustained ventricular tachycardia) ([facility]) TAKE ONE TABLET BY MOUTH EVERY [...] ns:COPD, group D, by GOLD 2017 classification ([facility]) Take 1 Tablet by mouth in the morning. 30 Tablet 2 2023 11/09/19 24 Active Tiotropium Leola Monohydrate 18 MCG Inhalation Capsule (Spiriva HandiHaler) Inhale 1 Capsule by mouth in the morning. 30 Capsule 2 08/16/2023 11/14/19 24 Active Wixela Inhub 250-50 MCG/ACT Inhalation Aerosol [...] 2 05/24/2023 08/10/19 24 Discontinu ed(Refill) Tiotropium Leola Monohydrate 18 MCG Inhalation Capsule (Spiriva) Inhale [...] tis 01/05/2014 Coronary artery disease invo lving coquille coronary artery of coquille heart without angina pectoris 11/27/2013 Tobacco abuse [...] as of this encounter Progress Notes * Fifi Mcmahon, [facility] - 08/09/2023 10:41 AM EDT Walter Don is a 77 year old male. Objective: Review of patient's allergies indicates: Allergen Reactions Tylenol [Acetaminophen] headaches Current Outpatient Medications - WARNING: List may be incomplete due to filtering Medication Sig Dispense Refill Tiotropium Leola Monohydrate 18 MCG Inhalation Capsule (Spiriva HandiHaler) Inhale 1 Capsule by mouth in the morning. 30 Capsule 2 Fluticasone-Salmeterol 250-50 MCG/ACT Inhalation Aerosol Powder Breath Activated (Advair Diskus) Inhale 1 Puff by mouth in the morning and 1 Puff before bedtime. 60 Each 2 Roflumilast 500 MCG Oral Tablet (Daliresp) Take 1 Tablet by mouth in the morning. 30 Tablet 2 Atorvastatin Calcium 80 MG Oral Tablet (Lipitor) TAKE ONE TABLET BY MOUTH AT BEDTIME 90 Tablet 1 Colchicine 0.6 MG Oral Tablet Take 2 tablets by mouth. One hour later, take 1 tablet by mouth. Take1 tablet by mouth once daily after until symptoms resolve. 90 Tablet 0 HYDROcodone-Acetaminophen 5-325 MG Oral Tablet Take 1 Tablet by mouth every 8 hours as needed for Pain, Severe. 90 Tablet 0 metFORMIN HCl ER 500 MG Oral Tablet Extended Release 24 Hour (Glucophage XR) Take 2 Tablets by mouth in the morning. 180 Tablet 3 Clopidogrel Bisulfate 75 MG Oral Tablet (pLAVix) Take 1 Tablet by mouth in the morning. 90 Tablet 2 Budesonide 0.25 MG/2ML Inhalation Suspension (Pulmicort) Inhale 0.25 mg via nebulizer 2 times a dayas needed for Dyspnea or Wheezing. 160 mL 3 Gabapentin 300 MG Oral Capsule (Neurontin) Take 1 Capsule by mouth at bedtime. 90 Capsule 3 Mirtazapine 15 MG Oral [...] doses in 15 minutes 75 Tablet 3 Omeprazole 20 MG Oral Capsule Delayed Release (PriLOSEC) TAKE ONE CAPSULE BY MOUTH EVERY MORNING *NEED UPDATED LABS* 90 Capsule 1 Fluticasone Propionate 50 MCG/ACT Nasal Suspension (Flonase) USE TWO SPRAYS IN EACH NOSTRIL IN THE MORNING 16 g 1 Furosemide 40 MG Oral Tablet (Lasix) Take 1 Tablet by mouth in the morning. 100 Tablet 1 Vitron-C 65-125 MG Oral Tablet (Iron-Vitamin C 65-125 mg per tab) Take 1 Tablet by mouth in the morning. Metoprolol Succinate ER 25 MG Oral Tablet Extended Release 24 Hour (toPROL XL) TAKE ONE TABLET BY MOUTH EVERY DAY 90 Tablet 3 Apixaban 5 MG Oral Tablet (Eliquis) Take 1 Tablet by mouth in the morning and 1 Tablet before bedtime. 180 Tablet 3 Isosorbide Mononitrate ER 60 MG Oral Tablet Extended Release 24 Hour (Imdur) TAKE ONE TABLET BY MOUTH EVERY MORNING 90 Tablet 3 Vitamin B-12 1000 MCG Oral Tablet (Cyanocobalamin) Take 1 Tablet by mouth in the morning. clonazePAM (KLONOPIN) 0.5 MG Tablet Take 1 Tablet by mouth daily as needed. 0 BUSPAR 15 MG PO TABS Take 1 Tablet by mouth daily as needed. DAILY MULTIVITAMIN PO TABS Take 1 Tablet by mouth daily. Full Kit Nebulizer Set Use with Nebulizer Medication EVERY FOUR HOURS as directed. Dx Code: J44.9 1 Each 3 busPIRone HCl 10 MG Oral Tablet (Buspar) take 1-2 tabs (10-20mg) by mouth twice daily as needed foranxiety (Patient not taking: Reported on 08/09/2023) 180 Tablet 0 BiPAP every night at bedtime. VIDA DiagnosticsTOUCH ULTRA BLUE STRP TEST ONCE DAILY 100 Strip 5 Immunization History Administered Date(s) Administered COVID-19 mRNA, LNP-s, No Preserve, 2-Dose Series (OpenNews) 06/17/2020, 07/13/2020, 02/10/2022, 02/25/2023 Pneumococcal Conjugate Vacc, 13 Valent (Prevnar) 04/06/2014 Pneumococcal Polysaccharide PPV23 (Pneumovax) 11/07/2015 Season Influenza, Quad, PF, Adjuvanted, 65+ Yrs, IM (FLUAD) 02/27/2020 Seasonal Influenza, Quadrivalent Hd (Fluzone Hd) 03/05/2021, 12/31/2022 Seasonal Influenza, Quadrivalent, No Preserve, IM 12/06/2017 Seasonal Influenza, Split, IIV3, With Preserve, Inj 01/05/2014 Seasonal Influenza, Trivalent, Adjuvanted, 65+ yrs 02/07/2019, 02/10/2022 TDAP (age 10 and older)(Boostrix) 01/05/2014 Varicella Zoster Vaccine (Adult) 01/05/2014 Zoster Vaccine Recombinant (Shingrix) 11/30/2019, 11/30/2019, 02/27/2020 TMR Interventions TMR Cost Savings - Multiple Inhalers: ADVAIR HFA AER 230/21;FLUTIC/SALME AER 250/50;SPIRIVA HANDIHALER,18 MCG,EA Incomplete Medication Therapy Recommendations No medication therapy recommendations to display Completed Medication Therapy Recommendations Referred for management of medication therapy Current Medication: Fluticasone-Salmeterol 250-50 MCG/ACT Inhalation Aerosol Powder Breath Activated (Advair Diskus) Rationale: Patient Education Recommendation: Provide Education Note: Patient counseled on maintenance inhaler. Reviewed proper administration and patient notes noissues with giving doses. Reminded to use inhaler daily to keep lungs healthy and rinse mouth aftereach use to prevent side effects. Patient also uses Spiriva daily with no issues. He still uses nebulizer tx PRN. He understands to contact PCP or go to ER if worsening SOB. Current Medication: Tiotropium Leola Monohydrate 18 MCG Inhalation Capsule (Spiriva HandiHaler) Rationale: More cost-effective medication available Recommendation: Provide Education Note: Patient has already tried and failed triple therapy inhaler due to needing higher ICS dose for control. Assessment & Plan Indication, effectiveness, safety and convenience of his medications were reviewed today. The patient's medical conditions were assessed, evaluated, and deemed meeting goals of drug therapy, with thefollowing exceptions. Additional Notes: CMR completed with spouse, Carrie, who helps manage medications. She states patient is adherent to medications and denies refills. Rxs filled with [facility]. Reviewed current inhaler therapy. Patient unfortunately failed Trelegy due to needing higher dose ICS for control. They also state he got Rx for Airsupra which was not covered. Patient already has budesonide nebulizer, so recommend he get new Rx for albuterol rescue inhaler - will send to pulmonary. Patient counseled on bleeding/bruising with Eliquis. He denies issues at this time. Reviewed signs to monitor for and when to seek emergency help. Summary Time Spent: 31-45 min Supervising pharmacist who provided the service: Swapna Doe Information Who was the recipient of the CMR service: other authorized individual Language Template for the Patient Takeaway: Indonesian I attest that I have reviewed and updated the patient's conditions, allergies, and medications to the best of my ability. Patient provided medication list gathered by: Deniz Chicas RPh 08/09/2023, 10:41 AM documented in this encounter Miscellaneous Notes * MTM To-Do-List - Fifi Mcmahon RPh - 08/17/2023 8:33 AM EDT Images from the original note were not included. What we talked about: What I should do: The importance of taking your medication as prescribed Your medicine works best when taken as prescribed. It can be hard to remember to take daily medications. Consider making it a part of your daily routine. Pair taking your medication with something you do every day, like brushing your teeth or eating a meal. Consider setting daily alarms to help remind yourself when it is time to take your medicine. Using a pill box can also help you organize your medicines. Pill boxes allow you to fill each day slot with your daily medicine and help you track when your next dose is due. What we talked about: What I should do: Monitoring for bleeding/bruising with Eliquis You are on a medication that can make you more likelyto bleed. If you notice any bruising that gets bigger, darker, or does not go away; or if you notice any blood in the toilet after you go to the bathroom or dark tarry stools, contact your doctor. What we talked about: What I should do: Rinsing your mouth after using your daily inhaler to prevent side effects (Advair) Your inhaler Advair could put you at an increase risk for throat irritation or even throat fungal infections (calledthrush). An easy way to keep your throat healthy is swishing and spitting with water after each use. What we talked about: What I should do: Signs of high or low blood sugar When your blood sugar is too high or too low your body could experience symptoms. Signs include: dizziness, shakiness, feeling hungry, feeling thirsty, sweatiness, nervousness, irritability, weakness, sleepiness, blurred vision, increased urination, lack of coordination. If you notice any of these signs, it is a great time to check your blood sugar. * [facility] Personal Medication List - Fifi Mcmahon RPh - 08/17/2023 8:19 AM EDT Medication How I take it Why I use it Prescriber Apixaban 5 MG Oral Tablet (Eliquis) Take 1 Tablet by mouth in the morning and 1 Tablet before bedtime. Blood Clot Prevention Warren Montoya, DO Atorvastatin Calcium 80 MG Oral Tablet (Lipitor) TAKE ONE TABLET BY MOUTH AT BEDTIME Cholesterol Johnnie Cyril Odin, MD Budesonide 0.25 MG/2ML Inhalation Suspension (Pulmicort) Inhale 0.25 mg by mouth via nebulizer 2 times a day as needed for Dyspnea or Wheezing. COPD Hi Lopez MD BUSPAR 15 MG PO TABS Take 1 Tablet by mouth daily as needed. Mood Manuel Lockhart MD clonazePAM (KLONOPIN) 0.5 MG Tablet Take 1 Tablet by mouth daily as needed. Anxiety Manuel Lockhart MD Clopidogrel Bisulfate 75 MG Oral Tablet (pLAVix) Take 1 Tablet by mouth in the morning. Blood Clot Prevention Johnnie Newby MD Colchicine 0.6 MG Oral Tablet Take 2 tablets by mouth once. One hour later, take 1 tablet by mouth.Then take 1 tablet by mouth once daily after until symptoms resolve. Gout Johnnie Newby MD DAILY MULTIVITAMIN PO TABS Take 1 Tablet by mouth daily. General Health Self FLUoxetine HCl 20 MG Oral Capsule (PROzac) Take 3 Capsules by mouth in the morning. Mood Johnnie Newby MD Fluticasone Propionate 50 MCG/ACT Nasal Suspension (Flonase) USE TWO SPRAYS IN EACH NOSTRIL IN THE MORNING Allergies Johnnie Newby MD Fluticasone-Salmeterol 250-50 MCG/ACT Inhalation Aerosol Powder Breath Activated (Advair Diskus) Inhale 1 Puff by mouth in the morning and 1 Puff before bedtime. COPD Hi Lopez MD Furosemide 40 MG Oral Tablet (Lasix) Take 1 Tablet by mouth in the morning. Blood Pressure/SwellingJohnnie Newby MD Gabapentin 300 MG Oral Capsule (Neurontin) Take 1 Capsule by mouth at bedtime. Nerve Pain Bettye Herrmann DPM HYDROcodone-Acetaminophen 5-325 MG Oral Tablet Take 1 Tablet by mouth every 8 hours as needed for Pain, Severe. Pain Johnnie Newby MD Isosorbide Mononitrate ER 60 MG Oral Tablet Extended Release 24 Hour (Imdur) TAKE ONE TABLET BY MOUTH EVERY MORNING Heart/Chest Pain Johnnie Newby MD metFORMIN HCl ER 500 MG Oral Tablet Extended Release 24 Hour (Glucophage XR) Take 2 Tablets by mouth in the morning. Diabetes Johnnie Newby MD Metoprolol Succinate ER 25 MG Oral Tablet Extended Release 24 Hour (toPROL XL) TAKE ONE TABLET BY MOUTH EVERY DAY Blood Pressure/Heart Warren Dayne Montoya, DO Mirtazapine 15 MG Oral Tablet (Remeron) Take one- half tablet by mouth every night Sleep Manuel Lockhart MD Nitroglycerin 0.4 MG Sublingual Tablet Sublingual (Nitrostat) Place 1 Tablet under the tongue every5 minutes as needed for Pain, Chest. up to 3 doses in 15 minutes Chest Pain Conor Cueto, DO Omeprazole 20 MG Oral Capsule Delayed Release (PriLOSEC) TAKE ONE CAPSULE BY MOUTH EVERY MORNING Heartburn Johnnie Newby MD risperiDONE 0.5 MG Oral Tablet (RisperDAL) Take one tablet by mouth every night at bedtime Mood Disorder Manuel Lockhart MD Roflumilast 500 MCG Oral Tablet (Daliresp) Take 1 Tablet by mouth in the morning. COPD Hi Lopez MD Tiotropium Leola Monohydrate 18 MCG Inhalation Capsule (Spiriva HandiHaler) Inhale 1 Capsule by mouth in the morning. COPD Hi Lopez MD Vitamin B-12 1000 MCG Oral Tablet (Cyanocobalamin) Take 1 Tablet by mouth in the morning. General Health Self Vitron-C 65-125 MG Oral Tablet (Iron-Vitamin C 65-125 mg per tab) Take 1 Tablet by mouth in the morning. General Health Self documented in this encounter Plan of Treatment Upcoming Encounters Date Type Department Care Team (Late st Contact Info) Description 08/25/2023 1:00 PM EDT Office Visit Palliative Medicine [facility] [address] [place] [address] Eliza Germain MD [address] [place] [address] 08/30/2023 10:20 AM EDT Office Visit Podiatry [facility] [address] [facility] [place] [address] Bettye Herrmann DPM [address] [place] [address] 09/02/2023 11:00 AM EDT Laboratory Laboratory [address] [place] [phone] [address] [place] [address] 09/09/2023 11:00 AM EDT Office Visit Hematology/Oncology [facility] [address] [facility] [place] [phone] Lexie Palmer CRNP [address] [place] [address] 09/16/2023 9:00 AM EDT Office Visit Cardiology, [facility] [address] [place] [address] Deisy Aguirre CRNP [address] [place] [address] 10/19/2023 11:00 AM EDT Office Visit Cardiology, [facility] [address] [place] [address] Deisy Aguirre CRNP [address] [place] [address] 10/27/2023 11:00 AM EDT Office Visit Orthopaedics [facility] [address] [place] [address] Zander iWlkins, [address] [place] [address] 01/18/2024 12:30 PM EDT Office Visit Sleep Disorders Ctr [facility] [address] [place] [phone] Hui Bishop CRNP [address] [place] [address] 01/19/2024 11:40 AM EDT Office Visit Family Practice [facility] [address] [place] [address] Johnnie Newby MD [address] [place] [address] 01/26/2024 10:00 AM EDT Imaging Radiology [facility] [address] [facility] [address] [place] [address] 02/01/2024 11:30 AM EDT Office Visit Radiation Oncology, [address] [place] [address] Shawna Johnson MD [address] [place] [address] [place] [address] Scheduled Procedures Name Priority Associated Diagnoses Date/Ti me COLONOSCOPY FLEXIBLE PROXIMA L DIAGNOSTIC Recall History of colonic polyps Health Maintenance Due Date Last Done Comments COVID-19 Vaccine ( season) 2023 03/03/2023, 02/25/2023, 02/10/2022, Additional history exists DISCUSS TOBACCO CESSATION (REFER TO SMARTSET #9028) 05/01/2023 05/01/2022, 02/13/2022 Diabetic Eye Exam 07/09/2023 [...] Additional history exists CKD PHOS USE SMARTSET 81317 04/15/202403/20, 06/05/2022, 06/03/2021, Additional history exists CKD HGB USE SMARTSET 14565 06/03/202406/03, 06/03/2023, 04/18/2023, Additional history exists Colonoscopy [...] this encounter Medical Devices Implanted Type Area Registration Representative Device Identifier Shelf Expiration Date Model / Serial / Lot Lens Intraoc 24.0 - [id number] - [id number] Implanted:Qty: 1 on 06/01/2017 by Nikhil Bolton MD at [facility] Left: Eye [employer] 07/17/2021 [id number] / [id number] / [id number] Lens Intraoc 24.0 - [id number] - [id number] Implanted:Qty: 1 on 06/08/2017 by Nikhil Bolton MD at OR [facility] Right: Eye [employer] 07/17/2021 [id number] / [id number] / [id number] documented as of this encounter Visit Diagnoses Diagnosis Referred for management of medication therapy- Primary Encounter for long-term (current) use of other medications documented in this encounter Advance Directives Documents on File Type Date 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 Care Teams Service Correspondent Relationship Specialty Start Date End Date Johnnie Newby MD [address] [place] [address] PCP - General Family Medicine 09/13/20 documented as of this encounter
--- OUTSIDE RECORDS SUMMARY | 2023-12-14 20:13 | External Medical Summary | Summary of Care ---
Author Name Unknown Organization [facility] Address [address] [place] [address] Phone [phone] Care Team Providers Care Automobile Insurance Claim Examiner Name Role Phone Johnnie Newby MD Primary Care Provider [phone] Reason for Visit * Reason Comments NEW PATIENT CLEATER * Evaluate & Treat - Unlimited Visits (Within 30 days (routine)) - Authorized Specialty Diagnoses / Procedures Referred By Treva judd Referred To Contact Hospice and Palliative Medicine / Palliative Medicine Diagnoses Symptomatic care patient Johnnie Newby MD [address] [place] [address] Referral ID Status Reason Start Date Expiration Date Visits Requested Visits Authorized [id number] Authorized Specialty Services Required 07/19/[phone] Encounter Details Date Type Department Care Team (Late st Contact Info) Description 08/25/2023 1:00 PM EDT Office Visit Palliative Medicine [facility] [address] [place] [address] Eliza Germain MD [address] [facility] [place] [address] Frailty*; Encounter for palliative care; Malignant neoplasm of right upper lobe of lung (HCC); COPD, group D, by GOLD 2017 classification ([facility]) Allergies Active Allergy Reactions Criticality Noted Date Comments Acetaminophen 05/06/2005 headaches documented as of this encounter (statuses as of 08/25/2023) Medications Medication Sig Dispensed Refills Start Date [...] Tablet 2 2023 4 Active Tiotropium [place] Monohydrate 18 MCG Inhalation Capsule (Spiriva HandiHaler) [...] every 6 hours as needed. 0 Active Hospital, Clinic, or Other Facility Administered Medication Ordered Dose Route Frequency Start Date End Date Status albuterol sulfate (PROVENTIL) (2.5 MG/3ML) 0.083% inhalation solution 2.5 mgIndications:COPD, severe (HCC) 2.5 mg NEBULIZER Q4H PRN 07/08/2018 Active documented as of this encounter (statuses as of 08/25/2023) Active Problems Problem Noted Date Diagnosed Date [...] as of this encounter (statuses as of 08/25/2023) Resolved Problems Problem Noted Date Diagnosed Date [...] as of this encounter (statuses as of 08/25/2023) Immunizations Name Administration Dates Next Due COVID-19 [...] Sign Reading Time Taken Comments Blood Pressure 112/61 08/25/2023 12:52 PM EDT Pulse 79 08/25/2023 12:52 PM EDT Temperature 36.6 C (97.8 F) 08/25/2023 12:52 PM E DT Respiratory Rate - - Oxygen Saturation 93% 08/25/2023 12:52 PM EDT Inhaled Oxygen Concentration - - Weight 87.8 kg (193 lb 8 oz) 08/25/2023 12:52 PM EDT Height 177.8 cm (5' 10") 08/25/2023 12:52 PM EDT Body Mass Index 27.76 08/25/2023 12:52 PM EDT documented in this [...] this encounter Patient Instructions * Patient Instructions* Britt Dalton LPN - 08/25/2023 12:51 PM EDT Our Palliative Medicine Clinic is available Wednesday through Wednesday during business hours, so we are unavailable on weekends and holidays. Please ensure that you request refills early in the week as itmay take 1-2 days for them to be addressed and filled, for authorizations to be approved, or for the pharmacy to order them if needed. You can contact our office at [phone], which is our clinic in [place], or you can message us on [facility]. If you have an emergency outside of these hours, we recommend calling your primary care clinic, Oncology office, or going to the ER if you have a medical emergency. documented in this encounter Progress Notes * Eliza Germain MD - 08/25/2023 1:00 PM EDT Images from the original note were not included. Palliative Medicine Outpatient Consult Note [facility] Palliative Medicine Outreach [address] [place] [address] Name: Walter Don Date: 08/25/2023 Referring Provider: Johnnie Newby MD Reason for Consult: Goals of care; Pain and symptom management Patient accompanied by daughter in law Restrepo, history obtained from patient HPI: Walter Don is a 78 year old male with a primary diagnosis of frailty. He has a hx of COPD group D, hx of CVA, recent lung CA (s/p radiation), recent NSTEMI (has known CAD with 100% total occlusion of physician aide and Lcx), he had a heart cath and they recommend CABG but given his comorbidities said he would not make it off the surgical table. He also has severe PTSD from when his was lost i n the hospital 55 years ago after giving to their son (she was unable to be located for 5 hours, he thought she had , she was in the surgical recovery room, the team there was not very emotionally supportive to him), making it hard for him to be in any sort of medical setting. Overall his goal is to focus on quality of life and avoiding the hospital. He does continue to smoke 1.5-2 packs per day. He wants to just be outside and work on cars. Palliative symptoms: Pain: yes, whole body hurts. 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 Located at: Shoulders hurt, can't move R arm behind neck. Upper back hurts. Lower back / knees hurt Nausea/Vomiting: no Constipation: no Confusion: no but memory worsened Sleep issues: no Dyspnea: yes, has COPD, asthma, lung cancer Mood: yes, as above, has severe PTSD, is following with psychiatry Falls: no Appetite: no Functional Status: - Palliative Performance Scale: 70% - Activities of Daily Living: (bolded items indicate areas of independence) 5/6 BADL (transfer, toilet, continence, bathe, dress self, feed self) needs help putting shoes/socks on 1/7 IADL (meds, transport, telephone, shop, housekeeping, meal prep, money management) SHx: Family Support: Lives with . Son and DIL are supportive but both live in [place]. 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 Eyes: anicteric, sclera and conjunctiva normal. Neck: no stridor Chest: normal respiratory effort Abdominal: nondistended Extremities: no edema, clubbing of hands + Neuro: alert, oriented to person, place, and time Psych: normal mood and affect Data Review: External notes reviewed: - [place] [facility] [place] reviewed cardiac issues - Reviewed notes from Dr Johnson on 07/27/23 from Radiation Oncology, plan is to monitor the lung lesions and recheck in 6 mo Lab / Imaging Results: Cr 1.7 on 04/18/23 Information obtained from daughter in law for collateral history Discussion with other team members: I discussed patient with Don from [address] [place] [address] about pt referral Decision-making Capacity: Does Patient have Decisional Capacity? y Does Patient have a Healthcare Agent? Y, Discussion with Patient & Family: Met with patient and daughter in law ( just had hip surgery so could not come). Introduced role of Outpatient Palliative Medicine team and reviewed symptoms as above. Reviewed patient's/family's understanding of current medical situation. He knows he is frail, feelshe is getting weaker. Wants to avoid hospital overall. Initially was resistant to hospice care, so was going to start with [facility], but since they do not go to his region Discussed ACP as below Advanced Care Planning: AD: Reports he has one at home Reviewed CPR risks/benefits - he says he would want CPR but we discussed risks/benefits more, he was too anxious to decide, advised to discuss w/ ASSESSMENT/PLAN: Walter Don is a/an 78 year old male referred for consultation to Palliative Medicine with theprimary diagnosis of: Frailty syndrome COPD with chronic bronchitis Severe PTSD CAD with recent NSTEMI, unable to get any cardiac interventions Active smoker R lung adenocarcinoma, s/p radiation Goals of care - stay home and out of the hospital. FULL code if admitted pending further discussionw/. Recommendations: Will refer to [address] [place] [address] for an informational session but will place order and send info. Pt does NOT want to discuss his PTSD episode in front of his Follow up PRN, nurse call in 1 weeks. Thank you for this consult. We appreciate the opportunity to take part in the care of your patient. Note routed back to referring provider/PCP MD Eliza Hardin MD [facility] Palliative Medicine [phone] documented in this encounter Nursing Notes * Lorenza Reyes MED ASSIST - 08/25/2023 12:54 PM EDT Patient identifed by name and birthdate Do [...] it for you? ALREADY ACTIVE Filed Vitals: 08/25/23 1252 BP: 112/61 Pulse: 79 Temp: 36.6 C (97.8 F) TempSrc: Tympanic SpO2: 93% Weight: 87.8 kg (193 lb 8 oz) Height: 1.778 m (5' 10") Patient was instructed to not get up [...] Care Team (Late st Contact Info) Description 08/30/2023 10:20 AM EDT Office Visit Podiatry [facility] 132 [facility] [place] [address] Bettye Herrmann DPM 400 [facility] [place] [address] 09/01/2023 9:00 AM EDT Scheduled Telephone Palliative Medicine, [facility] 400 [facility] 5th Floor [place] [address] [place], Nurse Palliative Medicine [facility] 5th [address] [facility] [place] [address] 09/02/2023 11:00 AM EDT Laboratory Laboratory [address] [place] [phone] [place], [address] [place] [address] 09/09/2023 11:00 AM EDT Office Visit Hematology/Oncology [facility] [phone] Lexie Palmer CRNP 400 [place] [address] 09/16/2023 9:00 AM EDT Office Visit Cardiology, [facility] [address] [place] [address] Deisy Aguirre CRNP [address] [place] [address] 10/19/2023 11:00 AM EDT Office Visit Cardiology, [facility] [address] [place] [address] Deisy Aguirre CRNP [address] [place] [address] 10/27/2023 11:00 AM EDT Office Visit Orthopaedics [facility] [address] [place] [address] Zander Wilkins DO [address] [place] [address] 01/18/2024 12:30 PM EDT Office Visit Sleep Disorders Ctr [facility] [address] [place] [phone] Hui Bishop CRNP [address] [place] [address] 01/19/2024 11:40 AM EDT Office Visit Family Practice [facility] [address] [place] [address] Johnnie Newby MD [address] [place] [address] 01/26/2024 10:00 AM EDT Imaging Radiology [facility] [address] [place] [address] 02/01/2024 11:30 AM EDT Office Visit Radiation Oncology, [address] [place] [address] Shawna Johnson MD [address] [place] [address] [place] [address] Scheduled Procedures Name Priority Associated Diagnoses Date/Ti [...] Additional history exists CKD PHOS USE SMARTSET 27958 04/15/202403/20, 06/05/2022, 06/03/2021, Additional history exists CKD HGB USE SMARTSET 31720 06/03/202406/03, 06/03/2023, 04/18/2023, Additional history exists Colonoscopy [...] this encounter Medical Devices Implanted Type Area Claim Professional Device Identifier Shelf Expiration Date Model / Serial / Lot Lens Intraoc 24.0 - [id number] - [id number] Implanted:Qty: 1 on 06/01/2017 by Nikhil Bolton MD at OR [facility] Left: Eye BAUSCH & LOMB 07/17/2021 [id number] / [id number] / [id number] Lens Intraoc 24.0 - [id number] - [id number] Implanted:Qty: 1 on 06/08/2017 by Nikhil Bolton MD at OR [facility] Right: Eye BAUSCH & LOMB 07/17/2021 [id number] / [id number] / [id number] documented as of this encounter Visit Diagnoses Diagnosis Frailty- Primary Senility without mention of psychosis Encounter for palliative care Malignant neoplasm of right upper lobe of lung (HCC) Malignant neoplasm of upper lobe, bronchus or lung COPD, group D, by GOLD 2017 classification (HCC) documented in this encounter Advance Directives Documents on File Type Date Recorded Patient [employer] Dean Expl 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 Care Teams Automobile Insurance Claim Examiner Relationship Specialty Start Date End Date Johnnie Newby MD [address] [place] [address] PCP - General Family Medicine 09/13/20 documented as of this encounter
--- OUTSIDE RECORDS SUMMARY | 2023-12-14 20:13 | External Medical Summary | Summary of Care ---
Author Name Unknown Organization [facility] Address [address] [place] [address] Phone [phone] Care Team Providers Care Spool Worker Name Role Phone Johnnie Newby MD Primary Care Provider [phone] Encounter Details Date Type Department Care Team (Latest Contact Info) Description 08/09/2023 Medication Management [facility] [address] [place] [address] Fifi Mcmahon, [facility] [address] [place] [address] Referred for management of medication therapy* Allergies [...] hemoglobin A1c goal of less than 7.0% ([facility]) TEST ONCE DAILY 100 Strip 5 03/02/2018 Active BiPAP every night at bedtime. 0 Active Vitamin B-12 1000 MCG Oral Tablet (Cyanocobalamin) Take 1 Tablet by mouth in the morning. 0 Active Isosorbide Mononitrate ER 60 MG Oral Tablet Extended Release 24 Hour (Imdur)Indications: Coronary artery disease involving [place] coronary artery without angina pectoris TAKE ONE TABLET BY MOUTH EVERY MORNING 90 Tablet 3 09/18/2022 09/18/19 24 Active Apixaban 5 MG Oral Tablet (Eliquis) Take 1 Tablet by mouth in the morning and 1 Tablet before bedtime. 180 Tablet 3 12/08/2022 Active Metoprolol Succinate ER 25 MG Oral Tablet Extended Release 24 Hour (toPROL XL)Indications:SVT (supraventricular tachycardia) ([facility]),NSVT (nonsustained ventricular tachycardia) ([facility]) TAKE ONE TABLET BY MOUTH EVERY [...] by GOLD 2017 classification ([facility]) Take 1 Tablet by mouth in the morning. 30 Tablet 2 2023 11/09/19 24 Active Tiotropium [place] Monohydrate 18 MCG Inhalation Capsule (Spiriva HandiHaler) [...] 2 05/24/2023 08/10/19 24 Discontinu ed(Refill) Tiotropium [place] Monohydrate 18 MCG Inhalation Capsule (Spiriva) Inhale [...] tis 01/05/2014 Coronary artery disease invo lving [place] coronary artery of [place] heart without angina pectoris 11/27/2013 Tobacco abuse [...] this encounter Progress Notes * Fifi Mcmahon, [facility] - 08/09/2023 10:41 AM EDT Walter Don is a 77 year old male. Objective: Review of patient's allergies indicates: Allergen Reactions Tylenol [Acetaminophen] headaches Current Outpatient Medications - WARNING: List may be incomplete due to filtering Medication Sig Dispense Refill Tiotropium [place] Monohydrate 18 MCG Inhalation Capsule (Spiriva HandiHaler) [...] Tablet 0 BiPAP every night at bedtime. ProtonMailTOUCH ULTRA BLUE STRP TEST ONCE DAILY 100 Strip 5 Immunization History Administered Date(s) Administered COVID-19 mRNA, LNP-s, No Preserve, 2-Dose Series ([employer]) 06/17/2020, 07/13/2020, 02/10/2022, 02/25/2023 Pneumococcal Conjugate Vacc, [...] ER if worsening SOB. Current Medication: Tiotropium [place] Monohydrate 18 MCG Inhalation Capsule (Spiriva HandiHaler) [...] individual Language Template for the Patient Takeaway: Setswana I attest that I have reviewed and [...] time to check your blood sugar. * [facility] Personal Medication List - Fifi Mcmahon [...] the morning. COPD Hi Lopez MD Tiotropium [place] Monohydrate 18 MCG Inhalation Capsule (Spiriva HandiHaler) [...] 1:00 PM EDT Office Visit Palliative Medicine [facility] [address] [facility] [place] [address] Eliza Germain MD [address] [place] [address] 08/30/2023 10:20 AM EDT Office Visit Podiatry [facility] 132 [facility] [place] [address] Bettye Herrmann DPM [address] [place] [address] 09/02/2023 11:00 AM EDT Laboratory Laboratory [address] [place] [phone] [address] [place] [address] 09/09/2023 11:00 AM EDT Office Visit Hematology/Oncology [facility] 200 [facility] [place] [phone] Lexie Palmer CRNP [address] [place] [address] 09/16/2023 9:00 AM EDT Office Visit Cardiology, [facility] [address] [place] [address] Deisy Aguirre CRNP [address] [place] [address] 10/19/2023 11:00 AM EDT Office Visit Cardiology, [facility] [address] [place] [address] Deisy Aguirre CRNP [address] [place] [address] 10/27/2023 11:00 AM EDT Office Visit Orthopaedics [facility] [address] [place] [address] Zander Wilkins, [address] [place] [address] 01/18/2024 12:30 PM EDT Office Visit Sleep Disorders Ctr [facility] [address] [place] [phone] Hiu Bishop CRNP [address] [place] [address] 01/19/2024 11:40 AM EDT Office Visit Family Practice [facility] [address] [place] [address] Johnnie Newby MD [address] [place] [address] 01/26/2024 10:00 AM EDT Imaging Radiology [facility] [address] [place] [address] 02/01/2024 11:30 AM EDT Office Visit Radiation Oncology, [address] [place] [address] Shawna Johnson MD [address] [place] [address] [place] [address] Scheduled Procedures Name Priority Associated Diagnoses Date/Ti me COLONOSCOPY FLEXIBLE PROXIMA L DIAGNOSTIC Recall History of colonic polyps Health Maintenance Due Date Last Done Comments COVID-19 Vaccine ( season) 2023 03/03/2023, 02/25/2023, 02/10/2022, Additional history exists DISCUSS TOBACCO CESSATION (REFER TO SMARTSET #1788) 05/01/2023 05/01/2022, 02/13/2022 Diabetic Eye Exam 07/09/2023 [...] Additional history exists CKD PHOS USE SMARTSET 48026 04/15/202403/20, 06/05/2022, 06/03/2021, Additional history exists CKD HGB USE SMARTSET 76707 06/03/202406/03, 06/03/2023, 04/18/2023, Additional history exists Colonoscopy [...] this encounter Medical Devices Implanted Type Area Meter Technician Device Identifier Shelf Expiration Date Model / Serial / Lot Lens Intraoc 24.0 - [id number] - [id number] Implanted:Qty: 1 on 06/01/2017 by Nikhil Bolton MD at [facility] Left: Eye BAUSCH & LOMB 07/17/2021 [id number] / [id number] / [id number] Lens Intraoc 24.0 - [id number] - [id number] Implanted:Qty: 1 on 06/08/2017 by Nikhil Bolton MD at OR [facility] Right: Eye BAUSCH & LOMB 07/17/2021 [id number] / [id number] / [id number] documented as of this encounter Visit Diagnoses Diagnosis Referred for management of medication therapy- Primary Encounter for long-term (current) use of other medications documented in this encounter Advance Directives Documents on File Type Date Recorded Patient Optical Mechanic Expl 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 Care Teams Spool Worker Relationship Specialty Start Date End Date Johnnie Newby MD [address] [place] [address] PCP - General Family Medicine 09/13/20 documented as of this encounter
--- OUTSIDE RECORDS SUMMARY | 2023-12-14 20:13 | External Medical Summary | Summary of Care ---
Author Name Unknown Organization [facility] Address [address] [place] [address] Phone [phone] Care Team Providers Care Esol Instructor Name Role Phone Johnnie Newby MD Primary Care Provider [phone] Reason for Visit * Reason Onset Date Comments Palliative Care Follow-up 08/25/2023 Encounter Details Date Type Department Care Team (Late st Contact Info) Description 08/25/2023 Telephone Palliative Medicine, [address] 5th [place] [address] Eliza Germain MD [address] [place] [address] Palliative Care Follow-up Allergies Active Allergy Reactions Criticality Noted Date [...] 30 Tablet 2 2023 4 Active Tiotropium [place] Monohydrate 18 MCG Inhalation Capsule (Spiriva HandiHaler) [...] mRNA, LNP-s, No Pre serve, 2-Dose Series ([employer]) 02/25/2023,02/10/2022,07/13/2020,06/17 Pneumococcal Conjugate Vacc, 13 Valent (Prevnar) [...] Telephone Encounter - Britt Dalton LPN - 08/25/2023 2:07 PM EDT Hospice order, notes, demographics, and insurance info faxed to [phone] Will f/u in 1 week documented in this encounter Plan of Treatment Upcoming Encounters Date Type Department Care Team (Late st Contact Info) Description 08/30/2023 10:20 AM EDT Office Visit Podiatry [facility] 132 [facility] [place] [address] Bettye Herrmann, [facility] [address] [place] [address] [place] [address] 09/01/2023 9:00 AM EDT Scheduled Telephone Palliative Medicine, [address] 5th Floor [place] [address] [place], Nurse Palliative Medicine [facility] 5th 400 [facility] [place] [address] 09/02/2023 11:00 AM EDT Laboratory Laboratory [address] [place] [phone] [place], [address] [place] [address] 09/09/2023 11:00 AM EDT Office Visit Hematology/Oncology [facility] [phone] Lexie Palmer [facility]NP [address] [facility] [address] 09/16/2023 9:00 AM EDT Office Visit Cardiology, [facility] [address] [place] [address] Deisy Aguirre CRNP [address] [place] [address] 10/19/2023 11:00 AM EDT Office Visit Cardiology, [facility] [address] [place] [address] Deisy Aguirre CRNP [address] [place] [address] 10/27/2023 11:00 AM EDT Office Visit Orthopaedics [facility] [address] [place] [address] Zander Wilkins, [address] [place] [address] 01/18/2024 12:30 PM EDT Office Visit Sleep Disorders Ctr [facility] [address] [place] [phone] Hui Bishop CRNP [address] [place] [address] 01/19/2024 11:40 AM EDT Office Visit Family Practice [facility] [address] [place] [address] Johnnie Newby MD [address] [place] [address] 01/26/2024 10:00 AM EDT Imaging Radiology [address] [place] [address] 02/01/2024 11:30 AM EDT Office Visit Radiation Oncology, [address] [place] [address] Shawna Johnson MD [address] [place] [address] [place] [address] Scheduled Procedures Name Priority Associated Diagnoses Date/Ti [...] Additional history exists CKD PHOS USE SMARTSET 12217 04/15/202403/20, 06/05/2022, 06/03/2021, Additional history exists CKD HGB USE SMARTSET 29259 06/03/202406/03, 06/03/2023, 04/18/2023, Additional history exists Colonoscopy [...] this encounter Medical Devices Implanted Type Area Sinker Puller Device Identifier Shelf Expiration Date Model / Serial / Lot Lens Intraoc 24.0 - [id number] - [id number] Implanted:Qty: 1 on 06/01/2017 by Nikhil Bolton MD at OR [facility] Left: Eye BAUSCH & LOMB 07/17/2021 [id number] / [id number] / [id number] Lens Intraoc 24.0 - [id number] - [id number] Implanted:Qty: 1 on 06/08/2017 by Nikhil Bolton MD at OR [facility] Right: Eye BAUSCH & LOMB 07/17/2021 [id number] / [id number] / [id number] documented as of this encounter Advance Directives Documents on File Type Date Recorded Patient Byproducts Supervisor Expl 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 Care Teams Esol Instructor Relationship Specialty Start Date End Date Johnnie Newby MD [address] [place] [address] PCP - General Family Medicine 09/13/20 documented as of this encounter
--- OUTSIDE RECORDS SUMMARY | 2023-12-14 20:13 | External Medical Summary | Summary of Care ---
Author Name Unknown Organization [facility] Address [address] [place] [address] Phone [phone] Care Team Providers Care Dredge Worker Name Role Phone Johnnie Newby MD Primary Care Provider [phone] Reason for Visit * Reason Comments Diabetic Foot Care Encounter Details Date Type Department Care Team (Late st Contact Info) Description 08/30/2023 10:20 AM EDT Office Visit Podiatry [facility] [address] [place] [address] Bettye Herrmann, DPM [address] [place] [address] Type 2 diabetes mellitus with diabetic neuropathy, without long-term current use of insulin ([facility])*; Pain in both feet; Onychomycosis; Pre-ulcerative calluses; Left foot pain Allergies Active Allergy Reactions Criticality Noted Date [...] 24 Hour (Imdur)Indications:C oronary artery disease involving [place] coronary [...] by GOLD 2017 classification ([facility]) Take 1 Tablet by mouth in the morning. 30 Tablet 2 2023 4 Active Tiotropium [place] Monohydrate 18 MCG Inhalation Capsule (Spiriva HandiHaler) Inhale 1 Capsule by mouth in the morning. 30 Capsule 2 08/16/2023 4 Active Albuterol Sulfate HFA 108 (90 Base) MCG/ACT Inhalation Aerosol SolutionIndications: COPD, group D, by GOLD 2017 classification ([facility]) Inhale 2 Puffs by mouth [...] every 6 hours as needed. 0 Active methylPREDNISolone 4 MG Oral Tablet Therapy Pack (Medrol Dosepack) follow package directions 21 Tablet 0 08/30/2023 Active Hospital, Clinic, or Other Facility Administered [...] mRNA, LNP-s, No Pre serve, 2-Dose Series ([employer]) 02/25/2023,02/10/2022,07/13/2020,06/17 Pneumococcal Conjugate Vacc, 13 Valent (Prevnar) [...] this encounter Progress Notes * Bettye Herrmann, SAMM - 08/30/2023 10:06 AM EDT Podiatry Established Note [facility] Name: Walter Don : 1945 Date: 08/30/2023 REASON FOR VISIT: foot care SUBJECTIVE: This patient is a 78 year old male who presents today for diabetic foot care. He has chronic callosities to both feet which are very tender. He also has fungal nails of which he cannot reach and trim himself. He feels the plantar first toe callus left side is the cause of his severe toepain. Lastly, he notes left foot pain. This was worse - starting at the lateral midfoot and now radiating towards his ankle joint. He denies injury and questions if this is gout. He has taken a medication that he thinks I prescribed for gout which helped. He reports being on hospice. Last PCP appt with Dr. Newby was 07/20/2023. Past Medical History: Diagnosis Date Anemia of [...] 8 weeks COPD (chronic obstructive pulmonary disease) ([facility]) COPD with emphysema ([facility]) Depression with anxiety 06/05/2022 Diabetic peripheral neuropathy ([facility]) 01/15/2023 Diverticulosis of large intestine [...] hemoglobin A1c goal of less than 8.0% ([facility]) 10/23/2014 ICD-10 update of inactive [...] 2. Pain in both feet 3. Onychomycosis TA T1 T2 T3 T4 T5 T6 T7 T8 T9 4. Pre-ulcerative calluses x 5 5. Left foot pain PLAN: Procedure: After prepping the area with alcohol and allowing to dry, the hyperkeratotic lesions to the bilateral plantar foot and first toe (5 total) were sharply pared of all hyperkeratotic skin. This was performed with a #15 blade. An electrical umbrella bur was used to reduce any remaining edges. Pin pointbleeding was noted to the left first toe. I applied silver nitrate. He is to contact me with any issues or concerns. Procedure: After mild cleansing and drying of feet, toenails 1-5 right and 2-5 left were manually and mechanically debrided. A nail splitter was used to remove all incurvating edges. A fuse cutter was used to trim nail to appropriate length. An electrical bur was used in a side to side motion to reduce nail thickness, hypertrophic growth, and to smooth all edges. Patient tolerated well. As far as left foot pain, we discussed gout. Given pain is improving, I recommended we hold off on uric acid lab. We reviewed his medications. I question if he is taking gabapentin. This would likelynot help gout or acute tendinitis/arthritis flare. I did prescribe a medrol dosepak. Orders Placed This Encounter Medications methylPREDNISolone 4 MG Oral Tablet Therapy Pack (Medrol Dosepack) Sig: follow package directions Dispense: 21 Tablet Refill: 0 Follow up: 3 months foot care documented in this encounter Nursing Notes * Denise Parikh LPN - 08/30/2023 10:01 AM EDT Pt presents for diabetic nail care, has pain in feet, a 1/10 while sitting documented in this encounter Plan of Treatment Upcoming Encounters Date Type Department Care Team (Late st Contact Info) Description 09/01/2023 9:00 AM EDT Scheduled Telephone Palliative Medicine, [facility] [address] [facility] 5th [place] [address] Ne, Nurse Palliative Medicine [facility] 5th 400 [place] [address] 09/02/2023 11:00 AM EDT Laboratory Laboratory [address] [place] [phone] [place] [address] 09/09/2023 11:00 AM EDT [facility] [address] [facility] [place] [phone] Lexie Palmer CRNP 400 [place] [address] 09/16/2023 9:00 AM EDT Office Visit Cardiology, [facility] [address] [facility] [place] [address] Deisy Aguirre CRNP [address] [place] [address] 10/19/2023 11:00 AM EDT Office Visit Cardiology, [facility] [address] [place] [address] Deisy Aguirre CRNP [address] [place] [address] 10/27/2023 11:00 AM EDT Office Visit Orthopaedics [facility] [address] [facility] [place] [address] Zander Wilkins DO [address] [place] [address] 12/01/2023 11:40 AM EDT Office Visit Podiatry [facility] [address] [facility] [place] [address] Bettye Herrmann, [address] [address] 01/18/2024 12:30 PM EDT Office Visit Sleep Disorders Ctr [facility] [address] [facility] [place] [phone] Hui Bishop CRNP [address] [place] [address] 01/19/2024 11:40 AM EDT Office Visit Family Practice [facility] [address] [facility] [place] [address] Johnnie Newby MD [address] [place] [address] 01/26/2024 10:00 AM EDT Imaging Radiology [address], [place] [address] [facility] [place] [address] 02/01/2024 11:30 AM EDT Office Visit Radiation Oncology, [address] [place] [address] Shawna Johnson MD [address] [place] [address] [place] [address] Scheduled Procedures Name Priority Associated Diagnoses Date/Ti [...] Additional history exists CKD PHOS USE SMARTSET 03779 04/15/202403/20, 06/05/2022, 06/03/2021, Additional history exists CKD HGB USE SMARTSET 30905 06/03/202406/03, 06/03/2023, 04/18/2023, Additional history exists Colonoscopy [...] this encounter Medical Devices Implanted Type Area Waxing Machine Operator Device Identifier Shelf Expiration Date Model / Serial / Lot Lens Intraoc 24.0 - [id number] - [id number] Implanted:Qty: 1 on 06/01/2017 by Nikhil Bolton MD at OR [facility] Left: Eye [employer]OM[employer] 07/17/2021 [id number] / [id number] / [id number] Lens Intraoc 24.0 - [id number] - [id number] Implanted:Qty: 1 on 06/08/2017 by Nikhil Bolton MD at OR [facility] Right: Eye [employer] LOMB 07/17/2021 [id number] / [id number] / [id number] documented as of this encounter Visit Diagnoses Diagnosis Type 2 diabetes mellitus with diabetic neuropathy, without long-term current use of insulin (HCC)- Primary Pain in both feet Pain in limb Onychomycosis Dermatophytosis of nail Pre-ulcerative calluses Corns and callosities Left foot pain Pain in limb documented in this encounter Advance Directives Documents on File Type Date Recorded Patient Magazine Hand Expl anation Advance Directives and Yu [...] and were consensually agreed upon. Care Teams Dredge Worker Relationship Specialty Start Date End Date Johnnie Newby MD [address] [place] [address] PCP - General Family Medicine 09/13/20 documented as of this encounter
--- OUTSIDE RECORDS SUMMARY | 2023-12-14 20:14 | External Medical Summary | Summary of Care ---
Author Name Unknown Organization [facility] Address [address] [place] [address] Phone [phone] Care Team Providers Care Roofing Sales Representative Name Role Phone Johnnie Newby MD Primary Care Provider [phone] Reason for Visit * Reason Comments Medication Refill Encounter Details Date Type Department Care Team (Late st Contact Info) Description 2023 Refill Pulmonary Medicine, [facility] [address] [facility] [place] [address] Hi Dave MD [address] [place], [place] [id number] COPD, group D, by GOLD 2017 classification ([facility]) Allergies Active Allergy Reactions Criticality Noted Date Comments Acetaminophen 05/06/2005 headaches documented as of this encounter (statuses as of 2023) Medications Medication Sig Dispensed Refills Start Date End Date Status DAILY MULTIVITAMIN PO TABS Take 1 Tablet by mouth daily. 0 Active BUSPAR 15 MG PO TABS Take 1 Tablet by mouth daily as needed. Uses as needed 0 Active clonazePAM (KLONOPIN) 0.5 MG Tablet Uses as needed 0 06/17/2016 Active Celsias ULTRA BLUE STRPIndications:Typ e 2 diabetes mellitus with hemoglobin A1c goal of less than 7.0% ([facility]) TEST ONCE DAILY 100 Strip [...] Release 24 Hour (toPROL XL)Indications:SVT (supraventricular tachycardia) ([facility]),NSVT (nonsustained ventricular tachycardia) ([facility]) TAKE ONE TABLET BY MOUTH [...] 160 mL 3 05/24/2023 10/31/19 24 Active Tiotropium [place] Monohydrate 18 MCG Inhalation Capsule (Spiriva) Inhale 1 Capsule by mouth in the morning. 30 Capsule 2 05/24/2023 08/24/19 24 Active Full Kit Nebulizer Set Use [...] Puff before bedtime. 60 Each 2 2023 11/08/19 24 Active Roflumilast 500 MCG Oral Tablet (Daliresp)Indicatio ns:COPD, group D, by GOLD 2017 classification ([facility]) Take 1 Tablet by mouth in the morning. 30 Tablet 2 2023 11/08/19 24 Active Wixela Inhub 250-50 MCG/ACT Inhalation [...] Tablet 2 05/24/2023 08/10/19 24 Discontinu ed(Refill) Hospital, Clinic, or Other Facility Administered Medication Ordered Dose Route Frequency Start Date End Date Status albuterol sulfate (PROVENTIL) (2.5 MG/3ML) 0.083% inhalation solution 2.5 mgIndications:COPD, severe (HCC) 2.5 mg NEBULIZER Q4H PRN 07/08/2018 Active documented as of this encounter (statuses as of 2023) Active Problems Problem Noted Date Diagnosed Date [...] as of this encounter (statuses as of 2023) Resolved Problems Problem Noted Date Diagnosed Date [...] as of this encounter (statuses as of 2023) Immunizations Name Administration Dates Next Due COVID-19 [...] Telephone Encounter - Hi Dave MD - 2023 10:16 AM EDT Signed Prescriptions: Disp Refills Fluticasone-Salmeterol 250-50 MCG/ACT Inha*60 Each2 Sig: Inhale 1 Puff by mouth in the morning and 1 Puff before bedtime. Authorizing Provider: HI DAVE Roflumilast 500 MCG Oral Tablet (Daliresp) 30 Tab*2 Sig: Take 1 Tablet by mouth in the morning. Authorizing Provider: HI DAVE * Telephone Encounter - Ethel Ventura LPN - 2023 8:27 AM EDTPending Prescriptions: Disp Refills Fluticasone-Salmeterol 250-50 MCG/ACT Inha*60 Each2 Sig: Inhale 1 Puff by mouth in the morning and 1 Puff before bedtime. Roflumilast 500 MCG Oral Tablet (Daliresp) 30 Tab*2 Sig: Take 1 Tablet by mouth in the morning. * Telephone Encounter - Sissy Provider - 2023 8:16 AM EDTPending Prescriptions: Disp Refills Fluticasone-Salmeterol 250-50 MCG/ACT Inha*60 Each2 Sig: Inhale 1 Puff by mouth in the morning and 1 Puff before bedtime. Roflumilast 500 MCG Oral Tablet (Daliresp) 30 Tab*2 Sig: Take 1 Tablet by mouth in the morning. documented in this encounter Plan of Treatment Upcoming Encounters Date Type Department Care Team (Late st Contact Info) Description 08/25/2023 1:00 PM EDT Office Visit Palliative Medicine [facility] [address] [facility] [place] [address] Eliza Germain MD [address] [place] [address] 08/30/2023 10:20 AM EDT Office Visit Podiatry [facility] 132 [facility] [place] [address] Bettye Herrmann DPM [address] [place] [address] 09/02/2023 11:00 AM EDT Laboratory Laboratory [address] [place] [phone] [place], [address] [place] [address] 09/09/2023 11:00 AM EDT Office Visit Hematology/Oncology [facility] [place] [address] [facility] [phone] Lexie Palmer CRNP [address] [place] [address] 09/16/2023 9:00 AM EDT Office Visit Cardiology, [facility] [address] [place] [address] Deisy Aguirre CRNP [address] [place] [address] 10/19/2023 11:00 AM EDT Office Visit Cardiology, [facility] [address] [place] [address] Deisy Aguirre CRNP [address] [place] [address] 10/27/2023 11:00 AM EDT Office Visit Orthopaedics [facility] [address] [place] [address] Zandre Wilkins, DO [address] [place] [address] 01/18/2024 12:30 PM EDT Office Visit Sleep Disorders Ctr [facility] [address] [place] [phone] Hui Bishop CRNP [address] [place] [address] 01/19/2024 11:40 AM EDT Office Visit Family Practice [facility] [address] [place] [address] Johnnie Newby MD [address] [place] [address] 01/26/2024 10:00 AM EDT Imaging Radiology [facility] [address] [place] [address] 02/01/2024 11:30 AM EDT Office Visit Radiation Oncology, [address] [place] [address] Shawna Johnson MD [address] [place] [address] [place] [address] Scheduled Procedures Name Priority Associated Diagnoses Date/Ti me COLONOSCOPY FLEXIBLE PROXIMA L DIAGNOSTIC Recall History of colonic polyps Health Maintenance Due Date Last Done Comments COVID-19 Vaccine ( season) 2023 03/03/2023, 02/25/2023, 02/10/2022, Additional history exists DISCUSS TOBACCO CESSATION (REFER TO SMARTSET #0843) 05/01/2023 05/01/2022, 02/13/2022 Diabetic Eye Exam 07/09/2023 [...] Additional history exists CKD PHOS USE SMARTSET 31424 04/15/2024 1211/2022, 06/05/2022, 06/03/2021, Additional history exists CKD HGB USE SMARTSET 95944 06/03/202406/03, 06/03/2023, 04/18/2023, Additional history exists COLONOSCOPY-EVERY [...] this encounter Medical Devices Implanted Type Area Septic Tank Cleaner Device Identifier Shelf Expiration Date Model / Serial / Lot Lens Intraoc 24.0 - [id number] - [id number] Implanted:Qty: 1 on 06/01/2017 by Nikhil Bolton MD at OR [facility] Left: Eye [employer]CH [employer]OM[employer] 07/17/2021 [id number] / [id number] / [id number] Lens Intraoc 24.0 - [id number] - [id number] Implanted:Qty: 1 on 06/08/2017 by Nikhil Bolton MD at OR [facility] Right: Eye BAUSCH [employer] LOMB 07/17/2021 [id number] / [id number] / [id number] documented as of this encounter Visit Diagnoses Diagnosis COPD, group D, by GOLD 2017 classification (HCC) documented in this encounter Advance Directives Documents on File Type Date Recorded Patient Plumbing Engineer Expl anation Advance Directives and Yu [...] and were consensually agreed upon. Care Teams Roofing Sales Representative Relationship Specialty Start Date End Date Johnnie Newby MD [address] [place] [address] PCP - General Family Medicine 09/13/20 documented as of this encounter
--- OUTSIDE RECORDS SUMMARY | 2023-12-14 20:14 | External Medical Summary | Summary of Care ---
Author Name Unknown Organization [facility] Address [address] [place] [address] Phone [phone] Care Team Providers Care Sock Examiner Name Role Phone Johnnie Newby MD Primary Care Provider [phone] Reason for Visit * Reason Comments Knee Pain bilateral Encounter Details Date Type Department Care Team (Latest Contact Info) Description 07/28/2023 9:30 AM EDT Office Visit Orthopaedics [facility] [address] [place] [id number] Zander Wilkins, DO 132 [facility] [place] [id number] Primary osteoarthritis of both knees* Allergies Active Allergy Reactions Criticality Noted Date Comments Acetaminophen 05/06/2005 headaches documented as of this encounter (statuses as of 08/04/2023) Medications Medication Sig Dispensed Refills Start Date [...] 24 Hour (Imdur)Indications:C oronary artery disease involving [place] coronary artery without angina pectoris TAKE ONE TABLET BY MOUTH EVERY MORNING 90 Tablet 3 09/18/2022 4 Active Apixaban 5 MG Oral Tablet (Eliquis) Take 1 Tablet by mouth in the morning and 1 Tablet before bedtime. 180 Tablet 3 12/08/2022 Active Metoprolol Succinate ER 25 MG Oral Tablet Extended Release 24 Hour (toPROL XL)Indications:SVT (supraventricular tachycardia) ([facility]),NSVT (nonsustained ventricular tachycardia) ([facility]) TAKE ONE TABLET BY MOUTH [...] 30 Tablet 2 05/24/2023 4 Active Tiotropium [place] Monohydrate 18 MCG Inhalation Capsule (Spiriva) Inhale [...] Pain, Severe. 90 Tablet 0 07/19/2023 Active Additional Information Patient not taking.Reported on 07/20/2023 Colchicine 0.6 MG Oral Tablet Take 2 tablets by mouth. One hour later, take 1 tablet by mouth. Take 1 tablet by mouth once daily after until symptoms resolve. 90 Tablet 0 07/21/2023 Active Hospital, Clinic, or Other Facility Administered Medication Ordered Dose Route Frequency Start Date End Date Status albuterol sulfate (PROVENTIL) (2.5 MG/3ML) 0.083% inhalation solution 2.5 mgIndications:COPD, severe (HCC) 2.5 mg NEBULIZER Q4H PRN 07/08/2018 Active lidocaine 1% 1 mL - triamcinolone acetonide 40 mg/mL 1 mL inj 2 mLIndications:Primary osteoarthritis of both knees 2 mL IJ ONCE 07/28/2023 07/28/2023 Ended lidocaine 1% 1 mL - triamcinolone acetonide 40 mg/mL 1 mL inj 2 mLIndications:Primary osteoarthritis of both knees 2 mL IJ ONCE 07/28/2023 07/28/2023 Ended documented as of this encounter (statuses as of 08/04/2023) Active Problems Problem Noted Date Diagnosed Date [...] tis 01/05/2014 Coronary artery disease invo lving [place] coronary artery of [place] heart without angina pectoris 11/27/2013 Tobacco abuse 11/27/2013 HTN, goal below 130/80 03/06/2009 Overview: Modified per HTN protocol #16. documented as of this encounter (statuses as of 08/04/2023) Resolved Problems Problem Noted Date Diagnosed Date [...] as of this encounter (statuses as of 08/04/2023) Immunizations Name Administration Dates Next Due COVID-19 [...] Progress Notes * Zander Wilkins, DO - 07/28/2023 9:30 AM EDT Walter Don [id number] Walter Don is a 77 year old male who presents for follow up of bilateral knee pain to [facility]. Walter Don is here with his/her Last had Durolane injection 07/27/22, last IA steroid 01/18/23 TODAY: We would like injections Past Medical History: Diagnosis Date Anemia of [...] goal of less than 8.0% ([facility]) 10/23/2014 ICD-10 update of inactive term Current [...] in the morning. 30 Tablet 2 Tiotropium Strat[place] Monohydrate 18 MCG Inhalation Capsule (Spiriva) Inhale [...] 8 hours as needed for Pain, Severe. (Patient not taking: Reported on 07/20/2023) 90 Tablet 0 Colchicine 0.6 MG Oral Tablet Take 2 tablets by mouth. One hour later, take 1 tablet by mouth. Take1 tablet by mouth once daily after until symptoms resolve. 90 Tablet 0 Current Facility-Administered Medications Medication [...] Moderate tenderness to palpation medial joint line ROM: R - Flexion - 120 degrees, Extension - 0 degrees L - Flexion - 120 degrees, Extension -0 degrees R- Strength: Extension - 5/5 Flexion - 5/5 L - Strength: Extension - 5/5 Flexion - 5/5 Radiology : repeat not indicated Assessment and Plan: Follow up 3 months Primary osteoarthritis of both knees (Primary) - INJECT MAJOR JX/BURSA W/O US GUIDE - lidocaine 1% 1 mL - triamcinolone acetonide 40 mg/mL 1 mL inj 2 mL - lidocaine 1% 1 mL - triamcinolone acetonide 40 mg/mL 1 mL inj 2 mL Zander Wilkins DO [facility] Orthopaedics [address] [address] Procedure note (knee injection), bilateral : Time [...] Notes * Pat Lyons MED ASSIST - 07/28/2023 9:20 AM EDT Follow up Patient Follow up: Knee Side: Bilateral Date of last visit: Improvement since last office visit: 0 percent. Prior Treatment: Injection Here for Test Results: No Goals for this appointment: inj documented in this encounter Plan of Treatment Upcoming Encounters Date Type Department Care Team (Late st Contact Info) Description 08/25/2023 1:00 PM EDT Office Visit Palliative Medicine [facility] [phone] Eliza [facility] [place] [address] 08/30/2023 10:20 AM EDT Office Visit Podiatry [facility] [address] [facility] [place] [address] Bettye Herrmann DPM [facility] [place] [address] 09/02/2023 11:00 AM EDT Laboratory Laboratory [address] [place] [phone] [address] [place] [address] 09/09/2023 11:00 AM EDT Office Visit Hematology/Oncology [facility] [phone] Lexie Palmer CRNP [facility] [place] [address] 09/16/2023 9:00 AM EDT Office Visit Cardiology, [facility] [address] [facility] [place] [address] Deisy Aguirre CRNP 132 [facility] [place] [address] 10/19/2023 11:00 AM EDT Office Visit Cardiology, [facility] [address] [facility] [place] [address] Deisy Aguirre CRNP [address] [place] [address] 10/27/2023 11:00 AM EDT Office Visit Orthopaedics [facility] [address] [facility] [place] [address] Zander Wilkins DO [address] [place] [address] 01/19/2024 11:40 AM EDT Office Visit Family Practice [facility] [address] [facility] [place] [address] Johnnie Newby MD [address] [place] [address] 01/26/2024 10:00 AM EDT Imaging Radiology [facility] [address] [facility] [place] [address] 02/01/2024 11:30 AM EDT Office Visit Radiation Oncology, [address] [place] [address] Shawna Johnson MD [address] [place] [address] [place] [address] Scheduled Orders Name Type Priority Associated Diagnoses Orde r Schedule INJECT MAJOR JX/BURSA W/O US GUIDE Procedures Routine Primary osteoarthritis of both knees Ordered: 07/28/2023 Scheduled Procedures Name Priority Associated Diagnoses Date/Ti me COLONOSCOPY FLEXIBLE PROXIMA L DIAGNOSTIC Recall History of colonic polyps Health Maintenance Due Date Last Done Comments COVID-19 Vaccine ( season) 2023 03/03/2023, 02/25/2023, 02/10/2022, Additional history exists DISCUSS TOBACCO CESSATION (REFER TO SMARTSET #0631) 05/01/2023 05/01/2022, 02/13/2022 Diabetic Eye Exam 07/09/2023 [...] Additional history exists CKD PHOS USE SMARTSET 16791 04/15/202403/20, 06/05/2022, 06/03/2021, Additional history exists CKD HGB USE SMARTSET 54089 06/03/202406/03, 06/03/2023, 04/18/2023, Additional history exists COLONOSCOPY-EVERY [...] this encounter Medical Devices Implanted Type Area Instrument Designer Device Identifier Shelf Expiration Date Model / Serial / Lot Lens Intraoc 24.0 - [id number] - [id number] Implanted:Qty: 1 on 06/01/2017 by Nikhil Bolton MD at OR [facility] Left: Eye [employer] LOMB 07/17/2021 [id number] / [id number] / [id number] Lens Intraoc 24.0 - [id number] - [id number] Implanted:Qty: 1 on 06/08/2017 by Nikhil Bolton MD at OR [facility] Right: Eye BAUSCH & LOMB 07/17/2021 [id number] / [id number] / [id number] documented as of this encounter Visit Diagnoses Diagnosis Primary osteoarthritis of both knees- Primary Primary localized osteoarthrosis, lower leg documented in this encounter Administered Medications Inactive Administered Medications - up to 3 most recent administrations Medication Order MAR Action Action Date Dose Rate Site lidocaine 1% 1 mL - triamcinolone acetonide 40 mg/mL 1 mL inj 2 mL 2 mL, Injection, ONCE, On Wed07/28/23 at 1000, For 1 dose, Lidocaine 1% 1mL Triamcinolone Acetonide 40 mg/mL 1 mL (Final concentration = 20 mg/mL) REFRIGERATE and SHAKE WELL Given 07/28/2023 9:06 AM EDT 2 mL Knee Right lidocaine 1% 1 mL - triamcinolone acetonide 40 mg/mL 1 mL inj 2 mL 2 mL, Injection, ONCE, On Wed07/28/23 at 1000, For 1 dose, Lidocaine 1% 1mL Triamcinolone Acetonide 40 mg/mL 1 mL (Final concentration = 20 mg/mL) REFRIGERATE and SHAKE WELL Given 07/28/2023 9:06 AM EDT 2 mL Knee Left documented in this encounter Advance Directives Documents on File Type Date Recorded Patient Glove Boarder Expl anation Advance Directives and Yu fine [...] and were consensually agreed upon. Care Teams Sock Examiner Relationship Specialty Start Date End Date Johnnie Newby MD [address] [place] [address] PCP - General Family Medicine 09/13/20 documented as of this encounter
--- OUTSIDE RECORDS SUMMARY | 2023-12-14 20:14 | External Medical Summary | Summary of Care ---
Author Name Unknown Organization [facility] Address [address] [place] [address] Phone [phone] Care Team Providers Care Nurse Care Manager Name Role Phone Johnnie Newby MD Primary Care Provider [phone] Reason for Visit * Reason Onset Date Comments Order Request 07/27/2023 Encounter Details Date Type Department Care Team (Late st Contact Info) Description 07/27/2023 Telephone Family Practice [facility] [place] [address] Johnnie Newby MD 132 [place] [address] Order Request Allergies Active Allergy Reactions Criticality Noted Date Comments Acetaminophen 05/06/2005 headaches documented as of this encounter (statuses as of 08/05/2023) Medications Medication Sig Dispensed Refills Start Date [...] 24 Hour (Imdur)Indications: Coronary artery disease involving [place] coronary artery without angina pectoris TAKE [...] 160 mL 3 05/24/2023 10/31/19 24 Active Wixela Inhub 250-50 MCG/ACT Inhalation Aerosol Powder Breath Activated (Fluticasone-Salmet gume) Inhale 1 Puff by mouth in the morning and 1 Puff before bedtime. 60 Each 2 05/24/2023 08/24/19 24 Active Roflumilast 500 MCG Oral Tablet (Daliresp)Indicatio ns:COPD, group D, by GOLD 2017 classification ([facility]) Take 1 Tablet by mouth in the morning. 30 Tablet 2 05/24/2023 09/08/19 24 Active Tiotropium [place] Monohydrate 18 MCG Inhalation Capsule (Spiriva) Inhale [...] Tablet 1 12/09/2022 08/04/19 24 Discontinu ed(Refill) Hospital, Clinic, or Other Facility Administered Medication Ordered Dose Route Frequency Start Date End Date Status albuterol sulfate (PROVENTIL) (2.5 MG/3ML) 0.083% inhalation solution 2.5 mgIndications:COPD, severe (HCC) 2.5 mg NEBULIZER Q4H PRN 07/08/2018 Active documented as of this encounter (statuses as of 08/05/2023) Active Problems Problem Noted Date Diagnosed Date [...] tis 01/05/2014 Coronary artery disease invo lving [place] coronary artery of [place] heart without angina pectoris 11/27/2013 Tobacco abuse 11/27/2013 HTN, goal below 130/80 03/06/2009 Overview: Modified per HTN protocol #16. documented as of this encounter (statuses as of 08/05/2023) Resolved Problems Problem Noted Date Diagnosed Date [...] as of this encounter (statuses as of 08/05/2023) Immunizations Name Administration Dates Next Due COVID-19 mRNA, LNP-s, No Pre serve, 2-Dose Series (J[employer]as) 02/25/2023,02/10/2022,07/13/2020,06/17 Pneumococcal Conjugate Vacc, 13 Valent (Prevnar) [...] encounter Miscellaneous Notes * Telephone Encounter - Janel Bettencourt OSA - 08/05/2023 6:57 PM EDT Spoke with pt. He accepted an apt with CHRISTOPHE King on 01/18/24 at 12:30 PM. Added to wait list, should a sooner apt become available. * Telephone Encounter - Hui Bishop CRNP - 08/03/2023 10:16 AM EDT Orders placed but last seen 01/2022. Needs return visit for Medicare. * Telephone Encounter - Sue Garcia OSA - 07/27/2023 12:56 PM EDT Nat from [employer] calling for updated RX for cpap supplies to be sent to portal for [employer] [facility] Chart notes documented in this encounter Plan of Treatment Upcoming Encounters Date Type Department Care Team (Late st Contact Info) Description 08/25/2023 1:00 PM EDT Office Visit Palliative Medicine [facility] [address] [place] [place] [address] Eliza Germain MD [address] [place] [address] [place] [address] 08/30/2023 10:20 AM EDT Office Visit Podiatry [facility] 132 [facility] [place] [address] Bettye Herrmann, SAMM [address] [place] [address] 09/02/2023 11:00 AM EDT Laboratory Laboratory [address] [place] [phone] [place] [address] 09/09/2023 11:00 AM EDT Office Visit Hematology/Oncology [facility] [address] Lexie Palmer CRNP [address] [place] [address] 09/16/2023 9:00 AM EDT Office Visit Cardiology, [facility] [address] [place] [address] Deisy Aguirre CRNP [address] [place] [address] 10/19/2023 11:00 AM EDT Office Visit Cardiology, [facility] [address] [place] [address] Deisy Aguirre CRNP [address] [place] [address] 10/27/2023 11:00 AM EDT Office Visit Orthopaedics [facility] [address] [place] [address] Zander Wilkins, DO [address] [place] [address] 01/18/2024 12:30 PM EDT Office Visit Sleep Disorders Ctr [facility] [address] [place] [phone] Hui Bishop CRNP [address] [place] [address] 01/19/2024 11:40 AM EDT Office Visit Family Practice [facility] [address] [place] [address] Johnnie Newby MD [address] [place] [address] 01/26/2024 10:00 AM EDT Imaging Radiology [facility] [address] [place] [address] 02/01/2024 11:30 AM EDT Office Visit Radiation Oncology, [address] [place] [address] Shawna Johnson MD [address] [place] [address] [place] [address] Scheduled Procedures Name Priority Associated Diagnoses Date/Ti me COLONOSCOPY FLEXIBLE PROXIMA L DIAGNOSTIC Recall History of colonic polyps Health Maintenance Due Date Last Done Comments COVID-19 Vaccine ( season) 2023 03/03/2023, 02/25/2023, 02/10/2022, Additional history exists DISCUSS TOBACCO CESSATION (REFER TO SMARTSET #7334) 05/01/2023 05/01/2022, 02/13/2022 Diabetic Eye Exam 07/09/2023 [...] Additional history exists CKD PHOS USE SMARTSET 53899 04/15/202403/20, 06/05/2022, 06/03/2021, Additional history exists CKD HGB USE SMARTSET 35136 06/03/202406/03, 06/03/2023, 04/18/2023, Additional history exists COLONOSCOPY-EVERY [...] encounter Medical Devices Implanted Type Area Office Automation Clerk Device Identifier Shelf Expiration Date Model / Serial / Lot Lens Intraoc 24.0 - [id number] - [id number] Implanted:Qty: 1 on 06/01/2017 by Nikhil Bolton MD at OR [facility] Left: Eye BAUSCH [employer] LOMB 07/17/2021 [id number] / [id number] / [id number] Lens Intraoc 24.0 - [id number] - [id number] Implanted:Qty: 1 on 06/08/2017 by Nikhil Bolton MD at OR [facility] Right: Eye BAUSCH & LOMB 07/17/2021 [id number] / [id number] / [id number] documented as of this encounter Advance Directives Documents on File Type Date Recorded Patient Development Advisor Expl anation Advance Directives and Yu Watkins [...] and were consensually agreed upon. Care Teams Nurse Care Manager Relationship Specialty Start Date End Date Johnnie Newby MD [address] [place] [address] PCP - General Family Medicine 09/13/20 documented as of this encounter
--- OUTSIDE RECORDS SUMMARY | 2023-12-14 20:14 | External Medical Summary | Summary of Care ---
Author Name Unknown Organization [facility] Address [address] [place] [address] Phone [phone] Care Team Providers Care Bias Binding Folder Name Role Phone John Newby MD Primary Care Provider [phone] Reason for Visit * Reason Comments Medication Refill Encounter Details Date Type Department Care Team (Late st Contact Info) Description 08/04/2023 Refill Family Practice [facility] [address] [place] [address] John Newby MD 132 [place] [address] Allergies Active Allergy Reactions Criticality [...] ns:COPD, group D, by GOLD 2017 classification ([facility]) Take 1 Tablet by mouth in the morning. 30 Tablet 2 05/24/2023 09/08/19 24 Active Tiotropium [place] Monohydrate 18 MCG Inhalation Capsule (Spiriva) Inhale [...] 90 Tablet 1 08/05/2023 08/05/19 25 Active Atorvastatin Calcium 80 MG Oral Tablet [...] mRNA, LNP-s, No Pre serve, 2-Dose Series ([employer]) 02/25/2023,02/10/2022,07/13/2020,06/17 Pneumococcal Conjugate Vacc, 13 Valent (Prevnar) [...] encounter Miscellaneous Notes * Telephone Encounter - Hilario Poon [facility] - 08/05/2023 7:14 AM EDTSigned Prescriptions: Disp Refills Atorvastatin Calcium 80 MG Oral Tablet (Li*90 Tab*1 Sig: TAKE ONE TABLET BY MOUTH AT BEDTIMEAuthorizing Provider: JOHN NEWBY User: HILARIO POON documented in this encounter Plan of Treatment Upcoming Encounters Date Type Department Care Team (Late st Contact Info) Description 08/25/2023 1:00 PM EDT Office Visit Palliative Medicine [facility] [address] [phone] El[facility] MD [facility] [place] [address] 08/30/2023 10:20 AM EDT Office Visit Podiatry [facility] [address] [facility] [place] [address] Bettye Herrmann DPM [address] [place] [address] 09/02/2023 11:00 AM EDT Laboratory Laboratory [address] [place] [phone] [address] [place] [address] 09/09/2023 11:00 AM EDT Office Visit Hematology/Oncology [facility] [place] [phone] Lexie Palmer CRNP [address] [place] [address] [place] [address] 09/16/2023 9:00 AM EDT Office Visit Cardiology, [facility] [address] [place] [address] Deisy Aguirre CRNP [address] [place] [address] 10/19/2023 11:00 AM EDT Office Visit Cardiology, [facility] [address] [place] [address] Deisy Aguirre CRNP [address] [place] [address] 10/27/2023 11:00 AM EDT Office Visit Orthopaedics [facility] [address] [place] [address] Zander Wilkins, [address] [place] [address] 01/19/2024 11:40 AM EDT Office Visit Family Practice [facility] [address] [place] [address] John Newby MD [address] [place] [address] 01/26/2024 10:00 AM EDT Imaging Radiology [facility] 1st Floor, [address] [place] [address] 02/01/2024 11:30 AM EDT Office Visit Radiation Oncology, [address] [place] [address] Shawna Johnson MD [address] [place] [address] [place] [address] Scheduled Procedures Name Priority Associated Diagnoses Date/Ti [...] Additional history exists CKD PHOS USE SMARTSET 80909 04/15/202403/20, 06/05/2022, 06/03/2021, Additional history exists CKD HGB USE SMARTSET 38035 06/03/202406/03, 06/03/2023, 04/18/2023, Additional history exists COLONOSCOPY-EVERY [...] this encounter Medical Devices Implanted Type Area Returns Processor Device Identifier Shelf Expiration Date Model / Serial / Lot Lens Intraoc 24.0 - [id number] - [id number] Implanted:Qty: 1 on 06/01/2017 by Nikhil Bolton MD at OR [facility] Left: Eye BAUSCH & LOMB 07/17/2021 [id number] / [id number] / [id number] Lens Intraoc 24.0 - [id number] - [id number] Implanted:Qty: 1 on 06/08/2017 by Nikhil Bolton MD at OR [facility] Right: Eye BAUSCH & LOMB 07/17/2021 [id number] / [id number] / [id number] documented as of this encounter Advance Directives Documents on File Type Date Recorded Patient Production Trainer Expl anation Advance Directives and Yu fine [...] and were consensually agreed upon. Care Teams Bias Binding Folder Relationship Specialty Start Date End Date John Newby MD [address] [place] [address] PCP - General Family Medicine 09/13/20 documented as of this encounter
--- OUTSIDE RECORDS SUMMARY | 2023-12-14 20:14 | External Medical Summary | Summary of Care ---
Author Name Unknown Organization [facility] Address [address] [place] [address] Phone [phone] Care Team Providers Care Job Placement Specialist Name Role Phone Johnnie Newby MD Primary Care Provider +1 [phone] Encounter Details Date Type Department Care Team (Late st Contact Info) Description 08/03/2023 Orders Only Sleep Disorders Ctr [facility] 132 [facility] [place] [address] Hui Bishop CRNP 132 [place] [address] YISSEL treated with BiPAP* Allergies Active Allergy Reactions Criticality Noted Date Comments Acetaminophen 05/06/2005 headaches documented as of this encounter (statuses as of 08/03/2023) Medications Medication Sig Dispensed Refills Start Date [...] 30 Tablet 2 05/24/2023 4 Active Tiotropium [place] Monohydrate 18 MCG Inhalation Capsule (Spiriva) Inhale [...] as of this encounter (statuses as of 08/03/2023) Active Problems Problem Noted Date Diagnosed Date [...] as of this encounter (statuses as of 08/03/2023) Resolved Problems Problem Noted Date Diagnosed Date [...] as of this encounter (statuses as of 08/03/2023) Immunizations Name Administration Dates Next Due COVID-19 mRNA, LNP-s, No Pre serve, 2-Dose Series (Purplle) 02/25/2023,02/10/2022,07/13/2020,06/17 Pneumococcal Conjugate Vacc, 13 Valent (Prevnar) [...] PM EDT Office Visit Palliative Medicine [facility] [phone] Eliza Germain MD [address] [facility] [place] [address] 08/30/2023 10:20 AM EDT Office Visit Podiatry [facility] 132 [facility] [place] [address] Bettye Herrmann DPM [facility] [place] [address] 09/02/2023 11:00 AM EDT Laboratory Laboratory [address] [place] [phone] [place] [address] 09/09/2023 11:00 AM EDT Office Visit Hematology/Oncology [facility] 200 [facility] [phone] Lexie Palmer CRNP 400 [facility] [place] [address] 09/16/2023 9:00 AM EDT Office Visit Cardiology, [facility] 132 [facility] [place] [address] Deisy Aguirre CRNP [address] [place] [address] 10/19/2023 11:00 AM EDT Office Visit Cardiology, [facility] [address] [place] [address] Deisy Aguirre CRNP [address] [place] [address] 10/27/2023 11:00 AM EDT Office Visit Orthopaedics [facility] [address] [place] [address] Zander Wilkins DO [address] [place] [address] 01/19/2024 11:40 AM EDT Office Visit Family Practice [facility] [address] [place] [address] Johnnie Newby MD [address] [place] [address] 01/26/2024 10:00 AM EDT Imaging Radiology [facility]st [facility] [address] [place] [address] 02/01/2024 11:30 AM EDT Office Visit Radiation Oncology, [address] [place] [address] Shawna Johnson MD [facility] [place] [address] Scheduled Procedures Name Priority Associated Diagnoses Date/Ti me COLONOSCOPY FLEXIBLE PROXIMA L DIAGNOSTIC Recall History of colonic polyps Health Maintenance Due Date Last Done Comments COVID-19 Vaccine (2022- season) 2023 03/03/2023, 02/25/2023, 02/10/2022, Additional history exists DISCUSS TOBACCO CESSATION (REFER TO SMARTSET #3771) 05/01/2023 05/01/2022, 02/13/2022 Diabetic Eye Exam 07/09/2023 [...] Additional history exists CKD PHOS USE SMARTSET 22841 04/15/202403/20, 06/05/2022, 06/03/2021, Additional history exists CKD HGB USE SMARTSET 63855 06/03/202406/03, 06/03/2023, 04/18/2023, Additional history exists COLONOSCOPY-EVERY [...] this encounter Medical Devices Implanted Type Area News Gathering Technician Device Identifier Shelf Expiration Date Model / Serial / Lot Lens Intraoc 24.0 - [id number] - [id number] Implanted:Qty: 1 on 06/01/2017 by Nikhil Bolton MD at OR [facility] Left: Eye BAUSCH & LOMB 07/17/2021 [id number] / [id number] / [id number] Lens Intraoc 24.0 - [id number] - [id number] Implanted:Qty: 1 on 06/08/2017 by Nikhil Bolton MD at OR [facility] Right: Eye BAUSCH & LOMB 07/17/2021 [id number] / [id number] / [id number] documented as of this encounter Visit Diagnoses Diagnosis YISSEL treated with BiPAP- Primary documented in this encounter Advance Directives Documents on File Type Date Recorded Patient Power Reactor Operator Expl 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 Care Teams Job Placement Specialist Relationship Specialty Start Date End Date Johnnie Newby MD 132 [place] [address] PCP - General Family Medicine 09/13/20 documented as of this encounter
--- OUTSIDE RECORDS SUMMARY | 2023-12-14 20:14 | External Medical Summary | Summary of Care ---
Author Name Unknown Organization [facility] Address [address] [place] [address] Phone [phone] Care Team Providers Care Landscaping Specialist Name Role Phone Johnnie Newby MD Primary Care Provider [phone] [phone] Reason for Visit * Reason Comments Knee Pain bilateral Encounter Details Date Type Department Care Team (Latest Contact Info) Description 07/28/2023 9:30 AM EDT Office Visit Orthopaedics [facility] 132 [place] [address] Zander Wilkins, DO 132 [place] [address] Primary osteoarthritis of both knees* Allergies Active [...] 24 Hour (Imdur)Indications:C oronary artery disease involving [place] coronary artery without angina pectoris TAKE [...] GOLD 2017 classification ([facility]) Take 1 Tablet by mouth in the morning. 30 Tablet 2 05/24/2023 4 Active Tiotropium [place] Monohydrate 18 MCG Inhalation Capsule (Spiriva) Inhale [...] tis 01/05/2014 Coronary artery disease invo lving [place] coronary artery of [place] heart without angina pectoris 11/27/2013 Tobacco [...] - 07/28/2023 9:30 AM EDT Walter Don [id number] Walter Don is a 77 year old male who presents for follow up of bilateral knee pain to [facility]. Walter Don is here [...] goal of less than 8.0% ([facility]) 10/23/2014 ICD-10 update of inactive term Current [...] in the morning. 30 Tablet 2 Tiotropium [place] Monohydrate 18 MCG Inhalation Capsule (Spiriva) Inhale [...] Wilkins DO Primary Care Sports Medicine Orthopaedics [address] [address] Procedure note (knee injection), bilateral : Time [...] 1:00 PM EDT Office Visit Palliative Medicine [facility] 200 [facility] [phone] Eliza Germain MD 400 [facility] [place] [address] 08/30/2023 10:20 AM EDT Office Visit Podiatry [facility] 132 [facility] [place] [address] Bettye Herrmann DPM 400 [facility] [place] [address] 09/02/2023 11:00 AM EDT Laboratory Laboratory [address] [place] [phone] [address] [place] [address] 09/09/2023 11:00 AM EDT Office Visit Hematology/Oncology [facility] 200 [facility] [phone] Lexie Palmer CRNP 400 [facility] [place] [address] 09/16/2023 9:00 AM EDT Office Visit Cardiology, [facility] 132 [facility] [place] [address] Deisy Aguirre CRNP 132 [facility] [place] [address] 10/19/2023 11:00 AM EDT Office Visit Cardiology, [facility] [address] [facility] [place] [address] Deisy Aguirre CRNP [address] [place] [address] 10/27/2023 11:00 AM EDT Office Visit Orthopaedics [facility] 132 [facility] [place] [address] Zander Wilkins DO [address] [facility] [place] [address] 01/19/2024 11:40 AM EDT Office Visit Family Practice [facility] 132 [facility] [place] [address] Johnnie Newby MD [address] [facility] [place] [address] 01/26/2024 10:00 AM EDT Imaging Radiology [facility] 1st [facility] 132 [facility] [place] [address] 02/01/2024 11:30 AM EDT Office Visit Radiation Oncology, [address] [place] [address] Shawna Johnson MD [address] [place] [address] [place] [address] Scheduled Orders Name Type Priority Associated Diagnoses [...] exists DISCUSS TOBACCO CESSATION (REFER TO SMARTSET #7449) 05/01/2023 05/01/2022, 02/13/2022 Diabetic Eye Exam 07/09/2023 [...] Additional history exists CKD PHOS USE SMARTSET 08206 04/15/202403/20, 06/05/2022, 06/03/2021, Additional history exists CKD HGB USE SMARTSET 89956 06/03/202406/03, 06/03/2023, 04/18/2023, Additional history exists COLONOSCOPY-EVERY [...] this encounter Medical Devices Implanted Type Area Players Assistant Device Identifier Shelf Expiration Date Model / Serial / Lot Lens Intraoc 24.0 - [id number] - [id number] Implanted:Qty: 1 on 06/01/2017 by Nikhil Bolton MD at OR [facility] Left: Eye BAUSCH & LOMB 07/17/2021 [id number] / [id number] / [id number] Lens Intraoc 24.0 - [id number] - [id number] Implanted:Qty: 1 on 06/08/2017 by Nikhil Bolton MD at OR [facility] Right: Eye BAUSCH & LOMB 07/17/2021 [id number] / [id number] / [id number] documented as of this encounter Visit Diagnoses [...] Documents on File Type Date Recorded 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 Care Teams Landscaping Specialist Relationship Specialty Start Date End Date Johnnie Newby MD 132 [place] [address] PCP - General Family Medicine 09/13/20 documented as of this encounter
--- OUTSIDE RECORDS SUMMARY | 2023-12-14 20:14 | External Medical Summary | Summary of Care ---
Author Name Unknown Organization [facility] Address [address] [place] [address] Phone [phone] Care Team Providers Care Social Worker Palliative Care Name Role Phone Johnnie Newby MD Primary Care Provider [phone] Encounter Details Date Type Department Care Team (Late st Contact Info) Description 08/05/2023 Telephone Pulmonary Medicine, [facility] 132 [place] [address] Hui Bishop CRNP 132 [place] [address] Allergies Active Allergy Reactions Criticality Noted Date [...] 30 Tablet 2 05/24/2023 4 Active Tiotropium [place] Monohydrate 18 MCG Inhalation Capsule (Spiriva) Inhale [...] MOUTH AT BEDTIME 90 Tablet 1 08/05/2023 Active Hospital, Clinic, or Other Facility Administered [...] mRNA, LNP-s, No Pre serve, 2-Dose Series (Telsima) 02/25/2023,02/10/2022,07/13/2020,06/17 Pneumococcal Conjugate Vacc, 13 Valent (Prevnar) [...] encounter Miscellaneous Notes * Telephone Encounter - Alison Elliott OSA - 08/05/2023 8:43 AM EDT CPAP resupply order entered in [employer] documented in this encounter Plan of Treatment Upcoming Encounters Date Type Department Care Team (Late st Contact Info) Description 08/25/2023 1:00 PM EDT Office Visit Palliative Medicine [facility] 200 [facility] [phone] Eliza Germain MD [address] [place] [address] 08/30/2023 10:20 AM EDT Office Visit Podiatry [facility] [place] 132 [facility] [place] [address] Bettye Herrmann DPM [address] [place] [address] 09/02/2023 11:00 AM EDT Laboratory Laboratory [address] [place] [phone] [address] [place] [address] 09/09/2023 11:00 AM EDT Office Visit Hematology/Oncology [facility] 200 [place] [phone] Lexie Palmer CRNP [address] [place] [address] 09/16/2023 9:00 AM EDT Office Visit Cardiology, [facility] [address] [place] [address] Deisy Aguirre CRNP [address] [place] [address] 10/19/2023 11:00 AM EDT Office Visit Cardiology, [facility] [address] [place] [address] Deisy Aguirre CRNP [address] [place] [address] 10/27/2023 11:00 AM EDT Office Visit Orthopaedics [facility] [address] [place] [address] Zander Wilkins DO [address] [place] [address] 01/19/2024 11:40 AM EDT Office Visit Family Practice [facility] [place] [address] Johnnie Newby MD [address] [place] [address] 01/26/2024 10:00 AM EDT Imaging Radiology [facility] 1st Floor, [place] 132 [facility] [place] [address] 02/01/2024 11:30 AM EDT Office Visit Radiation Oncology, [address] [place] [address] Shawna Johnson MD [address] [place] [address] [place] [address] Scheduled Procedures Name Priority Associated Diagnoses Date/Ti me COLONOSCOPY FLEXIBLE PROXIMA L DIAGNOSTIC Recall History of colonic polyps Health Maintenance Due Date Last Done Comments COVID-19 Vaccine ( season) 2023 03/03/2023, 02/25/2023, 02/10/2022, Additional history exists DISCUSS TOBACCO CESSATION (REFER TO SMARTSET #4169) 05/01/2023 05/01/2022, 02/13/2022 Diabetic Eye Exam 07/09/2023 [...] Additional history exists CKD PHOS USE SMARTSET 87168 04/15/202403/20, 06/05/2022, 06/03/2021, Additional history exists CKD HGB USE SMARTSET 05290 06/03/202406/03, 06/03/2023, 04/18/2023, Additional history exists COLONOSCOPY-EVERY [...] this encounter Medical Devices Implanted Type Area Crust Sorter Device Identifier Shelf Expiration Date Model / Serial / Lot Lens Intraoc 24.0 - [id number] - [id number] Implanted:Qty: 1 on 06/01/2017 by Nikhil Bolton MD at OR [facility] Left: Eye BAUSCH & LOMB 07/17/2021 [id number] / [id number] / [id number] Lens Intraoc 24.0 - [id number] - [id number] Implanted:Qty: 1 on 06/08/2017 by Nikhil Bolton MD at OR [facility] Right: Eye BAUSCH & LOMB 07/17/2021 [id number] / [id number] / [id number] documented as of this encounter Advance Directives Documents on File Type Date Recorded 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 Care Teams Social Worker Palliative Care Relationship Specialty Start Date End Date Johnnie Newby MD [address] [place] [address] PCP - General Family Medicine 09/13/20 documented as of this encounter
--- OUTSIDE RECORDS SUMMARY | 2023-12-14 20:15 | External Medical Summary | Summary of Care ---
Author Name Unknown Organization [facility] Address [address] [place] [address] Phone [phone] Care Team Providers Care Bobbin Marker Name Role Phone Johnnie Newby MD Primary Care Provider +1 [phone] Reason for Visit * Reason Comments Knee Pain bilateral Encounter Details Date Type Department Care Team (Latest Contact Info) Description 07/28/2023 9:30 AM EDT Office Visit Orthopaedics [facility] 132 [facility] [place] [address] Zander Wilkins, DO 132 [place] [address] Primary osteoarthritis of both knees* Allergies Active Allergy Reactions Criticality Noted Date Comments Acetaminophen 05/06/2005 headaches documented as of this encounter (statuses as of 07/28/2023) Medications Medication Sig Dispensed Refills Start Date [...] 24 Hour (Imdur)Indications:C oronary artery disease involving [place] coronary artery without angina pectoris TAKE ONE [...] 2017 classification ([facility]) Take 1 Tablet by mouth in the morning. 30 Tablet 2 05/24/2023 4 Active Tiotropium [place] Monohydrate 18 MCG Inhalation Capsule (Spiriva) Inhale [...] knees 2 mL IJ ONCE 07/28/2023 07/28/2023 Active lidocaine 1% 1 mL - triamcinolone acetonide 40 mg/mL 1 mL inj 2 mLIndications:Primary osteoarthritis of both knees 2 mL IJ ONCE 07/28/2023 07/28/2023 Active documented as of this encounter (statuses as of 07/28/2023) Active Problems Problem Noted Date Diagnosed Date [...] tis 01/05/2014 Coronary artery disease invo lving [place] coronary artery of [place] heart without angina pectoris 11/27/2013 Tobacco abuse 11/27/2013 HTN, goal below 130/80 03/06/2009 Overview: Modified per HTN protocol #16. documented as of this encounter (statuses as of 07/28/2023) Resolved Problems Problem Noted Date Diagnosed Date [...] as of this encounter (statuses as of 07/28/2023) Immunizations Name Administration Dates Next Due COVID-19 [...] - 07/28/2023 9:30 AM EDT Walter Don [id number] Walter Don is a 77 year old male who presents for follow up of bilateral knee pain to [facility]. Walter Don is here [...] goal of less than 8.0% ([facility]) 10/23/2014 ICD-10 update of inactive term Current [...] in the morning. 30 Tablet 2 Tiotropium [place] Monohydrate 18 MCG Inhalation Capsule (Spiriva) Inhale [...] Wilkins DO Primary Care Sports Medicine Orthopaedics [address] [address] Procedure note (knee injection), bilateral : Time [...] 1:00 PM EDT Office Visit Palliative [facility] [phone] Eliza Germain MD [facility] [place] [address] 08/30/2023 10:20 AM EDT Office Visit Podiatry [facility] 132 [facility] [place] [address] Bettye Herrmann DPM [facility] [place] [address] 09/02/2023 11:00 AM EDT Laboratory Laboratory [address] [place] [phone] [address] [place] [address] 09/09/2023 11:00 AM EDT Office Visit Hematology/Oncology [facility] 200 [facility] [phone] Lexie Palmer CRNP 400 [facility] [place] [address] 09/16/2023 9:00 AM EDT Office Visit Cardiology, [facility] 132 [facility] [place] [address] Deisy Aguirre CRNP 132 [facility] [place] [address] 10/19/2023 11:00 AM EDT Office Visit Cardiology, [facility] [address] [facility] [place] [address] Deisy Aguirre CRNP [address] [place] [address] 10/27/2023 11:00 AM EDT Office Visit Orthopaedics [facility] 132 [facility] [place] [address] Zander Wilkins DO [address] [facility] [place] [address] 01/19/2024 11:40 AM EDT Office Visit Family Practice [facility] 132 [facility] [place] [address] Johnnie Newby MD [address] [facility] [place] [address] 01/26/2024 10:00 AM EDT Imaging Radiology [facility]st [facility] 132 [facility] [place] [address] 02/01/2024 11:30 AM EDT Office Visit Radiation Oncology, [address] [place] [address] Shawna Johnson MD [address] [place] [address] [place] [address] Scheduled Orders Name Type Priority Associated Diagnoses [...] exists DISCUSS TOBACCO CESSATION (REFER TO SMARTSET #5057) 05/01/2023 05/01/2022, 02/13/2022 Diabetic Eye Exam 07/09/2023 [...] Additional history exists CKD PHOS USE SMARTSET 64574 04/15/202403/20, 06/05/2022, 06/03/2021, Additional history exists CKD HGB USE SMARTSET 31916 06/03/202406/03, 06/03/2023, 04/18/2023, Additional history exists COLONOSCOPY-EVERY [...] this encounter Medical Devices Implanted Type Area Core Placer Device Identifier Shelf Expiration Date Model / Serial / Lot Lens Intraoc 24.0 - [id number] - [id number] Implanted:Qty: 1 on 06/01/2017 by Nikhil Bolton MD at OR [facility] Left: Eye BAUSCH & LOMB 07/17/2021 [id number] / [id number] / [id number] Lens Intraoc 24.0 - [id number] - [id number] Implanted:Qty: 1 on 06/08/2017 by Nikhil Bolton MD at OR [facility] Right: Eye BAUSCH & LOMB 07/17/2021 [id number] / [id number] / [id number] documented as of this encounter Visit Diagnoses Diagnosis Primary osteoarthritis of both knees- Primary Primary localized osteoarthrosis, lower leg documented in this encounter Advance Directives Documents on File Type Date Recorded Patient Care Specialist Expl 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 Care Teams Bobbin Marker Relationship Specialty Start Date End Date Johnnie Newby MD 132 [place] [address] PCP - General Family Medicine 09/13/20 documented as of this encounter
--- OUTSIDE RECORDS SUMMARY | 2023-12-14 20:15 | External Medical Summary | Summary of Care ---
Author Name Unknown Organization [facility] Address [address] [place] [address] Phone [phone] Care Team Providers Care Automobile Bumper Straightener Name Role Phone Johnnie Newby MD Primary Care Provider [phone] Reason for Visit * Reason Comments Hospital Follow-Up Encounter Details Date Type Department Care Team (Late st Contact Info) Description 07/20/2023 11:30 AM EDT Office Visit Cardiology, [facility] [place] [address] Warren Montoya, 132 [place] [address] Coronary artery disease involving klamath coronary artery of klamath heart without angina pectoris*; PVD (peripheral vascular disease) with claudication (HCC); Moderate aortic stenosis Allergies Active Allergy Reactions Criticality Noted Date Comments Acetaminophen 05/06/2005 headaches documented as of this encounter (statuses as of 07/20/2023) Medications Medication Sig Dispensed Refills Start Date [...] 24 Hour (Imdur)Indications:C oronary artery disease involving klamath coronary artery without angina pectoris TAKE ONE [...] 30 Tablet 2 05/24/2023 4 Active Tiotropium [place] Monohydrate 18 MCG Inhalation Capsule (Spiriva) Inhale [...] Additional Information Patient not taking.Reported on 07/20/2023 Hospital, Clinic, or Other Facility Administered Medication Ordered Dose Route Frequency Start Date End Date Status albuterol sulfate (PROVENTIL) (2.5 MG/3ML) 0.083% inhalation solution 2.5 mgIndications:COPD, severe (HCC) 2.5 mg NEBULIZER Q4H PRN 07/08/2018 Active documented as of this encounter (statuses as of 07/20/2023) Active Problems Problem Noted Date Diagnosed Date [...] tis 01/05/2014 Coronary artery disease invo lving klamath coronary artery of klamath heart without angina pectoris 11/27/2013 Tobacco abuse 11/27/2013 HTN, goal below 130/80 03/06/2009 Overview: Modified per HTN protocol #16. documented as of this encounter (statuses as of 07/20/2023) Resolved Problems Problem Noted Date Diagnosed Date [...] as of this encounter (statuses as of 07/20/2023) Immunizations Name Administration Dates Next Due COVID-19 mRNA, LNP-s, No Pre serve, 2-Dose Series (ON-S Segurança Online) 02/25/2023,02/10/2022,07/13/2020,06/17 Pneumococcal Conjugate Vacc, 13 Valent (Prevnar) [...] Sign Reading Time Taken Comments Blood Pressure 106/56 07/20/2023 11:30 AM EDT Pulse 56 07/20/2023 11:30 AM EDT Temperature - - Respiratory Rate - - Oxygen Saturation - - Inhaled Oxygen Concentration - - Weight 89.8 kg (198 lb) 07/20/2023 11:30 AM EDT Height - - Body Mass Index 29.67 07/19/2023 11:32 AM EDT documented in this [...] Progress Notes * Warren Montoya, DO - 07/20/2023 11:47 AM EDT Cardiology Outpatient Follow-up Walter Don is a 77 year old male who is seen for follow-up of coronary artery disease. HPI: This is a 77-year-old with complex cardiac disease who is a dedicated smoker and has adenocarcinomaof the lung. Recently he came into the building and developed severe back pain along with shortnessof breath resulting in a rapid response. He was then sent to the hospital where he was treated and eventually discharged. I saw him in follow-up today. He has no new cardiac complaints. He continues to smoke. He is in a lot of pain due to arthritis of his lower extremities and shoulders. We had some discussion regarding goals of treatment. I think his PCP has introduce the idea of Palliative Carewhich I agree with. Past Medical History: Diagnosis Date Anemia of [...] less than 8.0% ([facility]) 10/23/2014 ICD-10 update of inactive term Patient Active Problem List Diagnosis Code HTN, goal below 130/80 I10 Coronary artery disease involving klamath coronary artery of klamath heart without angina pectoris I25.10 Tobacco abuse Z72.0 PTSD (post-traumatic stress disorder) F43.10 Gastroesophageal reflux disease without esophagitis K21.9 Type 2 diabetes mellitus with hemoglobin A1c goal of less than 8.0% ([facility]) E11.9 YISSEL treated with BiPAP G47.33 [...] of lung ([facility]) C34.11 Depression with anxiety F41.8 History [...] performed by Warren Patel MD at [facility]OS[facility] COLONOSCOPY THRU STOMA, W/BIOPSY 05/28/2010 andenomatous tissue--repeat in 3 months COLONOSCOPY THRU STOMA, W/BIOPSY 09/18/2010 adenomatous-repeat colonoscopy in 3-6 months COLONOSCOPY THRU STOMA, W/BIOPSY 04/09/2011 polyps x3 , path shows adenomatous tissue repeat in 1 years COLONOSCOPY, DIAGNOSTIC (RECTUM) 05/20/2016 adenomatous polyps, poor prep, diverticulosis, repeat 3 yrs/[facility] COLONOSCOPY, DIAGNOSTIC (RECTUM) 06/06/2019 hemorrhoids/diverticulosis sigmoid and descending colon/small AVM/biopsies show adenomatous polyps/recall 6-9 months/COLONOSCOPY FLEXIBLE PROXIMAL DIAGNOSTIC performed by Clemencia Marinelli MD at[facility] COLONOSCOPY, DIAGNOSTIC (RECTUM) 03/05/2022 benign adenomatous polyp, repeat 1 yr / COLONOSCOPY FLEXIBLE PROXIMAL DIAGNOSTIC performed by Clemencia Marinelli MD at ENDOSCOPY [facility] COLONOSCOPY, DIAGNOSTIC (RECTUM) 01/14/2023 hemorrhoids/diverticulosis/biopsies show hyperplastic polyps/recall 2 years/COLONOSCOPY FLEXIBLE PROXIMAL DIAGNOSTIC performed by Destiny Mojica DO at ENDOSCOPY [facility] CORONARY ANGIOGRAPHY W/LEFT HEART CATH Right 04/16/2023 CORONARY ANGIOGRAPHY W/LEFT HEART CATH performed by Maria G Lance MD at [facility]ARDIAC LABS [facility] DESTROY LUMBAR SACRAL NERVE IMAGING ADD'L 01/27/2023 DESTROY LUMBAR SACRAL NERVE IMAGING ADD'L performed by Pb Alexander DO at OR [facility] DESTROY LUMBAR SACRAL NERVE IMAGING SINGLE 01/27/2023 DESTROY LUMBAR SACRAL NERVE IMAGING SINGLE performed by Pb Alexander DO at OR [facility] EGD, FLEXIBLE, DIAGNOSTIC 01/14/2023 gsatric polyp/ESOPHAGOGASTRODUODENOSCOPY (EGD), FLEXIBLE, TRANSORAL, DIAGNOSTIC performed by Phong Mojica DO at ENDOSCOPY [facility] L-/S-SPINE PARAVERTEBRAL FACET INJ,1 LEVEL 11/25/2022 L-/S-SPINE PARAVERTEBRAL FACET INJ, 1 LEVEL performed by Pb Alexander DO at [facility] L-/S-SPINE PARAVERTEBRAL FACET INJ,1 LEVEL 01/06/2023 L-/S-SPINE PARAVERTEBRAL FACET INJ, 1 LEVEL performed by Pb Alexander DO at OR [facility] L-/S-SPINE PARAVERTEBRL FACET INJ,2 LEVELS 11/25/2022 L-/S-SPINE PARAVERTEBRAL FACET INJ, 2 LEVELS performed by Pb Alexander DO at OR [facility] L-/S-SPINE PARAVERTEBRL FACET INJ,2 LEVELS 01/06/2023 L-/S-SPINE PARAVERTEBRAL FACET INJ, 2 LEVELS performed by Pb Alexander DO at OR [facility] MISCELLANEOUS ORDER ([facility] ONLY) 1998 henria repair OTHER (INFORMATION) pilonidal cyst removal OTHER (INFORMATION) repair of bilateral shoulder for bone spur and repair of torn muscles right shoulder REMOVE CATARACT, INSERT LENS PROSTH Left 06/01/2017 left EXTRACAPSULAR CATARACT REMOVAL WITH INTRAOCULAR LENS performed by Nikhil Bolton MD at OR [facility] REMOVE CATARACT, INSERT LENS PROSTH Right 06/08/2017 right EXTRACAPSULAR CATARACT REMOVAL WITH INTRAOCULAR LENS performed by Nikhil Bolton MD at OR [facility] Family History Problem Relation Age of Onset Cancer Mother colon Gastro-intestinal disorder Sister crohn's No Known Problems Father Heart disease Brother Heart disease Brother Social History Tobacco Use Smoking status: Every Day Current [...] MORNING *NEED UPDATED LABS* 90 Capsule 1 FLUoxetine HCl 20 MG Oral Capsule [...] in the morning. 30 Tablet 2 Tiotropium [place] Monohydrate 18 MCG Inhalation Capsule (Spiriva) Inhale 1 Capsule by mouth in themorning. 30 Capsule 2 Clopidogrel Bisulfate 75 MG Oral Tablet (pLAVix) Take 1 Tablet by mouth in the morning. 90 Tablet 2 metFORMIN HCl ER 500 MG Oral Tablet Extended Release 24 Hour (Glucophage XR) Take 2 Tablets by mouth in the morning. 180 Tablet 3 BUSPAR 15 MG PO TABS Take by mouth. Uses as needed ONETODuo Security STRP TEST ONCE DAILY 100 Strip 5 Nitroglycerin 0.4 MG Sublingual Tablet Sublingual (Nitrostat) Place 1 Tablet under the tongue every5 minutes as needed for Pain, Chest. up to 3 doses in 15 minutes 75 Tablet 3 Full Kit Nebulizer Set Use with Nebulizer Medication EVERY FOUR HOURS as directed. Dx Code: J44.9 1 Each 3 HYDROcodone-Acetaminophen 5-325 MG Oral Tablet Take 1 Tablet by mouth every 8 hours as needed for Pain, Severe. (Patient not taking: Reported on 07/20/2023) 90 Tablet 0 Current Facility-Administered Medications Medication Dose Route Frequency Provider Last Rate Last Admin albuterol sulfate (PROVENTIL) (2.5 MG/3ML) 0.083% inhalation solution 2.5 mg 2.5 mg Nebulizer Q4H PRN Junaid Pyle MD 2.5 mg at 07/26/18 1521 ROS: Review of Systems: See HPI for pertinent positives. All other review of systems is negative. PHYSICAL EXAMINATION BP 106/56 | Pulse 56 | Wt 89.8 kg (198 lb) | BMI 29.67 kg/m | BSA 2.08 m Body mass index is 29.67 kg/m. General: no acute distress and stated [...] Neuro: grossly normal exam Laboratory Data Review: No new data Impression: Coronary artery disease with significant two-vessel coronary artery disease and an occluded right coronary and left circumflex arteries with the only remaining artery being the LAD providing collaterals by cardiac catheterization 2005. Recent, March 2023, non STEMI with cardiac catheterization performed at [facility] revealed severe left main trunk disease [...] and continued smoking Iron deficiency anemia Plan: As mentioned above, the patient has complex vascular and cardiac disease along with adenocarcinoma of the lung and COPD from smoking. I agree with his PCP that Palliative Care should be involved withhis care. This chart was completed in part utilizing PerfectServe Speech Voice Recognition Software. Grammatical errors, random [...] of separately billed services. Warren Montoya DO Cardiology[address] [address] 07/20/2023 documented in this encounter Nursing Notes * Earle Mireles, RN - 07/20/2023 11:30 AM EDT Examination Room: room 16 Name: Walter Don Date of : (1945). Reason for Visit: for follow up Interim Hospitalization(s): denies Problems/Concerns: denies Chest Pain/SOB: always short of brath [facility] Discussed: Yes [facility] is a way you can talk to [...] Team (Late st Contact Info) Description 07/27/2023 11:00 AM EDT Office Visit Radiation Oncology, [address] [place] [address] Shawna Johnson MD [address] [place] [address] [place] [address] 07/28/2023 9:30 AM EDT Office Visit Orthopaedics [facility] [place] [address] Zander Wilkins, [address] [place] [address] 08/30/2023 9:45 AM EDT Office Visit Orthopaedics [facility] [address] [facility] [place] [address] Zander Wilkins, DO [address] [facility] [place] [address] 08/30/2023 10:20 AM EDT Office Visit Podiatry [facility] [place] [address] Bettye Herrmann, SAMM [address] [place] [address] [place] [address] 09/02/2023 11:00 AM EDT Laboratory Laboratory [address] [place] [phone] [place] [address] 09/09/2023 11:00 AM EDT Office Visit Hematology/Oncology [address] [place] [phone] Lexie Palmer CRNP [address] [place] [address] 09/16/2023 9:00 AM EDT Office Visit Cardiology, [facility] [address] [facility] [place] [address] Deisy Aguirre CRNP [address] [place] [address] 10/19/2023 11:00 AM EDT Office Visit [facility]iology, [facility] [place] [address] Deisy Aguirre CRNP [address] [place] [address] 01/19/2024 11:40 AM EDT Office Visit Family Practice [facility] [address] [employer] [place] [address] Johnnie Newby MD [address] [facility] [place] [address] Scheduled Procedures Name Priority Associated Diagnoses Date/Ti [...] Additional history exists CKD PHOS USE SMARTSET 33817 04/15/202403/20, 06/05/2022, 06/03/2021, Additional history exists Depression Screening 04/22/2024 04/22/2023 CKD HGB USE SMARTSET 93669 06/03/202406/03, 06/03/2023, 04/18/2023, Additional history exists COLONOSCOPY-EVERY [...] this encounter Medical Devices Implanted Type Area International Trade Teacher Device Identifier Shelf Expiration Date Model / Serial / Lot Lens Intraoc 24.0 - [id number] - [id number] Implanted:Qty: 1 on 06/01/2017 by Nikhil Bolton MD at OR [facility] Left: Eye BAUSCH [employer] LOMB 07/17/2021 [id number] / [id number] / [id number] Lens Intraoc 24.0 - [id number] - [id number] Implanted:Qty: 1 on 06/08/2017 by Nikhil Bolotn MD at OR [facility] Right: Eye BAUSCH & LOMB 07/17/2021 [id number] / [id number] / [id number] documented as of this encounter Visit Diagnoses Diagnosis Coronary artery disease involving klamath coronary artery of klamath heart without angina pectoris- Primary PVD (peripheral vascular disease) with claudication (HCC) Peripheral vascular disease, unspecified Moderate aortic stenosis Aortic valve disorders documented in this encounter Advance Directives Documents on File Type Date Recorded Patient Ditch Rider Expl anation Advance Directives and Livin g [...] were consensually agreed upon. Care Teams Automobile Bumper Straightener Relationship Specialty Start Date End Date Johnnie Newby MD [address] [place] [address] PCP - General Family Medicine 09/13/20 documented as of this encounter"
--- OUTSIDE RECORDS SUMMARY | 2023-12-14 20:15 | External Medical Summary | Summary of Care ---
Author Name Unknown Organization [facility] Address [address] [place] [address] Phone [phone] Care Team Providers Care Machine Fancy Stitcher Name Role Phone Johnnie Newby MD Primary Care Provider [phone] Reason for Referral * Evaluate & Treat - Unlimited Visits (Within 30 days (routine)) - Authorized Specialty Diagnoses / Procedures Referred By Treva judd Referred To Contact Hospice and Palliative Medicine / Palliative Medicine Diagnoses Symptomatic care patient Johnnie Newby MD [address] [employer] [place] [address] Referral ID Status Reason Start Date Expiration Date Visits Requested Visits Authorized [id number] Authorized Specialty Services Required 07/19/2023 999 999 Question Answer Referral Priority Within 30 days (routine) [facility] Reason for Referral: COPD Palliative Medicine To Address: Pain & Symptom Management Referral Location Office Reason for Visit * Reason Onset Date Comments Hospital Follow-Up Hospital Follow-Up 07/19/2023 Encounter Details Date Type Department Care Team (Late st Contact Info) Description 07/19/2023 11:40 AM EDT Office Visit Family [facility] [address] [address] Johnnie Newby MD [address] [place] [address] Symptomatic care patient*; Hospital discharge follow-up Allergies [...] 24 Hour (Imdur)Indications :Coronary artery disease involving hoh coronary artery without angina pectoris TAKE ONE TABLET BY MOUTH EVERY MORNING 90 Tablet 3 3 09/18/19 24 Active Apixaban 5 MG Oral [...] at bedtime. 90 Capsule 3 4 Active Budesonide 0.25 MG/2ML Inhalation Suspension (Pulmicort) Inhale 0.25 mg via nebulizer 2 times a day as needed for Dyspnea or Wheezing. 160 mL 3 4 10/31/19 24 Active Wixela Inhub 250-50 MCG/ACT Inhalation Aerosol Powder Breath Activated (Fluticasone-Salme terol) Inhale 1 Puff by mouth in the morning and 1 Puff before bedtime. 60 Each 2 4 08/24/19 24 Active Roflumilast 500 MCG Oral Tablet (Daliresp)Indicati ons:COPD, group D, by GOLD 2017 classification (HCC) Take 1 Tablet by mouth in the morning. 30 Tablet 2 4 09/08/19 24 Active Tiotropium [place] Monohydrate 18 MCG Inhalation Capsule (Spiriva) Inhale 1 Capsule by mouth in the morning. 30 Capsule 2 4 08/24/19 24 Active Full Kit Nebulizer Set [...] Pain, Severe. 90 Tablet 0 4 Active Colchicine 0.3 MG OR TABS 1 Tablet. 0 3 07/19/19 24 Discontinued metFORMIN HCl ER 500 MG Oral Tablet Extended Release 24 Hour (Glucophage XR) Take 2 Tablets by mouth in the morning. 60 Tablet 11 4 07/19/19 24 Discontinued(Re fill) Hospital, Clinic, or Other [...] tis 01/05/2014 Coronary artery disease invo lving hoh coronary artery of hoh heart without angina pectoris 11/27/2013 Tobacco abuse [...] mRNA, LNP-s, No Pre serve, 2-Dose Series (Pixel Qi) 02/25/2023,02/10/2022,07/13/2020,06/17 Pneumococcal Conjugate Vacc, 13 Valent (Prevnar) [...] below 130/80 I10 Coronary artery disease involving hoh coronary artery of hoh heart without angina pectoris I25.10 Tobacco abuse Z72.0 PTSD (post-traumatic stress disorder) F43.10 Gastroesophageal reflux disease without esophagitis K21.9 Type 2 diabetes mellitus with hemoglobin A1c goal of less than 8.0% ([facility]) E11.9 YISSEL treated with BiPAP G47.33 Peripheral arterial disease ([facility]) I73.9 Dyslipidemia E78.5 COPD, group D, by GOLD 2017 classification ([facility]) J44.9 Carotid stenosis, non-symptomatic I65.29 NSVT (nonsustained ventricular tachycardia) ([facility]) I47.29 Aortic valve stenosis I35.0 AAA (abdominal aortic aneurysm) ([facility]) I71.40 Chronic kidney disease, stage 3a ([facility]) N18.31 Malignant neoplasm of right upper lobe of lung ([facility]) C34.11 Depression with anxiety F41.8 History of cardioembolic cerebrovascular accident (CVA) Z86.73 Overweight (BMI 25.0-29.9) E66.3 Gouty arthropathy M10.9 Diabetic peripheral neuropathy ([facility]) E11.42 Diverticulosis of large intestine without hemorrhage [...] in the morning. 30 Tablet 2 Tiotropium [place] Monohydrate 18 MCG Inhalation Capsule (Spiriva) Inhale [...] Plan: DISCH MED RECON CUR MED LIS Follow up as needed. No other complaints [...] 07/20/2023 11:30 AM EDT Office Visit [facility], [facility] [place] [address] Warren Montoya, DO [address] [place] [address] 07/27/2023 11:00 AM EDT Office Visit Radiation Oncology, [address] [place] [address] Shawna Johnson MD [address] [place] [address] [place] [address] 07/28/2023 9:30 AM EDT Office Visit Orthopaedics [facility] [address] [facility] [place] [address] Zander Wilkins, DO [address] [facility] [place] [address] 08/30/2023 9:45 AM EDT Office Visit Orthopaedics [facility] [address] [facility] [place] [address] Zander Wilkins, 132 [facility] [place] [address] 08/30/2023 10:20 AM EDT Office Visit Podiatry [facility] 132 [facility] [place] [address] Bettye Herrmann, DPLiat [address] [facility] [place] [address] 09/02/2023 11:00 AM EDT Laboratory Laboratory [address] [place] [phone] [place] [address] 09/09/2023 11:00 AM EDT Office Visit Hematology/Oncology [facility] Tessie [place] [address] [place], [place] [phone] Lexie Palmer CRNP [address] [place] [address] 09/16/2023 9:00 AM EDT Office Visit Cardiology, [facility] [address] [facility] [place] [address] Deisy Aguirre CRNP [address] [place] [address] 01/19/2024 11:40 AM EDT Office Visit Family Practice [facility] [address] [place] [address] Johnnie Newby MD [address] [facility] [place] [address] Scheduled Procedures Name Priority Associated Diagnoses Date/Ti [...] Additional history exists CKD PHOS USE SMARTSET 82923 04/15/202403/20, 06/05/2022, 06/03/2021, Additional history exists Depression Screening 04/22/2024 04/22/2023 CKD HGB USE SMARTSET 28414 06/03/202406/03, 06/03/2023, 04/18/2023, Additional history exists COLONOSCOPY-EVERY [...] encounter Medical Devices Implanted Type Area Head Of Music Device Identifier Shelf Expiration Date Model / Serial / Lot Lens Intraoc 24.0 - [id number] - [id number] Implanted:Qty: 1 on 06/01/2017 by Nikhil Bolton MD at OR [facility] Left: Eye BAUSCH & LOMB 07/17/2021 [id number] / [id number] / [id number] Lens Intraoc 24.0 - [id number] - [id number] Implanted:Qty: 1 on 06/08/2017 by Nikhil Bolton MD at [facility] Right: Eye BAUSCH & LOMB 07/17/2021 [id number] / [id number] / [id number] documented as of this encounter Visit Diagnoses Diagnosis Symptomatic care patient- Primary Encounter for palliative care Hospital discharge follow-up Other follow-up examination documented in this encounter Advance Directives Documents on File Type Date Recorded Patient Supervisor Sleeping Bag Department Expl anation Advance Directives and Yu fine [...] were consensually agreed upon. Care Teams Machine Fancy Stitcher Relationship Specialty Start Date End Date Johnnie Newby MD [address] [facility] [place] [address] PCP - General Family Medicine 09/13/20 documented as of this encounter
--- OUTSIDE RECORDS SUMMARY | 2023-12-14 20:15 | External Medical Summary | Summary of Care ---
Author Name Unknown Organization [facility] Address [address] [place] [address] Phone [phone] Care Team Providers Care Rv Detailer Name Role Phone Johnnie Newby MD Primary Care Provider [phone] Encounter Details Date Type Department Care Team (Late st Contact Info) Description 07/15/2023 Population Health External Data Unspecified Department Allergies [...] than 7.0% ([facility]) TEST ONCE DAILY 100 Strip 5 03/02/2018 Active BiPAP every night at bedtime. 0 Active Vitamin B-12 1000 MCG Oral Tablet (Cyanocobalamin) Take 1 Tablet by mouth in the morning. 0 Active Isosorbide Mononitrate ER 60 MG Oral Tablet Extended Release 24 Hour (Imdur)Indications:C oronary artery disease involving [place] coronary artery without angina pectoris TAKE ONE [...] 2017 classification ([facility]) Take 1 Tablet by mouth in the morning. 30 Tablet 2 05/24/2023 4 Active Tiotropium [place] Monohydrate 18 MCG Inhalation Capsule (Spiriva) Inhale [...] tis 01/05/2014 Coronary artery disease invo lving wr[place] coronary artery of wr[place] heart without angina pectoris 11/27/2013 Tobacco abuse [...] 11:30 AM EDT Office Visit Cardiology, [facility] [address] [place] [address] Warren Montoya, DO [address] [place] [address] 07/27/2023 11:00 AM EDT Office Visit Radiation Oncology, [address] [place] [address] Shawna Johnson MD [address] [place] [address] [place] [address] 07/28/2023 9:30 AM EDT Office Visit Orthopaedics [facility] [address] [facility] [address] Zander Wilkins, DO [address] [facility] [place] [address] 08/30/2023 9:45 AM EDT Office Visit Orthopaedics [facility] [place] [address] Zander Wilkins, DO [address] [facility] [address] 08/30/2023 10:20 AM EDT Office Visit Podiatry [facility] [address] [facility] [address] [facility] [place] [address] 09/02/2023 11:00 AM EDT Laboratory Laboratory [address] [place] [phone] [address] [place] [address] 09/09/2023 11:00 AM EDT Office Visit Hematology/Oncology [facility] [place] [phone] Lexie Palmer CRNP 400 [facility] [place] [address] 09/16/2023 9:00 AM EDT Office Visit Cardiology, [facility] [address] [place] [address] Deisy Aguirre CRNP [address] [place] [address] 01/19/2024 11:40 AM EDT Office Visit Family Practice [facility] [address] [place] [address] Johnnie Newby MD [address] [place] [address] Scheduled Procedures Name Priority Associated Diagnoses Date/Ti [...] Additional history exists CKD PHOS USE SMARTSET 63634 04/15/202403/20, 06/05/2022, 06/03/2021, Additional history exists Depression Screening 04/22/2024 04/22/2023 CKD HGB USE SMARTSET 95371 06/03/202406/03, 06/03/2023, 04/18/2023, Additional history exists COLONOSCOPY-EVERY [...] encounter Medical Devices Implanted Type Area Supervisor Bonding Device Identifier Shelf Expiration Date Model / Serial / Lot Lens Intraoc 24.0 - [id number] - [id number] Implanted:Qty: 1 on 06/01/2017 by Nikhil Bolton MD at OR [facility] Left: Eye [employer]OMB 07/17/2021 [id number] / [id number] / [id number] Lens Intraoc 24.0 - [id number] - [id number] Implanted:Qty: 1 on 06/08/2017 by Nikhil Bolton MD at OR [facility] Right: Eye BAUSCH [employer] LOMB 07/17/2021 [id number] / [id number] / [id number] documented as of this encounter Advance Directives Documents on File Type Date Recorded Patient Veterinarian Laboratory Animal Care Expl oksanaion Advance Directives and Yu Watkins [...] and were consensually agreed upon. Care Teams Rv Detailer Relationship Specialty Start Date End Date Johnnie Newby MD [address] [place] [address] PCP - General Family Medicine 09/13/20 documented as of this encounter
--- OUTSIDE RECORDS SUMMARY | 2023-12-14 20:15 | External Medical Summary | Summary of Care ---
Author Name Unknown Organization [facility] Address [address] [place] [address] Phone [phone] Care Team Providers Care Mask Layout Designer Name Role Phone John Newby MD Primary Care Provider [phone] Reason for Visit * Reason Onset Date Comments Medication Refill 07/20/2023 Encounter Details Date Type Department Care Team (Late st Contact Info) Description 07/20/2023 Refill Family Practice [facility] [address] [address] John Newby MD 132 [place] [address] Allergies Active Allergy Reactions Criticality Noted Date Comments Acetaminophen 05/06/2005 headaches documented as of this encounter (statuses as of 07/21/2023) Medications Medication Sig Dispensed Refills Start Date [...] 24 Hour (Imdur)Indications: Coronary artery disease involving [place] coronary artery without angina pectoris TAKE ONE TABLET BY MOUTH EVERY MORNING 90 Tablet 3 09/18/2022 09/18/19 24 Active Apixaban 5 MG Oral Tablet (Eliquis) Take 1 Tablet by mouth in the morning and 1 Tablet before bedtime. 180 Tablet 3 12/08/2022 Active Metoprolol Succinate ER 25 MG Oral Tablet Extended Release 24 Hour (toPROL XL)Indications:SVT (supraventricular tachycardia) ([facility]),NSVT (nonsustained ventricular tachycardia) ([facility]) TAKE ONE TABLET BY MOUTH EVERY DAY 90 Tablet 3 12/09/2022 12/09/19 24 Active Atorvastatin Calcium 80 MG Oral Tablet (Lipitor) TAKE ONE TABLET BY MOUTH AT BEDTIME 90 Tablet 1 12/09/2022 12/09/19 24 Active Vitron-C 65-125 MG [...] by GOLD 2017 classification ([facility]) Take 1 Tablet by mouth in the morning. 30 Tablet 2 05/24/2023 09/08/19 24 Active Tiotropium [place] Monohydrate 18 MCG Inhalation Capsule (Spiriva) Inhale [...] symptoms resolve. 90 Tablet 0 07/21/2023 Active Colchicine 0.6 MG Oral Tablet Take 2 tablets by mouth. One hour later, take 1 tablet by mouth. Take 1 tablet by mouth once daily after until symptoms resolve. 90 Tablet 3 12/23/2022 07/20/19 24 Discontinu ed(Refill) Hospital, Clinic, or Other Facility Administered Medication Ordered Dose Route Frequency Start Date End Date Status albuterol sulfate (PROVENTIL) (2.5 MG/3ML) 0.083% inhalation solution 2.5 mgIndications:COPD, severe (HCC) 2.5 mg NEBULIZER Q4H PRN 07/08/2018 Active documented as of this encounter (statuses as of 07/21/2023) Active Problems Problem Noted Date Diagnosed Date [...] tis 01/05/2014 Coronary artery disease invo lving [place] coronary artery of [place] heart without angina pectoris 11/27/2013 Tobacco abuse 11/27/2013 HTN, goal below 130/80 03/06/2009 Overview: Modified per HTN protocol #16. documented as of this encounter (statuses as of 07/21/2023) Resolved Problems Problem Noted Date Diagnosed Date [...] as of this encounter (statuses as of 07/21/2023) Immunizations Name Administration Dates Next Due COVID-19 mRNA, LNP-s, No Pre serve, 2-Dose Series ([employer] assistant) 02/25/2023,02/10/2022,07/13/2020,06/17 Pneumococcal Conjugate Vacc, 13 Valent (Prevnar) [...] Miscellaneous Notes * Telephone Encounter - Jannette Abarca RPh - 07/21/2023 2:33 PM EDTSigned Prescriptions: Disp Refills Colchicine 0.6 MG Oral Tablet 90 Tab*0 Sig: Take 2 tablets by mouth. One hour later, take 1 tablet by mouth. Take 1 tablet by mouth once daily after until symptoms resolve.Authorizing Provider: JOHN NEWBY User: JANNETTE ABARCA * Telephone Encounter - Jannette Abarca RPh - 07/21/2023 2:32 PM EDT Rerouted remaining refills to new pharmacy as requested. Jannette Zacarias Clinical Pharmacist [facility] ([facility] (Former[facility]) [phone] 07/21/2023, 2:32 PM documented in this encounter Plan of Treatment Upcoming Encounters Date Type Department Care Team (Late st Contact Info) Description 07/27/2023 11:00 AM EDT Office Visit Radiation Oncology, [address] [place] [address] Shawna Johnson MD [address] [place] [address] 07/28/2023 9:30 AM EDT Office Visit Orthopaedics [facility] 132 [facility] [place] [address] Zander Wilkins, DO 132 [place] [place] [address] 08/25/2023 1:00 PM EDT Office Visit Palliative Medicine [facility] 200 [place] [address] Eliza Germain MD [facility] [place] [address] 08/30/2023 9:45 AM EDT Office Visit Orthopaedics [facility] 132 [facility] [place] [address] Zander Wilkins, DO [facility] [address] 08/30/2023 10:20 AM EDT Office Visit Podiatry [facility] 132 [facility] [place] [address] Jannette Herrmann DPM [address] [facility] [place] [address] 09/02/2023 11:00 AM EDT Laboratory Laboratory [address] [place] [phone] [address] [place] [address] 09/09/2023 11:00 AM EDT Office Visit Hematology/Oncology [facility] [address] [facility] [phone] Lexie Palmer CRNP [address] [place] [address] 09/16/2023 9:00 AM EDT Office Visit Cardiology, [facility] [address] [place] [address] Deisy Aguirre CRNP [address] [place] [address] 10/19/2023 11:00 AM EDT Office Visit Cardiology, [facility] [address] [place] [address] Deisy Aguirre CRNP [address] [place] [address] 01/19/2024 11:40 AM EDT Office Visit Family Practice [facility] [address] [place] [address] John Newby MD [address] [place] [address] Scheduled Procedures Name Priority Associated Diagnoses Date/Ti [...] Additional history exists CKD PHOS USE SMARTSET 05907 04/15/202403/20, 06/05/2022, 06/03/2021, Additional history exists Depression Screening 04/22/2024 04/22/2023 CKD HGB USE SMARTSET 86837 06/03/202406/03, 06/03/2023, 04/18/2023, Additional history exists COLONOSCOPY-EVERY [...] this encounter Medical Devices Implanted Type Area Nozzle Cement Sprayer Helper Device Identifier Shelf Expiration Date Model / Serial / Lot Lens Intraoc 24.0 - [id number] - [id number] Implanted:Qty: 1 on 06/01/2017 by Nikhil Bolton MD at OR [facility] Left: Eye [employer]USCH [employer] LOMB 07/17/2021 [id number] / [id number] / [id number] Lens Intraoc 24.0 - [id number] - [id number] Implanted:Qty: 1 on 06/08/2017 by Nikhil Bolton MD at OR [facility] Right: Eye BAUSCH & LOMB 07/17/2021 [id number] / [id number] / [id number] documented as of this encounter Advance Directives Documents on File Type Date Recorded Patient Belt Sander Expl 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 Care Teams Mask Layout Designer Relationship Specialty Start Date End Date John Newby MD [address] [place] [address] PCP - General Family Medicine 09/13/20 documented as of this encounter
--- OUTSIDE RECORDS SUMMARY | 2023-12-14 20:15 | External Medical Summary | Summary of Care ---
Author Name Unknown Organization [facility] Address [address] [place] [address] Phone [phone] Care Team Providers Care Mobility Engineer Name Role Phone Johnnie Newby MD Primary Care Provider [phone] Encounter Details Date Type Department Care Team (Late st Contact Info) Description 07/12/2023 Result Scan Unspecified Department <No scans attached> Allergies Active Allergy Reactions Criticality Noted Date Comments Acetaminophen 05/06/2005 headaches documented as of this encounter (statuses as of 07/14/2023) Medications Medication Sig Dispensed Refills Start Date [...] 24 Hour (Imdur)Indications:C oronary artery disease involving [place] coronary artery without angina pectoris TAKE ONE [...] 30 Tablet 2 05/24/2023 4 Active Tiotropium [place] Monohydrate 18 MCG Inhalation Capsule (Spiriva) Inhale [...] as of this encounter (statuses as of 07/14/2023) Active Problems Problem Noted Date Diagnosed Date [...] tis 01/05/2014 Coronary artery disease invo lving [place] coronary artery of [place] heart without angina pectoris 11/27/2013 Tobacco abuse 11/27/2013 HTN, goal below 130/80 03/06/2009 Overview: Modified per HTN protocol #16. documented as of this encounter (statuses as of 07/14/2023) Resolved Problems Problem Noted Date Diagnosed Date [...] as of this encounter (statuses as of 07/14/2023) Immunizations Name Administration Dates Next Due COVID-19 mRNA, LNP-s, No Pre serve, 2-Dose Series ([employer]) 02/25/2023,02/10/2022,07/13/2020,06/17 Pneumococcal Conjugate Vacc, 13 Valent (Prevnar) [...] Visit Family Practice [facility] 132 [facility] [place] [address] Johnnie Newby MD [address] [place] [address] 07/20/2023 11:30 AM EDT Office Visit Cardiology, [facility] [address] [place] [address] Warren Montoya, DO [address] [place] [address] 07/27/2023 11:00 AM EDT Office Visit Radiation Oncology, [address] [place] [address] Shawna Johnson MD [address] [place] [address] [place] [address] 07/28/2023 9:30 AM EDT Office Visit Orthopaedics [facility] [address] [place] [address] Zander Wilkins, DO [address] [place] [address] 08/30/2023 9:45 AM EDT Office Visit Orthopaedics [facility] [address] [place] [address] Zander Wilkins, DO [address] [place] [address] 08/30/2023 10:20 AM EDT Office Visit Podiatry [facility] [address] [place] [address] Bettye Herrmann, SAMM [address] [place] [address] [place] [address] 09/02/2023 11:00 AM EDT Laboratory Laboratory [address] [place] [phone] [place] [address] 09/09/2023 11:00 AM EDT Office Visit Hematology/Oncology [facility] [place] 200 [facility] [place] [phone] Lexie Palmer CRNP [facility] [place] [address] 09/16/2023 9:00 AM EDT Office Visit Cardiology, [facility] [address] [place] [address] Deisy Aguirre CRNP [address] [place] [address] Scheduled Procedures Name Priority Associated Diagnoses Date/Ti me COLONOSCOPY FLEXIBLE PROXIMA L DIAGNOSTIC Recall History of colonic polyps Health Maintenance Due Date Last Done Comments COVID-19 Vaccine ( season) 2023 03/03/2023, 02/25/2023, 02/10/2022, Additional history exists DISCUSS TOBACCO CESSATION (REFER TO SMARTSET #0517) 05/01/2023 05/01/2022, 02/13/2022 Diabetic Eye Exam 07/09/2023 [...] Additional history exists CKD PHOS USE SMARTSET 44191 04/15/202403/20, 06/05/2022, 06/03/2021, Additional history exists Depression Screening 04/22/2024 04/22/2023 CKD HGB USE SMARTSET 12318 06/03/202406/03, 06/03/2023, 04/18/2023, Additional history exists COLONOSCOPY-EVERY [...] encounter Medical Devices Implanted Type Area Senior Recruiter Device Identifier Shelf Expiration Date Model / Serial / Lot Lens Intraoc 24.0 - [id number] - [id number] Implanted:Qty: 1 on 06/01/2017 by Nikhil Bolton MD at OR [facility] Left: Eye BAUSCH [employer] LOMB 07/17/2021 [id number] / [id number] / [id number] Lens Intraoc 24.0 - [id number] - [id number] Implanted:Qty: 1 on 06/08/2017 by Nikhil Bolton MD at OR [facility] Right: Eye BAUSCH & LOMB 07/17/2021 [id number] / [id number] / [id number] documented as of this encounter Procedures Procedure Name Priority Date/Time Associated Diagnosis Comments RADIOLOGY SCANNED RESULT 07/12/2023 documented in this encounter Results * RADIOLOGY SCANNED RESULT (07/12/2023) 07/12/2023 No Physician Data Unknown DIAGNOSTIC RAD IOLOGY SERVICES documented in this encounter Advance Directives Documents on File Type Date Recorded Patient Assisted Living Associate Expl 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 Care Teams Mobility Engineer Relationship Specialty Start Date End Date Johnnie Newby MD [address] [place] [address] PCP - General Family Medicine 09/13/20 documented as of this encounter
--- OUTSIDE RECORDS SUMMARY | 2023-12-14 20:15 | External Medical Summary | Summary of Care ---
Author Name Unknown Organization [facility] Address [address] [place] [address] Phone [phone] Care Team Providers Care Flexible Babysitter Name Role Phone Johnnie Newby MD Primary Care Provider [phone] Reason for Referral * Precert (Within 10 days (routine)) - Pending Review Specialty Diagnoses / Procedures Referred By Treva judd Referred To Contact Radiology Diagnoses Malignant neoplasm of right upper lobe of lung (HCC) Procedures CT CHEST WO CONTRAST Shawna Johnson MD [address] [place] [address] [place] [address] Referral ID Status Reason Start Date Expiration Date V isits Requested Visits Authorized [id number] Pending Review 01/26/2024 999 999 Reason for Visit * Reason Comments Follow Up Encounter Details Date Type Department Care Team (Late st Contact Info) Description 07/27/2023 11:00 AM EDT Office Visit Radiation Oncology, [address] [place] [address] Shawna Johnson MD [address] [place] [address] [place] [address] Malignant neoplasm of right upper lobe of lung (HCC)* Allergies Active Allergy Reactions Criticality Noted Date Comments Acetaminophen 05/06/2005 headaches documented as of this encounter (statuses as of 07/27/2023) Medications Medication Sig Dispensed Refills Start Date [...] 24 Hour (Imdur)Indications:C oronary artery disease involving skag[place] coronary artery without angina pectoris TAKE ONE [...] 30 Tablet 2 05/24/2023 4 Active Tiotropium [place] Monohydrate 18 MCG Inhalation Capsule (Spiriva) Inhale [...] as of this encounter (statuses as of 07/27/2023) Active Problems Problem Noted Date Diagnosed Date [...] tis 01/05/2014 Coronary artery disease invo lving skagway coronary artery of sk[place] heart without angina pectoris 11/27/2013 Tobacco abuse 11/27/2013 HTN, goal below 130/80 03/06/2009 Overview: Modified per HTN protocol #16. documented as of this encounter (statuses as of 07/27/2023) Resolved Problems Problem Noted Date Diagnosed Date [...] as of this encounter (statuses as of 07/27/2023) Immunizations Name Administration Dates Next Due COVID-19 [...] Tobacco: Never Tobacco Cessation:Ready to Q uit: Yes; Counseling Given: Yes Comments:started age 7 Alcohol Use Standard Drinks/Week [...] Sign Reading Time Taken Comments Blood Pressure 111/56 07/27/2023 10:55 AM EDT Pulse 53 07/27/2023 10:55 AM EDT Temperature 36.4 C (97.5 F) 07/27/2023 10:55 AM E DT Respiratory Rate - - Oxygen Saturation 98% 07/27/2023 10:55 AM EDT Inhaled Oxygen Concentration - - Weight 88.9 kg (196 lb) 07/27/2023 10:55 AM EDT Height - - Body Mass Index 29.37 07/19/2023 11:32 AM EDT documented in this [...] as of this encounter Progress Notes * Shawna Johnson MD - 07/27/2023 11:00 AM EDT RADIATION ONCOLOGY FOLLOW-UP NOTE [facility] Name: Walter Don : 1945 Walter Don was seen in follow-up in Radiation Oncology at [facility] on 07/27/2023. REFERRING PHYSICIAN: Johnnie Newby MD SITE OF MALIGNANCY: Right Upper Lobe Lung, 1.2cm Right Lower Lobe Lung, 3.2cm HISTOPATHOLOGY: NSCLC, Adenocarcinoma, EGFR/ALK/ROS1/BRAF negative, PDL1 5% STAGE: 2 Synchronous RUL and RLL Stage I primaries, vs. M1a Stage IV CURRENT THERAPY: Clinico-radiographic Survaillance PRIOR THERAPY: 08/19/2020-08/30/2020 Definitive hypofrac stereo RT to RUL, 7000cGy in 10 fractions 08/19/2020-08/29/2020 Definitive SBRT to RLL, 5000cGy in 5 fractions DIAGNOSTIC HISTORY: 05/03/2020 CT thorax, noting Severe emphysematous changes with interval increase in size of two irregular pulmonary nodules, one measuring 13 mm in the right lung apex in the other measuring 8 mm in the left lower lobe, as above. Consider correlation with PET/CT scan for further evaluation, versus close interval follow-up with noncontrast CT chest in 3-6 months. Other stable bilateral pulmonary nodules, including a mixed solid and ground-glass nodule in the right lower, as above. 06/12/2020 Bronchoscopy and biopsy with findings of right lower lobe nodule, path NSCLC, [place] 05/29/2020 PET-CT noting Slowly increase in size of right upper lobe pulmonary nodule and right lower lobe mixed solid and ground-glass nodule with mild FDG uptake, suspicious for neoplasm. Recommend biopsy for further evaluation. No mediastinal or hilar lymphadenopathy. 07/31/2020 MRI brain, No acute intracranial abnormality or evidence of intracranial metastatic disease. INTERVAL HISTORY: Patient returns for follow up. MS in March,, managed medically told stenting too high risk Recent admission for COPD exacerbation/CAP Better since discharge Active smoker about 1.5 packs per day Current Outpatient Medications Medication Sig Dispense Refill [...] in the morning. 30 Tablet 2 Tiotropium [place] Monohydrate 18 MCG Inhalation Capsule (Spiriva) Inhale [...] 07/26/18 1521 Past Medical History: Diagnosis Date Benign neoplasm of colon 05/28/10 repeat colonoscopy in 3 months Benign neoplasm of colon 09/18/10 adenomatous-repeat colonoscopy in 6 months Benign neoplasm of colon 04/09/2011 polyps x3 , path shows adenomatous tissue repeat in 1 years BiPAP (biphasic positive airway pressure) dependence 10/07/2015 Cerebrovascular event, ill-defined, within last 8 weeks COPD with emphysema (HCC) Dyslipidemia 02/07/2019 HTN, goal below 130/80 03/06/2009 Modified per HTN protocol #16. HTN, goal to be determined Obesity, Class I, BMI 30.0-34.9 (see actual BMI) 06/04/2021 OTHER diabetes Type 2 diabetes mellitus with hemoglobin A1c goal of less than 8.0% (HCC) 10/23/2014 ICD-10 update of inactive term Social History Socioeconomic History Marital status: Tobacco [...] Father Heart disease Brother Heart disease Brother ROS- Except for what is mentioned in HPI, all others negative. ZUBROD PERFORMANCE SCALE: 2 ambulatory and capable of all self-care but unable to carry out any work activities, up and aboutmore than 50% of waking hours PHYSICAL EXAMINATION: BP 111/56 | Pulse 53 | Temp 36.4 C (97.5 F) (Infrared ) | Wt 88.9 kg (196 lb) | SpO2 98% | BMI 29.37 kg/m | BSA 2.07 m Wt Readings from Last 4 Encounters: 07/20/23 89.8 kg (198 lb) 07/19/23 89.4 kg (197 lb) 06/11/23 91 kg (200 lb 11.2 oz) 06/03/23 91 kg (200 lb 9.6 oz) Very pleasant and communicative General: alert and oriented, no apparent distress, cognition normal Speech intact, no hoarseness Skin: no visible skin lesions Eyes: conjunctiva non-icteric bilaterally Head and face: facial symmetric Lymphatics: no visible cervical adenopathy and no supraclavicular adenopathy In no distress, no wheezing, stridor Upper extremities: non-edematous bilaterally Neurologic: no focal deficits RECENT LABS: Results for orders placed or performed in visit on 12/02/20 CBC Result Value Ref Range WBC 6.37 4.00 - 10.80 K/uL RBC 4.05 (L) 4.50 - 5.25 M/uL HGB 12.2 (L) 14.0 - 16.8 g/dL HCT 37.8 (L) 40.0 - 48.4 % MCV 93.3 82.0 - 99.5 fL MCH 30.1 27.0 - 34.0 pg MCHC 32.3 32.0 - 36.0 g/dL RDW 16.6 (H) 11.5 - 15.5 % Plt 165 140 - 400 K/uL MPV 9.8 6.6 - 11.1 fL Creatinine Results: Lab Results Component Value Date/Time CREATININE - [facility] 1.7 (H) 04/18/2023 05:48 AM CREATININE - [facility] 1.7 (H) 04/17/2023 06:29 AM CREATININE - [facility] 1.6 (H) 04/16/2023 08:56 PM CREATININE - [facility] 1.2 11/30/2019 09:17 AM CREATININE - [facility] 1.2 01/16/2019 10:16 AM CREATININE - [facility] 1.2 04/01/2018 03:47 PM CREATININE, RANDOM URINE - [facility] 21 02/04/2023 04:26 PM CREATININE, RANDOM URINE - [facility] 35 01/15/2023 11:32 AM CREATININE, RANDOM URINE - [facility] 161 06/04/2021 10:41 AM CREATININE, RANDOM URINE - [facility] 162 04/04/2018 10:49 AM CREATININE, RANDOM URINE - [facility] 24 11/10/2016 08:53 AM CREATININE, RANDOM URINE - [facility] 29 10/24/2015 11:35 AM CREATININE-OUTSIDE LAB 1.20 04/28/2016 12:00 AM TSH Results: Lab Results Component Value Date/Time TSH - [facility] 3.24 04/16/2023 03:45 PM TSH - [facility] 2.00 12/17/2022 01:24 PM TSH - [facility] 2.03 07/17/2021 02:11 PM TSH - [facility] 2.07 07/17/2021 02:11 PM TSH - [facility] 1.55 10/07/2015 12:50 PM TSH - [facility] 2.17 06/05/2010 09:18 AM TSH - [facility] 1.70 05/06/2005 03:15 PM RECENT RADIOGRAPHIC IMAGING: CT CHEST WO CONTRAST Narrative: EXAM EXAM: CT CHEST WO CONTRAST DATE and TIME: 07/08/2023 10:18 am HISTORY CLINICAL INFORMATION: Lung cancer, current or r/o recurrence; Lung cancer, r/o recurrence; No known/automatically detected potential contraindications to iodinated contrast TECHNIQUE Oral Contrast: Oral contrast was not administered. IV Contrast: No IV contrast used COMPARISON 06/29/2022 CT. FINDINGS MEDIASTINUM AND LAMIN: Stable mildly enlarged mediastinal nodes. HEART: There is no pericardial effusion. LARGE AIRWAYS: Secretions in the airway. LUNGS: Emphysema. Bronchial wall thickening suggesting chronic inflammation. Right apical scarring.Redemonstration of posttreatment changes in the right lower lobe with slightly worsening consolidation when compared to previous CT on image 187 of series 10. This may be related to evolving posttreatment changes or superimposed infection. Continued follow-up recommended to exclude possibility of recurrence. A few additional stable tiny nodules in the right lower lobe. Interval increase in the size of left upper lobe nodule on image 122 of series 10 measuring 1.2 x 1.8 cm, previously 0.9 x 1 cm. Increased size of a 5 mm nodule in the left upper lobe on image 180 ofseries 10, previously measured 3 mm. A new 5 mm nodule in the left upper lobe on image 197 of series 10. Couple of additional new nodules seen. Stable 8 mm nodule in the left upper lobe on image 129 of series 10. Stable left lower lobe nodule measuring 1.1 cm on image 174 of series 10. A few additional stable nodules. PLEURA: Trace right pleural effusion. CHEST WALL/SOFT TISSUES: There is no axillary lymphadenopathy. Mild gynecomastia on right side. LINES AND DEVICES: None BONES: Degenerative osseous changes. VESSELS: Atherosclerotic changes in the aorta and coronary arteries. Stable ectasia of the ascending aorta measuring 4.1 cm. UPPER ABDOMEN: Thinning of renal cortex. Right renal cyst. Impression: IMPRESSION 1. Redemonstration of posttreatment changes in [...] nodules are stable. Attention recommended on follow-up. (In compliance with Act 112, the GLEN was contacted to invoke system generated communication of the patient's results.) ASSESSMENT: Walter Don is a 77 year old male diagnosed with Cancer Staging Malignant neoplasm of right upper lobe of lung (HCC) Staging form: Lung, AJCC 8th Edition - Clinical stage from 08/21/2020: Stage IA2 (cT1b, cN0, cM0) - Signed by Shawna Johnson MD on 08/29/2020 Patient has completed SBRT on 08/30/2020 Imaging with stable fibrotic changes and 2 treated index lesions appear to be controlled Multifocal bilateral nodular pattern and some indolent growth noted in 2 dominant nodules in the left lung, although on order of a few mm Discussed management options available in context of growing nodules, still equivocal but multifocal LPA is likely diagnosis Discussed options of continued surveillance, PET/Bx, medonc integration to discuss systemic therapy Rationale for logistics risks benefits alteratives of each approach discussed. After our meeting patient and family endorsed wanting to proceed with continued surveillance, will plan repeat CT cross sectional imaging in 6 months. Discussed smoking cessation, resources offered Health Maintenance per PCP CTCAE Version 5.0 Subacute/Late Post RT Toxicity Report: Fatigue: no Weight loss: no Local: none Bleeding: none Infection: none Dermatitis radiation: no Alopecia: none Dry mouth: no Mucositis: no Esophagitis: no Nausea: no Vomiting: no Diarrhea: no Proctitis: no Liver: Bilirubin: WNL Transaminase: WNL Heart: Cardiac Function: none Pulmonary: none/ no change Cystitis non-infective: no Kidney/Bladder: Creatinine: WNL Neurologic Function Status: 1. No neurologic symptoms, fully active at home/work without assistance Neurologic Mood: no change Sexual Dysfunction Status: 1. Not applicable/ not asked Other (specify): N/A PLAN: The patient will follow-up in Radiation Oncology in [address] thorax prior at [facility]. Follow-up with other physicians is as already scheduled. The patient will contact us in the meantime with questions or concerns. Thank you for having asked us to take part in this patient's care. I spent a total of 30 Minutes on the date of service in preparation, delivery, and documentation ofthe care provided to Walter Don excluding any time spent in the performance of separately billed services. Shawna Johnson MD Radiation Oncology documented in this encounter Nursing Notes * Sue Frausto CMA - 07/27/2023 10:51 AM EDT Patient was instructed to not get up [...] Care Team (Late st Contact Info) Description 07/28/2023 9:30 AM EDT Office Visit Orthopaedics [facility] [address] [facility] [facility] [place] [address] Zander Wilkins, DO [address] [facility] [place] [address] 08/25/2023 1:00 PM EDT Office Visit [facility] [address] [facility] [phone] [facility] Germ[facility] [address] [facility] [place] [address] 08/30/2023 9:45 AM EDT Office Visit Orthopaedics [facility] [address] [facility] [place] [address] [facility]ander Wilkins, DO [address] [facility] [place] [address] 08/30/2023 10:20 AM EDT Office Visit Podiatry [facility] [address] [facility] [place] [address] Bettye Herrmann DPM [address] [place] [address] 09/02/2023 11:00 AM EDT Laboratory Laboratory [address] [place] [phone] [address] [place] [address] 09/09/2023 11:00 AM EDT Office Visit [facility]ematology/Oncology [facility] [address] [facility] [phone] Lexie Palmer CRNP [address] [facility] [place] [address] 09/16/2023 9:00 AM EDT Office Visit Cardiology, [facility] [address] [place] [address] Deisy Aguirre CRNP [address] [place] [address] 10/19/2023 11:00 AM EDT Office Visit Cardiology, [facility] [address] [place] [address] Deisy Aguirre CRNP [address] [place] [address] 01/19/2024 11:40 AM EDT Office Visit Family Practice [facility] [address] [place] [address] Johnnie Newby MD [address] [place] [address] Scheduled Orders Name Type Priority Associated Diagnoses Orde r Schedule CT CHEST WO CONTRAST Medical Imaging Routine Malignant neoplasm of right upper lobe of lung (HCC) Expected: 01/26/2024 (Approximate), Expires: 08/25/2024 Scheduled Procedures Name Priority Associated Diagnoses Date/Ti me COLONOSCOPY FLEXIBLE PROXIMA L DIAGNOSTIC Recall History of colonic polyps Health Maintenance Due Date Last Done Comments COVID-19 Vaccine ( season) 2023 03/03/2023, 02/25/2023, 02/10/2022, Additional history exists DISCUSS TOBACCO CESSATION (REFER TO SMARTSET #5307) 05/01/2023 05/01/2022, 02/13/2022 Diabetic Eye Exam 07/09/2023 [...] Additional history exists CKD PHOS USE SMARTSET 97965 04/15/202403/20, 06/05/2022, 06/03/2021, Additional history exists CKD HGB USE SMARTSET 34619 06/03/202406/03, 06/03/2023, 04/18/2023, Additional history exists COLONOSCOPY-EVERY [...] this encounter Medical Devices Implanted Type Area Peripheral Edp Equipment Operator Device Identifier Shelf Expiration Date Model / Serial / Lot Lens Intraoc 24.0 - [id number] - [id number] Implanted:Qty: 1 on 06/01/2017 by Nikhil Bolton MD at OR [facility] Left: Eye [employer] 07/17/2021 [id number] / [id number] / [id number] Lens Intraoc 24.0 - [id number] - [id number] Implanted:Qty: 1 on 06/08/2017 by Nikhil Bolton MD at OR [facility] Right: Eye [employer]CH [employer]OMB 07/17/2021 [id number] / [id number] / [id number] documented as of this encounter Visit Diagnoses Diagnosis Malignant neoplasm of right upper lobe of lung (HCC)- Primary Malignant neoplasm of upper lobe, bronchus or lung documented in this encounter Advance Directives Documents on File Type Date Recorded Patient Security Associate Expl 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 Care Teams Flexible Babysitter Relationship Specialty Start Date End Date Johnnie Newby MD [address] [place] [address] PCP - General Family Medicine 09/13/20 documented as of this encounter"
[2023-12-14] MEDS: BUDESONIDE 0.25 MG/2 ML VIAL (PULMICORT) INH SCH (20:25)
[2023-12-14] MEDS: ALBUTEROL 0.083% NEBU SOLN 3 ML VIAL INH SCH (20:25)
[2023-12-14] MEDS: clonazePAM 0.5 MG TAB PO SCH (22:05)
[2023-12-15 07:19] LABS: Hematocrit (blood only) 40.6 % (42.0-52.0); Hemoglobin 12.8 g/dl (14.0-18.0); Mean Corpuscular Hemoglobin 29.1 pg (25.0-34.0); Mean Corpuscular Hgb Conc 31.5 g/dL (32.0-36.0); Mean Corpuscular Volume 92.3 fL (80.0-100.0); Mean Platelet Volume 9.3 fL (9.4-12.4); Platelet Count 189 K/uL (130-400); RDW Coefficient of Variation 16.3 % (11.5-14.5); RDW Standard Deviation 55.4 fL (36.4-46.3); White Blood Count 5.34 K/ul (4.8-10.8)
[2023-12-15 07:22] LABS: Estimated Average Glucose 131 mg/dl; Hemoglobin A1C 6.2 % (4.5-5.6)
[2023-12-15 07:44] LABS: BUN Creatinine Ratio 11.5 (10-20); Calcium 9.1 mg/dl (8.6-10.3); Chol HDL Ratio 5.1 (0-5); Creatinine Clr Calc Pharmacy 55.5 ml/min; Est GFR (African American) 70.8 ml/min; Est GFR (Non-African American) 61.1 ml/min; Magnesium 1.9 mg/dl (1.7-2.4); Phosphorus 3.6 mg/dl (2.5-4.9); Potassium 4.2 mmol/L (3.5-5.1)
[2023-12-15] MEDS: ROFLUMILAST 500 MCG TAB PO SCH (08:38)
[2023-12-15] MEDS: ASCORBIC ACID 500 MG TAB PO SCH (08:38)
[2023-12-15] MEDS: MULTIVITAMIN TAB PO SCH (08:39)
[2023-12-15] MEDS: PANTOprazole 40 MG TAB PO SCH (08:39)
[2023-12-15] MEDS: CLOPIDOGREL BISULFATE 75 MG TAB PO SCH (08:39)
[2023-12-15] MEDS: FERROUS SULFATE 325 MG TAB PO SCH (08:39)
[2023-12-15] MEDS: FLUTICASONE PROPIONATE NA SPR 16 GM BTL SCH (08:39)
[2023-12-15] MEDS: FLUoxetine HCL 20 MG CAP PO SCH (08:39)
[2023-12-15] MEDS: CYANOCOBALAMIN (B-12) 500 MCG TABLET PO SCH (08:39)
[2023-12-15] MEDS ORDERED: NON-FORMULARY MEDICATION (Iron,Carbonyl-Vitamin C [Vitron-C] 65 mg iron- 125 mg Tablet,Del PO SCH (09:00)
--- NOTE | 2023-12-15 09:26 | Hospitalist Progress Note ---
Date of Service December 15, 2023 Assessment & Plan (1) Occipital infarction: Plan Walter Don is an 78y/o M with PMHx of DM type II, diabetic peripheral neuropathy, dyslipidemia, COPD, YISSEL on BiPAP, history of NSVT, AAA, HTN, CAD, PAD with claudication, carotid artery stenosis, aortic valve stenosis, CKD stage III, diverticulosis, GERD, gouty arthropathy, anemia of chronic disease [baseline Hgb ~10-12], tobacco use disorder, PTSD, depression with anxiety, history of CVA [on Eliquis], history of NSTEMI [2022], adenocarcinoma of right lung s/p radiation therapy and other problems listed below who presented to the ED via EMS for evaluation of progressive weakness and was found to have a R occipital lobe subacute infarct. Generalized weakness Acute CVA, ruled out Lab work rather unremarkable. UA negative. Head CT with the following findings: 1.2 cm hypodense focus within the R occipital lobe (may reflect a subacute infarct) & 1.9 cm focus of encephalomalacia within the L parietal lobe suggestive of an old infarct. Head CTA showing a focal area of severe stenosis within the distal R vertebral artery without evidence for occlusion. Neck CTA with the following significant findings: advanced atherosclerotic alcides que within the carotid bulbs, emphysema & 6 mm indeterminate nodular opacity in the L upper lobe is unchanged from the 07/12/[address] but new from 2017. Pathologically indeterminate and may represent scarring, and a 6-month follow-up chest CT recommended. MRI brain without contrastno acute intracranial abnormality. Chronic infarct seen in right occipital lobe and focus of left parietal encephalomalacia consistent with remote infarct. PT OT eval/pleater hand eval Continue Eliquis, Plavix HTN: Hold home BP meds for now, including Lasix. History of CVA CAD & Dyslipidemia: Continue Eliquis, Plavix & atorvastatin. COPD: Chronic, stable. Continue home meds. DM Type II: Hold home agents, SSI regimen while inpatient. BSG checks ACHS. Glycemic pharmacy consult CKD Stage III: Cr 1.27, baseline Cr ~1.3-1.7 per chart review. Monitor renal function, avoid nephrotoxic meds when able. YISSEL: Continue BiPAP HS. Anemia of Chronic Disease: Hb at baseline Continue Vitron-C supplementation, monitor Hgb. Other Chronic Medical Conditions: Diabetic peripheral neuropathy, PTSD/anxiety/depression, GERD --> Continue home meds for these specific conditions. DVT Prophylaxis: On Eliquis FUR NAILER - will continue. Code Status: FULL CODE PCP: Johnnie Newby MD Disposition: Admit to PCU/Telemetry - Of note, patient was on hospice care prior to arrival. mentions he was using [facility]. Needs PT/OT eval Time spent evaluating patient, direct bedside care, chart review, placing orders, interpretation of diagnostic studies, discussion with consultants, patient, and family members, as well as other required patient management activities is 50 minutes Please note the above document was generated using voice recognition software. It may contain grammatical, syntax or spelling errors. Any formal questions or concerns about the content, text or information contained within the body of this dictation should be directly addressed to the provider for clarification Admission and Anticipated Discharge Date Admission Date: December 14, 2023 Subjective Patient seen and examined at bedside. Comfortable; not in distress. Denies fever, chills, chest pain, shortness of breath, abdominal pain or urinary symptoms. No significant overnight events Review of Systems Review of Systems: All systems reviewed & are unremarkable except as noted in Subjective Physical Exam Physical Exam: Constitutional: Alert oriented x 3; not in distress. Respiratory: normal respiratory effort, lungs clear to auscultation, no wheeze, rales, rhonchi. Normal insp/exp effort, no accessory muscle use Cardiovascular: RRR, no murmur, no edema Vessels: no JVD or carotid bruit Chest: normal inspection of chest Abdomen: normal bowel sounds, soft, nontender, no hepatosplenomegaly Musculoskeletal: no cyanosis or clubbing, extremities motor strength 5/5 Skin: no rashes, warm and dry normal turgor Neurologic: PERRL, EOMI, accommodation nl, no face palsy, no dysarthria CN's II- XI intact bilaterally and moves all extremities Psychiatric: A+Ox3, euthymic affect Results & Data Results & Data Vital Signs (Past 12 Hours) Vital Signs Temp Pulse Pulse Pulse Resp BP Pulse Ox 12/15/23 07:35 60 16 90 12/15/23 07:10 36.9 C 67 18 155/69 H 92 12/15/23 02:44 36.9 C 69 18 140/72 93 12/14/23 22:56 36.5 C 71 18 127/83 93 12/14/23 22:20 12/14/23 22:18 72 O2 Del Method 12/15/23 07:35 Room Air 12/15/23 07:10 Room Air 12/15/23 02:44 Room Air 12/14/23 22:56 Room Air 12/14/23 22:20 Room Air 12/14/23 22:18
--- NOTE | 2023-12-15 10:19 | Pharmacy Report ---
Pharmacy Glycemic Sign Off Nt - Date of Service December 15, 2023 - Assessment & Plan ASSESSMENT: * Good outpatient control per A1c of 6.2% this AM on metformin monotherapy. * Transitioned to Novolog at weight-based moderate stress estimate as an inpatient. * No insulin has thus been administered/required and BSG's have ranged 94-106 mg/dL. * CHO ratio is ordered and likely appropriate now that diet is ordered. * Pharmacy is signing off now - Dr. Clark aware. PLAN FOR INPATIENT GLYCEMIC CONTROL: No changes needed to current regimen. * No basal * Continue NovoLog per scale ACHS/Q6hrs while NPO * Goal range = 110 140 mg/dl * CF = 25 mg/dl/unit * CR = 1 unit for ever 9 g CHO consumed * Pharmacy is signing off of glycemic consult and will no longer be making adjustments to inpatient regimen. Please feel free to re-consult if needed. Thank you.
[2023-12-15 11:06] VITALS: BP 137/71; RESP 18; TEMP 98.2; O2SAT 93
--- NOTE | 2023-12-15 11:20 | Neurology Consultation ---
Date of Consultation December 15, 2023 Assessment & Plan (1) Weakness generalized: without any focality that is new to his exam. Rule out deconditioning, rule out polypharmacy, dehydration. MRI of the brain shows no new acute infarct, chronic bilateral infarcts. Plan Reviewed CTA/ CT, with areas of stenosis, prior embolic appearing stroke With his LV hypo/ akinetic areas, also given history of malignancy. Recommend to continue with Eliquis for secondary stroke prevention. Telehealth Consultation Telehealth Information Telehealth Information: I performed this visit using a real-time telehealth connection between my location and the patients location ([facility]). After connecting through interactive tele-video, patient was identified by name and date of and/or wristband check.Patient (or authorized healthcare consumer sales representative) was informed that this was a telemedicine visit and it was being conducted confidentially over secure lines. My office door was closed and no one else was present in the room with me.Patient (or authorized healthcare consumer sales representative) provided consent to proceed with the visit, expressed an under standing of privacy and security of the telemedicine visit, and gave permission to have a hospital consumer sales representative in the room in order to assist with the visit and to conduct portions of the visit, as needed. I informed the patient (or authorized healthcare consumer sales representative) that I reviewed their record and presented the opportunity for them to ask any questions regarding the visit today. The patient agreed to participate. History of Present Illness Reason for Consultation: weakness, concern for a stroke Requesting Physician: Geremias Clark MD Attending Physician: Geremias Clark MD History of Present Illness Walter Don is an 78-year-old male patient with PMH of COPD, YISSEL, on BiPAP, HTN, CAD, PAD, CKD, anemia of chronic disease, tobacco use disorder, anxiety and depression, history of right lower lobe adenocarcinoma prior history of strokes maintained on Eliquis, unsure if this was in the setting of cardioembolic source or A-fib versus history of large area of inferior posterior lateral wall motion abnormality with hypokinesis to akinesis with EF 40-45% as of June 2023. The patient presents to the emergency room reporting weakness that is generalized with poor stamina that is been happening over the past several days. Apparently infectious workup has been negative, is found to have hemoglobin of 12.8 which is on the lower side however improvement since March 2023. The patient tells me that he might have taken more than he should have his anxiety pills, he thinks his anxiety got the best of him over the past several days. He denies any visual changes any numbness or weakness on one side, he has been able to walk but he is slower than he usually is. Denies any worsening of shortness of breath abdominal pain or any swelling in his abdomen Allergies Allergy/AdvReac Type Severity Reaction Status Date / Time acetaminophen AdvReac Severe SEVERE Verified 07/12/23 14:33 HEADACHE-PER PT "BRAIN SWELLS". Home Medications Medication Instructions Recorded Confirmed Type albuterol sulfate 2.5 mg/3 mL 2.5 mg inhalation DIRECTED PRN 04/14/23 12/14/23 History (0.083 %) solution for nebulization Shortness Of Breath Or Wheezing albuterol sulfate 90 mcg/actuation 2 puff inhalation QID PRN 04/14/23 12/14/23 History aerosol inhaler (Ventolin HFA) Shortness Of Breath Or Wheezing apixaban 5 mg tablet (Eliquis) 5 mg PO BID 04/14/23 12/14/23 History atorvastatin 80 mg tablet 80 mg PO HS 04/14/23 12/14/23 History buspirone 10 mg tablet 10 - 20 mg PO BID PRN Anxiety 04/14/23 12/14/23 History clonazepam 0.5 mg tablet 0.5 mg PO HS 04/14/23 12/14/23 History colchicine 0.6 mg tablet 0.6 mg PO DIRECTED PRN GOUT 04/14/23 12/14/23 History FLARE UP cyanocobalamin (vitamin B-12) 1,000 mcg PO QAM 04/14/23 12/14/23 History 1,000 mcg tablet (Vitamin B-12) fluoxetine 20 mg capsule 60 mg PO QAM 04/14/23 12/14/23 History fluticasone propionate 50 2 spray intranasal QAM 04/14/23 12/14/23 History mcg/actuation nasal spray,suspension furosemide 40 mg tablet (Lasix) 40 mg PO QAM 04/14/23 12/14/23 History gabapentin 300 mg capsule 300 mg PO HS 04/14/23 12/14/23 History iron,carbonyl 65 mg-vitamin C 125 1 tab PO QAM 04/14/23 12/14/23 History mg tablet,delayed release (Vitron-C) isosorbide mononitrate 60 mg 60 mg PO QAM 04/14/23 12/14/23 History tablet,extended release 24 hr metoprolol succinate 25 mg 25 mg PO QAM 04/14/23 12/14/23 History tablet,extended release 24 hr mirtazapine 15 mg tablet 7.5 mg PO HS 04/14/23 12/14/23 History multivitamin 1 tab PO QAM 04/14/23 12/14/23 History omeprazole 20 mg capsule,delayed 20 mg PO QAM 04/14/23 12/14/23 History release risperidone 0.5 mg tablet 0.5 mg PO HS 04/14/23 12/14/23 History roflumilast 500 mcg tablet 500 mcg PO QAM 04/14/23 12/14/23 History budesonide 0.25 mg/2 mL suspension 0.25 mg inhalation BID 07/12/23 12/14/23 History for nebulization clopidogrel 75 mg tablet 75 mg PO QAM 07/12/23 12/14/23 History metformin 500 mg tablet,extended 500 mg PO BID 07/12/23 12/14/23 History release 24 hr Patient History Social History Smoking Status: Current every day smoker Tobacco Type: Cigarettes Cigarettes Per Day: 1.5 ppd; Do You Dip or Chew Tobacco: No; Hx Alcohol Use: No Hx Substance Use: No Preferred Language: Latvian Communication Ability: Effective Crisis Clinician Required: No Beliefs That Will Affect Care: None Current Living Situation: Spouse Feels Safe at Home: Yes Safety Concerns: Feels Safe At This Time Assistive Devices: CPAP and Walker Review of Systems Constitutional: Patient denies weight loss, fever, chills, and night sweats Eyes: Patient denies change in vision, tearing, pain, and redness ENT: Patient denies pain, bleeding, rhinorrhea, and dysphagia Cardiovascular: Patient denies chest pain, palpitation, dyspnea at rest, and dyspnea with exertion Respiratory: Patient denies shortness of breath, cough, wheezing, and productive cough GI: Patient denies reflux, pain, constipation, and diarrhea Skin: Patient denies rash, dryness, and itching Allergies/Immune System: Patient denies rhinorrhea, seasonal allergies, reaction to current MEDS, and joint swelling Endocrine: Patient denies weight loss, weight gain, temperature intolerance, and excessive thirst Neurological: All negative unless mentioned in the HPI Physical Exam General Constitutional: Appearance normally developed Head and face: normocephalic and atraumatic Eyes: no ptosis, no anisocoria, and no dysconjugate gaze Respiratory: normal effort Cardiovascular: regular rhythm and regular rate Abdomen: non distended Skin: no rashes, lesions, or ulcers noted Psychiatric: normal judgement and insight, normal mood, and normal affect NEUROLOGIC EXAMINATION: Mental Status:alert, oriented to time, place, person, normal recent memory, normal remote memory, normal attention span, normal concentration, normal language and normal fund of knowledge Cranial Nerves: CN 2 - no visual defect on confrontation and pupils round, equal, reactive to light CN 3, 4, 6 - extra-ocular movements intact and no nystagmus CN 5 - facial sensation intact CN 7 - no facial asymmetry CN 8 - intact hearing CN 9, 10 - palate symmetric, normal gag CN 11 - good shoulder shrug CN 12 - tongue midline MOTOR: Strength was at least antigravity throughout, Pronator drift was absent and There were no abnormal movements SENSATION: intact and symmetric to pinprick, light touch, vibration and joint position GAIT: Slow, steady. COORDINATION: no ataxia with finger to nose testing and heel to iverson testing REFLEXES: cannot assess over telemedicine NIH Stroke Scale: 1a. Level of Consciousness: alert = 0 1b. LOC Questions: (month, age): both correct = 0 1c. LOC Commands (open and close eyes, make fist and let go using non-paretic hand): obeys both correctly = 0 2. Best Gaze (eyes open and patient follows examiner's finger or face): normal = 0 3. Visual (visual threat or finger counting in each quadrant): no loss = 0 4. Facial Palsy (show teeth, raise eye brows and squeeze eyes shut, or grimace symmetry in a comatose patient): normal = 0 5a. Motor Arm (extend arm (palms down) to 90 degrees and score drift/movement (10 seconds) - Left: no drift = 0 5b. Motor Arm: (extend arm (palms down) to 90 degrees and score drift/movement (10 seconds) - Right: no drift = 0 6a. Motor Leg (elevate leg 30 degrees and score drift/ movement (5 seconds) - Left: no drift = 0 6b. Motor Leg (elevate leg 30 degrees and score drift/ movement (5 seconds) - Right: no drift = 0 7. Limb Ataxia (finger to nose, heel down iverson): absent = 0 8. Sensory (pin prick to face, arm, trunk and leg, compare side to side): normal = 0 9. Best Language: no aphasia = 0 10. Dysarthria (evaluate speech clarity by patient repeating listed words): normal articulation = 0 11. Extinction and Inattention: no neglect = 0 Total: 0 Results & Data Vital Signs (Past 12 Hours) Vital Signs Temp Pulse Pulse Pulse Resp BP Pulse Ox 12/15/23 11:02 36.8 C 63 18 137/71 93 12/15/23 08:00 66 12/15/23 08:00 12/15/23 07:35 60 16 90 12/15/23 07:10 36.9 C 67 18 155/69 H 92 12/15/23 02:44 36.9 C 69 18 140/72 93 O2 Del Method 12/15/23 11:02 Room Air 12/15/23 08:00 12/15/23 08:00 Room Air 12/15/23 07:35 Room Air 12/15/23 07:10 Room Air 12/15/23 02:44 Room Air Laboratory Results Laboratory Results - last 24 hr 12/14/23 12/14/23 12/14/23 11:12 18:16 20:08 WBC 5.05 RBC 4.07 L Hgb 11.6 L Hct 37.5 L MCV 92.1 MCH 28.5 MCHC 30.9 L RDW Std Deviation 56.5 H RDW Coeff of Adam 16.5 H Plt Count 172 MPV 9.5 Immature Gran % (Auto) 0.2 Neut % (Auto) 62.2 Lymph % (Auto) 26.7 [place] % (Auto) 9.3 Eos % (Auto) 0.8 Baso % (Auto) 0.8 Neut # (Auto) 3.14 Lymph # (Auto) 1.35 [place] # (Auto) 0.47 Eos # (Auto) 0.04 Baso # (Auto) 0.04 Immature Gran # (Auto) 0.01 PT 10.9 INR 1.0 APTT 25 PTT Ratio 0.9 Sodium 138 Potassium 4.2 Chloride 105 Carbon Dioxide 28 Anion Gap 5 BUN 14 Creatinine 1.27 Est Cr Clr Drug Dosing 54.2 Est GFR ( Amer) 61.4 Est GFR (Non-Af Amer) 53.0 BUN/Creatinine Ratio 11.0 Glucose 101 H POC Glucose 106 H 95 Estimat Average Glucose Hemoglobin A1c Calcium 9.1 Phosphorus Magnesium 1.9 Total Bilirubin 0.4 AST 13 ALT 9 Alkaline Phosphatase 83 Troponin I High Sens 18.4 Total Protein 6.3 Albumin 3.7 Globulin 2.6 Albumin/Globulin Ratio 1.4 Triglycerides Cholesterol LDL Cholesterol, Calc VLDL Cholesterol, Calc HDL Cholesterol Cholesterol/HDL Ratio Urine Color Urine Appearance Urine pH Ur Specific [place] Urine Protein Urine Glucose (UA) Urine Ketones Urine Blood Urine Nitrite Urine Bilirubin Urine Urobilinogen Ur Leukocyte Esterase 12/14/23 12/15/23 12/15/23 Unknown 06:52 07:09 WBC 5.34 RBC 4.40 L Hgb 12.8 L Hct 40.6 L MCV 92.3 MCH 29.1 MCHC 31.5 L RDW Std Deviation 55.4 H RDW Coeff of Adam 16.3 H Plt Count 189 MPV 9.3 L Immature Gran % (Auto) Neut % (Auto) Lymph % (Auto) [place] % (Auto) Eos % (Auto) Baso % (Auto) Neut # (Auto) Lymph # (Auto) [place] # (Auto) Eos # (Auto) Baso # (Auto) Immature Gran # (Auto) PT INR APTT PTT Ratio Sodium 140 Potassium 4.2 Chloride 107 Carbon Dioxide 27 Anion Gap 6 BUN 13 Creatinine 1.13 Est Cr Clr Drug Dosing 55.5 Est GFR ( Amer) 70.8 Est GFR (Non-Af Amer) 61.1 BUN/Creatinine Ratio 11.5 Glucose 94 POC Glucose 96 Estimat Average Glucose 131 Hemoglobin A1c 6.2 H Calcium 9.1 Phosphorus 3.6 Magnesium 1.9 Total Bilirubin AST ALT Alkaline Phosphatase Troponin I High Sens Total Protein Albumin Globulin Albumin/Globulin Ratio Triglycerides 130 Cholesterol 158 LDL Cholesterol, Calc 101 VLDL Cholesterol, Calc 26 HDL Cholesterol 31 Cholesterol/HDL Ratio 5.1 H Urine Color Yellow Urine Appearance Clear Urine pH 6.0 Ur Specific [place] 1.006 Urine Protein Negative Urine Glucose (UA) Negative Urine Ketones Negative Urine Blood Negative Urine Nitrite Negative Urine Bilirubin Negative Urine Urobilinogen Negative Ur Leukocyte Esterase Negative 12/15/23 11:05 WBC RBC Hgb Hct MCV MCH MCHC RDW Std Deviation RDW Coeff of Adam Plt Count MPV Immature Gran % (Auto) Neut % (Auto) Lymph % (Auto) [place] % (Auto) Eos % (Auto) Baso % (Auto) Neut # (Auto) Lymph # (Auto) [place] # (Auto) Eos # (Auto) Baso # (Auto) Immature Gran # (Auto) PT INR APTT PTT Ratio Sodium Potassium Chloride Carbon Dioxide Anion Gap BUN Creatinine Est Cr Clr Drug Dosing Est GFR ( Amer) Est GFR (Non-Af Amer) BUN/Creatinine Ratio Glucose POC Glucose 144 H Estimat Average Glucose Hemoglobin A1c Calcium Phosphorus Magnesium Total Bilirubin AST ALT Alkaline Phosphatase Troponin I High Sens Total Protein Albumin Globulin Albumin/Globulin Ratio Triglycerides Cholesterol LDL Cholesterol, Calc VLDL Cholesterol, Calc HDL Cholesterol Cholesterol/HDL Ratio Urine Color Urine Appearance Urine pH Ur Specific [place] Urine Protein Urine Glucose (UA) Urine Ketones Urine Blood Urine Nitrite Urine Bilirubin Urine Urobilinogen Ur Leukocyte Esterase Diagnostic Findings Head CT 12/14/23 11:00 CT OF THE HEAD WITHOUT CONTRAST CLINICAL HISTORY: neuro deficit, acute stroke suspected COMPARISON STUDY: Head CT November 19, 2005. MRA of the head November 20, 2005. TECHNIQUE: Helical axial images of the head were obtained without IV contrast. Automated exposure control was utilized for the study. A dose lowering technique was utilized adhering to the principles of ALARA. FINDINGS: No acute intracranial hemorrhage, midline shift or mass effect is present. The ventricular system is unremarkable. White matter hypodensity suggests small vessel disease. A small linear lucency within the left external capsule favors an old infarct. A 1.9 cm focus of encephalomalacia within the left parietal lobe favors an old infarct. There 1.2 cm hypodense focus within the right occipital lobe on image 16 of 32. IMPRESSION: 1. No acute intracranial hemorrhage or mass effect. 2. 1.2 cm hypodense focus within the right occipital lobe. This may reflect a subacute infarct. 3. 1.9 cm focus of encephalomalacia within the left parietal lobe suggestive of an old infarct. ACT 112: Negative or not required by law. Electronically signed by: Alden Isidro M.D. 12/14/2023 2:11 PM Head CTA 12/14/23 11:00 HEAD CTA HISTORY: neuro deficit, acute stroke suspected TECHNIQUE: Multiaxial CT images of the head were performed both before and after the intravenous administration of contrast to evaluate the major cerebral vessels. 3D/MIP images were also obtained. Sagittal and coronal reformats were reviewed. A dose lowering technique was utilized adhering to the principles of ALARA. COMPARISON: Brain MRA 11/20/2005. FINDINGS: Scattered areas of calcified plaque within the bile carotid siphons resulting in mild multifocal narrowing. Scattered calcified plaque within the dominant distal left vertebral artery and hypoplastic right vertebral artery. This results in severe focal stenosis within the distal intracranial right vertebral artery on image 38. No evidence for occlusion. The major dural venous sinuses are patent. The basilar artery is widely patent. There is no significant stenosis, occlusion, or aneurysm seen within the bilateral ACAs, MCAs, or clip riveter. IMPRESSION: 1. There is no significant stenosis, occlusion, or aneurysm seen within the bilateral ACAs, MCAs, or clip riveter. 2. Focal area of severe stenosis within the distal right vertebral artery without evidence for occlusion. ACT 112: Negative or not required by law. Electronically signed by: Keyur Neumann M.D. 12/14/2023 2:39 PM Neck CTA 12/14/23 11:00 CT ANGIOGRAM OF THE NECK CLINICAL HISTORY: Neurological deficit. Strokelike symptoms. COMPARISON STUDY: Chest CT dated 07/12/2023. TECHNIQUE: Following the IV administration of 120 of Optiray 320, CT angiogram of the neck was performed from the aortic arch to the skull base. Images are reviewed in the axial, sagittal, and coronal planes. 3-D MIPS images are created and assessed. IV contrast was administered without complication. All measurements were calculated based on NASCET criteria. A dose lowering technique was utilized adhering to the principles of ALARA. CT DOSE: 1164.82 mGy.cm FINDINGS: Thoracic aorta: There is atherosclerotic calcification of the thoracic aorta. Visualized portions of the thoracic aorta are normal in caliber. The aortic arch demonstrates standard 3-vessel anatomy. Right carotid arterial system: The right common carotid artery is widely patent. There is advanced atherosclerotic plaque in the carotid bulb. This causes less than 50% stenosis at the origin of the right internal carotid artery. The remainder of the right internal carotid artery is widely patent, as is the right external carotid artery. Left carotid arterial system: The left common carotid artery is widely patent, as are the left internal and external carotid arteries. Advanced atherosclerotic plaque is seen in the carotid bulb. Vertebral arteries: The vertebral arteries are patent bilaterally noting mild left-sided dominance. Subclavian arteries: Widely patent bilaterally. Jugular veins: Widely patent bilaterally. Brain parenchyma: The visualized brain parenchyma the skull base is within normal limits. Lung apices: Emphysematous change is noted. A calcified granuloma is seen in the right upper lobe. Apical scarring is observed. A 6 mm nodular opacity left apex is again seen on image #58. Soft tissues: The visualized pharyngeal soft tissues are normal in appearance n oting angiographic phase technique. The oropharyngeal airway appears widely patent. The salivary and thyroid glands are normal in appearance. No cervical lymphadenopathy is seen. Skeletal structures: The skeletal structures are osteopenic. The visualized calvarium at the skull base appears intact. The imaged cervical spine is maintained noting multilevel spondylosis. Sinuses and mastoids: The visualized paranasal sinuses are clear. The mastoid air cells are well pneumatized. IMPRESSION: 1. Advanced atherosclerotic plaque is seen in the carotid bulbs. This causes less than 50% stenosis at the origin of the right internal carotid artery. 2. There is no evidence of hemodynamically significant carotid stenosis in the neck. 3. The vertebral arteries are patent bilaterally. 4. Emphysema. 5. A 6 mm indeterminate nodular opacity in the left upper lobe is unchanged from the 07/12/[address] but new from 2017. This is pathologically indeterminate and may represent scarring, and a 6-month follow-up chest CT is recommended for reassessment. ACT 112: Negative or not required by law. Brain MRI 12/14/23 16:03 MRI OF THE BRAIN WITHOUT IV CONTRAST CLINICAL HISTORY: Possible subacute infarct seen by CT. Neurological deficit. COMPARISON STUDY: CT of the brain dated 12/14/2023. TECHNIQUE: MRI of the brain was performed utilizing various T1 and T2-weighted sequences in the axial, sagittal, and coronal planes. IV contrast was not administered for this examination. The examination is degraded by motion artifact. FINDINGS: Brain parenchyma: There is age-related involutional change noting mild to moderate subcortical and periventricular microangiopathic disease. A focus of left parietal encephalomalacia is consistent with a remote infarct. There is an additional small chronic right occipital lobe infarct. A chronic lacunar infarct is noted in the left basal ganglia. There is no hemorrhage or mass effect. There is no restricted diffusion to suggest acute ischemia. Steele-white matter differentiation is preserved. No extra-axial fluid collection is seen. The cerebellar tonsils are normal in configuration. Ventricles, sulci, and cisterns: Prominent secondary to involutional change. Pituitary and sella: Partially empty sella is incidentally noted. Intracranial vasculature: Normal flow voids are maintained at the skull base. Orbits: The bony orbits are grossly intact. Orbital contents are normal in appearance noting bilateral ocular lens implants. Sinuses and mastoids: Clear. Calvarium: Unremarkable. Cervical cord: Partially visualized cervical spinal cord is normal in morphology and signal intensity. IMPRESSION: 1. No acute intracranial abnormality is identified. 2. Chronic infarcts as above. ACT 112: Negative or not required by law. Electronically signed by: Sacha Wood M.D. 12/14/2023 6:54 PM Medications Administered Home Medications Medication Instructions Recorded Confirmed Last Taken albuterol sulfate 2.5 mg/3 mL 2.5 mg inhalation DIRECTED PRN 04/14/23 12/14/23 Unknown (0.083 %) solution for nebulization Shortness Of Breath Or Wheezing albuterol sulfate 90 mcg/actuation 2 puff inhalation QID PRN 04/14/23 12/14/23 Unknown aerosol inhaler (Ventolin HFA) Shortness Of Breath Or Wheezing apixaban 5 mg tablet (Eliquis) 5 mg PO BID 04/14/23 12/14/23 04/14/23 atorvastatin 80 mg tablet 80 mg PO HS 04/14/23 12/14/23 04/14/23 buspirone 10 mg tablet 10 - 20 mg PO BID PRN Anxiety 04/14/23 12/14/23 Unknown clonazepam 0.5 mg tablet 0.5 mg PO HS 04/14/23 12/14/23 Unknown colchicine 0.6 mg tablet 0.6 mg PO DIRECTED PRN GOUT 04/14/23 12/14/23 Unknown FLARE UP cyanocobalamin (vitamin B-12) 1,000 mcg PO QAM 04/14/23 12/14/23 04/14/23 1,000 mcg tablet (Vitamin B-12) fluoxetine 20 mg capsule 60 mg PO QAM 04/14/23 12/14/23 04/14/23 fluticasone propionate 50 2 spray intranasal QAM 04/14/23 12/14/23 04/14/23 mcg/actuation nasal spray,suspension furosemide 40 mg tablet (Lasix) 40 mg PO QAM 04/14/23 12/14/23 04/14/23 gabapentin 300 mg capsule 300 mg PO 04/14/23 12/14/23 04/14/23 iron,carbonyl 65 mg-vitamin C 125 1 tab PO QA 04/14/23 12/14/23 04/14/23 mg tablet,delayed release (Vitron-C) isosorbide mononitrate 60 mg 60 mg PO QA 04/14/23 12/14/23 04/14/23 tablet,extended release 24 hr metoprolol succinate 25 mg 25 mg PO QA 04/14/23 12/14/23 04/14/23 tablet,extended release 24 hr mirtazapine 15 mg tablet 7.5 mg PO 04/14/23 12/14/23 04/14/23 multivitamin 1 tab PO QA 04/14/23 12/14/23 04/14/23 omeprazole 20 mg capsule,delayed 20 mg PO [facility] 04/14/23 12/14/23 04/14/23 release risperidone 0.5 mg tablet 0.5 mg PO 04/14/23 12/14/23 04/14/23 roflumilast 500 mcg tablet 500 mcg PO [facility] 04/14/23 12/14/23 04/14/23 budesonide 0.25 mg/2 mL suspension 0.25 mg inhalation BID 07/12/23 12/14/23 Unknown for nebulization clopidogrel 75 mg tablet 75 mg PO [facility] 07/12/23 12/14/23 Unknown metformin 500 mg tablet,extended 500 mg PO BID 07/12/23 12/14/23 Unknown release 24 hr Active Medications Generic Name Dose Route Start Last Admin Trade Name Massimoq PRN Reason Stop Dose Admin Albuterol 2.5 mg 12/14/23 19:00 12/15/23 07:33 Albuterol 0.083% Nebu Soln 3 Ml Vial INH 01/13/24 18:59 2.5 mg BIDR AGUSTIN Administration Protocol Apixaban 5 mg 12/14/23 21:00 12/15/23 08:39 Apixaban 5 Mg Tablet PO 01/13/24 20:59 5 mg BID AGUSTIN Administration Ascorbic Acid 250 mg 12/15/23 09:00 12/15/23 08:38 Ascorbic Acid 500 Mg Tab PO 01/14/24 08:59 250 mg QAM AGUSTIN Administration Atorvastatin Calcium 80 mg 12/14/23 21:00 12/14/23 20:05 Atorvastatin 40 Mg Tab PO 01/13/24 20:59 80 mg HS AGUSTIN Administration Budesonide 0.25 mg 12/14/23 19:00 12/15/23 07:35 Budesonide 0.25 Mg/2 Ml Vial (Pulmicort) INH 01/13/24 18:59 0.25 mg BIDR AGUSTIN Administration Clonazepam 0.5 mg 12/14/23 22:00 12/14/23 22:05 Clonazepam 0.5 Mg Tab PO 01/13/24 21:59 0.5 mg HSZ AGUSTIN Administration Clopidogrel Bisulfate 75 mg 12/15/23 09:00 12/15/23 08:39 Clopidogrel Bisulfate 75 Mg Tab PO 01/14/24 08:59 75 mg QAM AGUSTIN Administration Cyanocobalamin 1,000 mcg 12/15/23 09:00 12/15/23 08:39 Cyanocobalamin (B-12) 500 Mcg Tablet PO 01/14/24 08:59 1,000 mcg QAM AGUSTIN Administration Ferrous Sulfate 325 mg 12/15/23 09:00 12/15/23 08:39 Ferrous Sulfate 325 Mg Tab PO 01/14/24 08:59 325 mg QAM AGUSTIN Administration Fluoxetine HCl 60 mg 12/15/23 09:00 12/15/23 08:39 Fluoxetine Hcl 20 Mg Cap PO 01/14/24 08:59 60 mg QAM AGUSTIN Administration Fluticasone Propionate 2 sprays 12/15/23 09:00 12/15/23 08:39 Fluticasone Propionate Na Spr 16 Gm Btl NA 01/14/24 08:59 2 sprays QAM AGUSTIN Administration Gabapentin 300 mg 12/14/23 21:00 12/14/23 20:06 Gabapentin 300 Mg Cap PO 01/13/24 20:59 300 mg HS AGUSTIN Administration Insulin Aspart 0 units 12/14/23 18:26 12/15/23 08:39 Insulin Aspart Per Unit Charge SC 01/13/24 18:25 Not Given ACHS AGUSTIN Mirtazapine 7.5 mg 12/14/23 21:00 12/14/23 20:07 Mirtazapine Tab 15 Mg Tab PO 01/13/24 20:59 7.5 mg HS AGUSTIN Administration Multivitamins 1 tab 12/15/23 09:00 12/15/23 08:39 Multivitamin Tab PO 01/14/24 08:59 1 tab QAM AGUSTIN Administration Pantoprazole Sodium 40 mg 12/15/23 09:00 12/15/23 08:39 Pantoprazole 40 Mg Tab PO 01/14/24 08:59 40 mg QAM AGUSTIN Administration Risperidone 0.5 mg 12/14/23 21:00 12/14/23 20:08 Risperidone 0.5 Mg Tablet PO 01/13/24 20:59 0.5 mg HS AGUSTIN Administration Roflumilast 500 mcg 12/15/23 09:00 12/15/23 08:38 Roflumilast 500 Mcg Tab PO 01/14/24 08:59 500 mcg QAM AGUSTIN Administration
[2023-12-15 12:42] VITALS: PULSE 67
--- NOTE | 2023-12-15 13:46 | Discharge Summary ---
Date of Service December 15, 2023 Admission HPI Per Admitting Provider Walter Don is an 78y/o M with PMHx of DM type II, diabetic peripheral neuropathy, dyslipidemia, COPD, YISSEL on BiPAP, history of NSVT, AAA, HTN, CAD, PAD with claudication, carotid artery stenosis, aortic valve stenosis, CKD stage III, diverticulosis, GERD, gouty arthropathy, anemia of chronic disease [baseline Hgb ~10-12], tobacco use disorder, PTSD, depression with anxiety, history of CVA [on Eliquis], history of NSTEMI [2022], adenocarcinoma of right lung s/p radiation therapy and other problems listed below who presented to the ED via EMS for evaluation of progressive weakness. History obtained from emilianae nt, at bedside and associated chart review. notes that the patient has become progressively weaker since Wednesday. She has also noticed that he has been slurring his speech intermittently along with episodes of drooling from his mouth. He has been very unsteady on his feet at home. Uses a walker at baseline, however mentions that he now has significant difficulty even standing up to use his walker - which started mostly on Wednesday. Patient reports that he feels confused and has been experiencing on/off headaches since Wednesday. Of note, patient was on hospice care prior to arrival. mentions he was using [facility]. Patient smokes 2ppd - has been smoking since age 7. No alcohol or recreational drug use. Admission Exam Per Admitting Provider GENERAL: Alert and oriented x3. NAD, on RA. HEENT: No pallor, no icterus. Pupils equal, round and reactive to light. Oral mucosa moist. NECK: No JVD, no neck masses. HEART: S1 and S2 heard. Regular rate and rhythm. No murmur, no gallop. RESPIRATORY SYSTEM: Normal AP diameter. No accessory muscle use. No wheezing, no crackles. ABDOMEN: Soft, bowel sounds present, nontender, no distention. Umbilical hernia noted/nontender. CENTRAL NERVOUS SYSTEM: No facial droop. Speech is clear. Obeys simple commands. Moves extremities. Power b/l extremities equal and 5/5. EXTREMITIES: No edema, no erythema seen. ble chronic skin changes noted. Principal Diagnosis Slurred speech, acute CVA ruled ou Discharge Exam Constitutional: Alert oriented x 3; not in distress. Respiratory: normal respiratory effort, lungs clear to auscultation, no wheeze, rales, rhonchi. Normal insp/exp effort, no accessory muscle use Cardiovascular: RRR, no murmur, no edema Vessels: no JVD or carotid bruit Chest: normal inspection of chest Abdomen: normal bowel sounds, soft, nontender, no hepatosplenomegaly Musculoskeletal: no cyanosis or clubbing, extremities motor strength 5/5 Skin: no rashes, warm and dry normal turgor Neurologic: PERRL, EOMI, accommodation nl, no face palsy, no dysarthria CN's II- XI intact bilaterally and moves all extremities Psychiatric: A+Ox3, euthymic affect Discharge Data Allergies Allergy/AdvReac Type Severity Reaction Status Date / Time acetaminophen AdvReac Severe SEVERE Verified 07/12/23 14:33 HEADACHE-PER PT "BRAIN SWELLS". Consultations 12/14/23 14:57 ED Decision to Admit Stat 12/14/23 16:00 Consult Neurology Routine Ordered Studies 12/14/23 11:00 CT angio head w con Stat CT angio neck with con Stat CT head/brain wo con Stat 12/14/23 16:03 MRI Brain [MR brain wo con] Stat Hospital Course (1) Occipital infarction: Korin Don is an 78y/o M with PMHx of DM type II, diabetic peripheral neuropathy, dyslipidemia, COPD, YISSEL on BiPAP, history of NSVT, AAA, HTN, CAD, PAD with claudication, carotid artery stenosis, aortic valve stenosis, CKD stage III, diverticulosis, GERD, gouty arthropathy, anemia of chronic disease [baseline Hgb ~10-12], tobacco use disorder, PTSD, depression with anxiety, history of CVA [on Eliquis], history of NSTEMI [2022], adenocarcinoma of right lung s/p radiation therapy presented to the ED via EMS for evaluation of progressive weakness. Generalized weakness Acute CVA, ruled out Lab work rather unremarkable. UA negative. Head CT with the following findings: 1.2 cm hypodense focus within the R occipital lobe (may reflect a subacute infarct) & 1.9 cm focus of encephalomalacia within the L parietal lobe suggestive of an old infarct. Head CTA showing a focal area of severe stenosis within the distal R vertebral artery without evidence for occlusion. Neck CTA with the following significant findings: advanced atherosclerotic plaque within the carotid bulbs, emphysema & 6 mm indeterminate nodular opacity in the L upper lobe is unchanged from the 07/12/[address] but new from 2017. Pathologically indeterminate and may represent scarring, and a 6-month follow-up chest CT recommended. MRI brain without contrastno acute intracranial abnormality. Chronic infarct seen in right occipital lobe and focus of left parietal encephalomalacia consistent with remote infarct. Neurology consultation was done; patient recommended to continue Eliquis. Patient reported he is at baseline; no focal neurological deficits were present. He reported history of PTSD while being in the hospital and requested to be discharged. Discussed with patient's ; patient was discharged home back on hospice care. Please note the above document was generated using voice recognition software. It may contain grammatical, syntax or spelling errors. Any formal questions or concerns about the content, text or information contained within the body of this dictation should be directly addressed to the provider for clarification Total Time Total Time Spent Total Time Spent (In Minutes): 35 Total Time Includes: Examination of the Patient, Discharge Planning, Medication Reconciliation, Communication With Other Providers and Other Discharge Plan Discharge Items Patient Disposition: Hospice - Home Reason For Visit: R [employer] Discharge Diagnosis: Slurring of speech, CVA ruled out Activity: Resume your previous activity Non-emergency contact: Primary Care Provider Call non-emergency contact if: you have any medication questions and your symptoms worsen Follow-up/Referrals: Johnnie Newby MD [Primary Care Provider] - Diet: Heart Healthy Addtl Attending Provider Instructions: You were admitted to the hospital due to concern for stroke. MRI of the brain did not show any acute stroke. Please continue to take your medication as before. Pending Studies at Discharge: No Stand-Alone Forms: [facility] Medications and DC Order Prescriptions: Continued multivitamin Tablet 1 tab PO QAM furosemide [Lasix] 40 mg Tablet 40 mg PO QAM atorvastatin 80 mg Tablet 80 mg PO HS albuterol sulfate 2.5 mg /3 mL (0.083 %) Solution For Nebulization 2.5 mg INHALATION DIRECTED PRN (Reason: Shortness Of Breath Or Wheezing) clonazepam 0.5 mg Tablet 0.5 mg PO HS cyanocobalamin (vitamin B-12) [Vitamin B-12] 1,000 mcg Tablet 1,000 mcg PO QAM isosorbide mononitrate 60 mg Tablet Extended Release 24 Hr 60 mg PO QAM buspirone 10 mg tablet 10 - 20 mg PO BID PRN (Reason: Anxiety) gabapentin 300 mg Capsule 300 mg PO HS omeprazole 20 mg Capsule,Delayed Release(Dr/Ec) 20 mg PO QAM mirtazapine 15 mg Tablet 7.5 mg PO HS metoprolol succinate 25 mg Tablet Extended Release 24 Hr 25 mg PO QAM albuterol sulfate [Ventolin HFA] 90 mcg/actuation Hfa Aerosol Inhaler 2 puff INHALATION QID PRN (Reason: Shortness Of Breath Or Wheezing) colchicine 0.6 mg Tablet 0.6 mg PO DIRECTED PRN (Reason: GOUT FLARE UP) Rx Instructions: TAKE 2 TABLET, 1 HR LATER, TAKE 1 TABLET, THEN 1 TAB DAILY AFTER UNTIL SYMPTOMS RESOLVE. fluoxetine 20 mg Capsule 60 mg PO QAM fluticasone propionate 50 mcg/actuation Carpenter,Suspension 2 spray INTRANASAL QAM risperidone 0.5 mg Tablet 0.5 mg PO HS roflumilast 500 mcg Tablet 500 mcg PO QAM Eliquis 5 mg tablet 5 mg PO BID Vitron-C 65 mg iron- 125 mg Tablet,Delayed Release (Dr/Ec) 1 tab PO QAM clopidogrel 75 mg tablet 75 mg PO QAM budesonide 0.25 mg/2 mL suspension for nebulization 0.25 mg inhalation BID metformin 500 mg tablet extended release 24 hr 500 mg PO BID Discharge Orders: Discharge Order (Routine); Ordered 12/15/23 Ordered By: Geremias Pryor/Other Patient Handouts: Managing Type 2 Diabetes Admission Data Admit Date/Time: 12/14/23 16:00 Attending Provider: Geremias Clark Admit Provider: Devon Mckeon Primary Care Provider: Johnnie Newby Other Providers: Grisel Peralta; Devon Mckeon Other Interventions: Discharge Summary Assessment (RN) Last Done: 12/15/23 12:38
--- NOTE | 2023-12-16 06:37 | Electrocardiogram Report ---
Test Reason : Blood Pressure : */* mmHG Vent. Rate : 61 BPM Atrial Rate : 61 BPM P-R Int : 252 ms QRS Dur : 92 ms QT Int : 394 ms P-R-T Axes : 94 -24 251 degrees QTcB Int : 396 ms Sinus rhythm with 1st degree A-V block Nonspecific ST and T wave abnormality Abnormal ECG When compared with ECG of 12-Jul-2023 11:22, Premature ventricular complexes are no longer Present Premature atrial complexes are no longer Present Nonspecific T wave abnormality now evident in Inferior leads Nonspecific T wave abnormality, worse in Lateral leads Confirmed by Dwaine Reynaga ([id number]) on 12/16/2023 6:37:02 AM Referred By: REFERRED SELF Confirmed By: Dwaine Reynaga
== END 2023-12-15 13:38 | disposition hospice, home (50) | DRG 93 ==
LOC: ED 10:50 → SUATTDRO 16:00 → 2S 16:00